=== PATIENT | female | born 1940 ===

== ENCOUNTER 2016-11-04 03:01 | Inpatient (IN) | payer MEDICARE ==
[2016-11-04 03:01] VITALS: BMI 22.1
[2016-11-04] MEDS ORDERED: Sodium Chloride 0.9% 250 ML IV STA (03:19)
[2016-11-04] MEDS ORDERED: Piperacillin/Tazobact 3.375 GM in Sodium Chloride 0.9% 100 ML IVPB STA (03:27)
[2016-11-04] MEDS ORDERED: Gentamicin 80mg/50ml NS 50 ML IVPB STA (03:27)
[2016-11-04] MEDS ORDERED: Piperacillin/Tazobact 3.375 gm Inj IVPB ONE (03:31)
[2016-11-04 03:36] LABS: VENOUS BLOOD GAS BASE EXCESS 5.9 mmol/L (0.0-2.0); VENOUS BLOOD GAS PCO2 39 mmHg (40-60); VENOUS BLOOD PH 7.49 (7.32-7.43)
[2016-11-04 04:06] LABS: CHLORIDE 99 mmol/L (98-107)
[2016-11-04 04:07] LABS: POTASSIUM 4.3 MMOL/L (3.6-5.0); SODIUM 140 mmol/l (132-148)
--- NOTE | 2016-11-04 04:07 | CP.PCM.CON ---
History of Present Illness - History of Present Illness History of Present Illness: Attending: Joana Rossi MD Nephrology: Dr Benedict Chief complaint: Fever/AMS HPI: The Hx is obtained from the patient and her don.76 years old female with hx of Dementia, Diverticulitis, with Permacath at the right chest and a recent placed A-v Fistula at the left forearm for ESRD on Hemodialysis M W F is brought to the ED by her son because of elevated body temperature, vomiting, worsening of her confusion. She refers no coughing, No chest pain, palpitations , Abdominal pain , diarrhea, She does urinate but no dysuria. She attended Dialysis on the day Prior to this admission. In the ED she had a Temperature of 102.9F and a HR of 107/min. The Lactate was 2.3 PMH: HTN; Diverticulitis; ESRD on HD M ; Migraine; Alzheimer's disease; HLD; Nephrolithiasis PSH: appendectomy; Tonsillectomy, 08/28/16 right upper chest wall Permacath placement; A-V fistula 10/12/16 at left forearm placement; hysterectomy SH; Denies Smoking; No alcohol; No illegal drug use; Live with son FH: No known family hx Allergies: NKDA Review of Systems - Review of Systems Systems not reviewed;Unavailable: Dementia, Altered Mental Status Review of Systems: review f system is limited because the patient suffers from dementia. - Constitutional Constitutional: Fever. absent: Anorexia, Chills, Fatigue - EENT Eyes: Requires Corrective Lenses. absent: Blurred Vision, Diplopia, Photophobia , Sees Flashes Ears: absent: Decreased Hearing, Ear Discharge, Tinnitus Nose/Mouth/Throat: absent: Epistaxis, Nasal Congestion, Nasal Discharge, Sinus Pain, Sinus Pressure, Sore Throat - Cardiovascular Cardiovascular: absent: Chest Pain, Dyspnea, Edema - Respiratory Respiratory: absent: Cough, Dyspnea, Wheezing, Stridor, Chest Congestion - Gastrointestinal Gastrointestinal: Vomiting. absent: Abdominal Pain, Constipation, Diarrhea - Genitourinary Genitourinary: absent: Dysuria, Flank Pain, Pyuria, Urinary Frequency - Musculoskeletal Musculoskeletal: Back Pain. absent: Muscle Cramps, Muscle Weakness - Neurological Neurological: absent: Dizziness, Focal Weakness, Vertigo Additional comments: Apparent pain to the left posterior auricular region; - Psychiatric Psychiatric: absent: Anxiety, Depression, Panic Attacks - Endocrine Endocrine: absent: Palpitations, Polydipsia - Hematologic/Lymphatic Hematologic: absent: Easy Bleeding, Easy Bruising Past Patient History - Infectious Disease Hx of Infectious Diseases: None - Tetanus Immunizations Tetanus Immunization: Unknown - Past Medical History & Family History Past Medical History?: Yes - Past Social History Smoking Status: Never Smoked Chewing Tobacco Use: No Cigar Use: No Alcohol: None Drugs: Denies Home Situation {Lives}: With Family - CARDIAC Hx Cardiac Disorders: Yes Hx Hypercholesterolemia: Yes Hx Hypertension: Yes - PULMONARY Hx Respiratory Disorders: No - NEUROLOGICAL Hx Neurological Disorder: Yes Hx Alzheimer's Disease: Yes Hx Migraine: Yes - HEENT Hx HEENT Problems: Yes Other/Comment: wears eye glasses. - RENAL Hx Chronic Kidney Disease: Yes Hx Kidney Stones: Yes - ENDOCRINE/METABOLIC Hx Endocrine Disorders: No - HEMATOLOGICAL/ONCOLOGICAL Hx Blood Disorders: Yes Hx AIDS: No Hx Anemia: Yes Hx Human Immunodeficiency Virus (HIV): No - INTEGUMENTARY Hx Dermatological Problems: No - MUSCULOSKELETAL/RHEUMATOLOGICAL Hx Musculoskeletal Disorders: Yes Hx Falls: Yes (2013) - GASTROINTESTINAL Hx Gastrointestinal Disorders: Yes Hx Diverticulitis: Yes - GENITOURINARY/GYNECOLOGICAL Hx Genitourinary Disorders: No - PSYCHIATRIC Hx Psychophysiologic Disorder: No Hx Emotional Abuse: No Hx Physical Abuse: No Hx Substance Use: No - SURGICAL HISTORY Hx Surgeries: Yes Hx Abdominal Aortic Aneurysm Repair: No Hx Appendectomy: Yes Hx Hysterectomy: Yes Hx Tonsillectomy: Yes Hx Vascular Access Device: Yes (PERMA CATH ) - ANESTHESIA Hx Anesthesia: Yes Hx Anesthesia Reactions: No Hx Malignant Hyperthermia: No Meds Allergies/Adverse Reactions: Allergies Allergy/AdvReac Type Severity Reaction Status Date / Time No Known Allergies Allergy Verified 11/04/16 03:07 - Medications Medications: Current Medications Vancomycin HCl 1 gm/ Sodium (Chloride) 250 mls @ 166.667 mls/hr IVPB STAT STA Stop: 11/04/16 04:56 Piperacillin Sod/Tazobactam (Sod 3.375 gm/ Sodium Chloride) 100 mls @ 100 mls/ hr IVPB STAT STA Stop: 11/04/16 04:26 Last Admin: 11/04/16 03:42 Dose: 100 mls/hr Gentamicin Sulfate/Sodium Chloride (Gentamicin 80mg/50ml Ns) 50 mls @ 50 mls/ hr IVPB STAT STA Stop: 11/04/16 04:26 Physical Exam - Constitutional Appears: No Acute Distress - Head Exam Head Exam: ATRAUMATIC, NORMAL INSPECTION, NORMOCEPHALIC Additional comments: holds the left back of neck constantly but refers no pain on palpation. - Eye Exam Eye Exam: EOMI Additional comments: Pupils 1mm reacting sluggish to light. - ENT Exam ENT Exam: Mucous Membranes Dry, Normal Exam. absent: Normal External Ear Exam, Normal Oropharynx Additional comments: Upper dentures in place. - Neck Exam Neck exam: Positive for: Full Rom. Negative for: Lymphadenopathy, Tenderness, Thyromegaly - Respiratory Exam Respiratory Exam: Clear to Auscultation Bilateral. absent: Rales, Rhonchi, Wheezes - Cardiovascular Exam Cardiovascular Exam: REGULAR RHYTHM, RRR, +S1, +S2. absent: Gallop, JVD - GI/Abdominal Exam GI & Abdominal Exam: Normal Bowel Sounds, Soft. absent: Mass, Organomegaly, Tenderness - Rectal Exam Rectal Exam: Deferred - Extremities Exam Extremities exam: Positive for: full ROM, normal inspection. Negative for: joint swelling, pedal edema - Back Exam Back exam: NORMAL INSPECTION Additional comments: Pain at the Thoraco-Lumbar spine while lying in bed, No Localization of pain on palpation - Neurological Exam Neurological exam: Alert, CN II-XII Intact, Oriented x3, Reflexes Normal - Psychiatric Exam Psychiatric exam: Normal Affect, Normal Mood - Skin Skin Exam: Dry, Intact, Warm Results - Vital Signs Recent Vital Signs: Last Vital Signs Temp 102.9 F H 11/04/16 03:45 Pulse 107 H 11/04/16 03:07 Resp 18 11/04/16 03:07 BP 185/80 H 11/04/16 03:07 Pulse Ox 99 11/04/16 03:07 - Labs Result Diagrams: 11/04/16 03:45 11/04/16 03:45 Labs: Laboratory Results - last 24 hr 11/04/16 03:32 pO2 49 VBG pH 7.49 H VBG pCO2 39 L VBG HCO3 29.3 VBG Total CO2 30.9 H VBG O2 Sat (Calc) 91.7 H VBG Base Excess 5.9 H VBG Potassium 4.2 Sodium 135.0 Chloride 102.0 Glucose 88 Lactate 2.3 H FiO2 21.0 Venous Blood Potassium 4.2 - Imaging and Cardiology CT scan - head Status: Image reviewed by me Additional comment: No bleed nor mass seen. Assessment & Plan - Assessment and Plan (Free Text) Assessment: #. Sepsis with etiology being Dialysis access vs Urinary tract #. AMS #. HTN uncontrolled #. ESRD On HD #. Back pain Plan: 76 years old female with hx of Permacath at the right chest and a recent placed A-v Fistula at the left forearm for ESRD on Hemodialysis is brought to the ED by her son because of elevated body temperature, vomiting,worsening of her confusion. No coughing, chest pain, palpitations, Abdominal pain , diarrhea , dysuria. She attended Dialysis on the day Prior to this admission. #. Sepsis with etiology being Dialysis access vs Urinary tract. Temperature in ED was 102.9F an da HR of 107/min. The lactic Acid was 2.3 - Consult ID Dr Hamilton - Patient received Vancomycin/ Gentamycin and Zosyn in the ED. Continue with Zosyn IV Q12hrs and Vancomycin on Dialysis days - follow blood and urine cultures - procalcitonin level #. AMS Due to worsening Dementia and Toxic encephalopathy - Treat sepsis #. HTN uncontrolled - Norvasc/ trandil/ Zestril/Apresoline - follow blood pressures #. ESRD On HD - Consult Dr Benedict for HD #. Back pain. consider Renal US as pte has Hx of Nephrolithiasis #. DVT prophylaxis with SCD #. Code Status Full - Date & Time Date: 11/04/16 Time: 04:07
[2016-11-04 04:09] LABS: ALB/GLOB RATIO 1.4 (1.0-2.1); ALKALINE PHOSPHATASE 99 U/L (38-126); ALT/SGPT 21 U/L (9-52); AST/SGOT 28 U/L (14-36); BILIRUBIN,TOTAL 0.6 mg/dl (0.2-1.3); BLOOD UREA NITROGEN 27 mg/dl (7-17); CARBON DIOXIDE 28 mmol/L (22-30); GFR AFRICAN-AMERICAN 21; GLUCOSE,RANDOM 88 mg/dL (65-105); TOTAL PROTEIN 7.3 G/DL (6.3-8.2)
[2016-11-04 04:10] LABS: CALCIUM 9.7 mg/dL (8.4-10.2); LIPASE 204 U/L (23-300)
[2016-11-04 04:11] LABS: BASO # 0.1 K/uL (0.0-0.2); BASO % 0.5 % (0.0-2.0); EOS # 0.1 K/uL (0.0-0.7); EOS % 0.9 % (0.0-4.0); HEMATOCRIT 38.9 % (34.0-47.0); LYMPH # 0.4 K/uL (1.0-4.3); LYMPH % 3.7 % (20.0-40.0); MEAN CELL VOLUME 87.7 fl (81.0-99.0); MEAN CORPUSCULAR HEMOGLOBIN 28.9 pg (27.0-31.0); MEAN PLATELET VOLUME 10.5 fl (7.2-11.7); MONO # 0.6 K/uL (0.0-0.8); MONO % 5.9 % (0.0-10.0); NEUT # 9.2 K/uL (1.8-7.0); RED CELL DISTRIBUTION WIDTH 14.3 % (11.5-14.5); WHITE BLOOD COUNT 10.3 K/uL (4.8-10.8)
[2016-11-04 04:12] LABS: PLATELET COUNT 81 K/uL (130-400)
[2016-11-04 04:15] LABS: PARTIAL THROMBOPLASTIN TIME 26.6 SECONDS (23.3-32.5)
--- NOTE | 2016-11-04 04:18 | ED PDOC ---
HPI: General Adult Time Seen by Provider: 11/04/16 03:03 Chief Complaint (Nursing): Altered Mental Status Chief Complaint (Provider): Fever History Per: Patient, Family (son) History/Exam Limitations: no limitations Onset/Duration Of Symptoms: Hrs (x1 hour) Have you had recent travel within the past 21 days to any of the following countries: [place], [place], [place] or [place]?: No Current Symptoms Are (Timing): Still Present Severity: Moderate Additional Complaint(s): Saba Cohen is a 76 year female, accompanied by her son, with a past medical history of hypertension, end stage renal disease, diverticulosis, and Alzheimer's disease, who presents to the emergency department via EMS for the evaluation of a fever, that the patient has been experiencing for one hour. Patient has had multiple dialysis graft surgeries in the past and currently has a dialysis catheter inserted to the right side of her anterior chest wall, which she reports pruritic symptoms to. Associated chills, nausea, and (x1) non- bloody/bilious vomiting is currently present. Of note, patient had her normal dialysis treatment yesterday and is scheduled for followups every Sunday, Sunday, and . PMD: Dr. Guzman Moss Past Medical History Reviewed: Historical Data, Nursing Documentation, Vital Signs Vital Signs: Last Vital Signs Temp 102.9 F H 11/04/16 03:45 Pulse 107 H 11/04/16 03:07 Resp 18 11/04/16 03:07 BP 185/80 H 11/04/16 03:07 Pulse Ox 99 11/04/16 04:24 - Medical History PMH: Alzheimer's Disease, Anemia, Diverticulitis, HTN, Hypercholesterolemia, Kidney Stones, Migraine, End Stage Renal Disease, Chronic Kidney Disease Denies: HIV - Surgical History Surgical History: Appendectomy, Tonsillectomy Other surgeries: Multiple Dialysis Graft Surgeries - Family History Family History: States: Hypertension - Social History Current smoker - smoking cessation education provided: No Ex-Smoker (has not smoked in the last 12 months): No Alcohol: None Drugs: Denies - Immunization History Hx Tetanus Toxoid Vaccination: No Hx Influenza Vaccination: No Hx Pneumococcal Vaccination: No - Home Medications Home Medications: Ambulatory Orders Medication Instructions Recorded Aspirin [Ecotrin] 81 mg PO DAILY 08/16/16 Atorvastatin [Lipitor] 20 mg PO DAILY 08/16/16 Calcitriol [Rocaltrol] 0.25 mcg PO DAILY 08/16/16 Calcium Acetate [Phoslo] 667 mg PO BID 08/16/16 Donepezil [Aricept] 10 mg PO DAILY 08/16/16 Labetalol [Trandate] 100 mg PO BID 08/16/16 Lisinopril [Zestril] 5 mg PO DAILY 08/16/16 Memantine [Namenda] 5 mg PO DAILY 08/16/16 Vitamin B Complex/Vit C/Folic 1 tab PO DAILY 08/16/16 [Nephro-Valentino] amLODIPine [Norvasc] 10 mg PO DAILY 08/16/16 hydrALAZINE [Apresoline] 50 mg PO TID 08/16/16 Prednisone [Deltasone] 20 mg PO TID #18 tablet 08/29/16 hydrOXYzine HCl [Atarax] 25 mg PO TID #60 tab 08/29/16 - Allergies Allergies/Adverse Reactions: Allergies Allergy/AdvReac Type Severity Reaction Status Date / Time No Known Allergies Allergy Verified 11/04/16 03:07 Review of Systems ROS Statement: Except As Marked, All Systems Reviewed And Found Negative Constitutional: Positive for: Fever, Chills Gastrointestinal: Positive for: Nausea, Vomiting. Negative for: Hematochezia, Hematemesis Physical Exam - Reviewed Nursing Documentation Reviewed: Yes Vital Signs Reviewed: Yes - Physical Exam Appears: Positive for: Non-toxic, No Acute Distress Head Exam: Positive for: ATRAUMATIC, NORMOCEPHALIC Skin: Positive for: Normal Color, Warm, Dry Eye Exam: Positive for: Normal appearance, EOMI, PERRL Neck: Positive for: Normal, Painless ROM Cardiovascular/Chest: Positive for: Chest Non Tender (dialysis catheter inserted to anterior chest wall, erythematous and pruritic symptoms to site of catheterization), Tachycardia, Other (hypertensive). Negative for: Regular Rate , Rhythm Respiratory: Positive for: Normal Breath Sounds. Negative for: Respiratory Distress Gastrointestinal/Abdominal: Positive for: Normal Exam, Soft. Negative for: Tenderness Back: Positive for: Normal Inspection. Negative for: L CVA Tenderness, R CVA Tenderness Extremity: Positive for: Normal ROM. Negative for: Tenderness, Swelling Neurologic/Psych: Positive for: Alert, Oriented - Laboratory Results Result Diagrams: 11/04/16 03:45 04/22/17 03:45 - ECG O2 Sat by Pulse Oximetry: 99 (RA) Pulse Ox Interpretation: Normal - Critical Care Total Time (In Min): 60 Medical Decision Making Medical Decision Makin:03 Initial Impression: 76 year old female with a setting of known dialysis, cellulitic appearance at site of catheterization. Initial Plan: * CT Head w/o Contrast * CXR * EKG * Venous Blood Gas Shock Panel * CBC * CMP * PT/PTT * Troponin I * Accucheck * Lactic Acid, Plasma * Lipase * Blood Culture * Urine Dip * Urinalysis * Urine Culture * Influenza A/B * Gentamicin 80mg/50ml NS 50 ml IVPB * Sodium Chloride 0.9% 250 ml IV, 250 mls/hr * Acetaminophen 650 mg PO * Vancomycin 1 gm * Zosyn 3.375 gm * Ondansetron 3 mg IV * Infectious Disease Consult Routine * Call ID Consult [id number] Lactate level is at 2.3, activated code sepsis. 03:52 Dr. Hamilton concurs with the antibiotics choice and will consult on patient. 03:[address] Okeefe about ICU placement. Case discussed with J Carlos Huertas Nurse Practitioner. 04:45 Labs reviewed, significant elevated BUN and creatinine; however, this is baseline for the patient due to her end stage renal disease. 04:50 Upon provider reevaluation patient is stable for admission and requires further treatment in the emergency department at this time. Patient will be admitted under J Carlos Huertas, Nurse Practitioner. Counseling was provided and all questions were answered regarding diagnosis. Patient is in agreement with provider's admission plan. Clinical Impression: Sepsis, End Stage Renal Disease, Anterior Chest Wall Cellulitis, condition is guarded. Scribe Attestation: Documented by El Mccarthy, acting as a scribe for Scotty Floyd MD. Provider Scribe Attestation: All medical record entries made by the Scribe were at my direction and personally dictated by me. I have reviewed the chart and agree that the record accurately reflects my personal performance of the history, physical exam, medical decision making, and the department course for this patient. I have also personally directed, reviewed, and agree with the discharge instructions and disposition. Disposition - Clinical Impression Clinical Impression: Sepsis, End stage renal disease, Cellulitis of chest wall - Patient ED Disposition Is Patient to be Admitted: Yes - Disposition Disposition Time: 04:50 Condition: FAIR
[2016-11-04] MEDS ORDERED: Gentamicin 80 mg/2mL Inj. ONE (04:57)
[2016-11-04 05:01] LABS: NEUTROPHIL 94 % (42-75); TOTAL CELLS COUNTED 100
--- NOTE | 2016-11-04 06:22 | CT ---
EXAM: CT Head Without Intravenous Contrast CLINICAL HISTORY: 76 years old, female; Pain; Headache; Tension TECHNIQUE: Axial computed tomography images of the head/brain without intravenous contrast. This CT exam was performed using one or more of the following dose reduction techniques: automated exposure control, adjustment of the mA and/or kV according to patient size, and/or use of iterative reconstruction technique. Coronal and sagittal reformatted images were created and reviewed. EXAM DATE/TIME: 11/04/2016 4:01 AM COMPARISON: No relevant prior studies available. FINDINGS: LIMITATIONS: Exam is limited by significant streak/motion artifact. BRAIN: Focal area of low density is seen in the right basal ganglia, which has an appearance most compatible with an old/chronic lacunar infarct. Physiologic basal ganglia calcification. Areas of hypodensity in the white matter bilaterally, nonspecific in appearance, but most likely representing moderate chronic small vessel ischemic changes. Diffuse, age-related cortical atrophy and ventriculomegaly. No definite acute abnormality identified. No definite acute hemorrhage seen within the brain. No definite acute extra-axial fluid collections visualized. No evidence of significant mass effect within the brain. VENTRICLES: See above. BONES/JOINTS: No acute fractures or other acute bony abnormality noted. SOFT TISSUES: No acute abnormality of the visualized soft tissues is seen. SINUSES: Visualized paranasal sinuses appear clear. MASTOID AIR CELLS: Mastoid air cells appear clear. IMPRESSION: - No definite acute findings seen within the brain. Exam is limited by motion artifact, however. - See above for remaining findings.
[2016-11-04 06:31] LABS: MEAN CELL VOLUME 88.6 fl (81.0-99.0); MEAN CORPUSCULAR HEMOGLOBIN 28.7 pg (27.0-31.0); MEAN CORPUSCULAR HGB CONC 32.4 g/dL (33.0-37.0); RED CELL DISTRIBUTION WIDTH 14.2 % (11.5-14.5); WHITE BLOOD COUNT 13.9 K/uL (4.8-10.8)
--- NOTE | 2016-11-04 08:44 | CP.CCUPN ---
CCU Subjective - Physician Review Events Since Last Encounter (Free Text): 11/04/16 08:42 Patient awake, no distress, no hypotension, move all extremities, follow simple commands, events reviewed CCU Objective - Vital Signs / Intake & Output Vital Signs (Last 4 hours): Vital Signs Temp Pulse Pulse Resp BP Pulse Ox 11/04/16 05:47 99.3 F 96 H 96 H 20 128/65 94 L 11/04/16 05:24 100.2 F H 100 H 20 130/57 L 11/04/16 05:00 99 11/04/16 05:00 100.2 F H 100 H 20 130/57 L 95 11/04/16 04:45 100.2 F H Intake and Output (Last 8hrs): Intake & Output 11/03/16 11/04/16 11/04/16 22:59 06:59 14:59 Intake Total 350 Balance 350 Intake: Intake, Piggyback 250 Oral 100 - Physical Exam Head: Positive for: Atraumatic, Normocephalic Pupils: Positive for: PERRL Extroacular Muscles: Positive for: EOMI Conjunctiva: Positive for: Normal Ears: Positive for: Normal Mouth: Positive for: Moist Mucous Membranes Pharnyx: Positive for: Normal Nose (External): Positive for: Atraumatic Neck: Positive for: Normal Range of Motion Respiratory/Chest: Positive for: Clear to Auscultation Cardiovascular: Positive for: Regular Rate and Rhythm Abdomen: Positive for: Normal Bowel Sounds Upper Extremity: Positive for: Normal Inspection Lower Extremity: Positive for: Normal Inspection Neurological: Positive for: Other (awake, alert, move all extremities) - Medications Active Medications: Active Medications Generic Name Dose Route Start Last Admin Trade Name Freq PRN Reason Stop Dose Admin Acetaminophen 650 mg 11/04/16 06:20 11/04/16 07:42 Tylenol 325mg Tab PO 650 mg Q6 PRN Administration Pain, moderate (4-7) Alprazolam 0.5 mg 11/04/16 06:08 Xanax PO TID PRN Anxiety Amlodipine Besylate 5 mg 11/04/16 09:00 Norvasc PO DAILY [facility] Aspirin 81 mg 11/04/16 09:00 Ecotrin PO DAILY [facility] Atorvastatin Calcium 20 mg 11/04/16 09:00 Lipitor PO DAILY [facility] Calcitriol 0.25 mcg 11/06/16 09:00 Rocaltrol PO MWF [facility] Calcium Acetate 1,334 mg 11/04/16 09:00 Phoslo PO TID [facility] Donepezil HCl 10 mg 11/04/16 09:00 Aricept PO DAILY [facility] Hydralazine HCl 25 mg 11/04/16 09:00 Apresoline PO BID [facility] Vancomycin HCl 1 gm/ Sodium 250 mls @ 125 mls/hr 11/06/16 09:00 Chloride IVPB MWF [facility] Piperacillin Sod/Tazobactam 100 mls @ 100 mls/hr 11/04/16 21:00 Sod 2.25 gm/ Sodium Chloride IVPB Q12 [facility] Labetalol HCl 100 mg 11/04/16 09:00 Trandate PO BID [facility] Lisinopril 5 mg 11/04/16 09:00 Zestril PO DAILY [facility] Mirtazapine 7.5 mg 11/04/16 22:00 Remeron PO HS [facility] Ondansetron HCl 4 mg 11/04/16 06:20 Zofran Inj IVP Q6 PRN Nausea/Vomiting Vitamin B Complex/Vit C/Folic Acid 1 tab 11/04/16 09:00 Nephro-Valentino PO DAILY [facility] - Patient Studies Lab Studies: Lab Studies 11/04/16 11/04/16 11/04/16 Range/Units 06:25 03:45 03:40 WBC 13.9 H 10.3 (4.8-10.8) K/uL RBC 4.18 4.43 (3.80-5.20) Mil/uL Hgb 12.0 12.8 D (12.0-16.0) g/dL Hct 37.0 38.9 (34.0-47.0) % MCV 88.6 87.7 (81.0-99.0) fl MCH 28.7 28.9 (27.0-31.0) pg MCHC 32.4 L 33.0 (33.0-37.0) g/dL RDW 14.2 14.3 (11.5-14.5) % Plt Count 86 L 81 L D (130-400) K/uL MPV 10.5 (7.2-11.7) fl Neut % (Auto) 89.0 H (50.0-75.0) % Lymph % (Auto) 3.7 L (20.0-40.0) % [place] % (Auto) 5.9 (0.0-10.0) % Eos % (Auto) 0.9 (0.0-4.0) % Baso % (Auto) 0.5 (0.0-2.0) % Neut # 9.2 H (1.8-7.0) K/uL Lymph # 0.4 L (1.0-4.3) K/uL [place] # 0.6 (0.0-0.8) K/uL Eos # 0.1 (0.0-0.7) K/uL Baso # 0.1 (0.0-0.2) K/uL Neutrophils % (Manual) 94 H (42-75) % Lymphocytes % (Manual) 3 L (20-50) % Monocytes % (Manual) 3 (0-10) % Platelet Estimate Decreased L (NORMAL) PT 10.2 (9.6-11.2) SECONDS INR 0.98 (0.92-1.08) APTT 26.6 (23.3-32.5) SECONDS pO2 (30-55) mm/Hg VBG pH (7.32-7.43) VBG pCO2 (40-60) mmHg VBG HCO3 mmol/L VBG Total CO2 (22-28) mmol/L VBG O2 Sat (Calc) (40-65) % VBG Base Excess (0.0-2.0) mmol/L VBG Potassium (3.6-5.2) mmol/L Glucose (65-105) mg/dL Lactate (0.7-2.1) mmol/L FiO2 % Sodium 140 (132-148) mmol/l Potassium 4.3 (3.6-5.0) MMOL/L Chloride 99 (98-107) mmol/L Carbon Dioxide 28 (22-30) mmol/L Anion Gap 17 (10-20) BUN 27 H (7-17) mg/dl Creatinine 2.7 H (0.7-1.2) mg/dL Est GFR ( Amer) 21 Est GFR (Non-Af Amer) 17 Random Glucose 88 (65-105) mg/dL Lactic Acid 1.0 (0.7-2.1) MMOL/L Calcium 9.7 (8.4-10.2) mg/dL Total Bilirubin 0.6 (0.2-1.3) mg/dl AST 28 (14-36) U/L ALT 21 (9-52) U/L Alkaline Phosphatase 99 (38-126) U/L Troponin I < 0.0120 (0.00-0.120) ng/mL Total Protein 7.3 (6.3-8.2) G/DL Albumin 4.2 (3.5-5.0) g/dL Globulin 3.1 (2.2-3.9) gm/dL Albumin/Globulin Ratio 1.4 (1.0-2.1) Lipase 204 (23-300) U/L Venous Blood Potassium (3.6-5.2) mmol/L Influenza Typ A,B (EIA) Negative for flu a/b (NEGATIVE) 11/04/16 Range/Units 03:32 WBC (4.8-10.8) K/uL RBC (3.80-5.20) Mil/uL Hgb (12.0-16.0) g/dL Hct (34.0-47.0) % MCV (81.0-99.0) fl MCH (27.0-31.0) pg MCHC (33.0-37.0) g/dL RDW (11.5-14.5) % Plt Count (130-400) K/uL MPV (7.2-11.7) fl Neut % (Auto) (50.0-75.0) % Lymph % (Auto) (20.0-40.0) % [place] % (Auto) (0.0-10.0) % Eos % (Auto) (0.0-4.0) % Baso % (Auto) (0.0-2.0) % Neut # (1.8-7.0) K/uL Lymph # (1.0-4.3) K/uL [place] # (0.0-0.8) K/uL Eos # (0.0-0.7) K/uL Baso # (0.0-0.2) K/uL Neutrophils % (Manual) (42-75) % Lymphocytes % (Manual) (20-50) % Monocytes % (Manual) (0-10) % Platelet Estimate (NORMAL) PT (9.6-11.2) SECONDS INR (0.92-1.08) APTT (23.3-32.5) SECONDS pO2 49 (30-55) mm/Hg VBG pH 7.49 H (7.32-7.43) VBG pCO2 39 L (40-60) mmHg VBG HCO3 29.3 mmol/L VBG Total CO2 30.9 H (22-28) mmol/L VBG O2 Sat (Calc) 91.7 H (40-65) % VBG Base Excess 5.9 H (0.0-2.0) mmol/L VBG Potassium 4.2 (3.6-5.2) mmol/L Glucose 88 (65-105) mg/dL Lactate 2.3 H (0.7-2.1) mmol/L FiO2 21.0 % Sodium 135.0 (132-148) mmol/l Potassium (3.6-5.0) MMOL/L Chloride 102.0 (98-107) mmol/L Carbon Dioxide (22-30) mmol/L Anion Gap (10-20) BUN (7-17) mg/dl Creatinine (0.7-1.2) mg/dL Est GFR ( Amer) Est GFR (Non-Af Amer) Random Glucose (65-105) mg/dL Lactic Acid (0.7-2.1) MMOL/L Calcium (8.4-10.2) mg/dL Total Bilirubin (0.2-1.3) mg/dl AST (14-36) U/L ALT (9-52) U/L Alkaline Phosphatase (38-126) U/L Troponin I (0.00-0.120) ng/mL Total Protein (6.3-8.2) G/DL Albumin (3.5-5.0) g/dL Globulin (2.2-3.9) gm/dL Albumin/Globulin Ratio (1.0-2.1) Lipase (23-300) U/L Venous Blood Potassium 4.2 (3.6-5.2) mmol/L Influenza Typ A,B (EIA) (NEGATIVE) Laboratory Results - last 24 hr 11/04/16 11/04/16 11/04/16 03:32 03:40 03:45 WBC 10.3 RBC 4.43 Hgb 12.8 D Hct 38.9 MCV 87.7 MCH 28.9 MCHC 33.0 RDW 14.3 Plt Count 81 L D MPV 10.5 Neut % (Auto) 89.0 H Lymph % (Auto) 3.7 L [place] % (Auto) 5.9 Eos % (Auto) 0.9 Baso % (Auto) 0.5 Neut # 9.2 H Lymph # 0.4 L [place] # 0.6 Eos # 0.1 Baso # 0.1 Neutrophils % (Manual) 94 H Lymphocytes % (Manual) 3 L Monocytes % (Manual) 3 Platelet Estimate Decreased L PT 10.2 INR 0.98 APTT 26.6 pO2 49 VBG pH 7.49 H VBG pCO2 39 L VBG HCO3 29.3 VBG Total CO2 30.9 H VBG O2 Sat (Calc) 91.7 H VBG Base Excess 5.9 H VBG Potassium 4.2 Sodium 135.0 140 Chloride 102.0 99 Glucose 88 Lactate 2.3 H FiO2 21.0 Potassium 4.3 Carbon Dioxide 28 Anion Gap 17 BUN 27 H Creatinine 2.7 H Est GFR ( Amer) 21 Est GFR (Non-Af Amer) 17 Random Glucose 88 Lactic Acid Calcium 9.7 Total Bilirubin 0.6 AST 28 ALT 21 Alkaline Phosphatase 99 Troponin I < 0.0120 Total Protein 7.3 Albumin 4.2 Globulin 3.1 Albumin/Globulin Ratio 1.4 Lipase 204 Venous Blood Potassium 4.2 Influenza Typ A,B (EIA) Negative for flu a/b 11/04/16 06:25 WBC 13.9 H RBC 4.18 Hgb 12.0 Hct 37.0 MCV 88.6 MCH 28.7 MCHC 32.4 L RDW 14.2 Plt Count 86 L MPV Neut % (Auto) Lymph % (Auto) [place] % (Auto) Eos % (Auto) Baso % (Auto) Neut # Lymph # [place] # Eos # Baso # Neutrophils % (Manual) Lymphocytes % (Manual) Monocytes % (Manual) Platelet Estimate PT INR APTT pO2 VBG pH VBG pCO2 VBG HCO3 VBG Total CO2 VBG O2 Sat (Calc) VBG Base Excess VBG Potassium Sodium Chloride Glucose Lactate FiO2 Potassium Carbon Dioxide Anion Gap BUN Creatinine Est GFR ( Amer) Est GFR (Non-Af Amer) Random Glucose Lactic Acid 1.0 Calcium Total Bilirubin AST ALT Alkaline Phosphatase Troponin I Total Protein Albumin Globulin Albumin/Globulin Ratio Lipase Venous Blood Potassium Influenza Typ A,B (EIA) Fingerstick Blood Sugar Results: 87 Critical Care Progress Note - Nutrition Nutrition: Nutrition Category Date Time Status Renal Diet [DIET] Diets 11/04/16 Breakfast Active Assessment/Plan - Assessment and Plan (Free Text) Assessment: A/P ?sepsis unclear etiology, ESRD on dialysis, HTN, AMS, dementia - Continue antibiotics - ID consult follow up - Follow up cultures - Dialysis as per renal
--- NOTE | 2016-11-04 08:52 | CP.PCM.HP ---
History of Present Illness - History of Present Illness History of Present Illness: pt presents for chest wall cellulitis, ?? dialysis access cellulitis and sepsis. c/o itchiness to site. no f/c, n/v/d. has 1x episode of n/v yesterday. bw anoted. + lactate level. vss. nephro-duong, ID-estelle. daughter aat bedside. Present on Admission - Present on Admission Any Indicators Present on Admission: No Review of Systems - Gastrointestinal Gastrointestinal: As Per HPI, Nausea, Vomiting - Integumentary Integumentary: As Per HPI, Erythema Past Patient History - Infectious Disease Hx of Infectious Diseases: None - Tetanus Immunizations Tetanus Immunization: Unknown - Past Medical History & Family History Past Medical History?: Yes - Past Social History Smoking Status: Never Smoked Chewing Tobacco Use: No Cigar Use: No Alcohol: None Drugs: Denies Home Situation {Lives}: With Family - CARDIAC Hx Cardiac Disorders: Yes Hx Hypercholesterolemia: Yes Hx Hypertension: Yes - PULMONARY Hx Respiratory Disorders: No - NEUROLOGICAL Hx Neurological Disorder: Yes Hx Alzheimer's Disease: Yes Hx Migraine: Yes - HEENT Hx HEENT Problems: Yes Other/Comment: wears eye glasses. - RENAL Hx Chronic Kidney Disease: Yes Hx Kidney Stones: Yes - ENDOCRINE/METABOLIC Hx Endocrine Disorders: No - HEMATOLOGICAL/ONCOLOGICAL Hx Blood Disorders: Yes Hx AIDS: No Hx Anemia: Yes Hx Human Immunodeficiency Virus (HIV): No - INTEGUMENTARY Hx Dermatological Problems: No - MUSCULOSKELETAL/RHEUMATOLOGICAL Hx Musculoskeletal Disorders: Yes Hx Falls: Yes (2013) - GASTROINTESTINAL Hx Gastrointestinal Disorders: Yes Hx Diverticulitis: Yes - GENITOURINARY/GYNECOLOGICAL Hx Genitourinary Disorders: No - PSYCHIATRIC Hx Psychophysiologic Disorder: No Hx Emotional Abuse: No Hx Physical Abuse: No Hx Substance Use: No - SURGICAL HISTORY Hx Surgeries: Yes Hx Abdominal Aortic Aneurysm Repair: No Hx Appendectomy: Yes Hx Hysterectomy: Yes Hx Tonsillectomy: Yes Hx Vascular Access Device: Yes (PERMA CATH ) - ANESTHESIA Hx Anesthesia: Yes Hx Anesthesia Reactions: No Hx Malignant Hyperthermia: No Meds Allergies/Adverse Reactions: Allergies Allergy/AdvReac Type Severity Reaction Status Date / Time No Known Allergies Allergy Verified 11/04/16 03:07 Physical Exam - Constitutional Appears: Well, Non-toxic, No Acute Distress - Head Exam Head Exam: ATRAUMATIC, NORMAL INSPECTION, NORMOCEPHALIC - Eye Exam Eye Exam: EOMI, Normal appearance, PERRL Pupil Exam: NORMAL ACCOMODATION, PERRL - ENT Exam ENT Exam: Mucous Membranes Moist, Normal Exam - Neck Exam Neck exam: Positive for: Normal Inspection - Respiratory Exam Respiratory Exam: Clear to Auscultation Bilateral, NORMAL BREATHING PATTERN - Cardiovascular Exam Cardiovascular Exam: REGULAR RHYTHM, RRR, +S1, +S2 - GI/Abdominal Exam GI & Abdominal Exam: Normal Bowel Sounds, Soft. absent: Tenderness - Extremities Exam Extremities exam: Positive for: full ROM, normal capillary refill, normal inspection, pedal pulses present - Back Exam Back exam: FULL ROM, NORMAL INSPECTION - Neurological Exam Neurological exam: Alert, CN II-XII Intact, Normal Gait, Oriented x3, Reflexes Normal - Psychiatric Exam Psychiatric exam: Normal Affect, Normal Mood - Skin Skin Exam: Dry, Intact, Normal Color, Warm Results - Vital Signs Recent Vital Signs: Last Vital Signs Temp 99.3 F 11/04/16 05:47 Pulse 96 H 11/04/16 05:47 Resp 20 11/04/16 05:47 BP 128/65 11/04/16 05:47 Pulse Ox 94 L 11/04/16 05:47 - Labs Result Diagrams: 11/04/16 06:25 11/04/16 03:45 Labs: Laboratory Results - last 24 hr 11/04/16 11/04/16 11/04/16 03:32 03:40 03:45 WBC 10.3 RBC 4.43 Hgb 12.8 D Hct 38.9 MCV 87.7 MCH 28.9 MCHC 33.0 RDW 14.3 Plt Count 81 L D MPV 10.5 Neut % (Auto) 89.0 H Lymph % (Auto) 3.7 L [place] % (Auto) 5.9 Eos % (Auto) 0.9 Baso % (Auto) 0.5 Neut # 9.2 H Lymph # 0.4 L [place] # 0.6 Eos # 0.1 Baso # 0.1 Neutrophils % (Manual) 94 H Lymphocytes % (Manual) 3 L Monocytes % (Manual) 3 Platelet Estimate Decreased L PT 10.2 INR 0.98 APTT 26.6 pO2 49 VBG pH 7.49 H VBG pCO2 39 L VBG HCO3 29.3 VBG Total CO2 30.9 H VBG O2 Sat (Calc) 91.7 H VBG Base Excess 5.9 H VBG Potassium 4.2 Sodium 135.0 140 Chloride 102.0 99 Glucose 88 Lactate 2.3 H FiO2 21.0 Potassium 4.3 Carbon Dioxide 28 Anion Gap 17 BUN 27 H Creatinine 2.7 H Est GFR ( Amer) 21 Est GFR (Non-Af Amer) 17 Random Glucose 88 Lactic Acid Calcium 9.7 Total Bilirubin 0.6 AST 28 ALT 21 Alkaline Phosphatase 99 Troponin I < 0.0120 Total Protein 7.3 Albumin 4.2 Globulin 3.1 Albumin/Globulin Ratio 1.4 Lipase 204 Venous Blood Potassium 4.2 Influenza Typ A,B (EIA) Negative for flu a/b 11/04/16 06:25 WBC 13.9 H RBC 4.18 Hgb 12.0 Hct 37.0 MCV 88.6 MCH 28.7 MCHC 32.4 L RDW 14.2 Plt Count 86 L MPV Neut % (Auto) Lymph % (Auto) [place] % (Auto) Eos % (Auto) Baso % (Auto) Neut # Lymph # [place] # Eos # Baso # Neutrophils % (Manual) Lymphocytes % (Manual) Monocytes % (Manual) Platelet Estimate PT INR APTT pO2 VBG pH VBG pCO2 VBG HCO3 VBG Total CO2 VBG O2 Sat (Calc) VBG Base Excess VBG Potassium Sodium Chloride Glucose Lactate FiO2 Potassium Carbon Dioxide Anion Gap BUN Creatinine Est GFR ( Amer) Est GFR (Non-Af Amer) Random Glucose Lactic Acid 1.0 Calcium Total Bilirubin AST ALT Alkaline Phosphatase Troponin I Total Protein Albumin Globulin Albumin/Globulin Ratio Lipase Venous Blood Potassium Influenza Typ A,B (EIA) Assessment & Plan (1) Cellulitis of chest wall Assessment and Plan: autumn dempsey ID f/u c/s stable for tele d/c w/ icu attending topical steroid Status: Acute (2) End stage renal disease Assessment and Plan: neprho, cont dialysis schedule ?? need to change dialysis access Status: Acute (3) Sepsis Assessment and Plan: f/u c/s ID Status: Acute (4) DVT prophylaxis Assessment and Plan: scd and ae hose hold anticoag for now-will confirm if pt gets heparin w/ dialysis Status: Acute Decision To Admit - Pt Status Changed To: Hospital Disposition Of: Inpatient - Admit Certification Admit to Inpatient:: After my assessment, the patient will require hospitalization for at least two midnights. This is because of the severity of symptoms shown, intensity of services needed, and/or the medical risk in this patient being treated as an outpatient. - . Bed Request Type: Intensive Care Admitting Physician: Enid Bernard
[2016-11-04] MEDS ORDERED: [UNRECOGNIZED DRUG - REMARK] PO SCH (09:00)
[2016-11-04] MEDS: Multivitamin Vitamin B Complex (Nephro-Vite) Tab PO SCH (09:28)
--- NOTE | 2016-11-04 10:15 | RAD ---
HISTORY: Fever COMPARISON: 08/24/2016. FINDINGS: The right-sided dual lumen catheter terminates at the cavoatrial junction. LUNGS: The lungs are well inflated and clear. PLEURA: No significant pleural effusion identified, no pneumothorax apparent. CARDIOVASCULAR: There is mild cardiomegaly. Atherosclerotic aortic arch calcifications are present. OSSEOUS STRUCTURES: No significant abnormalities. VISUALIZED UPPER ABDOMEN: Normal. OTHER FINDINGS: None. IMPRESSION: No acute findings.
--- NOTE | 2016-11-04 13:07 | CP.PCM.CON ---
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 Answers simple questions appropriatly Past Patient History - Infectious Disease Hx of Infectious Diseases: None - Tetanus Immunizations Tetanus Immunization: Unknown - Past Medical History & Family History Past Medical History?: Yes - Past Social History Smoking Status: Never Smoked Chewing Tobacco Use: No Cigar Use: No Alcohol: None Drugs: Denies Home Situation {Lives}: With Family - CARDIAC Hx Cardiac Disorders: Yes Hx Hypercholesterolemia: Yes Hx Hypertension: Yes - PULMONARY Hx Respiratory Disorders: No - NEUROLOGICAL Hx Neurological Disorder: Yes Hx Alzheimer's Disease: Yes Hx Migraine: Yes - HEENT Hx HEENT Problems: Yes Other/Comment: wears eye glasses. - RENAL Hx Chronic Kidney Disease: Yes Hx Dialysis: Yes (MWF) Type of Dialysis Access: Rt IJ perm cath Hx Kidney Stones: Yes - ENDOCRINE/METABOLIC Hx Endocrine Disorders: No - HEMATOLOGICAL/ONCOLOGICAL Hx Blood Disorders: Yes Hx AIDS: No Hx Anemia: Yes Hx Human Immunodeficiency Virus (HIV): No - INTEGUMENTARY Hx Dermatological Problems: No - MUSCULOSKELETAL/RHEUMATOLOGICAL Hx Musculoskeletal Disorders: Yes Hx Falls: Yes (2013) - GASTROINTESTINAL Hx Gastrointestinal Disorders: Yes Hx Diverticulitis: Yes - GENITOURINARY/GYNECOLOGICAL Hx Genitourinary Disorders: No - PSYCHIATRIC Hx Psychophysiologic Disorder: No Hx Emotional Abuse: No Hx Physical Abuse: No Hx Substance Use: No - SURGICAL HISTORY Hx Surgeries: Yes Hx Abdominal Aortic Aneurysm Repair: No Hx Appendectomy: Yes Hx Hysterectomy: Yes Hx Tonsillectomy: Yes Hx Vascular Access Device: Yes (PERMA CATH ) - ANESTHESIA Hx Anesthesia: Yes Hx Anesthesia Reactions: No Hx Malignant Hyperthermia: No Meds Allergies/Adverse Reactions: Allergies Allergy/AdvReac Type Severity Reaction Status Date / Time No Known Allergies Allergy Verified 11/04/16 03:07 - Medications Medications: Current Medications Acetaminophen (Tylenol 325mg Tab) 650 mg PO Q6 PRN PRN Reason: Pain, moderate (4-7) Last Admin: 11/04/16 07:42 Dose: 650 mg Alprazolam (Xanax) 0.5 mg PO TID PRN PRN Reason: Anxiety Amlodipine Besylate (Norvasc) 5 mg PO DAILY [facility] Last Admin: 11/04/16 09:28 Dose: 5 mg Aspirin (Ecotrin) 81 mg PO DAILY [facility] Last Admin: 11/04/16 09:28 Dose: 81 mg Atorvastatin Calcium (Lipitor) 20 mg PO DAILY [facility] Last Admin: 11/04/16 09:28 Dose: 20 mg Calcitriol (Rocaltrol) 0.25 mcg PO MWF [facility] Calcium Acetate (Phoslo) 1,334 mg PO TID [facility] Last Admin: 11/04/16 09:29 Dose: 1,334 mg Donepezil HCl (Aricept) 10 mg PO DAILY [facility] Last Admin: 11/04/16 09:28 Dose: 10 mg Hydralazine HCl (Apresoline) 25 mg PO BID [facility] Last Admin: 11/04/16 09:27 Dose: 25 mg Hydrocortisone (Hydrocortisone 2.5%) 1 applic TOP BID [facility] Vancomycin HCl 1 gm/ Sodium (Chloride) 250 mls @ 125 mls/hr IVPB MWF [facility] Piperacillin Sod/Tazobactam (Sod 2.25 gm/ Sodium Chloride) 100 mls @ 100 mls/ hr IVPB Q12 [facility] Ibuprofen (Motrin Tab) 400 mg PO Q8 PRN PRN Reason: PAIN LEVEL ABOVE 7 Last Admin: 11/04/16 12:00 Dose: 400 mg Labetalol HCl (Trandate) 100 mg PO BID [facility] Last Admin: 11/04/16 10:30 Dose: 100 mg Lisinopril (Zestril) 5 mg PO DAILY [facility] Last Admin: 11/04/16 10:30 Dose: 5 mg Mirtazapine (Remeron) 7.5 mg PO HS [facility] Ondansetron HCl (Zofran Inj) 4 mg IVP Q6 PRN PRN Reason: Nausea/Vomiting Triamcinolone Acetonide (Kenalog 0.1% Oint) 1 appl TOP BID [facility] Vitamin B Complex/Vit C/Folic Acid (Nephro-Valentino) 1 tab PO DAILY [facility] Last Admin: 11/04/16 09:28 Dose: 1 tab Physical Exam - Constitutional Appears: Non-toxic, Toxic - Head Exam Head Exam: ATRAUMATIC, NORMOCEPHALIC - Eye Exam Additional comments: No icterus - ENT Exam ENT Exam: Mucous Membranes Dry - Respiratory Exam Respiratory Exam: NORMAL BREATHING PATTERN Additional comments: Lungs clear - Cardiovascular Exam Cardiovascular Exam: REGULAR RHYTHM - GI/Abdominal Exam GI & Abdominal Exam: Soft Additional comments: Nontender - Extremities Exam Additional comments: o edema or cyanosis + bruit over AVF - Skin Additional comments: Rt cath site dressing clean Results - Vital Signs Recent Vital Signs: Last Vital Signs Temp 97.7 F 11/04/16 08:00 Pulse 83 11/04/16 10:30 Resp 20 11/04/16 10:00 BP 121/52 L 11/04/16 10:30 Pulse Ox 97 11/04/16 10:00 - Labs Result Diagrams: 11/04/16 06:25 11/04/16 03:45 Labs: Laboratory Results - last 24 hr 11/04/16 11/04/16 11/04/16 03:32 03:40 03:45 WBC 10.3 RBC 4.43 Hgb 12.8 D Hct 38.9 MCV 87.7 MCH 28.9 MCHC 33.0 RDW 14.3 Plt Count 81 L D MPV 10.5 Neut % (Auto) 89.0 H Lymph % (Auto) 3.7 L [place] % (Auto) 5.9 Eos % (Auto) 0.9 Baso % (Auto) 0.5 Neut # 9.2 H Lymph # 0.4 L [place] # 0.6 Eos # 0.1 Baso # 0.1 Neutrophils % (Manual) 94 H Lymphocytes % (Manual) 3 L Monocytes % (Manual) 3 Platelet Estimate Decreased L PT 10.2 INR 0.98 APTT 26.6 pO2 49 VBG pH 7.49 H VBG pCO2 39 L VBG HCO3 29.3 VBG Total CO2 30.9 H VBG O2 Sat (Calc) 91.7 H VBG Base Excess 5.9 H VBG Potassium 4.2 Sodium 135.0 140 Chloride 102.0 99 Glucose 88 Lactate 2.3 H FiO2 21.0 Potassium 4.3 Carbon Dioxide 28 Anion Gap 17 BUN 27 H Creatinine 2.7 H Est GFR ( Amer) 21 Est GFR (Non-Af Amer) 17 Random Glucose 88 Lactic Acid Calcium 9.7 Total Bilirubin 0.6 AST 28 ALT 21 Alkaline Phosphatase 99 Troponin I < 0.0120 Total Protein 7.3 Albumin 4.2 Globulin 3.1 Albumin/Globulin Ratio 1.4 Lipase 204 Venous Blood Potassium 4.2 Influenza Typ A,B (EIA) Negative for flu a/b 11/04/16 06:25 WBC 13.9 H RBC 4.18 Hgb 12.0 Hct 37.0 MCV 88.6 MCH 28.7 MCHC 32.4 L RDW 14.2 Plt Count 86 L MPV Neut % (Auto) Lymph % (Auto) [place] % (Auto) Eos % (Auto) Baso % (Auto) Neut # Lymph # [place] # Eos # Baso # Neutrophils % (Manual) Lymphocytes % (Manual) Monocytes % (Manual) Platelet Estimate PT INR APTT pO2 VBG pH VBG pCO2 VBG HCO3 VBG Total CO2 VBG O2 Sat (Calc) VBG Base Excess VBG Potassium Sodium Chloride Glucose Lactate FiO2 Potassium Carbon Dioxide Anion Gap BUN Creatinine Est GFR ( Amer) Est GFR (Non-Af Amer) Random Glucose Lactic Acid 1.0 Calcium Total Bilirubin AST ALT Alkaline Phosphatase Troponin I Total Protein Albumin Globulin Albumin/Globulin Ratio Lipase Venous Blood Potassium Influenza Typ A,B (EIA) Assessment & Plan - Assessment and Plan (Free Text) Assessment: Sepsis r/o line infection ESRD on HD Thrombocytopenia. monitor HTN dementia Plan: Blood curtures were done & Pt received, Vanco, Genta & Zosyn Continue Vanco & Genta with dialysis days ID consult is requested HD per schedule
--- NOTE | 2016-11-04 17:08 | CP.PCM.CON ---
History of Present Illness - History of Present Illness History of Present Illness: Pt with ESKD, with fever, chills, nausea and vomiting. Had multiple infection with catheter site in the past Past Patient History - Infectious Disease Hx of Infectious Diseases: None - Tetanus Immunizations Tetanus Immunization: Unknown - Past Medical History & Family History Past Medical History?: Yes - Past Social History Smoking Status: Never Smoked Chewing Tobacco Use: No Cigar Use: No Alcohol: None Drugs: Denies Home Situation {Lives}: With Family - CARDIAC Hx Cardiac Disorders: Yes Hx Hypercholesterolemia: Yes Hx Hypertension: Yes - PULMONARY Hx Respiratory Disorders: No - NEUROLOGICAL Hx Neurological Disorder: Yes Hx Alzheimer's Disease: Yes Hx Migraine: Yes - HEENT Hx HEENT Problems: Yes Other/Comment: wears eye glasses. - RENAL Hx Chronic Kidney Disease: Yes Hx Dialysis: Yes ([facility]) Type of Dialysis Access: Rt IJ perm cath Hx Kidney Stones: Yes - ENDOCRINE/METABOLIC Hx Endocrine Disorders: No - HEMATOLOGICAL/ONCOLOGICAL Hx Blood Disorders: Yes Hx AIDS: No Hx Anemia: Yes Hx Human Immunodeficiency Virus (HIV): No - INTEGUMENTARY Hx Dermatological Problems: No - MUSCULOSKELETAL/RHEUMATOLOGICAL Hx Musculoskeletal Disorders: Yes Hx Falls: Yes (2013) - GASTROINTESTINAL Hx Gastrointestinal Disorders: Yes Hx Diverticulitis: Yes - GENITOURINARY/GYNECOLOGICAL Hx Genitourinary Disorders: No - PSYCHIATRIC Hx Psychophysiologic Disorder: No Hx Emotional Abuse: No Hx Physical Abuse: No Hx Substance Use: No - SURGICAL HISTORY Hx Surgeries: Yes Hx Abdominal Aortic Aneurysm Repair: No Hx Appendectomy: Yes Hx Hysterectomy: Yes Hx Tonsillectomy: Yes Hx Vascular Access Device: Yes (PERMA CATH ) - ANESTHESIA Hx Anesthesia: Yes Hx Anesthesia Reactions: No Hx Malignant Hyperthermia: No Meds Allergies/Adverse Reactions: Allergies Allergy/AdvReac Type Severity Reaction Status Date / Time No Known Allergies Allergy Verified 11/04/16 03:07 - Medications Medications: Current Medications Acetaminophen (Tylenol 325mg Tab) 650 mg PO Q6 PRN PRN Reason: Pain, moderate (4-7) Last Admin: 11/04/16 07:42 Dose: 650 mg Alprazolam (Xanax) 0.5 mg PO TID PRN PRN Reason: Anxiety Amlodipine Besylate (Norvasc) 5 mg PO DAILY [facility] Last Admin: 11/04/16 09:28 Dose: 5 mg Aspirin (Ecotrin) 81 mg PO DAILY [facility] Last Admin: 11/04/16 09:28 Dose: 81 mg Atorvastatin Calcium (Lipitor) 20 mg PO DAILY [facility] Last Admin: 11/04/16 09:28 Dose: 20 mg Calcitriol (Rocaltrol) 0.25 mcg PO MWF [facility] Calcium Acetate (Phoslo) 1,334 mg PO TID [facility] Last Admin: 11/04/16 13:36 Dose: 1,334 mg Donepezil HCl (Aricept) 10 mg PO DAILY [facility] Last Admin: 11/04/16 09:28 Dose: 10 mg Hydralazine HCl (Apresoline) 25 mg PO BID [facility] Last Admin: 11/04/16 09:27 Dose: 25 mg Hydrocortisone (Hydrocortisone 2.5%) 1 applic TOP BID [facility] Last Admin: 11/04/16 13:36 Dose: 1 applic Vancomycin HCl 1 gm/ Sodium (Chloride) 250 mls @ 125 mls/hr IVPB MWF [facility] Piperacillin Sod/Tazobactam (Sod 2.25 gm/ Sodium Chloride) 100 mls @ 100 mls/ hr IVPB Q12 [facility] Ibuprofen (Motrin Tab) 400 mg PO Q8 PRN PRN Reason: PAIN LEVEL ABOVE 7 Last Admin: 11/04/16 12:00 Dose: 400 mg Labetalol HCl (Trandate) 100 mg PO BID [facility] Last Admin: 11/04/16 10:30 Dose: 100 mg Lisinopril (Zestril) 5 mg PO DAILY [facility] Last Admin: 11/04/16 10:30 Dose: 5 mg Mirtazapine (Remeron) 7.5 mg PO HS [facility] Ondansetron HCl (Zofran Inj) 4 mg IVP Q6 PRN PRN Reason: Nausea/Vomiting Triamcinolone Acetonide (Kenalog 0.1% Oint) 1 appl TOP BID [facility] Vitamin B Complex/Vit C/Folic Acid (Nephro-Valentino) 1 tab PO DAILY [facility] Last Admin: 11/04/16 09:28 Dose: 1 tab Physical Exam - Respiratory Exam Additional comments: Rt chest with cellulitis and insertion site with drainage of pus without expression. Results - Vital Signs Recent Vital Signs: Last Vital Signs Temp 98.9 F 11/04/16 16:23 Pulse 83 11/04/16 16:23 Resp 20 11/04/16 16:23 BP 118/48 L 11/04/16 16:23 Pulse Ox 95 11/04/16 16:23 - Labs Result Diagrams: 11/04/16 06:25 11/04/16 03:45 Labs: Laboratory Results - last 24 hr 11/04/16 11/04/16 11/04/16 03:32 03:40 03:45 WBC 10.3 RBC 4.43 Hgb 12.8 D Hct 38.9 MCV 87.7 MCH 28.9 MCHC 33.0 RDW 14.3 Plt Count 81 L D MPV 10.5 Neut % (Auto) 89.0 H Lymph % (Auto) 3.7 L Ralls % (Auto) 5.9 Eos % (Auto) 0.9 Baso % (Auto) 0.5 Neut # 9.2 H Lymph # 0.4 L Ralls # 0.6 Eos # 0.1 Baso # 0.1 Neutrophils % (Manual) 94 H Lymphocytes % (Manual) 3 L Monocytes % (Manual) 3 Platelet Estimate Decreased L PT 10.2 INR 0.98 APTT 26.6 pO2 49 VBG pH 7.49 H VBG pCO2 39 L VBG HCO3 29.3 VBG Total CO2 30.9 H VBG O2 Sat (Calc) 91.7 H VBG Base Excess 5.9 H VBG Potassium 4.2 Sodium 135.0 140 Chloride 102.0 99 Glucose 88 Lactate 2.3 H FiO2 21.0 Potassium 4.3 Carbon Dioxide 28 Anion Gap 17 BUN 27 H Creatinine 2.7 H Est GFR ( Amer) 21 Est GFR (Non-Af Amer) 17 Random Glucose 88 Lactic Acid Calcium 9.7 Total Bilirubin 0.6 AST 28 ALT 21 Alkaline Phosphatase 99 Troponin I < 0.0120 Total Protein 7.3 Albumin 4.2 Globulin 3.1 Albumin/Globulin Ratio 1.4 Lipase 204 Procalcitonin Venous Blood Potassium 4.2 Influenza Typ A,B (EIA) Negative for flu a/b 11/04/16 06:25 WBC 13.9 H RBC 4.18 Hgb 12.0 Hct 37.0 MCV 88.6 MCH 28.7 MCHC 32.4 L RDW 14.2 Plt Count 86 L MPV Neut % (Auto) Lymph % (Auto) Ralls % (Auto) Eos % (Auto) Baso % (Auto) Neut # Lymph # Ralls # Eos # Baso # Neutrophils % (Manual) Lymphocytes % (Manual) Monocytes % (Manual) Platelet Estimate PT INR APTT pO2 VBG pH VBG pCO2 VBG HCO3 VBG Total CO2 VBG O2 Sat (Calc) VBG Base Excess VBG Potassium Sodium Chloride Glucose Lactate FiO2 Potassium Carbon Dioxide Anion Gap BUN Creatinine Est GFR ( Amer) Est GFR (Non-Af Amer) Random Glucose Lactic Acid 1.0 Calcium Total Bilirubin AST ALT Alkaline Phosphatase Troponin I Total Protein Albumin Globulin Albumin/Globulin Ratio Lipase Procalcitonin 5.81 H Venous Blood Potassium Influenza Typ A,B (EIA) Assessment & Plan - Assessment and Plan (Free Text) Assessment: Infected portacath. Needs to be removed. d/w J Carlos. Continue Vancomycin 1 g iv MWF.and Zosyn 2.25 g iv q 12h in the meantime. F/u blood cultures
[2016-11-04] MEDS ORDERED: MIRTAZAPINE 7.5 MG PO SCH (22:00)
[2016-11-05 07:31] LABS: ALB/GLOB RATIO 1.2 (1.0-2.1); BILIRUBIN,TOTAL 0.9 mg/dl (0.2-1.3); CALCIUM 9.3 mg/dL (8.4-10.2); POTASSIUM 4.5 MMOL/L (3.6-5.0); TOTAL PROTEIN 6.2 G/DL (6.3-8.2)
[2016-11-05 07:33] LABS: BASO # 0.1 K/uL (0.0-0.2); BASO % 0.6 % (0.0-2.0); EOS # 0.2 K/uL (0.0-0.7); EOS % 1.7 % (0.0-4.0); HEMATOCRIT 36.8 % (34.0-47.0); LYMPH # 0.9 K/uL (1.0-4.3); LYMPH % 8.3 % (20.0-40.0); MEAN CELL VOLUME 88.2 fl (81.0-99.0); MEAN CORPUSCULAR HEMOGLOBIN 28.9 pg (27.0-31.0); MEAN CORPUSCULAR HGB CONC 32.8 g/dL (33.0-37.0); MEAN PLATELET VOLUME 11.1 fl (7.2-11.7); MONO # 1.1 K/uL (0.0-0.8); MONO % 10.1 % (0.0-10.0); NEUT # 8.6 K/uL (1.8-7.0); NEUT % 79.3 % (50.0-75.0); NRBC % 0.3 % (0.0-0.0); RED CELL DISTRIBUTION WIDTH 14.2 % (11.5-14.5); WHITE BLOOD COUNT 10.8 K/uL (4.8-10.8)
[2016-11-05] MEDS: Multivitamin Vitamin B Complex (Nephro-Vite) Tab PO SCH ×2 (08:54→09:26)
--- NOTE | 2016-11-05 09:24 | CP.PCM.PN ---
Subjective - Date & Time of Evaluation Date of Evaluation: 11/05/16 Time of Evaluation: 09:24 - Subjective Subjective: no complaints at [facility]. had paint o left posterior ear area yesterday relieved w/ tylenol/motrin. no pain at present. per son has had x "weeks" no f/c, n/v/d prelim b/c positive. pending sensitivity for r chest wall port removal-likely soure of infection/sepsis Objective - Vital Signs/Intake and Output Vital Signs (last 24 hours): Temp Pulse Resp BP Pulse Ox 97.4 F L 78 18 158/61 H 96 11/05/16 08:05 11/05/16 08:56 11/05/16 08:05 11/05/16 08:56 11/05/16 08:05 - Medications Medications: Current Medications Acetaminophen (Tylenol 325mg Tab) 650 mg PO Q6 PRN PRN Reason: Pain, moderate (4-7) Last Admin: 11/05/16 05:14 Dose: 650 mg Alprazolam (Xanax) 0.5 mg PO TID PRN PRN Reason: Anxiety Amlodipine Besylate (Norvasc) 5 mg PO DAILY [facility] Last Admin: 11/05/16 08:55 Dose: 5 mg Aspirin (Ecotrin) 81 mg PO DAILY [facility] Last Admin: 11/04/16 09:28 Dose: 81 mg Atorvastatin Calcium (Lipitor) 20 mg PO DAILY [facility] Last Admin: 11/04/16 09:28 Dose: 20 mg Calcitriol (Rocaltrol) 0.25 mcg PO [facility] [place]cium Acetate (Phoslo) 1,334 mg PO TID [facility] Last Admin: 11/05/16 08:56 Dose: Not Given Docusate Sodium (Colace) 100 mg PO BID [facility] Last Admin: 11/05/16 08:57 Dose: Not Given Donepezil HCl (Aricept) 10 mg PO DAILY [facility] Last Admin: 11/05/16 09:22 Dose: 10 mg Hydralazine HCl (Apresoline) 25 mg PO BID [facility] Last Admin: 11/05/16 08:53 Dose: 25 mg Hydrocortisone (Hydrocortisone 2.5%) 1 applic TOP BID [facility] Last Admin: 11/05/16 08:54 Dose: 1 applic Vancomycin HCl 1 gm/ Sodium (Chloride) 250 mls @ 125 mls/hr [place]PB [facility] [place]peracillin Sod/Tazobactam (Sod 2.25 gm/ Sodium Chloride) 100 mls @ 100 mls/ hr IVPB Q12 [facility] Last Admin: 11/05/16 08:50 Dose: 100 mls/hr Ibuprofen (Motrin Tab) 400 mg PO Q6H PRN PRN Reason: PAIN LEVEL ABOVE 7 Last Admin: 11/04/16 18:11 Dose: 400 mg Labetalol HCl (Trandate) 100 mg PO BID [facility] Last Admin: 11/05/16 08:54 Dose: 100 mg Lisinopril (Zestril) 5 mg PO DAILY [facility] Last Admin: 11/05/16 08:56 Dose: 5 mg Mirtazapine (Remeron) 7.5 mg PO HS [facility] Last Admin: 11/04/16 21:46 Dose: 7.5 mg Ondansetron HCl (Zofran Inj) 4 mg IVP Q6 PRN PRN Reason: Nausea/Vomiting Triamcinolone Acetonide (Kenalog 0.1% Oint) 1 appl TOP BID [facility] Last Admin: 11/05/16 08:53 Dose: 1 applic Vitamin B Complex/Vit C/Folic Acid (Nephro-Valentino) 1 tab PO DAILY [facility] Last Admin: 11/05/16 08:54 Dose: Not Given - Labs Labs: 11/05/16 05:15 11/05/16 05:15 PT 10.2 SECONDS (9.6-11.2) 11/04/16 03:45 INR 0.98 (0.92-1.08) 11/04/16 03:45 APTT 26.6 SECONDS (23.3-32.5) 11/04/16 03:45 - Constitutional Appears: Well, Non-toxic, No Acute Distress - Head Exam Head Exam: ATRAUMATIC, NORMAL INSPECTION, NORMOCEPHALIC - Eye Exam Eye Exam: EOMI, Normal appearance, PERRL Pupil Exam: NORMAL ACCOMODATION, PERRL - ENT Exam ENT Exam: Mucous Membranes Moist, Normal Exam - Neck Exam Neck Exam: Full ROM, Normal Inspection. absent: Lymphadenopathy - Respiratory Exam Respiratory Exam: Clear to Ausculation Bilateral, NORMAL BREATHING PATTERN - Cardiovascular Exam Cardiovascular Exam: REGULAR RHYTHM, RRR, +S1, +S2. absent: Murmur - GI/Abdominal Exam GI & Abdominal Exam: Soft, Normal Bowel Sounds. absent: Tenderness - Extremities Exam Extremities Exam: Full ROM, Normal Capillary Refill, Normal Inspection. absent : Joint Swelling, Pedal Edema - Back Exam Back Exam: NORMAL INSPECTION - Neurological Exam Neurological Exam: Alert, Awake, CN II-XII Intact, Normal Gait, Oriented x3 - Psychiatric Exam Psychiatric exam: Normal Affect, Normal Mood - Skin Skin Exam: Dry, Intact, Normal Color, Warm Assessment and Plan (1) Cellulitis of chest wall Status: Acute (2) End stage renal disease Status: Acute (3) Sepsis Status: Acute (4) DVT prophylaxis Status: Acute - Assessment and Plan (Free Text) Assessment: (1) Cellulitis of chest wall Assessment and Plan: autumn dempsey ID f/u c/s stable for tele d/c w/ icu attending topical steroid Status: Acute (2) End stage renal disease Assessment and Plan: neprho, cont dialysis schedule ?? need to change dialysis access Status: Acute (3) Sepsis Assessment and Plan: f/u c/s ID Status: Acute (4) DVT prophylaxis Assessment and Plan: scd and ae hose hold anticoag for now-will confirm if pt gets heparin w/ dialysis Status: Acute left posterior ear pain-tylenol/motrin prn. ?? need for mastoid area ct. ct head normal.
--- NOTE | 2016-11-05 13:03 | CP.PCM.PN ---
Subjective - Date & Time of Evaluation Date of Evaluation: 11/05/16 Time of Evaluation: 12:30 - Subjective Subjective: Feels better today. [email or web address] Objective - Vital Signs/Intake and Output Vital Signs (last 24 hours): Temp Pulse Resp BP Pulse Ox 98.6 F 70 18 146/56 L 97 11/05/16 12:37 11/05/16 12:37 11/05/16 12:37 11/05/16 12:37 11/05/16 12:37 - Medications Medications: Current Medications Acetaminophen (Tylenol 325mg Tab) 650 mg PO Q6 PRN PRN Reason: Pain, moderate (4-7) Last Admin: 11/05/16 05:14 Dose: 650 mg Alprazolam (Xanax) 0.5 mg PO TID PRN PRN Reason: Anxiety Amlodipine Besylate (Norvasc) 5 mg PO DAILY [facility] Last Admin: 11/05/16 08:55 Dose: 5 mg Aspirin (Ecotrin) 81 mg PO DAILY [facility] Last Admin: 11/05/16 09:28 Dose: 81 mg Atorvastatin Calcium (Lipitor) 20 mg PO DAILY [facility] Last Admin: 11/05/16 09:24 Dose: 20 mg Calcitriol (Rocaltrol) 0.25 mcg PO MWF [facility] Calcium Acetate (Phoslo) 1,334 mg PO TID [facility] Last Admin: 11/05/16 12:00 Dose: 1,334 mg Docusate Sodium (Colace) 100 mg PO BID [facility] Last Admin: 11/05/16 09:29 Dose: 100 mg Donepezil HCl (Aricept) 10 mg PO DAILY [facility] Last Admin: 11/05/16 09:22 Dose: 10 mg Hydralazine HCl (Apresoline) 25 mg PO BID [facility] Last Admin: 11/05/16 08:53 Dose: 25 mg Hydrocortisone (Hydrocortisone 2.5%) 1 applic TOP BID [facility] Last Admin: 11/05/16 08:54 Dose: 1 applic Vancomycin HCl 1 gm/ Sodium (Chloride) 250 mls @ 125 mls/hr IVPB MWF [facility] Piperacillin Sod/Tazobactam (Sod 2.25 gm/ Sodium Chloride) 50 mls @ 50 mls/hr IVPB Q12 [facility] Ibuprofen (Motrin Tab) 400 mg PO Q6H PRN PRN Reason: PAIN LEVEL ABOVE 7 Last Admin: 11/05/16 11:57 Dose: 400 mg Labetalol HCl (Trandate) 100 mg PO BID [facility] Last Admin: 11/05/16 08:54 Dose: 100 mg Lisinopril (Zestril) 5 mg PO DAILY [facility] Last Admin: 11/05/16 08:56 Dose: 5 mg Mirtazapine (Remeron) 7.5 mg PO HS [facility] Last Admin: 11/04/16 21:46 Dose: 7.5 mg Ondansetron HCl (Zofran Inj) 4 mg IVP Q6 PRN PRN Reason: Nausea/Vomiting Triamcinolone Acetonide (Kenalog 0.1% Oint) 1 appl TOP BID [facility] Last Admin: 11/05/16 08:53 Dose: 1 applic Vitamin B Complex/Vit C/Folic Acid (Nephro-Valentino) 1 tab PO DAILY [facility] Last Admin: 11/05/16 09:26 Dose: 1 tab - Labs Labs: 11/05/16 05:15 11/05/16 05:15 PT 10.2 SECONDS (9.6-11.2) 11/04/16 03:45 INR 0.98 (0.92-1.08) 11/04/16 03:45 APTT 26.6 SECONDS (23.3-32.5) 11/04/16 03:45 - Respiratory Exam Additional comments: Lungs clear - Cardiovascular Exam Cardiovascular Exam: REGULAR RHYTHM, Murmur - Extremities Exam Additional comments: No edema . + bruit over lt arm AVF Assessment and Plan - Assessment and Plan (Free Text) Assessment: ESRD on maintenance HD Sepsis . G+ cocci ( Staph) in blood. Dm HTN Plan: Scheduled for catheter change tomorrow remains afeb & Leukocytosis has resolved. Continue Vanco & Genta HD tomorrow after CT scan with contrast for ear pain Labs are sable
--- NOTE | 2016-11-05 13:21 | CP.PCM.CON ---
History of Present Illness - History of Present Illness History of Present Illness: General Surgery Dr. Galarza HPI: 76 y/o F w/ PMHx of HTN, ESRD, and Alzheimer's presented to the ED on 11/04/16 via ambulance for evaluation of fever x1hr. Pt has a dialysis catheter in the RIJ placed by IR on 10/12. Pt also had L AVF placed by Dr. Funk on 10/12. Pt received dialysis w/o complications on 11/03/16. At presentation, pt c/o F/C, N/V x1, and pruritus at catheter site. Today, pt S&E @ bedside. NAEO. c/o pruritus at catheter site and non-productive cough. Pt denies pain at catheter site, F/C, syncope, vertigo, SOB, CP, N/V, D/C, dysuria , myalgia, weakness. PMHx: HTN, ESRD, Diverticulosis, Alzheimer's disease Meds: reviewed NKDA PSHx: L AVF Appy, Hysterectomy, T&A, Permacath SHx: denies tobacco, EtOH, drugs FHx: noncontributory Review of Systems - Review of Systems All systems: reviewed and no additional remarkable complaints except (that which is stated in HPI) Past Patient History - Infectious Disease Hx of Infectious Diseases: None - Tetanus Immunizations Tetanus Immunization: Unknown - Past Medical History & Family History Past Medical History?: Yes - Past Social History Smoking Status: Never Smoked Chewing Tobacco Use: No Cigar Use: No Alcohol: None Drugs: Denies Home Situation {Lives}: With Family - CARDIAC Hx Cardiac Disorders: Yes Hx Hypercholesterolemia: Yes Hx Hypertension: Yes - PULMONARY Hx Respiratory Disorders: No - NEUROLOGICAL Hx Neurological Disorder: Yes Hx Alzheimer's Disease: Yes Hx Migraine: Yes - HEENT Hx HEENT Problems: Yes Other/Comment: wears eye glasses. - RENAL Hx Chronic Kidney Disease: Yes Hx Dialysis: Yes (MWF) Type of Dialysis Access: Rt IJ perm cath Hx Kidney Stones: Yes - ENDOCRINE/METABOLIC Hx Endocrine Disorders: No - HEMATOLOGICAL/ONCOLOGICAL Hx Blood Disorders: Yes Hx AIDS: No Hx Anemia: Yes Hx Human Immunodeficiency Virus (HIV): No - INTEGUMENTARY Hx Dermatological Problems: No - MUSCULOSKELETAL/RHEUMATOLOGICAL Hx Musculoskeletal Disorders: Yes Hx Falls: Yes (2013) - GASTROINTESTINAL Hx Gastrointestinal Disorders: Yes Hx Diverticulitis: Yes - GENITOURINARY/GYNECOLOGICAL Hx Genitourinary Disorders: No - PSYCHIATRIC Hx Psychophysiologic Disorder: No Hx Emotional Abuse: No Hx Physical Abuse: No Hx Substance Use: No - SURGICAL HISTORY Hx Surgeries: Yes Hx Abdominal Aortic Aneurysm Repair: No Hx Appendectomy: Yes Hx Hysterectomy: Yes Hx Tonsillectomy: Yes Hx Vascular Access Device: Yes (PERMA CATH ) - ANESTHESIA Hx Anesthesia: Yes Hx Anesthesia Reactions: No Hx Malignant Hyperthermia: No Meds Allergies/Adverse Reactions: Allergies Allergy/AdvReac Type Severity Reaction Status Date / Time No Known Allergies Allergy Verified 11/04/16 03:07 - Medications Medications: Current Medications Acetaminophen (Tylenol 325mg Tab) 650 mg PO Q6 PRN PRN Reason: Pain, moderate (4-7) Last Admin: 11/05/16 05:14 Dose: 650 mg Alprazolam (Xanax) 0.5 mg PO TID PRN PRN Reason: Anxiety Amlodipine Besylate (Norvasc) 5 mg PO DAILY [facility] Last Admin: 11/05/16 08:55 Dose: 5 mg Aspirin (Ecotrin) 81 mg PO DAILY [facility] Last Admin: 11/05/16 09:28 Dose: 81 mg Atorvastatin Calcium (Lipitor) 20 mg PO DAILY [facility] Last Admin: 11/05/16 09:24 Dose: 20 mg Calcitriol (Rocaltrol) 0.25 mcg PO MWF [facility] Calcium Acetate (Phoslo) 1,334 mg PO TID [facility] Last Admin: 11/05/16 12:00 Dose: 1,334 mg Docusate Sodium (Colace) 100 mg PO BID [facility] Last Admin: 11/05/16 09:29 Dose: 100 mg Donepezil HCl (Aricept) 10 mg PO DAILY [facility] Last Admin: 11/05/16 09:22 Dose: 10 mg Hydralazine HCl (Apresoline) 25 mg PO BID [facility] Last Admin: 11/05/16 08:53 Dose: 25 mg Hydrocortisone (Hydrocortisone 2.5%) 1 applic TOP BID [facility] Last Admin: 11/05/16 08:54 Dose: 1 applic Vancomycin HCl 1 gm/ Sodium (Chloride) 250 mls @ 125 mls/hr IVPB MWF [facility] Piperacillin Sod/Tazobactam (Sod 2.25 gm/ Sodium Chloride) 50 mls @ 50 mls/hr IVPB Q12 [facility] Ibuprofen (Motrin Tab) 400 mg PO Q6H PRN PRN Reason: PAIN LEVEL ABOVE 7 Last Admin: 11/05/16 11:57 Dose: 400 mg Labetalol HCl (Trandate) 100 mg PO BID [facility] Last Admin: 11/05/16 08:54 Dose: 100 mg Lisinopril (Zestril) 5 mg PO DAILY [facility] Last Admin: 11/05/16 08:56 Dose: 5 mg Mirtazapine (Remeron) 7.5 mg PO HS [facility] Last Admin: 11/04/16 21:46 Dose: 7.5 mg Ondansetron HCl (Zofran Inj) 4 mg IVP Q6 PRN PRN Reason: Nausea/Vomiting Triamcinolone Acetonide (Kenalog 0.1% Oint) 1 appl TOP BID [facility] Last Admin: 11/05/16 08:53 Dose: 1 applic Vitamin B Complex/Vit C/Folic Acid (Nephro-Valentino) 1 tab PO DAILY [facility] Last Admin: 11/05/16 09:26 Dose: 1 tab Physical Exam - Constitutional Appears: Non-toxic, No Acute Distress - Head Exam Head Exam: NORMAL INSPECTION - Eye Exam Eye Exam: Normal appearance - ENT Exam ENT Exam: Mucous Membranes Moist - Neck Exam Additional comments: RIJ permacath skin excoriated, dry, erythematous. purulent material present at insertion site. - Respiratory Exam Respiratory Exam: NORMAL BREATHING PATTERN. absent: Accessory Muscle Use, Respiratory Distress - Cardiovascular Exam Cardiovascular Exam: REGULAR RHYTHM. absent: Bradycardia, Tachycardia - GI/Abdominal Exam GI & Abdominal Exam: Soft. absent: Distended, Tenderness - Extremities Exam Extremities exam: Positive for: normal inspection. Negative for: pedal edema, tenderness - Neurological Exam Neurological exam: Alert, Altered (oriented x2) - Psychiatric Exam Psychiatric exam: Normal Affect, Normal Mood - Skin Skin Exam: Dry, Intact, Warm Additional comments: see neck exam Results - Vital Signs Recent Vital Signs: Last Vital Signs Temp 98.6 F 11/05/16 12:37 Pulse 70 11/05/16 12:37 Resp 18 11/05/16 12:37 BP 146/56 L 11/05/16 12:37 Pulse Ox 97 11/05/16 12:37 - Labs Result Diagrams: 11/05/16 05:15 11/05/16 05:15 Labs: Laboratory Results - last 24 hr 11/04/16 11/05/16 11/05/16 06:25 05:15 07:10 WBC 10.8 RBC 4.18 Hgb 12.1 Hct 36.8 MCV 88.2 MCH 28.9 MCHC 32.8 L RDW 14.2 Plt Count 69 L MPV 11.1 Neut % (Auto) 79.3 H Lymph % (Auto) 8.3 L [place] % (Auto) 10.1 H Eos % (Auto) 1.7 Baso % (Auto) 0.6 Neut # 8.6 H Lymph # 0.9 L [place] # 1.1 H Eos # 0.2 Baso # 0.1 Sodium 138 Potassium 4.5 Chloride 99 Carbon Dioxide 26 Anion Gap 18 BUN 43 H Creatinine 4.4 H Est GFR ( Amer) 12 Est GFR (Non-Af Amer) 10 Random Glucose 91 Lactic Acid 0.6 L Calcium 9.3 Total Bilirubin 0.9 AST 30 ALT 29 Alkaline Phosphatase 69 Total Protein 6.2 L Albumin 3.3 L D Globulin 2.8 Albumin/Globulin Ratio 1.2 Procalcitonin 5.81 H - Imaging and Cardiology Chest x-ray Status: Image reviewed by me Assessment & Plan - Assessment and Plan (Free Text) Assessment: 76 y/o F w/ bacteremia likely 2/2 infected permacath - NPO @[place] - cont IV Abx - Prelim Blood Cx Gram(+) cocci --> F/u sensitivities - OR likely tomorrow for permacath removal - dressing changes PRN Pt discussed w/ Dr. Geovanni Cobian DO PGY1
[2016-11-05] MEDS: Piperacillin/Tazobact 2.25 GM in Sodium Chloride 0.9% 50 ML IVPB SCH (21:02)
--- NOTE | 2016-11-06 07:20 | CP.PCM.PN ---
Subjective - Date & Time of Evaluation Date of Evaluation: 11/06/16 Time of Evaluation: 07:20 - Subjective Subjective: pt comfortable in bed. only comlaints is people keep waking her up. no f/c, n/v/ d. no headache/ear pain. pt is for perma cath remoal after dialysis today. all consults appriciated. all b wand c/s reviewed. Objective - Vital Signs/Intake and Output Vital Signs (last 24 hours): Temp Pulse Resp BP Pulse Ox 98.5 F 72 20 159/78 H 96 11/06/16 04:53 11/06/16 05:10 11/06/16 04:53 11/06/16 05:10 11/06/16 04:53 - Medications Medications: Current Medications Acetaminophen (Tylenol 325mg Tab) 650 mg PO Q6 PRN PRN Reason: Pain, moderate (4-7) Last Admin: 11/05/16 05:14 Dose: 650 mg Alprazolam (Xanax) 0.5 mg PO TID PRN PRN Reason: Anxiety Amlodipine Besylate (Norvasc) 5 mg PO DAILY [facility] Last Admin: 11/05/16 08:55 Dose: 5 mg Aspirin (Ecotrin) 81 mg PO DAILY [facility] Last Admin: 11/05/16 09:28 Dose: 81 mg Atorvastatin Calcium (Lipitor) 20 mg PO DAILY [facility] Last Admin: 11/05/16 09:24 Dose: 20 mg Calcitriol (Rocaltrol) 0.25 mcg PO MWF [facility] Calcium Acetate (Phoslo) 1,334 mg PO TID [facility] Last Admin: 11/05/16 16:27 Dose: 1,334 mg Docusate Sodium (Colace) 100 mg PO BID [facility] Last Admin: 11/05/16 16:31 Dose: 100 mg Donepezil HCl (Aricept) 10 mg PO DAILY [facility] Last Admin: 11/05/16 09:22 Dose: 10 mg Hydralazine HCl (Apresoline) 25 mg PO BID [facility] Last Admin: 11/05/16 16:28 Dose: 25 mg Hydrocortisone (Hydrocortisone 2.5%) 1 applic TOP BID [facility] Last Admin: 11/05/16 16:29 Dose: 1 applic Vancomycin HCl 1 gm/ Sodium (Chloride) 250 mls @ 125 mls/hr IVPB MWF [facility] Piperacillin Sod/Tazobactam (Sod 2.25 gm/ Sodium Chloride) 50 mls @ 50 mls/hr IVPB Q12 [facility] Last Admin: 11/05/16 21:02 Dose: 50 mls/hr Ibuprofen (Motrin Tab) 400 mg PO Q6H PRN PRN Reason: PAIN LEVEL ABOVE 7 Last Admin: 11/05/16 11:57 Dose: 400 mg Labetalol HCl (Trandate) 100 mg PO BID [facility] Last Admin: 11/05/16 16:28 Dose: 100 mg Lisinopril (Zestril) 5 mg PO DAILY [facility] Last Admin: 11/05/16 08:56 Dose: 5 mg Mirtazapine (Remeron) 7.5 mg PO HS [facility] Last Admin: 11/05/16 21:03 Dose: 7.5 mg Ondansetron HCl (Zofran Inj) 4 mg IVP Q6 PRN PRN Reason: Nausea/Vomiting Triamcinolone Acetonide (Kenalog 0.1% Oint) 1 appl TOP BID [facility] Last Admin: 11/05/16 16:29 Dose: 1 applic Vitamin B Complex/Vit C/Folic Acid (Nephro-Valentino) 1 tab PO DAILY [facility] Last Admin: 11/05/16 09:26 Dose: 1 tab - Labs Labs: 11/05/16 05:15 11/05/16 05:15 PT 10.2 SECONDS (9.6-11.2) 11/04/16 03:45 INR 0.98 (0.92-1.08) 11/04/16 03:45 APTT 26.6 SECONDS (23.3-32.5) 11/04/16 03:45 - Constitutional Appears: Well, Non-toxic, No Acute Distress - Head Exam Head Exam: ATRAUMATIC, NORMAL INSPECTION, NORMOCEPHALIC - Eye Exam Eye Exam: EOMI, Normal appearance, PERRL Pupil Exam: NORMAL ACCOMODATION, PERRL - ENT Exam ENT Exam: Mucous Membranes Moist, Normal Exam - Neck Exam Neck Exam: Full ROM, Normal Inspection. absent: Lymphadenopathy - Respiratory Exam Respiratory Exam: Clear to Ausculation Bilateral, NORMAL BREATHING PATTERN - Cardiovascular Exam Cardiovascular Exam: REGULAR RHYTHM, RRR, +S1, +S2. absent: Murmur - GI/Abdominal Exam GI & Abdominal Exam: Soft, Normal Bowel Sounds. absent: Tenderness - Exam Bimanual exam: NORMAL BIMANUAL EXAM - Extremities Exam Extremities Exam: Full ROM, Normal Capillary Refill, Normal Inspection. absent : Joint Swelling, Pedal Edema - Back Exam Back Exam: NORMAL INSPECTION - Neurological Exam Neurological Exam: Alert, Awake, CN II-XII Intact, Normal Gait, Oriented x3 - Psychiatric Exam Psychiatric exam: Normal Affect, Normal Mood - Skin Skin Exam: Dry, Intact, Normal Color, Warm Assessment and Plan (1) Cellulitis of chest wall Status: Acute (2) End stage renal disease Status: Acute (3) Sepsis Status: Acute (4) DVT prophylaxis Status: Acute - Assessment and Plan (Free Text) Assessment: (1) Cellulitis of chest wall Assessment and Plan: autumn dempsey ID f/u c/s-mssa for permacath removal after dialysis Status: Acute (2) End stage renal disease Assessment and Plan: neprho, cont dialysis schedule ?? need to change dialysis access-after dialysis today Status: Acute (3) Sepsis Assessment and Plan: f/u c/s ID Status: Acute (4) DVT prophylaxis Assessment and Plan: scd and ae hose hold anticoag for now-will confirm if pt gets heparin w/ dialysis Status: Acute left posterior ear pain-tylenol/motrin prn. ?? need for mastoid area ct. ct head normal. no pain at present, hold further imaging at present case d/c w/ surgical team
[2016-11-06] MEDS ORDERED: Lidocaine 2% Inj (20ml) INFIL ONE ×2 (07:49→23:00)
--- NOTE | 2016-11-06 07:57 | CP.PCM.PN ---
<Radha Maria - Last Filed: 11/06/16 08:24> Subjective - Date & Time of Evaluation Date of Evaluation: 11/06/16 Time of Evaluation: 07:52 - Subjective Subjective: General Surgery - Dr. Magallanes Pt S&E. COLIN. Pt denies any complaints, states she wishes to sleep. RIJ Permacath in place, for removal today after dialysis. Objective - Vital Signs/Intake and Output Vital Signs (last 24 hours): Temp Pulse Resp BP Pulse Ox 98.5 F 72 20 159/78 H 96 11/06/16 04:53 11/06/16 05:10 11/06/16 04:53 11/06/16 05:10 11/06/16 04:53 - Medications Medications: Current Medications Acetaminophen (Tylenol 325mg Tab) 650 mg PO Q6 PRN PRN Reason: Pain, moderate (4-7) Last Admin: 11/05/16 05:14 Dose: 650 mg Alprazolam (Xanax) 0.5 mg PO TID PRN PRN Reason: Anxiety Amlodipine Besylate (Norvasc) 5 mg PO DAILY [facility] Last Admin: 11/05/16 08:55 Dose: 5 mg Aspirin (Ecotrin) 81 mg PO DAILY [facility] Last Admin: 11/05/16 09:28 Dose: 81 mg Atorvastatin Calcium (Lipitor) 20 mg PO DAILY [facility] Last Admin: 11/05/16 09:24 Dose: 20 mg Calcitriol (Rocaltrol) 0.25 mcg PO F [facility] Calcium Acetate (Phoslo) 1,334 mg PO TID [facility] Last Admin: 11/05/16 16:27 Dose: 1,334 mg Docusate Sodium (Colace) 100 mg PO BID [facility] Last Admin: 11/05/16 16:31 Dose: 100 mg Donepezil HCl (Aricept) 10 mg PO DAILY [facility] Last Admin: 11/05/16 09:22 Dose: 10 mg Hydralazine HCl (Apresoline) 25 mg PO BID [facility] Last Admin: 11/05/16 16:28 Dose: 25 mg Hydrocortisone (Hydrocortisone 2.5%) 1 applic TOP BID [facility] Last Admin: 11/05/16 16:29 Dose: 1 applic Vancomycin HCl 1 gm/ Sodium (Chloride) 250 mls @ 125 mls/hr IVPB MWF [facility] Piperacillin Sod/Tazobactam (Sod 2.25 gm/ Sodium Chloride) 50 mls @ 50 mls/hr IVPB Q12 [facility] Last Admin: 11/05/16 21:02 Dose: 50 mls/hr Ibuprofen (Motrin Tab) 400 mg PO Q6H PRN PRN Reason: PAIN LEVEL ABOVE 7 Last Admin: 11/05/16 11:57 Dose: 400 mg Labetalol HCl (Trandate) 100 mg PO BID [facility] Last Admin: 11/05/16 16:28 Dose: 100 mg Lidocaine HCl (Lidocaine 2% 20ml Vial) 20 ml INFIL ONCE ONE Stop: 11/06/16 07:50 Lisinopril (Zestril) 5 mg PO DAILY [facility] Last Admin: 11/05/16 08:56 Dose: 5 mg Mirtazapine (Remeron) 7.5 mg PO HS [facility] Last Admin: 11/05/16 21:03 Dose: 7.5 mg Ondansetron HCl (Zofran Inj) 4 mg IVP Q6 PRN PRN Reason: Nausea/Vomiting Triamcinolone Acetonide (Kenalog 0.1% Oint) 1 appl TOP BID [facility] Last Admin: 11/05/16 16:29 Dose: 1 applic Vitamin B Complex/Vit C/Folic Acid (Nephro-Valentino) 1 tab PO DAILY [facility] Last Admin: 11/05/16 09:26 Dose: 1 tab - Labs Labs: 11/05/16 05:15 11/05/16 05:15 PT 10.2 SECONDS (9.6-11.2) 11/04/16 03:45 INR 0.98 (0.92-1.08) 11/04/16 03:45 APTT 26.6 SECONDS (23.3-32.5) 11/04/16 03:45 - Constitutional Appears: No Acute Distress - Head Exam Head Exam: ATRAUMATIC, NORMAL INSPECTION, NORMOCEPHALIC - Neck Exam Additional comments: R IJ permacath in place w/ purulent drainage, erythema - Respiratory Exam Respiratory Exam: NORMAL BREATHING PATTERN. absent: Respiratory Distress - Neurological Exam Neurological Exam: Alert, Oriented x3 - Psychiatric Exam Psychiatric exam: Normal Affect, Normal Mood - Skin Skin Exam: Dry, Intact Assessment and Plan - Assessment and Plan (Free Text) Assessment: 76F w/ bacteremia likely d/t infected permacath - Dialysis this morning via permacath - Will remove permacath bedside after dialysis - IR to place new permacath Sunday - Fistula not ready to be used yet as per discussion w/ vascular surgeon Dr. Funk - Cont IV Abx - F/U Culture sensitivities Dw Dr Elpidio Maria PGY2 <Luigi Magallanes - Last Filed: 11/06/16 10:19> Subjective - Date & Time of Evaluation Date of Evaluation: 11/06/16 Time of Evaluation: 09:30 - Subjective Subjective: Patient was seen and examined at the bedside. Agree with resident's note above. Objective - Vital Signs/Intake and Output Vital Signs (last 24 hours): Temp Pulse Resp BP Pulse Ox 98.6 F 78 18 165/64 H 98 11/06/16 08:00 11/06/16 09:14 11/06/16 08:00 11/06/16 09:14 11/06/16 08:00 - Medications Medications: Current Medications Acetaminophen (Tylenol 325mg Tab) 650 mg PO Q6 PRN PRN Reason: Pain, moderate (4-7) Last Admin: 11/05/16 05:14 Dose: 650 mg Alprazolam (Xanax) 0.5 mg PO TID PRN PRN Reason: Anxiety Amlodipine Besylate (Norvasc) 5 mg PO DAILY [facility] Last Admin: 11/06/16 09:17 Dose: 5 mg Aspirin (Ecotrin) 81 mg PO DAILY [facility] Last Admin: 11/06/16 09:15 Dose: 81 mg Atorvastatin Calcium (Lipitor) 20 mg PO DAILY [facility] Last Admin: 11/06/16 09:16 Dose: 20 mg Calcitriol (Rocaltrol) 0.25 mcg PO MWF [facility] Last Admin: 11/06/16 09:17 Dose: 0.25 mcg Calcium Acetate (Phoslo) 1,334 mg PO TID [facility] Last Admin: 11/06/16 09:17 Dose: 1,334 mg Docusate Sodium (Colace) 100 mg PO BID [facility] Last Admin: 11/06/16 09:14 Dose: 100 mg Donepezil HCl (Aricept) 10 mg PO DAILY [facility] Last Admin: 11/06/16 09:14 Dose: 10 mg Hydralazine HCl (Apresoline) 25 mg PO BID [facility] Last Admin: 04/24/17 09:14 Dose: 25 mg Hydrocortisone (Hydrocortisone 2.5%) 1 applic TOP BID [facility] Last Admin: 11/06/16 09:15 Dose: 1 applic Vancomycin HCl 1 gm/ Sodium (Chloride) 250 mls @ 125 mls/hr IVPB MWF [facility] Piperacillin Sod/Tazobactam (Sod 2.25 gm/ Sodium Chloride) 50 mls @ 50 mls/hr IVPB Q12 [facility] Last Admin: 11/06/16 09:18 Dose: 50 mls/hr Ibuprofen (Motrin Tab) 400 mg PO Q6H PRN PRN Reason: PAIN LEVEL ABOVE 7 Last Admin: 11/05/16 11:57 Dose: 400 mg Labetalol HCl (Trandate) 100 mg PO BID [facility] Last Admin: 11/06/16 09:18 Dose: 100 mg Lisinopril (Zestril) 5 mg PO DAILY [facility] Last Admin: 11/06/16 09:18 Dose: 5 mg Mirtazapine (Remeron) 7.5 mg PO HS [facility] Last Admin: 11/05/16 21:03 Dose: 7.5 mg Ondansetron HCl (Zofran Inj) 4 mg IVP Q6 PRN PRN Reason: Nausea/Vomiting Triamcinolone Acetonide (Kenalog 0.1% Oint) 1 appl TOP BID [facility] Last Admin: 11/06/16 09:16 Dose: 1 applic Vitamin B Complex/Vit C/Folic Acid (Nephro-Valentino) 1 tab PO DAILY [facility] Last Admin: 11/06/16 09:16 Dose: 1 tab - Labs Labs: 11/05/16 05:15 11/05/16 05:15 PT 10.2 SECONDS (9.6-11.2) 11/04/16 03:45 INR 0.98 (0.92-1.08) 11/04/16 03:45 APTT 26.6 SECONDS (23.3-32.5) 11/04/16 03:45
[2016-11-06] MEDS: Multivitamin Vitamin B Complex (Nephro-Vite) Tab PO SCH (09:16)
[2016-11-06] MEDS: Piperacillin/Tazobact 2.25 GM in Sodium Chloride 0.9% 50 ML IVPB SCH (09:18)
--- NOTE | 2016-11-06 11:00 | CP.PCM.PN ---
Subjective - Date & Time of Evaluation Date of Evaluation: 11/06/16 Time of Evaluation: 10:52 - Subjective Subjective: Patient in bed awake the family around, the son and the daughter Temperature came back to normal now Patient is still in denial about the need of dialysis. Complaining of less itching No nausea no vomiting Patient has memory loss Physical examination Chest clear Heart no rubs Abdomen soft Extremity no edema The lab noted and reviewed Impression and plan Staphylococcus sepsis To remove the dialysis catheter as soon as possible hemodialysis about to start now Ultrafiltration about 2000 mL Continue vancomycin I spoke to the family Patient has already left upper arm AV fistula which has not been working very good because is very deep patient scheduled to have Doppler of the left upper shunt. Objective - Vital Signs/Intake and Output Vital Signs (last 24 hours): Temp Pulse Resp BP Pulse Ox 98.6 F 78 18 165/64 H 98 11/06/16 08:00 11/06/16 09:14 11/06/16 08:00 11/06/16 09:14 11/06/16 08:00 - Medications Medications: Current Medications Acetaminophen (Tylenol 325mg Tab) 650 mg PO Q6 PRN PRN Reason: Pain, moderate (4-7) Last Admin: 11/05/16 05:14 Dose: 650 mg Alprazolam (Xanax) 0.5 mg PO TID PRN PRN Reason: Anxiety Amlodipine Besylate (Norvasc) 5 mg PO DAILY [facility] Last Admin: 11/06/16 09:17 Dose: 5 mg Aspirin (Ecotrin) 81 mg PO DAILY [facility] Last Admin: 11/06/16 09:15 Dose: 81 mg Atorvastatin Calcium (Lipitor) 20 mg PO DAILY [facility] Last Admin: 11/06/16 09:16 Dose: 20 mg Calcitriol (Rocaltrol) 0.25 mcg PO MWF [facility] Last Admin: 11/06/16 09:17 Dose: 0.25 mcg Calcium Acetate (Phoslo) 1,334 mg PO TID [facility] Last Admin: 11/06/16 09:17 Dose: 1,334 mg Docusate Sodium (Colace) 100 mg PO BID [facility] Last Admin: 11/06/16 09:14 Dose: 100 mg Donepezil HCl (Aricept) 10 mg PO DAILY [facility] Last Admin: 11/06/16 09:14 Dose: 10 mg Hydralazine HCl (Apresoline) 25 mg PO BID [facility] Last Admin: 11/06/16 09:14 Dose: 25 mg Hydrocortisone (Hydrocortisone 2.5%) 1 applic TOP BID [facility] Last Admin: 11/06/16 09:15 Dose: 1 applic Vancomycin HCl 1 gm/ Sodium (Chloride) 250 mls @ 125 mls/hr IVPB MWF [facility] Piperacillin Sod/Tazobactam (Sod 2.25 gm/ Sodium Chloride) 50 mls @ 50 mls/hr IVPB Q12 [facility] Last Admin: 11/06/16 09:18 Dose: 50 mls/hr Ibuprofen (Motrin Tab) 400 mg PO Q6H PRN PRN Reason: PAIN LEVEL ABOVE 7 Last Admin: 11/06/16 10:21 Dose: 400 mg Labetalol HCl (Trandate) 100 mg PO BID [facility] Last Admin: 11/06/16 09:18 Dose: 100 mg Lisinopril (Zestril) 5 mg PO DAILY [facility] Last Admin: 11/06/16 09:18 Dose: 5 mg Mirtazapine (Remeron) 7.5 mg PO HS [facility] Last Admin: 11/05/16 21:03 Dose: 7.5 mg Ondansetron HCl (Zofran Inj) 4 mg IVP Q6 PRN PRN Reason: Nausea/Vomiting Triamcinolone Acetonide (Kenalog 0.1% Oint) 1 appl TOP BID [facility] Last Admin: 11/06/16 09:16 Dose: 1 applic Vitamin B Complex/Vit C/Folic Acid (Nephro-Valentino) 1 tab PO DAILY [facility] Last Admin: 11/06/16 09:16 Dose: 1 tab - Labs Labs: 11/05/16 05:15 11/05/16 05:15 PT 10.2 SECONDS (9.6-11.2) 11/04/16 03:45 INR 0.98 (0.92-1.08) 11/04/16 03:45 APTT 26.6 SECONDS (23.3-32.5) 11/04/16 03:45
[2016-11-06 11:45] LABS: BASO # 0.1 K/uL (0.0-0.2); BASO % 1.1 % (0.0-2.0); EOS # 0.4 K/uL (0.0-0.7); EOS % 6.8 % (0.0-4.0); HEMATOCRIT 35.1 % (34.0-47.0); LYMPH # 0.8 K/uL (1.0-4.3); LYMPH % 13.6 % (20.0-40.0); MEAN CORPUSCULAR HEMOGLOBIN 29.3 pg (27.0-31.0); MEAN CORPUSCULAR HGB CONC 33.6 g/dL (33.0-37.0); MEAN PLATELET VOLUME 11.2 fl (7.2-11.7); MONO # 0.7 K/uL (0.0-0.8); MONO % 12.1 % (0.0-10.0); NEUT % 66.4 % (50.0-75.0); RED CELL DISTRIBUTION WIDTH 14.3 % (11.5-14.5)
[2016-11-06 11:49] LABS: PARTIAL THROMBOPLASTIN TIME 29.4 SECONDS (23.3-32.5)
[2016-11-06 11:59] LABS: ALB/GLOB RATIO 1.2 (1.0-2.1); BILIRUBIN,TOTAL 0.6 mg/dl (0.2-1.3); POTASSIUM 4.4 MMOL/L (3.6-5.0); TOTAL PROTEIN 6.2 G/DL (6.3-8.2)
--- NOTE | 2016-11-06 13:22 | CP.PCM.CON ---
History of Present Illness - History of Present Illness History of Present Illness: denies complaints Past Patient History - Infectious Disease Hx of Infectious Diseases: None - Tetanus Immunizations Tetanus Immunization: Unknown - Past Medical History & Family History Past Medical History?: Yes - Past Social History Smoking Status: Never Smoked Chewing Tobacco Use: No Cigar Use: No Alcohol: None Drugs: Denies Home Situation {Lives}: With Family - CARDIAC Hx Cardiac Disorders: Yes Hx Hypercholesterolemia: Yes Hx Hypertension: Yes - PULMONARY Hx Respiratory Disorders: No - NEUROLOGICAL Hx Neurological Disorder: Yes Hx Alzheimer's Disease: Yes Hx Migraine: Yes - HEENT Hx HEENT Problems: Yes Other/Comment: wears eye glasses. - RENAL Hx Chronic Kidney Disease: Yes Hx Dialysis: Yes ([facility]) Type of Dialysis Access: Rt IJ perm cath Hx Kidney Stones: Yes - ENDOCRINE/METABOLIC Hx Endocrine Disorders: No - HEMATOLOGICAL/ONCOLOGICAL Hx Blood Disorders: Yes Hx AIDS: No Hx Anemia: Yes Hx Human Immunodeficiency Virus (HIV): No - INTEGUMENTARY Hx Dermatological Problems: No - MUSCULOSKELETAL/RHEUMATOLOGICAL Hx Musculoskeletal Disorders: Yes Hx Falls: Yes (2013) - GASTROINTESTINAL Hx Gastrointestinal Disorders: Yes Hx Diverticulitis: Yes - GENITOURINARY/GYNECOLOGICAL Hx Genitourinary Disorders: No - PSYCHIATRIC Hx Psychophysiologic Disorder: No Hx Emotional Abuse: No Hx Physical Abuse: No Hx Substance Use: No - SURGICAL HISTORY Hx Surgeries: Yes Hx Abdominal Aortic Aneurysm Repair: No Hx Appendectomy: Yes Hx Hysterectomy: Yes Hx Tonsillectomy: Yes Hx Vascular Access Device: Yes (PERMA CATH ) - ANESTHESIA Hx Anesthesia: Yes Hx Anesthesia Reactions: No Hx Malignant Hyperthermia: No Meds Allergies/Adverse Reactions: Allergies Allergy/AdvReac Type Severity Reaction Status Date / Time No Known Allergies Allergy Verified 11/04/16 03:07 - Medications Medications: Current Medications Acetaminophen (Tylenol 325mg Tab) 650 mg PO Q6 PRN PRN Reason: Pain, moderate (4-7) Last Admin: 11/05/16 05:14 Dose: 650 mg Alprazolam (Xanax) 0.5 mg PO TID PRN PRN Reason: Anxiety Amlodipine Besylate (Norvasc) 5 mg PO DAILY [facility] Last Admin: 11/06/16 09:17 Dose: 5 mg Aspirin (Ecotrin) 81 mg PO DAILY [facility] Last Admin: 11/06/16 09:15 Dose: 81 mg Atorvastatin Calcium (Lipitor) 20 mg PO DAILY [facility] Last Admin: 11/06/16 09:16 Dose: 20 mg Calcitriol (Rocaltrol) 0.25 mcg PO MWF [facility] Last Admin: 11/06/16 09:17 Dose: 0.25 mcg Calcium Acetate (Phoslo) 1,334 mg PO TID [facility] Last Admin: 11/06/16 13:05 Dose: 1,334 mg Docusate Sodium (Colace) 100 mg PO BID [facility] Last Admin: 11/06/16 09:14 Dose: 100 mg Donepezil HCl (Aricept) 10 mg PO DAILY [facility] Last Admin: 11/06/16 09:14 Dose: 10 mg Hydralazine HCl (Apresoline) 25 mg PO BID [facility] Last Admin: 11/06/16 09:14 Dose: 25 mg Hydrocortisone (Hydrocortisone 2.5%) 1 applic TOP BID [facility] Last Admin: 11/06/16 09:15 Dose: 1 applic Vancomycin HCl 1 gm/ Sodium (Chloride) 250 mls @ 125 mls/hr IVPB MWF [facility] Piperacillin Sod/Tazobactam (Sod 2.25 gm/ Sodium Chloride) 50 mls @ 50 mls/hr IVPB Q12 [facility] Last Admin: 11/06/16 09:18 Dose: 50 mls/hr Ibuprofen (Motrin Tab) 400 mg PO Q6H PRN PRN Reason: PAIN LEVEL ABOVE 7 Last Admin: 11/06/16 10:21 Dose: 400 mg Labetalol HCl (Trandate) 100 mg PO BID [facility] Last Admin: 11/06/16 09:18 Dose: 100 mg Lisinopril (Zestril) 5 mg PO DAILY [facility] Last Admin: 11/06/16 09:18 Dose: 5 mg Mirtazapine (Remeron) 7.5 mg PO HS [facility] Last Admin: 11/05/16 21:03 Dose: 7.5 mg Ondansetron HCl (Zofran Inj) 4 mg IVP Q6 PRN PRN Reason: Nausea/Vomiting Triamcinolone Acetonide (Kenalog 0.1% Oint) 1 appl TOP BID [facility] Last Admin: 11/06/16 09:16 Dose: 1 applic Vitamin B Complex/Vit C/Folic Acid (Nephro-Valentino) 1 tab PO DAILY [facility] Last Admin: 11/06/16 09:16 Dose: 1 tab Results - Vital Signs Recent Vital Signs: Last Vital Signs Temp 98.7 F 11/06/16 12:00 Pulse 73 11/06/16 12:00 Resp 18 11/06/16 12:00 BP 154/57 H 11/06/16 12:00 Pulse Ox 97 11/06/16 12:00 - Labs Result Diagrams: 11/06/16 11:27 11/06/16 11:27 Labs: Laboratory Results - last 24 hr 11/06/16 11:27 WBC 6.0 RBC 4.03 Hgb 11.8 L Hct 35.1 MCV 87.0 MCH 29.3 MCHC 33.6 RDW 14.3 Plt Count 83 L MPV 11.2 Neut % (Auto) 66.4 Lymph % (Auto) 13.6 L Tyrrell % (Auto) 12.1 H Eos % (Auto) 6.8 H Baso % (Auto) 1.1 Neut # 4.0 Lymph # 0.8 L Tyrrell # 0.7 Eos # 0.4 Baso # 0.1 PT 10.5 INR 1.01 APTT 29.4 Sodium 137 Potassium 4.4 Chloride 100 Carbon Dioxide 23 Anion Gap 18 BUN 49 H Creatinine 5.1 H Est GFR ( Amer) 10 Est GFR (Non-Af Amer) 8 Random Glucose 139 H Calcium 9.0 Total Bilirubin 0.6 AST 25 ALT 25 Alkaline Phosphatase 63 Total Protein 6.2 L Albumin 3.3 L Globulin 2.8 Albumin/Globulin Ratio 1.2 Assessment & Plan - Assessment and Plan (Free Text) Assessment: Infected portacath, for d/c today Continue i.v Vancomyin -w- for 4 weeks. d/c zosyn f/u ECHO rule out endocarditis
--- NOTE | 2016-11-06 18:54 | CARD ---
APPROVED REPORT EKG Measurement Heart [id number] CO [id number] [id number] <Conclusion> Sinus tachycardia Possible Left atrial enlargement Left ventricular hypertrophy Abnormal QRS-T angle, consider primary T wave abnormality Abnormal ECG
--- NOTE | 2016-11-06 23:55 | CP.PCM.PN ---
Subjective - Date & Time of Evaluation Date of Evaluation: 11/06/16 Time of Evaluation: 23:20 - Subjective Subjective: A time-out was performed prior to start of removal of tunneled dialysis catheter. The patient was correctly identified as well as the procedure.The patients upper chest and neck were prepped with chlorhexidine and draped sterilely. 15cc's of 2% lidocaine w/o epi were injected along port site. The cuff securing catheter was dissected out from the subcutaneous tissues with blunt dissection . The catheter was then easily withdrawn intact. About 5 cc's of purulent drainage was expressed from catheter site, cultures were taken. Pressure was applied on the right internal jugular vein for 5 minutes, hemostasis was achieved. Pressure bandage was applied at catheter insertion site. Patient tolerated procedure well. Objective - Vital Signs/Intake and Output Vital Signs (last 24 hours): Temp Pulse Resp BP Pulse Ox 98.8 F 78 20 148/73 98 11/06/16 19:11 11/06/16 19:11 11/06/16 19:11 11/06/16 19:11 11/06/16 19:11 - Medications Medications: Current Medications Acetaminophen (Tylenol 325mg Tab) 650 mg PO Q6 PRN PRN Reason: Pain, moderate (4-7) Last Admin: 11/05/16 05:14 Dose: 650 mg Alprazolam (Xanax) 0.5 mg PO TID PRN PRN Reason: Anxiety Amlodipine Besylate (Norvasc) 5 mg PO DAILY [facility] Last Admin: 11/06/16 09:17 Dose: 5 mg Aspirin (Ecotrin) 81 mg PO DAILY [facility] Last Admin: 11/06/16 09:15 Dose: 81 mg Atorvastatin Calcium (Lipitor) 20 mg PO DAILY [facility] Last Admin: 11/06/16 09:16 Dose: 20 mg Calcitriol (Rocaltrol) 0.25 mcg PO MWF [facility] Last Admin: 11/06/16 09:17 Dose: 0.25 mcg Calcium Acetate (Phoslo) 1,334 mg PO TID [facility] Last Admin: 11/06/16 17:26 Dose: 1,334 mg Docusate Sodium (Colace) 100 mg PO BID [facility] Last Admin: 11/06/16 17:25 Dose: 100 mg Donepezil HCl (Aricept) 10 mg PO DAILY [facility] Last Admin: 11/06/16 09:14 Dose: 10 mg Hydralazine HCl (Apresoline) 25 mg PO BID [facility] Last Admin: 11/06/16 17:24 Dose: 25 mg Hydrocortisone (Hydrocortisone 2.5%) 1 applic TOP BID [facility] Last Admin: 11/06/16 17:25 Dose: 1 applic Vancomycin HCl 1 gm/ Sodium (Chloride) 250 mls @ 125 mls/hr IVPB MWF [facility] Last Admin: 11/06/16 21:03 Dose: 125 mls/hr Ibuprofen (Motrin Tab) 400 mg PO Q6H PRN PRN Reason: PAIN LEVEL ABOVE 7 Last Admin: 11/06/16 10:21 Dose: 400 mg Labetalol HCl (Trandate) 100 mg PO BID [facility] Last Admin: 11/06/16 17:26 Dose: 100 mg Lisinopril (Zestril) 5 mg PO DAILY [facility] Last Admin: 11/06/16 09:18 Dose: 5 mg Mirtazapine (Remeron) 7.5 mg PO HS [facility] Last Admin: 11/06/16 21:20 Dose: 7.5 mg Ondansetron HCl (Zofran Inj) 4 mg IVP Q6 PRN PRN Reason: Nausea/Vomiting Triamcinolone Acetonide (Kenalog 0.1% Oint) 1 appl TOP BID [facility] Last Admin: 11/06/16 17:26 Dose: 1 applic Vitamin B Complex/Vit C/Folic Acid (Nephro-Valentino) 1 tab PO DAILY [facility] Last Admin: 11/06/16 09:16 Dose: 1 tab - Labs Labs: 11/06/16 11:27 11/06/16 11:27 PT 10.5 SECONDS (9.6-11.2) 11/06/16 11:27 INR 1.01 (0.92-1.08) 11/06/16 11:27 APTT 29.4 SECONDS (23.3-32.5) 11/06/16 11:27
--- NOTE | 2016-11-07 07:39 | CP.PCM.PN ---
Subjective - Date & Time of Evaluation Date of Evaluation: 11/07/16 Time of Evaluation: 07:39 - Subjective Subjective: no complaints/distress no f/c n/v/d bw and imaging noted pt had r chest wall perma cath remove dyesterday. pt for temp access tomorrow Objective - Vital Signs/Intake and Output Vital Signs (last 24 hours): Temp Pulse Resp BP Pulse Ox 98.5 F 82 20 173/67 H 96 11/07/16 00:11 11/07/16 00:11 11/07/16 00:11 11/07/16 00:11 11/07/16 00:11 - Medications Medications: Current Medications Acetaminophen (Tylenol 325mg Tab) 650 mg PO Q6 PRN PRN Reason: Pain, moderate (4-7) Last Admin: 11/05/16 05:14 Dose: 650 mg Alprazolam (Xanax) 0.5 mg PO TID PRN PRN Reason: Anxiety Amlodipine Besylate (Norvasc) 5 mg PO DAILY [facility] Last Admin: 11/06/16 09:17 Dose: 5 mg Aspirin (Ecotrin) 81 mg PO DAILY [facility] Last Admin: 11/06/16 09:15 Dose: 81 mg Atorvastatin Calcium (Lipitor) 20 mg PO DAILY [facility] Last Admin: 11/06/16 09:16 Dose: 20 mg Calcitriol (Rocaltrol) 0.25 mcg PO F [facility] Last Admin: 11/06/16 09:17 Dose: 0.25 mcg Calcium Acetate (Phoslo) 1,334 mg PO TID [facility] Last Admin: 11/06/16 17:26 Dose: 1,334 mg Docusate Sodium (Colace) 100 mg PO BID [facility] Last Admin: 11/06/16 17:25 Dose: 100 mg Donepezil HCl (Aricept) 10 mg PO DAILY [facility] Last Admin: 11/06/16 09:14 Dose: 10 mg Hydralazine HCl (Apresoline) 25 mg PO BID [facility] Last Admin: 11/06/16 17:24 Dose: 25 mg Hydrocortisone (Hydrocortisone 2.5%) 1 applic TOP BID [facility] Last Admin: 11/06/16 17:25 Dose: 1 applic Vancomycin HCl 1 gm/ Sodium (Chloride) 250 mls @ 125 mls/[facility] Last Admin: 11/06/16 21:03 Dose: 125 mls/hr Ibuprofen (Motrin Tab) 400 mg PO Q6H PRN PRN Reason: PAIN LEVEL ABOVE 7 Last Admin: 11/06/16 10:21 Dose: 400 mg Labetalol HCl (Trandate) 100 mg PO BID [facility] Last Admin: 11/06/16 17:26 Dose: 100 mg Lisinopril (Zestril) 5 mg PO DAILY [facility] Last Admin: 11/06/16 09:18 Dose: 5 mg Mirtazapine (Remeron) 7.5 mg PO HS [facility] Last Admin: 11/06/16 21:20 Dose: 7.5 mg Ondansetron HCl (Zofran Inj) 4 mg IVP Q6 PRN PRN Reason: Nausea/Vomiting Triamcinolone Acetonide (Kenalog 0.1% Oint) 1 appl TOP BID [facility] Last Admin: 11/06/16 17:26 Dose: 1 applic Vitamin B Complex/Vit C/Folic Acid (Nephro-Valentino) 1 tab PO DAILY [facility] Last Admin: 11/06/16 09:16 Dose: 1 tab - Labs Labs: 11/06/16 11:27 11/06/16 11:27 PT 10.5 SECONDS (9.6-11.2) 11/06/16 11:27 INR 1.01 (0.92-1.08) 11/06/16 11:27 APTT 29.4 SECONDS (23.3-32.5) 11/06/16 11:27 - Constitutional Appears: Well, Non-toxic, No Acute Distress - Head Exam Head Exam: ATRAUMATIC, NORMAL INSPECTION, NORMOCEPHALIC - Eye Exam Eye Exam: EOMI, Normal appearance, PERRL Pupil Exam: NORMAL ACCOMODATION, PERRL - ENT Exam ENT Exam: Mucous Membranes Moist, Normal Exam - Neck Exam Neck Exam: Full ROM, Normal Inspection. absent: Lymphadenopathy - Respiratory Exam Respiratory Exam: Clear to Ausculation Bilateral, NORMAL BREATHING PATTERN - Cardiovascular Exam Cardiovascular Exam: REGULAR RHYTHM, RRR, +S1, +S2. absent: Murmur - GI/Abdominal Exam GI & Abdominal Exam: Soft, Normal Bowel Sounds. absent: Tenderness - Extremities Exam Extremities Exam: Full ROM, Normal Capillary Refill, Normal Inspection. absent : Joint Swelling, Pedal Edema - Back Exam Back Exam: NORMAL INSPECTION - Neurological Exam Neurological Exam: Alert, Awake, CN II-XII Intact, Normal Gait, Oriented x3 - Psychiatric Exam Psychiatric exam: Normal Affect, Normal Mood - Skin Skin Exam: Dry, Intact, Normal Color, Warm Assessment and Plan (1) DVT prophylaxis Status: Acute (2) Cellulitis of chest wall Status: Acute (3) Sepsis Status: Acute (4) End stage renal disease Status: Acute - Assessment and Plan (Free Text) Assessment: (1) Cellulitis of chest wall/dialysis acess Assessment and Plan: vanco x 4 wks, zosyn-dc ID f/u c/s-mssa for permacath removal after dialysis-yesterday. for temp access today Status: Acute (2) End stage renal disease Assessment and Plan: neprho, cont dialysis schedule r chest wall perma cath dc, temp cath to be placed tomorrow Status: Acute (3) Sepsis Assessment and Plan: f/u c/s ID Status: Acute (4) DVT prophylaxis Assessment and Plan: scd and ae hose hold anticoag for now-will confirm if pt gets heparin w/ dialysis Status: Acute left posterior ear pain-tylenol/motrin prn. ?? need for mastoid area ct. ct head normal. no pain at present, hold further imaging at present-no further complaitns. case d/c w/ surgical team
--- NOTE | 2016-11-07 07:42 | CP.PCM.PN ---
<Radha Maria - Last Filed: 11/07/16 07:39> Subjective - Date & Time of Evaluation Date of Evaluation: 11/07/16 Time of Evaluation: 07:39 - Subjective Subjective: General Surgery - Dr. Magallanes Pt S&E. RIJ Permacath was removed last night. Pt denies any complaints at this time. No F/C, SOB/CP. Objective - Vital Signs/Intake and Output Vital Signs (last 24 hours): Temp Pulse Resp BP Pulse Ox 98.5 F 82 20 173/67 H 96 11/07/16 00:11 11/07/16 00:11 11/07/16 00:11 11/07/16 00:11 11/07/16 00:11 - Medications Medications: Current Medications Acetaminophen (Tylenol 325mg Tab) 650 mg PO Q6 PRN PRN Reason: Pain, moderate (4-7) Last Admin: 11/05/16 05:14 Dose: 650 mg Alprazolam (Xanax) 0.5 mg PO TID PRN PRN Reason: Anxiety Amlodipine Besylate (Norvasc) 5 mg PO DAILY [facility] Last Admin: 11/06/16 09:17 Dose: 5 mg Aspirin (Ecotrin) 81 mg PO DAILY [facility] Last Admin: 11/06/16 09:15 Dose: 81 mg Atorvastatin Calcium (Lipitor) 20 mg PO DAILY [facility] Last Admin: 11/06/16 09:16 Dose: 20 mg Calcitriol (Rocaltrol) 0.25 mcg PO MWF [facility] Last Admin: 11/06/16 09:17 Dose: 0.25 mcg Calcium Acetate (Phoslo) 1,334 mg PO TID [facility] Last Admin: 11/06/16 17:26 Dose: 1,334 mg Docusate Sodium (Colace) 100 mg PO BID [facility] Last Admin: 11/06/16 17:25 Dose: 100 mg Donepezil HCl (Aricept) 10 mg PO DAILY [facility] Last Admin: 11/06/16 09:14 Dose: 10 mg Hydralazine HCl (Apresoline) 25 mg PO BID [facility] Last Admin: 11/06/16 17:24 Dose: 25 mg Hydrocortisone (Hydrocortisone 2.5%) 1 applic TOP BID [facility] Last Admin: 11/06/16 17:25 Dose: 1 applic Vancomycin HCl 1 gm/ Sodium (Chloride) 250 mls @ 125 mls/hr IVPB MWF [facility] Last Admin: 11/06/16 21:03 Dose: 125 mls/hr Ibuprofen (Motrin Tab) 400 mg PO Q6H PRN PRN Reason: PAIN LEVEL ABOVE 7 Last Admin: 11/06/16 10:21 Dose: 400 mg Labetalol HCl (Trandate) 100 mg PO BID [facility] Last Admin: 11/06/16 17:26 Dose: 100 mg Lisinopril (Zestril) 5 mg PO DAILY [facility] Last Admin: 11/06/16 09:18 Dose: 5 mg Mirtazapine (Remeron) 7.5 mg PO HS [facility] Last Admin: 11/06/16 21:20 Dose: 7.5 mg Ondansetron HCl (Zofran Inj) 4 mg IVP Q6 PRN PRN Reason: Nausea/Vomiting Triamcinolone Acetonide (Kenalog 0.1% Oint) 1 appl TOP BID [facility] Last Admin: 11/06/16 17:26 Dose: 1 applic Vitamin B Complex/Vit C/Folic Acid (Nephro-Valentino) 1 tab PO DAILY [facility] Last Admin: 11/06/16 09:16 Dose: 1 tab - Labs Labs: 11/06/16 11:27 11/06/16 11:27 PT 10.5 SECONDS (9.6-11.2) 11/06/16 11:27 INR 1.01 (0.92-1.08) 11/06/16 11:27 APTT 29.4 SECONDS (23.3-32.5) 11/06/16 11:27 - Constitutional Appears: No Acute Distress - Head Exam Head Exam: ATRAUMATIC, NORMAL INSPECTION, NORMOCEPHALIC - Eye Exam Eye Exam: Normal appearance - Respiratory Exam Respiratory Exam: NORMAL BREATHING PATTERN. absent: Respiratory Distress Additional comments: RIJ Permacath removed, Dressing C/DI - Neurological Exam Neurological Exam: Alert, Awake - Psychiatric Exam Psychiatric exam: Normal Affect, Normal Mood - Skin Skin Exam: Dry, Intact Assessment and Plan - Assessment and Plan (Free Text) Assessment: 76F w/ bacteremia likely d/t infected permacath - Permacath removed yesterday - Will place Temporary Dialysis Cath within next 24hrs - New Permacath to be placed in 1-2 weeks once cultures negative Dw Dr Elpidio Maria PGY2 <Luigi Magallanes - Last Filed: 11/07/16 12:30> Subjective - Subjective Subjective: Patient was seen and examined at the bedside. Agree with the resident's note above. Objective - Vital Signs/Intake and Output Vital Signs (last 24 hours): Temp Pulse Resp BP Pulse Ox 98.5 F 77 18 188/71 H 98 11/07/16 12:00 11/07/16 12:00 11/07/16 12:00 11/07/16 12:00 11/07/16 12:00 - Medications Medications: Current Medications Acetaminophen (Tylenol 325mg Tab) 650 mg PO Q6 PRN PRN Reason: Pain, moderate (4-7) Last Admin: 11/05/16 05:14 Dose: 650 mg Alprazolam (Xanax) 0.5 mg PO TID PRN PRN Reason: Anxiety Last Admin: 11/07/16 12:14 Dose: 0.5 mg Amlodipine Besylate (Norvasc) 5 mg PO DAILY [facility] Last Admin: 11/07/16 08:45 Dose: 5 mg Aspirin (Ecotrin) 81 mg PO DAILY [facility] Last Admin: 11/07/16 08:47 Dose: 81 mg Atorvastatin Calcium (Lipitor) 20 mg PO DAILY [facility] Last Admin: 11/06/16 09:16 Dose: 20 mg Calcitriol (Rocaltrol) 0.25 mcg PO F [facility] Last Admin: 11/06/16 09:17 Dose: 0.25 mcg Calcium Acetate (Phoslo) 1,334 mg PO TID [facility] Last Admin: 11/07/16 08:45 Dose: 1,334 mg Docusate Sodium (Colace) 100 mg PO BID [facility] Last Admin: 11/07/16 08:47 Dose: 100 mg Donepezil HCl (Aricept) 10 mg PO DAILY [facility] Last Admin: 11/07/16 08:47 Dose: 10 mg Hydralazine HCl (Apresoline) 25 mg PO BID [facility] Last Admin: 11/07/16 08:47 Dose: 25 mg Hydrocortisone (Hydrocortisone 2.5%) 1 applic TOP BID [facility] Last Admin: 11/06/16 17:25 Dose: 1 applic Vancomycin HCl 1 gm/ Sodium (Chloride) 250 mls @ 125 mls/hr IVPB [facility] Last Admin: 11/06/16 21:03 Dose: 125 mls/hr Ibuprofen (Motrin Tab) 400 mg PO Q6H PRN PRN Reason: PAIN LEVEL ABOVE 7 Last Admin: 11/06/16 10:21 Dose: 400 mg Labetalol HCl (Trandate) 100 mg PO BID [facility] Last Admin: 11/07/16 08:46 Dose: 100 mg Lisinopril (Zestril) 5 mg PO DAILY [facility] Last Admin: 11/07/16 08:46 Dose: 5 mg Mirtazapine (Remeron) 7.5 mg PO HS [facility] Last Admin: 11/06/16 21:20 Dose: 7.5 mg Ondansetron HCl (Zofran Inj) 4 mg IVP Q6 PRN PRN Reason: Nausea/Vomiting Triamcinolone Acetonide (Kenalog 0.1% Oint) 1 appl TOP BID [facility] Last Admin: 11/07/16 08:46 Dose: 1 applic Vitamin B Complex/Vit C/Folic Acid (Nephro-Valentino) 1 tab PO DAILY [facility] Last Admin: 11/07/16 08:45 Dose: 1 tab - Labs Labs: 11/06/16 11:27 11/06/16 11:27 PT 10.5 SECONDS (9.6-11.2) 11/06/16 11:27 INR 1.01 (0.92-1.08) 11/06/16 11:27 APTT 29.4 SECONDS (23.3-32.5) 11/06/16 11:27
[2016-11-07] MEDS: Multivitamin Vitamin B Complex (Nephro-Vite) Tab PO SCH (08:45)
--- NOTE | 2016-11-07 11:05 | CP.PCM.PN ---
Subjective - Date & Time of Evaluation Date of Evaluation: 11/07/16 Time of Evaluation: 11:03 - Subjective Subjective: Patient awake in bed Feeling much better no nausea no vomiting Objective - Vital Signs/Intake and Output Vital Signs (last 24 hours): Temp Pulse Resp BP Pulse Ox 98.4 F 84 18 190/70 H 98 11/07/16 08:04 11/07/16 08:04 11/07/16 08:04 11/07/16 08:04 11/07/16 08:04 - Medications Medications: Current Medications Acetaminophen (Tylenol 325mg Tab) 650 mg PO Q6 PRN PRN Reason: Pain, moderate (4-7) Last Admin: 11/05/16 05:14 Dose: 650 mg Alprazolam (Xanax) 0.5 mg PO TID PRN PRN Reason: Anxiety Amlodipine Besylate (Norvasc) 5 mg PO DAILY [facility] Last Admin: 11/07/16 08:45 Dose: 5 mg Aspirin (Ecotrin) 81 mg PO DAILY [facility] Last Admin: 11/07/16 08:47 Dose: 81 mg Atorvastatin Calcium (Lipitor) 20 mg PO DAILY [facility] Last Admin: 11/06/16 09:16 Dose: 20 mg Calcitriol (Rocaltrol) 0.25 mcg PO MWF [facility] Last Admin: 11/06/16 09:17 Dose: 0.25 mcg Calcium Acetate (Phoslo) 1,334 mg PO TID [facility] Last Admin: 11/07/16 08:45 Dose: 1,334 mg Docusate Sodium (Colace) 100 mg PO BID [facility] Last Admin: 11/07/16 08:47 Dose: 100 mg Donepezil HCl (Aricept) 10 mg PO DAILY [facility] Last Admin: 11/07/16 08:47 Dose: 10 mg Hydralazine HCl (Apresoline) 25 mg PO BID [facility] Last Admin: 11/07/16 08:47 Dose: 25 mg Hydrocortisone (Hydrocortisone 2.5%) 1 applic TOP BID [facility] Last Admin: 11/06/16 17:25 Dose: 1 applic Vancomycin HCl 1 gm/ Sodium (Chloride) 250 mls @ 125 mls/hr IVPB MWF [facility] Last Admin: 11/06/16 21:03 Dose: 125 mls/hr Ibuprofen (Motrin Tab) 400 mg PO Q6H PRN PRN Reason: PAIN LEVEL ABOVE 7 Last Admin: 11/06/16 10:21 Dose: 400 mg Labetalol HCl (Trandate) 100 mg PO BID [facility] Last Admin: 11/07/16 08:46 Dose: 100 mg Lisinopril (Zestril) 5 mg PO DAILY [facility] Last Admin: 11/07/16 08:46 Dose: 5 mg Mirtazapine (Remeron) 7.5 mg PO HS [facility] Last Admin: 11/06/16 21:20 Dose: 7.5 mg Ondansetron HCl (Zofran Inj) 4 mg IVP Q6 PRN PRN Reason: Nausea/Vomiting Triamcinolone Acetonide (Kenalog 0.1% Oint) 1 appl TOP BID [facility] Last Admin: 11/07/16 08:46 Dose: 1 applic Vitamin B Complex/Vit C/Folic Acid (Nephro-Valentino) 1 tab PO DAILY [facility] Last Admin: 11/07/16 08:45 Dose: 1 tab - Labs Labs: 11/06/16 11:27 11/06/16 11:27 PT 10.5 SECONDS (9.6-11.2) 11/06/16 11:27 INR 1.01 (0.92-1.08) 11/06/16 11:27 APTT 29.4 SECONDS (23.3-32.5) 11/06/16 11:27 - Constitutional Appears: No Acute Distress - Respiratory Exam Respiratory Exam: NORMAL BREATHING PATTERN. absent: Chest Wall Tenderness, Rales - Cardiovascular Exam Cardiovascular Exam: REGULAR RHYTHM. absent: Rubs - GI/Abdominal Exam GI & Abdominal Exam: Normal Bowel Sounds. absent: Guarding - Extremities Exam Extremities Exam: absent: Calf Tenderness - Back Exam Back Exam: absent: CVA tenderness (L), CVA tenderness (R) - Neurological Exam Neurological Exam: Alert Assessment and Plan (1) End stage renal disease Assessment & Plan: Patient tolerated hemodialysis yesterday very well Dialysis catheter has been removed last night Blood cultures showed Staphylococcus consistent with the sepsis related to catheter was staph infection. Patient receiving vancomycin to continue as recommended as well with the ID. Patient to have temporary femoral catheter to be dialyzed tomorrow then she will need permacath again. Patient also forget for probably she has Alzheimer as well as she doesn't remember what's going on Status: Chronic (2) Sepsis Status: Acute
--- NOTE | 2016-11-07 14:46 | PCM.PROC ---
Procedures Attestation:: I certify that I have explained the specified Operation(s) or Procedure(s), risks, benefits and reasonable alternatives to the Patient and/or other person responsible. The opportunity was given to ask questions and all questions answered - Central Line Placement Right Femoral Hemodialysis Access Aseptic technique was employed throughout the procedure: Hand Hygiene done prior to procedure, Full sterile barriers (mask, hair cover, sterile gown, sterile gloves), Full body sterile drape, Chloraprep Antiseptic: 2 minute prep for Femoral CVP Time Out Performed: Yes Central Line Prep: Chlorhexidine-Alcohol Combination Local Anesthesia Used: Lidocaine 1% Amount of Anesthesia Used (mls): 7 Ultrasound Used for Placement: Yes Central Line Lumen Inserted: double Post Procedure: Sutured in Place, Good Blood Return, All Ports Aspirated, Flushed, Capped, Sterile Dressing Applied Secured by: Suture Post procedure dressing: Clear vapor permeable, Chlorhexidine disc (Biopatch) Patient Tolerated Procedure: Well, No Complications Additional Comments: Dr. Magallanes was present for the entire procedure.
--- NOTE | 2016-11-08 07:13 | CP.PCM.PN ---
Subjective - Date & Time of Evaluation Date of Evaluation: 11/08/16 Time of Evaluation: 07:13 - Subjective Subjective: no complaints/distress no f/c, n/v/d pneidng new dialysis access. possible dc tomorrow Objective - Vital Signs/Intake and Output Vital Signs (last 24 hours): Temp Pulse Resp BP Pulse Ox 98.4 F 79 19 172/63 H 98 11/08/16 05:00 11/08/16 05:00 11/08/16 05:00 11/08/16 05:00 11/08/16 05:00 Intake and Output: 11/08/16 11/08/16 06:59 18:59 Intake Total 100 Balance 100 - Medications Medications: Current Medications Acetaminophen (Tylenol 325mg Tab) 650 mg PO Q6 PRN PRN Reason: Pain, moderate (4-7) Last Admin: 11/05/16 05:14 Dose: 650 mg Alprazolam (Xanax) 0.5 mg PO TID PRN PRN Reason: Anxiety Last Admin: 11/07/16 21:25 Dose: 0.5 mg Amlodipine Besylate (Norvasc) 5 mg PO DAILY [facility] Last Admin: 11/07/16 08:45 Dose: 5 mg Amlodipine Besylate (Norvasc) 10 mg PO DAILY [facility] Atorvastatin Calcium (Lipitor) 20 mg PO DAILY [facility] Last Admin: 11/07/16 12:57 Dose: 20 mg Calcitriol (Rocaltrol) 0.25 mcg PO MWF [facility] Last Admin: 11/06/16 09:17 Dose: 0.25 mcg Calcium Acetate (Phoslo) 1,334 mg PO TID [facility] Last Admin: 11/07/16 16:45 Dose: 1,334 mg Docusate Sodium (Colace) 100 mg PO BID [facility] Last Admin: 11/07/16 16:44 Dose: 100 mg Donepezil HCl (Aricept) 10 mg PO DAILY [facility] Last Admin: 11/07/16 08:47 Dose: 10 mg Hydralazine HCl (Apresoline) 25 mg PO BID [facility] Last Admin: 11/07/16 16:44 Dose: 25 mg Hydrocortisone (Hydrocortisone 2.5%) 1 applic TOP BID [facility] Last Admin: 11/07/16 16:45 Dose: 1 applic Vancomycin HCl 1 gm/ Sodium (Chloride) 250 mls @ 125 mls/hr IVPB MWF [facility] Last Admin: 11/06/16 21:03 Dose: 125 mls/hr Ibuprofen (Motrin Tab) 400 mg PO Q6H PRN PRN Reason: PAIN LEVEL ABOVE 7 Last Admin: 11/07/16 12:59 Dose: 400 mg Labetalol HCl (Trandate) 100 mg PO BID [facility] Last Admin: 11/07/16 16:45 Dose: 100 mg Lisinopril (Zestril) 5 mg PO DAILY [facility] Last Admin: 11/07/16 08:46 Dose: 5 mg Mirtazapine (Remeron) 7.5 mg PO HS [facility] Last Admin: 11/07/16 22:00 Dose: Not Given Ondansetron HCl (Zofran Inj) 4 mg IVP Q6 PRN PRN Reason: Nausea/Vomiting Triamcinolone Acetonide (Kenalog 0.1% Oint) 1 appl TOP BID [facility] Last Admin: 11/07/16 16:45 Dose: 1 applic Vitamin B Complex/Vit C/Folic Acid (Nephro-Valentino) 1 tab PO DAILY [facility] Last Admin: 11/07/16 08:45 Dose: 1 tab - Labs Labs: 11/06/16 11:27 11/06/16 11:27 PT 10.5 SECONDS (9.6-11.2) 11/06/16 11:27 INR 1.01 (0.92-1.08) 11/06/16 11:27 APTT 29.4 SECONDS (23.3-32.5) 11/06/16 11:27 - Constitutional Appears: Well, Non-toxic, No Acute Distress - Head Exam Head Exam: ATRAUMATIC, NORMAL INSPECTION, NORMOCEPHALIC - Eye Exam Eye Exam: EOMI, Normal appearance, PERRL Pupil Exam: NORMAL ACCOMODATION, PERRL - ENT Exam ENT Exam: Mucous Membranes Moist, Normal Exam - Neck Exam Neck Exam: Full ROM, Normal Inspection. absent: Lymphadenopathy - Respiratory Exam Respiratory Exam: Clear to Ausculation Bilateral, NORMAL BREATHING PATTERN - Cardiovascular Exam Cardiovascular Exam: REGULAR RHYTHM, +S1, +S2. absent: Murmur - GI/Abdominal Exam GI & Abdominal Exam: Soft, Normal Bowel Sounds. absent: Tenderness - Extremities Exam Extremities Exam: Full ROM, Normal Capillary Refill, Normal Inspection. absent : Joint Swelling, Pedal Edema - Back Exam Back Exam: NORMAL INSPECTION - Neurological Exam Neurological Exam: Alert, Awake, CN II-XII Intact, Normal Gait, Oriented x3 - Psychiatric Exam Psychiatric exam: Normal Affect, Normal Mood - Skin Skin Exam: Dry, Intact, Normal Color, Warm Assessment and Plan (1) DVT prophylaxis Status: Acute (2) Cellulitis of chest wall Status: Acute (3) Sepsis Status: Acute (4) End stage renal disease Status: Chronic - Assessment and Plan (Free Text) Assessment: (1) Cellulitis of chest wall/dialysis acess Assessment and Plan: vanco x 4 wks, zosyn-dc ID f/u c/s-mssa for permacath removal after dialysis-yesterday. for temp access yesterday, permacath tomorrow Status: Acute (2) End stage renal disease Assessment and Plan: neprho, cont dialysis schedule r chest wall perma cath dc, temp cath to be placed yesterday Status: Acute (3) Sepsis Assessment and Plan: f/u c/s ID Status: Acute (4) DVT prophylaxis Assessment and Plan: scd and ae hose Status: Acute left posterior ear pain-tylenol/motrin prn. ?? need for mastoid area ct. ct head normal. no pain at present, hold further imaging at present-no further complaitns. case d/c w/ surgical team
--- NOTE | 2016-11-08 07:50 | CP.PCM.PN ---
<Radha Maria - Last Filed: 11/08/16 07:48> Subjective - Date & Time of Evaluation Date of Evaluation: 11/08/16 Time of Evaluation: 07:48 - Subjective Subjective: General Surgery - Dr. Magallanes Pt S&[facility]. Pt had temporary dialysis cath placed yesterday. She denies any complaints today. No F/C, SOB/Cp. Objective - Vital Signs/Intake and Output Vital Signs (last 24 hours): Temp Pulse Resp BP Pulse Ox 98.4 F 79 19 172/63 H 98 11/08/16 05:00 11/08/16 05:00 11/08/16 05:00 11/08/16 05:00 11/08/16 05:00 Intake and Output: 11/08/16 11/08/16 06:59 18:59 Intake Total 100 Balance 100 - Medications Medications: Current Medications Acetaminophen (Tylenol 325mg Tab) 650 mg PO Q6 PRN PRN Reason: Pain, moderate (4-7) Last Admin: 11/05/16 05:14 Dose: 650 mg Alprazolam (Xanax) 0.5 mg PO TID PRN PRN Reason: Anxiety Last Admin: 11/07/16 21:25 Dose: 0.5 mg Amlodipine Besylate (Norvasc) 5 mg PO DAILY [facility] Last Admin: 11/07/16 08:45 Dose: 5 mg Amlodipine Besylate (Norvasc) 10 mg PO DAILY [facility] Atorvastatin Calcium (Lipitor) 20 mg PO DAILY [facility] Last Admin: 11/07/16 12:57 Dose: 20 mg Calcitriol (Rocaltrol) 0.25 mcg PO MWF [facility] Last Admin: 11/06/16 09:17 Dose: 0.25 mcg Calcium Acetate (Phoslo) 1,334 mg PO TID [facility] Last Admin: 11/07/16 16:45 Dose: 1,334 mg Docusate Sodium (Colace) 100 mg PO BID [facility] Last Admin: 11/07/16 16:44 Dose: 100 mg Donepezil HCl (Aricept) 10 mg PO DAILY [facility] Last Admin: 11/07/16 08:47 Dose: 10 mg Hydralazine HCl (Apresoline) 25 mg PO BID [facility] Last Admin: 11/07/16 16:44 Dose: 25 mg Hydrocortisone (Hydrocortisone 2.5%) 1 applic TOP BID [facility] Last Admin: 11/07/16 16:45 Dose: 1 applic Vancomycin HCl 1 gm/ Sodium (Chloride) 250 mls @ 125 mls/hr IVPB MWF [facility] Last Admin: 11/06/16 21:03 Dose: 125 mls/hr Ibuprofen (Motrin Tab) 400 mg PO Q6H PRN PRN Reason: PAIN LEVEL ABOVE 7 Last Admin: 11/07/16 12:59 Dose: 400 mg Labetalol HCl (Trandate) 100 mg PO BID [facility] Last Admin: 11/07/16 16:45 Dose: 100 mg Lisinopril (Zestril) 5 mg PO DAILY [facility] Last Admin: 11/07/16 08:46 Dose: 5 mg Mirtazapine (Remeron) 7.5 mg PO HS [facility] Last Admin: 11/07/16 22:00 Dose: Not Given Ondansetron HCl (Zofran Inj) 4 mg IVP Q6 PRN PRN Reason: Nausea/Vomiting Triamcinolone Acetonide (Kenalog 0.1% Oint) 1 appl TOP BID [facility] Last Admin: 11/07/16 16:45 Dose: 1 applic Vitamin B Complex/Vit C/Folic Acid (Nephro-Valentino) 1 tab PO DAILY [facility] Last Admin: 11/07/16 08:45 Dose: 1 tab - Labs Labs: 11/06/16 11:27 11/06/16 11:27 PT 10.5 SECONDS (9.6-11.2) 11/06/16 11:27 INR 1.01 (0.92-1.08) 11/06/16 11:27 APTT 29.4 SECONDS (23.3-32.5) 11/06/16 11:27 - Constitutional Appears: No Acute Distress - Head Exam Head Exam: ATRAUMATIC, NORMAL INSPECTION, NORMOCEPHALIC - Respiratory Exam Respiratory Exam: NORMAL BREATHING PATTERN. absent: Respiratory Distress Additional comments: S/P Permacath removal, wound C/D/I - Extremities Exam Additional comments: Right Femoral HD catheter in place, dressing C/D/I - Neurological Exam Neurological Exam: Alert, Awake - Psychiatric Exam Psychiatric exam: Normal Affect, Normal Mood - Skin Skin Exam: Dry, Intact Assessment and Plan - Assessment and Plan (Free Text) Assessment: 76F w/ bacteremia likely d/t infected permacath - Permacath removed 11/06 - Temporary HD cath placed yesterday in R Femoral - Continue Abx - New Permacath to be placed by IR in 1-2 weeks once cultures negative Dw Dr Elpidio Maria PGY2 <Luigi Magallanes - Last Filed: 11/08/16 10:19> Objective - Vital Signs/Intake and Output Vital Signs (last 24 hours): Temp Pulse Resp BP Pulse Ox 98.5 F 80 18 166/74 H 98 11/08/16 08:17 11/08/16 09:24 11/08/16 08:17 11/08/16 09:24 11/08/16 08:17 Intake and Output: 11/08/16 11/08/16 06:59 18:59 Intake Total 100 Balance 100 - Medications Medications: Current Medications Acetaminophen (Tylenol 325mg Tab) 650 mg PO Q6 PRN PRN Reason: Pain, moderate (4-7) Last Admin: 11/05/16 05:14 Dose: 650 mg Alprazolam (Xanax) 0.5 mg PO TID PRN PRN Reason: Anxiety Last Admin: 11/07/16 21:25 Dose: 0.5 mg Amlodipine Besylate (Norvasc) 10 mg PO DAILY [facility] Last Admin: 11/08/16 09:22 Dose: 10 mg Atorvastatin Calcium (Lipitor) 20 mg PO DAILY [facility] Last Admin: 11/08/16 09:22 Dose: 20 mg Calcitriol (Rocaltrol) 0.25 mcg PO MWF [facility] Last Admin: 11/08/16 09:22 Dose: 0.25 mcg Calcium Acetate (Phoslo) 1,334 mg PO TID [facility] Last Admin: 11/08/16 09:21 Dose: 1,334 mg Docusate Sodium (Colace) 100 mg PO BID [facility] Last Admin: 11/08/16 09:24 Dose: 100 mg Donepezil HCl (Aricept) 10 mg PO DAILY [facility] Last Admin: 11/08/16 09:23 Dose: 10 mg Hydralazine HCl (Apresoline) 25 mg PO BID [facility] Last Admin: 11/08/16 09:23 Dose: 25 mg Hydrocortisone (Hydrocortisone 2.5%) 1 applic TOP BID [facility] Last Admin: 11/08/16 09:21 Dose: 1 applic Vancomycin HCl 1 gm/ Sodium (Chloride) 250 mls @ 125 mls/hr IVPB MWF [facility] Last Admin: 11/08/16 09:25 Dose: 125 mls/hr Ibuprofen (Motrin Tab) 400 mg PO Q6H PRN PRN Reason: PAIN LEVEL ABOVE 7 Last Admin: 11/07/16 12:59 Dose: 400 mg Labetalol HCl (Trandate) 100 mg PO BID [facility] Last Admin: 11/08/16 09:24 Dose: 100 mg Lisinopril (Zestril) 5 mg PO DAILY [facility] Last Admin: 11/08/16 09:24 Dose: 5 mg Mirtazapine (Remeron) 7.5 mg PO HS [facility] Last Admin: 11/07/16 22:00 Dose: Not Given Ondansetron HCl (Zofran Inj) 4 mg IVP Q6 PRN PRN Reason: Nausea/Vomiting Triamcinolone Acetonide (Kenalog 0.1% Oint) 1 appl TOP BID [facility] Last Admin: 11/08/16 09:21 Dose: 1 applic Vitamin B Complex/Vit C/Folic Acid (Nephro-Valentino) 1 tab PO DAILY [facility] Last Admin: 11/08/16 09:21 Dose: 1 tab - Labs Labs: 11/06/16 11:27 11/06/16 11:27 PT 10.5 SECONDS (9.6-11.2) 11/06/16 11:27 INR 1.01 (0.92-1.08) 11/06/16 11:27 APTT 29.4 SECONDS (23.3-32.5) 11/06/16 11:27 Assessment and Plan - Assessment and Plan (Free Text) Plan: - Permacath placement by IR once bacteremia clears - General surgery will sign off - Please re-consult as needed
[2016-11-08] MEDS: Multivitamin Vitamin B Complex (Nephro-Vite) Tab PO SCH (09:21)
--- NOTE | 2016-11-08 11:51 | CP.PCM.PN ---
Subjective - Date & Time of Evaluation Date of Evaluation: 11/08/16 Time of Evaluation: 11:49 - Subjective Subjective: Patient feeling much better she is awake although she is forgetful Vital signs stable Hemodialysis about to start now Ultrafiltration approximately 1500 mL as tolerated Calcium bath 2 mEq Objective - Vital Signs/Intake and Output Vital Signs (last 24 hours): Temp Pulse Resp BP Pulse Ox 98.5 F 80 18 166/74 H 98 11/08/16 08:17 11/08/16 09:24 11/08/16 08:17 11/08/16 09:24 11/08/16 08:17 Intake and Output: 11/08/16 11/08/16 06:59 18:59 Intake Total 100 Balance 100 - Medications Medications: Current Medications Acetaminophen (Tylenol 325mg Tab) 650 mg PO Q6 PRN PRN Reason: Pain, moderate (4-7) Last Admin: 11/05/16 05:14 Dose: 650 mg Alprazolam (Xanax) 0.5 mg PO TID PRN PRN Reason: Anxiety Last Admin: 11/07/16 21:25 Dose: 0.5 mg Amlodipine Besylate (Norvasc) 10 mg PO DAILY [facility] Last Admin: 11/08/16 09:22 Dose: 10 mg Atorvastatin Calcium (Lipitor) 20 mg PO DAILY [facility] Last Admin: 11/08/16 09:22 Dose: 20 mg Calcitriol (Rocaltrol) 0.25 mcg PO MWF [facility] Last Admin: 11/08/16 09:22 Dose: 0.25 mcg Calcium Acetate (Phoslo) 1,334 mg PO TID [facility] Last Admin: 11/08/16 09:21 Dose: 1,334 mg Docusate Sodium (Colace) 100 mg PO BID [facility] Last Admin: 11/08/16 09:24 Dose: 100 mg Donepezil HCl (Aricept) 10 mg PO DAILY [facility] Last Admin: 11/08/16 09:23 Dose: 10 mg Hydralazine HCl (Apresoline) 25 mg PO BID [facility] Last Admin: 11/08/16 09:23 Dose: 25 mg Hydrocortisone (Hydrocortisone 2.5%) 1 applic TOP BID [facility] Last Admin: 11/08/16 09:21 Dose: 1 applic Ibuprofen (Motrin Tab) 400 mg PO Q6H PRN PRN Reason: PAIN LEVEL ABOVE 7 Last Admin: 11/07/16 12:59 Dose: 400 mg Labetalol HCl (Trandate) 100 mg PO BID [facility] Last Admin: 11/08/16 09:24 Dose: 100 mg Lisinopril (Zestril) 5 mg PO DAILY [facility] Last Admin: 11/08/16 09:24 Dose: 5 mg Mirtazapine (Remeron) 7.5 mg PO HS [facility] Last Admin: 11/07/16 22:00 Dose: Not Given Ondansetron HCl (Zofran Inj) 4 mg IVP Q6 PRN PRN Reason: Nausea/Vomiting Triamcinolone Acetonide (Kenalog 0.1% Oint) 1 appl TOP BID [facility] Last Admin: 11/08/16 09:21 Dose: 1 applic Vancomycin HCl (Vancomycin Inj) 750 [facility] Vitamin B Complex/Vit C/Folic Acid (Nephro-Valentino) 1 tab PO DAILY [facility] Last Admin: 11/08/16 09:21 Dose: 1 tab - Labs Labs: 11/06/16 11:27 11/06/16 11:27 PT 10.5 SECONDS (9.6-11.2) 11/06/16 11:27 INR 1.01 (0.92-1.08) 11/06/16 11:27 APTT 29.4 SECONDS (23.3-32.5) 11/06/16 11:27 - Constitutional Appears: No Acute Distress - ENT Exam ENT Exam: Mucous Membranes Moist - Respiratory Exam Respiratory Exam: absent: Chest Wall Tenderness - Cardiovascular Exam Cardiovascular Exam: REGULAR RHYTHM. absent: Rubs - GI/Abdominal Exam GI & Abdominal Exam: Normal Bowel Sounds. absent: Guarding - Extremities Exam Extremities Exam: absent: Calf Tenderness - Back Exam Back Exam: absent: CVA tenderness (L), CVA tenderness (R) - Neurological Exam Neurological Exam: Alert Assessment and Plan (1) End stage renal disease Assessment & Plan: Patient with end stage renal disease on hemodialysis Sunday scheduled to have dialysis now from femoral catheter temporary. Patient to have permacath hopefully by tomorrow at the most and then she can go home Sepsis with Staphylococcus sepsis which has been resolved patient responded very well to vancomycin I decreased the dose to 750 mg pending serum vancomycin level. Status: Chronic (2) Sepsis Status: Acute
--- NOTE | 2016-11-09 06:52 | CP.PCM.PN ---
Subjective - Date & Time of Evaluation Date of Evaluation: 11/09/16 Time of Evaluation: 06:52 - Subjective Subjective: no complaintsdistress no f/c, n/v/d labs noted for permacath today w/IR ?? dc after Objective - Vital Signs/Intake and Output Vital Signs (last 24 hours): Temp Pulse Resp BP Pulse Ox 97.6 F 69 18 150/62 98 11/09/16 05:00 11/09/16 05:00 11/09/16 05:00 11/09/16 05:00 11/09/16 05:00 Intake and Output: 11/08/16 11/09/16 18:59 06:59 Intake Total 250 Balance 250 - Medications Medications: Current Medications Acetaminophen (Tylenol 325mg Tab) 650 mg PO Q6 PRN PRN Reason: Pain, moderate (4-7) Last Admin: 11/05/16 05:14 Dose: 650 mg Alprazolam (Xanax) 0.5 mg PO TID PRN PRN Reason: Anxiety Last Admin: 11/08/16 22:21 Dose: 0.5 mg Amlodipine Besylate (Norvasc) 10 mg PO DAILY [facility] Last Admin: 11/08/16 09:22 Dose: 10 mg Atorvastatin Calcium (Lipitor) 20 mg PO DAILY [facility] Last Admin: 11/08/16 09:22 Dose: 20 mg Calcitriol (Rocaltrol) 0.25 mcg PO MWF [facility] Last Admin: 11/08/16 09:22 Dose: 0.25 mcg Calcium Acetate (Phoslo) 1,334 mg PO TID [facility] Last Admin: 11/08/16 16:32 Dose: 1,334 mg Docusate Sodium (Colace) 100 mg PO BID [facility] Last Admin: 11/08/16 16:34 Dose: 100 mg Donepezil HCl (Aricept) 10 mg PO DAILY [facility] Last Admin: 11/08/16 09:23 Dose: 10 mg Hydralazine HCl (Apresoline) 25 mg PO BID [facility] Last Admin: 11/08/16 16:33 Dose: 25 mg Hydrocortisone (Hydrocortisone 2.5%) 1 applic TOP BID [facility] Last Admin: 11/08/16 16:32 Dose: 1 applic Vancomycin HCl 750 mg/ Sodium (Chloride) 250 mls @ 250 mls/hr IVPB MWF [facility] Ibuprofen (Motrin Tab) 400 mg PO Q6H PRN PRN Reason: PAIN LEVEL ABOVE 7 Last Admin: 11/08/16 22:21 Dose: 400 mg Labetalol HCl (Trandate) 100 mg PO BID [facility] Last Admin: 11/08/16 16:32 Dose: 100 mg Lisinopril (Zestril) 5 mg PO DAILY [facility] Last Admin: 11/08/16 09:24 Dose: 5 mg Mirtazapine (Remeron) 7.5 mg PO HS [facility] Last Admin: 11/08/16 22:00 Dose: Not Given Ondansetron HCl (Zofran Inj) 4 mg IVP Q6 PRN PRN Reason: Nausea/Vomiting Triamcinolone Acetonide (Kenalog 0.1% Oint) 1 appl TOP BID [facility] Last Admin: 11/08/16 16:34 Dose: 1 applic Vitamin B Complex/Vit C/Folic Acid (Nephro-Valentino) 1 tab PO DAILY [facility] Last Admin: 11/08/16 09:21 Dose: 1 tab - Labs Labs: 11/06/16 11:27 11/06/16 11:27 PT 10.5 SECONDS (9.6-11.2) 11/06/16 11:27 INR 1.01 (0.92-1.08) 11/06/16 11:27 APTT 29.4 SECONDS (23.3-32.5) 11/06/16 11:27 - Constitutional Appears: Well, Non-toxic, No Acute Distress - Head Exam Head Exam: ATRAUMATIC, NORMAL INSPECTION, NORMOCEPHALIC - Eye Exam Eye Exam: EOMI, Normal appearance, PERRL Pupil Exam: NORMAL ACCOMODATION, PERRL - ENT Exam ENT Exam: Mucous Membranes Moist, Normal Exam - Neck Exam Neck Exam: Full ROM, Normal Inspection. absent: Lymphadenopathy - Respiratory Exam Respiratory Exam: Clear to Ausculation Bilateral, NORMAL BREATHING PATTERN - Cardiovascular Exam Cardiovascular Exam: REGULAR RHYTHM, RRR, +S1, +S2. absent: Murmur - GI/Abdominal Exam GI & Abdominal Exam: Soft, Normal Bowel Sounds. absent: Tenderness - Extremities Exam Extremities Exam: Full ROM, Normal Capillary Refill, Normal Inspection. absent : Joint Swelling, Pedal Edema - Back Exam Back Exam: NORMAL INSPECTION - Neurological Exam Neurological Exam: Alert, Awake, CN II-XII Intact, Normal Gait, Oriented x3 - Psychiatric Exam Psychiatric exam: Normal Affect, Normal Mood - Skin Skin Exam: Dry, Intact, Normal Color, Warm Assessment and Plan (1) DVT prophylaxis Status: Acute (2) Cellulitis of chest wall Status: Acute (3) Sepsis Status: Acute (4) End stage renal disease Status: Chronic - Assessment and Plan (Free Text) Assessment: (1) Cellulitis of chest wall/dialysis acess Assessment and Plan: vanco x 4 wks, zosyn-dc ID f/u c/s-mssa for permacath removal after dialysis-yesterday. for temp access yesterday, permacath today Status: Acute (2) End stage renal disease Assessment and Plan: neprho, cont dialysis schedule r chest wall perma cath dc, temp cath in place Status: Acute (3) Sepsis Assessment and Plan: f/u c/s ID outpt vanco x 4 wks Status: Acute (4) DVT prophylaxis Assessment and Plan: scd and ae vita
[2016-11-09 07:14] LABS: BASO # 0.1 K/uL (0.0-0.2); BASO % 1.6 % (0.0-2.0); EOS # 0.8 K/uL (0.0-0.7); EOS % 13.2 % (0.0-4.0); LYMPH # 1.9 K/uL (1.0-4.3); LYMPH % 33.5 % (20.0-40.0); MEAN CELL VOLUME 87.5 fl (81.0-99.0); MEAN CORPUSCULAR HGB CONC 33.2 g/dL (33.0-37.0); MONO # 1.2 K/uL (0.0-0.8); MONO % 20.4 % (0.0-10.0); NEUT # 1.8 K/uL (1.8-7.0); NEUT % 31.3 % (50.0-75.0); NRBC % 0.1 % (0.0-0.0); PLATELET COUNT 92 K/uL (130-400); RED CELL DISTRIBUTION WIDTH 14.1 % (11.5-14.5); WHITE BLOOD COUNT 5.8 K/uL (4.8-10.8)
[2016-11-09 07:29] LABS: ALB/GLOB RATIO 1.2 (1.0-2.1); BILIRUBIN,TOTAL 0.4 mg/dl (0.2-1.3); POTASSIUM 4.4 MMOL/L (3.6-5.0); TOTAL PROTEIN 6.5 G/DL (6.3-8.2)
[2016-11-09 08:57] LABS: BASOPHIL 2 % (0-2); EOSINOPHIL 10 % (0-7); NEUTROPHIL 38 % (42-75); TOTAL CELLS COUNTED 200
--- NOTE | 2016-11-09 09:05 | CARD ---
APPROVED REPORT EXAM: Two-dimensional and M-mode echocardiogram with Doppler and color Doppler. Other Information Quality : GoodRhythm : NSR INDICATION Infection:Subacute bacterial endocarditis 2D DIMENSIONS IVSd1.26 (0.7-1.1cm)LVDd4.15 (3.9-5.9cm) LVOT Diameter2.09 (1.8-2.4cm)PWd1.13 (0.7-1.1cm) IVSs1.42 (0.8-1.2cm)LVDs3.28 (2.5-4.0cm) FS (%) 20.9 %PWs1.92 (0.8-1.2cm) M-Mode DIMENSIONS Left Atrium (MM)4.47 (2.5-4.0cm)IVSd0.99 (0.7-1.1cm) Aortic Root2.58 (2.2-3.7cm)LVDd6.52 (4.0-5.6cm) Aortic Cusp Exc.1.39 (1.5-2.0cm)PWd1.16 (0.7-1.1cm) IVSs1.16 cmFS (%) 34 % LVDs4.33 (2.0-3.8cm)PWs1.56 cm Mitral Valve MV E Jcomakby88.1cm/sMV DECEL [id number] A Rivavkop930.1cm/s MV [id number]/A ratio0.6MVA (PHT)1.51cm2 TDI E/Lateral E'0.0E/Medial E'0.0 Tricuspid Valve TR Peak [id number] [id number] Peak Gr.29mmHg [id number] LEFT VENTRICLE The left ventricle is normal size. There is borderline concentric left ventricular hypertrophy. Left ventricle systolic function is normal. The Ejection Fraction is 60-65%. There is normal LV segmental wall motion. Transmitral Doppler flow pattern is Grade I-abnormal relaxation pattern. RIGHT VENTRICLE The right ventricle is normal size. There is normal right ventricular wall thickness. The right ventricular systolic function is normal. ATRIA The left atrium is mildly dilated. The right atrium size is normal. AORTIC VALVE The aortic valve is mildly sclerotic. No aortic regurgitation is present. A mild peak AO valve gradient of -25 mm Hg was recorded at the AO valve. MITRAL VALVE Mitral annular calcification is moderate to severe. There is no evidence of mitral valve prolapse. There is no mitral valve stenosis. Mitral regurgitation is mild. TRICUSPID VALVE The tricuspid valve is normal in structure. There is mild tricuspid regurgitation. Right ventricular systolic pressure is estimated at 41 mmHg. There is mild-moderate pulmonary hypertension. PULMONIC VALVE The pulmonary valve is normal in structure and function. There is no pulmonic valvular regurgitation. GREAT VESSELS The aortic root is normal in size. Due to poor image quality, the IVC could not be assessed. PERICARDIAL EFFUSION The pericardium appears normal. <Conclusion> The left ventricle is normal size. There is borderline concentric left ventricular hypertrophy. There is normal LV segmental wall motion. Left ventricle systolic function is normal. The Ejection Fraction is 60-65%. Transmitral Doppler flow pattern is Grade I-abnormal relaxation pattern. A mild peak AO valve gradient of -25 mm Hg was recorded at the AO valve. Mitral annular calcification is moderate to severe. Mitral regurgitation is mild. There is mild tricuspid regurgitation. There is mild-moderate pulmonary hypertension. No vegetations detected on this TTE.
[2016-11-09] MEDS: Multivitamin Vitamin B Complex (Nephro-Vite) Tab PO SCH (09:44)
--- NOTE | 2016-11-09 11:31 | CP.PCM.PN ---
Subjective - Date & Time of Evaluation Date of Evaluation: 11/09/16 Time of Evaluation: 11:30 - Subjective Subjective: Comfortable in bed Objective - Vital Signs/Intake and Output Vital Signs (last 24 hours): Temp Pulse Resp BP Pulse Ox 97.9 F 67 18 136/66 97 11/09/16 08:19 11/09/16 09:47 11/09/16 08:19 11/09/16 09:47 11/09/16 08:19 Intake and Output: 11/09/16 11/09/16 06:59 18:59 Intake Total 250 Balance 250 - Medications Medications: Current Medications Acetaminophen (Tylenol 325mg Tab) 650 mg PO Q6 PRN PRN Reason: Pain, moderate (4-7) Last Admin: 11/05/16 05:14 Dose: 650 mg Alprazolam (Xanax) 0.5 mg PO TID PRN PRN Reason: Anxiety Last Admin: 11/08/16 22:21 Dose: 0.5 mg Amlodipine Besylate (Norvasc) 10 mg PO DAILY [facility] Last Admin: 11/09/16 09:45 Dose: 10 mg Atorvastatin Calcium (Lipitor) 20 mg PO DAILY [facility] Last Admin: 11/09/16 09:44 Dose: 20 mg Calcitriol (Rocaltrol) 0.25 mcg PO MWF [facility] Last Admin: 11/08/16 09:22 Dose: 0.25 mcg Calcium Acetate (Phoslo) 1,334 mg PO TID [facility] Last Admin: 11/09/16 09:43 Dose: 1,334 mg Docusate Sodium (Colace) 100 mg PO BID [facility] Last Admin: 11/09/16 09:44 Dose: 100 mg Donepezil HCl (Aricept) 10 mg PO DAILY [facility] Last Admin: 11/09/16 09:44 Dose: 10 mg Hydralazine HCl (Apresoline) 25 mg PO BID [facility] Last Admin: 11/09/16 09:42 Dose: 25 mg Hydrocortisone (Hydrocortisone 2.5%) 1 applic TOP BID [facility] Last Admin: 11/09/16 09:46 Dose: 1 applic Vancomycin HCl 750 mg/ Sodium (Chloride) 250 mls @ 250 mls/hr IVPB MWF [facility] Ibuprofen (Motrin Tab) 400 mg PO Q6H PRN PRN Reason: PAIN LEVEL ABOVE 7 Last Admin: 11/08/16 22:21 Dose: 400 mg Labetalol HCl (Trandate) 100 mg PO BID [facility] Last Admin: 11/09/16 09:43 Dose: 100 mg Lisinopril (Zestril) 5 mg PO DAILY [facility] Last Admin: 11/09/16 09:47 Dose: 5 mg Mirtazapine (Remeron) 7.5 mg PO HS [facility] Last Admin: 11/08/16 22:00 Dose: Not Given Ondansetron HCl (Zofran Inj) 4 mg IVP Q6 PRN PRN Reason: Nausea/Vomiting Triamcinolone Acetonide (Kenalog 0.1% Oint) 1 appl TOP BID [facility] Last Admin: 11/09/16 09:46 Dose: 1 applic Vitamin B Complex/Vit C/Folic Acid (Nephro-Valentino) 1 tab PO DAILY [facility] Last Admin: 11/09/16 09:44 Dose: 1 tab - Labs Labs: 11/09/16 06:00 11/09/16 06:00 PT 10.5 SECONDS (9.6-11.2) 11/06/16 11:27 INR 1.01 (0.92-1.08) 11/06/16 11:27 APTT 29.4 SECONDS (23.3-32.5) 11/06/16 11:27 - Respiratory Exam Additional comments: Lungs clear - Cardiovascular Exam Cardiovascular Exam: REGULAR RHYTHM - Extremities Exam Additional comments: No edema + bruit over Lt AVF Assessment and Plan - Assessment and Plan (Free Text) Assessment: ESRD HD MWF HTN Sepsis Staph. aureus in blood. On Vanco DM Plan: Scheduled for perm. catheter placement. Currently dialyzed via femoral catheter Continue Vanco
--- NOTE | 2016-11-09 16:22 | US ---
AV shunt study History: Left upper arm AV shunt. Technique: Ultrasound evaluation of the left upper arm AV shunt Findings: Inflow artery is patent. The arterial venous anastomosis is patent with mild inflow stenosis. The anastomosis depth is approximately 4-5 millimeters. The outflow vein is patent. The proximal outflow vein demonstrates hyperplasia with resultant hemodynamically significant narrowing. Peak systolic velocity at this focal segment is 260.0 centimeters/second. The proximal outflow vein is at 1.02 centimeter depth the main outflow vein is at 0.86 centimeter depth and the distal outflow vein is at 1.44 centimeter depth. Impression: Patent left upper arm AV fistula with focal hemodynamically significant stenosis at the proximal outflow vein. Depth measurements are as above.
--- NOTE | 2016-11-10 07:49 | CP.PCM.PN ---
Subjective - Date & Time of Evaluation Date of Evaluation: 11/10/16 Time of Evaluation: 07:49 - Subjective Subjective: no complaints/distress no f/.c n/v/d for permacath and dialysis todya, possible dc after vanco w/ diaysis x 4 wks repeat bc in 1 wk Objective - Vital Signs/Intake and Output Vital Signs (last 24 hours): Temp Pulse Resp BP Pulse Ox 98.6 F 81 17 152/65 H 98 11/09/16 22:00 11/09/16 22:00 11/09/16 22:00 11/09/16 22:00 11/09/16 22:00 - Medications Medications: Current Medications Acetaminophen (Tylenol 325mg Tab) 650 mg PO Q6 PRN PRN Reason: Pain, moderate (4-7) Last Admin: 11/05/16 05:14 Dose: 650 mg Alprazolam (Xanax) 0.5 mg PO TID PRN PRN Reason: Anxiety Last Admin: 11/08/16 22:21 Dose: 0.5 mg Amlodipine Besylate (Norvasc) 10 mg PO DAILY [facility] Last Admin: 11/09/16 09:45 Dose: 10 mg Atorvastatin Calcium (Lipitor) 20 mg PO DAILY [facility] Last Admin: 11/09/16 09:44 Dose: 20 mg Calcitriol (Rocaltrol) 0.25 mcg PO MWF [facility] Last Admin: 11/08/16 09:22 Dose: 0.25 mcg Calcium Acetate (Phoslo) 1,334 mg PO TID [facility] Last Admin: 11/09/16 16:20 Dose: 1,334 mg Docusate Sodium (Colace) 100 mg PO BID [facility] Last Admin: 11/09/16 16:21 Dose: 100 mg Donepezil HCl (Aricept) 10 mg PO DAILY [facility] Last Admin: 11/09/16 09:44 Dose: 10 mg Hydralazine HCl (Apresoline) 25 mg PO BID [facility] Last Admin: 11/09/16 16:20 Dose: 25 mg Hydrocortisone (Hydrocortisone 2.5%) 1 applic TOP BID [facility] Last Admin: 11/09/16 16:22 Dose: 1 applic Vancomycin HCl 750 mg/ Sodium (Chloride) 250 mls @ 250 mls/hr IVPB MWF [facility] Ibuprofen (Motrin Tab) 400 mg PO Q6H PRN PRN Reason: PAIN LEVEL ABOVE 7 Last Admin: 11/08/16 22:21 Dose: 400 mg Labetalol HCl (Trandate) 100 mg PO BID [facility] Last Admin: 11/09/16 16:21 Dose: 100 mg Lisinopril (Zestril) 5 mg PO DAILY [facility] Last Admin: 11/09/16 09:47 Dose: 5 mg Mirtazapine (Remeron) 7.5 mg PO HS [facility] Last Admin: 11/09/16 22:41 Dose: 7.5 mg Ondansetron HCl (Zofran Inj) 4 mg IVP Q6 PRN PRN Reason: Nausea/Vomiting Triamcinolone Acetonide (Kenalog 0.1% Oint) 1 appl TOP BID [facility] Last Admin: 11/09/16 16:22 Dose: 1 applic Vitamin B Complex/Vit C/Folic Acid (Nephro-Valentino) 1 tab PO DAILY [facility] Last Admin: 11/09/16 09:44 Dose: 1 tab - Labs Labs: 11/09/16 06:00 11/09/16 06:00 PT 10.5 SECONDS (9.6-11.2) 11/06/16 11:27 INR 1.01 (0.92-1.08) 11/06/16 11:27 APTT 29.4 SECONDS (23.3-32.5) 11/06/16 11:27 - Constitutional Appears: Well, Non-toxic, No Acute Distress - Head Exam Head Exam: ATRAUMATIC, NORMAL INSPECTION, NORMOCEPHALIC - Eye Exam Eye Exam: EOMI, Normal appearance, PERRL Pupil Exam: NORMAL ACCOMODATION, PERRL - ENT Exam ENT Exam: Mucous Membranes Moist, Normal Exam - Neck Exam Neck Exam: Full ROM, Normal Inspection. absent: Lymphadenopathy - Respiratory Exam Respiratory Exam: Clear to Ausculation Bilateral, NORMAL BREATHING PATTERN - Cardiovascular Exam Cardiovascular Exam: REGULAR RHYTHM, +S1, +S2. absent: Murmur - GI/Abdominal Exam GI & Abdominal Exam: Soft, Normal Bowel Sounds. absent: Tenderness - Extremities Exam Extremities Exam: Full ROM, Normal Capillary Refill, Normal Inspection. absent : Joint Swelling, Pedal Edema - Back Exam Back Exam: NORMAL INSPECTION - Neurological Exam Neurological Exam: Alert, Awake, CN II-XII Intact, Normal Gait, Oriented x3 - Psychiatric Exam Psychiatric exam: Normal Affect, Normal Mood - Skin Skin Exam: Dry, Intact, Normal Color, Warm Assessment and Plan (1) DVT prophylaxis Assessment & Plan: scd and ae hose hold anticoag for permacath Status: Acute (2) Cellulitis of chest wall Assessment & Plan: resolved secondary to permacath infection, cont anbx Status: Acute (3) Sepsis Assessment & Plan: r/t permacath infectio and bacteremia. cont anco,c ont consults, site wher epermacath was is scabbed over c/d/i. Status: Acute (4) End stage renal disease Assessment & Plan: for new peramcath today and cont dialysis Status: Chronic
[2016-11-10 08:13] LABS: BASO # 0.1 K/uL (0.0-0.2); BASO % 1.6 % (0.0-2.0); EOS # 0.9 K/uL (0.0-0.7); EOS % 12.6 % (0.0-4.0); HEMATOCRIT 40.3 % (34.0-47.0); LYMPH # 2.3 K/uL (1.0-4.3); LYMPH % 31.6 % (20.0-40.0); MEAN CELL VOLUME 88.2 fl (81.0-99.0); MEAN CORPUSCULAR HEMOGLOBIN 28.9 pg (27.0-31.0); MEAN CORPUSCULAR HGB CONC 32.8 g/dL (33.0-37.0); MEAN PLATELET VOLUME 10.6 fl (7.2-11.7); NEUT % 40.2 % (50.0-75.0); RED CELL DISTRIBUTION WIDTH 14.1 % (11.5-14.5); WHITE BLOOD COUNT 7.3 K/uL (4.8-10.8)
[2016-11-10 08:35] LABS: ALB/GLOB RATIO 1.2 (1.0-2.1); BILIRUBIN,TOTAL 0.4 mg/dl (0.2-1.3); CALCIUM 9.3 mg/dL (8.4-10.2); POTASSIUM 4.5 MMOL/L (3.6-5.0)
[2016-11-10] MEDS: Multivitamin Vitamin B Complex (Nephro-Vite) Tab PO SCH (08:59)
[2016-11-10] MEDS ORDERED: Vancomycin 500 mg Inj IVPB SCH (09:00)
[2016-11-10] MEDS ORDERED: Midazolam 2 MG/2 ML VIAL ONE (11:40)
[2016-11-10] MEDS ORDERED: Lidocaine 1% Inj (20ml) ONE (11:52)
--- NOTE | 2016-11-10 12:35 | PCM.SURG1 ---
Surgeon's Initial Post Op Note - Surgeon's Notes Surgeon: [employer] Interviewer: None Type of Anesthesia: IV Sedation, Local Pre-Operative Diagnosis: RF Operative Findings: Patent left IJV Post-Operative Diagnosis: RF Operation Performed: Left chest tunneled HD catheter placed via left IJV Specimen/Specimens Removed: right going non tunneled HD catheter. Estimated Blood Loss: EBL {In ML}: 2 Date of Surgery/Procedure: 11/10/16 Time of Surgery/Procedure: 12:05
[2016-11-10] MEDS ORDERED: Sodium Chloride 0.9% 1,000 ML IV SCH (13:00)
--- NOTE | 2016-11-10 14:27 | CP.PCM.PN ---
Subjective - Date & Time of Evaluation Date of Evaluation: 11/10/16 Time of Evaluation: 14:23 - Subjective Subjective: Patient consciousness alert feels good no fever appetite is good Repeat blood culture negative Patient went for pneumonia right subclavian tunneled catheter for hemodialysis which is starting now Ultrafiltration 2000 mL Potassium bath 2 mEq Physical exam Chest clear Heart no rubs Abdomen soft Extremity no edema Impression and plan Staphylococcus sepsis recovered and removing the old catheter removing the femoral catheter and placing new tunneled catheter possible dish. post HD vancomycin as outpatient Objective - Vital Signs/Intake and Output Vital Signs (last 24 hours): Temp Pulse Resp BP Pulse Ox 98.3 F 66 20 165/65 H 98 11/10/16 14:05 11/10/16 14:05 11/10/16 14:05 11/10/16 14:05 11/10/16 14:05 - Medications Medications: Current Medications Acetaminophen (Tylenol 325mg Tab) 650 mg PO Q6 PRN PRN Reason: Pain, moderate (4-7) Last Admin: 11/05/16 05:14 Dose: 650 mg Alprazolam (Xanax) 0.5 mg PO TID PRN PRN Reason: Anxiety Last Admin: 11/08/16 22:21 Dose: 0.5 mg Amlodipine Besylate (Norvasc) 10 mg PO DAILY [facility] Last Admin: 11/10/16 08:59 Dose: Not Given Atorvastatin Calcium (Lipitor) 20 mg PO DAILY [facility] Last Admin: 11/10/16 08:59 Dose: Not Given Calcitriol (Rocaltrol) 0.25 mcg PO MWF [facility] Last Admin: 11/10/16 09:00 Dose: Not Given Calcium Acetate (Phoslo) 1,334 mg PO TID [facility] Last Admin: 11/10/16 14:04 Dose: 1,334 mg Docusate Sodium (Colace) 100 mg PO BID [facility] Last Admin: 11/10/16 08:58 Dose: Not Given Donepezil HCl (Aricept) 10 mg PO DAILY [facility] Last Admin: 11/10/16 08:58 Dose: Not Given Hydralazine HCl (Apresoline) 25 mg PO BID [facility] Last Admin: 11/10/16 08:58 Dose: 25 mg Hydrocortisone (Hydrocortisone 2.5%) 1 applic TOP BID [facility] Last Admin: 11/10/16 08:59 Dose: 1 applic Vancomycin HCl 750 mg/ Sodium (Chloride) 250 mls @ 250 mls/hr IVPB MWF [facility] Last Admin: 11/10/16 09:05 Dose: 250 mls/hr Sodium Chloride (Sodium Chloride 0.9%) 1,000 mls @ 0 mls/hr IV .Q0M ANKUR PRN Reason: As Directed Ibuprofen (Motrin Tab) 400 mg PO Q6H PRN PRN Reason: PAIN LEVEL ABOVE 7 Last Admin: 11/10/16 14:04 Dose: 400 mg Labetalol HCl (Trandate) 100 mg PO BID [facility] Last Admin: 11/10/16 08:57 Dose: 100 mg Lisinopril (Zestril) 5 mg PO DAILY [facility] Last Admin: 11/10/16 09:00 Dose: Not Given Mirtazapine (Remeron) 7.5 mg PO HS [facility] Last Admin: 11/09/16 22:41 Dose: 7.5 mg Ondansetron HCl (Zofran Inj) 4 mg IVP Q6 PRN PRN Reason: Nausea/Vomiting Triamcinolone Acetonide (Kenalog 0.1% Oint) 1 appl TOP BID [facility] Last Admin: 11/10/16 08:59 Dose: 1 applic Vitamin B Complex/Vit C/Folic Acid (Nephro-Valentino) 1 tab PO DAILY [facility] Last Admin: 11/10/16 08:59 Dose: Not Given - Labs Labs: 11/10/16 07:45 11/10/16 07:45 PT 10.6 SECONDS (9.6-11.2) 11/10/16 07:45 INR 1.02 (0.92-1.08) 11/10/16 07:45 APTT 29.4 SECONDS (23.3-32.5) 11/06/16 11:27 Assessment and Plan (1) End stage renal disease Status: Chronic (2) Sepsis Status: Acute
[2016-11-10 16:50] VITALS: RESP 18
[2016-11-10 23:47] VITALS: BP 162/63; PULSE 70; TEMP 98.7; O2SAT 98
--- NOTE | 2016-11-11 07:04 | CP.PCM.PN ---
Subjective - Date & Time of Evaluation Date of Evaluation: 11/11/16 Time of Evaluation: 07:04 - Subjective Subjective: no complaints/distress no f/c, mn/v/d. for dc today. s/p permacath placement. s/p dialysis. bw noted Objective - Vital Signs/Intake and Output Vital Signs (last 24 hours): Temp Pulse Resp BP Pulse Ox 98.7 F 70 18 162/63 H 98 11/10/16 20:47 11/10/16 20:47 11/10/16 20:47 11/10/16 20:47 11/10/16 20:47 - Medications Medications: Current Medications Acetaminophen (Tylenol 325mg Tab) 650 mg PO Q6 PRN PRN Reason: Pain, moderate (4-7) Last Admin: 11/05/16 05:14 Dose: 650 mg Alprazolam (Xanax) 0.5 mg PO TID PRN PRN Reason: Anxiety Last Admin: 11/08/16 22:21 Dose: 0.5 mg Amlodipine Besylate (Norvasc) 10 mg PO DAILY [facility] Last Admin: 11/10/16 08:59 Dose: Not Given Atorvastatin Calcium (Lipitor) 20 mg PO DAILY [facility] Last Admin: 11/10/16 08:59 Dose: Not Given Calcitriol (Rocaltrol) 0.25 mcg PO MWF [facility] Last Admin: 11/10/16 09:00 Dose: Not Given Calcium Acetate (Phoslo) 1,334 mg PO TID [facility] Last Admin: 11/10/16 18:12 Dose: 1,334 mg Docusate Sodium (Colace) 100 mg PO BID [facility] Last Admin: 11/10/16 18:07 Dose: 100 mg Donepezil HCl (Aricept) 10 mg PO DAILY [facility] Last Admin: 11/10/16 08:58 Dose: Not Given Hydralazine HCl (Apresoline) 25 mg PO BID [facility] Last Admin: 11/10/16 18:04 Dose: Not Given Hydrocortisone (Hydrocortisone 2.5%) 1 applic TOP BID [facility] Last Admin: 11/10/16 18:12 Dose: 1 applic Vancomycin HCl 750 mg/ Sodium (Chloride) 250 mls @ 250 mls/hr IVPB MWF [facility] Last Admin: 11/10/16 09:05 Dose: 250 mls/hr Sodium Chloride (Sodium Chloride 0.9%) 1,000 mls @ 0 mls/hr IV .Q0M [facility] PRN Reason: As Directed Ibuprofen (Motrin Tab) 400 mg PO Q6H PRN PRN Reason: PAIN LEVEL ABOVE 7 Last Admin: 11/10/16 14:04 Dose: 400 mg Labetalol HCl (Trandate) 100 mg PO BID [facility] Last Admin: 11/10/16 18:05 Dose: Not Given Lisinopril (Zestril) 5 mg PO DAILY [facility] Last Admin: 11/10/16 09:00 Dose: Not Given Mirtazapine (Remeron) 7.5 mg PO HS [facility] Last Admin: 11/11/16 01:41 Dose: 7.5 mg Ondansetron HCl (Zofran Inj) 4 mg IVP Q6 PRN PRN Reason: Nausea/Vomiting Triamcinolone Acetonide (Kenalog 0.1% Oint) 1 appl TOP BID [facility] Last Admin: 11/10/16 18:12 Dose: 1 applic Vitamin B Complex/Vit C/Folic Acid (Nephro-Valentino) 1 tab PO DAILY [facility] Last Admin: 11/10/16 08:59 Dose: Not Given - Labs Labs: 11/10/16 07:45 11/10/16 07:45 PT 10.6 SECONDS (9.6-11.2) 11/10/16 07:45 INR 1.02 (0.92-1.08) 11/10/16 07:45 APTT 29.4 SECONDS (23.3-32.5) 11/06/16 11:27 - Constitutional Appears: Well, Non-toxic, No Acute Distress - Head Exam Head Exam: ATRAUMATIC, NORMAL INSPECTION, NORMOCEPHALIC - Eye Exam Eye Exam: EOMI, Normal appearance, PERRL Pupil Exam: NORMAL ACCOMODATION, PERRL - ENT Exam ENT Exam: Mucous Membranes Moist, Normal Exam - Neck Exam Neck Exam: Full ROM, Normal Inspection. absent: Lymphadenopathy - Respiratory Exam Respiratory Exam: Clear to Ausculation Bilateral, NORMAL BREATHING PATTERN - Cardiovascular Exam Cardiovascular Exam: REGULAR RHYTHM, +S1, +S2. absent: Murmur - GI/Abdominal Exam GI & Abdominal Exam: Soft, Normal Bowel Sounds. absent: Tenderness - Extremities Exam Extremities Exam: Full ROM, Normal Capillary Refill, Normal Inspection. absent : Joint Swelling, Pedal Edema - Back Exam Back Exam: NORMAL INSPECTION - Neurological Exam Neurological Exam: Alert, Awake, CN II-XII Intact, Normal Gait, Oriented x3 - Psychiatric Exam Psychiatric exam: Normal Affect, Normal Mood - Skin Skin Exam: Dry, Intact, Normal Color, Warm Assessment and Plan (1) DVT prophylaxis Status: Acute (2) Cellulitis of chest wall Status: Acute (3) Sepsis Status: Acute (4) End stage renal disease Status: Chronic - Assessment and Plan (Free Text) Assessment: (1) DVT prophylaxis Assessment & Plan: scd and ae hose hold anticoag for permacath Status: Acute (2) Cellulitis of chest wall Assessment & Plan: resolved secondary to permacath infection, cont anbx Status: Acute (3) Sepsis Assessment & Plan: r/t permacath infectio and bacteremia. cont anco,c ont consults, site wher epermacath was is scabbed over c/d/i. Status: Acute (4) End stage renal disease Assessment & Plan: for new peramcath today and cont dialysis Status: Chronic had permacath placed yesterday and dialysis wnl. for dc today. outpt dialysis restarted and pt to get vanco x 4 wks via dialysis
[2016-11-11 07:52] LABS: BASO # 0.1 K/uL (0.0-0.2); BASO % 2.2 % (0.0-2.0); EOS # 0.7 K/uL (0.0-0.7); EOS % 11.6 % (0.0-4.0); HEMATOCRIT 36.6 % (34.0-47.0); LYMPH # 1.6 K/uL (1.0-4.3); LYMPH % 26.6 % (20.0-40.0); MEAN CORPUSCULAR HEMOGLOBIN 29.5 pg (27.0-31.0); MEAN CORPUSCULAR HGB CONC 34.4 g/dL (33.0-37.0); MEAN PLATELET VOLUME 10.7 fl (7.2-11.7); MONO # 0.9 K/uL (0.0-0.8); MONO % 15.4 % (0.0-10.0); NEUT # 2.6 K/uL (1.8-7.0); NEUT % 44.2 % (50.0-75.0); NRBC % 0.1 % (0.0-0.0); RED CELL DISTRIBUTION WIDTH 13.8 % (11.5-14.5); WHITE BLOOD COUNT 5.9 K/uL (4.8-10.8)
[2016-11-11 08:01] LABS: MEAN CELL VOLUME 85.7 fl (81.0-99.0)
[2016-11-11 08:10] LABS: ALB/GLOB RATIO 1.2 (1.0-2.1); BILIRUBIN,TOTAL 0.4 mg/dl (0.2-1.3); CALCIUM 9.1 mg/dL (8.4-10.2); POTASSIUM 4.3 MMOL/L (3.6-5.0); TOTAL PROTEIN 6.7 G/DL (6.3-8.2)
[2016-11-11] MEDS: Multivitamin Vitamin B Complex (Nephro-Vite) Tab PO SCH (09:43)
--- NOTE | 2016-11-11 12:39 | CP.PCM.DIS ---
Provider - Provider Date of Admission: 11/04/16 03:28 Attending physician: Enid Bernard MD Time Spent in preparation of Discharge (in minutes): 15 Diagnosis - Discharge Diagnosis (1) DVT prophylaxis Status: Acute (2) Cellulitis of chest wall Status: Acute (3) Sepsis Status: Acute (4) End stage renal disease Status: Chronic Hospital Course - Lab Results Lab Results: Micro Results 11/08/16 18:00 Blood-During Dialysis Blood Culture - Preliminary NO GROWTH AFTER 48 HOURS 11/08/16 17:15 Blood Blood Culture - Preliminary NO GROWTH AFTER 48 HOURS 11/08/16 03:00 Blood Blood Culture - Preliminary NO GROWTH AFTER 48 HOURS 11/06/16 03:00 Clavicle - Right Gram Stain - Final 11/06/16 03:00 Clavicle - Right Wound Culture - Final No growth. 11/04/16 21:30 Blood Blood Culture - Final Staphylococcus Aureus 11/04/16 21:30 Blood Gram Stain - Final 11/04/16 23:30 Urine Urine Culture - Final No Growth (<1,000 CFU/ML) 11/04/16 21:30 Blood S.aureus & Coag-Neg Staph PNA FISH - Final 11/04/16 21:30 Blood Blood Culture - Final Staphylococcus Aureus 11/04/16 21:30 Blood Gram Stain - Final 11/04/16 06:27 Naris MRSA Culture (Admit) - Final MRSA NOT DETECTED Most Recent Lab Values WBC 5.9 K/uL (4.8-10.8) 11/11/16 05:30 RBC 4.26 Mil/uL (3.80-5.20) 11/11/16 05:30 Hgb 12.6 g/dL (12.0-16.0) 11/11/16 05:30 Hct 36.6 % (34.0-47.0) 11/11/16 05:30 MCV 85.7 fl (81.0-99.0) D 11/11/16 05:30 MCH 29.5 pg (27.0-31.0) 11/11/16 05:30 MCHC 34.4 g/dL (33.0-37.0) 11/11/16 05:30 RDW 13.8 % (11.5-14.5) 11/11/16 05:30 Plt Count 105 K/uL (130-400) L 11/11/16 05:30 MPV 10.7 fl (7.2-11.7) 11/11/16 05:30 Neut % (Auto) 44.2 % (50.0-75.0) L 11/11/16 05:30 Lymph % (Auto) 26.6 % (20.0-40.0) 11/11/16 05:30 [place]ckett % (Auto) 15.4 % (0.0-10.0) H 11/11/16 05:30 Eos % (Auto) 11.6 % (0.0-4.0) H 11/11/16 05:30 Baso % (Auto) 2.2 % (0.0-2.0) H 11/11/16 05:30 Neut # 2.6 K/uL (1.8-7.0) 11/11/16 05:30 Lymph # 1.6 K/uL (1.0-4.3) 11/11/16 05:30 [place]ckett # 0.9 K/uL (0.0-0.8) H 11/11/16 05:30 Eos # 0.7 K/uL (0.0-0.7) 11/11/16 05:30 Baso # 0.1 K/uL (0.0-0.2) 11/11/16 05:30 Neutrophils % (Manual) 38 % (42-75) L 11/09/16 06:00 Lymphocytes % (Manual) 39 % (20-50) 11/09/16 06:00 Monocytes % (Manual) 12 % (0-10) H 11/09/16 06:00 Eosinophils % (Manual) 10 % (0-7) H 11/09/16 06:00 Basophils % (Manual) 2 % (0-2) 11/09/16 06:00 Platelet Estimate Decreased (NORMAL) L 11/09/16 06:00 Anisocytosis (manual) Slight 11/09/16 06:00 PT 10.6 SECONDS (9.6-11.2) 11/10/16 07:45 INR 1.02 (0.92-1.08) 11/10/16 07:45 APTT 29.4 SECONDS (23.3-32.5) 11/06/16 11:27 pO2 49 mm/Hg (30-55) 11/04/16 03:32 VBG pH 7.49 (7.32-7.43) H 11/04/16 03:32 VBG pCO2 39 mmHg (40-60) L 11/04/16 03:32 VBG HCO3 29.3 mmol/L 11/04/16 03:32 VBG Total CO2 30.9 mmol/L (22-28) H 11/04/16 03:32 VBG O2 Sat (Calc) 91.7 % (40-65) H 11/04/16 03:32 VBG Base Excess 5.9 mmol/L (0.0-2.0) H 11/04/16 03:32 VBG Potassium 4.2 mmol/L (3.6-5.2) 11/04/16 03:32 Sodium 135.0 mmol/L (132-148) 11/04/16 03:32 Chloride 102.0 mmol/L (98-107) 11/04/16 03:32 Glucose 88 mg/dL (65-105) 11/04/16 03:32 Lactate 2.3 mmol/L (0.7-2.1) H 11/04/16 03:32 FiO2 21.0 % 11/04/16 03:32 Sodium 139 mmol/l (132-148) 11/11/16 05:30 Potassium 4.3 MMOL/L (3.6-5.0) 11/11/16 05:30 Chloride 103 mmol/L (98-107) 11/11/16 05:30 Carbon Dioxide 28 mmol/L (22-30) 11/11/16 05:30 Anion Gap 13 (10-20) 11/11/16 05:30 BUN 21 mg/dl (7-17) H 11/11/16 05:30 Creatinine 2.9 mg/dL (0.7-1.2) H 11/11/16 05:30 Est GFR ( Amer) 19 11/11/16 05:30 Est GFR (Non-Af Amer) 16 11/11/16 05:30 POC Glucose (mg/dL) 87 mg/dL (65-110) 11/04/16 03:23 Random Glucose 89 mg/dL (65-105) 11/11/16 05:30 Lactic Acid 0.6 MMOL/L (0.7-2.1) L 11/05/16 07:10 Calcium 9.1 mg/dL (8.4-10.2) 11/11/16 05:30 Total Bilirubin 0.4 mg/dl (0.2-1.3) 11/11/16 05:30 AST 32 U/L (14-36) 11/11/16 05:30 ALT 26 U/L (9-52) 11/11/16 05:30 Alkaline Phosphatase 70 U/L (38-126) 11/11/16 05:30 Troponin I < 0.0120 ng/mL (0.00-0.120) 11/04/16 03:45 Total Protein 6.7 G/DL (6.3-8.2) 11/11/16 05:30 Albumin 3.7 g/dL (3.5-5.0) 11/11/16 05:30 Globulin 3.0 gm/dL (2.2-3.9) 11/11/16 05:30 Albumin/Globulin Ratio 1.2 (1.0-2.1) 11/11/16 05:30 Lipase 204 U/L (23-300) 11/04/16 03:45 Procalcitonin 5.81 NG/ML (0.19-0.49) H 11/04/16 06:25 Venous Blood Potassium 4.2 mmol/L (3.6-5.2) 11/04/16 03:32 Influenza Typ A,B (EIA) Negative for flu a/b (NEGATIVE) 11/04/16 03:40 Discharge Exam - Head Exam Head Exam: ATRAUMATIC, NORMAL INSPECTION, NORMOCEPHALIC Discharge Plan - Discharge Medications Prescriptions: Vancomycin 1gm in NS 250ml [Vancomycin 1gm] 1 gm IVPB MWF #12 bag - Follow Up Plan Condition: FAIR Disposition: HOME/ ROUTINE Instructions: End Stage Kidney Disease (DC), Bacteremia (DC) Additional Instructions: Follow up with PMD on Sunday11/13/2016. Continue schedule for Hemodialysis. Follow up for blood culture in one week. Vancomycin antibiotic to be given post dialysis. Return to ED if symptoms of Bacteremia do not subside. Follow up with [facility]. final dx-bactermia of dialysis cath, cleared by specialists, outpt anbx w/ dialysis x 4 wks. f/u pmd, rted prn, meds per med rec Referrals: Enid Bernard MD [Staff Provider] -
--- NOTE | 2016-11-13 17:30 | VASCULAR ---
Left chest tunneled dialysis catheter placement Removal of the right groin non tunneled dialysis catheter History: Renal failure. Comparison: None. Anesthesia: IV sedation provided by attending anesthesiologist. Procedure: After obtaining informed consent, having explained the relative risks and benefits of the procedure, the patient was positioned supine on the angiography table. Continuous physiologic monitoring was carried out throughout the procedure. The left upper chest and neck were prepped and draped in the usual sterile technique. Local anesthesia was applied. Under ultrasound guidance, the left internal jugular vein was accessed and a permanent image was stored. Exchange was made for a 4 [place] micro introducer sheath. A stiff wire was successfully advanced into the inferior vena cava. A permanent image was stored. Serial dilators were used to dilate the venotomy tract. After administration of local anesthesia, a 1 centimeter incision was made approximately 6-9 centimeters from the venotomy site. A 27 centimeter 14.5 [place] dual lumen dialysis catheter was then tunneled from the incision to the venotomy site and inserted into the internal jugular vein using a peel-away sheath. The final fluoroscopic image demonstrated adequate positioning of the left-sided tunneled dialysis catheter. The catheter tip was placed at the SVC/right atrial junction. The venotomy site was closed and covered with a sterile dressing. The catheter was sutured in place and locked with heparin. The site was covered with a sterile dressing. The right-sided groin non tunneled dialysis catheter was then removed. The patient was transferred to the recovery room in stable condition. Impression: Ultrasound guided access into the left internal jugular vein. Successful ultrasound and fluoroscopically guided placement of a dual-lumen 27 centimeter 14.5 [place] tunneled hemodialysis catheter via a patent left internal jugular vein. Catheter is ready for use. Removal of right groin non tunneled dialysis catheter.
== END 2016-11-11 13:27 | disposition home or self-care (01) | DRG 314 ==
LOC: H.ER 03:01 → H.ERHOLD 03:28 → H.ICU/CCU 05:44 → H.TEL 14:02 → H.MEDSURG1 11-09 19:35
PROVIDERS: ADMIT Family Medicine; ATTEND Family Medicine
PROC: 5A1D60Z (ICD-10-PCS; 2016-11-08)
PROC: 06PY33Z Removal of Infusion Device from Lower Vein, Percutaneous Approach (ICD-10-PCS; 2016-11-10)
PROC: B549ZZA Ultrasonography of Inferior Vena Cava, Guidance (ICD-10-PCS; 2016-11-10)
PROC: 06H033Z Insertion of Infusion Device into Inferior Vena Cava, Percutaneous Approach (ICD-10-PCS; principal; 2016-11-10 09:00)
DX: T80.218A Other infection due to central venous catheter, initial encounter (principal); A41.01 Sepsis due to Methicillin susceptible Staphylococcus aureus; N18.6 End stage renal disease; I12.0 Hypertensive chronic kidney disease with stage 5 chronic kidney disease or end stage renal disease; E11.22 Type 2 diabetes mellitus with diabetic chronic kidney disease; D69.6 Thrombocytopenia, unspecified; L03.313 Cellulitis of chest wall; L29.9 Pruritus, unspecified; Y84.8 Other medical procedures as the cause of abnormal reaction of the patient, or of later complication, without mention of misadventure at the time of the procedure; E78.00 Pure hypercholesterolemia, unspecified; G30.9 Alzheimer's disease, unspecified; F02.80 Dementia in other diseases classified elsewhere, unspecified severity, without behavioral disturbance, psychotic disturbance, mood disturbance, and anxiety; Z99.2 Dependence on renal dialysis; E78.5 Hyperlipidemia, unspecified; Z79.82 Long term (current) use of aspirin

== ENCOUNTER 2016-12-01 11:28 | Inpatient (IN) | payer MEDICARE ==
[2016-12-01 11:32] VITALS: BMI 20.3
[2016-12-01 12:47] LABS: BASO % 0.8 % (0.0-2.0); EOS # 0.4 K/uL (0.0-0.7); EOS % 9.5 % (0.0-4.0); HEMATOCRIT 33.1 % (34.0-47.0); LYMPH # 1.5 K/uL (1.0-4.3); MEAN CELL VOLUME 88.4 fl (81.0-99.0); MEAN CORPUSCULAR HEMOGLOBIN 28.7 pg (27.0-31.0); MEAN CORPUSCULAR HGB CONC 32.5 g/dL (33.0-37.0); MONO # 0.6 K/uL (0.0-0.8); MONO % 13.3 % (0.0-10.0); NEUT % 43.4 % (50.0-75.0); NRBC % 0.1 % (0.0-0.0); RED CELL DISTRIBUTION WIDTH 14.8 % (11.5-14.5); WHITE BLOOD COUNT 4.7 K/uL (4.8-10.8)
[2016-12-01 13:03] LABS: ALB/GLOB RATIO 1.6 (1.0-2.1); ALKALINE PHOSPHATASE 83 U/L (38-126); ALT/SGPT 27 U/L (9-52); AST/SGOT 24 U/L (14-36); BILIRUBIN,TOTAL 0.4 mg/dl (0.2-1.3); BLOOD UREA NITROGEN 75 mg/dl (7-17); CALCIUM 9.6 mg/dL (8.4-10.2); CARBON DIOXIDE 19 mmol/L (22-30); CHLORIDE 107 mmol/L (98-107); GFR AFRICAN-AMERICAN 8; GLUCOSE,RANDOM 83 mg/dL (65-105); POTASSIUM 6.1 MMOL/L (3.6-5.0); SODIUM 139 mmol/l (132-148)
[2016-12-01] MEDS ORDERED: Insulin Regular 100 units/ml IVP ONE (13:36)
[2016-12-01] MEDS ORDERED: Dextrose 50% SYRINGE Inj (50 ml) IVP ONE (13:36)
[2016-12-01] MEDS ORDERED: Sod Polystyrene Sulf 15 gm/60 ml Oral Susp PO ONE (13:36)
--- NOTE | 2016-12-01 13:47 | ED PDOC ---
HPI: General Adult Time Seen by Provider: 12/01/16 11:57 Chief Complaint (Nursing): Abnormal Labs Chief Complaint (Provider): she hasnt had dialysis History Per: Patient, Family (son) History/Exam Limitations: no limitations Current Symptoms Are (Timing): Still Present Severity: Moderate Recently: Treated By A Physician Additional Complaint(s): 76yo female hx ESRD on HD 3x weekly, also hx dementia, has been refusing to go to HD, per son last HD more than one week ago. Today a little more confused than baseline but no SOB, orthopnea or syncope. Urinates infrequently. PMD [facility] Past Medical History Reviewed: Historical Data, Nursing Documentation, Vital Signs Vital Signs: Last Vital Signs Temp 98.5 F 12/05/16 12:36 Pulse 65 12/05/16 12:36 Resp 18 12/05/16 12:36 BP 169/55 H 12/05/16 12:36 Pulse Ox 97 12/05/16 12:36 - Medical History PMH: Alzheimer's Disease, Anemia, Diverticulitis, HTN, Hypercholesterolemia, Kidney Stones, Migraine, End Stage Renal Disease, Chronic Kidney Disease Denies: HIV - Surgical History Surgical History: Appendectomy, Tonsillectomy - Family History Family History: States: Hypertension - Living Arrangements Living Arrangements: With Family - Social History Current smoker - smoking cessation education provided: No - Immunization History Hx Tetanus Toxoid Vaccination: No Hx Influenza Vaccination: No Hx Pneumococcal Vaccination: No - Home Medications Home Medications: Ambulatory Orders Medication Instructions Recorded Atorvastatin [Lipitor] 20 mg PO DAILY 08/16/16 Calcitriol [Rocaltrol] 0.25 mcg PO Q48H 08/16/16 Calcium Acetate [Phoslo] 2 cap PO TID 08/16/16 Donepezil [Aricept] 10 mg PO DAILY 08/16/16 Labetalol [Trandate] 100 mg PO BID 08/16/16 Lisinopril [Zestril] 5 mg PO DAILY 08/16/16 amLODIPine [Norvasc] 5 mg PO DAILY 08/16/16 hydrALAZINE [Apresoline] 25 mg PO BID 08/16/16 Alprazolam [Xanax] 0.5 mg PO HS 11/04/16 B Complex W-C No.20/Folic Acid 1 cap PO DAILY 11/04/16 [Renal Caps Softgel] Mirtazapine 7.5 mg PO HS 11/04/16 hydrOXYzine HCl [Atarax] 25 mg PO TID 11/04/16 Haloperidol [Haldol] 0.5 mg PO TID 12/13/16 - Allergies Allergies/Adverse Reactions: Allergies Allergy/AdvReac Type Severity Reaction Status Date / Time No Known Allergies Allergy Verified 11/04/16 03:07 Review of Systems Review Of Systems: ROS cannot be obtained secondary to pt's inabilty to answer questions. (dementia) Physical Exam - Reviewed Nursing Documentation Reviewed: Yes Vital Signs Reviewed: Yes - Physical Exam Appears: Positive for: Well, Non-toxic, No Acute Distress Head Exam: Positive for: ATRAUMATIC, NORMAL INSPECTION, NORMOCEPHALIC Skin: Positive for: Normal Color, Warm, DRY Eye Exam: Positive for: EOMI, Normal appearance, PERRL ENT: Positive for: Normal ENT Inspection Neck: Positive for: Normal, Painless ROM Cardiovascular/Chest: Positive for: Regular Rate, Rhythm. 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 Negative for: Motor/Sensory Deficits - Laboratory Results Result Diagrams: 12/04/16 05:20 12/04/16 05:20 - ECG O2 Sat by Pulse Oximetry: 98 Medical Decision Making Medical Decision Making: shiley site dressed w chlorhexidine, sterile dressing. Labs to be drawn. May need urgent HD, r/o hyperkalemia EKG reviewed by automobile service writer ALFONSO at 90bpm no acute ST changes QRS92 --------- labs reviewed, K+ elev 6.1, initiate kayexalate and insulin/gluc. No EKG changes. D/w Dr Esparza, HD today (covering Benedict) D/w Leidy Bernard, admit obs tele for HD stat. Disposition - Clinical Impression Clinical Impression: CKD (chronic kidney disease) stage V requiring chronic dialysis, Hyperkalemia - Patient ED Disposition Is Patient to be Admitted: Yes Counseled Patient/Family Regarding: Studies Performed, Diagnosis - Disposition Disposition Time: 13:32 Condition: GOOD - Pt Status Changed To: Hospital Disposition Of: Observation - POA Present On Arrival: None
--- NOTE | 2016-12-01 16:12 | RAD ---
HISTORY: SOB COMPARISON: 11/04/2016 FINDINGS: LUNGS: Interval removal right IJ dialysis catheter and placement left IJ dialysis catheter with tip in the distal brachiocephalic/ SVC junction. . There may be some minor linear atelectasis and or scarring left lung base. PLEURA: No evidence of pneumothorax or effusion. CARDIOVASCULAR: Normal. OSSEOUS STRUCTURES: Mild multilevel degenerative spondylosis of the thoracic spine VISUALIZED UPPER ABDOMEN: Normal. OTHER FINDINGS: None. IMPRESSION: There may be some minor linear atelectasis or scarring left lung base. Interval removal right IJ central venous line with placement left IJ central venous line tip of which lies in the brachiocephalic/SVC junction. No evidence of pneumothorax.
--- NOTE | 2016-12-01 17:16 | CP.PCM.CON ---
History of Present Illness - History of Present Illness History of Present Illness: Initial Nephrology Consultation: Assessment: End stage renal disease on hemodialysis (MWF) via AVF with missed HD x 1 week: Anemia, Hyperphosphatemia, Secondary hyperparathyroidism, HTN, dementia Plan: Will plan for HD today as ordered. Will plan for dialysis tomorrow then MWF. Continue with Nephrovite 1 tab/day. PRBC as needed for anemia. On STEWART as epogen 4000 unit with HD, last Hb 10.8 Continue with phos binders, check phos level Continue with calcitriol with dialysis. BP control with meds as ordered. Patient on RAAS floresita as Lisinopril Glycemic control, Dialysis consistent diet Further work up/management as per primary team Dose meds/antibiotics (if needed) for ESRD status. Avoid fleets enema/magnesium based laxatives. d/w son bedside. consider psychiatry consult for ? depression evaluation. Thanks for allowing me to participate in care of your patient. Will follow patient with you. Please call if any Qs Dr Sridhar Day Office: [phone] Chief Complaint; feels tired HPI: Pt is a y/o with hx of ESRD on hemodialysis (MWF) via AVF, last dialysis last week, chronic anemia, hyperphosphatemia, secondary hyperparathyroidism, hypertension, dementia was brought by family as she didn't go for HD x 1 week. pt has dementia. She denied chest pain, palpitation, shortness of breath, leg swelling ROS: unable much reliably due to her dementia Physical Examination: General Appearance: Comfortable, in no acute respiratory distress, co-operative . Vitals reviewed and noted as below Head; Atraumatic, normocephalic ENT: no ulcers no thrush. Tongue is midline. Oropharynx: no rash or ulcers. EYES: Pupils are equal, round and reactive to light accommodation. Eye muscles and extraocular movement intact. Sclera is anicteric. Neck; supple no lymphadenopathy, no thyromegaly or bruit Lungs: Normal respiratory rate/effort. Breath sounds bilateral equal and with few basal crackles Heart: Normal rate. s1s2 normal. No rub or gallop. Extremities: no edema. No varicose veins Neurological: Patient is alert, awake and demented. No focal deficit. Strength bilateral appropriate and equal Skin: Warm and dry. Normal turgor. No rash. Palpitation: Normal elasticity for age Abdomen: Abdomen is soft. Bowel sounds +. There is no abdominal tenderness, no guarding/rigidity or organomegaly Psych: lack insight and ? depressed MSK: no joint tenderness or swelling. Digits and nails normal, no deformity : kidney or bladder not palpable Access: AVF Labs/imaging reviewed. Past medical history, past surgical history, family history, social history, allergy reviewed and noted as below Past Patient History - Infectious Disease Hx of Infectious Diseases: None - Tetanus Immunizations Tetanus Immunization: Unknown - Past Medical History & Family History Past Medical History?: Yes - Past Social History Smoking Status: Never Smoked - CARDIAC Hx Cardiac Disorders: Yes Hx Hypercholesterolemia: Yes Hx Hypertension: Yes - PULMONARY Hx Respiratory Disorders: No - NEUROLOGICAL Hx Neurological Disorder: Yes Hx Alzheimer's Disease: Yes Hx Migraine: Yes - HEENT Hx HEENT Problems: Yes Other/Comment: wears eye glasses. - RENAL Hx Chronic Kidney Disease: Yes Hx Dialysis: Yes Type of Dialysis Access: permacath Date of Last Dialysis Treatment: 11/25/16 Hx Kidney Stones: Yes - ENDOCRINE/METABOLIC Hx Endocrine Disorders: No - HEMATOLOGICAL/ONCOLOGICAL Hx Blood Disorders: Yes Hx AIDS: No Hx Anemia: Yes - INTEGUMENTARY Hx Dermatological Problems: No - MUSCULOSKELETAL/RHEUMATOLOGICAL Hx Falls: Yes - GASTROINTESTINAL Hx Gastrointestinal Disorders: Yes Hx Diverticulitis: Yes - GENITOURINARY/GYNECOLOGICAL Hx Genitourinary Disorders: No - PSYCHIATRIC Hx Substance Use: No - SURGICAL HISTORY Hx Surgeries: Yes Hx Appendectomy: Yes Hx Tonsillectomy: Yes Hx Vascular Access Device: Yes (permacath) - ANESTHESIA Hx Anesthesia: Yes Hx Anesthesia Reactions: No Hx Malignant Hyperthermia: No Meds Allergies/Adverse Reactions: Allergies Allergy/AdvReac Type Severity Reaction Status Date / Time No Known Allergies Allergy Verified 11/04/16 03:07 - Medications Medications: Current Medications Alprazolam (Xanax) 0.5 mg PO HS [facility] Amlodipine Besylate (Norvasc) 5 mg PO DAILY [facility] Atorvastatin Calcium (Lipitor) 20 mg PO DAILY [facility] Calcitriol (Rocaltrol) 0.25 mcg PO Q48H [facility] Last Admin: 12/01/16 16:57 Dose: 0.25 mcg Calcium Acetate (Phoslo) 1,334 mg PO TID [facility] Last Admin: 12/01/16 16:59 Dose: 1,334 mg Donepezil HCl (Aricept) 10 mg PO DAILY [facility] Hydralazine HCl (Apresoline) 25 mg PO BID [facility] Last Admin: 12/01/16 16:58 Dose: 25 mg Hydroxyzine HCl (Atarax) 25 mg PO TID [facility] Last Admin: 12/01/16 16:57 Dose: 25 mg Vancomycin HCl 1 gm/ Sodium (Chloride) 250 mls @ 125 mls/hr IVPB MWF [facility] Labetalol HCl (Trandate) 100 mg PO BID [facility] Last Admin: 12/01/16 17:03 Dose: 100 mg Lisinopril (Zestril) 5 mg PO DAILY [facility] Mirtazapine (Remeron) 7.5 mg PO HS [facility] Vitamin B Complex/Vit C/Folic Acid (Nephro-Valentino) 1 tab PO DAILY [facility] Results - Vital Signs Recent Vital Signs: Last Vital Signs Temp 98.6 F 12/01/16 15:04 Pulse 75 12/01/16 17:03 Resp 20 12/01/16 15:04 BP 161/67 H 12/01/16 17:03 Pulse Ox 98 12/01/16 15:04 - Labs Result Diagrams: 12/01/16 12:35 12/01/16 12:35
[2016-12-01] MEDS ORDERED: Epoetin Alfa 4000 UNIT/ML Inj IV ONE (18:00)
--- NOTE | 2016-12-01 21:59 | CARD ---
APPROVED REPORT EKG Measurement Heart [id number] <Conclusion> Normal sinus rhythm Normal ECG
[2016-12-01] MEDS ORDERED: MIRTAZAPINE 7.5 MG PO SCH (22:00)
[2016-12-01] MEDS: Epoetin Alfa 4000 UNIT/ML Inj IV SCH (23:30)
[2016-12-02 02:00] LABS: BASO # 0.1 K/uL (0.0-0.2); BASO % 2.6 % (0.0-2.0); EOS # 0.3 K/uL (0.0-0.7); EOS % 6.2 % (0.0-4.0); HEMATOCRIT 31.1 % (34.0-47.0); LYMPH # 1.3 K/uL (1.0-4.3); LYMPH % 27.7 % (20.0-40.0); MEAN CELL VOLUME 86.5 fl (81.0-99.0); MEAN CORPUSCULAR HEMOGLOBIN 28.3 pg (27.0-31.0); MEAN CORPUSCULAR HGB CONC 32.8 g/dL (33.0-37.0); MEAN PLATELET VOLUME 9.8 fl (7.2-11.7); MONO # 0.4 K/uL (0.0-0.8); MONO % 8.4 % (0.0-10.0); NEUT # 2.6 K/uL (1.8-7.0); NEUT % 55.1 % (50.0-75.0); RED CELL DISTRIBUTION WIDTH 14.9 % (11.5-14.5); WHITE BLOOD COUNT 4.7 K/uL (4.8-10.8)
[2016-12-02 02:13] LABS: ALB/GLOB RATIO 1.5 (1.0-2.1); BILIRUBIN,TOTAL 0.5 mg/dl (0.2-1.3); TOTAL PROTEIN 6.5 G/DL (6.3-8.2)
[2016-12-02] MEDS: Multivitamin Vitamin B Complex (Nephro-Vite) Tab PO SCH (08:32)
--- NOTE | 2016-12-02 13:40 | CP.PCM.PN ---
Subjective - Date & Time of Evaluation Date of Evaluation: 12/02/16 Time of Evaluation: 12:00 - Subjective Subjective: No acute distress noted Objective - Vital Signs/Intake and Output Vital Signs (last 24 hours): Temp Pulse Resp BP Pulse Ox 98.8 F 77 18 176/65 H 98 12/02/16 12:48 12/02/16 12:48 12/02/16 12:48 12/02/16 12:48 12/02/16 12:48 - Medications Medications: Current Medications Alprazolam (Xanax) 0.5 mg PO HS [facility] Last Admin: 12/01/16 23:30 Dose: 0.5 mg Amlodipine Besylate (Norvasc) 5 mg PO DAILY [facility] Last Admin: 12/02/16 08:32 Dose: 5 mg Atorvastatin Calcium (Lipitor) 20 mg PO DAILY [facility] Last Admin: 12/02/16 08:31 Dose: 20 mg Calcitriol (Rocaltrol) 0.25 mcg PO Q48H [facility] Last Admin: 12/01/16 16:57 Dose: 0.25 mcg Calcium Acetate (Phoslo) 1,334 mg PO TID [facility] Last Admin: 12/02/16 12:32 Dose: 1,334 mg Donepezil HCl (Aricept) 10 mg PO DAILY [facility] Last Admin: 12/02/16 08:31 Dose: 10 mg Epoetin Seth (Procrit) 4,000 unit IV [facility] Stop: 12/07/16 18:00 Last Admin: 12/01/16 23:30 Dose: 4,000 unit Hydralazine HCl (Apresoline) 25 mg PO BID [facility] Last Admin: 12/02/16 08:31 Dose: 25 mg Hydroxyzine HCl (Atarax) 25 mg PO TID [facility] Last Admin: 12/02/16 12:32 Dose: 25 mg Vancomycin HCl 1 gm/ Sodium (Chloride) 250 mls @ 125 mls[facility] Last Admin: 12/02/16 08:38 Dose: 125 mls/hr Labetalol HCl (Trandate) 100 mg PO BID [facility] Last Admin: 12/02/16 08:32 Dose: 100 mg Lisinopril (Zestril) 5 mg PO DAILY [facility] Last Admin: 12/02/16 08:32 Dose: 5 mg Mirtazapine (Remeron) 7.5 mg PO HS [facility] Last Admin: 12/01/16 22:25 Dose: 7.5 mg Vitamin B Complex/Vit C/Folic Acid (Nephro-Valentino) 1 tab PO DAILY [facility] Last Admin: 12/02/16 08:32 Dose: 1 tab - Respiratory Exam Additional comments: Lungs clear - Cardiovascular Exam Cardiovascular Exam: REGULAR RHYTHM - Extremities Exam Additional comments: No edema Assessment and Plan - Assessment and Plan (Free Text) Assessment: ESRD on HD HTN Dementia Plan: Pt discontinued dialysis after 40 min last night. Became agitated Spoke with Patient today & she agrees to do dialysis today Labs stable
--- NOTE | 2016-12-02 18:05 | CP.PCM.HP ---
History of Present Illness - History of Present Illness History of Present Illness: 76 y/o female with h/o ESRD on HD admitted for hyperkalemia. pt started HD yesterday but refused only after 30-40 mins. Pt is comfortable, NAD, no complaints, toelrating PO. She denies any cp/sob/palp. Present on Admission - Present on Admission Any Indicators Present on Admission: No History of DVT/PE: No Review of Systems - Review of Systems All systems: reviewed and no additional remarkable complaints except - Constitutional Constitutional: As Per HPI - EENT Eyes: As Per HPI Ears: As Per HPI Nose/Mouth/Throat: As Per HPI - Breasts Breasts: As Per HPI - Cardiovascular Cardiovascular: As Per HPI - Respiratory Respiratory: As Per HPI - Gastrointestinal Gastrointestinal: As Per HPI - Genitourinary Genitourinary: As Per HPI - Reproductive: Female Reproductive:Female: As Per HPI - Menstruation Menstruation: As Per HPI - Musculoskeletal Musculoskeletal: As Per HPI - Integumentary Integumentary: As Per HPI - Neurological Neurological: As Per HPI - Psychiatric Psychiatric: As Per HPI - Endocrine Endocrine: As Per HPI - Hematologic/Lymphatic Hematologic: As Per HPI Past Patient History - Infectious Disease Hx of Infectious Diseases: None - Tetanus Immunizations Tetanus Immunization: Unknown - Past Medical History & Family History Past Medical History?: Yes Past Family History: Reviewed and not pertinent - Past Social History Smoking Status: Never Smoked Alcohol: None - CARDIAC Hx Cardiac Disorders: Yes Hx Hypercholesterolemia: Yes Hx Hypertension: Yes - PULMONARY Hx Respiratory Disorders: No - NEUROLOGICAL Hx Neurological Disorder: Yes Hx Alzheimer's Disease: Yes Hx Migraine: Yes - HEENT Hx HEENT Problems: No Other/Comment: wears eye glasses. - RENAL Hx Chronic Kidney Disease: Yes Hx Dialysis: Yes Type of Dialysis Access: permacath Date of Last Dialysis Treatment: 11/25/16 Hx Kidney Stones: Yes - ENDOCRINE/METABOLIC Hx Endocrine Disorders: No - HEMATOLOGICAL/ONCOLOGICAL Hx Blood Disorders: Yes Hx AIDS: No Hx Anemia: Yes - INTEGUMENTARY Hx Dermatological Problems: No - MUSCULOSKELETAL/RHEUMATOLOGICAL Hx Falls: Yes - GASTROINTESTINAL Hx Gastrointestinal Disorders: Yes Hx Diverticulitis: Yes - GENITOURINARY/GYNECOLOGICAL Hx Genitourinary Disorders: No - PSYCHIATRIC Hx Substance Use: No - SURGICAL HISTORY Hx Surgeries: Yes Hx Appendectomy: Yes Hx Tonsillectomy: Yes Hx Vascular Access Device: Yes (permacath) - ANESTHESIA Hx Anesthesia: Yes Hx Anesthesia Reactions: No Hx Malignant Hyperthermia: No Meds Allergies/Adverse Reactions: Allergies Allergy/AdvReac Type Severity Reaction Status Date / Time No Known Allergies Allergy Verified 11/04/16 03:07 Physical Exam - Head Exam Head Exam: ATRAUMATIC, NORMAL INSPECTION - Eye Exam Eye Exam: EOMI, Normal appearance - ENT Exam ENT Exam: Mucous Membranes Moist - Neck Exam Neck exam: Positive for: Normal Inspection - Respiratory Exam Respiratory Exam: Clear to Auscultation Bilateral, NORMAL BREATHING PATTERN - Cardiovascular Exam Cardiovascular Exam: REGULAR RHYTHM - Rectal Exam Rectal Exam: NORMAL INSPECTION - Extremities Exam Extremities exam: Positive for: normal inspection - Back Exam Back exam: NORMAL INSPECTION - Neurological Exam Neurological exam: Oriented x3 - Psychiatric Exam Psychiatric exam: Normal Affect Results - Vital Signs Recent Vital Signs: Last Vital Signs Temp 98.5 F 12/02/16 15:45 Pulse 70 12/02/16 16:25 Resp 20 12/02/16 15:45 BP 154/67 H 12/02/16 16:25 Pulse Ox 98 12/02/16 15:45 - Labs Result Diagrams: 12/02/16 01:56 12/02/16 01:56 Assessment & Plan - Assessment and Plan (Free Text) Assessment: ESRD on HD HTN HL DEMENTIA Plan: 1. ESRD on HD Nephro consulted HD again today cont to monitor Cr 4.0 2. HTN elev today cont home meds patient stable. 3. Dementia Cont home meds. 4. DVT px scd d/c planning for tomrorow. Decision To Admit - Pt Status Changed To: Hospital Disposition Of: Inpatient - Admit Certification Admit to Inpatient:: After my assessment, the patient will require hospitalization for at least two midnights. This is because of the severity of symptoms shown, intensity of services needed, and/or the medical risk in this patient being treated as an outpatient. - . Bed Request Type: Telemetry Admitting Physician: Jaiden Adams
[2016-12-03] MEDS: Multivitamin Vitamin B Complex (Nephro-Vite) Tab PO SCH (09:24)
--- NOTE | 2016-12-03 12:55 | CP.PCM.PN ---
Subjective - Date & Time of Evaluation Date of Evaluation: 12/03/16 Time of Evaluation: 12:40 - Subjective Subjective: Appears comfortable in bed Pt again refused dialysis this morning Objective - Vital Signs/Intake and Output Vital Signs (last 24 hours): Temp Pulse Resp BP Pulse Ox 98.3 F 73 18 166/69 H 98 12/03/16 12:00 12/03/16 12:00 12/03/16 12:00 12/03/16 12:00 12/03/16 12:00 - Medications Medications: Current Medications Alprazolam (Xanax) 0.5 mg PO [facility] Last Admin: 12/02/16 21:24 Dose: 0.5 mg Amlodipine Besylate (Norvasc) 5 mg PO DAILY [facility] Last Admin: 12/03/16 09:24 Dose: 5 mg Atorvastatin Calcium (Lipitor) 20 mg PO DAILY [facility] Last Admin: 12/03/16 09:24 Dose: 20 mg Calcitriol (Rocaltrol) 0.25 mcg PO Q48H [facility] Last Admin: 12/01/16 16:57 Dose: 0.25 mcg Calcium Acetate (Phoslo) 1,334 mg PO TID [facility] Last Admin: 12/03/16 09:25 Dose: 1,334 mg Donepezil HCl (Aricept) 10 mg PO DAILY [facility] Last Admin: 12/03/16 09:24 Dose: 10 mg Epoetin Seth (Procrit) 4,000 unit IV [facility] Stop: 12/07/16 18:00 Last Admin: 12/01/16 23:30 Dose: 4,000 unit Hydralazine HCl (Apresoline) 25 mg PO BID [facility] Last Admin: 12/03/16 09:23 Dose: 25 mg Hydroxyzine HCl (Atarax) 25 mg PO TID [facility] Last Admin: 12/03/16 09:24 Dose: 25 mg Vancomycin HCl 1 gm/ Sodium (Chloride) 250 mls @ 125 mls/hr IVPB [facility] Last Admin: 12/02/16 08:38 Dose: 125 mls/hr Labetalol HCl (Trandate) 100 mg PO BID [facility] Last Admin: 12/02/16 16:25 Dose: 100 mg Lisinopril (Zestril) 5 mg PO DAILY [facility] Last Admin: 12/03/16 09:26 Dose: 5 mg Mirtazapine (Remeron) 7.5 mg PO HS [facility] Last Admin: 12/02/16 21:24 Dose: 7.5 mg Vitamin B Complex/Vit C/Folic Acid (Nephro-Valentino) 1 tab PO DAILY [facility] Last Admin: 12/03/16 09:24 Dose: 1 tab - Respiratory Exam Additional comments: Lungs clear - Cardiovascular Exam Cardiovascular Exam: REGULAR RHYTHM - Extremities Exam Additional comments: No edema Assessment and Plan - Assessment and Plan (Free Text) Assessment: ESRD HTN Dementia Plan: Pt continues to refuse dialysis.Today she states that she does not want to do dialysis anymore Consequences of stopping dialysis eg hyperkalemia, uremia,fluid overload were explained in laymans terms to Pt in the presence of her family. Pt is determined to stop dialysis. Psych evaluation is requested.
--- NOTE | 2016-12-03 17:38 | CP.PCM.PN ---
Subjective - Date & Time of Evaluation Date of Evaluation: 12/03/16 Time of Evaluation: 17:00 - Subjective Subjective: pt seen and examined at bedside. She is cont to refuse dialysis, removed IV access. She is sitting comfortably today, tolerating po. 1 to 1 to prevent falls or out of room. no new complaints Objective - Vital Signs/Intake and Output Vital Signs (last 24 hours): Temp Pulse Resp BP Pulse Ox 97.4 F L 67 18 164/63 H 98 12/03/16 15:45 12/03/16 15:45 12/03/16 15:45 12/03/16 15:45 12/03/16 15:45 Intake and Output: 12/03/16 12/03/16 06:59 18:59 Intake Total 760 Balance 760 - Medications Medications: Current Medications Alprazolam (Xanax) 0.5 mg PO HS [facility] Last Admin: 12/02/16 21:24 Dose: 0.5 mg Amlodipine Besylate (Norvasc) 5 mg PO DAILY [facility] Last Admin: 12/03/16 09:24 Dose: 5 mg Atorvastatin Calcium (Lipitor) 20 mg PO DAILY [facility] Last Admin: 12/03/16 09:24 Dose: 20 mg Calcitriol (Rocaltrol) 0.25 mcg PO Q48H [facility] Last Admin: 12/03/16 16:52 Dose: 0.25 mcg Calcium Acetate (Phoslo) 1,334 mg PO TID [facility] Last Admin: 12/03/16 16:53 Dose: 1,334 mg Donepezil HCl (Aricept) 10 mg PO DAILY [facility] Last Admin: 12/03/16 09:24 Dose: 10 mg Epoetin Seth (Procrit) 4,000 unit IV [facility] Stop: 12/07/16 18:00 Last Admin: 12/01/16 23:30 Dose: 4,000 unit Hydralazine HCl (Apresoline) 25 mg PO BID [facility] Last Admin: 12/03/16 16:53 Dose: 25 mg Hydroxyzine HCl (Atarax) 25 mg PO TID [facility] Last Admin: 12/03/16 16:54 Dose: 25 mg Vancomycin HCl 1 gm/ Sodium (Chloride) 250 mls [facility] Admin: 12/02/16 08:38 Dose: 125 mls/hr Labetalol HCl (Trandate) 100 mg PO BID [facility] Last Admin: 12/03/16 16:52 Dose: 100 mg Lisinopril (Zestril) 5 mg PO DAILY [facility] Last Admin: 12/03/16 09:26 Dose: 5 mg Mirtazapine (Remeron) 7.5 mg PO HS [facility] Last Admin: 12/02/16 21:24 Dose: 7.5 mg Vitamin B Complex/Vit C/Folic Acid (Nephro-Valentino) 1 tab PO DAILY [facility] Last Admin: 12/03/16 09:24 Dose: 1 tab - Head Exam Head Exam: ATRAUMATIC - Eye Exam Eye Exam: EOMI, Normal appearance Pupil Exam: NORMAL ACCOMODATION, PERRL - ENT Exam ENT Exam: Mucous Membranes Moist - Neck Exam Neck Exam: Full ROM, Normal Inspection - Respiratory Exam Respiratory Exam: Clear to Ausculation Bilateral, NORMAL BREATHING PATTERN - Cardiovascular Exam Cardiovascular Exam: REGULAR RHYTHM - GI/Abdominal Exam GI & Abdominal Exam: Normal Bowel Sounds Assessment and Plan - Assessment and Plan (Free Text) Assessment: 76 y/o female with ESRD, HTN, dementia, presented with hyperkalemia Plan: 1. Hyperkalemia resolved recheck in am 2. ESRD cont HD pt is refusing psych consulted Cr. 4.0 f/u labs 3. HTN elev yesterday, currently under control pt taking home meds cont to monitor consider cardio 4. DVT scd
[2016-12-04 06:34] LABS: BASO # 0.1 K/uL (0.0-0.2); EOS # 0.6 K/uL (0.0-0.7); EOS % 11.3 % (0.0-4.0); HEMATOCRIT 32.4 % (34.0-47.0); LYMPH # 1.6 K/uL (1.0-4.3); LYMPH % 31.6 % (20.0-40.0); MEAN CELL VOLUME 86.4 fl (81.0-99.0); MEAN CORPUSCULAR HEMOGLOBIN 28.6 pg (27.0-31.0); MEAN CORPUSCULAR HGB CONC 33.1 g/dL (33.0-37.0); MEAN PLATELET VOLUME 10.5 fl (7.2-11.7); MONO # 0.7 K/uL (0.0-0.8); MONO % 14.9 % (0.0-10.0); NEUT % 40.2 % (50.0-75.0); NRBC % 0.1 % (0.0-0.0); RED CELL DISTRIBUTION WIDTH 14.4 % (11.5-14.5); WHITE BLOOD COUNT 4.9 K/uL (4.8-10.8)
[2016-12-04 06:47] LABS: ALB/GLOB RATIO 1.5 (1.0-2.1); BILIRUBIN,TOTAL 0.3 mg/dl (0.2-1.3); POTASSIUM 4.4 MMOL/L (3.6-5.0); TOTAL PROTEIN 6.3 G/DL (6.3-8.2)
--- NOTE | 2016-12-04 07:13 | CP.PCM.PN ---
Subjective - Date & Time of Evaluation Date of Evaluation: 12/04/16 Time of Evaluation: 07:12 - Subjective Subjective: pt comfortable in bed. no distress. no f/c, n/v/d. bw noted. cardio note appriciated. pendign psych for competency. talked w/ gabrielle care. 1 :1 at [facility] for pt safety. pt has been refusing idalysis orstopping it after 30 min. pt able to state president, name, year and location. Objective - Vital Signs/Intake and Output Vital Signs (last 24 hours): Temp Pulse Resp BP Pulse Ox 98.5 F 78 20 170/82 H 99 12/04/16 05:29 12/04/16 05:29 12/04/16 05:29 12/04/16 05:29 12/04/16 05:29 - Medications Medications: Current Medications Alprazolam (Xanax) 0.5 mg PO HS [facility] Last Admin: 12/03/16 21:59 Dose: 0.5 mg Amlodipine Besylate (Norvasc) 5 mg PO DAILY [facility] Last Admin: 12/03/16 09:24 Dose: 5 mg Atorvastatin Calcium (Lipitor) 20 mg PO DAILY [facility] Last Admin: 12/03/16 09:24 Dose: 20 mg Calcitriol (Rocaltrol) 0.25 mcg PO Q48H [facility] Last Admin: 12/03/16 16:52 Dose: 0.25 mcg Calcium Acetate (Phoslo) 1,334 mg PO TID [facility] Last Admin: 12/03/16 16:53 Dose: 1,334 mg Donepezil HCl (Aricept) 10 mg PO DAILY [facility] Last Admin: 12/03/16 09:24 Dose: 10 mg Epoetin Seth (Procrit) 4,000 unit IV MWF [facility] Stop: 12/07/16 18:00 Last Admin: 12/01/16 23:30 Dose: 4,000 unit Hydralazine HCl (Apresoline) 25 mg PO BID [facility] Last Admin: 12/03/16 16:53 Dose: 25 mg Hydroxyzine HCl (Atarax) 25 mg PO TID [facility] Last Admin: 12/03/16 16:54 Dose: 25 mg Vancomycin HCl 1 gm/ Sodium (Chloride) 250 mls @ 125 mls/hr IVPB [facility] [place] Last Admin: 12/02/16 08:38 Dose: 125 mls/hr Labetalol HCl (Trandate) 100 mg PO BID [facility] Last Admin: 12/03/16 16:52 Dose: 100 mg Lisinopril (Zestril) 5 mg PO DAILY [facility] Last Admin: 12/03/16 09:26 Dose: 5 mg Mirtazapine (Remeron) 7.5 mg PO HS [facility] Last Admin: 12/03/16 22:00 Dose: 7.5 mg Vitamin B Complex/Vit C/Folic Acid (Nephro-Valentino) 1 tab PO DAILY [facility] Last Admin: 12/03/16 09:24 Dose: 1 tab - Labs Labs: 12/04/16 05:20 12/04/16 05:20 - Constitutional Appears: Well, Non-toxic, No Acute Distress - Head Exam Head Exam: ATRAUMATIC, NORMAL INSPECTION, NORMOCEPHALIC - Eye Exam Eye Exam: EOMI, Normal appearance, PERRL Pupil Exam: NORMAL ACCOMODATION, PERRL - ENT Exam ENT Exam: Mucous Membranes Moist, Normal Exam - Neck Exam Neck Exam: Full ROM, Normal Inspection. absent: Lymphadenopathy - Respiratory Exam Respiratory Exam: Clear to Ausculation Bilateral, NORMAL BREATHING PATTERN - Cardiovascular Exam Cardiovascular Exam: REGULAR RHYTHM, RRR, +S1, +S2. absent: Murmur - GI/Abdominal Exam GI & Abdominal Exam: Soft, Normal Bowel Sounds. absent: Tenderness - Extremities Exam Extremities Exam: Full ROM, Normal Capillary Refill, Normal Inspection. absent : Joint Swelling, Pedal Edema - Back Exam Back Exam: NORMAL INSPECTION - Neurological Exam Neurological Exam: Alert, Awake, CN II-XII Intact, Normal Gait, Oriented x3 - Psychiatric Exam Psychiatric exam: Normal Affect, Normal Mood - Skin Skin Exam: Dry, Intact, Normal Color, Warm Assessment and Plan (1) CKD (chronic kidney disease) stage V requiring chronic dialysis Assessment & Plan: nephro cont dialysis as pt tolerates Status: Acute (2) DVT prophylaxis Assessment & Plan: scd nad aehose anticoag w/ dilaysis Status: Acute (3) HTN (hypertension) Assessment & Plan: cont meds cardio dialysis as pt consents Status: Acute (4) Dementia Assessment & Plan: sych for competency eval d/c care w/ son Status: Chronic
--- NOTE | 2016-12-04 07:54 | CP.PCM.CON ---
History of Present Illness - History of Present Illness History of Present Illness: patient seen/examined. full consult to follow. Hypertensive currently refusing dialysis. refusing telemetry. will adjust anti hypertensive therapy. will avoid nephrotoxic agents. Past Patient History - Infectious Disease Hx of Infectious Diseases: None - Tetanus Immunizations Tetanus Immunization: Unknown - Past Medical History & Family History Past Medical History?: Yes Past Family History: Reviewed and not pertinent - Past Social History Smoking Status: Never Smoked Alcohol: None - CARDIAC Hx Cardiac Disorders: Yes Hx Hypercholesterolemia: Yes Hx Hypertension: Yes - PULMONARY Hx Respiratory Disorders: No - NEUROLOGICAL Hx Neurological Disorder: Yes Hx Alzheimer's Disease: Yes Hx Migraine: Yes - HEENT Hx HEENT Problems: No Other/Comment: wears eye glasses. - RENAL Hx Chronic Kidney Disease: Yes Hx Dialysis: Yes Type of Dialysis Access: permacath Date of Last Dialysis Treatment: 11/25/16 Hx Kidney Stones: Yes - ENDOCRINE/METABOLIC Hx Endocrine Disorders: No - HEMATOLOGICAL/ONCOLOGICAL Hx AIDS: No Hx Human Immunodeficiency Virus (HIV): No - INTEGUMENTARY Hx Dermatological Problems: No - MUSCULOSKELETAL/RHEUMATOLOGICAL Hx Falls: Yes - GASTROINTESTINAL Hx Gastrointestinal Disorders: Yes Hx Diverticulitis: Yes - GENITOURINARY/GYNECOLOGICAL Hx Genitourinary Disorders: No - PSYCHIATRIC Hx Substance Use: No - SURGICAL HISTORY Hx Surgeries: Yes Hx Appendectomy: Yes Hx Tonsillectomy: Yes Hx Vascular Access Device: Yes (permacath) - ANESTHESIA Hx Anesthesia: Yes Hx Anesthesia Reactions: No Hx Malignant Hyperthermia: No Meds Allergies/Adverse Reactions: Allergies Allergy/AdvReac Type Severity Reaction Status Date / Time No Known Allergies Allergy Verified 11/04/16 03:07 - Medications Medications: Current Medications Alprazolam (Xanax) 0.5 mg PO HS [facility] Last Admin: 12/03/16 21:59 Dose: 0.5 mg Amlodipine Besylate (Norvasc) 5 mg PO DAILY [facility] Last Admin: 12/03/16 09:24 Dose: 5 mg Atorvastatin Calcium (Lipitor) 20 mg PO DAILY [facility] Last Admin: 12/03/16 09:24 Dose: 20 mg Calcitriol (Rocaltrol) 0.25 mcg PO Q48H [facility] Last Admin: 12/03/16 16:52 Dose: 0.25 mcg Calcium Acetate (Phoslo) 1,334 mg PO TID [facility] Last Admin: 12/03/16 16:53 Dose: 1,334 mg Donepezil HCl (Aricept) 10 mg PO DAILY [facility] Last Admin: 12/03/16 09:24 Dose: 10 mg Epoetin Seth (Procrit) 4,000 unit IV [facility] Stop: 12/07/16 18:00 Last Admin: 12/01/16 23:30 Dose: 4,000 unit Hydralazine HCl (Apresoline) 25 mg PO BID [facility] Last Admin: 12/03/16 16:53 Dose: 25 mg Hydroxyzine HCl (Atarax) 25 mg PO TID [facility] Last Admin: 12/03/16 16:54 Dose: 25 mg Vancomycin HCl 1 gm/ Sodium (Chloride) 250 mls @ 125 mls/hr [place]PB [facility] Last Admin: 12/02/16 08:38 Dose: 125 mls/hr Labetalol HCl (Trandate) 100 mg PO BID [facility] Last Admin: 12/03/16 16:52 Dose: 100 mg Lisinopril (Zestril) 5 mg PO DAILY [facility] Last Admin: 12/03/16 09:26 Dose: 5 mg Mirtazapine (Remeron) 7.5 mg PO HS [facility] Last Admin: 12/03/16 22:00 Dose: 7.5 mg Vitamin B Complex/Vit C/Folic Acid (Nephro-Valentino) 1 tab PO DAILY [facility] Last Admin: 12/03/16 09:24 Dose: 1 tab Results - Vital Signs Recent Vital Signs: Last Vital Signs Temp 98.5 F 12/04/16 05:29 Pulse 78 12/04/16 05:29 Resp 20 12/04/16 05:29 BP 170/82 H 12/04/16 05:29 Pulse Ox 99 12/04/16 05:29 - Labs Result Diagrams: 12/04/16 05:20 12/04/16 05:20 Labs: Laboratory Results - last 24 hr 12/04/16 12/04/16 05:20 05:20 WBC 4.9 RBC 3.75 L Hgb 10.7 L Hct 32.4 L MCV 86.4 MCH 28.6 MCHC 33.1 RDW 14.4 Plt Count 115 L MPV 10.5 Neut % (Auto) 40.2 L Lymph % (Auto) 31.6 [place] % (Auto) 14.9 H Eos % (Auto) 11.3 H Baso % (Auto) 2.0 Neut # 2.0 Lymph # 1.6 [place] # 0.7 Eos # 0.6 Baso # 0.1 Sodium 137 Potassium 4.4 Chloride 101 Carbon Dioxide 24 Anion Gap 16 BUN 55 H Creatinine 5.1 H Est GFR ( Amer) 10 Est GFR (Non-Af Amer) 8 Random Glucose 86 Calcium 9.0 Total Bilirubin 0.3 AST 20 ALT 26 Alkaline Phosphatase 51 Total Protein 6.3 Albumin 3.8 Globulin 2.5 Albumin/Globulin Ratio 1.5
--- NOTE | 2016-12-04 07:54 | CP.PCM.CON ---
History of Present Illness - History of Present Illness History of Present Illness: I was asked to see patient by J Carlos Huertas APN and Dr. Bernard. Patient is a 76 year old male female with a history of HTN, ESRD on HD, hypercholeterolemia who presents with hyperkalemia. The patient was on HD, but refused after 20 minutes. The patient does not wish to undergo further dialysis. The patient denies chest pain or dyspnea. Blood pressure has been elevated. Review of Systems - Constitutional Constitutional: absent: As Per HPI, Anorexia, Chills, Daytime Sleepiness, Excessive Sweating, Fatigue, Fever, Frequent Falls, Headache, Increased Appetite , Lethargy, Malaise, Night Sweats, Snoring, Sleep Apnea, Weight Gain, Weight Loss, Weakness, Other - EENT Eyes: absent: As Per HPI, Blind Spots, Blurred Vision, Change in Vision, Decreased Night Vision, Diplopia, Discharge, Dry Eye, Exophthalmos, Floaters, Irritation, Itchy Eyes, Loss of Peripheral Vision, Pain, Photophobia, Requires Corrective Lenses, Sees Flashes, Spots in Vision, Tunnel Vision, Other Visual Disturbances, Loss of Vision, Other Ears: absent: As Per HPI, Decreased Hearing, Ear Discharge, Ear Pain, Tinnitus, Abnormal Hearing, Disequilibrium, Dizziness, Other Nose/Mouth/Throat: absent: As Per HPI, Epistaxis, Nasal Congestion, Nasal Discharge, Nasal Obstruction, Nasal Trauma, Nose Pain, Post Nasal Drip, Sinus Pain, Sinus Pressure, Bleeding Gums, Change in Voice, Dental Pain, Dry Mouth, Dysphagia, Halitosis, Hoarsness, Lip Swelling, Mouth Lesions, Mouth Pain, Odynophagia, Sore Throat, Throat Swelling, Tongue Swelling, Facial Pain, Neck Pain, Neck Mass, Other - Breasts Breasts: absent: As Per HPI, Change in Shape, Mass, Pain, Nipple Discharge, Nipple Inversion, Skin Changes, Swelling, Other - Cardiovascular Cardiovascular: absent: As Per HPI, Acrocyanosis, Chest Pain, Chest Pain at Rest , Chest Pain with Activity, Claudication, Diaphoresis, Dyspnea, Dyspnea on Exertion, Edema, Irregular Heart Rhythm, Pain Radiating to Arm/Neck/Jaw, Leg Edema, Leg Ulcers, Lightheadedness, Orthopnea, Palpitations, Paroxysmal Nocturnal Dyspnea, Pedal Edema, Radiating Pain, Rapid Heart Rate, Slow Heart Rate, Syncope, Other - Respiratory Respiratory: absent: As Per HPI, Cough, Dyspnea, Hemoptysis, Dyspnea on Exertion , Wheezing, Snoring, Stridor, Pain on Inspiration, Chest Congestion, Excessive Mucous Production, Change in Mucous Color, Pain with Coughing, Other - Gastrointestinal Gastrointestinal: absent: As Per HPI, Abdominal Pain, Belching, Bloating, Change in Bowel Habits, Change in Stool Character, Coffee Ground Emesis, Constipation, Cramping, Diarrhea, Dyspepsia, Dysphagia, Early Satiety, Excessive Flatus, Fecal Incontinence, Heartburn, Hematemesis, Hematochezia, Loose Stools, Melena, Nausea, Odynophagia, Temesmus, Vomiting, Other - Genitourinary Genitourinary: absent: As Per HPI, Change in Urinary Stream, Difficulty Urinating, Dysuria, Flank Pain, Hematuria, Pyuria, Nocturia, Urinary Incontinence, Urinary Frequency, Urinary Hesitance, Urinary Urgency, Voiding Freq/Small Amts, Freq UTI, Hx Renal/Bladder Calculi, Hx /Renal Surgery, Bladder Distension, Other - Musculoskeletal Musculoskeletal: absent: As Per HPI, Abnormal Gait, Arthralgias, Atrophy, Back Pain, Deformity, Joint Swelling, Limited Range of Motion, Loss of Height, Muscle Cramps, Muscle Weakness, Myalgias, Neck Pain, Numbness, Radiating Pain into Limb, Stiffness, Tingling, Other - Integumentary Integumentary: absent: As Per HPI, Acne, Alopecia, Bleeding Lesions, Change in Hair, Change in Nails, Change in Pigmentation, Changing Lesions, Dry Skin, Erythema, Furuncle, Hirsutism, Lesions, New Lesions, Non-Healing Lesions, Photosensitivity, Pruritus, Rash, Skin Pain, Skin Ulcer, Sores, Striae, Swelling , Unusual Bruising, Wounds, Jaundice, Other - Neurological Neurological: absent: As Per HPI, Abnormal Gait, Abnormal Hearing, Abnormal Movements, Abnormal Speech, Behavioral Changes, Burning Sensations, Confusion, Convulsions, Disequilibrium, Dizziness, Numbness, Focal Weakness, Frequent Falls , Headaches, Lack of Coordination, Loss of Vision, Memory Loss, Paresthesias, Radicular Pain, Restless Legs, Sensory Deficit, Syncope, Tingling, Tremor, Vertigo, Weakness, Other Visual Disturbances, Other - Psychiatric Psychiatric: absent: As Per HPI, Abnormal Sleep Pattern, Anhedonia, Anxiety, Auditory Hallucinations, Behavioral Changes, Change in Appetite, Change in Libido, Confusion, Depression, Difficulty Concentrating, Hallucinations, Homicidal Ideation, Hopelessness, Irritability, Memory Loss, Mood Swings, Panic Attacks, Paranoia, Suicidal Ideation, Visual Hallucinations, Tactile Hallucinations, Other - Endocrine Endocrine: absent: As Per HPI, Change in Body Appearance, Change in Libido, Cold Intolorance, Deepening of Voice, Excessive Sweating, Fatigue, Flushing, Heat Intolorance, Increase in Ring/Shoe/Hat Size, Palpitations, Polydipsia, Polyphagia, Polyuria, Other - Hematologic/Lymphatic Hematologic: absent: As Per HPI, Easy Bleeding, Easy Bruising, Lymphadenopathy, Other Past Patient History - Infectious Disease Hx of Infectious Diseases: None - Tetanus Immunizations Tetanus Immunization: Unknown - Past Medical History & Family History Past Medical History?: Yes Past Family History: Reviewed and not pertinent - Past Social History Smoking Status: Never Smoked Alcohol: None - CARDIAC Hx Cardiac Disorders: Yes Hx Hypercholesterolemia: Yes Hx Hypertension: Yes - PULMONARY Hx Respiratory Disorders: No - NEUROLOGICAL Hx Neurological Disorder: Yes Hx Alzheimer's Disease: Yes Hx Migraine: Yes - HEENT Hx HEENT Problems: No Other/Comment: wears eye glasses. - RENAL Hx Chronic Kidney Disease: Yes Hx Dialysis: Yes Type of Dialysis Access: permacath Date of Last Dialysis Treatment: 11/25/16 Hx Kidney Stones: Yes - ENDOCRINE/METABOLIC Hx Endocrine Disorders: No - HEMATOLOGICAL/ONCOLOGICAL Hx AIDS: No Hx Human Immunodeficiency Virus (HIV): No - INTEGUMENTARY Hx Dermatological Problems: No - MUSCULOSKELETAL/RHEUMATOLOGICAL Hx Falls: Yes - GASTROINTESTINAL Hx Gastrointestinal Disorders: Yes Hx Diverticulitis: Yes - GENITOURINARY/GYNECOLOGICAL Hx Genitourinary Disorders: No - PSYCHIATRIC Hx Substance Use: No - SURGICAL HISTORY Hx Surgeries: Yes Hx Appendectomy: Yes Hx Tonsillectomy: Yes Hx Vascular Access Device: Yes (permacath) - ANESTHESIA Hx Anesthesia: Yes Hx Anesthesia Reactions: No Hx Malignant Hyperthermia: No Meds Allergies/Adverse Reactions: Allergies Allergy/AdvReac Type Severity Reaction Status Date / Time No Known Allergies Allergy Verified 11/04/16 03:07 - Medications Medications: Current Medications Alprazolam (Xanax) 0.5 mg PO HS [facility] Last Admin: 12/03/16 21:59 Dose: 0.5 mg Amlodipine Besylate (Norvasc) 5 mg PO DAILY [facility] Last Admin: 12/03/16 09:24 Dose: 5 mg Atorvastatin Calcium (Lipitor) 20 mg PO DAILY [facility] Last Admin: 12/03/16 09:24 Dose: 20 mg Calcitriol (Rocaltrol) 0.25 mcg PO Q48H [facility] Last Admin: 12/03/16 16:52 Dose: 0.25 mcg Calcium Acetate (Phoslo) 1,334 mg PO TID [facility] Last Admin: 12/03/16 16:53 Dose: 1,334 mg Donepezil HCl (Aricept) 10 mg PO DAILY [facility] Last Admin: 12/03/16 09:24 Dose: 10 mg Epoetin Seth (Procrit) 4,000 unit IV [facility] Stop: 12/07/16 18:00 Last Admin: 12/01/16 23:30 Dose: 4,000 unit Hydralazine HCl (Apresoline) 25 mg PO BID [facility] Last Admin: 12/03/16 16:53 Dose: 25 mg Hydroxyzine HCl (Atarax) 25 mg PO TID [facility] Last Admin: 12/03/16 16:54 Dose: 25 mg Vancomycin HCl 1 gm/ Sodium (Chloride) 250 mls @ 125 mls/hr [facility] Last Admin: 12/02/16 08:38 Dose: 125 mls/hr Labetalol HCl (Trandate) 100 mg PO BID [facility] Last Admin: 12/03/16 16:52 Dose: 100 mg Lisinopril (Zestril) 5 mg PO DAILY [facility] Last Admin: 12/03/16 09:26 Dose: 5 mg Mirtazapine (Remeron) 7.5 mg PO HS [facility] Last Admin: 12/03/16 22:00 Dose: 7.5 mg Vitamin B Complex/Vit C/Folic Acid (Nephro-Valentino) 1 tab PO DAILY [facility] Last Admin: 12/03/16 09:24 Dose: 1 tab Physical Exam - Constitutional Appears: Non-toxic - Head Exam Head Exam: NORMAL INSPECTION - Eye Exam Eye Exam: Normal appearance - ENT Exam ENT Exam: Mucous Membranes Moist - Neck Exam Neck exam: Positive for: Full Rom - Respiratory Exam Respiratory Exam: NORMAL BREATHING PATTERN - Cardiovascular Exam Cardiovascular Exam: REGULAR RHYTHM, Systolic Murmur - GI/Abdominal Exam GI & Abdominal Exam: Normal Bowel Sounds - Rectal Exam Rectal Exam: Deferred - Extremities Exam Extremities exam: Positive for: pedal edema - Back Exam Back exam: NORMAL INSPECTION - Neurological Exam Neurological exam: Alert, Oriented x3 - Psychiatric Exam Psychiatric exam: Normal Affect - Skin Skin Exam: Normal Color Results - Vital Signs Recent Vital Signs: Last Vital Signs Temp 98.5 F 12/04/16 05:29 Pulse 78 12/04/16 05:29 Resp 20 12/04/16 05:29 BP 170/82 H 12/04/16 05:29 Pulse Ox 99 12/04/16 05:29 - Labs Result Diagrams: 12/04/16 05:20 12/04/16 05:20 Labs: Laboratory Results - last 24 hr 12/04/16 12/04/16 05:20 05:20 WBC 4.9 RBC 3.75 L Hgb 10.7 L Hct 32.4 L MCV 86.4 MCH 28.6 MCHC 33.1 RDW 14.4 Plt Count 115 L MPV 10.5 Neut % (Auto) 40.2 L Lymph % (Auto) 31.6 [place] % (Auto) 14.9 H Eos % (Auto) 11.3 H Baso % (Auto) 2.0 Neut # 2.0 Lymph # 1.6 [place] # 0.7 Eos # 0.6 Baso # 0.1 Sodium 137 Potassium 4.4 Chloride 101 Carbon Dioxide 24 Anion Gap 16 BUN 55 H Creatinine 5.1 H Est GFR ( Amer) 10 Est GFR (Non-Af Amer) 8 Random Glucose 86 Calcium 9.0 Total Bilirubin 0.3 AST 20 ALT 26 Alkaline Phosphatase 51 Total Protein 6.3 Albumin 3.8 Globulin 2.5 Albumin/Globulin Ratio 1.5 - EKG Data EKG Interpreted by: Myself EKG shows normal: Sinus rhythm Assessment & Plan (1) Systolic murmur Assessment and Plan: would benefit from echocardiogram to assess valvular function Status: Acute (2) HTN (hypertension) Assessment and Plan: will adjust antihypertensive therapy Status: Acute (3) End stage renal disease Assessment and Plan: patient is refusing dialysis. primary team is working with patient and family. Status: Chronic
[2016-12-04] MEDS ORDERED: Patient's Own Med (Vancomycin 1gm In Ns 250ml [Vancomycin 1gm] 1 GM) IVPB SCH (09:00)
[2016-12-04] MEDS: Multivitamin Vitamin B Complex (Nephro-Vite) Tab PO SCH (09:23)
--- NOTE | 2016-12-04 12:29 | CP.PCM.PN ---
Subjective - Date & Time of Evaluation Date of Evaluation: 12/04/16 Time of Evaluation: 12:15 - Subjective Subjective: Appears comfortable supine Objective - Vital Signs/Intake and Output Vital Signs (last 24 hours): Temp Pulse Resp BP Pulse Ox 98.7 F 66 18 142/64 97 12/04/16 08:38 12/04/16 08:38 12/04/16 08:38 12/04/16 08:38 12/04/16 08:38 - Medications Medications: Current Medications Alprazolam (Xanax) 0.5 mg PO [facility] Last Admin: 12/03/16 21:59 Dose: 0.5 mg Amlodipine Besylate (Norvasc) 5 mg PO DAILY [facility] Last Admin: 12/04/16 09:23 Dose: 5 mg Atorvastatin Calcium (Lipitor) 20 mg PO DAILY [facility] Last Admin: 12/04/16 09:23 Dose: 20 mg Calcitriol (Rocaltrol) 0.25 mcg PO Q48H [facility] Last Admin: 12/03/16 16:52 Dose: 0.25 mcg Calcium Acetate (Phoslo) 1,334 mg PO TID [facility] Last Admin: 12/04/16 09:24 Dose: 1,334 mg Donepezil HCl (Aricept) 10 mg PO DAILY [facility] Last Admin: 12/04/16 09:22 Dose: 10 mg Epoetin Seth (Procrit) 4,000 unit IV [facility] Stop: 12/07/16 18:00 Last Admin: 12/01/16 23:30 Dose: 4,000 unit Hydralazine HCl (Apresoline) 25 mg PO BID [facility] Last Admin: 12/04/16 09:22 Dose: 25 mg Hydroxyzine HCl (Atarax) 25 mg PO TID [facility] Last Admin: 12/03/16 16:54 Dose: 25 mg Vancomycin HCl 1 gm/ Sodium (Chloride) 250 mls @ 125 mls[facility] Last Admin: 12/02/16 08:38 Dose: 125 mls/hr Labetalol HCl (Trandate) 100 mg PO BID [facility] Last Admin: 12/04/16 09:24 Dose: 100 mg Lisinopril (Zestril) 5 mg PO DAILY [facility] Last Admin: 12/04/16 09:24 Dose: 5 mg Mirtazapine (Remeron) 7.5 mg PO HS [facility] Last Admin: 12/03/16 22:00 Dose: 7.5 mg Vitamin B Complex/Vit C/Folic Acid (Nephro-Valentino) 1 tab PO DAILY [facility] Last Admin: 12/04/16 09:23 Dose: 1 tab - Labs Labs: 12/04/16 05:20 12/04/16 05:20 - Respiratory Exam Additional comments: Lungs clear - Cardiovascular Exam Cardiovascular Exam: REGULAR RHYTHM - Extremities Exam Additional comments: No edema Assessment and Plan - Assessment and Plan (Free Text) Assessment: ESRD HTN Plan: Pt is determined about stopping dialysis Was seen by Psych & considered competent Consequences of stopping dialysis again D/W Pt & family Adv to continue fluid restriction & dialysis diet
--- NOTE | 2016-12-04 12:56 | CP.PCM.CON ---
History of Present Illness - History of Present Illness History of Present Illness: psychiatry consult ordered by: dr. parmar reason: capacity cc: i am not crazy!! hpi: 76 yo female with esrd who has been on dialysis for last 3 months. pt seen with daughter and 1:1 present. pt states she is not depressed, angry or anxious. she states she does not want dialysis. she states "they tell me there is something wrong with my kidneys" she indicates she is aware that team feels she will get very ill and may if she does not get dialysis and she states " i don't care if i , well all have to ..i've lived a good life and it's in God's hands what happens to me." pt does not deny having illness, does not exhibit any delusions about her condition. she is discussing with her family and has been resistant to getting dialysis from the beginning. she denies having any active suicidal thoughts. there are reports from chart/daughter that pt is confused in the evenings. past psych: denies social: from [place]. lives by herself. has refused homemaker services, family looks in on her. she has 5 sons and 1 daughter. denies history of substance abuse past medical: per dr. parmar mse: alert, oriented to self, place, circumstances, to year and month, not day. mood is anxious/irritated. affect mood congruent. thoughts are organized. speech is with loud volume, angry tone. normal production. pt is denying any suicidal or homicidal thoughts. denies any a/v hallucinations. no delusional thoughts endorsed or elicited. memory is grossly intact. fair insight. fair judgment. assessment: at this time pt appears to have the capacity to make her medical decisions as she is aware of her need for treatment and the consequences of refusing the treatment. she does not have any delusional thoughts about what may happen if she refuses treatment. pt may have a mild delirium as she appears to be sundowning recommendation: start haldol 0.5mg po for agitation prn. no need for acute psychiatric treatment discussed with daughter and rn- pediatric social worker can help point family to services/information about power of insurance defense attorney, health care proxy, etc. Past Patient History - Infectious Disease Hx of Infectious Diseases: None - Tetanus Immunizations Tetanus Immunization: Unknown - Past Medical History & Family History Past Medical History?: Yes Past Family History: Reviewed and not pertinent - Past Social History Smoking Status: Never Smoked Alcohol: None - CARDIAC Hx Cardiac Disorders: Yes Hx Hypercholesterolemia: Yes Hx Hypertension: Yes - PULMONARY Hx Respiratory Disorders: No - NEUROLOGICAL Hx Neurological Disorder: Yes Hx Alzheimer's Disease: Yes Hx Migraine: Yes - HEENT Hx HEENT Problems: No Other/Comment: wears eye glasses. - RENAL Hx Chronic Kidney Disease: Yes Hx Dialysis: Yes Type of Dialysis Access: permacath Date of Last Dialysis Treatment: 11/25/16 Hx Kidney Stones: Yes - ENDOCRINE/METABOLIC Hx Endocrine Disorders: No - HEMATOLOGICAL/ONCOLOGICAL Hx AIDS: No Hx Human Immunodeficiency Virus (HIV): No - INTEGUMENTARY Hx Dermatological Problems: No - MUSCULOSKELETAL/RHEUMATOLOGICAL Hx Falls: Yes - GASTROINTESTINAL Hx Gastrointestinal Disorders: Yes Hx Diverticulitis: Yes - GENITOURINARY/GYNECOLOGICAL Hx Genitourinary Disorders: No - PSYCHIATRIC Hx Substance Use: No - SURGICAL HISTORY Hx Surgeries: Yes Hx Appendectomy: Yes Hx Tonsillectomy: Yes Hx Vascular Access Device: Yes (permacath) - ANESTHESIA Hx Anesthesia: Yes Hx Anesthesia Reactions: No Hx Malignant Hyperthermia: No Meds Allergies/Adverse Reactions: Allergies Allergy/AdvReac Type Severity Reaction Status Date / Time No Known Allergies Allergy Verified 11/04/16 03:07 - Medications Medications: Current Medications Alprazolam (Xanax) 0.5 mg PO HS [facility] Last Admin: 12/03/16 21:59 Dose: 0.5 mg Amlodipine Besylate (Norvasc) 5 mg PO DAILY [facility] Last Admin: 12/04/16 09:23 Dose: 5 mg Atorvastatin Calcium (Lipitor) 20 mg PO DAILY [facility] Last Admin: 12/04/16 09:23 Dose: 20 mg Calcitriol (Rocaltrol) 0.25 mcg PO Q48H [facility] Last Admin: 12/03/16 16:52 Dose: 0.25 mcg Calcium Acetate (Phoslo) 1,334 mg PO TID [facility] Last Admin: 12/04/16 09:24 Dose: 1,334 mg Donepezil HCl (Aricept) 10 mg PO DAILY [facility] Last Admin: 12/04/16 09:22 Dose: 10 mg Epoetin Seth (Procrit) 4,000 unit IV MWF [facility] Stop: 12/07/16 18:00 Last Admin: 12/01/16 23:30 Dose: 4,000 unit Haloperidol (Haldol) 0.5 mg PO Q4 PRN PRN Reason: Agitation Hydralazine HCl (Apresoline) 25 mg PO BID [facility] Last Admin: 12/04/16 09:22 Dose: 25 mg Hydroxyzine HCl (Atarax) 25 mg PO TID [facility] Last Admin: 12/03/16 16:54 Dose: 25 mg Vancomycin HCl 1 gm/ Sodium (Chloride) 250 mls @ 125 mls/hr IVPB MWF [facility] Last Admin: 12/02/16 08:38 Dose: 125 mls/hr Labetalol HCl (Trandate) 100 mg PO BID [facility] Last Admin: 12/04/16 09:24 Dose: 100 mg Lisinopril (Zestril) 5 mg PO DAILY [facility] Last Admin: 12/04/16 09:24 Dose: 5 mg Mirtazapine (Remeron) 7.5 mg PO HS [facility] Last Admin: 12/03/16 22:00 Dose: 7.5 mg Vitamin B Complex/Vit C/Folic Acid (Nephro-Valentino) 1 tab PO DAILY [facility] Last Admin: 12/04/16 09:23 Dose: 1 tab Results - Vital Signs Recent Vital Signs: Last Vital Signs Temp 98.2 F 12/04/16 12:25 Pulse 66 12/04/16 08:38 Resp 69 H 12/04/16 12:25 BP 165/58 H 12/04/16 12:25 Pulse Ox 18 L 12/04/16 12:25 - Labs Result Diagrams: 12/04/16 05:20 12/04/16 05:20 Labs: Laboratory Results - last 24 hr 12/04/16 12/04/16 05:20 05:20 WBC 4.9 RBC 3.75 L Hgb 10.7 L Hct 32.4 L MCV 86.4 MCH 28.6 MCHC 33.1 RDW 14.4 Plt Count 115 L MPV 10.5 Neut % (Auto) 40.2 L Lymph % (Auto) 31.6 [place] % (Auto) 14.9 H Eos % (Auto) 11.3 H Baso % (Auto) 2.0 Neut # 2.0 Lymph # 1.6 [place] # 0.7 Eos # 0.6 Baso # 0.1 Sodium 137 Potassium 4.4 Chloride 101 Carbon Dioxide 24 Anion Gap 16 BUN 55 H Creatinine 5.1 H Est GFR ( Amer) 10 Est GFR (Non-Af Amer) 8 Random Glucose 86 Calcium 9.0 Total Bilirubin 0.3 AST 20 ALT 26 Alkaline Phosphatase 51 Total Protein 6.3 Albumin 3.8 Globulin 2.5 Albumin/Globulin Ratio 1.5
[2016-12-04] MEDS: Epoetin Alfa 4000 UNIT/ML Inj IV SCH (18:05)
[2016-12-05 08:03] VITALS: RESP 18
[2016-12-05] MEDS ORDERED: Alum-Mag Hydrox-Simethicone Susp (30 mL) PO PRN (08:09)
--- NOTE | 2016-12-05 08:10 | CP.PCM.PN ---
Subjective - Date & Time of Evaluation Date of Evaluation: 12/05/16 Time of Evaluation: 08:09 - Subjective Subjective: pt comfortable and w/o distress. c/o waking up w/ luq pain. no f/c, n/v/d. pt states is hungry still asking to be dc home today Objective - Vital Signs/Intake and Output Vital Signs (last 24 hours): Temp Pulse Resp BP Pulse Ox 98.6 F 82 18 176/65 H 98 12/05/16 08:03 12/05/16 08:03 12/05/16 08:03 12/05/16 08:03 12/05/16 08:03 - Medications Medications: Current Medications Alprazolam (Xanax) 0.5 mg PO HS [facility] Last Admin: 12/04/16 22:34 Dose: 0.5 mg Amlodipine Besylate (Norvasc) 5 mg PO DAILY [facility] Last Admin: 12/04/16 09:23 Dose: 5 mg Atorvastatin Calcium (Lipitor) 20 mg PO DAILY [facility] Last Admin: 12/04/16 09:23 Dose: 20 mg Calcitriol (Rocaltrol) 0.25 mcg PO Q48H [facility] Last Admin: 12/03/16 16:52 Dose: 0.25 mcg Calcium Acetate (Phoslo) 1,334 mg PO TID [facility] Last Admin: 12/04/16 16:21 Dose: 1,334 mg Donepezil HCl (Aricept) 10 mg PO DAILY [facility] Last Admin: 12/04/16 09:22 Dose: 10 mg Epoetin Seth (Procrit) 4,000 unit IV [facility] Stop: 12/07/16 18:00 Last Admin: 12/04/16 18:05 Dose: Not Given Haloperidol (Haldol) 0.5 mg PO Q4 PRN PRN Reason: Agitation Hydralazine HCl (Apresoline) 25 mg PO BID [facility] Last Admin: 12/04/16 16:18 Dose: 25 mg Hydroxyzine HCl (Atarax) 25 mg PO TID [facility] Last Admin: 12/04/16 16:20 Dose: Not Given Vancomycin HCl 1 gm/ Sodium (Chloride) 250 mls @ 125 mls/hr IVPB [facility] Last Admin: 12/04/16 18:06 Dose: Not Given Labetalol HCl (Trandate) 100 mg PO BID [facility] Last Admin: 05/22/17 16:21 Dose: 100 mg Lisinopril (Zestril) 5 mg PO DAILY [facility] Last Admin: 12/04/16 09:24 Dose: 5 mg Mirtazapine (Remeron) 7.5 mg PO HS [facility] Last Admin: 12/04/16 22:34 Dose: 7.5 mg Vitamin B Complex/Vit C/Folic Acid (Nephro-Valentino) 1 tab PO DAILY [facility] Last Admin: 12/04/16 09:23 Dose: 1 tab - Labs Labs: 12/04/16 05:20 12/04/16 05:20 - Constitutional Appears: Well, Non-toxic, No Acute Distress - Head Exam Head Exam: ATRAUMATIC, NORMAL INSPECTION, NORMOCEPHALIC - Eye Exam Eye Exam: EOMI, Normal appearance, PERRL Pupil Exam: NORMAL ACCOMODATION, PERRL - ENT Exam ENT Exam: Mucous Membranes Moist, Normal Exam - Neck Exam Neck Exam: Full ROM, Normal Inspection. absent: Lymphadenopathy - Respiratory Exam Respiratory Exam: Clear to Ausculation Bilateral, NORMAL BREATHING PATTERN - Cardiovascular Exam Cardiovascular Exam: REGULAR RHYTHM, RRR, +S1, +S2. absent: Murmur - GI/Abdominal Exam GI & Abdominal Exam: Soft, Normal Bowel Sounds. absent: Tenderness - Extremities Exam Extremities Exam: Full ROM, Normal Capillary Refill, Normal Inspection. absent : Joint Swelling, Pedal Edema - Back Exam Back Exam: NORMAL INSPECTION - Neurological Exam Neurological Exam: Alert, Awake, CN II-XII Intact, Normal Gait, Oriented x3 - Psychiatric Exam Psychiatric exam: Normal Affect, Normal Mood - Skin Skin Exam: Dry, Intact, Normal Color, Warm Assessment and Plan (1) CKD (chronic kidney disease) stage V requiring chronic dialysis Status: Acute (2) DVT prophylaxis Status: Acute (3) HTN (hypertension) Status: Acute (4) Dementia Status: Chronic - Assessment and Plan (Free Text) Assessment: (1) CKD (chronic kidney disease) stage V requiring chronic dialysis Assessment & Plan: nephro cont dialysis as pt tolerates Status: Acute (2) DVT prophylaxis Assessment & Plan: scd nad aehose anticoag w/ dilaysis Status: Acute (3) HTN (hypertension) Assessment & Plan: cont meds cardio dialysis as pt consents Status: Acute (4) Dementia Assessment & Plan: sych for competency eval d/c care w/ son Status: Chronic 5-luq pain-?? dyspepsia-maalox, will reeval later
[2016-12-05] MEDS: Multivitamin Vitamin B Complex (Nephro-Vite) Tab PO SCH (09:28)
--- NOTE | 2016-12-05 10:49 | CP.PCM.PN ---
Subjective - Date & Time of Evaluation Date of Evaluation: 12/05/16 Time of Evaluation: 10:48 - Subjective Subjective: Patient and bed awake and conscious Patient feeling okay as she stated No nausea no vomiting Vital sign noted to be stable Chest clear Heart no rubs Abdomen soft Extremity no edema Impression and plan Patient refused dialysis yesterday and we will talk again tomorrow. Objective - Vital Signs/Intake and Output Vital Signs (last 24 hours): Temp Pulse Resp BP Pulse Ox 98.6 F 82 18 176/65 H 98 12/05/16 08:03 12/05/16 09:28 12/05/16 08:03 12/05/16 09:28 12/05/16 08:03 - Medications Medications: Current Medications Al Hydrox/Mg Hydrox/Simethicone (Maalox Plus 30 Ml) 30 ml PO Q6 PRN PRN Reason: Indigestion / Heartburn Alprazolam (Xanax) 0.5 mg PO HS [facility] Last Admin: 12/04/16 22:34 Dose: 0.5 mg Amlodipine Besylate (Norvasc) 5 mg PO DAILY [facility] Last Admin: 12/05/16 09:28 Dose: 5 mg Atorvastatin Calcium (Lipitor) 20 mg PO DAILY [facility] Last Admin: 12/05/16 09:29 Dose: 20 mg Calcitriol (Rocaltrol) 0.25 mcg PO Q48H [facility] Last Admin: 12/03/16 16:52 Dose: 0.25 mcg Calcium Acetate (Phoslo) 1,334 mg PO TID [facility] Last Admin: 12/05/16 09:27 Dose: 1,334 mg Donepezil HCl (Aricept) 10 mg PO DAILY [facility] Last Admin: 12/05/16 09:28 Dose: 10 mg Epoetin Seth (Procrit) 4,000 unit IV MWF [facility] Stop: 12/07/16 18:00 Last Admin: 12/04/16 18:05 Dose: Not Given Haloperidol (Haldol) 0.5 mg PO Q4 PRN PRN Reason: Agitation Hydralazine HCl (Apresoline) 25 mg PO BID [facility] Last Admin: 12/05/16 09:26 Dose: 25 mg Hydroxyzine HCl (Atarax) 25 mg PO TID [facility] Last Admin: 12/05/16 09:27 Dose: 25 mg Vancomycin HCl 1 gm/ Sodium (Chloride) 250 mls @ 125 mls/hr IVPB MWF [facility] Last Admin: 12/04/16 18:06 Dose: Not Given Labetalol HCl (Trandate) 100 mg PO BID [facility] Last Admin: 12/05/16 09:28 Dose: 100 mg Lisinopril (Zestril) 5 mg PO DAILY [facility] Last Admin: 12/05/16 09:27 Dose: 5 mg Mirtazapine (Remeron) 7.5 mg PO [facility] Last Admin: 12/04/16 22:34 Dose: 7.5 mg Vitamin B Complex/Vit C/Folic Acid (Nephro-Valentino) 1 tab PO DAILY [facility] Last Admin: 12/05/16 09:28 Dose: 1 tab - Labs Labs: 12/04/16 05:20 12/04/16 05:20
[2016-12-05 12:36] VITALS: BP 169/55; PULSE 65; TEMP 98.5
--- NOTE | 2016-12-05 14:43 | CP.PCM.DIS ---
Provider - Provider Date of Admission: 12/02/16 09:50 Attending physician: Enid Bernard MD Primary care physician: Provider TBD Time Spent in preparation of Discharge (in minutes): 15 Diagnosis - Discharge Diagnosis (1) CKD (chronic kidney disease) stage V requiring chronic dialysis Status: Acute (2) DVT prophylaxis Status: Acute (3) HTN (hypertension) Status: Acute (4) Dementia Status: Chronic Hospital Course - Lab Results Lab Results: Most Recent Lab Values WBC 4.9 K/uL (4.8-10.8) 12/04/16 05:20 RBC 3.75 Mil/uL (3.80-5.20) L 12/04/16 05:20 Hgb 10.7 g/dL (12.0-16.0) L 12/04/16 05:20 Hct 32.4 % (34.0-47.0) L 12/04/16 05:20 MCV 86.4 fl (81.0-99.0) 12/04/16 05:20 MCH 28.6 pg (27.0-31.0) 12/04/16 05:20 MCHC 33.1 g/dL (33.0-37.0) 12/04/16 05:20 RDW 14.4 % (11.5-14.5) 12/04/16 05:20 Plt Count 115 K/uL (130-400) L 12/04/16 05:20 MPV 10.5 fl (7.2-11.7) 12/04/16 05:20 Neut % (Auto) 40.2 % (50.0-75.0) L 12/04/16 05:20 Lymph % (Auto) 31.6 % (20.0-40.0) 12/04/16 05:20 [place] % (Auto) 14.9 % (0.0-10.0) H 12/04/16 05:20 Eos % (Auto) 11.3 % (0.0-4.0) H 12/04/16 05:20 Baso % (Auto) 2.0 % (0.0-2.0) 12/04/16 05:20 Neut # 2.0 K/uL (1.8-7.0) 12/04/16 05:20 Lymph # 1.6 K/uL (1.0-4.3) 12/04/16 05:20 Door # 0.7 K/uL (0.0-0.8) 12/04/16 05:20 Eos # 0.6 K/uL (0.0-0.7) 12/04/16 05:20 Baso # 0.1 K/uL (0.0-0.2) 12/04/16 05:20 Sodium 137 mmol/l (132-148) 12/04/16 05:20 Potassium 4.4 MMOL/L (3.6-5.0) 12/04/16 05:20 Chloride 101 mmol/L (98-107) 12/04/16 05:20 Carbon Dioxide 24 mmol/L (22-30) 12/04/16 05:20 Anion Gap 16 (10-20) 12/04/16 05:20 BUN 55 mg/dl (7-17) H 12/04/16 05:20 Creatinine 5.1 mg/dL (0.7-1.2) H 12/04/16 05:20 Est GFR ( Amer) 10 12/04/16 05:20 Est GFR (Non-Af Amer) 8 12/04/16 05:20 Random Glucose 86 mg/dL (65-105) 12/04/16 05:20 Calcium 9.0 mg/dL (8.4-10.2) 12/04/16 05:20 Total Bilirubin 0.3 mg/dl (0.2-1.3) 12/04/16 05:20 AST 20 U/L (14-36) 12/04/16 05:20 ALT 26 U/L (9-52) 12/04/16 05:20 Alkaline Phosphatase 51 U/L (38-126) 12/04/16 05:20 Troponin I < 0.0120 ng/mL (0.00-0.120) 12/01/16 12:35 Total Protein 6.3 G/DL (6.3-8.2) 12/04/16 05:20 Albumin 3.8 g/dL (3.5-5.0) 12/04/16 05:20 Globulin 2.5 gm/dL (2.2-3.9) 12/04/16 05:20 Albumin/Globulin Ratio 1.5 (1.0-2.1) 12/04/16 05:20 Hepatitis A IgM Ab Negative (NEGATIVE) 12/02/16 01:57 Hep Bs Antigen Negative (NEGATIVE) 12/02/16 01:57 Hep B Core IgM Ab Negative (NEGATIVE) 12/02/16 01:57 Hepatitis C Antibody Negative (NEGATIVE) 12/02/16 01:57 Discharge Exam - Head Exam Head Exam: ATRAUMATIC, NORMAL INSPECTION, NORMOCEPHALIC Discharge Plan - Follow Up Plan Condition: GOOD Disposition: HOME/ ROUTINE Additional Instructions: f/u pmd 1-2 days, rted prn, meds per med rec final dx- esrd, hd, hyperkalemia dc continuation of dialysis w/ family and primary care Referrals: Provider TBD, [Primary Care Provider] -
[2016-12-14 17:04] VITALS: O2SAT 98
== END 2016-12-05 13:56 | disposition home or self-care (01) | DRG 640 ==
LOC: H.ER 11:28 → SUPCPDRO 11:28 → H.ERHOLD 13:33 → H.TEL 14:49 → OBSVTOIN 12-02 09:50
PROVIDERS: ADMIT Family Medicine; ATTEND Family Medicine
PROC: 5A1D00Z (ICD-10-PCS; principal; 2016-12-02)
DX: E87.5 Hyperkalemia (principal); N18.6 End stage renal disease; I12.0 Hypertensive chronic kidney disease with stage 5 chronic kidney disease or end stage renal disease; G30.9 Alzheimer's disease, unspecified; F02.80 Dementia in other diseases classified elsewhere, unspecified severity, without behavioral disturbance, psychotic disturbance, mood disturbance, and anxiety; E83.39 Other disorders of phosphorus metabolism; Z99.2 Dependence on renal dialysis; E78.00 Pure hypercholesterolemia, unspecified; D64.9 Anemia, unspecified; Z87.442 Personal history of urinary calculi

== ENCOUNTER 2016-12-13 11:52 | Observation (INO) | payer MEDICARE ==
[2016-12-13 12:01] VITALS: BMI 21.6
--- NOTE | 2016-12-13 13:29 | ED PDOC ---
HPI: General Adult Time Seen by Provider: 12/13/16 12:37 Chief Complaint (Nursing): Abnormal Labs Chief Complaint (Provider): Abnormal Labs History Per: Patient, Family History/Exam Limitations: no limitations Onset/Duration Of Symptoms: Days Current Symptoms Are (Timing): Still Present Severity: None Additional Complaint(s): Patient is a 76 year old female with a history of Alzheimer, presents to ED with son for dialysis. As per son, patient was admitted to the hospital 2 weeks ago, a port was placed and dialysis started but since discharge has not followed through with dialysis appointments. States he contacted the dialysis today but was instructed to come to ED due to the time lapse in last dialysis. Patient denies any complaints at this time. No chest pain, dizziness, weakness , headaches, cough. No numbness, tingles. Past Medical History Reviewed: Historical Data, Nursing Documentation, Vital Signs Vital Signs: Last Vital Signs Temp 97 F L 12/13/16 12:00 Pulse 70 12/13/16 12:00 Resp BP 140/66 12/13/16 12:00 Pulse Ox 99 12/13/16 13:31 - Medical History PMH: Alzheimer's Disease, Anemia, Diverticulitis, HTN, Hypercholesterolemia, Kidney Stones, Migraine, End Stage Renal Disease, Chronic Kidney Disease Denies: HIV - Surgical History Surgical History: Appendectomy, Tonsillectomy - Family History Family History: States: Unknown Family Hx - Living Arrangements Living Arrangements: With Family - Social History Alcohol: None Drugs: Denies - Immunization History Hx Tetanus Toxoid Vaccination: No Hx Influenza Vaccination: No Hx Pneumococcal Vaccination: No - Home Medications Home Medications: Ambulatory Orders Medication Instructions Recorded Atorvastatin [Lipitor] 20 mg PO DAILY 08/16/16 Calcitriol [Rocaltrol] 0.25 mcg PO Q48H 08/16/16 Calcium Acetate [Phoslo] 2 cap PO TID 08/16/16 Donepezil [Aricept] 10 mg PO DAILY 08/16/16 Labetalol [Trandate] 100 mg PO BID 08/16/16 Lisinopril [Zestril] 5 mg PO DAILY 08/16/16 amLODIPine [Norvasc] 5 mg PO DAILY 08/16/16 hydrALAZINE [Apresoline] 25 mg PO BID 08/16/16 Alprazolam [Xanax] 0.5 mg PO HS 11/04/16 B Complex W-C No.20/Folic Acid 1 cap PO DAILY 11/04/16 [Renal Caps Softgel] Mirtazapine 7.5 mg PO HS 11/04/16 hydrOXYzine HCl [Atarax] 25 mg PO TID 11/04/16 Haloperidol [Haldol] 0.5 mg PO TID 12/13/16 - Allergies Allergies/Adverse Reactions: Allergies Allergy/AdvReac Type Severity Reaction Status Date / Time No Known Allergies Allergy Verified 11/04/16 03:07 Review of Systems ROS Statement: Except As Marked, All Systems Reviewed And Found Negative Cardiovascular: Negative for: Chest Pain, Palpitations Respiratory: Negative for: Shortness of Breath Gastrointestinal: Negative for: Nausea, Vomiting, Abdominal Pain Musculoskeletal: Negative for: Neck Pain, Back Pain Neurological: Negative for: Weakness, Numbness, Headache Physical Exam - Reviewed Nursing Documentation Reviewed: Yes Vital Signs Reviewed: Yes - Physical Exam Appears: Positive for: Non-toxic, No Acute Distress Skin: Positive for: Normal Color, Warm. Negative for: Pallor, Jaundice Eye Exam: Positive for: Normal appearance Neck: Positive for: Normal, Painless ROM Cardiovascular/Chest: Positive for: Regular Rate, Rhythm, Other (Port left upper chest, no sign of infection ). Negative for: Murmur Respiratory: Positive for: Normal Breath Sounds. Negative for: Respiratory Distress Gastrointestinal/Abdominal: Positive for: Normal Exam. Negative for: Tenderness , Distended Back: Positive for: Normal Inspection. Negative for: L CVA Tenderness, R CVA Tenderness Extremity: Positive for: Normal ROM. Negative for: Pedal Edema, Calf Tenderness Neurologic/Psych: Positive for: Alert (baseline as per son ) - Laboratory Results Result Diagrams: 12/13/16 13:40 12/13/16 13:40 Interpretation Of Abn Labs: 5.7 K - ECG ECG: Positive for: Interpreted By Me, Viewed By Me ECG Rhythm: Positive for: Normal QRS, Normal ST Segment, Sinus Rhythm O2 Sat by Pulse Oximetry: 99 (RA) Pulse Ox Interpretation: Normal - Progress ED Course And Treament: 1515: Spoke with J Carlos for Dr. Bernard. Will admit tele obs. Pt. K elevated and tx given. J Carlos to put in further orders when pt. reaches floor. Dr. Benedict paged. Medical Decision Making Medical Decision Making: Time: 1305 Initial impression: Dialysis Initial plan: -- EKG -- CMP -- Troponin -- CBC -- PT/PTT Scribe Attestation: Documented by Teresa Motta acting as a scribe for Sam Guerrero MD MD Scribe Attestation: All medical record entries made by the Scribe were at my direction and personally dictated by me. I have reviewed the chart and agree that the record accurately reflects my personal performance of the history, physical exam, medical decision making, and the department course for this patient. I have also personally directed, reviewed, and agree with the discharge instructions and disposition. Disposition - Clinical Impression Clinical Impression: Hyperkalemia, Renal failure - Patient ED Disposition Is Patient to be Admitted: Yes Counseled Patient/Family Regarding: Studies Performed, Diagnosis - Disposition Disposition Time: 14:00 Condition: FAIR
[2016-12-13 14:13] LABS: BASO # 0.1 K/uL (0.0-0.2); BASO % 1.6 % (0.0-2.0); EOS # 0.4 K/uL (0.0-0.7); EOS % 8.3 % (0.0-4.0); HEMATOCRIT 35.7 % (34.0-47.0); LYMPH # 1.3 K/uL (1.0-4.3); MEAN CELL VOLUME 86.7 fl (81.0-99.0); MEAN CORPUSCULAR HEMOGLOBIN 27.8 pg (27.0-31.0); MEAN CORPUSCULAR HGB CONC 32.1 g/dL (33.0-37.0); MEAN PLATELET VOLUME 10.5 fl (7.2-11.7); MONO # 0.6 K/uL (0.0-0.8); MONO % 12.2 % (0.0-10.0); NEUT # 2.5 K/uL (1.8-7.0); NEUT % 50.9 % (50.0-75.0); NRBC % 0.1 % (0.0-0.0)
[2016-12-13 14:17] LABS: ALB/GLOB RATIO 1.6 (1.0-2.1); BILIRUBIN,TOTAL 0.4 mg/dl (0.2-1.3); CALCIUM 9.6 mg/dL (8.4-10.2); TOTAL PROTEIN 7.3 G/DL (6.3-8.2)
[2016-12-13 14:18] LABS: POTASSIUM 5.7 MMOL/L (3.6-5.0)
[2016-12-13 14:30] LABS: TROPONIN I 0.022 ng/mL (0.00-0.120)
[2016-12-13 14:31] LABS: PARTIAL THROMBOPLASTIN TIME 26.5 SECONDS (23.3-32.5)
[2016-12-13] MEDS ORDERED: Dextrose 50% SYRINGE Inj (50 ml) IVP ONE (15:13)
[2016-12-13] MEDS ORDERED: Insulin Regular 100 units/ml IV STA (15:13)
[2016-12-13] MEDS ORDERED: Albuterol-Ipratrop 3 mg / 0.5 (3 ml) UD IH STA (15:14)
[2016-12-13] MEDS ORDERED: Sod Polystyrene Sulf 15 gm/60 ml Oral Susp PO ONE (15:14)
[2016-12-13] MEDS ORDERED: Albuterol-Ipratrop 3 mg / 0.5 (3 ml) UD ONE (16:32)
[2016-12-13] MEDS ORDERED: Sod Polystyrene Sulf 15 gm/60 ml Oral Susp ONE (16:32)
--- NOTE | 2016-12-13 16:40 | CP.PCM.CON ---
History of Present Illness - History of Present Illness History of Present Illness: This patient who is 76 years old known to me with chronic kidney disease patient started on dialysis in the past few months however in the past couple weeks she decided not to go for dialysis and she refused and her son is aware. Patient was evaluated by psychiatry at the time and declared to be competent to decide not to go for dialysis. Until she decided to come yesterday to the emergency room was I potassium complaining of nausea and not feeling good and she is agreeable for dialysis now. Past medical history as we mentioned hypertension and chronic kidney disease started on dialysis in the recent past. Patient has advanced dermatitis with skin rash in the past few months she was treated with intravenous Solu-Medrol at the time and then switched to by mouth steroids and she continued to have some itching and continue to receive Benadryl or similar. Social history not contributory also and Demerol the past history she has Alzheimer history which is not severe. Patient also has fistula in the left upper arm which is not working well and she supposed to have follow-up with the vascular for further revision Review of Systems - Constitutional Constitutional: Anorexia - Cardiovascular Cardiovascular: absent: Chest Pain, Dyspnea, Edema - Respiratory Respiratory: Dyspnea on Exertion. absent: Cough - Gastrointestinal Gastrointestinal: Nausea. absent: Abdominal Pain - Genitourinary Genitourinary: Nocturia - Menstruation Menstruation: As Per HPI - Musculoskeletal Musculoskeletal: As Per HPI, Muscle Weakness - Psychiatric Psychiatric: As Per HPI, Depression - Endocrine Endocrine: As Per HPI - Hematologic/Lymphatic Hematologic: absent: Easy Bruising Past Patient History - Infectious Disease Hx of Infectious Diseases: None - Tetanus Immunizations Tetanus Immunization: Unknown - Past Medical History & Family History Past Medical History?: Yes - Past Social History Alcohol: None Drugs: Denies - CARDIAC Hx Hypercholesterolemia: Yes Hx Hypertension: Yes - PULMONARY Hx Respiratory Disorders: No - NEUROLOGICAL Hx Alzheimer's Disease: Yes Hx Migraine: Yes - HEENT Hx HEENT Problems: No Other/Comment: wears eye glasses. - RENAL Hx Chronic Kidney Disease: Yes Hx Kidney Stones: Yes - ENDOCRINE/METABOLIC Hx Endocrine Disorders: No - HEMATOLOGICAL/ONCOLOGICAL Hx Anemia: Yes Hx Human Immunodeficiency Virus (HIV): No - INTEGUMENTARY Hx Dermatological Problems: No - MUSCULOSKELETAL/RHEUMATOLOGICAL Hx Falls: Yes - GASTROINTESTINAL Hx Diverticulitis: Yes - GENITOURINARY/GYNECOLOGICAL Hx Genitourinary Disorders: No - PSYCHIATRIC Hx Psychophysiologic Disorder: No Hx Substance Use: No - SURGICAL HISTORY Hx Appendectomy: Yes Hx Tonsillectomy: Yes - ANESTHESIA Hx Anesthesia: Yes Hx Anesthesia Reactions: No Hx Malignant Hyperthermia: No Meds Allergies/Adverse Reactions: Allergies Allergy/AdvReac Type Severity Reaction Status Date / Time No Known Allergies Allergy Verified 11/04/16 03:07 - Medications Medications: Current Medications Alprazolam (Xanax) 0.5 mg PO HS [facility] Amlodipine Besylate (Norvasc) 5 mg PO DAILY [facility] Atorvastatin Calcium (Lipitor) 20 mg PO DAILY [facility] Calcitriol (Rocaltrol) 0.25 mcg PO Q48H [facility] Calcium Acetate (Phoslo) 1,334 mg PO TID [facility] Donepezil HCl (Aricept) 10 mg PO DAILY [facility] Haloperidol (Haldol) 0.5 mg PO TID [facility] Home Med (B Complex W-C No.20/Folic Acid [Renal Caps Softgel]) 1 cap PO DAILY [facility] Hydralazine HCl (Apresoline) 25 mg PO BID [facility] Hydroxyzine HCl (Atarax) 25 mg PO TID [facility] Labetalol HCl (Trandate) 100 mg PO BID [facility] Lisinopril (Zestril) 5 mg PO DAILY [facility] Mirtazapine (Remeron) 7.5 mg PO HS [facility] Physical Exam - Constitutional Appears: No Acute Distress - ENT Exam ENT Exam: Mucous Membranes Moist - Respiratory Exam Respiratory Exam: NORMAL BREATHING PATTERN. absent: Chest Wall Tenderness - Cardiovascular Exam Cardiovascular Exam: REGULAR RHYTHM. absent: Rubs - Extremities Exam Extremities exam: Negative for: calf tenderness - Back Exam Back exam: absent: CVA tenderness (L), CVA tenderness (R) - Neurological Exam Neurological exam: Alert Results - Vital Signs Recent Vital Signs: Last Vital Signs Temp 97 F L 12/13/16 12:00 Pulse 70 12/13/16 12:00 Resp BP 140/66 12/13/16 12:00 Pulse Ox 99 12/13/16 15:17 - Labs Result Diagrams: 12/14/16 05:45 12/14/16 05:45 Assessment & Plan (1) CKD (chronic kidney disease) stage V requiring chronic dialysis Assessment and Plan: End stage renal disease patient has been refusing dialysis intermittently. She is agreeable now hemodialysis ordered to be done stat for hyperkalemia as well. We will reschedule the patient for outpatient hemodialysis twice a week. Continue controlling her blood pressure and the rest of the medication and phosphorus binder. see dialysis order. pt. is tilerating well. Status: Chronic
[2016-12-13] MEDS ORDERED: MIRTAZAPINE 7.5 MG PO SCH (22:00)
[2016-12-14 04:23] VITALS: O2SAT 97
[2016-12-14 06:39] LABS: BASO # 0.1 K/uL (0.0-0.2); BASO % 1.9 % (0.0-2.0); EOS # 0.4 K/uL (0.0-0.7); EOS % 9.1 % (0.0-4.0); HEMATOCRIT 32.5 % (34.0-47.0); LYMPH # 1.3 K/uL (1.0-4.3); LYMPH % 28.7 % (20.0-40.0); MEAN CELL VOLUME 85.1 fl (81.0-99.0); MEAN CORPUSCULAR HEMOGLOBIN 28.9 pg (27.0-31.0); MEAN PLATELET VOLUME 9.9 fl (7.2-11.7); MONO # 0.7 K/uL (0.0-0.8); MONO % 14.4 % (0.0-10.0); NEUT # 2.1 K/uL (1.8-7.0); NEUT % 45.9 % (50.0-75.0); RED CELL DISTRIBUTION WIDTH 14.9 % (11.5-14.5); WHITE BLOOD COUNT 4.6 K/uL (4.8-10.8)
[2016-12-14 07:46] LABS: ALB/GLOB RATIO 1.6 (1.0-2.1); BILIRUBIN,TOTAL 0.6 mg/dl (0.2-1.3); CALCIUM 8.8 mg/dL (8.4-10.2); POTASSIUM 3.9 MMOL/L (3.6-5.0); TOTAL PROTEIN 6.7 G/DL (6.3-8.2)
--- NOTE | 2016-12-14 08:15 | CP.PCM.HP ---
History of Present Illness - History of Present Illness History of Present Illness: pt admitted to restart dialysis. pt did not go to dialysis x 2 wks. this has been a chornic situation for this pt as she ahs been constantly refusing dialysis. at present. is offering no comlaitns. did 2.5 h tx last night. case d/ c w/ dr duong who will consider add'l tx today. bw noted. no comalints/ distress. no cp/dyspnea. Present on Admission - Present on Admission Any Indicators Present on Admission: No Past Patient History - Infectious Disease Hx of Infectious Diseases: None - Tetanus Immunizations Tetanus Immunization: Unknown - Past Medical History & Family History Past Medical History?: Yes - Past Social History Smoking Status: Never Smoked - CARDIAC Hx Hypercholesterolemia: Yes Hx Hypertension: Yes - PULMONARY Hx Respiratory Disorders: No - NEUROLOGICAL Hx Alzheimer's Disease: Yes Hx Migraine: Yes - HEENT Hx HEENT Problems: No Other/Comment: wears eye glasses. - RENAL Hx Chronic Kidney Disease: Yes Hx Kidney Stones: Yes - ENDOCRINE/METABOLIC Hx Endocrine Disorders: No - HEMATOLOGICAL/ONCOLOGICAL Hx Anemia: Yes Hx Human Immunodeficiency Virus (HIV): No - INTEGUMENTARY Hx Dermatological Problems: No - MUSCULOSKELETAL/RHEUMATOLOGICAL Hx Falls: Yes - GASTROINTESTINAL Hx Diverticulitis: Yes - GENITOURINARY/GYNECOLOGICAL Hx Genitourinary Disorders: No - PSYCHIATRIC Hx Psychophysiologic Disorder: No Hx Substance Use: No - SURGICAL HISTORY Hx Appendectomy: Yes Hx Tonsillectomy: Yes - ANESTHESIA Hx Anesthesia: Yes Hx Anesthesia Reactions: No Hx Malignant Hyperthermia: No Meds Allergies/Adverse Reactions: Allergies Allergy/AdvReac Type Severity Reaction Status Date / Time No Known Allergies Allergy Verified 11/04/16 03:07 Physical Exam - Constitutional Appears: Well, Non-toxic, No Acute Distress - Head Exam Head Exam: ATRAUMATIC, NORMAL INSPECTION, NORMOCEPHALIC - Eye Exam Eye Exam: EOMI, Normal appearance, PERRL Pupil Exam: NORMAL ACCOMODATION, PERRL - ENT Exam ENT Exam: Mucous Membranes Moist, Normal Exam - Neck Exam Neck exam: Positive for: Normal Inspection - Respiratory Exam Respiratory Exam: Clear to Auscultation Bilateral, NORMAL BREATHING PATTERN - Cardiovascular Exam Cardiovascular Exam: REGULAR RHYTHM, RRR, +S1, +S2 - GI/Abdominal Exam GI & Abdominal Exam: Normal Bowel Sounds, Soft. absent: Tenderness - Extremities Exam Extremities exam: Positive for: full ROM, normal capillary refill, normal inspection, pedal pulses present - Back Exam Back exam: NORMAL INSPECTION - Neurological Exam Neurological exam: Alert, CN II-XII Intact, Normal Gait, Oriented x3, Reflexes Normal - Psychiatric Exam Psychiatric exam: Normal Affect, Normal Mood - Skin Skin Exam: Dry, Intact, Normal Color, Warm Results - Vital Signs Recent Vital Signs: Last Vital Signs Temp 98.4 F 12/14/16 04:22 Pulse 73 12/14/16 04:22 Resp 19 12/14/16 04:22 BP 134/61 12/14/16 04:22 Pulse Ox 97 12/14/16 04:22 - Labs Result Diagrams: 12/14/16 05:45 12/14/16 05:45 Labs: Laboratory Results - last 24 hr 12/13/16 12/14/16 12/14/16 16:47 05:45 05:45 WBC 4.6 L RBC 3.82 Hgb 11.0 L Hct 32.5 L MCV 85.1 MCH 28.9 MCHC 34.0 RDW 14.9 H Plt Count 100 L MPV 9.9 Neut % (Auto) 45.9 L Lymph % (Auto) 28.7 [place] % (Auto) 14.4 H Eos % (Auto) 9.1 H Baso % (Auto) 1.9 Neut # 2.1 Lymph # 1.3 [place]gg # 0.7 Eos # 0.4 Baso # 0.1 Sodium 137 Potassium 3.9 Chloride 100 Carbon Dioxide 24 Anion Gap 16 BUN 34 H Creatinine 2.5 H Est GFR ( Amer) 23 Est GFR (Non-Af Amer) 19 POC Glucose (mg/dL) 171 H Random Glucose 88 Calcium 8.8 Total Bilirubin 0.6 AST 44 H D ALT 23 Alkaline Phosphatase 61 Total Protein 6.7 Albumin 4.1 Globulin 2.6 Albumin/Globulin Ratio 1.6 12/14/16 05:57 WBC RBC Hgb Hct MCV MCH MCHC RDW Plt Count MPV Neut % (Auto) Lymph % (Auto) [place] % (Auto) Eos % (Auto) Baso % (Auto) Neut # Lymph # Gregg # Eos # Baso # Sodium Potassium Chloride Carbon Dioxide Anion Gap BUN Creatinine Est GFR ( Amer) Est GFR (Non-Af Amer) POC Glucose (mg/dL) 90 Random Glucose Calcium Total Bilirubin AST ALT Alkaline Phosphatase Total Protein Albumin Globulin Albumin/Globulin Ratio Assessment & Plan (1) CKD (chronic kidney disease) stage V requiring chronic dialysis Assessment and Plan: esrd last night, ?? ad'l tx, nephro Status: Acute (2) DVT prophylaxis Assessment and Plan: scd and ae hose, ambulation Status: Acute - Assessment and Plan (Free Text) Assessment: pt requesting dnr/dni status, d/c w/ pt and so ordered Decision To Admit - Pt Status Changed To: Hospital Disposition Of: Observation - . Bed Request Type: Telemetry Admitting Physician: Enid Bernard
[2016-12-14 08:21] VITALS: BP 156/80; PULSE 74; RESP 20; TEMP 98.6
[2016-12-14] MEDS ORDERED: Multivitamin Vitamin B Complex (Nephro-Vite) Tab PO SCH (09:00)
[2016-12-14] MEDS ORDERED: [UNRECOGNIZED DRUG - REMARK] PO SCH (09:00)
--- NOTE | 2016-12-14 09:01 | CP.PCM.PN ---
Subjective - Date & Time of Evaluation Date of Evaluation: 12/14/16 Time of Evaluation: 08:58 - Subjective Subjective: Patient and bed awake consciousness He completed hemodialysis yesterday without any complication Repeat blood work reviewed and acceptable Patient complaining of chronic itching Patient agreeable to continue for hemodialysis as outpatient at [facility] emergency worker to call and arrange for reinstatement and placement. Physical exam Vital sign noted stable Chest clear Heart no rubs Abdomen soft Extremity no edema Impression and plan Continue hemodialysis twice a week Continue on antihypertensive medication and phosphorus binder We will check PTH and phosphorus as outpatient because she is going home today. Patient need referral to see the vascular for the left upper arm AV fistula. Objective - Vital Signs/Intake and Output Vital Signs (last 24 hours): Temp Pulse Resp BP Pulse Ox 98.6 F 74 20 156/80 H 97 12/14/16 08:20 12/14/16 08:20 12/14/16 08:20 12/14/16 08:20 12/14/16 08:20 - Medications Medications: Current Medications Alprazolam (Xanax) 0.5 mg PO HS [facility] Last Admin: 12/13/16 22:15 Dose: 0.5 mg Amlodipine Besylate (Norvasc) 5 mg PO DAILY [facility] Atorvastatin Calcium (Lipitor) 20 mg PO DAILY [facility] Calcitriol (Rocaltrol) 0.25 mcg PO Q48H [facility] Calcium Acetate (Phoslo) 1,334 mg PO TID [facility] Last Admin: 12/13/16 19:28 Dose: Not Given Donepezil HCl (Aricept) 10 mg PO DAILY [facility] Haloperidol (Haldol) 0.5 mg PO TID [facility] Last Admin: 12/13/16 19:27 Dose: Not Given Home Med (B Complex W-C No.20/Folic Acid [Renal Caps Softgel]) 1 cap PO DAILY [facility] Hydralazine HCl (Apresoline) 25 mg PO BID [facility] Last Admin: 12/13/16 19:26 Dose: Not Given Hydroxyzine HCl (Atarax) 25 mg PO TID [facility] Last Admin: 12/13/16 19:27 Dose: Not Given Labetalol HCl (Trandate) 100 mg PO BID [facility] Last Admin: 12/13/16 19:28 Dose: Not Given Lisinopril (Zestril) 5 mg PO DAILY [facility] Mirtazapine (Remeron) 7.5 mg PO HS [facility] Last Admin: 12/13/16 22:15 Dose: 7.5 mg Vitamin B Complex/Vit C/Folic Acid (Nephro-Valentino) 1 tab PO DAILY [facility] - Labs Labs: 12/14/16 05:45 12/14/16 05:45 PT 10.5 SECONDS (9.6-11.2) 12/13/16 13:40 INR 1.01 (0.92-1.08) 12/13/16 13:40 APTT 26.5 SECONDS (23.3-32.5) 12/13/16 13:40 Assessment and Plan (1) CKD (chronic kidney disease) stage V requiring chronic dialysis Status: Chronic
--- NOTE | 2016-12-14 10:18 | CARD ---
APPROVED REPORT EKG Measurement Heart [id number] <Conclusion> Normal sinus rhythm Nonspecific T wave abnormality Abnormal ECG
--- NOTE | 2016-12-14 11:12 | CP.PCM.DIS ---
Provider - Provider Date of Admission: 12/13/16 14:13 Attending physician: Enid Bernard MD Time Spent in preparation of Discharge (in minutes): 15 Diagnosis - Discharge Diagnosis (1) CKD (chronic kidney disease) stage V requiring chronic dialysis Status: Chronic (2) DVT prophylaxis Status: Acute Hospital Course - Lab Results Lab Results: Most Recent Lab Values WBC 4.6 K/uL (4.8-10.8) L 12/14/16 05:45 RBC 3.82 Mil/uL (3.80-5.20) 12/14/16 05:45 Hgb 11.0 g/dL (12.0-16.0) L 12/14/16 05:45 Hct 32.5 % (34.0-47.0) L 12/14/16 05:45 MCV 85.1 fl (81.0-99.0) 12/14/16 05:45 MCH 28.9 pg (27.0-31.0) 12/14/16 05:45 MCHC 34.0 g/dL (33.0-37.0) 12/14/16 05:45 RDW 14.9 % (11.5-14.5) H 12/14/16 05:45 Plt Count 100 K/uL (130-400) L 12/14/16 05:45 MPV 9.9 fl (7.2-11.7) 12/14/16 05:45 Neut % (Auto) 45.9 % (50.0-75.0) L 12/14/16 05:45 Lymph % (Auto) 28.7 % (20.0-40.0) 12/14/16 05:45 [place] % (Auto) 14.4 % (0.0-10.0) H 12/14/16 05:45 Eos % (Auto) 9.1 % (0.0-4.0) H 12/14/16 05:45 Baso % (Auto) 1.9 % (0.0-2.0) 12/14/16 05:45 Neut # 2.1 K/uL (1.8-7.0) 12/14/16 05:45 Lymph # 1.3 K/uL (1.0-4.3) 12/14/16 05:45 [place] # 0.7 K/uL (0.0-0.8) 12/14/16 05:45 Eos # 0.4 K/uL (0.0-0.7) 12/14/16 05:45 Baso # 0.1 K/uL (0.0-0.2) 12/14/16 05:45 PT 10.5 SECONDS (9.6-11.2) 12/13/16 13:40 INR 1.01 (0.92-1.08) 12/13/16 13:40 APTT 26.5 SECONDS (23.3-32.5) 12/13/16 13:40 Sodium 137 mmol/l (132-148) 12/14/16 05:45 Potassium 3.9 MMOL/L (3.6-5.0) 12/14/16 05:45 Chloride 100 mmol/L (98-107) 12/14/16 05:45 Carbon Dioxide 24 mmol/L (22-30) 12/14/16 05:45 Anion Gap 16 (10-20) 12/14/16 05:45 BUN 34 mg/dl (7-17) H 12/14/16 05:45 Creatinine 2.5 mg/dL (0.7-1.2) H 12/14/16 05:45 Est GFR ( Amer) 23 12/14/16 05:45 Est GFR (Non-Af Amer) 19 12/14/16 05:45 POC Glucose (mg/dL) 90 mg/dL (65-110) 12/14/16 05:57 Random Glucose 88 mg/dL (65-105) 12/14/16 05:45 Calcium 8.8 mg/dL (8.4-10.2) 12/14/16 05:45 Total Bilirubin 0.6 mg/dl (0.2-1.3) 12/14/16 05:45 AST 44 U/L (14-36) H D 12/14/16 05:45 ALT 23 U/L (9-52) 12/14/16 05:45 Alkaline Phosphatase 61 U/L (38-126) 12/14/16 05:45 Troponin I 0.0220 ng/mL (0.00-0.120) 12/13/16 13:40 Total Protein 6.7 G/DL (6.3-8.2) 12/14/16 05:45 Albumin 4.1 g/dL (3.5-5.0) 12/14/16 05:45 Globulin 2.6 gm/dL (2.2-3.9) 12/14/16 05:45 Albumin/Globulin Ratio 1.6 (1.0-2.1) 12/14/16 05:45 Discharge Exam - Head Exam Head Exam: ATRAUMATIC, NORMAL INSPECTION, NORMOCEPHALIC Discharge Plan - Follow Up Plan Condition: FAIR Disposition: HOME/ ROUTINE Instructions: Hyperkalemia (DC), Hemodialysis for Acute Renal Failure (DC) Additional Instructions: patient cleared for discharge to home today by HD reinstated by SW , next HD in am pt. to f/u with final dx-esrd-hd f/u rmg, rted prn, meds per med rec Referrals: Enid Bernard MD [Staff Provider] - Fredis Benedict MD [Staff Provider] -
== END 2016-12-14 11:51 | disposition home or self-care (01) ==
LOC: H.ER 11:52 → H.ERHOLD 14:13 → H.TEL 17:29
PROVIDERS: ADMIT Family Medicine; ATTEND Family Medicine
DX: I12.0 Hypertensive chronic kidney disease with stage 5 chronic kidney disease or end stage renal disease (principal); N18.6 End stage renal disease; Z66 Do not resuscitate; G30.9 Alzheimer's disease, unspecified; E78.00 Pure hypercholesterolemia, unspecified; Z99.2 Dependence on renal dialysis; Z91.15 Patient's noncompliance with renal dialysis; E87.5 Hyperkalemia
CPT/HCPCS: 36415; 80053; 82948; 84484; 85025; 85610; 85730; 93005; 99285; G0378

== ENCOUNTER 2016-12-20 12:33 | Inpatient (IN) | payer MEDICARE ==
[2016-12-20 12:34] VITALS: BMI 21.6
[2016-12-20 13:15] LABS: BASO % 0.2 % (0.0-2.0); EOS % 0.2 % (0.0-4.0); HEMATOCRIT 34.6 % (34.0-47.0); LYMPH # 0.7 K/uL (1.0-4.3); MEAN CORPUSCULAR HEMOGLOBIN 28.8 pg (27.0-31.0); MEAN CORPUSCULAR HGB CONC 33.9 g/dL (33.0-37.0); MEAN PLATELET VOLUME 10.3 fl (7.2-11.7); MONO # 0.8 K/uL (0.0-0.8); NEUT # 9.5 K/uL (1.8-7.0); NEUT % 86.6 % (50.0-75.0); PLATELET COUNT 97 K/uL (130-400); RED CELL DISTRIBUTION WIDTH 15.3 % (11.5-14.5)
[2016-12-20 13:20] LABS: ALB/GLOB RATIO 1.7 (1.0-2.1); BILIRUBIN,TOTAL 0.8 mg/dl (0.2-1.3); TOTAL PROTEIN 7.3 G/DL (6.3-8.2)
[2016-12-20 13:22] LABS: POTASSIUM 5.2 MMOL/L (3.6-5.0)
[2016-12-20 13:31] LABS: TROPONIN I 0.058 ng/mL (0.00-0.120)
[2016-12-20] MEDS ORDERED: Vancomycin 1 g Inj ONE (13:39)
--- NOTE | 2016-12-20 13:39 | ED PDOC ---
HPI: General Adult Time Seen by Provider: 12/20/16 12:46 Chief Complaint (Nursing): High Blood Pressure Chief Complaint (Provider): Tremors History Per: Family History/Exam Limitations: no limitations Onset/Duration Of Symptoms: Days Have you had recent travel within the past 21 days to any of the following countries: [place], [place], [place] or [place]?: No Current Symptoms Are (Timing): Still Present Severity: Moderate Additional Complaint(s): The pt is a 76yo female, PMHx of HTN, end stage renal disease, chronic kidney disease, brought to the ED by her son, for evaluation s/p the pt was shaking uncontrollably earlier today. Son reports the pt has not been going to her dialysis appointments and her last dialysis was on 12/14. Pt's son reports noticing a fever, Tmax 100.3 and said he noticed some pus from the pt's portacath placed on pt's left chest. Patient denies any pain. Offers no additional medical complaints. Ad Terminal Makeup Operator: Dr. Benedict Past Medical History Reviewed: Historical Data, Nursing Documentation, Vital Signs Vital Signs: Last Vital Signs Temp 101.1 F H 12/20/16 15:09 Pulse 84 12/20/16 15:09 Resp 16 12/20/16 12:35 BP 148/55 L 12/20/16 15:09 Pulse Ox 96 12/20/16 15:09 - Medical History PMH: Alzheimer's Disease, Anemia, Diverticulitis, HTN, Hypercholesterolemia, Kidney Stones, Migraine, End Stage Renal Disease, Chronic Kidney Disease Denies: HIV - Surgical History Surgical History: Appendectomy, Tonsillectomy - Family History Family History: States: Unknown Family Hx, Hypertension - Immunization History Hx Tetanus Toxoid Vaccination: No Hx Influenza Vaccination: No Hx Pneumococcal Vaccination: No - Home Medications Home Medications: Ambulatory Orders Medication Instructions Recorded Atorvastatin [Lipitor] 20 mg PO DAILY 08/16/16 Calcitriol [Rocaltrol] 0.25 mcg PO Q48H 08/16/16 Calcium Acetate [Phoslo] 2 cap PO TID 08/16/16 Donepezil [Aricept] 10 mg PO DAILY 08/16/16 Labetalol [Trandate] 100 mg PO BID 08/16/16 Lisinopril [Zestril] 5 mg PO DAILY 08/16/16 amLODIPine [Norvasc] 5 mg PO DAILY 08/16/16 hydrALAZINE [Apresoline] 25 mg PO BID 08/16/16 Alprazolam [Xanax] 0.5 mg PO HS 11/04/16 B Complex W-C No.20/Folic Acid 1 cap PO DAILY 11/04/16 [Renal Caps Softgel] Mirtazapine 7.5 mg PO HS 11/04/16 hydrOXYzine HCl [Atarax] 25 mg PO TID 11/04/16 Haloperidol [Haldol] 0.5 mg PO TID 12/13/16 - Allergies Allergies/Adverse Reactions: Allergies Allergy/AdvReac Type Severity Reaction Status Date / Time No Known Allergies Allergy Verified 12/20/16 12:34 Review of Systems ROS Statement: Except As Marked, All Systems Reviewed And Found Negative Constitutional: Positive for: Fever Skin: Positive for: Other (pus noticed by pt's son from portacath insertion site ) Physical Exam - Reviewed Nursing Documentation Reviewed: Yes Vital Signs Reviewed: Yes - Physical Exam Appears: Positive for: Uncomfortable Head Exam: Positive for: ATRAUMATIC, NORMAL INSPECTION, NORMOCEPHALIC Skin: Positive for: Normal Color, Warm, DRY Neck: Positive for: Normal, Supple Cardiovascular/Chest: Positive for: Regular Rate, Rhythm, Other (surrounding erythema with warmth noted at portacath insertion site) Respiratory: Positive for: Normal Breath Sounds. Negative for: Respiratory Distress Gastrointestinal/Abdominal: Positive for: Soft. Negative for: Tenderness Extremity: Negative for: Pedal Edema, Swelling Neurologic/Psych: Positive for: Alert, Oriented - Laboratory Results Result Diagrams: 12/20/16 13:06 12/20/16 13:06 - ECG Interpretation Of ECG: Sinus rhythm Normal axis no acute changes Rate of 87 O2 Sat by Pulse Oximetry: 99 (RA) Pulse Ox Interpretation: Normal Medical Decision Making Medical Decision Making: Time: 1302 Impression: Tremors, weakness Plan: * Bloodwork * CXR * Vancomyocin * Blood culture * Wound culture * Reassess Scribe Attestation: Documented by Olga East acting as a scribe for Dione Burks MD. Provider Attestation: All medical record entries made by the Scribe were at my direction and personally dictated by me. I have reviewed the chart and agree that the record accurately reflects my personal performance of the history, physical exam, medical decision making, and the department course for this patient. I have also personally directed, reviewed, and agree with the discharge instructions and disposition. Disposition - Clinical Impression Clinical Impression: Infection of central venous catheter exit site - Patient ED Disposition Is Patient to be Admitted: Yes Doctor Will See Patient In The: Hospital - Disposition Disposition: Transfer of Care Disposition Time: 15:00 Condition: GUARDED - Pt Status Changed To: Hospital Disposition Of: Inpatient - Admit Certification Admit to Inpatient:: After my assessment, the patient will require hospitalization for at least two midnights. This is because of the severity of symptoms shown, intensity of services needed, and/or the medical risk in this patient being treated as an outpatient. - POA Present On Arrival: [facility]
[2016-12-20 13:47] LABS: PARTIAL THROMBOPLASTIN TIME 27.1 Seconds (25.6-37.1)
[2016-12-20 14:35] LABS: NEUTROPHIL 84 % (42-75); REACTIVE LYMPHOCYTES 1 % (0-0); TOTAL CELLS COUNTED 100
[2016-12-20 15:12] LABS: ABG ALLEN TEST YES; ARTERIAL BLOOD GAS HCO3 23.6 mmol/L (21-28); ARTERIAL BLOOD GAS PH 7.44 (7.35-7.45); ARTERIAL BLOOD GAS PO2 66 mm/Hg (80-100)
--- NOTE | 2016-12-20 15:48 | RAD ---
HISTORY: fever COMPARISON: Chest x-ray performed 12/01/16 TECHNIQUE: Chest, one view. FINDINGS: Left IJ approach dialysis catheter with distal tip directed in an unusual fashion superiorly; this represents a change since prior study and may be exaggerated by patient obliquity. More proximal tip likely terminates within the brachiocephalic vein. The patient's chin obscures evaluation of the left lung apex. LUNGS: No focal consolidation. Please note that chest x-ray has limited sensitivity for the detection of pulmonary masses. PLEURA: No significant pleural effusion identified. No definite pneumothorax . CARDIOVASCULAR: Cardiomegaly. Atherosclerotic calcifications of the aorta. OSSEOUS STRUCTURES: Degenerative changes. VISUALIZED UPPER ABDOMEN: Unremarkable. OTHER FINDINGS: None. IMPRESSION: Left IJ approach dialysis catheter with distal tip directed in an unusual fashion superiorly; this represents a change since prior study and may be exaggerated by patient obliquity. More proximal tip likely terminates within the brachiocephalic vein. If clinically indicated, suggest repeat study with the patient in improved alignment. Findings discussed with Dr. Burks on 12/20/16 at 3:42 p.m.
--- NOTE | 2016-12-20 20:54 | CP.PCM.CON ---
History of Present Illness - History of Present Illness History of Present Illness: dictated Past Patient History - Infectious Disease Hx of Infectious Diseases: None - Tetanus Immunizations Tetanus Immunization: Unknown - Past Medical History & Family History Past Medical History?: Yes - Past Social History Smoking Status: Never Smoked - CARDIAC Hx Cardiac Disorders: Yes (HTN,HLD) - PULMONARY Hx Respiratory Disorders: No - NEUROLOGICAL Hx Neurological Disorder: Yes (MIGRAINE,ALZHEIMER) - HEENT Hx HEENT Problems: No - RENAL Hx Chronic Kidney Disease: Yes (DIALYSIS MWF) - ENDOCRINE/METABOLIC Hx Endocrine Disorders: No - HEMATOLOGICAL/ONCOLOGICAL Hx Blood Disorders: Yes (ANEMIA) - INTEGUMENTARY Hx Dermatological Problems: No - MUSCULOSKELETAL/RHEUMATOLOGICAL Hx Musculoskeletal Disorders: No - GASTROINTESTINAL Hx Diverticulitis: Yes - GENITOURINARY/GYNECOLOGICAL Hx Genitourinary Disorders: No - PSYCHIATRIC Hx Psychophysiologic Disorder: No - SURGICAL HISTORY Hx Appendectomy: Yes Hx Tonsillectomy: Yes - ANESTHESIA Hx Anesthesia: Yes Hx Anesthesia Reactions: No Hx Malignant Hyperthermia: No Meds Allergies/Adverse Reactions: Allergies Allergy/AdvReac Type Severity Reaction Status Date / Time No Known Allergies Allergy Verified 12/20/16 12:34 - Medications Medications: Current Medications Acetaminophen (Tylenol 325mg Tab) 650 mg PO Q4 PRN PRN Reason: for temp 100 and above Alprazolam (Xanax) 0.5 mg PO HS [facility] Amlodipine Besylate (Norvasc) 5 mg PO DAILY [facility] Atorvastatin Calcium (Lipitor) 20 mg PO DAILY [facility] Calcitriol (Rocaltrol) 0.25 mcg PO Q48H [facility] Calcium Acetate (Phoslo) 2 mg PO TID [facility] Haloperidol (Haldol) 0.5 mg PO TID [facility] Home Med (B Complex W-C No.20/Folic Acid [Renal Caps Softgel]) 1 cap PO DAILY [facility] Home Med (Mirtazapine [Mirtazapine]) 7.5 mg PO HS [facility] Hydroxyzine HCl (Atarax) 25 mg PO TID [facility] Vancomycin HCl 1 gm/ Sodium (Chloride) 250 mls @ 166.667 mls/hr IVPB ONCE ONE Stop: 12/21/16 15:09 Last Admin: 12/20/16 13:54 Dose: 166.667 mls/hr Labetalol HCl (Trandate) 100 mg PO BID [facility] Lisinopril (Zestril) 5 mg PO DAILY [facility] Results - Vital Signs Recent Vital Signs: Last Vital Signs Temp 99 F 12/20/16 18:39 Pulse 73 12/20/16 18:39 Resp 20 12/20/16 18:39 BP 151/48 H 12/20/16 18:39 Pulse Ox 97 12/20/16 18:39 - Labs Result Diagrams: 12/20/16 13:06 12/20/16 13:06
[2016-12-21] MEDS: Multivitamin Vitamin B Complex (Nephro-Vite) Tab PO SCH (08:26)
--- NOTE | 2016-12-21 08:26 | CON ---
DATE: 12/20/2016 REQUESTING PHYSICIAN: Dr. Bernard. HISTORY OF PRESENT ILLNESS: This patient who is 76 years of age, known to me with chronic kidney dis ease on dialysis, last hemodialysis was when she was in the hospital on 12/14/2016, and since she left, she never showed up in the dialysis center and she came today complaining of fevers, chills, and pat ient has been refusing to go for dialysis, and she has a subclavian catheter for dialysis. She also had surgery for AV fistula which has not been working well, which has been but because the rachel ent refused dialysis, that matter was put on hold until she is agreeable to see the vascular. PAST MEDICAL HISTORY: Multiple admissions related to chronic kidney disease, hyperkalemia, hypertens ion and she has severe skin reaction, dermatitis-like. SOCIAL HISTORY: The patient's son is always trying to get her for dialysis, but she keeps refusing. MEDICATIONS: Have been reviewed. PHYSICAL EXAMINATION: VITAL SIGNS: Blood pressure 151/48, temperature came 101.1, then came down to 99 after given Advil. NECK: Supple. She has a catheter, subclavian. CHEST: Clear. Again, the lungs have no rales or wheezing. HEART: No rubs. ABDOMEN: Soft. EXTREMITIES: No edema. LABORATORY DATA: Showed WBC 11.0, hemoglobin 11.7. Creatinine 4.9, BUN 84, potassium 5.2, CO2 21. IMPRESSION: The patient was admitted with fever, rule out catheter related sepsis, end-stage renal d isease. The patient has been refusing dialysis, uncooperative. PLAN: To remove the dialysis catheter, to give vancomycin, blood culture is pending and to dialyze h er tomorrow morning or as soon as possible before removing the catheter because it is very hard to ge t catheter on this patient, if she is agreeable. Fredis Benedict MD cc: 19 TT: 12/20/2016 21:27:17 Confirmation # [id number] Dictation # [id number] kevin
--- NOTE | 2016-12-21 11:09 | CP.PCM.HP ---
History of Present Illness - History of Present Illness History of Present Illness: The pt is a 76yo female, PMHx of HTN, end stage renal disease, chronic kidney disease, brought to the ED by her son, for evaluation s/p the pt was shaking uncontrollably earlier today. Son reports the pt has not been going to her dialysis appointments and her last dialysis was on 12/14. Pt's son reports noticing a fever, Tmax 100.3 and said he noticed some pus from the pt's portacath placed on pt's left chest. Patient denies any pain. Offers no additional medical complaints. pt is lying comfortably in bed. no new complaints. Present on Admission - Present on Admission Any Indicators Present on Admission: Yes Past Patient History - Infectious Disease Hx of Infectious Diseases: None - Tetanus Immunizations Tetanus Immunization: Unknown - Past Medical History & Family History Past Medical History?: Yes - Past Social History Smoking Status: Never Smoked - CARDIAC Hx Cardiac Disorders: Yes (HTN,HLD) - PULMONARY Hx Respiratory Disorders: No - NEUROLOGICAL Hx Neurological Disorder: Yes (MIGRAINE,ALZHEIMER) - HEENT Hx HEENT Problems: No - RENAL Hx Chronic Kidney Disease: Yes (DIALYSIS MWF) - ENDOCRINE/METABOLIC Hx Endocrine Disorders: No - HEMATOLOGICAL/ONCOLOGICAL Hx Blood Disorders: Yes (ANEMIA) - INTEGUMENTARY Hx Dermatological Problems: No - MUSCULOSKELETAL/RHEUMATOLOGICAL Hx Musculoskeletal Disorders: No - GASTROINTESTINAL Hx Diverticulitis: Yes - GENITOURINARY/GYNECOLOGICAL Hx Genitourinary Disorders: No - PSYCHIATRIC Hx Psychophysiologic Disorder: No - SURGICAL HISTORY Hx Appendectomy: Yes Hx Tonsillectomy: Yes - ANESTHESIA Hx Anesthesia: Yes Hx Anesthesia Reactions: No Hx Malignant Hyperthermia: No Meds Allergies/Adverse Reactions: Allergies Allergy/AdvReac Type Severity Reaction Status Date / Time No Known Allergies Allergy Verified 12/20/16 12:34 Physical Exam - Constitutional Appears: Well - Head Exam Head Exam: NORMAL INSPECTION - Eye Exam Eye Exam: EOMI, Normal appearance Pupil Exam: NORMAL ACCOMODATION - ENT Exam ENT Exam: Mucous Membranes Moist - Respiratory Exam Respiratory Exam: Clear to Auscultation Bilateral, NORMAL BREATHING PATTERN - Cardiovascular Exam Cardiovascular Exam: REGULAR RHYTHM - GI/Abdominal Exam GI & Abdominal Exam: Normal Bowel Sounds - Extremities Exam Extremities exam: Positive for: full ROM, normal inspection Results - Vital Signs Recent Vital Signs: Last Vital Signs Temp 99.8 F H 12/21/16 08:23 Pulse 79 12/21/16 08:23 Resp 20 12/21/16 08:23 BP 190/70 H 12/21/16 08:27 Pulse Ox 97 12/21/16 08:23 - Labs Result Diagrams: 12/20/16 13:06 12/20/16 13:06 Labs: Laboratory Results - last 24 hr 12/21/16 05:37 POC Glucose (mg/dL) 97 Assessment & Plan - Assessment and Plan (Free Text) Assessment: 1. ESRD pt missed mult appointments HD today\ Nephro on consult. will cont to monitr.l 2. Leucocytosis portacath appears infected start vancomycin ID consulted. 3HTN stable cont home meds 4. DVT SCD
--- NOTE | 2016-12-21 11:13 | CP.PCM.PN ---
Subjective - Date & Time of Evaluation Date of Evaluation: 12/21/16 Time of Evaluation: 11:13 - Subjective Subjective: Patient is awake and conscious And cooperated Complaining of weakness itching Objective - Vital Signs/Intake and Output Vital Signs (last 24 hours): Temp Pulse Resp BP Pulse Ox 99.8 F H 79 20 190/70 H 97 12/21/16 08:23 12/21/16 08:23 12/21/16 08:23 12/21/16 08:27 12/21/16 08:23 - Medications Medications: Current Medications Acetaminophen (Tylenol 325mg Tab) 650 mg PO Q4 PRN PRN Reason: for temp 100 and above Acetaminophen (Tylenol 325mg Tab) 650 mg PO Q4 PRN PRN Reason: Pain, Mild (1-3) Alprazolam (Xanax) 0.5 mg PO HS [facility] Last Admin: 12/20/16 22:02 Dose: 0.5 mg Amlodipine Besylate (Norvasc) 10 mg PO DAILY [facility] Atorvastatin Calcium (Lipitor) 20 mg PO DAILY [facility] Last Admin: 12/21/16 08:25 Dose: 20 mg Calcitriol (Rocaltrol) 0.25 mcg PO Q48H [facility] Last Admin: 12/20/16 21:56 Dose: 0.25 mcg Calcium Acetate (Phoslo) 1,334 mg PO TID [facility] Last Admin: 12/21/16 08:25 Dose: 1,334 mg Haloperidol (Haldol) 0.5 mg PO TID [facility] Last Admin: 12/21/16 08:25 Dose: 0.5 mg Hydroxyzine HCl (Atarax) 25 mg PO TID [facility] Last Admin: 12/21/16 08:26 Dose: 25 mg Vancomycin HCl 1 gm/ Sodium (Chloride) 250 mls @ 166.667 mls/hr IVPB ONCE ONE Stop: 12/21/16 15:09 Last Admin: 12/20/16 13:54 Dose: 166.667 mls/hr Vancomycin HCl 1 gm/ Sodium (Chloride) 250 mls @ 166.667 mls/hr IVPB Q12 [facility] Last Admin: 12/21/16 08:27 Dose: 166.667 mls/hr Labetalol HCl (Trandate) 100 mg PO BID [facility] Last Admin: 12/21/16 08:27 Dose: 100 mg Lisinopril (Zestril) 5 mg PO DAILY [facility] Last Admin: 12/21/16 08:25 Dose: 5 mg Mirtazapine (Remeron) 7.5 mg PO [facility] Last Admin: 12/20/16 21:57 Dose: 7.5 mg Vitamin B Complex/Vit C/Folic Acid (Nephro-Valentino) 1 tab PO DAILY [facility] Last Admin: 12/21/16 08:26 Dose: 1 tab - Labs Labs: PT 10.9 Seconds (9.8-13.1) 12/20/16 13:06 INR 1.0 (0.9-1.2) 12/20/16 13:06 APTT 27.1 Seconds (25.6-37.1) 12/20/16 13:06 - Constitutional Appears: No Acute Distress - ENT Exam ENT Exam: Mucous Membranes Moist - Respiratory Exam Respiratory Exam: NORMAL BREATHING PATTERN. absent: Chest Wall Tenderness - Cardiovascular Exam Cardiovascular Exam: REGULAR RHYTHM. absent: Rubs - GI/Abdominal Exam GI & Abdominal Exam: Normal Bowel Sounds - Extremities Exam Extremities Exam: absent: Calf Tenderness - Back Exam Back Exam: absent: CVA tenderness (L), CVA tenderness (R) - Neurological Exam Neurological Exam: Alert Assessment and Plan (1) Infection of central venous catheter exit site Status: Acute (2) Anemia in stage 5 chronic kidney disease Status: Chronic (3) Chronic kidney disease, stage V requiring chronic dialysis Assessment & Plan: Patient not showing up for dialysis she is not cooperating her son is aware Patient admitted because of fever and blood culture to grow Staphylococcus consistent with sepsis Patient receiving dialysis now from the catheter and to be removed in mediately today. Continue vancomycin as per renal dose Patient keep refusing dialysis right seems like agreeable today. Keep monitoring Status: Chronic
--- NOTE | 2016-12-21 18:29 | CP.PCM.CON ---
History of Present Illness - History of Present Illness History of Present Illness: 76yo female, PMHx of HTN, end stage renal disease, chronic kidney disease, brought to the ED by her son, for evaluation s/p the pt was shaking uncontrollably at home [employer]ODIAL [employer]IDE . Son reports the pt has not been going to her dialysis appointments and her last dialysis was on 12/14. Pt's son reports noticing a fever, Tmax 100.3 and said he noticed some pus from the pt's portacath placed on pt's left chest. Patient denies any pain. Offers no additional medical complaints. Review of Systems - Constitutional Constitutional: As Per HPI, Fatigue, Fever, Lethargy, Malaise - EENT Eyes: absent: As Per HPI, Blind Spots, Blurred Vision, Change in Vision, Decreased Night Vision, Diplopia, Discharge, Dry Eye, Exophthalmos, Floaters, Irritation, Itchy Eyes, Loss of Peripheral Vision, Pain, Photophobia, Requires Corrective Lenses, Sees Flashes, Spots in Vision, Tunnel Vision, Other Visual Disturbances, Loss of Vision, Other Ears: absent: As Per HPI, Decreased Hearing, Ear Discharge, Ear Pain, Tinnitus, Abnormal Hearing, Disequilibrium, Dizziness, Other Nose/Mouth/Throat: absent: As Per HPI, Epistaxis, Nasal Congestion, Nasal Discharge, Nasal Obstruction, Nasal Trauma, Nose Pain, Post Nasal Drip, Sinus Pain, Sinus Pressure, Bleeding Gums, Change in Voice, Dental Pain, Dry Mouth, Dysphagia, Halitosis, Hoarsness, Lip Swelling, Mouth Lesions, Mouth Pain, Odynophagia, Sore Throat, Throat Swelling, Tongue Swelling, Facial Pain, Neck Pain, Neck Mass, Other - Breasts Breasts: absent: As Per HPI, Change in Shape, Mass, Pain, Nipple Discharge, Nipple Inversion, Skin Changes, Swelling, Other - Cardiovascular Cardiovascular: absent: As Per HPI, Acrocyanosis, Chest Pain, Chest Pain at Rest , Chest Pain with Activity, Claudication, Diaphoresis, Dyspnea, Dyspnea on Exertion, Edema, Irregular Heart Rhythm, Pain Radiating to Arm/Neck/Jaw, Leg Edema, Leg Ulcers, Lightheadedness, Orthopnea, Palpitations, Paroxysmal Nocturnal Dyspnea, Pedal Edema, Radiating Pain, Rapid Heart Rate, Slow Heart Rate, Syncope, Other - Respiratory Respiratory: absent: As Per HPI, Cough, Dyspnea, Hemoptysis, Dyspnea on Exertion , Wheezing, Snoring, Stridor, Pain on Inspiration, Chest Congestion, Excessive Mucous Production, Change in Mucous Color, Pain with Coughing, Other - Gastrointestinal Gastrointestinal: absent: As Per HPI, Abdominal Pain, Belching, Bloating, Change in Bowel Habits, Change in Stool Character, Coffee Ground Emesis, Constipation, Cramping, Diarrhea, Dyspepsia, Dysphagia, Early Satiety, Excessive Flatus, Fecal Incontinence, Heartburn, Hematemesis, Hematochezia, Loose Stools, Melena, Nausea, Odynophagia, Temesmus, Vomiting, Other - Genitourinary Genitourinary: absent: As Per HPI, Change in Urinary Stream, Difficulty Urinating, Dysuria, Flank Pain, Hematuria, Pyuria, Nocturia, Urinary Incontinence, Urinary Frequency, Urinary Hesitance, Urinary Urgency, Voiding Freq/Small Amts, Freq UTI, Hx Renal/Bladder Calculi, Hx /Renal Surgery, Bladder Distension, Other - Reproductive: Female Reproductive:Female: absent: As Per HPI, Amenorrhea, Amenorrhea/ Control, Currently Menstual, Cycle <21 Days, Cycle >35 Days, Cycle Variable, Menses 1-7 Days, Menses >/= 8 Days, Menses Variable, Cycle > 4 Weeks Between, No Menses for 6 Months, Heavy Menses, Light Menses, Normal Menses, Spotting Between Cycles , S/P Hysterectomy, Menopausal, Post Menopausal, Premenarche, Abnormal Vaginal Bleeding, Dysmenorrhea, Dyspareunia, Genital Lesions, Genital Pruritis, Pelvic Pain, Prolapse Symptoms, Sexual Dysfunction, Vaginal Discharge, Vaginal Dryness , Vaginal Odor, Vaginal Pruritis, Other - Menstruation Menstruation: absent: As Per HPI, Amenorrhea, Amenorrhea/ Control, Currently Menstual, Cycle <21 Days, Cycle >35 Days, Cycle Variable, Menses 1-7 Days, Menses >/= 8 Days, Menses Variable, Cycle > 4 Weeks Between, No Menses for 6 Months, Heavy Menses, Light Menses, Normal Menses, Spotting Between Cycles , S/P Hysterectomy, Menopausal, Post Menopausal, Premenarche, Abnormal Vaginal Bleeding, Dysmenorrhea, Other - Musculoskeletal Musculoskeletal: As Per HPI - Integumentary Integumentary: As Per HPI - Neurological Neurological: absent: As Per HPI, Abnormal Gait, Abnormal Hearing, Abnormal Movements, Abnormal Speech, Behavioral Changes, Burning Sensations, Confusion, Convulsions, Disequilibrium, Dizziness, Numbness, Focal Weakness, Frequent Falls , Headaches, Lack of Coordination, Loss of Vision, Memory Loss, Paresthesias, Radicular Pain, Restless Legs, Sensory Deficit, Syncope, Tingling, Tremor, Vertigo, Weakness, Other Visual Disturbances, Other - Psychiatric Psychiatric: absent: As Per HPI, Abnormal Sleep Pattern, Anhedonia, Anxiety, Auditory Hallucinations, Behavioral Changes, Change in Appetite, Change in Libido, Confusion, Depression, Difficulty Concentrating, Hallucinations, Homicidal Ideation, Hopelessness, Irritability, Memory Loss, Mood Swings, Panic Attacks, Paranoia, Suicidal Ideation, Visual Hallucinations, Tactile Hallucinations, Other - Endocrine Endocrine: absent: As Per HPI, Change in Body Appearance, Change in Libido, Cold Intolorance, Deepening of Voice, Excessive Sweating, Fatigue, Flushing, Heat Intolorance, Increase in Ring/Shoe/Hat Size, Palpitations, Polydipsia, Polyphagia, Polyuria, Other - Hematologic/Lymphatic Hematologic: absent: As Per HPI, Easy Bleeding, Easy Bruising, Lymphadenopathy, Other Past Patient History - Infectious Disease Hx of Infectious Diseases: None - Tetanus Immunizations Tetanus Immunization: Unknown - Past Medical History & Family History Past Medical History?: Yes - Past Social History Smoking Status: Never Smoked - CARDIAC Hx Cardiac Disorders: Yes (HTN,HLD) - PULMONARY Hx Respiratory Disorders: No - NEUROLOGICAL Hx Neurological Disorder: Yes (MIGRAINE,ALZHEIMER) - HEENT Hx HEENT Problems: No - RENAL Hx Chronic Kidney Disease: Yes (DIALYSIS MWF) - ENDOCRINE/METABOLIC Hx Endocrine Disorders: No - HEMATOLOGICAL/ONCOLOGICAL Hx Blood Disorders: Yes (ANEMIA) - INTEGUMENTARY Hx Dermatological Problems: No - MUSCULOSKELETAL/RHEUMATOLOGICAL Hx Musculoskeletal Disorders: No - GASTROINTESTINAL Hx Diverticulitis: Yes - GENITOURINARY/GYNECOLOGICAL Hx Genitourinary Disorders: No - PSYCHIATRIC Hx Psychophysiologic Disorder: No - SURGICAL HISTORY Hx Appendectomy: Yes Hx Tonsillectomy: Yes - ANESTHESIA Hx Anesthesia: Yes Hx Anesthesia Reactions: No Hx Malignant Hyperthermia: No Meds Allergies/Adverse Reactions: Allergies Allergy/AdvReac Type Severity Reaction Status Date / Time No Known Allergies Allergy Verified 12/20/16 12:34 - Medications Medications: Current Medications Acetaminophen (Tylenol 325mg Tab) 650 mg PO Q4 PRN PRN Reason: for temp 100 and above Acetaminophen (Tylenol 325mg Tab) 650 mg PO Q4 PRN PRN Reason: Pain, Mild (1-3) Last Admin: 12/21/16 14:56 Dose: 650 mg Alprazolam (Xanax) 0.5 mg PO HS [facility] Last Admin: 12/20/16 22:02 Dose: 0.5 mg Amlodipine Besylate (Norvasc) 10 mg PO DAILY [facility] Atorvastatin Calcium (Lipitor) 20 mg PO DAILY [facility] Last Admin: 12/21/16 08:25 Dose: 20 mg Calcitriol (Rocaltrol) 0.25 mcg PO Q48H [facility] Last Admin: 12/20/16 21:56 Dose: 0.25 mcg Calcium Acetate (Phoslo) 1,334 mg PO TID [facility] Last Admin: 12/21/16 17:24 Dose: 1,334 mg Haloperidol (Haldol) 0.5 mg PO TID [facility] Last Admin: 12/21/16 17:24 Dose: 0.5 mg Heparin Sodium (Porcine) (Heparin) 5,000 units SC Q12 [facility] PRN Reason: Protocol Last Admin: 12/21/16 12:53 Dose: 5,000 units Hydroxyzine HCl (Atarax) 25 mg PO TID [facility] Last Admin: 12/21/16 17:24 Dose: 25 mg Vancomycin HCl 1 gm/ Sodium (Chloride) 250 mls @ 166.667 mls/hr IVPB Q12 [facility] Last Admin: 12/21/16 08:27 Dose: 166.667 mls/hr Labetalol HCl (Trandate) 100 mg PO BID [facility] Last Admin: 12/21/16 17:26 Dose: 100 mg Lisinopril (Zestril) 5 mg PO DAILY [facility] Last Admin: 12/21/16 08:25 Dose: 5 mg Mirtazapine (Remeron) 7.5 mg PO HS [facility] Last Admin: 12/20/16 21:57 Dose: 7.5 mg Tramadol HCl (Ultram) 50 mg PO Q6 PRN PRN Reason: Pain, moderate (4-7) Last Admin: 12/21/16 11:34 Dose: 50 mg Vitamin B Complex/Vit C/Folic Acid (Nephro-Valentino) 1 tab PO DAILY [facility] Last Admin: 12/21/16 08:26 Dose: 1 tab Physical Exam - Constitutional Appears: Toxic, Cachectic, Chronically Ill - Head Exam Head Exam: ATRAUMATIC, NORMAL INSPECTION, NORMOCEPHALIC - Eye Exam Eye Exam: EOMI, PERRL. absent: Scleral icterus - ENT Exam ENT Exam: Mucous Membranes Dry, Normal External Ear Exam, Normal Oropharynx - Neck Exam Neck exam: Negative for: Lymphadenopathy, Thyromegaly - Respiratory Exam Respiratory Exam: Decreased Breath Sounds, Rhonchi - Cardiovascular Exam Cardiovascular Exam: REGULAR RHYTHM, +S1, +S2 - GI/Abdominal Exam GI & Abdominal Exam: Diminished Bowel Sounds, Soft. absent: Tenderness - Rectal Exam Rectal Exam: Deferred - Exam Exam: NORMAL INSPECTION - Extremities Exam Extremities exam: Negative for: pedal edema - Back Exam Back exam: absent: CVA tenderness (L), CVA tenderness (R) - Neurological Exam Neurological exam: Alert, CN II-XII Intact, Oriented x3, Reflexes Normal - Psychiatric Exam Psychiatric exam: Depressed, Flat Affect - Skin Skin Exam: Dry Results - Vital Signs Recent Vital Signs: Last Vital Signs Temp 97.8 F 12/21/16 16:23 Pulse 66 12/21/16 16:23 Resp 20 12/21/16 16:23 BP 133/70 12/21/16 17:26 Pulse Ox 98 12/21/16 16:23 - Labs Result Diagrams: 12/20/16 13:06 12/20/16 13:06 Labs: Laboratory Results - last 24 hr 12/21/16 12/21/16 12/21/16 05:37 10:52 13:30 POC Glucose (mg/dL) 97 110 Phosphorus 4.5 Assessment & Plan (1) Infection of central venous catheter exit site Status: Acute (2) Chronic kidney disease, stage V requiring chronic dialysis Status: Chronic (3) Acute renal failure (ARF) Status: Acute - Assessment and Plan (Free Text) Assessment: exit site infection with bacteremia has poor access may be amenable to rx with iv rx? cont rx for now
[2016-12-22 06:47] LABS: HEMATOCRIT 32.2 % (34.0-47.0); MEAN CELL VOLUME 85.1 fl (81.0-99.0); MEAN CORPUSCULAR HEMOGLOBIN 28.4 pg (27.0-31.0); MEAN CORPUSCULAR HGB CONC 33.4 g/dL (33.0-37.0); RED CELL DISTRIBUTION WIDTH 14.9 % (11.5-14.5); WHITE BLOOD COUNT 5.8 K/uL (4.8-10.8)
[2016-12-22 07:03] LABS: CALCIUM 8.7 mg/dL (8.4-10.2); POTASSIUM 4.2 MMOL/L (3.6-5.0)
--- NOTE | 2016-12-22 07:17 | CARD ---
APPROVED REPORT EKG Measurement Heart [id number] CO [id number] <Conclusion> Normal sinus rhythm Right atrial enlargement Borderline ECG
[2016-12-22] MEDS: Multivitamin Vitamin B Complex (Nephro-Vite) Tab PO SCH (08:37)
--- NOTE | 2016-12-22 08:52 | CP.PCM.PN ---
Subjective - Date & Time of Evaluation Date of Evaluation: 12/22/16 Time of Evaluation: 08:51 - Subjective Subjective: pt comfrotable in bed, no distress. no complaitns. no f/c, n/v/d. bw noted. id consult and c/s noted. pt wishes to be dnr/dni. blood and catheter c/s noted. on . catheter to be removed today. next dialysis sched for sunday. pt had hospice eval today but not willing to sign on today. Objective - Vital Signs/Intake and Output Vital Signs (last 24 hours): Temp Pulse Resp BP Pulse Ox 98.4 F 70 18 180/66 H 96 12/22/16 08:14 12/22/16 08:14 12/22/16 08:14 12/22/16 08:40 12/22/16 08:14 - Medications Medications: Current Medications Acetaminophen (Tylenol 325mg Tab) 650 mg PO Q4 PRN PRN Reason: for temp 100 and above Acetaminophen (Tylenol 325mg Tab) 650 mg PO Q4 PRN PRN Reason: Pain, Mild (1-3) Last Admin: 12/21/16 14:56 Dose: 650 mg Alprazolam (Xanax) 0.5 mg PO HS [facility] Last Admin: 12/21/16 21:11 Dose: 0.5 mg Amlodipine Besylate (Norvasc) 10 mg PO DAILY [facility] Last Admin: 12/22/16 08:39 Dose: 10 mg Atorvastatin Calcium (Lipitor) 20 mg PO DAILY [facility] Last Admin: 12/22/16 08:38 Dose: 20 mg Calcitriol (Rocaltrol) 0.25 mcg PO Q48H [facility] Last Admin: 12/20/16 21:56 Dose: 0.25 mcg Calcium Acetate (Phoslo) 1,334 mg PO TID [facility] Last Admin: 12/22/16 08:37 Dose: 1,334 mg Haloperidol (Haldol) 0.5 mg PO TID [facility] Last Admin: 12/22/16 08:37 Dose: 0.5 mg Heparin Sodium (Porcine) (Heparin) 5,000 units SC Q12@0100,1300 [facility] PRN Reason: Protocol Last Admin: 12/22/16 00:04 Dose: 5,000 units Hydroxyzine HCl (Atarax) 25 mg PO TID [facility] Last Admin: 12/22/16 08:37 Dose: 25 mg Vancomycin HCl 1 gm/ Sodium (Chloride) 250 mls @ 166.667 mls/hr IVPB Q12 [facility] Last Admin: 12/22/16 08:43 Dose: 166.667 mls/hr Labetalol HCl (Trandate) 100 mg PO BID [facility] Last Admin: 12/22/16 08:39 Dose: 100 mg Lisinopril (Zestril) 5 mg PO DAILY [facility] Last Admin: 12/22/16 08:40 Dose: 5 mg Mirtazapine (Remeron) 7.5 mg PO HS [facility] Last Admin: 12/21/16 21:11 Dose: 7.5 mg Tramadol HCl (Ultram) 50 mg PO Q6 PRN PRN Reason: Pain, moderate (4-7) Last Admin: 12/21/16 11:34 Dose: 50 mg Vitamin B Complex/Vit C/Folic Acid (Nephro-Valentino) 1 tab PO DAILY [facility] Last Admin: 12/22/16 08:37 Dose: 1 tab - Labs Labs: 12/22/16 05:20 12/22/16 05:20 PT 10.9 Seconds (9.8-13.1) 12/20/16 13:06 INR 1.0 (0.9-1.2) 12/20/16 13:06 APTT 27.1 Seconds (25.6-37.1) 12/20/16 13:06 - Constitutional Appears: Well, Non-toxic, No Acute Distress - Head Exam Head Exam: ATRAUMATIC, NORMAL INSPECTION, NORMOCEPHALIC - Eye Exam Eye Exam: EOMI, Normal appearance, PERRL Pupil Exam: NORMAL ACCOMODATION, PERRL - ENT Exam ENT Exam: Mucous Membranes Moist, Normal Exam - Neck Exam Neck Exam: Full ROM, Normal Inspection. absent: Lymphadenopathy - Respiratory Exam Respiratory Exam: Clear to Ausculation Bilateral, NORMAL BREATHING PATTERN - Cardiovascular Exam Cardiovascular Exam: REGULAR RHYTHM, RRR, +S1, +S2. absent: Murmur - GI/Abdominal Exam GI & Abdominal Exam: Soft, Normal Bowel Sounds. absent: Tenderness - Extremities Exam Extremities Exam: Full ROM, Normal Capillary Refill, Normal Inspection. absent : Joint Swelling, Pedal Edema - Back Exam Back Exam: NORMAL INSPECTION - Neurological Exam Neurological Exam: Alert, Awake, CN II-XII Intact, Normal Gait, Oriented x3 - Psychiatric Exam Psychiatric exam: Normal Affect, Normal Mood - Skin Skin Exam: Dry, Intact, Normal Color, Warm Assessment and Plan (1) Infection of central venous catheter exit site Assessment & Plan: vanco ID f/u c/s catheter removed today Status: Acute (2) Chronic kidney disease, stage V requiring chronic dialysis Assessment & Plan: nephro sw for new outpt center Status: Chronic (3) DVT prophylaxis Assessment & Plan: scd and aehose hold anticoag for new catheter insertion Status: Acute
--- NOTE | 2016-12-22 14:04 | CP.PCM.PN ---
Subjective - Date & Time of Evaluation Date of Evaluation: 12/22/16 Time of Evaluation: 09:00 - Subjective Subjective: blood c/s noted MSSA in blood from exit site infection can sometimes be treated medically pt scheduled for OR by dr Benedict would consider echo if not done and repeat blood c/s ok to switch to nafcillin Objective - Vital Signs/Intake and Output Vital Signs (last 24 hours): Temp Pulse Resp BP Pulse Ox 98.4 F 70 18 180/66 H 96 12/22/16 08:14 12/22/16 08:14 12/22/16 08:14 12/22/16 08:40 12/22/16 08:14 - Medications Medications: Current Medications Acetaminophen (Tylenol 325mg Tab) 650 mg PO Q4 PRN PRN Reason: for temp 100 and above Acetaminophen (Tylenol 325mg Tab) 650 mg PO Q4 PRN PRN Reason: Pain, Mild (1-3) Last Admin: 12/21/16 14:56 Dose: 650 mg Alprazolam (Xanax) 0.5 mg PO HS [facility] Last Admin: 12/21/16 21:11 Dose: 0.5 mg Amlodipine Besylate (Norvasc) 10 mg PO DAILY [facility] Last Admin: 12/22/16 08:39 Dose: 10 mg Atorvastatin Calcium (Lipitor) 20 mg PO DAILY [facility] Last Admin: 12/22/16 08:38 Dose: 20 mg Calcitriol (Rocaltrol) 0.25 mcg PO Q48H [facility] Last Admin: 12/20/16 21:56 Dose: 0.25 mcg Calcium Acetate (Phoslo) 1,334 mg PO TID [facility] Last Admin: 12/22/16 13:22 Dose: Not Given Haloperidol (Haldol) 0.5 mg PO TID [facility] Last Admin: 12/22/16 13:22 Dose: Not Given Heparin Sodium (Porcine) (Heparin) 5,000 units SC Q12@0100,1300 [facility] PRN Reason: Protocol Last Admin: 12/22/16 00:04 Dose: 5,000 units Hydroxyzine HCl (Atarax) 25 mg PO TID [facility] Last Admin: 12/22/16 13:21 Dose: Not Given Vancomycin HCl 1 gm/ Sodium (Chloride) 250 mls @ 166.667 mls/hr IVPB Q12 [facility] Last Admin: 12/22/16 08:43 Dose: 166.667 mls/hr Labetalol HCl (Trandate) 100 mg PO BID [facility] Last Admin: 12/22/16 08:39 Dose: 100 mg Lisinopril (Zestril) 5 mg PO DAILY [facility] Last Admin: 12/22/16 08:40 Dose: 5 mg Mirtazapine (Remeron) 7.5 mg PO HS [facility] Last Admin: 12/21/16 21:11 Dose: 7.5 mg Tramadol HCl (Ultram) 50 mg PO Q6 PRN PRN Reason: Pain, moderate (4-7) Last Admin: 12/21/16 11:34 Dose: 50 mg Vitamin B Complex/Vit C/Folic Acid (Nephro-Valentino) 1 tab PO DAILY [facility] Last Admin: 12/22/16 08:37 Dose: 1 tab - Labs Labs: 12/22/16 05:20 12/22/16 05:20 PT 10.9 Seconds (9.8-13.1) 12/20/16 13:06 INR 1.0 (0.9-1.2) 12/20/16 13:06 APTT 27.1 Seconds (25.6-37.1) 12/20/16 13:06 - Constitutional Appears: Non-toxic, Chronically Ill - Head Exam Head Exam: NORMOCEPHALIC - Eye Exam Eye Exam: PERRL. absent: Scleral icterus - ENT Exam ENT Exam: Mucous Membranes Dry - Neck Exam Neck Exam: absent: Lymphadenopathy - Respiratory Exam Respiratory Exam: Decreased Breath Sounds, Rhonchi - Cardiovascular Exam Cardiovascular Exam: REGULAR RHYTHM, +S1, +S2 - GI/Abdominal Exam GI & Abdominal Exam: Distended, Soft - Rectal Exam Rectal Exam: Deferred Assessment and Plan (1) Infection of central venous catheter exit site Status: Acute (2) Chronic kidney disease, stage V requiring chronic dialysis Status: Chronic (3) Acute renal failure (ARF) Status: Acute - Assessment and Plan (Free Text) Assessment: blood c/s noted MSSA in blood from exit site infection can sometimes be treated medically pt scheduled for OR by dr Benedict would consider echo if not done and repeat blood c/s ok to switch to nafcillin
[2016-12-22] MEDS ORDERED: Lidocaine 1% Inj (20ml) ONE (14:58)
--- NOTE | 2016-12-22 15:13 | PCM.SURG1 ---
Surgeon's Initial Post Op Note - Surgeon's Notes Surgeon: Saqib Luo Baggage Clerk: None Type of Anesthesia: Local Pre-Operative Diagnosis: Catheter infection, ESRD Operative Findings: Left IJV HD catheter. Post-Operative Diagnosis: Catheter infection, ESRD Operation Performed: HD catheter removal. Catheter tip sent for culture. Specimen/Specimens Removed: HD catheter. Estimated Blood Loss: EBL {In ML}: 1 Blood Products Given: N/A Drains Used: No Drains Post-Op Condition: Fair Date of Surgery/Procedure: 12/22/16 Time of Surgery/Procedure: 15:10
[2016-12-22] MEDS ORDERED: Vancomycin 500 mg (Oral/Rectal USE) PO SCH (16:00)
[2016-12-23 08:09] LABS: BASO # 0.1 K/uL (0.0-0.2); BASO % 1.3 % (0.0-2.0); EOS # 0.5 K/uL (0.0-0.7); EOS % 10.2 % (0.0-4.0); HEMATOCRIT 31.9 % (34.0-47.0); LYMPH # 1.4 K/uL (1.0-4.3); MEAN CORPUSCULAR HEMOGLOBIN 28.5 pg (27.0-31.0); MEAN CORPUSCULAR HGB CONC 33.5 g/dL (33.0-37.0); MEAN PLATELET VOLUME 10.6 fl (7.2-11.7); MONO # 0.9 K/uL (0.0-0.8); MONO % 18.6 % (0.0-10.0); NEUT # 1.9 K/uL (1.8-7.0); NEUT % 39.9 % (50.0-75.0); WHITE BLOOD COUNT 4.8 K/uL (4.8-10.8)
[2016-12-23 08:26] LABS: BILIRUBIN,TOTAL 0.4 mg/dl (0.2-1.3); CALCIUM 8.8 mg/dL (8.4-10.2); POTASSIUM 4.1 MMOL/L (3.6-5.0); TOTAL PROTEIN 6.1 G/DL (6.3-8.2)
[2016-12-23] MEDS: Multivitamin Vitamin B Complex (Nephro-Vite) Tab PO SCH (08:29)
[2016-12-23 08:30] LABS: ALB/GLOB RATIO 1.3 (1.0-2.1)
--- NOTE | 2016-12-23 09:41 | CP.PCM.PN ---
Subjective - Date & Time of Evaluation Date of Evaluation: 12/23/16 Time of Evaluation: 09:40 - Subjective Subjective: pt in nod istress/offers no complaints. nof/c, n/v/d. asked pt about status going forward, she is not sure if she wants ot cont dialysis or not. Objective - Vital Signs/Intake and Output Vital Signs (last 24 hours): Temp Pulse Resp BP Pulse Ox 98.5 F 65 20 162/61 H 97 12/23/16 08:16 12/23/16 08:31 12/23/16 08:16 12/23/16 08:31 12/23/16 08:16 - Medications Medications: Current Medications Acetaminophen (Tylenol 325mg Tab) 650 mg PO Q4 PRN PRN Reason: for temp 100 and above Acetaminophen (Tylenol 325mg Tab) 650 mg PO Q4 PRN PRN Reason: Pain, Mild (1-3) Last Admin: 12/23/16 08:40 Dose: 650 mg Alprazolam (Xanax) 0.5 mg PO HS [facility] Last Admin: 12/22/16 22:01 Dose: 0.5 mg Amlodipine Besylate (Norvasc) 10 mg PO DAILY [facility] Last Admin: 12/23/16 08:31 Dose: 10 mg Atorvastatin Calcium (Lipitor) 20 mg PO DAILY [facility] Last Admin: 12/23/16 08:29 Dose: 20 mg Calcitriol (Rocaltrol) 0.25 mcg PO Q48H [facility] Last Admin: 12/22/16 20:04 Dose: 0.25 mcg Calcium Acetate (Phoslo) 1,334 mg PO TID [facility] Last Admin: 12/23/16 08:29 Dose: 1,334 mg Haloperidol (Haldol) 0.5 mg PO TID [facility] Last Admin: 12/23/16 08:29 Dose: 0.5 mg Heparin Sodium (Porcine) (Heparin) 5,000 units SC Q12@0600,1800 [facility] PRN Reason: Protocol Last Admin: 12/23/16 06:49 Dose: 5,000 units Hydroxyzine HCl (Atarax) 25 mg PO TID [facility] Last Admin: 12/23/16 08:29 Dose: 25 mg Vancomycin HCl 750 mg/ Sodium (Chloride) 250 mls @ 166.667 mls/hr IVPB MWF [facility] Stop: 01/19/17 10:29 Labetalol HCl (Trandate) 100 mg PO BID [facility] Last Admin: 12/23/16 08:30 Dose: 100 mg Lisinopril (Zestril) 5 mg PO DAILY [facility] Last Admin: 12/23/16 08:30 Dose: 5 mg Mirtazapine (Remeron) 7.5 mg PO HS [facility] Last Admin: 12/22/16 22:01 Dose: 7.5 mg Tramadol HCl (Ultram) 50 mg PO Q6 PRN PRN Reason: Pain, moderate (4-7) Last Admin: 12/21/16 11:34 Dose: 50 mg Vitamin B Complex/Vit C/Folic Acid (Nephro-Valentino) 1 tab PO DAILY [facility] Last Admin: 12/23/16 08:29 Dose: 1 tab - Labs Labs: 12/23/16 06:00 12/23/16 06:00 PT 10.9 Seconds (9.8-13.1) 12/20/16 13:06 INR 1.0 (0.9-1.2) 12/20/16 13:06 APTT 27.1 Seconds (25.6-37.1) 12/20/16 13:06 - Constitutional Appears: Well, Non-toxic, No Acute Distress - Head Exam Head Exam: ATRAUMATIC, NORMAL INSPECTION, NORMOCEPHALIC - Eye Exam Eye Exam: EOMI, Normal appearance, PERRL Pupil Exam: NORMAL ACCOMODATION, PERRL - ENT Exam ENT Exam: Mucous Membranes Moist, Normal Exam - Neck Exam Neck Exam: Full ROM, Normal Inspection. absent: Lymphadenopathy - Respiratory Exam Respiratory Exam: Clear to Ausculation Bilateral, NORMAL BREATHING PATTERN - Cardiovascular Exam Cardiovascular Exam: REGULAR RHYTHM, RRR, +S1, +S2. absent: Murmur - GI/Abdominal Exam GI & Abdominal Exam: Soft, Normal Bowel Sounds. absent: Tenderness - Extremities Exam Extremities Exam: Full ROM, Normal Capillary Refill, Normal Inspection. absent : Joint Swelling, Pedal Edema - Back Exam Back Exam: NORMAL INSPECTION - Neurological Exam Neurological Exam: Alert, Awake, CN II-XII Intact, Normal Gait, Oriented x3 - Psychiatric Exam Psychiatric exam: Normal Affect, Normal Mood - Skin Skin Exam: Dry, Intact, Normal Color, Warm Assessment and Plan (1) Infection of central venous catheter exit site Status: Acute (2) Chronic kidney disease, stage V requiring chronic dialysis Status: Chronic (3) DVT prophylaxis Status: Acute - Assessment and Plan (Free Text) Assessment: (1) Infection of central venous catheter exit site Assessment & Plan: vanco ID f/u c/s catheter removed and sent for c/s-pending Status: Acute (2) Chronic kidney disease, stage V requiring chronic dialysis Assessment & Plan: nephro sw for new outpt center Status: Chronic (3) DVT prophylaxis Assessment & Plan: scd and aehose hold anticoag for new catheter insertion Status: Acute
--- NOTE | 2016-12-23 15:39 | CP.PCM.PN ---
Subjective - Date & Time of Evaluation Date of Evaluation: 12/23/16 Time of Evaluation: 03:00 - Subjective Subjective: Feels better. No distress noted Objective - Vital Signs/Intake and Output Vital Signs (last 24 hours): Temp Pulse Resp BP Pulse Ox 98.5 F 65 20 162/61 H 97 12/23/16 08:16 12/23/16 08:31 12/23/16 08:16 12/23/16 08:31 12/23/16 08:16 - Medications Medications: Current Medications Acetaminophen (Tylenol 325mg Tab) 650 mg PO Q4 PRN PRN Reason: for temp 100 and above Acetaminophen (Tylenol 325mg Tab) 650 mg PO Q4 PRN PRN Reason: Pain, Mild (1-3) Last Admin: 12/23/16 08:40 Dose: 650 mg Alprazolam (Xanax) 0.5 mg PO HS [facility] Last Admin: 12/22/16 22:01 Dose: 0.5 mg Amlodipine Besylate (Norvasc) 10 mg PO DAILY [facility] Last Admin: 12/23/16 08:31 Dose: 10 mg Atorvastatin Calcium (Lipitor) 20 mg PO DAILY [facility] Last Admin: 12/23/16 08:29 Dose: 20 mg Calcitriol (Rocaltrol) 0.25 mcg PO Q48H [facility] Last Admin: 12/22/16 20:04 Dose: 0.25 mcg Calcium Acetate (Phoslo) 1,334 mg PO TID [facility] Last Admin: 12/23/16 12:40 Dose: 1,334 mg Haloperidol (Haldol) 0.5 mg PO TID [facility] Last Admin: 12/23/16 12:39 Dose: 0.5 mg Heparin Sodium (Porcine) (Heparin) 5,000 units SC Q12@0600,1800 [facility] PRN Reason: Protocol Last Admin: 12/23/16 06:49 Dose: 5,000 units Hydroxyzine HCl (Atarax) 25 mg PO TID [facility] Last Admin: 12/23/16 12:39 Dose: 25 mg Vancomycin HCl 750 mg/ Sodium (Chloride) 250 mls @ 166.667 mls/hr IVPB MWF [facility] Stop: 01/19/17 10:29 Labetalol HCl (Trandate) 100 mg PO BID [facility] Lisinopril (Zestril) 5 mg PO DAILY [facility] Last Admin: 12/23/16 08:30 Dose: 5 mg Mirtazapine (Remeron) 7.5 mg PO HS [facility] Last Admin: 12/22/16 22:01 Dose: 7.5 mg Tramadol HCl (Ultram) 50 mg PO Q6 PRN PRN Reason: Pain, moderate (4-7) Last Admin: 12/21/16 11:34 Dose: 50 mg Vitamin B Complex/Vit C/Folic Acid (Nephro-Valentino) 1 tab PO DAILY [facility] Last Admin: 12/23/16 08:29 Dose: 1 tab - Labs Labs: 12/23/16 06:00 12/23/16 06:00 PT 10.9 Seconds (9.8-13.1) 12/20/16 13:06 INR 1.0 (0.9-1.2) 12/20/16 13:06 APTT 27.1 Seconds (25.6-37.1) 12/20/16 13:06 - Respiratory Exam Additional comments: Lungs clear - Cardiovascular Exam Cardiovascular Exam: REGULAR RHYTHM - Extremities Exam Additional comments: No edema Assessment and Plan - Assessment and Plan (Free Text) Assessment: ESRD was on HD but now refusing dialysis Staph. aureus bacteremia. sec to infected dialysis catheter. Catheter was removed. On vanco HTN Plan: Labs stable so far BP is satisfactory. Continue to observe
[2016-12-24] MEDS: Multivitamin Vitamin B Complex (Nephro-Vite) Tab PO SCH (08:04)
--- NOTE | 2016-12-24 13:22 | CP.PCM.PN ---
Subjective - Date & Time of Evaluation Date of Evaluation: 12/24/16 Time of Evaluation: 09:00 - Subjective Subjective: REPEAT CULTURES ORDERED Objective - Vital Signs/Intake and Output Vital Signs (last 24 hours): Temp Pulse Resp BP Pulse Ox 98.8 F 65 20 180/67 H 97 12/24/16 07:22 12/24/16 07:22 12/24/16 07:22 12/24/16 07:22 12/24/16 07:22 - Medications Medications: Current Medications Acetaminophen (Tylenol 325mg Tab) 650 mg PO Q4 PRN PRN Reason: for temp 100 and above Acetaminophen (Tylenol 325mg Tab) 650 mg PO Q4 PRN PRN Reason: Pain, Mild (1-3) Last Admin: 12/24/16 08:10 Dose: 650 mg Alprazolam (Xanax) 0.5 mg PO HS [facility] Last Admin: 12/23/16 21:57 Dose: 0.5 mg Amlodipine Besylate (Norvasc) 10 mg PO DAILY [facility] Last Admin: 12/24/16 08:05 Dose: 10 mg Atorvastatin Calcium (Lipitor) 20 mg PO DAILY [facility] Last Admin: 12/24/16 08:04 Dose: 20 mg Calcitriol (Rocaltrol) 0.25 mcg PO Q48H [facility] Last Admin: 12/22/16 20:04 Dose: 0.25 mcg Calcium Acetate (Phoslo) 1,334 mg PO TID [facility] Last Admin: 12/24/16 12:03 Dose: 1,334 mg Haloperidol (Haldol) 0.5 mg PO TID [facility] Last Admin: 12/24/16 12:03 Dose: 0.5 mg Heparin Sodium (Porcine) (Heparin) 5,000 units SC Q12@0600,1800 [facility] PRN Reason: Protocol Last Admin: 12/24/16 05:17 Dose: 5,000 units Hydroxyzine HCl (Atarax) 25 mg PO TID [facility] Last Admin: 12/24/16 12:03 Dose: 25 mg Vancomycin HCl 750 mg/ Sodium (Chloride) 250 mls @ 166.667 mls/hr IVPB MWF [facility] Stop: 01/19/17 10:29 Labetalol HCl (Trandate) 100 mg PO BID [facility] Last Admin: 12/24/16 08:04 Dose: 100 mg Lisinopril (Zestril) 5 mg PO DAILY [facility] Last Admin: 12/24/16 08:05 Dose: 5 mg Mirtazapine (Remeron) 7.5 mg PO HS [facility] Last Admin: 12/23/16 21:57 Dose: 7.5 mg Tramadol HCl (Ultram) 50 mg PO Q6 PRN PRN Reason: Pain, moderate (4-7) Last Admin: 12/21/16 11:34 Dose: 50 mg Vitamin B Complex/Vit C/Folic Acid (Nephro-Valentino) 1 tab PO DAILY [facility] Last Admin: 12/24/16 08:04 Dose: 1 tab - Labs Labs: 12/23/16 06:00 12/23/16 06:00 PT 10.9 Seconds (9.8-13.1) 12/20/16 13:06 INR 1.0 (0.9-1.2) 12/20/16 13:06 APTT 27.1 Seconds (25.6-37.1) 12/20/16 13:06 - Constitutional Appears: Chronically Ill - Eye Exam Eye Exam: absent: Scleral icterus - ENT Exam ENT Exam: Mucous Membranes Dry - Respiratory Exam Respiratory Exam: Decreased Breath Sounds, Clear to Ausculation Bilateral - Cardiovascular Exam Cardiovascular Exam: REGULAR RHYTHM, +S1, +S2 Assessment and Plan (1) Infection of central venous catheter exit site Status: Acute (2) Chronic kidney disease, stage V requiring chronic dialysis Status: Chronic (3) Acute renal failure (ARF) Status: Acute - Assessment and Plan (Free Text) Assessment: FOR PERMACATH PLACEMENT IN AM
--- NOTE | 2016-12-24 13:47 | CP.PCM.PN ---
Subjective - Date & Time of Evaluation Date of Evaluation: 12/24/16 Time of Evaluation: 13:47 - Subjective Subjective: pedro wellm, no complaints. case d/ c w/ son vandana at bedside. for dailysis cath insertion tomorrow pt is semi willing for dialysis advised family meeting to decide future care of this pt. Objective - Vital Signs/Intake and Output Vital Signs (last 24 hours): Temp Pulse Resp BP Pulse Ox 98.8 F 65 20 180/67 H 97 12/24/16 07:22 12/24/16 07:22 12/24/16 07:22 12/24/16 07:22 12/24/16 07:22 - Medications Medications: Current Medications Acetaminophen (Tylenol 325mg Tab) 650 mg PO Q4 PRN PRN Reason: for temp 100 and above Acetaminophen (Tylenol 325mg Tab) 650 mg PO Q4 PRN PRN Reason: Pain, Mild (1-3) Last Admin: 12/24/16 08:10 Dose: 650 mg Alprazolam (Xanax) 0.5 mg PO HS [facility] Last Admin: 12/23/16 21:57 Dose: 0.5 mg Amlodipine Besylate (Norvasc) 10 mg PO DAILY [facility] Last Admin: 12/24/16 08:05 Dose: 10 mg Atorvastatin Calcium (Lipitor) 20 mg PO DAILY [facility] Last Admin: 12/24/16 08:04 Dose: 20 mg Calcitriol (Rocaltrol) 0.25 mcg PO Q48H [facility] Last Admin: 12/22/16 20:04 Dose: 0.25 mcg Calcium Acetate (Phoslo) 1,334 mg PO TID [facility] Last Admin: 12/24/16 12:03 Dose: 1,334 mg Haloperidol (Haldol) 0.5 mg PO TID [facility] Last Admin: 12/24/16 12:03 Dose: 0.5 mg Heparin Sodium (Porcine) (Heparin) 5,000 units SC Q12@0600,1800 [facility] PRN Reason: Protocol Last Admin: 12/24/16 05:17 Dose: 5,000 units Hydroxyzine HCl (Atarax) 25 mg PO TID [facility] Last Admin: 12/24/16 12:03 Dose: 25 mg Vancomycin HCl 750 mg/ Sodium (Chloride) 250 mls @ 166.667 mls/hr IVPB MWF [facility] Stop: 01/19/17 10:29 Labetalol HCl (Trandate) 100 mg PO BID [facility] Last Admin: 12/24/16 08:04 Dose: 100 mg Lisinopril (Zestril) 5 mg PO DAILY [facility] Last Admin: 12/24/16 08:05 Dose: 5 mg Mirtazapine (Remeron) 7.5 mg PO HS [facility] Last Admin: 12/23/16 21:57 Dose: 7.5 mg Tramadol HCl (Ultram) 50 mg PO Q6 PRN PRN Reason: Pain, moderate (4-7) Last Admin: 12/21/16 11:34 Dose: 50 mg Vitamin B Complex/Vit C/Folic Acid (Nephro-Valentino) 1 tab PO DAILY [facility] Last Admin: 12/24/16 08:04 Dose: 1 tab - Labs Labs: 12/23/16 06:00 12/23/16 06:00 PT 10.9 Seconds (9.8-13.1) 12/20/16 13:06 INR 1.0 (0.9-1.2) 12/20/16 13:06 APTT 27.1 Seconds (25.6-37.1) 12/20/16 13:06 - Constitutional Appears: Well, Non-toxic, No Acute Distress - Head Exam Head Exam: ATRAUMATIC, NORMAL INSPECTION, NORMOCEPHALIC - Eye Exam Eye Exam: EOMI, Normal appearance, PERRL Pupil Exam: NORMAL ACCOMODATION, PERRL - ENT Exam ENT Exam: Mucous Membranes Moist, Normal Exam - Neck Exam Neck Exam: Full ROM, Normal Inspection. absent: Lymphadenopathy - Respiratory Exam Respiratory Exam: Clear to Ausculation Bilateral, NORMAL BREATHING PATTERN - Cardiovascular Exam Cardiovascular Exam: REGULAR RHYTHM, RRR, +S1, +S2. absent: Murmur - GI/Abdominal Exam GI & Abdominal Exam: Soft, Normal Bowel Sounds. absent: Tenderness - Extremities Exam Extremities Exam: Full ROM, Normal Capillary Refill, Normal Inspection. absent : Joint Swelling, Pedal Edema - Back Exam Back Exam: NORMAL INSPECTION - Neurological Exam Neurological Exam: Alert, Awake, CN II-XII Intact, Normal Gait, Oriented x3 - Psychiatric Exam Psychiatric exam: Normal Affect, Normal Mood - Skin Skin Exam: Dry, Intact, Normal Color, Warm Additional comments: slight erythema to left port site Assessment and Plan (1) Infection of central venous catheter exit site Status: Acute (2) Chronic kidney disease, stage V requiring chronic dialysis Status: Chronic (3) DVT prophylaxis Status: Acute - Assessment and Plan (Free Text) Assessment: (1) Infection of central venous catheter exit site Assessment & Plan: vanco ID f/u c/s catheter removed and sent for c/s-pending Status: Acute (2) Chronic kidney disease, stage V requiring chronic dialysis Assessment & Plan: nephro sw for new outpt center Status: Chronic (3) DVT prophylaxis Assessment & Plan: scd and aehose hold anticoag for new catheter insertion Status: Acute for new cath tomorrow, med cleared for procedure, then up to sw for dialysis placement
--- NOTE | 2016-12-24 15:00 | CP.PCM.PN ---
Subjective - Date & Time of Evaluation Date of Evaluation: 12/24/16 Time of Evaluation: 02:30 - Subjective Subjective: Appears comfortable in bed Objective - Vital Signs/Intake and Output Vital Signs (last 24 hours): Temp Pulse Resp BP Pulse Ox 98.8 F 65 20 180/67 H 97 12/24/16 07:22 12/24/16 07:22 12/24/16 07:22 12/24/16 07:22 12/24/16 07:22 - Medications Medications: Current Medications Acetaminophen (Tylenol 325mg Tab) 650 mg PO Q4 PRN PRN Reason: for temp 100 and above Acetaminophen (Tylenol 325mg Tab) 650 mg PO Q4 PRN PRN Reason: Pain, Mild (1-3) Last Admin: 12/24/16 08:10 Dose: 650 mg Alprazolam (Xanax) 0.5 mg PO HS [facility] Last Admin: 12/23/16 21:57 Dose: 0.5 mg Amlodipine Besylate (Norvasc) 10 mg PO DAILY [facility] Last Admin: 12/24/16 08:05 Dose: 10 mg Atorvastatin Calcium (Lipitor) 20 mg PO DAILY [facility] Last Admin: 12/24/16 08:04 Dose: 20 mg Calcitriol (Rocaltrol) 0.25 mcg PO Q48H [facility] Last Admin: 12/22/16 20:04 Dose: 0.25 mcg Calcium Acetate (Phoslo) 1,334 mg PO TID [facility] Last Admin: 12/24/16 12:03 Dose: 1,334 mg Haloperidol (Haldol) 0.5 mg PO TID [facility] Last Admin: 12/24/16 12:03 Dose: 0.5 mg Heparin Sodium (Porcine) (Heparin) 5,000 units SC Q12@0600,1800 [facility] PRN Reason: Protocol Last Admin: 12/24/16 05:17 Dose: 5,000 units Hydroxyzine HCl (Atarax) 25 mg PO TID [facility] Last Admin: 12/24/16 12:03 Dose: 25 mg Vancomycin HCl 750 mg/ Sodium (Chloride) 250 mls @ 166.667 mls/hr IVPB MWF [facility] Stop: 01/19/17 10:29 Labetalol HCl (Trandate) 100 mg PO BID [facility] Last Admin: 12/24/16 08:04 Dose: 100 mg Lisinopril (Zestril) 5 mg PO DAILY [facility] Last Admin: 12/24/16 08:05 Dose: 5 mg Mirtazapine (Remeron) 7.5 mg PO HS [facility] Last Admin: 12/23/16 21:57 Dose: 7.5 mg Tramadol HCl (Ultram) 50 mg PO Q6 PRN PRN Reason: Pain, moderate (4-7) Last Admin: 12/21/16 11:34 Dose: 50 mg Vitamin B Complex/Vit C/Folic Acid (Nephro-Valentino) 1 tab PO DAILY [facility] Last Admin: 12/24/16 08:04 Dose: 1 tab - Labs Labs: 12/23/16 06:00 12/23/16 06:00 PT 10.9 Seconds (9.8-13.1) 12/20/16 13:06 INR 1.0 (0.9-1.2) 12/20/16 13:06 APTT 27.1 Seconds (25.6-37.1) 12/20/16 13:06 - Respiratory Exam Additional comments: Lungs clear - Cardiovascular Exam Cardiovascular Exam: REGULAR RHYTHM - Extremities Exam Additional comments: No edema Assessment and Plan - Assessment and Plan (Free Text) Assessment: ESRD Sta3ph bacteremia sec to infected dialysis catheter HTN Plan: Labs are stable so far Eating better Continue to monitor
[2016-12-25 07:25] LABS: BASO # 0.1 K/uL (0.0-0.2); BASO % 1.8 % (0.0-2.0); EOS # 0.5 K/uL (0.0-0.7); EOS % 10.3 % (0.0-4.0); LYMPH # 1.5 K/uL (1.0-4.3); LYMPH % 34.4 % (20.0-40.0); MEAN CELL VOLUME 84.3 fl (81.0-99.0); MEAN CORPUSCULAR HEMOGLOBIN 28.6 pg (27.0-31.0); MEAN PLATELET VOLUME 10.6 fl (7.2-11.7); MONO # 0.7 K/uL (0.0-0.8); MONO % 16.7 % (0.0-10.0); NEUT # 1.6 K/uL (1.8-7.0); NEUT % 36.8 % (50.0-75.0); NRBC % 0.1 % (0.0-0.0); WHITE BLOOD COUNT 4.4 K/uL (4.8-10.8)
--- NOTE | 2016-12-25 07:37 | CP.PCM.PN ---
Subjective - Date & Time of Evaluation Date of Evaluation: 12/25/16 Time of Evaluation: 07:36 - Subjective Subjective: doing wellm c/o mild headache, no FAST s/s. for dialysis access tody and then dialysis. can be dc from this providers stand point afte rthat. ring to work on outpt dialysis center Objective - Vital Signs/Intake and Output Vital Signs (last 24 hours): Temp Pulse Resp BP Pulse Ox 98.2 F 65 18 152/58 H 97 12/25/16 07:27 12/25/16 07:27 12/25/16 07:27 12/25/16 07:27 12/25/16 07:27 - Medications Medications: Current Medications Acetaminophen (Tylenol 325mg Tab) 650 mg PO Q4 PRN PRN Reason: for temp 100 and above Acetaminophen (Tylenol 325mg Tab) 650 mg PO Q4 PRN PRN Reason: Pain, Mild (1-3) Last Admin: 12/24/16 23:53 Dose: 650 mg Alprazolam (Xanax) 0.5 mg PO HS [facility] Last Admin: 12/24/16 21:14 Dose: 0.5 mg Amlodipine Besylate (Norvasc) 10 mg PO DAILY [facility] Last Admin: 12/24/16 08:05 Dose: 10 mg Atorvastatin Calcium (Lipitor) 20 mg PO DAILY [facility] Last Admin: 12/24/16 08:04 Dose: 20 mg Calcitriol (Rocaltrol) 0.25 mcg PO Q48H [facility] Last Admin: 12/24/16 21:13 Dose: 0.25 mcg Calcium Acetate (Phoslo) 1,334 mg PO TID [facility] Last Admin: 12/24/16 16:53 Dose: 1,334 mg Haloperidol (Haldol) 0.5 mg PO TID [facility] Last Admin: 12/24/16 16:53 Dose: 0.5 mg Heparin Sodium (Porcine) (Heparin) 5,000 units SC Q12@0600,1800 [facility] PRN Reason: Protocol Last Admin: 12/25/16 05:44 Dose: Not Given Hydroxyzine HCl (Atarax) 25 mg PO TID [facility] Last Admin: 12/24/16 16:53 Dose: 25 mg Vancomycin HCl 750 mg/ Sodium (Chloride) 250 mls @ 166.667 mls/hr IVPB MWF [facility] Stop: 01/19/17 10:29 Labetalol HCl (Trandate) 100 mg PO BID [facility] Last Admin: 12/24/16 16:54 Dose: 100 mg Lisinopril (Zestril) 5 mg PO DAILY [facility] Last Admin: 12/24/16 08:05 Dose: 5 mg Mirtazapine (Remeron) 7.5 mg PO HS [facility] Last Admin: 12/24/16 21:14 Dose: 7.5 mg Tramadol HCl (Ultram) 50 mg PO Q6 PRN PRN Reason: Pain, moderate (4-7) Last Admin: 12/24/16 21:17 Dose: 50 mg Vitamin B Complex/Vit C/Folic Acid (Nephro-Valentino) 1 tab PO DAILY [facility] Last Admin: 12/24/16 08:04 Dose: 1 tab - Labs Labs: 12/25/16 06:30 12/23/16 06:00 PT 10.9 Seconds (9.8-13.1) 12/20/16 13:06 INR 1.0 (0.9-1.2) 12/20/16 13:06 APTT 27.1 Seconds (25.6-37.1) 12/20/16 13:06 - Constitutional Appears: Well, Non-toxic, No Acute Distress - Head Exam Head Exam: ATRAUMATIC, NORMAL INSPECTION, NORMOCEPHALIC - Eye Exam Eye Exam: EOMI, Normal appearance, PERRL Pupil Exam: NORMAL ACCOMODATION, PERRL - ENT Exam ENT Exam: Mucous Membranes Moist, Normal Exam - Neck Exam Neck Exam: Full ROM, Normal Inspection. absent: Lymphadenopathy - Respiratory Exam Respiratory Exam: Clear to Ausculation Bilateral, NORMAL BREATHING PATTERN - Cardiovascular Exam Cardiovascular Exam: REGULAR RHYTHM, RRR, +S1, +S2. absent: Murmur - GI/Abdominal Exam GI & Abdominal Exam: Soft, Normal Bowel Sounds. absent: Tenderness - Extremities Exam Extremities Exam: Full ROM, Normal Capillary Refill, Normal Inspection. absent : Joint Swelling, Pedal Edema - Back Exam Back Exam: NORMAL INSPECTION - Neurological Exam Neurological Exam: Alert, Awake, CN II-XII Intact, Normal Gait, Oriented x3 - Psychiatric Exam Psychiatric exam: Normal Affect, Normal Mood - Skin Skin Exam: Dry, Intact, Normal Color, Warm Assessment and Plan (1) Infection of central venous catheter exit site Assessment & Plan: for new access cont vanc, cont ID Status: Acute (2) Chronic kidney disease, stage V requiring chronic dialysis Assessment & Plan: cont esrd, new access today, nephro Status: Chronic (3) DVT prophylaxis Assessment & Plan: scd and aehose hold anticoag Status: Acute
[2016-12-25 08:15] LABS: ALB/GLOB RATIO 1.4 (1.0-2.1); BILIRUBIN,TOTAL 0.3 mg/dl (0.2-1.3); CALCIUM 8.8 mg/dL (8.4-10.2); TOTAL PROTEIN 6.2 G/DL (6.3-8.2)
[2016-12-25] MEDS: Multivitamin Vitamin B Complex (Nephro-Vite) Tab PO SCH (08:52)
[2016-12-25] MEDS ORDERED: Vancomycin 1 g Inj IVPB SCH (09:00)
--- NOTE | 2016-12-25 09:25 | VASCULAR ---
PROCEDURE: Date of procedure: 12/22/2016 Procedure: 1 Removal of left IJ tunneled hemodialysis catheter Medications: 6 cc 2 percent lidocaine HISTORY: Postive blood cultures, ESRD TECHNIQUE: Following informed consent and procedure time-out, the patient was placed supine on the interventional table. The existing left IJ tunneled hemodialysis catheter surrounding skin were prepped and draped in the usual sterile fashion. Spot fluoroscopic image showed a left IJV HD catheter in place. After the tunnel tract was anesthetized with 2 percent lidocaine, traction was applied to the existing catheter. The catheter was removed. Light pressure was applied to the venotomy site and tunnel tract until hemostasis was achieved. A dressing was applied. IMPRESSION: Removal of left IJ tunneled hemodialysis catheter.
--- NOTE | 2016-12-25 11:46 | CP.PCM.PN ---
Subjective - Date & Time of Evaluation Date of Evaluation: 12/25/16 Time of Evaluation: 11:43 - Subjective Subjective: Afebrile Vital signs stable Patient to go for permacath now and hemodialysis to follow Objective - Vital Signs/Intake and Output Vital Signs (last 24 hours): Temp Pulse Resp BP Pulse Ox 98.2 F 65 18 152/58 H 97 12/25/16 07:27 12/25/16 07:27 12/25/16 07:27 12/25/16 07:27 12/25/16 07:27 - Medications Medications: Current Medications Acetaminophen (Tylenol 325mg Tab) 650 mg PO Q4 PRN PRN Reason: for temp 100 and above Acetaminophen (Tylenol 325mg Tab) 650 mg PO Q4 PRN PRN Reason: Pain, Mild (1-3) Last Admin: 12/24/16 23:53 Dose: 650 mg Alprazolam (Xanax) 0.5 mg PO HS [facility] Last Admin: 12/24/16 21:14 Dose: 0.5 mg Amlodipine Besylate (Norvasc) 10 mg PO DAILY [facility] Last Admin: 12/25/16 08:52 Dose: Not Given Atorvastatin Calcium (Lipitor) 20 mg PO DAILY [facility] Last Admin: 12/25/16 08:52 Dose: Not Given Calcitriol (Rocaltrol) 0.25 mcg PO Q48H [facility] Last Admin: 12/24/16 21:13 Dose: 0.25 mcg Calcium Acetate (Phoslo) 1,334 mg PO TID [facility] Last Admin: 12/25/16 08:52 Dose: Not Given Haloperidol (Haldol) 0.5 mg PO TID [facility] Last Admin: 12/25/16 08:52 Dose: Not Given Heparin Sodium (Porcine) (Heparin) 5,000 units SC Q12@0600,1800 [facility] PRN Reason: Protocol Last Admin: 12/25/16 05:44 Dose: Not Given Hydroxyzine HCl (Atarax) 25 mg PO TID [facility] Last Admin: 12/25/16 08:52 Dose: Not Given Vancomycin HCl 750 mg/ Sodium (Chloride) 250 mls @ 166.667 mls/hr IVPB MWF [facility] Stop: 01/19/17 10:29 Last Admin: 12/25/16 08:09 Dose: 166.667 mls/hr Labetalol HCl (Trandate) 100 mg PO BID [facility] Last Admin: 12/25/16 10:40 Dose: 100 mg Lisinopril (Zestril) 5 mg PO DAILY [facility] Last Admin: 12/25/16 08:52 Dose: Not Given Mirtazapine (Remeron) 7.5 mg PO HS [facility] Last Admin: 12/24/16 21:14 Dose: 7.5 mg Tramadol HCl (Ultram) 50 mg PO Q6 PRN PRN Reason: Pain, moderate (4-7) Last Admin: 12/24/16 21:17 Dose: 50 mg Vitamin B Complex/Vit C/Folic Acid (Nephro-Valentino) 1 tab PO DAILY [facility] Last Admin: 12/25/16 08:52 Dose: Not Given - Labs Labs: 12/25/16 06:30 12/25/16 06:30 PT 10.9 Seconds (9.8-13.1) 12/20/16 13:06 INR 1.0 (0.9-1.2) 12/20/16 13:06 APTT 27.1 Seconds (25.6-37.1) 12/20/16 13:06 - Constitutional Appears: No Acute Distress - ENT Exam ENT Exam: Mucous Membranes Moist - Respiratory Exam Respiratory Exam: NORMAL BREATHING PATTERN. absent: Chest Wall Tenderness - Cardiovascular Exam Cardiovascular Exam: REGULAR RHYTHM. absent: JVD, Rubs - GI/Abdominal Exam GI & Abdominal Exam: Normal Bowel Sounds. absent: Guarding - Extremities Exam Extremities Exam: absent: Calf Tenderness - Back Exam Back Exam: absent: CVA tenderness (L), CVA tenderness (R) - Neurological Exam Neurological Exam: Alert Assessment and Plan (1) Infection of central venous catheter exit site Status: Acute (2) Anemia in stage 5 chronic kidney disease Status: Chronic (3) Chronic kidney disease, stage V requiring chronic dialysis Assessment & Plan: Patient was admitted with sepsis related to catheter. The catheter has been removed on Sunday and permacath to be inserted today patient to have dialysis to follow order was given Infiltration about 1500 mL Potassium bath 2 mEq Patient need to twice a week dialysis no need for 3 times a week at the present Continue intravenous vancomycin on dialysis Status: Chronic
[2016-12-25] MEDS ORDERED: Midazolam 2 MG/2 ML VIAL ONE (12:20)
[2016-12-25] MEDS ORDERED: Lidocaine 1% Inj (20ml) ONE (12:35)
--- NOTE | 2016-12-25 13:17 | PCM.SURG1 ---
Surgeon's Initial Post Op Note - Surgeon's Notes Surgeon: Emery Reyna MD Fence Installer Foreman: NONE Type of Anesthesia: IV Sedation Pre-Operative Diagnosis: Renal failure Operative Findings: Patent right IJV Post-Operative Diagnosis: Renal failure Operation Performed: HD catheter placement right IJV. Specimen/Specimens Removed: NONE Estimated Blood Loss: EBL {In ML}: 5 Blood Products Given: N/A Drains Used: No Drains Post-Op Condition: Fair Date of Surgery/Procedure: 12/25/16 Time of Surgery/Procedure: 13:15
[2016-12-26 00:35] VITALS: RESP 20
[2016-12-26 07:54] VITALS: BP 170/68; TEMP 98.7; O2SAT 98
[2016-12-26] MEDS: Multivitamin Vitamin B Complex (Nephro-Vite) Tab PO SCH (08:18)
[2016-12-26 08:21] VITALS: PULSE 62
--- NOTE | 2016-12-26 11:42 | CP.PCM.DIS ---
Provider - Provider Date of Admission: 12/20/16 15:19 Attending physician: Enid Bernard MD Time Spent in preparation of Discharge (in minutes): 15 Diagnosis - Discharge Diagnosis (1) Infection of central venous catheter exit site Status: Acute (2) Chronic kidney disease, stage V requiring chronic dialysis Status: Chronic (3) DVT prophylaxis Status: Acute Hospital Course - Lab Results Lab Results: Micro Results 12/25/16 06:30 Blood-Venous Blood Culture - Preliminary NO GROWTH AFTER 24 HOURS 12/22/16 Unknown Catheter Tip Catheter Tip Culture - Final Staphylococcus Aureus Most Recent Lab Values WBC 4.4 K/uL (4.8-10.8) L 12/25/16 06:30 RBC 3.68 Mil/uL (3.80-5.20) L 12/25/16 06:30 Hgb 10.5 g/dL (12.0-16.0) L 12/25/16 06:30 Hct 31.0 % (34.0-47.0) L 12/25/16 06:30 MCV 84.3 fl (81.0-99.0) 12/25/16 06:30 MCH 28.6 pg (27.0-31.0) 12/25/16 06:30 MCHC 34.0 g/dL (33.0-37.0) 12/25/16 06:30 RDW 15.0 % (11.5-14.5) H 12/25/16 06:30 Plt Count 115 K/uL (130-400) L D 12/25/16 06:30 MPV 10.6 fl (7.2-11.7) 12/25/16 06:30 Neut % (Auto) 36.8 % (50.0-75.0) L 12/25/16 06:30 Lymph % (Auto) 34.4 % (20.0-40.0) 12/25/16 06:30 [place] % (Auto) 16.7 % (0.0-10.0) H 12/25/16 06:30 Eos % (Auto) 10.3 % (0.0-4.0) H 12/25/16 06:30 Baso % (Auto) 1.8 % (0.0-2.0) 12/25/16 06:30 Neut # 1.6 K/uL (1.8-7.0) L 12/25/16 06:30 Lymph # 1.5 K/uL (1.0-4.3) 12/25/16 06:30 [place] # 0.7 K/uL (0.0-0.8) 12/25/16 06:30 Eos # 0.5 K/uL (0.0-0.7) 12/25/16 06:30 Baso # 0.1 K/uL (0.0-0.2) 12/25/16 06:30 Neutrophils % (Manual) 84 % (42-75) H 12/20/16 13:06 Lymphocytes % (Manual) 8 % (20-50) L 12/20/16 13:06 Reactive Lymphs % 1 % (0-0) H 12/20/16 13:06 Monocytes % (Manual) 7 % (0-10) 12/20/16 13:06 Platelet Estimate Decreased (NORMAL) L 12/20/16 13:06 Hypochromasia (manual) Slight 12/20/16 13:06 Anisocytosis (manual) Slight 12/20/16 13:06 Tear Drop Cells Slight 12/20/16 13:06 Ovalocytes Slight 12/20/16 13:06 PT 10.9 Seconds (9.8-13.1) 12/20/16 13:06 INR 1.0 (0.9-1.2) 12/20/16 13:06 APTT 27.1 Seconds (25.6-37.1) 12/20/16 13:06 pCO2 32 mm/Hg (35-45) L 12/20/16 15:06 pO2 66 mm/Hg (80-100) L 12/20/16 15:06 HCO3 23.6 mmol/L (21-28) 12/20/16 15:06 ABG pH 7.44 (7.35-7.45) 12/20/16 15:06 ABG Total CO2 22.7 mmol/L (22-28) 12/20/16 15:06 ABG O2 Saturation 98.6 % (95-98) H 12/20/16 15:06 ABG Base Excess -1.6 mmol/L (-2.0-3.0) 12/20/16 15:06 Nacho Test Yes 12/20/16 15:06 ABG Potassium 4.8 mmol/L (3.6-5.2) 12/20/16 15:06 A-a O2 Difference 44.0 mm/Hg 12/20/16 15:06 Sodium 133.0 mmol/L (132-148) 12/20/16 15:06 Chloride 104.0 mmol/L (98-107) 12/20/16 15:06 Glucose 115 mg/dL (65-105) H 12/20/16 15:06 Lactate 0.8 mmol/L (0.7-2.1) 12/20/16 15:06 FiO2 21.0 % 12/20/16 15:06 Sodium 138 mmol/l (132-148) 12/25/16 06:30 Potassium 5.0 MMOL/L (3.6-5.0) 12/25/16 06:30 Chloride 102 mmol/L (98-107) 12/25/16 06:30 Carbon Dioxide 26 mmol/L (22-30) 12/25/16 06:30 Anion Gap 15 (10-20) 12/25/16 06:30 BUN 49 mg/dl (7-17) H 12/25/16 06:30 Creatinine 4.2 mg/dL (0.7-1.2) H 12/25/16 06:30 Est GFR ( Amer) 12 12/25/16 06:30 Est GFR (Non-Af Amer) 10 12/25/16 06:30 POC Glucose (mg/dL) 110 mg/dL (65-110) 12/21/16 10:52 Random Glucose 76 mg/dL (65-105) 12/25/16 06:30 Calcium 8.8 mg/dL (8.4-10.2) 12/25/16 06:30 Phosphorus 4.5 mg/dl (2.5-4.5) 12/21/16 13:30 Total Bilirubin 0.3 mg/dl (0.2-1.3) 12/25/16 06:30 AST 31 U/L (14-36) 12/25/16 06:30 ALT 31 U/L (9-52) 12/25/16 06:30 Alkaline Phosphatase 66 U/L (38-126) 12/25/16 06:30 Troponin I 0.0580 ng/mL (0.00-0.120) 12/20/16 13:06 Total Protein 6.2 G/DL (6.3-8.2) L 12/25/16 06:30 Albumin 3.6 g/dL (3.5-5.0) 12/25/16 06:30 Globulin 2.6 gm/dL (2.2-3.9) 12/25/16 06:30 Albumin/Globulin Ratio 1.4 (1.0-2.1) 12/25/16 06:30 PTH Intact Whole Molec 58 pg/mL (14-64) 12/21/16 13:30 Arterial Blood Potassium 4.8 mmol/L (3.6-5.2) 12/20/16 15:06 Discharge Exam - Head Exam Head Exam: ATRAUMATIC, NORMAL INSPECTION, NORMOCEPHALIC - Eye Exam Eye Exam: EOMI, Normal appearance, PERRL Pupil Exam: NORMAL ACCOMODATION, PERRL - Respiratory Exam Respiratory Exam: Clear to PA & Lateral, NORMAL BREATHING PATTERN, UNREMARKABLE - Cardiovascular Exam Cardiovascular Exam: REGULAR RHYTHM, RRR, +S1, +S2 - GI/Abdominal Exam GI & Abdominal Exam: Normal Bowel Sounds, Soft, Unremarkable - Extremities Exam Extremities exam: full ROM, normal capillary refill, normal inspection, pedal pulses present - Back Exam Back exam: NORMAL INSPECTION - Neurological Exam Neurological exam: Alert, CN II-XII Intact, Normal Gait, Oriented x3, Reflexes Normal - Psychiatric Exam Psychiatric exam: Normal Affect, Normal Mood - Skin Skin Exam: Dry, Intact, Normal Color, Warm Discharge Plan - Discharge Medications Prescriptions: Vancomycin/0.9 % Sod Chloride [Vanco 500 mg/100 ml-0.9% NaCl] 500 mg IV QOTHERDAY #12 froz.piggy - Follow Up Plan Condition: GUARDED Disposition: HOME/ ROUTINE Instructions: Chronic Kidney Disease (DC), Hemodialysis (DC), Dialysis Diet (DC ) Additional Instructions: final dx-sepsis r/t dialysis cath, esrdhd, noncomplaince Dialysis on Sunday and Sunday. Vancomycin during dialysis. Follow up with as an outpatient. doing well, no compalints/distres sno f/c, n/v/d. bw nmtoed nephro noted. for outpdialysis, m/f
--- NOTE | 2016-12-26 12:09 | VASCULAR ---
PROCEDURE: Date of procedure: 12/25/2016 Procedure: 1. Placement of right IJ tunneled hemodialysis catheter, CPT 83667 Medications: 1 percent lidocaine, IV sedation and physiologic monitoring performed by the anesthesiologist. Fluorotime: 19.3 seconds Radiation: 1.73 mGy EBL: 5 ml HISTORY: Renal failure requiring hemodialysis TECHNIQUE: Following informed consent and procedure time-out, the patient was placed supine on the interventional table and the skin was marked . A limited ultrasound patient's right neck showed a patent compressible right internal jugular vein. Under direct ultrasound guidance, the right internal jugular vein was accessed with micropuncture technique and a guidewire was advanced under fluoroscopic guidance into the superior vena cava. An image documenting ultrasound guidance for vascular access was permanently saved. A 19 centimeter cuff to tip hemodialysis catheter was then tunneled under the skin and hold the venotomy site. The venotomy was then serially dilated to accommodate the peel-away sheath. The hemodialysis catheter was then advanced through a peel-away sheath. The catheter is positioned with tip in the superior vena cava confirm with fluoroscopic image. The catheter was tested and has adequate blood flow for hemodialysis. The catheter was flushed and locked with heparin per specified amount. The catheter secured to the skin with a 0 silk suture. IMPRESSION: Placement of right tunneled [id number] cm cuff-to-tip catheter The catheter tip is confirmed with spot radiograph and is in the superior vena cava. The catheter is functional and ready for use.
[2016-12-26] MEDS ORDERED: ceFAZolin 2 GM in Sodium Chloride 0.9% 100 ML IVPB ONE (12:16)
--- NOTE | 2016-12-26 13:24 | CP.PCM.PN ---
Subjective - Date & Time of Evaluation Date of Evaluation: 12/26/16 Time of Evaluation: 13:22 - Subjective Subjective: Patient eating her lunch sitting up in bed Appetite is good Tolerated hemodialysis well yesterday Physical exam chest no rales Heart no rubs Abdomen soft Extremity no edema Impression and plan Sepsis related to catheter. The catheter has been changed with the new catheter yesterday repeat blood culture is negative Patient is going home with outpatient dialysis twice a week with vancomycin intravenously as outpatient Objective - Vital Signs/Intake and Output Vital Signs (last 24 hours): Temp Pulse Resp BP Pulse Ox 98.7 F 62 20 170/68 H 98 12/26/16 07:53 12/26/16 08:20 12/26/16 07:53 12/26/16 08:20 12/26/16 07:53 - Medications Medications: Current Medications Acetaminophen (Tylenol 325mg Tab) 650 mg PO Q4 PRN PRN Reason: for temp 100 and above Last Admin: 12/26/16 05:59 Dose: 650 mg Acetaminophen (Tylenol 325mg Tab) 650 mg PO Q4 PRN PRN Reason: Pain, Mild (1-3) Last Admin: 12/25/16 21:16 Dose: 650 mg Alprazolam (Xanax) 0.5 mg PO HS [facility] Last Admin: 12/25/16 21:17 Dose: 0.5 mg Amlodipine Besylate (Norvasc) 10 mg PO DAILY [facility] Last Admin: 12/26/16 08:19 Dose: 10 mg Atorvastatin Calcium (Lipitor) 20 mg PO DAILY [facility] Last Admin: 12/26/16 08:21 Dose: 20 mg Calcitriol (Rocaltrol) 0.25 mcg PO Q48H [facility] Last Admin: 12/24/16 21:13 Dose: 0.25 mcg Calcium Acetate (Phoslo) 1,334 mg PO TID [facility] Last Admin: 12/26/16 12:57 Dose: 1,334 mg Haloperidol (Haldol) 0.5 mg PO TID [facility] Last Admin: 12/26/16 12:57 Dose: 0.5 mg Heparin Sodium (Porcine) (Heparin) 5,000 units SC Q12@0600,1800 [facility] PRN Reason: Protocol Last Admin: 12/26/16 05:50 Dose: 5,000 units Hydroxyzine HCl (Atarax) 25 mg PO TID [facility] Last Admin: 12/26/16 12:58 Dose: 25 mg Vancomycin HCl 750 mg/ Sodium (Chloride) 250 mls @ 166.667 mls/hr IVPB MWF [facility] Stop: 01/19/17 10:29 Last Admin: 12/25/16 08:09 Dose: 166.667 mls/hr Labetalol HCl (Trandate) 100 mg PO BID [facility] Last Admin: 12/26/16 08:20 Dose: 100 mg Lisinopril (Zestril) 5 mg PO DAILY [facility] Last Admin: 12/26/16 08:18 Dose: 5 mg Mirtazapine (Remeron) 7.5 mg PO HS [facility] Last Admin: 12/25/16 21:17 Dose: 7.5 mg Tramadol HCl (Ultram) 50 mg PO Q6 PRN PRN Reason: Pain, moderate (4-7) Last Admin: 12/24/16 21:17 Dose: 50 mg Vitamin B Complex/Vit C/Folic Acid (Nephro-Valentino) 1 tab PO DAILY [facility] Last Admin: 12/26/16 08:18 Dose: 1 tab - Labs Labs: 12/25/16 06:30 12/25/16 06:30 PT 10.9 Seconds (9.8-13.1) 12/20/16 13:06 INR 1.0 (0.9-1.2) 12/20/16 13:06 APTT 27.1 Seconds (25.6-37.1) 12/20/16 13:06 Assessment and Plan (1) Infection of central venous catheter exit site Status: Acute (2) Anemia in stage 5 chronic kidney disease Status: Chronic (3) Chronic kidney disease, stage V requiring chronic dialysis Status: Chronic
== END 2016-12-26 15:30 | disposition home or self-care (01) | DRG 314 ==
LOC: H.ER 12:33 → H.ERHOLD 15:19 → H.MEDSURG1 18:27
PROVIDERS: ADMIT Family Medicine; ATTEND Family Medicine
PROC: 05PYX3Z Removal of Infusion Device from Upper Vein, External Approach (ICD-10-PCS; 2016-12-22)
PROC: 5A1D00Z (ICD-10-PCS; 2016-12-25)
PROC: 05HM33Z Insertion of Infusion Device into Right Internal Jugular Vein, Percutaneous Approach (ICD-10-PCS; principal; 2016-12-25 12:30)
DX: T82.7XXA Infection and inflammatory reaction due to other cardiac and vascular devices, implants and grafts, initial encounter (principal); A41.01 Sepsis due to Methicillin susceptible Staphylococcus aureus; N18.6 End stage renal disease; N17.9 Acute kidney failure, unspecified; I12.0 Hypertensive chronic kidney disease with stage 5 chronic kidney disease or end stage renal disease; G30.9 Alzheimer's disease, unspecified; E78.00 Pure hypercholesterolemia, unspecified; E78.5 Hyperlipidemia, unspecified; Z66 Do not resuscitate; Z99.2 Dependence on renal dialysis; Z91.15 Patient's noncompliance with renal dialysis; D63.1 Anemia in chronic kidney disease

== ENCOUNTER 2017-01-02 08:16 | Observation (INO) | payer MEDICARE ==
[2017-01-02 08:16] VITALS: BMI 21.6
[2017-01-02 09:47] LABS: BASO # 0.2 K/uL (0.0-0.2); BASO % 2.3 % (0.0-2.0); EOS # 0.4 K/uL (0.0-0.7); EOS % 6.4 % (0.0-4.0); HEMATOCRIT 30.3 % (34.0-47.0); LYMPH # 1.5 K/uL (1.0-4.3); LYMPH % 21.9 % (20.0-40.0); MEAN CELL VOLUME 86.7 fl (81.0-99.0); MEAN CORPUSCULAR HEMOGLOBIN 28.2 pg (27.0-31.0); MEAN CORPUSCULAR HGB CONC 32.6 g/dL (33.0-37.0); MEAN PLATELET VOLUME 9.8 fl (7.2-11.7); MONO # 0.7 K/uL (0.0-0.8); MONO % 10.7 % (0.0-10.0); NEUT % 58.7 % (50.0-75.0); WHITE BLOOD COUNT 6.8 K/uL (4.8-10.8)
[2017-01-02 09:58] LABS: CALCIUM 9.1 mg/dL (8.4-10.2)
--- NOTE | 2017-01-02 10:09 | RAD ---
PROCEDURE: CHEST RADIOGRAPH, 1 VIEW HISTORY: swelling COMPARISON: 12/20/2016. FINDINGS: The right-sided central venous catheter terminates in the SVC. LUNGS: The lungs are clear. PLEURA: No pneumothorax or pleural fluid seen. CARDIOVASCULAR: The heart is enlarged. Atherosclerotic aortic arch calcifications are present. . OSSEOUS STRUCTURES: No significant abnormalities. VISUALIZED UPPER ABDOMEN: Normal. OTHER FINDINGS: Retrocardiac opacity likely represents hiatal hernia. IMPRESSION: No acute findings.
--- NOTE | 2017-01-02 10:11 | ED PDOC ---
HPI: General Adult Time Seen by Provider: 01/02/17 08:52 Chief Complaint (Nursing): Weakness/Neurological Deficit History Per: Patient History/Exam Limitations: no limitations Onset/Duration Of Symptoms: Days (2) Have you had recent travel within the past 21 days to any of the following countries: [place], [place], [place] or [place]?: No Current Symptoms Are (Timing): Still Present Severity: Mild Pain Scale Rating Of: 0 Additional History Per: Patient Additional Complaint(s): Pt co facial swelling for 2 days. Pt denies redness or pain. NO body swelling. NO dyspnea. Pt is on dialysis. She has last one on Sunday but missed one on Sunday. ESRD on HD [facility] Past Medical History Vital Signs: Last Vital Signs Temp 97 F L 01/02/17 08:34 Pulse 74 01/02/17 08:34 Resp 18 01/02/17 08:34 BP 139/90 01/02/17 08:34 Pulse Ox 96 01/02/17 10:33 - Medical History PMH: Alzheimer's Disease, Anemia, Diverticulitis, HTN, Hypercholesterolemia, Kidney Stones, Migraine, End Stage Renal Disease, Chronic Kidney Disease ( DIALYSIS MWF) Denies: HIV - Surgical History Surgical History: Appendectomy, Tonsillectomy - Family History Family History: States: Unknown Family Hx, Hypertension - Immunization History Hx Tetanus Toxoid Vaccination: No Hx Influenza Vaccination: No Hx Pneumococcal Vaccination: No - Home Medications Home Medications: Ambulatory Orders Medication Instructions Recorded Atorvastatin [Lipitor] 20 mg PO DAILY 08/16/16 Calcitriol [Rocaltrol] 0.25 mcg PO Q48H 08/16/16 Calcium Acetate [Phoslo] 2 cap PO TID 08/16/16 Donepezil [Aricept] 10 mg PO DAILY 08/16/16 Labetalol [Trandate] 100 mg PO BID 08/16/16 Lisinopril [Zestril] 5 mg PO DAILY 08/16/16 amLODIPine [Norvasc] 5 mg PO DAILY 08/16/16 hydrALAZINE [Apresoline] 25 mg PO BID 08/16/16 Alprazolam [Xanax] 0.5 mg PO HS 11/04/16 B Complex W-C No.20/Folic Acid 1 cap PO DAILY 11/04/16 [Renal Caps Softgel] Mirtazapine 7.5 mg PO HS 11/04/16 hydrOXYzine HCl [Atarax] 25 mg PO TID 11/04/16 Haloperidol [Haldol] 0.5 mg PO TID 12/13/16 Acetaminophen [Tylenol 325mg tab] 650 mg PO Q4 PRN tab 12/26/16 Vancomycin/0.9 % Sod Chloride 500 mg IV QOTHERDAY #12 froz.piggy 12/26/16 [Vanco 500 mg/100 ml-0.9% NaCl] - Allergies Allergies/Adverse Reactions: Allergies Allergy/AdvReac Type Severity Reaction Status Date / Time No Known Allergies Allergy Verified 01/02/17 08:34 - Laboratory Results Result Diagrams: 01/02/17 09:38 01/02/17 09:38 - ECG O2 Sat by Pulse Oximetry: 96
[2017-01-02] MEDS ORDERED: Insulin Regular 100 units/ml IV STA (11:02)
[2017-01-02] MEDS ORDERED: Dextrose 50% SYRINGE Inj (50 ml) IVP ONE (11:03)
[2017-01-02] MEDS ORDERED: Albuterol 0.083% Inhal Sol (2.5 mg/3 mL) UD INH ONE (11:03)
[2017-01-02] MEDS ORDERED: Sod Polystyrene Sulf 15 gm/60 ml Oral Susp PO ONE (11:04)
--- NOTE | 2017-01-02 17:28 | CARD ---
APPROVED REPORT EKG Measurement Heart [id number] <Conclusion> Normal sinus rhythm Normal ECG
--- NOTE | 2017-01-02 22:46 | CP.PCM.CON ---
History of Present Illness - History of Present Illness History of Present Illness: pt. came to ER because she missed and did not go for HD sunday came with high K she not compliance ,keep missing HD and uncoopertive PMH esrd ,HTN multiple admission Review of Systems - Constitutional Constitutional: As Per HPI, Anorexia - Cardiovascular Cardiovascular: Dyspnea on Exertion. absent: Chest Pain, Edema - Respiratory Respiratory: absent: Cough, Dyspnea - Gastrointestinal Gastrointestinal: absent: Abdominal Pain - Genitourinary Genitourinary: Nocturia - Musculoskeletal Musculoskeletal: Muscle Weakness - Neurological Neurological: As Per HPI - Psychiatric Psychiatric: As Per HPI Past Patient History - Infectious Disease Hx of Infectious Diseases: None - Tetanus Immunizations Tetanus Immunization: Unknown - Past Medical History & Family History Past Medical History?: Yes - Past Social History Smoking Status: Never Smoked - CARDIAC Hx Hypercholesterolemia: Yes Hx Hypertension: Yes - PULMONARY Hx Respiratory Disorders: No - NEUROLOGICAL Hx Alzheimer's Disease: Yes Hx Migraine: Yes - HEENT Hx HEENT Problems: No - RENAL Hx Chronic Kidney Disease: Yes (DIALYSIS MWF) - ENDOCRINE/METABOLIC Hx Endocrine Disorders: No - HEMATOLOGICAL/ONCOLOGICAL Hx Anemia: Yes Hx Human Immunodeficiency Virus (HIV): No - INTEGUMENTARY Hx Dermatological Problems: No - MUSCULOSKELETAL/RHEUMATOLOGICAL Hx Musculoskeletal Disorders: No - GASTROINTESTINAL Hx Diverticulitis: Yes - GENITOURINARY/GYNECOLOGICAL Hx Genitourinary Disorders: No - PSYCHIATRIC Hx Psychophysiologic Disorder: No Hx Substance Use: No - SURGICAL HISTORY Hx Appendectomy: Yes Hx Tonsillectomy: Yes - ANESTHESIA Hx Anesthesia: Yes Hx Anesthesia Reactions: No Hx Malignant Hyperthermia: No Meds Allergies/Adverse Reactions: Allergies Allergy/AdvReac Type Severity Reaction Status Date / Time No Known Allergies Allergy Verified 01/02/17 08:34 - Medications Medications: Current Medications Acetaminophen (Tylenol 325mg Tab) 650 mg PO Q4 PRN PRN Reason: for temp 100 and above Alprazolam (Xanax) 0.5 mg PO HS [facility] Last Admin: 01/02/17 21:30 Dose: 0.5 mg Amlodipine Besylate (Norvasc) 5 mg PO DAILY [facility] Atorvastatin Calcium (Lipitor) 20 mg PO HS [facility] Calcitriol (Rocaltrol) 0.25 mcg PO Q48H [facility] Last Admin: 01/02/17 17:29 Dose: 0.25 mcg Calcium Acetate (Phoslo) 1,334 mg PO TID [facility] Last Admin: 01/02/17 17:33 Dose: 1,334 mg Donepezil HCl (Aricept) 10 mg PO DAILY [facility] Haloperidol (Haldol) 0.5 mg PO TID [facility] Last Admin: 01/02/17 17:31 Dose: 0.5 mg Hydralazine HCl (Apresoline) 25 mg PO BID [facility] Last Admin: 01/02/17 17:32 Dose: 25 mg Hydroxyzine HCl (Atarax) 25 mg PO TID [facility] Last Admin: 01/02/17 17:31 Dose: 25 mg Vancomycin HCl 500 mg/ Sodium (Chloride) 100 mls @ 100 mls/hr IVPB QOTHERDAY [facility] Labetalol HCl (Trandate) 100 mg PO BID [facility] Last Admin: 01/02/17 17:30 Dose: 100 mg Lisinopril (Zestril) 5 mg PO DAILY [facility] Mirtazapine (Remeron) 7.5 mg PO HS [facility] Last Admin: 01/02/17 21:30 Dose: 7.5 mg Vitamin B Complex/Vit C/Folic Acid (Nephro-Valentino) 1 tab PO DAILY [facility] Physical Exam - Constitutional Appears: No Acute Distress - ENT Exam ENT Exam: Mucous Membranes Moist - Neck Exam Neck exam: Negative for: Lymphadenopathy - Respiratory Exam Respiratory Exam: absent: Chest Wall Tenderness - Cardiovascular Exam Cardiovascular Exam: REGULAR RHYTHM. absent: Rubs - Extremities Exam Extremities exam: Negative for: calf tenderness - Back Exam Back exam: absent: CVA tenderness (L), CVA tenderness (R) - Neurological Exam Neurological exam: Alert Results - Vital Signs Recent Vital Signs: Last Vital Signs Temp 98.9 F 01/02/17 20:00 Pulse 74 01/02/17 20:00 Resp 18 01/02/17 20:00 BP 164/57 H 01/02/17 20:00 Pulse Ox 97 01/02/17 20:00 - Labs Result Diagrams: 01/02/17 09:38 01/02/17 09:38 Assessment & Plan (1) Hyperkalemia Status: Acute (2) Chronic kidney disease, stage V requiring chronic dialysis Assessment and Plan: ESRD missing HD and hyperkalemia HD now as ordered k bath 2meq Na 138 bicarb. 34 UF about 1000cc Status: Chronic
[2017-01-03 03:49] VITALS: RESP 18
--- NOTE | 2017-01-03 07:16 | CP.PCM.HP ---
History of Present Illness - History of Present Illness History of Present Illness: pt admitted for hyperkalemia nad fluid overload after missing dialysis bc she "forgot". denies f/c, n/v/d. k 6 in er after akyexalate and dialysis now 4.5 pt is w/o complaints. Present on Admission - Present on Admission Any Indicators Present on Admission: No Past Patient History - Infectious Disease Hx of Infectious Diseases: None - Tetanus Immunizations Tetanus Immunization: Unknown - Past Medical History & Family History Past Medical History?: Yes - Past Social History Smoking Status: Never Smoked - CARDIAC Hx Hypercholesterolemia: Yes Hx Hypertension: Yes - PULMONARY Hx Respiratory Disorders: No - NEUROLOGICAL Hx Alzheimer's Disease: Yes Hx Migraine: Yes - HEENT Hx HEENT Problems: No - RENAL Hx Chronic Kidney Disease: Yes (DIALYSIS MWF) - ENDOCRINE/METABOLIC Hx Endocrine Disorders: No - HEMATOLOGICAL/ONCOLOGICAL Hx Anemia: Yes Hx Human Immunodeficiency Virus (HIV): No - INTEGUMENTARY Hx Dermatological Problems: No - MUSCULOSKELETAL/RHEUMATOLOGICAL Hx Musculoskeletal Disorders: No - GASTROINTESTINAL Hx Diverticulitis: Yes - GENITOURINARY/GYNECOLOGICAL Hx Genitourinary Disorders: No - PSYCHIATRIC Hx Psychophysiologic Disorder: No Hx Substance Use: No - SURGICAL HISTORY Hx Appendectomy: Yes Hx Tonsillectomy: Yes - ANESTHESIA Hx Anesthesia: Yes Hx Anesthesia Reactions: No Hx Malignant Hyperthermia: No Meds Allergies/Adverse Reactions: Allergies Allergy/AdvReac Type Severity Reaction Status Date / Time No Known Allergies Allergy Verified 01/02/17 08:34 Physical Exam - Constitutional Appears: Well, Non-toxic, No Acute Distress - Head Exam Head Exam: ATRAUMATIC, NORMAL INSPECTION, NORMOCEPHALIC - Eye Exam Eye Exam: EOMI, Normal appearance, PERRL Pupil Exam: NORMAL ACCOMODATION, PERRL - ENT Exam ENT Exam: Mucous Membranes Moist, Normal Exam - Neck Exam Neck exam: Positive for: Normal Inspection - Respiratory Exam Respiratory Exam: Clear to Auscultation Bilateral, NORMAL BREATHING PATTERN - Cardiovascular Exam Cardiovascular Exam: REGULAR RHYTHM, RRR, +S1, +S2 - GI/Abdominal Exam GI & Abdominal Exam: Normal Bowel Sounds, Soft. absent: Tenderness - Extremities Exam Extremities exam: Positive for: full ROM, normal capillary refill, normal inspection, pedal pulses present - Back Exam Back exam: FULL ROM, NORMAL INSPECTION - Neurological Exam Neurological exam: Alert, CN II-XII Intact, Normal Gait, Oriented x3, Reflexes Normal - Psychiatric Exam Psychiatric exam: Normal Affect, Normal Mood - Skin Skin Exam: Dry, Intact, Normal Color, Warm Results - Vital Signs Recent Vital Signs: Last Vital Signs Temp 97.8 F 01/03/17 02:30 Pulse 72 01/03/17 02:30 Resp 18 01/03/17 02:30 BP 138/76 01/03/17 02:30 Pulse Ox 97 01/03/17 00:07 - Labs Result Diagrams: 01/03/17 06:00 01/03/17 06:00 Assessment & Plan (1) Hyperkalemia Assessment and Plan: resolved w/ meds and dialysis, will monitor Status: Acute (2) DVT prophylaxis Assessment and Plan: scd and aehose, ambulation Status: Acute (3) CKD (chronic kidney disease) stage V requiring chronic dialysis Assessment and Plan: dialysis, sw, nephro Status: Chronic Decision To Admit - Pt Status Changed To: Hospital Disposition Of: Observation - . Bed Request Type: Med/Surg Admitting Physician: Enid Bernard
[2017-01-03 07:21] LABS: BASO # 0.1 K/uL (0.0-0.2); BASO % 2.2 % (0.0-2.0); EOS # 0.4 K/uL (0.0-0.7); EOS % 7.4 % (0.0-4.0); HEMATOCRIT 29.9 % (34.0-47.0); LYMPH # 1.2 K/uL (1.0-4.3); LYMPH % 23.6 % (20.0-40.0); MEAN CELL VOLUME 84.7 fl (81.0-99.0); MEAN CORPUSCULAR HEMOGLOBIN 28.8 pg (27.0-31.0); MEAN PLATELET VOLUME 9.9 fl (7.2-11.7); MONO # 0.7 K/uL (0.0-0.8); MONO % 13.3 % (0.0-10.0); NEUT # 2.7 K/uL (1.8-7.0); NEUT % 53.5 % (50.0-75.0); NRBC % 0.2 % (0.0-0.0); RED CELL DISTRIBUTION WIDTH 15.5 % (11.5-14.5)
[2017-01-03 07:28] LABS: ALB/GLOB RATIO 1.5 (1.0-2.1); BILIRUBIN,TOTAL 0.4 mg/dl (0.2-1.3); CALCIUM 8.9 mg/dL (8.4-10.2); POTASSIUM 4.5 MMOL/L (3.6-5.0); TOTAL PROTEIN 6.6 G/DL (6.3-8.2)
[2017-01-03] MEDS ORDERED: Multivitamin Vitamin B Complex (Nephro-Vite) Tab PO SCH (09:00)
--- NOTE | 2017-01-03 09:51 | CP.PCM.PN ---
Subjective - Date & Time of Evaluation Date of Evaluation: 01/03/17 Time of Evaluation: 09:49 - Subjective Subjective: Patient in bed and appears to be comfortable awake and conscious Blood pressure elevated patient was on clonidine we will restart clonidine now Patient completed hemodialysis last night Patient has so many counseling in the dialysis unit and here in the hospital to comply with the dialysis and she keep intermittently refusing. Patient not cooperating with the dialysis and medications The son is aware Chest is clear Heart no rubs Abdomen soft Extremity no edema Impression and plan Adding clonidine for the management of hypertension Patient can be discharged and follow-up as outpatient hopefully she will come to have dialysis as outpatient as she said yes she was come. Objective - Vital Signs/Intake and Output Vital Signs (last 24 hours): Temp Pulse Resp BP Pulse Ox 97.2 F L 76 18 186/79 H 100 01/03/17 08:00 01/03/17 09:00 01/03/17 08:00 01/03/17 08:09 01/03/17 08:00 - Medications Medications: Current Medications Acetaminophen (Tylenol 325mg Tab) 650 mg PO Q4 PRN PRN Reason: for temp 100 and above Acetaminophen (Tylenol 325mg Tab) 650 mg PO Q6 PRN PRN Reason: Pain, severe (8-10) Last Admin: 01/02/17 23:29 Dose: 650 mg Alprazolam (Xanax) 0.5 mg PO [facility] Last Admin: 01/02/17 21:30 Dose: 0.5 mg Amlodipine Besylate (Norvasc) 5 mg PO DAILY [facility] Last Admin: 01/03/17 08:09 Dose: 5 mg Atorvastatin Calcium (Lipitor) 20 mg PO [facility] Calcitriol (Rocaltrol) 0.25 mcg PO Q48H [facility] Last Admin: 01/02/17 17:29 Dose: 0.25 mcg Calcium Acetate (Phoslo) 1,334 mg PO TID [facility] Last Admin: 01/03/17 08:05 Dose: 1,334 mg Donepezil HCl (Aricept) 10 mg PO DAILY [facility] Last Admin: 01/03/17 08:04 Dose: 10 mg Haloperidol (Haldol) 0.5 mg PO TID [facility] Last Admin: 01/03/17 08:04 Dose: 0.5 mg Hydralazine HCl (Apresoline) 25 mg PO BID [facility] Last Admin: 01/03/17 08:03 Dose: 25 mg Hydroxyzine HCl (Atarax) 25 mg PO TID [facility] Last Admin: 01/03/17 08:04 Dose: 25 mg Vancomycin HCl 500 mg/ Sodium (Chloride) 100 mls @ 100 mls/hr IVPB QOTHERDAY [facility] Labetalol HCl (Trandate) 100 mg PO BID [facility] Last Admin: 01/03/17 08:05 Dose: 100 mg Lisinopril (Zestril) 5 mg PO DAILY [facility] Last Admin: 01/03/17 08:06 Dose: 5 mg Mirtazapine (Remeron) 7.5 mg PO HS [facility] Last Admin: 01/02/17 21:30 Dose: 7.5 mg Vitamin B Complex/Vit C/Folic Acid (Nephro-Valentino) 1 tab PO DAILY [facility] - Labs Labs: 01/03/17 06:00 01/03/17 06:00 Assessment and Plan (1) Hyperkalemia Status: Acute (2) Chronic kidney disease, stage V requiring chronic dialysis Status: Chronic
[2017-01-03 12:36] VITALS: BP 138/63; PULSE 70; TEMP 97.6; O2SAT 98
[2017-01-04] MEDS ORDERED: [UNRECOGNIZED DRUG - OTHER] IV SCH (09:00)
[2017-01-04] MEDS ORDERED: VANCOMYCIN IV SCH (09:00)
[2017-01-04] MEDS ORDERED: SOD CHLORIDE IV SCH (09:00)
== END 2017-01-03 14:19 | disposition home or self-care (01) ==
LOC: H.ER 08:16 → H.ERHOLD 14:35 → H.TEL 18:11
PROVIDERS: ADMIT Family Medicine; ATTEND Family Medicine
DX: E87.5 Hyperkalemia (principal); E78.00 Pure hypercholesterolemia, unspecified; G30.9 Alzheimer's disease, unspecified; I12.0 Hypertensive chronic kidney disease with stage 5 chronic kidney disease or end stage renal disease; N18.6 End stage renal disease; Z99.2 Dependence on renal dialysis; Z91.15 Patient's noncompliance with renal dialysis; G43.909 Migraine, unspecified, not intractable, without status migrainosus
CPT/HCPCS: 36415; 71010; 80048; 80053; 85025; 86705; 86706; 86803; 87340; 93005; 96374; 99285; G0378

== ENCOUNTER 2017-01-14 18:45 | Inpatient (IN) | payer MEDICARE ==
[2017-01-14 18:45] VITALS: BMI 21.6
[2017-01-14 19:14] LABS: VENOUS BLOOD GAS BASE EXCESS -1.6 mmol/L (0.0-2.0); VENOUS BLOOD GAS PCO2 32 mmHg (40-60); VENOUS BLOOD GAS PO2 52 mm/Hg (30-55); VENOUS BLOOD PH 7.44 (7.32-7.43)
[2017-01-14] MEDS ORDERED: Sodium Chloride 0.9% 250 ML IV STA (19:16)
[2017-01-14] MEDS ORDERED: Vancomycin 0.5 GM in Sodium Chloride 0.9% 100 ML IV STA (19:18)
[2017-01-14 19:19] LABS: BASO # 0.1 K/uL (0.0-0.2); BASO % 0.9 % (0.0-2.0); EOS # 0.1 K/uL (0.0-0.7); EOS % 1.5 % (0.0-4.0); HEMOGLOBIN 10.4 g/dL (12.0-16.0); LYMPH # 0.7 K/uL (1.0-4.3); LYMPH % 8.7 % (20.0-40.0); MEAN CELL VOLUME 86.3 fl (81.0-99.0); MEAN CORPUSCULAR HEMOGLOBIN 28.4 pg (27.0-31.0); MEAN CORPUSCULAR HGB CONC 32.9 g/dL (33.0-37.0); MEAN PLATELET VOLUME 10.4 fl (7.2-11.7); MONO # 0.7 K/uL (0.0-0.8); MONO % 8.4 % (0.0-10.0); NEUT # 6.4 K/uL (1.8-7.0); NEUT % 80.5 % (50.0-75.0); PLATELET COUNT 125 K/uL (130-400); RBC 3.67 Mil/uL (3.80-5.20); RED CELL DISTRIBUTION WIDTH 15.5 % (11.5-14.5)
[2017-01-14 19:28] LABS: ALB/GLOB RATIO 1.7 (1.0-2.1); ALBUMIN 4.7 g/dL (3.5-5.0); CALCIUM 10.1 mg/dL (8.4-10.2); MAGNESIUM 1.9 MG/DL (1.6-2.3)
--- NOTE | 2017-01-14 19:37 | ED PDOC ---
HPI: General Adult Time Seen by Provider: 01/14/17 18:49 Chief Complaint (Nursing): Respiratory Distress Chief Complaint (Provider): Fever History Per: Patient History/Exam Limitations: no limitations Onset/Duration Of Symptoms: Hrs (3-4) Have you had recent travel within the past 21 days to any of the following countries: [place], [place], [place] or [place]?: No Current Symptoms Are (Timing): Still Present Severity: Moderate Additional History Per: Patient Additional Complaint(s): The pt is a 76yo female, PMHx of HTN, end stage renal disease (per prior charts) , presents to ED for evaluation of fever, which started 3-4 hours prior to arrival. Pt reports associated malaise, fatigue, bodyaches, mild rhinorrhea. She denies any cough, rash, vomiting or diarrhea. Pt reports some decreased appetite today, denies any swelling. Of note, pt had a recent hospital visit with discharge on 12/2116. Pt has end stage renal disease, is on dialysis with last dialysis occurring on 01/12/17. Pt also has an indwelling right upper chest perma-cath for dialysis. Pt without any other medical complaints. PCP: Cristi Past Medical History Reviewed: Historical Data, Nursing Documentation, Vital Signs Vital Signs: Last Vital Signs Temp 98.6 F 01/15/17 13:00 Pulse 83 01/15/17 13:00 Resp 18 01/15/17 13:00 BP 168/61 H 01/15/17 13:00 Pulse Ox 95 01/15/17 13:00 - Medical History PMH: Alzheimer's Disease, Anemia, Diverticulitis, HTN, Hypercholesterolemia, Kidney Stones, Migraine, End Stage Renal Disease, Chronic Kidney Disease ( DIALYSIS MWF) Denies: HIV - Surgical History Surgical History: Appendectomy, Tonsillectomy - Family History Family History: States: Unknown Family Hx, Hypertension - Immunization History Hx Tetanus Toxoid Vaccination: No Hx Influenza Vaccination: No Hx Pneumococcal Vaccination: No - Home Medications Home Medications: Ambulatory Orders Medication Instructions Recorded Atorvastatin [Lipitor] 20 mg PO DAILY 08/16/16 Calcitriol [Rocaltrol] 0.25 mcg PO Q48H 08/16/16 Calcium Acetate [Phoslo] 2 cap PO TID 08/16/16 Donepezil [Aricept] 10 mg PO DAILY 08/16/16 Labetalol [Trandate] 100 mg PO BID 08/16/16 Lisinopril [Zestril] 5 mg PO DAILY 08/16/16 amLODIPine [Norvasc] 5 mg PO DAILY 08/16/16 hydrALAZINE [Apresoline] 25 mg PO BID 08/16/16 Alprazolam [Xanax] 0.5 mg PO HS 11/04/16 B Complex W-C No.20/Folic Acid 1 cap PO DAILY 11/04/16 [Renal Caps Softgel] Mirtazapine 7.5 mg PO HS 11/04/16 hydrOXYzine HCl [Atarax] 25 mg PO TID 11/04/16 Haloperidol [Haldol] 0.5 mg PO TID 12/13/16 Acetaminophen [Tylenol 325mg tab] 650 mg PO Q4 PRN tab 12/26/16 - Allergies Allergies/Adverse Reactions: Allergies Allergy/AdvReac Type Severity Reaction Status Date / Time No Known Allergies Allergy Verified 01/02/17 08:34 Review of Systems ROS Statement: Except As Marked, All Systems Reviewed And Found Negative Constitutional: Positive for: Fever, Weakness, Malaise, Other (decreased appetite) ENT: Positive for: Nose Discharge (mild) Respiratory: Negative for: Cough Gastrointestinal: Negative for: Vomiting, Diarrhea Physical Exam - Reviewed Nursing Documentation Reviewed: Yes Vital Signs Reviewed: Yes - Physical Exam Appears: Positive for: Non-toxic, Uncomfortable (appears chronically ill) Head Exam: Positive for: ATRAUMATIC, NORMAL INSPECTION, NORMOCEPHALIC Skin: Positive for: Normal Color, Warm, Dry Eye Exam: Positive for: Normal appearance ENT: Positive for: Normal ENT Inspection. Negative for: Tonsillar Exudate, Tonsillar Swelling Neck: Positive for: Normal, Supple Cardiovascular/Chest: Positive for: Tachycardia (reg rhythm), Other (Right chest wall, catheter in place with dried blood at skin site and some mild skin exchoriation. Nontender area surrounding the insertion site, no warmth but minimal erythema noted. ) Respiratory: Positive for: Normal Breath Sounds. Negative for: Respiratory Distress Gastrointestinal/Abdominal: Positive for: Normal Exam, Soft. Negative for: Tenderness Back: Positive for: Normal Inspection Extremity: Positive for: Normal ROM. Negative for: Pedal Edema, Deformity, Swelling Neurologic/Psych: Positive for: Alert, Oriented - Laboratory Results Result Diagrams: 01/15/17 05:00 01/15/17 05:00 - ECG O2 Sat by Pulse Oximetry: 97 (RA) Pulse Ox Interpretation: Normal - Radiology X-Ray: Interpreted by Me X-Ray Interpretation: No Acute Disease, Cardiomegaly - Progress Re-evaluation Time: 20:00 Condition: Improving,but remains with symptoms - Physician Consult Information Physician Contacted: Sridhar Day Outcome Of Conversation: Reviewed findings and plan of care with Dr Day. Recommends dose of kayexylate for hyperkalemia, and then Dr Benedict will see pt tomorrow for dialysis/consult. - Critical Care Total Time (In Min): 30 Documented Critical Care: Time excludes all time spent performint seperately billable procedures Medical Decision Making Medical Decision Making: Time: 1899 Impression: Fever Differential: Sepsis, dehydration, bacteremia, PNA, viral illness, line sepsis, electrolyte abnormalities. Plan: -- Reviewed previous microbiology results, pt has Hx of staphylococcus so ordered IV Zosyn and Vanco -- CXR -- Tylenol 950 mg PO -- Rapid flu -- Rapid strep -- Bloodwork Reassess Elevated temp and tachycardia and infection c/w sepsis. Orders placed to evaluate for septic shock. IV antibiotics started, broad spectrum with consideration of previous cultures. 2000 Labs c/w ESRD, lactic acid 0.8 BP elevated and stable. Pt not in septic shock. Temp improved. Pt more comfortable. CXR no discrete infiltrate or eff. +CM DW Aleksandar [employer] [facility] Orders placed as per discussion. Scribe Attestation: Documented by Olga East acting as a scribe for Lena Danielle MD. Provider Attestation: All medical record entries made by the Scribe were at my direction and personally dictated by me. I have reviewed the chart and agree that the record accurately reflects my personal performance of the history, physical exam, medical decision making, and the department course for this patient. I have also personally directed, reviewed, and agree with the discharge instructions and disposition. Disposition - Clinical Impression Clinical Impression: Sepsis, End stage renal disease - Disposition Disposition Time: 21:30 Condition: GUARDED - Pt Status Changed To: Hospital Disposition Of: Inpatient - Admit Certification Admit to Inpatient:: After my assessment, the patient will require hospitalization for at least two midnights. This is because of the severity of symptoms shown, intensity of services needed, and/or the medical risk in this patient being treated as an outpatient. - POA Present On Arrival: [facility] (possible)
[2017-01-14 20:27] LABS: PARTIAL THROMBOPLASTIN TIME 28.2 Seconds (25.6-37.1); PROTHROMBIN TIME 11.2 Seconds (9.8-13.1)
[2017-01-14] MEDS ORDERED: Sod Polystyrene Sulf 15 gm/60 ml Oral Susp PO ONE (20:48)
[2017-01-14] MEDS ORDERED: Sod Polystyrene Sulf 15 gm/60 ml Oral Susp ONE (21:00)
[2017-01-14 21:24] LABS: LYMPHOCYTE 8 % (20-50); MONOCYTE 3 % (0-10); NEUTROPHIL 89 % (42-75); PLATELET ESTIMATE DECREASED (NORMAL); TOTAL CELLS COUNTED 100
[2017-01-14 21:25] LABS: HYPOCHROMIC SLIGHT
[2017-01-14 21:26] LABS: ANISOCYTOSIS SLIGHT; OVALOCYTES SLIGHT
[2017-01-14] MEDS ORDERED: Acetaminophen 650mg/20.3ml solution UD PO ONE (21:38)
[2017-01-14] MEDS ORDERED: MIRTAZAPINE 7.5 MG PO SCH (22:00)
[2017-01-14 22:56] LABS: VENOUS BLOOD GAS BASE EXCESS -0.3 mmol/L (0.0-2.0); VENOUS BLOOD GAS PCO2 25 mmHg (40-60); VENOUS BLOOD GAS PO2 130 mm/Hg (30-55); VENOUS BLOOD PH 7.54 (7.32-7.43)
[2017-01-15 06:46] LABS: ALB/GLOB RATIO 1.5 (1.0-2.1); ALBUMIN 3.7 g/dL (3.5-5.0); BASO # 0.1 K/uL (0.0-0.2); BASO % 0.7 % (0.0-2.0); CALCIUM 9.1 mg/dL (8.4-10.2); EOS % 0.2 % (0.0-4.0); HEMOGLOBIN 8.9 g/dL (12.0-16.0); LYMPH # 0.7 K/uL (1.0-4.3); LYMPH % 9.4 % (20.0-40.0); MEAN CELL VOLUME 85.8 fl (81.0-99.0); MEAN CORPUSCULAR HEMOGLOBIN 28.9 pg (27.0-31.0); MEAN CORPUSCULAR HGB CONC 33.7 g/dL (33.0-37.0); MEAN PLATELET VOLUME 10.4 fl (7.2-11.7); NEUT # 5.9 K/uL (1.8-7.0); NEUT % 76.7 % (50.0-75.0); RBC 3.08 Mil/uL (3.80-5.20); RED CELL DISTRIBUTION WIDTH 15.1 % (11.5-14.5); WHITE BLOOD COUNT 7.7 K/uL (4.8-10.8)
--- NOTE | 2017-01-15 07:32 | CP.PCM.HP ---
History of Present Illness - History of Present Illness History of Present Illness: pt admitted for sepsis unkn etiology. came in for fvever x a few hrs yesterday. has h/o port infection/bacteremia. ahs been going to dialysis. bw noted. afebrile at present. only compaint is chornic r shoudler pain. no f/c, n/v/d at present. flu and strep negative. penidng c/s. id and nephro on consult Present on Admission - Present on Admission Any Indicators Present on Admission: No Review of Systems - Constitutional Constitutional: As Per HPI, Fever - Musculoskeletal Musculoskeletal: As Per HPI, Arthralgias Past Patient History - Infectious Disease Hx of Infectious Diseases: None - Tetanus Immunizations Tetanus Immunization: Unknown - Past Medical History & Family History Past Medical History?: Yes - Past Social History Smoking Status: Never Smoked - CARDIAC Hx Hypercholesterolemia: Yes Hx Hypertension: Yes - PULMONARY Hx Respiratory Disorders: No - NEUROLOGICAL Hx Alzheimer's Disease: Yes Hx Migraine: Yes - HEENT Hx HEENT Problems: No - RENAL Hx Chronic Kidney Disease: Yes (DIALYSIS MWF) Hx Kidney Stones: Yes - ENDOCRINE/METABOLIC Hx Endocrine Disorders: No - HEMATOLOGICAL/ONCOLOGICAL Hx Anemia: Yes Hx Human Immunodeficiency Virus (HIV): No - INTEGUMENTARY Hx Dermatological Problems: No - MUSCULOSKELETAL/RHEUMATOLOGICAL Hx Falls: No - GASTROINTESTINAL Hx Diverticulitis: Yes - GENITOURINARY/GYNECOLOGICAL Hx Genitourinary Disorders: No - PSYCHIATRIC Hx Substance Use: No - SURGICAL HISTORY Hx Appendectomy: Yes Hx Tonsillectomy: Yes - ANESTHESIA Hx Anesthesia: Yes Hx Anesthesia Reactions: No Hx Malignant Hyperthermia: No Meds Allergies/Adverse Reactions: Allergies Allergy/AdvReac Type Severity Reaction Status Date / Time No Known Allergies Allergy Verified 01/02/17 08:34 Physical Exam - Constitutional Appears: Well, Non-toxic, No Acute Distress - Head Exam Head Exam: ATRAUMATIC, NORMAL INSPECTION, NORMOCEPHALIC - Eye Exam Eye Exam: EOMI, Normal appearance, PERRL Pupil Exam: NORMAL ACCOMODATION, PERRL - ENT Exam ENT Exam: Mucous Membranes Moist, Normal Exam - Neck Exam Neck exam: Positive for: Normal Inspection - Respiratory Exam Respiratory Exam: Clear to Auscultation Bilateral, NORMAL BREATHING PATTERN - Cardiovascular Exam Cardiovascular Exam: REGULAR RHYTHM, RRR - GI/Abdominal Exam GI & Abdominal Exam: Normal Bowel Sounds, Soft. absent: Tenderness - Extremities Exam Extremities exam: Positive for: full ROM, normal capillary refill, normal inspection, pedal pulses present - Back Exam Back exam: NORMAL INSPECTION - Neurological Exam Neurological exam: Alert, CN II-XII Intact, Normal Gait, Oriented x3, Reflexes Normal - Psychiatric Exam Psychiatric exam: Normal Affect, Normal Mood - Skin Skin Exam: Dry, Intact, Normal Color, Warm Results - Vital Signs Recent Vital Signs: Last Vital Signs Temp 98.8 F 01/15/17 05:08 Pulse 81 01/15/17 05:08 Resp 18 01/15/17 05:08 BP 164/54 H 01/15/17 05:08 Pulse Ox 96 01/15/17 05:08 - Labs Result Diagrams: 01/15/17 05:00 01/15/17 05:00 Labs: Laboratory Results - last 24 hr 01/14/17 01/15/17 01/15/17 22:00 05:00 05:00 WBC 7.7 RBC 3.08 L Hgb 8.9 L Hct 26.4 L MCV 85.8 MCH 28.9 MCHC 33.7 RDW 15.1 H Plt Count 91 L D MPV 10.4 Neut % (Auto) 76.7 H Lymph % (Auto) 9.4 L [place] % (Auto) 13.0 H Eos % (Auto) 0.2 Baso % (Auto) 0.7 Neut # 5.9 Lymph # 0.7 L [place] # 1.0 H Eos # 0.0 Baso # 0.1 pO2 130 H VBG pH 7.54 H VBG pCO2 25 L VBG HCO3 24.7 VBG Total CO2 22.2 VBG O2 Sat (Calc) 99.6 H VBG Base Excess -0.3 L VBG Potassium 5.0 Sodium 134.0 137 Chloride 106.0 104 Glucose 125 H Lactate 1.6 FiO2 21.0 Potassium 4.5 Carbon Dioxide 22 Anion Gap 16 BUN 71 H Creatinine 4.8 H Est GFR ( Amer) 11 Est GFR (Non-Af Amer) 9 Random Glucose 103 Calcium 9.1 Total Bilirubin 0.9 AST 24 ALT 33 Alkaline Phosphatase 61 Total Protein 6.1 L Albumin 3.7 Globulin 2.4 Albumin/Globulin Ratio 1.5 Venous Blood Potassium 5.0 Assessment & Plan (1) Right shoulder pain Assessment and Plan: tylenol imaging if worsens Status: Acute (2) Sepsis Assessment and Plan: unkn etiology ?? r/t port or bacteremia f/u c/s id consult vanc and zosyn-renally dosed fever contrl Status: Acute (3) End stage renal disease Assessment and Plan: cont m/f schedule bp control given 0.1mg clonidine x 2 last night. nephro consult Status: Chronic (4) DVT prophylaxis Status: Acute Decision To Admit - Pt Status Changed To: Hospital Disposition Of: Inpatient - Admit Certification Admit to Inpatient:: After my assessment, the patient will require hospitalization for at least two midnights. This is because of the severity of symptoms shown, intensity of services needed, and/or the medical risk in this patient being treated as an outpatient. - . Bed Request Type: Telemetry Admitting Physician: Enid Bernard
[2017-01-15] MEDS ORDERED: [UNRECOGNIZED DRUG - REMARK] PO SCH (09:00)
[2017-01-15] MEDS: Multivitamin Vitamin B Complex (Nephro-Vite) Tab PO SCH (09:01)
--- NOTE | 2017-01-15 09:47 | CARD ---
APPROVED REPORT EKG Measurement Heart [id number] <Conclusion> Sinus tachycardia Right atrial enlargement Possible Anterior infarct, age undetermined Abnormal ECG
--- NOTE | 2017-01-15 10:04 | CP.PCM.CON ---
History of Present Illness - History of Present Illness History of Present Illness: This patient who is 76 years old was admitted because of fever and chills and she came to the emergency room. Patient just had recently less then 2 weeks ago remove subclavian catheter for dialysis. Patient has not been cooperating with dialysis , missing dialysis days some time Patient has multiple medical problem related to hypertension with chronic end stage renal disease hyperlipidemia chronic itching and patient not showing up for dialysis intermittently and also she had history of Staphylococcus in the past. Patient has left AV fistula which has not been walking with she was sent to see the vascular for further evaluation and she is not cooperating for that as well. No chest pain no shortness of breath patient admitted with hyperkalemia and she was given Kayexalate. Review of Systems - Constitutional Constitutional: Chills, Fever - Cardiovascular Cardiovascular: absent: Chest Pain, Dyspnea, Edema - Respiratory Respiratory: absent: Cough, Dyspnea - Gastrointestinal Gastrointestinal: absent: Abdominal Pain - Genitourinary Genitourinary: Nocturia - Musculoskeletal Musculoskeletal: Muscle Weakness - Neurological Neurological: As Per HPI - Psychiatric Psychiatric: As Per HPI Past Patient History - Infectious Disease Hx of Infectious Diseases: None - Tetanus Immunizations Tetanus Immunization: Unknown - Past Medical History & Family History Past Medical History?: Yes - Past Social History Smoking Status: Never Smoked - CARDIAC Hx Hypercholesterolemia: Yes Hx Hypertension: Yes - PULMONARY Hx Respiratory Disorders: No - NEUROLOGICAL Hx Alzheimer's Disease: Yes Hx Migraine: Yes - HEENT Hx HEENT Problems: No - RENAL Hx Chronic Kidney Disease: Yes (DIALYSIS MWF) Hx Kidney Stones: Yes - ENDOCRINE/METABOLIC Hx Endocrine Disorders: No - HEMATOLOGICAL/ONCOLOGICAL Hx Anemia: Yes Hx Human Immunodeficiency Virus (HIV): No - INTEGUMENTARY Hx Dermatological Problems: No - MUSCULOSKELETAL/RHEUMATOLOGICAL Hx Falls: No - GASTROINTESTINAL Hx Diverticulitis: Yes - GENITOURINARY/GYNECOLOGICAL Hx Genitourinary Disorders: No - PSYCHIATRIC Hx Substance Use: No - SURGICAL HISTORY Hx Appendectomy: Yes Hx Tonsillectomy: Yes - ANESTHESIA Hx Anesthesia: Yes Hx Anesthesia Reactions: No Hx Malignant Hyperthermia: No Meds Allergies/Adverse Reactions: Allergies Allergy/AdvReac Type Severity Reaction Status Date / Time No Known Allergies Allergy Verified 01/02/17 08:34 - Medications Medications: Current Medications Acetaminophen (Tylenol 325mg Tab) 650 mg PO Q4 PRN PRN Reason: for temp 100 and above Last Admin: 01/14/17 22:43 Dose: 650 mg Alprazolam (Xanax) 0.5 mg PO [facility] Last Admin: 01/14/17 22:45 Dose: 0.5 mg Amlodipine Besylate (Norvasc) 5 mg PO DAILY [facility] Last Admin: 01/15/17 09:01 Dose: 5 mg Atorvastatin Calcium (Lipitor) 20 mg PO DAILY [facility] Last Admin: 01/15/17 09:01 Dose: 20 mg Calcitriol (Rocaltrol) 0.25 mcg PO Q48H [facility] Last Admin: 01/14/17 22:28 Dose: 0.25 mcg Calcium Acetate (Phoslo) 2 mg PO TID [facility] Hydralazine HCl (Apresoline) 25 mg PO BID [facility] Last Admin: 01/15/17 08:59 Dose: 25 mg Hydroxyzine HCl (Atarax) 25 mg PO TID [facility] Last Admin: 01/15/17 09:01 Dose: Not Given Vancomycin HCl 500 mg/ Sodium (Chloride) 100 mls @ 100 mls/hr IVPB DAILY [facility] Last Admin: 01/15/17 08:15 Dose: 100 mls/hr Piperacillin Sod/Tazobactam (Sod 2.25 gm/ Sodium Chloride) 100 mls @ 100 mls/ hr IVPB Q6 [facility] Last Admin: 01/15/17 09:11 Dose: 100 mls/hr Labetalol HCl (Trandate) 100 mg PO BID [facility] Last Admin: 01/15/17 09:02 Dose: 100 mg Lisinopril (Zestril) 5 mg PO DAILY [facility] Last Admin: 01/15/17 09:03 Dose: 5 mg Mirtazapine (Remeron) 7.5 mg PO [facility] Last Admin: 01/14/17 22:28 Dose: 7.5 mg Vitamin B Complex/Vit C/Folic Acid (Nephro-Valentino) 1 tab PO DAILY [facility] Last Admin: 01/15/17 09:01 Dose: 1 tab Physical Exam - Constitutional Appears: No Acute Distress - ENT Exam ENT Exam: Mucous Membranes Moist - Neck Exam Neck exam: Negative for: Lymphadenopathy - Respiratory Exam Respiratory Exam: absent: Chest Wall Tenderness, Rales - Cardiovascular Exam Cardiovascular Exam: REGULAR RHYTHM. absent: Rubs - GI/Abdominal Exam GI & Abdominal Exam: Normal Bowel Sounds - Extremities Exam Extremities exam: Negative for: calf tenderness - Back Exam Back exam: absent: CVA tenderness (L), CVA tenderness (R) - Neurological Exam Neurological exam: Alert Results - Vital Signs Recent Vital Signs: Last Vital Signs Temp 98.1 F 01/15/17 08:15 Pulse 74 01/15/17 09:03 Resp 20 01/15/17 08:15 BP 177/65 H 01/15/17 09:03 Pulse Ox 97 01/15/17 08:15 - Labs Result Diagrams: 01/15/17 05:00 01/15/17 05:00 Labs: Laboratory Results - last 24 hr 01/14/17 01/15/17 01/15/17 22:00 05:00 05:00 WBC 7.7 RBC 3.08 L Hgb 8.9 L Hct 26.4 L MCV 85.8 MCH 28.9 MCHC 33.7 RDW 15.1 H Plt Count 91 L D MPV 10.4 Neut % (Auto) 76.7 H Lymph % (Auto) 9.4 L [place] % (Auto) 13.0 H Eos % (Auto) 0.2 Baso % (Auto) 0.7 Neut # 5.9 Lymph # 0.7 L [place] # 1.0 H Eos # 0.0 Baso # 0.1 pO2 130 H VBG pH 7.54 H VBG pCO2 25 L VBG HCO3 24.7 VBG Total CO2 22.2 VBG O2 Sat (Calc) 99.6 H VBG Base Excess -0.3 L VBG Potassium 5.0 Sodium 134.0 137 Chloride 106.0 104 Glucose 125 H Lactate 1.6 FiO2 21.0 Potassium 4.5 Carbon Dioxide 22 Anion Gap 16 BUN 71 H Creatinine 4.8 H Est GFR ( Amer) 11 Est GFR (Non-Af Amer) 9 Random Glucose 103 Calcium 9.1 Total Bilirubin 0.9 AST 24 ALT 33 Alkaline Phosphatase 61 Total Protein 6.1 L Albumin 3.7 Globulin 2.4 Albumin/Globulin Ratio 1.5 Venous Blood Potassium 5.0 Assessment & Plan (1) Sepsis Status: Acute (2) Chronic kidney disease, stage V requiring chronic dialysis Assessment and Plan: Patient with end stage renal disease admitted with fever and chills rule out sepsis Patient was started on intravenous antibiotics. Patient scheduled for hemodialysis for today arrangement has been made order was given Ultrafiltration about 500 to 1000 Potassium bath [place] and Bicarbonate bath 34 If blood culture positive for Staphylococcus patient need replacement of the dialysis catheter. Status: Chronic
--- NOTE | 2017-01-15 11:01 | RAD ---
HISTORY: Tachycardia. Portable study 19:38 COMPARISON: 01/02/2017 FINDINGS: LUNGS: No active pulmonary disease. PLEURA: No significant pleural effusion identified, no pneumothorax apparent. CARDIOVASCULAR: No radiographic findings to suggest acute or significant cardiovascular disease. Venous access catheter in stable, satisfactory position. OSSEOUS STRUCTURES: No significant abnormalities. VISUALIZED UPPER ABDOMEN: Normal. OTHER FINDINGS: None. IMPRESSION: No active disease. No significant interval change compared to the prior examination(s).
--- NOTE | 2017-01-15 13:18 | CP.PCM.CON ---
History of Present Illness - History of Present Illness History of Present Illness: 76yo female, PMHx of HTN, end stage renal disease (per prior charts), presents to ED for evaluation of fever, which started 3-4 hours prior to arrival. Pt reports associated malaise, fatigue, bodyaches, mild rhinorrhea. She denies any cough, rash, vomiting or diarrhea. Pt reports some decreased appetite today, denies any swelling. Of note, pt had a recent hospital visit with discharge on 12/2116. Pt has end stage renal disease, is on dialysis with last dialysis occurring on 01/12/17. Pt also has an indwelling right upper chest perma-cath for dialysis. pT WAS HERE IN december WITH SEPSIS AND BACTEREMIA- GREW MSSA AND HAD CATHETER REPLACED FOLLOWED BY IV ANTIBIOTICS ON EXAM HAS LOUD MURMUR RECC: CARDIO EVAL / CONSIDER ERIC CONT IV RX FOR 2-6 WEEKS AWAIT CULTURES MAY NEED TO CHANGE CATHETER AGAIN IN A 2 STEP FASHION WITH NEGATIVE BLOOD CULTURES PRIOR TO INSERTION OF PERMACATH - Medical History PMH: Alzheimer's Disease, Anemia, Diverticulitis, HTN, Hypercholesterolemia, Kidney Stones, Migraine, End Stage Renal Disease, Chronic Kidney Disease ( DIALYSIS MWF) Denies: HIV - Surgical History Surgical History: Appendectomy, Tonsillectomy - Family History Family History: States: Unknown Family Hx, Hypertension Review of Systems - Constitutional Constitutional: As Per HPI - EENT Eyes: absent: As Per HPI, Blind Spots, Blurred Vision, Change in Vision, Decreased Night Vision, Diplopia, Discharge, Dry Eye, Exophthalmos, Floaters, Irritation, Itchy Eyes, Loss of Peripheral Vision, Pain, Photophobia, Requires Corrective Lenses, Sees Flashes, Spots in Vision, Tunnel Vision, Other Visual Disturbances, Loss of Vision, Other Ears: absent: As Per HPI, Decreased Hearing, Ear Discharge, Ear Pain, Tinnitus, Abnormal Hearing, Disequilibrium, Dizziness, Other Nose/Mouth/Throat: absent: As Per HPI, Epistaxis, Nasal Congestion, Nasal Discharge, Nasal Obstruction, Nasal Trauma, Nose Pain, Post Nasal Drip, Sinus Pain, Sinus Pressure, Bleeding Gums, Change in Voice, Dental Pain, Dry Mouth, Dysphagia, Halitosis, Hoarsness, Lip Swelling, Mouth Lesions, Mouth Pain, Odynophagia, Sore Throat, Throat Swelling, Tongue Swelling, Facial Pain, Neck Pain, Neck Mass, Other - Breasts Breasts: absent: As Per HPI, Change in Shape, Mass, Pain, Nipple Discharge, Nipple Inversion, Skin Changes, Swelling, Other - Cardiovascular Cardiovascular: As Per HPI - Respiratory Respiratory: absent: As Per HPI, Cough, Dyspnea, Hemoptysis, Dyspnea on Exertion , Wheezing, Snoring, Stridor, Pain on Inspiration, Chest Congestion, Excessive Mucous Production, Change in Mucous Color, Pain with Coughing, Other - Gastrointestinal Gastrointestinal: absent: As Per HPI, Abdominal Pain, Belching, Bloating, Change in Bowel Habits, Change in Stool Character, Coffee Ground Emesis, Constipation, Cramping, Diarrhea, Dyspepsia, Dysphagia, Early Satiety, Excessive Flatus, Fecal Incontinence, Heartburn, Hematemesis, Hematochezia, Loose Stools, Melena, Nausea, Odynophagia, Temesmus, Vomiting, Other - Genitourinary Genitourinary: absent: As Per HPI, Change in Urinary Stream, Difficulty Urinating, Dysuria, Flank Pain, Hematuria, Pyuria, Nocturia, Urinary Incontinence, Urinary Frequency, Urinary Hesitance, Urinary Urgency, Voiding Freq/Small Amts, Freq UTI, Hx Renal/Bladder Calculi, Hx /Renal Surgery, Bladder Distension, Other - Reproductive: Female Reproductive:Female: absent: As Per HPI, Amenorrhea, Amenorrhea/ Control, Currently Menstual, Cycle <21 Days, Cycle >35 Days, Cycle Variable, Menses 1-7 Days, Menses >/= 8 Days, Menses Variable, Cycle > 4 Weeks Between, No Menses for 6 Months, Heavy Menses, Light Menses, Normal Menses, Spotting Between Cycles , S/P Hysterectomy, Menopausal, Post Menopausal, Premenarche, Abnormal Vaginal Bleeding, Dysmenorrhea, Dyspareunia, Genital Lesions, Genital Pruritis, Pelvic Pain, Prolapse Symptoms, Sexual Dysfunction, Vaginal Discharge, Vaginal Dryness , Vaginal Odor, Vaginal Pruritis, Other - Menstruation Menstruation: absent: As Per HPI, Amenorrhea, Amenorrhea/ Control, Currently Menstual, Cycle <21 Days, Cycle >35 Days, Cycle Variable, Menses 1-7 Days, Menses >/= 8 Days, Menses Variable, Cycle > 4 Weeks Between, No Menses for 6 Months, Heavy Menses, Light Menses, Normal Menses, Spotting Between Cycles , S/P Hysterectomy, Menopausal, Post Menopausal, Premenarche, Abnormal Vaginal Bleeding, Dysmenorrhea, Other - Musculoskeletal Musculoskeletal: As Per HPI - Integumentary Integumentary: absent: As Per HPI, Acne, Alopecia, Bleeding Lesions, Change in Hair, Change in Nails, Change in Pigmentation, Changing Lesions, Dry Skin, Erythema, Furuncle, Hirsutism, Lesions, New Lesions, Non-Healing Lesions, Photosensitivity, Pruritus, Rash, Skin Pain, Skin Ulcer, Sores, Striae, Swelling , Unusual Bruising, Wounds, Jaundice, Other - Neurological Neurological: As Per HPI - Psychiatric Psychiatric: absent: As Per HPI, Abnormal Sleep Pattern, Anhedonia, Anxiety, Auditory Hallucinations, Behavioral Changes, Change in Appetite, Change in Libido, Confusion, Depression, Difficulty Concentrating, Hallucinations, Homicidal Ideation, Hopelessness, Irritability, Memory Loss, Mood Swings, Panic Attacks, Paranoia, Suicidal Ideation, Visual Hallucinations, Tactile Hallucinations, Other - Endocrine Endocrine: absent: As Per HPI, Change in Body Appearance, Change in Libido, Cold Intolorance, Deepening of Voice, Excessive Sweating, Fatigue, Flushing, Heat Intolorance, Increase in Ring/Shoe/Hat Size, Palpitations, Polydipsia, Polyphagia, Polyuria, Other - Hematologic/Lymphatic Hematologic: absent: As Per HPI, Easy Bleeding, Easy Bruising, Lymphadenopathy, Other Past Patient History - Infectious Disease Hx of Infectious Diseases: None - Tetanus Immunizations Tetanus Immunization: Unknown - Past Medical History & Family History Past Medical History?: Yes - Past Social History Smoking Status: Never Smoked - CARDIAC Hx Hypercholesterolemia: Yes Hx Hypertension: Yes - PULMONARY Hx Respiratory Disorders: No - NEUROLOGICAL Hx Alzheimer's Disease: Yes Hx Migraine: Yes - HEENT Hx HEENT Problems: No - RENAL Hx Chronic Kidney Disease: Yes (DIALYSIS MWF) Hx Kidney Stones: Yes - ENDOCRINE/METABOLIC Hx Endocrine Disorders: No - HEMATOLOGICAL/ONCOLOGICAL Hx Anemia: Yes Hx Human Immunodeficiency Virus (HIV): No - INTEGUMENTARY Hx Dermatological Problems: No - MUSCULOSKELETAL/RHEUMATOLOGICAL Hx Falls: No - GASTROINTESTINAL Hx Diverticulitis: Yes - GENITOURINARY/GYNECOLOGICAL Hx Genitourinary Disorders: No - PSYCHIATRIC Hx Substance Use: No - SURGICAL HISTORY Hx Appendectomy: Yes Hx Tonsillectomy: Yes - ANESTHESIA Hx Anesthesia: Yes Hx Anesthesia Reactions: No Hx Malignant Hyperthermia: No Meds Allergies/Adverse Reactions: Allergies Allergy/AdvReac Type Severity Reaction Status Date / Time No Known Allergies Allergy Verified 01/02/17 08:34 - Medications Medications: Current Medications Acetaminophen (Tylenol 325mg Tab) 650 mg PO Q4 PRN PRN Reason: for temp 100 and above Last Admin: 01/14/17 22:43 Dose: 650 mg Acetaminophen (Tylenol 325mg Tab) 650 mg PO Q6 PRN PRN Reason: Headache Last Admin: 01/15/17 12:18 Dose: 650 mg Alprazolam (Xanax) 0.5 mg PO [facility] Last Admin: 01/14/17 22:45 Dose: 0.5 mg Amlodipine Besylate (Norvasc) 5 mg PO DAILY [facility] Last Admin: 01/15/17 09:01 Dose: 5 mg Atorvastatin Calcium (Lipitor) 20 mg PO DAILY [facility] Last Admin: 01/15/17 09:01 Dose: 20 mg Calcitriol (Rocaltrol) 0.25 mcg PO Q48H [facility] Last Admin: 01/14/17 22:28 Dose: 0.25 mcg Calcium Acetate (Phoslo) 1,334 mg PO TID [facility] Last Admin: 01/15/17 10:43 Dose: 1,334 mg Hydralazine HCl (Apresoline) 25 mg PO BID [facility] Last Admin: 01/15/17 08:59 Dose: 25 mg Hydroxyzine HCl (Atarax) 25 mg PO TID [facility] Last Admin: 01/15/17 09:01 Dose: Not Given Vancomycin HCl 500 mg/ Sodium (Chloride) 100 mls @ 100 mls/hr IVPB DAILY [facility] Last Admin: 01/15/17 08:15 Dose: 100 mls/hr Piperacillin Sod/Tazobactam (Sod 2.25 gm/ Sodium Chloride) 100 mls @ 100 mls/ hr IVPB Q6 [facility] Last Admin: 01/15/17 09:11 Dose: 100 mls/hr Labetalol HCl (Trandate) 100 mg PO BID [facility] Last Admin: 01/15/17 09:02 Dose: 100 mg Lisinopril (Zestril) 5 mg PO DAILY [facility] Last Admin: 01/15/17 09:03 Dose: 5 mg Mirtazapine (Remeron) 7.5 mg PO HS [facility] Last Admin: 01/14/17 22:28 Dose: 7.5 mg Vitamin B Complex/Vit C/Folic Acid (Nephro-Valentino) 1 tab PO DAILY [facility] Last Admin: 01/15/17 09:01 Dose: 1 tab Physical Exam - Constitutional Appears: Toxic, Cachectic, Chronically Ill - Head Exam Head Exam: NORMOCEPHALIC - Eye Exam Eye Exam: PERRL. absent: Scleral icterus - ENT Exam ENT Exam: Mucous Membranes Dry, Normal External Ear Exam - Neck Exam Neck exam: Negative for: Lymphadenopathy - Respiratory Exam Respiratory Exam: Decreased Breath Sounds, Rhonchi - Cardiovascular Exam Cardiovascular Exam: Tachycardia, REGULAR RHYTHM, +S1, +S2, Systolic Murmur - GI/Abdominal Exam GI & Abdominal Exam: Diminished Bowel Sounds, Soft. absent: Tenderness - Rectal Exam Rectal Exam: Deferred - Exam Exam: NORMAL INSPECTION - Extremities Exam Extremities exam: Positive for: pedal pulses present. Negative for: calf tenderness, pedal edema, tenderness - Back Exam Back exam: absent: CVA tenderness (L), CVA tenderness (R), paraspinal tenderness - Neurological Exam Neurological exam: Alert, CN II-XII Intact, Oriented x3, Reflexes Normal - Psychiatric Exam Psychiatric exam: Normal Mood - Skin Skin Exam: Dry, Intact Results - Vital Signs Recent Vital Signs: Last Vital Signs Temp 98.6 F 01/15/17 13:00 Pulse 83 01/15/17 13:00 Resp 18 01/15/17 13:00 BP 168/61 H 01/15/17 13:00 Pulse Ox 95 01/15/17 13:00 - Labs Result Diagrams: 01/15/17 05:00 01/15/17 05:00 Labs: Laboratory Results - last 24 hr 01/14/17 01/15/17 01/15/17 22:00 05:00 05:00 WBC 7.7 RBC 3.08 L Hgb 8.9 L Hct 26.4 L MCV 85.8 MCH 28.9 MCHC 33.7 RDW 15.1 H Plt Count 91 L D MPV 10.4 Neut % (Auto) 76.7 H Lymph % (Auto) 9.4 L [place] % (Auto) 13.0 H Eos % (Auto) 0.2 Baso % (Auto) 0.7 Neut # 5.9 Lymph # 0.7 L [place] # 1.0 H Eos # 0.0 Baso # 0.1 pO2 130 H VBG pH 7.54 H VBG pCO2 25 L VBG HCO3 24.7 VBG Total CO2 22.2 VBG O2 Sat (Calc) 99.6 H VBG Base Excess -0.3 L VBG Potassium 5.0 Sodium 134.0 137 Chloride 106.0 104 Glucose 125 H Lactate 1.6 FiO2 21.0 Potassium 4.5 Carbon Dioxide 22 Anion Gap 16 BUN 71 H Creatinine 4.8 H Est GFR ( Amer) 11 Est GFR (Non-Af Amer) 9 Random Glucose 103 Calcium 9.1 Total Bilirubin 0.9 AST 24 ALT 33 Alkaline Phosphatase 61 Total Protein 6.1 L Albumin 3.7 Globulin 2.4 Albumin/Globulin Ratio 1.5 Venous Blood Potassium 5.0 Assessment & Plan (1) Sepsis Status: Acute (2) End stage renal disease Status: Chronic - Assessment and Plan (Free Text) Assessment: ON EXAM HAS LOUD MURMUR RECC: CARDIO EVAL / CONSIDER ERIC CONT IV RX FOR 2-6 WEEKS AWAIT CULTURES MAY NEED TO CHANGE CATHETER AGAIN IN A 2 STEP FASHION WITH NEGATIVE BLOOD CULTURES PRIOR TO INSERTION OF PERMACATH
[2017-01-16 06:11] LABS: BASO # 0.1 K/uL (0.0-0.2); BASO % 0.9 % (0.0-2.0); EOS # 0.2 K/uL (0.0-0.7); LYMPH # 0.9 K/uL (1.0-4.3); LYMPH % 14.2 % (20.0-40.0); MEAN CELL VOLUME 86.1 fl (81.0-99.0); MEAN CORPUSCULAR HEMOGLOBIN 28.8 pg (27.0-31.0); MEAN CORPUSCULAR HGB CONC 33.4 g/dL (33.0-37.0); MEAN PLATELET VOLUME 10.7 fl (7.2-11.7); MONO # 0.8 K/uL (0.0-0.8); NEUT % 66.9 % (50.0-75.0); RBC 3.13 Mil/uL (3.80-5.20); RED CELL DISTRIBUTION WIDTH 15.6 % (11.5-14.5)
[2017-01-16 06:29] LABS: ALB/GLOB RATIO 1.3 (1.0-2.1); ALBUMIN 3.3 g/dL (3.5-5.0); CALCIUM 8.9 mg/dL (8.4-10.2)
[2017-01-16] MEDS: Multivitamin Vitamin B Complex (Nephro-Vite) Tab PO SCH (08:48)
--- NOTE | 2017-01-16 09:47 | CP.PCM.PN ---
Subjective - Date & Time of Evaluation Date of Evaluation: 01/16/17 Time of Evaluation: 09:44 - Subjective Subjective: pt sitting up in bed, asking to be dc home. no compalints/distress. no f/c, n/v/ d. bw noted. blood c/s noted all consults apriciated. Objective - Vital Signs/Intake and Output Vital Signs (last 24 hours): Temp Pulse Resp BP Pulse Ox 98.1 F 66 18 144/53 L 97 01/16/17 08:13 01/16/17 08:46 01/16/17 08:13 01/16/17 08:46 01/16/17 08:13 Intake and Output: 01/16/17 01/16/17 06:59 18:59 Intake Total 500 Balance 500 - Medications Medications: Current Medications Acetaminophen (Tylenol 325mg Tab) 650 mg PO Q4 PRN PRN Reason: for temp 100 and above Last Admin: 01/14/17 22:43 Dose: 650 mg Acetaminophen (Tylenol 325mg Tab) 650 mg PO Q6 PRN PRN Reason: Headache Last Admin: 01/16/17 05:20 Dose: 650 mg Alprazolam (Xanax) 0.5 mg PO HS [facility] Last Admin: 01/15/17 22:13 Dose: 0.5 mg Amlodipine Besylate (Norvasc) 5 mg PO DAILY [facility] Last Admin: 01/15/17 09:01 Dose: 5 mg Atorvastatin Calcium (Lipitor) 20 mg PO DAILY [facility] Last Admin: 01/16/17 08:48 Dose: 20 mg Calcitriol (Rocaltrol) 0.25 mcg PO Q48H [facility] Last Admin: 01/14/17 22:28 Dose: 0.25 mcg Calcium Acetate (Phoslo) 1,334 mg PO TID [facility] Last Admin: 01/16/17 08:47 Dose: 1,334 mg Hydralazine HCl (Apresoline) 25 mg PO BID [facility] Last Admin: 01/16/17 08:46 Dose: 25 mg Hydroxyzine HCl (Atarax) 25 mg PO TID [facility] Last Admin: 01/16/17 08:47 Dose: 25 mg Vancomycin HCl 500 mg/ Sodium (Chloride) 100 mls @ 100 mls/hr IVPB DAILY [facility] Last Admin: 01/16/17 09:04 Dose: 100 mls/hr Piperacillin Sod/Tazobactam (Sod 2.25 gm/ Sodium Chloride) 100 mls @ 100 mls/ hr IVPB Q6 [facility] Last Admin: 01/16/17 09:03 Dose: 100 mls/hr Ketorolac Tromethamine (Toradol) 15 mg IVP Q6 PRN PRN Reason: pain 6-10 Last Admin: 01/15/17 15:35 Dose: 15 mg Labetalol HCl (Trandate) 100 mg PO BID [facility] Last Admin: 01/15/17 17:27 Dose: 100 mg Lisinopril (Zestril) 5 mg PO DAILY [facility] Last Admin: 01/15/17 09:03 Dose: 5 mg Mirtazapine (Remeron) 7.5 mg PO HS [facility] Last Admin: 01/15/17 22:12 Dose: 7.5 mg Vitamin B Complex/Vit C/Folic Acid (Nephro-Valentino) 1 tab PO DAILY [facility] Last Admin: 01/16/17 08:48 Dose: 1 tab - Labs Labs: 01/16/17 05:00 01/16/17 05:00 PT 11.2 Seconds (9.8-13.1) 01/14/17 19:06 INR 1.0 (0.9-1.2) 01/14/17 19:06 APTT 28.2 Seconds (25.6-37.1) 01/14/17 19:06 - Constitutional Appears: Well, Non-toxic, No Acute Distress - Head Exam Head Exam: ATRAUMATIC, NORMAL INSPECTION, NORMOCEPHALIC - Eye Exam Eye Exam: EOMI, Normal appearance, PERRL Pupil Exam: NORMAL ACCOMODATION, PERRL - ENT Exam ENT Exam: Mucous Membranes Moist, Normal Exam - Neck Exam Neck Exam: Full ROM, Normal Inspection. absent: Lymphadenopathy - Respiratory Exam Respiratory Exam: Clear to Ausculation Bilateral, NORMAL BREATHING PATTERN - Cardiovascular Exam Cardiovascular Exam: REGULAR RHYTHM, RRR, +S1, +S2. absent: Murmur - GI/Abdominal Exam GI & Abdominal Exam: Soft, Normal Bowel Sounds. absent: Tenderness - Extremities Exam Extremities Exam: Full ROM, Normal Capillary Refill, Normal Inspection. absent : Joint Swelling, Pedal Edema - Back Exam Back Exam: NORMAL INSPECTION - Neurological Exam Neurological Exam: Alert, Awake, CN II-XII Intact, Normal Gait, Oriented x3 - Psychiatric Exam Psychiatric exam: Normal Affect, Normal Mood - Skin Skin Exam: Dry, Intact, Normal Color, Warm Assessment and Plan (1) Right shoulder pain Status: Acute (2) Sepsis Status: Acute (3) End stage renal disease Status: Chronic (4) DVT prophylaxis Status: Acute - Assessment and Plan (Free Text) Assessment: (1) Right shoulder pain Assessment and Plan: tylenol imaging if worsens Status: Acute (2) Sepsis Assessment and Plan: bacteremia appears to be source likely port source f/u c/s id consult vanc and zosyn-renally dosed fever contrl Status: Acute (3) End stage renal disease Assessment and Plan: cont m/f schedule bp control given 0.1mg clonidine x 2 last night. nephro consult Status: Chronic (4) DVT prophylaxis Status: Acute
--- NOTE | 2017-01-16 12:09 | CP.PCM.CON ---
History of Present Illness - History of Present Illness History of Present Illness: psychiatry consult reason: "competency" ordered by dr. parmar cc: i don't want to talk to you hpi: 76 yo female m/f dialysis pt. pt admitted with sepsis. pt apparently is refusing to go to a subacute rehab. pt tells me she understands she needs dialysis and she will get it, but she does not want to go to a rehab. she also states she wants treatment with iv antibiotics. she understands she could from not treating her medical conditions if they are not treated. she states she is not rejecting treatment. mse: pt is alert, oriented x 3. mood is irritable, affect brightens as she interacts. speech is fluent and logical. thoughts are organized. she denies active thoughts to kill herself and does not want to harm herself by refusing treatment. she denies a/v hallucinations. no delusional thinking endorsed or illicited. memory is intact. fair i/j. 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 Past Patient History - Infectious Disease Hx of Infectious Diseases: None - Tetanus Immunizations Tetanus Immunization: Unknown - Past Medical History & Family History Past Medical History?: Yes - Past Social History Smoking Status: Never Smoked - CARDIAC Hx Hypercholesterolemia: Yes Hx Hypertension: Yes - PULMONARY Hx Respiratory Disorders: No - NEUROLOGICAL Hx Alzheimer's Disease: Yes Hx Migraine: Yes - HEENT Hx HEENT Problems: No - RENAL Hx Chronic Kidney Disease: Yes (DIALYSIS MWF) Hx Kidney Stones: Yes - ENDOCRINE/METABOLIC Hx Endocrine Disorders: No - HEMATOLOGICAL/ONCOLOGICAL Hx Anemia: Yes Hx Human Immunodeficiency Virus (HIV): No - INTEGUMENTARY Hx Dermatological Problems: No - MUSCULOSKELETAL/RHEUMATOLOGICAL Hx Falls: No - GASTROINTESTINAL Hx Diverticulitis: Yes - GENITOURINARY/GYNECOLOGICAL Hx Genitourinary Disorders: No - PSYCHIATRIC Hx Substance Use: No - SURGICAL HISTORY Hx Appendectomy: Yes Hx Tonsillectomy: Yes - ANESTHESIA Hx Anesthesia: Yes Hx Anesthesia Reactions: No Hx Malignant Hyperthermia: No Meds Allergies/Adverse Reactions: Allergies Allergy/AdvReac Type Severity Reaction Status Date / Time No Known Allergies Allergy Verified 01/02/17 08:34 - Medications Medications: Current Medications Acetaminophen (Tylenol 325mg Tab) 650 mg PO Q4 PRN PRN Reason: for temp 100 and above Last Admin: 01/14/17 22:43 Dose: 650 mg Acetaminophen (Tylenol 325mg Tab) 650 mg PO Q6 PRN PRN Reason: Headache Last Admin: 01/16/17 05:20 Dose: 650 mg Alprazolam (Xanax) 0.5 mg PO HS [facility] Last Admin: 01/15/17 22:13 Dose: 0.5 mg Amlodipine Besylate (Norvasc) 5 mg PO DAILY [facility] Last Admin: 01/15/17 09:01 Dose: 5 mg Atorvastatin Calcium (Lipitor) 20 mg PO DAILY [facility] Last Admin: 01/16/17 08:48 Dose: 20 mg Calcitriol (Rocaltrol) 0.25 mcg PO Q48H [facility] Last Admin: 01/14/17 22:28 Dose: 0.25 mcg Calcium Acetate (Phoslo) 1,334 mg PO TID [facility] Last Admin: 01/16/17 08:47 Dose: 1,334 mg Hydralazine HCl (Apresoline) 25 mg PO BID [facility] Last Admin: 01/16/17 08:46 Dose: 25 mg Hydroxyzine HCl (Atarax) 25 mg PO TID [facility] Last Admin: 01/16/17 08:47 Dose: 25 mg Vancomycin HCl 500 mg/ Sodium (Chloride) 100 mls @ 100 mls/hr IVPB DAILY [facility] Last Admin: 01/16/17 09:04 Dose: 100 mls/hr Piperacillin Sod/Tazobactam (Sod 2.25 gm/ Sodium Chloride) 100 mls @ 100 mls/ hr IVPB Q6 [facility] Last Admin: 01/16/17 09:03 Dose: 100 mls/hr Ketorolac Tromethamine (Toradol) 15 mg IVP Q6 PRN PRN Reason: pain 6-10 Last Admin: 01/15/17 15:35 Dose: 15 mg Labetalol HCl (Trandate) 100 mg PO BID [facility] Last Admin: 01/15/17 17:27 Dose: 100 mg Lisinopril (Zestril) 5 mg PO DAILY [facility] Last Admin: 01/15/17 09:03 Dose: 5 mg Mirtazapine (Remeron) 7.5 mg PO HS [facility] Last Admin: 01/15/17 22:12 Dose: 7.5 mg Vitamin B Complex/Vit C/Folic Acid (Nephro-Valentino) 1 tab PO DAILY [facility] Last Admin: 01/16/17 08:48 Dose: 1 tab Results - Vital Signs Recent Vital Signs: Last Vital Signs Temp 98.1 F 01/16/17 08:13 Pulse 66 01/16/17 09:00 Resp 18 01/16/17 08:13 BP 144/53 L 01/16/17 08:46 Pulse Ox 97 01/16/17 08:13 - Labs Result Diagrams: 01/16/17 05:00 01/16/17 05:00 Labs: Laboratory Results - last 24 hr 01/15/17 01/16/17 01/16/17 16:28 05:00 05:00 WBC 6.0 RBC 3.13 L Hgb 9.0 L Hct 27.0 L MCV 86.1 MCH 28.8 MCHC 33.4 RDW 15.6 H Plt Count 81 L MPV 10.7 Neut % (Auto) 66.9 Lymph % (Auto) 14.2 L Mcduffie % (Auto) 14.0 H Eos % (Auto) 4.0 Baso % (Auto) 0.9 Neut # 4.0 Lymph # 0.9 L Mcduffie # 0.8 Eos # 0.2 Baso # 0.1 Sodium 134 Potassium 4.3 Chloride 102 Carbon Dioxide 21 L Anion Gap 15 BUN 71 H Creatinine 5.3 H Est GFR ( Amer) 9 Est GFR (Non-Af Amer) 8 Random Glucose 88 Calcium 8.9 Phosphorus 4.0 Total Bilirubin 0.8 AST 19 ALT 32 Alkaline Phosphatase 57 Total Protein 5.9 L Albumin 3.3 L Globulin 2.6 Albumin/Globulin Ratio 1.3
--- NOTE | 2017-01-16 14:32 | CP.PCM.PN ---
Subjective - Date & Time of Evaluation Date of Evaluation: 01/16/17 Time of Evaluation: 02:00 - Subjective Subjective: Currently on dialysis Comfortable Objective - Vital Signs/Intake and Output Vital Signs (last 24 hours): Temp Pulse Resp BP Pulse Ox 98.0 F 74 18 148/64 98 01/16/17 12:12 01/16/17 12:12 01/16/17 12:12 01/16/17 12:12 01/16/17 12:12 Intake and Output: 01/16/17 01/16/17 06:59 18:59 Intake Total 500 Balance 500 - Medications Medications: Current Medications Acetaminophen (Tylenol 325mg Tab) 650 mg PO Q4 PRN PRN Reason: for temp 100 and above Last Admin: 01/14/17 22:43 Dose: 650 mg Acetaminophen (Tylenol 325mg Tab) 650 mg PO Q6 PRN PRN Reason: Headache Last Admin: 01/16/17 05:20 Dose: 650 mg Alprazolam (Xanax) 0.5 mg PO HS [facility] Last Admin: 01/15/17 22:13 Dose: 0.5 mg Amlodipine Besylate (Norvasc) 5 mg PO DAILY [facility] Last Admin: 01/15/17 09:01 Dose: 5 mg Atorvastatin Calcium (Lipitor) 20 mg PO DAILY [facility] Last Admin: 01/16/17 08:48 Dose: 20 mg Calcitriol (Rocaltrol) 0.25 mcg PO Q48H [facility] Last Admin: 01/14/17 22:28 Dose: 0.25 mcg Calcium Acetate (Phoslo) 1,334 mg PO TID [facility] Last Admin: 01/16/17 12:55 Dose: 1,334 mg Hydralazine HCl (Apresoline) 25 mg PO BID [facility] Last Admin: 01/16/17 08:46 Dose: 25 mg Hydroxyzine HCl (Atarax) 25 mg PO TID [facility] Last Admin: 01/16/17 12:56 Dose: 25 mg Vancomycin HCl 500 mg/ Sodium (Chloride) 100 mls @ 100 mls/hr IVPB DAILY [facility] Last Admin: 01/16/17 09:04 Dose: 100 mls/hr Piperacillin Sod/Tazobactam (Sod 2.25 gm/ Sodium Chloride) 100 mls @ 100 mls/ hr IVPB Q6 [facility] Last Admin: 01/16/17 09:03 Dose: 100 mls/hr Ketorolac Tromethamine (Toradol) 15 mg IVP Q6 PRN PRN Reason: pain 6-10 Last Admin: 01/15/17 15:35 Dose: 15 mg Labetalol HCl (Trandate) 100 mg PO BID [facility] Last Admin: 01/15/17 17:27 Dose: 100 mg Lisinopril (Zestril) 5 mg PO DAILY [facility] Last Admin: 01/15/17 09:03 Dose: 5 mg Mirtazapine (Remeron) 7.5 mg PO HS [facility] Last Admin: 01/15/17 22:12 Dose: 7.5 mg Vitamin B Complex/Vit C/Folic Acid (Nephro-Valentino) 1 tab PO DAILY [facility] Last Admin: 01/16/17 08:48 Dose: 1 tab - Labs Labs: 01/16/17 05:00 01/16/17 05:00 PT 11.2 Seconds (9.8-13.1) 01/14/17 19:06 INR 1.0 (0.9-1.2) 01/14/17 19:06 APTT 28.2 Seconds (25.6-37.1) 01/14/17 19:06 - Respiratory Exam Additional comments: Lungs clear - Cardiovascular Exam Cardiovascular Exam: REGULAR RHYTHM - Extremities Exam Additional comments: No edema Assessment and Plan - Assessment and Plan (Free Text) Assessment: ESRD Gram neg bacteremia ,line infection HTN Plan: Continue HD per schedule Abx per ID Blood cultures are repeated from dialysis catheter
--- NOTE | 2017-01-17 08:02 | CP.PCM.PN ---
Subjective - Date & Time of Evaluation Date of Evaluation: 01/17/17 Time of Evaluation: 08:02 - Subjective Subjective: pt doing well, noc omplaints. no f/c, n/v/d. pending dc planning declared of capacity to make decisions. wants dialysis, anbx but no fabiana Objective - Vital Signs/Intake and Output Vital Signs (last 24 hours): Temp Pulse Resp BP Pulse Ox 97.6 F 73 18 188/75 H 97 01/17/17 05:12 01/17/17 05:12 01/17/17 05:12 01/17/17 05:12 01/17/17 05:12 Intake and Output: 01/17/17 01/17/17 06:59 18:59 Intake Total 620 Balance 620 - Medications Medications: Current Medications Acetaminophen (Tylenol 325mg Tab) 650 mg PO Q4 PRN PRN Reason: for temp 100 and above Last Admin: 01/14/17 22:43 Dose: 650 mg Acetaminophen (Tylenol 325mg Tab) 650 mg PO Q6 PRN PRN Reason: Headache Last Admin: 01/16/17 23:24 Dose: 650 mg Alprazolam (Xanax) 0.5 mg PO HS [facility] Last Admin: 01/16/17 21:10 Dose: 0.5 mg Amlodipine Besylate (Norvasc) 5 mg PO DAILY [facility] Last Admin: 01/16/17 16:25 Dose: 5 mg Atorvastatin Calcium (Lipitor) 20 mg PO DAILY [facility] Last Admin: 01/16/17 08:48 Dose: 20 mg Calcitriol (Rocaltrol) 0.25 mcg PO Q48H [facility] Last Admin: 01/16/17 21:08 Dose: 0.25 mcg Calcium Acetate (Phoslo) 1,334 mg PO TID [facility] Last Admin: 01/16/17 16:26 Dose: 1,334 mg Hydralazine HCl (Apresoline) 25 mg PO BID [facility] Last Admin: 01/16/17 16:25 Dose: 25 mg Hydroxyzine HCl (Atarax) 25 mg PO TID [facility] Last Admin: 01/16/17 16:29 Dose: 25 mg Vancomycin HCl 500 mg/ Sodium (Chloride) 100 mls @ 100 mls/hr IVPB DAILY [facility] Last Admin: 01/16/17 09:04 Dose: 100 mls/hr Piperacillin Sod/Tazobactam (Sod 2.25 gm/ Sodium Chloride) 100 mls @ 100 mls/ hr IVPB Q6 [facility] Last Admin: 01/17/17 04:00 Dose: 100 mls/hr Ketorolac Tromethamine (Toradol) 15 mg IVP Q6 PRN PRN Reason: pain 6-10 Last Admin: 01/16/17 16:18 Dose: 15 mg Labetalol HCl (Trandate) 100 mg PO BID [facility] Last Admin: 01/16/17 16:26 Dose: 100 mg Lisinopril (Zestril) 5 mg PO DAILY [facility] Last Admin: 01/16/17 16:27 Dose: 5 mg Mirtazapine (Remeron) 7.5 mg PO HS [facility] Last Admin: 01/16/17 21:08 Dose: 7.5 mg Vitamin B Complex/Vit C/Folic Acid (Nephro-Valentino) 1 tab PO DAILY [facility] Last Admin: 01/16/17 08:48 Dose: 1 tab - Labs Labs: 01/16/17 05:00 01/16/17 05:00 PT 11.2 Seconds (9.8-13.1) 01/14/17 19:06 INR 1.0 (0.9-1.2) 01/14/17 19:06 APTT 28.2 Seconds (25.6-37.1) 01/14/17 19:06 - Constitutional Appears: Well, Non-toxic, No Acute Distress - Head Exam Head Exam: ATRAUMATIC, NORMAL INSPECTION, NORMOCEPHALIC - Eye Exam Eye Exam: EOMI, Normal appearance, PERRL Pupil Exam: NORMAL ACCOMODATION, PERRL - ENT Exam ENT Exam: Mucous Membranes Moist, Normal Exam - Neck Exam Neck Exam: Full ROM, Normal Inspection. absent: Lymphadenopathy - Respiratory Exam Respiratory Exam: Clear to Ausculation Bilateral, NORMAL BREATHING PATTERN - Cardiovascular Exam Cardiovascular Exam: REGULAR RHYTHM, +S1, +S2. absent: Murmur - GI/Abdominal Exam GI & Abdominal Exam: Soft, Normal Bowel Sounds. absent: Tenderness - Extremities Exam Extremities Exam: Full ROM, Normal Capillary Refill, Normal Inspection. absent : Joint Swelling, Pedal Edema - Back Exam Back Exam: NORMAL INSPECTION - Neurological Exam Neurological Exam: Alert, Awake, CN II-XII Intact, Normal Gait, Oriented x3 - Psychiatric Exam Psychiatric exam: Normal Affect, Normal Mood - Skin Skin Exam: Dry, Intact, Normal Color, Warm Assessment and Plan (1) Right shoulder pain Status: Acute (2) Sepsis Status: Acute (3) End stage renal disease Status: Chronic (4) DVT prophylaxis Status: Acute - Assessment and Plan (Free Text) Assessment: (1) Right shoulder pain Assessment and Plan: tylenol imaging if worsens no further complaints Status: Acute (2) Sepsis Assessment and Plan: bacteremia appears to be source likely port source f/u c/s id consult will f/u c/s and decide proper anbx coverage vanc and zosyn-renally dosed fever contrl Status: Acute (3) End stage renal disease Assessment and Plan: cont m/f schedule bp control nephro consult Status: Chronic (4) DVT prophylaxis scd and aehose Status: Acute
[2017-01-17] MEDS: Multivitamin Vitamin B Complex (Nephro-Vite) Tab PO SCH (09:23)
[2017-01-17] MEDS ORDERED: Epoetin Alfa 4000 UNIT/ML Inj SC ONE (09:55)
--- NOTE | 2017-01-17 09:59 | CP.PCM.PN ---
Subjective - Date & Time of Evaluation Date of Evaluation: 01/17/17 Time of Evaluation: 09:57 - Subjective Subjective: Patient is awake and conscious She completed hemodialysis yesterday Temperature and vital signs stable Hemoglobin noted to be coming down I will add EPO one dose now then on dialysis after that Physical exam Chest no rales Heart no rubs Abdomen soft Extremity no edema Patient and plan Marty admitted with fever and blood culture still pending although the smear said the gram-negative kyler has not been finalized yet. Patient receiving vancomycin and Zosyn She appeared to be responding I added EPO for the anemia Continue hemodialysis for tomorrow Objective - Vital Signs/Intake and Output Vital Signs (last 24 hours): Temp Pulse Resp BP Pulse Ox 97.7 F 74 20 187/68 H 99 01/17/17 08:35 01/17/17 08:35 01/17/17 08:35 01/17/17 08:35 01/17/17 08:35 Intake and Output: 01/17/17 01/17/17 06:59 18:59 Intake Total 620 Balance 620 - Medications Medications: Current Medications Acetaminophen (Tylenol 325mg Tab) 650 mg PO Q4 PRN PRN Reason: for temp 100 and above Last Admin: 01/14/17 22:43 Dose: 650 mg Acetaminophen (Tylenol 325mg Tab) 650 mg PO Q6 PRN PRN Reason: Headache Last Admin: 01/16/17 23:24 Dose: 650 mg Alprazolam (Xanax) 0.5 mg PO HS [facility] Last Admin: 01/16/17 21:10 Dose: 0.5 mg Amlodipine Besylate (Norvasc) 5 mg PO DAILY [facility] Last Admin: 01/16/17 16:25 Dose: 5 mg Atorvastatin Calcium (Lipitor) 20 mg PO DAILY [facility] Last Admin: 01/16/17 08:48 Dose: 20 mg Calcitriol (Rocaltrol) 0.25 mcg PO Q48H [facility] Last Admin: 01/16/17 21:08 Dose: 0.25 mcg Calcium Acetate (Phoslo) 1,334 mg PO TID [facility] Last Admin: 01/16/17 16:26 Dose: 1,334 mg Epoetin Seth (Procrit) 8,000 unit SC ONCE ONE Stop: 01/17/17 09:56 Hydralazine HCl (Apresoline) 25 mg PO BID [facility] Last Admin: 01/16/17 16:25 Dose: 25 mg Hydroxyzine HCl (Atarax) 25 mg PO TID [facility] Last Admin: 01/16/17 16:29 Dose: 25 mg Vancomycin HCl 500 mg/ Sodium (Chloride) 100 mls @ 100 mls/hr IVPB DAILY [facility] Last Admin: 01/16/17 09:04 Dose: 100 mls/hr Piperacillin Sod/Tazobactam (Sod 2.25 gm/ Sodium Chloride) 100 mls @ 100 mls/ hr IVPB Q6 [facility] Last Admin: 01/17/17 04:00 Dose: 100 mls/hr Ketorolac Tromethamine (Toradol) 15 mg IVP Q6 PRN PRN Reason: pain 6-10 Last Admin: 01/16/17 16:18 Dose: 15 mg Labetalol HCl (Trandate) 100 mg PO BID [facility] Last Admin: 01/16/17 16:26 Dose: 100 mg Lisinopril (Zestril) 5 mg PO DAILY [facility] Last Admin: 01/16/17 16:27 Dose: 5 mg Mirtazapine (Remeron) 7.5 mg PO HS [facility] Last Admin: 01/16/17 21:08 Dose: 7.5 mg Vitamin B Complex/Vit C/Folic Acid (Nephro-Valentino) 1 tab PO DAILY [facility] Last Admin: 01/16/17 08:48 Dose: 1 tab - Labs Labs: 01/16/17 05:00 01/16/17 05:00 PT 11.2 Seconds (9.8-13.1) 01/14/17 19:06 INR 1.0 (0.9-1.2) 01/14/17 19:06 APTT 28.2 Seconds (25.6-37.1) 01/14/17 19:06 Assessment and Plan (1) Sepsis Status: Acute (2) Chronic kidney disease, stage V requiring chronic dialysis Status: Chronic
--- NOTE | 2017-01-17 14:15 | CP.PCM.PN ---
Subjective - Date & Time of Evaluation Date of Evaluation: 01/17/17 Time of Evaluation: 08:00 - Subjective Subjective: confused at times awake alert son at the bedside blood growing Gram neg rods may need catheter removal again consider echo if not done yet prognosis guarded Objective - Vital Signs/Intake and Output Vital Signs (last 24 hours): Temp Pulse Resp BP Pulse Ox 97.3 F L 78 20 166/56 H 99 01/17/17 12:38 01/17/17 12:38 01/17/17 12:38 01/17/17 12:38 01/17/17 12:38 Intake and Output: 01/17/17 01/17/17 06:59 18:59 Intake Total 620 Balance 620 - Medications Medications: Current Medications Acetaminophen (Tylenol 325mg Tab) 650 mg PO Q4 PRN PRN Reason: for temp 100 and above Last Admin: 01/14/17 22:43 Dose: 650 mg Acetaminophen (Tylenol 325mg Tab) 650 mg PO Q6 PRN PRN Reason: Headache Last Admin: 01/16/17 23:24 Dose: 650 mg Alprazolam (Xanax) 0.5 mg PO HS [facility] Last Admin: 01/16/17 21:10 Dose: 0.5 mg Amlodipine Besylate (Norvasc) 5 mg PO DAILY [facility] Last Admin: 01/16/17 16:25 Dose: 5 mg Atorvastatin Calcium (Lipitor) 20 mg PO DAILY [facility] Last Admin: 01/17/17 09:25 Dose: 20 mg Calcitriol (Rocaltrol) 0.25 mcg PO Q48H [facility] Last Admin: 01/16/17 21:08 Dose: 0.25 mcg Calcium Acetate (Phoslo) 1,334 mg PO TID [facility] Last Admin: 01/17/17 09:22 Dose: 1,334 mg Hydralazine HCl (Apresoline) 25 mg PO BID [facility] Last Admin: 01/17/17 09:25 Dose: 25 mg Hydroxyzine HCl (Atarax) 25 mg PO TID [facility] Last Admin: 01/17/17 09:23 Dose: 25 mg Vancomycin HCl 500 mg/ Sodium (Chloride) 100 mls @ 100 mls/hr IVPB DAILY [facility] Last Admin: 01/17/17 09:01 Dose: 100 mls/hr Piperacillin Sod/Tazobactam (Sod 2.25 gm/ Sodium Chloride) 100 mls @ 100 mls/ hr IVPB Q6 [facility] Last Admin: 01/17/17 10:00 Dose: 100 mls/hr Ketorolac Tromethamine (Toradol) 15 mg IVP Q6 PRN PRN Reason: pain 6-10 Last Admin: 01/16/17 16:18 Dose: 15 mg Labetalol HCl (Trandate) 100 mg PO BID [facility] Last Admin: 01/17/17 09:27 Dose: 100 mg Lisinopril (Zestril) 5 mg PO DAILY [facility] Last Admin: 01/17/17 09:24 Dose: 5 mg Mirtazapine (Remeron) 7.5 mg PO HS [facility] Last Admin: 01/16/17 21:08 Dose: 7.5 mg Vitamin B Complex/Vit C/Folic Acid (Nephro-Valentino) 1 tab PO DAILY [facility] Last Admin: 01/17/17 09:23 Dose: 1 tab - Labs Labs: 01/16/17 05:00 01/16/17 05:00 PT 11.2 Seconds (9.8-13.1) 01/14/17 19:06 INR 1.0 (0.9-1.2) 01/14/17 19:06 APTT 28.2 Seconds (25.6-37.1) 01/14/17 19:06 - Constitutional Appears: Non-toxic, Confused, Chronically Ill - Head Exam Head Exam: NORMOCEPHALIC - Eye Exam Eye Exam: PERRL. absent: Scleral icterus - ENT Exam ENT Exam: Mucous Membranes Dry - Neck Exam Neck Exam: absent: Lymphadenopathy - Respiratory Exam Respiratory Exam: Decreased Breath Sounds, Clear to Ausculation Bilateral - Cardiovascular Exam Cardiovascular Exam: REGULAR RHYTHM, +S1, +S2 - GI/Abdominal Exam GI & Abdominal Exam: Distended, Soft. absent: Tenderness - Exam Exam: NORMAL INSPECTION - Extremities Exam Extremities Exam: absent: Calf Tenderness, Pedal Edema - Back Exam Back Exam: absent: CVA tenderness (L), CVA tenderness (R) - Neurological Exam Neurological Exam: Alert, Awake. absent: Oriented x3 - Psychiatric Exam Psychiatric exam: Normal Mood Assessment and Plan (1) Sepsis Status: Acute (2) End stage renal disease Status: Chronic - Assessment and Plan (Free Text) Assessment: gram neg sepsis- source unclear may need HD cath removal / replacement ??? cont zosyn/ genta
--- NOTE | 2017-01-18 07:50 | CP.PCM.PN ---
Subjective - Date & Time of Evaluation Date of Evaluation: 01/18/17 Time of Evaluation: 07:49 - Subjective Subjective: pt waqs very confused yesterday eveneing. redirected by son. at present calm and cooeprative. able to verbalize reasons for staying in hospital. penign final c/s and echo. no chest, head pain. c/o diffuse body aches Objective - Vital Signs/Intake and Output Vital Signs (last 24 hours): Temp Pulse Resp BP Pulse Ox 98.0 F 82 20 180/69 H 96 01/18/17 07:48 01/18/17 07:48 01/18/17 07:48 01/18/17 07:48 01/18/17 07:48 Intake and Output: 01/18/17 01/18/17 06:59 18:59 Intake Total 600 Balance 600 - Medications Medications: Current Medications Acetaminophen (Tylenol 325mg Tab) 650 mg PO Q4 PRN PRN Reason: for temp 100 and above Last Admin: 01/14/17 22:43 Dose: 650 mg Acetaminophen (Tylenol 325mg Tab) 650 mg PO Q6 PRN PRN Reason: Headache Last Admin: 01/17/17 21:20 Dose: 650 mg Alprazolam (Xanax) 0.5 mg PO HS [facility] Last Admin: 01/17/17 21:21 Dose: 0.5 mg Amlodipine Besylate (Norvasc) 5 mg PO DAILY [facility] Last Admin: 01/17/17 09:23 Dose: 5 mg Atorvastatin Calcium (Lipitor) 20 mg PO DAILY [facility] Last Admin: 01/17/17 09:25 Dose: 20 mg Calcitriol (Rocaltrol) 0.25 mcg PO Q48H [facility] Last Admin: 01/16/17 21:08 Dose: 0.25 mcg Calcium Acetate (Phoslo) 1,334 mg PO TID [facility] Last Admin: 01/17/17 16:28 Dose: 1,334 mg Hydralazine HCl (Apresoline) 25 mg PO BID [facility] Last Admin: 01/17/17 16:28 Dose: 25 mg Hydroxyzine HCl (Atarax) 25 mg PO TID [facility] Last Admin: 01/17/17 16:28 Dose: 25 mg Piperacillin Sod/Tazobactam (Sod 2.25 gm/ Sodium Chloride) 100 mls @ 100 mls/ hr IVPB Q6 [facility] Last Admin: 01/18/17 05:00 Dose: 100 mls/hr Gentamicin Sulfate/Sodium Chloride (Gentamicin 80mg/50ml Ns) 80 mg in 50 mls @ 50 mls/hr IVPB MWF [facility] Ketorolac Tromethamine (Toradol) 15 mg IVP Q6 PRN PRN Reason: pain 6-10 Last Admin: 01/16/17 16:18 Dose: 15 mg Labetalol HCl (Trandate) 100 mg PO BID [facility] Last Admin: 01/17/17 17:12 Dose: 100 mg Lisinopril (Zestril) 5 mg PO DAILY [facility] Last Admin: 01/17/17 09:24 Dose: 5 mg Mirtazapine (Remeron) 7.5 mg PO HS [facility] Last Admin: 01/17/17 21:21 Dose: 7.5 mg Vitamin B Complex/Vit C/Folic Acid (Nephro-Valentino) 1 tab PO DAILY [facility] Last Admin: 01/17/17 09:23 Dose: 1 tab - Labs Labs: 01/16/17 05:00 01/16/17 05:00 PT 11.2 Seconds (9.8-13.1) 01/14/17 19:06 INR 1.0 (0.9-1.2) 01/14/17 19:06 APTT 28.2 Seconds (25.6-37.1) 01/14/17 19:06 - Constitutional Appears: Well, Non-toxic, No Acute Distress - Head Exam Head Exam: ATRAUMATIC, NORMAL INSPECTION, NORMOCEPHALIC - Eye Exam Eye Exam: EOMI, Normal appearance, PERRL Pupil Exam: NORMAL ACCOMODATION, PERRL - ENT Exam ENT Exam: Mucous Membranes Moist, Normal Exam - Neck Exam Neck Exam: Full ROM, Normal Inspection. absent: Lymphadenopathy - Respiratory Exam Respiratory Exam: Clear to Ausculation Bilateral, NORMAL BREATHING PATTERN - Cardiovascular Exam Cardiovascular Exam: REGULAR RHYTHM, RRR, +S1, +S2. absent: Murmur - GI/Abdominal Exam GI & Abdominal Exam: Soft, Normal Bowel Sounds. absent: Tenderness - Extremities Exam Extremities Exam: Full ROM, Normal Capillary Refill, Normal Inspection. absent : Joint Swelling, Pedal Edema - Back Exam Back Exam: NORMAL INSPECTION - Neurological Exam Neurological Exam: Alert, Awake, CN II-XII Intact, Normal Gait, Oriented x3 - Psychiatric Exam Psychiatric exam: Normal Affect, Normal Mood - Skin Skin Exam: Dry, Intact, Normal Color, Warm Assessment and Plan (1) Right shoulder pain Assessment & Plan: chronic, tylenol/toradol prn Status: Acute (2) Sepsis Assessment & Plan: cont vanco/gent echo id consult pending final c/s and id of species Status: Acute (3) End stage renal disease Assessment & Plan: nephro, dialysis monitor closely Status: Chronic (4) DVT prophylaxis Assessment & Plan: scd and ae hose lovenox Status: Acute
[2017-01-18] MEDS: Multivitamin Vitamin B Complex (Nephro-Vite) Tab PO SCH (08:51)
--- NOTE | 2017-01-18 10:36 | CP.PCM.PN ---
Subjective - Date & Time of Evaluation Date of Evaluation: 01/18/17 Time of Evaluation: 10:34 - Subjective Subjective: Patient is out of bed feels good no chest pain no shortness of breath Patient was refusing to have dialysis today however I talked to her a lot and she appeared to agree now Objective - Vital Signs/Intake and Output Vital Signs (last 24 hours): Temp Pulse Resp BP Pulse Ox 98.0 F 82 20 180/69 H 96 01/18/17 07:48 01/18/17 08:53 01/18/17 07:48 01/18/17 08:53 01/18/17 07:48 Intake and Output: 01/18/17 01/18/17 06:59 18:59 Intake Total 600 Balance 600 - Medications Medications: Current Medications Acetaminophen (Tylenol 325mg Tab) 650 mg PO Q4 PRN PRN Reason: for temp 100 and above Last Admin: 01/14/17 22:43 Dose: 650 mg Acetaminophen (Tylenol 325mg Tab) 650 mg PO Q6 PRN PRN Reason: Headache Last Admin: 01/17/17 21:20 Dose: 650 mg Alprazolam (Xanax) 0.5 mg PO HS [facility] Last Admin: 01/17/17 21:21 Dose: 0.5 mg Amlodipine Besylate (Norvasc) 5 mg PO DAILY [facility] Last Admin: 01/18/17 08:53 Dose: 5 mg Atorvastatin Calcium (Lipitor) 20 mg PO DAILY [facility] Last Admin: 01/18/17 08:52 Dose: 20 mg Calcitriol (Rocaltrol) 0.25 mcg PO Q48H [facility] Last Admin: 01/16/17 21:08 Dose: 0.25 mcg Calcium Acetate (Phoslo) 1,334 mg PO TID [facility] Last Admin: 01/18/17 08:51 Dose: 1,334 mg Enoxaparin Sodium (Lovenox) 40 mg SC DAILY [facility] PRN Reason: Protocol Hydralazine HCl (Apresoline) 25 mg PO BID [facility] Last Admin: 01/18/17 08:52 Dose: 25 mg Hydroxyzine HCl (Atarax) 25 mg PO TID [facility] Last Admin: 01/18/17 08:51 Dose: 25 mg Piperacillin Sod/Tazobactam (Sod 2.25 gm/ Sodium Chloride) 100 mls @ 100 mls/ hr IVPB Q6 [facility] Last Admin: 01/18/17 10:25 Dose: 100 mls/hr Gentamicin Sulfate/Sodium Chloride (Gentamicin 80mg/50ml Ns) 80 mg in 50 mls @ 50 mls/hr IVPB MWF [facility] Ketorolac Tromethamine (Toradol) 15 mg IVP Q6 PRN PRN Reason: pain 6-10 Last Admin: 01/16/17 16:18 Dose: 15 mg Labetalol HCl (Trandate) 100 mg PO BID [facility] Last Admin: 01/18/17 08:52 Dose: 100 mg Lisinopril (Zestril) 5 mg PO DAILY [facility] Last Admin: 01/18/17 08:51 Dose: 5 mg Mirtazapine (Remeron) 7.5 mg PO HS [facility] Last Admin: 01/17/17 21:21 Dose: 7.5 mg Vitamin B Complex/Vit C/Folic Acid (Nephro-Valentino) 1 tab PO DAILY [facility] Last Admin: 01/18/17 08:51 Dose: 1 tab - Labs Labs: 01/16/17 05:00 01/16/17 05:00 PT 11.2 Seconds (9.8-13.1) 01/14/17 19:06 INR 1.0 (0.9-1.2) 01/14/17 19:06 APTT 28.2 Seconds (25.6-37.1) 01/14/17 19:06 - Constitutional Appears: No Acute Distress - ENT Exam ENT Exam: Mucous Membranes Moist - Respiratory Exam Respiratory Exam: absent: Chest Wall Tenderness - Cardiovascular Exam Cardiovascular Exam: REGULAR RHYTHM. absent: Rubs - GI/Abdominal Exam GI & Abdominal Exam: Bruit, Firm, Guarding, Soft, Tenderness, Diminished Bowel Sounds, Hernia, Hyperactive Bowel Sounds, Hypoactive Bowel Sounds, Normal Bowel Sounds, Organomegaly, Pulsatile Mass, Rebound, Mass - Extremities Exam Extremities Exam: absent: Calf Tenderness - Back Exam Back Exam: absent: CVA tenderness (L), CVA tenderness (R) - Neurological Exam Neurological Exam: Alert Assessment and Plan (1) Sepsis Status: Acute (2) Chronic kidney disease, stage V requiring chronic dialysis Assessment & Plan: Patient with end stage renal disease admitted with fever and sepsis. Blood culture grew gram-negative kyler however no sensitivity yet. Patient receiving gentamicin and Zosyn We will continue gentamicin as outpatient at the dialysis center for period of 2 weeks Waiting for sensitivity and identification of the gram-negative kyler Hemodialysis for 3 hours Potassium bath 2 mEq Sodium bath 138 Bicarbonate bath 34 Ultrafiltration about 800 mL as tolerated Continue monitoring Status: Chronic
[2017-01-18] MEDS: Enoxaparin 40 mg Syringe SC SCH (11:25)
--- NOTE | 2017-01-18 11:32 | CARD ---
APPROVED REPORT EXAM: Two-dimensional and M-mode echocardiogram with Doppler and color Doppler. Other Information Quality : GoodRhythm : NSR INDICATION Infection:Subacute bacterial endocarditis 2D DIMENSIONS IVSd1.07 (0.7-1.1cm)LVDd5.20 (3.9-5.9cm) LVOT Diameter1.75 (1.8-2.4cm)PWd1.21 (0.7-1.1cm) IVSs1.28 (0.8-1.2cm)LVDs3.89 (2.5-4.0cm) FS (%) 25.3 %PWs1.82 (0.8-1.2cm) M-Mode DIMENSIONS Left Atrium (MM)4.93 (2.5-4.0cm)IVSd0.73 (0.7-1.1cm) Aortic Root2.85 (2.2-3.7cm)LVDd6.78 (4.0-5.6cm) Aortic Cusp Exc.1.19 (1.5-2.0cm)PWd0.86 (0.7-1.1cm) IVSs1.39 cmFS (%) 37 % LVDs4.30 (2.0-3.8cm)PWs1.32 cm Aortic Valve AoV Peak Bymxodlp768.5cm/sAoV VTI55.5cmAO Peak GR.23mmHg LVOT Peak Jzicgmdk752.3cm/sLVOT VTI31.85cmAO Mean GR.14mmHg EVAN (VMAX)0.87yi8CFP (VTI)0.85cm2 Mitral Valve MV E Udhwjowe847.8cm/sMV DECEL [id number] A Wcfjbkzn314.5cm/s MV QPI23ioC/A ratio1.1MVA (PHT)5.02cm2 TDI Lateral E' Peak V10.46cm/sMedial E' Peak V10.76cm/sE/Lateral E'15.4 E/Medial E'14.9 LEFT VENTRICLE The left ventricle is normal size. There is mild concentric left ventricular hypertrophy. The left ventricular function is normal. The left ventricular ejection fraction is within the normal range. The Ejection Fraction is 65-70%. There is normal LV segmental wall motion. The left ventricular diastolic function is normal. No left ventricle thrombus noted on this study. There is no mass noted in the left ventricle. RIGHT VENTRICLE The right ventricle is normal size. There is normal right ventricular wall thickness. The right ventricular systolic function is normal. ATRIA The left atrium is mildly dilated. The right atrium size is normal. The interatrial septum is intact with no evidence for an atrial septal defect. AORTIC VALVE The aortic valve is mildly sclerotic. No aortic regurgitation is present. There is moderate valvular aortic stenosis. Calculated aortic valve area is cm2 with maximum pressure gradient of 23 mmHg and mean pressure gradient of 14 mmHg. There is no aortic valvular vegetation. MITRAL VALVE The mitral valve is normal in structure and function. There is no evidence of mitral valve prolapse. There is no mitral valve stenosis. Mitral regurgitation is mild. TRICUSPID VALVE The tricuspid valve is normal in structure and function. There is mild tricuspid regurgitation. There is no tricuspid valve prolapse or vegetation. There is no tricuspid valve stenosis. PULMONIC VALVE The pulmonary valve is normal in structure and function. There is no pulmonic valvular regurgitation. There is no pulmonic valvular stenosis. GREAT VESSELS The aortic root is normal in size. The IVC is normal in size and collapses >50% with inspiration. PERICARDIAL EFFUSION The pericardium appears normal. There is no pleural effusion. <Conclusion> The left atrium is mildly dilated. The left ventricle is normal size. There is mild concentric left ventricular hypertrophy. The left ventricular function is normal. The left ventricular ejection fraction is within the normal range. The Ejection Fraction is 65-70%. There is moderate valvular aortic stenosis. Calculated aortic valve area is cm2 with maximum pressure gradient of 23 mmHg and mean pressure gradient of 14 mmHg. Mitral regurgitation is mild. There is mild tricuspid regurgitation.
--- NOTE | 2017-01-18 20:38 | CT ---
EXAM: CT Chest Without Intravenous Contrast CLINICAL HISTORY: 76 years old, female; Signs and symptoms; Fever and shortness of breath; Additional info: R/O infiltrate, sepsis, bacteremia. Sent lab report from 01-16-2017 TECHNIQUE: Axial computed tomography images of the chest without intravenous contrast. This CT exam was performed using one or more of the following dose reduction techniques: automated exposure control, adjustment of the mA and/or kV according to patient size, and/or use of iterative reconstruction technique. Coronal and sagittal reformatted images were created and reviewed. EXAM DATE/TIME: 01/18/2017 6:30 PM COMPARISON: Prior chest radiographs of 01/14/2017 FINDINGS: LUNGS: Findings suspicious for mild/early pulmonary vascular congestion. There is mild, bilateral smooth interlobular septal thickening, greatest in the lung apices and lung bases. Small area of dense consolidation with rounded lateral margins is seen in the left lower lobe medially, associated with air bronchograms, abutting the descending thoracic aorta on the left. This appears associated with mild volume loss/fissural retraction, and it could represent round atelectasis/scarring versus a small pneumonia. Patent large airways. PLEURAL SPACE: Very small bilateral pleural effusions. No pneumothorax is seen. HEART: Heart appears moderately enlarged. Coronary artery calcification. No evidence of significant pericardial effusion. MEDIASTINUM: Small hiatal hernia. BONES/JOINTS: No acute fractures or other acute bony abnormality noted. SOFT TISSUES: Mild soft tissue edema is seen in the right supraclavicular soft tissues, near the subcutaneous portion of the hemodialysis catheter. This is most likely related to catheter placement. There is no soft tissue abscess or gas identified. VASCULATURE: Exam is nondiagnostic for aortic dissection and pulmonary emboli, secondary to unenhanced technique. Extensive atherosclerotic calcification. LYMPH NODES: No evidence of diffuse lymphadenopathy. KIDNEYS AND URETERS: Low-density lesion in the left kidney, incompletely seen on this exam, not definitely a simple cyst given its density.Recommend follow-up renal ultrasound or renal protocol CT for further evaluation, on a nonemergent basis, unless otherwise clinically indicated. TUBES, LINES AND DEVICES: Hemodialysis catheter in place, which terminates in the right atrium. IMPRESSION: - Findings suspicious for mild/early pulmonary vascular congestion. - Very small bilateral pleural effusions. - Round atelectasis/scarring versus a small pneumonia in the left lower lobe medially. - Otherwise, no evidence of significant acute process on this unenhanced exam. - Cardiomegaly. - Incidental indeterminate left renal lesion. See above. - See above for remaining findings.
[2017-01-19 06:25] LABS: BASO # 0.1 K/uL (0.0-0.2); BASO % 1.9 % (0.0-2.0); EOS # 0.6 K/uL (0.0-0.7); EOS % 13.7 % (0.0-4.0); HEMOGLOBIN 9.1 g/dL (12.0-16.0); LYMPH # 1.4 K/uL (1.0-4.3); LYMPH % 30.5 % (20.0-40.0); MEAN CELL VOLUME 85.4 fl (81.0-99.0); MEAN CORPUSCULAR HEMOGLOBIN 28.7 pg (27.0-31.0); MEAN CORPUSCULAR HGB CONC 33.6 g/dL (33.0-37.0); MEAN PLATELET VOLUME 10.4 fl (7.2-11.7); MONO # 0.8 K/uL (0.0-0.8); MONO % 17.6 % (0.0-10.0); NEUT # 1.7 K/uL (1.8-7.0); NEUT % 36.3 % (50.0-75.0); NRBC % 0.1 % (0.0-0.0); RBC 3.17 Mil/uL (3.80-5.20); RED CELL DISTRIBUTION WIDTH 15.5 % (11.5-14.5); WHITE BLOOD COUNT 4.7 K/uL (4.8-10.8)
[2017-01-19 06:51] LABS: CALCIUM 8.4 mg/dL (8.4-10.2)
[2017-01-19] MEDS ORDERED: Gentamicin 80mg/50ml NS 80 MG/50 ML BAG IVPB SCH (09:00)
--- NOTE | 2017-01-19 09:56 | CP.PCM.PN ---
Subjective - Date & Time of Evaluation Date of Evaluation: 01/19/17 Time of Evaluation: 09:56 - Subjective Subjective: ding well no complaints. no f/c, n/v/d. no cough. ct and echo reports noted. pending id and nephro for dc. ?? need to change dialysis access per id prior to dc Objective - Vital Signs/Intake and Output Vital Signs (last 24 hours): Temp Pulse Resp BP Pulse Ox 98.6 F 80 18 176/66 H 97 01/19/17 08:00 01/19/17 08:00 01/19/17 08:00 01/19/17 08:00 01/19/17 08:00 - Medications Medications: Current Medications Acetaminophen (Tylenol 325mg Tab) 650 mg PO Q4 PRN PRN Reason: for temp 100 and above Last Admin: 01/14/17 22:43 Dose: 650 mg Acetaminophen (Tylenol 325mg Tab) 650 mg PO Q6 PRN PRN Reason: Headache Last Admin: 01/17/17 21:20 Dose: 650 mg Alprazolam (Xanax) 0.5 mg PO Q12 PRN PRN Reason: Agitation Last Admin: 01/18/17 16:19 Dose: 0.5 mg Amlodipine Besylate (Norvasc) 5 mg PO DAILY [facility] Last Admin: 01/18/17 08:53 Dose: 5 mg Atorvastatin Calcium (Lipitor) 20 mg PO DAILY [facility] Last Admin: 01/18/17 08:52 Dose: 20 mg Calcitriol (Rocaltrol) 0.25 mcg PO Q48H [facility] Last Admin: 01/18/17 22:02 Dose: 0.25 mcg Calcium Acetate (Phoslo) 1,334 mg PO TID [facility] Last Admin: 01/18/17 16:21 Dose: 1,334 mg Enoxaparin Sodium (Lovenox) 40 mg SC DAILY [facility] PRN Reason: Protocol Last Admin: 01/18/17 11:25 Dose: Not Given Hydralazine HCl (Apresoline) 25 mg PO TID [facility] Last Admin: 01/18/17 16:20 Dose: 25 mg Hydroxyzine HCl (Atarax) 25 mg PO TID [facility] Last Admin: 01/18/17 16:21 Dose: 25 mg Piperacillin Sod/Tazobactam (Sod 2.25 gm/ Sodium Chloride) 100 mls @ 100 mls/ hr IVPB Q6 [facility] Last Admin: 01/19/17 04:35 Dose: 100 mls/hr Gentamicin Sulfate/Sodium Chloride (Gentamicin 80mg/50ml Ns) 80 mg in 50 mls @ 50 mls/hr IVPB MWF [facility] Ketorolac Tromethamine (Toradol) 15 mg IVP Q6 PRN PRN Reason: pain 6-10 Last Admin: 01/18/17 21:01 Dose: 15 mg Labetalol HCl (Trandate) 100 mg PO BID [facility] Last Admin: 01/18/17 16:22 Dose: 100 mg Lisinopril (Zestril) 5 mg PO DAILY [facility] Last Admin: 01/18/17 08:51 Dose: 5 mg Mirtazapine (Remeron) 7.5 mg PO HS [facility] Last Admin: 01/18/17 22:55 Dose: 7.5 mg Vitamin B Complex/Vit C/Folic Acid (Nephro-Valentino) 1 tab PO DAILY [facility] Last Admin: 01/18/17 08:51 Dose: 1 tab - Labs Labs: 01/19/17 05:00 01/19/17 05:00 PT 11.2 Seconds (9.8-13.1) 01/14/17 19:06 INR 1.0 (0.9-1.2) 01/14/17 19:06 APTT 28.2 Seconds (25.6-37.1) 01/14/17 19:06 - Constitutional Appears: Well, Non-toxic, No Acute Distress - Head Exam Head Exam: ATRAUMATIC, NORMAL INSPECTION, NORMOCEPHALIC - Eye Exam Eye Exam: EOMI, Normal appearance, PERRL Pupil Exam: NORMAL ACCOMODATION, PERRL - ENT Exam ENT Exam: Mucous Membranes Moist, Normal Exam - Neck Exam Neck Exam: Full ROM, Normal Inspection. absent: Lymphadenopathy - Respiratory Exam Respiratory Exam: Clear to Ausculation Bilateral, NORMAL BREATHING PATTERN - Cardiovascular Exam Cardiovascular Exam: REGULAR RHYTHM, RRR, +S1, +S2. absent: Murmur - GI/Abdominal Exam GI & Abdominal Exam: Soft, Normal Bowel Sounds. absent: Tenderness - Extremities Exam Extremities Exam: Full ROM, Normal Capillary Refill, Normal Inspection. absent : Joint Swelling, Pedal Edema - Back Exam Back Exam: NORMAL INSPECTION - Neurological Exam Neurological Exam: Alert, Awake, CN II-XII Intact, Normal Gait, Oriented x3 - Psychiatric Exam Psychiatric exam: Normal Affect, Normal Mood - Skin Skin Exam: Dry, Intact, Normal Color, Warm Assessment and Plan (1) Right shoulder pain Status: Acute (2) Sepsis Assessment & Plan: per id can dc home on po cipro f/u outpt Status: Acute (3) End stage renal disease Assessment & Plan: cont dialysis schedule Status: Chronic (4) DVT prophylaxis Assessment & Plan: scd and ae hose ambulation Status: Acute
[2017-01-19] MEDS: Enoxaparin 40 mg Syringe SC SCH (10:12)
[2017-01-19] MEDS: Multivitamin Vitamin B Complex (Nephro-Vite) Tab PO SCH (10:14)
--- NOTE | 2017-01-19 13:00 | CP.PCM.PN ---
Subjective - Date & Time of Evaluation Date of Evaluation: 01/19/17 Time of Evaluation: 12:57 - Subjective Subjective: Patient is out of bed Feels good she is eating her lunch No nausea no vomiting Appetite is good Completed hemodialysis yesterday Objective - Vital Signs/Intake and Output Vital Signs (last 24 hours): Temp Pulse Resp BP Pulse Ox 98.9 F 79 20 158/54 H 97 01/19/17 12:00 01/19/17 12:00 01/19/17 12:00 01/19/17 12:00 01/19/17 12:00 - Medications Medications: Current Medications Acetaminophen (Tylenol 325mg Tab) 650 mg PO Q4 PRN PRN Reason: for temp 100 and above Last Admin: 01/14/17 22:43 Dose: 650 mg Acetaminophen (Tylenol 325mg Tab) 650 mg PO Q6 PRN PRN Reason: Headache Last Admin: 01/17/17 21:20 Dose: 650 mg Alprazolam (Xanax) 0.5 mg PO Q12 PRN PRN Reason: Agitation Last Admin: 01/18/17 16:19 Dose: 0.5 mg Amlodipine Besylate (Norvasc) 5 mg PO DAILY [facility] Last Admin: 01/19/17 10:15 Dose: 5 mg Atorvastatin Calcium (Lipitor) 20 mg PO DAILY [facility] Last Admin: 01/19/17 10:12 Dose: 20 mg Calcitriol (Rocaltrol) 0.25 mcg PO Q48H [facility] Last Admin: 01/18/17 22:02 Dose: 0.25 mcg Calcium Acetate (Phoslo) 1,334 mg PO TID [facility] Last Admin: 01/19/17 10:12 Dose: 1,334 mg Enoxaparin Sodium (Lovenox) 40 mg SC DAILY [facility] PRN Reason: Protocol Last Admin: 01/19/17 10:12 Dose: 40 mg Hydralazine HCl (Apresoline) 25 mg PO TID [facility] Last Admin: 01/19/17 10:15 Dose: 25 mg Hydroxyzine HCl (Atarax) 25 mg PO TID [facility] Last Admin: 01/19/17 10:16 Dose: 25 mg Piperacillin Sod/Tazobactam (Sod 2.25 gm/ Sodium Chloride) 100 mls @ 100 mls/ hr IVPB Q6 [facility] Last Admin: 01/19/17 10:27 Dose: 100 mls/hr Gentamicin Sulfate/Sodium Chloride (Gentamicin 80mg/50ml Ns) 80 mg in 50 mls @ 50 mls/hr IVPB MWF [facility] Last Admin: 01/19/17 10:29 Dose: 50 mls/hr Ketorolac Tromethamine (Toradol) 15 mg IVP Q6 PRN PRN Reason: pain 6-10 Last Admin: 01/18/17 21:01 Dose: 15 mg Labetalol HCl (Trandate) 100 mg PO BID [facility] Last Admin: 01/19/17 10:14 Dose: 100 mg Lisinopril (Zestril) 5 mg PO DAILY [facility] Last Admin: 01/19/17 10:16 Dose: 5 mg Mirtazapine (Remeron) 7.5 mg PO HS [facility] Last Admin: 01/18/17 22:55 Dose: 7.5 mg Vitamin B Complex/Vit C/Folic Acid (Nephro-Valentino) 1 tab PO DAILY [facility] Last Admin: 01/19/17 10:14 Dose: 1 tab - Labs Labs: 01/19/17 05:00 01/19/17 05:00 PT 11.2 Seconds (9.8-13.1) 01/14/17 19:06 INR 1.0 (0.9-1.2) 01/14/17 19:06 APTT 28.2 Seconds (25.6-37.1) 01/14/17 19:06 - Constitutional Appears: No Acute Distress - ENT Exam ENT Exam: Mucous Membranes Moist - Respiratory Exam Respiratory Exam: NORMAL BREATHING PATTERN. absent: Chest Wall Tenderness - Cardiovascular Exam Cardiovascular Exam: absent: Rubs - GI/Abdominal Exam GI & Abdominal Exam: Normal Bowel Sounds - Extremities Exam Extremities Exam: absent: Calf Tenderness - Back Exam Back Exam: absent: CVA tenderness (L), CVA tenderness (R) - Neurological Exam Neurological Exam: Alert Assessment and Plan (1) Sepsis Status: Acute (2) Chronic kidney disease, stage V requiring chronic dialysis Assessment & Plan: Patient appeared to be recovering from sepsis repeat blood culture negative Blood culture was Haemophilus see the detailed Discuss with infectious disease and decided to continue with the oral antibiotics I believe as recommended and monitor the patient for now since she responded very well to the treatment Patient to have outpatient dialysis Status: Chronic
--- NOTE | 2017-01-19 13:23 | CP.PCM.PN ---
Subjective - Date & Time of Evaluation Date of Evaluation: 01/19/17 Time of Evaluation: 05:00 - Subjective Subjective: doing well afebrile nad Objective - Vital Signs/Intake and Output Vital Signs (last 24 hours): Temp Pulse Resp BP Pulse Ox 98.9 F 79 20 158/84 H 97 01/19/17 12:00 01/19/17 13:02 01/19/17 12:00 01/19/17 13:02 01/19/17 12:00 - Medications Medications: Current Medications Acetaminophen (Tylenol 325mg Tab) 650 mg PO Q4 PRN PRN Reason: for temp 100 and above Last Admin: 01/14/17 22:43 Dose: 650 mg Acetaminophen (Tylenol 325mg Tab) 650 mg PO Q6 PRN PRN Reason: Headache Last Admin: 01/17/17 21:20 Dose: 650 mg Alprazolam (Xanax) 0.5 mg PO Q12 PRN PRN Reason: Agitation Last Admin: 01/18/17 16:19 Dose: 0.5 mg Amlodipine Besylate (Norvasc) 5 mg PO DAILY [facility] Last Admin: 01/19/17 10:15 Dose: 5 mg Atorvastatin Calcium (Lipitor) 20 mg PO DAILY [facility] Last Admin: 01/19/17 10:12 Dose: 20 mg Calcitriol (Rocaltrol) 0.25 mcg PO Q48H [facility] Last Admin: 01/18/17 22:02 Dose: 0.25 mcg Calcium Acetate (Phoslo) 1,334 mg PO TID [facility] Last Admin: 01/19/17 13:02 Dose: 1,334 mg Enoxaparin Sodium (Lovenox) 40 mg SC DAILY [facility] PRN Reason: Protocol Last Admin: 01/19/17 10:12 Dose: 40 mg Hydralazine HCl (Apresoline) 25 mg PO TID [facility] Last Admin: 01/19/17 13:02 Dose: 25 mg Hydroxyzine HCl (Atarax) 25 mg PO TID [facility] Last Admin: 01/19/17 13:01 Dose: 25 mg Piperacillin Sod/Tazobactam (Sod 2.25 gm/ Sodium Chloride) 100 mls @ 100 mls/ hr IVPB Q6 [facility] Last Admin: 01/19/17 10:27 Dose: 100 mls/hr Gentamicin Sulfate/Sodium Chloride (Gentamicin 80mg/50ml Ns) 80 mg in 50 mls @ 50 mls/hr IVPB MWF [facility] Last Admin: 01/19/17 10:29 Dose: 50 mls/hr Ketorolac Tromethamine (Toradol) 15 mg IVP Q6 PRN PRN Reason: pain 6-10 Last Admin: 01/18/17 21:01 Dose: 15 mg Labetalol HCl (Trandate) 100 mg PO BID [facility] Last Admin: 01/19/17 10:14 Dose: 100 mg Lisinopril (Zestril) 5 mg PO DAILY [facility] Last Admin: 01/19/17 10:16 Dose: 5 mg Mirtazapine (Remeron) 7.5 mg PO HS [facility] Last Admin: 01/18/17 22:55 Dose: 7.5 mg Vitamin B Complex/Vit C/Folic Acid (Nephro-Valentino) 1 tab PO DAILY [facility] Last Admin: 01/19/17 10:14 Dose: 1 tab - Labs Labs: 01/19/17 05:00 01/19/17 05:00 PT 11.2 Seconds (9.8-13.1) 01/14/17 19:06 INR 1.0 (0.9-1.2) 01/14/17 19:06 APTT 28.2 Seconds (25.6-37.1) 01/14/17 19:06 - Constitutional Appears: Non-toxic, Cachectic - Head Exam Head Exam: NORMOCEPHALIC - Eye Exam Eye Exam: PERRL. absent: Scleral icterus - ENT Exam ENT Exam: Mucous Membranes Dry - Neck Exam Neck Exam: absent: Lymphadenopathy - Respiratory Exam Respiratory Exam: Decreased Breath Sounds, Rhonchi - Cardiovascular Exam Cardiovascular Exam: REGULAR RHYTHM - GI/Abdominal Exam GI & Abdominal Exam: Distended, Soft - Rectal Exam Rectal Exam: Deferred - Exam Exam: NORMAL INSPECTION External exam: NORMAL EXTERNAL EXAM - Extremities Exam Extremities Exam: Full ROM - Back Exam Back Exam: absent: CVA tenderness (L), CVA tenderness (R) - Neurological Exam Neurological Exam: Alert, Awake, Oriented x3 - Psychiatric Exam Psychiatric exam: Normal Mood - Skin Skin Exam: Dry Assessment and Plan (1) Sepsis Status: Acute (2) End stage renal disease Status: Chronic
[2017-01-19 16:15] VITALS: BP 145/64; PULSE 75; RESP 16; TEMP 98.3; O2SAT 98
--- NOTE | 2017-01-20 08:00 | CP.PCM.DIS ---
Provider - Provider Date of Admission: 01/14/17 19:57 Attending physician: Enid Bernard MD Time Spent in preparation of Discharge (in minutes): 15 Diagnosis - Discharge Diagnosis (1) Right shoulder pain Status: Acute (2) Sepsis Status: Acute (3) End stage renal disease Status: Chronic (4) DVT prophylaxis Status: Acute Hospital Course - Lab Results Lab Results: Micro Results 01/17/17 06:13 Blood-Venous Blood Culture - Preliminary NO GROWTH AFTER 48 HOURS 01/16/17 15:00 Blood-During Dialysis Blood Culture - Preliminary NO GROWTH AFTER 3 DAYS Most Recent Lab Values WBC 4.7 K/uL (4.8-10.8) L 01/19/17 05:00 RBC 3.17 Mil/uL (3.80-5.20) L 01/19/17 05:00 Hgb 9.1 g/dL (12.0-16.0) L 01/19/17 05:00 Hct 27.0 % (34.0-47.0) L 01/19/17 05:00 MCV 85.4 fl (81.0-99.0) 01/19/17 05:00 MCH 28.7 pg (27.0-31.0) 01/19/17 05:00 MCHC 33.6 g/dL (33.0-37.0) 01/19/17 05:00 RDW 15.5 % (11.5-14.5) H 01/19/17 05:00 Plt Count 118 K/uL (130-400) L D 01/19/17 05:00 MPV 10.4 fl (7.2-11.7) 01/19/17 05:00 Neut % (Auto) 36.3 % (50.0-75.0) L 01/19/17 05:00 Lymph % (Auto) 30.5 % (20.0-40.0) 01/19/17 05:00 Wheeler % (Auto) 17.6 % (0.0-10.0) H 01/19/17 05:00 Eos % (Auto) 13.7 % (0.0-4.0) H 01/19/17 05:00 Baso % (Auto) 1.9 % (0.0-2.0) 01/19/17 05:00 Neut # 1.7 K/uL (1.8-7.0) L 01/19/17 05:00 Lymph # 1.4 K/uL (1.0-4.3) 01/19/17 05:00 Wheeler # 0.8 K/uL (0.0-0.8) 01/19/17 05:00 Eos # 0.6 K/uL (0.0-0.7) 01/19/17 05:00 Baso # 0.1 K/uL (0.0-0.2) 01/19/17 05:00 Neutrophils % (Manual) 89 % (42-75) H 01/14/17 19:06 Lymphocytes % (Manual) 8 % (20-50) L 01/14/17 19:06 Monocytes % (Manual) 3 % (0-10) 01/14/17 19:06 Platelet Estimate Decreased (NORMAL) L 01/14/17 19:06 Hypochromasia (manual) Slight 01/14/17 19:06 Anisocytosis (manual) Slight 01/14/17 19:06 Ovalocytes Slight 01/14/17 19:06 PT 11.2 Seconds (9.8-13.1) 01/14/17 19:06 INR 1.0 (0.9-1.2) 01/14/17 19:06 APTT 28.2 Seconds (25.6-37.1) 01/14/17 19:06 pO2 130 mm/Hg (30-55) H 01/14/17 22:00 VBG pH 7.54 (7.32-7.43) H 01/14/17 22:00 VBG pCO2 25 mmHg (40-60) L 01/14/17 22:00 VBG HCO3 24.7 mmol/L 01/14/17 22:00 VBG Total CO2 22.2 mmol/L (22-28) 01/14/17 22:00 VBG O2 Sat (Calc) 99.6 % (40-65) H 01/14/17 22:00 VBG Base Excess -0.3 mmol/L (0.0-2.0) L 01/14/17 22:00 VBG Potassium 5.0 mmol/L (3.6-5.2) 01/14/17 22:00 Sodium 134.0 mmol/L (132-148) 01/14/17 22:00 Chloride 106.0 mmol/L (98-107) 01/14/17 22:00 Glucose 125 mg/dL (65-105) H 01/14/17 22:00 Lactate 1.6 mmol/L (0.7-2.1) 01/14/17 22:00 FiO2 21.0 % 01/14/17 22:00 Sodium 139 mmol/l (132-148) 01/19/17 05:00 Potassium 3.7 MMOL/L (3.6-5.0) 01/19/17 05:00 Chloride 103 mmol/L (98-107) 01/19/17 05:00 Carbon Dioxide 26 mmol/L (22-30) 01/19/17 05:00 Anion Gap 14 (10-20) 01/19/17 05:00 BUN 22 mg/dl (7-17) H 01/19/17 05:00 Creatinine 2.6 mg/dL (0.7-1.2) H 01/19/17 05:00 Est GFR ( Amer) 22 01/19/17 05:00 Est GFR (Non-Af Amer) 18 01/19/17 05:00 POC Glucose (mg/dL) 125 mg/dL (65-110) H 01/14/17 19:00 Random Glucose 86 mg/dL (65-105) 01/19/17 05:00 Calcium 8.4 mg/dL (8.4-10.2) 01/19/17 05:00 Phosphorus 4.0 mg/dl (2.5-4.5) 01/15/17 16:28 Magnesium 1.9 MG/DL (1.6-2.3) 01/14/17 19:06 Total Bilirubin 0.8 mg/dl (0.2-1.3) 01/16/17 05:00 AST 19 U/L (14-36) 01/16/17 05:00 ALT 32 U/L (9-52) 01/16/17 05:00 Alkaline Phosphatase 57 U/L (38-126) 01/16/17 05:00 Total Protein 5.9 G/DL (6.3-8.2) L 01/16/17 05:00 Albumin 3.3 g/dL (3.5-5.0) L 01/16/17 05:00 Globulin 2.6 gm/dL (2.2-3.9) 01/16/17 05:00 Albumin/Globulin Ratio 1.3 (1.0-2.1) 01/16/17 05:00 PTH Intact Whole Molec 45 pg/mL (14-64) 01/15/17 16:31 Venous Blood Potassium 5.0 mmol/L (3.6-5.2) 01/14/17 22:00 Influenza Typ A,B (EIA) Negative for flu a/b (NEGATIVE) 01/14/17 19:06 Grp A Beta Strep Ag Negative (NEGATIVE) 01/14/17 19:06 Discharge Exam - Head Exam Head Exam: ATRAUMATIC, NORMAL INSPECTION, NORMOCEPHALIC Discharge Plan - Discharge Medications Prescriptions: Ciprofloxacin [Cipro] 500 mg PO DAILY #14 tab - Follow Up Plan Condition: GUARDED Disposition: HOME/ ROUTINE Instructions: Sepsis (GEN) Additional Instructions: final dx-sepsis, bacteremia, esrd pt cleared by nephro and id. no need to change access at this time per id. will follow in office sunday
== END 2017-01-19 16:20 | disposition home or self-care (01) | DRG 871 ==
LOC: H.ER 18:45 → H.ERHOLD 19:57 → H.TEL 22:02
PROVIDERS: ADMIT Family Medicine; ATTEND Family Medicine
PROC: 5A1D60Z (ICD-10-PCS; principal; 2017-01-16)
DX: A41.50 Gram-negative sepsis, unspecified (principal); N18.6 End stage renal disease; I12.0 Hypertensive chronic kidney disease with stage 5 chronic kidney disease or end stage renal disease; G30.9 Alzheimer's disease, unspecified; F02.80 Dementia in other diseases classified elsewhere, unspecified severity, without behavioral disturbance, psychotic disturbance, mood disturbance, and anxiety; F43.22 Adjustment disorder with anxiety; D64.9 Anemia, unspecified; E78.00 Pure hypercholesterolemia, unspecified; M25.511 Pain in right shoulder; Z99.2 Dependence on renal dialysis; Z87.442 Personal history of urinary calculi

== ENCOUNTER 2017-03-01 10:10 | Observation (INO) | payer MEDICARE ==
--- NOTE | 2017-03-01 10:58 | ED PDOC ---
HPI: General Adult Time Seen by Provider: 03/01/17 10:43 Chief Complaint (Nursing): Abdominal Pain Chief Complaint (Provider): weakness, nausea, missed HD History Per: Patient, Family History/Exam Limitations: clinical condition Onset/Duration Of Symptoms: Gradual Current Symptoms Are (Timing): Intermittent Episodes Severity: Moderate Recently: Treated By A Physician Additional Complaint(s): 76yo female with ESRD on HD, dementia, has refused HD for last week, per son last HD about 8days ago, now c/o weakness, nausea, mild epigastric pain. Pt does urinate, denies fever, SOB, chest pain or falls. Past Medical History Reviewed: Historical Data, Nursing Documentation, Vital Signs Vital Signs: Last Vital Signs Temp 98.0 F 03/01/17 14:53 Pulse 73 03/01/17 14:53 Resp 18 03/01/17 14:53 BP 146/69 03/01/17 14:53 Pulse Ox 98 03/01/17 13:55 - Medical History PMH: Alzheimer's Disease, Anemia, Diverticulitis, HTN, Hypercholesterolemia, Kidney Stones, Migraine, End Stage Renal Disease, Chronic Kidney Disease - Surgical History Surgical History: Appendectomy, Tonsillectomy - Family History Family History: States: Unknown Family Hx, Hypertension - Immunization History Hx Tetanus Toxoid Vaccination: No Hx Influenza Vaccination: No Hx Pneumococcal Vaccination: No - Home Medications Home Medications: Ambulatory Orders Medication Instructions Recorded Atorvastatin [Lipitor] 20 mg PO DAILY 08/16/16 Calcitriol [Rocaltrol] 0.25 mcg PO Q48H 08/16/16 Calcium Acetate [Phoslo] 2 cap PO TID 08/16/16 Labetalol [Trandate] 100 mg PO BID 08/16/16 Lisinopril [Zestril] 5 mg PO DAILY 08/16/16 amLODIPine [Norvasc] 5 mg PO DAILY 08/16/16 hydrALAZINE [Apresoline] 25 mg PO BID 08/16/16 Alprazolam [Xanax] 0.5 mg PO HS 11/04/16 B Complex W-C No.20/Folic Acid 1 cap PO DAILY 11/04/16 [Renal Caps Softgel] Mirtazapine 7.5 mg PO HS 11/04/16 oxyCODONE/Acetaminophen [Percocet 1 tab PO Q4H PRN 03/01/17 5/325 mg Tab] - Allergies Allergies/Adverse Reactions: Allergies Allergy/AdvReac Type Severity Reaction Status Date / Time No Known Allergies Allergy Verified 01/02/17 08:34 Review of Systems Constitutional: Positive for: Weakness, Malaise. Negative for: Fever, Chills ENT: Negative for: Ear Discharge, Nose Discharge Cardiovascular: Negative for: Chest Pain, Palpitations Respiratory: Negative for: Cough, Shortness of Breath Gastrointestinal: Positive for: Nausea, Abdominal Pain Genitourinary Female: Negative for: Dysuria, Frequency Musculoskeletal: Negative for: Neck Pain, Shoulder Pain Skin: Negative for: Rash, Lesions, Jaundice Neurological: Positive for: Weakness, Altered Mental Status (dementia baseline\) , Dizziness. Negative for: Headache Physical Exam - Reviewed Nursing Documentation Reviewed: Yes Vital Signs Reviewed: Yes - Physical Exam Appears: Positive for: Non-toxic (confused baseline but communicative), No Acute Distress Head Exam: Positive for: ATRAUMATIC, NORMAL INSPECTION, NORMOCEPHALIC Skin: Positive for: Normal Color, Warm, DRY Eye Exam: Positive for: EOMI, Normal appearance, PERRL ENT: Positive for: Normal ENT Inspection Neck: Positive for: Normal, Painless ROM Cardiovascular/Chest: Positive for: Regular Rate, Rhythm Respiratory: Positive for: CNT, Normal Breath Sounds Gastrointestinal/Abdominal: Positive for: Bowel Sounds, Soft. 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 Negative for: Oriented, Motor/Sensory Deficits - Laboratory Results Result Diagrams: 03/01/17 11:08 03/01/17 11:08 - ECG ECG: Positive for: Interpreted By Me ECG Rhythm: Positive for: Sinus Rhythm, Nonspecific Changes Rate: 72 O2 Sat by Pulse Oximetry: 97 Pulse Ox Interpretation: Normal Medical Decision Making Medical Decision Making: labs reviewed, K+ mildly elevated, BUN elevated from baseline. D/w nephology Dr Benedict, recommends urgent HD today. Admit tele Obs Dr Bernard/ Martin. Discussed results w son and patient. correction- [facility] now patient is private of Dr Deysi Martínez, [facility]. Admitted to hospitalist Dr Arcos. Nephrology in ED for HD orders ~230pm Disposition - Clinical Impression Clinical Impression: Hyperkalemia, ESRD (end stage renal disease) - Patient ED Disposition Is Patient to be Admitted: Yes - Disposition Disposition Time: 12:05 Condition: FAIR - Pt Status Changed To: Hospital Disposition Of: Observation - POA Present On Arrival: None
[2017-03-01 11:12] LABS: BASO # 0.1 K/uL (0.0-0.2); BASO % 1.1 % (0.0-2.0); EOS # 0.2 K/uL (0.0-0.7); EOS % 3.4 % (0.0-4.0); LYMPH # 0.9 K/uL (1.0-4.3); LYMPH % 13.8 % (20.0-40.0); MEAN CORPUSCULAR HEMOGLOBIN 29.2 pg (27.0-31.0); MEAN CORPUSCULAR HGB CONC 33.1 g/dL (33.0-37.0); MEAN PLATELET VOLUME 9.6 fl (7.2-11.7); MONO # 0.8 K/uL (0.0-0.8); MONO % 11.2 % (0.0-10.0); NEUT # 4.8 K/uL (1.8-7.0); NEUT % 70.5 % (50.0-75.0); RED CELL DISTRIBUTION WIDTH 14.8 % (11.5-14.5); WHITE BLOOD COUNT 6.8 K/uL (4.8-10.8)
[2017-03-01 11:41] LABS: ALB/GLOB RATIO 1.4 (1.0-2.1); ALKALINE PHOSPHATASE 63 U/L (38-126); ALT/SGPT 22 U/L (9-52); AST/SGOT 30 U/L (14-36); BILIRUBIN,TOTAL 0.6 mg/dl (0.2-1.3); BLOOD UREA NITROGEN 71 mg/dl (7-17); CALCIUM 10.2 mg/dL (8.4-10.2); CARBON DIOXIDE 25 mmol/L (22-30); CHLORIDE 100 mmol/L (98-107); GFR AFRICAN-AMERICAN 10; GLUCOSE,RANDOM 116 mg/dL (65-105); SODIUM 136 mmol/l (132-148)
[2017-03-01 11:46] LABS: RBC URINE 4 /hpf (0-3); URINE BACTERIA RARE (<OCC); URINE BILIRUBIN NEGATIVE (NEGATIVE); URINE BLOOD NEGATIVE (NEGATIVE); URINE COLOR YELLOW (YELLOW); URINE GLUCOSE (UA) NEG (Normal); URINE KETONE NEGATIVE (NEGATIVE); URINE LEUKOCYTE ESTERASE TRACE Leu/uL (Negative); URINE PROTEIN 100 mg/dL (NEGATIVE); URINE UROBILINOGEN 0.2-1.0 mg/dL (0.2-1.0); WBC URINE 1 /hpf (0-5)
[2017-03-01 12:04] LABS: POTASSIUM 5.6 MMOL/L (3.6-5.0)
--- NOTE | 2017-03-01 14:42 | CP.PCM.HP ---
History of Present Illness - History of Present Illness History of Present Illness: CC: MISSED DIALYSIS HPI: This is a 76-year-old female with past medical history significant for Alzheimer's dementia, end-stage renal disease with hemodialysis Sunday, hypertension brought to the emergency room by ambulance and accompanied by her son after missing her dialysis session this morning. Patient has been refusing dialysis for the past week due to her Alzheimer's dementia, and becomes agitated when asked why she does not wish to go. Patient recently had an AVF procedure in her left upper extremity by Dr. Funk, who she is to follow-up with this week. 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 Benedict, and will be getting dialysis today. In ER patient hyperkalemic at 5.6. She is hemodynamically stable, and has no other complaints at this time. ROS: per HPI, 12 systems reviewed and negative PMD: Genaro Conde MD home visit, [facility] PMH: Alzheimer's dementia, ESRD with HD MWF, hypertension PSH: Appendectomy, tonsillectomy FH: Denies SH: denies tobacco, ETOH, IVDU Meds: as below Allergies: NKDA CODE STATUS DNR Vitals: reviewed and currently stable Temp Pulse Resp BP Pulse Ox 98.0 F 73 18 146/69 98 03/01/17 14:53 03/01/17 14:53 03/01/17 14:53 03/01/17 14:53 03/01/17 13:55 Exam: GEN: WDWN, alert, cooperative HEENT: NCAT, PERRL, EOMI NECK: supple, no JVD, no lymphadenopathy CARDIAC: +S1S2 RRR LUNG: CTAB No WRR ABD: SOFT NT ND BSX4 NO MASSES NO HSM EXT: Left upper extremity AVF site with doug and sutures NEURO: Confused, history of dementia at baseline SKIN warm, dry PSYCH normal mood, normal affect Labs: 03/01/17 03/01/17 03/01/17 11:08 11:08 11:00 WBC 6.8 RBC 4.43 Hgb 12.9 D Hct 39.0 MCV 88.0 D MCH 29.2 MCHC 33.1 RDW 14.8 H Plt Count 153 MPV 9.6 Neut % (Auto) 70.5 Lymph % (Auto) 13.[address] % (Auto) 11.2 H Eos % (Auto) 3.4 Baso % (Auto) 1.1 Neut # 4.8 Lymph # 0.[address] # 0.8 Eos # 0.2 Baso # 0.1 Sodium 136 Potassium 5.6 H Chloride 100 Carbon Dioxide 25 Anion Gap 17 BUN 71 H Creatinine 5.2 H Est GFR ( Amer) 10 Est GFR (Non-Af Amer) 8 Random Glucose 116 H Calcium 10.2 Total Bilirubin 0.6 AST 30 ALT 22 Alkaline Phosphatase 63 Troponin I < 0.0120 Total Protein 7.0 Albumin 4.1 Globulin 2.9 Albumin/Globulin Ratio 1.4 Urine Color Yellow Urine Clarity Clear Urine pH 7.0 Ur Specific [place] 1.011 Urine Protein 100 Urine Glucose (UA) Neg Urine Ketones Negative Urine Blood Negative Urine Nitrate Negative Urine Bilirubin Negative Urine Urobilinogen 0.2-1.0 Ur Leukocyte Esterase Trace Urine RBC (Auto) 4 H Urine Microscopic WBC 1 Ur Squamous Epith Cells 4 Urine Bacteria Rare Active Medications: Allergies No Known Allergies Allergy (Verified 01/02/17 08:34) Height & Weight Height 5 ft 6 in Weight 130 lb Start Date/Time Active Medications 03/01/17 14:45 Calcitriol [Rocaltrol] 0.25 mcg PO Q48H 03/01/17 17:00 Calcium Acetate [Phoslo] 1,334 mg PO TID Heparin 5,000 units SC Q8 Labetalol [Trandate] 100 mg PO BID hydrALAZINE [Apresoline] 25 mg PO BID 03/01/17 22:00 Mirtazapine [Remeron] 7.5 mg PO HS 03/02/17 09:00 Atorvastatin [Lipitor] 20 mg PO DAILY Lisinopril [Zestril] 5 mg PO DAILY Vitamin B Complex/Vit C/Folic [Nephro-Valentino] 1 tab PO DAILY amLODIPine [Norvasc] 5 mg PO DAILY Assessment and Plan: This is a 76-year-old female with past medical history significant for Alzheimer 's dementia, end-stage renal disease with hemodialysis Sunday, hypertension brought to the emergency room by ambulance and accompanied by her son after missing her dialysis session this morning. Patient has been refusing dialysis for the past week due to her Alzheimer's dementia, and becomes agitated when asked why she does not wish to go. Patient recently had an AVF procedure in her left upper extremity by Dr. Funk, who she is to follow-up with this week. 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 Benedict, and will be getting dialysis today. In ER patient hyperkalemic at 5.6. She is hemodynamically stable , and has no other complaints at this time. ESRD ON HD MWF HYPERKALEMIA K 5.[address] 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 For Dialysis today Continue all meds as below Calcitriol [Rocaltrol] 0.25 mcg PO Q48H Calcium Acetate [Phoslo] 1,334 mg PO TID Vitamin B Complex/Vit C/Folic [Nephro-Valentino] 1 tab PO DAILY HYPERTENSION Lisinopril [Zestril] 5 mg PO DAILY Labetalol [Trandate] 100 mg PO BID hydrALAZINE [Apresoline] 25 mg PO BID amLODIPine [Norvasc] 5 mg PO DAILY ALZHEIMER'S DEMENTIA Mirtazapine [Remeron] 7.5 mg PO HS HYPERLIPIDEMIA Atorvastatin [Lipitor] 20 mg PO DAILY VTE ppx Heparin 5,000 units SC Q8 Present on Admission - Present on Admission Any Indicators Present on Admission: No Past Patient History - Infectious Disease Hx of Infectious Diseases: None - Tetanus Immunizations Tetanus Immunization: Unknown - Past Medical History & Family History Past Medical History?: Yes - Past Social History Smoking Status: Never Smoked - CARDIAC Hx Hypercholesterolemia: Yes Hx Hypertension: Yes - PULMONARY Hx Respiratory Disorders: No - NEUROLOGICAL Hx Alzheimer's Disease: Yes Hx Migraine: Yes - HEENT Hx HEENT Problems: No Other/Comment: Wears eye glasses. - RENAL Hx Chronic Kidney Disease: Yes Hx Kidney Stones: Yes - ENDOCRINE/METABOLIC Hx Endocrine Disorders: No - HEMATOLOGICAL/ONCOLOGICAL Hx Anemia: Yes - INTEGUMENTARY Hx Dermatological Problems: Yes Other/Comment: HX: RASHES OVER BODY-"DUE TO KIDNEYS NOT FUNCTIONG WELL."-PER SON PER MD. - MUSCULOSKELETAL/RHEUMATOLOGICAL Hx Musculoskeletal Disorders: No Hx Falls: No - GASTROINTESTINAL Hx Diverticulitis: Yes - GENITOURINARY/GYNECOLOGICAL Hx Genitourinary Disorders: No - PSYCHIATRIC Hx Psychophysiologic Disorder: No Hx Substance Use: No - SURGICAL HISTORY Hx Appendectomy: Yes Hx Tonsillectomy: Yes - ANESTHESIA Hx Anesthesia: Yes Hx Anesthesia Reactions: No Hx Malignant Hyperthermia: No Meds Allergies/Adverse Reactions: Allergies Allergy/AdvReac Type Severity Reaction Status Date / Time No Known Allergies Allergy Verified 01/02/17 08:34 Results - Vital Signs Recent Vital Signs: Last Vital Signs Temp 98.0 F 03/01/17 13:55 Pulse 73 03/01/17 13:55 Resp 18 03/01/17 13:55 BP 146/69 03/01/17 13:55 Pulse Ox 98 03/01/17 13:55 - Labs Result Diagrams: 03/01/17 11:08 03/01/17 11:08
--- NOTE | 2017-03-01 14:55 | CP.PCM.CON ---
History of Present Illness - History of Present Illness History of Present Illness: 76 y/o female with ESRD on maintenance HD Dementia,DM is admitted for c/o generalized weakness, nausea,loss of appetite. Pt did not have dialysis for 8 days. Few months ago Pt had stopped dialysis. but later agreed & sisnce then was doing dialysis regularly. Recently had creation of Lt arm AVF Past Patient History - Infectious Disease Hx of Infectious Diseases: None - Tetanus Immunizations Tetanus Immunization: Unknown - Past Medical History & Family History Past Medical History?: Yes - Past Social History Smoking Status: Never Smoked - CARDIAC Hx Hypercholesterolemia: Yes Hx Hypertension: Yes - PULMONARY Hx Respiratory Disorders: No - NEUROLOGICAL Hx Alzheimer's Disease: Yes Hx Migraine: Yes - HEENT Hx HEENT Problems: No Other/Comment: Wears eye glasses. - RENAL Hx Chronic Kidney Disease: Yes Hx Kidney Stones: Yes - ENDOCRINE/METABOLIC Hx Endocrine Disorders: No - HEMATOLOGICAL/ONCOLOGICAL Hx Anemia: Yes - INTEGUMENTARY Hx Dermatological Problems: Yes Other/Comment: HX: RASHES OVER BODY-"DUE TO KIDNEYS NOT FUNCTIONG WELL."-PER SON PER MD. - MUSCULOSKELETAL/RHEUMATOLOGICAL Hx Musculoskeletal Disorders: No Hx Falls: No - GASTROINTESTINAL Hx Diverticulitis: Yes - GENITOURINARY/GYNECOLOGICAL Hx Genitourinary Disorders: No - PSYCHIATRIC Hx Psychophysiologic Disorder: No Hx Substance Use: No - SURGICAL HISTORY Hx Appendectomy: Yes Hx Tonsillectomy: Yes - ANESTHESIA Hx Anesthesia: Yes Hx Anesthesia Reactions: No Hx Malignant Hyperthermia: No Meds Allergies/Adverse Reactions: Allergies Allergy/AdvReac Type Severity Reaction Status Date / Time No Known Allergies Allergy Verified 01/02/17 08:34 - Medications Medications: Current Medications Amlodipine Besylate (Norvasc) 5 mg PO DAILY [facility] Atorvastatin Calcium (Lipitor) 20 mg PO DAILY [facility] Calcitriol (Rocaltrol) 0.25 mcg PO Q48H [facility] Calcium Acetate (Phoslo) 1,334 mg PO TID [facility] Heparin Sodium (Porcine) (Heparin) 5,000 units SC Q8 [facility] PRN Reason: Protocol Hydralazine HCl (Apresoline) 25 mg PO BID [facility] Labetalol HCl (Trandate) 100 mg PO BID [facility] Lisinopril (Zestril) 5 mg PO DAILY [facility] Mirtazapine (Remeron) 7.5 mg PO HS [facility] Vitamin B Complex/Vit C/Folic Acid (Nephro-Valentino) 1 tab PO DAILY [facility] Physical Exam - Constitutional Additional comments: Appears uncomfortable because of nausea & malaise - Head Exam Head Exam: ATRAUMATIC, NORMOCEPHALIC - Eye Exam Additional comments: No icterus - ENT Exam ENT Exam: Mucous Membranes Dry - Respiratory Exam Additional comments: Lungs clear - Cardiovascular Exam Cardiovascular Exam: REGULAR RHYTHM - GI/Abdominal Exam GI & Abdominal Exam: Soft Additional comments: Mild diffuse tenderness - Extremities Exam Additional comments: No edema or cyanosis Results - Vital Signs Recent Vital Signs: Last Vital Signs Temp 98.0 F 03/01/17 13:55 Pulse 73 03/01/17 13:55 Resp 18 03/01/17 13:55 BP 146/69 03/01/17 13:55 Pulse Ox 98 03/01/17 13:55 - Labs Result Diagrams: 03/01/17 11:08 03/01/17 11:08 Assessment & Plan - Assessment and Plan (Free Text) Assessment: ESRD on HD Uremia secondary to missed dialysis treatments Hx/o HTN Dementia Plan: Discussed need for dialysis with Pt. She agrres to resumd dialysis & signed dialysis consent
--- NOTE | 2017-03-01 16:00 | RAD ---
HISTORY: SOB COMPARISON: Chest x-ray performed 01/14/17 TECHNIQUE: Chest, one view. FINDINGS: Right-sided dialysis catheter extends to the expected location of the cavoatrial junction. LUNGS: No focal consolidation. Please note that chest x-ray has limited sensitivity for the detection of pulmonary masses. PLEURA: No significant pleural effusion identified. No definite pneumothorax . CARDIOVASCULAR: Mild cardiomegaly. Dense atherosclerotic calcification of the aortic knob. OSSEOUS STRUCTURES: Degenerative changes. Osseous demineralization. VISUALIZED UPPER ABDOMEN: Unremarkable. OTHER FINDINGS: None. IMPRESSION: Right-sided dialysis catheter extends expected location of the cavoatrial junction. Mild cardiomegaly. Dense atherosclerotic calcification of the aortic knob.
--- NOTE | 2017-03-01 16:51 | CARD ---
APPROVED REPORT EKG Measurement Heart [id number] <Conclusion> Normal sinus rhythm Right atrial enlargement Borderline ECG
--- NOTE | 2017-03-02 07:20 | CP.PCM.DIS ---
Provider - Provider Date of Admission: 03/01/17 12:17 Attending physician: Cassie Arcos DO Primary care physician: Dr. Mauricio Lam Consults: nephro consult Time Spent in preparation of Discharge (in minutes): 20 Hospital Course - Lab Results Lab Results: Most Recent Lab Values WBC 6.8 K/uL (4.8-10.8) 03/01/17 11:08 RBC 4.43 Mil/uL (3.80-5.20) 03/01/17 11:08 Hgb 12.9 g/dL (12.0-16.0) D 03/01/17 11:08 Hct 39.0 % (34.0-47.0) 03/01/17 11:08 MCV 88.0 fl (81.0-99.0) D 03/01/17 11:08 MCH 29.2 pg (27.0-31.0) 03/01/17 11:08 MCHC 33.1 g/dL (33.0-37.0) 03/01/17 11:08 RDW 14.8 % (11.5-14.5) H 03/01/17 11:08 Plt Count 153 K/uL (130-400) 03/01/17 11:08 MPV 9.6 fl (7.2-11.7) 03/01/17 11:08 Neut % (Auto) 70.5 % (50.0-75.0) 03/01/17 11:08 Lymph % (Auto) 13.8 % (20.0-40.0) L 03/01/17 11:08 [place] % (Auto) 11.2 % (0.0-10.0) H 03/01/17 11:08 Eos % (Auto) 3.4 % (0.0-4.0) 03/01/17 11:08 Baso % (Auto) 1.1 % (0.0-2.0) 03/01/17 11:08 Neut # 4.8 K/uL (1.8-7.0) 03/01/17 11:08 Lymph # 0.9 K/uL (1.0-4.3) L 03/01/17 11:08 [place] # 0.8 K/uL (0.0-0.8) 03/01/17 11:08 Eos # 0.2 K/uL (0.0-0.7) 03/01/17 11:08 Baso # 0.1 K/uL (0.0-0.2) 03/01/17 11:08 Sodium 136 mmol/l (132-148) 03/01/17 11:08 Potassium 5.6 MMOL/L (3.6-5.0) H 03/01/17 11:08 Chloride 100 mmol/L (98-107) 03/01/17 11:08 Carbon Dioxide 25 mmol/L (22-30) 03/01/17 11:08 Anion Gap 17 (10-20) 03/01/17 11:08 BUN 71 mg/dl (7-17) H 03/01/17 11:08 Creatinine 5.2 mg/dL (0.7-1.2) H 03/01/17 11:08 Est GFR ( Amer) 10 03/01/17 11:08 Est GFR (Non-Af Amer) 8 03/01/17 11:08 Random Glucose 116 mg/dL (65-105) H 03/01/17 11:08 Calcium 10.2 mg/dL (8.4-10.2) 03/01/17 11:08 Phosphorus 4.6 mg/dl (2.5-4.5) H 03/01/17 20:08 Total Bilirubin 0.6 mg/dl (0.2-1.3) 03/01/17 11:08 AST 30 U/L (14-36) 03/01/17 11:08 ALT 22 U/L (9-52) 03/01/17 11:08 Alkaline Phosphatase 63 U/L (38-126) 03/01/17 11:08 Troponin I < 0.0120 ng/mL (0.00-0.120) 03/01/17 11:08 Total Protein 7.0 G/DL (6.3-8.2) 03/01/17 11:08 Albumin 4.1 g/dL (3.5-5.0) 03/01/17 11:08 Globulin 2.9 gm/dL (2.2-3.9) 03/01/17 11:08 Albumin/Globulin Ratio 1.4 (1.0-2.1) 03/01/17 11:08 Urine Color Yellow (YELLOW) 03/01/17 11:00 Urine Clarity Clear (Clear) 03/01/17 11:00 Urine pH 7.0 (5.0-8.0) 03/01/17 11:00 Ur Specific [place] 1.011 (1.003-1.030) 03/01/17 11:00 Urine Protein 100 mg/dL (NEGATIVE) 03/01/17 11:00 Urine Glucose (UA) Neg mg/dL (Normal) 03/01/17 11:00 Urine Ketones Negative mg/dL (NEGATIVE) 03/01/17 11:00 Urine Blood Negative (NEGATIVE) 03/01/17 11:00 Urine Nitrate Negative (NEGATIVE) 03/01/17 11:00 Urine Bilirubin Negative (NEGATIVE) 03/01/17 11:00 Urine Urobilinogen 0.2-1.0 mg/dL (0.2-1.0) 03/01/17 11:00 Ur Leukocyte Esterase Trace [place]/uL (Negative) 03/01/17 11:00 Urine RBC (Auto) 4 /hpf (0-3) H 03/01/17 11:00 Urine Microscopic WBC 1 /hpf (0-5) 03/01/17 11:00 Ur Squamous Epith Cells 4 /hpf (0-5) 03/01/17 11:00 Urine Bacteria Rare (<OCC) 03/01/17 11:00 - Hospital Course Hospital Course: This is a 76-year-old female with past medical history significant for Alzheimer 's dementia, end-stage renal disease with hemodialysis Sunday, hypertension brought to the emergency room by ambulance and accompanied by her son after missing her dialysis session this morning. Patient has been refusing dialysis for the past week due to her Alzheimer's dementia, and becomes agitated when asked why she does not wish to go. Patient recently had an AVF procedure in her left upper extremity by Dr. Funk, who she is to follow-up with this week. 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 atient received Hd yesterday and is to receive sort session today . Will discharge home afterwards She is hemodynamically stable, afebrile. WBC normal. Some redness noted around left upper extremity surgical incision Will discharge patient home on Po Keflex and follow up with Dr. Mcdonough on Sunday Follow up with HD as scheduled 1.ESRD ON HD MWF with HYPERKALEMIA Has been refusing HD for 1 week Received HD yesterday and will give 1 session today and d/c home Follow up with HD as scheduled 2.HYPERTENSION- stable Lisinopril [Zestril] 5 mg PO DAILY Labetalol [Trandate] 100 mg PO BID hydrALAZINE [Apresoline] 25 mg PO BID amLODIPine [Norvasc] 5 mg PO DAILY 3.ALZHEIMER'S DEMENTIA Mirtazapine [Remeron] 7.5 mg PO HS 4.HYPERLIPIDEMIA Atorvastatin [Lipitor] 20 mg PO DAILY 5. Left inner arm AVF, surgical incision with doug in place and surrounding erythema suspicious for local cellulitis Start Keflex Po once a day Discharge Exam - Head Exam Head Exam: ATRAUMATIC, NORMAL INSPECTION, NORMOCEPHALIC - Eye Exam Eye Exam: EOMI, PERRL Pupil Exam: NORMAL ACCOMODATION - ENT Exam ENT Exam: Mucous Membranes Moist, Normal Exam - Neck Exam Neck exam: Full Rom, Normal Inspection - Respiratory Exam Respiratory Exam: Clear to PA & Lateral, NORMAL BREATHING PATTERN. absent: Rhonchi, Wheezes - Cardiovascular Exam Cardiovascular Exam: Systolic Murmur. absent: JVD - GI/Abdominal Exam GI & Abdominal Exam: Normal Bowel Sounds, Soft. absent: Distended, Guarding, Rebound, Tenderness - Rectal Exam Rectal Exam: Deferred - Extremities Exam Extremities exam: normal capillary refill, normal inspection, pedal pulses present Additional comments: LUE inner aspect surgical incision from axilla to elbow with doug in place , surrounding erythema with no discharge or fluctuation - Back Exam Back exam: NORMAL INSPECTION - Neurological Exam Neurological exam: Alert, CN II-XII Intact, Oriented x3, Reflexes Normal - Psychiatric Exam Psychiatric exam: Normal Affect - Skin Skin Exam: Dry, Normal Color, Warm Discharge Plan - Discharge Medications Prescriptions: Cephalexin [cephalexin] 500 mg PO DAILY #7 cap - Follow Up Plan Condition: STABLE Disposition: HOME/ ROUTINE Patient education suggested?: Yes Instructions: Hemodialysis (DC), Cellulitis (DC) Referrals: Fredis Benedict MD [Staff Provider] -
[2017-03-02 08:49] LABS: HEMATOCRIT 40.3 % (34.0-47.0); MEAN CORPUSCULAR HEMOGLOBIN 28.5 pg (27.0-31.0); MEAN CORPUSCULAR HGB CONC 32.4 g/dL (33.0-37.0); RED CELL DISTRIBUTION WIDTH 14.6 % (11.5-14.5); WHITE BLOOD COUNT 5.4 K/uL (4.8-10.8)
[2017-03-02 09:03] LABS: CALCIUM 9.5 mg/dL (8.4-10.2); POTASSIUM 4.6 MMOL/L (3.6-5.0)
[2017-03-02] MEDS: Multivitamin Vitamin B Complex (Nephro-Vite) Tab PO SCH (09:47)
[2017-03-02 11:15] VITALS: BMI 20.9
--- NOTE | 2017-03-02 15:48 | CP.PCM.PN ---
Subjective - Date & Time of Evaluation Date of Evaluation: 03/02/17 Time of Evaluation: 15:45 - Subjective Subjective: Patient and bed appears to be comfortable Patient had partial hemodialysis treatment yesterday Patient to have very short treatment today so we can catch up with have dialysis time and schedule . Physical exam Chest no rales Heart no rubs Abdomen soft Extremity no edema Impression and plan End stage renal disease patient noncompliance kidney missing dialysis and we are giving a short treatment today to catch up with her time off dialysis Patient is being discharged if she is stable after dialysis Objective - Vital Signs/Intake and Output Vital Signs (last 24 hours): Temp Pulse Resp BP Pulse Ox 98.5 F 77 20 122/72 97 03/02/17 12:00 03/02/17 12:00 03/02/17 12:00 03/02/17 12:00 03/02/17 12:00 - Medications Medications: Current Medications Acetaminophen (Tylenol 325mg Tab) 650 mg PO Q4 PRN PRN Reason: Other Last Admin: 03/02/17 12:33 Dose: 650 mg Amlodipine Besylate (Norvasc) 5 mg PO DAILY [facility] Last Admin: 03/02/17 09:45 Dose: 5 mg Atorvastatin Calcium (Lipitor) 20 mg PO DAILY [facility] Last Admin: 03/02/17 09:45 Dose: 20 mg Calcitriol (Rocaltrol) 0.25 mcg PO Q48H [facility] Last Admin: 03/01/17 16:48 Dose: 0.25 mcg Calcium Acetate (Phoslo) 1,334 mg PO TID [facility] Last Admin: 03/02/17 12:35 Dose: 1,334 mg Heparin Sodium (Porcine) (Heparin) 5,000 units SC Q8 [facility] PRN Reason: Protocol Last Admin: 03/02/17 09:45 Dose: 5,000 units Hydralazine HCl (Apresoline) 25 mg PO BID [facility] Last Admin: 03/02/17 09:45 Dose: 25 mg Labetalol HCl (Trandate) 100 mg PO BID [facility] Last Admin: 03/02/17 09:46 Dose: 100 mg Lisinopril (Zestril) 5 mg PO DAILY [facility] Last Admin: 03/02/17 09:46 Dose: 5 mg Mirtazapine (Remeron) 7.5 mg PO HS [facility] Last Admin: 03/02/17 00:17 Dose: 7.5 mg Vitamin B Complex/Vit C/Folic Acid (Nephro-Valentino) 1 tab PO DAILY [facility] Last Admin: 03/02/17 09:47 Dose: 1 tab - Labs Labs: 03/02/17 08:39 03/02/17 08:39
[2017-03-02] MEDS ORDERED: DiphenhydrAMINE 50 mg/ml Inj IVP STA (21:11)
[2017-03-02 23:55] VITALS: RESP 18
[2017-03-03 04:58] VITALS: O2SAT 97
[2017-03-03] MEDS: Multivitamin Vitamin B Complex (Nephro-Vite) Tab PO SCH (08:37)
[2017-03-03 08:38] VITALS: BP 145/68; PULSE 88
[2017-03-03 08:40] VITALS: TEMP 98.4
== END 2017-03-03 11:44 | disposition home or self-care (01) ==
LOC: H.ER 10:10 → H.ERHOLD 12:17 → H.TEL 16:01
PROVIDERS: ADMIT Student in an Organized Health Care Education/Training Program; ATTEND Student in an Organized Health Care Education/Training Program
DX: E87.5 Hyperkalemia (principal); N18.6 End stage renal disease; I12.0 Hypertensive chronic kidney disease with stage 5 chronic kidney disease or end stage renal disease; Z91.15 Patient's noncompliance with renal dialysis; D63.1 Anemia in chronic kidney disease; Z99.2 Dependence on renal dialysis; G30.9 Alzheimer's disease, unspecified; F02.80 Dementia in other diseases classified elsewhere, unspecified severity, without behavioral disturbance, psychotic disturbance, mood disturbance, and anxiety; E78.5 Hyperlipidemia, unspecified; Z87.442 Personal history of urinary calculi
CPT/HCPCS: 36415; 71010; 80048; 80053; 80074; 81003; 84100; 84484; 85025; 85027; 93005; 99285; G0257; G0378; J1200; J1644

== ENCOUNTER 2017-03-23 12:30 | Inpatient (IN) | payer MEDICARE ==
[2017-03-23 12:30] VITALS: BMI 20.9
--- NOTE | 2017-03-23 12:57 | ED PDOC ---
HPI: General Adult Time Seen by Provider: 03/23/17 12:33 Chief Complaint (Nursing): Medical Clearance Chief Complaint (Provider): Medical Clearance Additional Complaint(s): Saba Cohen is a 76 year old female with a past medical history of end stage renal disease, dialysis dependent, brought to the ED by her son for an evaluation of a fever beginning today prior to arrival. The patient's son reports the visiting nurse took the patient's temperature measuring 100.4 today. The son gave the patient Tylenol 650 mg at 11:00 before her temperature was taken. The patient's last dialysis treatment was 1 week ago, since the patient refuses to go. The patient's son also notes yellow discharge coming from the right chest catheter site on the patient for the past week. The patient also had a new fistula placed in her left upper extremity. The patient still urinates a little bit. She denies coughing, vomiting, and diarrhea. PMD: Genaro Martínez MD On license of [facility] Provider: Dr. Benedict Past Medical History Reviewed: Historical Data, Nursing Documentation, Vital Signs Vital Signs: Last Vital Signs Temp 101.3 F H 03/23/17 15:30 Pulse 89 03/23/17 16:00 Resp 22 03/23/17 16:00 BP 153/88 H 03/23/17 16:00 Pulse Ox 97 03/23/17 15:31 - Medical History PMH: Alzheimer's Disease, Anemia, Diverticulitis, HTN, Hypercholesterolemia, Kidney Stones, Migraine, End Stage Renal Disease, Chronic Kidney Disease - Surgical History Surgical History: Appendectomy, Tonsillectomy - Family History Family History: States: Unknown Family Hx, Hypertension - Immunization History Hx Tetanus Toxoid Vaccination: No Hx Influenza Vaccination: No Hx Pneumococcal Vaccination: No - Home Medications Home Medications: Ambulatory Orders Medication Instructions Recorded Atorvastatin [Lipitor] 20 mg PO DAILY 08/16/16 Calcitriol [Rocaltrol] 0.25 mcg PO Q48H 08/16/16 Calcium Acetate [Phoslo] 2 cap PO TID 08/16/16 Labetalol [Trandate] 100 mg PO BID 08/16/16 Lisinopril [Zestril] 5 mg PO DAILY 08/16/16 amLODIPine [Norvasc] 5 mg PO DAILY 08/16/16 hydrALAZINE [Apresoline] 25 mg PO BID 08/16/16 Alprazolam [Xanax] 0.5 mg PO HS 11/04/16 B Complex W-C No.20/Folic Acid 1 cap PO DAILY 11/04/16 [Renal Caps Softgel] Mirtazapine 7.5 mg PO HS 11/04/16 oxyCODONE/Acetaminophen [Percocet 1 tab PO Q4H PRN 03/01/17 5/325 mg Tab] - Allergies Allergies/Adverse Reactions: Allergies Allergy/AdvReac Type Severity Reaction Status Date / Time No Known Allergies Allergy Verified 03/23/17 13:05 Review of Systems ROS Statement: Except As Marked, All Systems Reviewed And Found Negative Constitutional: Positive for: Fever, Other (yellow discharge coming from right chest catheter) Respiratory: Negative for: Cough Gastrointestinal: Negative for: Vomiting, Diarrhea Physical Exam - Reviewed Nursing Documentation Reviewed: Yes Vital Signs Reviewed: Yes - Physical Exam Appears: Positive for: Non-toxic, No Acute Distress Head Exam: Positive for: ATRAUMATIC, NORMOCEPHALIC Skin: Positive for: Normal Color, Warm, Dry Eye Exam: Positive for: Normal appearance, EOMI ENT: Positive for: Normal ENT Inspection Neck: Positive for: Normal, Painless ROM Cardiovascular/Chest: Positive for: Regular Rate, Rhythm, Chest Non Tender, Other (catheter right chest wall: serous drainage, no fluctuance) Respiratory: Positive for: Normal Breath Sounds. Negative for: Respiratory Distress Gastrointestinal/Abdominal: Positive for: Soft, Other (belly benign ). Negative for: Tenderness Extremity: Positive for: Normal ROM Neurologic/Psych: Positive for: Alert, Oriented (x3) - Laboratory Results Result Diagrams: 03/23/17 12:50 03/23/17 12:50 - ECG Interpretation Of ECG: NSR @ 88, no ST-T changes. O2 Sat by Pulse Oximetry: 95 (RA) Pulse Ox Interpretation: Normal - Radiology X-Ray: Read By Radiologist X-Ray Interpretation: No Acute Disease - Physician Consult Information Time Consulting Physican Contacted: 14:32 Physician Contacted: Fredis Benedict Medical Decision Making Medical Decision Making: Time: 12:33 Impression: Medical Problem - general Differential diagnosis includes but is not limited to fever, end stage renal disease, missed dialysis treatment. Plan: * VBG * ED EKG * CMP * CBC (with differential) * PTT * Prothrombin Time * Blood Culture * Urine Culture * Wound Culture and Gram Stain * Urinalysis * Chest Portable [RAD] * Reevaluation Scribe Attestation: Documented by Emily Muñoz, acting as a scribe for Laura Arnold MD. Provider Scribe Attestation: All medical record entries made by the Scribe were at my direction and personally dictated by me. I have reviewed the chart and agree that the record accurately reflects my personal performance of the history, physical exam, medical decision making, and the department course for this patient. I have also personally directed, reviewed, and agree with the discharge instructions and disposition. Disposition - Clinical Impression Clinical Impression: Fever, ESRD (end stage renal disease) on dialysis - Patient ED Disposition Is Patient to be Admitted: Yes - Disposition Disposition Time: 14:29 Condition: GUARDED - Pt Status Changed To: Hospital Disposition Of: Inpatient - Admit Certification Admit to Inpatient:: After my assessment, the patient will require hospitalization for at least two midnights. This is because of the severity of symptoms shown, intensity of services needed, and/or the medical risk in this patient being treated as an outpatient. - POA Present On Arrival: Surgical Site Infection
[2017-03-23 13:03] LABS: VENOUS BLOOD GAS BASE EXCESS -2.9 mmol/L (0.0-2.0); VENOUS BLOOD GAS PCO2 38 mmHg (40-60); VENOUS BLOOD PH 7.37 (7.32-7.43)
--- NOTE | 2017-03-23 13:21 | RAD ---
HISTORY: Fever COMPARISON: 03/01/2017 FINDINGS: The right-sided dialysis catheter terminates at the cavoatrial junction. LUNGS: The lungs are well inflated and clear. PLEURA: No significant pleural effusion identified, no pneumothorax apparent. CARDIOVASCULAR: There is persistent mild cardiomegaly. Atherosclerotic aortic arch calcifications are present. OSSEOUS STRUCTURES: Within normal limits for the patient's age. VISUALIZED UPPER ABDOMEN: Normal. OTHER FINDINGS: None. IMPRESSION: No acute findings. No significant interval change.
[2017-03-23 13:27] LABS: BASO % 0.4 % (0.0-2.0); EOS # 0.1 K/uL (0.0-0.7); EOS % 1.3 % (0.0-4.0); HEMATOCRIT 39.3 % (34.0-47.0); LYMPH # 0.5 K/uL (1.0-4.3); LYMPH % 5.5 % (20.0-40.0); MEAN CELL VOLUME 86.1 fl (81.0-99.0); MEAN CORPUSCULAR HEMOGLOBIN 28.1 pg (27.0-31.0); MEAN CORPUSCULAR HGB CONC 32.6 g/dL (33.0-37.0); MEAN PLATELET VOLUME 10.7 fl (7.2-11.7); MONO # 0.5 K/uL (0.0-0.8); MONO % 5.2 % (0.0-10.0); NEUT % 87.6 % (50.0-75.0); PLATELET COUNT 128 K/uL (130-400); WHITE BLOOD COUNT 9.2 K/uL (4.8-10.8)
[2017-03-23 13:42] LABS: ALB/GLOB RATIO 1.5 (1.0-2.1); BILIRUBIN,TOTAL 0.6 mg/dl (0.2-1.3); CALCIUM 10.1 mg/dL (8.4-10.2); TOTAL PROTEIN 7.3 G/DL (6.3-8.2)
[2017-03-23 13:43] LABS: PARTIAL THROMBOPLASTIN TIME 29.1 Seconds (25.6-37.1); POTASSIUM 5.1 MMOL/L (3.6-5.0)
[2017-03-23] MEDS ORDERED: Sod Polystyrene Sulf 15 gm/60 ml Oral Susp PO STA (13:50)
[2017-03-23 14:22] LABS: RBC URINE 1 /hpf (0-3); URINE BILIRUBIN NEGATIVE (NEGATIVE); URINE BLOOD NEGATIVE (NEGATIVE); URINE COLOR YELLOW (YELLOW); URINE GLUCOSE (UA) NEG (Normal); URINE KETONE NEGATIVE (NEGATIVE); URINE LEUKOCYTE ESTERASE NEG Leu/uL (Negative); URINE PROTEIN 100 mg/dL (NEGATIVE); URINE UROBILINOGEN 0.2-1.0 mg/dL (0.2-1.0); WBC URINE 2 /hpf (0-5)
[2017-03-23] MEDS ORDERED: Sod Polystyrene Sulf 15 gm/60 ml Oral Susp ONE (14:23)
[2017-03-23] MEDS ORDERED: Vancomycin 1 g Inj ONE (14:23)
[2017-03-23 15:57] LABS: NEUTROPHIL 86 % (42-75); TOTAL CELLS COUNTED 100
[2017-03-23 15:58] LABS: BASOPHIL 1 % (0-2); EOSINOPHIL 2 % (0-7)
--- NOTE | 2017-03-23 18:20 | CARD ---
APPROVED REPORT EKG Measurement Heart [id number] <Conclusion> Normal sinus rhythm Possible Left atrial enlargement Borderline ECG
[2017-03-24] MEDS: Enoxaparin 30 mg Syringe SC SCH (09:08)
[2017-03-24] MEDS: Multivitamin Vitamin B Complex (Nephro-Vite) Tab PO SCH (09:10)
--- NOTE | 2017-03-24 10:10 | CP.PCM.HP ---
History of Present Illness - History of Present Illness History of Present Illness: This is a 76 y/o female with hx of alzheimer's and CKD on HD admitted for fever for 1 day noted by the visiting nurse. She apparently missed her HD for a week as she refuse to be transported to HD center. Past Patient History - Infectious Disease Hx of Infectious Diseases: None - Tetanus Immunizations Tetanus Immunization: Unknown - Past Medical History & Family History Past Medical History?: Yes - Past Social History Smoking Status: Never Smoked - CARDIAC Hx Hypercholesterolemia: Yes Hx Hypertension: Yes - PULMONARY Hx Respiratory Disorders: No - NEUROLOGICAL Hx Alzheimer's Disease: Yes Hx Migraine: Yes - HEENT Hx HEENT Problems: No - RENAL Hx Chronic Kidney Disease: Yes Hx Kidney Stones: Yes - ENDOCRINE/METABOLIC Hx Endocrine Disorders: No - HEMATOLOGICAL/ONCOLOGICAL Hx Anemia: Yes - INTEGUMENTARY Hx Dermatological Problems: Yes - MUSCULOSKELETAL/RHEUMATOLOGICAL Hx Musculoskeletal Disorders: No Hx Falls: No - GASTROINTESTINAL Hx Diverticulitis: Yes - GENITOURINARY/GYNECOLOGICAL Hx Genitourinary Disorders: Yes - PSYCHIATRIC Hx Psychophysiologic Disorder: No Hx Substance Use: No - SURGICAL HISTORY Hx Appendectomy: Yes Hx Tonsillectomy: Yes - ANESTHESIA Hx Anesthesia: Yes Hx Anesthesia Reactions: No Hx Malignant Hyperthermia: No Has any member of the family had a problem w/ anesthesia?: No Meds Allergies/Adverse Reactions: Allergies Allergy/AdvReac Type Severity Reaction Status Date / Time No Known Allergies Allergy Verified 03/23/17 13:05 Results - Vital Signs Recent Vital Signs: Last Vital Signs Temp 99.2 F 03/24/17 08:06 Pulse 77 03/24/17 08:06 Resp 16 03/24/17 08:06 BP 133/56 L 03/24/17 08:06 Pulse Ox 98 03/24/17 08:06 - Labs Result Diagrams: 03/23/17 12:50 03/23/17 12:50
--- NOTE | 2017-03-24 12:43 | CP.PCM.CON ---
History of Present Illness - History of Present Illness History of Present Illness: 76 y/o female with ESRD on maintenance HD 2xwk, HTN, Dementia was admitted yesterday because Pt did not have dialysis for a wk. Per daughter Pt had missed 3 dialysis treatments Had dialysis last night. no c/o fever chills. On admission temp was 99.2 Past Patient History - Infectious Disease Hx of Infectious Diseases: None - Tetanus Immunizations Tetanus Immunization: Unknown - Past Medical History & Family History Past Medical History?: Yes - Past Social History Smoking Status: Never Smoked - CARDIAC Hx Hypercholesterolemia: Yes Hx Hypertension: Yes - PULMONARY Hx Respiratory Disorders: No - NEUROLOGICAL Hx Alzheimer's Disease: Yes Hx Migraine: Yes - HEENT Hx HEENT Problems: No - RENAL Hx Chronic Kidney Disease: Yes Hx Kidney Stones: Yes - ENDOCRINE/METABOLIC Hx Endocrine Disorders: No - HEMATOLOGICAL/ONCOLOGICAL Hx Anemia: Yes - INTEGUMENTARY Hx Dermatological Problems: Yes - MUSCULOSKELETAL/RHEUMATOLOGICAL Hx Musculoskeletal Disorders: No Hx Falls: No - GASTROINTESTINAL Hx Diverticulitis: Yes - GENITOURINARY/GYNECOLOGICAL Hx Genitourinary Disorders: Yes - PSYCHIATRIC Hx Psychophysiologic Disorder: No Hx Substance Use: No - SURGICAL HISTORY Hx Appendectomy: Yes Hx Tonsillectomy: Yes - ANESTHESIA Hx Anesthesia: Yes Hx Anesthesia Reactions: No Hx Malignant Hyperthermia: No Has any member of the family had a problem w/ anesthesia?: No Meds Allergies/Adverse Reactions: Allergies Allergy/AdvReac Type Severity Reaction Status Date / Time No Known Allergies Allergy Verified 03/23/17 13:05 - Medications Medications: Current Medications Acetaminophen (Tylenol 325mg Tab) 650 mg PO Q6 PRN PRN Reason: Fever >100.4 F Last Admin: 03/23/17 23:48 Dose: 650 mg Alprazolam (Xanax) 0.5 mg PO HS [facility] Last Admin: 03/23/17 21:49 Dose: 0.5 mg Amlodipine Besylate (Norvasc) 5 mg PO DAILY [facility] Last Admin: 03/24/17 09:11 Dose: 5 mg Atorvastatin Calcium (Lipitor) 20 mg PO DAILY [facility] Last Admin: 03/24/17 09:12 Dose: 20 mg Calcitriol (Rocaltrol) 0.25 mcg PO Q48H [facility] Last Admin: 03/23/17 20:24 Dose: 0.25 mcg Calcium Acetate (Phoslo) 1,334 mg PO TID [facility] Last Admin: 03/24/17 09:08 Dose: 1,334 mg Enoxaparin Sodium (Lovenox) 30 mg SC DAILY [facility] PRN Reason: Protocol Last Admin: 03/24/17 09:08 Dose: 30 mg Hydralazine HCl (Apresoline) 25 mg PO BID [facility] Last Admin: 03/24/17 09:12 Dose: 25 mg Piperacillin Sod/Tazobactam (Sod 2.25 gm/ Sodium Chloride) 100 mls @ 100 mls/ hr IVPB Q8 [facility] Last Admin: 03/24/17 09:07 Dose: 100 mls/hr Labetalol HCl (Trandate) 100 mg PO BID [facility] Last Admin: 03/24/17 09:09 Dose: 100 mg Lisinopril (Zestril) 5 mg PO DAILY [facility] Last Admin: 03/24/17 09:10 Dose: 5 mg Mirtazapine (Remeron) 7.5 mg PO HS [facility] Last Admin: 03/23/17 22:00 Dose: Not Given Oxycodone/Acetaminophen (Percocet 5/325 Mg Tab) 1 tab PO Q4H PRN PRN Reason: Pain, severe (8-10) Stop: 03/26/17 18:47 Vitamin B Complex/Vit C/Folic Acid (Nephro-Valentino) 1 tab PO DAILY [facility] Last Admin: 03/24/17 09:10 Dose: 1 tab Physical Exam - Constitutional Appears: No Acute Distress Additional comments: Appears comfortable supine - Head Exam Head Exam: ATRAUMATIC, NORMOCEPHALIC - Eye Exam Eye Exam: Normal appearance - ENT Exam ENT Exam: Mucous Membranes Moist - Neck Exam Additional comments: neck supple - Respiratory Exam Additional comments: Lungs clear - Cardiovascular Exam Cardiovascular Exam: REGULAR RHYTHM - GI/Abdominal Exam GI & Abdominal Exam: Soft - Extremities Exam Additional comments: No ECC Results - Vital Signs Recent Vital Signs: Last Vital Signs Temp 98 F 03/24/17 12:07 Pulse 81 03/24/17 12:07 Resp 16 03/24/17 12:07 BP 125/56 L 03/24/17 12:07 Pulse Ox 97 03/24/17 12:07 - Labs Result Diagrams: 03/23/17 12:50 03/23/17 12:50 Assessment & Plan - Assessment and Plan (Free Text) Assessment: ESRD HTN Dementia Plan: Extra dialysis is scheduled for toay then @xwk schedule BP is controlled Labs with dialysis
[2017-03-24] MEDS: Oxycodone/Acetaminophen 5/325 mg Tab PO PRN (14:32)
[2017-03-24 16:01] LABS: CALCIUM 8.8 mg/dL (8.4-10.2); PHOSPHOROUS 3.2 mg/dl (2.5-4.5)
[2017-03-24 16:02] LABS: HEMATOCRIT 35.5 % (34.0-47.0); MEAN CELL VOLUME 84.8 fl (81.0-99.0); MEAN CORPUSCULAR HEMOGLOBIN 27.9 pg (27.0-31.0); MEAN CORPUSCULAR HGB CONC 32.9 g/dL (33.0-37.0); RED CELL DISTRIBUTION WIDTH 15.2 % (11.5-14.5); WHITE BLOOD COUNT 8.9 K/uL (4.8-10.8)
[2017-03-24 16:19] LABS: POTASSIUM 3.4 MMOL/L (3.6-5.0)
[2017-03-25 07:49] LABS: HEMATOCRIT 37.1 % (34.0-47.0); MEAN CELL VOLUME 85.1 fl (81.0-99.0); MEAN CORPUSCULAR HEMOGLOBIN 28.4 pg (27.0-31.0); MEAN CORPUSCULAR HGB CONC 33.4 g/dL (33.0-37.0); RED CELL DISTRIBUTION WIDTH 14.6 % (11.5-14.5); WHITE BLOOD COUNT 6.9 K/uL (4.8-10.8)
[2017-03-25 08:09] LABS: ALB/GLOB RATIO 1.3 (1.0-2.1); BILIRUBIN,TOTAL 0.5 mg/dl (0.2-1.3); POTASSIUM 3.4 MMOL/L (3.6-5.0); TOTAL PROTEIN 6.5 G/DL (6.3-8.2)
[2017-03-25] MEDS: Enoxaparin 30 mg Syringe SC SCH (08:29)
[2017-03-25] MEDS: Multivitamin Vitamin B Complex (Nephro-Vite) Tab PO SCH (08:31)
--- NOTE | 2017-03-25 10:14 | CP.PCM.PN ---
Subjective - Date & Time of Evaluation Date of Evaluation: 03/25/17 Time of Evaluation: 10:12 - Subjective Subjective: Afebrile Has no chest pain or SOB Noted staph aureus on blood C and S. Objective - Vital Signs/Intake and Output Vital Signs (last 24 hours): Temp Pulse Resp BP Pulse Ox 97.8 F 77 20 158/73 H 99 03/25/17 08:00 03/25/17 08:32 03/25/17 08:00 03/25/17 08:32 03/25/17 08:00 - Medications Medications: Current Medications Acetaminophen (Tylenol 325mg Tab) 650 mg PO Q6 PRN PRN Reason: Fever >100.4 F Last Admin: 03/23/17 23:48 Dose: 650 mg Alprazolam (Xanax) 0.5 mg PO HS [facility] Last Admin: 03/24/17 21:46 Dose: 0.5 mg Amlodipine Besylate (Norvasc) 5 mg PO DAILY [facility] Last Admin: 03/25/17 08:31 Dose: 5 mg Atorvastatin Calcium (Lipitor) 20 mg PO DAILY [facility] Last Admin: 03/25/17 08:30 Dose: 20 mg Calcitriol (Rocaltrol) 0.25 mcg PO Q48H [facility] Last Admin: 03/23/17 20:24 Dose: 0.25 mcg Calcium Acetate (Phoslo) 1,334 mg PO TID [facility] Last Admin: 03/25/17 08:24 Dose: 1,334 mg Enoxaparin Sodium (Lovenox) 30 mg SC DAILY [facility] PRN Reason: Protocol Last Admin: 03/25/17 08:29 Dose: 30 mg Hydralazine HCl (Apresoline) 25 mg PO BID [facility] Last Admin: 03/25/17 08:32 Dose: 25 mg Piperacillin Sod/Tazobactam (Sod 2.25 gm/ Sodium Chloride) 100 mls @ 100 mls/ hr IVPB Q8@0500,1300,2100 [facility] Last Admin: 03/25/17 04:39 Dose: 100 mls/hr Labetalol HCl (Trandate) 100 mg PO BID [facility] Last Admin: 03/25/17 08:29 Dose: 100 mg Lisinopril (Zestril) 5 mg PO DAILY [facility] Last Admin: 03/25/17 08:30 Dose: 5 mg Mirtazapine (Remeron) 7.5 mg PO HS [facility] Last Admin: 03/24/17 21:41 Dose: 7.5 mg Oxycodone/Acetaminophen (Percocet 5/325 Mg Tab) 1 tab PO Q4H PRN PRN Reason: Pain, severe (8-10) Stop: 03/26/17 18:47 Last Admin: 03/24/17 14:32 Dose: 1 tab Vitamin B Complex/Vit C/Folic Acid (Nephro-Valentino) 1 tab PO DAILY [facility] Last Admin: 03/25/17 08:31 Dose: 1 tab - Labs Labs: 03/25/17 07:15 03/25/17 06:00 PT 10.3 Seconds (9.8-13.1) 03/23/17 12:50 INR 1.0 (0.9-1.2) 03/23/17 12:50 APTT 29.1 Seconds (25.6-37.1) 03/23/17 12:50
--- NOTE | 2017-03-25 12:00 | CP.PCM.PN ---
Subjective - Date & Time of Evaluation Date of Evaluation: 03/25/17 Time of Evaluation: 11:45 - Subjective Subjective: Feels better today Objective - Vital Signs/Intake and Output Vital Signs (last 24 hours): Temp Pulse Resp BP Pulse Ox 97.8 F 68 20 158/73 H 99 03/25/17 08:00 03/25/17 09:00 03/25/17 08:00 03/25/17 08:32 03/25/17 08:00 - Medications Medications: Current Medications Acetaminophen (Tylenol 325mg Tab) 650 mg PO Q6 PRN PRN Reason: Fever >100.4 F Last Admin: 03/23/17 23:48 Dose: 650 mg Alprazolam (Xanax) 0.5 mg PO HS [facility] Last Admin: 03/24/17 21:46 Dose: 0.5 mg Amlodipine Besylate (Norvasc) 5 mg PO DAILY [facility] Last Admin: 03/25/17 08:31 Dose: 5 mg Atorvastatin Calcium (Lipitor) 20 mg PO DAILY [facility] Last Admin: 03/25/17 08:30 Dose: 20 mg Calcitriol (Rocaltrol) 0.25 mcg PO Q48H [facility] Last Admin: 03/23/17 20:24 Dose: 0.25 mcg Calcium Acetate (Phoslo) 1,334 mg PO TID [facility] Last Admin: 03/25/17 08:24 Dose: 1,334 mg Enoxaparin Sodium (Lovenox) 30 mg SC DAILY [facility] PRN Reason: Protocol Last Admin: 03/25/17 08:29 Dose: 30 mg Hydralazine HCl (Apresoline) 25 mg PO BID [facility] Last Admin: 03/25/17 08:32 Dose: 25 mg Piperacillin Sod/Tazobactam (Sod 2.25 gm/ Sodium Chloride) 100 mls @ 100 mls/ hr IVPB Q8@0500,1300,2100 [facility] Last Admin: 03/25/17 04:39 Dose: 100 mls/hr Labetalol HCl (Trandate) 100 mg PO BID [facility] Last Admin: 03/25/17 08:29 Dose: 100 mg Lisinopril (Zestril) 5 mg PO DAILY [facility] Last Admin: 03/25/17 08:30 Dose: 5 mg Mirtazapine (Remeron) 7.5 mg PO HS [facility] Last Admin: 03/24/17 21:41 Dose: 7.5 mg Oxycodone/Acetaminophen (Percocet 5/325 Mg Tab) 1 tab PO Q4H PRN PRN Reason: Pain, severe (8-10) Stop: 03/26/17 18:47 Last Admin: 03/24/17 14:32 Dose: 1 tab Vitamin B Complex/Vit C/Folic Acid (Nephro-Valentino) 1 tab PO DAILY [facility] Last Admin: 03/25/17 08:31 Dose: 1 tab - Labs Labs: 03/25/17 07:15 03/25/17 06:00 PT 10.3 Seconds (9.8-13.1) 03/23/17 12:50 INR 1.0 (0.9-1.2) 03/23/17 12:50 APTT 29.1 Seconds (25.6-37.1) 03/23/17 12:50 - Respiratory Exam Additional comments: Lungs clear - Cardiovascular Exam Cardiovascular Exam: REGULAR RHYTHM - Extremities Exam Additional comments: No edema Assessment and Plan - Assessment and Plan (Free Text) Assessment: ESRD HTN Plan: Continue HD per schedule ie Mon & Fri
[2017-03-25] MEDS: Oxycodone/Acetaminophen 5/325 mg Tab PO PRN ×2 (13:25→21:12)
[2017-03-26] MEDS: Enoxaparin 30 mg Syringe SC SCH (08:26)
[2017-03-26] MEDS: Multivitamin Vitamin B Complex (Nephro-Vite) Tab PO SCH (08:27)
--- NOTE | 2017-03-26 10:55 | CP.PCM.PN ---
Subjective - Date & Time of Evaluation Date of Evaluation: 03/26/17 Time of Evaluation: 10:52 - Subjective Subjective: Patient in bed awake and conscious Daughter at the bedside Daughter stated that she is intermittently forget what she is saying and she doesn't remember things consistent with Alzheimer or chronic organic brain syndrome intermittently Objective - Vital Signs/Intake and Output Vital Signs (last 24 hours): Temp Pulse Resp BP Pulse Ox 97.6 F 73 18 177/61 H 99 03/26/17 08:00 03/26/17 08:31 03/26/17 08:00 03/26/17 08:31 03/26/17 08:00 - Medications Medications: Current Medications Acetaminophen (Tylenol 325mg Tab) 650 mg PO Q6 PRN PRN Reason: Fever >100.4 F Last Admin: 03/25/17 16:46 Dose: 650 mg Alprazolam (Xanax) 0.5 mg PO HS [facility] Last Admin: 03/25/17 21:09 Dose: 0.5 mg Amlodipine Besylate (Norvasc) 5 mg PO DAILY [facility] Last Admin: 03/26/17 08:31 Dose: 5 mg Atorvastatin Calcium (Lipitor) 20 mg PO DAILY [facility] Last Admin: 03/26/17 08:27 Dose: 20 mg Calcitriol (Rocaltrol) 0.25 mcg PO Q48H [facility] Last Admin: 03/25/17 21:10 Dose: 0.25 mcg Calcium Acetate (Phoslo) 1,334 mg PO TID [facility] Last Admin: 03/26/17 08:27 Dose: 1,334 mg Enoxaparin Sodium (Lovenox) 30 mg SC DAILY [facility] PRN Reason: Protocol Last Admin: 03/26/17 08:26 Dose: 30 mg Hydralazine HCl (Apresoline) 25 mg PO BID [facility] Last Admin: 03/26/17 08:30 Dose: 25 mg Piperacillin Sod/Tazobactam (Sod 2.25 gm/ Sodium Chloride) 100 mls @ 100 mls/ hr IVPB Q8@0500,1300,2100 [facility] Last Admin: 03/26/17 06:37 Dose: 100 mls/hr Labetalol HCl (Trandate) 100 mg PO BID [facility] Last Admin: 03/26/17 08:30 Dose: 100 mg Lisinopril (Zestril) 5 mg PO DAILY [facility] Last Admin: 03/26/17 08:27 Dose: 5 mg Mirtazapine (Remeron) 7.5 mg PO HS [facility] Last Admin: 03/25/17 21:10 Dose: 7.5 mg Oxycodone/Acetaminophen (Percocet 5/325 Mg Tab) 1 tab PO Q4H PRN PRN Reason: Pain, severe (8-10) Stop: 03/26/17 18:47 Last Admin: 03/25/17 21:12 Dose: 1 tab Vitamin B Complex/Vit C/Folic Acid (Nephro-Valentino) 1 tab PO DAILY [facility] Last Admin: 03/26/17 08:27 Dose: 1 tab - Labs Labs: 03/25/17 07:15 03/25/17 06:00 PT 10.3 Seconds (9.8-13.1) 03/23/17 12:50 INR 1.0 (0.9-1.2) 03/23/17 12:50 APTT 29.1 Seconds (25.6-37.1) 03/23/17 12:50 - Constitutional Appears: No Acute Distress - Respiratory Exam Respiratory Exam: absent: Chest Wall Tenderness - Cardiovascular Exam Cardiovascular Exam: REGULAR RHYTHM. absent: Rubs - Extremities Exam Extremities Exam: absent: Calf Tenderness - Back Exam Back Exam: absent: CVA tenderness (L), CVA tenderness (R) - Neurological Exam Neurological Exam: Altered Assessment and Plan (1) ESRD (end stage renal disease) on dialysis Assessment & Plan: End stage renal disease on maintenance hemodialysis twice a week Sunday and Sunday She was scheduled to have dialysis shortly Patient admitted with fever blood culture to grow Staphylococcus vancomycin was added Follow-up plan need to remove the dialysis catheter in the subclavian area today post hemodialysis Keep the patient free from the dialysis catheter for couple of days until blood culture is negative And to be reinserted again And meantime patient have in the left arm transposition of AV fistula and has very poor bruit Status: Acute
[2017-03-26] MEDS: Oxycodone/Acetaminophen 5/325 mg Tab PO PRN (14:24)
[2017-03-26] MEDS: Mupirocin 2% Cream TOP SCH (17:12)
[2017-03-27] MEDS: Mupirocin 2% Cream TOP SCH ×2 (09:28→17:41)
[2017-03-27] MEDS: Multivitamin Vitamin B Complex (Nephro-Vite) Tab PO SCH (09:57)
--- NOTE | 2017-03-27 10:45 | CP.PCM.PN ---
Subjective - Date & Time of Evaluation Date of Evaluation: 03/27/17 Time of Evaluation: 10:43 - Subjective Subjective: Patient feels 'ok'. No complaints at time of this visit. Seen lying in bed, resting comfortably in no distress. Initial wound and blood cultures + staph, pt is on vanco/zosyn. Repeat cultures have been negative. I was informed the catheter to be removed. To be replaced later this week. Objective - Vital Signs/Intake and Output Vital Signs (last 24 hours): Temp Pulse Resp BP Pulse Ox 98.0 F 90 18 180/70 H 98 03/27/17 08:00 03/27/17 09:59 03/27/17 08:00 03/27/17 09:59 03/27/17 08:00 - Medications Medications: Current Medications Acetaminophen (Tylenol 325mg Tab) 650 mg PO Q6 PRN PRN Reason: Fever >100.4 F Last Admin: 03/25/17 16:46 Dose: 650 mg Alprazolam (Xanax) 0.5 mg PO HS [facility] Last Admin: 03/26/17 21:33 Dose: 0.5 mg Amlodipine Besylate (Norvasc) 5 mg PO DAILY [facility] Last Admin: 03/27/17 09:59 Dose: 5 mg Atorvastatin Calcium (Lipitor) 20 mg PO DAILY [facility] Last Admin: 03/27/17 09:58 Dose: 20 mg Calcitriol (Rocaltrol) 0.25 mcg PO Q48H [facility] Last Admin: 03/25/17 21:10 Dose: 0.25 mcg Calcium Acetate (Phoslo) 1,334 mg PO TID [facility] Last Admin: 03/27/17 09:56 Dose: 1,334 mg Enoxaparin Sodium (Lovenox) 30 mg SC DAILY [facility] PRN Reason: Protocol Last Admin: 03/26/17 08:26 Dose: 30 mg Hydralazine HCl (Apresoline) 25 mg PO BID [facility] Last Admin: 03/27/17 09:57 Dose: 25 mg Piperacillin Sod/Tazobactam (Sod 2.25 gm/ Sodium Chloride) 100 mls @ 100 mls/ hr IVPB Q8@0500,1300,2100 [facility] Last Admin: 03/27/17 04:04 Dose: 100 mls/hr Labetalol HCl (Trandate) 100 mg PO BID [facility] Last Admin: 03/27/17 09:58 Dose: 100 mg Lisinopril (Zestril) 5 mg PO DAILY [facility] Last Admin: 03/27/17 09:58 Dose: 5 mg Mirtazapine (Remeron) 7.5 mg PO HS [facility] Last Admin: 03/26/17 21:33 Dose: 7.5 mg Mupirocin (Bactroban Cream) 1 applic TOP BID [facility] Last Admin: 03/26/17 17:12 Dose: 1 applic Vitamin B Complex/Vit C/Folic Acid (Nephro-Valentino) 1 tab PO DAILY [facility] Last Admin: 03/27/17 09:57 Dose: 1 tab - Labs Labs: 03/25/17 07:15 03/25/17 06:00 PT 10.3 Seconds (9.8-13.1) 03/23/17 12:50 INR 1.0 (0.9-1.2) 03/23/17 12:50 APTT 29.1 Seconds (25.6-37.1) 03/23/17 12:50 - Constitutional Appears: No Acute Distress - Head Exam Head Exam: ATRAUMATIC, NORMAL INSPECTION, NORMOCEPHALIC - Eye Exam Eye Exam: EOMI, Normal appearance, PERRL - Respiratory Exam Respiratory Exam: Decreased Breath Sounds, Wheezes (mild scattere), NORMAL BREATHING PATTERN. absent: Rales, Respiratory Distress, Stridor - Cardiovascular Exam Cardiovascular Exam: REGULAR RHYTHM, +S1, +S2 Additional comments: distant heart sounds - GI/Abdominal Exam GI & Abdominal Exam: Soft, Normal Bowel Sounds. absent: Distended, Guarding, Tenderness - Rectal Exam Rectal Exam: Deferred - Neurological Exam Neurological Exam: Alert, Awake, CN II-XII Intact - Psychiatric Exam Psychiatric exam: Normal Affect, Normal Mood - Skin Skin Exam: Dry, Intact, Normal Color, Warm Additional comments: right chest: catheter in place: surrounding skin has mild erythema, appears to be reaction to adhesive no pus or drainage, nontender Assessment and Plan - Assessment and Plan (Free Text) Assessment: 76 year old female with hx of ESRD on HD admitted after missing multiple rounds of HD. Her initial wound and blood cultures were positive for staph. She is currently on vancomycin and zosyn. Repeat cultures have been negative to date. She is afebrile, no leukocytosis. She will have catheter removed. Will be replaced in a few days. A: #Bacteremia #ESRD on HD #HTN #Thrombocytopenia #DVT prophylaxis P: Continue IV vanco/zosyn BP elevated this AM prior to medication administration, repeat and monitor. She is getting HD as per Nephro thrombocytopenia is chronic, monitor plts Lovenox renally dosed Case d/w attending.
--- NOTE | 2017-03-27 10:47 | CP.PCM.PN ---
Subjective - Date & Time of Evaluation Date of Evaluation: 03/27/17 Time of Evaluation: 10:45 - Subjective Subjective: Patient is awake consciousness Patient eating better Her mind is much better Objective - Vital Signs/Intake and Output Vital Signs (last 24 hours): Temp Pulse Resp BP Pulse Ox 98.0 F 90 18 180/70 H 98 03/27/17 08:00 03/27/17 09:59 03/27/17 08:00 03/27/17 09:59 03/27/17 08:00 - Medications Medications: Current Medications Acetaminophen (Tylenol 325mg Tab) 650 mg PO Q6 PRN PRN Reason: Fever >100.4 F Last Admin: 03/25/17 16:46 Dose: 650 mg Alprazolam (Xanax) 0.5 mg PO HS [facility] Last Admin: 03/26/17 21:33 Dose: 0.5 mg Amlodipine Besylate (Norvasc) 5 mg PO DAILY [facility] Last Admin: 03/27/17 09:59 Dose: 5 mg Atorvastatin Calcium (Lipitor) 20 mg PO DAILY [facility] Last Admin: 03/27/17 09:58 Dose: 20 mg Calcitriol (Rocaltrol) 0.25 mcg PO Q48H [facility] Last Admin: 03/25/17 21:10 Dose: 0.25 mcg Calcium Acetate (Phoslo) 1,334 mg PO TID [facility] Last Admin: 03/27/17 09:56 Dose: 1,334 mg Clonidine HCl (Catapres) 0.1 mg PO TID [facility] Enoxaparin Sodium (Lovenox) 30 mg SC DAILY [facility] PRN Reason: Protocol Last Admin: 03/26/17 08:26 Dose: 30 mg Hydralazine HCl (Apresoline) 25 mg PO BID [facility] Last Admin: 03/27/17 09:57 Dose: 25 mg Piperacillin Sod/Tazobactam (Sod 2.25 gm/ Sodium Chloride) 100 mls @ 100 mls/ hr IVPB Q8@0500,1300,2100 [facility] Last Admin: 03/27/17 04:04 Dose: 100 mls/hr Labetalol HCl (Trandate) 100 mg PO BID [facility] Last Admin: 03/27/17 09:58 Dose: 100 mg Lisinopril (Zestril) 5 mg PO DAILY [facility] Last Admin: 03/27/17 09:58 Dose: 5 mg Mirtazapine (Remeron) 7.5 mg PO HS [facility] Last Admin: 03/26/17 21:33 Dose: 7.5 mg Mupirocin (Bactroban Cream) 1 applic TOP BID [facility] Last Admin: 03/26/17 17:12 Dose: 1 applic Vitamin B Complex/Vit C/Folic Acid (Nephro-Valentino) 1 tab PO DAILY [facility] Last Admin: 03/27/17 09:57 Dose: 1 tab - Labs Labs: 03/25/17 07:15 03/25/17 06:00 PT 10.3 Seconds (9.8-13.1) 03/23/17 12:50 INR 1.0 (0.9-1.2) 03/23/17 12:50 APTT 29.1 Seconds (25.6-37.1) 03/23/17 12:50 - Constitutional Appears: No Acute Distress - ENT Exam ENT Exam: Mucous Membranes Moist - Respiratory Exam Respiratory Exam: absent: Chest Wall Tenderness - Cardiovascular Exam Cardiovascular Exam: REGULAR RHYTHM. absent: Rubs - GI/Abdominal Exam GI & Abdominal Exam: Normal Bowel Sounds - Extremities Exam Extremities Exam: absent: Calf Tenderness - Back Exam Back Exam: absent: CVA tenderness (L), CVA tenderness (R) - Neurological Exam Neurological Exam: Altered Assessment and Plan (1) ESRD (end stage renal disease) on dialysis Assessment & Plan: Patient admitted with fever and staphylococcus sepsis responded to current antibiotics Patient to have removal of the dialysis catheter and reinserted of the blood culture by Hemodialysis Sunday and Sunday Status: Acute
--- NOTE | 2017-03-27 11:39 | CP.PCM.CON ---
History of Present Illness - History of Present Illness History of Present Illness: Vascular Surgery- Dr. Whitlock 76F w/ ESRD HD 2xwk, HTN, Dementia admitted did not have dialysis for one week. Per daughter Pt had missed 3 dialysis treatments. Pt has right permacath IJ permacath and left AV fistula w/ palpable thrill. Currently denies: F/C CP/SOB N/V/D numbness or tingling in extremities. PMH: ESRD, HTN, HLD PSH: Appendectomy, , tonsillectomy, Permacath placement, L AV fistula, AV fistula revision ALL: NKDA SocialHx: denies ETOH, tobacco, illicit drug use Review of Systems - Review of Systems All systems: reviewed and no additional remarkable complaints except - Constitutional Constitutional: As Per HPI Past Patient History - Infectious Disease Hx of Infectious Diseases: None - Tetanus Immunizations Tetanus Immunization: Unknown - Past Medical History & Family History Past Medical History?: Yes - Past Social History Smoking Status: Never Smoked - CARDIAC Hx Hypercholesterolemia: Yes Hx Hypertension: Yes - PULMONARY Hx Respiratory Disorders: No - NEUROLOGICAL Hx Alzheimer's Disease: Yes Hx Migraine: Yes - HEENT Hx HEENT Problems: No - RENAL Hx Chronic Kidney Disease: Yes Hx Kidney Stones: Yes - ENDOCRINE/METABOLIC Hx Endocrine Disorders: No - HEMATOLOGICAL/ONCOLOGICAL Hx Anemia: Yes - INTEGUMENTARY Hx Dermatological Problems: Yes - MUSCULOSKELETAL/RHEUMATOLOGICAL Hx Musculoskeletal Disorders: No Hx Falls: No - GASTROINTESTINAL Hx Diverticulitis: Yes - GENITOURINARY/GYNECOLOGICAL Hx Genitourinary Disorders: Yes - PSYCHIATRIC Hx Psychophysiologic Disorder: No Hx Substance Use: No - SURGICAL HISTORY Hx Appendectomy: Yes Hx Tonsillectomy: Yes - ANESTHESIA Hx Anesthesia: Yes Hx Anesthesia Reactions: No Hx Malignant Hyperthermia: No Has any member of the family had a problem w/ anesthesia?: No Meds Allergies/Adverse Reactions: Allergies Allergy/AdvReac Type Severity Reaction Status Date / Time No Known Allergies Allergy Verified 03/23/17 13:05 - Medications Medications: Current Medications Acetaminophen (Tylenol 325mg Tab) 650 mg PO Q6 PRN PRN Reason: Fever >100.4 F Last Admin: 03/25/17 16:46 Dose: 650 mg Alprazolam (Xanax) 0.5 mg PO HS [facility] Last Admin: 03/26/17 21:33 Dose: 0.5 mg Amlodipine Besylate (Norvasc) 5 mg PO DAILY [facility] Last Admin: 03/27/17 09:59 Dose: 5 mg Atorvastatin Calcium (Lipitor) 20 mg PO DAILY [facility] Last Admin: 03/27/17 09:58 Dose: 20 mg Calcitriol (Rocaltrol) 0.25 mcg PO Q48H [facility] Last Admin: 03/25/17 21:10 Dose: 0.25 mcg Calcium Acetate (Phoslo) 1,334 mg PO TID [facility] Last Admin: 03/27/17 09:56 Dose: 1,334 mg Clonidine HCl (Catapres) 0.1 mg PO TID [facility] Enoxaparin Sodium (Lovenox) 30 mg SC DAILY [facility] PRN Reason: Protocol Last Admin: 03/26/17 08:26 Dose: 30 mg Hydralazine HCl (Apresoline) 25 mg PO BID [facility] Last Admin: 03/27/17 09:57 Dose: 25 mg Piperacillin Sod/Tazobactam (Sod 2.25 gm/ Sodium Chloride) 100 mls @ 100 mls/ hr IVPB Q8@0500,1300,2100 [facility] Last Admin: 03/27/17 04:04 Dose: 100 mls/hr Labetalol HCl (Trandate) 100 mg PO BID [facility] Last Admin: 03/27/17 09:58 Dose: 100 mg Lisinopril (Zestril) 5 mg PO DAILY [facility] Last Admin: 03/27/17 09:58 Dose: 5 mg Mirtazapine (Remeron) 7.5 mg PO HS [facility] Last Admin: 03/26/17 21:33 Dose: 7.5 mg Mupirocin (Bactroban Cream) 1 applic TOP BID [facility] Last Admin: 03/26/17 17:12 Dose: 1 applic Vitamin B Complex/Vit C/Folic Acid (Nephro-Valentino) 1 tab PO DAILY [facility] Last Admin: 03/27/17 09:57 Dose: 1 tab Physical Exam - Constitutional Appears: No Acute Distress - Eye Exam Eye Exam: EOMI - ENT Exam ENT Exam: Mucous Membranes Moist - Respiratory Exam Respiratory Exam: Rales, Rhonchi, Wheezes, NORMAL BREATHING PATTERN. absent: Accessory Muscle Use - Cardiovascular Exam Cardiovascular Exam: +S1, +S2 - GI/Abdominal Exam GI & Abdominal Exam: Soft. absent: Distended, Firm, Guarding, Tenderness - Extremities Exam Additional comments: +2 pulses U and LE b/l - Neurological Exam Neurological exam: Alert - Skin Additional comments: yellow granules around permacath port site. Results - Vital Signs Recent Vital Signs: Last Vital Signs Temp 98.0 F 03/27/17 08:00 Pulse 90 03/27/17 09:59 Resp 18 03/27/17 08:00 BP 180/70 H 03/27/17 09:59 Pulse Ox 98 03/27/17 08:00 - Labs Result Diagrams: 03/25/17 07:15 03/25/17 06:00 Assessment & Plan - Assessment and Plan (Free Text) Assessment: 76F ESRD RUE permacath, LUE AV fistula Plan: - Permcath to be pulled by IR today * f/u cultures - plan for new permacath placement for . - medical management - further recs per Dr. Chinyere Olguin PGY1
[2017-03-27] MEDS: Oxycodone/Acetaminophen 5/325 mg Tab PO PRN (13:10)
[2017-03-27] MEDS ORDERED: Lidocaine 1% Inj (20ml) ONE (13:44)
--- NOTE | 2017-03-27 14:23 | PCM.SURG1 ---
Surgeon's Initial Post Op Note - Surgeon's Notes Surgeon: Emery Reyna MD [employer] Inspector: NONE Type of Anesthesia: Local Pre-Operative Diagnosis: HD catheter infection Operative Findings: Right IJV HD catheter. Post-Operative Diagnosis: HD catheter infection Operation Performed: Right tunneled HD catheter removal. TIp sent for culture. Specimen/Specimens Removed: HD catheter Estimated Blood Loss: EBL {In ML}: 0 Blood Products Given: N/A Drains Used: No Drains Post-Op Condition: Fair Date of Surgery/Procedure: 03/27/17 Time of Surgery/Procedure: 14:20
[2017-03-27] MEDS: Enoxaparin 30 mg Syringe SC SCH (16:44)
--- NOTE | 2017-03-28 09:05 | CP.PCM.PN ---
Subjective - Date & Time of Evaluation Date of Evaluation: 03/28/17 Time of Evaluation: 07:20 - Subjective Subjective: Vascular Surgery- Dr. Whitlock Pt S&E at bedside this AM. No acute events overnight. Permcath was pulled yesterday. No swelling or erythema at the site. Denies pain. tolerating current diet. Denies F/C CP/SOB N/V/D. Objective - Vital Signs/Intake and Output Vital Signs (last 24 hours): Temp Pulse Resp BP Pulse Ox 98.0 F 74 18 130/68 98 03/28/17 07:54 03/28/17 07:54 03/28/17 07:54 03/28/17 07:54 03/28/17 07:54 - Medications Medications: Current Medications Acetaminophen (Tylenol 325mg Tab) 650 mg PO Q6 PRN PRN Reason: Fever >100.4 F Last Admin: 03/25/17 16:46 Dose: 650 mg Alprazolam (Xanax) 0.5 mg PO HS [facility] Last Admin: 03/27/17 21:29 Dose: 0.5 mg Amlodipine Besylate (Norvasc) 5 mg PO DAILY [facility] Last Admin: 03/27/17 09:59 Dose: 5 mg Atorvastatin Calcium (Lipitor) 20 mg PO DAILY [facility] Last Admin: 03/27/17 09:58 Dose: 20 mg Calcitriol (Rocaltrol) 0.25 mcg PO Q48H [facility] Last Admin: 03/27/17 18:59 Dose: 0.25 mcg Calcium Acetate (Phoslo) 1,334 mg PO TID [facility] Last Admin: 03/27/17 17:40 Dose: 1,334 mg Clonidine HCl (Catapres) 0.1 mg PO TID [facility] Last Admin: 03/27/17 17:42 Dose: 0.1 mg Enoxaparin Sodium (Lovenox) 30 mg SC DAILY [facility] PRN Reason: Protocol Last Admin: 03/27/17 16:44 Dose: Not Given Hydralazine HCl (Apresoline) 25 mg PO BID [facility] Last Admin: 03/27/17 17:41 Dose: 25 mg Piperacillin Sod/Tazobactam (Sod 2.25 gm/ Sodium Chloride) 100 mls @ 100 mls/ hr IVPB Q8@0500,1300,2100 [facility] Last Admin: 03/28/17 06:37 Dose: Not Given Labetalol HCl (Trandate) 100 mg PO BID [facility] Last Admin: 03/27/17 17:43 Dose: 100 mg Lisinopril (Zestril) 5 mg PO DAILY [facility] Last Admin: 03/27/17 09:58 Dose: 5 mg Mirtazapine (Remeron) 7.5 mg PO HS [facility] Last Admin: 03/27/17 21:29 Dose: 7.5 mg Mupirocin (Bactroban Cream) 1 applic TOP BID [facility] Last Admin: 03/27/17 17:41 Dose: Not Given Oxycodone/Acetaminophen (Percocet 5/325 Mg Tab) 1 tab PO Q4 PRN PRN Reason: Pain, severe (8-10) Stop: 03/30/17 13:05 Last Admin: 03/27/17 13:10 Dose: 1 tab Vitamin B Complex/Vit C/Folic Acid (Nephro-Valentino) 1 tab PO DAILY [facility] Last Admin: 03/27/17 09:57 Dose: 1 tab - Labs Labs: 03/25/17 07:15 03/25/17 06:00 PT 10.3 Seconds (9.8-13.1) 03/23/17 12:50 INR 1.0 (0.9-1.2) 03/23/17 12:50 APTT 29.1 Seconds (25.6-37.1) 03/23/17 12:50 - Constitutional Appears: No Acute Distress - ENT Exam ENT Exam: Mucous Membranes Moist - Respiratory Exam Respiratory Exam: absent: Accessory Muscle Use, Rales, Rhonchi - Cardiovascular Exam Cardiovascular Exam: +S1, +S2 - GI/Abdominal Exam GI & Abdominal Exam: Soft. absent: Distended, Tenderness - Extremities Exam Additional comments: LUE palpable thrill RUE- no erythema or swelling. - Neurological Exam Neurological Exam: Alert, Awake, Oriented x3 - Skin Skin Exam: Dry, Warm Assessment and Plan - Assessment and Plan (Free Text) Assessment: 76F CKD and ESRD Plan: - f/u cultures - plan to use RUE fistula - if unable to use and cultures negative will plan for permacath placement on - further rec per Dr. Chinyere Olguin PGY1
--- NOTE | 2017-03-28 10:19 | CP.PCM.PN ---
Subjective - Date & Time of Evaluation Date of Evaluation: 03/28/17 Time of Evaluation: 10:18 - Subjective Subjective: Patient remains stable Has no fever. Objective - Vital Signs/Intake and Output Vital Signs (last 24 hours): Temp Pulse Resp BP Pulse Ox 98.0 F 74 18 130/68 98 03/28/17 07:54 03/28/17 07:54 03/28/17 07:54 03/28/17 07:54 03/28/17 07:54 - Medications Medications: Current Medications Acetaminophen (Tylenol 325mg Tab) 650 mg PO Q6 PRN PRN Reason: Fever >100.4 F Last Admin: 03/25/17 16:46 Dose: 650 mg Alprazolam (Xanax) 0.5 mg PO HS [facility] Last Admin: 03/27/17 21:29 Dose: 0.5 mg Amlodipine Besylate (Norvasc) 5 mg PO DAILY [facility] Last Admin: 03/27/17 09:59 Dose: 5 mg Atorvastatin Calcium (Lipitor) 20 mg PO DAILY [facility] Last Admin: 03/27/17 09:58 Dose: 20 mg Calcitriol (Rocaltrol) 0.25 mcg PO Q48H [facility] Last Admin: 03/27/17 18:59 Dose: 0.25 mcg Calcium Acetate (Phoslo) 1,334 mg PO TID [facility] Last Admin: 03/27/17 17:40 Dose: 1,334 mg Clonidine HCl (Catapres) 0.1 mg PO TID [facility] Last Admin: 03/27/17 17:42 Dose: 0.1 mg Enoxaparin Sodium (Lovenox) 30 mg SC DAILY [facility] PRN Reason: Protocol Last Admin: 03/27/17 16:44 Dose: Not Given Hydralazine HCl (Apresoline) 25 mg PO BID [facility] Last Admin: 03/27/17 17:41 Dose: 25 mg Piperacillin Sod/Tazobactam (Sod 2.25 gm/ Sodium Chloride) 100 mls @ 100 mls/ hr IVPB Q8@0500,1300,2100 [facility] Last Admin: 03/28/17 06:37 Dose: Not Given Labetalol HCl (Trandate) 100 mg PO BID [facility] Last Admin: 03/27/17 17:43 Dose: 100 mg Lisinopril (Zestril) 5 mg PO DAILY [facility] Last Admin: 03/27/17 09:58 Dose: 5 mg Mirtazapine (Remeron) 7.5 mg PO HS [facility] Last Admin: 03/27/17 21:29 Dose: 7.5 mg Mupirocin (Bactroban Cream) 1 applic TOP BID [facility] Last Admin: 03/27/17 17:41 Dose: Not Given Oxycodone/Acetaminophen (Percocet 5/325 Mg Tab) 1 tab PO Q4 PRN PRN Reason: Pain, severe (8-10) Stop: 03/30/17 13:05 Last Admin: 03/27/17 13:10 Dose: 1 tab Vitamin B Complex/Vit C/Folic Acid (Nephro-Valentino) 1 tab PO DAILY [facility] Last Admin: 03/27/17 09:57 Dose: 1 tab - Labs Labs: 03/25/17 07:15 03/25/17 06:00 PT 10.3 Seconds (9.8-13.1) 03/23/17 12:50 INR 1.0 (0.9-1.2) 03/23/17 12:50 APTT 29.1 Seconds (25.6-37.1) 03/23/17 12:50
[2017-03-28] MEDS: Enoxaparin 30 mg Syringe SC SCH (10:40)
[2017-03-28] MEDS: Multivitamin Vitamin B Complex (Nephro-Vite) Tab PO SCH (10:43)
[2017-03-28] MEDS: Oxycodone/Acetaminophen 5/325 mg Tab PO PRN ×2 (11:20→21:54)
[2017-03-28] MEDS: Mupirocin 2% Cream TOP SCH ×2 (13:09→16:53)
--- NOTE | 2017-03-28 13:24 | VASCULAR ---
PROCEDURE: Date of procedure: 03/27/2017 Procedure: 1 Removal of right IJ tunneled hemodialysis catheter Medications: 6 cc 2 percent lidocaine HISTORY: Tunneled right hemodialysis catheter, infection. TECHNIQUE: Following informed consent and procedure time-out, the patient was placed supine on the interventional table. The existing right IJ tunneled hemodialysis catheter surrounding skin were prepped and draped in the usual sterile fashion. Spot fluoroscopic image showed a right IJ catheter in place. After the tunnel tract was anesthetized with 2 percent lidocaine, traction was applied to the existing catheter. The catheter was removed. Light pressure was applied to the venotomy site and tunnel tract until hemostasis was achieved. A dressing was applied. The catheter tip was sent for culture. IMPRESSION: Removal of right IJ tunneled hemodialysis catheter.
--- NOTE | 2017-03-28 14:05 | CP.PCM.CON ---
History of Present Illness - History of Present Illness History of Present Illness: 76 year old female with a past medical history of end stage renal disease, dialysis dependent, brought to the ED by her son for an evaluation of a fever beginning today prior to arrival. The patient's son reports the visiting nurse took the patient's temperature measuring 100.4 today. The son gave the patient Tylenol 650 mg at 11:00 before her temperature was taken. The patient's last dialysis treatment was 1 week ago, since the patient refuses to go. The patient' s son also notes yellow discharge coming from the right chest catheter site on the patient for the past week. The patient also had a new fistula placed in her left upper extremity. The patient still urinates a little bit. She denies coughing, vomiting, and diarrhea. pt referred for ID eval for antibiotic management frequently misses HD and has been noted manipulating the dialysis catheter Has had 3 or 4 admissions for dialysis catheter related infections - Medical History PMH: Alzheimer's Disease, Anemia, Diverticulitis, HTN, Hypercholesterolemia, Kidney Stones, Migraine, End Stage Renal Disease, Chronic Kidney Disease - Surgical History Surgical History: Appendectomy, Tonsillectomy - Family History Review of Systems - Review of Systems Systems not reviewed;Unavailable: Altered Mental Status - Constitutional Constitutional: As Per HPI - EENT Eyes: absent: As Per HPI, Blind Spots, Blurred Vision, Change in Vision, Decreased Night Vision, Diplopia, Discharge, Dry Eye, Exophthalmos, Floaters, Irritation, Itchy Eyes, Loss of Peripheral Vision, Pain, Photophobia, Requires Corrective Lenses, Sees Flashes, Spots in Vision, Tunnel Vision, Other Visual Disturbances, Loss of Vision, Other Ears: absent: As Per HPI, Decreased Hearing, Ear Discharge, Ear Pain, Tinnitus, Abnormal Hearing, Disequilibrium, Dizziness, Other Nose/Mouth/Throat: absent: As Per HPI, Epistaxis, Nasal Congestion, Nasal Discharge, Nasal Obstruction, Nasal Trauma, Nose Pain, Post Nasal Drip, Sinus Pain, Sinus Pressure, Bleeding Gums, Change in Voice, Dental Pain, Dry Mouth, Dysphagia, Halitosis, Hoarsness, Lip Swelling, Mouth Lesions, Mouth Pain, Odynophagia, Sore Throat, Throat Swelling, Tongue Swelling, Facial Pain, Neck Pain, Neck Mass, Other - Breasts Breasts: absent: As Per HPI, Change in Shape, Mass, Pain, Nipple Discharge, Nipple Inversion, Skin Changes, Swelling, Other - Cardiovascular Cardiovascular: As Per HPI - Respiratory Respiratory: As Per HPI - Gastrointestinal Gastrointestinal: absent: As Per HPI, Abdominal Pain, Belching, Bloating, Change in Bowel Habits, Change in Stool Character, Coffee Ground Emesis, Constipation, Cramping, Diarrhea, Dyspepsia, Dysphagia, Early Satiety, Excessive Flatus, Fecal Incontinence, Heartburn, Hematemesis, Hematochezia, Loose Stools, Melena, Nausea, Odynophagia, Temesmus, Vomiting, Other - Genitourinary Genitourinary: As Per HPI - Reproductive: Female Reproductive:Female: absent: As Per HPI, Amenorrhea, Amenorrhea/ Control, Currently Menstual, Cycle <21 Days, Cycle >35 Days, Cycle Variable, Menses 1-7 Days, Menses >/= 8 Days, Menses Variable, Cycle > 4 Weeks Between, No Menses for 6 Months, Heavy Menses, Light Menses, Normal Menses, Spotting Between Cycles , S/P Hysterectomy, Menopausal, Post Menopausal, Premenarche, Abnormal Vaginal Bleeding, Dysmenorrhea, Dyspareunia, Genital Lesions, Genital Pruritis, Pelvic Pain, Prolapse Symptoms, Sexual Dysfunction, Vaginal Discharge, Vaginal Dryness , Vaginal Odor, Vaginal Pruritis, Other - Menstruation Menstruation: absent: As Per HPI, Amenorrhea, Amenorrhea/ Control, Currently Menstual, Cycle <21 Days, Cycle >35 Days, Cycle Variable, Menses 1-7 Days, Menses >/= 8 Days, Menses Variable, Cycle > 4 Weeks Between, No Menses for 6 Months, Heavy Menses, Light Menses, Normal Menses, Spotting Between Cycles , S/P Hysterectomy, Menopausal, Post Menopausal, Premenarche, Abnormal Vaginal Bleeding, Dysmenorrhea, Other - Musculoskeletal Musculoskeletal: absent: As Per HPI, Abnormal Gait, Arthralgias, Atrophy, Back Pain, Deformity, Joint Swelling, Limited Range of Motion, Loss of Height, Muscle Cramps, Muscle Weakness, Myalgias, Neck Pain, Numbness, Radiating Pain into Limb, Stiffness, Tingling, Other - Integumentary Integumentary: absent: As Per HPI, Acne, Alopecia, Bleeding Lesions, Change in Hair, Change in Nails, Change in Pigmentation, Changing Lesions, Dry Skin, Erythema, Furuncle, Hirsutism, Lesions, New Lesions, Non-Healing Lesions, Photosensitivity, Pruritus, Rash, Skin Pain, Skin Ulcer, Sores, Striae, Swelling , Unusual Bruising, Wounds, Jaundice, Other - Neurological Neurological: absent: As Per HPI, Abnormal Gait, Abnormal Hearing, Abnormal Movements, Abnormal Speech, Behavioral Changes, Burning Sensations, Confusion, Convulsions, Disequilibrium, Dizziness, Numbness, Focal Weakness, Frequent Falls , Headaches, Lack of Coordination, Loss of Vision, Memory Loss, Paresthesias, Radicular Pain, Restless Legs, Sensory Deficit, Syncope, Tingling, Tremor, Vertigo, Weakness, Other Visual Disturbances, Other - Psychiatric Psychiatric: absent: As Per HPI, Abnormal Sleep Pattern, Anhedonia, Anxiety, Auditory Hallucinations, Behavioral Changes, Change in Appetite, Change in Libido, Confusion, Depression, Difficulty Concentrating, Hallucinations, Homicidal Ideation, Hopelessness, Irritability, Memory Loss, Mood Swings, Panic Attacks, Paranoia, Suicidal Ideation, Visual Hallucinations, Tactile Hallucinations, Other - Endocrine Endocrine: absent: As Per HPI, Change in Body Appearance, Change in Libido, Cold Intolorance, Deepening of Voice, Excessive Sweating, Fatigue, Flushing, Heat Intolorance, Increase in Ring/Shoe/Hat Size, Palpitations, Polydipsia, Polyphagia, Polyuria, Other - Hematologic/Lymphatic Hematologic: absent: As Per HPI, Easy Bleeding, Easy Bruising, Lymphadenopathy, Other Past Patient History - Infectious Disease Hx of Infectious Diseases: None - Tetanus Immunizations Tetanus Immunization: Unknown - Past Medical History & Family History Past Medical History?: Yes - Past Social History Smoking Status: Never Smoked - CARDIAC Hx Hypercholesterolemia: Yes Hx Hypertension: Yes - PULMONARY Hx Respiratory Disorders: No - NEUROLOGICAL Hx Alzheimer's Disease: Yes Hx Migraine: Yes - HEENT Hx HEENT Problems: No - RENAL Hx Chronic Kidney Disease: Yes Hx Kidney Stones: Yes - ENDOCRINE/METABOLIC Hx Endocrine Disorders: No - HEMATOLOGICAL/ONCOLOGICAL Hx Anemia: Yes - INTEGUMENTARY Hx Dermatological Problems: Yes - MUSCULOSKELETAL/RHEUMATOLOGICAL Hx Musculoskeletal Disorders: No Hx Falls: No - GASTROINTESTINAL Hx Diverticulitis: Yes - GENITOURINARY/GYNECOLOGICAL Hx Genitourinary Disorders: Yes - PSYCHIATRIC Hx Psychophysiologic Disorder: No Hx Substance Use: No - SURGICAL HISTORY Hx Appendectomy: Yes Hx Tonsillectomy: Yes - ANESTHESIA Hx Anesthesia: Yes Hx Anesthesia Reactions: No Hx Malignant Hyperthermia: No Has any member of the family had a problem w/ anesthesia?: No Meds Allergies/Adverse Reactions: Allergies Allergy/AdvReac Type Severity Reaction Status Date / Time No Known Allergies Allergy Verified 03/23/17 13:05 - Medications Medications: Current Medications Acetaminophen (Tylenol 325mg Tab) 650 mg PO Q6 PRN PRN Reason: Fever >100.4 F Last Admin: 03/25/17 16:46 Dose: 650 mg Alprazolam (Xanax) 0.5 mg PO HS [facility] Last Admin: 03/27/17 21:29 Dose: 0.5 mg Amlodipine Besylate (Norvasc) 5 mg PO DAILY [facility] Last Admin: 03/28/17 10:43 Dose: 5 mg Atorvastatin Calcium (Lipitor) 20 mg PO DAILY [facility] Last Admin: 03/28/17 10:42 Dose: 20 mg Calcitriol (Rocaltrol) 0.25 mcg PO Q48H [facility] Last Admin: 03/27/17 18:59 Dose: 0.25 mcg Calcium Acetate (Phoslo) 1,334 mg PO TID [facility] Last Admin: 03/28/17 13:36 Dose: Not Given Clonidine HCl (Catapres) 0.1 mg PO TID [facility] Last Admin: 03/28/17 13:33 Dose: 0.1 mg Diphenhydramine HCl (Benadryl) 25 mg PO Q8 PRN PRN Reason: Itching / Pruritus Last Admin: 03/28/17 13:33 Dose: 25 mg Enoxaparin Sodium (Lovenox) 30 mg SC DAILY [facility] PRN Reason: Protocol Last Admin: 03/28/17 10:40 Dose: 30 mg Hydralazine HCl (Apresoline) 25 mg PO BID [facility] Last Admin: 03/28/17 10:42 Dose: 25 mg Piperacillin Sod/Tazobactam (Sod 2.25 gm/ Sodium Chloride) 100 mls @ 100 mls/ hr IVPB Q8@0500,1300,2100 [facility] Last Admin: 03/28/17 13:36 Dose: Not Given Labetalol HCl (Trandate) 100 mg PO BID [facility] Last Admin: 03/28/17 10:43 Dose: 100 mg Lisinopril (Zestril) 5 mg PO DAILY [facility] Last Admin: 03/28/17 10:39 Dose: 5 mg Mirtazapine (Remeron) 7.5 mg PO HS [facility] Last Admin: 03/27/17 21:29 Dose: 7.5 mg Mupirocin (Bactroban Cream) 1 applic TOP BID [facility] Last Admin: 03/28/17 13:09 Dose: 1 applic Oxycodone/Acetaminophen (Percocet 5/325 Mg Tab) 1 tab PO Q4 PRN PRN Reason: Pain, severe (8-10) Stop: 03/30/17 13:05 Last Admin: 03/28/17 11:20 Dose: 1 tab Vitamin B Complex/Vit C/Folic Acid (Nephro-Valentino) 1 tab PO DAILY [facility] Last Admin: 03/28/17 10:43 Dose: 1 tab Physical Exam - Constitutional Appears: Non-toxic, Cachectic, Chronically Ill - Head Exam Head Exam: ATRAUMATIC, NORMAL INSPECTION, NORMOCEPHALIC - Eye Exam Eye Exam: EOMI, PERRL. absent: Scleral icterus - ENT Exam ENT Exam: Mucous Membranes Dry, Normal External Ear Exam - Neck Exam Neck exam: Negative for: Lymphadenopathy - Respiratory Exam Respiratory Exam: Decreased Breath Sounds - Cardiovascular Exam Cardiovascular Exam: REGULAR RHYTHM - GI/Abdominal Exam GI & Abdominal Exam: Diminished Bowel Sounds, Soft. absent: Tenderness - Rectal Exam Rectal Exam: Deferred - Exam Exam: NORMAL INSPECTION - Extremities Exam Extremities exam: Positive for: pedal pulses present. Negative for: calf tenderness, full ROM, pedal edema, tenderness - Back Exam Back exam: absent: CVA tenderness (L), CVA tenderness (R), paraspinal tenderness - Neurological Exam Neurological exam: Alert, Altered, CN II-XII Intact - Psychiatric Exam Psychiatric exam: Normal Mood - Skin Skin Exam: Dry, Intact Results - Vital Signs Recent Vital Signs: Last Vital Signs Temp 98.4 F 03/28/17 12:00 Pulse 68 03/28/17 13:33 Resp 18 03/28/17 12:00 BP 111/46 L 03/28/17 13:33 Pulse Ox 100 03/28/17 12:00 - Labs Result Diagrams: 03/25/17 07:15 03/25/17 06:00 Assessment & Plan (1) Bacteremia Status: Acute (2) Bacteremia Status: Acute (3) ESRD (end stage renal disease) on dialysis Status: Acute (4) Fever Status: Acute - Assessment and Plan (Free Text) Assessment: consider empiric rx for endocarditis given recurrence of infections new av fistula does not appear to be the source if infection persists or recurs would need ERIC nuclear scan etc for now cont ancef 2 g with HD and Vanco 500mg with HD for min 14 days and possibly 6 weeks
--- NOTE | 2017-03-28 15:12 | CP.PCM.PN ---
Subjective - Date & Time of Evaluation Date of Evaluation: 03/28/17 Time of Evaluation: 15:10 - Subjective Subjective: Patient and bed Patient is comfortable No fever no chills Eating well Objective - Vital Signs/Intake and Output Vital Signs (last 24 hours): Temp Pulse Resp BP Pulse Ox 98.4 F 68 18 111/46 L 100 03/28/17 12:00 03/28/17 13:33 03/28/17 12:00 03/28/17 13:33 03/28/17 12:00 - Medications Medications: Current Medications Acetaminophen (Tylenol 325mg Tab) 650 mg PO Q6 PRN PRN Reason: Fever >100.4 F Last Admin: 03/25/17 16:46 Dose: 650 mg Alprazolam (Xanax) 0.5 mg PO HS [facility] Last Admin: 03/27/17 21:29 Dose: 0.5 mg Amlodipine Besylate (Norvasc) 5 mg PO DAILY [facility] Last Admin: 03/28/17 10:43 Dose: 5 mg Atorvastatin Calcium (Lipitor) 20 mg PO DAILY [facility] Last Admin: 03/28/17 10:42 Dose: 20 mg Calcitriol (Rocaltrol) 0.25 mcg PO Q48H [facility] Last Admin: 03/27/17 18:59 Dose: 0.25 mcg Calcium Acetate (Phoslo) 1,334 mg PO TID [facility] Last Admin: 03/28/17 13:36 Dose: Not Given Clonidine HCl (Catapres) 0.1 mg PO TID [facility] Last Admin: 03/28/17 13:33 Dose: 0.1 mg Diphenhydramine HCl (Benadryl) 25 mg PO Q8 PRN PRN Reason: Itching / Pruritus Last Admin: 03/28/17 13:33 Dose: 25 mg Enoxaparin Sodium (Lovenox) 30 mg SC DAILY [facility] PRN Reason: Protocol Last Admin: 03/28/17 10:40 Dose: 30 mg Hydralazine HCl (Apresoline) 25 mg PO BID [facility] Last Admin: 03/28/17 10:42 Dose: 25 mg Piperacillin Sod/Tazobactam (Sod 2.25 gm/ Sodium Chloride) 100 mls @ 100 mls/ hr IVPB Q8@0500,1300,2100 [facility] Last Admin: 03/28/17 13:36 Dose: Not Given Cefazolin Sodium 2 gm/ Sodium (Chloride) 100 mls @ 100 mls/hr IVPB POSTDI ONE Stop: 03/29/17 15:17 Labetalol HCl (Trandate) 100 mg PO BID [facility] Last Admin: 03/28/17 10:43 Dose: 100 mg Lisinopril (Zestril) 5 mg PO DAILY [facility] Last Admin: 03/28/17 10:39 Dose: 5 mg Mirtazapine (Remeron) 7.5 mg PO HS [facility] Last Admin: 03/27/17 21:29 Dose: 7.5 mg Mupirocin (Bactroban Cream) 1 applic TOP BID [facility] Last Admin: 03/28/17 13:09 Dose: 1 applic Oxycodone/Acetaminophen (Percocet 5/325 Mg Tab) 1 tab PO Q4 PRN PRN Reason: Pain, severe (8-10) Stop: 03/30/17 13:05 Last Admin: 03/28/17 11:20 Dose: 1 tab Vitamin B Complex/Vit C/Folic Acid (Nephro-Valentino) 1 tab PO DAILY [facility] Last Admin: 03/28/17 10:43 Dose: 1 tab - Labs Labs: 03/25/17 07:15 03/25/17 06:00 PT 10.3 Seconds (9.8-13.1) 03/23/17 12:50 INR 1.0 (0.9-1.2) 03/23/17 12:50 APTT 29.1 Seconds (25.6-37.1) 03/23/17 12:50 - Constitutional Appears: No Acute Distress - ENT Exam ENT Exam: Mucous Membranes Moist - Respiratory Exam Respiratory Exam: absent: Chest Wall Tenderness - Cardiovascular Exam Cardiovascular Exam: absent: JVD, Rubs - GI/Abdominal Exam GI & Abdominal Exam: Normal Bowel Sounds - Extremities Exam Extremities Exam: absent: Calf Tenderness - Back Exam Back Exam: absent: CVA tenderness (L), CVA tenderness (R) - Neurological Exam Neurological Exam: Alert Assessment and Plan (1) ESRD (end stage renal disease) on dialysis Assessment & Plan: Patient admitted with sepsis and missing dialysis Repeat blood culture negative Dialysis catheter is out Neuro dialysis permacath to be reinserted tomorrow Antibiotics as recommended by ID Status: Acute
[2017-03-29 07:03] LABS: HEMATOCRIT 39.2 % (34.0-47.0); MEAN CELL VOLUME 84.9 fl (81.0-99.0); MEAN CORPUSCULAR HEMOGLOBIN 27.6 pg (27.0-31.0); MEAN CORPUSCULAR HGB CONC 32.5 g/dL (33.0-37.0); WHITE BLOOD COUNT 5.2 K/uL (4.8-10.8)
[2017-03-29 07:22] LABS: ALB/GLOB RATIO 1.4 (1.0-2.1); BILIRUBIN,TOTAL 0.6 mg/dl (0.2-1.3); CALCIUM 8.9 mg/dL (8.4-10.2); POTASSIUM 4.5 MMOL/L (3.6-5.0); TOTAL PROTEIN 6.7 G/DL (6.3-8.2)
[2017-03-29] MEDS: Mupirocin 2% Cream TOP SCH (09:00)
[2017-03-29] MEDS: Enoxaparin 30 mg Syringe SC SCH (09:21)
[2017-03-29] MEDS: Multivitamin Vitamin B Complex (Nephro-Vite) Tab PO SCH (09:22)
[2017-03-29] MEDS ORDERED: ePHEDrine 50 mg/ml Inj ONE (09:55)
[2017-03-29] MEDS ORDERED: Phenylephrine 10 mg/ml Inj ONE (09:55)
[2017-03-29] MEDS ORDERED: Lidocaine 1% Inj (20ml) ONE (09:59)
--- NOTE | 2017-03-29 10:23 | CP.PCM.PN ---
Subjective - Date & Time of Evaluation Date of Evaluation: 03/29/17 Time of Evaluation: 10:21 - Subjective Subjective: Patient and bed awake consciousness No shortness of breath Eating okay temperature is normal Objective - Vital Signs/Intake and Output Vital Signs (last 24 hours): Temp Pulse Resp BP Pulse Ox 97.6 F 61 18 135/64 98 03/29/17 07:47 03/29/17 09:22 03/29/17 07:47 03/29/17 09:22 03/29/17 07:47 Intake and Output: 03/29/17 03/29/17 06:59 18:59 Intake Total 350 Balance 350 - Medications Medications: Current Medications Acetaminophen (Tylenol 325mg Tab) 650 mg PO Q6 PRN PRN Reason: Fever >100.4 F Last Admin: 03/25/17 16:46 Dose: 650 mg Alprazolam (Xanax) 0.5 mg PO HS [facility] Last Admin: 03/28/17 21:48 Dose: 0.5 mg Amlodipine Besylate (Norvasc) 5 mg PO DAILY [facility] Last Admin: 03/29/17 09:22 Dose: Not Given Atorvastatin Calcium (Lipitor) 20 mg PO DAILY [facility] Last Admin: 03/29/17 09:21 Dose: Not Given Calcitriol (Rocaltrol) 0.25 mcg PO Q48H [facility] Last Admin: 03/27/17 18:59 Dose: 0.25 mcg Calcium Acetate (Phoslo) 1,334 mg PO TID [facility] Last Admin: 03/29/17 09:22 Dose: Not Given Clonidine HCl (Catapres) 0.1 mg PO TID [facility] Last Admin: 03/29/17 09:21 Dose: Not Given Diphenhydramine HCl (Benadryl) 25 mg PO Q8 PRN PRN Reason: Itching / Pruritus Last Admin: 03/28/17 13:33 Dose: 25 mg Enoxaparin Sodium (Lovenox) 30 mg SC DAILY [facility] PRN Reason: Protocol Last Admin: 03/29/17 09:21 Dose: Not Given Hydralazine HCl (Apresoline) 25 mg PO BID [facility] Last Admin: 03/29/17 09:20 Dose: Not Given Piperacillin Sod/Tazobactam (Sod 2.25 gm/ Sodium Chloride) 100 mls @ 100 mls/ hr IVPB Q8@0500,1300,2100 [facility] Last Admin: 03/29/17 04:19 Dose: 100 mls/hr Cefazolin Sodium 2 gm/ Sodium (Chloride) 100 mls @ 100 mls/hr IVPB POSTDI ONE Stop: 03/29/17 15:17 Labetalol HCl (Trandate) 100 mg PO BID [facility] Last Admin: 03/29/17 09:22 Dose: Not Given Lisinopril (Zestril) 5 mg PO DAILY [facility] Last Admin: 03/29/17 09:22 Dose: Not Given Mirtazapine (Remeron) 7.5 mg PO HS [facility] Last Admin: 03/28/17 21:48 Dose: 7.5 mg Mupirocin (Bactroban Cream) 1 applic TOP BID [facility] Last Admin: 03/28/17 16:53 Dose: 1 applic Oxycodone/Acetaminophen (Percocet 5/325 Mg Tab) 1 tab PO Q4 PRN PRN Reason: Pain, severe (8-10) Stop: 03/30/17 13:05 Last Admin: 03/28/17 21:54 Dose: 1 tab Vitamin B Complex/Vit C/Folic Acid (Nephro-Valentino) 1 tab PO DAILY [facility] Last Admin: 03/29/17 09:22 Dose: Not Given - Labs Labs: 03/29/17 06:00 03/29/17 06:00 PT 10.3 Seconds (9.8-13.1) 03/23/17 12:50 INR 1.0 (0.9-1.2) 03/23/17 12:50 APTT 29.1 Seconds (25.6-37.1) 03/23/17 12:50 - Constitutional Appears: No Acute Distress - ENT Exam ENT Exam: Mucous Membranes Moist - Respiratory Exam Respiratory Exam: absent: Chest Wall Tenderness - Cardiovascular Exam Cardiovascular Exam: absent: JVD, Rubs - Extremities Exam Extremities Exam: absent: Calf Tenderness - Back Exam Back Exam: absent: CVA tenderness (L), CVA tenderness (R) - Neurological Exam Neurological Exam: Alert Assessment and Plan (1) ESRD (end stage renal disease) on dialysis Assessment & Plan: Staphylococcus sepsis patient was treated responded very well blood culture negative End stage renal disease on hemodialysis Sunday and Sunday Patient is going for annual permacath Status: Acute
[2017-03-29] MEDS ORDERED: Midazolam 2 MG/2 ML VIAL ONE ×3 (10:40→11:28)
--- NOTE | 2017-03-29 10:44 | PCM.SURG1 ---
Surgeon's Initial Post Op Note - Surgeon's Notes Surgeon: Emery Reyna MD Public Safety Telecommunicator: NONE Type of Anesthesia: IV Sedation Pre-Operative Diagnosis: ESRD Operative Findings: The right IJV is thrombosed, there is clot within the IJ. The left IJ is occluded. Multiple collaterals present on the left. Post-Operative Diagnosis: ESRD Operation Performed: Attempt HD catheter placement right IJV, EJV, and left IJV. Specimen/Specimens Removed: None Estimated Blood Loss: EBL {In ML}: 3 Blood Products Given: N/A Drains Used: No Drains Post-Op Condition: Fair Date of Surgery/Procedure: 03/29/17 Time of Surgery/Procedure: 11:30
[2017-03-29] MEDS ORDERED: Sodium Chloride 0.9% 500 ML IV ONE (12:30)
[2017-03-29] MEDS: Oxycodone/Acetaminophen 5/325 mg Tab PO PRN (13:30)
[2017-03-29] MEDS ORDERED: ceFAZolin 2 GM in Sodium Chloride 0.9% 100 ML IVPB ONE (14:18)
[2017-03-30 08:26] VITALS: RESP 20
[2017-03-30] MEDS: Enoxaparin 30 mg Syringe SC SCH (10:04)
--- NOTE | 2017-03-30 10:04 | CP.PCM.PN ---
Subjective - Date & Time of Evaluation Date of Evaluation: 03/29/17 Time of Evaluation: 10:00 - Subjective Subjective: Patient is doing well. Had no access but has fistula. Has no fever. Objective - Vital Signs/Intake and Output Vital Signs (last 24 hours): Temp Pulse Resp BP Pulse Ox 98.1 F 64 20 179/78 H 98 03/30/17 08:25 03/30/17 08:25 03/30/17 08:25 03/30/17 08:25 03/30/17 08:25 - Medications Medications: Current Medications Acetaminophen (Tylenol 325mg Tab) 650 mg PO Q6 PRN PRN Reason: Fever >100.4 F Last Admin: 03/25/17 16:46 Dose: 650 mg Alprazolam (Xanax) 0.5 mg PO HS [facility] Last Admin: 03/29/17 21:50 Dose: 0.5 mg Amlodipine Besylate (Norvasc) 5 mg PO DAILY [facility] Last Admin: 03/29/17 09:22 Dose: Not Given Atorvastatin Calcium (Lipitor) 20 mg PO DAILY [facility] Last Admin: 03/29/17 09:21 Dose: Not Given Calcitriol (Rocaltrol) 0.25 mcg PO Q48H [facility] Last Admin: 03/29/17 18:35 Dose: 0.25 mcg Calcium Acetate (Phoslo) 1,334 mg PO TID [facility] Last Admin: 03/29/17 18:36 Dose: 1,334 mg Clonidine HCl (Catapres) 0.1 mg PO TID [facility] Last Admin: 03/29/17 18:36 Dose: 0.1 mg Diphenhydramine HCl (Benadryl) 25 mg PO Q8 PRN PRN Reason: Itching / Pruritus Last Admin: 03/28/17 13:33 Dose: 25 mg Enoxaparin Sodium (Lovenox) 30 mg SC DAILY [facility] PRN Reason: Protocol Last Admin: 03/29/17 09:21 Dose: Not Given Hydralazine HCl (Apresoline) 25 mg PO BID [facility] Last Admin: 03/29/17 18:35 Dose: 25 mg Piperacillin Sod/Tazobactam (Sod 2.25 gm/ Sodium Chloride) 100 mls @ 100 mls/ hr IVPB Q8@0500,1300,2100 [facility] Last Admin: 03/30/17 04:17 Dose: 100 mls/hr Vancomycin HCl 500 mg/ Sodium (Chloride) 100 mls @ 100 mls/hr IVPB POSTDI ONE Stop: 03/30/17 15:19 Labetalol HCl (Trandate) 100 mg PO BID [facility] Last Admin: 03/29/17 09:22 Dose: Not Given Lisinopril (Zestril) 5 mg PO DAILY [facility] Last Admin: 03/29/17 09:22 Dose: Not Given Mirtazapine (Remeron) 7.5 mg PO HS [facility] Last Admin: 03/29/17 21:50 Dose: 7.5 mg Mupirocin (Bactroban Ointment) 1 applic TOP BID [facility] Last Admin: 03/29/17 17:36 Dose: 1 applic Oxycodone/Acetaminophen (Percocet 5/325 Mg Tab) 1 tab PO Q4 PRN PRN Reason: Pain, severe (8-10) Stop: 03/30/17 13:05 Last Admin: 03/29/17 13:30 Dose: 1 tab Vitamin B Complex/Vit C/Folic Acid (Nephro-Valentino) 1 tab PO DAILY [facility] Last Admin: 03/29/17 09:22 Dose: Not Given - Labs Labs: 03/29/17 06:00 03/29/17 06:00 PT 10.3 Seconds (9.8-13.1) 03/23/17 12:50 INR 1.0 (0.9-1.2) 03/23/17 12:50 APTT 29.1 Seconds (25.6-37.1) 03/23/17 12:50
[2017-03-30] MEDS: Multivitamin Vitamin B Complex (Nephro-Vite) Tab PO SCH (10:06)
--- NOTE | 2017-03-30 10:06 | CP.PCM.DIS ---
Provider - Provider Date of Admission: 03/23/17 14:29 Attending physician: Juan Carlos Del Rio MD Hospital Course - Lab Results Lab Results: Micro Results 03/26/17 09:30 Blood-During Dialysis Blood Culture - Preliminary NO GROWTH AFTER 4 DAYS 03/26/17 09:15 Blood Blood Culture - Preliminary NO GROWTH AFTER 4 DAYS 03/27/17 13:00 Other: Please Indicate Gram Stain - Final 03/27/17 13:00 Other: Please Indicate Wound Culture - Preliminary Most Recent Lab Values WBC 5.2 K/uL (4.8-10.8) 03/29/17 06:00 RBC 4.62 Mil/uL (3.80-5.20) 03/29/17 06:00 Hgb 12.7 g/dL (12.0-16.0) 03/29/17 06:00 Hct 39.2 % (34.0-47.0) 03/29/17 06:00 MCV 84.9 fl (81.0-99.0) 03/29/17 06:00 MCH 27.6 pg (27.0-31.0) 03/29/17 06:00 MCHC 32.5 g/dL (33.0-37.0) L 03/29/17 06:00 RDW 15.0 % (11.5-14.5) H 03/29/17 06:00 Plt Count 137 K/uL (130-400) 03/29/17 06:00 MPV 10.7 fl (7.2-11.7) 03/23/17 12:50 Neut % (Auto) 87.6 % (50.0-75.0) H 03/23/17 12:50 Lymph % (Auto) 5.5 % (20.0-40.0) L 03/23/17 12:50 [place] % (Auto) 5.2 % (0.0-10.0) 03/23/17 12:50 Eos % (Auto) 1.3 % (0.0-4.0) 03/23/17 12:50 Baso % (Auto) 0.4 % (0.0-2.0) 03/23/17 12:50 Neut # 8.0 K/uL (1.8-7.0) H 03/23/17 12:50 Lymph # 0.5 K/uL (1.0-4.3) L 03/23/17 12:50 [place] # 0.5 K/uL (0.0-0.8) 03/23/17 12:50 Eos # 0.1 K/uL (0.0-0.7) 03/23/17 12:50 Baso # 0.0 K/uL (0.0-0.2) 03/23/17 12:50 Neutrophils % (Manual) 86 % (42-75) H 03/23/17 12:50 Band Neutrophils % 2 % (0-2) 03/23/17 12:50 Lymphocytes % (Manual) 5 % (20-50) L 03/23/17 12:50 Monocytes % (Manual) 4 % (0-10) 03/23/17 12:50 Eosinophils % (Manual) 2 % (0-7) 03/23/17 12:50 Basophils % (Manual) 1 % (0-2) 03/23/17 12:50 Platelet Estimate Normal (NORMAL) 03/23/17 12:50 RBC Morphology Normal (NORMAL) 03/23/17 12:50 PT 10.3 Seconds (9.8-13.1) 03/23/17 12:50 INR 1.0 (0.9-1.2) 03/23/17 12:50 APTT 29.1 Seconds (25.6-37.1) 03/23/17 12:50 pO2 46 mm/Hg (30-55) 03/23/17 12:51 VBG pH 7.37 (7.32-7.43) 03/23/17 12:51 VBG pCO2 38 mmHg (40-60) L 03/23/17 12:51 VBG HCO3 22.3 mmol/L 03/23/17 12:51 VBG Total CO2 23.2 mmol/L (22-28) 03/23/17 12:51 VBG O2 Sat (Calc) 88.9 % (40-65) H 03/23/17 12:51 VBG Base Excess -2.9 mmol/L (0.0-2.0) L 03/23/17 12:51 VBG Potassium 4.8 mmol/L (3.6-5.2) 03/23/17 12:51 A-a O2 Difference 56.0 mm/Hg 03/23/17 12:51 Sodium 133.0 mmol/L (132-148) 03/23/17 12:51 Chloride 102.0 mmol/L (98-107) 03/23/17 12:51 Glucose 112 mg/dL (65-105) H 03/23/17 12:51 Lactate 0.8 mmol/L (0.7-2.1) 03/23/17 12:51 FiO2 21.0 % 03/23/17 12:51 Sodium 132 mmol/l (132-148) 03/29/17 06:00 Potassium 4.5 MMOL/L (3.6-5.0) 03/29/17 06:00 Chloride 93 mmol/L (98-107) L 03/29/17 06:00 Carbon Dioxide 23 mmol/L (22-30) 03/29/17 06:00 Anion Gap 21 (10-20) H 03/29/17 06:00 BUN 47 mg/dl (7-17) H 03/29/17 06:00 Creatinine 4.9 mg/dL (0.7-1.2) H 03/29/17 06:00 Est GFR ( Amer) 10 03/29/17 06:00 Est GFR (Non-Af Amer) 9 03/29/17 06:00 POC Glucose (mg/dL) 109 mg/dL (65-110) 03/23/17 12:39 Random Glucose 87 mg/dL (65-105) 03/29/17 06:00 Calcium 8.9 mg/dL (8.4-10.2) 03/29/17 06:00 Phosphorus 3.2 mg/dl (2.5-4.5) 03/24/17 15:25 Total Bilirubin 0.6 mg/dl (0.2-1.3) 03/29/17 06:00 AST 42 U/L (14-36) H D 03/29/17 06:00 ALT 42 U/L (9-52) 03/29/17 06:00 Alkaline Phosphatase 71 U/L (38-126) 03/29/17 06:00 NT-Pro-B Natriuret Pep 2270 pg/ml (0-900) H 03/29/17 06:00 Total Protein 6.7 G/DL (6.3-8.2) 03/29/17 06:00 Albumin 4.0 g/dL (3.5-5.0) 03/29/17 06:00 Globulin 2.8 gm/dL (2.2-3.9) 03/29/17 06:00 Albumin/Globulin Ratio 1.4 (1.0-2.1) 03/29/17 06:00 Venous Blood Potassium 4.8 mmol/L (3.6-5.2) 03/23/17 12:51 Urine Color Yellow (YELLOW) 03/23/17 14:03 Urine Clarity Clear (Clear) 03/23/17 14:03 Urine pH 6.0 (5.0-8.0) 03/23/17 14:03 Ur Specific [place] 1.011 (1.003-1.030) 03/23/17 14:03 Urine Protein 100 mg/dL (NEGATIVE) 03/23/17 14:03 Urine Glucose (UA) Neg mg/dL (Normal) 03/23/17 14:03 Urine Ketones Negative mg/dL (NEGATIVE) 03/23/17 14:03 Urine Blood Negative (NEGATIVE) 03/23/17 14:03 Urine Nitrate Negative (NEGATIVE) 03/23/17 14:03 Urine Bilirubin Negative (NEGATIVE) 03/23/17 14:03 Urine Urobilinogen 0.2-1.0 mg/dL (0.2-1.0) 03/23/17 14:03 Ur Leukocyte Esterase Neg Pedro Luis/uL (Negative) 03/23/17 14:03 Urine RBC (Auto) 1 /hpf (0-3) 03/23/17 14:03 Urine Microscopic WBC 2 /hpf (0-5) 03/23/17 14:03 Ur Squamous Epith Cells 1 /hpf (0-5) 03/23/17 14:03 - Hospital Course Hospital Course: This is a 76 y/o, female admitted for sepsis and infected dialysis catheter. Discharge Exam - Head Exam Head Exam: ATRAUMATIC, NORMAL INSPECTION, NORMOCEPHALIC Discharge Plan - Follow Up Plan Condition: GUARDED Disposition: HOME/ ROUTINE
[2017-03-30 12:24] VITALS: PULSE 80; TEMP 98.4; O2SAT 99
--- NOTE | 2017-03-30 13:25 | CP.PCM.PN ---
Subjective - Date & Time of Evaluation Date of Evaluation: 03/30/17 Time of Evaluation: 10:00 - Subjective Subjective: IMPROVING AFEBRILE ALERT hd IN PROGRESS Objective - Vital Signs/Intake and Output Vital Signs (last 24 hours): Temp Pulse Resp BP Pulse Ox 98.4 F 80 20 179/78 H 99 03/30/17 12:23 03/30/17 12:23 03/30/17 12:23 03/30/17 08:25 03/30/17 12:23 - Medications Medications: Current Medications Acetaminophen (Tylenol 325mg Tab) 650 mg PO Q6 PRN PRN Reason: Fever >100.4 F Last Admin: 03/25/17 16:46 Dose: 650 mg Alprazolam (Xanax) 0.5 mg PO HS [facility] Last Admin: 03/29/17 21:50 Dose: 0.5 mg Amlodipine Besylate (Norvasc) 5 mg PO DAILY [facility] Last Admin: 03/30/17 10:04 Dose: Not Given Atorvastatin Calcium (Lipitor) 20 mg PO DAILY [facility] Last Admin: 03/30/17 10:06 Dose: 20 mg Calcitriol (Rocaltrol) 0.25 mcg PO Q48H [facility] Last Admin: 03/29/17 18:35 Dose: 0.25 mcg Calcium Acetate (Phoslo) 1,334 mg PO TID [facility] Last Admin: 03/30/17 10:07 Dose: 1,334 mg Clonidine HCl (Catapres) 0.1 mg PO TID [facility] Last Admin: 03/30/17 10:04 Dose: Not Given Diphenhydramine HCl (Benadryl) 25 mg PO Q8 PRN PRN Reason: Itching / Pruritus Last Admin: 03/28/17 13:33 Dose: 25 mg Enoxaparin Sodium (Lovenox) 30 mg SC DAILY [facility] PRN Reason: Protocol Last Admin: 03/30/17 10:04 Dose: Not Given Hydralazine HCl (Apresoline) 25 mg PO BID [facility] Last Admin: 03/30/17 10:03 Dose: Not Given Piperacillin Sod/Tazobactam (Sod 2.25 gm/ Sodium Chloride) 100 mls @ 100 mls/ hr IVPB Q8@0500,1300,2100 [facility] Last Admin: 03/30/17 12:55 Dose: 100 mls/hr Vancomycin HCl 500 mg/ Sodium (Chloride) 100 mls @ 100 mls/hr IVPB POSTDI ONE Stop: 03/30/17 15:19 Labetalol HCl (Trandate) 100 mg PO BID [facility] Last Admin: 03/30/17 10:04 Dose: Not Given Lisinopril (Zestril) 5 mg PO DAILY [facility] Last Admin: 03/30/17 10:05 Dose: Not Given Mirtazapine (Remeron) 7.5 mg PO HS [facility] Last Admin: 03/29/17 21:50 Dose: 7.5 mg Mupirocin (Bactroban Ointment) 1 applic TOP BID [facility] Last Admin: 03/30/17 10:05 Dose: 1 applic Vitamin B Complex/Vit C/Folic Acid (Nephro-Valentino) 1 tab PO DAILY [facility] Last Admin: 03/30/17 10:06 Dose: 1 tab - Labs Labs: 03/29/17 06:00 03/29/17 06:00 PT 10.3 Seconds (9.8-13.1) 03/23/17 12:50 INR 1.0 (0.9-1.2) 03/23/17 12:50 APTT 29.1 Seconds (25.6-37.1) 03/23/17 12:50 - Constitutional Appears: Non-toxic, Confused, Chronically Ill - Head Exam Head Exam: NORMOCEPHALIC - Eye Exam Eye Exam: PERRL. absent: Scleral icterus - ENT Exam ENT Exam: Mucous Membranes Dry, Normal External Ear Exam - Neck Exam Neck Exam: absent: Lymphadenopathy, Thyromegaly - Respiratory Exam Respiratory Exam: Decreased Breath Sounds, Rhonchi - Cardiovascular Exam Cardiovascular Exam: REGULAR RHYTHM - GI/Abdominal Exam GI & Abdominal Exam: Distended, Soft - Rectal Exam Rectal Exam: Deferred - Exam Exam: NORMAL INSPECTION - Back Exam Back Exam: absent: CVA tenderness (L), CVA tenderness (R) - Neurological Exam Neurological Exam: Alert, Altered, Awake - Psychiatric Exam Psychiatric exam: Depressed - Skin Skin Exam: Dry Assessment and Plan (1) Bacteremia Status: Acute (2) Bacteremia Status: Acute (3) ESRD (end stage renal disease) on dialysis Status: Acute (4) Fever Status: Acute - Assessment and Plan (Free Text) Assessment: CONT IV ANTIBIOTICS OUT PT FOR TOTAL 6 WEEKS
[2017-03-30 14:50] VITALS: BP 125/65
--- NOTE | 2017-03-30 15:28 | CP.PCM.PN ---
Subjective - Date & Time of Evaluation Date of Evaluation: 03/30/17 Time of Evaluation: 15:26 - Subjective Subjective: Patient and bed Patient had partial hemodialysis today because she is not cooperating and she said she has pain Her son at the bedside telling me she is making excused to get out of dialysis AV fistula has been used today Vital signs stable Chest no rales Heart no rubs Abdomen soft Mechelle no edema Patient and plan Sepsis patient receiving IV antibiotics Patient is not cooperating with the dialysis Patient will need follow-up as outpatient for dialysis and antibiotics Objective - Vital Signs/Intake and Output Vital Signs (last 24 hours): Temp Pulse Resp BP Pulse Ox 98.4 F 80 20 125/65 99 03/30/17 12:23 03/30/17 12:23 03/30/17 12:23 03/30/17 12:00 03/30/17 12:23 - Labs Labs: 03/29/17 06:00 03/29/17 06:00 PT 10.3 Seconds (9.8-13.1) 03/23/17 12:50 INR 1.0 (0.9-1.2) 03/23/17 12:50 APTT 29.1 Seconds (25.6-37.1) 03/23/17 12:50 Assessment and Plan (1) ESRD (end stage renal disease) on dialysis Status: Acute
== END 2017-03-30 14:56 | disposition home or self-care (01) | DRG 314 ==
LOC: H.ER 12:30 → H.ERHOLD 14:29 → H.TEL 16:10
PROVIDERS: ADMIT Family Medicine; ATTEND Family Medicine
PROC: 5A1D60Z (ICD-10-PCS; 2017-03-23)
PROC: 05PYX3Z Removal of Infusion Device from Upper Vein, External Approach (ICD-10-PCS; principal; 2017-03-26)
DX: T82.7XXA Infection and inflammatory reaction due to other cardiac and vascular devices, implants and grafts, initial encounter (principal); A41.01 Sepsis due to Methicillin susceptible Staphylococcus aureus; N18.6 End stage renal disease; I12.0 Hypertensive chronic kidney disease with stage 5 chronic kidney disease or end stage renal disease; D69.6 Thrombocytopenia, unspecified; T82.868A Thrombosis due to vascular prosthetic devices, implants and grafts, initial encounter; G30.9 Alzheimer's disease, unspecified; F02.80 Dementia in other diseases classified elsewhere, unspecified severity, without behavioral disturbance, psychotic disturbance, mood disturbance, and anxiety; E78.00 Pure hypercholesterolemia, unspecified; E78.5 Hyperlipidemia, unspecified; Z99.2 Dependence on renal dialysis; G43.909 Migraine, unspecified, not intractable, without status migrainosus

== ENCOUNTER 2017-04-17 12:00 | Emergency (ER) | payer MEDICARE ==
[2017-04-17 12:00] VITALS: BMI 20.9
[2017-04-17 12:14] VITALS: O2SAT 99
[2017-04-17 12:57] LABS: BASO % 1.2 % (0.0-2.0); EOS # 0.4 K/uL (0.0-0.7); EOS % 9.2 % (0.0-4.0); HEMATOCRIT 37.9 % (34.0-47.0); LYMPH % 26.9 % (20.0-40.0); MEAN CELL VOLUME 86.7 fl (81.0-99.0); MEAN CORPUSCULAR HEMOGLOBIN 27.9 pg (27.0-31.0); MEAN CORPUSCULAR HGB CONC 32.1 g/dL (33.0-37.0); MEAN PLATELET VOLUME 10.5 fl (7.2-11.7); MONO # 0.5 K/uL (0.0-0.8); MONO % 13.5 % (0.0-10.0); NEUT # 1.9 K/uL (1.8-7.0); NEUT % 49.2 % (50.0-75.0); NRBC % 0.1 % (0.0-0.0); RED CELL DISTRIBUTION WIDTH 17.1 % (11.5-14.5); WHITE BLOOD COUNT 3.9 K/uL (4.8-10.8)
[2017-04-17 13:16] LABS: ALB/GLOB RATIO 1.6 (1.0-2.1); BILIRUBIN,TOTAL 0.6 mg/dl (0.2-1.3); CALCIUM 9.4 mg/dL (8.4-10.2); POTASSIUM 4.8 MMOL/L (3.6-5.0); TOTAL PROTEIN 6.7 G/DL (6.3-8.2)
[2017-04-17 13:27] LABS: TROPONIN I 0.014 ng/mL (0.00-0.120)
--- NOTE | 2017-04-17 14:36 | ED PDOC ---
HPI: General Adult Time Seen by Provider: 04/17/17 12:43 Chief Complaint (Nursing): Medical Clearance Chief Complaint (Provider): Medical Clearance History Per: Patient History/Exam Limitations: no limitations Onset/Duration Of Symptoms: Days (x 11) Current Symptoms Are (Timing): Still Present Additional History Per: Family Additional Complaint(s): Saba Cohen is a 76 y/o female with end stage renal disease who was brought to the ED by family for refusing dialysis for the past 11 days. They report patient has "puffiness" of her face. No fever, shortness of breath, orthopnea, or lower extremity edema. Patient does urinate intermittently, but family complains she seems generally weaker than her baseline. Also, patient had a recent infection at her port site, which was removed, and the infection has since resolved. PMD: Genaro Martínez Past Medical History Reviewed: Historical Data, Nursing Documentation, Vital Signs Vital Signs: Last Vital Signs Temp 98.3 F 04/17/17 14:45 Pulse 85 04/17/17 14:45 Resp 19 04/17/17 14:45 BP 132/74 04/17/17 14:45 Pulse Ox 99 04/17/17 14:49 - Medical History PMH: Alzheimer's Disease, Anemia, Diverticulitis, HTN, Hypercholesterolemia, Kidney Stones, Migraine, End Stage Renal Disease, Chronic Kidney Disease - Surgical History Surgical History: Appendectomy, Tonsillectomy Other surgeries: AV fistula - Family History Family History: States: Unknown Family Hx, Hypertension - Social History Current smoker - smoking cessation education provided: No Alcohol: None Drugs: Denies - Immunization History Hx Tetanus Toxoid Vaccination: No Hx Influenza Vaccination: No Hx Pneumococcal Vaccination: No - Home Medications Home Medications: Ambulatory Orders Medication Instructions Recorded Atorvastatin [Lipitor] 20 mg PO DAILY 08/16/16 Calcitriol [Rocaltrol] 0.25 mcg PO Q48H 08/16/16 Calcium Acetate [Phoslo] 2 cap PO TID 08/16/16 Labetalol [Trandate] 100 mg PO BID 08/16/16 Lisinopril [Zestril] 5 mg PO DAILY 08/16/16 amLODIPine [Norvasc] 5 mg PO DAILY 08/16/16 hydrALAZINE [Apresoline] 25 mg PO BID 08/16/16 Alprazolam [Xanax] 0.5 mg PO HS 11/04/16 B Complex W-C No.20/Folic Acid 1 cap PO DAILY 11/04/16 [Renal Caps Softgel] Mirtazapine 7.5 mg PO HS 11/04/16 oxyCODONE/Acetaminophen [Percocet 1 tab PO Q4H PRN 03/01/17 5/325 mg Tab] Mupirocin 2% Ointment [Bactroban 1 applic TOP BID #1 03/30/17 Ointment] Vancomycin 500mg in NS 500 mg IVPB POSTDI #12 bag 03/30/17 ceFAZolin 1 gm FROZEN Premix 1 gm IV POSTDI #12 ml 03/30/17 [Ancef] cloNIDine [Catapres] 0.1 mg PO TID #60 tab 03/30/17 - Allergies Allergies/Adverse Reactions: Allergies Allergy/AdvReac Type Severity Reaction Status Date / Time No Known Allergies Allergy Verified 04/17/17 12:09 Review of Systems ROS Statement: Except As Marked, All Systems Reviewed And Found Negative Constitutional: Positive for: Weakness. Negative for: Fever Cardiovascular: Negative for: Chest Pain Respiratory: Negative for: Shortness of Breath Musculoskeletal: Positive for: Other (facial edema) Neurological: Negative for: Headache Physical Exam - Reviewed Nursing Documentation Reviewed: Yes Vital Signs Reviewed: Yes - Physical Exam Appears: Positive for: Non-toxic, No Acute Distress Head Exam: Positive for: ATRAUMATIC, NORMOCEPHALIC Skin: Positive for: Normal Color, Warm, Dry Eye Exam: Positive for: EOMI, Normal appearance, PERRL ENT: Positive for: Other (Mild facial edema) Neck: Positive for: Normal, Supple Cardiovascular/Chest: Positive for: Regular Rate, Rhythm. Negative for: Murmur Respiratory: Positive for: Normal Breath Sounds. Negative for: Accessory Muscle Use, Respiratory Distress Gastrointestinal/Abdominal: Positive for: Normal Exam, Soft. Negative for: Tenderness Extremity: Positive for: Normal ROM. Negative for: Pedal Edema, Deformity Neurologic/Psych: Positive for: Alert, Oriented, Other (Mildly confused, at baseline). Negative for: Motor/Sensory Deficits - Laboratory Results Result Diagrams: 04/17/17 12:50 04/17/17 12:50 - ECG ECG: Positive for: Interpreted By Me, Viewed By Me Interpretation Of ECG: Normal sinus at 66 bpm without evidence of acute ST changes. O2 Sat by Pulse Oximetry: 99 (RA) Pulse Ox Interpretation: Normal Medical Decision Making Medical Decision Making: Time: 12:43 Initial Plan: --EKG --CMP --Troponin I --CBC --CXR portable --Pending reevaluation --Chest X-Ray shows no acute infiltrate --Labs reviewed. Potassium is normal. Renal function is consistent with ESRD Time: 13:23 --Patient was to be admitted to Observation Telemetry for ESRD & fluid overload , but is refusing admission and leaving against medical advice. While mildly confused, patient does understand the risks of refusing admission and further treatment. Family does not want to hold patient here against her will. I discussed with Dr. Benedict, who states patient can follow up outpatient with dialysis center. Patient will be released to custody of family member. Counseling was provided and all questions were answered regarding diagnosis and need for follow up at dialysis center or ER. Scribe Attestation: Documented by Lashay Patino, acting as a scribe for Hoang Sam III, DO Provider Scribe Attestation: All medical record entries made by the Scribe were at my direction and personally dictated by me. I have reviewed the chart and agree that the record accurately reflects my personal performance of the history, physical exam, medical decision making, and the department course for this patient. I have also personally directed, reviewed, and agree with the discharge instructions and disposition. Disposition - Clinical Impression Clinical Impression: End stage renal disease, Left against medical advice Counseled Patient/Family Regarding: Studies Performed, Diagnosis, Need For Followup - Disposition Referrals: Fredis Benedict MD [Staff Provider] - Disposition: Against Medical Advice Disposition Time: 13:23 Condition: FAIR Additional Instructions: You left hospital against medical advice. You require urgent dialysis for life sustaining measures. Return to ER or see dialysis center as soon as possible. Released to custody of family member. Instructions: Dialysis Diet (DC), Against Medical Advice (ED), End Stage Kidney Disease (ED) Forms: [facility] ([employer]) Print Language: DANISH
[2017-04-17 14:46] VITALS: BP 132/74; PULSE 85; RESP 19; TEMP 98.3
--- NOTE | 2017-04-17 14:48 | RAD ---
HISTORY: ESRD SOB COMPARISON: 03/23/2017 FINDINGS: LUNGS: No active pulmonary disease. PLEURA: No significant pleural effusion identified, no pneumothorax apparent. CARDIOVASCULAR: Normal. OSSEOUS STRUCTURES: No significant abnormalities. VISUALIZED UPPER ABDOMEN: Normal. OTHER FINDINGS: None. IMPRESSION: No active disease.
--- NOTE | 2017-04-19 10:30 | CARD ---
APPROVED REPORT EKG Measurement Heart [id number] <Conclusion> Normal sinus rhythm Normal ECG
== END 2017-04-17 14:47 | disposition left against medical advice (07) ==
LOC: H.ER 12:00 → UNDOADMOB 13:23 → H.ERHOLD 13:23 → H.ER 14:47
DX: N18.6 End stage renal disease (principal); Z99.2 Dependence on renal dialysis

== ENCOUNTER 2017-06-10 09:01 | Emergency (ER) | payer MEDICARE ==
[2017-06-10 09:03] VITALS: O2SAT 98; BMI 25.0
[2017-06-10 09:40] LABS: BASO % 0.5 % (0.0-2.0); EOS # 0.1 K/uL (0.0-0.7); EOS % 1.1 % (0.0-4.0); LYMPH # 0.8 K/uL (1.0-4.3); LYMPH % 11.2 % (20.0-40.0); MEAN CELL VOLUME 85.9 fl (81.0-99.0); MEAN CORPUSCULAR HGB CONC 33.8 g/dL (33.0-37.0); MEAN PLATELET VOLUME 10.7 fl (7.2-11.7); MONO # 1.1 K/uL (0.0-0.8); MONO % 14.9 % (0.0-10.0); NEUT # 5.4 K/uL (1.8-7.0); NEUT % 72.3 % (50.0-75.0); RED CELL DISTRIBUTION WIDTH 16.6 % (11.5-14.5); WHITE BLOOD COUNT 7.5 K/uL (4.8-10.8)
--- NOTE | 2017-06-10 09:44 | ED PDOC ---
HPI: Headache Time Seen by Provider: 06/10/17 09:07 Chief Complaint (Nursing): Headache Chief Complaint (Provider): Headache History Per: Patient History/Exam Limitations: no limitations Onset/Duration Of Symptoms: Hrs (sicne this morning) Additional Complaint(s): 76 y/o female presents to the ED complaining of left sided headache since morning. Patient states that this is not the worst headache of her life and denies taking any medications. She has been non-compliant with dialysis x 1 month. Denies fever, nausea, vomiting, visual changes, neck stiffness or any further medical complaints. PMD: Fredis Benedict MD Past Medical History Reviewed: Historical Data, Nursing Documentation, Vital Signs Vital Signs: Last Vital Signs Temp 98.2 F 06/10/17 09:02 Pulse 81 06/10/17 09:02 Resp 20 06/10/17 09:02 BP 141/69 06/10/17 09:02 Pulse Ox 98 06/10/17 09:02 - Medical History PMH: Alzheimer's Disease, Anemia, Diverticulitis, HTN, Hypercholesterolemia, Kidney Stones, Migraine, End Stage Renal Disease, Chronic Kidney Disease - Surgical History Surgical History: Appendectomy, Tonsillectomy - Family History Family History: States: Unknown Family Hx, Hypertension - Social History Current smoker - smoking cessation education provided: No Alcohol: None Drugs: Denies - Immunization History Hx Tetanus Toxoid Vaccination: No Hx Influenza Vaccination: No Hx Pneumococcal Vaccination: No - Home Medications Home Medications: Ambulatory Orders Medication Instructions Recorded Atorvastatin [Lipitor] 20 mg PO DAILY 08/16/16 Calcitriol [Rocaltrol] 0.25 mcg PO Q48H 08/16/16 Calcium Acetate [Phoslo] 2 cap PO TID 08/16/16 Labetalol [Trandate] 100 mg PO BID 08/16/16 Lisinopril [Zestril] 5 mg PO DAILY 08/16/16 amLODIPine [Norvasc] 5 mg PO DAILY 08/16/16 hydrALAZINE [Apresoline] 25 mg PO BID 08/16/16 Alprazolam [Xanax] 0.5 mg PO HS 11/04/16 B Complex W-C No.20/Folic Acid 1 cap PO DAILY 11/04/16 [Renal Caps Softgel] Mirtazapine 7.5 mg PO HS 11/04/16 oxyCODONE/Acetaminophen [Percocet 1 tab PO Q4H PRN 03/01/17 5/325 mg Tab] Mupirocin 2% Ointment [Bactroban 1 applic TOP BID #1 03/30/17 Ointment] Vancomycin 500mg in NS 500 mg IVPB POSTDI #12 bag 03/30/17 ceFAZolin 1 gm FROZEN Premix 1 gm IV POSTDI #12 ml 03/30/17 [Ancef] cloNIDine [Catapres] 0.1 mg PO TID #60 tab 03/30/17 - Allergies Allergies/Adverse Reactions: Allergies Allergy/AdvReac Type Severity Reaction Status Date / Time No Known Allergies Allergy Verified 05/26/17 00:37 Review of Systems ROS Statement: Except As Marked, All Systems Reviewed And Found Negative (As per HPI, otherwisse negative) Constitutional: Negative for: Fever Eyes: Negative for: Vision Change Gastrointestinal: Negative for: Nausea, Vomiting Musculoskeletal: Negative for: Other (neck stiffness) Neurological: Positive for: Headache Physical Exam - Reviewed Nursing Documentation Reviewed: Yes Vital Signs Reviewed: Yes - Physical Exam Appears: Positive for: Non-toxic, In Acute Distress Head Exam: Positive for: ATRAUMATIC, NORMOCEPHALIC Skin: Positive for: Normal Color, Warm, Dry Eye Exam: Positive for: EOMI, Normal appearance, PERRL Neck: Positive for: Normal, Painless ROM, Supple Cardiovascular/Chest: Positive for: Regular Rate, Rhythm, Murmur Respiratory: Positive for: Normal Breath Sounds. Negative for: Respiratory Distress Neurologic/Psych: Positive for: Alert, Oriented (x3) - Laboratory Results Result Diagrams: 06/10/17 09:30 06/10/17 09:30 - ECG O2 Sat by Pulse Oximetry: 98 (RA) Pulse Ox Interpretation: Normal Medical Decision Making Medical Decision Making: Time: 09:12 Initial Impression: headache and non-compliant hemodialysis Plan: Head CT w/o contrast EKG CMP CBC w/ diff PTT Prothrombin Time Chest x-ray Reevaluation Time: 09:56 Chest x-ray FINDINGS: LUNGS: No active pulmonary disease. PLEURA: No significant pleural effusion identified, no pneumothorax apparent. CARDIOVASCULAR: Cardiomegaly atherosclerotic aorta. OSSEOUS STRUCTURES: No significant abnormalities. VISUALIZED UPPER ABDOMEN: Normal. OTHER FINDINGS: None. IMPRESSION: No active disease. Time: 09:[address] FINDINGS: HEMORRHAGE: No intracranial hemorrhage. BRAIN: No mass effect or lauren; chronic microvascular ischemic changes. VENTRICLES: Unremarkable. No hydrocephalus. CALVARIUM: Unremarkable. PARANASAL SINUSES: Unremarkable as visualized. No significant inflammatory changes. MASTOID AIR CELLS: Unremarkable as visualized. No inflammatory changes. OTHER FINDINGS: None. IMPRESSION: No bleed. Call placed to Dr. Martínez, no response. Pt and daughter want to leave, states they will follow-up with Dr. Martínez. Copy of labs given to patient. Scribe Attestation: Documented by Kathya Desai acting as a scribe for Laura Arnold MD. Scribe Attestation: All medical record entries made by the Scribe were at my direction and personally dictated by me. I have reviewed the chart and agree that the record accurately reflects my personal performance of the history, physical exam, medical decision making, and the department course for this patient. I have also personally directed, reviewed, and agree with the discharge instructions and disposition. Disposition - Clinical Impression Clinical Impression: End stage renal disease, Anemia, Thrombocytopenia - Disposition Referrals: [facility] [Outside] Genaro Martínez MD [Family Provider] - Disposition Time: 13:00 Condition: STABLE Additional Instructions: FOLLOW-UP WITH PMD LOW. Instructions: Anemia (ED), Thrombocytopenia (ED), End Stage Kidney Disease (ED) Forms: [facility] ([place])
[2017-06-10 09:50] LABS: PARTIAL THROMBOPLASTIN TIME 27.2 Seconds (25.6-37.1)
[2017-06-10 09:52] LABS: ALB/GLOB RATIO 1.4 (1.0-2.1); BILIRUBIN,TOTAL 0.9 mg/dl (0.2-1.3); CALCIUM 9.2 mg/dL (8.4-10.2); POTASSIUM 5.1 MMOL/L (3.6-5.0); TOTAL PROTEIN 6.6 G/DL (6.3-8.2)
--- NOTE | 2017-06-10 09:57 | RAD ---
HISTORY: ROBERTO COMPARISON: No prior. FINDINGS: LUNGS: No active pulmonary disease. PLEURA: No significant pleural effusion identified, no pneumothorax apparent. CARDIOVASCULAR: Cardiomegaly atherosclerotic aorta. OSSEOUS STRUCTURES: No significant abnormalities. VISUALIZED UPPER ABDOMEN: Normal. OTHER FINDINGS: None. IMPRESSION: No active disease.
--- NOTE | 2017-06-10 11:42 | CT ---
PROCEDURE: CT HEAD WITHOUT CONTRAST. HISTORY: L sided ROBERTO COMPARISON: None available. TECHNIQUE: Axial computed tomography images were obtained through the head/brain without intravenous contrast. Radiation dose: Total exam DLP = mGy-cm. This CT exam was performed using one or more of the following dose reduction techniques: Automated exposure control, adjustment of the mA and/or kV according to patient size, and/or use of iterative reconstruction technique. FINDINGS: HEMORRHAGE: No intracranial hemorrhage. BRAIN: No mass effect or lauren; chronic microvascular ischemic changes. VENTRICLES: Unremarkable. No hydrocephalus. CALVARIUM: Unremarkable. PARANASAL SINUSES: Unremarkable as visualized. No significant inflammatory changes. MASTOID AIR CELLS: Unremarkable as visualized. No inflammatory changes. OTHER FINDINGS: None. IMPRESSION: No bleed.
[2017-06-10 13:40] VITALS: BP 130/78; PULSE 78; RESP 18; TEMP 97.7
--- NOTE | 2017-06-10 14:05 | CARD ---
APPROVED REPORT EKG Measurement Heart [id number] <Conclusion> Normal sinus rhythm Nonspecific T wave abnormality Abnormal ECG
== END 2017-06-10 13:40 | disposition home or self-care (01) ==
LOC: H.ER 09:01
DX: R51 Headache (principal); D69.6 Thrombocytopenia, unspecified; E78.00 Pure hypercholesterolemia, unspecified; F02.80 Dementia in other diseases classified elsewhere, unspecified severity, without behavioral disturbance, psychotic disturbance, mood disturbance, and anxiety; G30.9 Alzheimer's disease, unspecified; I12.0 Hypertensive chronic kidney disease with stage 5 chronic kidney disease or end stage renal disease; N18.6 End stage renal disease; Z91.19 Patient's noncompliance with other medical treatment and regimen; Z99.2 Dependence on renal dialysis

== ENCOUNTER 2017-09-02 08:43 | Observation (INO) | payer MEDICARE ==
[2017-09-02 08:44] VITALS: BMI 25.0
--- NOTE | 2017-09-02 09:48 | ED PDOC ---
HPI: CCC, URI, Sore Throat Time Seen by Provider: 09/02/17 09:02 Chief Complaint (Nursing): Cough, Cold, Congestion History Per: Family Onset/Duration Of Symptoms: Days (2) Current Symptoms Are (Timing): Still Present Associated Symptoms: Cough, Vomiting Severity: Moderate Additional Complaint(s): Non productive cough x 2 days, assoc with vomiting. No diarrhea or abd pain. H/ o ESRD, has not gone for dialysis x 2 months. No fever. Past Medical History Vital Signs: Last Vital Signs Temp 98.3 F 09/02/17 09:06 Pulse 86 09/02/17 09:06 Resp 19 09/02/17 09:06 BP 180/69 H 09/02/17 09:06 Pulse Ox 98 09/02/17 09:48 - Medical History PMH: Alzheimer's Disease, Anemia, Diverticulitis, HTN, Hypercholesterolemia, Kidney Stones, Migraine, End Stage Renal Disease, Chronic Kidney Disease - Surgical History Surgical History: Appendectomy, Tonsillectomy - Family History Family History: States: Unknown Family Hx, Hypertension - Immunization History Hx Tetanus Toxoid Vaccination: No Hx Influenza Vaccination: No Hx Pneumococcal Vaccination: No - Home Medications Home Medications: Ambulatory Orders Medication Instructions Recorded Atorvastatin [Lipitor] 20 mg PO DAILY 08/16/16 Calcium Acetate [Phoslo] 2 cap PO TID 08/16/16 Labetalol [Trandate] 100 mg PO BID 08/16/16 Lisinopril [Zestril] 5 mg PO DAILY 08/16/16 amLODIPine [Norvasc] 10 mg PO DAILY 08/16/16 hydrALAZINE [Apresoline] 50 mg PO BID 08/16/16 B Complex W-C No.20/Folic Acid 1 cap PO DAILY 11/04/16 [Renal Caps Softgel] B Complex W-C No.20/Folic Acid 1 sgl PO TID 09/02/17 [Renal Caps] - Allergies Allergies/Adverse Reactions: Allergies Allergy/AdvReac Type Severity Reaction Status Date / Time No Known Allergies Allergy Verified 05/26/17 00:37 Review of Systems ROS Statement: Except As Marked, All Systems Reviewed And Found Negative Respiratory: Positive for: Cough Gastrointestinal: Positive for: Vomiting Physical Exam - Reviewed Nursing Documentation Reviewed: Yes Vital Signs Reviewed: Yes - Physical Exam Appears: Positive for: Non-toxic, No Acute Distress Head Exam: Positive for: ATRAUMATIC, NORMAL INSPECTION, NORMOCEPHALIC Skin: Positive for: Normal Color, Warm, DRY Eye Exam: Positive for: EOMI, Normal appearance, PERRL ENT: Positive for: Normal ENT Inspection Neck: Positive for: Normal, Painless ROM Cardiovascular/Chest: Positive for: Regular Rate, Rhythm Respiratory: Positive for: Rhonchi. Negative for: Wheezing, Respiratory Distress Gastrointestinal/Abdominal: Positive for: Normal Exam, Bowel Sounds, Soft Back: Positive for: Normal Inspection Extremity: Positive for: Normal ROM Neurologic/Psych: Positive for: Alert, Oriented - Laboratory Results Result Diagrams: 09/02/17 10:00 09/02/17 10:00 - ECG O2 Sat by Pulse Oximetry: 98 Disposition - Clinical Impression Clinical Impression: Dementia, End stage renal disease, Renal failure - Patient ED Disposition Is Patient to be Admitted: Yes - Disposition Disposition Time: 11:36 Condition: FAIR Forms: [facility] (Niuean) - Pt Status Changed To: Hospital Disposition Of: Inpatient - Admit Certification Admit to Inpatient:: After my assessment, the patient will require hospitalization for at least two midnights. This is because of the severity of symptoms shown, intensity of services needed, and/or the medical risk in this patient being treated as an outpatient. - POA Present On Arrival: None
[2017-09-02 10:26] LABS: VENOUS BLOOD GAS BASE EXCESS -1.9 mmol/L (0.0-2.0); VENOUS BLOOD GAS PCO2 43 mmHg (40-60); VENOUS BLOOD GAS PO2 30 mm/Hg (30-55); VENOUS BLOOD PH 7.35 (7.32-7.43)
[2017-09-02 10:31] LABS: BASO # 0.1 K/uL (0.0-0.2); BASO % 1.3 % (0.0-2.0); EOS # 0.2 K/uL (0.0-0.7); EOS % 4.5 % (0.0-4.0); HEMOGLOBIN 10.4 g/dL (12.0-16.0); LYMPH # 0.8 K/uL (1.0-4.3); LYMPH % 16.7 % (20.0-40.0); MEAN CELL VOLUME 91.1 fl (81.0-99.0); MEAN CORPUSCULAR HEMOGLOBIN 30.4 pg (27.0-31.0); MEAN CORPUSCULAR HGB CONC 33.4 g/dL (33.0-37.0); MEAN PLATELET VOLUME 11.2 fl (7.2-11.7); MONO # 0.5 K/uL (0.0-0.8); MONO % 10.8 % (0.0-10.0); NEUT # 3.1 K/uL (1.8-7.0); NEUT % 66.7 % (50.0-75.0); NRBC % 0.1 % (0.0-0.0); RBC 3.41 Mil/uL (3.80-5.20); RED CELL DISTRIBUTION WIDTH 12.7 % (11.5-14.5); WHITE BLOOD COUNT 4.7 K/uL (4.8-10.8)
[2017-09-02 10:41] LABS: ALB/GLOB RATIO 1.5 (1.0-2.1); ALBUMIN 4.1 g/dL (3.5-5.0); CALCIUM 9.4 mg/dL (8.4-10.2)
[2017-09-02] MEDS ORDERED: Insulin Regular 100 units/ml IV STA (10:50)
[2017-09-02] MEDS ORDERED: Dextrose 50% SYRINGE Inj (50 ml) IVP ONE (10:51)
[2017-09-02] MEDS ORDERED: Sodium Bicarbonate 7.5% (0.9 MEQ/ML) 50ML INJ IV ONE (10:52)
[2017-09-02] MEDS ORDERED: Albuterol 0.083% Inhal Sol (2.5 mg/3 mL) UD INH ONE (10:53)
[2017-09-02] MEDS ORDERED: Sod Polystyrene Sulf 15 gm/60 ml Susp PO ONE (10:53)
[2017-09-02] MEDS ORDERED: Sod Polystyrene Sulf 15 gm/60 ml Susp ONE (11:59)
[2017-09-02] MEDS ORDERED: Dextrose 50% SYRINGE Inj (50 ml) ONE (12:00)
[2017-09-02] MEDS ORDERED: Insulin Regular 100 units/ml ONE (12:00)
[2017-09-02] MEDS ORDERED: Albuterol 0.083% Inhal Sol (2.5 mg/3 mL) UD ONE (12:02)
--- NOTE | 2017-09-02 12:03 | CP.PCM.HP ---
History of Present Illness - History of Present Illness History of Present Illness: 77 yo female with history of ESRD, HTN and Dementia brought by son because of coughing productive with white thick phlegm and vomiting since yesterday. Patient is supposed to be on dialysis but refused to have one on regular basis. Last dialysis was a month ago. Denied fever or chills. Denied chest pain or SOB. Present on Admission - Present on Admission Any Indicators Present on Admission: No History of DVT/PE: No History of Uncontrolled Diabetes: No Urinary Catheter: No Decubitus Ulcer Present: No Review of Systems - Review of Systems Systems not reviewed;Unavailable: Dementia Past Patient History - Infectious Disease Hx of Infectious Diseases: None - Tetanus Immunizations Tetanus Immunization: Unknown - Past Medical History & Family History Past Medical History?: Yes - Past Social History Smoking Status: Never Smoked Alcohol: None Drugs: Denies Home Situation {Lives}: Alone - CARDIAC Hx Hypercholesterolemia: Yes Hx Hypertension: Yes - PULMONARY Hx Respiratory Disorders: No - NEUROLOGICAL Hx Alzheimer's Disease: Yes Hx Migraine: Yes - HEENT Hx HEENT Problems: No - RENAL Hx Chronic Kidney Disease: Yes Hx Kidney Stones: Yes - ENDOCRINE/METABOLIC Hx Endocrine Disorders: No - HEMATOLOGICAL/ONCOLOGICAL Hx Anemia: Yes - INTEGUMENTARY Hx Dermatological Problems: Yes - MUSCULOSKELETAL/RHEUMATOLOGICAL Hx Musculoskeletal Disorders: No Hx Falls: No - GASTROINTESTINAL Hx Diverticulitis: Yes - GENITOURINARY/GYNECOLOGICAL Hx Genitourinary Disorders: Yes - PSYCHIATRIC Hx Psychophysiologic Disorder: No Hx Substance Use: No - SURGICAL HISTORY Hx Appendectomy: Yes Hx Arteriovenous Shunt: Yes Hx Hysterectomy: Yes Hx Tonsillectomy: Yes - ANESTHESIA Hx Anesthesia: Yes Hx Anesthesia Reactions: No Hx Malignant Hyperthermia: No Meds Allergies/Adverse Reactions: Allergies Allergy/AdvReac Type Severity Reaction Status Date / Time No Known Allergies Allergy Verified 05/26/17 00:37 Physical Exam - Constitutional Appears: No Acute Distress - Head Exam Head Exam: ATRAUMATIC - Eye Exam Eye Exam: absent: Scleral icterus - ENT Exam ENT Exam: Mucous Membranes Moist - Respiratory Exam Respiratory Exam: absent: Rhonchi, Wheezes, Respiratory Distress - Cardiovascular Exam Cardiovascular Exam: REGULAR RHYTHM, +S1, +S2 - GI/Abdominal Exam GI & Abdominal Exam: Soft. absent: Tenderness - Rectal Exam Rectal Exam: Deferred - Extremities Exam Extremities exam: Negative for: pedal edema - Back Exam Back exam: absent: tenderness - Neurological Exam Neurological exam: Alert, Oriented x3 - Psychiatric Exam Psychiatric exam: Normal Affect - Skin Skin Exam: Dry, Intact Results - Vital Signs Recent Vital Signs: Last Vital Signs Temp 98.3 F 09/02/17 09:06 Pulse 86 09/02/17 09:06 Resp 19 09/02/17 09:06 BP 180/69 H 09/02/17 09:06 Pulse Ox 98 09/02/17 11:36 - Labs Result Diagrams: 09/02/17 10:00 09/02/17 10:00 Labs: Laboratory Results - last 24 hr 09/02/17 09/02/17 09/02/17 09:43 10:00 10:00 WBC 4.7 L RBC 3.41 L Hgb 10.4 L Hct 31.0 L MCV 91.1 D MCH 30.4 MCHC 33.4 RDW 12.7 Plt Count 93 L MPV 11.2 Neut % (Auto) 66.7 Lymph % (Auto) 16.7 L [place] % (Auto) 10.8 H Eos % (Auto) 4.5 H Baso % (Auto) 1.3 Neut # (Auto) 3.1 Lymph # (Auto) 0.8 L [place] # (Auto) 0.5 Eos # (Auto) 0.2 Baso # (Auto) 0.1 pO2 30 VBG pH 7.35 VBG pCO2 43 VBG HCO3 22.8 VBG Total CO2 25.0 VBG O2 Sat (Calc) 75.4 H VBG Base Excess -1.9 L VBG Potassium 5.4 H A-a O2 Difference 66.0 Sodium 137.0 141 Chloride 109.0 H 106 Glucose 95 Lactate 0.8 FiO2 21.0 Crit Value Called To Harley baldwin rn Crit Value Called By 15 Crit Value Read Back Y Blood Gas Notified Time 1026 Potassium 5.5 H Carbon Dioxide 20 L Anion Gap 21 H BUN 76 H Creatinine 5.3 H Est GFR ( Amer) 9 Est GFR (Non-Af Amer) 8 Random Glucose 93 Calcium 9.4 Total Bilirubin 0.8 AST 24 ALT 32 Alkaline Phosphatase 64 Total Protein 6.7 Albumin 4.1 Globulin 2.7 Albumin/Globulin Ratio 1.5 Venous Blood Potassium 5.4 H Influenza Typ A,B (EIA) 09/02/17 10:00 WBC RBC Hgb Hct MCV MCH MCHC RDW Plt Count MPV Neut % (Auto) Lymph % (Auto) [place] % (Auto) Eos % (Auto) Baso % (Auto) Neut # (Auto) Lymph # (Auto) [place] # (Auto) Eos # (Auto) Baso # (Auto) pO2 VBG pH VBG pCO2 VBG HCO3 VBG Total CO2 VBG O2 Sat (Calc) VBG Base Excess VBG Potassium A-a O2 Difference Sodium Chloride Glucose Lactate FiO2 Crit Value Called To Crit Value Called By Crit Value Read Back Blood Gas Notified Time Potassium Carbon Dioxide Anion Gap BUN Creatinine Est GFR ( Amer) Est GFR (Non-Af Amer) Random Glucose Calcium Total Bilirubin AST ALT Alkaline Phosphatase Total Protein Albumin Globulin Albumin/Globulin Ratio Venous Blood Potassium Influenza Typ A,B (EIA) Negative for flu a/b Assessment & Plan - Assessment and Plan (Free Text) Assessment: 77 yo female with history of ESRD, HTN and Dementia brought by son because of coughing productive with white thick phlegm and vomiting since yesterday. Patient is supposed to be on dialysis but refused to have one on regular basis. Last dialysis was a month ago. 1. ESRD for dialysis renal consult with Dr Benedict for dialysis order 2. HTN BP stable Norvasc 10ng PO daily Labetalol 100mg PO BID Lisinopril 5mg PO daily 3. DVT prophylaxis Lovenox 30mg SC daily
[2017-09-02] MEDS ORDERED: [UNRECOGNIZED DRUG - REMARK] PO SCH (13:00)
[2017-09-02] MEDS: Multivitamin Vitamin B Complex (Nephro-Vite) Tab PO SCH (14:00)
--- NOTE | 2017-09-02 14:00 | RAD ---
HISTORY: cough COMPARISON: No prior. TECHNIQUE: Chest PA and lateral FINDINGS: LUNGS: No active pulmonary disease. PLEURA: No significant pleural effusion identified. No pneumothorax apparent. CARDIOVASCULAR: Normal. Atherosclerotic aorta. OSSEOUS STRUCTURES: No significant abnormalities. VISUALIZED UPPER ABDOMEN: Normal. OTHER FINDINGS: None. IMPRESSION: No active disease.
[2017-09-02] MEDS ORDERED: Pneumococcal 23-Valent Vaccine IM ONE (16:09)
[2017-09-02] MEDS ORDERED: Influenza Vaccine 18yr & older 0.5 ML/45 MCG SYR IM ONE (16:14)
[2017-09-03 06:13] LABS: BASO % 0.9 % (0.0-2.0); EOS # 0.2 K/uL (0.0-0.7); EOS % 3.7 % (0.0-4.0); HEMOGLOBIN 10.5 g/dL (12.0-16.0); LYMPH # 0.9 K/uL (1.0-4.3); LYMPH % 16.5 % (20.0-40.0); MEAN CELL VOLUME 91.4 fl (81.0-99.0); MEAN CORPUSCULAR HGB CONC 32.8 g/dL (33.0-37.0); MEAN PLATELET VOLUME 11.6 fl (7.2-11.7); MONO # 0.7 K/uL (0.0-0.8); MONO % 12.9 % (0.0-10.0); NEUT # 3.4 K/uL (1.8-7.0); NRBC % 0.2 % (0.0-0.0); RBC 3.5 Mil/uL (3.80-5.20); RED CELL DISTRIBUTION WIDTH 12.7 % (11.5-14.5); WHITE BLOOD COUNT 5.2 K/uL (4.8-10.8)
[2017-09-03 07:42] VITALS: RESP 18
[2017-09-03] MEDS ORDERED: Pantoprazole 40 mg EC Tab PO SCH (09:00)
[2017-09-03] MEDS ORDERED: Multivitamin Vitamin B Complex (Nephro-Vite) Tab PO SCH (09:00)
[2017-09-03] MEDS ORDERED: Enoxaparin 30 mg Syringe SC SCH (09:00)
--- NOTE | 2017-09-03 09:05 | CARD ---
APPROVED REPORT EKG Measurement Heart [id number] <Conclusion> Normal sinus rhythm Possible Left atrial enlargement Left ventricular hypertrophy Nonspecific T wave abnormality Abnormal ECG baseline artefact
[2017-09-03] MEDS: Multivitamin Vitamin B Complex (Nephro-Vite) Tab PO SCH (09:37)
--- NOTE | 2017-09-03 09:44 | CP.PCM.CON ---
History of Present Illness - History of Present Illness History of Present Illness: Consult for ESRD HPI: 76 yo F w/ pmh of dementia, ESRD, hypertension that according to ER aldens brought in for cough . SHe according to records had cough productive of white sputum, no reported fever or chills. ON questioning, she states she was brought here for R hip pain which she states is resolved. SHe is supposed to go to [facility] for HD. Its not clear when her last treatment was - reportedly one month ago. She lacks any further insight. She has no complaints. ros: a full detailed ROS is limited given the dementia PMH: Alzheimer's dementia, ESRD, hypertension PSH: Appendectomy, tonsillectomy FH: no reported ESRD SH: no reported etoh, smoke, ivdu Meds: as below Allergies: NKDA pe: vs as below gen: nad sclera: anicteric neck supple op clear cv: +S1+s2 lungs: cta abd: soft ext: no edema neuro: A+ox1 psych: nml affect skin: no rash labs and imaging reviewed IMP: ESRD/Hyperkalemia/ Anemia of Renal Disease/ Secondary hyperparathyroid/ Hypertensive kidney disease/ dementia plan: HD next will be tomorrow contacted her HD unit - she was supposed to be admitted there about 1 month ago or so and never showed up and no longer has that spot- needs to be readmitted to the [facility] in [place]- contact sw hyperkaelmia should have resolved on binders , please check phos bp improving hgb is stable hep profile pending Past Patient History - Infectious Disease Hx of Infectious Diseases: None - Tetanus Immunizations Tetanus Immunization: Unknown - Past Medical History & Family History Past Medical History?: Yes - Past Social History Smoking Status: Never Smoked - CARDIAC Hx Hypercholesterolemia: Yes Hx Hypertension: Yes - PULMONARY Hx Respiratory Disorders: No - NEUROLOGICAL Hx Alzheimer's Disease: Yes Hx Dementia: Yes Hx Migraine: Yes - HEENT Hx HEENT Problems: No - RENAL Hx Chronic Kidney Disease: Yes Hx Kidney Stones: Yes - ENDOCRINE/METABOLIC Hx Endocrine Disorders: No - HEMATOLOGICAL/ONCOLOGICAL Hx Anemia: Yes - INTEGUMENTARY Hx Dermatological Problems: Yes - MUSCULOSKELETAL/RHEUMATOLOGICAL Hx Musculoskeletal Disorders: No Hx Falls: No - GASTROINTESTINAL Hx Diverticulitis: Yes - GENITOURINARY/GYNECOLOGICAL Hx Genitourinary Disorders: Yes - PSYCHIATRIC Hx Psychophysiologic Disorder: No Hx Substance Use: No - SURGICAL HISTORY Hx Appendectomy: Yes Hx Arteriovenous Shunt: Yes Hx Hysterectomy: Yes Hx Tonsillectomy: Yes - ANESTHESIA Hx Anesthesia: Yes Hx Anesthesia Reactions: No Hx Malignant Hyperthermia: No Meds Allergies/Adverse Reactions: Allergies Allergy/AdvReac Type Severity Reaction Status Date / Time No Known Allergies Allergy Verified 05/26/17 00:37 - Medications Medications: Current Medications Amlodipine Besylate (Norvasc) 10 mg PO DAILY [facility] Last Admin: 09/02/17 13:58 Dose: 10 mg Atorvastatin Calcium (Lipitor) 20 mg PO HS [facility] Calcium Acetate (Phoslo) 1,334 mg PO TIDWM [facility] Last Admin: 09/03/17 09:32 Dose: 1,334 mg Docusate Sodium (Colace Liquid) 100 mg NG BID PRN PRN Reason: Constipation Epoetin Seth (Procrit) 4,000 unit IV TTS [facility] Labetalol HCl (Trandate) 100 mg PO Q12@0900,2100 [facility] Last Admin: 09/03/17 09:34 Dose: 100 mg Lisinopril (Zestril) 5 mg PO DAILY [facility] Last Admin: 09/03/17 09:37 Dose: 5 mg Ondansetron HCl (Zofran Inj) 4 mg IVP Q6 PRN PRN Reason: Nausea/Vomiting Pantoprazole Sodium (Protonix Ec Tab) 40 mg PO DAILY [facility] Last Admin: 09/03/17 09:33 Dose: 40 mg Vitamin B Complex/Vit C/Folic Acid (Nephro-Valentino) 1 tab PO DAILY [facility] Last Admin: 09/03/17 09:37 Dose: 1 tab Vitamin B Complex/Vit C/Folic Acid (Nephro-Valentino) 1 tab PO DAILY [facility] Last Admin: 09/03/17 09:33 Dose: 1 tab Results - Vital Signs Recent Vital Signs: Last Vital Signs Temp 98.6 F 09/03/17 07:42 Pulse 82 09/03/17 09:37 Resp 18 09/03/17 07:42 BP 148/65 09/03/17 09:37 Pulse Ox 97 09/03/17 07:42 - Labs Result Diagrams: 09/03/17 04:25 09/02/17 10:00 Labs: Laboratory Results - last 24 hr 09/02/17 09/02/17 09/02/17 09:43 10:00 10:00 WBC 4.7 L RBC 3.41 L Hgb 10.4 L Hct 31.0 L MCV 91.1 D MCH 30.4 MCHC 33.4 RDW 12.7 Plt Count 93 L MPV 11.2 Neut % (Auto) 66.7 Lymph % (Auto) 16.7 L [place] % (Auto) 10.8 H Eos % (Auto) 4.5 H Baso % (Auto) 1.3 Neut # (Auto) 3.1 Lymph # (Auto) 0.8 L [place] # (Auto) 0.5 Eos # (Auto) 0.2 Baso # (Auto) 0.1 pO2 30 VBG pH 7.35 VBG pCO2 43 VBG HCO3 22.8 VBG Total CO2 25.0 VBG O2 Sat (Calc) 75.4 H VBG Base Excess -1.9 L VBG Potassium 5.4 H A-a O2 Difference 66.0 Sodium 137.0 141 Chloride 109.0 H 106 Glucose 95 Lactate 0.8 FiO2 21.0 Crit Value Called To Harley baldwin rn Crit Value Called By 15 Crit Value Read Back Y Blood Gas Notified Time 1026 Potassium 5.5 H Carbon Dioxide 20 L Anion Gap 21 H BUN 76 H Creatinine 5.3 H Est GFR ( Amer) 9 Est GFR (Non-Af Amer) 8 POC Glucose (mg/dL) Random Glucose 93 Calcium 9.4 Total Bilirubin 0.8 AST 24 ALT 32 Alkaline Phosphatase 64 Total Protein 6.7 Albumin 4.1 Globulin 2.7 Albumin/Globulin Ratio 1.5 Venous Blood Potassium 5.4 H Influenza Typ A,B (EIA) 09/02/17 09/02/17 09/03/17 10:00 14:13 04:25 WBC 5.2 RBC 3.50 L Hgb 10.5 L Hct 32.0 L MCV 91.4 MCH 30.0 MCHC 32.8 L RDW 12.7 Plt Count 83 L MPV 11.6 Neut % (Auto) 66.0 Lymph % (Auto) 16.5 L [place] % (Auto) 12.9 H Eos % (Auto) 3.7 Baso % (Auto) 0.9 Neut # (Auto) 3.4 Lymph # (Auto) 0.9 L [place] # (Auto) 0.7 Eos # (Auto) 0.2 Baso # (Auto) 0.0 pO2 VBG pH VBG pCO2 VBG HCO3 VBG Total CO2 VBG O2 Sat (Calc) VBG Base Excess VBG Potassium A-a O2 Difference Sodium Chloride Glucose Lactate FiO2 Crit Value Called To Crit Value Called By Crit Value Read Back Blood Gas Notified Time Potassium Carbon Dioxide Anion Gap BUN Creatinine Est GFR ( Amer) Est GFR (Non-Af Amer) POC Glucose (mg/dL) 87 Random Glucose Calcium Total Bilirubin AST ALT Alkaline Phosphatase Total Protein Albumin Globulin Albumin/Globulin Ratio Venous Blood Potassium Influenza Typ A,B (EIA) Negative for flu a/b
[2017-09-03 12:06] VITALS: BP 161/62; PULSE 86; TEMP 98.4; O2SAT 98
--- NOTE | 2017-09-03 13:27 | CP.PCM.DIS ---
Provider - Provider Date of Admission: 09/02/17 11:34 Attending physician: Jadiel Hearn MD Consults: Dr. Benedict- nephrology Time Spent in preparation of Discharge (in minutes): 25 Hospital Course - Lab Results Lab Results: Micro Results 09/02/17 10:00 Blood Blood Culture - Preliminary NO GROWTH AFTER 24 HOURS Most Recent Lab Values WBC 5.2 K/uL (4.8-10.8) 09/03/17 04:25 RBC 3.50 Mil/uL (3.80-5.20) L 09/03/17 04:25 Hgb 10.5 g/dL (12.0-16.0) L 09/03/17 04:25 Hct 32.0 % (34.0-47.0) L 09/03/17 04:25 MCV 91.4 fl (81.0-99.0) 09/03/17 04:25 MCH 30.0 pg (27.0-31.0) 09/03/17 04:25 MCHC 32.8 g/dL (33.0-37.0) L 09/03/17 04:25 RDW 12.7 % (11.5-14.5) 09/03/17 04:25 Plt Count 83 K/uL (130-400) L 09/03/17 04:25 MPV 11.6 fl (7.2-11.7) 09/03/17 04:25 Neut % (Auto) 66.0 % (50.0-75.0) 09/03/17 04:25 Lymph % (Auto) 16.5 % (20.0-40.0) L 09/03/17 04:25 [place] % (Auto) 12.9 % (0.0-10.0) H 09/03/17 04:25 Eos % (Auto) 3.7 % (0.0-4.0) 09/03/17 04:25 Baso % (Auto) 0.9 % (0.0-2.0) 09/03/17 04:25 Neut # (Auto) 3.4 K/uL (1.8-7.0) 09/03/17 04:25 Lymph # (Auto) 0.9 K/uL (1.0-4.3) L 09/03/17 04:25 [place] # (Auto) 0.7 K/uL (0.0-0.8) 09/03/17 04:25 Eos # (Auto) 0.2 K/uL (0.0-0.7) 09/03/17 04:25 Baso # (Auto) 0.0 K/uL (0.0-0.2) 09/03/17 04:25 pO2 30 mm/Hg (30-55) 09/02/17 09:43 VBG pH 7.35 (7.32-7.43) 09/02/17 09:43 VBG pCO2 43 mmHg (40-60) 09/02/17 09:43 VBG HCO3 22.8 mmol/L 09/02/17 09:43 VBG Total CO2 25.0 mmol/L (22-28) 09/02/17 09:43 VBG O2 Sat (Calc) 75.4 % (40-65) H 09/02/17 09:43 VBG Base Excess -1.9 mmol/L (0.0-2.0) L 09/02/17 09:43 VBG Potassium 5.4 mmol/L (3.6-5.2) H 09/02/17 09:43 A-a O2 Difference 66.0 mm/Hg 09/02/17 09:43 Sodium 137.0 mmol/L (132-148) 09/02/17 09:43 Chloride 109.0 mmol/L (98-107) H 09/02/17 09:43 Glucose 95 mg/dL (65-105) 09/02/17 09:43 Lactate 0.8 mmol/L (0.7-2.1) 09/02/17 09:43 FiO2 21.0 % 09/02/17 09:43 Crit Value Called To Harley baldwin rn 09/02/17 09:43 Crit Value Called By 15 09/02/17 09:43 Crit Value Read Back Y 09/02/17 09:43 Blood Gas Notified Time 1026 09/02/17 09:43 Sodium 141 mmol/l (132-148) 09/02/17 10:00 Potassium 5.5 MMOL/L (3.6-5.0) H 09/02/17 10:00 Chloride 106 mmol/L (98-107) 09/02/17 10:00 Carbon Dioxide 20 mmol/L (22-30) L 09/02/17 10:00 Anion Gap 21 (10-20) H 09/02/17 10:00 BUN 76 mg/dl (7-17) H 09/02/17 10:00 Creatinine 5.3 mg/dl (0.7-1.2) H 09/02/17 10:00 Est GFR ( Amer) 9 09/02/17 10:00 Est GFR (Non-Af Amer) 8 09/02/17 10:00 POC Glucose (mg/dL) 87 mg/dL (65-110) 09/02/17 14:13 Random Glucose 93 mg/dL (65-105) 09/02/17 10:00 Calcium 9.4 mg/dL (8.4-10.2) 09/02/17 10:00 Total Bilirubin 0.8 mg/dl (0.2-1.3) 09/02/17 10:00 AST 24 U/L (14-36) 09/02/17 10:00 ALT 32 U/L (9-52) 09/02/17 10:00 Alkaline Phosphatase 64 U/L (38-126) 09/02/17 10:00 Total Protein 6.7 G/DL (6.3-8.2) 09/02/17 10:00 Albumin 4.1 g/dL (3.5-5.0) 09/02/17 10:00 Globulin 2.7 gm/dL (2.2-3.9) 09/02/17 10:00 Albumin/Globulin Ratio 1.5 (1.0-2.1) 09/02/17 10:00 Venous Blood Potassium 5.4 mmol/L (3.6-5.2) H 09/02/17 09:43 Influenza Typ A,B (EIA) Negative for flu a/b (NEGATIVE) 09/02/17 10:00 - Hospital Course Hospital Course: This is a 77 year old female with a past medical history significant for ESRD on dialysis T-, essential hypertension, and mild dementia, who presents to the ED with the complaint of productive cough, nausea, and vomiting. In the ED, the workup was negative for infection but she was found to be fluid overloaded and hypertensive and hyperkalemic. Upon further investigation, the patient has admittedly not been to her dialysis clinic ([facility]) since April for dialysis. The patient had dialysis on 09/02 here at [facility] with improvement in her symptoms. She was given Kayexelate for her hyperkalemia The patient denies any problems currently. She is being discharged today in stable condition. It was reiterated to the patient and the family that she must go to dialysis during her scheduled appointments. She knows to go to her dialysis center tomorrow. PMD: Genaro Martínez Discharge Exam - Additional Findings Additional findings: Physical exam: Constitutional- cooperative, awake, alert Head- NCAT, PERRL Eye- PERRL, EOMI ENT- normal exam, MMM. Neck- normal inspection, supple, no JVD Respiratory- CTAB, no wheezes rales rhonchi Cardiovascular- RRR, +S1, +S2 no MRG GI/Abdominal- normal bowel sounds, soft, no mass, no hsm Skin- warm, dry Extremities Exam- normal capillary refill, normal inspection Neurological Exam- alert, awake, oriented, mild dementia Psych- normal mood, normal affect Discharge Plan - Follow Up Plan Condition: FAIR Disposition: HOME/ ROUTINE Instructions: Renal Failure Diet (DC) Additional Instructions: RESUME DIALYSIS SESSIONS SCHEDULED [id number]
[2017-09-03 17:15] LABS: HEPATITIS B SURFACE AG Negative (NEGATIVE)
[2017-09-03 17:20] LABS: HEPATITIS B CORE AB NEGATIVE (NEGATIVE)
[2017-09-04] MEDS ORDERED: Epoetin Alfa 4000 UNIT/ML Inj IV SCH (09:00)
== END 2017-09-03 14:00 | disposition home or self-care (01) ==
LOC: H.ER 08:43 → H.ERHOLD 11:34 → INTOOBSV 11:34 → H.TEL 15:20
DX: E87.70 Fluid overload, unspecified (principal); I12.0 Hypertensive chronic kidney disease with stage 5 chronic kidney disease or end stage renal disease; N18.6 End stage renal disease; D63.1 Anemia in chronic kidney disease; Z99.2 Dependence on renal dialysis; Z91.15 Patient's noncompliance with renal dialysis; E87.5 Hyperkalemia; Z23 Encounter for immunization; G30.9 Alzheimer's disease, unspecified; F02.80 Dementia in other diseases classified elsewhere, unspecified severity, without behavioral disturbance, psychotic disturbance, mood disturbance, and anxiety; N25.81 Secondary hyperparathyroidism of renal origin; E78.00 Pure hypercholesterolemia, unspecified
CPT/HCPCS: 36415; 71046; 80053; 82803; 82948; 85025; 86705; 86706; 87040; 87340; 87804; 90732; 93005; 94640; 96374; 99285; G0008; G0009; G0257; G0378; Q2035

== ENCOUNTER 2017-09-13 03:47 | Inpatient (IN) | payer MEDICARE ==
[2017-09-13] MEDS ORDERED: Albuterol-Ipratrop 3 mg / 0.5 (3 ml) UD ONE (04:08)
[2017-09-13] MEDS ORDERED: Albuterol-Ipratrop 3 mg / 0.5 (3 ml) UD INH STA (04:09)
[2017-09-13] MEDS ORDERED: Nitroglycerin 50mg in D5W 50 MG/250 ML BOTTLE IV ONE ×3 (04:10→04:20)
--- NOTE | 2017-09-13 04:27 | ED PDOC ---
HPI: SOB/CHF/COPD Time Seen by Provider: 09/13/17 03:51 Chief Complaint (Nursing): Shortness Of Breath Chief Complaint (Provider): Shortness Of Breath History Per: Patient History/Exam Limitations: no limitations Onset/Duration Of Symptoms: Days (x 1) Current Symptoms Are (Timing): Still Present Additional Complaint(s): 77 year old female, who is well known to the ED and this provider, with a past medical history of HTN, CHF, and end stage renal disease, presents to the ED complaining of shortness of breath. She is known to be non-compliant with dialysis and states she does not recall when her last dialysis was. Her daughter provided additional history revealing that patient has not gone to dialysis since her discharge from ED two weeks ago. Patient reports that she had fallen but denies head injury and loss of consciousness. PMD: none provided Past Medical History Reviewed: Historical Data, Nursing Documentation, Vital Signs Vital Signs: Last Vital Signs Temp 98.3 F 09/13/17 04:03 Pulse 88 09/13/17 06:13 Resp 24 09/13/17 06:13 BP 144/70 09/13/17 06:13 Pulse Ox 98 09/13/17 06:09 - Medical History PMH: Alzheimer's Disease, Anemia, Dementia, Diverticulitis, HTN, Hypercholesterolemia, Kidney Stones, Migraine, End Stage Renal Disease, Chronic Kidney Disease - Surgical History Surgical History: Appendectomy, Tonsillectomy - Family History Family History: States: Unknown Family Hx, Hypertension - Living Arrangements Living Arrangements: Alone - Social History Current smoker - smoking cessation education provided: No Alcohol: None Drugs: Denies - Immunization History Hx Tetanus Toxoid Vaccination: No Hx Influenza Vaccination: No Hx Pneumococcal Vaccination: No - Home Medications Home Medications: Ambulatory Orders Medication Instructions Recorded Atorvastatin [Lipitor] 20 mg PO DAILY 08/16/16 Calcium Acetate [Phoslo] 2 cap PO TID 08/16/16 Labetalol [Trandate] 100 mg PO BID 08/16/16 Lisinopril [Zestril] 5 mg PO DAILY 08/16/16 amLODIPine [Norvasc] 10 mg PO DAILY 08/16/16 hydrALAZINE [Apresoline] 50 mg PO BID 08/16/16 B Complex W-C No.20/Folic Acid 1 cap PO DAILY 11/04/16 [Renal Caps Softgel] B Complex W-C No.20/Folic Acid 1 sgl PO TID 09/02/17 [Renal Caps Softgel] Docusate [Colace LIQUID] 100 mg NG BID PRN udc 09/03/17 Epoetin Seth [Procrit] 4,000 unit IV TTS ml 09/03/17 - Allergies Allergies/Adverse Reactions: Allergies Allergy/AdvReac Type Severity Reaction Status Date / Time No Known Allergies Allergy Verified 09/13/17 03:59 Review of Systems ROS Statement: Except As Marked, All Systems Reviewed And Found Negative Respiratory: Positive for: Shortness of Breath Physical Exam - Reviewed Nursing Documentation Reviewed: Yes Vital Signs Reviewed: Yes - Physical Exam Appears: Positive for: Non-toxic Head Exam: Positive for: ATRAUMATIC, NORMOCEPHALIC Skin: Positive for: Normal Color, Warm, Dry Eye Exam: Positive for: EOMI, Normal appearance, PERRL Neck: Positive for: Normal, Painless ROM, Supple (JVD 2+) Cardiovascular/Chest: Positive for: Regular Rate, Rhythm, Other (hypertensive) Respiratory: Positive for: Rales (bilateral), Respiratory Distress (moderate) Gastrointestinal/Abdominal: Positive for: Normal Exam, Soft Back: Positive for: Normal Inspection. Negative for: L CVA Tenderness, R CVA Tenderness Extremity: Positive for: Normal ROM. Negative for: Deformity Neurologic/Psych: Positive for: Alert, Oriented - Laboratory Results Result Diagrams: 09/13/17 04:24 09/13/17 04:24 - ECG O2 Sat by Pulse Oximetry: 98 (RA) Pulse Ox Interpretation: Normal Medical Decision Making Medical Decision Making: Time: 04:00 Impression: 77 year old female with acute respiratory distress in setting of known renal failure and non compliance with dialysis and CHF Initial Plan: --EKG --CMP --Troponin I --CBC --PTT --Prothrombin time --Chest x-ray --Ativan 2 mg IVP --Duoneb 9 ml INH --Nitroglycerin 50 mg in 250 ml IV --Blood cx --Heplock insertion --1:1 observation --Restraints --Bipap procedure --Peak flow pre/post --Influenza AB Chest x-ray reveals cardiomegaly and bilateral pulmonary edema Admitted for workup of CHF in setting of known renal failure. Case referred to Dr. Rosado, medical services client support consultant and Dr. Okeefe, the hospitalist. Patient was initially refusing oxygen, duonebs and all treatment that necessitated the IV Ativan and soft restraints. Time: 05:55 --spoke to Dr. Benedict who agrees patient should receive stat dialysis treatment --Contacted mobile dialysis Time: 06:05 --spoke to dialysis nurse Tatum who requested that patient has cream applied to her shunt side which has already been ordered and is currently being taken care of. Scribe Attestation: Documented by China Mejias, acting as a scribe for Scotty Floyd MD. Provider Scribe Attestation: All medical record entries made by the Scribe were at my direction and personally dictated by me. I have reviewed the chart and agree that the record accurately reflects my personal performance of the history, physical exam, medical decision making, and the department course for this patient. I have also personally directed, reviewed, and agree with the discharge instructions and disposition. Disposition - Clinical Impression Clinical Impression: Respiratory failure, Hyperkalemia, CHF (congestive heart failure), ESRD (end stage renal disease) - Patient ED Disposition Is Patient to be Admitted: Yes - Disposition Disposition Time: 04:22 Condition: STABLE Patient Signed Over To: Darnell Rosado K - Pt Status Changed To: Hospital Disposition Of: Inpatient - Admit Certification Admit to Inpatient:: After my assessment, the patient will require hospitalization for at least two midnights. This is because of the severity of symptoms shown, intensity of services needed, and/or the medical risk in this patient being treated as an outpatient. Critical Care Time - Critical Care Note Total Time (in mins): 60 Documented critical care: time excludes all time spent performing seperately billable procedures.
[2017-09-13 04:31] LABS: BASO # 0.1 K/uL (0.0-0.2); BASO % 0.9 % (0.0-2.0); EOS # 0.3 K/uL (0.0-0.7); EOS % 4.2 % (0.0-4.0); HEMOGLOBIN 12.1 g/dL (12.0-16.0); LYMPH # 2.7 K/uL (1.0-4.3); LYMPH % 34.5 % (20.0-40.0); MEAN CELL VOLUME 91.6 fl (81.0-99.0); MEAN CORPUSCULAR HEMOGLOBIN 30.6 pg (27.0-31.0); MEAN CORPUSCULAR HGB CONC 33.4 g/dL (33.0-37.0); MEAN PLATELET VOLUME 10.9 fl (7.2-11.7); MONO # 0.9 K/uL (0.0-0.8); MONO % 11.8 % (0.0-10.0); NEUT # 3.8 K/uL (1.8-7.0); NEUT % 48.6 % (50.0-75.0); NRBC % 0.1 % (0.0-0.0); RBC 3.96 Mil/uL (3.80-5.20); WHITE BLOOD COUNT 7.8 K/uL (4.8-10.8)
[2017-09-13 04:36] LABS: INR 0.9 (0.9-1.2); PARTIAL THROMBOPLASTIN TIME 28.3 Seconds (25.6-37.1); PROTHROMBIN TIME 9.8 Seconds (9.8-13.1)
[2017-09-13 04:48] LABS: TROPONIN I 0.026 ng/mL (0.00-0.120)
--- NOTE | 2017-09-13 04:57 | CP.PCM.CON ---
History of Present Illness - History of Present Illness History of Present Illness: Attending: Sandy Rosado MD PMD: Elton Lam MD Reason for consult: Critical care management The patient was seen and examined in the Ed HPI: The hx is obtained from the patient's daughter and after review of the medical records. This is a 77 years old female living alone, with hx of HTN, Dementia, ESRD, non compliant with Dialysis, last admitted on 09/03/17 for bronchitis and missing dialysis. She is brought to the ED with SOB. According to the Daughter the patient called her explaining that she fell while getting off the bed, hitting her head and complaining of right side head pain,but no LOC. No chest pain, palpitation nor fever.She had not gone for Dialysis since the last discharge 2 weeks ago. PMH: Alzheimer's Disease, Anemia; Diverticulitis, HTN; HLD; Kidney Stones, Migraine, ESRD on HD MWF; Diverticulosis PSH: Appendectomy; Tonsillectomy SH: No illegal drug use; No Cigarettes; No ETOH; Live alone FH: States: Unknown Family Hx, Hypertension Allergies: NKDA Medication: Reviewed Review of Systems - Review of Systems Systems not reviewed;Unavailable: Dementia Review of Systems: Review of systems is limited because of Patient's Dementia Past Patient History - Infectious Disease Hx of Infectious Diseases: None - Tetanus Immunizations Tetanus Immunization: Unknown - Past Medical History & Family History Past Medical History?: Yes - Past Social History Smoking Status: Never Smoked Chewing Tobacco Use: No Cigar Use: No Alcohol: None Drugs: Denies Home Situation {Lives}: Alone - CARDIAC Hx Hypercholesterolemia: Yes Hx Hypertension: Yes - PULMONARY Hx Respiratory Disorders: No - NEUROLOGICAL Hx Alzheimer's Disease: Yes Hx Dementia: Yes Hx Migraine: Yes - HEENT Hx HEENT Problems: No - RENAL Hx Chronic Kidney Disease: Yes Hx Dialysis: Yes (MWF HD) Hx Kidney Stones: Yes - ENDOCRINE/METABOLIC Hx Endocrine Disorders: No - HEMATOLOGICAL/ONCOLOGICAL Hx Anemia: Yes - INTEGUMENTARY Hx Dermatological Problems: No - MUSCULOSKELETAL/RHEUMATOLOGICAL Hx Musculoskeletal Disorders: No Hx Falls: No - GASTROINTESTINAL Hx Diverticulitis: Yes - GENITOURINARY/GYNECOLOGICAL Hx Genitourinary Disorders: Yes - PSYCHIATRIC Hx Psychophysiologic Disorder: No Hx Substance Use: No - SURGICAL HISTORY Hx Appendectomy: Yes Hx Tonsillectomy: Yes - ANESTHESIA Hx Anesthesia: Yes Hx Anesthesia Reactions: No Hx Malignant Hyperthermia: No Meds Allergies/Adverse Reactions: Allergies Allergy/AdvReac Type Severity Reaction Status Date / Time No Known Allergies Allergy Verified 09/13/17 03:59 - Medications Medications: Current Medications Nitroglycerin/Dextrose (Nitroglycerin 50 Mg/250 Ml D5w) 50 mg in 250 mls @ 1.5 mls/hr IV .Q24H ONE; 5 MCG/MIN PRN Reason: Protocol Stop: 09/14/17 04:09 Physical Exam - Constitutional Appears: In Acute Distress - Head Exam Head Exam: ATRAUMATIC, NORMAL INSPECTION, NORMOCEPHALIC - Eye Exam Eye Exam: EOMI, Normal appearance Pupil Exam: NORMAL ACCOMODATION, PERRL - ENT Exam ENT Exam: Mucous Membranes Moist, Normal Exam, Normal External Ear Exam, Normal Oropharynx - Neck Exam Neck exam: Positive for: Full Rom, Normal Inspection. Negative for: Lymphadenopathy, Tenderness - Respiratory Exam Respiratory Exam: Rales. absent: Rhonchi, Wheezes Additional comments: Inspiratory bilateral rales - Cardiovascular Exam Cardiovascular Exam: REGULAR RHYTHM, RRR, +S1, +S2 - GI/Abdominal Exam GI & Abdominal Exam: Normal Bowel Sounds, Soft. absent: Mass, Organomegaly, Tenderness - Rectal Exam Rectal Exam: Deferred - Extremities Exam Extremities exam: Negative for: calf tenderness, pedal edema, tenderness Additional comments: Hyperpigmentation at the lateral distal left leg - Back Exam Back exam: absent: CVA tenderness (L), CVA tenderness (R), NORMAL INSPECTION - Neurological Exam Neurological exam: Alert, CN II-XII Intact, Oriented x3, Reflexes Normal - Psychiatric Exam Psychiatric exam: Normal Affect, Normal Mood - Skin Skin Exam: Dry, Intact, Normal Color, Warm Results - Vital Signs Recent Vital Signs: Last Vital Signs Temp 98.3 F 09/13/17 04:03 Pulse 126 H 09/13/17 04:30 Resp 18 09/13/17 04:03 BP 211/96 H 09/13/17 04:03 Pulse Ox 98 09/13/17 04:53 - Labs Result Diagrams: 09/13/17 04:24 09/13/17 04:24 Labs: Laboratory Results - last 24 hr 09/13/17 09/13/17 09/13/17 04:24 04:24 04:24 WBC 7.8 RBC 3.96 Hgb 12.1 Hct 36.3 MCV 91.6 MCH 30.6 MCHC 33.4 RDW 13.0 Plt Count 145 MPV 10.9 Neut % (Auto) 48.6 L Lymph % (Auto) 34.5 [place] % (Auto) 11.8 H Eos % (Auto) 4.2 H Baso % (Auto) 0.9 Neut # (Auto) 3.8 Lymph # (Auto) 2.7 [place] # (Auto) 0.9 H Eos # (Auto) 0.3 Baso # (Auto) 0.1 PT 9.8 INR 0.9 APTT 28.3 Troponin I 0.0260 - Impressions Impression: NSR 95/min - Imaging and Cardiology Chest x-ray Status: Image reviewed by me Additional comment: Generalized haziness at both lung christianson Assessment & Plan - Assessment and Plan (Free Text) Assessment: #. Fall with Head trauma #. Volume overload #. ESRD on HD #. Htperkalemia #. HTN #. Dementia Plan: 77 years old female living alone, with hx of HTN, Dementia, ESRD, non compliant with Dialysis, last admitted on 09/03/17 for bronchitis and missing dialysis. She is brought to the ED with SOB and falling hitting her head while getting off the bed. #. Fall with Head trauma - Follow CT head with Contrast - Tylenol for pain #. SOB secondary to Volume overload - BIPAP - For Dialysis today #. ESRD on HD on HD MWF - Consult Dr Benedict Nephrology - HD today #. Hperkalemia - D50 1Amp given with Regular Insulin IV - Sodium Bicarbonate given in ED given - patient for Hemodialysis - Follow Electrolytes #. HTN - Tridil started in ed - Amlodipine/ Labetalol/Lisinopril/Apresoline #. DVT prophylaxis: SVF - start Lovenox if CT head negative for Bleed #. Code Status: Full - Date & Time Date: 09/13/17 Time: 04:57
[2017-09-13 04:58] LABS: ALB/GLOB RATIO 1.5 (1.0-2.1); ALBUMIN 4.8 g/dL (3.5-5.0); CALCIUM 10.1 mg/dL (8.4-10.2)
[2017-09-13] MEDS ORDERED: Sodium Bicarbonate 7.5% (0.9 MEQ/ML) 50ML INJ IV ONE (04:58)
[2017-09-13] MEDS ORDERED: Insulin Regular 100 units/ml IV ONE (04:58)
[2017-09-13] MEDS ORDERED: Dextrose 50% SYRINGE Inj (50 ml) IVP ONE (04:58)
[2017-09-13] MEDS ORDERED: Insulin Regular 100 units/ml ONE (05:26)
[2017-09-13] MEDS ORDERED: Dextrose 50% SYRINGE Inj (50 ml) ONE (05:31)
[2017-09-13] MEDS ORDERED: Lidocaine/Prilocaine CREAM 5GM TP ONE ×2 (06:03→06:40)
[2017-09-13 06:49] VITALS: BMI 22.0
[2017-09-13 06:50] LABS: ABG ALLEN TEST YES; ARTERIAL BLOOD GAS HCO3 22.8 mmol/L (21-28); ARTERIAL BLOOD GAS HEMOGLOBIN 10.4 g/dL (11.7-17.4); ARTERIAL BLOOD GAS O2 SAT 99.9 % (95-98); ARTERIAL BLOOD GAS PCO2 52 mm/Hg (35-45); ARTERIAL BLOOD GAS PH 7.28 (7.35-7.45); ARTERIAL BLOOD GAS PO2 308 mm/Hg (80-100)
--- NOTE | 2017-09-13 06:53 | CT ---
EXAM: CT Head Without Intravenous Contrast CLINICAL HISTORY: 77 years old, female; Injury or trauma; Fall; Initial encounter; Blunt trauma (contusions or hematomas); Additional info: Fall/right parietal soft tissue swelling TECHNIQUE: Axial computed tomography images of the head/brain without intravenous contrast. All CT scans at this facility use one or more dose reduction techniques, viz.: automated exposure control; ma/kV adjustment per patient size (including targeted exams where dose is matched to indication; i.e. head); or iterative reconstruction technique. Coronal and sagittal reformatted images were created and reviewed. COMPARISON: CT - HEAD W/O CONTRAST 2017-06-10 11:18 FINDINGS: Brain: Mild atrophy. No intracranial hemorrhage. No mass. Multiple scattered foci of decreased attenuation within periventricular/subcortical white matter. No edema. Ventricles: No hydrocephalus. Bones/joints: No acute fracture. Soft tissues: RIGHT parietal soft tissue swelling. Vasculature: Atherosclerotic disease of intracranial arteries. Sinuses: No acute sinusitis. Mastoid air cells: No mastoid effusion. Orbits: Unremarkable as visualized. IMPRESSION: 1. No intracranial hemorrhage. 2. Nonspecific white matter changes. 3. Incidental/non-acute findings are described above.
--- NOTE | 2017-09-13 08:43 | CP.PCM.CON ---
History of Present Illness - History of Present Illness History of Present Illness: This patient who is 77 years of phase known to me with end stage renal disease on maintenance dialysis. However this patient has not shown for hemodialysis since last admission about 2 weeks ago when she was in the hospital. And she presented to the emergency room this morning with shortness of breath difficulty breathing hyperkalemia she has to be given multiple medication for hyperkalemia and oxygen. Patient has not been compliance and she does not like dialysis she does not want to come for dialysis as outpatient and that she gets sick at home and she show up in the emergency room. Patient has multitude of previous admissions related to multitude of medical problem including but not limited to chronic kidney disease hypertension congestive heart failure without hyperkalemia among other things. PMH: Alzheimer's Disease, Anemia; Diverticulitis, HTN; HLD; Kidney Stones, Migraine, ESRD on HD MWF; Diverticulosis PSH: Appendectomy; Tonsillectomy SH: No illegal drug use; No Cigarettes; No ETOH; Live alone FH: States: Unknown Family Hx, Hypertension Allergies: NKDA Medication: Reviewed Review of Systems - Review of Systems Systems not reviewed;Unavailable: Respiratory Distress - Constitutional Constitutional: Malaise. absent: Chills, Fever - EENT Eyes: Change in Vision. absent: Exophthalmos Nose/Mouth/Throat: Nasal Congestion - Cardiovascular Cardiovascular: Dyspnea, Edema, Leg Edema, Orthopnea. absent: Chest Pain - Respiratory Respiratory: Cough, Dyspnea, Chest Congestion. absent: Hemoptysis - Gastrointestinal Gastrointestinal: Nausea. absent: Abdominal Pain, Cramping, Diarrhea, Dysphagia - Genitourinary Genitourinary: Nocturia. absent: Pyuria - Musculoskeletal Musculoskeletal: Muscle Weakness. absent: Numbness - Integumentary Integumentary: absent: Acne - Neurological Neurological: Confusion, Disequilibrium, Weakness. absent: Focal Weakness, Syncope - Psychiatric Psychiatric: As Per HPI, Anxiety, Confusion - Endocrine Endocrine: Fatigue - Hematologic/Lymphatic Hematologic: absent: Easy Bleeding Past Patient History - Infectious Disease Hx of Infectious Diseases: None - Tetanus Immunizations Tetanus Immunization: Unknown - Past Medical History & Family History Past Medical History?: Yes - Past Social History Alcohol: None Drugs: Denies - CARDIAC Hx Hypercholesterolemia: Yes Hx Hypertension: Yes - PULMONARY Hx Respiratory Disorders: No - NEUROLOGICAL Hx Alzheimer's Disease: Yes Hx Dementia: Yes Hx Migraine: Yes - HEENT Hx HEENT Problems: No - RENAL Hx Chronic Kidney Disease: Yes Hx Kidney Stones: Yes - ENDOCRINE/METABOLIC Hx Endocrine Disorders: No - HEMATOLOGICAL/ONCOLOGICAL Hx Anemia: Yes - INTEGUMENTARY Hx Dermatological Problems: No - MUSCULOSKELETAL/RHEUMATOLOGICAL Hx Musculoskeletal Disorders: No Hx Falls: No - GASTROINTESTINAL Hx Diverticulitis: Yes - GENITOURINARY/GYNECOLOGICAL Hx Genitourinary Disorders: Yes - PSYCHIATRIC Hx Psychophysiologic Disorder: No Hx Substance Use: No - SURGICAL HISTORY Hx Appendectomy: Yes Hx Tonsillectomy: Yes - ANESTHESIA Hx Anesthesia: Yes Hx Anesthesia Reactions: No Hx Malignant Hyperthermia: No Meds Allergies/Adverse Reactions: Allergies Allergy/AdvReac Type Severity Reaction Status Date / Time No Known Allergies Allergy Verified 09/13/17 03:59 - Medications Medications: Current Medications Acetaminophen (Tylenol 325mg Tab) 650 mg PO Q6 PRN PRN Reason: Headache Amlodipine Besylate (Norvasc) 10 mg PO DAILY [facility] Atorvastatin Calcium (Lipitor) 20 mg PO DAILY [facility] Calcium Acetate (Phoslo) 1,334 mg PO TID [facility] Docusate Sodium (Colace Liquid) 100 mg NG BID PRN PRN Reason: Constipation Heparin Sodium (Porcine) (Heparin) 5,000 units SC Q12 ANKUR PRN Reason: Protocol Hydralazine HCl (Apresoline) 50 mg PO BID [facility] Nitroglycerin/Dextrose (Nitroglycerin 50 Mg/250 Ml D5w) 50 mg in 250 mls @ 1.5 mls/hr IV .Q24H ONE; 5 MCG/MIN PRN Reason: Protocol Stop: 09/14/17 04:09 Labetalol HCl (Trandate) 100 mg PO BID ANKUR Lisinopril (Zestril) 5 mg PO DAILY [facility] Physical Exam - Constitutional Appears: In Acute Distress - ENT Exam ENT Exam: Mucous Membranes Moist - Neck Exam Neck exam: Negative for: Lymphadenopathy - Respiratory Exam Respiratory Exam: Rales, Rhonchi. absent: Chest Wall Tenderness - Cardiovascular Exam Cardiovascular Exam: REGULAR RHYTHM. absent: Gallop, JVD, RRR, Rubs - GI/Abdominal Exam GI & Abdominal Exam: Normal Bowel Sounds. absent: Guarding - Extremities Exam Extremities exam: Negative for: calf tenderness - Back Exam Back exam: absent: CVA tenderness (L), CVA tenderness (R) - Neurological Exam Neurological exam: Altered Results - Vital Signs Recent Vital Signs: Last Vital Signs Temp 98.4 F 09/13/17 08:00 Pulse 73 09/13/17 08:28 Resp 20 09/13/17 08:00 BP 174/77 H 09/13/17 08:00 Pulse Ox 100 09/13/17 08:00 - Labs Result Diagrams: 09/13/17 04:24 09/13/17 04:24 Labs: Laboratory Results - last 24 hr 09/13/17 09/13/17 09/13/17 04:24 04:24 04:24 WBC 7.8 RBC 3.96 Hgb 12.1 Hct 36.3 MCV 91.6 MCH 30.6 MCHC 33.4 RDW 13.0 Plt Count 145 MPV 10.9 Neut % (Auto) 48.6 L Lymph % (Auto) 34.5 Rabun % (Auto) 11.8 H Eos % (Auto) 4.2 H Baso % (Auto) 0.9 Neut # (Auto) 3.8 Lymph # (Auto) 2.7 Rabun # (Auto) 0.9 H Eos # (Auto) 0.3 Baso # (Auto) 0.1 PT 9.8 INR 0.9 APTT 28.3 pCO2 pO2 HCO3 ABG pH ABG Total CO2 ABG O2 Saturation ABG O2 Content ABG Base Excess ABG Hemoglobin ABG Carboxyhemoglobin POC ABG HHb (Measured) ABG Methemoglobin ABG O2 Capacity Nacho Test A-a O2 Difference Hgb O2 Saturation Vent Mode Mechanical Rate FiO2 Inspiratory BiPAP Expiratory BiPAP Sodium 143 Potassium 6.4 H* Chloride 103 Carbon Dioxide 22 Anion Gap 24 H BUN 83 H Creatinine 5.1 H Est GFR ( Amer) 10 Est GFR (Non-Af Amer) 8 Random Glucose 119 H Calcium 10.1 Total Bilirubin 0.7 AST 38 H D ALT 28 Alkaline Phosphatase 99 Troponin I 0.0260 Total Protein 8.1 Albumin 4.8 Globulin 3.3 Albumin/Globulin Ratio 1.5 Influenza Typ A,B (EIA) 09/13/17 09/13/17 06:24 06:45 WBC RBC Hgb Hct MCV MCH MCHC RDW Plt Count MPV Neut % (Auto) Lymph % (Auto) Rabun % (Auto) Eos % (Auto) Baso % (Auto) Neut # (Auto) Lymph # (Auto) Rabun # (Auto) Eos # (Auto) Baso # (Auto) PT INR APTT pCO2 52 H pO2 308 H HCO3 22.8 ABG pH 7.28 L ABG Total CO2 26.0 ABG O2 Saturation 99.9 H ABG O2 Content 15.0 ABG Base Excess -2.7 L ABG Hemoglobin 10.4 L ABG Carboxyhemoglobin 1.3 POC ABG HHb (Measured) 0.1 ABG Methemoglobin 1.7 ABG O2 Capacity 15.0 L Nacho Test Yes A-a O2 Difference 340.0 Hgb O2 Saturation 96.9 Vent Mode Bipap Mechanical Rate 14 FiO2 100.0 Inspiratory BiPAP 10 Expiratory BiPAP 5 Sodium Potassium Chloride Carbon Dioxide Anion Gap BUN Creatinine Est GFR ( Amer) Est GFR (Non-Af Amer) Random Glucose Calcium Total Bilirubin AST ALT Alkaline Phosphatase Troponin I Total Protein Albumin Globulin Albumin/Globulin Ratio Influenza Typ A,B (EIA) Negative for flu a/b Assessment & Plan (1) CHF (congestive heart failure) Status: Acute (2) ESRD (end stage renal disease) Assessment and Plan: #1Patient with END stage renal disease, has been missing dialysis no show up for 2 weeks came to the emergency room with volume overload congestive heart failure requiring emergency dialysis. #2 hyperkalemia patient was given flu medications in the emergency room waiting for the dialysis which is starting #3 hypertension continue on antihypertensive medication probably the blood pressure with improved post dialysis. #4History of hyperphosphatemia patient taken binders. #5 History of secondary hyperparathyroidism we'll recheck PTH. The daughter at the bedside Dionna Fortune spoke to her for her compliance and the patient keep refusing to cooperate. Status: Acute (3) Hyperkalemia Status: Acute
--- NOTE | 2017-09-13 08:56 | CP.PCM.HP ---
History of Present Illness - History of Present Illness History of Present Illness: Patient evaluated with Dr Rosado during rounds Hx taken from records since patient is lethargic and no family member at the time of exam PMD: Elton Lam MD 77 years old female with hx of HTN, Dementia, ESRD, non compliant with Dialysis , recently admitted to [facility] bronchitis and missing dialysis. She was brought to the ED with c/o SOB. There was a fall reported at home and patient called her daughter c/o headache. Patient had no other complains. She had not gone for Dialysis since the last discharge 2 weeks ago. PMH: Alzheimer's Disease, HTN; HLD; ESRD on HD MWF PSH: Appendectomy; Tonsillectomy SH: No illegal drug use; No Cigarettes; No ETOH; Live alone FH: States: Unknown Family Hx, Hypertension Present on Admission - Present on Admission Any Indicators Present on Admission: No Review of Systems - Review of Systems Review of Systems: Unable to get due to patient sedated Past Patient History - Infectious Disease Hx of Infectious Diseases: None - Tetanus Immunizations Tetanus Immunization: Unknown - Past Medical History & Family History Past Medical History?: Yes - Past Social History Alcohol: None Drugs: Denies - CARDIAC Hx Hypercholesterolemia: Yes Hx Hypertension: Yes - PULMONARY Hx Respiratory Disorders: No - NEUROLOGICAL Hx Alzheimer's Disease: Yes Hx Dementia: Yes Hx Migraine: Yes - HEENT Hx HEENT Problems: No - RENAL Hx Chronic Kidney Disease: Yes Hx Kidney Stones: Yes - ENDOCRINE/METABOLIC Hx Endocrine Disorders: No - HEMATOLOGICAL/ONCOLOGICAL Hx Anemia: Yes - INTEGUMENTARY Hx Dermatological Problems: No - MUSCULOSKELETAL/RHEUMATOLOGICAL Hx Musculoskeletal Disorders: No Hx Falls: No - GASTROINTESTINAL Hx Diverticulitis: Yes - GENITOURINARY/GYNECOLOGICAL Hx Genitourinary Disorders: Yes - PSYCHIATRIC Hx Psychophysiologic Disorder: No Hx Substance Use: No - SURGICAL HISTORY Hx Appendectomy: Yes Hx Tonsillectomy: Yes - ANESTHESIA Hx Anesthesia: Yes Hx Anesthesia Reactions: No Hx Malignant Hyperthermia: No Meds Allergies/Adverse Reactions: Allergies Allergy/AdvReac Type Severity Reaction Status Date / Time No Known Allergies Allergy Verified 09/13/17 03:59 Physical Exam - Constitutional Appears: Other Additional comments: Lethargic/sedated - ENT Exam ENT Exam: Mucous Membranes Moist - Respiratory Exam Respiratory Exam: NORMAL BREATHING PATTERN. absent: Rales, Wheezes Additional comments: On Bipap - Cardiovascular Exam Cardiovascular Exam: REGULAR RHYTHM, +S1, +S2. absent: Gallop - GI/Abdominal Exam GI & Abdominal Exam: Normal Bowel Sounds - Neurological Exam Neurological exam: Altered (Lethargic/Sedated) - Skin Skin Exam: Warm Results - Vital Signs Recent Vital Signs: Last Vital Signs Temp 98.4 F 09/13/17 08:00 Pulse 73 09/13/17 08:28 Resp 20 09/13/17 08:00 BP 174/77 H 09/13/17 08:00 Pulse Ox 100 09/13/17 08:00 - Labs Result Diagrams: 09/13/17 04:24 09/13/17 04:24 Labs: Laboratory Results - last 24 hr 09/13/17 09/13/17 09/13/17 04:24 04:24 04:24 WBC 7.8 RBC 3.96 Hgb 12.1 Hct 36.3 MCV 91.6 MCH 30.6 MCHC 33.4 RDW 13.0 Plt Count 145 MPV 10.9 Neut % (Auto) 48.6 L Lymph % (Auto) 34.5 Potter % (Auto) 11.8 H Eos % (Auto) 4.2 H Baso % (Auto) 0.9 Neut # (Auto) 3.8 Lymph # (Auto) 2.7 Potter # (Auto) 0.9 H Eos # (Auto) 0.3 Baso # (Auto) 0.1 PT 9.8 INR 0.9 APTT 28.3 pCO2 pO2 HCO3 ABG pH ABG Total CO2 ABG O2 Saturation ABG O2 Content ABG Base Excess ABG Hemoglobin ABG Carboxyhemoglobin POC ABG HHb (Measured) ABG Methemoglobin ABG O2 Capacity Nacho Test A-a O2 Difference Hgb O2 Saturation Vent Mode Mechanical Rate FiO2 Inspiratory BiPAP Expiratory BiPAP Sodium 143 Potassium 6.4 H* Chloride 103 Carbon Dioxide 22 Anion Gap 24 H BUN 83 H Creatinine 5.1 H Est GFR ( Amer) 10 Est GFR (Non-Af Amer) 8 Random Glucose 119 H Calcium 10.1 Total Bilirubin 0.7 AST 38 H D ALT 28 Alkaline Phosphatase 99 Troponin I 0.0260 Total Protein 8.1 Albumin 4.8 Globulin 3.3 Albumin/Globulin Ratio 1.5 Influenza Typ A,B (EIA) 09/13/17 09/13/17 06:24 06:45 WBC RBC Hgb Hct MCV MCH MCHC RDW Plt Count MPV Neut % (Auto) Lymph % (Auto) Potter % (Auto) Eos % (Auto) Baso % (Auto) Neut # (Auto) Lymph # (Auto) Potter # (Auto) Eos # (Auto) Baso # (Auto) PT INR APTT pCO2 52 H pO2 308 H HCO3 22.8 ABG pH 7.28 L ABG Total CO2 26.0 ABG O2 Saturation 99.9 H ABG O2 Content 15.0 ABG Base Excess -2.7 L ABG Hemoglobin 10.4 L ABG Carboxyhemoglobin 1.3 POC ABG HHb (Measured) 0.1 ABG Methemoglobin 1.7 ABG O2 Capacity 15.0 L Nacho Test Yes A-a O2 Difference 340.0 Hgb O2 Saturation 96.9 Vent Mode Bipap Mechanical Rate 14 FiO2 100.0 Inspiratory BiPAP 10 Expiratory BiPAP 5 Sodium Potassium Chloride Carbon Dioxide Anion Gap BUN Creatinine Est GFR ( Amer) Est GFR (Non-Af Amer) Random Glucose Calcium Total Bilirubin AST ALT Alkaline Phosphatase Troponin I Total Protein Albumin Globulin Albumin/Globulin Ratio Influenza Typ A,B (EIA) Negative for flu a/b Assessment & Plan - Assessment and Plan (Free Text) Assessment: SOB likely due to volume overload Bipap ICU Metabolic acidosis Likely due to decompensated ESRD Admitted to ICU S/P bicarb at ED Stable Decompensated ESRD Noncompliant with dialysis Nephro consult Poss Dialysis today Hyperkalemia Acute likely due to noncompliance with dialysis F/U Nephro recs
--- NOTE | 2017-09-13 09:21 | CP.PCM.PN ---
Subjective - Date & Time of Evaluation Date of Evaluation: 09/13/17 Time of Evaluation: 09:16 - Subjective Subjective: Dialysis note Patient presented with volume overloaded congestive heart failure with end stage renal disease patient has not been showing up for dialysis for 2 weeks. Hyperkalemia and hypertension Objective - Vital Signs/Intake and Output Vital Signs (last 24 hours): Temp Pulse Resp BP Pulse Ox 98.4 F 73 20 174/77 H 100 09/13/17 08:00 09/13/17 08:28 09/13/17 08:00 09/13/17 08:00 09/13/17 08:00 - Medications Medications: Current Medications Acetaminophen (Tylenol 325mg Tab) 650 mg PO Q6 PRN PRN Reason: Headache Amlodipine Besylate (Norvasc) 10 mg PO DAILY [facility] Atorvastatin Calcium (Lipitor) 20 mg PO DAILY [facility] Calcium Acetate (Phoslo) 1,334 mg PO TID [facility] Docusate Sodium (Colace Liquid) 100 mg NG BID PRN PRN Reason: Constipation Heparin Sodium (Porcine) (Heparin) 5,000 units SC Q12 ANKUR PRN Reason: Protocol Hydralazine HCl (Apresoline) 50 mg PO BID [facility] Nitroglycerin/Dextrose (Nitroglycerin 50 Mg/250 Ml D5w) 50 mg in 250 mls @ 1.5 mls/hr IV .Q24H ONE; 5 MCG/MIN PRN Reason: Protocol Stop: 09/14/17 04:09 Labetalol HCl (Trandate) 100 mg PO BID [facility] Lisinopril (Zestril) 5 mg PO DAILY ANKUR - Labs Labs: 09/13/17 04:24 09/13/17 04:24 PT 9.8 Seconds (9.8-13.1) 09/13/17 04:24 INR 0.9 (0.9-1.2) 09/13/17 04:24 APTT 28.3 Seconds (25.6-37.1) 09/13/17 04:24 - Constitutional Appears: In Acute Distress - Eye Exam Eye Exam: Conjunctival injection - ENT Exam ENT Exam: Mucous Membranes Moist - Respiratory Exam Respiratory Exam: Rales, Rhonchi. absent: Chest Wall Tenderness - Cardiovascular Exam Cardiovascular Exam: absent: Gallop, JVD, Rubs - GI/Abdominal Exam GI & Abdominal Exam: Soft, Normal Bowel Sounds - Extremities Exam Extremities Exam: absent: Calf Tenderness - Back Exam Back Exam: absent: CVA tenderness (L), CVA tenderness (R) - Neurological Exam Neurological Exam: Altered - Psychiatric Exam Psychiatric exam: Anxious - Skin Skin Exam: absent: Cyanosis Assessment and Plan (1) CHF (congestive heart failure) Status: Acute (2) ESRD (end stage renal disease) Assessment & Plan: Hemodialysis started for congestive heart failure and hyperkalemia. Dialysis started from the left upper arm AV fistula The daughter at the bedside Consent was taken from the patient and the daughter The dialysis as follow Sodium bath 138 Bicarbonate bath 34 Potassium bath 2 mEq Ultrafiltration 2000 mL as tolerated I discussed the dialysis with the nursing at the bedside. Patient was given Ativan because she is agitated. counseling with the daughter and the patient to come as an outpatient for dialysis again and again. Status: Acute (3) Hyperkalemia Status: Acute
--- NOTE | 2017-09-13 10:40 | CP.CCUPN ---
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 According to HD records, last HD was 6 months ago. Seen by Nephro today and deemed to require necessary HD at least twice a week. Hyperkalemic on admission and hypoxemic placed onto BiPAP support at 10/5, rate 14, 100% and now REDUCED to 50% OXYGEN. Required sedation in ER with 1:1 supervision for agitation with refusal for oxygen support and mask neb treatments. Undergoing HD now in ICU and awakened with recurrent psychomotor agitation, unresponsive to re-direction and assurance by the daughter at the bedside. Other vitals and I/O s reviewed: afebrile, no fever spikes since admission. Allergies: NKDA Meds: at home included Norvasc, Lipitor, Phoslo, Colace, Procrit, Hydralazine, Trandate, Zestril. ROS: No other pertinent negs or positives on + system review obtainable to agitation. PMSFH: All other Nursing and physician documentation reviewed to date; no new pertinent info noted relevant to current medical problems. LABS: WBC= 7.8 HGB= 12.1 PLTs= 145K Na= 143 K= 6.4 HCO3=22 CL= 103 BUN/Cr= 83/5.1 BS= 103 CXR: (my interp) RLL, L effusion and left sided interstitial changes. IMPRESSION / MAJOR PROBLEMS NOW: 1. Acute Resp Insufficiency 2 Fluid overload / Pulm Edema 2. r/o left Lung Pneumonitis 3. Hyperkalemia with ESRD due to HD non-compliance 4. Dementia / Delirium with Psycho-motor agitation 5. HTN by history PLAN: 1. Patient now refusing BiPAP support, change to nasal cannula oxygen as tolerated. 2. Haldol prn 3. HD to continue as scheduled and ordered by Nephrology. 4. Check repeat CXR post HD. 5. CT Brain negative for acute pathology. Heparin SC ordered for DVT/PTE Prophylaxis. 6. Follow Temps, wbc, check PCT level. 7. Clarify any Advance Directives. CCU Objective - Vital Signs / Intake & Output Vital Signs (Last 4 hours): Vital Signs Temp Pulse Pulse Resp BP Pulse Ox 09/13/17 10:00 75 20 143/77 99 09/13/17 09:26 90 174/77 H 09/13/17 09:00 84 12 174/77 H 100 09/13/17 08:28 73 09/13/17 08:00 98.4 F 80 20 174/77 H 100 09/13/17 06:50 97.7 F 76 15 153/82 H 100 09/13/17 06:49 79 100 H 100 09/13/17 06:42 98 Intake and Output (Last 8hrs): Intake & Output 09/12/17 09/13/17 09/13/17 22:59 06:59 14:59 Weight 145 lb - Physical Exam Physical Exam Limitations: Positive for: Uncooperative Head: Positive for: Normocephalic, Tenderness (R posterior parietal area) Pupils: Positive for: PERRL Extroacular Muscles: Positive for: EOMI Conjunctiva: Positive for: Normal. Negative for: Icteric Mouth: Positive for: Moist Mucous Membranes Neck: Negative for: JVD Respiratory/Chest: Positive for: Decreased Breath Sounds, Tachypneic. Negative for: Accessory Muscle Use, Wheezes Cardiovascular: Positive for: Regular Rate and Rhythm. Negative for: Rub Abdomen: Positive for: Normal Bowel Sounds. Negative for: Tenderness, Distention, Mass/Organomegaly Lower Extremity: Positive for: NORMAL PULSES. Negative for: CALF TENDERNESS, Cyanosis Skin: Positive for: Warm, Dry. Negative for: Rashes Psychiatric: Positive for: Anxious, Agitated - Medications Active Medications: Active Medications Generic Name Dose Route Start Last Admin Trade Name Freq PRN Reason Stop Dose Admin Acetaminophen 650 mg 09/13/17 05:31 Tylenol 325mg Tab PO Q6 PRN Headache Amlodipine Besylate 10 mg 09/13/17 09:00 Norvasc PO DAILY ANKUR Atorvastatin Calcium 20 mg 09/13/17 09:00 Lipitor PO DAILY ANKUR Calcium Acetate 1,334 mg 09/13/17 09:00 09/13/17 09:31 Phoslo PO Not Given TID ANKUR Docusate Sodium 100 mg 09/13/17 05:23 Colace Liquid NG BID PRN Constipation Haloperidol Lactate 5 mg 09/13/17 10:15 Haldol IVP Q6 PRN Agitation Heparin Sodium (Porcine) 5,000 units 09/13/17 09:00 Heparin SC Q12 [facility] Protocol Hydralazine HCl 50 mg 09/13/17 09:00 09/13/17 09:26 Apresoline PO Not Given BID [facility] Labetalol HCl 100 mg 09/13/17 09:00 09/13/17 09:31 Trandate PO Not Given BID [facility] Lisinopril 5 mg 09/13/17 09:00 Zestril PO DAILY ANKUR - Patient Studies Lab Studies: Lab Studies 09/13/17 09/13/17 09/13/17 Range/Units 06:45 06:24 04:24 WBC (4.8-10.8) K/uL RBC (3.80-5.20) Mil/uL Hgb (12.0-16.0) g/dL Hct (34.0-47.0) % MCV (81.0-99.0) fl MCH (27.0-31.0) pg MCHC (33.0-37.0) g/dL RDW (11.5-14.5) % Plt Count (130-400) K/uL MPV (7.2-11.7) fl Neut % (Auto) (50.0-75.0) % Lymph % (Auto) (20.0-40.0) % [place] % (Auto) (0.0-10.0) % Eos % (Auto) (0.0-4.0) % Baso % (Auto) (0.0-2.0) % Neut # (Auto) (1.8-7.0) K/uL Lymph # (Auto) (1.0-4.3) K/uL [place] # (Auto) (0.0-0.8) K/uL Eos # (Auto) (0.0-0.7) K/uL Baso # (Auto) (0.0-0.2) K/uL PT 9.8 (9.8-13.1) Seconds INR 0.9 (0.9-1.2) APTT 28.3 (25.6-37.1) Seconds pCO2 52 H (35-45) mm/Hg pO2 308 H (80-100) mm/Hg HCO3 22.8 (21-28) mmol/L ABG pH 7.28 L (7.35-7.45) ABG Total CO2 26.0 (22-28) mmol/L ABG O2 Saturation 99.9 H (95-98) % ABG O2 Content 15.0 (15-23) ML/dL ABG Base Excess -2.7 L (-2.0-3.0) mmol/L ABG Hemoglobin 10.4 L (11.7-17.4) g/dL ABG Carboxyhemoglobin 1.3 (0.5-1.5) % POC ABG HHb (Measured) 0.1 (0.0-5.0) % ABG Methemoglobin 1.7 (0.0-3.0) % ABG O2 Capacity 15.0 L (16-24) mL/dL Nacho Test Yes A-a O2 Difference 340.0 mm/Hg Hgb O2 Saturation 96.9 (95.0-98.0) % Vent Mode Bipap Mechanical Rate 14 FiO2 100.0 % Inspiratory BiPAP 10 Expiratory BiPAP 5 Sodium (132-148) mmol/l Potassium (3.6-5.0) MMOL/L Chloride (98-107) mmol/L Carbon Dioxide (22-30) mmol/L Anion Gap (10-20) BUN (7-17) mg/dl Creatinine (0.7-1.2) mg/dl Est GFR ( Amer) Est GFR (Non-Af Amer) Random Glucose (65-105) mg/dL Calcium (8.4-10.2) mg/dL Total Bilirubin (0.2-1.3) mg/dl AST (14-36) U/L ALT (9-52) U/L Alkaline Phosphatase (38-126) U/L Troponin I (0.00-0.120) ng/mL Total Protein (6.3-8.2) G/DL Albumin (3.5-5.0) g/dL Globulin (2.2-3.9) gm/dL Albumin/Globulin Ratio (1.0-2.1) Influenza Typ A,B (EIA) Negative for flu a/b (NEGATIVE) 09/13/17 09/13/17 Range/Units 04:24 04:24 WBC 7.8 (4.8-10.8) K/uL RBC 3.96 (3.80-5.20) Mil/uL Hgb 12.1 (12.0-16.0) g/dL Hct 36.3 (34.0-47.0) % MCV 91.6 (81.0-99.0) fl MCH 30.6 (27.0-31.0) pg MCHC 33.4 (33.0-37.0) g/dL RDW 13.0 (11.5-14.5) % Plt Count 145 (130-400) K/uL MPV 10.9 (7.2-11.7) fl Neut % (Auto) 48.6 L (50.0-75.0) % Lymph % (Auto) 34.5 (20.0-40.0) % [place] % (Auto) 11.8 H (0.0-10.0) % Eos % (Auto) 4.2 H (0.0-4.0) % Baso % (Auto) 0.9 (0.0-2.0) % Neut # (Auto) 3.8 (1.8-7.0) K/uL Lymph # (Auto) 2.7 (1.0-4.3) K/uL [place] # (Auto) 0.9 H (0.0-0.8) K/uL Eos # (Auto) 0.3 (0.0-0.7) K/uL Baso # (Auto) 0.1 (0.0-0.2) K/uL PT (9.8-13.1) Seconds INR (0.9-1.2) APTT (25.6-37.1) Seconds pCO2 (35-45) mm/Hg pO2 (80-100) mm/Hg HCO3 (21-28) mmol/L ABG pH (7.35-7.45) ABG Total CO2 (22-28) mmol/L ABG O2 Saturation (95-98) % ABG O2 Content (15-23) ML/dL ABG Base Excess (-2.0-3.0) mmol/L ABG Hemoglobin (11.7-17.4) g/dL ABG Carboxyhemoglobin (0.5-1.5) % POC ABG HHb (Measured) (0.0-5.0) % ABG Methemoglobin (0.0-3.0) % ABG O2 Capacity (16-24) mL/dL Nacho Test A-a O2 Difference mm/Hg Hgb O2 Saturation (95.0-98.0) % Vent Mode Mechanical Rate FiO2 % Inspiratory BiPAP Expiratory BiPAP Sodium 143 (132-148) mmol/l Potassium 6.4 H* (3.6-5.0) MMOL/L Chloride 103 (98-107) mmol/L Carbon Dioxide 22 (22-30) mmol/L Anion Gap 24 H (10-20) BUN 83 H (7-17) mg/dl Creatinine 5.1 H (0.7-1.2) mg/dl Est GFR ( Amer) 10 Est GFR (Non-Af Amer) 8 Random Glucose 119 H (65-105) mg/dL Calcium 10.1 (8.4-10.2) mg/dL Total Bilirubin 0.7 (0.2-1.3) mg/dl AST 38 H D (14-36) U/L ALT 28 (9-52) U/L Alkaline Phosphatase 99 (38-126) U/L Troponin I 0.0260 (0.00-0.120) ng/mL Total Protein 8.1 (6.3-8.2) G/DL Albumin 4.8 (3.5-5.0) g/dL Globulin 3.3 (2.2-3.9) gm/dL Albumin/Globulin Ratio 1.5 (1.0-2.1) Influenza Typ A,B (EIA) (NEGATIVE) Laboratory Results - last 24 hr 09/13/17 09/13/17 09/13/17 04:24 04:24 04:24 WBC 7.8 RBC 3.96 Hgb 12.1 Hct 36.3 MCV 91.6 MCH 30.6 MCHC 33.4 RDW 13.0 Plt Count 145 MPV 10.9 Neut % (Auto) 48.6 L Lymph % (Auto) 34.5 [place] % (Auto) 11.8 H Eos % (Auto) 4.2 H Baso % (Auto) 0.9 Neut # (Auto) 3.8 Lymph # (Auto) 2.7 [place] # (Auto) 0.9 H Eos # (Auto) 0.3 Baso # (Auto) 0.1 PT 9.8 INR 0.9 APTT 28.3 pCO2 pO2 HCO3 ABG pH ABG Total CO2 ABG O2 Saturation ABG O2 Content ABG Base Excess ABG Hemoglobin ABG Carboxyhemoglobin POC ABG HHb (Measured) ABG Methemoglobin ABG O2 Capacity Nacho Test A-a O2 Difference Hgb O2 Saturation Vent Mode Mechanical Rate FiO2 Inspiratory BiPAP Expiratory BiPAP Sodium 143 Potassium 6.4 H* Chloride 103 Carbon Dioxide 22 Anion Gap 24 H BUN 83 H Creatinine 5.1 H Est GFR ( Amer) 10 Est GFR (Non-Af Amer) 8 Random Glucose 119 H Calcium 10.1 Total Bilirubin 0.7 AST 38 H D ALT 28 Alkaline Phosphatase 99 Troponin I 0.0260 Total Protein 8.1 Albumin 4.8 Globulin 3.3 Albumin/Globulin Ratio 1.5 Influenza Typ A,B (EIA) 09/13/17 09/13/17 06:24 06:45 WBC RBC Hgb Hct MCV MCH MCHC RDW Plt Count MPV Neut % (Auto) Lymph % (Auto) [place] % (Auto) Eos % (Auto) Baso % (Auto) Neut # (Auto) Lymph # (Auto) [place] # (Auto) Eos # (Auto) Baso # (Auto) PT INR APTT pCO2 52 H pO2 308 H HCO3 22.8 ABG pH 7.28 L ABG Total CO2 26.0 ABG O2 Saturation 99.9 H ABG O2 Content 15.0 ABG Base Excess -2.7 L ABG Hemoglobin 10.4 L ABG Carboxyhemoglobin 1.3 POC ABG HHb (Measured) 0.1 ABG Methemoglobin 1.7 ABG O2 Capacity 15.0 L Nacho Test Yes A-a O2 Difference 340.0 Hgb O2 Saturation 96.9 Vent Mode Bipap Mechanical Rate 14 FiO2 100.0 Inspiratory BiPAP 10 Expiratory BiPAP 5 Sodium Potassium Chloride Carbon Dioxide Anion Gap BUN Creatinine Est GFR ( Amer) Est GFR (Non-Af Amer) Random Glucose Calcium Total Bilirubin AST ALT Alkaline Phosphatase Troponin I Total Protein Albumin Globulin Albumin/Globulin Ratio Influenza Typ A,B (EIA) Negative for flu a/b Radiology Interpretations (Free Text): See Above Review of Systems - Review of Systems Systems not reviewed;Unavailable: Uncooperative Critical Care Progress Note - Nutrition Nutrition: Nutrition Category Date Time Status Renal Diet [DIET] Diets 09/13/17 Breakfast Active
--- NOTE | 2017-09-13 11:40 | RAD ---
HISTORY: SOB COMPARISON: Chest radiograph 09/02/2017. FINDINGS: LUNGS: Increased reticular markings appreciate bilaterally without alveolitis. Pulmonary vascular pattern is not appear greatly increase however overall given prominent cardiac silhouette and reticular markings pattern, active CHF is suggested. PLEURA: No significant right pleural effusion identified, no pneumothorax apparent. Trace left pleural effusion noted. OSSEOUS STRUCTURES: No significant abnormalities. VISUALIZED UPPER ABDOMEN: Normal. OTHER FINDINGS: None. IMPRESSION: Active CHF highly suspected. No definite infiltrate. Trace of pleural effusion noted.
[2017-09-13 17:44] LABS: CALCIUM 9.7 mg/dL (8.4-10.2)
[2017-09-14 05:04] LABS: BASO # 0.1 K/uL (0.0-0.2); BASO % 0.7 % (0.0-2.0); EOS # 0.1 K/uL (0.0-0.7); EOS % 2.1 % (0.0-4.0); HEMOGLOBIN 9.6 g/dL (12.0-16.0); LYMPH # 1.3 K/uL (1.0-4.3); LYMPH % 19.8 % (20.0-40.0); MEAN CELL VOLUME 90.1 fl (81.0-99.0); MEAN CORPUSCULAR HEMOGLOBIN 30.4 pg (27.0-31.0); MEAN CORPUSCULAR HGB CONC 33.7 g/dL (33.0-37.0); MEAN PLATELET VOLUME 11.3 fl (7.2-11.7); MONO # 0.9 K/uL (0.0-0.8); NEUT # 4.3 K/uL (1.8-7.0); NEUT % 64.4 % (50.0-75.0); NRBC % 0.1 % (0.0-0.0); RBC 3.15 Mil/uL (3.80-5.20); RED CELL DISTRIBUTION WIDTH 12.7 % (11.5-14.5); WHITE BLOOD COUNT 6.8 K/uL (4.8-10.8)
[2017-09-14 05:41] LABS: CALCIUM 9.7 mg/dL (8.4-10.2)
--- NOTE | 2017-09-14 08:43 | CP.PCM.PN ---
Subjective - Date & Time of Evaluation Date of Evaluation: 09/14/17 Time of Evaluation: 07:20 - Subjective Subjective: Patient evaluated at bedside with Dr Rosado during rounds. Alert, mental status markedly improved, no events overnight. Had HD Yesterday but will undergo again today because had to be stopped before the end yesterday. As per nurse patient became very restless during HD. No new complains. Objective - Vital Signs/Intake and Output Vital Signs (last 24 hours): Temp Pulse Resp BP Pulse Ox 98.2 F 83 21 160/92 H 97 09/14/17 08:00 09/14/17 08:00 09/14/17 08:00 09/14/17 08:00 09/14/17 08:00 Intake and Output: 09/14/17 09/14/17 06:59 18:59 Intake Total 50 Output Total 350 Balance -300 - Medications Medications: Current Medications Acetaminophen (Tylenol 325mg Tab) 650 mg PO Q6 PRN PRN Reason: Headache Last Admin: 09/14/17 06:32 Dose: 650 mg Amlodipine Besylate (Norvasc) 10 mg PO DAILY [facility] Last Admin: 09/13/17 12:13 Dose: 10 mg Atorvastatin Calcium (Lipitor) 20 mg PO DAILY [facility] Last Admin: 09/14/17 08:27 Dose: 20 mg Calcium Acetate (Phoslo) 1,334 mg PO TID [facility] Last Admin: 09/14/17 08:28 Dose: 1,334 mg Docusate Sodium (Colace Liquid) 100 mg NG BID PRN PRN Reason: Constipation Haloperidol Lactate (Haldol) 5 mg IVP Q6 PRN PRN Reason: Agitation Last Admin: 09/13/17 10:39 Dose: 5 mg Heparin Sodium (Porcine) (Heparin) 5,000 units SC Q12 [facility] PRN Reason: Protocol Last Admin: 09/14/17 08:26 Dose: 5,000 units Hydralazine HCl (Apresoline) 50 mg PO BID [facility] Last Admin: 09/13/17 16:37 Dose: 50 mg Labetalol HCl (Trandate) 100 mg PO BID [facility] Last Admin: 09/13/17 16:40 Dose: 100 mg Lisinopril (Zestril) 5 mg PO DAILY [facility] Last Admin: 09/13/17 12:17 Dose: 5 mg - Labs Labs: 09/14/17 04:25 09/14/17 04:25 PT 9.8 Seconds (9.8-13.1) 09/13/17 04:24 INR 0.9 (0.9-1.2) 09/13/17 04:24 APTT 28.3 Seconds (25.6-37.1) 09/13/17 04:24 - Constitutional Appears: Non-toxic, Chronically Ill - Eye Exam Eye Exam: EOMI, PERRL - ENT Exam ENT Exam: Mucous Membranes Moist - Respiratory Exam Respiratory Exam: Clear to Ausculation Bilateral, NORMAL BREATHING PATTERN. absent: Decreased Breath Sounds - Cardiovascular Exam Cardiovascular Exam: REGULAR RHYTHM, +S1, +S2. absent: Gallop - GI/Abdominal Exam GI & Abdominal Exam: Soft, Normal Bowel Sounds. absent: Tenderness, Rebound - Extremities Exam Extremities Exam: absent: Calf Tenderness, Pedal Edema - Neurological Exam Neurological Exam: Alert, Awake, Oriented x3 - Psychiatric Exam Psychiatric exam: Normal Affect, Normal Mood - Skin Skin Exam: Warm Assessment and Plan - Assessment and Plan (Free Text) Assessment: Acute on CKD Improved For repeat HD today Mental status markedly improved Nephro consult appreciated C/W Current treatment plan Can give Xanax before HD pRN for agitations Hyperkalemia resolved Resp insuficiency Resolved
[2017-09-14] MEDS ORDERED: Epoetin Alfa 4000 UNIT/ML Inj IV ONE (10:51)
--- NOTE | 2017-09-14 10:59 | CP.PCM.PN ---
Subjective - Date & Time of Evaluation Date of Evaluation: 09/14/17 Time of Evaluation: 10:54 - Subjective Subjective: Patient sitting up in bed Agitated and nervous because hemodialysis on the way. Xanax ordered before hemodialysis No chest pain feeling much better and was less shortness of breath Objective - Vital Signs/Intake and Output Vital Signs (last 24 hours): Temp Pulse Resp BP Pulse Ox 98.2 F 83 21 160/92 H 97 09/14/17 08:00 09/14/17 09:07 09/14/17 08:00 09/14/17 09:07 09/14/17 08:00 Intake and Output: 09/14/17 09/14/17 06:59 18:59 Intake Total 50 Output Total 350 Balance -300 - Medications Medications: Current Medications Acetaminophen (Tylenol 325mg Tab) 650 mg PO Q6 PRN PRN Reason: Headache Last Admin: 09/14/17 06:32 Dose: 650 mg Alprazolam (Xanax) 0.25 mg PO PRN PRN PRN Reason: Anxiety Stop: 09/21/17 09:10 Alprazolam (Xanax) 1 mg PO [facility] Amlodipine Besylate (Norvasc) 10 mg PO DAILY [facility] Last Admin: 09/13/17 12:13 Dose: 10 mg Atorvastatin Calcium (Lipitor) 20 mg PO DAILY [facility] Last Admin: 09/14/17 08:27 Dose: 20 mg Calcium Acetate (Phoslo) 1,334 mg PO TID [facility] Last Admin: 09/14/17 08:28 Dose: 1,334 mg Docusate Sodium (Colace Liquid) 100 mg NG BID PRN PRN Reason: Constipation Epoetin Seth (Procrit) 4,000 unit IV MWF [facility] Stop: 09/14/17 10:52 Haloperidol Lactate (Haldol) 5 mg IVP Q6 PRN PRN Reason: Agitation Last Admin: 09/13/17 10:39 Dose: 5 mg Heparin Sodium (Porcine) (Heparin) 5,000 units SC Q12 [facility] PRN Reason: Protocol Last Admin: 09/14/17 08:26 Dose: 5,000 units Hydralazine HCl (Apresoline) 50 mg PO BID [facility] Last Admin: 09/14/17 09:07 Dose: Not Given Labetalol HCl (Trandate) 100 mg PO BID [facility] Last Admin: 09/14/17 09:10 Dose: Not Given Lisinopril (Zestril) 5 mg PO DAILY [facility] Last Admin: 09/13/17 12:17 Dose: 5 mg - Labs Labs: 09/14/17 04:25 09/14/17 04:25 PT 9.8 Seconds (9.8-13.1) 09/13/17 04:24 INR 0.9 (0.9-1.2) 09/13/17 04:24 APTT 28.3 Seconds (25.6-37.1) 09/13/17 04:24 - Constitutional Appears: No Acute Distress - ENT Exam ENT Exam: Mucous Membranes Moist - Neck Exam Neck Exam: absent: Lymphadenopathy - Respiratory Exam Respiratory Exam: Rhonchi. absent: Chest Wall Tenderness - Cardiovascular Exam Cardiovascular Exam: REGULAR RHYTHM. absent: Gallop, JVD, Rubs - GI/Abdominal Exam GI & Abdominal Exam: Soft, Normal Bowel Sounds - Extremities Exam Extremities Exam: absent: Calf Tenderness - Back Exam Back Exam: absent: CVA tenderness (L), CVA tenderness (R) - Neurological Exam Neurological Exam: Altered - Psychiatric Exam Psychiatric exam: Anxious - Skin Skin Exam: absent: Cyanosis Assessment and Plan (1) CHF (congestive heart failure) Status: Acute (2) ESRD (end stage renal disease) Assessment & Plan: #1End stage renal disease Patient did not complete hemodialysis yesterday because she became severely agitated despite Haldol was given intravenously. We will give Xanax today half an hour before dialysis. #2 congestive heart failure with volume overload has been improved after partial dialysis yesterday. #3 hypertension continue on antihypertensive medication and to monitor will see what happens after dialysis. #4 Alzheimer disease patient not cooperating with the dialysis. #5 phosphorus and PTH pending. #6 anemia EPO on dialysis Status: Acute (3) Hyperkalemia Status: Acute
--- NOTE | 2017-09-14 18:12 | CARD ---
APPROVED REPORT EKG Measurement Heart [id number] <Conclusion> Normal sinus rhythm Possible Left atrial enlargement Left ventricular hypertrophy Nonspecific ST and T wave abnormality Abnormal ECG
--- NOTE | 2017-09-15 15:49 | CP.PCM.PN ---
Subjective - Date & Time of Evaluation Date of Evaluation: 09/15/17 Time of Evaluation: 15:48 - Subjective Subjective: S: seen and examined no acute events o: pe: vs as below gen: nad sclera: anicteric op: clear neck: supple cv: +s1+s2 lungs: cta b/l abd: soft ext: no edema neuro: a+ox3 psych: nml affect skin: no rash imp: esrd / hyperkalemia/ hypertension/ anemia plan: Remains in denial about need for HD if still here hd on sunday k improved bp stable monitor h and h Objective - Vital Signs/Intake and Output Vital Signs (last 24 hours): Temp Pulse Resp BP Pulse Ox 98.5 F 80 20 147/64 98 09/15/17 08:06 09/15/17 09:22 09/15/17 08:06 09/15/17 09:22 09/15/17 08:06 - Medications Medications: Current Medications Acetaminophen (Tylenol 325mg Tab) 650 mg PO Q6 PRN PRN Reason: Headache Last Admin: 09/14/17 12:26 Dose: 650 mg Alprazolam (Xanax) 0.25 mg PO PRN PRN PRN Reason: Anxiety Stop: 09/21/17 09:10 Alprazolam (Xanax) 1 mg PO [facility]WF [facility] Last Admin: 09/14/17 14:22 Dose: 1 mg Amlodipine Besylate (Norvasc) 10 mg PO DAILY [facility] Last Admin: 09/15/17 09:22 Dose: 10 mg Atorvastatin Calcium (Lipitor) 20 mg PO DAILY [facility] Last Admin: 09/15/17 09:22 Dose: 20 mg Calcium Acetate (Phoslo) 1,334 mg PO TID [facility] Last Admin: 09/15/17 13:44 Dose: 1,334 mg Docusate Sodium (Colace Liquid) 100 mg NG BID PRN PRN Reason: Constipation Haloperidol Lactate (Haldol) 5 mg IVP Q6 PRN PRN Reason: Agitation Last Admin: 09/13/17 10:39 Dose: 5 mg Heparin Sodium (Porcine) (Heparin) 5,000 units SC Q12 [facility] PRN Reason: Protocol Last Admin: 09/15/17 09:21 Dose: 5,000 units Hydralazine HCl (Apresoline) 50 mg PO BID [facility] Last Admin: 09/15/17 09:21 Dose: 50 mg Labetalol HCl (Trandate) 100 mg PO BID [facility] Last Admin: 09/15/17 09:22 Dose: 100 mg Lisinopril (Zestril) 5 mg PO DAILY [facility] Last Admin: 09/15/17 09:22 Dose: 5 mg - Labs Labs: 09/14/17 04:25 09/14/17 04:25 PT 9.8 Seconds (9.8-13.1) 09/13/17 04:24 INR 0.9 (0.9-1.2) 09/13/17 04:24 APTT 28.3 Seconds (25.6-37.1) 09/13/17 04:24
[2017-09-16 06:57] LABS: HEMOGLOBIN 9.8 g/dL (12.0-16.0); MEAN CELL VOLUME 89.9 fl (81.0-99.0); MEAN CORPUSCULAR HEMOGLOBIN 30.4 pg (27.0-31.0); MEAN CORPUSCULAR HGB CONC 33.9 g/dL (33.0-37.0); RBC 3.23 Mil/uL (3.80-5.20); RED CELL DISTRIBUTION WIDTH 12.7 % (11.5-14.5); WHITE BLOOD COUNT 5.3 K/uL (4.8-10.8)
[2017-09-16 07:20] LABS: ALB/GLOB RATIO 1.3 (1.0-2.1); ALBUMIN 3.6 g/dL (3.5-5.0); CALCIUM 9.1 mg/dL (8.4-10.2)
--- NOTE | 2017-09-16 08:03 | PN ---
DATE: 09/16/2017 SUBJECTIVE: The patient is seen and examined. Interim events noted. Consults noted and appreciated. The patient remains in regular medical floor. Feels better. Denies any chest pain or shortness of breath, but was not able to sleep yesterday and also right leg more sensitive. PHYSICAL EXAMINATION: GENERAL: The patient is in no acute distress. VITAL SIGNS: Stable. HEART: S1 and S2, normal and regular. LUNGS: Good bilateral air exchange. ABDOMEN: Soft and nontender. EXTREMITIES: The patient still has persistent ecchymosis, but does not seem to be any complicated, postop changes. No edema. No calf swelling. No tenderness. No acute ischemia. WATERSHED ENGINEER: Essentially unchanged. DIAGNOSTIC DATA: Available diagnostic data reviewed. PLAN: Overall, the patient's general medical condition is stable. Plan as ordered. Darnell Rosado MD
--- NOTE | 2017-09-16 08:09 | PN ---
DATE: 09/16/2017 SUBJECTIVE: The patient is seen and examined. Interim events noted. Consults noted and appreciated. Nephrology followup and interventions noted and appreciated. The patient remains in regular medical floor. Remains . No chest pain. No shortness of breath. PHYSICAL EXAMINATION: GENERAL: The patient is in no acute distress. VITAL SIGNS: Stable. HEART: S1 and S2, normal and regular. LUNGS: Good bilateral air exchange. ABDOMEN: Soft and nontender. EXTREMITIES: No edema. No calf swelling. No tenderness. No acute ischemia. PHOSPHATIC FERTILIZER SUPERVISOR: Essentially unchanged. DIAGNOSTIC DATA: Available diagnostic data reviewed. PLAN: Overall, the patient's general medical condition is clinically stable and improved. Plan as ordered. Darnell Rosado MD
[2017-09-17 07:14] LABS: HEMOGLOBIN 9.7 g/dL (12.0-16.0); MEAN CELL VOLUME 88.9 fl (81.0-99.0); MEAN CORPUSCULAR HEMOGLOBIN 30.8 pg (27.0-31.0); MEAN CORPUSCULAR HGB CONC 34.7 g/dL (33.0-37.0); RBC 3.14 Mil/uL (3.80-5.20); RED CELL DISTRIBUTION WIDTH 12.5 % (11.5-14.5); WHITE BLOOD COUNT 5.7 K/uL (4.8-10.8)
[2017-09-17 07:20] LABS: ALB/GLOB RATIO 1.5 (1.0-2.1); ALBUMIN 3.8 g/dL (3.5-5.0); CALCIUM 9.1 mg/dL (8.4-10.2)
--- NOTE | 2017-09-17 08:30 | PN ---
DATE: 09/15/2017 SUBJECTIVE: The patient is seen and examined. Interim events noted. The patient is now on regular floor. The patient is awake and responsive. Denies any specific complaints. Still has need for dialysis. No chest pain, no shortness of breath. PHYSICAL EXAMINATION: GENERAL: The patient is in no acute distress. VITAL SIGNS: Stable. HEART: S1 and S2, normal and regular. LUNGS: Good bilateral air exchange. ABDOMEN: Soft and nontender. EXTREMITIES: No edema. No calf swelling. No tenderness. No acute ischemia. BOOMBOAT OPERATOR: Essentially unchanged. DIAGNOSTIC DATA: Available diagnostic data reviewed. PLAN: Overall, the patient's general medical condition is stable. Plan as ordered. Darnell Rosado MD
--- NOTE | 2017-09-17 11:17 | CP.PCM.PN ---
Subjective - Date & Time of Evaluation Date of Evaluation: 09/17/17 Time of Evaluation: 11:15 - Subjective Subjective: Position in bed. However she is confused partially No chest pain no shortness of breath Nausea no vomiting Objective - Vital Signs/Intake and Output Vital Signs (last 24 hours): Temp Pulse Resp BP Pulse Ox 98.7 F 74 20 135/65 97 09/17/17 07:57 09/17/17 08:54 09/17/17 07:57 09/17/17 08:54 09/17/17 07:57 - Medications Medications: Current Medications Acetaminophen (Tylenol 325mg Tab) 650 mg PO Q6 PRN PRN Reason: Headache Last Admin: 09/17/17 08:55 Dose: 650 mg Alprazolam (Xanax) 1 mg PO MWF [facility] Last Admin: 09/17/17 08:56 Dose: 1 mg Amlodipine Besylate (Norvasc) 10 mg PO DAILY [facility] Last Admin: 09/17/17 08:54 Dose: Not Given Atorvastatin Calcium (Lipitor) 20 mg PO DAILY [facility] Last Admin: 09/17/17 08:54 Dose: 20 mg Calcium Acetate (Phoslo) 1,334 mg PO TID [facility] Last Admin: 09/17/17 08:55 Dose: 1,334 mg Docusate Sodium (Colace Liquid) 100 mg NG BID PRN PRN Reason: Constipation Haloperidol Lactate (Haldol) 5 mg IVP Q6 PRN PRN Reason: Agitation Last Admin: 09/13/17 10:39 Dose: 5 mg Heparin Sodium (Porcine) (Heparin) 5,000 units SC Q12 [facility] PRN Reason: Protocol Last Admin: 09/17/17 08:53 Dose: 5,000 units Hydralazine HCl (Apresoline) 50 mg PO BID [facility] Last Admin: 09/17/17 08:52 Dose: Not Given Labetalol HCl (Trandate) 100 mg PO BID [facility] Last Admin: 09/17/17 08:55 Dose: Not Given Lisinopril (Zestril) 5 mg PO DAILY [facility] Last Admin: 09/17/17 08:57 Dose: Not Given - Labs Labs: 09/17/17 06:30 09/17/17 06:30 PT 9.8 Seconds (9.8-13.1) 09/13/17 04:24 INR 0.9 (0.9-1.2) 09/13/17 04:24 APTT 28.3 Seconds (25.6-37.1) 09/13/17 04:24 - Constitutional Appears: No Acute Distress - ENT Exam ENT Exam: Mucous Membranes Moist - Respiratory Exam Respiratory Exam: NORMAL BREATHING PATTERN. absent: Chest Wall Tenderness, Rales - Cardiovascular Exam Cardiovascular Exam: REGULAR RHYTHM. absent: Gallop, JVD, Rubs - GI/Abdominal Exam GI & Abdominal Exam: Soft, Normal Bowel Sounds - Extremities Exam Extremities Exam: absent: Calf Tenderness - Back Exam Back Exam: absent: CVA tenderness (L), CVA tenderness (R) - Neurological Exam Neurological Exam: Altered - Psychiatric Exam Psychiatric exam: Normal Mood - Skin Skin Exam: absent: Cyanosis Assessment and Plan (1) CHF (congestive heart failure) Status: Acute (2) ESRD (end stage renal disease) Assessment & Plan: End stage renal disease patient about to receive dialysis shortly as scheduled #2 congestive heart failure with volume overload has been improved after partial dialysis yesterday. #3 hypertension continue on antihypertensive medication and to monitor will see what happens after dialysis. #4 Alzheimer disease patient not cooperating with the dialysis. #5 phosphorus and PTH pending. #6 anemia EPO on dialysis The daughter at the bedside and I discussed with the family for outpatient dialysis Status: Acute (3) Hyperkalemia Status: Acute
[2017-09-18 07:53] VITALS: RESP 20
--- NOTE | 2017-09-18 08:51 | CP.PCM.PN ---
Subjective - Date & Time of Evaluation Date of Evaluation: 09/18/17 Time of Evaluation: 08:48 - Subjective Subjective: Patient in bed no significant changes She had hemodialysis yesterday Vital signs stable with normal blood pressure normal temperature Objective - Vital Signs/Intake and Output Vital Signs (last 24 hours): Temp Pulse Resp BP Pulse Ox 97.8 F 79 20 119/54 L 97 09/18/17 07:52 09/18/17 07:52 09/18/17 07:52 09/18/17 07:52 09/18/17 07:52 - Medications Medications: Current Medications Acetaminophen (Tylenol 325mg Tab) 650 mg PO Q6 PRN PRN Reason: Headache Last Admin: 09/17/17 08:55 Dose: 650 mg Alprazolam (Xanax) 1 mg PO MWF [facility] Last Admin: 09/17/17 08:56 Dose: 1 mg Amlodipine Besylate (Norvasc) 10 mg PO DAILY [facility] Last Admin: 09/17/17 08:54 Dose: Not Given Atorvastatin Calcium (Lipitor) 20 mg PO DAILY [facility] Last Admin: 09/17/17 08:54 Dose: 20 mg Calcium Acetate (Phoslo) 1,334 mg PO TID [facility] Last Admin: 09/17/17 21:28 Dose: 1,334 mg Docusate Sodium (Colace Liquid) 100 mg NG BID PRN PRN Reason: Constipation Haloperidol Lactate (Haldol) 5 mg IVP Q6 PRN PRN Reason: Agitation Last Admin: 09/13/17 10:39 Dose: 5 mg Heparin Sodium (Porcine) (Heparin) 5,000 units SC Q12 [facility] PRN Reason: Protocol Last Admin: 09/17/17 21:27 Dose: 5,000 units Hydralazine HCl (Apresoline) 50 mg PO BID [facility] Last Admin: 09/17/17 21:28 Dose: 50 mg Labetalol HCl (Trandate) 100 mg PO BID [facility] Last Admin: 09/17/17 21:28 Dose: 100 mg Lisinopril (Zestril) 5 mg PO DAILY [facility] Last Admin: 09/17/17 08:57 Dose: Not Given - Labs Labs: 09/17/17 06:30 09/17/17 06:30 PT 9.8 Seconds (9.8-13.1) 03/01/18 04:24 INR 0.9 (0.9-1.2) 09/13/17 04:24 APTT 28.3 Seconds (25.6-37.1) 09/13/17 04:24 - Constitutional Appears: No Acute Distress - ENT Exam ENT Exam: Mucous Membranes Moist - Neck Exam Neck Exam: absent: Lymphadenopathy - Respiratory Exam Respiratory Exam: NORMAL BREATHING PATTERN. absent: Chest Wall Tenderness - Cardiovascular Exam Cardiovascular Exam: absent: JVD, Rubs - GI/Abdominal Exam GI & Abdominal Exam: Soft, Normal Bowel Sounds - Extremities Exam Extremities Exam: absent: Calf Tenderness - Back Exam Back Exam: absent: CVA tenderness (L), CVA tenderness (R) - Neurological Exam Neurological Exam: Alert - Psychiatric Exam Psychiatric exam: Normal Affect - Skin Skin Exam: absent: Cyanosis Assessment and Plan (1) CHF (congestive heart failure) Status: Acute (2) ESRD (end stage renal disease) Assessment & Plan: End stage renal disease patient had dialysis yesterday continue MWF. Slight hyponatremia predialysis most likely corrected post dialysis. Alzheimer disease and the patient to go for outpatient dialysis which she has not been showing up. Hypertension controlled Volume overload. Resolved after dialysis Hyperkalemia resolved after dialysis Status: Acute (3) Hyperkalemia Status: Acute
--- NOTE | 2017-09-18 10:01 | PN ---
DATE: 09/17/2017 SUBJECTIVE: The patient is seen and examined. Interim events noted. ADDENDUM PHYSICAL EXAMINATION: GENERAL: The patient is in no acute distress. VITAL SIGNS: Stable. HEART: S1 and S2, normal and regular. LUNGS: Good bilateral air exchange. ABDOMEN: Soft and nontender. EXTREMITIES: No edema. No calf swelling. No tenderness. No acute ischemia. FILM WAXER: Essentially unchanged. DIAGNOSTIC DATA: Available diagnostic data reviewed. ASSESSMENT AND PLAN: Overall, the patient is hemodynamically and clinically stable, although is refusing dialysis, seems to understand the consequences of pain. Plan as ordered. Case and plan discussed with the patient. Darnell Rosado MD
--- NOTE | 2017-09-18 14:39 | CP.PCM.DIS ---
Provider - Provider Date of Admission: 09/13/17 04:22 Attending physician: Darnell Rosado MD Consults: Nephro 09/13/17 08:03 Social Work Referral Routine Comment: HD patient Physician Instructions: Reason For Exam: HD patient Time Spent in preparation of Discharge (in minutes): 30 Diagnosis - Discharge Diagnosis (1) Respiratory failure Status: Resolved Comment: Likely due to hypoxemia/fluid overload (2) ESRD (end stage renal disease) Status: Chronic Comment: Patient noncompliant with outpatient Dialysis. (3) Hyperkalemia Status: Resolved Comment: Resolved. treated (4) CHF (congestive heart failure) Status: Chronic Comment: Stable. Hospital Course - Lab Results Lab Results: Micro Results 09/13/17 04:29 Blood Blood Culture - Final NO GROWTH AFTER 5 DAYS 09/13/17 04:29 Blood Gram Stain - Final TEST NOT PERFORMED 09/13/17 03:20 Blood Blood Culture - Final NO GROWTH AFTER 5 DAYS 09/13/17 03:20 Blood Gram Stain - Final TEST NOT PERFORMED 09/14/17 01:20 Nose MRSA Culture (Admit) - Final MRSA NOT DETECTED Most Recent Lab Values WBC 5.7 K/uL (4.8-10.8) 09/17/17 06:30 RBC 3.14 Mil/uL (3.80-5.20) L 09/17/17 06:30 Hgb 9.7 g/dL (12.0-16.0) L 09/17/17 06:30 Hct 27.9 % (34.0-47.0) L 09/17/17 06:30 MCV 88.9 fl (81.0-99.0) 09/17/17 06:30 MCH 30.8 pg (27.0-31.0) 09/17/17 06:30 MCHC 34.7 g/dL (33.0-37.0) 09/17/17 06:30 RDW 12.5 % (11.5-14.5) 09/17/17 06:30 Plt Count 115 K/uL (130-400) L 09/17/17 06:30 MPV 11.3 fl (7.2-11.7) 09/14/17 04:25 Neut % (Auto) 64.4 % (50.0-75.0) 09/14/17 04:25 Lymph % (Auto) 19.8 % (20.0-40.0) L 09/14/17 04:25 [place] % (Auto) 13.0 % (0.0-10.0) H 09/14/17 04:25 Eos % (Auto) 2.1 % (0.0-4.0) 09/14/17 04:25 Baso % (Auto) 0.7 % (0.0-2.0) 09/14/17 04:25 Neut # (Auto) 4.3 K/uL (1.8-7.0) 09/14/17 04:25 Lymph # (Auto) 1.3 K/uL (1.0-4.3) 09/14/17 04:25 [place] # (Auto) 0.9 K/uL (0.0-0.8) H 09/14/17 04:25 Eos # (Auto) 0.1 K/uL (0.0-0.7) 09/14/17 04:25 Baso # (Auto) 0.1 K/uL (0.0-0.2) 09/14/17 04:25 PT 9.8 Seconds (9.8-13.1) 09/13/17 04:24 INR 0.9 (0.9-1.2) 09/13/17 04:24 APTT 28.3 Seconds (25.6-37.1) 09/13/17 04:24 pCO2 52 mm/Hg (35-45) H 09/13/17 06:45 pO2 308 mm/Hg (80-100) H 09/13/17 06:45 HCO3 22.8 mmol/L (21-28) 09/13/17 06:45 ABG pH 7.28 (7.35-7.45) L 09/13/17 06:45 ABG Total CO2 26.0 mmol/L (22-28) 09/13/17 06:45 ABG O2 Saturation 99.9 % (95-98) H 09/13/17 06:45 ABG O2 Content 15.0 ML/dL (15-23) 09/13/17 06:45 ABG Base Excess -2.7 mmol/L (-2.0-3.0) L 09/13/17 06:45 ABG Hemoglobin 10.4 g/dL (11.7-17.4) L 09/13/17 06:45 ABG Carboxyhemoglobin 1.3 % (0.5-1.5) 09/13/17 06:45 POC ABG HHb (Measured) 0.1 % (0.0-5.0) 09/13/17 06:45 ABG Methemoglobin 1.7 % (0.0-3.0) 09/13/17 06:45 ABG O2 Capacity 15.0 mL/dL (16-24) L 09/13/17 06:45 Nacho Test Yes 09/13/17 06:45 A-a O2 Difference 340.0 mm/Hg 09/13/17 06:45 Hgb O2 Saturation 96.9 % (95.0-98.0) 09/13/17 06:45 Vent Mode Bipap 09/13/17 06:45 Mechanical Rate 14 09/13/17 06:45 FiO2 100.0 % 09/13/17 06:45 Inspiratory BiPAP 10 09/13/17 06:45 Expiratory BiPAP 5 09/13/17 06:45 Sodium 132 mmol/l (132-148) 09/17/17 06:30 Potassium 4.2 MMOL/L (3.6-5.0) 09/17/17 06:30 Chloride 93 mmol/L (98-107) L 09/17/17 06:30 Carbon Dioxide 26 mmol/L (22-30) 09/17/17 06:30 Anion Gap 17 (10-20) 09/17/17 06:30 BUN 44 mg/dl (7-17) H 09/17/17 06:30 Creatinine 5.1 mg/dl (0.7-1.2) H 09/17/17 06:30 Est GFR ( Amer) 10 09/17/17 06:30 Est GFR (Non-Af Amer) 8 09/17/17 06:30 Random Glucose 97 mg/dL (65-105) 09/17/17 06:30 Calcium 9.1 mg/dL (8.4-10.2) 09/17/17 06:30 Phosphorus 3.5 mg/dl (2.5-4.5) 09/14/17 11:46 Total Bilirubin 0.8 mg/dl (0.2-1.3) 09/17/17 06:30 AST 34 U/L (14-36) 09/17/17 06:30 ALT 30 U/L (9-52) 09/17/17 06:30 Alkaline Phosphatase 62 U/L (38-126) 09/17/17 06:30 Troponin I 0.0260 ng/mL (0.00-0.120) 09/13/17 04:24 Total Protein 6.3 G/DL (6.3-8.2) 09/17/17 06:30 Albumin 3.8 g/dL (3.5-5.0) 09/17/17 06:30 Globulin 2.5 gm/dL (2.2-3.9) 09/17/17 06:30 Albumin/Globulin Ratio 1.5 (1.0-2.1) 09/17/17 06:30 PTH Intact Whole Molec 36 pg/mL (14-64) 09/14/17 11:46 Influenza Typ A,B (EIA) Negative for flu a/b (NEGATIVE) 09/13/17 06:24 - Hospital Course Hospital Course: 77 y/o F with PMhx of ESRD on HD, CHF that presented to ED with AMS found to be noncompliant with HD for at least 2 weeks before admission but probably longer. She had to be admitted to ICU for resp distress, hyperkalemia and JUSTIN. Patient responded well to medical therapy, was evaluated by nephro and underwent HD while in the hosp, slowly improving in general status and blood chemistry(BUN/ creat back to baseline, K=WNL). She was transferred to regular floor were she has remained stable and today after cleared by security consultant and after discussing with patient in detail about the importance of HD once she is DC from hosp, patient agreed to be compliant with HD MWF and is decided to DC her home to f/u with PMD and Nephro Discharge Exam - Head Exam Head Exam: ATRAUMATIC - Eye Exam Eye Exam: EOMI, PERRL - ENT Exam ENT Exam: Mucous Membranes Moist - Respiratory Exam Respiratory Exam: Clear to PA & Lateral, NORMAL BREATHING PATTERN, UNREMARKABLE - Cardiovascular Exam Cardiovascular Exam: REGULAR RHYTHM, +S1, +S2. absent: Gallop - GI/Abdominal Exam GI & Abdominal Exam: Normal Bowel Sounds, Unremarkable - Neurological Exam Neurological exam: Alert, Oriented x3 - Psychiatric Exam Psychiatric exam: Normal Affect, Normal Mood - Skin Skin Exam: Warm Discharge Plan - Follow Up Plan Condition: STABLE Disposition: HOME/ ROUTINE Patient education suggested?: Yes Instructions: Hyperkalemia (DC), Hemodialysis (DC), Dialysis and Diet Additional Instructions: follow up with primary MD Elton Gould and expediter clerk 1 week
[2017-09-18 16:33] VITALS: BP 127/69
[2017-09-18 16:38] VITALS: PULSE 91; TEMP 98.1; O2SAT 100
== END 2017-09-18 18:10 | disposition home or self-care (01) | DRG 682 ==
LOC: H.ER 03:47 → H.ERHOLD 04:22 → H.ICU/CCU 06:30 → H.MEDSURG1 09-14 18:38
PROVIDERS: ADMIT Internal Medicine; ATTEND Internal Medicine
PROC: 5A09457 Assistance with Respiratory Ventilation, 24-96 Consecutive Hours, Continuous Positive Airway Pressure (ICD-10-PCS; principal; 2017-09-13)
PROC: 5A1D70Z Performance of Urinary Filtration, Intermittent, Less than 6 Hours Per Day (ICD-10-PCS; 2017-09-13)
DX: N17.9 Acute kidney failure, unspecified (principal); J96.91 Respiratory failure, unspecified with hypoxia; I13.2 Hypertensive heart and chronic kidney disease with heart failure and with stage 5 chronic kidney disease, or end stage renal disease; E87.2 Acidosis; N18.6 End stage renal disease; E87.5 Hyperkalemia; F02.80 Dementia in other diseases classified elsewhere, unspecified severity, without behavioral disturbance, psychotic disturbance, mood disturbance, and anxiety; G30.9 Alzheimer's disease, unspecified; E78.5 Hyperlipidemia, unspecified; Z91.15 Patient's noncompliance with renal dialysis; Z99.2 Dependence on renal dialysis; I50.9 Heart failure, unspecified; E87.70 Fluid overload, unspecified; D64.9 Anemia, unspecified; S09.90XA Unspecified injury of head, initial encounter; W19.XXXA Unspecified fall, initial encounter; G43.909 Migraine, unspecified, not intractable, without status migrainosus

== ENCOUNTER 2017-09-29 11:02 | Observation (INO) | payer MEDICARE ==
[2017-09-29 11:13] VITALS: BMI 19.5
--- NOTE | 2017-09-29 12:06 | ED PDOC ---
HPI: SOB/CHF/COPD Time Seen by Provider: 09/29/17 11:20 Chief Complaint (Nursing): Shortness Of Breath Chief Complaint (Provider): Shortness of breath History Per: Patient History/Exam Limitations: no limitations Onset/Duration Of Symptoms: Days Current Symptoms Are (Timing): Still Present Additional Complaint(s): 77yo female, with history of hypertension, Alzheimer's, end stage renal disease , presents to the ED for evaluation of shortness of breath for the past 2 days. Per patient's family, the patient has a shunt in her left arm but she refuses to go to dialysis; her last session was over 2 weeks ago. Patient was hospitalized in this facility 2 weeks ago due to elevated potassium. Currently, she denies any chest pain, fever, abdominal pain, and offers no other medical complaints. PCP: Dr. Genaro Martínez Past Medical History Reviewed: Historical Data, Nursing Documentation, Vital Signs Vital Signs: Last Vital Signs Temp 97.7 F 09/29/17 11:12 Pulse 84 09/29/17 14:00 Resp 20 09/29/17 11:18 BP 166/75 H 09/29/17 11:12 Pulse Ox 98 09/29/17 14:00 - Medical History PMH: Alzheimer's Disease, Anemia, Anxiety, CHF, Dementia, Diverticulitis, HTN, Hypercholesterolemia, Kidney Stones, Migraine, End Stage Renal Disease, Chronic Kidney Disease - Surgical History Surgical History: Appendectomy, Tonsillectomy - Family History Family History: States: Unknown Family Hx, Hypertension - Immunization History Hx Tetanus Toxoid Vaccination: No Hx Influenza Vaccination: No Hx Pneumococcal Vaccination: No - Home Medications Home Medications: Ambulatory Orders Medication Instructions Recorded Atorvastatin [Lipitor] 20 mg PO DAILY 08/16/16 Calcium Acetate [Phoslo] 2 cap PO TID 08/16/16 Labetalol [Trandate] 100 mg PO BID 08/16/16 Lisinopril [Zestril] 5 mg PO DAILY 08/16/16 amLODIPine [Norvasc] 10 mg PO DAILY 08/16/16 hydrALAZINE [Apresoline] 50 mg PO BID 08/16/16 B Complex W-C No.20/Folic Acid 1 cap PO DAILY 11/04/16 [Renal Caps Softgel] Docusate [Colace LIQUID] 100 mg NG BID PRN udc 09/03/17 Epoetin Seth [Procrit] 4,000 unit IV TTS ml 09/03/17 Acetaminophen [Tylenol 325mg tab] 650 mg PO Q6 PRN tab 09/17/17 - Allergies Allergies/Adverse Reactions: Allergies Allergy/AdvReac Type Severity Reaction Status Date / Time No Known Allergies Allergy Verified 09/13/17 03:59 Review of Systems ROS Statement: Except As Marked, All Systems Reviewed And Found Negative Constitutional: Negative for: Fever, Chills Cardiovascular: Negative for: Chest Pain Respiratory: Positive for: Shortness of Breath Gastrointestinal: Negative for: Abdominal Pain Physical Exam - Reviewed Nursing Documentation Reviewed: Yes Vital Signs Reviewed: Yes - Physical Exam Appears: Positive for: Non-toxic, No Acute Distress Head Exam: Positive for: ATRAUMATIC, NORMAL INSPECTION, NORMOCEPHALIC Skin: Positive for: Normal Color Eye Exam: Positive for: Normal appearance Neck: Positive for: Supple Cardiovascular/Chest: Positive for: Regular Rate, Rhythm Respiratory: Positive for: Normal Breath Sounds. Negative for: Wheezing Gastrointestinal/Abdominal: Positive for: Normal Exam, Soft. Negative for: Tenderness Extremity: Positive for: Normal ROM. Negative for: Pedal Edema Neurologic/Psych: Positive for: Alert, Oriented - Laboratory Results Result Diagrams: 09/29/17 12:15 09/29/17 12:15 - ECG ECG: Positive for: Interpreted By Me, Viewed By Me ECG Rhythm: Positive for: Normal QRS, Sinus Rhythm. Negative for: ST/T Changes Interpretation Of ECG: LVH Rate: 84 O2 Sat by Pulse Oximetry: 98 (RA) Pulse Ox Interpretation: Normal Medical Decision Making Medical Decision Making: Impression: Dyspnea Differential: CHF, volume overload due to acute on chronic kidney failure, ACS Plan: -- Labs --Chest x-ray -- EKG Time: [address] Arcos, hospitalist staff occupational therapist and patient to be admitted for hyperkalemia, volume overload, and end stage renal disease. Time: 1409 Dr. Blanton who is covering Dr. Benedict aware of case and she will schedule for dialysis. Scribe Attestation: Documented by Olga East acting as a scribe for Tiny Alva MD. Provider Attestation: All medical record entries made by the Scribe were at my direction and personally dictated by me. I have reviewed the chart and agree that the record accurately reflects my personal performance of the history, physical exam, medical decision making, and the department course for this patient. I have also personally directed, reviewed, and agree with the discharge instructions and disposition. Disposition - Disposition
[2017-09-29 12:31] LABS: BASO # 0.1 K/uL (0.0-0.2); BASO % 1.1 % (0.0-2.0); EOS # 0.3 K/uL (0.0-0.7); EOS % 5.1 % (0.0-4.0); HEMOGLOBIN 9.8 g/dL (12.0-16.0); LYMPH # 0.9 K/uL (1.0-4.3); LYMPH % 17.7 % (20.0-40.0); MEAN CORPUSCULAR HEMOGLOBIN 30.8 pg (27.0-31.0); MEAN CORPUSCULAR HGB CONC 33.5 g/dL (33.0-37.0); MEAN PLATELET VOLUME 10.3 fl (7.2-11.7); MONO # 0.5 K/uL (0.0-0.8); MONO % 9.9 % (0.0-10.0); NEUT # 3.5 K/uL (1.8-7.0); NEUT % 66.2 % (50.0-75.0); NRBC % 0.1 % (0.0-0.0); RBC 3.18 Mil/uL (3.80-5.20); RED CELL DISTRIBUTION WIDTH 13.2 % (11.5-14.5); WHITE BLOOD COUNT 5.3 K/uL (4.8-10.8)
--- NOTE | 2017-09-29 12:38 | RAD ---
PROCEDURE: CHEST RADIOGRAPH, 1 VIEW HISTORY: dyspnea COMPARISON: 09/13/2017 FINDINGS: LUNGS: There is mild interval improvement in aeration with noted upper lobe infiltrate seen. There is a mild amount of subtle alveolar infiltrate or atelectasis seen at the right costophrenic angle region. PLEURA: Minimal blunting at the right costophrenic angle region may suggest a minor amount of pleural fluid. No definite left effusion is seen. No pneumothorax is seen. CARDIOVASCULAR: Heart is enlarged. There is decreased vascular congestion from prior study. Aorta is stable. OSSEOUS STRUCTURES: No significant abnormalities. VISUALIZED UPPER ABDOMEN: Normal. OTHER FINDINGS: None. IMPRESSION: Mild interval improvement in aeration from prior study. There is a small area of infiltrate, atelectasis, and/or small pleural fluid seen at the right costophrenic angle.
[2017-09-29 12:58] LABS: BLOOD UREA NITROGEN 78 mg/dl (7-17); CALCIUM 9.5 mg/dL (8.4-10.2); GFR AFRICAN-AMERICAN 11; GFR NON-AFRICAN AMERICAN 9
[2017-09-29 13:04] LABS: B-TYPE NATRIURETIC PEPTIDE 23300 pg/ml (0-900)
[2017-09-29] MEDS ORDERED: Insulin Regular 100 units/ml IV STA (13:49)
[2017-09-29] MEDS ORDERED: Sod Polystyrene Sulf 15 gm/60 ml Susp PO ONE (13:50)
[2017-09-29] MEDS ORDERED: Dextrose 50% SYRINGE Inj (50 ml) IVP ONE (13:50)
[2017-09-29] MEDS ORDERED: levoFLOXacin 500 mg in D5W 500 MG/100 ML BAG IVPB STA (13:56)
[2017-09-29] MEDS ORDERED: Albuterol 0.083% Inhal Sol (2.5 mg/3 mL) UD INH STA (13:59)
[2017-09-29] MEDS ORDERED: Insulin Regular 100 units/ml ONE (14:13)
[2017-09-29] MEDS ORDERED: Dextrose 50% SYRINGE Inj (50 ml) ONE (14:14)
[2017-09-29] MEDS ORDERED: Sod Polystyrene Sulf 15 gm/60 ml Susp ONE (14:14)
[2017-09-29] MEDS ORDERED: levoFLOXacin 500 mg in D5W 500 MG/100 ML BAG IVPB ONE (14:30)
[2017-09-29] MEDS ORDERED: Albuterol 0.083% Inhal Sol (2.5 mg/3 mL) UD ONE (14:30)
--- NOTE | 2017-09-29 14:37 | CP.PCM.HP ---
History of Present Illness - History of Present Illness History of Present Illness: CC: MISSED DIALYSIS HPI: This is a 77-year-old female with past medical history significant for Alzheimer's dementia, end-stage renal disease with hemodialysis Sunday, hypertension brought to the ED after missing HD for the past two weeks. Patient often refusesdialysis due to her Alzheimer's dementia. Patient prepleater is Dr. Benedict, Dr. Blanton will be coordinating dialysis today. In ER patient hyperkalemic at 5.8. She is hemodynamically stable, and has no other complaints at this time. ROS: per HPI, 12 systems reviewed and negative PMD: Genaro Conde MD PMH: Alzheimer's dementia, ESRD with HD MWF, hypertension PSH: Appendectomy, tonsillectomy FH: Denies SH: denies tobacco, ETOH, IVDU Meds: as below Allergies: NKDA Present on Admission - Present on Admission Any Indicators Present on Admission: No Past Patient History - Infectious Disease Hx of Infectious Diseases: None - Tetanus Immunizations Tetanus Immunization: Unknown - Past Medical History & Family History Past Medical History?: Yes - Past Social History Smoking Status: Never Smoked - CARDIAC Hx Congestive Heart Failure: Yes Hx Hypercholesterolemia: Yes Hx Hypertension: Yes - PULMONARY Hx Respiratory Disorders: No - NEUROLOGICAL Hx Alzheimer's Disease: Yes Hx Dementia: Yes Hx Migraine: Yes - HEENT Hx HEENT Problems: No - RENAL Hx Chronic Kidney Disease: Yes Hx Kidney Stones: Yes - ENDOCRINE/METABOLIC Hx Endocrine Disorders: No - HEMATOLOGICAL/ONCOLOGICAL Hx Anemia: Yes - INTEGUMENTARY Hx Dermatological Problems: No - MUSCULOSKELETAL/RHEUMATOLOGICAL Hx Musculoskeletal Disorders: No Hx Falls: No - GASTROINTESTINAL Hx Diverticulitis: Yes - GENITOURINARY/GYNECOLOGICAL Hx Genitourinary Disorders: Yes - PSYCHIATRIC Hx Anxiety: Yes - SURGICAL HISTORY Hx Appendectomy: Yes Hx Tonsillectomy: Yes - ANESTHESIA Hx Anesthesia: Yes Hx Anesthesia Reactions: No Hx Malignant Hyperthermia: No Meds Allergies/Adverse Reactions: Allergies Allergy/AdvReac Type Severity Reaction Status Date / Time No Known Allergies Allergy Verified 09/13/17 03:59 Physical Exam - Constitutional Additional comments: Vitals Reviewed GEN: WDWN, ALERT, COOPERATIVE HEENT: NCAT, PERRL, EOMI HEART: RRR, +S1S2, NO MRG LUNG: CTAB, NO WRR ABD: SOFT, NT, ND, NO HSM, NO MASSES EXT: NORMAL PEDAL PULSES, GOOD CAPILLARY REFILL NEURO: AAOX3, STRENGTH EQUAL BILATERAL UPPER AND LOWER EXTREMITIES SKIN: WARM, DRY PSYCH: NORMAL MOOD, NORMAL AFFECT Results - Vital Signs Recent Vital Signs: Last Vital Signs Temp 97.7 F 09/29/17 11:12 Pulse 91 H 09/29/17 14:27 Resp 22 09/29/17 14:27 BP 155/62 H 09/29/17 14:27 Pulse Ox 100 09/29/17 14:27 - Labs Result Diagrams: 09/29/17 12:15 09/29/17 12:15 Labs: Laboratory Results - last 24 hr 09/29/17 09/29/17 12:15 12:15 WBC 5.3 RBC 3.18 L Hgb 9.8 L Hct 29.3 L MCV 92.0 D MCH 30.8 MCHC 33.5 RDW 13.2 Plt Count 134 MPV 10.3 Neut % (Auto) 66.2 Lymph % (Auto) 17.7 L [place] % (Auto) 9.9 Eos % (Auto) 5.1 H Baso % (Auto) 1.1 Neut # (Auto) 3.5 Lymph # (Auto) 0.9 L [place] # (Auto) 0.5 Eos # (Auto) 0.3 Baso # (Auto) 0.1 Sodium 140 Potassium 5.8 H Chloride 104 Carbon Dioxide 16 L Anion Gap 26 H BUN 78 H Creatinine 4.8 H Est GFR ( Amer) 11 Est GFR (Non-Af Amer) 9 Random Glucose 103 Calcium 9.5 Troponin I < 0.0120 NT-Pro-B Natriuret Pep 07520 H Assessment & Plan - Assessment and Plan (Free Text) Plan: This is a 77-year-old female with past medical history significant for Alzheimer 's dementia, end-stage renal disease with hemodialysis Sunday, hypertension brought to the ED after missing HD for the past two weeks. Patient often refuses dialysis due to her Alzheimer's dementia. Patient prepleater is Dr. Benedict, Dr. Blanton will be coordinating dialysis today. In ER patient hyperkalemic at 5.8. She is hemodynamically stable, and has no other complaints at this time. ESRD on HD Hyperkalemia HTN - Dr. Blanton Nephrology for HD, fluid overload and hyperkalemia - continue Norvasc, Lipitor, Phoslo, Hydralazine, Labetalol, Lisinopril as per home medications - monitor BP - walt d/c after HD
--- NOTE | 2017-09-29 14:49 | CARD ---
APPROVED REPORT EKG Measurement Heart [id number] <Conclusion> Normal sinus rhythm Possible Left atrial enlargement Left ventricular hypertrophy Abnormal ECG
[2017-09-30 06:15] LABS: HEMOGLOBIN 9.4 g/dL (12.0-16.0); MEAN CELL VOLUME 90.6 fl (81.0-99.0); MEAN CORPUSCULAR HEMOGLOBIN 30.7 pg (27.0-31.0); MEAN CORPUSCULAR HGB CONC 33.9 g/dL (33.0-37.0); RBC 3.05 Mil/uL (3.80-5.20); RED CELL DISTRIBUTION WIDTH 13.1 % (11.5-14.5); WHITE BLOOD COUNT 5.7 K/uL (4.8-10.8)
[2017-09-30 06:28] LABS: CALCIUM 9.4 mg/dL (8.4-10.2)
[2017-09-30] MEDS ORDERED: Lidocaine/Prilocaine CREAM 5GM TP ONE (08:26)
[2017-09-30] MEDS ORDERED: Multivitamin Vitamin B Complex (Nephro-Vite) Tab PO SCH (09:00)
--- NOTE | 2017-09-30 10:42 | CP.PCM.CON ---
History of Present Illness - History of Present Illness History of Present Illness: SURGERY CONSULT NOTE FOR DR. AKHTAR 77M present to ER after missing two weeks of dialysis. Patient brought to the Hospital for dialysis. Dialysis nurse had some difficulty accessing the fistula. She states she was not able to receive good volume, and also patient the line out. Patient not has bruising in the region. Core Winder suggest not trying to access again and placing a temporary catheter. PMH: Alzheimer's dementia, ESRD with HD MWF, hypertension PSH: Appendectomy, tonsillectomy FH: Denies SH: denies tobacco, ETOH, IVDU Allergies: NKDA Past Patient History - Infectious Disease Hx of Infectious Diseases: None - Tetanus Immunizations Tetanus Immunization: Unknown - Past Medical History & Family History Past Medical History?: Yes - Past Social History Smoking Status: Never Smoked - CARDIAC Hx Cardiac Disorders: Yes Hx Congestive Heart Failure: Yes Hx Hypercholesterolemia: Yes Hx Hypertension: Yes - PULMONARY Hx Respiratory Disorders: Yes Hx Pneumonia: Yes - NEUROLOGICAL Hx Neurological Disorder: Yes Hx Alzheimer's Disease: Yes Hx Dementia: Yes Hx Migraine: Yes - HEENT Hx HEENT Problems: No - RENAL Hx Chronic Kidney Disease: Yes Hx Dialysis: Yes Type of Dialysis Access: Hemo - ENDOCRINE/METABOLIC Hx Endocrine Disorders: No - HEMATOLOGICAL/ONCOLOGICAL Hx Blood Disorders: No Hx AIDS: No Hx Human Immunodeficiency Virus (HIV): No - INTEGUMENTARY Hx Dermatological Problems: No - MUSCULOSKELETAL/RHEUMATOLOGICAL Hx Musculoskeletal Disorders: No Hx Falls: No - GASTROINTESTINAL Hx Gastrointestinal Disorders: Yes Hx Diverticulitis: Yes Hx Vomiting: No - GENITOURINARY/GYNECOLOGICAL Hx Genitourinary Disorders: Yes - PSYCHIATRIC Hx Psychophysiologic Disorder: Yes Hx Anxiety: Yes Hx Physical Abuse: No Hx Schizophrenia: No Hx Sexual Abuse: No Hx Substance Use: No - SURGICAL HISTORY Hx Appendectomy: Yes Hx Tonsillectomy: Yes - ANESTHESIA Hx Anesthesia: Yes Hx Anesthesia Reactions: No Hx Malignant Hyperthermia: No Has any member of the family had a problem w/ anesthesia?: No Meds Allergies/Adverse Reactions: Allergies Allergy/AdvReac Type Severity Reaction Status Date / Time No Known Allergies Allergy Verified 09/13/17 03:59 - Medications Medications: Current Medications Acetaminophen (Tylenol 325mg Tab) 650 mg PO Q6 PRN PRN Reason: Headache Amlodipine Besylate (Norvasc) 10 mg PO DAILY ANKUR Atorvastatin Calcium (Lipitor) 20 mg PO DAILY ANKUR Last Admin: 09/29/17 17:23 Dose: 20 mg Calcium Acetate (Phoslo) 1,334 mg PO TID [facility] Last Admin: 09/30/17 09:14 Dose: 1,334 mg Docusate Sodium (Colace Liquid) 100 mg NG BID PRN PRN Reason: Constipation Epoetin Seth (Procrit) 4,000 unit IV TTS [facility] Heparin Sodium (Porcine) (Heparin) 5,000 units SC Q8 [facility] PRN Reason: Protocol Last Admin: 09/30/17 01:50 Dose: Not Given Hydralazine HCl (Apresoline) 50 mg PO BID [facility] Last Admin: 09/29/17 17:25 Dose: 50 mg Labetalol HCl (Trandate) 100 mg PO BID [facility] Last Admin: 09/29/17 21:22 Dose: 100 mg Lisinopril (Zestril) 5 mg PO DAILY [facility] Last Admin: 09/29/17 17:24 Dose: 5 mg Vitamin B Complex/Vit C/Folic Acid (Nephro-Valentino) 1 tab PO DAILY [facility] Physical Exam - Constitutional Appears: Well, Non-toxic, No Acute Distress - Eye Exam Eye Exam: EOMI, PERRL - ENT Exam ENT Exam: Mucous Membranes Moist - Respiratory Exam Respiratory Exam: Clear to Auscultation Bilateral, NORMAL BREATHING PATTERN - Cardiovascular Exam Cardiovascular Exam: REGULAR RHYTHM, +S1, +S2 - GI/Abdominal Exam GI & Abdominal Exam: Soft. absent: Distended, Firm, Guarding, Rebound, Rigid, Tenderness - Extremities Exam Additional comments: left arm AVF, palpable thrill - Neurological Exam Neurological exam: Alert, Oriented x3 - Psychiatric Exam Psychiatric exam: Normal Affect, Normal Mood - Skin Skin Exam: Dry, Intact, Normal Color, Warm Results - Vital Signs Recent Vital Signs: Last Vital Signs Temp 98.3 F 09/30/17 08:00 Pulse 87 09/30/17 08:00 Resp 21 09/30/17 08:00 BP 171/75 H 09/30/17 08:00 Pulse Ox 97 09/30/17 08:00 - Labs Result Diagrams: 09/30/17 04:41 09/30/17 04:41 Labs: Laboratory Results - last 24 hr 09/29/17 09/29/17 09/29/17 12:15 12:15 14:08 WBC 5.3 RBC 3.18 L Hgb 9.8 L Hct 29.3 L MCV 92.0 D MCH 30.8 MCHC 33.5 RDW 13.2 Plt Count 134 MPV 10.3 Neut % (Auto) 66.2 Lymph % (Auto) 17.7 L [place] % (Auto) 9.9 Eos % (Auto) 5.1 H Baso % (Auto) 1.1 Neut # (Auto) 3.5 Lymph # (Auto) 0.9 L [place] # (Auto) 0.5 Eos # (Auto) 0.3 Baso # (Auto) 0.1 Sodium 140 Potassium 5.8 H Chloride 104 Carbon Dioxide 16 L Anion Gap 26 H BUN 78 H Creatinine 4.8 H Est GFR ( Amer) 11 Est GFR (Non-Af Amer) 9 Random Glucose 103 Calcium 9.5 Troponin I < 0.0120 NT-Pro-B Natriuret Pep 84628 H Procalcitonin 0.10 L 09/29/17 09/30/17 09/30/17 21:49 04:41 04:41 WBC 5.7 RBC 3.05 L Hgb 9.4 L Hct 27.6 L MCV 90.6 MCH 30.7 MCHC 33.9 RDW 13.1 Plt Count 139 MPV Neut % (Auto) Lymph % (Auto) [place] % (Auto) Eos % (Auto) Baso % (Auto) Neut # (Auto) Lymph # (Auto) [place] # (Auto) Eos # (Auto) Baso # (Auto) Sodium 140 Potassium 5.1 H 4.8 Chloride 103 Carbon Dioxide 20 L Anion Gap 22 H BUN 73 H Creatinine 5.0 H Est GFR ( Amer) 10 Est GFR (Non-Af Amer) 8 Random Glucose 98 Calcium 9.4 Troponin I NT-Pro-B Natriuret Pep Procalcitonin Assessment & Plan - Assessment and Plan (Free Text) Assessment: 77F with ESRD and need for urgent hemodialysis Plan: - Needs placement of Shiley - After discussion with her family patient agreed to have shiley placed. Further recs discuss with Dr. Jayro Major, PGY2
[2017-09-30 11:22] LABS: PROTHROMBIN TIME 11.4 Seconds (9.8-13.1)
[2017-09-30 11:23] LABS: PARTIAL THROMBOPLASTIN TIME 25.9 Seconds (25.6-37.1)
[2017-09-30 12:18] VITALS: O2SAT 100
[2017-09-30] MEDS ORDERED: Lidocaine 1% Inj (20ml) IJ ONE (13:15)
--- NOTE | 2017-09-30 13:41 | CP.PCM.DIS ---
Provider - Provider Date of Admission: 09/29/17 13:54 Attending physician: Cassie Arcos DO Primary care physician: None Consults: Nephro consult surgery consult Time Spent in preparation of Discharge (in minutes): 20 Hospital Course - Lab Results Lab Results: Most Recent Lab Values WBC 5.7 K/uL (4.8-10.8) 09/30/17 04:41 RBC 3.05 Mil/uL (3.80-5.20) L 09/30/17 04:41 Hgb 9.4 g/dL (12.0-16.0) L 09/30/17 04:41 Hct 27.6 % (34.0-47.0) L 09/30/17 04:41 MCV 90.6 fl (81.0-99.0) 09/30/17 04:41 MCH 30.7 pg (27.0-31.0) 09/30/17 04:41 MCHC 33.9 g/dL (33.0-37.0) 09/30/17 04:41 RDW 13.1 % (11.5-14.5) 09/30/17 04:41 Plt Count 139 K/uL (130-400) 09/30/17 04:41 MPV 10.3 fl (7.2-11.7) 09/29/17 12:15 Neut % (Auto) 66.2 % (50.0-75.0) 09/29/17 12:15 Lymph % (Auto) 17.7 % (20.0-40.0) L 09/29/17 12:15 [place] % (Auto) 9.9 % (0.0-10.0) 09/29/17 12:15 Eos % (Auto) 5.1 % (0.0-4.0) H 09/29/17 12:15 Baso % (Auto) 1.1 % (0.0-2.0) 09/29/17 12:15 Neut # (Auto) 3.5 K/uL (1.8-7.0) 09/29/17 12:15 Lymph # (Auto) 0.9 K/uL (1.0-4.3) L 09/29/17 12:15 [place] # (Auto) 0.5 K/uL (0.0-0.8) 09/29/17 12:15 Eos # (Auto) 0.3 K/uL (0.0-0.7) 09/29/17 12:15 Baso # (Auto) 0.1 K/uL (0.0-0.2) 09/29/17 12:15 PT 11.4 Seconds (9.8-13.1) 09/30/17 10:49 INR 1.0 (0.9-1.2) 09/30/17 10:49 APTT 25.9 Seconds (25.6-37.1) 09/30/17 10:49 Sodium 140 mmol/l (132-148) 09/30/17 04:41 Potassium 4.8 MMOL/L (3.6-5.0) 09/30/17 04:41 Chloride 103 mmol/L (98-107) 09/30/17 04:41 Carbon Dioxide 20 mmol/L (22-30) L 09/30/17 04:41 Anion Gap 22 (10-20) H 09/30/17 04:41 BUN 73 mg/dl (7-17) H 09/30/17 04:41 Creatinine 5.0 mg/dl (0.7-1.2) H 09/30/17 04:41 Est GFR ( Amer) 10 09/30/17 04:41 Est GFR (Non-Af Amer) 8 09/30/17 04:41 Random Glucose 98 mg/dL (65-105) 09/30/17 04:41 Calcium 9.4 mg/dL (8.4-10.2) 09/30/17 04:41 Troponin I < 0.0120 ng/mL (0.00-0.120) 09/29/17 12:15 NT-Pro-B Natriuret Pep 68762 pg/ml (0-900) H 09/29/17 12:15 Procalcitonin 0.10 NG/ML (0.19-0.49) L 09/29/17 14:08 - Hospital Course Hospital Course: 77 y/o female patient with PMH ESRD on HD . Alzheimer dementia, HTN came to ER after missing HD for the past two weeks. Patient often refuses dialysis due to her Alzheimer's dementia. Patient heart coordinator is Dr. Benedict and Dr. Blanton is the covering heart coordinator coordinating for dialysis . patient was found to be hyperkalemic K 5.8 , but stable She was placed under observation to receive HD. Her dialysis catheter noticed to have clotted so surgery consulted and temporary JHD catheter placed for HD.Patient will be given HD and discharged home . She will need to follow up with Dr. Ortiz her vascular surgeon for her AVF Will d/c patient home with family Will need to continue with HD as cheduled Will need to be compliant with her meds DX: ESRD on HD Hyperkalemia HTN Non functioning HD catheter Anemia of chronic disease Alzheimer dementia Discharge Exam - Head Exam Head Exam: ATRAUMATIC, NORMAL INSPECTION, NORMOCEPHALIC - Eye Exam Eye Exam: EOMI, Normal appearance, PERRL Pupil Exam: NORMAL ACCOMODATION - ENT Exam ENT Exam: Mucous Membranes Moist, Normal Exam - Neck Exam Neck exam: Full Rom, Normal Inspection - Respiratory Exam Respiratory Exam: Clear to PA & Lateral, NORMAL BREATHING PATTERN. absent: Rales, Rhonchi, Wheezes - Cardiovascular Exam Cardiovascular Exam: REGULAR RHYTHM, +S1, +S2. absent: JVD - GI/Abdominal Exam GI & Abdominal Exam: Normal Bowel Sounds, Soft. absent: Distended, Guarding, Rebound, Tenderness - Rectal Exam Rectal Exam: Deferred - Extremities Exam Extremities exam: normal inspection, pedal pulses present Additional comments: Left upper extremity fistula , thrill and bruit present - Back Exam Back exam: NORMAL INSPECTION - Neurological Exam Neurological exam: Alert, CN II-XII Intact, Oriented x3 - Psychiatric Exam Psychiatric exam: Anxious, Normal Affect - Skin Skin Exam: Dry, Warm Discharge Plan - Follow Up Plan Condition: STABLE Disposition: HOME/ ROUTINE Patient education suggested?: Yes Referrals: Fredis Benedict MD [Staff Provider] - Pool Funk Jr., MD [Medical Doctor] -
--- NOTE | 2017-09-30 13:43 | PCM.PROC ---
Procedures Attestation:: I certify that I have explained the specified Operation(s) or Procedure(s), risks, benefits and reasonable alternatives to the Patient and/or other person responsible. The opportunity was given to ask questions and all questions answered - Central Line Placement Right Femoral Hemodialysis Access Aseptic technique was employed throughout the procedure: Hand Hygiene done prior to procedure, Full body sterile drape, Chloraprep Antiseptic: 2 minute prep for Femoral CVP Time Out Performed: Yes Pt. Placed on Pulse Ox Monitor: Yes Central Line Prep: Chlorhexidine-Alcohol Combination Local Anesthesia Used: Lidocaine 1% Amount of Anesthesia Used (mls): 15 Ultrasound Used for Placement: Yes Central Line Lumen Inserted: double Central Line Length: 30 cm Post Procedure: Sutured in Place, Good Blood Return, All Ports Aspirated, Flushed, Capped, Sterile Dressing Applied Secured by: Suture Post procedure dressing: Gauze, Chlorhexidine disc (Biopatch) Post Procedure X-Ray: No Patient Tolerated Procedure: Well Immediate Complications: None
[2017-09-30 16:27] VITALS: TEMP 98.3
[2017-09-30 18:08] VITALS: RESP 17
[2017-09-30 18:57] VITALS: BP 133/67; PULSE 95
--- NOTE | 2017-09-30 22:21 | CP.PCM.CON ---
Past Patient History - Infectious Disease Hx of Infectious Diseases: None - Tetanus Immunizations Tetanus Immunization: Unknown - Past Medical History & Family History Past Medical History?: Yes - Past Social History Smoking Status: Never Smoked - CARDIAC Hx Cardiac Disorders: Yes Hx Congestive Heart Failure: Yes Hx Hypercholesterolemia: Yes Hx Hypertension: Yes - PULMONARY Hx Respiratory Disorders: Yes Hx Pneumonia: Yes - NEUROLOGICAL Hx Neurological Disorder: Yes Hx Alzheimer's Disease: Yes Hx Dementia: Yes Hx Migraine: Yes - HEENT Hx HEENT Problems: No - RENAL Hx Chronic Kidney Disease: Yes Hx Dialysis: Yes Type of Dialysis Access: Hemo - ENDOCRINE/METABOLIC Hx Endocrine Disorders: No - HEMATOLOGICAL/ONCOLOGICAL Hx Blood Disorders: No Hx AIDS: No Hx Human Immunodeficiency Virus (HIV): No - INTEGUMENTARY Hx Dermatological Problems: No - MUSCULOSKELETAL/RHEUMATOLOGICAL Hx Musculoskeletal Disorders: No Hx Falls: No - GASTROINTESTINAL Hx Gastrointestinal Disorders: Yes Hx Diverticulitis: Yes Hx Vomiting: No - GENITOURINARY/GYNECOLOGICAL Hx Genitourinary Disorders: Yes - PSYCHIATRIC Hx Psychophysiologic Disorder: Yes Hx Anxiety: Yes Hx Physical Abuse: No Hx Schizophrenia: No Hx Sexual Abuse: No Hx Substance Use: No - SURGICAL HISTORY Hx Appendectomy: Yes Hx Tonsillectomy: Yes - ANESTHESIA Hx Anesthesia: Yes Hx Anesthesia Reactions: No Hx Malignant Hyperthermia: No Has any member of the family had a problem w/ anesthesia?: No Meds Allergies/Adverse Reactions: Allergies Allergy/AdvReac Type Severity Reaction Status Date / Time No Known Allergies Allergy Verified 09/13/17 03:59 Results - Vital Signs Recent Vital Signs: Last Vital Signs Temp 98.3 F 09/30/17 16:26 Pulse 95 H 09/30/17 18:56 Resp 17 09/30/17 18:07 BP 133/67 09/30/17 18:56 Pulse Ox 100 09/30/17 18:07 - Labs Result Diagrams: 09/30/17 04:41 09/30/17 04:41 Labs: Laboratory Results - last 24 hr 09/30/17 09/30/17 09/30/17 04:41 04:41 10:49 WBC 5.7 RBC 3.05 L Hgb 9.4 L Hct 27.6 L MCV 90.6 MCH 30.7 MCHC 33.9 RDW 13.1 Plt Count 139 PT 11.4 INR 1.0 APTT 25.9 Sodium 140 Potassium 4.8 Chloride 103 Carbon Dioxide 20 L Anion Gap 22 H BUN 73 H Creatinine 5.0 H Est GFR ( Amer) 10 Est GFR (Non-Af Amer) 8 Random Glucose 98 Calcium 9.4
--- NOTE | 2017-09-30 22:21 | CP.PCM.PN ---
Subjective - Date & Time of Evaluation Date of Evaluation: 09/30/17 Time of Evaluation: 14:00 - Subjective Subjective: seen on hd Objective - Vital Signs/Intake and Output Vital Signs (last 24 hours): Temp Pulse Resp BP Pulse Ox 98.3 F 95 H 17 133/67 100 09/30/17 16:26 09/30/17 18:56 09/30/17 18:07 09/30/17 18:56 09/30/17 18:07 Intake and Output: 09/30/17 10/01/17 18:59 06:59 Intake Total 240 Output Total 250 Balance -10 - Labs Labs: 09/30/17 04:41 09/30/17 04:41 PT 11.4 Seconds (9.8-13.1) 09/30/17 10:49 INR 1.0 (0.9-1.2) 09/30/17 10:49 APTT 25.9 Seconds (25.6-37.1) 09/30/17 10:49
[2017-10-02] MEDS ORDERED: Epoetin Alfa 4000 UNIT/ML Inj IV SCH (09:00)
== END 2017-09-30 20:55 | disposition home or self-care (01) ==
LOC: H.ER 11:02 → INTOOBSV 13:54 → H.ERHOLD 13:54 → H.ICU/CCU 15:36
PROVIDERS: ADMIT Student in an Organized Health Care Education/Training Program; ATTEND Student in an Organized Health Care Education/Training Program
DX: E87.5 Hyperkalemia (principal); D63.8 Anemia in other chronic diseases classified elsewhere; E78.00 Pure hypercholesterolemia, unspecified; F02.80 Dementia in other diseases classified elsewhere, unspecified severity, without behavioral disturbance, psychotic disturbance, mood disturbance, and anxiety; G30.9 Alzheimer's disease, unspecified; I13.2 Hypertensive heart and chronic kidney disease with heart failure and with stage 5 chronic kidney disease, or end stage renal disease; I50.9 Heart failure, unspecified; J44.9 Chronic obstructive pulmonary disease, unspecified; N18.6 End stage renal disease; T82.41XA Breakdown (mechanical) of vascular dialysis catheter, initial encounter; Z87.01 Personal history of pneumonia (recurrent); Z87.442 Personal history of urinary calculi; Z90.49 Acquired absence of other specified parts of digestive tract; Z99.2 Dependence on renal dialysis; F41.9 Anxiety disorder, unspecified; F45.9 Somatoform disorder, unspecified; G43.909 Migraine, unspecified, not intractable, without status migrainosus; Z79.899 Other long term (current) drug therapy
CPT/HCPCS: 36558; 71045; 80048; 83880; 84132; 84145; 84484; 85025; 85027; 85610; 85730; 87040; 87081; 90935; 93005; 96365; 96374; 99285; G0378; J0610; J1940

== ENCOUNTER 2017-10-07 23:02 | Emergency (ER) | payer MEDICARE ==
[2017-10-07 23:02] VITALS: BMI 19.5
[2017-10-07 23:08] VITALS: BP 185/73; PULSE 85; RESP 18; TEMP 98.8; O2SAT 99
--- NOTE | 2017-10-07 23:54 | ED PDOC ---
HPI: Head Injury Time Seen by Provider: 10/07/17 23:12 Chief Complaint (Nursing): Trauma Chief Complaint (Provider): Head Injury History Per: Patient History/Exam Limitations: no limitations Injury Occurred (Timing): Hours Ago: (1/2 hour [employer]) Onset/Duration Of Symptoms: Hrs (1/2 hour [employer]) Patient States: Fell Striking Head Loss Of Consciousness: No Additional Complaint(s): 77 year old female presents to ED with complaints of head injury sustained x30 minutes [employer] and has a past medical history of end stage renal disease. Patient notes she was sleeping in bed before falling out of her bed. Confirms that this has happened before and notes her bed is very high off of the ground. (-) LOC, weakness, numbness, blurry vision, or nausea. Patient notes lump to the posterior aspect of head. Of note, patient was just discharged from the hospital x1 week ago where she was admitted for fluid overload due to end-stage renal disease and hyperkalemia. Family notes patient has not had hemodialysis since discharge as the patient refuses to go. Son further notes that patient does not currently have physical access to hemodialysis as her fistula is not patent. PCP: Non CPH Past Medical History Reviewed: Historical Data, Nursing Documentation, Vital Signs Vital Signs: Last Vital Signs Temp 98.8 F 10/07/17 23:03 Pulse 85 10/07/17 23:03 Resp 18 10/07/17 23:03 BP 185/73 H 10/07/17 23:03 Pulse Ox 99 10/07/17 23:03 - Medical History PMH: Alzheimer's Disease, Anemia, Anxiety, CHF, Dementia, Diverticulitis, HTN, Hypercholesterolemia, Kidney Stones, Migraine, Pneumonia, End Stage Renal Disease, Chronic Kidney Disease Denies: Schizophrenia - Surgical History Surgical History: Appendectomy, Tonsillectomy - Family History Family History: States: Unknown Family Hx, Hypertension - Social History Drugs: Denies - Immunization History Hx Tetanus Toxoid Vaccination: No Hx Influenza Vaccination: No Hx Pneumococcal Vaccination: No - Home Medications Home Medications: Ambulatory Orders Medication Instructions Recorded Atorvastatin [Lipitor] 20 mg PO DAILY 08/16/16 Calcium Acetate [Phoslo] 2 cap PO TID 08/16/16 Labetalol [Trandate] 100 mg PO BID 08/16/16 Lisinopril [Zestril] 5 mg PO DAILY 08/16/16 amLODIPine [Norvasc] 10 mg PO DAILY 08/16/16 hydrALAZINE [Apresoline] 50 mg PO BID 08/16/16 B Complex W-C No.20/Folic Acid 1 cap PO DAILY 11/04/16 [Renal Caps Softgel] Docusate [Colace LIQUID] 100 mg NG BID PRN udc 09/03/17 Acetaminophen [Tylenol 325mg tab] 650 mg PO Q6 PRN tab 09/17/17 - Allergies Allergies/Adverse Reactions: Allergies Allergy/AdvReac Type Severity Reaction Status Date / Time No Known Allergies Allergy Verified 10/07/17 23:03 Review of Systems ROS Statement: Except As Marked, All Systems Reviewed And Found Negative Eyes: Negative for: Vision Change Gastrointestinal: Negative for: Nausea Neurological: Positive for: Headache. Negative for: Weakness, Numbness, Other ( (-) LOC) Physical Exam - Reviewed Nursing Documentation Reviewed: Yes Vital Signs Reviewed: Yes - Physical Exam Appears: Positive for: Non-toxic, No Acute Distress Head Exam: Positive for: NORMOCEPHALIC. Negative for: ATRAUMATIC (large hematoma on occiput) Skin: Positive for: Warm, Dry, Pallor Eye Exam: Positive for: EOMI, PERRL ENT: Negative for: Pharyngeal Erythema, Tonsillar Exudate Neck: Positive for: Painless ROM, Supple Cardiovascular/Chest: Positive for: Regular Rate, Rhythm Respiratory: Positive for: Normal Breath Sounds. Negative for: Respiratory Distress Gastrointestinal/Abdominal: Positive for: Soft. Negative for: Tenderness Back: Positive for: Normal Inspection. Negative for: Muscle Spasm Extremity: Positive for: Normal ROM, Swelling (trace bilateral lower leg edema) Lymphatic: Negative for: Adenopathy Neurologic/Psych: Positive for: Alert. Negative for: Motor/Sensory Deficits - Laboratory Results Result Diagrams: 10/07/17 23:50 10/07/17 23:50 - ECG O2 Sat by Pulse Oximetry: 99 (RA) Pulse Ox Interpretation: Normal Medical Decision Making Medical Decision Makin Initial impression: head injury DDx including but not limited to: traumatic brain injury, contusion, minor head injury, renal failure, hyperkalemia Initial plan: * CT HEAD * EKG * Labs * Magnesium * Phosphorus * PTT/PT Scribe Attestation: Documented by Brisa Hull acting as a scribe for Lena Danielle MD. MD Ballard Attestation: All medical record entries made by the Scribe were at my direction and personally dictated by me. I have reviewed the chart and agree that the record accurately reflects my personal performance of the history, physical exam, medical decision making, and the department course for this patient. I have also personally directed, reviewed, and agree with the discharge instructions and disposition. Disposition - Clinical Impression Clinical Impression: Head injury, Hyperkalemia, diminished renal excretion - Disposition Disposition: Transfer of Care Disposition Time: 00:00 Condition: STABLE Print Language: KHMER Patient Signed Over To: Scotty Floyd Handoff Comments: Pendings ER workup, reassessment and final ER disposition
--- NOTE | 2017-10-08 00:19 | ED PDOC ---
- Laboratory Results Result Diagrams: 10/07/17 23:50 10/07/17 23:50 - ECG O2 Sat by Pulse Oximetry: 99 (RA) Medical Decision Making Medical Decision Makin Patient signed out to this provider from Lena Danielle MD pending labs and CT. 0027 CT HEAD FINDINGS Brain: Mild atrophy. No intracranial hemorrhage. No mass. Multiple scattered foci of decreased attenuation within periventricular/subcortical white matter. No edema. Ventricles: No hydrocephalus. Bones/joints: No acute fracture. Soft tissues: RIGHT occipital parietal soft tissue swelling. Vasculature: Atherosclerotic disease of intracranial arteries. Sinuses: No acute sinusitis. Mastoid air cells: No mastoid effusion. Orbits: Unremarkable as visualized. IMPRESSION: 1. No intracranial hemorrhage. 2. Nonspecific white matter changes. 3. Incidental/non-acute findings are described above. Thank you for allowing us to participate in the care of your patient. 0139 Labs reviewed: no clinically significant abnormalities with the exception of the mild elevation of potassium at 5.5. Patient is known to have chronic renal failure and her BUN and creatinine levels are chronically elevated. Patient has no EKG changes Patient is currently being set up for dialysis but is refusing to have it done as per the son. Patient is agreeable to Kayexal[facility]. Patient is stable for discharge home with son. Dx: hyperkalemia, end-stage renal disease, and closed head injury Condition: stable Scribe Attestation: Documented by Brisa Hull acting as a scribe for Scotty Floyd MD. Scribe Attestation: All medical record entries made by the Scribe were at my direction and personally dictated by me. I have reviewed the chart and agree that the record accurately reflects my personal performance of the history, physical exam, medical decision making, and the department course for this patient. I have also personally directed, reviewed, and agree with the discharge instructions and disposition. Disposition - Clinical Impression Clinical Impression: Head injury, Hyperkalemia, diminished renal excretion - POA Present On Arrival: None - Disposition Disposition: Routine/Home Disposition Time: 01:39 Condition: STABLE Instructions: Hyperkalemia, Minor Head Injury Forms: [employer] (Amharic) Print Language: ECUADOREAN
[2017-10-08 00:26] LABS: BASO # 0.1 K/uL (0.0-0.2); BASO % 1.9 % (0.0-2.0); EOS # 0.4 K/uL (0.0-0.7); EOS % 9.4 % (0.0-4.0); HEMOGLOBIN 8.5 g/dL (12.0-16.0); LYMPH # 1.1 K/uL (1.0-4.3); LYMPH % 25.1 % (20.0-40.0); MEAN CELL VOLUME 90.7 fl (81.0-99.0); MEAN CORPUSCULAR HEMOGLOBIN 30.4 pg (27.0-31.0); MEAN CORPUSCULAR HGB CONC 33.5 g/dL (33.0-37.0); MEAN PLATELET VOLUME 10.4 fl (7.2-11.7); MONO # 0.6 K/uL (0.0-0.8); MONO % 13.8 % (0.0-10.0); NEUT # 2.2 K/uL (1.8-7.0); NEUT % 49.8 % (50.0-75.0); NRBC % 0.3 % (0.0-0.0); RBC 2.81 Mil/uL (3.80-5.20); RED CELL DISTRIBUTION WIDTH 13.4 % (11.5-14.5); WHITE BLOOD COUNT 4.4 K/uL (4.8-10.8)
--- NOTE | 2017-10-08 00:27 | CT ---
EXAM: CT Head Without Intravenous Contrast CLINICAL HISTORY: 77 years old, female; Injury or trauma; Fall; Initial encounter; Blunt trauma (contusions or hematomas); Additional info: Headache head injury TECHNIQUE: Axial computed tomography images of the head/brain without intravenous contrast. All CT scans at this facility use one or more dose reduction techniques, viz.: automated exposure control; ma/kV adjustment per patient size (including targeted exams where dose is matched to indication; i.e. head); or iterative reconstruction technique. Coronal and sagittal reformatted images were created and reviewed. COMPARISON: CT - HEAD W/O CONTRAST 2017-09-13 06:11 FINDINGS: Brain: Mild atrophy. No intracranial hemorrhage. No mass. Multiple scattered foci of decreased attenuation within periventricular/subcortical white matter. No edema. Ventricles: No hydrocephalus. Bones/joints: No acute fracture. Soft tissues: RIGHT occipital parietal soft tissue swelling. Vasculature: Atherosclerotic disease of intracranial arteries. Sinuses: No acute sinusitis. Mastoid air cells: No mastoid effusion. Orbits: Unremarkable as visualized. IMPRESSION: 1. No intracranial hemorrhage. 2. Nonspecific white matter changes. 3. Incidental/non-acute findings are described above.
[2017-10-08 00:43] LABS: ALBUMIN 3.8 g/dL (3.5-5.0); CALCIUM 9.1 mg/dL (8.4-10.2)
[2017-10-08 00:44] LABS: ALB/GLOB RATIO 1.4 (1.0-2.1); PARTIAL THROMBOPLASTIN TIME 30.5 Seconds (25.6-37.1)
[2017-10-08] MEDS ORDERED: Sod Polystyrene Sulf 15 gm/60 ml Susp PO STA (01:22)
--- NOTE | 2017-10-08 23:59 | CARD ---
APPROVED REPORT EKG Measurement Heart [id number] <Conclusion> Normal sinus rhythm Possible Left atrial enlargement Nonspecific T wave abnormality Abnormal ECG
== END 2017-10-08 01:48 | disposition home or self-care (01) ==
LOC: H.ER 23:02
DX: S09.90XA Unspecified injury of head, initial encounter (principal); E87.5 Hyperkalemia; N18.6 End stage renal disease; W06.XXXA Fall from bed, initial encounter; Y93.9 Activity, unspecified

== ENCOUNTER 2017-10-16 10:09 | Inpatient (IN) | payer MEDICARE ==
[2017-10-16 10:10] VITALS: BMI 18.0
--- NOTE | 2017-10-16 11:21 | ED PDOC ---
HPI: SOB/CHF/COPD Time Seen by Provider: 10/16/17 10:47 Chief Complaint (Nursing): Shortness Of Breath Chief Complaint (Provider): Shortness Of Breath History Per: Patient History/Exam Limitations: no limitations Onset/Duration Of Symptoms: Days (x2) Current Symptoms Are (Timing): Still Present Additional Complaint(s): 77 year old female with medical history of pneumonia, hypertension and CHF, presents to the emergency department via EMS for an evaluation of increasing shortness of breath ongoing for 2 days. She denied any fever, chills, cough, chest pain, nausea, vomiting or abdominal pain. Of note, patient goes for dialysis but has not undergone treatment in the last 3 weeks. PMD: none provided Past Medical History Reviewed: Historical Data, Nursing Documentation, Vital Signs Vital Signs: Last Vital Signs Temp 98.4 F 10/16/17 16:04 Pulse 87 10/16/17 16:04 Resp 14 10/16/17 16:04 BP 193/87 H 10/16/17 16:04 Pulse Ox 97 10/16/17 16:04 - Medical History PMH: Alzheimer's Disease, Anemia, Anxiety, CHF, Dementia, Diverticulitis, HTN, Hypercholesterolemia, Kidney Stones, Migraine, Pneumonia, End Stage Renal Disease, Chronic Kidney Disease Denies: Schizophrenia - Surgical History Surgical History: Appendectomy, Tonsillectomy - Family History Family History: States: Unknown Family Hx, Hypertension - Social History Current smoker - smoking cessation education provided: No Alcohol: None Drugs: Denies - Immunization History Hx Tetanus Toxoid Vaccination: No Hx Influenza Vaccination: No Hx Pneumococcal Vaccination: No - Home Medications Home Medications: Ambulatory Orders Medication Instructions Recorded Atorvastatin [Lipitor] 20 mg PO DAILY 08/16/16 Labetalol [Trandate] 100 mg PO BID 08/16/16 Lisinopril [Zestril] 5 mg PO DAILY 08/16/16 amLODIPine [Norvasc] 10 mg PO DAILY 08/16/16 hydrALAZINE [Apresoline] 50 mg PO BID 08/16/16 B Complex W-C No.20/Folic Acid 1 cap PO DAILY 11/04/16 [Renal Caps Softgel] Acetaminophen [Tylenol 325mg tab] 650 mg PO Q6 PRN tab 09/17/17 Calcium Carbonate [Oscal] 500 mg PO TID 04/03/18 Docusate [Colace LIQUID] 100 mg PO BID PRN 10/16/17 - Allergies Allergies/Adverse Reactions: Allergies Allergy/AdvReac Type Severity Reaction Status Date / Time No Known Allergies Allergy Verified 10/16/17 10:20 Review of Systems ROS Statement: Except As Marked, All Systems Reviewed And Found Negative Constitutional: Negative for: Fever, Chills Cardiovascular: Negative for: Chest Pain Respiratory: Positive for: Shortness of Breath. Negative for: Cough Gastrointestinal: Negative for: Nausea, Vomiting, Abdominal Pain Physical Exam - Reviewed Nursing Documentation Reviewed: Yes Vital Signs Reviewed: Yes - Physical Exam Appears: Positive for: Uncomfortable, In Acute Distress (mildly) Head Exam: Positive for: ATRAUMATIC, NORMAL INSPECTION, NORMOCEPHALIC Skin: Positive for: Normal Color Eye Exam: Positive for: Normal appearance ENT: Positive for: Normal ENT Inspection Neck: Positive for: Normal, Painless ROM, Supple Cardiovascular/Chest: Positive for: Regular Rate, Rhythm, Chest Non Tender Respiratory: Positive for: Rales (senior living up lungs bilaterally), Respiratory Distress (mild) Gastrointestinal/Abdominal: Positive for: Normal Exam, Soft. Negative for: Tenderness Extremity: Positive for: Normal ROM (upper/lower). Negative for: Pedal Edema ( bilateral), Calf Tenderness (bilateral) Neurologic/Psych: Positive for: Alert, Oriented. Negative for: Motor/Sensory Deficits - Laboratory Results Result Diagrams: 10/16/17 11:10 10/16/17 11:10 - ECG O2 Sat by Pulse Oximetry: 97 (RA) Pulse Ox Interpretation: Normal Medical Decision Making Medical Decision Making: Initial Impression: Shortness of breath Initial Plan: * EKG * BNP * CMP * Troponin I * CBC * CXR * Lasix 60mg IVP Time: 1030 --EKG: NSR at 82 BMP. Noted LVH and LAE. Time: 1138 --CXR FINDINGS: LUNGS: The lungs are well inflated. There is moderate pulmonary venous congestion and mild interstitial pulmonary edema. PLEURA: No pneumothorax. Small pleural effusions. CARDIOVASCULAR: There is persistent mild cardiomegaly. Atherosclerotic aortic arch calcifications are present. OSSEOUS STRUCTURES: No significant abnormalities. VISUALIZED UPPER ABDOMEN: Normal. OTHER FINDINGS: None. IMPRESSION: No significant interval change in findings of congestive heart failure. Time: 1245 --Discussed case with Dr. Dooley who will admit patient to telemetry unit. Requested consult from Dr. Benedict, land measurer. Scribe Attestation: Documented by Desirae Hargrove, acting as a scribe for Fausto Polanco DO. Provider Scribe Attestation: All medical record entries made by the Scribe were at my direction and personally dictated by me. I have reviewed the chart and agree that the record accurately reflects my personal performance of the history, physical exam, medical decision making, and the department course for this patient. I have also personally directed, reviewed, and agree with the discharge instructions and disposition. Disposition - Clinical Impression Clinical Impression: Chronic kidney disease, CHF exacerbation - Disposition Disposition Time: 11:00 Condition: FAIR
--- NOTE | 2017-10-16 11:40 | RAD ---
PROCEDURE: CHEST RADIOGRAPH, 1 VIEW HISTORY: SOB COMPARISON: 09/29/2017. FINDINGS: LUNGS: The lungs are well inflated. There is moderate pulmonary venous congestion and mild interstitial pulmonary edema. PLEURA: No pneumothorax. Small pleural effusions. CARDIOVASCULAR: There is persistent mild cardiomegaly. Atherosclerotic aortic arch calcifications are present. OSSEOUS STRUCTURES: No significant abnormalities. VISUALIZED UPPER ABDOMEN: Normal. OTHER FINDINGS: None. IMPRESSION: No significant interval change in findings of congestive heart failure.
--- NOTE | 2017-10-16 11:48 | CARD ---
APPROVED REPORT EKG Measurement Heart [id number] <Conclusion> Normal sinus rhythm Possible Left atrial enlargement Left ventricular hypertrophy T wave abnormality, consider lateral ischemia Abnormal ECG
[2017-10-16 11:58] LABS: BASO # 0.1 K/uL (0.0-0.2); BASO % 1.4 % (0.0-2.0); EOS # 0.2 K/uL (0.0-0.7); EOS % 2.7 % (0.0-4.0); LYMPH % 12.6 % (20.0-40.0); MEAN CELL VOLUME 89.7 fl (81.0-99.0); MEAN CORPUSCULAR HEMOGLOBIN 30.7 pg (27.0-31.0); MEAN CORPUSCULAR HGB CONC 34.2 g/dL (33.0-37.0); MEAN PLATELET VOLUME 11.8 fl (7.2-11.7); MONO # 0.7 K/uL (0.0-0.8); MONO % 8.4 % (0.0-10.0); NEUT # 6.2 K/uL (1.8-7.0); NEUT % 74.9 % (50.0-75.0); NRBC % 0.1 % (0.0-0.0); RBC 3.58 Mil/uL (3.80-5.20); RED CELL DISTRIBUTION WIDTH 13.2 % (11.5-14.5); WHITE BLOOD COUNT 8.2 K/uL (4.8-10.8)
[2017-10-16 12:14] LABS: ALB/GLOB RATIO 1.4 (1.0-2.1); ALBUMIN 4.4 g/dL (3.5-5.0); CALCIUM 10.1 mg/dL (8.4-10.2)
[2017-10-16 12:19] LABS: TROPONIN I 0.029 ng/mL (0.00-0.120)
[2017-10-16] MEDS ORDERED: Sod Polystyrene Sulf 15 gm/60 ml Susp PO STA (12:40)
[2017-10-16] MEDS ORDERED: Sod Polystyrene Sulf 15 gm/60 ml Susp ONE (15:07)
[2017-10-17] MEDS ORDERED: Lidocaine/Prilocaine CREAM 5GM TP ONE (08:50)
[2017-10-17] MEDS: Multivitamin Vitamin B Complex (Nephro-Vite) Tab PO SCH (09:25)
--- NOTE | 2017-10-17 12:20 | CP.PCM.CON ---
History of Present Illness - History of Present Illness History of Present Illness: Patient is a 77 years of age female known to me with end stage renal disease on maintenance hemodialysis however she did not show up for dialysis in the past 3 weeks. And presented to the emergency room with shortness of breath and hyperkalemia. Patient has been having the same problem she did not show up for dialysis and should come every 2 weeks or so position complaining abnormal electrolytes shortness of breath. Past medical history End stage renal disease is refusing dialysis all the time Hypertension Hyperlipidemia Secondary hyperparathyroidism Hyperphosphatemia Social history not contributory her family aware. Review of Systems - Review of Systems Systems not reviewed;Unavailable: Respiratory Distress - Constitutional Constitutional: Anorexia, Malaise. absent: Chills, Excessive Sweating - EENT Eyes: Blurred Vision Nose/Mouth/Throat: absent: Epistaxis, Nasal Congestion - Cardiovascular Cardiovascular: Dyspnea, Dyspnea on Exertion, Edema, Leg Edema - Respiratory Respiratory: Cough, Dyspnea. absent: Hemoptysis - Gastrointestinal Gastrointestinal: Cramping, Nausea. absent: Coffee Ground Emesis, Diarrhea, Vomiting - Genitourinary Genitourinary: Nocturia - Musculoskeletal Musculoskeletal: Abnormal Gait, Muscle Weakness, Myalgias - Integumentary Integumentary: As Per HPI - Neurological Neurological: Confusion. absent: Dizziness, Numbness, Focal Weakness - Psychiatric Psychiatric: Behavioral Changes - Endocrine Endocrine: Fatigue - Hematologic/Lymphatic Hematologic: absent: Easy Bleeding Past Patient History - Infectious Disease Hx of Infectious Diseases: None - Tetanus Immunizations Tetanus Immunization: Unknown - Past Medical History & Family History Past Medical History?: Yes - Past Social History Smoking Status: Never Smoked - CARDIAC Hx Congestive Heart Failure: Yes Hx Hypercholesterolemia: Yes Hx Hypertension: Yes - PULMONARY Hx Pneumonia: Yes - NEUROLOGICAL Hx Alzheimer's Disease: Yes Hx Dementia: Yes Hx Migraine: Yes - HEENT Hx HEENT Problems: No - RENAL Hx Chronic Kidney Disease: Yes Hx Kidney Stones: Yes - ENDOCRINE/METABOLIC Hx Endocrine Disorders: No - HEMATOLOGICAL/ONCOLOGICAL Hx Anemia: Yes - INTEGUMENTARY Hx Dermatological Problems: No - MUSCULOSKELETAL/RHEUMATOLOGICAL Hx Musculoskeletal Disorders: No Hx Falls: No - GASTROINTESTINAL Hx Diverticulitis: Yes - GENITOURINARY/GYNECOLOGICAL Hx Genitourinary Disorders: Yes - PSYCHIATRIC Hx Anxiety: Yes Hx Schizophrenia: No Hx Substance Use: No - SURGICAL HISTORY Hx Appendectomy: Yes Hx Tonsillectomy: Yes - ANESTHESIA Hx Anesthesia: Yes Hx Anesthesia Reactions: No Hx Malignant Hyperthermia: No Meds Allergies/Adverse Reactions: Allergies Allergy/AdvReac Type Severity Reaction Status Date / Time No Known Allergies Allergy Verified 10/16/17 10:20 - Medications Medications: Current Medications Acetaminophen (Tylenol 325mg Tab) 650 mg PO Q6 PRN PRN Reason: Pain, moderate (4-7) Amlodipine Besylate (Norvasc) 10 mg PO DAILY [facility] Last Admin: 10/17/17 09:25 Dose: Not Given Atorvastatin Calcium (Lipitor) 20 mg PO DAILY [facility] Last Admin: 10/17/17 09:25 Dose: 20 mg Calcium Carbonate (Oscal) 500 mg PO TID [facility] Last Admin: 10/17/17 09:26 Dose: 500 mg Docusate Sodium (Colace) 100 mg PO BID [facility] Last Admin: 10/17/17 09:26 Dose: 100 mg Hydralazine HCl (Apresoline) 50 mg PO Q12 [facility] Last Admin: 10/17/17 09:24 Dose: Not Given Labetalol HCl (Trandate) 100 mg PO BID [facility] [place] Last Admin: 10/17/17 09:26 Dose: Not Given Lisinopril (Zestril) 5 mg PO DAILY [facility] Last Admin: 10/17/17 09:27 Dose: Not Given Vitamin B Complex/Vit C/Folic Acid (Nephro-Valentino) 1 tab PO DAILY [facility] Last Admin: 10/17/17 09:25 Dose: 1 tab Physical Exam - Constitutional Appears: In Acute Distress - Eye Exam Eye Exam: Conjunctival injection - ENT Exam ENT Exam: Mucous Membranes Moist - Neck Exam Neck exam: Negative for: Lymphadenopathy - Respiratory Exam Respiratory Exam: Rales, Rhonchi. absent: Chest Wall Tenderness - Cardiovascular Exam Cardiovascular Exam: absent: Gallop, JVD, Rubs - GI/Abdominal Exam GI & Abdominal Exam: Normal Bowel Sounds. absent: Guarding - Extremities Exam Extremities exam: Negative for: calf tenderness - Back Exam Back exam: absent: CVA tenderness (L), CVA tenderness (R) - Neurological Exam Neurological exam: Altered - Psychiatric Exam Psychiatric exam: Anxious Results - Vital Signs Recent Vital Signs: Last Vital Signs Temp 98.1 F 10/17/17 11:50 Pulse 82 10/17/17 11:50 Resp 18 10/17/17 11:50 BP 162/80 H 10/17/17 11:50 Pulse Ox 98 10/17/17 11:50 - Labs Result Diagrams: 10/16/17 11:10 10/16/17 11:10 Labs: Laboratory Results - last 24 hr 10/16/17 11:10 Troponin I 0.0290 NT-Pro-B Natriuret Pep 40786 H Assessment & Plan (1) CHF exacerbation Status: Acute (2) CKD (chronic kidney disease) Assessment and Plan: ESRD missing HD for 3 weeks Patient came with shortness of breath and volume overloaded and emergency hemodialysis, Hypertension continue antihypertensive medication Hyperkalemia patient is receiving dialysis now Hyperphosphatemia continue phosphorus binder Secondary hyperparathyroidism to give calcitriol Status: Chronic (3) Accelerated hypertension Status: Acute
--- NOTE | 2017-10-17 13:26 | CP.PCM.PN ---
Subjective - Date & Time of Evaluation Date of Evaluation: 10/17/17 Time of Evaluation: 10:30 - Subjective Subjective: dialysis note She was seen on hemodialysis. Patient not cooperating and refusing to complete dialysis. discussed with black ash worker at bed side NA bath 2 meq K bath 2 meq bicarb. 34 UF 2000cc Complaining of Shortness of breath Objective - Vital Signs/Intake and Output Vital Signs (last 24 hours): Temp Pulse Resp BP Pulse Ox 98.1 F 82 18 162/80 H 98 10/17/17 11:50 10/17/17 11:50 10/17/17 11:50 10/17/17 11:50 10/17/17 11:50 - Medications Medications: Current Medications Acetaminophen (Tylenol 325mg Tab) 650 mg PO Q6 PRN PRN Reason: Pain, moderate (4-7) Last Admin: 10/17/17 12:22 Dose: 650 mg Amlodipine Besylate (Norvasc) 10 mg PO DAILY [facility] Last Admin: 10/17/17 09:25 Dose: Not Given Atorvastatin Calcium (Lipitor) 20 mg PO DAILY [facility] Last Admin: 10/17/17 09:25 Dose: 20 mg Calcium Carbonate (Oscal) 500 mg PO TID [facility] Last Admin: 10/17/17 09:26 Dose: 500 mg Docusate Sodium (Colace) 100 mg PO BID [facility] Last Admin: 10/17/17 09:26 Dose: 100 mg Hydralazine HCl (Apresoline) 50 mg PO Q12 [facility] Last Admin: 10/17/17 09:24 Dose: Not Given Labetalol HCl (Trandate) 100 mg PO BID [facility] Last Admin: 10/17/17 09:26 Dose: Not Given Lisinopril (Zestril) 5 mg PO DAILY [facility] Last Admin: 10/17/17 09:27 Dose: Not Given Vitamin B Complex/Vit C/Folic Acid (Nephro-Valentino) 1 tab PO DAILY [facility] Last Admin: 10/17/17 09:25 Dose: 1 tab - Labs Labs: 10/16/17 11:10 10/16/17 11:10 - Constitutional Appears: In Acute Distress - Eye Exam Eye Exam: Conjunctival injection - ENT Exam ENT Exam: Mucous Membranes Moist - Respiratory Exam Respiratory Exam: Rales, Rhonchi. absent: Chest Wall Tenderness - Cardiovascular Exam Cardiovascular Exam: absent: Gallop, JVD, Rubs - GI/Abdominal Exam GI & Abdominal Exam: Soft, Normal Bowel Sounds - Extremities Exam Extremities Exam: absent: Calf Tenderness - Back Exam Back Exam: absent: CVA tenderness (L), CVA tenderness (R) - Neurological Exam Neurological Exam: Alert, Altered - Psychiatric Exam Psychiatric exam: Agitated - Skin Skin Exam: absent: Cyanosis Assessment and Plan (1) CHF exacerbation Status: Acute (2) CKD (chronic kidney disease) Assessment & Plan: ESRD receiving HD now hyperkalemia CHF UF now 1999 cc Hypertension hyperphosphatemia Status: Chronic (3) Accelerated hypertension Status: Acute
--- NOTE | 2017-10-17 13:29 | CP.PCM.HP ---
History of Present Illness - History of Present Illness History of Present Illness: 77 y/o F brought to ER [facility], [place] by EMS, to be evaluated for SOB x 2 days, no cough, increased to moderate on DOA, also associated BARBA / SOB at rest, Pt with no relief. Worsening symptoms: Hx of ESRD on HD MWF, Dementia, Alzheimer's Disease. Aggravated factor: Non in compliance with HD, Pt refusing dialysis x the past 3 weeks. No: fever, chills, vomiting/ nausea, abdominal pain, CP, LOC, syncope, palpitation, sick contact. EKG shows: Normal sinus rhythm, LV hypertrophy, T wave abnormality, consider lateral ischemia. CXR: No pneumothorax, mild interstitial pulmonary edema. Present on Admission - Present on Admission Any Indicators Present on Admission: No Review of Systems - Review of Systems Systems not reviewed;Unavailable: Acuity of Condition, Dementia Past Patient History - Infectious Disease Hx of Infectious Diseases: None - Tetanus Immunizations Tetanus Immunization: Unknown - Past Medical History & Family History Past Medical History?: Yes Pertinent Family History: Unknown - Past Social History Smoking Status: Never Smoked Alcohol: None Drugs: Denies - CARDIAC Hx Cardiac Disorders: Yes Hx Congestive Heart Failure: Yes Hx Hypercholesterolemia: Yes Hx Hypertension: Yes - PULMONARY Hx Respiratory Disorders: Yes Hx Pneumonia: Yes - NEUROLOGICAL Hx Neurological Disorder: Yes Hx Alzheimer's Disease: Yes Hx Dementia: Yes Hx Migraine: Yes - HEENT Hx HEENT Problems: No - RENAL Hx Chronic Kidney Disease: Yes Hx Kidney Stones: Yes - ENDOCRINE/METABOLIC Hx Endocrine Disorders: No - HEMATOLOGICAL/ONCOLOGICAL Hx Blood Disorders: Yes Hx Anemia: Yes - INTEGUMENTARY Hx Dermatological Problems: No - MUSCULOSKELETAL/RHEUMATOLOGICAL Hx Musculoskeletal Disorders: No Hx Falls: No - GASTROINTESTINAL Hx Gastrointestinal Disorders: Yes Hx Diverticulitis: Yes - GENITOURINARY/GYNECOLOGICAL Hx Genitourinary Disorders: Yes - PSYCHIATRIC Hx Psychophysiologic Disorder: Yes Hx Anxiety: Yes Hx Schizophrenia: No Hx Substance Use: No - SURGICAL HISTORY Hx Surgeries: Yes Hx Appendectomy: Yes Hx Tonsillectomy: Yes - ANESTHESIA Hx Anesthesia: Yes Hx Anesthesia Reactions: No Hx Malignant Hyperthermia: No Meds Allergies/Adverse Reactions: Allergies Allergy/AdvReac Type Severity Reaction Status Date / Time No Known Allergies Allergy Verified 10/16/17 10:20 Physical Exam - Constitutional Appears: No Acute Distress, Chronically Ill - Head Exam Head Exam: NORMAL INSPECTION - Eye Exam Eye Exam: PERRL - ENT Exam ENT Exam: Normal Exam - Neck Exam Neck exam: Positive for: Normal Inspection - Respiratory Exam Respiratory Exam: NORMAL BREATHING PATTERN - Cardiovascular Exam Cardiovascular Exam: REGULAR RHYTHM - GI/Abdominal Exam GI & Abdominal Exam: Normal Bowel Sounds, Soft - Extremities Exam Extremities exam: Positive for: normal inspection - Back Exam Back exam: NORMAL INSPECTION - Neurological Exam Additional comments: Awake, Ox1, confused. - Skin Skin Exam: Normal Color, Warm Results - Vital Signs Recent Vital Signs: Last Vital Signs Temp 98.1 F 10/17/17 11:50 Pulse 82 10/17/17 11:50 Resp 18 10/17/17 11:50 BP 162/80 H 10/17/17 11:50 Pulse Ox 98 10/17/17 11:50 reviewed J.P. - Labs Result Diagrams: 10/18/17 05:30 10/18/17 05:30 Labs: reviewed J.P. - EKG Data EKG comments: reviewed J.P. - Imaging and Cardiology Chest x-ray Status: Report reviewed by me (Carole) Assessment & Plan (1) ESRD (end stage renal disease) Status: Chronic Priority: High (2) CHF exacerbation Status: Acute Priority: High (3) Accelerated hypertension Status: Acute (4) Dyslipidemia Status: Chronic Priority: Medium (5) Constipation Status: Chronic Priority: Medium - Assessment and Plan (Free Text) Plan: Continue NC 2 L/M, renal diet, Echo, continue Norvasc, Zestril, Lipitor, rst of Tx, continue HD, Renal consult appreciated. Cardiac consult. - Date & Time Date: 10/17/17 Time: 08:20
[2017-10-17 15:45] LABS: CALCIUM 9.1 mg/dL (8.4-10.2)
[2017-10-17] MEDS ORDERED: Potassium Chloride 20 mEq ER Tab PO ONE (18:45)
[2017-10-18 06:30] LABS: BASO # 0.1 K/uL (0.0-0.2); BASO % 1.4 % (0.0-2.0); EOS # 0.4 K/uL (0.0-0.7); EOS % 8.5 % (0.0-4.0); LYMPH # 1.2 K/uL (1.0-4.3); LYMPH % 25.3 % (20.0-40.0); MEAN CELL VOLUME 89.3 fl (81.0-99.0); MEAN CORPUSCULAR HEMOGLOBIN 30.3 pg (27.0-31.0); MEAN CORPUSCULAR HGB CONC 33.9 g/dL (33.0-37.0); MEAN PLATELET VOLUME 11.5 fl (7.2-11.7); MONO # 0.8 K/uL (0.0-0.8); MONO % 17.4 % (0.0-10.0); NEUT # 2.2 K/uL (1.8-7.0); NEUT % 47.4 % (50.0-75.0); RBC 3.32 Mil/uL (3.80-5.20); RED CELL DISTRIBUTION WIDTH 12.7 % (11.5-14.5); WHITE BLOOD COUNT 4.6 K/uL (4.8-10.8)
[2017-10-18 06:51] LABS: CALCIUM 8.9 mg/dL (8.4-10.2)
[2017-10-18] MEDS: Multivitamin Vitamin B Complex (Nephro-Vite) Tab PO SCH (08:03)
[2017-10-18] MEDS: Pantoprazole 40 mg EC Tab PO SCH (15:25)
--- NOTE | 2017-10-18 16:42 | CP.PCM.PN ---
Subjective - Date & Time of Evaluation Date of Evaluation: 10/18/17 Time of Evaluation: 16:39 - Subjective Subjective: Nephrology Consultation: Assessment: End stage renal disease on hemodialysis (MWF) via AVF with missed HD. fluid overload, non compliance Anemia, Hyperphosphatemia, Secondary hyperparathyroidism, HTN, dementia Plan: Will plan for dialysis tomorrow as MWF. Continue with Nephrovite 1 tab/day. PRBC as needed for anemia. last Hb 10.0 Continue with phos binders, check phos level BP control with meds as ordered. Patient on RAAS floresita as Lisinopril Glycemic control, Dialysis consistent diet Further work up/management as per primary team Dose meds/antibiotics (if needed) for ESRD status. Avoid fleets enema/magnesium based laxatives. Thanks for allowing me to participate in care of your patient. Will follow patient with you. Please call if any Qs Dr Sridhar Day Office: [phone] ROS: denies CP/SOB/nausea. rest all other neg Physical Examination: General Appearance: Comfortable, in no acute respiratory distress, co-operative . Vitals reviewed and noted as below Head; Atraumatic, normocephalic ENT: no ulcers no thrush. Tongue is midline. Oropharynx: no rash or ulcers. EYES: Pupils are equal, round and reactive to light accommodation. Eye muscles and extraocular movement intact. Sclera is anicteric. Neck; supple no lymphadenopathy, no thyromegaly or bruit Lungs: Normal respiratory rate/effort. Breath sounds bilateral equal and with few basal crackles Heart: Normal rate. s1s2 normal. No rub or gallop. Extremities: no edema. No varicose veins Neurological: Patient is alert, awake and has dementia. No focal deficit. Strength bilateral appropriate and equal Skin: Warm and dry. Normal turgor. No rash. Palpitation: Normal elasticity for age Abdomen: Abdomen is soft. Bowel sounds +. There is no abdominal tenderness, no guarding/rigidity or organomegaly Psych: lack insight and normal affect MSK: no joint tenderness or swelling. Digits and nails normal, no deformity : kidney or bladder not palpable Access: AVF Labs/imaging reviewed. Past medical history, past surgical history, family history, social history, allergy reviewed and noted as below Objective - Vital Signs/Intake and Output Vital Signs (last 24 hours): Temp Pulse Resp BP Pulse Ox 98.4 F 85 20 122/66 97 10/18/17 16:37 10/18/17 16:37 10/18/17 16:37 10/18/17 16:37 10/18/17 16:37 - Medications Medications: Current Medications Acetaminophen (Tylenol 325mg Tab) 650 mg PO Q6 PRN PRN Reason: Pain, moderate (4-7) Last Admin: 10/18/17 13:48 Dose: 650 mg Amlodipine Besylate (Norvasc) 10 mg PO DAILY [facility] Last Admin: 10/18/17 08:03 Dose: 10 mg Atorvastatin Calcium (Lipitor) 20 mg PO DAILY [facility] Last Admin: 10/18/17 08:03 Dose: 20 mg Calcium Carbonate (Oscal) 500 mg PO TID [facility] Last Admin: 10/18/17 13:49 Dose: 500 mg Docusate Sodium (Colace) 100 mg PO BID [facility] Last Admin: 10/18/17 08:02 Dose: 100 mg Hydralazine HCl (Apresoline) 50 mg PO Q12 [facility] Last Admin: 10/18/17 08:02 Dose: 50 mg Labetalol HCl (Trandate) 100 mg PO BID [facility] Last Admin: 10/18/17 08:03 Dose: 100 mg Lisinopril (Zestril) 5 mg PO DAILY [facility] Last Admin: 10/18/17 08:04 Dose: 5 mg Pantoprazole Sodium (Protonix Ec Tab) 40 mg PO DAILY [facility] Last Admin: 10/18/17 15:25 Dose: 40 mg Vitamin B Complex/Vit C/Folic Acid (Nephro-Valentino) 1 tab PO DAILY [facility] Last Admin: 10/18/17 08:03 Dose: 1 tab - Labs Labs: 10/18/17 05:30 10/18/17 05:30
--- NOTE | 2017-10-18 17:15 | CP.PCM.PN ---
Subjective - Date & Time of Evaluation Date of Evaluation: 10/18/17 Time of Evaluation: 13:00 - Subjective Subjective: F/U ESRD Breathing better , no C/P , c of back pain , heartburn with "gas" Objective - Vital Signs/Intake and Output Vital Signs (last 24 hours): Temp Pulse Resp BP Pulse Ox 98.4 F 85 20 122/66 97 10/18/17 16:37 10/18/17 16:37 10/18/17 16:37 10/18/17 16:37 10/18/17 16:37 - Medications Medications: Current Medications Acetaminophen (Tylenol 325mg Tab) 650 mg PO Q6 PRN PRN Reason: Pain, moderate (4-7) Last Admin: 10/18/17 13:48 Dose: 650 mg Amlodipine Besylate (Norvasc) 10 mg PO DAILY [facility] Last Admin: 10/18/17 08:03 Dose: 10 mg Atorvastatin Calcium (Lipitor) 20 mg PO DAILY [facility] Last Admin: 10/18/17 08:03 Dose: 20 mg Calcium Carbonate (Oscal) 500 mg PO TID [facility] Last Admin: 10/18/17 13:49 Dose: 500 mg Docusate Sodium (Colace) 100 mg PO BID [facility] Last Admin: 10/18/17 08:02 Dose: 100 mg Hydralazine HCl (Apresoline) 50 mg PO Q12 [facility] Last Admin: 10/18/17 08:02 Dose: 50 mg Labetalol HCl (Trandate) 100 mg PO BID [facility] Last Admin: 10/18/17 08:03 Dose: 100 mg Lisinopril (Zestril) 5 mg PO DAILY [facility] Last Admin: 10/18/17 08:04 Dose: 5 mg Pantoprazole Sodium (Protonix Ec Tab) 40 mg PO DAILY [facility] Last Admin: 10/18/17 15:25 Dose: 40 mg Vitamin B Complex/Vit C/Folic Acid (Nephro-Valentino) 1 tab PO DAILY [facility] Last Admin: 10/18/17 08:03 Dose: 1 tab - Labs Labs: 10/18/17 05:30 10/18/17 05:30 - Constitutional Appears: Chronically Ill - Head Exam Head Exam: NORMAL INSPECTION - Eye Exam Eye Exam: PERRL - ENT Exam ENT Exam: Normal Exam - Neck Exam Neck Exam: Normal Inspection - Respiratory Exam Respiratory Exam: NORMAL BREATHING PATTERN - Cardiovascular Exam Cardiovascular Exam: REGULAR RHYTHM - GI/Abdominal Exam GI & Abdominal Exam: Soft, Normal Bowel Sounds - Extremities Exam Extremities Exam: Normal Inspection - Back Exam Back Exam: NORMAL INSPECTION - Neurological Exam Neurological Exam: Awake Additional comments: O x2, confused. - Psychiatric Exam Psychiatric exam: Anxious - Skin Skin Exam: Normal Color, Warm Assessment and Plan (1) ESRD (end stage renal disease) Status: Chronic (2) CHF exacerbation Status: Acute (3) Accelerated hypertension Status: Acute (4) Dyslipidemia Status: Chronic (5) Constipation Status: Chronic - Assessment and Plan (Free Text) Plan: BP control , continue dialysis , f/u ECHO
--- NOTE | 2017-10-18 18:13 | CP.PCM.CON ---
History of Present Illness - History of Present Illness History of Present Illness: PT IS A 77 Y/O ADMITTED FOR DYSPNEA ON EXERTION. PT HAS ESRD AND REFUSES HD. PER PATIENT AND DAUGHTER SHE WENT 5 MONTHS WITHOUT HD. ABOUT 3 WEEKS AGO SHE BEGAN BECOMING DYSPNIC. SHE WAS ADMITTED AND DIURESED, AFTER D/C SHE CONTINUED SKIPPING HD AND NEEDED READMISSION. PT REFUSED ECHO TODAY. DENIES ANY DYSPNEA, ORTHOPNEA, PND, IRIS, CP OR PALP. PT STILL MAKES URINE. HAD HD SEVERAL DAYS AGO AND SYMPTOMS IMPROVED. Review of Systems - Constitutional Constitutional: As Per HPI. absent: Anorexia, Chills, Daytime Sleepiness, Excessive Sweating, Fatigue, Fever, Frequent Falls, Headache, Increased Appetite , Lethargy, Malaise, Night Sweats, Snoring, Sleep Apnea, Weight Gain, Weight Loss, Weakness, Other - EENT Eyes: As Per HPI. absent: Blind Spots, Blurred Vision, Change in Vision, Decreased Night Vision, Diplopia, Discharge, Dry Eye, Exophthalmos, Floaters, Irritation, Itchy Eyes, Loss of Peripheral Vision, Pain, Photophobia, Requires Corrective Lenses, Sees Flashes, Spots in Vision, Tunnel Vision, Other Visual Disturbances, Loss of Vision, Other Ears: As Per HPI. absent: Decreased Hearing, Ear Discharge, Ear Pain, Tinnitus , Abnormal Hearing, Disequilibrium, Dizziness, Other Nose/Mouth/Throat: As Per HPI. absent: Epistaxis, Nasal Congestion, Nasal Discharge, Nasal Obstruction, Nasal Trauma, Nose Pain, Post Nasal Drip, Sinus Pain, Sinus Pressure, Bleeding Gums, Change in Voice, Dental Pain, Dry Mouth, Dysphagia, Halitosis, Hoarsness, Lip Swelling, Mouth Lesions, Mouth Pain, Odynophagia, Sore Throat, Throat Swelling, Tongue Swelling, Facial Pain, Neck Pain, Neck Mass, Other - Breasts Breasts: As Per HPI. absent: Change in Shape, Mass, Pain, Nipple Discharge, Nipple Inversion, Skin Changes, Swelling, Other - Cardiovascular Cardiovascular: As Per HPI. absent: Acrocyanosis, Chest Pain, Chest Pain at Rest, Chest Pain with Activity, Claudication, Diaphoresis, Dyspnea, Dyspnea on Exertion, Edema, Irregular Heart Rhythm, Pain Radiating to Arm/Neck/Jaw, Leg Edema, Leg Ulcers, Lightheadedness, Orthopnea, Palpitations, Paroxysmal Nocturnal Dyspnea, Pedal Edema, Radiating Pain, Rapid Heart Rate, Slow Heart Rate, Syncope, Other - Respiratory Respiratory: As Per HPI, Dyspnea, Dyspnea on Exertion. absent: Cough, Hemoptysis, Wheezing, Snoring, Stridor, Pain on Inspiration, Chest Congestion, Excessive Mucous Production, Change in Mucous Color, Pain with Coughing, Other - Gastrointestinal Gastrointestinal: As Per HPI. absent: Abdominal Pain, Belching, Bloating, Change in Bowel Habits, Change in Stool Character, Coffee Ground Emesis, Constipation, Cramping, Diarrhea, Dyspepsia, Dysphagia, Early Satiety, Excessive Flatus, Fecal Incontinence, Heartburn, Hematemesis, Hematochezia, Loose Stools, Melena, Nausea, Odynophagia, Temesmus, Vomiting, Other - Genitourinary Genitourinary: As Per HPI. absent: Change in Urinary Stream, Difficulty Urinating, Dysuria, Flank Pain, Hematuria, Pyuria, Nocturia, Urinary Incontinence, Urinary Frequency, Urinary Hesitance, Urinary Urgency, Voiding Freq/Small Amts, Freq UTI, Hx Renal/Bladder Calculi, Hx /Renal Surgery, Bladder Distension, Other - Reproductive: Female Reproductive:Female: As Per HPI. absent: Amenorrhea, Amenorrhea/ Control, Currently Menstual, Cycle <21 Days, Cycle >35 Days, Cycle Variable, Menses 1-7 Days, Menses >/= 8 Days, Menses Variable, Cycle > 4 Weeks Between, No Menses for 6 Months, Heavy Menses, Light Menses, Normal Menses, Spotting Between Cycles , S/P Hysterectomy, Menopausal, Post Menopausal, Premenarche, Abnormal Vaginal Bleeding, Dysmenorrhea, Dyspareunia, Genital Lesions, Genital Pruritis, Pelvic Pain, Prolapse Symptoms, Sexual Dysfunction, Vaginal Discharge, Vaginal Dryness , Vaginal Odor, Vaginal Pruritis, Other - Menstruation Menstruation: As Per HPI. absent: Amenorrhea, Amenorrhea/ Control, Currently Menstual, Cycle <21 Days, Cycle >35 Days, Cycle Variable, Menses 1-7 Days, Menses >/= 8 Days, Menses Variable, Cycle > 4 Weeks Between, No Menses for 6 Months, Heavy Menses, Light Menses, Normal Menses, Spotting Between Cycles , S/P Hysterectomy, Menopausal, Post Menopausal, Premenarche, Abnormal Vaginal Bleeding, Dysmenorrhea, Other - Musculoskeletal Musculoskeletal: As Per HPI. absent: Abnormal Gait, Arthralgias, Atrophy, Back Pain, Deformity, Joint Swelling, Limited Range of Motion, Loss of Height, Muscle Cramps, Muscle Weakness, Myalgias, Neck Pain, Numbness, Radiating Pain into Limb, Stiffness, Tingling, Other - Integumentary Integumentary: As Per HPI. absent: Acne, Alopecia, Bleeding Lesions, Change in Hair, Change in Nails, Change in Pigmentation, Changing Lesions, Dry Skin, Erythema, Furuncle, Hirsutism, Lesions, New Lesions, Non-Healing Lesions, Photosensitivity, Pruritus, Rash, Skin Pain, Skin Ulcer, Sores, Striae, Swelling , Unusual Bruising, Wounds, Jaundice, Other - Neurological Neurological: As Per HPI. absent: Abnormal Gait, Abnormal Hearing, Abnormal Movements, Abnormal Speech, Behavioral Changes, Burning Sensations, Confusion, Convulsions, Disequilibrium, Dizziness, Numbness, Focal Weakness, Frequent Falls , Headaches, Lack of Coordination, Loss of Vision, Memory Loss, Paresthesias, Radicular Pain, Restless Legs, Sensory Deficit, Syncope, Tingling, Tremor, Vertigo, Weakness, Other Visual Disturbances, Other - Psychiatric Psychiatric: As Per HPI. absent: Abnormal Sleep Pattern, Anhedonia, Anxiety, Auditory Hallucinations, Behavioral Changes, Change in Appetite, Change in Libido, Confusion, Depression, Difficulty Concentrating, Hallucinations, Homicidal Ideation, Hopelessness, Irritability, Memory Loss, Mood Swings, Panic Attacks, Paranoia, Suicidal Ideation, Visual Hallucinations, Tactile Hallucinations, Other - Endocrine Endocrine: As Per HPI. absent: Change in Body Appearance, Change in Libido, Cold Intolorance, Deepening of Voice, Excessive Sweating, Fatigue, Flushing, Heat Intolorance, Increase in Ring/Shoe/Hat Size, Palpitations, Polydipsia, Polyphagia, Polyuria, Other - Hematologic/Lymphatic Hematologic: As Per HPI. absent: Easy Bleeding, Easy Bruising, Lymphadenopathy , Other Past Patient History - Infectious Disease Hx of Infectious Diseases: None - Tetanus Immunizations Tetanus Immunization: Unknown - Past Medical History & Family History Past Medical History?: Yes - Past Social History Smoking Status: Never Smoked Chewing Tobacco Use: No Cigar Use: No Alcohol: None Drugs: Denies Home Situation {Lives}: With Family Domestic Violence: Negative - CARDIAC Hx Cardiac Disorders: Yes Hx Congestive Heart Failure: Yes Hx Hypercholesterolemia: Yes Hx Hypertension: Yes - PULMONARY Hx Respiratory Disorders: Yes Hx Pneumonia: Yes - NEUROLOGICAL Hx Neurological Disorder: Yes Hx Alzheimer's Disease: Yes Hx Dementia: Yes Hx Migraine: Yes - HEENT Hx HEENT Problems: No - RENAL Hx Chronic Kidney Disease: Yes Hx Kidney Stones: Yes - ENDOCRINE/METABOLIC Hx Endocrine Disorders: No - HEMATOLOGICAL/ONCOLOGICAL Hx Blood Disorders: Yes Hx Anemia: Yes - INTEGUMENTARY Hx Dermatological Problems: No - MUSCULOSKELETAL/RHEUMATOLOGICAL Hx Musculoskeletal Disorders: No Hx Falls: No - GASTROINTESTINAL Hx Gastrointestinal Disorders: Yes Hx Diverticulitis: Yes - GENITOURINARY/GYNECOLOGICAL Hx Genitourinary Disorders: Yes - PSYCHIATRIC Hx Psychophysiologic Disorder: Yes Hx Anxiety: Yes Hx Schizophrenia: No Hx Substance Use: No - SURGICAL HISTORY Hx Surgeries: Yes Hx Appendectomy: Yes Hx Tonsillectomy: Yes - ANESTHESIA Hx Anesthesia: Yes Hx Anesthesia Reactions: No Hx Malignant Hyperthermia: No Meds Allergies/Adverse Reactions: Allergies Allergy/AdvReac Type Severity Reaction Status Date / Time No Known Allergies Allergy Verified 10/16/17 10:20 - Medications Medications: Current Medications Acetaminophen (Tylenol 325mg Tab) 650 mg PO Q6 PRN PRN Reason: Pain, moderate (4-7) Last Admin: 10/18/17 13:48 Dose: 650 mg Amlodipine Besylate (Norvasc) 10 mg PO DAILY [facility] Last Admin: 10/18/17 08:03 Dose: 10 mg Atorvastatin Calcium (Lipitor) 20 mg PO DAILY [facility] Last Admin: 10/18/17 08:03 Dose: 20 mg Calcium Carbonate (Oscal) 500 mg PO TID [facility] Last Admin: 10/18/17 17:33 Dose: 500 mg Docusate Sodium (Colace) 100 mg PO BID [facility] Last Admin: 10/18/17 17:33 Dose: 100 mg Hydralazine HCl (Apresoline) 50 mg PO Q12 [facility] Last Admin: 10/18/17 08:02 Dose: 50 mg Labetalol HCl (Trandate) 100 mg PO BID [facility] Last Admin: 10/18/17 17:34 Dose: 100 mg Lisinopril (Zestril) 5 mg PO DAILY [facility] Last Admin: 10/18/17 08:04 Dose: 5 mg Pantoprazole Sodium (Protonix Ec Tab) 40 mg PO DAILY [facility] Last Admin: 10/18/17 15:25 Dose: 40 mg Vitamin B Complex/Vit C/Folic Acid (Nephro-Valentino) 1 tab PO DAILY [facility] Last Admin: 10/18/17 08:03 Dose: 1 tab Physical Exam - Constitutional Appears: Well - Head Exam Head Exam: ATRAUMATIC, NORMAL INSPECTION, NORMOCEPHALIC - Eye Exam Eye Exam: EOMI, Normal appearance, PERRL. absent: Conjunctival injection, Nystagmus, Periorbital swelling, Periorbital tenderness, Scleral icterus Pupil Exam: NORMAL ACCOMODATION, PERRL. absent: Fixed, Irregular, Miosis, Mydriatic, Unequal - ENT Exam ENT Exam: Mucous Membranes Moist, Normal Exam. absent: Mucous Membranes Dry, Normal External Ear Exam, Normal Oropharynx, TM's Normal Bilaterally - Neck Exam Neck exam: Positive for: Normal Inspection. Negative for: Full Rom, Lymphadenopathy, Meningismus, Tenderness, Thyromegaly - Respiratory Exam Respiratory Exam: Clear to Auscultation Bilateral, NORMAL BREATHING PATTERN. absent: Accessory Muscle Use, Chest Wall Tenderness, Decreased Breath Sounds, Prolonged Expiratory Phase, Rales, Rhonchi, Wheezes, Respiratory Distress, Stridor - Cardiovascular Exam Cardiovascular Exam: REGULAR RHYTHM, +S1, +S2, Systolic Murmur. absent: Bradycardia, Tachycardia, Clicks, Diastolic murmur, Gallop, Irregular Rhythm, JVD, RRR, Rubs, +S4 Additional comments: [facility] 3/ - GI/Abdominal Exam GI & Abdominal Exam: Normal Bowel Sounds, Soft. absent: Bruit, Diminished Bowel Sounds, Distended, Firm, Guarding, Hernia, Hyperactive Bowel Sounds, Hypoactive Bowel Sounds, Mass, Organomegaly, Pulsatile Mass, Rebound, Rigid, Tenderness - Rectal Exam Rectal Exam: Deferred - Extremities Exam Extremities exam: Positive for: pedal edema, pedal pulses present. Negative for : calf tenderness, full ROM, joint swelling, normal capillary refill, normal inspection, tenderness - Back Exam Back exam: NORMAL INSPECTION. absent: CVA tenderness (L), CVA tenderness (R), FULL ROM, muscle spasm, paraspinal tenderness, rash noted, tenderness, vertebral tenderness - Neurological Exam Neurological exam: Alert, CN II-XII Intact, Normal Gait, Oriented x3, Reflexes Normal - Psychiatric Exam Psychiatric exam: Normal Affect, Normal Mood - Skin Skin Exam: Dry, Intact, Normal Color, Warm Results - Vital Signs Recent Vital Signs: Last Vital Signs Temp 98.4 F 10/18/17 16:37 Pulse 85 10/18/17 16:37 Resp 20 10/18/17 16:37 BP 122/66 10/18/17 16:37 Pulse Ox 97 10/18/17 16:37 - Labs Result Diagrams: 10/18/17 05:30 10/18/17 05:30 Labs: Laboratory Results - last 24 hr 10/18/17 10/18/17 05:30 05:30 WBC 4.6 L RBC 3.32 L Hgb 10.0 L Hct 29.6 L MCV 89.3 MCH 30.3 MCHC 33.9 RDW 12.7 Plt Count 99 L D MPV 11.5 Neut % (Auto) 47.4 L Lymph % (Auto) 25.3 [place] % (Auto) 17.4 H Eos % (Auto) 8.5 H Baso % (Auto) 1.4 Neut # (Auto) 2.2 Lymph # (Auto) 1.2 [place] # (Auto) 0.8 Eos # (Auto) 0.4 Baso # (Auto) 0.1 Sodium 133 Potassium 3.8 Chloride 93 L Carbon Dioxide 27 Anion Gap 17 BUN 30 H Creatinine 3.2 H Est GFR ( Amer) 17 Est GFR (Non-Af Amer) 14 Random Glucose 98 Calcium 8.9 - EKG Data EKG Interpreted by: Myself EKG shows normal: Sinus rhythm Rate: Normal Assessment & Plan (1) Acute on chronic renal failure Status: Acute (2) Volume overload Status: Acute (3) Noncompliance of patient with renal dialysis Status: Acute (4) Noncompliance with diagnostic test Status: Acute (5) CHF exacerbation Status: Acute Priority: High Comment: DUE TO VOLUME OVERLOAD (6) CKD (chronic kidney disease) Status: Chronic (7) Systolic murmur Status: Acute (8) HTN (hypertension) Status: Chronic Priority: High - Assessment and Plan (Free Text) Plan: PT REFUSED ECHO, HER MURMUR IS C/W (GRADE MILD TO MOD). PT SHOULD CONTINUE BP MEDS. i WILL DEFER TO NEPHROLOGY IF PT SHOULD BE D/C ON DIURETICS. CURRENTLY CHF IS COMPENSATED.
[2017-10-19] MEDS: Pantoprazole 40 mg EC Tab PO SCH (09:00)
[2017-10-19] MEDS: Multivitamin Vitamin B Complex (Nephro-Vite) Tab PO SCH (09:00)
--- NOTE | 2017-10-19 10:32 | CP.PCM.PN ---
Subjective - Date & Time of Evaluation Date of Evaluation: 10/19/17 Time of Evaluation: 10:30 - Subjective Subjective: Dialysis note She was seen on hemodialysis now. Patient is awake and conscious not in any acute distress. Vital signs reported to be stable No chest pain but complaining of shortness of breath Objective - Vital Signs/Intake and Output Vital Signs (last 24 hours): Temp Pulse Resp BP Pulse Ox 98.3 F 81 20 126/60 98 10/19/17 08:24 10/19/17 08:24 10/19/17 08:24 10/19/17 09:41 10/19/17 08:24 - Medications Medications: Current Medications Acetaminophen (Tylenol 325mg Tab) 650 mg PO Q6 PRN PRN Reason: Pain, moderate (4-7) Last Admin: 10/18/17 13:48 Dose: 650 mg Amlodipine Besylate (Norvasc) 10 mg PO DAILY [facility] Last Admin: 10/18/17 08:03 Dose: 10 mg Atorvastatin Calcium (Lipitor) 20 mg PO DAILY [facility] Last Admin: 10/18/17 08:03 Dose: 20 mg Calcium Carbonate (Oscal) 500 mg PO TID [facility] Last Admin: 10/18/17 17:33 Dose: 500 mg Docusate Sodium (Colace) 100 mg PO BID [facility] Last Admin: 10/18/17 17:33 Dose: 100 mg Hydralazine HCl (Apresoline) 50 mg PO Q12 [facility] Last Admin: 10/19/17 09:41 Dose: Not Given Labetalol HCl (Trandate) 100 mg PO BID [facility] Last Admin: 10/18/17 17:34 Dose: 100 mg Lisinopril (Zestril) 5 mg PO DAILY [facility] Last Admin: 10/18/17 08:04 Dose: 5 mg Pantoprazole Sodium (Protonix Ec Tab) 40 mg PO DAILY [facility] Last Admin: 10/18/17 15:25 Dose: 40 mg Vitamin B Complex/Vit C/Folic Acid (Nephro-Valentino) 1 tab PO DAILY [facility] Last Admin: 10/18/17 08:03 Dose: 1 tab - Labs Labs: 10/18/17 05:30 10/18/17 05:30 - Constitutional Appears: No Acute Distress - Eye Exam Eye Exam: Conjunctival injection - ENT Exam ENT Exam: Mucous Membranes Moist - Neck Exam Neck Exam: absent: Lymphadenopathy - Respiratory Exam Respiratory Exam: NORMAL BREATHING PATTERN. absent: Chest Wall Tenderness - Cardiovascular Exam Cardiovascular Exam: absent: JVD, Rubs - GI/Abdominal Exam GI & Abdominal Exam: Soft, Normal Bowel Sounds - Extremities Exam Extremities Exam: absent: Calf Tenderness - Back Exam Back Exam: absent: CVA tenderness (L), CVA tenderness (R) - Neurological Exam Neurological Exam: Alert - Psychiatric Exam Psychiatric exam: Anxious - Skin Skin Exam: absent: Cyanosis Assessment and Plan (1) CHF exacerbation Status: Acute (2) CKD (chronic kidney disease) Assessment & Plan: End stage renal disease receiving hemodialysis now discussed with the dialysis nurse at the bedside. Sodium bath 143 mEq K bath 3 meq bicarbo. bath 34 UF about 1500cc Patient has been noncompliance or congestive heart failure improved with dialysis. Follow-up serum phosphorus and PTH Status: Chronic (3) Accelerated hypertension Status: Acute
--- NOTE | 2017-10-19 16:35 | CP.PCM.PN ---
Subjective - Date & Time of Evaluation Date of Evaluation: 10/19/17 Time of Evaluation: 11:00 - Subjective Subjective: F/U CHF exacerbation/ ESRD Pt doing well, no c/o, no SOB, no CP. Objective - Vital Signs/Intake and Output Vital Signs (last 24 hours): Temp Pulse Resp BP Pulse Ox 98.2 F 82 20 117/46 L 97 10/19/17 16:05 10/19/17 16:05 10/19/17 16:05 10/19/17 16:05 10/19/17 16:05 - Medications Medications: Current Medications Acetaminophen (Tylenol 325mg Tab) 650 mg PO Q6 PRN PRN Reason: Pain, moderate (4-7) Last Admin: 10/19/17 11:26 Dose: 650 mg Amlodipine Besylate (Norvasc) 10 mg PO DAILY [facility] Last Admin: 10/19/17 16:30 Dose: Not Given Atorvastatin Calcium (Lipitor) 20 mg PO DAILY [facility] Last Admin: 10/19/17 09:00 Dose: 20 mg Calcium Carbonate (Oscal) 500 mg PO TID [facility] Last Admin: 10/19/17 16:31 Dose: 500 mg Docusate Sodium (Colace) 100 mg PO BID [facility] Last Admin: 10/19/17 16:28 Dose: 100 mg Hydralazine HCl (Apresoline) 50 mg PO Q12 [facility] Last Admin: 10/19/17 09:41 Dose: Not Given Labetalol HCl (Trandate) 100 mg PO BID [facility] Last Admin: 10/19/17 16:32 Dose: 100 mg Lisinopril (Zestril) 5 mg PO DAILY [facility] Last Admin: 10/19/17 16:33 Dose: Not Given Pantoprazole Sodium (Protonix Ec Tab) 40 mg PO DAILY [facility] Last Admin: 10/19/17 09:00 Dose: 40 mg Vitamin B Complex/Vit C/Folic Acid (Nephro-Valentino) 1 tab PO DAILY [facility] Last Admin: 10/19/17 09:00 Dose: 1 tab - Labs Labs: 10/18/17 05:30 10/18/17 05:30 - Head Exam Head Exam: NORMAL INSPECTION - Eye Exam Eye Exam: PERRL - ENT Exam ENT Exam: Normal Exam - Neck Exam Neck Exam: Normal Inspection - Respiratory Exam Respiratory Exam: Decreased Breath Sounds (at bases) - Cardiovascular Exam Cardiovascular Exam: REGULAR RHYTHM - GI/Abdominal Exam GI & Abdominal Exam: Soft, Normal Bowel Sounds - Back Exam Back Exam: tenderness - Neurological Exam Neurological Exam: Alert, CN II-XII Intact, Oriented x3 Additional comments: no focal motor/sensory deficit - Psychiatric Exam Psychiatric exam: Anxious - Skin Skin Exam: Warm Assessment and Plan (1) ESRD (end stage renal disease) Status: Chronic (2) CHF exacerbation Status: Acute (3) Accelerated hypertension Status: Acute (4) Dyslipidemia Status: Chronic (5) Constipation Status: Chronic - Assessment and Plan (Free Text) Plan: on 4 BP meds, BP control , continue dialysis , f/u ECHO
--- NOTE | 2017-10-19 16:52 | CP.PCM.PN ---
Subjective - Date & Time of Evaluation Date of Evaluation: 10/19/17 Time of Evaluation: 16:52 - Subjective Subjective: no complaints of sob or orthopnea. mild left basilar crackles Objective - Vital Signs/Intake and Output Vital Signs (last 24 hours): Temp Pulse Resp BP Pulse Ox 98.2 F 82 20 117/46 L 97 10/19/17 16:05 10/19/17 16:05 10/19/17 16:05 10/19/17 16:05 10/19/17 16:05 - Medications Medications: Current Medications Acetaminophen (Tylenol 325mg Tab) 650 mg PO Q6 PRN PRN Reason: Pain, moderate (4-7) Last Admin: 10/19/17 11:26 Dose: 650 mg Amlodipine Besylate (Norvasc) 10 mg PO DAILY [facility] Last Admin: 10/19/17 16:30 Dose: Not Given Atorvastatin Calcium (Lipitor) 20 mg PO DAILY [facility] Last Admin: 10/19/17 09:00 Dose: 20 mg Calcium Carbonate (Oscal) 500 mg PO TID [facility] Last Admin: 10/19/17 16:31 Dose: 500 mg Docusate Sodium (Colace) 100 mg PO BID [facility] Last Admin: 10/19/17 16:28 Dose: 100 mg Hydralazine HCl (Apresoline) 50 mg PO Q12 [facility] Last Admin: 10/19/17 09:41 Dose: Not Given Labetalol HCl (Trandate) 100 mg PO BID [facility] Last Admin: 10/19/17 16:32 Dose: 100 mg Lisinopril (Zestril) 5 mg PO DAILY [facility] Last Admin: 10/19/17 16:33 Dose: Not Given Pantoprazole Sodium (Protonix Ec Tab) 40 mg PO DAILY [facility] Last Admin: 10/19/17 09:00 Dose: 40 mg Vitamin B Complex/Vit C/Folic Acid (Nephro-Valentino) 1 tab PO DAILY [facility] Last Admin: 10/19/17 09:00 Dose: 1 tab - Labs Labs: 10/18/17 05:30 10/18/17 05:30 Assessment and Plan (1) Acute on chronic renal failure Status: Acute (2) Volume overload Status: Acute (3) Noncompliance of patient with renal dialysis Status: Acute (4) Noncompliance with diagnostic test Status: Acute (5) CHF exacerbation Status: Acute (6) CKD (chronic kidney disease) Status: Chronic (7) Systolic murmur Status: Acute (8) HTN (hypertension) Status: Chronic - Assessment and Plan (Free Text) Plan: pt stable from cardiac perspective.
--- NOTE | 2017-10-19 17:37 | CARD ---
APPROVED REPORT EXAM: Two-dimensional and M-mode echocardiogram with Doppler and color Doppler. Other Information Quality : GoodRhythm : NSR INDICATION Congestive Heart Failure 2D DIMENSIONS IVSd0.85 (0.7-1.1cm)LVDd5.89 (3.9-5.9cm) LVOT Diameter1.97 (1.8-2.4cm)PWd1.52 (0.7-1.1cm) IVSs1.57 (0.8-1.2cm)LVDs3.51 (2.5-4.0cm) FS (%) 40.4 %PWs2.09 (0.8-1.2cm) M-Mode DIMENSIONS Left Atrium (MM)4.71 (2.5-4.0cm)IVSd1.15 (0.7-1.1cm) Aortic Root2.62 (2.2-3.7cm)LVDd4.97 (4.0-5.6cm) Aortic Cusp Exc.1.09 (1.5-2.0cm)PWd1.53 (0.7-1.1cm) IVSs1.82 cmFS (%) 18 % LVDs4.06 (2.0-3.8cm)PWs1.68 cm Aortic Valve AoV Peak Rvlywyrm320.7cm/sAoV VTI63.0cmAO Peak GR.36mmHg LVOT Peak Izzawyjc988.8cm/sLVOT VTI29.94cmAO Mean GR.22mmHg EVAN (VMAX)0.94ws9PQC (VTI)0.88cm2 Mitral Valve MV E Ntsxxplc699.0cm/sMV DECEL [id number] A Qgjuedig375.3cm/s MV IZS50jtK/A ratio0.9MVA (PHT)3.78cm2 TDI Lateral E' Peak V5.05cm/sMedial E' Peak V3.42cm/sE/Lateral E'24.0 E/Medial E'35.4 Tricuspid Valve TR Peak Oyxooeod598bs/sRAP IWSXQYYE32ogUgIT Peak Gr.37mmHg ZRND37mhXt LEFT VENTRICLE The left ventricle is normal size. There is moderate concentric left ventricular hypertrophy. The left ventricular function is low normal. The left ventricular ejection fraction is 50% There is normal LV segmental wall motion. Tissue Doppler imaging reveals abnormal left ventricular diastolic dysfunction. Transmitral Doppler flow pattern is Grade I-abnormal relaxation pattern. No left ventricle thrombus noted on this study. There is no ventricular septal defect visualized. There is no left ventricular aneurysm. There is no mass noted in the left ventricle. RIGHT VENTRICLE The right ventricle is normal size. There is normal right ventricular wall thickness. The right ventricular systolic function is normal. ATRIA The left atrium is moderately dilated. The right atrium size is normal. The interatrial septum is intact with no evidence for an atrial septal defect. AORTIC VALVE The aortic valve is moderately to severely calcified. No aortic regurgitation is present. There is moderate valvular aortic stenosis. Calculated aortic valve area is 1.0 cm2 with maximum pressure gradient of 37 mmHg and mean pressure gradient of 21 mmHg. There is no aortic valvular vegetation. MITRAL VALVE Mitral annular calcification is severe. There is no evidence of mitral valve prolapse. There is no mitral valve stenosis. Mitral regurgitation is mild. TRICUSPID VALVE The tricuspid valve is normal in structure. There is moderate tricuspid regurgitation. Right ventricular systolic pressure is estimated at 40-50 mmHg. There is no tricuspid valve prolapse or vegetation. There is no tricuspid valve stenosis. PULMONIC VALVE The pulmonary valve is normal in structure. There is no pulmonic valvular regurgitation. GREAT VESSELS The aortic root is normal in size. The ascending aorta is normal in size. The IVC is normal in size and collapses >50% with inspiration. PERICARDIAL EFFUSION The pericardium appears normal. There is no pleural effusion. <Conclusion> Low Normal LV systolic function LVEF 50% Moderate Aortic Stenosis EVAN 1.0 cm2 Concentric LVH Left Atrial Enlargement Mild Mitral Regurgitation
[2017-10-20] MEDS: Multivitamin Vitamin B Complex (Nephro-Vite) Tab PO SCH (09:43)
[2017-10-20] MEDS: Pantoprazole 40 mg EC Tab PO SCH (09:43)
[2017-10-20 12:41] VITALS: RESP 16
[2017-10-20] MEDS ORDERED: Bacitracin OINT 15GM TOP SCH (16:00)
--- NOTE | 2017-10-20 16:03 | CP.PCM.DIS ---
Provider - Provider Date of Admission: 10/16/17 12:41 Attending physician: Cedric Dooley MD Diagnosis - Discharge Diagnosis (1) ESRD (end stage renal disease) Status: Chronic Priority: High (2) CHF exacerbation Status: Acute Priority: High (3) Accelerated hypertension Status: Acute (4) Dyslipidemia Status: Chronic Priority: Medium (5) Constipation Status: Chronic Priority: Medium Hospital Course - Lab Results Lab Results: Most Recent Lab Values WBC 4.6 K/uL (4.8-10.8) L 10/18/17 05:30 RBC 3.32 Mil/uL (3.80-5.20) L 10/18/17 05:30 Hgb 10.0 g/dL (12.0-16.0) L 10/18/17 05:30 Hct 29.6 % (34.0-47.0) L 10/18/17 05:30 MCV 89.3 fl (81.0-99.0) 10/18/17 05:30 MCH 30.3 pg (27.0-31.0) 10/18/17 05:30 MCHC 33.9 g/dL (33.0-37.0) 10/18/17 05:30 RDW 12.7 % (11.5-14.5) 10/18/17 05:30 Plt Count 99 K/uL (130-400) L D 10/18/17 05:30 MPV 11.5 fl (7.2-11.7) 10/18/17 05:30 Neut % (Auto) 47.4 % (50.0-75.0) L 10/18/17 05:30 Lymph % (Auto) 25.3 % (20.0-40.0) 10/18/17 05:30 [place] % (Auto) 17.4 % (0.0-10.0) H 10/18/17 05:30 Eos % (Auto) 8.5 % (0.0-4.0) H 10/18/17 05:30 Baso % (Auto) 1.4 % (0.0-2.0) 10/18/17 05:30 Neut # (Auto) 2.2 K/uL (1.8-7.0) 10/18/17 05:30 Lymph # (Auto) 1.2 K/uL (1.0-4.3) 10/18/17 05:30 [place] # (Auto) 0.8 K/uL (0.0-0.8) 10/18/17 05:30 Eos # (Auto) 0.4 K/uL (0.0-0.7) 10/18/17 05:30 Baso # (Auto) 0.1 K/uL (0.0-0.2) 10/18/17 05:30 Sodium 133 mmol/l (132-148) 10/18/17 05:30 Potassium 3.8 MMOL/L (3.6-5.0) 10/18/17 05:30 Chloride 93 mmol/L (98-107) L 10/18/17 05:30 Carbon Dioxide 27 mmol/L (22-30) 10/18/17 05:30 Anion Gap 17 (10-20) 10/18/17 05:30 BUN 30 mg/dl (7-17) H 10/18/17 05:30 Creatinine 3.2 mg/dl (0.7-1.2) H 10/18/17 05:30 Est GFR ( Amer) 17 10/18/17 05:30 Est GFR (Non-Af Amer) 14 10/18/17 05:30 Random Glucose 98 mg/dL (65-105) 10/18/17 05:30 Calcium 8.9 mg/dL (8.4-10.2) 10/18/17 05:30 Phosphorus 2.5 mg/dl (2.5-4.5) 10/19/17 15:48 Total Bilirubin 0.9 mg/dl (0.2-1.3) 10/16/17 11:10 AST 37 U/L (14-36) H D 10/16/17 11:10 ALT 40 U/L (9-52) 10/16/17 11:10 Alkaline Phosphatase 77 U/L (38-126) 10/16/17 11:10 Troponin I 0.0290 ng/mL (0.00-0.120) 10/16/17 11:10 NT-Pro-B Natriuret Pep 66731 pg/ml (0-900) H 10/16/17 11:10 Total Protein 7.5 G/DL (6.3-8.2) 10/16/17 11:10 Albumin 4.4 g/dL (3.5-5.0) 10/16/17 11:10 Globulin 3.1 gm/dL (2.2-3.9) 10/16/17 11:10 Albumin/Globulin Ratio 1.4 (1.0-2.1) 10/16/17 11:10 Hep Bs Antigen Negative (NEGATIVE) 10/17/17 12:20 Discharge Exam - Head Exam Head Exam: NORMAL INSPECTION Discharge Plan - Follow Up Plan Condition: FAIR Disposition: HOME/ ROUTINE Instructions: Heart Failure, Adult (DC), Chronic Kidney Disease (DC) Referrals: Fredis Benedict MD [Staff Provider] - Genaro Martínez MD [Family Provider] - Tati Robert MD [Staff Provider] -
[2017-10-20 16:47] VITALS: BP 122/58; PULSE 86; TEMP 97.1; O2SAT 100
--- NOTE | 2017-10-20 22:23 | CP.PCM.PN ---
Subjective - Date & Time of Evaluation Date of Evaluation: 10/20/17 Time of Evaluation: 11:00 - Subjective Subjective: no events overnight, wants to go home Assessment: End stage renal disease on hemodialysis (MWF) via AVF with missed HD. fluid overload, non compliance Anemia, Hyperphosphatemia, Secondary hyperparathyroidism, HTN, dementia Plan: hd continue MWF. Continue with Nephrovite 1 tab/day. PRBC as needed for anemia.monitor H&H Continue with phos binders, montior phos level BP control with meds as ordered. Glycemic control Physical Examination: General Appearance: Comfortable, in no acute respiratory distress, co-operative . Vitals reviewed and noted as below Head; Atraumatic, normocephalic ENT: no ulcers no thrush. Tongue is midline. Oropharynx: no rash or ulcers. EYES: Eye muscles and extraocular movement intact. Sclera is anicteric. Neck; supple no thyromegaly or bruit Lungs: Normal respiratory rate/effort. Breath sounds bilateral equal and with few basal crackles Heart: Normal rate. s1s2 normal. No rub or gallop. Extremities: no edema. No varicose veins Neurological: Patient is alert, awake and has dementia. No focal deficit. Strength bilateral appropriate and equal Skin: Warm and dry. Normal turgor. No rash. Palpitation: Normal elasticity for age Abdomen: Abdomen is soft. Bowel sounds +. There is no abdominal tenderness, no guarding/rigidity or organomegaly Psych: lack insight and normal affect MSK: no joint tenderness or swelling. Digits and nails normal, no deformity : kidney or bladder not palpable Access: AVF Objective - Vital Signs/Intake and Output Vital Signs (last 24 hours): Temp Pulse Resp BP Pulse Ox 97.1 F L 86 16 122/58 L 100 10/20/17 16:00 10/20/17 16:00 10/20/17 16:00 10/20/17 16:00 10/20/17 16:00 - Labs Labs: 10/18/17 05:30 10/18/17 05:30
[2017-10-21] MEDS ORDERED: Multivitamin Vitamin B Complex (Nephro-Vite) Tab PO SCH (09:00)
--- NOTE | 2017-10-22 15:19 | PQF CHF ---
This form is a permanent part of the medical record DR. EVETTE VILLANUEVA: COULD YOU PLEASE CLARIFY THE TYPE OF CHF IF KNOWN. Clarification of your documentation is requested to better reflect the severity of illness and intensity of treatment of your patient. Indicators present [X] Diagnosis of CHF and/or history of CHF [X] BNP > 200 [] Imaging Finding of Pulmonary Edema /Pleural Effusions [] Fluid/Volume Overload [] Pitting edema [] Ejection Fraction < 40% (Indicative of Systolic Heart Failure) [] Ejection Fraction > 40% (Indicative of Diastolic Heart Failure) [] Dyspnea / Orthopenea / Paroxysmal Nocturnal Dyspnea [] Other: Location in the medical record that reflects the above clinical findings: [] Treatment Provided: [] PHYSICIAN'S RESPONSE Based on your medical judgment of the clinical indicators outlined above, are you treating this patient for a known or suspected: [] Acute CHF [] Systolic [] Diastolic [] Combined [] Chronic CHF [] Systolic [] Diastolic [] Combined [] Acute on Chronic CHF []Systolic [] Diastolic [] Combined [] CHF due hypertension [] Acute systolic []Chronic systolic [] Acute/ chronic systolic [] Other, please indicate: [] [] If Unable to Determine, please check the box, sign and date. Present On Admission (POA) Indicator: [] Present at the time of admission [] Not present at the time of admission [] Clinically Undetermined In responding to this query, please exercise your independent professional judgment. The fact that a question is asked does not imply that any particular answer is desired or expected. Thank you for your clarification on this documentation. If you have any questions please call:[ ] * Thank you, * GEOVANNY CAT [ [phone]] [phone] behavioral health director THERESA
== END 2017-10-20 16:30 | disposition home or self-care (01) | DRG 291 ==
LOC: H.ER 10:09 → H.ERHOLD 12:41 → H.TEL 17:01
PROVIDERS: ADMIT Internal Medicine Pulmonary Disease; ATTEND Internal Medicine Pulmonary Disease
PROC: 5A1D70Z Performance of Urinary Filtration, Intermittent, Less than 6 Hours Per Day (ICD-10-PCS; principal; 2017-10-17)
PROC: 5A1D70Z Performance of Urinary Filtration, Intermittent, Less than 6 Hours Per Day (ICD-10-PCS; 2017-10-19)
DX: I13.2 Hypertensive heart and chronic kidney disease with heart failure and with stage 5 chronic kidney disease, or end stage renal disease (principal); N18.6 End stage renal disease; N17.9 Acute kidney failure, unspecified; N25.81 Secondary hyperparathyroidism of renal origin; D64.9 Anemia, unspecified; E78.00 Pure hypercholesterolemia, unspecified; E78.5 Hyperlipidemia, unspecified; E83.39 Other disorders of phosphorus metabolism; E87.5 Hyperkalemia; F02.80 Dementia in other diseases classified elsewhere, unspecified severity, without behavioral disturbance, psychotic disturbance, mood disturbance, and anxiety; G30.9 Alzheimer's disease, unspecified; I50.9 Heart failure, unspecified; J44.9 Chronic obstructive pulmonary disease, unspecified; K59.00 Constipation, unspecified; Z87.01 Personal history of pneumonia (recurrent); Z87.442 Personal history of urinary calculi; Z90.49 Acquired absence of other specified parts of digestive tract; Z91.15 Patient's noncompliance with renal dialysis; Z91.19 Patient's noncompliance with other medical treatment and regimen; Z99.2 Dependence on renal dialysis; F41.9 Anxiety disorder, unspecified; F45.9 Somatoform disorder, unspecified; G43.909 Migraine, unspecified, not intractable, without status migrainosus; Z79.899 Other long term (current) drug therapy

== ENCOUNTER 2017-11-08 08:28 | Inpatient (IN) | payer MEDICARE ==
[2017-11-08 08:47] VITALS: BMI 17.2
[2017-11-08] MEDS ORDERED: Albuterol-Ipratrop 3 mg / 0.5 (3 ml) UD INH STA (08:54)
[2017-11-08] MEDS ORDERED: Albuterol-Ipratrop 3 mg / 0.5 (3 ml) UD IH STA (08:54)
--- NOTE | 2017-11-08 08:58 | ED PDOC ---
HPI: SOB/CHF/COPD Time Seen by Provider: 11/08/17 08:49 Chief Complaint (Provider): Dyspnea History Per: Patient, Family History/Exam Limitations: no limitations Onset/Duration Of Symptoms: Days (yesterday) Additional Complaint(s): Pt. with dyspnea since yesterday. Missed dialysis Tues and today. Went on Sat. No chest pain, headaches, dizziness, weakness, leg pain, abd pain. No cough. Has had same multiple times. Last admitted 1.[address] Mauricio Schultz: Dr. Benedict Past Medical History Vital Signs: Last Vital Signs Temp 98 F 11/08/17 08:46 Pulse 77 11/08/17 11:31 Resp 14 11/08/17 10:39 BP 201/88 H 11/08/17 11:31 Pulse Ox 94 L 11/08/17 11:31 - Medical History PMH: Alzheimer's Disease, Anemia, Anxiety, CHF, Dementia, HTN, Hypercholesterolemia, Pneumonia, End Stage Renal Disease, Chronic Kidney Disease Denies: Schizophrenia - Surgical History Surgical History: Appendectomy, Tonsillectomy - Family History Family History: States: Unknown Family Hx, Hypertension - Living Arrangements Living Arrangements: With Family - Social History Current smoker - smoking cessation education provided: No Alcohol: None Drugs: Denies - Immunization History Hx Tetanus Toxoid Vaccination: No Hx Influenza Vaccination: No Hx Pneumococcal Vaccination: No - Home Medications Home Medications: Ambulatory Orders Medication Instructions Recorded Atorvastatin [Lipitor] 20 mg PO DAILY 08/16/16 Labetalol [Trandate] 100 mg PO BID 08/16/16 Lisinopril [Zestril] 5 mg PO DAILY 08/16/16 amLODIPine [Norvasc] 10 mg PO DAILY 08/16/16 hydrALAZINE [Apresoline] 50 mg PO BID 08/16/16 B Complex W-C No.20/Folic Acid 1 cap PO DAILY 11/04/16 [Renal Caps Softgel] Acetaminophen [Tylenol 325mg tab] 650 mg PO Q6 PRN tab 09/17/17 Calcium Carbonate [Oscal] 500 mg PO TID 10/16/17 Docusate [Colace LIQUID] 100 mg PO BID PRN 10/16/17 - Allergies Allergies/Adverse Reactions: Allergies Allergy/AdvReac Type Severity Reaction Status Date / Time No Known Allergies Allergy Verified 11/08/17 09:17 Review of Systems ROS Statement: Except As Marked, All Systems Reviewed And Found Negative Respiratory: Positive for: Shortness of Breath Physical Exam - Reviewed Nursing Documentation Reviewed: Yes Vital Signs Reviewed: Yes - Physical Exam Appears: Positive for: Uncomfortable Head Exam: Positive for: ATRAUMATIC, NORMAL INSPECTION, NORMOCEPHALIC Skin: Positive for: Normal Color, Warm, DRY Eye Exam: Positive for: EOMI, Normal appearance, PERRL ENT: Positive for: Normal ENT Inspection Neck: Positive for: Normal, Painless ROM, Supple Cardiovascular/Chest: Positive for: Regular Rate, Rhythm Respiratory: Positive for: Decreased Breath Sounds, Other (coarse sounds b/l bases). Negative for: Accessory Muscle Use Gastrointestinal/Abdominal: Positive for: Normal Exam, Soft. Negative for: Tenderness Back: Positive for: Normal Inspection. Negative for: L CVA Tenderness, R CVA Tenderness Extremity: Positive for: Normal ROM. Negative for: Tenderness, Pedal Edema Neurologic/Psych: Positive for: Alert, Oriented. Negative for: Motor/Sensory Deficits - Laboratory Results Result Diagrams: 11/08/17 09:16 11/08/17 09:16 Interpretation Of Abn Labs: 5.5 k, probnp and cr elevated - ECG ECG: Positive for: Interpreted By Me, Viewed By Me ECG Rhythm: Positive for: Normal QRS, Sinus Rhythm, Nonspecific Changes (same as old) O2 Sat by Pulse Oximetry: 94 Pulse Ox Interpretation: Abnormal Interpretation Of Abnormal: improved to 98% with nasal oxygen - Radiology X-Ray: Read By Radiologist X-Ray Interpretation: Cardiomegaly (vascular congestion) - Progress ED Course And Treament: 1102: Stable. Feeling much better in with bipap. BP remains high. Will give home meds for bp. Pt. did not take meds today. 1127: Stable. Spoke with Dr. Dooley. Will admit. Dr Benedict paged. 1132: Spoke with Dr. Benedict. Will give orders for dialysis when pt. reaches floor. Disposition - Clinical Impression Clinical Impression: CHF exacerbation, Renal failure, Hyperkalemia, Missed dialysis - Patient ED Disposition Is Patient to be Admitted: Yes Counseled Patient/Family Regarding: Studies Performed, Diagnosis - Disposition Disposition Time: 10:45 Condition: FAIR - Pt Status Changed To: Hospital Disposition Of: Inpatient - Admit Certification Admit to Inpatient:: After my assessment, the patient will require hospitalization for at least two midnights. This is because of the severity of symptoms shown, intensity of services needed, and/or the medical risk in this patient being treated as an outpatient. - POA Present On Arrival: None
[2017-11-08 09:27] LABS: BASO # 0.1 K/uL (0.0-0.2); BASO % 1.1 % (0.0-2.0); EOS # 0.2 K/uL (0.0-0.7); EOS % 4.1 % (0.0-4.0); HEMOGLOBIN 11.6 g/dL (12.0-16.0); LYMPH # 0.9 K/uL (1.0-4.3); LYMPH % 15.1 % (20.0-40.0); MEAN CELL VOLUME 90.7 fl (81.0-99.0); MEAN CORPUSCULAR HGB CONC 33.1 g/dL (33.0-37.0); MEAN PLATELET VOLUME 11.7 fl (7.2-11.7); MONO # 0.6 K/uL (0.0-0.8); MONO % 9.4 % (0.0-10.0); NEUT # 4.3 K/uL (1.8-7.0); NEUT % 70.3 % (50.0-75.0); NRBC % 0.2 % (0.0-0.0); RBC 3.87 Mil/uL (3.80-5.20); WHITE BLOOD COUNT 6.1 K/uL (4.8-10.8)
[2017-11-08 09:30] LABS: INR 0.9 (0.9-1.2)
[2017-11-08 09:37] LABS: ALB/GLOB RATIO 1.4 (1.0-2.1); ALBUMIN 4.5 g/dL (3.5-5.0); CALCIUM 9.9 mg/dL (8.4-10.2)
[2017-11-08 09:43] LABS: ABG ALLEN TEST YES; ARTERIAL BLOOD GAS HCO3 20.6 mmol/L (21-28); ARTERIAL BLOOD GAS O2 SAT 100.3 % (95-98); ARTERIAL BLOOD GAS PCO2 50 mm/Hg (35-45); ARTERIAL BLOOD GAS PH 7.25 (7.35-7.45); ARTERIAL BLOOD GAS PO2 432 mm/Hg (80-100); ARTERIAL BLOOD GAS TCO2 23.4 mmol/L (22-28)
[2017-11-08 09:46] LABS: TROPONIN I 0.024 ng/mL (0.00-0.120)
[2017-11-08] MEDS ORDERED: Sod Polystyrene Sulf 15 gm/60 ml Susp PO ONE (11:24)
[2017-11-08] MEDS ORDERED: Insulin Regular 100 units/ml IV STA (11:25)
[2017-11-08] MEDS ORDERED: Dextrose 50% SYRINGE Inj (50 ml) IVP ONE (11:26)
[2017-11-08] MEDS ORDERED: Sod Polystyrene Sulf 15 gm/60 ml Susp ONE ×2 (11:34→11:38)
[2017-11-08] MEDS ORDERED: Insulin Regular 100 units/ml ONE (11:35)
[2017-11-08] MEDS ORDERED: Dextrose 50% SYRINGE Inj (50 ml) ONE (11:35)
--- NOTE | 2017-11-08 11:42 | RAD ---
HISTORY: dyspnea COMPARISON: 10/16/2017 chest x-ray FINDINGS: LUNGS: Pulmonary venous congestion increased since prior exam PLEURA: Small right pleural effusion with or without pleural thickening here -overall appearance similar. No pneumothorax CARDIOVASCULAR: Cardiomegaly-similar. Tortuosity of the thoracic aorta-similar. Atherosclerotic vascular calcifications present. . OSSEOUS STRUCTURES: Thoracic spondylosis. Bilateral shoulder arthrosis VISUALIZED UPPER ABDOMEN: Normal. OTHER FINDINGS: None. IMPRESSION: Cardiomegaly with interval increased pulmonary venous congestion -compatible with CHF. Similar right small pleural effusion with or without pleural thickening
[2017-11-08] MEDS ORDERED: Enalaprilat 2.5 MG/2 ML IVP STA (12:54)
--- NOTE | 2017-11-08 14:45 | CP.PCM.CON ---
History of Present Illness - History of Present Illness History of Present Illness: Patient is a 77 years of age female known to me with end stage renal disease on maintenance hemodialysis however she did not show up for dialysis in the past 2 weeks. And presented to the emergency room with shortness of breath and hyperkalemia. Patient has been having the same problem she did not show up for dialysis and should come every 2 weeks or so position complaining abnormal electrolytes shortness of breath. Past medical history End stage renal disease is refusing dialysis all the time Hypertension Hyperlipidemia Secondary hyperparathyroidism Hyperphosphatemia Social history not contributory her family aware. pt. is not compliance and difficult. Review of Systems - Review of Systems Systems not reviewed;Unavailable: Respiratory Distress - Constitutional Constitutional: Anorexia. absent: Chills - EENT Eyes: As Per HPI Nose/Mouth/Throat: absent: Epistaxis, Nasal Trauma, Post Nasal Drip - Cardiovascular Cardiovascular: Dyspnea, Edema, Leg Edema, Orthopnea. absent: Acrocyanosis - Respiratory Respiratory: Cough, Dyspnea, Dyspnea on Exertion - Gastrointestinal Gastrointestinal: Bloating. absent: Abdominal Pain, Coffee Ground Emesis, Constipation, Diarrhea - Genitourinary Genitourinary: Nocturia - Musculoskeletal Musculoskeletal: Abnormal Gait, Muscle Weakness - Integumentary Integumentary: absent: Alopecia - Neurological Neurological: Abnormal Gait, Numbness - Psychiatric Psychiatric: Confusion, Difficulty Concentrating - Endocrine Endocrine: Fatigue - Hematologic/Lymphatic Hematologic: absent: Easy Bleeding Past Patient History - Infectious Disease Hx of Infectious Diseases: None - Tetanus Immunizations Tetanus Immunization: Unknown - Past Medical History & Family History Past Medical History?: Yes - Past Social History Alcohol: None Drugs: Denies - CARDIAC Hx Congestive Heart Failure: Yes Hx Hypercholesterolemia: Yes Hx Hypertension: Yes - PULMONARY Hx Pneumonia: Yes - NEUROLOGICAL Hx Alzheimer's Disease: Yes Hx Dementia: Yes - HEENT Hx HEENT Problems: No - RENAL Hx Chronic Kidney Disease: Yes - ENDOCRINE/METABOLIC Hx Endocrine Disorders: No - HEMATOLOGICAL/ONCOLOGICAL Hx Anemia: Yes - INTEGUMENTARY Hx Dermatological Problems: No - MUSCULOSKELETAL/RHEUMATOLOGICAL Hx Musculoskeletal Disorders: No Hx Falls: No - GASTROINTESTINAL Hx Gastrointestinal Disorders: Yes - GENITOURINARY/GYNECOLOGICAL Hx Genitourinary Disorders: Yes - PSYCHIATRIC Hx Anxiety: Yes Hx Schizophrenia: No - SURGICAL HISTORY Hx Appendectomy: Yes Hx Tonsillectomy: Yes - ANESTHESIA Hx Anesthesia: Yes Hx Anesthesia Reactions: No Hx Malignant Hyperthermia: No Meds Allergies/Adverse Reactions: Allergies Allergy/AdvReac Type Severity Reaction Status Date / Time No Known Allergies Allergy Verified 11/08/17 09:17 - Medications Medications: Current Medications Acetaminophen (Tylenol 325mg Tab) 650 mg PO Q6 PRN PRN Reason: Headache Amlodipine Besylate (Norvasc) 10 mg PO DAILY [facility] Atorvastatin Calcium (Lipitor) 20 mg PO DAILY [facility] Calcium Carbonate (Oscal) 500 mg PO TID ANKUR Docusate Sodium (Colace) 100 mg PO BID PRN PRN Reason: Constipation Hydralazine HCl (Apresoline) 50 mg PO BID ANK[facility] Labetalol HCl (Trandate) 100 mg PO BID ANKUR Lisinopril (Zestril) 5 mg PO DAILY ANKUR Vitamin B Complex/Vit C/Folic Acid (Nephro-Valentino) 1 tab PO DAILY ANKUR Physical Exam - Constitutional Appears: In Acute Distress - Eye Exam Eye Exam: Conjunctival injection - ENT Exam ENT Exam: Mucous Membranes Moist - Neck Exam Neck exam: Negative for: Lymphadenopathy - Respiratory Exam Respiratory Exam: Respiratory Distress - Cardiovascular Exam Cardiovascular Exam: REGULAR RHYTHM. absent: JVD - GI/Abdominal Exam GI & Abdominal Exam: Normal Bowel Sounds, Soft - Extremities Exam Extremities exam: Positive for: pedal edema. Negative for: calf tenderness - Back Exam Back exam: absent: CVA tenderness (L), CVA tenderness (R) Results - Vital Signs Recent Vital Signs: Last Vital Signs Temp 97.0 F L 11/08/17 12:50 Pulse 91 H 11/08/17 12:50 Resp 20 11/08/17 12:50 BP 188/72 H 11/08/17 13:30 Pulse Ox 98 11/08/17 13:30 - Labs Result Diagrams: 11/08/17 09:16 11/08/17 09:16 Labs: Laboratory Results - last 24 hr 11/08/17 11/08/17 11/08/17 09:16 09:16 09:16 WBC 6.1 RBC 3.87 Hgb 11.6 L Hct 35.1 MCV 90.7 MCH 30.0 MCHC 33.1 RDW 14.0 Plt Count 117 L MPV 11.7 Neut % (Auto) 70.3 Lymph % (Auto) 15.1 L [place] % (Auto) 9.4 Eos % (Auto) 4.1 H Baso % (Auto) 1.1 Neut # (Auto) 4.3 Lymph # (Auto) 0.9 L [place] # (Auto) 0.6 Eos # (Auto) 0.2 Baso # (Auto) 0.1 PT 10.0 INR 0.9 APTT 29.0 pCO2 pO2 HCO3 ABG pH ABG Total CO2 ABG O2 Saturation ABG Base Excess Nacho Test ABG Potassium A-a O2 Difference Glucose Lactate Vent Mode Mechanical Rate FiO2 Inspiratory BiPAP Expiratory BiPAP Sodium 141 Potassium 5.5 H Chloride 105 Carbon Dioxide 18 L Anion Gap 24 H BUN 70 H Creatinine 4.8 H Est GFR ( Amer) 11 Est GFR (Non-Af Amer) 9 Random Glucose 119 H Calcium 9.9 Total Bilirubin 0.9 AST 66 H D ALT 63 H D Alkaline Phosphatase 99 Troponin I 0.0240 NT-Pro-B Natriuret Pep 86851 H Total Protein 7.7 Albumin 4.5 Globulin 3.2 Albumin/Globulin Ratio 1.4 Arterial Blood Potassium 11/08/17 09:27 WBC RBC Hgb Hct MCV MCH MCHC RDW Plt Count MPV Neut % (Auto) Lymph % (Auto) [place] % (Auto) Eos % (Auto) Baso % (Auto) Neut # (Auto) Lymph # (Auto) [place] # (Auto) Eos # (Auto) Baso # (Auto) PT INR APTT pCO2 50 H pO2 432 H HCO3 20.6 L ABG pH 7.25 L ABG Total CO2 23.4 ABG O2 Saturation 100.3 H ABG Base Excess -5.6 L Nacho Test Yes ABG Potassium 5.5 H A-a O2 Difference 219.0 Glucose 168 H Lactate 0.8 Vent Mode Bipap Mechanical Rate 14 FiO2 100.0 Inspiratory BiPAP 10 Expiratory BiPAP 5 Sodium 136.0 Potassium Chloride 107.0 Carbon Dioxide Anion Gap BUN Creatinine Est GFR ( Amer) Est GFR (Non-Af Amer) Random Glucose Calcium Total Bilirubin AST ALT Alkaline Phosphatase Troponin I NT-Pro-B Natriuret Pep Total Protein Albumin Globulin Albumin/Globulin Ratio Arterial Blood Potassium 5.5 H Assessment & Plan (1) CHF exacerbation Status: Acute Priority: High (2) Hyperkalemia Status: Acute (3) Missed dialysis Status: Acute (4) Accelerated hypertension Status: Acute (5) ESRD (end stage renal disease) on dialysis Assessment and Plan: ESRD missing multiple dialysis. volume overloaded with CHF hyperlkalemia uncontrolled hypertention emergency HD NA bath 138 K bath 2meq bicarbonate bath 34 UF about 3000cc as tolereated Status: Acute
[2017-11-09 00:02] VITALS: RESP 18
[2017-11-09] MEDS ORDERED: Multivitamin Vitamin B Complex (Nephro-Vite) Tab PO SCH (09:00)
--- NOTE | 2017-11-09 09:56 | CP.PCM.PN ---
Subjective - Date & Time of Evaluation Date of Evaluation: 11/09/17 Time of Evaluation: 09:54 - Subjective Subjective: Patient awake and conscious in bed she is feeling much better no chest pain no shortness of breath after she completed dialysis. Patient not cooperating she would not go for dialysis unless very sick. Objective - Vital Signs/Intake and Output Vital Signs (last 24 hours): Temp Pulse Resp BP Pulse Ox 98.4 F 70 18 166/64 H 100 11/09/17 08:00 11/09/17 09:06 11/09/17 08:00 11/09/17 09:06 11/09/17 08:00 - Medications Medications: Current Medications Acetaminophen (Tylenol 325mg Tab) 650 mg PO Q6 PRN PRN Reason: Headache Amlodipine Besylate (Norvasc) 10 mg PO DAILY [facility] Last Admin: 11/09/17 09:05 Dose: 10 mg Atorvastatin Calcium (Lipitor) 20 mg PO DAILY [facility] Last Admin: 11/09/17 09:06 Dose: 20 mg Calcium Carbonate (Oscal) 500 mg PO TID [facility] Last Admin: 11/09/17 09:04 Dose: 500 mg Docusate Sodium (Colace) 100 mg PO BID PRN PRN Reason: Constipation Heparin Sodium (Porcine) (Heparin) 5,000 units SC Q12 ANKUR PRN Reason: Protocol Last Admin: 11/09/17 09:05 Dose: 5,000 units Hydralazine HCl (Apresoline) 50 mg PO BID [facility] Last Admin: 11/09/17 09:04 Dose: 50 mg Labetalol HCl (Trandate) 100 mg PO BID [facility] Last Admin: 11/09/17 09:05 Dose: 100 mg Lisinopril (Zestril) 5 mg PO DAILY [facility] Last Admin: 11/09/17 09:06 Dose: 5 mg Vitamin B Complex/Vit C/Folic Acid (Nephro-Valentino) 1 tab PO DAILY [facility] Last Admin: 11/09/17 09:06 Dose: 1 tab - Labs Labs: 11/08/17 09:16 11/08/17 09:16 PT 10.0 Seconds (9.8-13.1) 11/08/17 09:16 INR 0.9 (0.9-1.2) 11/08/17 09:16 APTT 29.0 Seconds (25.6-37.1) 11/08/17 09:16 - Constitutional Appears: No Acute Distress - Eye Exam Eye Exam: Conjunctival injection - ENT Exam ENT Exam: Mucous Membranes Moist - Neck Exam Neck Exam: absent: Lymphadenopathy - Respiratory Exam Respiratory Exam: NORMAL BREATHING PATTERN. absent: Chest Wall Tenderness - Cardiovascular Exam Cardiovascular Exam: absent: Gallop, JVD, Rubs - GI/Abdominal Exam GI & Abdominal Exam: Soft, Normal Bowel Sounds - Extremities Exam Extremities Exam: absent: Calf Tenderness - Back Exam Back Exam: absent: CVA tenderness (L), CVA tenderness (R) - Neurological Exam Neurological Exam: Alert - Psychiatric Exam Psychiatric exam: Normal Affect - Skin Skin Exam: absent: Cyanosis Assessment and Plan (1) CHF exacerbation Status: Acute (2) Hyperkalemia Status: Acute (3) Missed dialysis Status: Acute (4) Accelerated hypertension Status: Acute (5) ESRD (end stage renal disease) on dialysis Assessment & Plan: End stage renal disease patient completed hemodialysis yesterday. Patient is not cooperating. Blood pressure better controlled. Patient told me that she is going to go home . She was instructed to go outpatient for dialysis and she said no. Status: Acute
--- NOTE | 2017-11-09 10:41 | CARD ---
APPROVED REPORT EKG Measurement Heart [id number] <Conclusion> Sinus tachycardia Possible Left atrial enlargement Nonspecific ST and T wave abnormality Abnormal ECG
[2017-11-09 10:51] LABS: CALCIUM 8.8 mg/dL (8.4-10.2)
[2017-11-09 11:57] VITALS: BP 128/50; PULSE 72; TEMP 98.1; O2SAT 95
--- NOTE | 2017-11-09 14:06 | CP.PCM.HP ---
History of Present Illness - History of Present Illness History of Present Illness: 77 y/o F, multiple chronic medical conditions, including Hx of ESRD on HD MMS, Hx CHF, [facility] to be evaluated for moderate SOB, onset day [place], increased on DOA, no cough, associated to BARBA, SOB at rest, increased BP 209/118, HR: 102 while in the ER. Worsening symptoms: Tachypnea 2nd to acute anxiety, increasing respiratory insufficiency, Pt was placed in BIPAP mask with FIO2 40% Aggravated factor: Pt in non compliance with Tx, missed the last 2 HD. Off note: Pt with Hx of been admitted to [facility] on 10/16/17 to 10/20/17 for same complaints and same behavior of non contributory with Tx. Abnormal electrolytes. Denied: Fever, chills, n/v/d, abdominal pain, urinary symptoms, CP, LOC, syncope, sick contact, recent travel out of [facility]. EKG on 11/08/17 showed: Sinus tachycardia. CXR on 11/08/17: Increased pulmonary congestion compatible with CHF. Present on Admission - Present on Admission Any Indicators Present on Admission: No Review of Systems - Review of Systems All systems: reviewed and no additional remarkable complaints except (HPI) Past Patient History - Infectious Disease Hx of Infectious Diseases: None - Tetanus Immunizations Tetanus Immunization: Unknown - Past Medical History & Family History Past Medical History?: Yes Pertinent Family History: Unknown. - Past Social History Alcohol: None Drugs: Denies - CARDIAC Hx Cardiac Disorders: Yes Hx Congestive Heart Failure: Yes Hx Hypercholesterolemia: Yes Hx Hypertension: Yes - PULMONARY Hx Respiratory Disorders: Yes Hx Pneumonia: Yes - NEUROLOGICAL Hx Neurological Disorder: Yes Hx Alzheimer's Disease: Yes Hx Dementia: Yes - HEENT Hx HEENT Problems: No - RENAL Hx Chronic Kidney Disease: Yes - ENDOCRINE/METABOLIC Hx Endocrine Disorders: No - HEMATOLOGICAL/ONCOLOGICAL Hx Blood Disorders: Yes Hx Anemia: Yes - INTEGUMENTARY Hx Dermatological Problems: No - MUSCULOSKELETAL/RHEUMATOLOGICAL Hx Musculoskeletal Disorders: No Hx Falls: No - GASTROINTESTINAL Hx Gastrointestinal Disorders: Yes Hx Constipation: Yes - GENITOURINARY/GYNECOLOGICAL Hx Genitourinary Disorders: Yes - PSYCHIATRIC Hx Psychophysiologic Disorder: Yes Hx Anxiety: Yes Hx Schizophrenia: No - SURGICAL HISTORY Hx Surgeries: Yes Hx Appendectomy: Yes Hx Tonsillectomy: Yes - ANESTHESIA Hx Anesthesia: Yes Hx Anesthesia Reactions: No Hx Malignant Hyperthermia: No Meds Allergies/Adverse Reactions: Allergies Allergy/AdvReac Type Severity Reaction Status Date / Time No Known Allergies Allergy Verified 11/08/17 09:17 Physical Exam - Constitutional Appears: No Acute Distress - Head Exam Head Exam: NORMAL INSPECTION - Eye Exam Eye Exam: PERRL - ENT Exam ENT Exam: Normal Exam - Neck Exam Neck exam: Positive for: Normal Inspection - Respiratory Exam Respiratory Exam: Clear to Auscultation Bilateral - Cardiovascular Exam Cardiovascular Exam: REGULAR RHYTHM - GI/Abdominal Exam GI & Abdominal Exam: Normal Bowel Sounds, Soft - Extremities Exam Additional comments: Pedal edema - Back Exam Back exam: NORMAL INSPECTION - Neurological Exam Neurological exam: Alert, Oriented x3 Additional comments: At times confused. - Skin Skin Exam: Warm Results - Vital Signs Recent Vital Signs: Last Vital Signs Temp 98.1 F 11/09/17 11:56 Pulse 72 11/09/17 11:56 Resp 18 11/09/17 11:56 BP 128/50 L 11/09/17 11:56 Pulse Ox 95 11/09/17 11:56 reviewed J.P. - Labs Result Diagrams: 11/08/17 09:16 11/09/17 09:55 Labs: Laboratory Results - last 24 hr 11/09/17 09:55 Sodium 139 Potassium 3.2 L Chloride 95 L Carbon Dioxide 25 Anion Gap 22 H BUN 29 H Creatinine 3.1 H Est GFR ( Amer) 18 Est GFR (Non-Af Amer) 14 Random Glucose 170 H Calcium 8.8 reviewed J.P. - EKG Data EKG comments: reviewed J.P. - Imaging and Cardiology Chest x-ray Status: Report reviewed by me (JBernardP.) Assessment & Plan (1) CHF exacerbation Status: Acute Priority: High (2) ESRD (end stage renal disease) on dialysis Status: Chronic Priority: High (3) Accelerated hypertension Status: Acute Priority: High (4) Hyperkalemia Status: Acute Priority: High (5) Constipation Status: Chronic Priority: Medium (6) Dyslipidemia Status: Chronic Priority: Medium - Assessment and Plan (Free Text) Plan: ,Pt received dialysis yesterday, no SOB, NC was switched to NC 2 L/M, BP has been controlled, now 128/50. Pt is non-adherent with HD treatments, as per Neurologists, she was instructed to have HD as outpatient and she said NO. Pt improved and stable to be discharged, to f/u with PMD and Renal consult for continue outpatient HD. Nephrology consult appreciated. - Date & Time Date: 11/09/17 Time: 13:30
--- NOTE | 2017-11-12 08:51 | PQF CHF ---
Dr. Dooley History and Physical documented chf exacerbation. If known please clarify type. . This form is a permanent part of the medical record Clarification of your documentation is requested to better reflect the severity of illness and intensity of treatment of your patient. Indicators present [x] Diagnosis of CHF and/or history of CHF [x] BNP > 200 [] Imaging Finding of Pulmonary Edema /Pleural Effusions [x] Fluid/Volume Overload [] Pitting edema [] Ejection Fraction < 40% (Indicative of Systolic Heart Failure) [] Ejection Fraction > 40% (Indicative of Diastolic Heart Failure) [] Dyspnea / Orthopenea / Paroxysmal Nocturnal Dyspnea [] Other: Location in the medical record that reflects the above clinical findings: [] Treatment Provided: [] PHYSICIAN'S RESPONSE Based on your medical judgment of the clinical indicators outlined above, are you treating this patient for a known or suspected: [] Acute CHF [] Systolic [] Diastolic [] Combined [] Chronic CHF [] Systolic [] Diastolic [] Combined [] Acute on Chronic CHF []Systolic [] Diastolic [] Combined [] CHF due hypertension [] Acute systolic []Chronic systolic [] Acute/ chronic systolic [] Other, please indicate: [] [] If Unable to Determine, please check the box, sign and date. Present On Admission (POA) Indicator: [] Present at the time of admission [] Not present at the time of admission [] Clinically Undetermined In responding to this query, please exercise your independent professional judgment. The fact that a question is asked does not imply that any particular answer is desired or expected. Thank you for your clarification on this documentation. If you have any questions please call:[ ] * Thank you, [ ]Marcy Bro control panel operator THERESA
--- NOTE | 2017-11-14 09:58 | CP.PCM.DIS ---
Provider - Provider Date of Admission: 11/08/17 11:28 Attending physician: Cedric Dooley MD Consults: Nephrology. Time Spent in preparation of Discharge (in minutes): 35 Diagnosis - Discharge Diagnosis (1) CHF exacerbation Status: Acute Priority: High (2) ESRD (end stage renal disease) on dialysis Status: Chronic Priority: High (3) Accelerated hypertension Status: Acute Priority: High (4) Hyperkalemia Status: Acute Priority: High (5) Constipation Status: Chronic Priority: Medium (6) Dyslipidemia Status: Chronic Priority: Medium Hospital Course - Lab Results Lab Results: Most Recent Lab Values WBC 6.1 K/uL (4.8-10.8) 11/08/17 09:16 RBC 3.87 Mil/uL (3.80-5.20) 11/08/17 09:16 Hgb 11.6 g/dL (12.0-16.0) L 11/08/17 09:16 Hct 35.1 % (34.0-47.0) 11/08/17 09:16 MCV 90.7 fl (81.0-99.0) 11/08/17 09:16 MCH 30.0 pg (27.0-31.0) 11/08/17 09:16 MCHC 33.1 g/dL (33.0-37.0) 11/08/17 09:16 RDW 14.0 % (11.5-14.5) 11/08/17 09:16 Plt Count 117 K/uL (130-400) L 11/08/17 09:16 MPV 11.7 fl (7.2-11.7) 11/08/17 09:16 Neut % (Auto) 70.3 % (50.0-75.0) 11/08/17 09:16 Lymph % (Auto) 15.1 % (20.0-40.0) L 11/08/17 09:16 [facility] % (Auto) 9.4 % (0.0-10.0) 11/08/17 09:16 Eos % (Auto) 4.1 % (0.0-4.0) H 11/08/17 09:16 Baso % (Auto) 1.1 % (0.0-2.0) 11/08/17 09:16 Neut # (Auto) 4.3 K/uL (1.8-7.0) 11/08/17 09:16 Lymph # (Auto) 0.9 K/uL (1.0-4.3) L 11/08/17 09:16 [facility] # (Auto) 0.6 K/uL (0.0-0.8) 11/08/17 09:16 Eos # (Auto) 0.2 K/uL (0.0-0.7) 11/08/17 09:16 Baso # (Auto) 0.1 K/uL (0.0-0.2) 11/08/17 09:16 PT 10.0 Seconds (9.8-13.1) 11/08/17 09:16 INR 0.9 (0.9-1.2) 11/08/17 09:16 APTT 29.0 Seconds (25.6-37.1) 11/08/17 09:16 pCO2 50 mm/Hg (35-45) H 11/08/17 09:27 pO2 432 mm/Hg (80-100) H 11/08/17 09:27 HCO3 20.6 mmol/L (21-28) L 11/08/17 09:27 ABG pH 7.25 (7.35-7.45) L 11/08/17 09:27 ABG Total CO2 23.4 mmol/L (22-28) 11/08/17 09:27 ABG O2 Saturation 100.3 % (95-98) H 11/08/17 09:27 ABG Base Excess -5.6 mmol/L (-2.0-3.0) L 11/08/17 09:27 Nacho Test Yes 11/08/17 09:27 ABG Potassium 5.5 mmol/L (3.6-5.2) H 11/08/17 09:27 A-a O2 Difference 219.0 mm/Hg 11/08/17 09:27 Sodium 136.0 mmol/L (132-148) 11/08/17 09:27 Chloride 107.0 mmol/L (98-107) 11/08/17 09:27 Glucose 168 mg/dL (65-105) H 11/08/17 09:27 Lactate 0.8 mmol/L (0.7-2.1) 11/08/17 09:27 Vent Mode Bipap 04/26/18 09:27 Mechanical Rate 14 11/08/17 09:27 FiO2 100.0 % 11/08/17 09:27 Inspiratory BiPAP 10 11/08/17 09:27 Expiratory BiPAP 5 11/08/17 09:27 Sodium 139 mmol/l (132-148) 11/09/17 09:55 Potassium 3.2 MMOL/L (3.6-5.0) L 11/09/17 09:55 Chloride 95 mmol/L (98-107) L 11/09/17 09:55 Carbon Dioxide 25 mmol/L (22-30) 11/09/17 09:55 Anion Gap 22 (10-20) H 11/09/17 09:55 BUN 29 mg/dl (7-17) H 11/09/17 09:55 Creatinine 3.1 mg/dl (0.7-1.2) H 11/09/17 09:55 Est GFR ( Amer) 18 11/09/17 09:55 Est GFR (Non-Af Amer) 14 11/09/17 09:55 Random Glucose 170 mg/dL (65-105) H 11/09/17 09:55 Calcium 8.8 mg/dL (8.4-10.2) 11/09/17 09:55 Total Bilirubin 0.9 mg/dl (0.2-1.3) 11/08/17 09:16 AST 66 U/L (14-36) H D 11/08/17 09:16 ALT 63 U/L (9-52) H D 11/08/17 09:16 Alkaline Phosphatase 99 U/L (38-126) 11/08/17 09:16 Troponin I 0.0240 ng/mL (0.00-0.120) 11/08/17 09:16 NT-Pro-B Natriuret Pep 65153 pg/ml (0-900) H 11/08/17 09:16 Total Protein 7.7 G/DL (6.3-8.2) 11/08/17 09:16 Albumin 4.5 g/dL (3.5-5.0) 11/08/17 09:16 Globulin 3.2 gm/dL (2.2-3.9) 11/08/17 09:16 Albumin/Globulin Ratio 1.4 (1.0-2.1) 11/08/17 09:16 Arterial Blood Potassium 5.5 mmol/L (3.6-5.2) H 11/08/17 09:27 - Date & Time of H&P Date of H&P: 11/09/17 Time of H&P: 13:30 Discharge Exam - Head Exam Head Exam: NORMAL INSPECTION Discharge Plan - Follow Up Plan Condition: FAIR Disposition: HOME/ ROUTINE Patient education suggested?: Yes Instructions: Heart Failure, Adult (DC), Kidney Failure (DC) Additional Instructions: F/U with PMD in one week.
== END 2017-11-09 16:30 | disposition home or self-care (01) | DRG 291 ==
LOC: H.ER 08:28 → H.ERHOLD 11:28 → H.TEL 12:36
PROVIDERS: ADMIT Internal Medicine Pulmonary Disease; ATTEND Internal Medicine Pulmonary Disease
PROC: 5A09357 Assistance with Respiratory Ventilation, Less than 24 Consecutive Hours, Continuous Positive Airway Pressure (ICD-10-PCS; principal; 2017-11-08)
PROC: 5A1D70Z Performance of Urinary Filtration, Intermittent, Less than 6 Hours Per Day (ICD-10-PCS; 2017-11-08)
DX: I13.2 Hypertensive heart and chronic kidney disease with heart failure and with stage 5 chronic kidney disease, or end stage renal disease (principal); N18.6 End stage renal disease; I50.33 Acute on chronic diastolic (congestive) heart failure; N25.81 Secondary hyperparathyroidism of renal origin; F02.80 Dementia in other diseases classified elsewhere, unspecified severity, without behavioral disturbance, psychotic disturbance, mood disturbance, and anxiety; G30.9 Alzheimer's disease, unspecified; Z99.2 Dependence on renal dialysis; Z91.15 Patient's noncompliance with renal dialysis; E78.00 Pure hypercholesterolemia, unspecified; E87.5 Hyperkalemia; K59.00 Constipation, unspecified; E78.5 Hyperlipidemia, unspecified; I50.9 Heart failure, unspecified; F41.9 Anxiety disorder, unspecified

== ENCOUNTER 2018-01-02 15:36 | Inpatient (IN) | payer MEDICARE ==
[2018-01-02 15:36] VITALS: BMI 17.2
--- NOTE | 2018-01-02 17:31 | ED PDOC ---
HPI: SOB/CHF/COPD Time Seen by Provider: 01/02/18 17:05 Chief Complaint (Nursing): Back Pain Chief Complaint (Provider): shortness of breath History Per: Family History/Exam Limitations: other (alzheimer's disease) Onset/Duration Of Symptoms: Days (1 and 1/2 months), Gradual, Persistent Current Symptoms Are (Timing): Still Present Additional Complaint(s): hx obtained from the son due to patient's h/o alzheimer's increase shortness of breath for 1 and 1/2 months. pt ESRD but refuses to have outpatient dialysis. Last HD was 2 months ago during hospitalization. Had near syncopal episode today. Visiting [facility] for [place] evaluated pt yesterday and bloodwork demonstrated elevated potassium advised to go to ER. Pt conversive and reports LEFT flank pain, but son says that she has had that she has had it for a "long time". PMD Dr Genaro Martínez Past Medical History Reviewed: Historical Data, Nursing Documentation, Vital Signs Vital Signs: Last Vital Signs Temp 98.4 F 01/04/18 12:00 Pulse 66 01/04/18 12:00 Resp 20 01/04/18 12:00 BP 166/61 H 01/04/18 12:00 Pulse Ox 97 01/04/18 12:00 - Medical History PMH: Alzheimer's Disease, Anemia, Anxiety, CHF, Dementia, HTN, Hypercholesterolemia, Pneumonia, End Stage Renal Disease, Chronic Kidney Disease Denies: Kidney Stones, Schizophrenia - Surgical History Surgical History: Appendectomy, Tonsillectomy - Family History Family History: States: Unknown Family Hx, Hypertension - Immunization History Hx Tetanus Toxoid Vaccination: No Hx Influenza Vaccination: No Hx Pneumococcal Vaccination: No - Home Medications Home Medications: Ambulatory Orders Medication Instructions Recorded Atorvastatin [Lipitor] 20 mg PO DAILY 08/16/16 Labetalol [Trandate] 100 mg PO BID 08/16/16 amLODIPine [Norvasc] 10 mg PO DAILY 08/16/16 Calcium Carbonate [Oscal] 500 mg PO TID 10/16/17 B Complex W-C No.20/Folic Acid 1 cap PO DAILY 01/03/18 [Virt-Caps Softgel] Calcitriol [Calcitriol] 1 cap PO QOTHERDAY 01/03/18 Mirtazapine [Remeron] 1 tab PO HS 01/03/18 hydrOXYzine HCl [Atarax] 1 tab PO TID 01/03/18 - Allergies Allergies/Adverse Reactions: Allergies Allergy/AdvReac Type Severity Reaction Status Date / Time No Known Allergies Allergy Verified 01/02/18 16:12 Review of Systems ROS Statement: Except As Marked, All Systems Reviewed And Found Negative Cardiovascular: Positive for: Chest Pain (LEFT posterior) Respiratory: Positive for: Shortness of Breath Musculoskeletal: Positive for: Back Pain Physical Exam - Reviewed Nursing Documentation Reviewed: Yes Vital Signs Reviewed: Yes - Physical Exam Appears: Positive for: Non-toxic, No Acute Distress Head Exam: Positive for: ATRAUMATIC, NORMOCEPHALIC Skin: Positive for: Warm, Dry Eye Exam: Positive for: EOMI, PERRL ENT: Negative for: Pharyngeal Erythema, Tonsillar Exudate Neck: Positive for: Painless ROM, Supple Cardiovascular/Chest: Positive for: Regular Rate, Rhythm, Edema, Other ( tenderness to LEFT chest wall at lateral and posterior axillary line, no crepitus). Negative for: Murmur Respiratory: Positive for: Decreased Breath Sounds (at bases, LEFT more decreased than RIGHT) Gastrointestinal/Abdominal: Positive for: Soft. Negative for: Tenderness Back: Positive for: Normal Inspection. Negative for: Decreased ROM Extremity: Positive for: Pedal Edema. Negative for: Deformity Lymphatic: Negative for: Adenopathy Neurologic/Psych: Positive for: Alert. Negative for: Motor/Sensory Deficits - Laboratory Results Result Diagrams: 01/03/18 07:30 01/03/18 07:30 - ECG O2 Sat by Pulse Oximetry: 100 - Progress ED Course And Treament: Labs c/w hyperkalemia, renal failure, fluid retention, and anemia Ordered kayexylate, albuterol, insulin/d50. MARILYN Rosado [facility]. MARILYN Benedict Nephrology DW Surgery resident for shiley placement for eventual hemodialysis Accession No. : [id number] Patient Name / ID : SILAS HARRINGTON / [id number] Exam Date : 01/02/2018 17:22:58 ( Approved ) Study Comment : Sex / Age : F / 77Y Creator : adwoa rodriguez Dictator : Don Le MD Principal Archaeologist : Freezer Worker : Don Le MD Approver2 : Report Date : 01/02/2018 18:23:33 My Comment : PROCEDURE: Radiographs of the Chest and Left Ribs. HISTORY: LEFT rib pain COMPARISON: Chest radiograph dated 11/08/2017. TECHNIQUE: Frontal radiograph of the chest and multiple oblique radiographs of the left ribs were obtained. FINDINGS: LEFT RIBS: No fracture or focal lesion visualized. LUNGS: Clear. PLEURA: No pneumothorax or pleural fluid. CARDIOVASCULAR: Atherosclerotic aortic calcifications. Cardiomediastinal silhouette stably enlarged. OTHER FINDINGS: None. IMPRESSION: Unremarkable radiographs of the chest and left ribs. No left rib fracture. Disposition - Clinical Impression Clinical Impression: End stage renal disease, Hyperkalemia Counseled Patient/Family Regarding: Studies Performed, Diagnosis - Disposition Disposition Time: 18:45 Condition: GUARDED - Pt Status Changed To: Hospital Disposition Of: Inpatient - Admit Certification Admit to Inpatient:: After my assessment, the patient will require hospitalization for at least two midnights. This is because of the severity of symptoms shown, intensity of services needed, and/or the medical risk in this patient being treated as an outpatient. - POA Present On Arrival: None
[2018-01-02 18:08] LABS: EOS # 0.2 K/uL (0.0-0.7); EOS % 4.4 % (0.0-4.0); HEMOGLOBIN 10.5 g/dL (12.0-16.0); LYMPH % 22.1 % (20.0-40.0); MEAN CELL VOLUME 88.7 fl (81.0-99.0); MEAN CORPUSCULAR HEMOGLOBIN 29.1 pg (27.0-31.0); MEAN CORPUSCULAR HGB CONC 32.8 g/dL (33.0-37.0); MEAN PLATELET VOLUME 10.9 fl (7.2-11.7); MONO # 0.6 K/uL (0.0-0.8); MONO % 13.4 % (0.0-10.0); NEUT # 2.7 K/uL (1.8-7.0); NEUT % 59.1 % (50.0-75.0); NRBC % 0.1 % (0.0-0.0); RBC 3.61 Mil/uL (3.80-5.20); RED CELL DISTRIBUTION WIDTH 14.8 % (11.5-14.5); WHITE BLOOD COUNT 4.6 K/uL (4.8-10.8)
[2018-01-02 18:15] LABS: INR 0.9 (0.9-1.2); PARTIAL THROMBOPLASTIN TIME 35.2 Seconds (25.6-37.1); PROTHROMBIN TIME 10.1 Seconds (9.8-13.1)
[2018-01-02 18:18] LABS: ALB/GLOB RATIO 1.5 (1.0-2.1); ALBUMIN 4.4 g/dL (3.5-5.0); CALCIUM 8.9 mg/dL (8.4-10.2)
[2018-01-02 18:26] LABS: TROPONIN I 0.018 ng/mL (0.00-0.120)
--- NOTE | 2018-01-02 18:35 | RAD ---
PROCEDURE: Radiographs of the Chest and Left Ribs. HISTORY: LEFT rib pain COMPARISON: Chest radiograph dated 11/08/2017. TECHNIQUE: Frontal radiograph of the chest and multiple oblique radiographs of the left ribs were obtained. FINDINGS: LEFT RIBS: No fracture or focal lesion visualized. LUNGS: Clear. PLEURA: No pneumothorax or pleural fluid. CARDIOVASCULAR: Atherosclerotic aortic calcifications. Cardiomediastinal silhouette stably enlarged. OTHER FINDINGS: None. IMPRESSION: Unremarkable radiographs of the chest and left ribs. No left rib fracture.
[2018-01-02] MEDS ORDERED: Sod Polystyrene Sulf 15 gm/60 ml Susp PO STA (18:57)
[2018-01-02] MEDS ORDERED: Insulin Regular 100 units/ml IVP STA (18:57)
[2018-01-02] MEDS ORDERED: Albuterol 0.083% Inhal Sol (2.5 mg/3 mL) UD IH STA (18:57)
[2018-01-02] MEDS ORDERED: Dextrose 50% SYRINGE Inj (50 ml) IVP STA (18:57)
[2018-01-02] MEDS ORDERED: Dextrose 50% SYRINGE Inj (50 ml) ONE (19:22)
[2018-01-02] MEDS ORDERED: Albuterol 0.083% Inhal Sol (2.5 mg/3 mL) UD ONE (19:23)
[2018-01-02] MEDS ORDERED: Sod Polystyrene Sulf 15 gm/60 ml Susp ONE (19:24)
[2018-01-02] MEDS ORDERED: Insulin Regular 100 units/ml ONE (19:25)
--- NOTE | 2018-01-03 08:01 | CP.PCM.CON ---
History of Present Illness - History of Present Illness History of Present Illness: Surgery Consult note. Dr. Dial Consulted for possible temporary HD access History obtained from chart review and from the patient encounter due to hx of Alzheimer's 77yo F with PMHx of Alzheimer's, Anemia, Anxiety, CHF, Dementia, HTN, HLD, CKD here for gradually worsening SOB and need for dialysis. Patient states that she currently feels well. Denies any SOB. She states that she has never received HD in the past and does not want to receive HD currently. As per chart review, patient has been told that she would need dialysis in the past, however, she has been refusing to obtain any outpatient HD treatments at the moment. Patient denies any current complaints. In ED, patient is found to have hyperkalemia, renal insufficiency and hyperphosphatemia. 12-Point ROS unobtainable due to patient's h/o Alzheimer's dementia PMD: Dr. Genaro Martínez PMHx: Alzheimer's, Dementia, Anemia, Anxiety, CHF, HTN, HLD, CKD PSHx: Appendectomy, Tonsillectomy Social Hx: Lives alone in [place]. Denies Tobacco use. Denies ETOH use. Denies illicit drugs Family Hx: unobtainable NKDA Review of Systems - Review of Systems Systems not reviewed;Unavailable: Dementia Past Patient History - Infectious Disease Hx of Infectious Diseases: None - Tetanus Immunizations Tetanus Immunization: Unknown - Past Medical History & Family History Past Medical History?: Yes - Past Social History Smoking Status: Never Smoked - CARDIAC Hx Congestive Heart Failure: Yes Hx Hypercholesterolemia: Yes Hx Hypertension: Yes - PULMONARY Hx Pneumonia: Yes - NEUROLOGICAL Hx Alzheimer's Disease: Yes Hx Dementia: Yes - HEENT Hx HEENT Problems: No - RENAL Hx Chronic Kidney Disease: Yes Hx Dialysis: Yes Hx Kidney Stones: Yes (2 months ago) - ENDOCRINE/METABOLIC Hx Endocrine Disorders: No - HEMATOLOGICAL/ONCOLOGICAL Hx Anemia: Yes - INTEGUMENTARY Hx Dermatological Problems: No - MUSCULOSKELETAL/RHEUMATOLOGICAL Hx Falls: No - GASTROINTESTINAL Hx Gastrointestinal Disorders: Yes Hx Constipation: Yes - GENITOURINARY/GYNECOLOGICAL Hx Genitourinary Disorders: Yes - PSYCHIATRIC Hx Substance Use: No - SURGICAL HISTORY Hx Appendectomy: Yes Hx Tonsillectomy: Yes - ANESTHESIA Hx Anesthesia: Yes Hx Anesthesia Reactions: No Hx Malignant Hyperthermia: No Meds Allergies/Adverse Reactions: Allergies Allergy/AdvReac Type Severity Reaction Status Date / Time No Known Allergies Allergy Verified 01/02/18 16:12 - Medications Medications: Current Medications Amlodipine Besylate (Norvasc) 10 mg PO DAILY [facility] Atorvastatin Calcium (Lipitor) 20 mg PO DAILY [facility] Calcitriol (Rocaltrol) 0.5 mcg PO QOTHERDAY [facility] Calcium Carbonate (Oscal) 500 mg PO TID [facility] Clonidine HCl (Catapres) 0.1 mg PO Q6 PRN PRN Reason: bp >160/90 Last Admin: 01/03/18 02:34 Dose: 0.1 mg Heparin Sodium (Porcine) (Heparin) 5,000 units SC Q12 [facility] PRN Reason: Protocol Hydroxyzine HCl (Atarax) 25 mg PO TID [facility] Labetalol HCl (Trandate) 100 mg PO BID [facility] Mirtazapine (Remeron) 7.5 mg PO HS [facility] Vitamin B Complex/Vit C/Folic Acid (Nephro-Valentino) 1 tab PO DAILY [facility] Physical Exam - Constitutional Appears: Well, Non-toxic, No Acute Distress - Head Exam Head Exam: ATRAUMATIC, NORMAL INSPECTION, NORMOCEPHALIC - Eye Exam Eye Exam: EOMI. absent: Scleral icterus - ENT Exam ENT Exam: Mucous Membranes Moist - Respiratory Exam Respiratory Exam: NORMAL BREATHING PATTERN. absent: Accessory Muscle Use, Respiratory Distress - GI/Abdominal Exam GI & Abdominal Exam: Soft. absent: Distended, Firm, Guarding, Rigid, Tenderness Results - Vital Signs Recent Vital Signs: Last Vital Signs Temp 98.4 F 01/03/18 05:27 Pulse 82 01/03/18 05:27 Resp 18 01/03/18 05:27 BP 186/67 H 01/03/18 05:27 Pulse Ox 96 01/03/18 05:27 - Labs Result Diagrams: 01/03/18 07:30 01/03/18 07:30 Labs: Laboratory Results - last 24 hr 01/02/18 01/02/18 01/02/18 17:20 17:58 17:58 WBC 4.6 L RBC 3.61 L Hgb 10.5 L Hct 32.0 L MCV 88.7 D MCH 29.1 MCHC 32.8 L RDW 14.8 H Plt Count 112 L MPV 10.9 Neut % (Auto) 59.1 Lymph % (Auto) 22.1 [place] % (Auto) 13.4 H Eos % (Auto) 4.4 H Baso % (Auto) 1.0 Neut # (Auto) 2.7 Lymph # (Auto) 1.0 [place] # (Auto) 0.6 Eos # (Auto) 0.2 Baso # (Auto) 0.0 PT INR APTT Sodium 136 Potassium 6.0 H Chloride 101 Carbon Dioxide 24 Anion Gap 17 BUN 74 H Creatinine 4.9 H Est GFR ( Amer) 10 Est GFR (Non-Af Amer) 9 POC Glucose (mg/dL) 107 Random Glucose 89 Lactic Acid Calcium 8.9 Phosphorus 4.7 H Magnesium 2.1 Total Bilirubin 1.0 AST 40 H D ALT 27 Alkaline Phosphatase 82 Troponin I 0.0180 NT-Pro-B Natriuret Pep 96877 H Total Protein 7.3 Albumin 4.4 Globulin 2.9 Albumin/Globulin Ratio 1.5 01/02/18 01/02/18 17:58 17:58 WBC RBC Hgb Hct MCV MCH MCHC RDW Plt Count MPV Neut % (Auto) Lymph % (Auto) [place] % (Auto) Eos % (Auto) Baso % (Auto) Neut # (Auto) Lymph # (Auto) [place] # (Auto) Eos # (Auto) Baso # (Auto) PT 10.1 INR 0.9 APTT 35.2 Sodium Potassium Chloride Carbon Dioxide Anion Gap BUN Creatinine Est GFR ( Amer) Est GFR (Non-Af Amer) POC Glucose (mg/dL) Random Glucose Lactic Acid 1.0 Calcium Phosphorus Magnesium Total Bilirubin AST ALT Alkaline Phosphatase Troponin I NT-Pro-B Natriuret Pep Total Protein Albumin Globulin Albumin/Globulin Ratio Assessment & Plan - Assessment and Plan (Free Text) Assessment: 77yo F with CKD. Surgery consulted for possible temporary HD access Plan: - Patient currently refusing HD access placement - Please contact surgery team after family discussion and patient agrees to HD as planned per Nephrology - f/u Nephrology recs Further recs as per Dr. Jayro Milligan PGY1 surgery pager: [phone]
--- NOTE | 2018-01-03 08:08 | CARD ---
APPROVED REPORT EKG Measurement Heart [id number] ID [id number] <Conclusion> Normal sinus rhythm with sinus arrhythmia Possible Left atrial enlargement T wave abnormality, consider lateral ischemia Abnormal ECG
[2018-01-03 08:30] LABS: MEAN CELL VOLUME 87.7 fl (81.0-99.0); MEAN CORPUSCULAR HGB CONC 33.1 g/dL (33.0-37.0); RBC 3.46 Mil/uL (3.80-5.20); RED CELL DISTRIBUTION WIDTH 14.4 % (11.5-14.5); WHITE BLOOD COUNT 4.2 K/uL (4.8-10.8)
--- NOTE | 2018-01-03 08:34 | CP.PCM.HP ---
History of Present Illness - History of Present Illness History of Present Illness: 77 yr old F brought to ED by son for evaluation of hyperkalemia. Patient had labs done by her [facility] home visiting premium representative which revealed hyperkalemia. PMHx includes Alzheimers, ESRD (patient refuses outpatient HD), anemia, anxiety and hypercholesterolemia. PMD: Dr. Genaro Martínez Specialists: Dr. Benedict PMHx: Alzheimers, ESRD (patient refuses outpatient HD), anemia, anxiety and hypercholesterolemia SurgHx: appendectomy, tonsillectomy FMHx: HTN SocHx: denies tobacco, Etoh or drugs Medications: Atorvastatin 20mg PO QHS, Labetalol 100mg PO BID, Lisinopril 5mg PO QD, Amlodipine 10mg PO QD, Hydralazine 50mg PO BID, Renal caps softgel 1 cap PO QD, Oscal 500mg PO TID Allergies: NKDA ED course: BP 179/62 mmHg, HR 75 bpm, Resp 16, O2 sat 100% on room air, Temp 98.0 F -EKG: NSR with sinus arrhythmia at rate of 85 bpm -CBC: WBC 4.6, H/H 10.5/ 32, plts 112 -CMP: Na 136, K+ 6.0, Cl 101, HCO3 24, anion gap 17, BUN 74/ Cr 4.9, eGFR 9 -coags wnl -lactic acid 1.0, phosphorus 4.7 -AST 40, ALT 27, troponin 0.0180, proBNP 27,700 -ED treatment: Nephrology and Surgery consult, Albuterol 2.5mg INH once, D50 IVP once, Insulin 10 units IVP once, Kayexalate 30gm once -CXR and left Ribs xray: unremarkable Present on Admission - Present on Admission Any Indicators Present on Admission: No History of DVT/PE: No History of Uncontrolled Diabetes: No Urinary Catheter: No Decubitus Ulcer Present: No History Surgical Site Infection Following: None Review of Systems - Constitutional Constitutional: absent: Chills - EENT Eyes: absent: Change in Vision Nose/Mouth/Throat: absent: Sore Throat - Cardiovascular Cardiovascular: absent: Chest Pain, Dyspnea - Respiratory Respiratory: absent: Cough, Dyspnea, Hemoptysis - Gastrointestinal Gastrointestinal: absent: Abdominal Pain, Nausea, Vomiting - Genitourinary Genitourinary: absent: Difficulty Urinating, Dysuria - Musculoskeletal Musculoskeletal: absent: Arthralgias - Integumentary Integumentary: absent: Bleeding Lesions - Neurological Neurological: absent: Weakness - Psychiatric Psychiatric: absent: Anxiety - Endocrine Endocrine: absent: Polydipsia, Polyphagia, Polyuria - Hematologic/Lymphatic Hematologic: absent: Easy Bleeding, Easy Bruising Past Patient History - Infectious Disease Hx of Infectious Diseases: None - Tetanus Immunizations Tetanus Immunization: Unknown - Past Medical History & Family History Past Medical History?: Yes - Past Social History Smoking Status: Never Smoked - CARDIAC Hx Congestive Heart Failure: Yes Hx Hypercholesterolemia: Yes Hx Hypertension: Yes - PULMONARY Hx Pneumonia: Yes - NEUROLOGICAL Hx Alzheimer's Disease: Yes Hx Dementia: Yes - HEENT Hx HEENT Problems: No - RENAL Hx Chronic Kidney Disease: Yes Hx Dialysis: Yes Hx Kidney Stones: Yes (2 months ago) - ENDOCRINE/METABOLIC Hx Endocrine Disorders: No - HEMATOLOGICAL/ONCOLOGICAL Hx Anemia: Yes - INTEGUMENTARY Hx Dermatological Problems: No - MUSCULOSKELETAL/RHEUMATOLOGICAL Hx Falls: No - GASTROINTESTINAL Hx Gastrointestinal Disorders: Yes Hx Constipation: Yes - GENITOURINARY/GYNECOLOGICAL Hx Genitourinary Disorders: Yes - PSYCHIATRIC Hx Substance Use: No - SURGICAL HISTORY Hx Appendectomy: Yes Hx Tonsillectomy: Yes - ANESTHESIA Hx Anesthesia: Yes Hx Anesthesia Reactions: No Hx Malignant Hyperthermia: No Meds Allergies/Adverse Reactions: Allergies Allergy/AdvReac Type Severity Reaction Status Date / Time No Known Allergies Allergy Verified 01/02/18 16:12 Physical Exam - Constitutional Appears: No Acute Distress - Eye Exam Eye Exam: EOMI, PERRL - ENT Exam ENT Exam: Mucous Membranes Moist - Respiratory Exam Respiratory Exam: Clear to Auscultation Bilateral, NORMAL BREATHING PATTERN - Cardiovascular Exam Cardiovascular Exam: REGULAR RHYTHM, +S1, +S2 - GI/Abdominal Exam GI & Abdominal Exam: Normal Bowel Sounds, Soft. absent: Tenderness - Extremities Exam Extremities exam: Positive for: full ROM. Negative for: calf tenderness, pedal edema - Neurological Exam Neurological exam: Alert, CN II-XII Intact (grossly intact) - Psychiatric Exam Psychiatric exam: Normal Affect, Normal Mood - Skin Skin Exam: Dry, Normal Color, Warm Results - Vital Signs Recent Vital Signs: Last Vital Signs Temp 98.1 F 01/03/18 08:00 Pulse 73 01/03/18 08:00 Resp 20 01/03/18 08:00 BP 168/76 H 01/03/18 08:00 Pulse Ox 97 01/03/18 08:00 - Labs Result Diagrams: 01/03/18 07:30 01/03/18 07:30 Labs: Laboratory Results - last 24 hr 01/02/18 01/02/18 01/02/18 17:20 17:58 17:58 WBC 4.6 L RBC 3.61 L Hgb 10.5 L Hct 32.0 L MCV 88.7 D MCH 29.1 MCHC 32.8 L RDW 14.8 H Plt Count 112 L MPV 10.9 Neut % (Auto) 59.1 Lymph % (Auto) 22.1 [place] % (Auto) 13.4 H Eos % (Auto) 4.4 H Baso % (Auto) 1.0 Neut # (Auto) 2.7 Lymph # (Auto) 1.0 [place] # (Auto) 0.6 Eos # (Auto) 0.2 Baso # (Auto) 0.0 PT INR APTT Sodium 136 Potassium 6.0 H Chloride 101 Carbon Dioxide 24 Anion Gap 17 BUN 74 H Creatinine 4.9 H Est GFR ( Amer) 10 Est GFR (Non-Af Amer) 9 POC Glucose (mg/dL) 107 Random Glucose 89 Lactic Acid Calcium 8.9 Phosphorus 4.7 H Magnesium 2.1 Total Bilirubin 1.0 AST 40 H D ALT 27 Alkaline Phosphatase 82 Troponin I 0.0180 NT-Pro-B Natriuret Pep 44823 H Total Protein 7.3 Albumin 4.4 Globulin 2.9 Albumin/Globulin Ratio 1.5 01/02/18 01/02/18 17:58 17:58 WBC RBC Hgb Hct MCV MCH MCHC RDW Plt Count MPV Neut % (Auto) Lymph % (Auto) [place] % (Auto) Eos % (Auto) Baso % (Auto) Neut # (Auto) Lymph # (Auto) [place] # (Auto) Eos # (Auto) Baso # (Auto) PT 10.1 INR 0.9 APTT 35.2 Sodium Potassium Chloride Carbon Dioxide Anion Gap BUN Creatinine Est GFR ( Amer) Est GFR (Non-Af Amer) POC Glucose (mg/dL) Random Glucose Lactic Acid 1.0 Calcium Phosphorus Magnesium Total Bilirubin AST ALT Alkaline Phosphatase Troponin I NT-Pro-B Natriuret Pep Total Protein Albumin Globulin Albumin/Globulin Ratio Assessment & Plan - Assessment and Plan (Free Text) Assessment: 77 yr old F admitted for hyperkalemia and acute on chronic renal failure. PMHx Alzheimers, ESRD (patient refuses outpatient HD), anemia, anxiety and hypercholesterolemia, compensated CHF . Plan: -admit to telemetry -Nephrology consult appreciated: patient agrees to hemodialysis -general surgery consult appreciated: patient agrees for temporary hemodialysis catheter -continue home medications -cardiology consult appreciated -heart healthy diet - Date & Time Date: 01/03/18 Time: 08:00
[2018-01-03 08:57] LABS: ALB/GLOB RATIO 1.5 (1.0-2.1); ALBUMIN 3.8 g/dL (3.5-5.0)
[2018-01-03] MEDS: Multivitamin Vitamin B Complex (Nephro-Vite) Tab PO SCH (09:11)
--- NOTE | 2018-01-03 10:19 | CP.PCM.CON ---
History of Present Illness - History of Present Illness History of Present Illness: Patient is a 77 years of age female known to me with chronic kidney disease that to when she was on dialysis. And patient did not show up for outpatient dialysis as always she does and she came to the emergency room short of breath also hyperkalemic she was giving Kayexalate and treatment for hyperkalemia. Patient has been refusing to outpatient dialysis and every time she gets sick she come to the emergency room to have dialysis. Past medical history hypertension was numerous numerous of admission related to chronic kidney disease hyperkalemia hypertension and dialysis Review of Systems - Constitutional Constitutional: Anorexia, Weight Loss. absent: Chills - Cardiovascular Cardiovascular: Dyspnea, Dyspnea on Exertion, Edema, Leg Edema. absent: Acrocyanosis - Respiratory Respiratory: Cough, Dyspnea. absent: Hemoptysis - Gastrointestinal Gastrointestinal: Abdominal Pain, Nausea - Musculoskeletal Musculoskeletal: Muscle Weakness - Neurological Neurological: Abnormal Gait, Confusion, Weakness - Psychiatric Psychiatric: Anxiety - Endocrine Endocrine: Fatigue - Hematologic/Lymphatic Hematologic: absent: Easy Bleeding Past Patient History - Infectious Disease Hx of Infectious Diseases: None - Tetanus Immunizations Tetanus Immunization: Unknown - Past Medical History & Family History Past Medical History?: Yes - Past Social History Smoking Status: Never Smoked - CARDIAC Hx Congestive Heart Failure: Yes Hx Hypercholesterolemia: Yes Hx Hypertension: Yes - PULMONARY Hx Pneumonia: Yes - NEUROLOGICAL Hx Alzheimer's Disease: Yes Hx Dementia: Yes - HEENT Hx HEENT Problems: No - RENAL Hx Chronic Kidney Disease: Yes Hx Dialysis: Yes Hx Kidney Stones: Yes (2 months ago) - ENDOCRINE/METABOLIC Hx Endocrine Disorders: No - HEMATOLOGICAL/ONCOLOGICAL Hx Anemia: Yes - INTEGUMENTARY Hx Dermatological Problems: No - MUSCULOSKELETAL/RHEUMATOLOGICAL Hx Falls: No - GASTROINTESTINAL Hx Gastrointestinal Disorders: Yes Hx Constipation: Yes - GENITOURINARY/GYNECOLOGICAL Hx Genitourinary Disorders: Yes - PSYCHIATRIC Hx Substance Use: No - SURGICAL HISTORY Hx Appendectomy: Yes Hx Tonsillectomy: Yes - ANESTHESIA Hx Anesthesia: Yes Hx Anesthesia Reactions: No Hx Malignant Hyperthermia: No Meds Allergies/Adverse Reactions: Allergies Allergy/AdvReac Type Severity Reaction Status Date / Time No Known Allergies Allergy Verified 01/02/18 16:12 - Medications Medications: Current Medications Amlodipine Besylate (Norvasc) 10 mg PO DAILY [facility] Last Admin: 01/03/18 09:12 Dose: 10 mg Atorvastatin Calcium (Lipitor) 20 mg PO DAILY [facility] Last Admin: 01/03/18 09:12 Dose: 20 mg Calcitriol (Rocaltrol) 0.5 mcg PO QOTHERDAY [facility] Calcium Carbonate (Oscal) 500 mg PO TID [facility] Last Admin: 01/03/18 09:10 Dose: 500 mg Clonidine HCl (Catapres) 0.1 mg PO Q6 PRN PRN Reason: bp >160/90 Last Admin: 01/03/18 09:11 Dose: 0.1 mg Heparin Sodium (Porcine) (Heparin) 5,000 units SC Q12 [facility] PRN Reason: Protocol Last Admin: 01/03/18 09:10 Dose: 5,000 units Hydroxyzine HCl (Atarax) 25 mg PO TID [facility] Labetalol HCl (Trandate) 100 mg PO BID [facility] Last Admin: 01/03/18 09:11 Dose: 100 mg Mirtazapine (Remeron) 7.5 mg PO HS [facility] Vitamin B Complex/Vit C/Folic Acid (Nephro-Valentino) 1 tab PO DAILY [facility] Last Admin: 01/03/18 09:11 Dose: 1 tab Physical Exam - Constitutional Appears: No Acute Distress - ENT Exam ENT Exam: Mucous Membranes Moist - Neck Exam Neck exam: Negative for: Lymphadenopathy - Respiratory Exam Respiratory Exam: NORMAL BREATHING PATTERN. absent: Chest Wall Tenderness - Cardiovascular Exam Cardiovascular Exam: absent: Diastolic murmur, Gallop, Rubs - GI/Abdominal Exam GI & Abdominal Exam: Normal Bowel Sounds. absent: Guarding - Extremities Exam Extremities exam: Negative for: calf tenderness - Back Exam Back exam: absent: CVA tenderness (L), CVA tenderness (R) - Neurological Exam Neurological exam: Altered - Psychiatric Exam Psychiatric exam: Agitated, Depressed Results - Vital Signs Recent Vital Signs: Last Vital Signs Temp 98.1 F 01/03/18 08:00 Pulse 73 01/03/18 09:12 Resp 20 01/03/18 08:00 BP 168/76 H 01/03/18 09:12 Pulse Ox 97 01/03/18 08:00 - Labs Result Diagrams: 01/03/18 07:30 01/03/18 07:30 Labs: Laboratory Results - last 24 hr 01/02/18 01/02/18 01/02/18 17:20 17:58 17:58 WBC 4.6 L RBC 3.61 L Hgb 10.5 L Hct 32.0 L MCV 88.7 D MCH 29.1 MCHC 32.8 L RDW 14.8 H Plt Count 112 L MPV 10.9 Neut % (Auto) 59.1 Lymph % (Auto) 22.1 [place] % (Auto) 13.4 H Eos % (Auto) 4.4 H Baso % (Auto) 1.0 Neut # (Auto) 2.7 Lymph # (Auto) 1.0 [place] # (Auto) 0.6 Eos # (Auto) 0.2 Baso # (Auto) 0.0 PT INR APTT Sodium 136 Potassium 6.0 H Chloride 101 Carbon Dioxide 24 Anion Gap 17 BUN 74 H Creatinine 4.9 H Est GFR ( Amer) 10 Est GFR (Non-Af Amer) 9 POC Glucose (mg/dL) 107 Random Glucose 89 Lactic Acid Calcium 8.9 Phosphorus 4.7 H Magnesium 2.1 Total Bilirubin 1.0 AST 40 H D ALT 27 Alkaline Phosphatase 82 Troponin I 0.0180 NT-Pro-B Natriuret Pep 08447 H Total Protein 7.3 Albumin 4.4 Globulin 2.9 Albumin/Globulin Ratio 1.5 Triglycerides Cholesterol LDL Cholesterol Direct HDL Cholesterol Vitamin B12 TSH 3rd Generation 01/02/18 01/02/18 01/03/18 17:58 17:58 07:30 WBC 4.2 L RBC 3.46 L Hgb 10.0 L Hct 30.3 L MCV 87.7 MCH 29.0 MCHC 33.1 RDW 14.4 Plt Count 112 L MPV Neut % (Auto) Lymph % (Auto) [place] % (Auto) Eos % (Auto) Baso % (Auto) Neut # (Auto) Lymph # (Auto) [place] # (Auto) Eos # (Auto) Baso # (Auto) PT 10.1 INR 0.9 APTT 35.2 Sodium Potassium Chloride Carbon Dioxide Anion Gap BUN Creatinine Est GFR ( Amer) Est GFR (Non-Af Amer) POC Glucose (mg/dL) Random Glucose Lactic Acid 1.0 Calcium Phosphorus Magnesium Total Bilirubin AST ALT Alkaline Phosphatase Troponin I NT-Pro-B Natriuret Pep Total Protein Albumin Globulin Albumin/Globulin Ratio Triglycerides Cholesterol LDL Cholesterol Direct HDL Cholesterol Vitamin B12 TSH 3rd Generation 01/03/18 07:30 WBC RBC Hgb Hct MCV MCH MCHC RDW Plt Count MPV Neut % (Auto) Lymph % (Auto) [place] % (Auto) Eos % (Auto) Baso % (Auto) Neut # (Auto) Lymph # (Auto) [place] # (Auto) Eos # (Auto) Baso # (Auto) PT INR APTT Sodium 139 Potassium 4.2 Chloride 104 Carbon Dioxide 25 Anion Gap 14 BUN 65 H Creatinine 4.8 H Est GFR ( Amer) 11 Est GFR (Non-Af Amer) 9 POC Glucose (mg/dL) Random Glucose 87 Lactic Acid Calcium 9.0 Phosphorus Magnesium Total Bilirubin 1.1 AST 21 ALT 28 Alkaline Phosphatase 62 Troponin I NT-Pro-B Natriuret Pep Total Protein 6.4 Albumin 3.8 Globulin 2.6 Albumin/Globulin Ratio 1.5 Triglycerides 53 D Cholesterol 121 LDL Cholesterol Direct 44 HDL Cholesterol 52 Vitamin B12 639 TSH 3rd Generation 2.00 Assessment & Plan (1) Hyperkalemia Status: Acute Priority: High (2) ESRD (end stage renal disease) Assessment and Plan: Patient with end stage renal disease who has been refusing dialysis admitted with hyperkalemia shortness of breath patient requiring dialysis but she does not have access. Left upper arm AV fistula poor bruit. Also I heard about hospice with has not been decided yet and no decision has been made as of yet. Therefore we will proceed with the dialysis. Patient going to have permacath For axis to be dialyzed. Adjust antihypertensive medications Phosphorus binder for hyperphosphatemia Get serum PTH level And dialysis if she is agreeable. Status: Chronic Priority: High
--- NOTE | 2018-01-03 18:58 | CP.PCM.CON ---
History of Present Illness - History of Present Illness History of Present Illness: Consultation for evaluation of CHF HPI: Saba: Is a 77-year-old female with questionable history of Alzheimer's dementia end-stage renal disease refuses to have outpatient dialysis who initially presented with a questionable syncopal episode and hyperkalemia which was noticed by the visiting nurse provider from [facility] and demonstrated elevated levels of potassium. Patient at baseline claims to be independent with activities of daily living with minimal support but according to the review of records and son she is exhibiting some signs of dementia last echocardiogram showed moderate aortic stenosis with mild to moderate bloody hypertension and low normal ejection fraction she has chronic elevated BNP is. On presentation she was noted to be short of breath and we initiated on hemodialysis today while we are examining her. Past medical history as stated above significant for end-stage renal disease not on dialysis patient refuses outpatient hemodialysis is makes her feel sick history of anemia anxiety hyperlipidemia surgical history significant for appendectomy and tonsillectomy social history denies use smoking alcohol or illicit drug use medications at home include Lipitor 20 mg labetalol 100 p.o. twice daily lisinopril amlodipine hydralazine renal soft gels Os-Benjy no known drug allergies. On initial presentation to the ER patient was noted to be hypertensive with a blood pressure 170/62 EKG on initial presentation showed normal sinus rhythm with a heart rate of 85. Her troponin initially 1 is 0.0180 with a proBNP of 27,700. Review of Systems - Review of Systems Systems not reviewed;Unavailable: Acuity of Condition - Constitutional Constitutional: As Per HPI - EENT Eyes: As Per HPI Ears: As Per HPI Nose/Mouth/Throat: As Per HPI - Breasts Breasts: As Per HPI - Cardiovascular Cardiovascular: As Per HPI - Respiratory Respiratory: As Per HPI - Gastrointestinal Gastrointestinal: As Per HPI - Genitourinary Genitourinary: As Per HPI - Reproductive: Female Reproductive:Female: As Per HPI - Menstruation Menstruation: As Per HPI - Musculoskeletal Musculoskeletal: As Per HPI - Integumentary Integumentary: As Per HPI - Neurological Neurological: As Per HPI - Psychiatric Psychiatric: As Per HPI - Endocrine Endocrine: As Per HPI - Hematologic/Lymphatic Hematologic: As Per HPI Past Patient History - Infectious Disease Hx of Infectious Diseases: None - Tetanus Immunizations Tetanus Immunization: Unknown - Past Medical History & Family History Past Medical History?: Yes - Past Social History Smoking Status: Never Smoked - CARDIAC Hx Congestive Heart Failure: Yes Hx Hypercholesterolemia: Yes Hx Hypertension: Yes - PULMONARY Hx Pneumonia: Yes - NEUROLOGICAL Hx Alzheimer's Disease: Yes Hx Dementia: Yes - HEENT Hx HEENT Problems: No - RENAL Hx Chronic Kidney Disease: Yes Hx Dialysis: Yes Hx Kidney Stones: Yes (2 months ago) - ENDOCRINE/METABOLIC Hx Endocrine Disorders: No - HEMATOLOGICAL/ONCOLOGICAL Hx Anemia: Yes - INTEGUMENTARY Hx Dermatological Problems: No - MUSCULOSKELETAL/RHEUMATOLOGICAL Hx Falls: No - GASTROINTESTINAL Hx Gastrointestinal Disorders: Yes Hx Constipation: Yes - GENITOURINARY/GYNECOLOGICAL Hx Genitourinary Disorders: Yes - PSYCHIATRIC Hx Substance Use: No - SURGICAL HISTORY Hx Appendectomy: Yes Hx Tonsillectomy: Yes - ANESTHESIA Hx Anesthesia: Yes Hx Anesthesia Reactions: No Hx Malignant Hyperthermia: No Meds Allergies/Adverse Reactions: Allergies Allergy/AdvReac Type Severity Reaction Status Date / Time No Known Allergies Allergy Verified 01/02/18 16:12 - Medications Medications: Current Medications Amlodipine Besylate (Norvasc) 10 mg PO DAILY [facility] Last Admin: 01/03/18 09:12 Dose: 10 mg Atorvastatin Calcium (Lipitor) 20 mg PO DAILY [facility] Last Admin: 01/03/18 09:12 Dose: 20 mg Calcitriol (Rocaltrol) 0.5 mcg PO QOTHERDAY [facility] Last Admin: 01/03/18 12:57 Dose: 0.5 mcg Calcium Carbonate (Oscal) 500 mg PO TID [facility] Last Admin: 01/03/18 17:01 Dose: 500 mg Clonidine HCl (Catapres) 0.1 mg PO Q6 PRN PRN Reason: bp >160/90 Last Admin: 01/03/18 09:11 Dose: 0.1 mg Heparin Sodium (Porcine) (Heparin) 5,000 units SC Q12 [facility] PRN Reason: Protocol Last Admin: 01/03/18 09:10 Dose: 5,000 units Hydroxyzine HCl (Atarax) 25 mg PO TID [facility] Last Admin: 01/03/18 17:01 Dose: 25 mg Labetalol HCl (Trandate) 100 mg PO BID [facility] Last Admin: 01/03/18 17:02 Dose: Not Given Mirtazapine (Remeron) 7.5 mg PO HS [facility] Vitamin B Complex/Vit C/Folic Acid (Nephro-Valentino) 1 tab PO DAILY [facility] Last Admin: 01/03/18 09:11 Dose: 1 tab Physical Exam - Constitutional Appears: Well - Head Exam Head Exam: ATRAUMATIC, NORMAL INSPECTION, NORMOCEPHALIC - Eye Exam Eye Exam: EOMI, Normal appearance, PERRL Pupil Exam: NORMAL ACCOMODATION, PERRL - ENT Exam ENT Exam: Mucous Membranes Moist, Normal Exam - Neck Exam Neck exam: Positive for: Normal Inspection - Respiratory Exam Respiratory Exam: Clear to Auscultation Bilateral, NORMAL BREATHING PATTERN - Cardiovascular Exam Cardiovascular Exam: REGULAR RHYTHM, RRR, +S1, +S2, Systolic Murmur - GI/Abdominal Exam GI & Abdominal Exam: Normal Bowel Sounds, Soft. absent: Tenderness - Extremities Exam Extremities exam: Positive for: normal inspection - Back Exam Back exam: NORMAL INSPECTION - Neurological Exam Neurological exam: Alert, CN II-XII Intact, Normal Gait, Oriented x3, Reflexes Normal - Psychiatric Exam Psychiatric exam: Normal Affect, Normal Mood - Skin Skin Exam: Dry, Intact, Normal Color, Warm Results - Vital Signs Recent Vital Signs: Last Vital Signs Temp 98.1 F 01/03/18 16:30 Pulse 68 01/03/18 16:30 Resp 16 01/03/18 16:30 BP 155/56 H 01/03/18 16:30 Pulse Ox 96 01/03/18 16:30 - Labs Result Diagrams: 01/03/18 07:30 01/03/18 07:30 Labs: Laboratory Results - last 24 hr 01/03/18 01/03/18 07:30 07:30 WBC 4.2 L RBC 3.46 L Hgb 10.0 L Hct 30.3 L MCV 87.7 MCH 29.0 MCHC 33.1 RDW 14.4 Plt Count 112 L Sodium 139 Potassium 4.2 Chloride 104 Carbon Dioxide 25 Anion Gap 14 BUN 65 H Creatinine 4.8 H Est GFR ( Amer) 11 Est GFR (Non-Af Amer) 9 Random Glucose 87 Calcium 9.0 Total Bilirubin 1.1 AST 21 ALT 28 Alkaline Phosphatase 62 Total Protein 6.4 Albumin 3.8 Globulin 2.6 Albumin/Globulin Ratio 1.5 Triglycerides 53 D Cholesterol 121 LDL Cholesterol Direct 44 HDL Cholesterol 52 Vitamin B12 639 TSH 3rd Generation 2.00 Assessment & Plan (1) CHF exacerbation Assessment and Plan: diastolic with mixed VHD cont fluid removal with HD cont bb, vasodilators will need ischemic evaulation once euvolemic Status: Acute Priority: High (2) Aortic stenosis Assessment and Plan: moderate per Echo report from last admission Status: Acute (3) Pulmonary HTN Status: Acute (4) Chronic kidney disease, stage 5 Status: Acute (5) Hyperkalemia Status: Acute
[2018-01-03 21:36] LABS: HEPATITIS B SURFACE AG Negative (NEGATIVE)
[2018-01-03 21:41] LABS: HEPATITIS A IGM NEGATIVE (NEGATIVE); HEPATITIS B CORE AB NEGATIVE (NEGATIVE)
[2018-01-03 21:53] LABS: HEPATITIS C ANTIBODY NEGATIVE (NEGATIVE)
--- NOTE | 2018-01-03 22:59 | CP.PCM.PCO ---
Physician Communication Note - Physician Communication Note Physician Communication Note: Pt has LUE AVF access. OK for HD. Resconsult Surgery PRN
[2018-01-04] MEDS: Multivitamin Vitamin B Complex (Nephro-Vite) Tab PO SCH (08:50)
--- NOTE | 2018-01-04 09:02 | CP.PCM.PN ---
Subjective - Date & Time of Evaluation Date of Evaluation: 01/04/18 Time of Evaluation: 08:59 - Subjective Subjective: Patient conscious and alert not in acute distress. Vital sign appear to be stable with slightly elevated blood pressure. No nausea no vomiting Objective - Vital Signs/Intake and Output Vital Signs (last 24 hours): Temp Pulse Resp BP Pulse Ox 98.4 F 71 20 153/63 H 94 L 01/04/18 08:00 01/04/18 08:00 01/04/18 08:00 01/04/18 08:00 01/04/18 08:00 - Medications Medications: Current Medications Amlodipine Besylate (Norvasc) 10 mg PO DAILY [facility] Last Admin: 01/03/18 09:12 Dose: 10 mg Atorvastatin Calcium (Lipitor) 20 mg PO DAILY [facility] Last Admin: 01/04/18 08:51 Dose: 20 mg Calcitriol (Rocaltrol) 0.5 mcg PO QOTHERDAY [facility] Last Admin: 01/03/18 12:57 Dose: 0.5 mcg Calcium Carbonate (Oscal) 500 mg PO TID [facility] Last Admin: 01/04/18 08:51 Dose: 500 mg Clonidine HCl (Catapres) 0.1 mg PO Q6 PRN PRN Reason: bp >160/90 Last Admin: 01/04/18 00:50 Dose: 0.1 mg Epoetin Seth (Procrit) 2,000 unit IV TTS ONE Stop: 01/05/18 08:58 Heparin Sodium (Porcine) (Heparin) 5,000 units SC Q12 [facility] PRN Reason: Protocol Last Admin: 01/04/18 08:51 Dose: 5,000 units Hydroxyzine HCl (Atarax) 25 mg PO TID [facility] Last Admin: 01/04/18 08:51 Dose: 25 mg Labetalol HCl (Trandate) 100 mg PO BID [facility] Last Admin: 01/04/18 08:52 Dose: 100 mg Mirtazapine (Remeron) 7.5 mg PO HS [facility] Last Admin: 01/03/18 22:00 Dose: Not Given Vitamin B Complex/Vit C/Folic Acid (Nephro-Valentino) 1 tab PO DAILY [facility] Last Admin: 01/04/18 08:50 Dose: 1 tab - Labs Labs: 01/03/18 07:30 01/03/18 07:30 PT 10.1 Seconds (9.8-13.1) 01/02/18 17:58 INR 0.9 (0.9-1.2) 01/02/18 17:58 APTT 35.2 Seconds (25.6-37.1) 01/02/18 17:58 - Constitutional Appears: No Acute Distress - Eye Exam Eye Exam: Conjunctival injection - ENT Exam ENT Exam: Mucous Membranes Moist - Neck Exam Neck Exam: absent: Lymphadenopathy - Respiratory Exam Respiratory Exam: NORMAL BREATHING PATTERN. absent: Chest Wall Tenderness - Cardiovascular Exam Cardiovascular Exam: REGULAR RHYTHM. absent: Gallop, JVD, Rubs - GI/Abdominal Exam GI & Abdominal Exam: Soft, Normal Bowel Sounds - Extremities Exam Extremities Exam: absent: Calf Tenderness - Back Exam Back Exam: absent: CVA tenderness (L), CVA tenderness (R) - Neurological Exam Neurological Exam: Alert, Altered - Psychiatric Exam Psychiatric exam: Flat Affect - Skin Skin Exam: absent: Cyanosis Assessment and Plan (1) Hyperkalemia Status: Acute (2) ESRD (end stage renal disease) Assessment & Plan: And to stage renal disease patient completed hemodialysis yesterday through left upper arm AV shunt Patient has been refusing dialysis intermittently Hypertension on medications. Hyperphosphatemia stable phosphorus receiving medication. Secondary hyperparathyroidism PTH still pending. Anemia patient started on EPO. Hemodialysis tomorrow Status: Chronic
--- NOTE | 2018-01-04 13:39 | PN ---
DATE: 01/04/2018 SUBJECTIVE: The patient is seen and examined. Interim events noted. Consults noted and appreciated. Cardiology and Nephrology and Surgery followup and interventions noted and appreciated. The patient remains in progressive care unit, on telemetry monitoring dialysis at least for short term. Denies any chest pain or shortness of breath. No specific issues reported by the nursing staff. PHYSICAL EXAMINATION: GENERAL: The patient is in no acute distress. VITAL SIGNS: Stable. HEART: S1, S2, normal and regular. LUNGS: Good bilateral air exchange. ABDOMEN: Soft and nontender. EXTREMITIES: No edema. No calf swelling. No tenderness. No acute ischemia. 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 The patient has left upper extremity dialysis access, AV shunt, which seems to be functioning fine with . Telemetry monitoring does not reveal significant arrhythmias. ASSESSMENT AND PLAN: Overall, the patient's general medical condition is stable. Plan as ordered. Darnell Rosado MD
[2018-01-05] MEDS ORDERED: Epoetin Alfa 20000 UNIT/ML Inj IV ONE (08:57)
[2018-01-05] MEDS: Multivitamin Vitamin B Complex (Nephro-Vite) Tab PO SCH (09:06)
[2018-01-05] MEDS ORDERED: Lidocaine/Prilocaine CREAM 5GM TP ONE (10:34)
--- NOTE | 2018-01-05 12:51 | PN ---
DATE: 01/05/2018 SUBJECTIVE: The patient is seen and examined. Interim events noted. Consults noted and appreciated. Nephrology followup and intervention noted and appreciated. The patient remains in progressive care unit, on telemetry monitoring. The patient feels okay. Denies any chest pain or shortness of breath. PHYSICAL EXAMINATION: GENERAL: The patient is in no acute distress. VITAL SIGNS: Stable. HEART: S1 and S2, normal and regular. LUNGS: Good bilateral air exchange. ABDOMEN: Soft and nontender. EXTREMITIES: No calf swelling. No tenderness. No acute ischemia. Left upper extremity fistula is functioning fine with good . No sign of distal complication. FURNITURE MAKER: Exam is essentially unchanged. DIAGNOSTIC DATA: Available diagnostic data reviewed. Telemetry monitoring does not reveal significant arrhythmia. ASSESSMENT AND PLAN: Overall, the patient's general medical condition is stable. Plan as ordered. Darnell Rosado MD
--- NOTE | 2018-01-05 15:29 | CP.PCM.PN ---
Subjective - Date & Time of Evaluation Date of Evaluation: 01/05/18 Time of Evaluation: 09:45 - Subjective Subjective: RENAL FOLLOW UP S: Seen and examined dneies n/l o:vs as below gen: nad sclera: anicteric op: clear neck: supple no thyromegaly cv: +S1+s2 no rub lungs: cta b/l abd: soft nt/nd ext: no edema neuro: a+ox3 psych: nml affect skin no rash imp: ESRD/ Hypertensive kidney disease /Hyperkalemia / ANemia of renal disease/ secondary hyparpara plan: HD today can trial b-floresita for bp - would avoid conchita/arb given hx of hyperkalemia k improved hgb stable on calcitriol Objective - Vital Signs/Intake and Output Vital Signs (last 24 hours): Temp Pulse Resp BP Pulse Ox 98.0 F 67 20 176/70 H 96 01/05/18 12:35 01/05/18 12:35 01/05/18 12:35 01/05/18 12:35 01/05/18 12:35 - Medications Medications: Current Medications Acetaminophen (Tylenol 325mg Tab) 650 mg PO Q6 PRN PRN Reason: Pain, moderate (4-7) Last Admin: 01/05/18 14:30 Dose: 650 mg Amlodipine Besylate (Norvasc) 10 mg PO DAILY [facility] Last Admin: 01/05/18 09:07 Dose: Not Given Atorvastatin Calcium (Lipitor) 20 mg PO DAILY [facility] Last Admin: 01/05/18 09:06 Dose: 20 mg Calcitriol (Rocaltrol) 0.5 mcg PO QOTHERDAY [facility] Last Admin: 01/05/18 09:05 Dose: 0.5 mcg Calcium Carbonate (Oscal) 500 mg PO TID [facility] Last Admin: 01/05/18 12:03 Dose: 500 mg Clonidine HCl (Catapres) 0.1 mg PO Q6 PRN PRN Reason: bp >160/90 Last Admin: 01/04/18 00:50 Dose: 0.1 mg Heparin Sodium (Porcine) (Heparin) 5,000 units SC Q12 [facility] PRN Reason: Protocol Last Admin: 01/05/18 09:04 Dose: 5,000 units Hydroxyzine HCl (Atarax) 25 mg PO TID [facility] Last Admin: 01/05/18 12:03 Dose: 25 mg Labetalol HCl (Trandate) 100 mg PO BID [facility] Last Admin: 01/05/18 09:07 Dose: Not Given Mirtazapine (Remeron) 7.5 mg PO HS [facility] Last Admin: 01/04/18 22:30 Dose: Not Given Vitamin B Complex/Vit C/Folic Acid (Nephro-Valentino) 1 tab PO DAILY [facility] Last Admin: 01/05/18 09:06 Dose: 1 tab - Labs Labs: 01/03/18 07:30 01/03/18 07:30 PT 10.1 Seconds (9.8-13.1) 01/02/18 17:58 INR 0.9 (0.9-1.2) 01/02/18 17:58 APTT 35.2 Seconds (25.6-37.1) 01/02/18 17:58
[2018-01-06 07:22] LABS: HEMOGLOBIN 10.6 g/dL (12.0-16.0); MEAN CORPUSCULAR HEMOGLOBIN 29.6 pg (27.0-31.0); MEAN CORPUSCULAR HGB CONC 34.6 g/dL (33.0-37.0); RBC 3.59 Mil/uL (3.80-5.20); RED CELL DISTRIBUTION WIDTH 14.2 % (11.5-14.5); WHITE BLOOD COUNT 3.9 K/uL (4.8-10.8)
[2018-01-06 07:24] LABS: ALB/GLOB RATIO 1.4 (1.0-2.1); ALBUMIN 3.7 g/dL (3.5-5.0)
[2018-01-06 07:48] LABS: MEAN CELL VOLUME 85.6 fl (81.0-99.0)
[2018-01-06] MEDS: Multivitamin Vitamin B Complex (Nephro-Vite) Tab PO SCH (08:34)
--- NOTE | 2018-01-06 12:39 | PN ---
DATE: 01/06/2018 SUBJECTIVE: The patient is seen and examined. Interim events noted. Consults noted and appreciated. Nephrology followup and intervention noted and appreciated. The patient remains in progressive care unit on telemetry monitoring. The patient had dialysis done. The patient feels okay. Denies any chest pain, shortness of breath, palpitations, or dizziness.. PHYSICAL EXAMINATION: GENERAL: The patient is in no acute distress. VITAL SIGNS: Stable. HEART: S1 and S2 normal and regular. LUNGS: Good bilateral air exchange. ABDOMEN: Soft and nontender. EXTREMITIES: The patient has . No sign of distal complication. No edema. No calf swelling or tenderness. No acute ischemia. 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 DIAGNOSTIC DATA: Available diagnostic data reviewed. Telemetry monitoring does not show . ASSESSMENT AND PLAN: Overall, the patient is clinically stable. Plan as ordered. Darnell Rosado MD
[2018-01-07 05:56] LABS: HEMOGLOBIN 9.7 g/dL (12.0-16.0); MEAN CORPUSCULAR HEMOGLOBIN 29.8 pg (27.0-31.0); MEAN CORPUSCULAR HGB CONC 34.6 g/dL (33.0-37.0); RBC 3.25 Mil/uL (3.80-5.20); RED CELL DISTRIBUTION WIDTH 13.8 % (11.5-14.5); WHITE BLOOD COUNT 3.8 K/uL (4.8-10.8)
[2018-01-07 06:12] LABS: ALB/GLOB RATIO 1.3 (1.0-2.1); ALBUMIN 3.4 g/dL (3.5-5.0); CALCIUM 8.9 mg/dL (8.4-10.2)
[2018-01-07 08:06] VITALS: RESP 20
--- NOTE | 2018-01-07 09:39 | CP.PCM.PN ---
Subjective - Date & Time of Evaluation Date of Evaluation: 01/07/18 Time of Evaluation: 09:37 - Subjective Subjective: Patient doing much better No nausea no vomiting Eating well Objective - Vital Signs/Intake and Output Vital Signs (last 24 hours): Temp Pulse Resp BP Pulse Ox 97.6 F 61 20 161/55 H 99 01/07/18 08:06 01/07/18 08:06 01/07/18 08:06 01/07/18 08:06 01/07/18 08:06 - Medications Medications: Current Medications Acetaminophen (Tylenol 325mg Tab) 650 mg PO Q6 PRN PRN Reason: Pain, moderate (4-7) Last Admin: 01/06/18 13:51 Dose: 650 mg Amlodipine Besylate (Norvasc) 10 mg PO DAILY [facility] Last Admin: 01/06/18 08:33 Dose: 10 mg Atorvastatin Calcium (Lipitor) 20 mg PO DAILY [facility] Last Admin: 01/06/18 08:34 Dose: 20 mg Calcitriol (Rocaltrol) 0.5 mcg PO QOTHERDAY [facility] Last Admin: 01/05/18 09:05 Dose: 0.5 mcg Calcium Carbonate (Oscal) 500 mg PO TID [facility] Last Admin: 01/06/18 16:23 Dose: 500 mg Clonidine HCl (Catapres) 0.1 mg PO Q6 [facility] Last Admin: 01/07/18 04:40 Dose: 0.1 mg Heparin Sodium (Porcine) (Heparin) 5,000 units SC Q12 [facility] PRN Reason: Protocol Last Admin: 01/06/18 21:15 Dose: 5,000 units Hydroxyzine HCl (Atarax) 25 mg PO TID [facility] Last Admin: 01/06/18 16:24 Dose: 25 mg Labetalol HCl (Trandate) 100 mg PO TID [facility] Mirtazapine (Remeron) 7.5 mg PO HS [facility] Last Admin: 01/06/18 21:16 Dose: 7.5 mg Vitamin B Complex/Vit C/Folic Acid (Nephro-Valentino) 1 tab PO DAILY [facility] Last Admin: 01/06/18 08:34 Dose: 1 tab - Labs Labs: 01/07/18 05:20 01/07/18 05:20 PT 10.1 Seconds (9.8-13.1) 01/02/18 17:58 INR 0.9 (0.9-1.2) 01/02/18 17:58 APTT 35.2 Seconds (25.6-37.1) 01/02/18 17:58 - Constitutional Appears: No Acute Distress - ENT Exam ENT Exam: Mucous Membranes Moist - Neck Exam Neck Exam: absent: Lymphadenopathy - Respiratory Exam Respiratory Exam: NORMAL BREATHING PATTERN. absent: Chest Wall Tenderness - Cardiovascular Exam Cardiovascular Exam: absent: JVD, Rubs - GI/Abdominal Exam GI & Abdominal Exam: Soft, Normal Bowel Sounds - Extremities Exam Extremities Exam: absent: Calf Tenderness - Back Exam Back Exam: absent: CVA tenderness (L), CVA tenderness (R) - Neurological Exam Neurological Exam: Alert - Psychiatric Exam Psychiatric exam: Normal Affect - Skin Skin Exam: absent: Cyanosis Assessment and Plan (1) Hyperkalemia Status: Acute (2) ESRD (end stage renal disease) Assessment & Plan: End stage renal disease Patient for dialysis TTS scheduled for tomorrow Hypertension continue on antihypertensive medications Secondary hyperparathyroidism PTH pending Hyperphosphatemia continue binders Anemia continue EPO Status: Chronic
[2018-01-07] MEDS: Multivitamin Vitamin B Complex (Nephro-Vite) Tab PO SCH (10:11)
--- NOTE | 2018-01-07 12:37 | PN ---
DATE: 01/07/2018 SUBJECTIVE: The patient is seen and examined. Interim events noted. Consults noted and appreciated. The patient remains in progressive care unit. The patient is sleepy and arousable. Feels okay. Denies any chest pain, shortness of breath. PHYSICAL EXAMINATION: GENERAL: The patient is in no acute distress. VITAL SIGNS: Stable. HEART: S1, S2, normal and regular. LUNGS: Good bilateral air exchange. ABDOMEN: Soft and nontender. EXTREMITIES: No edema. No calf swelling. No tenderness. No acute ischemia. CENTRAL NERVOUS SYSTEM: Exam is essentially unchanged. DIAGNOSTIC DATA: Available diagnostic data reviewed. ASSESSMENT AND PLAN: Overall, the patient's general medical condition is stable. Plan as ordered. Darnell Rosado MD
[2018-01-07 16:10] VITALS: BP 139/59; TEMP 97.8; O2SAT 98
[2018-01-07 17:19] VITALS: PULSE 62
== END 2018-01-07 18:50 | disposition home or self-care (01) | DRG 640 ==
LOC: H.ER 15:36 → H.ERHOLD 19:21 → H.TEL 01-03 02:05
PROVIDERS: ADMIT Internal Medicine; ATTEND Internal Medicine
PROC: 5A1D70Z Performance of Urinary Filtration, Intermittent, Less than 6 Hours Per Day (ICD-10-PCS; principal; 2018-01-03)
PROC: 5A1D70Z Performance of Urinary Filtration, Intermittent, Less than 6 Hours Per Day (ICD-10-PCS; 2018-01-05)
DX: E87.5 Hyperkalemia (principal); N18.6 End stage renal disease; I13.2 Hypertensive heart and chronic kidney disease with heart failure and with stage 5 chronic kidney disease, or end stage renal disease; N17.9 Acute kidney failure, unspecified; F02.80 Dementia in other diseases classified elsewhere, unspecified severity, without behavioral disturbance, psychotic disturbance, mood disturbance, and anxiety; G30.9 Alzheimer's disease, unspecified; I50.9 Heart failure, unspecified; I27.20 Pulmonary hypertension, unspecified; I35.0 Nonrheumatic aortic (valve) stenosis; J44.9 Chronic obstructive pulmonary disease, unspecified; Z82.49 Family history of ischemic heart disease and other diseases of the circulatory system; Z87.01 Personal history of pneumonia (recurrent); Z87.442 Personal history of urinary calculi; Z90.49 Acquired absence of other specified parts of digestive tract; Z91.15 Patient's noncompliance with renal dialysis; F19.90 Other psychoactive substance use, unspecified, uncomplicated; F41.9 Anxiety disorder, unspecified; K59.00 Constipation, unspecified; Z79.899 Other long term (current) drug therapy; M54.9 Dorsalgia, unspecified; N18.9 Chronic kidney disease, unspecified; D63.1 Anemia in chronic kidney disease; E78.00 Pure hypercholesterolemia, unspecified; E78.5 Hyperlipidemia, unspecified

== ENCOUNTER 2018-01-19 20:06 | Inpatient (IN) | payer MEDICARE ==
[2018-01-19 20:07] VITALS: BMI 17.2
[2018-01-19] MEDS ORDERED: Nitroglycerin 50mg in D5W 50 MG/250 ML BOTTLE IV ONE ×2 (21:10→21:42)
[2018-01-19] MEDS ORDERED: Benzoin Compund Tincture 30 ML TP ONE (21:11)
[2018-01-19] MEDS ORDERED: Albuterol-Ipratrop 3 mg / 0.5 (3 ml) UD ONE (21:15)
[2018-01-19 21:33] LABS: ABG ALLEN TEST YES; ARTERIAL BLOOD GAS HCO3 22.9 mmol/L (21-28); ARTERIAL BLOOD GAS HEMOGLOBIN 11.2 g/dL (11.7-17.4); ARTERIAL BLOOD GAS O2 CAPACITY 15.1 mL/dL (16-24); ARTERIAL BLOOD GAS O2 CONTENT 15.1 ML/dL (15-23); ARTERIAL BLOOD GAS O2 SAT 100.3 % (95-98); ARTERIAL BLOOD GAS PCO2 35 mm/Hg (35-45); ARTERIAL BLOOD GAS PO2 87 mm/Hg (80-100); ARTERIAL BLOOD GAS TCO2 22.8 mmol/L (22-28)
[2018-01-19] MEDS ORDERED: Albuterol-Ipratrop 3 mg / 0.5 (3 ml) UD INH STA (21:43)
[2018-01-19 21:53] LABS: INR 0.9 (0.9-1.2); PARTIAL THROMBOPLASTIN TIME 20.9 Seconds (25.6-37.1); PROTHROMBIN TIME 10.4 Seconds (9.8-13.1)
[2018-01-19 23:03] LABS: BASO # 0.1 K/uL (0.0-0.2); BASO % 0.8 % (0.0-2.0); EOS # 0.3 K/uL (0.0-0.7); EOS % 3.1 % (0.0-4.0); HEMOGLOBIN 10.5 g/dL (12.0-16.0); LYMPH # 0.8 K/uL (1.0-4.3); LYMPH % 8.4 % (20.0-40.0); MEAN CELL VOLUME 86.7 fl (81.0-99.0); MEAN CORPUSCULAR HEMOGLOBIN 29.2 pg (27.0-31.0); MEAN CORPUSCULAR HGB CONC 33.6 g/dL (33.0-37.0); MONO # 0.6 K/uL (0.0-0.8); MONO % 6.1 % (0.0-10.0); NEUT # 7.5 K/uL (1.8-7.0); NEUT % 81.6 % (50.0-75.0); PLATELET COUNT 142 K/uL (130-400); RBC 3.62 Mil/uL (3.80-5.20); RED CELL DISTRIBUTION WIDTH 14.6 % (11.5-14.5); WHITE BLOOD COUNT 9.2 K/uL (4.8-10.8)
--- NOTE | 2018-01-19 23:21 | ED PDOC ---
HPI: SOB/CHF/COPD Time Seen by Provider: 01/19/18 21:20 Chief Complaint (Nursing): Shortness Of Breath Chief Complaint (Provider): shortness of breath History Per: Family History/Exam Limitations: clinical condition Additional Complaint(s): presented to ER initially for 3 days for increasing foot/lower leg swelling. while in triage, suddenly because severely short of breath and uncomfortable. unable to give any further history due to acute respiratory distress. Renal failure pt essentially noncompliant with outpatient hemodialysis. Last HD ws during last admission last month. PMD Dr Genaro Martínez. Past Medical History Reviewed: Historical Data, Nursing Documentation, Vital Signs Vital Signs: Last Vital Signs Temp 98.0 F 01/20/18 16:04 Pulse 75 01/20/18 16:04 Resp 16 01/20/18 16:04 BP 136/60 01/20/18 16:04 Pulse Ox 98 01/20/18 16:04 - Medical History PMH: Alzheimer's Disease, Anemia, Anxiety, CHF, Dementia, HTN, Hypercholesterolemia, Pneumonia, End Stage Renal Disease, Chronic Kidney Disease Denies: HIV, Kidney Stones, Schizophrenia - Surgical History Surgical History: Appendectomy, Tonsillectomy Other surgeries: LEFT upper arm AV shunt - Family History Family History: States: Unknown Family Hx, Hypertension - Social History Current smoker - smoking cessation education provided: No - Immunization History Hx Tetanus Toxoid Vaccination: No Hx Influenza Vaccination: No Hx Pneumococcal Vaccination: No - Home Medications Home Medications: Ambulatory Orders Medication Instructions Recorded Atorvastatin [Lipitor] 20 mg PO DAILY 08/16/16 Labetalol [Trandate] 100 mg PO BID 08/16/16 amLODIPine [Norvasc] 10 mg PO DAILY 08/16/16 Calcium Carbonate [Oscal] 500 mg PO TID 10/16/17 B Complex W-C No.20/Folic Acid 1 cap PO DAILY 01/03/18 [Virt-Caps Softgel] Calcitriol 1 cap PO QOTHERDAY 01/03/18 Mirtazapine [Remeron] 1 tab PO HS 01/03/18 hydrOXYzine HCl [Atarax] 1 tab PO TID 01/03/18 cloNIDine [Catapres] 0.1 mg PO Q8 #30 tab 01/07/18 - Allergies Allergies/Adverse Reactions: Allergies Allergy/AdvReac Type Severity Reaction Status Date / Time No Known Allergies Allergy Verified 01/02/18 16:12 Review of Systems Review Of Systems: ROS cannot be obtained secondary to pt's inabilty to answer questions. Physical Exam - Reviewed Nursing Documentation Reviewed: Yes Vital Signs Reviewed: Yes - Physical Exam Appears: Positive for: Uncomfortable, In Acute Distress Head Exam: Positive for: ATRAUMATIC, NORMOCEPHALIC Skin: Positive for: Warm, Dry Eye Exam: Positive for: EOMI, PERRL ENT: Positive for: Pharynx Is (clear) Neck: Positive for: Painless ROM, Supple Cardiovascular/Chest: Positive for: Regular Rate, Rhythm, Edema, JVD, Tachycardia Respiratory: Positive for: Decreased Breath Sounds, Accessory Muscle Use, Respiratory Distress (severe), Other (poor air movement) Gastrointestinal/Abdominal: Positive for: Soft. Negative for: Tenderness Back: Positive for: Normal Inspection. Negative for: Decreased ROM Extremity: Positive for: Normal ROM, Pedal Edema, Other (L upper arm: AV shunt with palpable thrill). Negative for: Deformity Lymphatic: Negative for: Adenopathy Neurologic/Psych: Positive for: Alert, Mood/Affect (anxious mood and affect). Negative for: Motor/Sensory Deficits - Laboratory Results Result Diagrams: 01/20/18 06:51 01/20/18 06:51 - ECG ECG Rhythm: Positive for: Normal QRS, Sinus Rhythm, Nonspecific Changes O2 Sat by Pulse Oximetry: 99 - Radiology X-Ray Interpretation: Cardiomegaly, Other (RIGHT pleural effusion, vascular congestoin) - Progress ED Course And Treament: Emergent treatment required on arrival to ER. Pt appeared to be in acute flash pulmonary edema, very elevated BP, poor air movement/faint rales diffusely, O2 83% Bipap, lasix, ntg, duonebs emergently initiated. 2200 Pt markedly improved. BP normalizing. Ntg drip dc'd 2300 Pt continues to demonstrate respiratory improvement. Labs drawn by me due to inability for RN to obtain labs. Bipap discontinued. 0000 Labs demonstrate renal failure. Trop negative. [facility]. Re-evaluation Time: 22:00 Condition: Improving,but remains with symptoms - Critical Care Total Time (In Min): 45 Documented Critical Care: Time excludes all time spent performint seperately billable procedures Disposition - Clinical Impression Clinical Impression: Acute pulmonary edema, Renal failure (ARF), acute on chronic Counseled Patient/Family Regarding: Studies Performed, Diagnosis - Disposition Disposition Time: 21:00 Condition: GUARDED - Pt Status Changed To: Hospital Disposition Of: Inpatient - Admit Certification Admit to Inpatient:: After my assessment, the patient will require hospitalization for at least two midnights. This is because of the severity of symptoms shown, intensity of services needed, and/or the medical risk in this patient being treated as an outpatient. - POA Present On Arrival: None
[2018-01-19 23:33] LABS: TROPONIN I 0.019 ng/mL (0.00-0.120)
[2018-01-19 23:39] LABS: ALB/GLOB RATIO 1.9 (1.0-2.1); ALBUMIN 4.2 g/dL (3.5-5.0); CALCIUM 9.4 mg/dL (8.4-10.2)
[2018-01-20] MEDS: Albuterol-Ipratrop 3 mg / 0.5 (3 ml) UD INH SCH ×4 (02:20→19:29)
[2018-01-20 03:30] LABS: BANDS 2 % (0-2); EOSINOPHIL 1 % (0-7); LYMPHOCYTE 9 % (20-50); MONOCYTE 6 % (0-10); NEUTROPHIL 82 % (42-75); PLATELET ESTIMATE NORMAL (NORMAL); TOTAL CELLS COUNTED 100
[2018-01-20 08:04] LABS: HEMOGLOBIN 9.5 g/dL (12.0-16.0); MEAN CELL VOLUME 87.5 fl (81.0-99.0); MEAN CORPUSCULAR HEMOGLOBIN 29.6 pg (27.0-31.0); MEAN CORPUSCULAR HGB CONC 33.8 g/dL (33.0-37.0); RBC 3.21 Mil/uL (3.80-5.20); RED CELL DISTRIBUTION WIDTH 14.4 % (11.5-14.5); WHITE BLOOD COUNT 5.2 K/uL (4.8-10.8)
[2018-01-20 08:27] LABS: TROPONIN I 0.063 ng/mL (0.00-0.120)
[2018-01-20 08:34] LABS: CALCIUM 9.4 mg/dL (8.4-10.2)
--- NOTE | 2018-01-20 09:27 | RAD ---
PROCEDURE: CHEST RADIOGRAPH, 1 VIEW HISTORY: Shortness of breath shortness of breath COMPARISON: 01/02/2018 FINDINGS: LUNGS: Multifocal infiltrates likely cardiogenic pulmonary edema. PLEURA: No pneumothorax or pleural fluid seen. CARDIOVASCULAR: Cardiomegaly OSSEOUS STRUCTURES: No significant abnormalities. VISUALIZED UPPER ABDOMEN: Normal. OTHER FINDINGS: None. IMPRESSION: Cardiomegaly/acute pulmonary edema.
[2018-01-20] MEDS ORDERED: Epoetin Alfa 4000 UNIT/ML Inj IV SCH (11:00)
[2018-01-20] MEDS: Multivitamin Vitamin B Complex (Nephro-Vite) Tab PO SCH (11:55)
--- NOTE | 2018-01-20 17:10 | CP.PCM.CON ---
History of Present Illness - History of Present Illness History of Present Illness: Initial Nephrology Consultation: Assessment: critical HTN emergency with pulmonary edema End stage renal disease on hemodialysis via AVF with missed HD> 1 week: Anemia, Hyperphosphatemia, Secondary hyperparathyroidism, HTN, dementia non compliance with HD aortic stenosis/sclerosis Plan: Will plan for HD today as ordered. Will plan for dialysis next as TTS. Continue with Nephrovite 1 tab/day. PRBC as needed for anemia. On STEWART as epogen 4000 unit with HD, last Hb 9.5 Continue with phos binders, check phos level last PTH 113 hence no need for calcitriol BP control with meds as ordered. Patient on RAAS floresita as Lisinopril Glycemic control, Dialysis consistent diet Further work up/management as per primary team Dose meds/antibiotics (if needed) for ESRD status. Avoid fleets enema/magnesium based laxatives. Thanks for allowing me to participate in care of your patient. Will follow patient with you. Please call if any Qs Dr Sridhar Day Office: [phone] Chief Complaint; missed HD HPI: Pt is a 77 F y/o with hx of ESRD on hemodialysis via AVF, last dialysis >1 week ago, chronic anemia, hyperphosphatemia, secondary hyperparathyroidism, hypertension, dementia came with missed HD and developed HTN emergency in ER with pulm edema. pt has dementia. She denied chest pain, palpitation, shortness of breath, leg swelling now and feels better ROS: unable much reliably due to her dementia. overall denies CP/SOB/nasuea/ vomittign. rest all other neg Physical Examination: General Appearance: Comfortable, in no acute respiratory distress, co-operative . Vitals reviewed and noted as below Head; Atraumatic, normocephalic ENT: no ulcers no thrush. Tongue is midline. Oropharynx: no rash or ulcers. EYES: Pupils are equal, round and reactive to light accommodation. Eye muscles and extraocular movement intact. Sclera is anicteric. Neck; supple no lymphadenopathy, no thyromegaly or bruit Lungs: Normal respiratory rate/effort. Breath sounds bilateral equal and with few basal crackles Heart: Normal rate. s1s2 normal. No rub or gallop. Extremities: no edema. No varicose veins Neurological: Patient is alert, awake and demented. No focal deficit. Strength bilateral appropriate and equal Skin: Warm and dry. Normal turgor. No rash. Palpitation: Normal elasticity for age Abdomen: Abdomen is soft. Bowel sounds +. There is no abdominal tenderness, no guarding/rigidity or organomegaly Psych: lack insight and has normal affect/mood MSK: no joint tenderness or swelling. Digits and nails normal, no deformity : kidney or bladder not palpable Access: AVF Labs/imaging reviewed. Past medical history, past surgical history, family history, social history, allergy reviewed and noted as below Past Patient History - Infectious Disease Hx of Infectious Diseases: None - Tetanus Immunizations Tetanus Immunization: Unknown - Past Medical History & Family History Past Medical History?: Yes - Past Social History Smoking Status: Never Smoked - CARDIAC Hx Congestive Heart Failure: Yes Hx Hypercholesterolemia: Yes Hx Hypertension: Yes - PULMONARY Hx Pneumonia: Yes - NEUROLOGICAL Hx Alzheimer's Disease: Yes Hx Dementia: Yes - HEENT Hx HEENT Problems: No - RENAL Hx Chronic Kidney Disease: Yes Hx Kidney Stones: No - ENDOCRINE/METABOLIC Hx Endocrine Disorders: No - HEMATOLOGICAL/ONCOLOGICAL Hx Anemia: Yes Hx Human Immunodeficiency Virus (HIV): No - INTEGUMENTARY Hx Dermatological Problems: No - MUSCULOSKELETAL/RHEUMATOLOGICAL Hx Falls: No - GASTROINTESTINAL Hx Gastrointestinal Disorders: Yes Hx Constipation: Yes - GENITOURINARY/GYNECOLOGICAL Hx Genitourinary Disorders: Yes - PSYCHIATRIC Hx Anxiety: Yes Hx Schizophrenia: No - SURGICAL HISTORY Hx Appendectomy: Yes Hx Tonsillectomy: Yes - ANESTHESIA Hx Anesthesia: Yes Hx Anesthesia Reactions: No Hx Malignant Hyperthermia: No Meds Allergies/Adverse Reactions: Allergies Allergy/AdvReac Type Severity Reaction Status Date / Time No Known Allergies Allergy Verified 01/02/18 16:12 - Medications Medications: Current Medications Albuterol/Ipratropium (Duoneb 3 Mg/0.5 Mg (3 Ml) Ud) 3 ml INH RQ6 [facility] Last Admin: 01/20/18 13:21 Dose: 3 ml Amlodipine Besylate (Norvasc) 10 mg PO DAILY [facility] Last Admin: 01/20/18 11:43 Dose: 10 mg Atorvastatin Calcium (Lipitor) 20 mg PO HS [facility] Calcitriol (Rocaltrol) 0.5 mcg PO QOTHERDAY [facility] Calcium Carbonate (Oscal) 500 mg PO TID [facility] Last Admin: 01/20/18 16:05 Dose: 500 mg Clonidine HCl (Catapres) 0.1 mg PO Q8 [facility] Epoetin Seth (Procrit) 4,000 unit IV TTS [facility] Last Admin: 01/20/18 15:42 Dose: 4,000 unit Heparin Sodium (Porcine) (Heparin) 5,000 units SC Q8 [facility] PRN Reason: Protocol Last Admin: 01/20/18 16:05 Dose: 5,000 units Hydroxyzine HCl (Atarax) 25 mg PO TID [facility] Last Admin: 01/20/18 16:06 Dose: 25 mg Labetalol HCl (Trandate) 100 mg PO BID [facility] Mirtazapine (Remeron) 7.5 mg PO HS [facility] Vitamin B Complex/Vit C/Folic Acid (Nephro-Valentino) 1 tab PO DAILY [facility] Last Admin: 01/20/18 11:55 Dose: 1 tab Results - Vital Signs Recent Vital Signs: Last Vital Signs Temp 98.0 F 01/20/18 16:04 Pulse 75 01/20/18 16:04 Resp 16 01/20/18 16:04 BP 136/60 01/20/18 16:04 Pulse Ox 99 01/20/18 16:58 - Labs Result Diagrams: 01/20/18 06:51 01/20/18 06:51 Labs: Laboratory Results - last 24 hr 01/19/18 01/19/18 01/19/18 21:12 21:31 22:59 WBC RBC Hgb Hct MCV MCH MCHC RDW Plt Count MPV Neut % (Auto) Lymph % (Auto) Thomas % (Auto) Eos % (Auto) Baso % (Auto) Neut # (Auto) Lymph # (Auto) Thomas # (Auto) Eos # (Auto) Baso # (Auto) Neutrophils % (Manual) Band Neutrophils % Lymphocytes % (Manual) Monocytes % (Manual) Eosinophils % (Manual) Platelet Estimate PT 10.4 INR 0.9 APTT 20.9 L pCO2 35 pO2 87 HCO3 22.9 ABG pH 7.40 ABG Total CO2 22.8 ABG O2 Saturation 100.3 H ABG O2 Content 15.1 ABG Base Excess -2.6 L ABG Hemoglobin 11.2 L ABG Carboxyhemoglobin 2.4 H POC ABG HHb (Measured) -0.3 L ABG Methemoglobin 2.5 ABG O2 Capacity 15.1 L Nacho Test Yes A-a O2 Difference 226.0 Hgb O2 Saturation 95.3 Vent Mode Bipap Mechanical Rate 16 FiO2 50.0 Inspiratory BiPAP 12 Expiratory BiPAP 6 Sodium 132 Potassium 5.0 Chloride 98 Carbon Dioxide 18 L Anion Gap 21 H BUN 58 H Creatinine 4.9 H Est GFR ( Amer) 10 Est GFR (Non-Af Amer) 9 POC Glucose (mg/dL) Random Glucose 130 H Calcium 9.4 Phosphorus 4.0 Magnesium 1.9 Total Bilirubin 0.9 AST 51 H D ALT 61 H D Alkaline Phosphatase 111 Troponin I 0.0190 NT-Pro-B Natriuret Pep 48912 H Total Protein 6.5 Albumin 4.2 Globulin 2.3 Albumin/Globulin Ratio 1.9 01/19/18 01/20/18 01/20/18 22:59 06:51 06:51 WBC 9.2 D 5.2 RBC 3.62 L 3.21 L Hgb 10.5 L 9.5 L Hct 31.4 L 28.1 L MCV 86.7 87.5 MCH 29.2 29.6 MCHC 33.6 33.8 RDW 14.6 H 14.4 Plt Count 142 122 L D MPV 11.0 Neut % (Auto) 81.6 H Lymph % (Auto) 8.4 L Thomas % (Auto) 6.1 Eos % (Auto) 3.1 Baso % (Auto) 0.8 Neut # (Auto) 7.5 H Lymph # (Auto) 0.8 L Thomas # (Auto) 0.6 Eos # (Auto) 0.3 Baso # (Auto) 0.1 Neutrophils % (Manual) 82 H Band Neutrophils % 2 Lymphocytes % (Manual) 9 L Monocytes % (Manual) 6 Eosinophils % (Manual) 1 Platelet Estimate Normal PT INR APTT pCO2 pO2 HCO3 ABG pH ABG Total CO2 ABG O2 Saturation ABG O2 Content ABG Base Excess ABG Hemoglobin ABG Carboxyhemoglobin POC ABG HHb (Measured) ABG Methemoglobin ABG O2 Capacity Nacho Test A-a O2 Difference Hgb O2 Saturation Vent Mode Mechanical Rate FiO2 Inspiratory BiPAP Expiratory BiPAP Sodium 133 Potassium 4.7 Chloride 98 Carbon Dioxide 23 Anion Gap 17 BUN 60 H Creatinine 4.8 H Est GFR ( Amer) 11 Est GFR (Non-Af Amer) 9 POC Glucose (mg/dL) Random Glucose 93 Calcium 9.4 Phosphorus Magnesium Total Bilirubin AST ALT Alkaline Phosphatase Troponin I 0.0630 NT-Pro-B Natriuret Pep Total Protein Albumin Globulin Albumin/Globulin Ratio 01/20/18 11:16 WBC RBC Hgb Hct MCV MCH MCHC RDW Plt Count MPV Neut % (Auto) Lymph % (Auto) Thomas % (Auto) Eos % (Auto) Baso % (Auto) Neut # (Auto) Lymph # (Auto) Thomas # (Auto) Eos # (Auto) Baso # (Auto) Neutrophils % (Manual) Band Neutrophils % Lymphocytes % (Manual) Monocytes % (Manual) Eosinophils % (Manual) Platelet Estimate PT INR APTT pCO2 pO2 HCO3 ABG pH ABG Total CO2 ABG O2 Saturation ABG O2 Content ABG Base Excess ABG Hemoglobin ABG Carboxyhemoglobin POC ABG HHb (Measured) ABG Methemoglobin ABG O2 Capacity Nacho Test A-a O2 Difference Hgb O2 Saturation Vent Mode Mechanical Rate FiO2 Inspiratory BiPAP Expiratory BiPAP Sodium Potassium Chloride Carbon Dioxide Anion Gap BUN Creatinine Est GFR ( Amer) Est GFR (Non-Af Amer) POC Glucose (mg/dL) 169 H Random Glucose Calcium Phosphorus Magnesium Total Bilirubin AST ALT Alkaline Phosphatase Troponin I NT-Pro-B Natriuret Pep Total Protein Albumin Globulin Albumin/Globulin Ratio
--- NOTE | 2018-01-20 18:06 | CARD ---
APPROVED REPORT EKG Measurement Heart [id number] MS [id number] <Conclusion> Normal sinus rhythm Nonspecific T wave abnormality Abnormal ECG
[2018-01-21] MEDS: Albuterol-Ipratrop 3 mg / 0.5 (3 ml) UD INH SCH ×3 (01:00→13:16)
[2018-01-21 04:46] VITALS: O2SAT 96
--- NOTE | 2018-01-21 07:12 | CP.PCM.HP ---
History of Present Illness - History of Present Illness History of Present Illness: CC: Shortness of Breath History of Present Illness: Patient is poor Historian. A 77yoF with H/O HTN, CHF, ESRD on HD and Noncompliant to HD/Medications presented to ER for SOB and increasing foot/lower leg swelling. While in triage suddenly developed severely short of breath and uncomfortable. unable to give any further history due to acute respiratory distress. Last HD was during last admission last month. In the ER, she was found to have Accelerated HTN SBP>200, and CXR showed ACute Pulmonary Edema. No Chest pain, cough or fever. Present on Admission - Present on Admission Any Indicators Present on Admission: Yes History of Uncontrolled Diabetes: Yes Review of Systems - Review of Systems All systems: reviewed and no additional remarkable complaints except Past Patient History - Infectious Disease Hx of Infectious Diseases: None - Tetanus Immunizations Tetanus Immunization: Unknown - Past Medical History & Family History Past Medical History?: Yes Past Family History: Reviewed and not pertinent - Past Social History Smoking Status: Never Smoked Alcohol: Social Drugs: Denies - CARDIAC Hx Congestive Heart Failure: Yes Hx Hypercholesterolemia: Yes Hx Hypertension: Yes - PULMONARY Hx Pneumonia: Yes - NEUROLOGICAL Hx Alzheimer's Disease: Yes Hx Dementia: Yes - HEENT Hx HEENT Problems: No - RENAL Hx Chronic Kidney Disease: Yes Hx Kidney Stones: No - ENDOCRINE/METABOLIC Hx Endocrine Disorders: No - HEMATOLOGICAL/ONCOLOGICAL Hx Anemia: Yes Hx Human Immunodeficiency Virus (HIV): No - INTEGUMENTARY Hx Dermatological Problems: No - MUSCULOSKELETAL/RHEUMATOLOGICAL Hx Falls: No - GASTROINTESTINAL Hx Gastrointestinal Disorders: Yes Hx Constipation: Yes - GENITOURINARY/GYNECOLOGICAL Hx Genitourinary Disorders: Yes - PSYCHIATRIC Hx Anxiety: Yes Hx Schizophrenia: No - SURGICAL HISTORY Hx Appendectomy: Yes Hx Tonsillectomy: Yes - ANESTHESIA Hx Anesthesia: Yes Hx Anesthesia Reactions: No Hx Malignant Hyperthermia: No Meds Allergies/Adverse Reactions: Allergies Allergy/AdvReac Type Severity Reaction Status Date / Time No Known Allergies Allergy Verified 01/02/18 16:12 Physical Exam - Constitutional Appears: In Acute Distress, Chronically Ill - Head Exam Head Exam: ATRAUMATIC, NORMAL INSPECTION, NORMOCEPHALIC - Eye Exam Eye Exam: EOMI, Normal appearance, PERRL Pupil Exam: NORMAL ACCOMODATION, PERRL - ENT Exam ENT Exam: Mucous Membranes Moist, Normal Exam - Neck Exam Neck exam: Positive for: Normal Inspection - Respiratory Exam Respiratory Exam: Accessory Muscle Use, Decreased Breath Sounds, Rales, Wheezes - Cardiovascular Exam Cardiovascular Exam: REGULAR RHYTHM, +S1, +S2, Systolic Murmur - GI/Abdominal Exam GI & Abdominal Exam: Normal Bowel Sounds, Soft. absent: Tenderness - Extremities Exam Extremities exam: Positive for: normal capillary refill, normal inspection Additional comments: Left Arm AV fistula Murmur - Back Exam Back exam: NORMAL INSPECTION - Neurological Exam Neurological exam: Alert, CN II-XII Intact, Normal Gait, Oriented x3, Reflexes Normal - Psychiatric Exam Psychiatric exam: Normal Affect, Normal Mood - Skin Skin Exam: Dry, Intact, Normal Color, Warm Results - Vital Signs Recent Vital Signs: Last Vital Signs Temp 98.5 F 01/21/18 04:46 Pulse 74 01/21/18 05:09 Resp 17 01/21/18 04:46 BP 160/68 H 01/21/18 05:09 Pulse Ox 96 01/21/18 04:46 - Labs Result Diagrams: 01/20/18 06:51 01/20/18 06:51 Labs: Laboratory Results - last 24 hr 01/20/18 01/20/18 01/20/18 06:51 06:51 11:16 WBC 5.2 RBC 3.21 L Hgb 9.5 L Hct 28.1 L MCV 87.5 MCH 29.6 MCHC 33.8 RDW 14.4 Plt Count 122 L D Sodium 133 Potassium 4.7 Chloride 98 Carbon Dioxide 23 Anion Gap 17 BUN 60 H Creatinine 4.8 H Est GFR ( Amer) 11 Est GFR (Non-Af Amer) 9 POC Glucose (mg/dL) 169 H Random Glucose 93 Calcium 9.4 Troponin I 0.0630 01/20/18 01/20/18 01/21/18 16:47 22:16 05:11 WBC RBC Hgb Hct MCV MCH MCHC RDW Plt Count Sodium Potassium Chloride Carbon Dioxide Anion Gap BUN Creatinine Est GFR ( Amer) Est GFR (Non-Af Amer) POC Glucose (mg/dL) 130 H 127 H 94 Random Glucose Calcium Troponin I - EKG Data EKG Interpreted by: Myself EKG shows normal: Sinus rhythm Rate: Normal - EKG Data EKG comments: Non specific ST-T changes - Imaging and Cardiology Chest x-ray Status: Report reviewed by me Additional comment: PROCEDURE: CHEST RADIOGRAPH, 1 VIEW HISTORY: Shortness of breath shortness of breath COMPARISON: 01/02/2018 FINDINGS: LUNGS: Multifocal infiltrates likely cardiogenic pulmonary edema. PLEURA: No pneumothorax or pleural fluid seen. CARDIOVASCULAR: Cardiomegaly OSSEOUS STRUCTURES: No significant abnormalities. VISUALIZED UPPER ABDOMEN: Normal. OTHER FINDINGS: None. IMPRESSION: Cardiomegaly/acute pulmonary edema. 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
[2018-01-21] MEDS ORDERED: [UNRECOGNIZED DRUG - REMARK] PO SCH (09:00)
[2018-01-21] MEDS: Multivitamin Vitamin B Complex (Nephro-Vite) Tab PO SCH (09:49)
[2018-01-21 12:45] VITALS: BP 143/53; PULSE 69; RESP 18; TEMP 98.9
--- NOTE | 2018-01-21 15:49 | CP.PCM.PN ---
Subjective - Date & Time of Evaluation Date of Evaluation: 01/21/18 Time of Evaluation: 08:55 - Subjective Subjective: RENAL FOLLOW UP Assessment: al HTN emergency with pulmonary edema End stage renal disease on hemodialysis via AVF with missed HD> 1 week: Anemia, Hyperphosphatemia, Secondary hyperparathyroidism, HTN, dementia non compliance with HD aortic stenosis/sclerosis Plan: s/p HD yesterday, next HD tomorrow Continue with Nephrovite 1 tab/day. On STEWART as epogen Continue with phos binders, check phos level last PTH 113 hence no need for calcitriol bp is improved consider psych eval S: seen and examined, denies n/v Physical Examination: General Appearance: Comfortable, in no acute respiratory distress, co-operative . Vitals reviewed and noted as below Head; Atraumatic, normocephalic ENT: no ulcers no thrush. Tongue is midline. Oropharynx: no rash or ulcers. EYES: Pupils are equal, round and reactive to light accommodation. Eye muscles and extraocular movement intact. Sclera is anicteric. Neck; supple no lymphadenopathy, no thyromegaly or bruit Lungs: Normal respiratory rate/effort. Breath sounds bilateralequal, slightly reduced at bases Heart: Normal rate. s1s2 normal. No rub or gallop. Extremities: no edema. No varicose veins Neurological: Patient is alert, awake and demented. No focal deficit. Strength bilateral appropriate and equal Skin: Warm and dry. Normal turgor. No rash. Palpitation: Normal elasticity for age Abdomen: Abdomen is soft. Bowel sounds +. There is no abdominal tenderness, no guarding/rigidity or organomegaly Psych: lack insight and has normal affect/mood MSK: no joint tenderness or swelling. Digits and nails normal, no deformity : kidney or bladder not palpable Access: AVF Objective - Vital Signs/Intake and Output Vital Signs (last 24 hours): Temp Pulse Resp BP Pulse Ox 98.9 F 69 18 143/53 L 96 01/21/18 12:44 01/21/18 12:44 01/21/18 12:44 01/21/18 12:44 01/21/18 12:44 - Medications Medications: Current Medications Albuterol/Ipratropium (Duoneb 3 Mg/0.5 Mg (3 Ml) Ud) 3 ml INH RQ6 [facility] Last Admin: 01/21/18 13:16 Dose: 3 ml Amlodipine Besylate (Norvasc) 10 mg PO DAILY [facility] Last Admin: 01/21/18 09:49 Dose: 10 mg Atorvastatin Calcium (Lipitor) 20 mg PO HS [facility] Calcium Carbonate (Oscal) 500 mg PO TID [facility] Last Admin: 01/21/18 09:49 Dose: 500 mg Clonidine HCl (Catapres) 0.1 mg PO Q8 [facility] Last Admin: 01/21/18 09:57 Dose: 0.1 mg Epoetin Seth (Procrit) 4,000 unit IV TTS [facility] Last Admin: 01/20/18 15:42 Dose: 4,000 unit Heparin Sodium (Porcine) (Heparin) 5,000 units SC Q8 [facility] PRN Reason: Protocol Last Admin: 01/21/18 09:48 Dose: 5,000 units Hydroxyzine HCl (Atarax) 25 mg PO TID [facility] Last Admin: 01/21/18 09:51 Dose: 25 mg Labetalol HCl (Trandate) 100 mg PO BID [facility] Last Admin: 01/21/18 09:57 Dose: 100 mg Mirtazapine (Remeron) 7.5 mg PO HS [facility] Last Admin: 01/20/18 21:19 Dose: 7.5 mg Vitamin B Complex/Vit C/Folic Acid (Nephro-Valentino) 1 tab PO DAILY [facility] Last Admin: 01/21/18 09:49 Dose: 1 tab - Labs Labs: 01/20/18 06:51 01/20/18 06:51 PT 10.4 Seconds (9.8-13.1) 01/19/18 21:31 INR 0.9 (0.9-1.2) 01/19/18 21:31 APTT 20.9 Seconds (25.6-37.1) L 01/19/18 21:31
--- NOTE | 2018-01-21 16:05 | CP.PCM.PCO ---
Assessment/Plan - Assessment and Plan (Free Text) Assessment: Patient seen and examined VSS Blood pressure better controlled Ambulated around the ivy, oxygen remains >96%. Cleared for dc with Nephro and Cardio for discharge, discussed with dr angela Avendano made aware to reinstate patient for her usual HD days.
--- NOTE | 2018-01-21 16:15 | CP.PCM.CON ---
History of Present Illness - History of Present Illness History of Present Illness: Consultation for evaluation of CHF HPI: Review of Systems - Review of Systems Systems not reviewed;Unavailable: Acuity of Condition - Constitutional Constitutional: As Per HPI - EENT Eyes: As Per HPI Ears: As Per HPI Nose/Mouth/Throat: As Per HPI - Breasts Breasts: As Per HPI - Cardiovascular Cardiovascular: As Per HPI - Respiratory Respiratory: As Per HPI - Gastrointestinal Gastrointestinal: As Per HPI - Genitourinary Genitourinary: As Per HPI - Reproductive: Female Reproductive:Female: As Per HPI - Menstruation Menstruation: As Per HPI - Musculoskeletal Musculoskeletal: As Per HPI - Integumentary Integumentary: As Per HPI - Neurological Neurological: As Per HPI - Psychiatric Psychiatric: As Per HPI - Endocrine Endocrine: As Per HPI - Hematologic/Lymphatic Hematologic: As Per HPI Past Patient History - Infectious Disease Hx of Infectious Diseases: None - Tetanus Immunizations Tetanus Immunization: Unknown - Past Medical History & Family History Past Medical History?: Yes Past Family History: Reviewed and not pertinent - Past Social History Smoking Status: Never Smoked Alcohol: Social Drugs: Denies - CARDIAC Hx Congestive Heart Failure: Yes Hx Hypercholesterolemia: Yes Hx Hypertension: Yes - PULMONARY Hx Pneumonia: Yes - NEUROLOGICAL Hx Alzheimer's Disease: Yes Hx Dementia: Yes - HEENT Hx HEENT Problems: No - RENAL Hx Chronic Kidney Disease: Yes Hx Kidney Stones: No - ENDOCRINE/METABOLIC Hx Endocrine Disorders: No - HEMATOLOGICAL/ONCOLOGICAL Hx Anemia: Yes Hx Human Immunodeficiency Virus (HIV): No - INTEGUMENTARY Hx Dermatological Problems: No - MUSCULOSKELETAL/RHEUMATOLOGICAL Hx Falls: No - GASTROINTESTINAL Hx Gastrointestinal Disorders: Yes Hx Constipation: Yes - GENITOURINARY/GYNECOLOGICAL Hx Genitourinary Disorders: Yes - PSYCHIATRIC Hx Anxiety: Yes Hx Schizophrenia: No - SURGICAL HISTORY Hx Appendectomy: Yes Hx Tonsillectomy: Yes - ANESTHESIA Hx Anesthesia: Yes Hx Anesthesia Reactions: No Hx Malignant Hyperthermia: No Meds Allergies/Adverse Reactions: Allergies Allergy/AdvReac Type Severity Reaction Status Date / Time No Known Allergies Allergy Verified 01/02/18 16:12 - Medications Medications: Current Medications Albuterol/Ipratropium (Duoneb 3 Mg/0.5 Mg (3 Ml) Ud) 3 ml INH RQ6 ANKUR Last Admin: 01/21/18 13:16 Dose: 3 ml Amlodipine Besylate (Norvasc) 10 mg PO DAILY [facility] Last Admin: 01/21/18 09:49 Dose: 10 mg Atorvastatin Calcium (Lipitor) 20 mg PO HS [facility] Calcium Carbonate (Oscal) 500 mg PO TID [facility] Last Admin: 01/21/18 09:49 Dose: 500 mg Clonidine HCl (Catapres) 0.1 mg PO Q8 [facility] Last Admin: 01/21/18 09:57 Dose: 0.1 mg Epoetin Seth (Procrit) 4,000 unit IV TTS [facility] Last Admin: 01/20/18 15:42 Dose: 4,000 unit Heparin Sodium (Porcine) (Heparin) 5,000 units SC Q8 [facility] PRN Reason: Protocol Last Admin: 01/21/18 09:48 Dose: 5,000 units Hydroxyzine HCl (Atarax) 25 mg PO TID [facility] Last Admin: 01/21/18 09:51 Dose: 25 mg Labetalol HCl (Trandate) 100 mg PO BID [facility] Last Admin: 01/21/18 09:57 Dose: 100 mg Mirtazapine (Remeron) 7.5 mg PO HS [facility] Last Admin: 01/20/18 21:19 Dose: 7.5 mg Vitamin B Complex/Vit C/Folic Acid (Nephro-Valentino) 1 tab PO DAILY [facility] Last Admin: 01/21/18 09:49 Dose: 1 tab Physical Exam - Constitutional Appears: Well - Head Exam Head Exam: ATRAUMATIC, NORMAL INSPECTION, NORMOCEPHALIC - Eye Exam Eye Exam: EOMI, Normal appearance, PERRL Pupil Exam: NORMAL ACCOMODATION, PERRL - ENT Exam ENT Exam: Mucous Membranes Moist, Normal Exam - Neck Exam Neck exam: Positive for: Normal Inspection - Respiratory Exam Respiratory Exam: Clear to Auscultation Bilateral, NORMAL BREATHING PATTERN - Cardiovascular Exam Cardiovascular Exam: REGULAR RHYTHM - GI/Abdominal Exam GI & Abdominal Exam: Normal Bowel Sounds, Soft. absent: Tenderness - Extremities Exam Extremities exam: Positive for: normal inspection - Back Exam Back exam: NORMAL INSPECTION - Neurological Exam Neurological exam: Alert, CN II-XII Intact, Normal Gait, Oriented x3, Reflexes Normal - Psychiatric Exam Psychiatric exam: Normal Affect, Normal Mood - Skin Skin Exam: Dry, Intact, Normal Color, Warm Results - Vital Signs Recent Vital Signs: Last Vital Signs Temp 98.9 F 01/21/18 12:44 Pulse 69 01/21/18 12:44 Resp 18 01/21/18 12:44 BP 143/53 L 01/21/18 12:44 Pulse Ox 96 01/21/18 12:44 - Labs Result Diagrams: 01/20/18 06:51 01/20/18 06:51 Labs: Laboratory Results - last 24 hr 01/20/18 01/20/18 01/21/18 16:47 22:16 05:11 POC Glucose (mg/dL) 130 H 127 H 94 01/21/18 11:05 POC Glucose (mg/dL) 107 Assessment & Plan (1) Acute pulmonary edema Assessment and Plan: ? CAD ( high risk ) asa, bb, statins consider plavix Status: Acute (2) Hypertensive emergency Status: Acute Priority: High (3) Accelerated hypertension Status: Acute Priority: High (4) Acute on chronic renal failure Status: Acute Priority: Medium
--- NOTE | 2018-01-22 07:25 | CP.PCM.DIS ---
Provider - Provider Date of Admission: 01/20/18 00:01 Attending physician: Tiny Martines MD Time Spent in preparation of Discharge (in minutes): 35 Diagnosis - Discharge Diagnosis (1) Hypertensive emergency Status: Acute Priority: High Comment: Acute Pulmonary [place] (2) Acute on chronic renal failure Status: Acute Priority: Medium (3) Hyperkalemia Status: Acute Priority: High (4) Dementia Status: Chronic Priority: Low (5) Dyslipidemia Status: Chronic Priority: Medium Hospital Course - Lab Results Lab Results: Most Recent Lab Values WBC 5.2 K/uL (4.8-10.8) 01/20/18 06:51 RBC 3.21 Mil/uL (3.80-5.20) L 01/20/18 06:51 Hgb 9.5 g/dL (12.0-16.0) L 01/20/18 06:51 Hct 28.1 % (34.0-47.0) L 01/20/18 06:51 MCV 87.5 fl (81.0-99.0) 01/20/18 06:51 MCH 29.6 pg (27.0-31.0) 01/20/18 06:51 MCHC 33.8 g/dL (33.0-37.0) 01/20/18 06:51 RDW 14.4 % (11.5-14.5) 01/20/18 06:51 Plt Count 122 K/uL (130-400) L D 01/20/18 06:51 MPV 11.0 fl (7.2-11.7) 01/19/18 22:59 Neut % (Auto) 81.6 % (50.0-75.0) H 01/19/18 22:59 Lymph % (Auto) 8.4 % (20.0-40.0) L 01/19/18 22:59 [place] % (Auto) 6.1 % (0.0-10.0) 01/19/18 22:59 Eos % (Auto) 3.1 % (0.0-4.0) 01/19/18 22:59 Baso % (Auto) 0.8 % (0.0-2.0) 01/19/18 22:59 Neut # (Auto) 7.5 K/uL (1.8-7.0) H 01/19/18 22:59 Lymph # (Auto) 0.8 K/uL (1.0-4.3) L 01/19/18 22:59 [place] # (Auto) 0.6 K/uL (0.0-0.8) 01/19/18 22:59 Eos # (Auto) 0.3 K/uL (0.0-0.7) 01/19/18 22:59 Baso # (Auto) 0.1 K/uL (0.0-0.2) 01/19/18 22:59 Neutrophils % (Manual) 82 % (42-75) H 01/19/18 22:59 Band Neutrophils % 2 % (0-2) 01/19/18 22:59 Lymphocytes % (Manual) 9 % (20-50) L 01/19/18 22:59 Monocytes % (Manual) 6 % (0-10) 01/19/18 22:59 Eosinophils % (Manual) 1 % (0-7) 01/19/18 22:59 Platelet Estimate Normal (NORMAL) 01/19/18 22:59 PT 10.4 Seconds (9.8-13.1) 01/19/18 21:31 INR 0.9 (0.9-1.2) 01/19/18 21:31 APTT 20.9 Seconds (25.6-37.1) L 01/19/18 21:31 pCO2 35 mm/Hg (35-45) 01/19/18 21:12 pO2 87 mm/Hg (80-100) 01/19/18 21:12 HCO3 22.9 mmol/L (21-28) 01/19/18 21:12 ABG pH 7.40 (7.35-7.45) 01/19/18 21:12 ABG Total CO2 22.8 mmol/L (22-28) 01/19/18 21:12 ABG O2 Saturation 100.3 % (95-98) H 01/19/18 21:12 ABG O2 Content 15.1 ML/dL (15-23) 01/19/18 21:12 ABG Base Excess -2.6 mmol/L (-2.0-3.0) L 01/19/18 21:12 ABG Hemoglobin 11.2 g/dL (11.7-17.4) L 01/19/18 21:12 ABG Carboxyhemoglobin 2.4 % (0.5-1.5) H 01/19/18 21:12 POC ABG HHb (Measured) -0.3 % (0.0-5.0) L 01/19/18 21:12 ABG Methemoglobin 2.5 % (0.0-3.0) 01/19/18 21:12 ABG O2 Capacity 15.1 mL/dL (16-24) L 01/19/18 21:12 Nacho Test Yes 01/19/18 21:12 A-a O2 Difference 226.0 mm/Hg 01/19/18 21:12 Hgb O2 Saturation 95.3 % (95.0-98.0) 01/19/18 21:12 Vent Mode Bipap 01/19/18 21:12 Mechanical Rate 16 01/19/18 21:12 FiO2 50.0 % 01/19/18 21:12 Inspiratory BiPAP 12 01/19/18 21:12 Expiratory BiPAP 6 01/19/18 21:12 Sodium 133 mmol/l (132-148) 01/20/18 06:51 Potassium 4.7 MMOL/L (3.6-5.0) 01/20/18 06:51 Chloride 98 mmol/L (98-107) 01/20/18 06:51 Carbon Dioxide 23 mmol/L (22-30) 01/20/18 06:51 Anion Gap 17 (10-20) 01/20/18 06:51 BUN 60 mg/dl (7-17) H 01/20/18 06:51 Creatinine 4.8 mg/dl (0.7-1.2) H 01/20/18 06:51 Est GFR ( Amer) 11 01/20/18 06:51 Est GFR (Non-Af Amer) 9 01/20/18 06:51 POC Glucose (mg/dL) 107 mg/dL (65-110) 01/21/18 11:05 Random Glucose 93 mg/dL (65-105) 01/20/18 06:51 Calcium 9.4 mg/dL (8.4-10.2) 01/20/18 06:51 Phosphorus 4.0 mg/dl (2.5-4.5) 01/19/18 22:59 Magnesium 1.9 MG/DL (1.6-2.3) 01/19/18 22:59 Total Bilirubin 0.9 mg/dl (0.2-1.3) 01/19/18 22:59 AST 51 U/L (14-36) H D 01/19/18 22:59 ALT 61 U/L (9-52) H D 01/19/18 22:59 Alkaline Phosphatase 111 U/L (38-126) 01/19/18 22:59 Troponin I 0.0630 ng/mL (0.00-0.120) 01/20/18 06:51 NT-Pro-B Natriuret Pep 30191 pg/ml (0-900) H 01/19/18 22:59 Total Protein 6.5 G/DL (6.3-8.2) 01/19/18 22:59 Albumin 4.2 g/dL (3.5-5.0) 01/19/18 22:59 Globulin 2.3 gm/dL (2.2-3.9) 01/19/18 22:59 Albumin/Globulin Ratio 1.9 (1.0-2.1) 01/19/18 22:59 Discharge Exam - Head Exam Head Exam: ATRAUMATIC, NORMAL INSPECTION, NORMOCEPHALIC Discharge Plan - Follow Up Plan Condition: GUARDED Disposition: HOME/ ROUTINE Instructions: Dialysis Diet , Heart Failure, Adult (DC), Hemodialysis (DC) Additional Instructions: follow up with your orthopedics teacher 1 week Referrals: Fredis Benedict MD [Staff Provider] - Tiny Martines MD [Staff Provider] -
== END 2018-01-21 15:50 | disposition home or self-care (01) | DRG 683 ==
LOC: H.ER 20:06 → H.ERHOLD 01-20 00:01 → H.TEL 01-20 01:04
PROVIDERS: ADMIT Internal Medicine; ATTEND Internal Medicine
PROC: 5A09357 Assistance with Respiratory Ventilation, Less than 24 Consecutive Hours, Continuous Positive Airway Pressure (ICD-10-PCS; principal; 2018-01-19)
PROC: 3E0F7GC Introduction of Other Therapeutic Substance into Respiratory Tract, Via Natural or Artificial Opening (ICD-10-PCS; 2018-01-20)
DX: N17.9 Acute kidney failure, unspecified (principal); I13.2 Hypertensive heart and chronic kidney disease with heart failure and with stage 5 chronic kidney disease, or end stage renal disease; I16.1 Hypertensive emergency; F02.80 Dementia in other diseases classified elsewhere, unspecified severity, without behavioral disturbance, psychotic disturbance, mood disturbance, and anxiety; G30.9 Alzheimer's disease, unspecified; E78.00 Pure hypercholesterolemia, unspecified; F41.9 Anxiety disorder, unspecified; N18.6 End stage renal disease; I50.9 Heart failure, unspecified; E87.5 Hyperkalemia; E78.5 Hyperlipidemia, unspecified; I35.0 Nonrheumatic aortic (valve) stenosis; N25.81 Secondary hyperparathyroidism of renal origin; E83.39 Other disorders of phosphorus metabolism; Z91.15 Patient's noncompliance with renal dialysis; Z99.2 Dependence on renal dialysis; Z87.01 Personal history of pneumonia (recurrent)

== ENCOUNTER 2018-01-24 17:17 | Inpatient (IN) | payer MEDICARE ==
[2018-01-24 17:17] VITALS: BMI 17.2
[2018-01-24] MEDS ORDERED: Nitroglycerin 50mg in D5W 50 MG/250 ML BOTTLE IV ONE ×3 (17:32→18:15)
[2018-01-24] MEDS ORDERED: Albuterol-Ipratrop 3 mg / 0.5 (3 ml) UD ONE (17:34)
[2018-01-24] MEDS ORDERED: Albuterol-Ipratrop 3 mg / 0.5 (3 ml) UD IH STA (17:43)
--- NOTE | 2018-01-24 17:47 | ED PDOC ---
HPI: SOB/CHF/COPD Time Seen by Provider: 01/24/18 17:21 Chief Complaint (Nursing): Respiratory Distress History Per: EMS Onset/Duration Of Symptoms: Days (1) Current Symptoms Are (Timing): Still Present Current Respiratory Medications: See Home Med List Severity: Severe Additional Complaint(s): Brought by EMS for worsening SOB since yesterday. Has not been to dialysis x 1 week. Denies cough or chest pain. Denies fever. Past Medical History Vital Signs: Last Vital Signs Temp 97.8 F 01/24/18 18:54 Pulse 70 01/24/18 18:54 Resp 20 01/24/18 18:54 BP 183/69 H 01/24/18 18:54 Pulse Ox 100 01/24/18 18:54 - Medical History PMH: Alzheimer's Disease, Anemia, Anxiety, CHF, Dementia, HTN, Hypercholesterolemia, Pneumonia, End Stage Renal Disease, Chronic Kidney Disease Denies: HIV, Kidney Stones, Schizophrenia - Surgical History Surgical History: Appendectomy, Tonsillectomy - Family History Family History: States: Unknown Family Hx, Hypertension - Immunization History Hx Tetanus Toxoid Vaccination: No Hx Influenza Vaccination: No Hx Pneumococcal Vaccination: No - Home Medications Home Medications: Ambulatory Orders Medication Instructions Recorded Atorvastatin [Lipitor] 20 mg PO DAILY 08/16/16 Labetalol [Trandate] 100 mg PO BID 08/16/16 amLODIPine [Norvasc] 5 mg PO DAILY 08/16/16 Calcium Carbonate [Oscal] 500 mg PO TID 10/16/17 cloNIDine [Catapres] 0.1 mg PO Q8 #30 tab 01/07/18 Alprazolam [Xanax] 0.5 mg PO DAILY PRN 01/24/18 Lisinopril [Zestril] 5 mg PO DAILY 01/24/18 - Allergies Allergies/Adverse Reactions: Allergies Allergy/AdvReac Type Severity Reaction Status Date / Time No Known Allergies Allergy Verified 01/24/18 17:21 Review of Systems ROS Statement: Except As Marked, All Systems Reviewed And Found Negative Respiratory: Positive for: Shortness of Breath Physical Exam - Reviewed Nursing Documentation Reviewed: Yes Vital Signs Reviewed: Yes - Physical Exam Appears: Positive for: Non-toxic, In Acute Distress Head Exam: Positive for: ATRAUMATIC, NORMAL INSPECTION, NORMOCEPHALIC Skin: Positive for: Normal Color, Warm, DRY Eye Exam: Positive for: EOMI, Normal appearance, PERRL ENT: Positive for: Normal ENT Inspection Neck: Positive for: Normal, Painless ROM Cardiovascular/Chest: Positive for: Regular Rate, Rhythm, Tachycardia Respiratory: Positive for: Rales, Wheezing, Respiratory Distress Gastrointestinal/Abdominal: Positive for: Normal Exam, Soft Back: Positive for: Normal Inspection Extremity: Positive for: Normal ROM Neurologic/Psych: Positive for: Alert. Negative for: Motor/Sensory Deficits - Laboratory Results Result Diagrams: 01/24/18 17:46 01/24/18 17:46 - ECG O2 Sat by Pulse Oximetry: 97 - Progress Re-evaluation Time: 19:08 Condition: Improved - Critical Care Total Time (In Min): 45 Disposition - Clinical Impression Clinical Impression: Respiratory distress, CHF (congestive heart failure), Volume overload, Acute on chronic renal failure - Patient ED Disposition Is Patient to be Admitted: Yes - Disposition Disposition Time: 19:09 Condition: GUARDED Forms: [employer] ([place]) - Pt Status Changed To: Hospital Disposition Of: Inpatient - Admit Certification Admit to Inpatient:: After my assessment, the patient will require hospitalization for at least two midnights. This is because of the severity of symptoms shown, intensity of services needed, and/or the medical risk in this patient being treated as an outpatient. - POA Present On Arrival: None
[2018-01-24 17:49] LABS: ABG ALLEN TEST YES; ARTERIAL BLOOD GAS HCO3 23.4 mmol/L (21-28); ARTERIAL BLOOD GAS HEMOGLOBIN 11.8 g/dL (11.7-17.4); ARTERIAL BLOOD GAS O2 CAPACITY 16.7 mL/dL (16-24); ARTERIAL BLOOD GAS O2 CONTENT 16.7 ML/dL (15-23); ARTERIAL BLOOD GAS O2 SAT 100.1 % (95-98); ARTERIAL BLOOD GAS PCO2 46 mm/Hg (35-45); ARTERIAL BLOOD GAS PH 7.33 (7.35-7.45); ARTERIAL BLOOD GAS PO2 294 mm/Hg (80-100); ARTERIAL BLOOD GAS TCO2 25.7 mmol/L (22-28)
[2018-01-24 17:58] LABS: BASO # 0.2 K/uL (0.0-0.2); BASO % 1.3 % (0.0-2.0); EOS # 0.5 K/uL (0.0-0.7); EOS % 4.5 % (0.0-4.0); HEMOGLOBIN 12.1 g/dL (12.0-16.0); LYMPH # 2.3 K/uL (1.0-4.3); LYMPH % 19.6 % (20.0-40.0); MEAN CELL VOLUME 87.8 fl (81.0-99.0); MEAN CORPUSCULAR HEMOGLOBIN 29.4 pg (27.0-31.0); MEAN CORPUSCULAR HGB CONC 33.5 g/dL (33.0-37.0); MEAN PLATELET VOLUME 10.9 fl (7.2-11.7); MONO # 1.1 K/uL (0.0-0.8); MONO % 9.2 % (0.0-10.0); NEUT # 7.8 K/uL (1.8-7.0); NEUT % 65.4 % (50.0-75.0); RBC 4.13 Mil/uL (3.80-5.20); RED CELL DISTRIBUTION WIDTH 14.7 % (11.5-14.5); WHITE BLOOD COUNT 11.9 K/uL (4.8-10.8)
--- NOTE | 2018-01-24 18:29 | RAD ---
Date of service: 01/24/2018 HISTORY: SOB COMPARISON: Chest radiograph dated 01/19/2018. FINDINGS: LUNGS: Pulmonary vascular congestion. PLEURA: Small bilateral pleural effusions. No pneumothorax apparent. CARDIOVASCULAR: Sclerotic aortic calcifications. Cardiomediastinal silhouette stably enlarged. OSSEOUS STRUCTURES: Unchanged. VISUALIZED UPPER ABDOMEN: Normal. OTHER FINDINGS: None. IMPRESSION: Pulmonary vascular congestion small bilateral pleural effusions.
[2018-01-24 19:02] LABS: ALB/GLOB RATIO 1.6 (1.0-2.1); ALBUMIN 4.9 g/dL (3.5-5.0)
[2018-01-24] MEDS ORDERED: Insulin Regular 100 units/ml IV STA (19:02)
[2018-01-24] MEDS ORDERED: Dextrose 50% SYRINGE Inj (50 ml) IVP ONE (19:03)
[2018-01-24] MEDS ORDERED: Insulin Regular 100 units/ml ONE (19:07)
[2018-01-24] MEDS ORDERED: Dextrose 50% SYRINGE Inj (50 ml) ONE (19:07)
[2018-01-24 19:25] LABS: TROPONIN I 0.077 ng/mL (0.00-0.120)
--- NOTE | 2018-01-24 19:44 | CP.PCM.CON ---
History of Present Illness - History of Present Illness History of Present Illness: CC: SOB, missed HD x 1 week. HPI: This is a 77-year-old female with MHx significant for Alzheimer's dementia , ESRD on HD MWF, and HTN who comes in today with SOB after not going to HD for 1 week. Per son, patient refuses to go often, possibly related to her dementia. Patient again has hyper-K in ER, but no significant EKG changes. Renal has been contacted for HD. Rail Bender: Jak ROS: 14 systems reviewed and negative other than HPI MHx: Alzheimer's dementia, ESRD with HD MWF, hypertension SHx: Appendectomy, tonsillectomy, LUE HD fistula Allergies: NKDA Medications: Per med rec FHx: no relevant findings Social Hx: Lives at home, no tobacco, no EtOH Surrogate Dec Mkr: Dung Meehan Past Patient History - Infectious Disease Hx of Infectious Diseases: None - Tetanus Immunizations Tetanus Immunization: Unknown - Past Medical History & Family History Past Medical History?: Yes - Past Social History Smoking Status: Never Smoked - CARDIAC Hx Congestive Heart Failure: Yes Hx Hypercholesterolemia: Yes Hx Hypertension: Yes - PULMONARY Hx Pneumonia: Yes - NEUROLOGICAL Hx Alzheimer's Disease: Yes Hx Dementia: Yes - HEENT Hx HEENT Problems: No - RENAL Hx Chronic Kidney Disease: Yes Hx Kidney Stones: No - ENDOCRINE/METABOLIC Hx Endocrine Disorders: No - HEMATOLOGICAL/ONCOLOGICAL Hx Anemia: Yes Hx Human Immunodeficiency Virus (HIV): No - INTEGUMENTARY Hx Dermatological Problems: No - MUSCULOSKELETAL/RHEUMATOLOGICAL Hx Falls: No - GASTROINTESTINAL Hx Gastrointestinal Disorders: Yes Hx Constipation: Yes - GENITOURINARY/GYNECOLOGICAL Hx Genitourinary Disorders: Yes - PSYCHIATRIC Hx Anxiety: Yes Hx Schizophrenia: No - SURGICAL HISTORY Hx Appendectomy: Yes Hx Tonsillectomy: Yes - ANESTHESIA Hx Anesthesia: Yes Hx Anesthesia Reactions: No Hx Malignant Hyperthermia: No Meds Allergies/Adverse Reactions: Allergies Allergy/AdvReac Type Severity Reaction Status Date / Time No Known Allergies Allergy Verified 01/24/18 17:21 - Medications Medications: Current Medications Nitroglycerin/Dextrose (Nitroglycerin 50 Mg/250 Ml D5w) 50 mg in 250 mls @ 1.5 mls/hr IV .Q24H ONE; 5 MCG/MIN PRN Reason: Protocol Stop: 01/25/18 18:14 Last Admin: 01/24/18 17:37 Dose: 1.5 mls/hr Physical Exam - Constitutional Appears: Chronically Ill Additional comments: On bipap, SOB with speech - Head Exam Head Exam: ATRAUMATIC, NORMOCEPHALIC - Eye Exam Eye Exam: EOMI - ENT Exam ENT Exam: Mucous Membranes Moist - Neck Exam Neck exam: Positive for: Full Rom - Respiratory Exam Additional comments: on bipap, coarse sounds, diminished sounds at bases - Cardiovascular Exam Cardiovascular Exam: REGULAR RHYTHM, +S1, +S2 - GI/Abdominal Exam GI & Abdominal Exam: Normal Bowel Sounds, Soft - Extremities Exam Extremities exam: Positive for: full ROM, pedal edema - Neurological Exam Neurological exam: Alert, CN II-XII Intact, Oriented x3 - Psychiatric Exam Psychiatric exam: Normal Affect, Normal Mood - Skin Skin Exam: Dry, Warm Results - Vital Signs Recent Vital Signs: Last Vital Signs Temp 97.8 F 01/24/18 18:54 Pulse 70 01/24/18 18:54 Resp 20 01/24/18 18:54 BP 174/71 H 01/24/18 19:13 Pulse Ox 97 01/24/18 19:10 - Labs Result Diagrams: 01/24/18 17:46 01/24/18 17:46 Labs: Laboratory Results - last 24 hr 01/24/18 01/24/18 01/24/18 17:46 17:46 17:46 WBC 11.9 H D RBC 4.13 Hgb 12.1 D Hct 36.2 MCV 87.8 MCH 29.4 MCHC 33.5 RDW 14.7 H Plt Count 209 MPV 10.9 Neut % (Auto) 65.4 Lymph % (Auto) 19.6 L [place] % (Auto) 9.2 Eos % (Auto) 4.5 H Baso % (Auto) 1.3 Neut # (Auto) 7.8 H Lymph # (Auto) 2.3 [place] # (Auto) 1.1 H Eos # (Auto) 0.5 Baso # (Auto) 0.2 pCO2 46 H pO2 294 H HCO3 23.4 ABG pH 7.33 L ABG Total CO2 25.7 ABG O2 Saturation 100.1 H ABG O2 Content 16.7 ABG Base Excess -1.9 ABG Hemoglobin 11.8 ABG Carboxyhemoglobin 1.0 POC ABG HHb (Measured) -0.1 L ABG Methemoglobin 2.8 ABG O2 Capacity 16.7 Nacho Test Yes A-a O2 Difference 362.0 Hgb O2 Saturation 96.2 Vent Mode Bipap Mechanical Rate 14 FiO2 100.0 Inspiratory BiPAP 12 Expiratory BiPAP 6 Crit Value Called To Dr ed castillo Crit Value Called By [id number] Crit Value Read Back Y Blood Gas Notified Time 1739 Sodium 134 Potassium 6.6 H* D Chloride 94 L Carbon Dioxide 24 Anion Gap 23 H BUN 66 H Creatinine 5.6 H Est GFR ( Amer) 9 Est GFR (Non-Af Amer) 7 Random Glucose 149 H Calcium 10.0 Total Bilirubin 0.8 AST 25 ALT 32 Alkaline Phosphatase 115 Troponin I 0.0770 Total Protein 8.1 Albumin 4.9 Globulin 3.2 Albumin/Globulin Ratio 1.6 - EKG Data EKG Interpreted by: Myself EKG shows normal: Sinus rhythm - EKG Data EKG comments: EKG without significantly peaked T waves - Imaging and Cardiology Chest x-ray Status: Image reviewed by me (pulmonary vascular congestion, effusions) Assessment & Plan (1) Acute pulmonary edema Assessment and Plan: 77 y/o female with ESRD on HD who comes in with vol overload and resp distress after missing HD for 7 days. -Admit to ICU -Plan for urgent HD, Benedict contacted by ER -Patient received cocktail for Hyper K, will recheck K if no HD in next 2 hours -Bipap, cont NPO -Titrate nitro gtt off as BP gets under better control -SCDs only for DVT PPx Status: Acute (2) Respiratory distress Status: Acute (3) Volume overload Status: Acute (4) ESRD (end stage renal disease) Status: Chronic Priority: High (5) Hyperkalemia Status: Resolved (6) Accelerated hypertension Status: Acute (7) DVT prophylaxis Status: Acute
[2018-01-24] MEDS ORDERED: Sod Polystyrene Sulf 15 gm/60 ml Susp PO ONE (20:22)
[2018-01-24 22:28] LABS: CALCIUM 9.9 mg/dL (8.4-10.2)
[2018-01-25 05:39] LABS: HEMOGLOBIN 10.6 g/dL (12.0-16.0); MEAN CELL VOLUME 87.9 fl (81.0-99.0); MEAN CORPUSCULAR HEMOGLOBIN 29.7 pg (27.0-31.0); MEAN CORPUSCULAR HGB CONC 33.8 g/dL (33.0-37.0); RBC 3.57 Mil/uL (3.80-5.20); RED CELL DISTRIBUTION WIDTH 14.4 % (11.5-14.5); WHITE BLOOD COUNT 6.2 K/uL (4.8-10.8)
[2018-01-25 06:13] LABS: ALB/GLOB RATIO 1.7 (1.0-2.1); ALBUMIN 4.3 g/dL (3.5-5.0); CALCIUM 9.8 mg/dL (8.4-10.2)
--- NOTE | 2018-01-25 07:37 | CP.PCM.CON ---
History of Present Illness - History of Present Illness History of Present Illness: This patient however is 77 years of age female known to me with end-stage renal disease on maintenance hemodialysis. Patient is not compliant as she does not show up for dialysis as outpatient and she always decided to come to the emergency room when she gets sick and she presented with shortness of breath difficulty breathing and sign of volume overloaded congestive heart failure hyperkalemia and patient was treated in the emergency room. She was treated for hyperkalemia and also given Lasix and she responded very well to Lasix MHx: Alzheimer's dementia, ESRD with HD MWF, hypertension SHx: Appendectomy, tonsillectomy, LUE HD fistula Allergies: NKDA Medications: Per med rec FHx: no relevant findings Social Hx: Lives at home, no tobacco, no EtOH Surrogate Dec Mkr: Dung Meehan Review of Systems - Review of Systems Systems not reviewed;Unavailable: Respiratory Distress - Constitutional Constitutional: Anorexia. absent: Chills - Cardiovascular Cardiovascular: Dyspnea, Dyspnea on Exertion, Edema. absent: Chest Pain - Respiratory Respiratory: Cough, Wheezing, Chest Congestion. absent: Hemoptysis - Gastrointestinal Gastrointestinal: absent: Abdominal Pain - Musculoskeletal Musculoskeletal: Muscle Weakness. absent: Numbness - Neurological Neurological: Abnormal Gait. absent: Numbness, Focal Weakness - Psychiatric Psychiatric: As Per HPI - Endocrine Endocrine: Fatigue - Hematologic/Lymphatic Hematologic: absent: Easy Bleeding Past Patient History - Infectious Disease Hx of Infectious Diseases: None - Tetanus Immunizations Tetanus Immunization: Unknown - Past Medical History & Family History Past Medical History?: Yes - Past Social History Smoking Status: Never Smoked - CARDIAC Hx Congestive Heart Failure: Yes Hx Hypercholesterolemia: Yes Hx Hypertension: Yes - PULMONARY Hx Pneumonia: Yes - NEUROLOGICAL Hx Alzheimer's Disease: Yes Hx Dementia: Yes - HEENT Hx HEENT Problems: No - RENAL Hx Dialysis: Yes Type of Dialysis Access: LEFT ARM SHUNT Hx Kidney Stones: No Hx Renal Failure: Yes - ENDOCRINE/METABOLIC Hx Endocrine Disorders: No - HEMATOLOGICAL/ONCOLOGICAL Hx Anemia: Yes Hx Human Immunodeficiency Virus (HIV): No - INTEGUMENTARY Hx Dermatological Problems: No - MUSCULOSKELETAL/RHEUMATOLOGICAL Hx Falls: No - GASTROINTESTINAL Hx Gastrointestinal Disorders: Yes Hx Constipation: Yes - GENITOURINARY/GYNECOLOGICAL Hx Genitourinary Disorders: Yes - PSYCHIATRIC Hx Anxiety: Yes Hx Substance Use: No - SURGICAL HISTORY Hx Appendectomy: Yes Hx Tonsillectomy: Yes - ANESTHESIA Hx Anesthesia: Yes Hx Anesthesia Reactions: No Hx Malignant Hyperthermia: No Meds Allergies/Adverse Reactions: Allergies Allergy/AdvReac Type Severity Reaction Status Date / Time No Known Allergies Allergy Verified 01/24/18 17:21 - Medications Medications: Current Medications Nitroglycerin/Dextrose (Nitroglycerin 50 Mg/250 Ml D5w) 50 mg in 250 mls @ 1.5 mls/hr IV .Q24H ONE; 5 MCG/MIN PRN Reason: Protocol Stop: 01/25/18 18:14 Last Admin: 01/24/18 17:37 Dose: 1.5 mls/hr Pantoprazole Sodium (Protonix Ec Tab) 40 mg PO DAILY ANKUR Stop: 01/26/18 09:01 Physical Exam - Constitutional Appears: No Acute Distress - Eye Exam Eye Exam: Conjunctival injection - ENT Exam ENT Exam: Mucous Membranes Moist - Respiratory Exam Respiratory Exam: Rales, Rhonchi. absent: Chest Wall Tenderness - Cardiovascular Exam Cardiovascular Exam: absent: Gallop, JVD, Rubs - GI/Abdominal Exam GI & Abdominal Exam: Normal Bowel Sounds. absent: Guarding - Extremities Exam Extremities exam: Negative for: calf tenderness - Back Exam Back exam: absent: CVA tenderness (L), CVA tenderness (R) - Neurological Exam Neurological exam: Alert - Psychiatric Exam Psychiatric exam: Normal Affect Results - Vital Signs Recent Vital Signs: Last Vital Signs Temp 98.4 F 01/25/18 04:00 Pulse 82 01/25/18 06:00 Resp 17 01/25/18 06:00 BP 159/63 H 01/25/18 06:00 Pulse Ox 98 01/25/18 06:00 - Labs Result Diagrams: 01/25/18 04:35 01/25/18 04:35 Labs: Laboratory Results - last 24 hr 01/24/18 01/24/18 01/24/18 17:46 17:46 17:46 WBC 11.9 H D RBC 4.13 Hgb 12.1 D Hct 36.2 MCV 87.8 MCH 29.4 MCHC 33.5 RDW 14.7 H Plt Count 209 MPV 10.9 Neut % (Auto) 65.4 Lymph % (Auto) 19.6 L [place] % (Auto) 9.2 Eos % (Auto) 4.5 H Baso % (Auto) 1.3 Neut # (Auto) 7.8 H Lymph # (Auto) 2.3 [place] # (Auto) 1.1 H Eos # (Auto) 0.5 Baso # (Auto) 0.2 pCO2 46 H pO2 294 H HCO3 23.4 ABG pH 7.33 L ABG Total CO2 25.7 ABG O2 Saturation 100.1 H ABG O2 Content 16.7 ABG Base Excess -1.9 ABG Hemoglobin 11.8 ABG Carboxyhemoglobin 1.0 POC ABG HHb (Measured) -0.1 L ABG Methemoglobin 2.8 ABG O2 Capacity 16.7 Nacho Test Yes A-a O2 Difference 362.0 Hgb O2 Saturation 96.2 Vent Mode Bipap Mechanical Rate 14 FiO2 100.0 Inspiratory BiPAP 12 Expiratory BiPAP 6 Crit Value Called To Dr ed castillo Crit Value Called By 6075 Crit Value Read Back Y Blood Gas Notified Time 1739 Sodium 134 Potassium 6.6 H* D Chloride 94 L Carbon Dioxide 24 Anion Gap 23 H BUN 66 H Creatinine 5.6 H Est GFR ( Amer) 9 Est GFR (Non-Af Amer) 7 Random Glucose 149 H Calcium 10.0 Total Bilirubin 0.8 AST 25 ALT 32 Alkaline Phosphatase 115 Troponin I 0.0770 NT-Pro-B Natriuret Pep 14020 H Total Protein 8.1 Albumin 4.9 Globulin 3.2 Albumin/Globulin Ratio 1.6 01/24/18 01/25/18 01/25/18 22:08 04:35 04:35 WBC 6.2 RBC 3.57 L Hgb 10.6 L Hct 31.4 L MCV 87.9 MCH 29.7 MCHC 33.8 RDW 14.4 Plt Count 163 MPV Neut % (Auto) Lymph % (Auto) [place] % (Auto) Eos % (Auto) Baso % (Auto) Neut # (Auto) Lymph # (Auto) [place] # (Auto) Eos # (Auto) Baso # (Auto) pCO2 pO2 HCO3 ABG pH ABG Total CO2 ABG O2 Saturation ABG O2 Content ABG Base Excess ABG Hemoglobin ABG Carboxyhemoglobin POC ABG HHb (Measured) ABG Methemoglobin ABG O2 Capacity Nacho Test A-a O2 Difference Hgb O2 Saturation Vent Mode Mechanical Rate FiO2 Inspiratory BiPAP Expiratory BiPAP Crit Value Called To Crit Value Called By Crit Value Read Back Blood Gas Notified Time Sodium 133 133 Potassium 5.8 H 5.8 H Chloride 95 L 95 L Carbon Dioxide 23 20 L Anion Gap 21 H 24 H BUN 71 H 72 H Creatinine 5.5 H 5.5 H Est GFR ( Amer) 9 9 Est GFR (Non-Af Amer) 7 7 Random Glucose 90 155 H Calcium 9.9 9.8 Total Bilirubin 0.8 AST 24 ALT 28 Alkaline Phosphatase 75 Troponin I NT-Pro-B Natriuret Pep Total Protein 7.0 Albumin 4.3 Globulin 2.6 Albumin/Globulin Ratio 1.7 Assessment & Plan (1) ESRD (end stage renal disease) on dialysis Assessment and Plan: Patient with end stage renal disease who is not compliance admitted was volume overload and congestive heart failure and hyperkalemia. Patient given Lasix and responded. Acute mobile dialysis where called last night for dialysis and as of now they did not show up, fortunately patient responded to Lasix. Patient treated with Kayexalate and bicarbonate and treated medically and waiting for dialysis . I will be calling servicenow administrator because of the lack of response from the acute mobile dialysis to come for dialysis. I spoke to the acute mobile last night this and they are busy and they cannot come and also I called this morning and waiting for response Status: Acute (2) Respiratory distress Status: Acute (3) Volume overload Status: Acute (4) CHF (congestive heart failure) Status: Chronic (5) Accelerated hypertension Status: Acute Priority: High
--- NOTE | 2018-01-25 09:08 | CP.PCM.PN ---
Subjective - Date & Time of Evaluation Date of Evaluation: 01/25/18 Time of Evaluation: 09:06 - Subjective Subjective: dialysis note she was seen on HD now pt. is sitting up in bed starting feeling better Objective - Vital Signs/Intake and Output Vital Signs (last 24 hours): Temp Pulse Resp BP Pulse Ox 98.3 F 84 16 157/60 H 100 01/25/18 08:00 01/25/18 08:00 01/25/18 08:00 01/25/18 08:00 01/25/18 08:00 Intake and Output: 01/25/18 01/25/18 06:59 18:59 Intake Total 34 Output Total 1100 Balance -1066 - Medications Medications: Current Medications Nitroglycerin/Dextrose (Nitroglycerin 50 Mg/250 Ml D5w) 50 mg in 250 mls @ 1.5 mls/hr IV .Q24H ONE; 5 MCG/MIN PRN Reason: Protocol Stop: 01/25/18 18:14 Last Admin: 01/24/18 17:37 Dose: 1.5 mls/hr Pantoprazole Sodium (Protonix Ec Tab) 40 mg PO DAILY ANKUR Stop: 01/26/18 09:01 - Labs Labs: 01/25/18 04:35 01/25/18 04:35 - Constitutional Appears: No Acute Distress - ENT Exam ENT Exam: Mucous Membranes Moist - Neck Exam Neck Exam: absent: Lymphadenopathy - Respiratory Exam Respiratory Exam: Rales, Rhonchi - GI/Abdominal Exam GI & Abdominal Exam: Soft, Normal Bowel Sounds - Extremities Exam Extremities Exam: absent: Calf Tenderness - Back Exam Back Exam: absent: CVA tenderness (L), CVA tenderness (R) - Neurological Exam Neurological Exam: Alert - Psychiatric Exam Psychiatric exam: Normal Affect - Skin Skin Exam: absent: Cyanosis Assessment and Plan (1) ESRD (end stage renal disease) on dialysis Assessment & Plan: ESRD on HD now,discussed with electoral officer at bed side UF about 1999 k bath 2 meq NA 138 bicarb bath 34 Volume overloaded UF HTN continu meds hyperphosphatemia,and SHPT Status: Acute (2) Respiratory distress Status: Acute (3) Volume overload Status: Acute (4) CHF (congestive heart failure) Status: Chronic (5) Accelerated hypertension Status: Acute
[2018-01-25] MEDS: Pantoprazole 40 mg EC Tab PO SCH (12:30)
--- NOTE | 2018-01-25 14:09 | CP.PCM.HP ---
<Mirna Johnson - Last Filed: 01/25/18 14:38> History of Present Illness - History of Present Illness History of Present Illness: 77 yo F with PMH ESRD (HD MWF), HTN, Alzheimer's, admitted due to fluid overload, hyperkalemia due to missing hemodialysis this week. As per pt's son, she refuses to go as scheduled and presented to ED with shortness of breath. EKG did not show significant T wave changes Kayexalate, lasix and insulin given in ED. Emergency dialysis called in ED. Pt seen this morning while getting HD. Present on Admission - Present on Admission Any Indicators Present on Admission: No Review of Systems - Review of Systems All systems: reviewed and no additional remarkable complaints except Past Patient History - Infectious Disease Hx of Infectious Diseases: None - Tetanus Immunizations Tetanus Immunization: Unknown - Past Medical History & Family History Past Medical History?: Yes - Past Social History Smoking Status: Never Smoked Alcohol: None Drugs: Denies - CARDIAC Hx Congestive Heart Failure: Yes Hx Hypercholesterolemia: Yes Hx Hypertension: Yes - PULMONARY Hx Pneumonia: Yes - NEUROLOGICAL Hx Alzheimer's Disease: Yes Hx Dementia: Yes - HEENT Hx HEENT Problems: No - RENAL Hx Dialysis: Yes Type of Dialysis Access: LEFT ARM SHUNT Hx Kidney Stones: No Hx Renal Failure: Yes - ENDOCRINE/METABOLIC Hx Endocrine Disorders: No - HEMATOLOGICAL/ONCOLOGICAL Hx Anemia: Yes Hx Human Immunodeficiency Virus (HIV): No - INTEGUMENTARY Hx Dermatological Problems: No - MUSCULOSKELETAL/RHEUMATOLOGICAL Hx Falls: No - GASTROINTESTINAL Hx Gastrointestinal Disorders: Yes Hx Constipation: Yes - GENITOURINARY/GYNECOLOGICAL Hx Genitourinary Disorders: Yes - PSYCHIATRIC Hx Anxiety: Yes Hx Substance Use: No - SURGICAL HISTORY Hx Appendectomy: Yes Hx Tonsillectomy: Yes - ANESTHESIA Hx Anesthesia: Yes Hx Anesthesia Reactions: No Hx Malignant Hyperthermia: No Meds Allergies/Adverse Reactions: Allergies Allergy/AdvReac Type Severity Reaction Status Date / Time No Known Allergies Allergy Verified 01/24/18 17:21 Physical Exam - Constitutional Appears: Chronically Ill - Respiratory Exam Additional comments: coarse lung sounds bilaterally - Cardiovascular Exam Cardiovascular Exam: REGULAR RHYTHM - GI/Abdominal Exam GI & Abdominal Exam: Soft - Extremities Exam Additional comments: LUE AV fistula with HD in progress - Neurological Exam Neurological exam: Alert - Skin Skin Exam: Normal Color, Warm Results - Vital Signs Recent Vital Signs: Last Vital Signs Temp 98.8 F 01/25/18 12:00 Pulse 90 01/25/18 14:00 Resp 17 01/25/18 14:00 BP 148/63 01/25/18 14:00 Pulse Ox 98 01/25/18 14:00 - Labs Result Diagrams: 01/25/18 04:35 01/25/18 04:35 Labs: Laboratory Results - last 24 hr 01/24/18 01/24/18 01/24/18 17:46 17:46 17:46 WBC 11.9 H D RBC 4.13 Hgb 12.1 D Hct 36.2 MCV 87.8 MCH 29.4 MCHC 33.5 RDW 14.7 H Plt Count 209 MPV 10.9 Neut % (Auto) 65.4 Lymph % (Auto) 19.6 L [place] % (Auto) 9.2 Eos % (Auto) 4.5 H Baso % (Auto) 1.3 Neut # (Auto) 7.8 H Lymph # (Auto) 2.3 [place] # (Auto) 1.1 H Eos # (Auto) 0.5 Baso # (Auto) 0.2 pCO2 46 H pO2 294 H HCO3 23.4 ABG pH 7.33 L ABG Total CO2 25.7 ABG O2 Saturation 100.1 H ABG O2 Content 16.7 ABG Base Excess -1.9 ABG Hemoglobin 11.8 ABG Carboxyhemoglobin 1.0 POC ABG HHb (Measured) -0.1 L ABG Methemoglobin 2.8 ABG O2 Capacity 16.7 Nacho Test Yes A-a O2 Difference 362.0 Hgb O2 Saturation 96.2 Vent Mode Bipap Mechanical Rate 14 FiO2 100.0 Inspiratory BiPAP 12 Expiratory BiPAP 6 Crit Value Called To Dr ed castillo Crit Value Called By 6089 Crit Value Read Back Y Blood Gas Notified Time 1739 Sodium 134 Potassium 6.6 H* D Chloride 94 L Carbon Dioxide 24 Anion Gap 23 H BUN 66 H Creatinine 5.6 H Est GFR ( Amer) 9 Est GFR (Non-Af Amer) 7 Random Glucose 149 H Calcium 10.0 Total Bilirubin 0.8 AST 25 ALT 32 Alkaline Phosphatase 115 Troponin I 0.0770 NT-Pro-B Natriuret Pep 37977 H Total Protein 8.1 Albumin 4.9 Globulin 3.2 Albumin/Globulin Ratio 1.6 01/24/18 01/25/18 01/25/18 22:08 04:35 04:35 WBC 6.2 RBC 3.57 L Hgb 10.6 L Hct 31.4 L MCV 87.9 MCH 29.7 MCHC 33.8 RDW 14.4 Plt Count 163 MPV Neut % (Auto) Lymph % (Auto) [place] % (Auto) Eos % (Auto) Baso % (Auto) Neut # (Auto) Lymph # (Auto) [place] # (Auto) Eos # (Auto) Baso # (Auto) pCO2 pO2 HCO3 ABG pH ABG Total CO2 ABG O2 Saturation ABG O2 Content ABG Base Excess ABG Hemoglobin ABG Carboxyhemoglobin POC ABG HHb (Measured) ABG Methemoglobin ABG O2 Capacity Nacho Test A-a O2 Difference Hgb O2 Saturation Vent Mode Mechanical Rate FiO2 Inspiratory BiPAP Expiratory BiPAP Crit Value Called To Crit Value Called By Crit Value Read Back Blood Gas Notified Time Sodium 133 133 Potassium 5.8 H 5.8 H Chloride 95 L 95 L Carbon Dioxide 23 20 L Anion Gap 21 H 24 H BUN 71 H 72 H Creatinine 5.5 H 5.5 H Est GFR ( Amer) 9 9 Est GFR (Non-Af Amer) 7 7 Random Glucose 90 155 H Calcium 9.9 9.8 Total Bilirubin 0.8 AST 24 ALT 28 Alkaline Phosphatase 75 Troponin I NT-Pro-B Natriuret Pep Total Protein 7.0 Albumin 4.3 Globulin 2.6 Albumin/Globulin Ratio 1.7 Assessment & Plan (1) Volume overload Status: Acute (2) ESRD (end stage renal disease) on dialysis Status: Chronic (3) CHF (congestive heart failure) Status: Chronic - Assessment and Plan (Free Text) Plan: - Admitted to ICU - Nephrology- Dr. Benedict - Resume home meds - F/u BMP - Renal diet <Juan Carlos Del Rio - Last Filed: 01/27/18 19:04> Results - Vital Signs Recent Vital Signs: Last Vital Signs Temp 98 F 01/27/18 17:00 Pulse 69 01/27/18 17:00 Resp 18 01/27/18 17:00 BP 124/53 L 01/27/18 17:00 Pulse Ox 99 01/27/18 17:00 - Labs Result Diagrams: 01/26/18 05:30 01/26/18 05:30 Assessment & Plan - Assessment and Plan (Free Text) Plan: I was present during evaluation and discussed with Dr Taylor re plans of care and tx. Juan Carlos Del Rio M.D.
[2018-01-26 06:45] LABS: ALB/GLOB RATIO 1.7 (1.0-2.1)
[2018-01-26 06:56] LABS: BASO % 0.1 % (0.0-2.0); EOS % 0.1 % (0.0-4.0); HEMOGLOBIN 10.2 g/dL (12.0-16.0); LYMPH # 0.7 K/uL (1.0-4.3); LYMPH % 9.2 % (20.0-40.0); MEAN CELL VOLUME 89.1 fl (81.0-99.0); MEAN CORPUSCULAR HEMOGLOBIN 29.7 pg (27.0-31.0); MEAN CORPUSCULAR HGB CONC 33.3 g/dL (33.0-37.0); MEAN PLATELET VOLUME 10.5 fl (7.2-11.7); MONO # 0.9 K/uL (0.0-0.8); MONO % 10.9 % (0.0-10.0); NEUT # 6.3 K/uL (1.8-7.0); NEUT % 79.7 % (50.0-75.0); PLATELET COUNT 147 K/uL (130-400); RBC 3.43 Mil/uL (3.80-5.20); RED CELL DISTRIBUTION WIDTH 14.4 % (11.5-14.5); WHITE BLOOD COUNT 7.9 K/uL (4.8-10.8)
--- NOTE | 2018-01-26 07:34 | CP.CCUPN ---
CCU Subjective - Physician Review Events Since Last Encounter (Free Text): Patient awake, no distress, no fever, on O2 supplement by nasal canula, events reviewed CCU Objective - Vital Signs / Intake & Output Vital Signs (Last 4 hours): Vital Signs Temp Pulse Resp BP Pulse Ox 01/26/18 06:00 98 F 74 23 146/59 L 99 01/26/18 04:00 74 23 134/68 98 Intake and Output (Last 8hrs): Intake & Output 01/25/18 01/26/18 01/26/18 22:59 06:59 14:59 Intake Total 420 35 Output Total 3000 350 Balance -2580 -315 Weight 133 lb 3.2 oz Intake: IV 10 10 Oral 410 25 Output: Urine 300 350 Urethral ([place]) 300 350 Other 2700 Other: # Bowel Movements 1 - Physical Exam Head: Positive for: Atraumatic, Normocephalic Pupils: Positive for: PERRL Conjunctiva: Positive for: Normal Mouth: Positive for: Moist Mucous Membranes Nose (External): Positive for: Atraumatic Neck: Positive for: Normal Range of Motion Respiratory/Chest: Positive for: Rales Cardiovascular: Positive for: Regular Rate and Rhythm, Normal S1, S2 Abdomen: Positive for: Normal Bowel Sounds Back: Positive for: Normal Inspection Upper Extremity: Positive for: Normal Inspection Lower Extremity: Positive for: Normal Inspection Neurological: Positive for: Speech Normal Psychiatric: Positive for: Alert - Medications Active Medications: Active Medications Generic Name Dose Route Start Last Admin Trade Name Freq PRN Reason Stop Dose Admin Acetaminophen 650 mg 01/25/18 17:25 01/25/18 17:51 Tylenol 325mg Tab PO 650 mg Q6 PRN Administration Pain, Mild (1-3) Alprazolam 0.5 mg 01/25/18 09:37 01/26/18 00:17 Xanax PO 0.5 mg DAILY PRN Administration Anxiety Amlodipine Besylate 5 mg 01/25/18 09:00 01/25/18 12:30 Norvasc PO 5 mg DAILY ANKUR Administration Atorvastatin Calcium 20 mg 01/25/18 22:00 01/25/18 21:37 Lipitor PO 20 mg HS ANKUR Administration Calcium Carbonate 500 mg 01/25/18 13:00 01/25/18 16:13 Oscal PO 500 mg TID ANKUR Administration Clonidine HCl 0.1 mg 01/25/18 17:00 01/26/18 00:17 Catapres PO 0.1 mg Q8 ANKUR Administration Labetalol HCl 100 mg 01/25/18 17:00 01/25/18 17:05 Trandate PO 100 mg BID ANKUR Administration Lisinopril 5 mg 01/26/18 09:00 Zestril PO DAILY ANKUR Pantoprazole Sodium 40 mg 01/25/18 09:00 01/25/18 12:30 Protonix Ec Tab PO 01/26/18 09:01 40 mg DAILY ANKUR Administration - Patient Studies Lab Studies: Lab Studies 01/26/18 01/26/18 Range/Units 05:30 05:30 WBC 7.9 (4.8-10.8) K/uL RBC 3.43 L (3.80-5.20) Mil/uL Hgb 10.2 L (12.0-16.0) g/dL Hct 30.6 L (34.0-47.0) % MCV 89.1 (81.0-99.0) fl MCH 29.7 (27.0-31.0) pg MCHC 33.3 (33.0-37.0) g/dL RDW 14.4 (11.5-14.5) % Plt Count 147 (130-400) K/uL MPV 10.5 (7.2-11.7) fl Neut % (Auto) 79.7 H (50.0-75.0) % Lymph % (Auto) 9.2 L (20.0-40.0) % [place] % (Auto) 10.9 H (0.0-10.0) % Eos % (Auto) 0.1 (0.0-4.0) % Baso % (Auto) 0.1 (0.0-2.0) % Neut # (Auto) 6.3 (1.8-7.0) K/uL Lymph # (Auto) 0.7 L (1.0-4.3) K/uL [place] # (Auto) 0.9 H (0.0-0.8) K/uL Eos # (Auto) 0.0 (0.0-0.7) K/uL Baso # (Auto) 0.0 (0.0-0.2) K/uL Sodium 129 L (132-148) mmol/l Potassium 5.4 H (3.6-5.0) MMOL/L Chloride 91 L (98-107) mmol/L Carbon Dioxide 27 (22-30) mmol/L Anion Gap 16 (10-20) BUN 53 H (7-17) mg/dl Creatinine 3.9 H (0.7-1.2) mg/dl Est GFR ( Amer) 13 Est GFR (Non-Af Amer) 11 Random Glucose 116 H (65-105) mg/dL Calcium 9.0 (8.4-10.2) mg/dL Total Bilirubin 0.7 (0.2-1.3) mg/dl AST 27 (14-36) U/L ALT 28 (9-52) U/L Alkaline Phosphatase 75 (38-126) U/L Total Protein 6.5 (6.3-8.2) G/DL Albumin 4.0 (3.5-5.0) g/dL Globulin 2.4 (2.2-3.9) gm/dL Albumin/Globulin Ratio 1.7 (1.0-2.1) Laboratory Results - last 24 hr 01/26/18 01/26/18 05:30 05:30 WBC 7.9 RBC 3.43 L Hgb 10.2 L Hct 30.6 L MCV 89.1 MCH 29.7 MCHC 33.3 RDW 14.4 Plt Count 147 MPV 10.5 Neut % (Auto) 79.7 H Lymph % (Auto) 9.2 L [place] % (Auto) 10.9 H Eos % (Auto) 0.1 Baso % (Auto) 0.1 Neut # (Auto) 6.3 Lymph # (Auto) 0.7 L [place] # (Auto) 0.9 H Eos # (Auto) 0.0 Baso # (Auto) 0.0 Sodium 129 L Potassium 5.4 H Chloride 91 L Carbon Dioxide 27 Anion Gap 16 BUN 53 H Creatinine 3.9 H Est GFR ( Amer) 13 Est GFR (Non-Af Amer) 11 Random Glucose 116 H Calcium 9.0 Total Bilirubin 0.7 AST 27 ALT 28 Alkaline Phosphatase 75 Total Protein 6.5 Albumin 4.0 Globulin 2.4 Albumin/Globulin Ratio 1.7 Fingerstick Blood Sugar Results: 144 Critical Care Progress Note - Nutrition Nutrition: Nutrition Category Date Time Status Renal Diet [DIET] Diets 01/25/18 Breakfast Active Assessment/Plan - Assessment and Plan (Free Text) Assessment: A/P Respiratory failure, CHF, fluid overload, ESRD, HTN, dementia - O2 supplement - Continue meds - Dialysis as per renal - Pulmonary toilets
--- NOTE | 2018-01-26 07:45 | CP.PCM.PN ---
Subjective - Date & Time of Evaluation Date of Evaluation: 01/26/18 Time of Evaluation: 07:43 - Subjective Subjective: Patient feels a lot better. Still with some SOB but less Has no chest pain recent labs are all normal. Objective - Vital Signs/Intake and Output Vital Signs (last 24 hours): Temp Pulse Resp BP Pulse Ox 98 F 74 23 146/59 L 99 01/26/18 06:00 01/26/18 06:00 01/26/18 06:00 01/26/18 06:00 01/26/18 06:00 Intake and Output: 01/26/18 01/26/18 06:59 18:59 Intake Total 95 Output Total 350 Balance -255 - Medications Medications: Current Medications Acetaminophen (Tylenol 325mg Tab) 650 mg PO Q6 PRN PRN Reason: Pain, Mild (1-3) Last Admin: 01/25/18 17:51 Dose: 650 mg Alprazolam (Xanax) 0.5 mg PO DAILY PRN PRN Reason: Anxiety Last Admin: 01/26/18 00:17 Dose: 0.5 mg Amlodipine Besylate (Norvasc) [address] [facility] Last Admin: 01/25/18 12:30 Dose: 5 mg Atorvastatin Calcium (Lipitor) [address] [facility] Last Admin: 01/25/18 21:37 Dose: 20 mg Calcium Carbonate (Oscal) [address] [facility] Last Admin: 01/25/18 16:13 Dose: 500 mg Clonidine HCl (Catapres) 0.[address] [facility] Last Admin: 01/26/18 00:17 Dose: 0.1 mg Labetalol HCl (Trandate) [address] [facility] Last Admin: 01/25/18 17:05 Dose: 100 mg Lisinopril (Zestril) [address] [facility] Pantoprazole Sodium (Protonix Ec Tab) [address] [facility] Stop: 01/26/18 09:01 Last Admin: 01/25/18 12:30 Dose: 40 mg - Labs Labs: 01/26/18 05:30 01/26/18 05:30 - Head Exam Head Exam: NORMAL INSPECTION - Eye Exam Eye Exam: Normal appearance - ENT Exam ENT Exam: Mucous Membranes Moist - Respiratory Exam Respiratory Exam: Decreased Breath Sounds, Rales - Cardiovascular Exam Cardiovascular Exam: REGULAR RHYTHM - GI/Abdominal Exam GI & Abdominal Exam: Normal Bowel Sounds - Neurological Exam Neurological Exam: Awake, Oriented x3 Assessment and Plan (1) Pulmonary edema Status: Acute (2) CHF (congestive heart failure) Status: Chronic (3) ESRD (end stage renal disease) on dialysis Status: Chronic (4) Accelerated hypertension Status: Acute (5) Anxiety Status: Acute (6) Hyperlipidemia Status: Acute - Assessment and Plan (Free Text) Plan: cont HD cont tx start Phys therapy cont meds
[2018-01-26] MEDS: Pantoprazole 40 mg EC Tab PO SCH (08:37)
[2018-01-26 09:26] LABS: LYMPHOCYTE 10 % (20-50); MONOCYTE 6 % (0-10); NEUTROPHIL 84 % (42-75); PLATELET ESTIMATE SLIGHTLY DECREASED (NORMAL); TOTAL CELLS COUNTED 100
[2018-01-26 09:27] LABS: ANISOCYTOSIS SLIGHT; BURR CELLS MODERATE; LARGE PLATELETS PRESENT; MICROCYTOSIS SLIGHT; OVALOCYTES MODERATE; POIKILOCYTOSIS SLIGHT; TEARDROP CELLS SLIGHT
--- NOTE | 2018-01-26 10:31 | CP.PCM.PN ---
Subjective - Date & Time of Evaluation Date of Evaluation: 01/26/18 Time of Evaluation: 10:30 - Subjective Subjective: RENAL FOLLOW UP seen on hd tolerating tx bp stable uf 2 kg esrd: tts htn: continue meds consider psych eval - very non compliant ? dementia ? capacity to make decisions Objective - Vital Signs/Intake and Output Vital Signs (last 24 hours): Temp Pulse Resp BP Pulse Ox 98.5 F 75 15 140/53 L 100 01/26/18 08:00 01/26/18 10:00 01/26/18 10:00 01/26/18 10:00 01/26/18 10:00 Intake and Output: 01/26/18 01/26/18 06:59 18:59 Intake Total 95 240 Output Total 350 200 Balance -255 40 - Medications Medications: Current Medications Acetaminophen (Tylenol 325mg Tab) 650 mg PO Q6 PRN PRN Reason: Pain, Mild (1-3) Last Admin: 01/25/18 17:51 Dose: 650 mg Alprazolam (Xanax) 0.5 mg PO DAILY PRN PRN Reason: Anxiety Last Admin: 01/26/18 00:17 Dose: 0.5 mg Amlodipine Besylate (Norvasc) 5 mg PO DAILY [facility] Last Admin: 01/25/18 12:30 Dose: 5 mg Atorvastatin Calcium (Lipitor) 20 mg PO HS [facility] Last Admin: 01/25/18 21:37 Dose: 20 mg Calcium Carbonate (Oscal) 500 mg PO TID [facility] Last Admin: 01/26/18 08:36 Dose: 500 mg Clonidine HCl (Catapres) 0.1 mg PO Q8 [facility] Last Admin: 01/26/18 00:17 Dose: 0.1 mg Labetalol HCl (Trandate) 100 mg PO BID [facility] Last Admin: 01/25/18 17:05 Dose: 100 mg Lisinopril (Zestril) 5 mg PO DAILY [facility] - Labs Labs: 01/26/18 05:30 01/26/18 05:30
--- NOTE | 2018-01-27 19:10 | CP.PCM.PN ---
Subjective - Date & Time of Evaluation Date of Evaluation: 01/27/18 Time of Evaluation: 10:15 - Subjective Subjective: patient remains stable Has slight cough Has no SOB No chest pain Had HD Objective - Vital Signs/Intake and Output Vital Signs (last 24 hours): Temp Pulse Resp BP Pulse Ox 98 F 69 18 124/53 L 99 01/27/18 17:00 01/27/18 17:00 01/27/18 17:00 01/27/18 17:00 01/27/18 17:00 - Medications Medications: Current Medications Acetaminophen (Tylenol 325mg Tab) 650 mg PO Q6 PRN PRN Reason: Pain, Mild (1-3) Last Admin: 01/27/18 12:43 Dose: 650 mg Alprazolam (Xanax) 0.5 mg PO DAILY PRN PRN Reason: Anxiety Last Admin: 01/26/18 00:17 Dose: 0.5 mg Amlodipine Besylate (Norvasc) 5 mg PO DAILY [facility] Last Admin: 01/27/18 09:22 Dose: 5 mg Atorvastatin Calcium (Lipitor) 20 mg PO HS [facility] Last Admin: 01/26/18 21:18 Dose: 20 mg Calcium Carbonate (Oscal) 500 mg PO TID [facility] Last Admin: 01/27/18 16:02 Dose: 500 mg Clonidine HCl (Catapres) 0.1 mg PO Q8 [facility] Last Admin: 01/27/18 16:01 Dose: 0.1 mg Labetalol HCl (Trandate) 100 mg PO BID [facility] Last Admin: 01/27/18 16:02 Dose: 100 mg Lisinopril (Zestril) 5 mg PO DAILY [facility] Last Admin: 01/27/18 09:20 Dose: 5 mg - Labs Labs: 01/26/18 05:30 01/26/18 05:30 - Head Exam Head Exam: NORMAL INSPECTION - Eye Exam Eye Exam: Normal appearance - Respiratory Exam Respiratory Exam: Decreased Breath Sounds - Cardiovascular Exam Cardiovascular Exam: REGULAR RHYTHM - GI/Abdominal Exam GI & Abdominal Exam: Normal Bowel Sounds - Neurological Exam Neurological Exam: Awake, Oriented x3 - Psychiatric Exam Psychiatric exam: Anxious - Skin Skin Exam: Normal Color Assessment and Plan (1) Pulmonary edema Status: Acute (2) CHF (congestive heart failure) Status: Chronic (3) ESRD (end stage renal disease) on dialysis Status: Chronic (4) Accelerated hypertension Status: Acute (5) Anxiety Status: Acute (6) Hyperlipidemia Status: Acute - Assessment and Plan (Free Text) Plan: Con tmeds Cont HD cont tx check labs in am DC plans phys therapy
[2018-01-28 00:17] VITALS: RESP 20
[2018-01-28 06:31] LABS: BASO # 0.1 K/uL (0.0-0.2); BASO % 1.2 % (0.0-2.0); EOS # 0.4 K/uL (0.0-0.7); EOS % 6.4 % (0.0-4.0); HEMOGLOBIN 10.5 g/dL (12.0-16.0); LYMPH # 1.7 K/uL (1.0-4.3); MEAN CELL VOLUME 86.9 fl (81.0-99.0); MEAN CORPUSCULAR HEMOGLOBIN 29.6 pg (27.0-31.0); MEAN CORPUSCULAR HGB CONC 34.1 g/dL (33.0-37.0); MEAN PLATELET VOLUME 10.4 fl (7.2-11.7); MONO # 0.8 K/uL (0.0-0.8); MONO % 12.4 % (0.0-10.0); NEUT # 3.2 K/uL (1.8-7.0); RBC 3.54 Mil/uL (3.80-5.20); RED CELL DISTRIBUTION WIDTH 14.2 % (11.5-14.5); WHITE BLOOD COUNT 6.1 K/uL (4.8-10.8)
[2018-01-28 07:03] LABS: ALB/GLOB RATIO 1.7 (1.0-2.1); ALBUMIN 3.8 g/dL (3.5-5.0); CALCIUM 8.5 mg/dL (8.4-10.2)
[2018-01-28 07:57] VITALS: TEMP 98.4; O2SAT 97
--- NOTE | 2018-01-28 10:07 | CP.PCM.DIS ---
Provider - Provider Date of Admission: 01/24/18 19:06 Attending physician: Juan Carlos Del Rio MD Time Spent in preparation of Discharge (in minutes): 30 Diagnosis - Discharge Diagnosis (1) Pulmonary edema Status: Acute (2) CHF (congestive heart failure) Status: Chronic (3) ESRD (end stage renal disease) on dialysis Status: Chronic (4) Accelerated hypertension Status: Acute Priority: High (5) Anxiety Status: Acute (6) Hyperlipidemia Status: Acute Hospital Course - Lab Results Lab Results: Micro Results 01/24/18 08:09 Naris MRSA Culture (Admit) - Final MRSA NOT DETECTED Most Recent Lab Values WBC 6.1 K/uL (4.8-10.8) 01/28/18 05:40 RBC 3.54 Mil/uL (3.80-5.20) L 01/28/18 05:40 Hgb 10.5 g/dL (12.0-16.0) L 01/28/18 05:40 Hct 30.8 % (34.0-47.0) L 01/28/18 05:40 MCV 86.9 fl (81.0-99.0) D 01/28/18 05:40 MCH 29.6 pg (27.0-31.0) 01/28/18 05:40 MCHC 34.1 g/dL (33.0-37.0) 01/28/18 05:40 RDW 14.2 % (11.5-14.5) 01/28/18 05:40 Plt Count 147 K/uL (130-400) 01/28/18 05:40 MPV 10.4 fl (7.2-11.7) 01/28/18 05:40 Neut % (Auto) 52.0 % (50.0-75.0) 01/28/18 05:40 Lymph % (Auto) 28.0 % (20.0-40.0) 01/28/18 05:40 [place] % (Auto) 12.4 % (0.0-10.0) H 01/28/18 05:40 Eos % (Auto) 6.4 % (0.0-4.0) H 01/28/18 05:40 Baso % (Auto) 1.2 % (0.0-2.0) 01/28/18 05:40 Neut # (Auto) 3.2 K/uL (1.8-7.0) 01/28/18 05:40 Lymph # (Auto) 1.7 K/uL (1.0-4.3) 01/28/18 05:40 [place] # (Auto) 0.8 K/uL (0.0-0.8) 01/28/18 05:40 Eos # (Auto) 0.4 K/uL (0.0-0.7) 01/28/18 05:40 Baso # (Auto) 0.1 K/uL (0.0-0.2) 01/28/18 05:40 Neutrophils % (Manual) 84 % (42-75) H 01/26/18 05:30 Lymphocytes % (Manual) 10 % (20-50) L 01/26/18 05:30 Monocytes % (Manual) 6 % (0-10) 01/26/18 05:30 Platelet Estimate Slightly decreased (NORMAL) L 01/26/18 05:30 Large Platelets Present 01/26/18 05:30 Poikilocytosis (manual Slight 01/26/18 05:30 Anisocytosis (manual) Slight 01/26/18 05:30 Microcytosis (manual) Slight 01/26/18 05:30 Macrocytosis (manual) Slight 01/26/18 05:30 Tear Drop Cells Slight 01/26/18 05:30 Ovalocytes Moderate 01/26/18 05:30 [place] Cells Moderate 01/26/18 05:30 pCO2 46 mm/Hg (35-45) H 01/24/18 17:46 pO2 294 mm/Hg (80-100) H 01/24/18 17:46 HCO3 23.4 mmol/L (21-28) 01/24/18 17:46 ABG pH 7.33 (7.35-7.45) L 01/24/18 17:46 ABG Total CO2 25.7 mmol/L (22-28) 01/24/18 17:46 ABG O2 Saturation 100.1 % (95-98) H 01/24/18 17:46 ABG O2 Content 16.7 ML/dL (15-23) 01/24/18 17:46 ABG Base Excess -1.9 mmol/L (-2.0-3.0) 01/24/18 17:46 ABG Hemoglobin 11.8 g/dL (11.7-17.4) 01/24/18 17:46 ABG Carboxyhemoglobin 1.0 % (0.5-1.5) 01/24/18 17:46 POC ABG HHb (Measured) -0.1 % (0.0-5.0) L 01/24/18 17:46 ABG Methemoglobin 2.8 % (0.0-3.0) 01/24/18 17:46 ABG O2 Capacity 16.7 mL/dL (16-24) 01/24/18 17:46 Nacho Test Yes 01/24/18 17:46 A-a O2 Difference 362.0 mm/Hg 01/24/18 17:46 Hgb O2 Saturation 96.2 % (95.0-98.0) 01/24/18 17:46 Vent Mode Bipap 01/24/18 17:46 Mechanical Rate 14 01/24/18 17:46 FiO2 100.0 % 01/24/18 17:46 Inspiratory BiPAP 12 01/24/18 17:46 Expiratory BiPAP 6 01/24/18 17:46 Crit Value Called To Dr ed castillo 01/24/18 17:46 Crit Value Called By [id number] 01/24/18 17:46 Crit Value Read Back Y 01/24/18 17:46 Blood Gas Notified Time 1739 01/24/18 17:46 Sodium 127 mmol/l (132-148) L 01/28/18 05:40 Potassium 4.6 MMOL/L (3.6-5.0) 01/28/18 05:40 Chloride 90 mmol/L (98-107) L 01/28/18 05:40 Carbon Dioxide 25 mmol/L (22-30) 01/28/18 05:40 Anion Gap 17 (10-20) 01/28/18 05:40 BUN 56 mg/dl (7-17) H 01/28/18 05:40 Creatinine 4.7 mg/dl (0.7-1.2) H 01/28/18 05:40 Est GFR ( Amer) 11 01/28/18 05:40 Est GFR (Non-Af Amer) 9 01/28/18 05:40 Random Glucose 97 mg/dL (65-105) 01/28/18 05:40 Calcium 8.5 mg/dL (8.4-10.2) 01/28/18 05:40 Total Bilirubin 0.8 mg/dl (0.2-1.3) 01/28/18 05:40 AST 17 U/L (14-36) 01/28/18 05:40 ALT 18 U/L (9-52) 01/28/18 05:40 Alkaline Phosphatase 63 U/L (38-126) 01/28/18 05:40 Troponin I 0.0770 ng/mL (0.00-0.120) 01/24/18 17:46 NT-Pro-B Natriuret Pep 73490 pg/ml (0-900) H 01/28/18 05:40 Total Protein 6.1 G/DL (6.3-8.2) L 01/28/18 05:40 Albumin 3.8 g/dL (3.5-5.0) 01/28/18 05:40 Globulin 2.3 gm/dL (2.2-3.9) 01/28/18 05:40 Albumin/Globulin Ratio 1.7 (1.0-2.1) 01/28/18 05:40 - Hospital Course Hospital Course: This is a 77 y/o female admitted for acute pulmonary edema/ CHF. She had missed a couple of her HD and started having SOB. He was given HD and imp[roved significantly. She was also given neb tx. She was started on po meds and phys therapy and was discharged in stable condition . 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 Discharge Exam - Head Exam Head Exam: NORMAL INSPECTION - Eye Exam Eye Exam: Normal appearance - Respiratory Exam Respiratory Exam: NORMAL BREATHING PATTERN - Cardiovascular Exam Cardiovascular Exam: REGULAR RHYTHM - GI/Abdominal Exam GI & Abdominal Exam: Normal Bowel Sounds - Neurological Exam Neurological exam: CN II-XII Intact, Oriented x3 - Psychiatric Exam Psychiatric exam: Normal Mood - Skin Skin Exam: Dry Discharge Plan - Follow Up Plan Condition: GUARDED Disposition: HOME/ ROUTINE Additional Instructions: advised follow up with PMD and HD.
--- NOTE | 2018-01-28 10:11 | CP.PCM.PN ---
Subjective - Date & Time of Evaluation Date of Evaluation: 01/28/18 Time of Evaluation: 10:08 - Subjective Subjective: Patient appeared to be stable vital signs stable no nausea no vomiting Objective - Vital Signs/Intake and Output Vital Signs (last 24 hours): Temp Pulse Resp BP Pulse Ox 98.4 F 68 20 150/63 97 01/28/18 07:56 01/28/18 09:44 01/28/18 07:56 01/28/18 09:44 01/28/18 07:56 - Medications Medications: Current Medications Acetaminophen (Tylenol 325mg Tab) 650 mg PO Q6 PRN PRN Reason: Pain, Mild (1-3) Last Admin: 01/27/18 12:43 Dose: 650 mg Amlodipine Besylate (Norvasc) 5 mg PO DAILY [facility] Last Admin: 01/28/18 09:44 Dose: 5 mg Atorvastatin Calcium (Lipitor) 20 mg PO HS [facility] Last Admin: 01/27/18 22:11 Dose: 20 mg Calcium Carbonate (Oscal) 500 mg PO TID [facility] Last Admin: 01/28/18 09:44 Dose: 500 mg Clonidine HCl (Catapres) 0.1 mg PO Q8 [facility] Last Admin: 01/28/18 01:02 Dose: 0.1 mg Labetalol HCl (Trandate) 100 mg PO BID [facility] Last Admin: 01/28/18 09:44 Dose: 100 mg Lisinopril (Zestril) 5 mg PO DAILY [facility] Last Admin: 01/28/18 09:44 Dose: 5 mg - Labs Labs: 01/28/18 05:40 01/28/18 05:40 - Constitutional Appears: No Acute Distress - ENT Exam ENT Exam: Mucous Membranes Dry - Neck Exam Neck Exam: absent: Lymphadenopathy - Respiratory Exam Respiratory Exam: NORMAL BREATHING PATTERN. absent: Rales - Cardiovascular Exam Cardiovascular Exam: REGULAR RHYTHM. absent: Gallop, JVD, Rubs - GI/Abdominal Exam GI & Abdominal Exam: Soft, Normal Bowel Sounds - Extremities Exam Extremities Exam: absent: Calf Tenderness - Back Exam Back Exam: absent: CVA tenderness (L), CVA tenderness (R) - Neurological Exam Neurological Exam: Alert - Psychiatric Exam Psychiatric exam: Normal Affect - Skin Skin Exam: absent: Cyanosis Assessment and Plan (1) ESRD (end stage renal disease) on dialysis Assessment & Plan: Patient with end stage renal disease who is known to be noncompliance lady she does not show up as outpatient all the time at the dialysis centers she isn't aware about that and instructed all over again show up and the dialysis. Although serum sodium somewhat low advised to cut down on the fluid and put fluid restriction until her dialysis time tomorrow morning Status: Chronic (2) Respiratory distress Status: Acute (3) Volume overload Status: Acute (4) CHF (congestive heart failure) Status: Chronic (5) Accelerated hypertension Status: Acute
[2018-01-28 11:02] VITALS: BP 142/62; PULSE 69
--- NOTE | 2018-01-28 11:52 | CARD ---
APPROVED REPORT Date of service: 01/24/2018 EKG Measurement Heart [id number] <Conclusion> Normal sinus rhythm Moderate voltage criteria for LVH, may be normal variant ST & T wave abnormality, consider lateral ischemia Abnormal ECG
--- NOTE | 2018-02-07 13:12 | PQF ---
PROVIDER RESPONSE TEXT: Acute CHF, CHFpEF REVIEWER QUERY TEXT: CHF Acuity and Type Congestive Heart Failure is documented in the Medical Record. Please document the type and acuity (in cludes probable or suspected) Such as: Type: -- Systolic -- Diastolic -- Combined -- Other, please specify Acuity: -- Acute -- Chronic -- Acute on chronic -- Other, please specify Also please document the underlying cause of the CHF (includes probable or suspected) The patient's Clinical Indicators include: BNP 37,000 Query created by: Marcy Bro on 01/29/2018 9:40 AM PROVIDER RESPONSE TEXT: ESRD on HD REVIEWER QUERY TEXT: Kidney Failure, Acute - Associated Conditions Acute Renal Failure is documented in the ER Physician Documentation Report. Please specify if you ag ree with this diagnosis. Such as: -- Acute Renal Failure -- Acute Tubular Necrosis -- Cortical Necrosis -- Papillary or Medullary Necrosis -- Traumatic Anuria -- None are likely contributors -- Other, please specify The patient's Clinical Indicators include: BUN 66 CREATININE 5.6 Query created by: Marcy Bro on 01/29/2018 9:45 AM Electronically signed by: Bibi Pruitt 02/07/2018 1:09 PM
== END 2018-01-28 13:40 | disposition home or self-care (01) | DRG 291 ==
LOC: H.ER 17:17 → H.ERHOLD 19:06 → H.ICU/CCU 20:51 → H.MEDSURG1 01-26 15:07
PROVIDERS: ADMIT Family Medicine; ATTEND Family Medicine
DX: I13.2 Hypertensive heart and chronic kidney disease with heart failure and with stage 5 chronic kidney disease, or end stage renal disease (principal); N18.6 End stage renal disease; I50.33 Acute on chronic diastolic (congestive) heart failure; I50.1 Left ventricular failure, unspecified; E87.5 Hyperkalemia; Z99.2 Dependence on renal dialysis; Z91.15 Patient's noncompliance with renal dialysis; F02.80 Dementia in other diseases classified elsewhere, unspecified severity, without behavioral disturbance, psychotic disturbance, mood disturbance, and anxiety; G30.9 Alzheimer's disease, unspecified; F41.9 Anxiety disorder, unspecified; E78.00 Pure hypercholesterolemia, unspecified; E78.5 Hyperlipidemia, unspecified; R06.03 Acute respiratory distress

== ENCOUNTER 2018-02-07 07:16 | Inpatient (IN) | payer MEDICARE ==
[2018-02-07 07:17] VITALS: BMI 17.2
[2018-02-07] MEDS ORDERED: EnalaprilAT 1.25 mg/ml Inj ONE (07:34)
[2018-02-07] MEDS ORDERED: Albuterol-Ipratrop 3 mg / 0.5 (3 ml) UD ONE (07:35)
[2018-02-07] MEDS ORDERED: Nitroglycerin 2% Ointment Foilpak UD TOP ONE ×2 (07:40→08:07)
[2018-02-07] MEDS ORDERED: EnalaprilAT 1.25 mg/ml Inj IVP STA (07:53)
[2018-02-07] MEDS ORDERED: Albuterol-Ipratrop 3 mg / 0.5 (3 ml) UD INH STA ×2 (07:53)
[2018-02-07] MEDS ORDERED: Nitroglycerin 2% 15 INCH/30 GM TUBE TOP STA (07:54)
--- NOTE | 2018-02-07 08:01 | ED PDOC ---
HPI: SOB/CHF/COPD Time Seen by Provider: 02/07/18 07:27 Chief Complaint (Nursing): Shortness Of Breath Chief Complaint (Provider): Shortness Of Breath History Per: EMS History/Exam Limitations: clinical condition Onset/Duration Of Symptoms: Days (x14) Current Symptoms Are (Timing): Still Present Additional Complaint(s): 77 y/o female presents to the ED for severe respiratory distress. Patient has not been to dialysis for two weeks. History obtained from EMS due to patient's inability to conduct full sentences. PMD: HILARY MOSLEY Past Medical History Reviewed: Historical Data, Nursing Documentation, Vital Signs Vital Signs: Last Vital Signs Temp 97.6 F 02/09/18 12:17 Pulse 64 02/09/18 12:17 Resp 18 02/09/18 12:17 BP 128/59 L 02/09/18 12:17 Pulse Ox 99 02/09/18 15:36 - Medical History PMH: Alzheimer's Disease, Anemia, Anxiety, CHF, Dementia, HTN, Hypercholesterolemia, Pneumonia, End Stage Renal Disease, Chronic Kidney Disease Denies: HIV, Kidney Stones, Schizophrenia - Surgical History Surgical History: Appendectomy, Tonsillectomy - Family History Family History: States: Hypertension - Immunization History Hx Tetanus Toxoid Vaccination: No Hx Influenza Vaccination: No Hx Pneumococcal Vaccination: No - Home Medications Home Medications: Ambulatory Orders Medication Instructions Recorded Atorvastatin [Lipitor] 20 mg PO DAILY 08/16/16 Labetalol [Trandate] 100 mg PO BID 08/16/16 amLODIPine [Norvasc] 5 mg PO DAILY 08/16/16 Calcium Carbonate [Oscal] 500 mg PO TID 10/16/17 cloNIDine [Catapres] 0.1 mg PO Q8 #30 tab 01/07/18 Alprazolam [Xanax] 0.5 mg PO DAILY PRN 01/24/18 Lisinopril [Zestril] 5 mg PO DAILY 01/24/18 - Allergies Allergies/Adverse Reactions: Allergies Allergy/AdvReac Type Severity Reaction Status Date / Time No Known Allergies Allergy Verified 01/24/18 17:21 Review of Systems ROS Statement: Except As Marked, All Systems Reviewed And Found Negative Respiratory: Positive for: Shortness of Breath Physical Exam - Physical Exam Appears: Positive for: In Acute Distress Head Exam: Positive for: ATRAUMATIC Skin: Positive for: Normal Color, Warm, Dry Eye Exam: Positive for: Normal appearance Neck: Positive for: Normal Cardiovascular/Chest: Positive for: Regular Rate, Rhythm, Tachycardia Respiratory: Positive for: Respiratory Distress (Severe), Other (Decreased air movement) Extremity: Positive for: Normal ROM. Negative for: Deformity Neurologic/Psych: Positive for: Alert (Awake,) - Laboratory Results Result Diagrams: 02/07/18 07:55 02/07/18 07:55 - ECG O2 Sat by Pulse Oximetry: 99 (RA) Pulse Ox Interpretation: Normal - Critical Care Total Time (In Min): 60 Medical Decision Making Medical Decision Making: Time: 075 Impression: Flash Pulmonary Edema Plan: -- Arterial Blood Gas -- EKG -- B-Type Natriuretic -- CMP -- Magnesium -- Troponin I -- ED Urine Dipstick -- CBC with differentials -- PTT -- Prothrombin Time -- CXR One View -- Vasotec 1.25 mg IVP -- Nitroglycerin 2% 1 inch Top -- Lasix 80 mg IVP -- Duoneb [3 mg/0.5 mg (3 ml) UD] 3 ml INH -- Duoneb [3 mg/0.5 mg (3 ml) UD] 3 ml INH -- Bipap Procedure -- Peak Flow Pre/Post Tx -- Peak Flow Pre/Post Tx Time: 935 -- Case discussed with Dr. Benedict for consultation Time: 1020 CXR RESULTS FINDINGS: LUNGS: No definitive airspace disease identified bilaterally once again. PLEURA: No definite pleural effusion bilaterally. No pneumothorax as well. CARDIOVASCULAR: Diminishing cardiac silhouette as well as pulmonary vascular pattern. Interstitial changes have improved but with significant residual noted bilaterally. OSSEOUS STRUCTURES: No significant abnormalities. VISUALIZED UPPER ABDOMEN: Normal. OTHER FINDINGS: None. IMPRESSION: Improving active CHF. No interval alveolitis bilaterally. No pleural effusions bilaterally. Scribe Attestation: Documented by Lonnie Rosen acting as a scribe for Dr. Laura Arnold MD. Provider Scribe Attestation: All medical record entries made by the Scribe were at my direction and personally dictated by me. I have reviewed the chart and agree that the record accurately reflects my personal performance of the history, physical exam, medical decision making, and the department course for this patient. I have also personally directed, reviewed, and agree with the discharge instructions and disposition. Disposition - Clinical Impression Clinical Impression: Fluid overload, Missed dialysis, Pulmonary edema - Patient ED Disposition Is Patient to be Admitted: Yes - Disposition Disposition Time: 09:36 Condition: GUARDED - Pt Status Changed To: Hospital Disposition Of: Inpatient - Admit Certification Admit to Inpatient:: After my assessment, the patient will require hospitalization for at least two midnights. This is because of the severity of symptoms shown, intensity of services needed, and/or the medical risk in this patient being treated as an outpatient. - POA Present On Arrival: None
[2018-02-07 08:20] LABS: BASO # 0.1 K/uL (0.0-0.2); BASO % 1.4 % (0.0-2.0); EOS # 0.3 K/uL (0.0-0.7); EOS % 2.6 % (0.0-4.0); HEMOGLOBIN 11.6 g/dL (12.0-16.0); LYMPH # 1.5 K/uL (1.0-4.3); LYMPH % 14.6 % (20.0-40.0); MEAN CELL VOLUME 89.3 fl (81.0-99.0); MEAN CORPUSCULAR HEMOGLOBIN 29.6 pg (27.0-31.0); MEAN CORPUSCULAR HGB CONC 33.1 g/dL (33.0-37.0); MEAN PLATELET VOLUME 10.9 fl (7.2-11.7); MONO # 0.8 K/uL (0.0-0.8); MONO % 7.9 % (0.0-10.0); NEUT # 7.5 K/uL (1.8-7.0); NEUT % 73.5 % (50.0-75.0); RBC 3.92 Mil/uL (3.80-5.20); RED CELL DISTRIBUTION WIDTH 14.4 % (11.5-14.5); WHITE BLOOD COUNT 10.2 K/uL (4.8-10.8)
[2018-02-07 08:29] LABS: ABG ALLEN TEST YES; ARTERIAL BLOOD GAS HCO3 22.1 mmol/L (21-28); ARTERIAL BLOOD GAS HEMOGLOBIN 10.8 g/dL (11.7-17.4); ARTERIAL BLOOD GAS O2 CAPACITY 14.4 mL/dL (16-24); ARTERIAL BLOOD GAS O2 CONTENT 11.2 ML/dL (15-23); ARTERIAL BLOOD GAS O2 SAT 77.9 % (95-98); ARTERIAL BLOOD GAS PCO2 53 mm/Hg (35-45); ARTERIAL BLOOD GAS PH 7.27 (7.35-7.45); ARTERIAL BLOOD GAS PO2 43 mm/Hg (80-100); ARTERIAL BLOOD GAS TCO2 25.9 mmol/L (22-28)
[2018-02-07 08:42] LABS: INR 0.9 (0.9-1.2); PARTIAL THROMBOPLASTIN TIME 20.6 Seconds (25.6-37.1); PROTHROMBIN TIME 9.7 Seconds (9.8-13.1)
[2018-02-07 08:43] LABS: TROPONIN I 0.024 ng/mL (0.00-0.120)
[2018-02-07 08:53] LABS: ALB/GLOB RATIO 1.7 (1.0-2.1); ALBUMIN 5.1 g/dL (3.5-5.0); CALCIUM 10.2 mg/dL (8.4-10.2)
--- NOTE | 2018-02-07 10:22 | RAD ---
Date of service: 02/07/2018 PROCEDURE: CHEST RADIOGRAPH, 1 VIEW HISTORY: SOB COMPARISON: Frontal chest radiograph 01/24/2018. FINDINGS: LUNGS: No definitive airspace disease identified bilaterally once again. PLEURA: No definite pleural effusion bilaterally. No pneumothorax as well. CARDIOVASCULAR: Diminishing cardiac silhouette as well as pulmonary vascular pattern. Interstitial changes have improved but with significant residual noted bilaterally. OSSEOUS STRUCTURES: No significant abnormalities. VISUALIZED UPPER ABDOMEN: Normal. OTHER FINDINGS: None. IMPRESSION: Improving active CHF. No interval alveolitis bilaterally. No pleural effusions bilaterally.
--- NOTE | 2018-02-07 10:51 | CP.PCM.CON ---
History of Present Illness - History of Present Illness History of Present Illness: this patient who is 77 years of age femalevery difficult patient that she has been refusing to go outpatient for dialysis and she comes to the emergency room every time missing dialysis,social Ms. dialysis for about 10 days to 2 weeks she did not show up as usual she always missed dialysis and preferred to come to the emergency room despite every counseling with the son and the patient and the family. Patient came with shortness of breath difficulty breathing with sign of volume overloaded and hyperkalemia patient known to be noncompliance as we mentioned above Asked medical history End stage renal disease on maintenance hemodialysis is not showing up for dialysis Hypertension history of hyperphosphatemia history of secondary hyperparathyroidism Review of Systems - Review of Systems Systems not reviewed;Unavailable: Respiratory Distress - Constitutional Constitutional: absent: Chills - Cardiovascular Cardiovascular: Dyspnea, Edema. absent: Chest Pain at Rest - Respiratory Respiratory: Cough. absent: Dyspnea, Hemoptysis - Genitourinary Genitourinary: Nocturia - Musculoskeletal Musculoskeletal: absent: Abnormal Gait - Neurological Neurological: absent: Abnormal Gait, Confusion - Endocrine Endocrine: Fatigue - Hematologic/Lymphatic Hematologic: absent: Easy Bleeding Past Patient History - Infectious Disease Hx of Infectious Diseases: None - Tetanus Immunizations Tetanus Immunization: Unknown - Past Medical History & Family History Past Medical History?: Yes - Past Social History Smoking Status: Never Smoked - CARDIAC Hx Congestive Heart Failure: Yes Hx Hypercholesterolemia: Yes Hx Hypertension: Yes - PULMONARY Hx Pneumonia: Yes - NEUROLOGICAL Hx Alzheimer's Disease: Yes Hx Dementia: Yes - HEENT Hx HEENT Problems: No - RENAL Hx Chronic Kidney Disease: Yes Hx Kidney Stones: No - ENDOCRINE/METABOLIC Hx Endocrine Disorders: No - HEMATOLOGICAL/ONCOLOGICAL Hx Anemia: Yes Hx Human Immunodeficiency Virus (HIV): No - INTEGUMENTARY Hx Dermatological Problems: No - MUSCULOSKELETAL/RHEUMATOLOGICAL Hx Falls: No - GASTROINTESTINAL Hx Gastrointestinal Disorders: Yes Hx Constipation: Yes - GENITOURINARY/GYNECOLOGICAL Hx Genitourinary Disorders: Yes - PSYCHIATRIC Hx Anxiety: Yes Hx Schizophrenia: No - SURGICAL HISTORY Hx Appendectomy: Yes Hx Tonsillectomy: Yes - ANESTHESIA Hx Anesthesia: Yes Hx Anesthesia Reactions: No Hx Malignant Hyperthermia: No Meds Allergies/Adverse Reactions: Allergies Allergy/AdvReac Type Severity Reaction Status Date / Time No Known Allergies Allergy Verified 01/24/18 17:21 - Medications Medications: Current Medications Alprazolam (Xanax) 0.5 mg PO DAILY PRN PRN Reason: Anxiety Amlodipine Besylate (Norvasc) 5 mg PO DAILY [facility] Atorvastatin Calcium (Lipitor) 20 mg PO DAILY [facility] Calcium Carbonate (Oscal) 500 mg PO TID [facility] Clonidine HCl (Catapres) 0.1 mg PO Q8 [facility] Furosemide (Lasix) 40 mg IVP DAILY [facility] Labetalol HCl (Trandate) 100 mg PO BID [facility] Lisinopril (Zestril) 5 mg PO DAILY [facility] Physical Exam - Eye Exam Eye Exam: Conjunctival injection - ENT Exam ENT Exam: Mucous Membranes Moist - Neck Exam Neck exam: Negative for: Lymphadenopathy - Respiratory Exam Respiratory Exam: Rales, Rhonchi. absent: Chest Wall Tenderness - Cardiovascular Exam Cardiovascular Exam: absent: Gallop, JVD, Rubs - GI/Abdominal Exam GI & Abdominal Exam: Normal Bowel Sounds. absent: Guarding - Extremities Exam Extremities exam: Negative for: calf tenderness - Back Exam Back exam: absent: CVA tenderness (L), CVA tenderness (R) - Neurological Exam Neurological exam: Alert Results - Vital Signs Recent Vital Signs: Last Vital Signs Temp 98.5 F 02/07/18 10:43 Pulse 85 02/07/18 10:43 Resp 20 02/07/18 10:43 BP 185/83 H 02/07/18 10:43 Pulse Ox 100 02/07/18 10:43 - Labs Result Diagrams: 02/07/18 07:55 02/07/18 07:55 Labs: Laboratory Results - last 24 hr 02/07/18 02/07/18 02/07/18 07:54 07:55 07:55 WBC 10.2 D RBC 3.92 Hgb 11.6 L Hct 35.0 MCV 89.3 D MCH 29.6 MCHC 33.1 RDW 14.4 Plt Count 152 MPV 10.9 Neut % (Auto) 73.5 Lymph % (Auto) 14.6 L [place] % (Auto) 7.9 Eos % (Auto) 2.6 Baso % (Auto) 1.4 Neut # (Auto) 7.5 H Lymph # (Auto) 1.5 [place] # (Auto) 0.8 Eos # (Auto) 0.3 Baso # (Auto) 0.1 PT INR APTT pCO2 53 H pO2 43 L* HCO3 22.1 ABG pH 7.27 L ABG Total CO2 25.9 ABG O2 Saturation 77.9 L ABG O2 Content 11.2 L ABG Base Excess -3.0 L ABG Hemoglobin 10.8 L ABG Carboxyhemoglobin 2.2 H POC ABG HHb (Measured) 20.9 H ABG Methemoglobin 3.4 H ABG O2 Capacity 14.4 L Nacho Test Yes A-a O2 Difference 604.0 Hgb O2 Saturation 73.5 L Mechanical Rate 16 FiO2 100.0 Inspiratory BiPAP 15 Expiratory BiPAP 10 Crit Value Called To Dr hdoges Crit Value Called By 15 Crit Value Read Back Y Blood Gas Notified Time 827 Sodium 139 Potassium 5.2 H Chloride 101 Carbon Dioxide 19 L Anion Gap 24 H BUN 64 H Creatinine 5.4 H Est GFR ( Amer) 9 Est GFR (Non-Af Amer) 8 Random Glucose 138 H Calcium 10.2 Magnesium 2.0 Total Bilirubin 1.1 AST 45 H D ALT 33 Alkaline Phosphatase 113 Troponin I 0.0240 NT-Pro-B Natriuret Pep 72610 H Total Protein 8.1 Albumin 5.1 H D Globulin 3.0 Albumin/Globulin Ratio 1.7 02/07/18 07:55 WBC RBC Hgb Hct MCV MCH MCHC RDW Plt Count MPV Neut % (Auto) Lymph % (Auto) [place] % (Auto) Eos % (Auto) Baso % (Auto) Neut # (Auto) Lymph # (Auto) [place] # (Auto) Eos # (Auto) Baso # (Auto) PT 9.7 L INR 0.9 APTT 20.6 L pCO2 pO2 HCO3 ABG pH ABG Total CO2 ABG O2 Saturation ABG O2 Content ABG Base Excess ABG Hemoglobin ABG Carboxyhemoglobin POC ABG HHb (Measured) ABG Methemoglobin ABG O2 Capacity Nacho Test A-a O2 Difference Hgb O2 Saturation Mechanical Rate FiO2 Inspiratory BiPAP Expiratory BiPAP Crit Value Called To Crit Value Called By Crit Value Read Back Blood Gas Notified Time Sodium Potassium Chloride Carbon Dioxide Anion Gap BUN Creatinine Est GFR ( Amer) Est GFR (Non-Af Amer) Random Glucose Calcium Magnesium Total Bilirubin AST ALT Alkaline Phosphatase Troponin I NT-Pro-B Natriuret Pep Total Protein Albumin Globulin Albumin/Globulin Ratio Assessment & Plan (1) CKD (chronic kidney disease) requiring chronic dialysis Assessment and Plan: patient with end stage renal disease admitted with volume overloaded and congestive heart failure because she missed dialysis for 2 weeks Arrangement for stat dialysis underway Hyperkalemia patient to be given some Kayexalate when she is waiting for dialysis Hypertension Hyperphosphatemia Secondary hyperparathyroidism To resume all the medications Status: Acute (2) Accelerated hypertension Status: Acute Priority: High (3) Anemia Status: Acute
--- NOTE | 2018-02-07 11:26 | CP.PCM.HP ---
History of Present Illness - History of Present Illness History of Present Illness: HPI: 77 YO female with PMHx of Alzheimers, ESRD on HD, anemia, anxiety and hypercholesterolemia presents to [facility] ED for dyspnea. Pt seen and examined by bedside in ED, two sons in room. States that pt refuses to go to dialysis and since d/c from the hospital has missed about 2 weeks of dialysis. Pt has been noted to be short of breath and symptoms worsened today. Denies chest pain, abdominal pain, n/v/d/c fever and chills. PMD: Dr. Genaro Martínez Zipper Slide Attacher: Dr. Benedict PMHx: Alzheimers, ESRD (on HD), anemia, anxiety and hypercholesterolemia SurgHx: appendectomy, tonsillectomy FMHx: HTN SocHx: denies tobacco, Etoh or drugs Allergies: NKDA Present on Admission - Present on Admission Any Indicators Present on Admission: No Review of Systems - Cardiovascular Cardiovascular: Dyspnea. absent: Chest Pain - Respiratory Respiratory: Dyspnea. absent: Cough - Gastrointestinal Gastrointestinal: absent: Abdominal Pain Past Patient History - Infectious Disease Hx of Infectious Diseases: None - Tetanus Immunizations Tetanus Immunization: Unknown - Past Medical History & Family History Past Medical History?: Yes - Past Social History Smoking Status: Never Smoked Alcohol: None Drugs: Denies - CARDIAC Hx Congestive Heart Failure: Yes Hx Hypercholesterolemia: Yes Hx Hypertension: Yes - PULMONARY Hx Pneumonia: Yes - NEUROLOGICAL Hx Alzheimer's Disease: Yes Hx Dementia: Yes - HEENT Hx HEENT Problems: No - RENAL Hx Chronic Kidney Disease: Yes Hx Kidney Stones: No - ENDOCRINE/METABOLIC Hx Endocrine Disorders: No - HEMATOLOGICAL/ONCOLOGICAL Hx Anemia: Yes Hx Human Immunodeficiency Virus (HIV): No - INTEGUMENTARY Hx Dermatological Problems: No - MUSCULOSKELETAL/RHEUMATOLOGICAL Hx Falls: No - GASTROINTESTINAL Hx Gastrointestinal Disorders: Yes Hx Constipation: Yes - GENITOURINARY/GYNECOLOGICAL Hx Genitourinary Disorders: Yes - PSYCHIATRIC Hx Anxiety: Yes Hx Schizophrenia: No - SURGICAL HISTORY Hx Appendectomy: Yes Hx Tonsillectomy: Yes - ANESTHESIA Hx Anesthesia: Yes Hx Anesthesia Reactions: No Hx Malignant Hyperthermia: No Meds Allergies/Adverse Reactions: Allergies Allergy/AdvReac Type Severity Reaction Status Date / Time No Known Allergies Allergy Verified 01/24/18 17:21 Physical Exam - Constitutional Appears: No Acute Distress - Respiratory Exam Respiratory Exam: Rales, Wheezes - Cardiovascular Exam Cardiovascular Exam: REGULAR RHYTHM, +S1, +S2, Systolic Murmur - GI/Abdominal Exam GI & Abdominal Exam: Normal Bowel Sounds, Soft. absent: Tenderness - Extremities Exam Additional comments: 1+ edema up to the mid islas b/l - Neurological Exam Additional comments: Awake, alert but not oriented Baseline dementia - Skin Skin Exam: Dry Results - Vital Signs Recent Vital Signs: Last Vital Signs Temp 98.5 F 02/07/18 10:43 Pulse 85 02/07/18 10:43 Resp 20 02/07/18 10:43 BP 185/83 H 02/07/18 10:43 Pulse Ox 100 02/07/18 10:43 - Labs Result Diagrams: 02/07/18 07:55 02/07/18 07:55 Labs: Laboratory Results - last 24 hr 02/07/18 02/07/18 02/07/18 07:54 07:55 07:55 WBC 10.2 D RBC 3.92 Hgb 11.6 L Hct 35.0 MCV 89.3 D MCH 29.6 MCHC 33.1 RDW 14.4 Plt Count 152 MPV 10.9 Neut % (Auto) 73.5 Lymph % (Auto) 14.6 L Zapata % (Auto) 7.9 Eos % (Auto) 2.6 Baso % (Auto) 1.4 Neut # (Auto) 7.5 H Lymph # (Auto) 1.5 Zapata # (Auto) 0.8 Eos # (Auto) 0.3 Baso # (Auto) 0.1 PT INR APTT pCO2 53 H pO2 43 L* HCO3 22.1 ABG pH 7.27 L ABG Total CO2 25.9 ABG O2 Saturation 77.9 L ABG O2 Content 11.2 L ABG Base Excess -3.0 L ABG Hemoglobin 10.8 L ABG Carboxyhemoglobin 2.2 H POC ABG HHb (Measured) 20.9 H ABG Methemoglobin 3.4 H ABG O2 Capacity 14.4 L Nacho Test Yes A-a O2 Difference 604.0 Hgb O2 Saturation 73.5 L Mechanical Rate 16 FiO2 100.0 Inspiratory BiPAP 15 Expiratory BiPAP 10 Crit Value Called To Dr hodges Crit Value Called By 15 Crit Value Read Back Y Blood Gas Notified Time 827 Sodium 139 Potassium 5.2 H Chloride 101 Carbon Dioxide 19 L Anion Gap 24 H BUN 64 H Creatinine 5.4 H Est GFR ( Amer) 9 Est GFR (Non-Af Amer) 8 Random Glucose 138 H Calcium 10.2 Magnesium 2.0 Total Bilirubin 1.1 AST 45 H D ALT 33 Alkaline Phosphatase 113 Troponin I 0.0240 NT-Pro-B Natriuret Pep 18147 H Total Protein 8.1 Albumin 5.1 H D Globulin 3.0 Albumin/Globulin Ratio 1.7 02/07/18 07:55 WBC RBC Hgb Hct MCV MCH MCHC RDW Plt Count MPV Neut % (Auto) Lymph % (Auto) Zapata % (Auto) Eos % (Auto) Baso % (Auto) Neut # (Auto) Lymph # (Auto) Zapata # (Auto) Eos # (Auto) Baso # (Auto) PT 9.7 L INR 0.9 APTT 20.6 L pCO2 pO2 HCO3 ABG pH ABG Total CO2 ABG O2 Saturation ABG O2 Content ABG Base Excess ABG Hemoglobin ABG Carboxyhemoglobin POC ABG HHb (Measured) ABG Methemoglobin ABG O2 Capacity Nacho Test A-a O2 Difference Hgb O2 Saturation Mechanical Rate FiO2 Inspiratory BiPAP Expiratory BiPAP Crit Value Called To Crit Value Called By Crit Value Read Back Blood Gas Notified Time Sodium Potassium Chloride Carbon Dioxide Anion Gap BUN Creatinine Est GFR ( Amer) Est GFR (Non-Af Amer) Random Glucose Calcium Magnesium Total Bilirubin AST ALT Alkaline Phosphatase Troponin I NT-Pro-B Natriuret Pep Total Protein Albumin Globulin Albumin/Globulin Ratio Assessment & Plan - Assessment and Plan (Free Text) Assessment: Assessment/Plan: 77 YO female with PMHx of Alzheimers, ESRD on HD, anemia, anxiety and hypercholesterolemia is admitted for acute CHF, Hyperkalemia. -acute CHF likely 2/2 to volume overload from missed dialysis -elevated Pro-BNP likely 2/2 to acute CHF and ESRD -echo 10/2017 EF 50% with LVH and moderate aortic stenosis -EKG no acute ST changes, trop neg x 1 -CXR sig for improving active CHF -nephrology consulted for HD -repeat trops -plan as ordered Pt seen and examined with Dr. Del Rio
--- NOTE | 2018-02-07 12:26 | CARD ---
APPROVED REPORT Date of service: 02/07/2018 EKG Measurement Heart [id number] <Conclusion> Sinus tachycardia Possible Left atrial enlargement Left ventricular hypertrophy Abnormal ECG
--- NOTE | 2018-02-08 09:04 | CP.PCM.PN ---
Subjective - Date & Time of Evaluation Date of Evaluation: 02/08/18 Time of Evaluation: 09:02 - Subjective Subjective: dialysis note patient was seen on hemodialysis now. Patient sitting up in bed with less shortness of breath. Ultrafiltration set to be about 1500 mL today Sodium bath 138 Serum bath 2 mEq Bicarbonate bath 34 No chest pain reported Objective - Vital Signs/Intake and Output Vital Signs (last 24 hours): Temp Pulse Resp BP Pulse Ox 98.7 F 74 18 159/56 H 100 02/08/18 08:03 02/08/18 08:03 02/08/18 08:03 02/08/18 08:03 02/08/18 08:03 - Medications Medications: Current Medications Alprazolam (Xanax) 0.5 mg PO DAILY PRN PRN Reason: Anxiety Last Admin: 02/07/18 17:17 Dose: 0.5 mg Atorvastatin Calcium (Lipitor) 20 mg PO DAILY [facility] Calcium Carbonate (Oscal) 500 mg PO TID [facility] Last Admin: 02/07/18 17:03 Dose: 500 mg Clonidine HCl (Catapres) 0.1 mg PO Q8 [facility] Last Admin: 02/07/18 19:57 Dose: Not Given Furosemide (Lasix) 40 mg IVP DAILY [facility] Labetalol HCl (Trandate) 100 mg PO BID [facility] Last Admin: 02/07/18 17:03 Dose: 100 mg Lisinopril (Zestril) 5 mg PO DAILY [facility] - Labs Labs: 02/07/18 07:55 02/07/18 07:55 PT 9.7 Seconds (9.8-13.1) L 02/07/18 07:55 INR 0.9 (0.9-1.2) 02/07/18 07:55 APTT 20.6 Seconds (25.6-37.1) L 02/07/18 07:55 - Constitutional Appears: No Acute Distress - Eye Exam Eye Exam: Conjunctival injection - ENT Exam ENT Exam: Mucous Membranes Moist - Neck Exam Neck Exam: absent: Lymphadenopathy - Respiratory Exam Respiratory Exam: Rhonchi, NORMAL BREATHING PATTERN. absent: Chest Wall Tenderness - Cardiovascular Exam Cardiovascular Exam: absent: Gallop, JVD, Rubs - GI/Abdominal Exam GI & Abdominal Exam: Soft, Normal Bowel Sounds - Extremities Exam Extremities Exam: absent: Calf Tenderness - Back Exam Back Exam: absent: CVA tenderness (L), CVA tenderness (R) - Neurological Exam Neurological Exam: Alert - Psychiatric Exam Psychiatric exam: Normal Affect - Skin Skin Exam: absent: Cyanosis Assessment and Plan (1) CKD (chronic kidney disease) requiring chronic dialysis Assessment & Plan: end stage renal disease Patient receiving dialysis Discussed with the dialysis nurse at the bedside Volume overloaded was congestive heart failure patient receiving ultrafiltration. Hypertension better controlled Hyperphosphatemia Secondary hyperparathyroidism Alzheimer Patient keep refusing to go as outpatient to dialysis however today she said she will go. Status: Acute (2) Accelerated hypertension Status: Acute (3) Anemia Status: Acute
--- NOTE | 2018-02-08 12:25 | CP.PCM.PN ---
Subjective - Date & Time of Evaluation Date of Evaluation: 02/08/18 Time of Evaluation: 08:35 - Subjective Subjective: During dialysis pt was tachycardic with Afib on telemetry strip. Pt was given labatalol and Cradizem. Pt seen and examined this AM. Currently getting dialysis. States that she feels well, breathing is "good." Denies chest pain, palpitations. Objective - Vital Signs/Intake and Output Vital Signs (last 24 hours): Temp Pulse Resp BP Pulse Ox 97.6 F 64 18 176/68 H 99 02/08/18 12:03 02/08/18 12:03 02/08/18 12:03 02/08/18 12:03 02/08/18 12:03 - Medications Medications: Current Medications Alprazolam (Xanax) 0.5 mg PO DAILY PRN PRN Reason: Anxiety Last Admin: 02/07/18 17:17 Dose: 0.5 mg Atorvastatin Calcium (Lipitor) 20 mg PO DAILY [facility] Calcium Carbonate (Oscal) 500 mg PO TID [facility] Last Admin: 02/07/18 17:03 Dose: 500 mg Clonidine HCl (Catapres) 0.1 mg PO Q8 [facility] Last Admin: 02/07/18 19:57 Dose: Not Given Furosemide (Lasix) 40 mg IVP DAILY [facility] Labetalol HCl (Trandate) 100 mg PO BID [facility] Last Admin: 02/07/18 17:03 Dose: 100 mg Lisinopril (Zestril) 5 mg PO DAILY [facility] - Labs Labs: 02/07/18 07:55 02/07/18 07:55 PT 9.7 Seconds (9.8-13.1) L 02/07/18 07:55 INR 0.9 (0.9-1.2) 02/07/18 07:55 APTT 20.6 Seconds (25.6-37.1) L 02/07/18 07:55 - Constitutional Appears: No Acute Distress - Head Exam Head Exam: NORMAL INSPECTION - Eye Exam Eye Exam: Normal appearance - Respiratory Exam Respiratory Exam: Clear to Ausculation Bilateral. absent: Wheezes - Cardiovascular Exam Cardiovascular Exam: REGULAR RHYTHM, +S2 - GI/Abdominal Exam GI & Abdominal Exam: Soft, Normal Bowel Sounds. absent: Tenderness - Extremities Exam Extremities Exam: Normal Inspection Additional comments: Fistula in L arm - Neurological Exam Neurological Exam: Alert, Awake Assessment and Plan (1) Missed dialysis Status: Acute (2) CHF (congestive heart failure) Status: Chronic (3) Dementia Status: Chronic (4) ESRD (end stage renal disease) on dialysis Status: Acute (5) Hyperkalemia Status: Acute (6) Hypertension Status: Chronic - Assessment and Plan (Free Text) Assessment: Assessment/Plan: 77 YO female with PMHx of HTN, Alzheimers, ESRD on HD, anemia, anxiety and hypercholesterolemia is admitted for acute CHF, Hyperkalemia. -acute CHF likely 2/2 to volume overload from missed dialysis -elevated Pro-BNP likely 2/2 to acute CHF and ESRD -echo 10/2017 EF 50% with LVH and moderate aortic stenosis -EKG no acute ST changes, trop neg x 2 -repeat blood work in AM -bp remains labile -nephrology consulted for HD -Cardiology on board -plan as ordered Pt seen and examined with Dr. Del Rio
--- NOTE | 2018-02-08 13:34 | CP.PCM.CON ---
Past Patient History - Infectious Disease Hx of Infectious Diseases: None - Tetanus Immunizations Tetanus Immunization: Unknown - Past Medical History & Family History Past Medical History?: Yes - Past Social History Smoking Status: Never Smoked - CARDIAC Hx Congestive Heart Failure: Yes Hx Hypercholesterolemia: Yes Hx Hypertension: Yes - PULMONARY Hx Pneumonia: Yes - NEUROLOGICAL Hx Alzheimer's Disease: Yes Hx Dementia: Yes - HEENT Hx HEENT Problems: No - RENAL Hx Chronic Kidney Disease: Yes Hx Kidney Stones: No - ENDOCRINE/METABOLIC Hx Endocrine Disorders: No - HEMATOLOGICAL/ONCOLOGICAL Hx AIDS: No Hx Anemia: Yes Hx Human Immunodeficiency Virus (HIV): No - INTEGUMENTARY Hx Dermatological Problems: No - MUSCULOSKELETAL/RHEUMATOLOGICAL Hx Falls: Yes - GASTROINTESTINAL Hx Gastrointestinal Disorders: Yes Hx Constipation: Yes - GENITOURINARY/GYNECOLOGICAL Hx Genitourinary Disorders: Yes - PSYCHIATRIC Hx Anxiety: Yes Hx Schizophrenia: No Hx Substance Use: No - SURGICAL HISTORY Hx Appendectomy: Yes Hx Tonsillectomy: Yes - ANESTHESIA Hx Anesthesia: Yes Hx Anesthesia Reactions: No Hx Malignant Hyperthermia: No Meds Allergies/Adverse Reactions: Allergies Allergy/AdvReac Type Severity Reaction Status Date / Time No Known Allergies Allergy Verified 01/24/18 17:21 - Medications Medications: Current Medications Alprazolam (Xanax) 0.5 mg PO DAILY PRN PRN Reason: Anxiety Last Admin: 02/07/18 17:17 Dose: 0.5 mg Atorvastatin Calcium (Lipitor) 20 mg PO DAILY [facility] Calcium Carbonate (Oscal) 500 mg PO TID [facility] Last Admin: 02/08/18 09:00 Dose: Not Given Clonidine HCl (Catapres) 0.1 mg PO Q8 [facility] Last Admin: 02/08/18 09:00 Dose: Not Given Furosemide (Lasix) 40 mg IVP DAILY [facility] Labetalol HCl (Trandate) 100 mg PO BID [facility] Last Admin: 02/08/18 09:00 Dose: Not Given Lisinopril (Zestril) 5 mg PO DAILY [facility] Results - Vital Signs Recent Vital Signs: Last Vital Signs Temp 97.6 F 02/08/18 12:03 Pulse 64 02/08/18 12:03 Resp 18 02/08/18 12:03 BP 176/68 H 02/08/18 12:03 Pulse Ox 99 02/08/18 12:03 - Labs Result Diagrams: 02/07/18 07:55 02/07/18 07:55 Labs: Laboratory Results - last 24 hr 02/07/18 02/07/18 02/07/18 15:40 16:38 21:07 POC Glucose (mg/dL) 161 H 155 H Troponin I 0.0390 02/08/18 11:03 POC Glucose (mg/dL) 123 H Troponin I
[2018-02-09] MEDS: Multivitamin Vitamin B Complex (Nephro-Vite) Tab PO SCH (10:55)
--- NOTE | 2018-02-09 13:37 | PN ---
DATE: 02/09/2018 SUBJECTIVE: The patient seen and examined. Interim events noted. Consults noted and appreciated. The patient remains in progressive care unit and telemetry monitoring. The patient seen for Dr. Del Rio while he is away. The patient is awake, responsive, feels okay, denies any chest pain or shortness of breath. PHYSICAL EXAMINATION: GENERAL: The patient is in no acute distress. VITAL SIGNS: Stable. HEART: S1 and S2, normal and regular. LUNGS: Good bilateral air exchange. Occasion basal crepitations. ABDOMEN: Soft and nontender. No organomegaly. No fluid. Bowel sounds are plus and normal. EXTREMITIES: No edema. No calf swelling. No tenderness. No acute ischemia. MEDICATION MANAGER: Exam is essentially unchanged. DIAGNOSTIC DATA: Available diagnostic data reviewed. Telemetry monitoring does not reveal significant arrhythmias. ASSESSMENT AND PLAN: Overall, the patient's general medical condition is hemodynamically stable. Plan as ordered . Darnell Rosado MD
--- NOTE | 2018-02-09 17:22 | CP.PCM.PN ---
Subjective - Date & Time of Evaluation Date of Evaluation: 02/09/18 Time of Evaluation: 17:20 - Subjective Subjective: Nephrology Consultation: Assessment: Stable missed hD with fluid overload/pulmonary edema End stage renal disease on hemodialysis via AVF with missed HD Anemia, Hyperphosphatemia, Secondary hyperparathyroidism, HTN, dementia non compliance with HD aortic stenosis/sclerosis Plan: Will plan for HD Sunday as ordered. Continue with Nephrovite 1 tab/day. PRBC as needed for anemia. last Hb 11.5 hence no STEWART last phos level 4 last PTH 113 hence no need for calcitriol. seum Ca on high side hence d/c Ca carbonate BP control with meds as ordered. Patient on RAAS floresita as Lisinopril but will d/c due to tendency for missed hD and hyperkalemia Glycemic control, Dialysis consistent diet Further work up/management as per primary team Dose meds/antibiotics (if needed) for ESRD status. Avoid fleets enema/magnesium based laxatives. Thanks for allowing me to participate in care of your patient. Will follow patient with you. Please call if any Qs Dr Sridhar Day Office: [phone] ROS: unable much reliably due to her dementia. overall denies CP/SOB/nasuea/ vomittign. rest all other neg Physical Examination: General Appearance: Comfortable, in no acute respiratory distress, co-operative . Vitals reviewed and noted as below Head; Atraumatic, normocephalic ENT: no ulcers no thrush. Tongue is midline. Oropharynx: no rash or ulcers. EYES: Pupils are equal, round and reactive to light accommodation. Eye muscles and extraocular movement intact. Sclera is anicteric. Neck; supple no lymphadenopathy, no thyromegaly or bruit Lungs: Normal respiratory rate/effort. Breath sounds bilateral equal and with few basal crackles Heart: Normal rate. s1s2 normal. No rub or gallop. Extremities: no edema. No varicose veins Neurological: Patient is alert, awake and demented. No focal deficit. Strength bilateral appropriate and equal Skin: Warm and dry. Normal turgor. No rash. Palpitation: Normal elasticity for age Abdomen: Abdomen is soft. Bowel sounds +. There is no abdominal tenderness, no guarding/rigidity or organomegaly Psych: lack insight and has normal affect/mood MSK: no joint tenderness or swelling. Digits and nails normal, no deformity : kidney or bladder not palpable Access: AVF Labs/imaging reviewed. Past medical history, past surgical history, family history, social history, allergy reviewed and noted as below Objective - Vital Signs/Intake and Output Vital Signs (last 24 hours): Temp Pulse Resp BP Pulse Ox 98.4 F 70 20 120/56 L 99 02/09/18 16:00 02/09/18 16:41 02/09/18 16:00 02/09/18 16:41 02/09/18 16:00 - Medications Medications: Current Medications Acetaminophen (Tylenol 325mg Tab) 650 mg PO Q6 PRN PRN Reason: Pain, moderate (4-7) Last Admin: 02/09/18 16:44 Dose: 650 mg Alprazolam (Xanax) 0.5 mg PO DAILY PRN PRN Reason: Anxiety Last Admin: 02/07/18 17:17 Dose: 0.5 mg Atorvastatin Calcium (Lipitor) 20 mg PO DAILY [facility] Last Admin: 02/09/18 10:48 Dose: 20 mg Clonidine HCl (Catapres) 0.1 mg PO Q8 [facility] Last Admin: 02/09/18 16:41 Dose: 0.1 mg Furosemide (Lasix) 40 mg IVP DAILY [facility] Last Admin: 02/09/18 10:49 Dose: 40 mg Labetalol HCl (Trandate) 100 mg PO BID [facility] Last Admin: 02/09/18 16:41 Dose: 100 mg Vitamin B Complex/Vit C/Folic Acid (Nephro-Valentino) 1 tab PO DAILY [facility] Last Admin: 02/09/18 10:55 Dose: 1 tab - Labs Labs: 02/07/18 07:55 02/07/18 07:55 PT 9.7 Seconds (9.8-13.1) L 02/07/18 07:55 INR 0.9 (0.9-1.2) 02/07/18 07:55 APTT 20.6 Seconds (25.6-37.1) L 02/07/18 07:55
[2018-02-10 07:22] LABS: HEMOGLOBIN 9.3 g/dL (12.0-16.0); MEAN CELL VOLUME 87.1 fl (81.0-99.0); MEAN CORPUSCULAR HEMOGLOBIN 30.1 pg (27.0-31.0); MEAN CORPUSCULAR HGB CONC 34.6 g/dL (33.0-37.0); RBC 3.08 Mil/uL (3.80-5.20)
[2018-02-10 07:41] LABS: ALB/GLOB RATIO 1.4 (1.0-2.1); ALBUMIN 3.4 g/dL (3.5-5.0); CALCIUM 8.7 mg/dL (8.4-10.2)
[2018-02-10] MEDS: Multivitamin Vitamin B Complex (Nephro-Vite) Tab PO SCH (09:24)
--- NOTE | 2018-02-10 11:25 | CP.PCM.PN ---
Subjective - Date & Time of Evaluation Date of Evaluation: 02/10/18 Time of Evaluation: 11:24 - Subjective Subjective: Nephrology Consultation: Assessment: Stable missed hD with fluid overload/pulmonary edema End stage renal disease on hemodialysis via AVF with missed HD Anemia, Hyperphosphatemia, Secondary hyperparathyroidism, HTN, dementia non compliance with HD aortic stenosis/sclerosis Plan: Will plan for HD Sunday as ordered. Continue with Nephrovite 1 tab/day. PRBC as needed for anemia. last Hb 9.3 hence ordered STEWART with HD last phos level 4 last PTH 113 hence no need for calcitriol. seum Ca on high side hence d/c Ca carbonate BP control with meds as ordered. Patient on RAAS floresita as Lisinopril but will d/c due to tendency for missed hD and hyperkalemia. incresaed labetalol Glycemic control, Dialysis consistent diet Further work up/management as per primary team Dose meds/antibiotics (if needed) for ESRD status. Avoid fleets enema/magnesium based laxatives. pt and son was counselled to be compliant to outpt HD Thanks for allowing me to participate in care of your patient. Will follow patient with you. Please call if any Qs. d/w son Dr Sridhar Day Office: [phone] ROS: unable much reliably due to her dementia. overall denies CP/SOB/nausea/ vomiting. rest all other neg Physical Examination: General Appearance: Comfortable, in no acute respiratory distress, co-operative . Vitals reviewed and noted as below Head; Atraumatic, normocephalic ENT: no ulcers no thrush. Tongue is midline. Oropharynx: no rash or ulcers. EYES: Pupils are equal, round and reactive to light accommodation. Eye muscles and extraocular movement intact. Sclera is anicteric. Neck; supple no lymphadenopathy, no thyromegaly or bruit Lungs: Normal respiratory rate/effort. Breath sounds bilateral equal and with few basal crackles Heart: Normal rate. s1s2 normal. No rub or gallop. Extremities: no edema. No varicose veins Neurological: Patient is alert, awake and demented. No focal deficit. Strength bilateral appropriate and equal Skin: Warm and dry. Normal turgor. No rash. Palpitation: Normal elasticity for age Abdomen: Abdomen is soft. Bowel sounds +. There is no abdominal tenderness, no guarding/rigidity or organomegaly Psych: lack insight and has normal affect/mood MSK: no joint tenderness or swelling. Digits and nails normal, no deformity : kidney or bladder not palpable Access: AVF Labs/imaging reviewed. Past medical history, past surgical history, family history, social history, allergy reviewed and noted as below Objective - Vital Signs/Intake and Output Vital Signs (last 24 hours): Temp Pulse Resp BP Pulse Ox 98.1 F 65 18 161/66 H 99 02/10/18 08:03 02/10/18 08:03 02/10/18 08:03 02/10/18 09:22 02/10/18 08:03 - Medications Medications: Current Medications Acetaminophen (Tylenol 325mg Tab) 650 mg PO Q6 PRN PRN Reason: Pain, moderate (4-7) Last Admin: 02/10/18 11:03 Dose: 650 mg Alprazolam (Xanax) 0.5 mg PO DAILY PRN PRN Reason: Anxiety Last Admin: 02/07/18 17:17 Dose: 0.5 mg Atorvastatin Calcium (Lipitor) 20 mg PO DAILY [facility] Last Admin: 02/10/18 09:23 Dose: 20 mg Clonidine HCl (Catapres) 0.1 mg PO Q8 [facility] Last Admin: 02/10/18 09:22 Dose: 0.1 mg Epoetin Seth (Procrit) 4,000 unit IV F [facility] Furosemide (Lasix) 40 mg IVP DAILY [facility] Last Admin: 02/10/18 09:23 Dose: Not Given Labetalol HCl (Trandate) 200 mg PO BID [facility] Last Admin: 02/10/18 10:51 Dose: Not Given Vitamin B Complex/Vit C/Folic Acid (Nephro-Valentino) 1 tab PO DAILY [facility] Last Admin: 02/10/18 09:24 Dose: 1 tab - Labs Labs: 02/10/18 05:30 02/10/18 05:30 PT 9.7 Seconds (9.8-13.1) L 02/07/18 07:55 INR 0.9 (0.9-1.2) 02/07/18 07:55 APTT 20.6 Seconds (25.6-37.1) L 02/07/18 07:55
[2018-02-11] MEDS: Multivitamin Vitamin B Complex (Nephro-Vite) Tab PO SCH (09:16)
--- NOTE | 2018-02-11 09:39 | CP.PCM.PN ---
Subjective - Date & Time of Evaluation Date of Evaluation: 02/11/18 Time of Evaluation: 09:38 - Subjective Subjective: patient awake and conscious she appeared to be comfortable Vital signs stable No new events reported Objective - Vital Signs/Intake and Output Vital Signs (last 24 hours): Temp Pulse Resp BP Pulse Ox 97.7 F 66 18 163/56 H 99 02/11/18 04:19 02/11/18 04:19 02/11/18 04:19 02/11/18 04:19 02/11/18 04:19 - Medications Medications: Current Medications Acetaminophen (Tylenol 325mg Tab) 650 mg PO Q6 PRN PRN Reason: Pain, moderate (4-7) Last Admin: 02/10/18 11:03 Dose: 650 mg Alprazolam (Xanax) 0.5 mg PO DAILY PRN PRN Reason: Anxiety Last Admin: 02/07/18 17:17 Dose: 0.5 mg Atorvastatin Calcium (Lipitor) 20 mg PO DAILY [facility] Last Admin: 02/11/18 09:16 Dose: 20 mg Clonidine HCl (Catapres) 0.1 mg PO Q8 [facility] Last Admin: 02/11/18 09:14 Dose: 0.1 mg Epoetin Seth (Procrit) 4,000 unit IV MWF [facility] Furosemide (Lasix) 40 mg IVP DAILY [facility] Last Admin: 02/11/18 09:16 Dose: Not Given Labetalol HCl (Trandate) 200 mg PO BID [facility] Last Admin: 02/11/18 09:17 Dose: 200 mg Vitamin B Complex/Vit C/Folic Acid (Nephro-Valentino) 1 tab PO DAILY [facility] Last Admin: 02/11/18 09:16 Dose: 1 tab - Labs Labs: 02/10/18 05:30 02/10/18 05:30 PT 9.7 Seconds (9.8-13.1) L 02/07/18 07:55 INR 0.9 (0.9-1.2) 02/07/18 07:55 APTT 20.6 Seconds (25.6-37.1) L 02/07/18 07:55 - Constitutional Appears: No Acute Distress - ENT Exam ENT Exam: Mucous Membranes Moist - Respiratory Exam Respiratory Exam: NORMAL BREATHING PATTERN - GI/Abdominal Exam GI & Abdominal Exam: Soft, Normal Bowel Sounds - Extremities Exam Extremities Exam: absent: Calf Tenderness - Back Exam Back Exam: absent: CVA tenderness (L), CVA tenderness (R) - Neurological Exam Neurological Exam: Alert - Psychiatric Exam Psychiatric exam: Normal Affect - Skin Skin Exam: absent: Cyanosis Assessment and Plan (1) CKD (chronic kidney disease) requiring chronic dialysis Assessment & Plan: missed hD with fluid overload/pulmonary edema End stage renal disease on hemodialysis via AVF with missed HD Anemia, Hyperphosphatemia, Secondary hyperparathyroidism, HTN, dementia non compliance with HD aortic stenosis/sclerosis Plan: Will plan for HD Sunday as ordered. Continue with Nephrovite 1 tab/day. PRBC as needed for anemia. last Hb 9.3 hence ordered STEWART with HD last phos level 4 last PTH 113 hence no need for calcitriol. seum Ca on high side hence d/c Ca carbonate BP control with meds as ordered. Patient on RAAS floresita as Lisinopril but will d/c due to tendency for missed hD and hyperkalemia. incresaed labetalol Glycemic control, Dialysis consistent diet Further work up/management as per primary team Dose meds/antibiotics (if needed) for ESRD status. Avoid fleets enema/magnesium based laxatives. pt and son was counselled to be compliant to outpt HD Status: Acute (2) Accelerated hypertension Status: Acute (3) Anemia Status: Acute
[2018-02-11] MEDS: Epoetin Alfa 4000 UNIT/ML Inj IV SCH (15:44)
[2018-02-11] MEDS ORDERED: Lidocaine/Prilocaine CREAM 5GM TP PRN (17:15)
[2018-02-12] MEDS ORDERED: Lidocaine 2.5% OINTMENT TOP ONE (08:47)
--- NOTE | 2018-02-12 11:55 | CP.PCM.PN ---
Subjective - Date & Time of Evaluation Date of Evaluation: 02/12/18 Time of Evaluation: 11:54 - Subjective Subjective: dialysis note she was seen on hemodialysis now Patient awake conscious not in any distress appears to be comfortable. More dialysis running through left upper arm AV fistula I discussed dialysis order with the dialysis nurse at the bedside Objective - Vital Signs/Intake and Output Vital Signs (last 24 hours): Temp Pulse Resp BP Pulse Ox 97.5 F L 62 18 151/68 H 98 02/12/18 08:31 02/12/18 08:31 02/12/18 08:31 02/12/18 08:31 02/12/18 08:31 - Medications Medications: Current Medications Acetaminophen (Tylenol 325mg Tab) 650 mg PO Q6 PRN PRN Reason: Pain, moderate (4-7) Last Admin: 02/12/18 09:04 Dose: 650 mg Atorvastatin Calcium (Lipitor) 20 mg PO DAILY [facility] Last Admin: 02/11/18 09:16 Dose: 20 mg Clonidine HCl (Catapres) 0.1 mg PO Q8 [facility] Last Admin: 02/12/18 01:47 Dose: 0.1 mg Epoetin Seth (Procrit) 4,000 unit IV MWF [facility] Last Admin: 02/11/18 15:44 Dose: Not Given Furosemide (Lasix) 40 mg IVP DAILY [facility] Last Admin: 02/11/18 09:16 Dose: Not Given Labetalol HCl (Trandate) 200 mg PO BID [facility] Last Admin: 02/11/18 16:32 Dose: 200 mg Lidocaine/Prilocaine (Lidocaine/Prilocaine 2.5%-2.5%) 1 applic TP ONCE PRN PRN Reason: pain Last Admin: 02/12/18 09:04 Dose: 1 applic Vitamin B Complex/Vit C/Folic Acid (Nephro-Valentino) 1 tab PO DAILY [facility] Last Admin: 02/11/18 09:16 Dose: 1 tab - Labs Labs: 02/10/18 05:30 02/10/18 05:30 PT 9.7 Seconds (9.8-13.1) L 02/07/18 07:55 INR 0.9 (0.9-1.2) 02/07/18 07:55 APTT 20.6 Seconds (25.6-37.1) L 02/07/18 07:55 - Constitutional Appears: No Acute Distress - Eye Exam Eye Exam: Conjunctival injection - ENT Exam ENT Exam: Mucous Membranes Moist - Neck Exam Neck Exam: absent: Lymphadenopathy - Respiratory Exam Respiratory Exam: NORMAL BREATHING PATTERN. absent: Chest Wall Tenderness - Cardiovascular Exam Cardiovascular Exam: absent: Gallop, JVD, Rubs - GI/Abdominal Exam GI & Abdominal Exam: Soft, Normal Bowel Sounds - Extremities Exam Extremities Exam: absent: Calf Tenderness - Back Exam Back Exam: absent: CVA tenderness (L), CVA tenderness (R) - Neurological Exam Neurological Exam: Alert - Skin Skin Exam: absent: Cyanosis Assessment and Plan (1) CKD (chronic kidney disease) requiring chronic dialysis Assessment & Plan: missed hD with fluid overload/pulmonary edema End stage renal disease on hemodialysis via AVF with missed HD Anemia, Hyperphosphatemia, Secondary hyperparathyroidism, HTN, dementia non compliance with HD aortic stenosis/sclerosis patient seen on hemodialysis now and tolerating well She may be leaving to subacute unit. The son at the bedside I discussed with him the plan as well Status: Acute (2) Accelerated hypertension Status: Acute (3) Anemia Status: Acute
--- NOTE | 2018-02-12 12:16 | CP.PCM.DIS ---
Provider - Provider Date of Admission: 02/07/18 09:36 Attending physician: Juan Carlos Del Rio MD Time Spent in preparation of Discharge (in minutes): 20 Diagnosis - Discharge Diagnosis (1) Missed dialysis Status: Acute (2) CHF (congestive heart failure) Status: Chronic (3) Dementia Status: Chronic Priority: Low (4) ESRD (end stage renal disease) on dialysis Status: Chronic Priority: High (5) Hyperkalemia Status: Resolved (6) Hypertension Status: Chronic Hospital Course - Lab Results Lab Results: Most Recent Lab Values WBC 5.0 K/uL (4.8-10.8) D 02/10/18 05:30 RBC 3.08 Mil/uL (3.80-5.20) L 02/10/18 05:30 Hgb 9.3 g/dL (12.0-16.0) L D 02/10/18 05:30 Hct 26.9 % (34.0-47.0) L 02/10/18 05:30 MCV 87.1 fl (81.0-99.0) D 02/10/18 05:30 MCH 30.1 pg (27.0-31.0) 02/10/18 05:30 MCHC 34.6 g/dL (33.0-37.0) 02/10/18 05:30 RDW 14.0 % (11.5-14.5) 02/10/18 05:30 Plt Count 116 K/uL (130-400) L D 02/10/18 05:30 MPV 10.9 fl (7.2-11.7) 02/07/18 07:55 Neut % (Auto) 73.5 % (50.0-75.0) 02/07/18 07:55 Lymph % (Auto) 14.6 % (20.0-40.0) L 02/07/18 07:55 Lee % (Auto) 7.9 % (0.0-10.0) 02/07/18 07:55 Eos % (Auto) 2.6 % (0.0-4.0) 02/07/18 07:55 Baso % (Auto) 1.4 % (0.0-2.0) 02/07/18 07:55 Neut # (Auto) 7.5 K/uL (1.8-7.0) H 02/07/18 07:55 Lymph # (Auto) 1.5 K/uL (1.0-4.3) 02/07/18 07:55 Lee # (Auto) 0.8 K/uL (0.0-0.8) 02/07/18 07:55 Eos # (Auto) 0.3 K/uL (0.0-0.7) 02/07/18 07:55 Baso # (Auto) 0.1 K/uL (0.0-0.2) 02/07/18 07:55 PT 9.7 Seconds (9.8-13.1) L 02/07/18 07:55 INR 0.9 (0.9-1.2) 02/07/18 07:55 APTT 20.6 Seconds (25.6-37.1) L 02/07/18 07:55 pCO2 53 mm/Hg (35-45) H 02/07/18 07:54 pO2 43 mm/Hg (80-100) L* 02/07/18 07:54 HCO3 22.1 mmol/L (21-28) 02/07/18 07:54 ABG pH 7.27 (7.35-7.45) L 02/07/18 07:54 ABG Total CO2 25.9 mmol/L (22-28) 02/07/18 07:54 ABG O2 Saturation 77.9 % (95-98) L 02/07/18 07:54 ABG O2 Content 11.2 ML/dL (15-23) L 02/07/18 07:54 ABG Base Excess -3.0 mmol/L (-2.0-3.0) L 02/07/18 07:54 ABG Hemoglobin 10.8 g/dL (11.7-17.4) L 02/07/18 07:54 ABG Carboxyhemoglobin 2.2 % (0.5-1.5) H 02/07/18 07:54 POC ABG HHb (Measured) 20.9 % (0.0-5.0) H 02/07/18 07:54 ABG Methemoglobin 3.4 % (0.0-3.0) H 02/07/18 07:54 ABG O2 Capacity 14.4 mL/dL (16-24) L 02/07/18 07:54 Nacho Test Yes 02/07/18 07:54 A-a O2 Difference 604.0 mm/Hg 02/07/18 07:54 Hgb O2 Saturation 73.5 % (95.0-98.0) L 02/07/18 07:54 Mechanical Rate 16 02/07/18 07:54 FiO2 100.0 % 02/07/18 07:54 Inspiratory BiPAP 15 02/07/18 07:54 Expiratory BiPAP 10 02/07/18 07:54 Crit Value Called To Dr hodges 02/07/18 07:54 Crit Value Called By 15 02/07/18 07:54 Crit Value Read Back Y 02/07/18 07:54 Blood Gas Notified Time 827 02/07/18 07:54 Sodium 127 mmol/l (132-148) L 02/10/18 05:30 Potassium 4.3 MMOL/L (3.6-5.0) 02/10/18 05:30 Chloride 90 mmol/L (98-107) L 02/10/18 05:30 Carbon Dioxide 28 mmol/L (22-30) 02/10/18 05:30 Anion Gap 13 (10-20) 02/10/18 05:30 BUN 34 mg/dl (7-17) H 02/10/18 05:30 Creatinine 4.0 mg/dl (0.7-1.2) H 02/10/18 05:30 Est GFR ( Amer) 13 02/10/18 05:30 Est GFR (Non-Af Amer) 11 02/10/18 05:30 POC Glucose (mg/dL) 126 mg/dL (65-110) H 02/12/18 11:21 Random Glucose 99 mg/dL (65-105) 02/10/18 05:30 Calcium 8.7 mg/dL (8.4-10.2) 02/10/18 05:30 Magnesium 2.0 MG/DL (1.6-2.3) 02/07/18 07:55 Total Bilirubin 0.7 mg/dl (0.2-1.3) 02/10/18 05:30 AST 22 U/L (14-36) 02/10/18 05:30 ALT 25 U/L (9-52) 02/10/18 05:30 Alkaline Phosphatase 60 U/L (38-126) 02/10/18 05:30 Troponin I 0.0390 ng/mL (0.00-0.120) 02/07/18 15:40 NT-Pro-B Natriuret Pep 66915 pg/ml (0-900) H 02/07/18 07:55 Total Protein 5.7 G/DL (6.3-8.2) L 02/10/18 05:30 Albumin 3.4 g/dL (3.5-5.0) L D 02/10/18 05:30 Globulin 2.4 gm/dL (2.2-3.9) 02/10/18 05:30 Albumin/Globulin Ratio 1.4 (1.0-2.1) 02/10/18 05:30 - Hospital Course Hospital Course: 77 YO female with PMHx of HTN, Alzheimers, ESRD on HD, anemia, anxiety and hypercholesterolemia is admitted for acute CHF, Hyperkalemia. Nephrology was consulted, pt underwent stat hemodialysis. Family meeting was held, pt poor compliance with dialysis, recommended to be d/c to [facility]. Pt is hemodynamically stable at this time, good PO intake. Will d/c patient home to [facility]. Discharge Exam - Head Exam Head Exam: ATRAUMATIC - Eye Exam Eye Exam: EOMI - ENT Exam ENT Exam: Mucous Membranes Moist - Respiratory Exam Respiratory Exam: Clear to PA & Lateral, NORMAL BREATHING PATTERN - Cardiovascular Exam Cardiovascular Exam: +S1, +S2, Systolic Murmur - GI/Abdominal Exam GI & Abdominal Exam: Normal Bowel Sounds, Soft. absent: Tenderness - Extremities Exam Extremities exam: normal inspection Additional comments: AV fistula L arm, palpable thrill - Neurological Exam Neurological exam: Alert Discharge Plan - Follow Up Plan Condition: GUARDED Disposition: HOME/ ROUTINE
--- NOTE | 2018-02-12 15:56 | CP.PCM.PN ---
Subjective - Date & Time of Evaluation Date of Evaluation: 02/12/18 Time of Evaluation: 10:10 - Subjective Subjective: No acute overnight events. Pt seen and examined this AM. Sates that she is feeling fine now and would like to go home. Denies chest pain, headache, dyspnea, n/v/d/c. Objective - Vital Signs/Intake and Output Vital Signs (last 24 hours): Temp Pulse Resp BP Pulse Ox 98.2 F 68 20 183/69 H 98 02/12/18 15:44 02/12/18 15:44 02/12/18 15:44 02/12/18 15:44 02/12/18 15:44 - Medications Medications: Current Medications Acetaminophen (Tylenol 325mg Tab) 650 mg PO Q6 PRN PRN Reason: Pain, moderate (4-7) Last Admin: 02/12/18 09:04 Dose: 650 mg Alprazolam (Xanax) 0.25 mg PO Q12 PRN PRN Reason: Anxiety Stop: 02/19/18 15:09 Atorvastatin Calcium (Lipitor) 20 mg PO DAILY [facility] Last Admin: 02/11/18 09:16 Dose: 20 mg Clonidine HCl (Catapres) 0.1 mg PO Q8 [facility] Last Admin: 02/12/18 14:53 Dose: Not Given Epoetin Seth (Procrit) 4,000 unit IV MWF [facility] Last Admin: 02/11/18 15:44 Dose: Not Given Furosemide (Lasix) 40 mg IVP DAILY [facility] Last Admin: 02/11/18 09:16 Dose: Not Given Labetalol HCl (Trandate) 200 mg PO BID [facility] Last Admin: 02/12/18 14:54 Dose: Not Given Lidocaine/Prilocaine (Lidocaine/Prilocaine 2.5%-2.5%) 1 applic TP ONCE PRN PRN Reason: pain Last Admin: 02/12/18 09:04 Dose: 1 applic Vitamin B Complex/Vit C/Folic Acid (Nephro-Valentino) 1 tab PO DAILY [facility] Last Admin: 02/11/18 09:16 Dose: 1 tab - Labs Labs: 02/10/18 05:30 02/10/18 05:30 PT 9.7 Seconds (9.8-13.1) L 02/07/18 07:55 INR 0.9 (0.9-1.2) 02/07/18 07:55 APTT 20.6 Seconds (25.6-37.1) L 02/07/18 07:55 - Constitutional Appears: No Acute Distress, Other - Head Exam Head Exam: NORMAL INSPECTION - Eye Exam Eye Exam: Normal appearance - Respiratory Exam Respiratory Exam: Clear to Ausculation Bilateral. absent: Wheezes - Cardiovascular Exam Cardiovascular Exam: REGULAR RHYTHM, +S1, +S2 - GI/Abdominal Exam GI & Abdominal Exam: Soft, Normal Bowel Sounds. absent: Tenderness - Extremities Exam Extremities Exam: Normal Inspection Additional comments: AV fistula L arm - Neurological Exam Neurological Exam: Alert, Awake - Psychiatric Exam Psychiatric exam: Normal Mood Assessment and Plan (1) Missed dialysis Status: Acute (2) CHF (congestive heart failure) Status: Chronic (3) Dementia Status: Chronic (4) ESRD (end stage renal disease) on dialysis Status: Chronic (5) Hyperkalemia Status: Resolved (6) Hypertension Status: Chronic - Assessment and Plan (Free Text) Assessment: Assessment/Plan: 77 YO female with PMHx of HTN, Alzheimers, ESRD on HD, anemia, anxiety and hypercholesterolemia is admitted for acute CHF, Hyperkalemia. -VS remains stable; bp labile -blood work reviewed, improving. -nephrology consulted for HD -Cardiology on board -pending placement to [facility] -plan as ordered Pt seen and examined with Dr. Del Rio
[2018-02-12] MEDS: Multivitamin Vitamin B Complex (Nephro-Vite) Tab PO SCH (16:21)
--- NOTE | 2018-02-12 23:58 | CP.PCM.PN ---
Subjective - Date & Time of Evaluation Date of Evaluation: 02/11/18 Time of Evaluation: 17:00 Objective - Vital Signs/Intake and Output Vital Signs (last 24 hours): Temp Pulse Resp BP Pulse Ox 97.7 F 70 20 169/60 H 99 02/12/18 19:43 02/12/18 19:43 02/12/18 19:43 02/12/18 19:43 02/12/18 19:43 - Medications Medications: Current Medications Acetaminophen (Tylenol 325mg Tab) 650 mg PO Q6 PRN PRN Reason: Pain, moderate (4-7) Last Admin: 02/12/18 09:04 Dose: 650 mg Alprazolam (Xanax) 0.25 mg PO Q12 PRN PRN Reason: Anxiety Stop: 02/19/18 15:09 Last Admin: 02/12/18 16:23 Dose: 0.25 mg Atorvastatin Calcium (Lipitor) 20 mg PO DAILY [facility] Last Admin: 02/12/18 16:21 Dose: 20 mg Clonidine HCl (Catapres) 0.1 mg PO Q8 [facility] Last Admin: 02/12/18 16:23 Dose: 0.1 mg Epoetin Seth (Procrit) 4,000 unit IV MWF [facility] Last Admin: 02/11/18 15:44 Dose: Not Given Furosemide (Lasix) 40 mg IVP DAILY [facility] Last Admin: 02/11/18 09:16 Dose: Not Given Labetalol HCl (Trandate) 200 mg PO BID [facility] Last Admin: 02/12/18 16:21 Dose: 200 mg Lidocaine/Prilocaine (Lidocaine/Prilocaine 2.5%-2.5%) 1 applic TP ONCE PRN PRN Reason: pain Last Admin: 02/12/18 09:04 Dose: 1 applic Vitamin B Complex/Vit C/Folic Acid (Nephro-Valentino) 1 tab PO DAILY [facility] Last Admin: 02/12/18 16:21 Dose: 1 tab - Labs Labs: 02/10/18 05:30 02/10/18 05:30 PT 9.7 Seconds (9.8-13.1) L 02/07/18 07:55 INR 0.9 (0.9-1.2) 02/07/18 07:55 APTT 20.6 Seconds (25.6-37.1) L 02/07/18 07:55 Assessment and Plan (1) CKD (chronic kidney disease) requiring chronic dialysis Status: Acute (2) Missed dialysis Status: Acute (3) Pulmonary edema Status: Acute (4) Volume overload Status: Acute (5) Hypertension Status: Chronic (6) Accelerated hypertension Status: Acute
--- NOTE | 2018-02-12 23:58 | CP.PCM.PN ---
Subjective - Date & Time of Evaluation Date of Evaluation: 02/12/18 Time of Evaluation: 23:00 Objective - Vital Signs/Intake and Output Vital Signs (last 24 hours): Temp Pulse Resp BP Pulse Ox 97.7 F 70 20 169/60 H 99 02/12/18 19:43 02/12/18 19:43 02/12/18 19:43 02/12/18 19:43 02/12/18 19:43 - Medications Medications: Current Medications Acetaminophen (Tylenol 325mg Tab) 650 mg PO Q6 PRN PRN Reason: Pain, moderate (4-7) Last Admin: 02/12/18 09:04 Dose: 650 mg Alprazolam (Xanax) 0.25 mg PO Q12 PRN PRN Reason: Anxiety Stop: 02/19/18 15:09 Last Admin: 02/12/18 16:23 Dose: 0.25 mg Atorvastatin Calcium (Lipitor) 20 mg PO DAILY [facility] Last Admin: 02/12/18 16:21 Dose: 20 mg Clonidine HCl (Catapres) 0.1 mg PO Q8 [facility] Last Admin: 02/12/18 16:23 Dose: 0.1 mg Epoetin Seth (Procrit) 4,000 unit IV MWF [facility] Last Admin: 02/11/18 15:44 Dose: Not Given Furosemide (Lasix) 40 mg IVP DAILY [facility] Last Admin: 02/11/18 09:16 Dose: Not Given Labetalol HCl (Trandate) 200 mg PO BID [facility] Last Admin: 02/12/18 16:21 Dose: 200 mg Lidocaine/Prilocaine (Lidocaine/Prilocaine 2.5%-2.5%) 1 applic TP ONCE PRN PRN Reason: pain Last Admin: 02/12/18 09:04 Dose: 1 applic Vitamin B Complex/Vit C/Folic Acid (Nephro-Valentino) 1 tab PO DAILY [facility] Last Admin: 02/12/18 16:21 Dose: 1 tab - Labs Labs: 02/10/18 05:30 02/10/18 05:30 PT 9.7 Seconds (9.8-13.1) L 02/07/18 07:55 INR 0.9 (0.9-1.2) 02/07/18 07:55 APTT 20.6 Seconds (25.6-37.1) L 02/07/18 07:55 Assessment and Plan (1) CKD (chronic kidney disease) requiring chronic dialysis Status: Acute (2) Missed dialysis Status: Acute (3) Pulmonary edema Status: Acute (4) Volume overload Status: Acute (5) Hypertension Status: Chronic (6) Accelerated hypertension Status: Acute
[2018-02-13 10:17] LABS: HEMOGLOBIN 8.9 g/dL (12.0-16.0); MEAN CELL VOLUME 86.2 fl (81.0-99.0); MEAN CORPUSCULAR HEMOGLOBIN 29.9 pg (27.0-31.0); MEAN CORPUSCULAR HGB CONC 34.7 g/dL (33.0-37.0); RBC 2.98 Mil/uL (3.80-5.20); WHITE BLOOD COUNT 4.3 K/uL (4.8-10.8)
[2018-02-13 10:40] LABS: CALCIUM 8.6 mg/dL (8.4-10.2)
[2018-02-13] MEDS: Multivitamin Vitamin B Complex (Nephro-Vite) Tab PO SCH (11:16)
[2018-02-13] MEDS: Epoetin Alfa 4000 UNIT/ML Inj IV SCH (11:16)
--- NOTE | 2018-02-13 12:56 | CP.PCM.PN ---
Subjective - Date & Time of Evaluation Date of Evaluation: 02/13/18 Time of Evaluation: 11:00 - Subjective Subjective: dialysis note she was seen on hemodialysis. Daughter at the bedside. Patient awake and conscious Nausea no vomiting Objective - Vital Signs/Intake and Output Vital Signs (last 24 hours): Temp Pulse Resp BP Pulse Ox 98.3 F 67 20 180/75 H 96 02/13/18 08:00 02/13/18 08:00 02/13/18 08:00 02/13/18 08:00 02/13/18 08:00 - Medications Medications: Current Medications Acetaminophen (Tylenol 325mg Tab) 650 mg PO Q6 PRN PRN Reason: Pain, moderate (4-7) Last Admin: 02/12/18 09:04 Dose: 650 mg Alprazolam (Xanax) 0.25 mg PO Q12 PRN PRN Reason: Anxiety Stop: 02/19/18 15:09 Last Admin: 02/12/18 16:23 Dose: 0.25 mg Atorvastatin Calcium (Lipitor) 20 mg PO DAILY [facility] Last Admin: 02/12/18 16:21 Dose: 20 mg Clonidine HCl (Catapres) 0.1 mg PO Q8 [facility] Last Admin: 02/13/18 10:08 Dose: Not Given Epoetin Seth (Procrit) 4,000 unit IV MWF [facility] Last Admin: 02/13/18 11:16 Dose: 4,000 unit Furosemide (Lasix) 40 mg IVP DAILY [facility] Last Admin: 02/11/18 09:16 Dose: Not Given Labetalol HCl (Trandate) 200 mg PO BID [facility] Last Admin: 02/13/18 10:08 Dose: Not Given Lidocaine/Prilocaine (Lidocaine/Prilocaine 2.5%-2.5%) 1 applic TP ONCE PRN PRN Reason: pain Last Admin: 02/12/18 09:04 Dose: 1 applic Vitamin B Complex/Vit C/Folic Acid (Nephro-Valentino) 1 tab PO DAILY [facility] Last Admin: 02/13/18 11:16 Dose: 1 tab - Labs Labs: 02/13/18 09:40 02/13/18 09:40 PT 9.7 Seconds (9.8-13.1) L 02/07/18 07:55 INR 0.9 (0.9-1.2) 02/07/18 07:55 APTT 20.6 Seconds (25.6-37.1) L 02/07/18 07:55 - Constitutional Appears: No Acute Distress - ENT Exam ENT Exam: Mucous Membranes Moist - Neck Exam Neck Exam: absent: Lymphadenopathy - Respiratory Exam Respiratory Exam: absent: Chest Wall Tenderness - GI/Abdominal Exam GI & Abdominal Exam: Soft, Normal Bowel Sounds - Extremities Exam Extremities Exam: Calf Tenderness - Back Exam Back Exam: CVA tenderness (L), CVA tenderness (R) - Neurological Exam Neurological Exam: Alert - Psychiatric Exam Psychiatric exam: Normal Affect - Skin Skin Exam: absent: Cyanosis Assessment and Plan (1) CKD (chronic kidney disease) requiring chronic dialysis Assessment & Plan: end stage renal disease She receiving dialysis with ultrafiltration about 1500 mL to be removed Palafox is tolerating well hemodialysis. Hyponatremia predialysis most likely dilutional expected to improve and corrected post dialysis Patient may be going to subacute nursing go home Discussed with the family the daughter at the bedside Status: Acute (2) Accelerated hypertension Status: Acute (3) Anemia Status: Acute
--- NOTE | 2018-02-13 13:54 | CP.PCM.PN ---
Subjective - Date & Time of Evaluation Date of Evaluation: 02/13/18 Time of Evaluation: 13:53 - Subjective Subjective: s/p HD Objective - Vital Signs/Intake and Output Vital Signs (last 24 hours): Temp Pulse Resp BP Pulse Ox 97.9 F 69 20 180/61 H 98 02/13/18 12:00 02/13/18 12:00 02/13/18 12:00 02/13/18 12:00 02/13/18 12:00 - Medications Medications: Current Medications Acetaminophen (Tylenol 325mg Tab) 650 mg PO Q6 PRN PRN Reason: Pain, moderate (4-7) Last Admin: 02/12/18 09:04 Dose: 650 mg Alprazolam (Xanax) 0.25 mg PO Q12 PRN PRN Reason: Anxiety Stop: 02/19/18 15:09 Last Admin: 02/12/18 16:23 Dose: 0.25 mg Atorvastatin Calcium (Lipitor) 20 mg PO DAILY [facility] Last Admin: 02/12/18 16:21 Dose: 20 mg Clonidine HCl (Catapres) 0.1 mg PO Q8 [facility] Last Admin: 02/13/18 10:08 Dose: Not Given Epoetin Seth (Procrit) 4,000 unit IV MWF [facility] Last Admin: 02/13/18 11:16 Dose: 4,000 unit Furosemide (Lasix) 40 mg IVP DAILY [facility] Last Admin: 02/11/18 09:16 Dose: Not Given Labetalol HCl (Trandate) 200 mg PO BID [facility] Last Admin: 02/13/18 10:08 Dose: Not Given Lidocaine/Prilocaine (Lidocaine/Prilocaine 2.5%-2.5%) 1 applic TP ONCE PRN PRN Reason: pain Last Admin: 02/12/18 09:04 Dose: 1 applic Vitamin B Complex/Vit C/Folic Acid (Nephro-Valentino) 1 tab PO DAILY [facility] Last Admin: 02/13/18 11:16 Dose: 1 tab - Labs Labs: 02/13/18 09:40 02/13/18 09:40 PT 9.7 Seconds (9.8-13.1) L 02/07/18 07:55 INR 0.9 (0.9-1.2) 02/07/18 07:55 APTT 20.6 Seconds (25.6-37.1) L 02/07/18 07:55 - Constitutional Appears: Well - Head Exam Head Exam: ATRAUMATIC, NORMAL INSPECTION, NORMOCEPHALIC - Eye Exam Eye Exam: EOMI, Normal appearance, PERRL Pupil Exam: NORMAL ACCOMODATION, PERRL - ENT Exam ENT Exam: Mucous Membranes Moist, Normal Exam - Neck Exam Neck Exam: Full ROM, Normal Inspection. absent: Lymphadenopathy - Respiratory Exam Respiratory Exam: Clear to Ausculation Bilateral, NORMAL BREATHING PATTERN - Cardiovascular Exam Cardiovascular Exam: REGULAR RHYTHM, +S1, +S2. absent: Murmur - GI/Abdominal Exam GI & Abdominal Exam: Soft, Normal Bowel Sounds. absent: Tenderness - Extremities Exam Extremities Exam: Full ROM, Normal Capillary Refill, Normal Inspection. absent : Joint Swelling, Pedal Edema - Back Exam Back Exam: NORMAL INSPECTION - Neurological Exam Neurological Exam: Alert, Awake, CN II-XII Intact, Normal Gait, Oriented x3 - Psychiatric Exam Psychiatric exam: Normal Affect, Normal Mood - Skin Skin Exam: Dry, Intact, Normal Color, Warm Assessment and Plan (1) CKD (chronic kidney disease) requiring chronic dialysis Status: Acute (2) Missed dialysis Status: Acute (3) Pulmonary edema Status: Acute (4) Volume overload Status: Acute (5) Hypertension Status: Chronic (6) Accelerated hypertension Status: Acute
[2018-02-13 15:57] VITALS: BP 157/61; PULSE 77; RESP 18; TEMP 99.3; O2SAT 97
--- NOTE | 2018-02-13 16:41 | CP.PCM.DIS ---
Provider - Provider Date of Admission: 02/07/18 09:36 Attending physician: Juan Carlos Del Rio MD Primary care physician: Genaro Martínez Consults: Nephrology Cardiology Time Spent in preparation of Discharge (in minutes): 30 Diagnosis - Discharge Diagnosis (1) ESRD (end stage renal disease) on dialysis Status: Chronic Priority: High (2) Pulmonary edema Status: Acute (3) Anxiety Status: Acute (4) Hyperlipidemia Status: Acute (5) CHF (congestive heart failure) Status: Chronic Hospital Course - Lab Results Lab Results: Most Recent Lab Values WBC 4.3 K/uL (4.8-10.8) L 02/13/18 09:40 RBC 2.98 Mil/uL (3.80-5.20) L 02/13/18 09:40 Hgb 8.9 g/dL (12.0-16.0) L 02/13/18 09:40 Hct 25.7 % (34.0-47.0) L 02/13/18 09:40 MCV 86.2 fl (81.0-99.0) 02/13/18 09:40 MCH 29.9 pg (27.0-31.0) 02/13/18 09:40 MCHC 34.7 g/dL (33.0-37.0) 02/13/18 09:40 RDW 14.0 % (11.5-14.5) 02/13/18 09:40 Plt Count 97 K/uL (130-400) L 02/13/18 09:40 MPV 10.9 fl (7.2-11.7) 02/07/18 07:55 Neut % (Auto) 73.5 % (50.0-75.0) 02/07/18 07:55 Lymph % (Auto) 14.6 % (20.0-40.0) L 02/07/18 07:55 [place] % (Auto) 7.9 % (0.0-10.0) 02/07/18 07:55 Eos % (Auto) 2.6 % (0.0-4.0) 02/07/18 07:55 Baso % (Auto) 1.4 % (0.0-2.0) 02/07/18 07:55 Neut # (Auto) 7.5 K/uL (1.8-7.0) H 02/07/18 07:55 Lymph # (Auto) 1.5 K/uL (1.0-4.3) 02/07/18 07:55 [place] # (Auto) 0.8 K/uL (0.0-0.8) 02/07/18 07:55 Eos # (Auto) 0.3 K/uL (0.0-0.7) 02/07/18 07:55 Baso # (Auto) 0.1 K/uL (0.0-0.2) 02/07/18 07:55 PT 9.7 Seconds (9.8-13.1) L 02/07/18 07:55 INR 0.9 (0.9-1.2) 02/07/18 07:55 APTT 20.6 Seconds (25.6-37.1) L 02/07/18 07:55 pCO2 53 mm/Hg (35-45) H 02/07/18 07:54 pO2 43 mm/Hg (80-100) L* 02/07/18 07:54 HCO3 22.1 mmol/L (21-28) 02/07/18 07:54 ABG pH 7.27 (7.35-7.45) L 02/07/18 07:54 ABG Total CO2 25.9 mmol/L (22-28) 02/07/18 07:54 ABG O2 Saturation 77.9 % (95-98) L 02/07/18 07:54 ABG O2 Content 11.2 ML/dL (15-23) L 02/07/18 07:54 ABG Base Excess -3.0 mmol/L (-2.0-3.0) L 02/07/18 07:54 ABG Hemoglobin 10.8 g/dL (11.7-17.4) L 02/07/18 07:54 ABG Carboxyhemoglobin 2.2 % (0.5-1.5) H 02/07/18 07:54 POC ABG HHb (Measured) 20.9 % (0.0-5.0) H 02/07/18 07:54 ABG Methemoglobin 3.4 % (0.0-3.0) H 02/07/18 07:54 ABG O2 Capacity 14.4 mL/dL (16-24) L 02/07/18 07:54 Nacho Test Yes 02/07/18 07:54 A-a O2 Difference 604.0 mm/Hg 02/07/18 07:54 Hgb O2 Saturation 73.5 % (95.0-98.0) L 02/07/18 07:54 Mechanical Rate 16 02/07/18 07:54 FiO2 100.0 % 02/07/18 07:54 Inspiratory BiPAP 15 02/07/18 07:54 Expiratory BiPAP 10 02/07/18 07:54 Crit Value Called To Dr hodges 02/07/18 07:54 Crit Value Called By 15 02/07/18 07:54 Crit Value Read Back Y 02/07/18 07:54 Blood Gas Notified Time 827 02/07/18 07:54 Sodium 133 mmol/l (132-148) 02/13/18 09:40 Potassium 4.2 MMOL/L (3.6-5.0) 02/13/18 09:40 Chloride 95 mmol/L (98-107) L 02/13/18 09:40 Carbon Dioxide 23 mmol/L (22-30) 02/13/18 09:40 Anion Gap 19 (10-20) 02/13/18 09:40 BUN 32 mg/dl (7-17) H 02/13/18 09:40 Creatinine 3.1 mg/dl (0.7-1.2) H 02/13/18 09:40 Est GFR ( Amer) 18 02/13/18 09:40 Est GFR (Non-Af Amer) 14 02/13/18 09:40 POC Glucose (mg/dL) 90 mg/dL (65-110) 02/13/18 11:43 Random Glucose 139 mg/dL (65-105) H 02/13/18 09:40 Calcium 8.6 mg/dL (8.4-10.2) 02/13/18 09:40 Magnesium 2.0 MG/DL (1.6-2.3) 02/07/18 07:55 Total Bilirubin 0.7 mg/dl (0.2-1.3) 02/10/18 05:30 AST 22 U/L (14-36) 02/10/18 05:30 ALT 25 U/L (9-52) 02/10/18 05:30 Alkaline Phosphatase 60 U/L (38-126) 02/10/18 05:30 Troponin I 0.0390 ng/mL (0.00-0.120) 02/07/18 15:40 NT-Pro-B Natriuret Pep 80119 pg/ml (0-900) H 02/13/18 14:01 Total Protein 5.7 G/DL (6.3-8.2) L 02/10/18 05:30 Albumin 3.4 g/dL (3.5-5.0) L D 02/10/18 05:30 Globulin 2.4 gm/dL (2.2-3.9) 02/10/18 05:30 Albumin/Globulin Ratio 1.4 (1.0-2.1) 02/10/18 05:30 - Hospital Course Hospital Course: 68 yo F pmhx of alzheimers, ESRD on HD, anemia, anxiety and hypercholesterolemia who was admitted for acute CHF, volume overload, and hyperkalemia due to missed dialysis. She received dialysis and symptoms improved. Nephrology and cardiology saw pt as well. Pt was supposed to be discharged to subacute rehab at [facility]; original d/ c order placed for transfer to rehab facility; pt and family were agreeable but when transport arrived pt was adamantly refusing to go. Resident, nursing staff , attenting, pts family tried to encourage patient to go to subacute rehab but to no avail. Pt to be d/c home. Alert, oriented, stable condition. Encouraged to f/u with PMD and dialysis appointments. Discharge Exam - Head Exam Head Exam: ATRAUMATIC, NORMAL INSPECTION, NORMOCEPHALIC - Eye Exam Eye Exam: Normal appearance - ENT Exam ENT Exam: Mucous Membranes Moist - Respiratory Exam Respiratory Exam: NORMAL BREATHING PATTERN, UNREMARKABLE - Cardiovascular Exam Cardiovascular Exam: REGULAR RHYTHM - GI/Abdominal Exam GI & Abdominal Exam: Normal Bowel Sounds, Soft - Extremities Exam Extremities exam: normal inspection - Neurological Exam Neurological exam: Alert - Psychiatric Exam Psychiatric exam: Agitated - Skin Skin Exam: Normal Color, Warm Discharge Plan - Follow Up Plan Condition: GUARDED Disposition: HOME/ ROUTINE Instructions: Hemodialysis (DC), Chronic Kidney Disease (DC) Additional Instructions: follow up with 02/20/18 at 2:00pm Referrals: Fredis Benedict MD [Staff Provider] - Juan Carlos Del Rio MD [Staff Provider] -
--- NOTE | 2018-02-19 22:28 | CP.PCM.PN ---
Subjective - Date & Time of Evaluation Date of Evaluation: 02/11/18 Time of Evaluation: 10:15 - Subjective Subjective: Patient remains stable On HD still not completely decided whether to go to subacute rehab or not Has no fever Has mild SOB. Objective - Vital Signs/Intake and Output Vital Signs (last 24 hours): Temp Pulse Resp BP Pulse Ox 99.3 F 77 18 157/61 H 97 02/13/18 15:57 02/13/18 15:57 02/13/18 15:57 02/13/18 15:57 02/13/18 15:57 - Labs Labs: 02/13/18 09:40 02/13/18 09:40 PT 9.7 Seconds (9.8-13.1) L 02/07/18 07:55 INR 0.9 (0.9-1.2) 02/07/18 07:55 APTT 20.6 Seconds (25.6-37.1) L 02/07/18 07:55 - Head Exam Head Exam: NORMAL INSPECTION - Eye Exam Eye Exam: Normal appearance - ENT Exam ENT Exam: Mucous Membranes Moist - Respiratory Exam Respiratory Exam: Clear to Ausculation Bilateral - Cardiovascular Exam Cardiovascular Exam: REGULAR RHYTHM - GI/Abdominal Exam GI & Abdominal Exam: Normal Bowel Sounds - Neurological Exam Neurological Exam: Alert, CN II-XII Intact, Oriented x3 - Psychiatric Exam Psychiatric exam: Anxious Assessment and Plan (1) CHF exacerbation Status: Acute (2) Acute pulmonary edema Status: Acute (3) CKD (chronic kidney disease) requiring chronic dialysis Status: Acute - Assessment and Plan (Free Text) Plan: Con tHD Monitor lytes cbc discussed with family and patient re benefits of going to subacute rehab with dialysis
--- NOTE | 2018-02-21 13:26 | PQF ---
PROVIDER RESPONSE TEXT: Acute on Chronic CHF, Diastolic probable 2nd ESRD REVIEWER QUERY TEXT: CHF Acuity and Type Congestive Heart Failure is documented in the Medical Record. Please document the type and acuity (in cludes probable or suspected) Such as: Type: -- Systolic -- Diastolic -- Combined -- Other, please specify Acuity: -- Acute -- Chronic -- Acute on chronic -- Other, please specify Also please document the underlying cause of the CHF (includes probable or suspected) The patient's Clinical Indicators include: BNP 46,600 Query created by: Marcy Bro on 02/14/2018 9:31 AM Electronically signed by: Juan Carlos Del Rio MD 02/21/2018 1:22 PM
--- NOTE | 2018-03-05 12:46 | PQF ---
PROVIDER RESPONSE TEXT: Anemia due to chronic ckd REVIEWER QUERY TEXT: Anemia Type Anemia is documented in the Medical Record. Please specify the cause (includes suspected or probable cause) Such as: -- Due to acute blood loss -- Due to chronic blood loss -- Due to iron deficiency -- Due to postoperative blood loss -- Due to chronic disease -- Other, please specify The patient's Clinical Indicators include: anemia Query created by: Marcy Bro on 03/04/2018 3:27 PM Electronically signed by: Juan Carlos Del Rio MD 03/05/2018 12:43 PM
== END 2018-02-13 17:09 | disposition home or self-care (01) | DRG 291 ==
LOC: H.ER 07:16 → H.ERHOLD 09:36 → H.TEL 11:13
PROVIDERS: ADMIT Family Medicine; ATTEND Family Medicine
PROC: 5A1D70Z Performance of Urinary Filtration, Intermittent, Less than 6 Hours Per Day (ICD-10-PCS; principal; 2018-02-07)
PROC: 5A0945Z Assistance with Respiratory Ventilation, 24-96 Consecutive Hours (ICD-10-PCS; 2018-02-07)
DX: I13.2 Hypertensive heart and chronic kidney disease with heart failure and with stage 5 chronic kidney disease, or end stage renal disease (principal); N18.6 End stage renal disease; I50.33 Acute on chronic diastolic (congestive) heart failure; N25.81 Secondary hyperparathyroidism of renal origin; E87.1 Hypo-osmolality and hyponatremia; E87.5 Hyperkalemia; G30.9 Alzheimer's disease, unspecified; F02.80 Dementia in other diseases classified elsewhere, unspecified severity, without behavioral disturbance, psychotic disturbance, mood disturbance, and anxiety; Z91.15 Patient's noncompliance with renal dialysis; Z99.2 Dependence on renal dialysis; F41.9 Anxiety disorder, unspecified; I35.0 Nonrheumatic aortic (valve) stenosis; E83.39 Other disorders of phosphorus metabolism; E78.00 Pure hypercholesterolemia, unspecified; E78.5 Hyperlipidemia, unspecified; D63.1 Anemia in chronic kidney disease

== ENCOUNTER 2018-02-19 07:53 | Inpatient (IN) | payer MEDICARE ==
[2018-02-19 08:02] VITALS: BMI 25.7
[2018-02-19] MEDS ORDERED: Albuterol-Ipratrop 3 mg / 0.5 (3 ml) UD ONE (08:04)
[2018-02-19] MEDS ORDERED: Albuterol-Ipratrop 3 mg / 0.5 (3 ml) UD INH STA (08:04)
[2018-02-19] MEDS ORDERED: Albuterol-Ipratrop 3 mg / 0.5 (3 ml) UD IH STA ×2 (08:04→08:05)
[2018-02-19] MEDS ORDERED: Sodium Chloride 0.9% 500 ML IV STA (08:04)
--- NOTE | 2018-02-19 08:08 | ED PDOC ---
HPI: SOB/CHF/COPD Time Seen by Provider: 02/19/18 08:02 Chief Complaint (Nursing): Shortness Of Breath Chief Complaint (Provider): Dyspnea History Per: Patient, Family History/Exam Limitations: no limitations Onset/Duration Of Symptoms: Days (today) Current Symptoms Are (Timing): Still Present Additional Complaint(s): Pt. with dyspnea today. Missed dialysis, with last one being Tue last week. Had chest yesterday, gone now. No weakness, headaches, dizziness, numbness, tingles, nausea, vomit, diarrhea. Son with pt. and states she frequently misses dialysis and is noncompliant with her treatment plan. Past Medical History Reviewed: Nursing Documentation, Vital Signs Vital Signs: Last Vital Signs Temp 97.5 F L 02/19/18 08:06 Pulse 130 H 02/19/18 08:06 Resp 30 H 02/19/18 08:06 BP 160/80 H 02/19/18 09:15 Pulse Ox 93 L 02/19/18 08:06 - Medical History PMH: Alzheimer's Disease, Anemia, Anxiety, CHF, Dementia, HTN, Hypercholesterolemia, Pneumonia, End Stage Renal Disease, Chronic Kidney Disease Denies: HIV, Kidney Stones, Schizophrenia - Surgical History Surgical History: Appendectomy, Tonsillectomy - Family History Family History: States: Unknown Family Hx, Hypertension - Living Arrangements Living Arrangements: With Family - Immunization History Hx Tetanus Toxoid Vaccination: No Hx Influenza Vaccination: No Hx Pneumococcal Vaccination: No - Home Medications Home Medications: Ambulatory Orders Medication Instructions Recorded Atorvastatin [Lipitor] 20 mg PO DAILY 08/16/16 Labetalol [Trandate] 100 mg PO BID 08/16/16 amLODIPine [Norvasc] 5 mg PO DAILY 08/16/16 Calcium Carbonate [Oscal] 500 mg PO TID 10/16/17 cloNIDine [Catapres] 0.1 mg PO Q8 #30 tab 01/07/18 Alprazolam [Xanax] 0.5 mg PO DAILY PRN 01/24/18 Lisinopril [Zestril] 5 mg PO DAILY 01/24/18 - Allergies Allergies/Adverse Reactions: Allergies Allergy/AdvReac Type Severity Reaction Status Date / Time No Known Allergies Allergy Verified 02/19/18 08:06 Review of Systems ROS Statement: Except As Marked, All Systems Reviewed And Found Negative Cardiovascular: Positive for: Chest Pain, Orthopnea Respiratory: Positive for: Shortness of Breath, SOB with Exertion Physical Exam - Reviewed Nursing Documentation Reviewed: Yes Vital Signs Reviewed: Yes - Physical Exam Appears: Positive for: Uncomfortable Head Exam: Positive for: ATRAUMATIC, NORMAL INSPECTION, NORMOCEPHALIC Skin: Positive for: Normal Color, Warm, DRY Eye Exam: Positive for: EOMI, Normal appearance, PERRL ENT: Positive for: Normal ENT Inspection. Negative for: Nasal Congestion Neck: Positive for: Normal, Painless ROM, Supple Cardiovascular/Chest: Positive for: Regular Rate, Rhythm Respiratory: Positive for: Decreased Breath Sounds (b/l), Wheezing (mild b/l), Other (coarse b/l). Negative for: Accessory Muscle Use Gastrointestinal/Abdominal: Positive for: Normal Exam, Soft. Negative for: Tenderness Back: Positive for: Normal Inspection. Negative for: L CVA Tenderness, R CVA Tenderness Extremity: Positive for: Normal ROM. Negative for: Tenderness, Pedal Edema Neurologic/Psych: Positive for: Alert, Oriented - Laboratory Results Result Diagrams: 02/19/18 08:20 02/19/18 08:20 Interpretation Of Abn Labs: 5.3 k - ECG ECG: Positive for: Interpreted By Me, Viewed By Me ECG Rhythm: Positive for: Sinus Tachycardia, Nonspecific Changes - Radiology X-Ray: Interpreted by Me, Viewed By Me X-Ray Interpretation: Cardiomegaly (and vascular congestion) - Progress ED Course And Treament: 1047: Pt. stable. Doing better. Lung sounds improving. Vitals maintained. Will need dialysis as pt. has missed multiple sessions. 1126: Spoke with Dr. Rosado and Dr. Torres. Will admit ICU. Spoke with Dr. lPaza. Will give dialysis orders when pt. reaches floor. - Critical Care Total Time (In Min): 30 Documented Critical Care: Time excludes all time spent performint seperately billable procedures Disposition - Clinical Impression Clinical Impression: CHF exacerbation, Renal failure (ARF), acute on chronic - Patient ED Disposition Is Patient to be Admitted: Yes Counseled Patient/Family Regarding: Studies Performed, Diagnosis - Disposition Disposition Time: 11:26 Condition: GUARDED
[2018-02-19 08:32] LABS: BASO # 0.1 K/uL (0.0-0.2); BASO % 1.3 % (0.0-2.0); EOS # 0.4 K/uL (0.0-0.7); EOS % 5.7 % (0.0-4.0); HEMOGLOBIN 11.2 g/dL (12.0-16.0); LYMPH # 1.8 K/uL (1.0-4.3); MEAN CELL VOLUME 88.6 fl (81.0-99.0); MEAN CORPUSCULAR HEMOGLOBIN 29.8 pg (27.0-31.0); MEAN CORPUSCULAR HGB CONC 33.7 g/dL (33.0-37.0); MEAN PLATELET VOLUME 10.5 fl (7.2-11.7); MONO # 1.1 K/uL (0.0-0.8); MONO % 14.6 % (0.0-10.0); NEUT # 4.3 K/uL (1.8-7.0); NEUT % 55.4 % (50.0-75.0); NRBC % 0.1 % (0.0-0.0); RBC 3.75 Mil/uL (3.80-5.20); RED CELL DISTRIBUTION WIDTH 14.6 % (11.5-14.5); WHITE BLOOD COUNT 7.7 K/uL (4.8-10.8)
[2018-02-19 08:38] LABS: ABG ALLEN TEST YES; ARTERIAL BLOOD GAS HCO3 20.9 mmol/L (21-28); ARTERIAL BLOOD GAS O2 SAT 98.3 % (95-98); ARTERIAL BLOOD GAS PCO2 78 mm/Hg (35-45); ARTERIAL BLOOD GAS PH 7.13 (7.35-7.45); ARTERIAL BLOOD GAS PO2 86 mm/Hg (80-100); ARTERIAL BLOOD GAS TCO2 28.3 mmol/L (22-28)
[2018-02-19 08:38] LABS: PROTHROMBIN TIME 10.6 Seconds (9.8-13.1)
[2018-02-19 08:41] LABS: PARTIAL THROMBOPLASTIN TIME 25.4 Seconds (25.6-37.1)
--- NOTE | 2018-02-19 09:07 | CARD ---
APPROVED REPORT Date of service: 02/19/2018 EKG Measurement Heart [id number] <Conclusion> Sinus tachycardia poor R wave progression NT wave abnormality Abnormal ECG
[2018-02-19 09:13] LABS: ALB/GLOB RATIO 1.8 (1.0-2.1); ALBUMIN 4.8 g/dL (3.5-5.0); CALCIUM 9.9 mg/dL (8.4-10.2)
[2018-02-19] MEDS ORDERED: Nitroglycerin 2% Ointment Foilpak UD TOP STA (09:13)
[2018-02-19 09:14] LABS: TROPONIN I 0.025 ng/mL (0.00-0.120)
[2018-02-19] MEDS ORDERED: Nitroglycerin 2% Ointment Foilpak UD TOP ONE (09:15)
--- NOTE | 2018-02-19 10:26 | RAD ---
Date of service: 02/19/2018 HISTORY: Sepsis Patient COMPARISON: 02/07/2018. FINDINGS: LUNGS: The lungs are hyperinflated. There are increased interstitial markings, worse in the left lung. PLEURA: No significant pleural effusion identified, no pneumothorax apparent. CARDIOVASCULAR: This persistent moderate cardiomegaly. OSSEOUS STRUCTURES: No significant abnormalities. VISUALIZED UPPER ABDOMEN: Normal. OTHER FINDINGS: None. IMPRESSION: Findings may represent interstitial pneumonitis, interstitial pulmonary edema or interstitial fibrosis. No lobar pneumonia. Persistent moderate cardiomegaly.
[2018-02-19 11:59] LABS: ABG ALLEN TEST YES; ARTERIAL BLOOD GAS HCO3 24.1 mmol/L (21-28); ARTERIAL BLOOD GAS O2 SAT 100.7 % (95-98); ARTERIAL BLOOD GAS PCO2 42 mm/Hg (35-45); ARTERIAL BLOOD GAS PH 7.37 (7.35-7.45); ARTERIAL BLOOD GAS PO2 356 mm/Hg (80-100); ARTERIAL BLOOD GAS TCO2 25.6 mmol/L (22-28)
--- NOTE | 2018-02-19 14:11 | CP.PCM.CON ---
History of Present Illness - History of Present Illness History of Present Illness: patient is a 77 years of age female known to me with end stage renal disease on maintenance hemodialysis. She has not been compliance. And she came to the emergency room complaining of shortness of breath difficulty breathing with sign of volume overloaded. Patient did not go for outpatient dialysis as usual family is aware and the son is aware the patient does not show up as outpatient for dialysis Past medical history In addition to end stage renal disease recurrent pulmonary edema because of the lack of dialysis and missing dialysis and history of hypertension and history of hyperphosphatemia and arrangement has been done to go for subacute unit last admission and she turned it down the last moment Review of Systems - Review of Systems Systems not reviewed;Unavailable: Respiratory Distress - Constitutional Constitutional: Anorexia. absent: Chills - EENT Nose/Mouth/Throat: As Per HPI - Cardiovascular Cardiovascular: Dyspnea, Edema. absent: Pedal Edema - Respiratory Respiratory: Cough, Dyspnea, Chest Congestion. absent: Hemoptysis - Gastrointestinal Gastrointestinal: Nausea. absent: Abdominal Pain - Genitourinary Genitourinary: Nocturia - Musculoskeletal Musculoskeletal: Muscle Weakness. absent: Arthralgias - Integumentary Integumentary: absent: Acne - Neurological Neurological: As Per HPI, Confusion. absent: Numbness - Endocrine Endocrine: Fatigue - Hematologic/Lymphatic Hematologic: absent: Easy Bleeding Past Patient History - Infectious Disease Hx of Infectious Diseases: None - Tetanus Immunizations Tetanus Immunization: Unknown - Past Medical History & Family History Past Medical History?: Yes - Past Social History Smoking Status: Never Smoked - CARDIAC Hx Cardiac Disorders: Yes - PULMONARY Hx Respiratory Disorders: Yes - NEUROLOGICAL Hx Neurological Disorder: Yes - HEENT Hx HEENT Problems: No - RENAL Hx Chronic Kidney Disease: Yes - ENDOCRINE/METABOLIC Hx Endocrine Disorders: No - HEMATOLOGICAL/ONCOLOGICAL Hx Anemia: Yes Hx Human Immunodeficiency Virus (HIV): No - INTEGUMENTARY Hx Dermatological Problems: No - MUSCULOSKELETAL/RHEUMATOLOGICAL Hx Falls: Yes - GASTROINTESTINAL Hx Gastrointestinal Disorders: Yes Hx Constipation: Yes - GENITOURINARY/GYNECOLOGICAL Hx Genitourinary Disorders: Yes - PSYCHIATRIC Hx Anxiety: Yes Hx Schizophrenia: No - SURGICAL HISTORY Hx Appendectomy: Yes Hx Tonsillectomy: Yes - ANESTHESIA Hx Anesthesia: Yes Hx Anesthesia Reactions: No Hx Malignant Hyperthermia: No Meds Allergies/Adverse Reactions: Allergies Allergy/AdvReac Type Severity Reaction Status Date / Time No Known Allergies Allergy Verified 02/19/18 08:06 Physical Exam - Constitutional Appears: No Acute Distress - Eye Exam Eye Exam: Conjunctival injection - ENT Exam ENT Exam: Mucous Membranes Moist - Neck Exam Neck exam: Negative for: Lymphadenopathy - Respiratory Exam Respiratory Exam: Rales, Rhonchi, NORMAL BREATHING PATTERN. absent: Chest Wall Tenderness - Cardiovascular Exam Cardiovascular Exam: absent: Gallop, JVD, Rubs - Extremities Exam Extremities exam: Negative for: calf tenderness - Back Exam Back exam: absent: CVA tenderness (L), CVA tenderness (R) - Neurological Exam Neurological exam: Alert, Altered - Psychiatric Exam Psychiatric exam: Normal Affect Results - Vital Signs Recent Vital Signs: Last Vital Signs Temp 97.8 F 02/19/18 13:20 Pulse 81 02/19/18 14:00 Resp 18 02/19/18 13:20 BP 172/72 H 02/19/18 13:20 Pulse Ox 99 02/19/18 13:31 - Labs Result Diagrams: 02/20/18 04:35 02/20/18 04:35 Labs: Laboratory Results - last 24 hr 02/19/18 02/19/18 02/19/18 08:20 08:20 08:20 WBC 7.7 D RBC 3.75 L Hgb 11.2 L D Hct 33.2 L MCV 88.6 D MCH 29.8 MCHC 33.7 RDW 14.6 H Plt Count 166 MPV 10.5 Neut % (Auto) 55.4 Lymph % (Auto) 23.0 [place] % (Auto) 14.6 H Eos % (Auto) 5.7 H Baso % (Auto) 1.3 Neut # (Auto) 4.3 Lymph # (Auto) 1.8 [place] # (Auto) 1.1 H Eos # (Auto) 0.4 Baso # (Auto) 0.1 PT 10.6 INR 1.0 APTT 25.4 L pCO2 pO2 HCO3 ABG pH ABG Total CO2 ABG O2 Saturation ABG Base Excess Nacho Test ABG Potassium A-a O2 Difference Glucose Lactate FiO2 Inspiratory BiPAP Expiratory BiPAP Crit Value Called To Crit Value Called By Crit Value Read Back Blood Gas Notified Time Sodium 136 Potassium 5.3 H Chloride 95 L Carbon Dioxide 22 Anion Gap 24 H BUN 51 H Creatinine 5.3 H Est GFR ( Amer) 9 Est GFR (Non-Af Amer) 8 Random Glucose 140 H Calcium 9.9 Phosphorus 4.1 Magnesium 1.9 Total Bilirubin 1.1 AST 30 ALT 28 Alkaline Phosphatase 95 Troponin I 0.0250 NT-Pro-B Natriuret Pep 09037 H Total Protein 7.5 Albumin 4.8 Globulin 2.7 Albumin/Globulin Ratio 1.8 Arterial Blood Potassium 02/19/18 02/19/18 08:30 11:30 WBC RBC Hgb Hct MCV MCH MCHC RDW Plt Count MPV Neut % (Auto) Lymph % (Auto) [place] % (Auto) Eos % (Auto) Baso % (Auto) Neut # (Auto) Lymph # (Auto) [place] # (Auto) Eos # (Auto) Baso # (Auto) PT INR APTT pCO2 78 H* 42 pO2 86 356 H HCO3 20.9 L 24.1 ABG pH 7.13 L* 7.37 ABG Total CO2 28.3 H 25.6 ABG O2 Saturation 98.3 H 100.7 H ABG Base Excess -5.0 L -1.1 Nacho Test Yes Yes ABG Potassium 5.2 5.4 H A-a O2 Difference 530.0 305.0 Glucose 212 H 146 H Lactate 0.9 0.5 L FiO2 100.0 100.0 Inspiratory BiPAP 12 12 Expiratory BiPAP 6 6 Crit Value Called To Dr albina matos Crit Value Called By Rt Crit Value Read Back Y Blood Gas Notified Time 838 Sodium 131.0 L 130.0 L Potassium Chloride 98.0 100.0 Carbon Dioxide Anion Gap BUN Creatinine Est GFR ( Amer) Est GFR (Non-Af Amer) Random Glucose Calcium Phosphorus Magnesium Total Bilirubin AST ALT Alkaline Phosphatase Troponin I NT-Pro-B Natriuret Pep Total Protein Albumin Globulin Albumin/Globulin Ratio Arterial Blood Potassium 5.2 5.4 H Assessment & Plan (1) Chronic kidney disease requiring chronic dialysis Assessment and Plan: end stage renal disease patient required urgent hemodialysis because of the pulmonary edema and the congestion and the patient has been missing dialysis she did not have any outpatient dialysis since she left last time hypertension Hyperphosphatemia Hyperkalemia Secondary hyperparathyroidism Noncompliance lady Resume all the medications Status: Acute (2) Acute pulmonary edema Status: Acute
[2018-02-19 15:46] LABS: SQUAMOUS EPITHIAL 1 /hpf (0-5); URINE BILIRUBIN NEGATIVE (NEGATIVE); URINE BLOOD NEGATIVE (NEGATIVE); URINE CLARITY SLIGHTY-CLOUDY (Clear); URINE COLOR YELLOW (YELLOW); URINE GLUCOSE (UA) NEG (Normal); URINE LEUKOCYTE ESTERASE NEG Leu/uL (Negative); URINE PROTEIN 100 mg/dL (NEGATIVE); URINE UROBILINOGEN 0.2-1.0 mg/dL (0.2-1.0)
[2018-02-19] MEDS ORDERED: Lidocaine/Prilocaine CREAM 5GM TP STA (18:51)
--- NOTE | 2018-02-20 01:34 | CON ---
Copied To: Mauricio Torres MD Attending MD: Mauricio Torres MD DATE: 02/19/2018 CRITICAL CARE CONSULTATION LOCATION: The patient in ICU, bed 423. TIME SPENT: 40 minutes. The patient is seen and evaluated at the bedside. Past medical, surgical, social history reviewed. HISTORY OF PRESENT ILLNESS: A 77-year-old female with Alzheimer's disease, anxiety, hypertension, end-stage renal disease, on hemodialysis, noncompliant with dialysis, recently admitted to [facility] in January with fluid overload secondary to missed dialysis; readmitted with shortness of breath, fluid overload, and noted to have CO2 retention. In ER, the patient, on BiPAP 12/6 with FiO2 of 100%, improved. Repeat pO2 of 356 and pCO2 of 42, admitted to ICU. Awaiting for hemodialysis to begin. REVIEW OF SYSTEMS No fever, chills, cough, mild to moderate shortness of breath. No chest pain, palpitation or cough. No abdominal discomfort, no diarrhea. ALLERGIES: NONE DOCUMENTED. FAMILY HISTORY: Not available. SOCIAL HISTORY: Nonsmoker, non-ETOH dependence. Lives with sons. Reportedly noncompliant with the dialysis. PHYSICAL EXAMINATION: VITAL SIGNS: Temperature 97.8, heart rate 85, respiratory rate 18, blood pressure 169/87, oxygen saturation 100%. EXAMINATION OF HEAD, EYES, EARS, NOSE, AND THROAT: Pupils are reactive. Conjunctivae pink. Sclerae are white. NECK: Supple. CHEST: Bilateral breath sounds. Clear to auscultation anteriorly and laterally. Fine crepitations at the bases. HEART: Rhythm regular. S1, S2 normal intensity. No S3, S4, gallop. No audible murmur. ABDOMEN: Bowel sounds present and soft. Liver and spleen not palpable. Bladder not distended. EXTREMITIES: With trace edema. DP palpable. NEUROLOGIC EXAMINATION: Oriented to name and place but not to time. No cranial nerve deficit. Moves all four extremities. Deep tendon reflexes 2+, plantar down flexor. CURRENT MEDICATIONS: Xanax 0.5 mg p.o. daily, Norvasc 5 mg p.o. daily, atorvastatin 20 mg daily, calcium carbonate 500 mg three times daily, clonidine 0.1 mg every 8 hours, labetalol 100 mg b.i.d., lisinopril 5 mg p.o. daily. LABORATORY DATA: WBC 7.7, hemoglobin 11.2, hematocrit 33.2, platelet count 166 with neutrophils 55.4, lymphocytes 23, monocytes 14.6. PT 10.6, INR 1, PTT 25.4. ABG, pH 7.537, pCO2 of 42, pO2 of 356. Oxygen saturation 100.7 on BiPAP 12/6, 100%, Lactate 0.5. SMA-7: Sodium 136, potassium 5.3, chloride 95, CO2 of 22, blood urea nitrogen 51, creatinine 5.3, random glucose 140, calcium 9.9, phosphorus 4.1, magnesium 1.9, total bilirubin 1.1, AST 30, ALT 28, alkaline phosphatase 95, total troponin 0.0250. ProBNP 70,700. Total protein 7.5, albumin 4.8. Repeat potassium 5.4. Chest x-ray, sinus tachycardia, poor R-wave progression in anterior leads. Chest x-ray, no lobar pneumonia, persistent moderate cardiomegaly, interstitial pulmonary edema or interstitial fibrosis. IMPRESSION: 1. Neurology: Forgetful, noncompliant with dialysis, suspect Alzheimer's disease, needs further workup and may need to help at home to be compliant with the dialysis. 2. Cardiac: Sinus tachycardia, pulmonary edema secondary to fluid overload from missed dialysis. Review of echocardiogram from before to assess the left ventricular systolic function. 3. Pulmonary: [id number] respiratory distress with CO2 retention, on BiPAP, improved, stable. 4. Renal: Chronic kidney disease. End-stage renal disease, on hemodialysis, noncompliant. Awaiting for hemodialysis. Resume her current antihypertensive medications and renal medications. 6. Gastrointestinal: Tolerating n.p.o. feeds. No acute gastrointestinal issues noted. 7. Endocrine: No history of hypothyroidism or diabetes. Maintain blood sugar less than 180. Renal diet to follow. Continue deep venous thrombosis, gastrointestinal prophylaxis. Mauricio Torres MD
[2018-02-20 06:04] LABS: ALB/GLOB RATIO 1.6 (1.0-2.1); ALBUMIN 4.2 g/dL (3.5-5.0); CALCIUM 9.2 mg/dL (8.4-10.2)
[2018-02-20 06:05] LABS: BASO % 0.1 % (0.0-2.0); HEMOGLOBIN 9.8 g/dL (12.0-16.0); LYMPH # 0.3 K/uL (1.0-4.3); MEAN CELL VOLUME 87.6 fl (81.0-99.0); MEAN CORPUSCULAR HEMOGLOBIN 29.8 pg (27.0-31.0); MEAN PLATELET VOLUME 10.7 fl (7.2-11.7); MONO # 0.5 K/uL (0.0-0.8); MONO % 11.8 % (0.0-10.0); NEUT # 3.2 K/uL (1.8-7.0); NEUT % 80.1 % (50.0-75.0); PLATELET COUNT 141 K/uL (130-400); RBC 3.27 Mil/uL (3.80-5.20); RED CELL DISTRIBUTION WIDTH 13.9 % (11.5-14.5)
--- NOTE | 2018-02-20 09:15 | CP.PCM.HP ---
<Mirna Johnson - Last Filed: 02/20/18 11:44> History of Present Illness - History of Present Illness History of Present Illness: 77 yo female with ESRD on HD, anemia, anxiety and hypercholesterolemia, hx of dementia presented to ED for dyspnea; missed dialysis and had fluid overload; was admitted to ICU. Pt seen and examined in ICU with son at bedside. Pt missed dialysis this past week; she could not give a reason why she missed session and shrugs. At that time pt was on bipap machine, so talking was difficult. Pt's son at bedside said they try to encourage her to go, but she does not want to. When seen this morning, pt doing much better, and was able to say "sometimes I don't want to go, and sometimes I forget." Denies chest pain, abdominal pain, n /v/d/c fever and chills. PMD: Dr. Genaro Martínez Application Development Director: Dr. Benedict PMHx: Alzheimers/dementia, ESRD (on HD), anemia, anxiety and hypercholesterolemia SurgHx: appendectomy, tonsillectomy FMHx: HTN SocHx: denies tobacco, Etoh or drugs Allergies: NKDA Present on Admission - Present on Admission Any Indicators Present on Admission: No Review of Systems - Review of Systems All systems: reviewed and no additional remarkable complaints except - Cardiovascular Cardiovascular: Dyspnea. absent: Chest Pain - Respiratory Respiratory: absent: Cough - Gastrointestinal Gastrointestinal: absent: Abdominal Pain Past Patient History - Infectious Disease Hx of Infectious Diseases: None - Tetanus Immunizations Tetanus Immunization: Unknown - Past Medical History & Family History Past Medical History?: Yes - Past Social History Smoking Status: Never Smoked - CARDIAC Hx Cardiac Disorders: Yes - PULMONARY Hx Respiratory Disorders: Yes - NEUROLOGICAL Hx Neurological Disorder: Yes - HEENT Hx HEENT Problems: No - RENAL Hx Chronic Kidney Disease: Yes - ENDOCRINE/METABOLIC Hx Endocrine Disorders: No - HEMATOLOGICAL/ONCOLOGICAL Hx Anemia: Yes Hx Human Immunodeficiency Virus (HIV): No - INTEGUMENTARY Hx Dermatological Problems: No - MUSCULOSKELETAL/RHEUMATOLOGICAL Hx Falls: Yes - GASTROINTESTINAL Hx Gastrointestinal Disorders: Yes Hx Constipation: Yes - GENITOURINARY/GYNECOLOGICAL Hx Genitourinary Disorders: Yes - PSYCHIATRIC Hx Anxiety: Yes Hx Schizophrenia: No - SURGICAL HISTORY Hx Appendectomy: Yes Hx Tonsillectomy: Yes - ANESTHESIA Hx Anesthesia: Yes Hx Anesthesia Reactions: No Hx Malignant Hyperthermia: No Meds Allergies/Adverse Reactions: Allergies Allergy/AdvReac Type Severity Reaction Status Date / Time No Known Allergies Allergy Verified 02/19/18 08:06 Physical Exam - Constitutional Appears: No Acute Distress, Chronically Ill - Eye Exam Eye Exam: Normal appearance - Respiratory Exam Respiratory Exam: NORMAL BREATHING PATTERN Additional comments: some crackles on initial exam; at this time none auscultated - Cardiovascular Exam Cardiovascular Exam: REGULAR RHYTHM - GI/Abdominal Exam GI & Abdominal Exam: Normal Bowel Sounds, Soft. absent: Tenderness - Extremities Exam Extremities exam: Positive for: normal inspection. Negative for: calf tenderness - Neurological Exam Neurological exam: Alert - Skin Skin Exam: Normal Color, Warm Results - Vital Signs Recent Vital Signs: Last Vital Signs Temp 97.6 F 02/20/18 08:00 Pulse 77 02/20/18 09:02 Resp 20 02/20/18 08:00 BP 141/56 L 02/20/18 09:02 Pulse Ox 99 02/20/18 08:00 - Labs Result Diagrams: 02/20/18 04:35 02/20/18 04:35 Labs: Laboratory Results - last 24 hr 02/19/18 02/19/18 02/19/18 08:20 11:30 14:20 WBC RBC Hgb Hct MCV MCH MCHC RDW Plt Count MPV Neut % (Auto) Lymph % (Auto) [place] % (Auto) Eos % (Auto) Baso % (Auto) Neut # (Auto) Lymph # (Auto) [place] # (Auto) Eos # (Auto) Baso # (Auto) pCO2 42 pO2 356 H HCO3 24.1 ABG pH 7.37 ABG Total CO2 25.6 ABG O2 Saturation 100.7 H ABG Base Excess -1.1 Nacho Test Yes ABG Potassium 5.4 H A-a O2 Difference 305.0 Glucose 146 H Lactate 0.5 L FiO2 100.0 Inspiratory BiPAP 12 Expiratory BiPAP 6 Sodium 136 130.0 L Potassium 5.3 H Chloride 95 L 100.0 Carbon Dioxide 22 Anion Gap 24 H BUN 51 H Creatinine 5.3 H Est GFR ( Amer) 9 Est GFR (Non-Af Amer) 8 Random Glucose 140 H Calcium 9.9 Phosphorus 4.1 Magnesium 1.9 Total Bilirubin 1.1 AST 30 ALT 28 Alkaline Phosphatase 95 Troponin I 0.0250 NT-Pro-B Natriuret Pep 73111 H Total Protein 7.5 Albumin 4.8 Globulin 2.7 Albumin/Globulin Ratio 1.8 Arterial Blood Potassium 5.4 H Urine Color Yellow Urine Clarity Slighty-cloudy Urine pH 7.0 Ur Specific [place] 1.009 Urine Protein 100 Urine Glucose (UA) Neg Urine Ketones Negative Urine Blood Negative Urine Nitrate Negative Urine Bilirubin Negative Urine Urobilinogen 0.2-1.0 Ur Leukocyte Esterase Neg Urine RBC (Auto) 1 Urine Microscopic WBC 2 Ur Squamous Epith Cells 1 02/20/18 02/20/18 04:35 04:35 WBC 4.0 L RBC 3.27 L Hgb 9.8 L Hct 28.7 L MCV 87.6 MCH 29.8 MCHC 34.0 RDW 13.9 Plt Count 141 MPV 10.7 Neut % (Auto) 80.1 H Lymph % (Auto) 8.0 L [place] % (Auto) 11.8 H Eos % (Auto) 0.0 Baso % (Auto) 0.1 Neut # (Auto) 3.2 Lymph # (Auto) 0.3 L [place] # (Auto) 0.5 Eos # (Auto) 0.0 Baso # (Auto) 0.0 pCO2 pO2 HCO3 ABG pH ABG Total CO2 ABG O2 Saturation ABG Base Excess Nacho Test ABG Potassium A-a O2 Difference Glucose Lactate FiO2 Inspiratory BiPAP Expiratory BiPAP Sodium 137 Potassium 4.2 Chloride 95 L Carbon Dioxide 26 Anion Gap 20 BUN 25 H Creatinine 3.0 H Est GFR ( Amer) 18 Est GFR (Non-Af Amer) 15 Random Glucose 119 H Calcium 9.2 Phosphorus 4.2 Magnesium 1.9 Total Bilirubin 0.8 AST 26 ALT 31 Alkaline Phosphatase 67 Troponin I NT-Pro-B Natriuret Pep Total Protein 6.8 Albumin 4.2 Globulin 2.6 Albumin/Globulin Ratio 1.6 Arterial Blood Potassium Urine Color Urine Clarity Urine pH Ur Specific [place] Urine Protein Urine Glucose (UA) Urine Ketones Urine Blood Urine Nitrate Urine Bilirubin Urine Urobilinogen Ur Leukocyte Esterase Urine RBC (Auto) Urine Microscopic WBC Ur Squamous Epith Cells Assessment & Plan - Assessment and Plan (Free Text) Assessment: 77 yo F with hx dementia, ESRD on HD, anxiety, hypercholesterolemia admitted for dyspnea due to missed dialysis and fluid overload. Plan: - admitted to ICU - nephrology consult- Dr. Benedict, had HD last night - elevated proBNP; last echo from 10/2017 EF 50%; cardio consult - renal diet - resume home meds - rest of plan as ordered <Darnell Rosado - Last Filed: 02/25/18 08:34> Results - Vital Signs Recent Vital Signs: Last Vital Signs Temp 98.2 F 02/22/18 08:37 Pulse 67 02/22/18 09:59 Resp 20 02/22/18 08:37 BP 157/61 H 02/22/18 09:59 Pulse Ox 96 02/22/18 08:37 - Labs Result Diagrams: 02/22/18 06:10 02/22/18 06:10 Assessment & Plan - Assessment and Plan (Free Text) Plan: Patient was personally seen and examined by me in rounds with residents. Available labs and diagnostic data reviewed. Case, Patient's condition and management plan discussed with residents in rounds. Agree with resident's progress note. Plan: As ordered.
[2018-02-20 09:32] LABS: LYMPHOCYTE 4 % (20-50); MONOCYTE 7 % (0-10); NEUTROPHIL 89 % (42-75); PLATELET ESTIMATE NORMAL (NORMAL); TOTAL CELLS COUNTED 100
[2018-02-20 09:33] LABS: HYPOCHROMIC SLIGHT; OVALOCYTES SLIGHT; SCHISTOCYTES SLIGHT
[2018-02-20 09:34] LABS: LARGE PLATELETS PRESENT
--- NOTE | 2018-02-20 10:16 | CP.PCM.CON ---
History of Present Illness - History of Present Illness History of Present Illness: Consultation for CHF HPI: 77-year-old female with past medical history significant for hypertension dyslipidemia anxiety disorder ESRD on hemodialysis has been reluctant in the past to undergo hemodialysis on an outpatient basis had recurrent multiple hospitalizations for pulmonary vascular congestion secondary to fluid overload. On this presentation patient was supposed to have outpatient hemodialysis but did not follow through patient was noted to be in severe pulmonary edema for which she was initiated on BiPAP treatment. She was having difficulty in formulation of sentences. Patient overnight improved after diet after initiation of BiPAP therapy. She has not had any kind of cardiac ischemic workup or evaluation in the past. Review of Systems - Review of Systems Systems not reviewed;Unavailable: Acuity of Condition - Constitutional Constitutional: As Per HPI - EENT Eyes: As Per HPI Ears: As Per HPI Nose/Mouth/Throat: As Per HPI - Breasts Breasts: As Per HPI - Cardiovascular Cardiovascular: As Per HPI - Respiratory Respiratory: As Per HPI - Gastrointestinal Gastrointestinal: As Per HPI - Genitourinary Genitourinary: As Per HPI - Reproductive: Female Reproductive:Female: As Per HPI - Menstruation Menstruation: As Per HPI - Musculoskeletal Musculoskeletal: As Per HPI - Integumentary Integumentary: As Per HPI - Neurological Neurological: As Per HPI - Psychiatric Psychiatric: As Per HPI - Endocrine Endocrine: As Per HPI - Hematologic/Lymphatic Hematologic: As Per HPI Past Patient History - Infectious Disease Hx of Infectious Diseases: None - Tetanus Immunizations Tetanus Immunization: Unknown - Past Medical History & Family History Past Medical History?: Yes - Past Social History Smoking Status: Never Smoked - CARDIAC Hx Cardiac Disorders: Yes - PULMONARY Hx Respiratory Disorders: Yes - NEUROLOGICAL Hx Neurological Disorder: Yes - HEENT Hx HEENT Problems: No - RENAL Hx Chronic Kidney Disease: Yes - ENDOCRINE/METABOLIC Hx Endocrine Disorders: No - HEMATOLOGICAL/ONCOLOGICAL Hx Anemia: Yes Hx Human Immunodeficiency Virus (HIV): No - INTEGUMENTARY Hx Dermatological Problems: No - MUSCULOSKELETAL/RHEUMATOLOGICAL Hx Falls: Yes - GASTROINTESTINAL Hx Gastrointestinal Disorders: Yes Hx Constipation: Yes - GENITOURINARY/GYNECOLOGICAL Hx Genitourinary Disorders: Yes - PSYCHIATRIC Hx Anxiety: Yes Hx Schizophrenia: No - SURGICAL HISTORY Hx Appendectomy: Yes Hx Tonsillectomy: Yes - ANESTHESIA Hx Anesthesia: Yes Hx Anesthesia Reactions: No Hx Malignant Hyperthermia: No Meds Allergies/Adverse Reactions: Allergies Allergy/AdvReac Type Severity Reaction Status Date / Time No Known Allergies Allergy Verified 02/19/18 08:06 - Medications Medications: Current Medications Acetaminophen (Tylenol 325mg Tab) 650 mg PO Q6 PRN PRN Reason: Pain, Mild (1-3) Last Admin: 02/19/18 17:48 Dose: 650 mg Alprazolam (Xanax) 0.5 mg PO DAILY PRN PRN Reason: Anxiety Amlodipine Besylate (Norvasc) 5 mg PO DAILY [facility] Last Admin: 02/20/18 09:02 Dose: 5 mg Atorvastatin Calcium (Lipitor) 20 mg PO DAILY [facility] Last Admin: 02/20/18 09:02 Dose: 20 mg Calcium Carbonate (Oscal) 500 mg PO TID [facility] Last Admin: 02/20/18 09:02 Dose: 500 mg Clonidine HCl (Catapres) 0.1 mg PO Q8 [facility] Last Admin: 02/20/18 09:02 Dose: 0.1 mg Piperacillin Sod/Tazobactam (Sod 2.25 gm/ Sodium Chloride) 100 mls @ 100 mls/ hr IVPB Q8 [facility] PRN Reason: Protocol Physical Exam - Constitutional Appears: Well - Head Exam Head Exam: ATRAUMATIC, NORMAL INSPECTION, NORMOCEPHALIC - Eye Exam Eye Exam: EOMI, Normal appearance, PERRL Pupil Exam: NORMAL ACCOMODATION, PERRL - ENT Exam ENT Exam: Mucous Membranes Moist, Normal Exam - Neck Exam Neck exam: Positive for: Normal Inspection - Respiratory Exam Respiratory Exam: Clear to Auscultation Bilateral, NORMAL BREATHING PATTERN - Cardiovascular Exam Cardiovascular Exam: REGULAR RHYTHM, RRR, +S1, +S2, Systolic Murmur - GI/Abdominal Exam GI & Abdominal Exam: Normal Bowel Sounds, Soft. absent: Tenderness - Extremities Exam Extremities exam: Positive for: normal inspection - Back Exam Back exam: NORMAL INSPECTION - Neurological Exam Neurological exam: Alert, CN II-XII Intact, Normal Gait, Oriented x3, Reflexes Normal - Psychiatric Exam Psychiatric exam: Normal Affect, Normal Mood - Skin Skin Exam: Dry, Intact, Normal Color, Warm Results - Vital Signs Recent Vital Signs: Last Vital Signs Temp 97.6 F 02/20/18 08:00 Pulse 76 02/20/18 10:00 Resp 16 02/20/18 10:00 BP 126/53 L 02/20/18 10:00 Pulse Ox 100 02/20/18 10:00 - Labs Result Diagrams: 02/20/18 04:35 02/20/18 04:35 Labs: Laboratory Results - last 24 hr 02/19/18 02/19/18 02/20/18 11:30 14:20 04:35 WBC 4.0 L RBC 3.27 L Hgb 9.8 L Hct 28.7 L MCV 87.6 MCH 29.8 MCHC 34.0 RDW 13.9 Plt Count 141 MPV 10.7 Neut % (Auto) 80.1 H Lymph % (Auto) 8.0 L [place] % (Auto) 11.8 H Eos % (Auto) 0.0 Baso % (Auto) 0.1 Neut # (Auto) 3.2 Lymph # (Auto) 0.3 L [place] # (Auto) 0.5 Eos # (Auto) 0.0 Baso # (Auto) 0.0 Neutrophils % (Manual) 89 H Lymphocytes % (Manual) 4 L Monocytes % (Manual) 7 Platelet Estimate Normal Large Platelets Present Hypochromasia (manual) Slight Ovalocytes Slight Schistocytes Slight pCO2 42 pO2 356 H HCO3 24.1 ABG pH 7.37 ABG Total CO2 25.6 ABG O2 Saturation 100.7 H ABG Base Excess -1.1 Nacho Test Yes ABG Potassium 5.4 H A-a O2 Difference 305.0 Sodium 130.0 L Chloride 100.0 Glucose 146 H Lactate 0.5 L FiO2 100.0 Inspiratory BiPAP 12 Expiratory BiPAP 6 Potassium Carbon Dioxide Anion Gap BUN Creatinine Est GFR ( Amer) Est GFR (Non-Af Amer) Random Glucose Calcium Phosphorus Magnesium Total Bilirubin AST ALT Alkaline Phosphatase Total Protein Albumin Globulin Albumin/Globulin Ratio Arterial Blood Potassium 5.4 H Urine Color Yellow Urine Clarity Slighty-cloudy Urine pH 7.0 Ur Specific [place] 1.009 Urine Protein 100 Urine Glucose (UA) Neg Urine Ketones Negative Urine Blood Negative Urine Nitrate Negative Urine Bilirubin Negative Urine Urobilinogen 0.2-1.0 Ur Leukocyte Esterase Neg Urine RBC (Auto) 1 Urine Microscopic WBC 2 Ur Squamous Epith Cells 1 02/20/18 04:35 WBC RBC Hgb Hct MCV MCH MCHC RDW Plt Count MPV Neut % (Auto) Lymph % (Auto) [place] % (Auto) Eos % (Auto) Baso % (Auto) Neut # (Auto) Lymph # (Auto) [place] # (Auto) Eos # (Auto) Baso # (Auto) Neutrophils % (Manual) Lymphocytes % (Manual) Monocytes % (Manual) Platelet Estimate Large Platelets Hypochromasia (manual) Ovalocytes Schistocytes pCO2 pO2 HCO3 ABG pH ABG Total CO2 ABG O2 Saturation ABG Base Excess Nacho Test ABG Potassium A-a O2 Difference Sodium 137 Chloride 95 L Glucose Lactate FiO2 Inspiratory BiPAP Expiratory BiPAP Potassium 4.2 Carbon Dioxide 26 Anion Gap 20 BUN 25 H Creatinine 3.0 H Est GFR ( Amer) 18 Est GFR (Non-Af Amer) 15 Random Glucose 119 H Calcium 9.2 Phosphorus 4.2 Magnesium 1.9 Total Bilirubin 0.8 AST 26 ALT 31 Alkaline Phosphatase 67 Total Protein 6.8 Albumin 4.2 Globulin 2.6 Albumin/Globulin Ratio 1.6 Arterial Blood Potassium Urine Color Urine Clarity Urine pH Ur Specific [place] Urine Protein Urine Glucose (UA) Urine Ketones Urine Blood Urine Nitrate Urine Bilirubin Urine Urobilinogen Ur Leukocyte Esterase Urine RBC (Auto) Urine Microscopic WBC Ur Squamous Epith Cells Assessment & Plan (1) Acute on chronic renal failure Status: Acute Priority: Medium (2) CHF exacerbation Assessment and Plan: [id number] Status: Acute Priority: High (3) Acute pulmonary edema Status: Acute (4) Altered mental status Status: Acute (5) Pulmonary edema Status: Acute (6) Respiratory distress Status: Acute
[2018-02-20 11:51] LABS: HEPATITIS B SURFACE AG Negative (NEGATIVE)
[2018-02-20 11:56] LABS: HEPATITIS A IGM NEGATIVE (NEGATIVE); HEPATITIS B CORE AB NEGATIVE (NEGATIVE)
[2018-02-20 12:08] LABS: HEPATITIS C ANTIBODY NEGATIVE (NEGATIVE)
--- NOTE | 2018-02-20 12:10 | CP.PCM.PN ---
Subjective - Date & Time of Evaluation Date of Evaluation: 02/20/18 Time of Evaluation: 12:08 - Subjective Subjective: patient is doing much better less shortness of breath After she completed hemodialysis yesterday Objective - Vital Signs/Intake and Output Vital Signs (last 24 hours): Temp Pulse Resp BP Pulse Ox 97.6 F 76 16 126/53 L 100 02/20/18 08:00 02/20/18 10:00 02/20/18 10:00 02/20/18 10:00 02/20/18 10:00 - Medications Medications: Current Medications Acetaminophen (Tylenol 325mg Tab) 650 mg PO Q6 PRN PRN Reason: Pain, Mild (1-3) Last Admin: 02/19/18 17:48 Dose: 650 mg Alprazolam (Xanax) 0.5 mg PO DAILY PRN PRN Reason: Anxiety Amlodipine Besylate (Norvasc) 5 mg PO DAILY [facility] Last Admin: 02/20/18 09:02 Dose: 5 mg Atorvastatin Calcium (Lipitor) 20 mg PO DAILY [facility] Last Admin: 02/20/18 09:02 Dose: 20 mg Clonidine HCl (Catapres) 0.1 mg PO Q8 [facility] Last Admin: 02/20/18 09:02 Dose: 0.1 mg Piperacillin Sod/Tazobactam (Sod 2.25 gm/ Sodium Chloride) 100 mls @ 100 mls/ hr IVPB Q8 [facility] PRN Reason: Protocol Last Admin: 02/20/18 10:00 Dose: 100 mls/hr - Labs Labs: 02/20/18 04:35 02/20/18 04:35 PT 10.6 Seconds (9.8-13.1) 02/19/18 08:20 INR 1.0 02/19/18 08:20 APTT 25.4 Seconds (25.6-37.1) L 02/19/18 08:20 - Constitutional Appears: No Acute Distress - Eye Exam Eye Exam: Conjunctival injection - ENT Exam ENT Exam: Mucous Membranes Moist - Neck Exam Neck Exam: absent: Lymphadenopathy - Respiratory Exam Respiratory Exam: NORMAL BREATHING PATTERN. absent: Chest Wall Tenderness - Cardiovascular Exam Cardiovascular Exam: absent: Gallop, JVD, Rubs - GI/Abdominal Exam GI & Abdominal Exam: Soft, Normal Bowel Sounds - Extremities Exam Extremities Exam: absent: Calf Tenderness - Back Exam Back Exam: absent: CVA tenderness (L), CVA tenderness (R) - Neurological Exam Neurological Exam: Alert - Psychiatric Exam Psychiatric exam: Normal Affect - Skin Skin Exam: absent: Cyanosis Assessment and Plan (1) Chronic kidney disease requiring chronic dialysis Assessment & Plan: end stage renal disease Palafox admitted with pulmonary edema because she missed dialysis for about 10 days Hypertension Continue the same medication I reviewed the medication with the son I spoke to the son again we went over the noncompliance issue Dementia Status: Acute (2) Acute pulmonary edema Status: Acute
[2018-02-20] MEDS: Calcium Acetate 667 MG Capsule PO SCH ×2 (13:01→16:21)
[2018-02-20] MEDS ORDERED: Sodium Chloride 3% for Inhalation 4 ML VIAL.NEB IH PRN (13:44)
--- NOTE | 2018-02-20 15:42 | CP.PCM.CON ---
History of Present Illness - History of Present Illness History of Present Illness: pt is a 77-year-old female , no previous formal psychiatric diagnosis or treatment pt with past medical history significant for hypertension dyslipidemia ESRD on hemodialysis has been reluctant in the past to undergo hemodialysis pt on evaluation, reported that she continues to be reluctant to go for dialysis , as it makes her very tired, reported that at times she feels down because of her medical illness, reported decreased sleep with early insomnia and decreased appetite, pt denied any current suicidal ideation or thoughts, denied perceptual disturbances. pt noted to be oriented to person and partially to place but not to time unable to recognize the season, month or year, reported that she has memory difficulties for the past few years, unable to remember dates and conversations , when asked the patient if she understands why she needs the dialysis she answered because my family needs sio, when asked if she understands the risks of not having the dialysis she was unable to name the risks, reported my life would be better I explained the risks for the pt and asked her again she was unable to retain the information Past Patient History - Infectious Disease Hx of Infectious Diseases: None - Tetanus Immunizations Tetanus Immunization: Unknown - Past Medical History & Family History Past Medical History?: Yes - Past Social History Smoking Status: Never Smoked - CARDIAC Hx Cardiac Disorders: Yes - PULMONARY Hx Respiratory Disorders: Yes - NEUROLOGICAL Hx Neurological Disorder: Yes - HEENT Hx HEENT Problems: No - RENAL Hx Chronic Kidney Disease: Yes - ENDOCRINE/METABOLIC Hx Endocrine Disorders: No - HEMATOLOGICAL/ONCOLOGICAL Hx Anemia: Yes Hx Human Immunodeficiency Virus (HIV): No - INTEGUMENTARY Hx Dermatological Problems: No - MUSCULOSKELETAL/RHEUMATOLOGICAL Hx Falls: Yes - GASTROINTESTINAL Hx Gastrointestinal Disorders: Yes Hx Constipation: Yes - GENITOURINARY/GYNECOLOGICAL Hx Genitourinary Disorders: Yes - PSYCHIATRIC Hx Anxiety: Yes Hx Schizophrenia: No - SURGICAL HISTORY Hx Appendectomy: Yes Hx Tonsillectomy: Yes - ANESTHESIA Hx Anesthesia: Yes Hx Anesthesia Reactions: No Hx Malignant Hyperthermia: No Meds Allergies/Adverse Reactions: Allergies Allergy/AdvReac Type Severity Reaction Status Date / Time No Known Allergies Allergy Verified 02/19/18 08:06 - Medications Medications: Current Medications Acetaminophen (Tylenol 325mg Tab) 650 mg PO Q6 PRN PRN Reason: Pain, Mild (1-3) Last Admin: 02/20/18 13:25 Dose: 650 mg Alprazolam (Xanax) 0.5 mg PO DAILY PRN PRN Reason: Anxiety Amlodipine Besylate (Norvasc) 5 mg PO DAILY [facility] Last Admin: 02/20/18 09:02 Dose: 5 mg Atorvastatin Calcium (Lipitor) 20 mg PO DAILY [facility] Last Admin: 02/20/18 09:02 Dose: 20 mg Calcium Acetate (Phoslo) 667 mg PO TID [facility] Last Admin: 02/20/18 13:01 Dose: 667 mg Clonidine HCl (Catapres) 0.1 mg PO Q8 [facility] Last Admin: 02/20/18 09:02 Dose: 0.1 mg Guaifenesin/Dextromethorphan (Robitussin Dm) 10 ml PO TID PRN PRN Reason: Cough Piperacillin Sod/Tazobactam (Sod 2.25 gm/ Sodium Chloride) 100 mls @ 100 mls/ hr IVPB Q8 [facility] PRN Reason: Protocol Last Admin: 02/20/18 10:00 Dose: 100 mls/hr Physical Exam - Psychiatric Exam Additional comments: pt seen in bed, cooperative good eye contact, mood reported fine constricted affect, thought form circumstantial, denied any current suicidal or homicidal ideation denied perceptual disturbances, alert awake oriented to person and place not to time Results - Vital Signs Recent Vital Signs: Last Vital Signs Temp 97.5 F L 02/20/18 12:00 Pulse 74 02/20/18 14:00 Resp 19 02/20/18 14:00 BP 142/60 02/20/18 14:00 Pulse Ox 100 02/20/18 14:00 - Labs Result Diagrams: 02/20/18 04:35 02/20/18 04:35 Labs: Laboratory Results - last 24 hr 02/19/18 02/19/18 02/20/18 14:20 21:10 04:35 WBC 4.0 L RBC 3.27 L Hgb 9.8 L Hct 28.7 L MCV 87.6 MCH 29.8 MCHC 34.0 RDW 13.9 Plt Count 141 MPV 10.7 Neut % (Auto) 80.1 H Lymph % (Auto) 8.0 L [place] % (Auto) 11.8 H Eos % (Auto) 0.0 Baso % (Auto) 0.1 Neut # (Auto) 3.2 Lymph # (Auto) 0.3 L [place] # (Auto) 0.5 Eos # (Auto) 0.0 Baso # (Auto) 0.0 Neutrophils % (Manual) 89 H Lymphocytes % (Manual) 4 L Monocytes % (Manual) 7 Platelet Estimate Normal Large Platelets Present Hypochromasia (manual) Slight Ovalocytes Slight Schistocytes Slight Sodium Potassium Chloride Carbon Dioxide Anion Gap BUN Creatinine Est GFR ( Amer) Est GFR (Non-Af Amer) Random Glucose Calcium Phosphorus Magnesium Total Bilirubin AST ALT Alkaline Phosphatase Total Protein Albumin Globulin Albumin/Globulin Ratio Urine Color Yellow Urine Clarity Slighty-cloudy Urine pH 7.0 Ur Specific [place] 1.009 Urine Protein 100 Urine Glucose (UA) Neg Urine Ketones Negative Urine Blood Negative Urine Nitrate Negative Urine Bilirubin Negative Urine Urobilinogen 0.2-1.0 Ur Leukocyte Esterase Neg Urine RBC (Auto) 1 Urine Microscopic WBC 2 Ur Squamous Epith Cells 1 Hepatitis A IgM Ab Negative Hep Bs Antigen Negative Hep B Core IgM Ab Negative Hepatitis C Antibody Negative 02/20/18 04:35 WBC RBC Hgb Hct MCV MCH MCHC RDW Plt Count MPV Neut % (Auto) Lymph % (Auto) [place] % (Auto) Eos % (Auto) Baso % (Auto) Neut # (Auto) Lymph # (Auto) [place] # (Auto) Eos # (Auto) Baso # (Auto) Neutrophils % (Manual) Lymphocytes % (Manual) Monocytes % (Manual) Platelet Estimate Large Platelets Hypochromasia (manual) Ovalocytes Schistocytes Sodium 137 Potassium 4.2 Chloride 95 L Carbon Dioxide 26 Anion Gap 20 BUN 25 H Creatinine 3.0 H Est GFR ( Amer) 18 Est GFR (Non-Af Amer) 15 Random Glucose 119 H Calcium 9.2 Phosphorus 4.2 Magnesium 1.9 Total Bilirubin 0.8 AST 26 ALT 31 Alkaline Phosphatase 67 Total Protein 6.8 Albumin 4.2 Globulin 2.6 Albumin/Globulin Ratio 1.6 Urine Color Urine Clarity Urine pH Ur Specific [place] Urine Protein Urine Glucose (UA) Urine Ketones Urine Blood Urine Nitrate Urine Bilirubin Urine Urobilinogen Ur Leukocyte Esterase Urine RBC (Auto) Urine Microscopic WBC Ur Squamous Epith Cells Hepatitis A IgM Ab Hep Bs Antigen Hep B Core IgM Ab Hepatitis C Antibody Assessment & Plan - Assessment and Plan (Free Text) Assessment: mood disorder due to medical condition major neurocognitive disorder moderate Plan: pt at current mental status unable to explain the nature of treatment, unable to verbalize risks versus benefits of having dialysis, unable also to retain information, pt does not have the capacity to make decision in reference to treatment pt would benefit from being started on remeron 7.5mg qhs
[2018-02-21] MEDS: guaiFENesin DM 200 mg-20 mg/10 ml UD PO PRN ×3 (00:50→16:31)
[2018-02-21 06:28] LABS: HEMOGLOBIN 9.5 g/dL (12.0-16.0); MEAN CORPUSCULAR HEMOGLOBIN 29.8 pg (27.0-31.0); MEAN CORPUSCULAR HGB CONC 33.8 g/dL (33.0-37.0); RBC 3.18 Mil/uL (3.80-5.20); RED CELL DISTRIBUTION WIDTH 14.1 % (11.5-14.5); WHITE BLOOD COUNT 5.3 K/uL (4.8-10.8)
[2018-02-21 06:59] LABS: ALB/GLOB RATIO 1.6 (1.0-2.1); ALBUMIN 3.7 g/dL (3.5-5.0); CALCIUM 8.5 mg/dL (8.4-10.2)
[2018-02-21] MEDS: Calcium Acetate 667 MG Capsule PO SCH ×3 (09:00→17:56)
--- NOTE | 2018-02-21 09:21 | CP.PCM.PN ---
Subjective - Date & Time of Evaluation Date of Evaluation: 02/21/18 Time of Evaluation: 09:17 - Subjective Subjective: patient and bed conscious not in acute distress. Not cooperating with the management and treatment Objective - Vital Signs/Intake and Output Vital Signs (last 24 hours): Temp Pulse Resp BP Pulse Ox 98.9 F 75 20 159/68 H 96 02/21/18 08:03 02/21/18 08:03 02/21/18 08:03 02/21/18 08:03 02/21/18 08:03 - Medications Medications: Current Medications Acetaminophen (Tylenol 325mg Tab) 650 mg PO Q6 PRN PRN Reason: Pain, Mild (1-3) Last Admin: 02/20/18 13:25 Dose: 650 mg Alprazolam (Xanax) 0.5 mg PO DAILY PRN PRN Reason: Anxiety Last Admin: 02/20/18 22:01 Dose: 0.5 mg Amlodipine Besylate (Norvasc) 5 mg PO DAILY [facility] Last Admin: 02/20/18 09:02 Dose: 5 mg Atorvastatin Calcium (Lipitor) 20 mg PO DAILY [facility] Last Admin: 02/20/18 09:02 Dose: 20 mg Calcium Acetate (Phoslo) 667 mg PO TID [facility] Last Admin: 02/20/18 16:21 Dose: 667 mg Clonidine HCl (Catapres) 0.1 mg PO Q8 [facility] Last Admin: 02/21/18 00:23 Dose: 0.1 mg Guaifenesin/Dextromethorphan (Robitussin Dm) 10 ml PO TID PRN PRN Reason: Cough Last Admin: 02/21/18 00:50 Dose: 10 ml Piperacillin Sod/Tazobactam (Sod 2.25 gm/ Sodium Chloride) 100 mls @ 100 mls/ hr IVPB Q8 [facility] PRN Reason: Protocol Last Admin: 02/21/18 00:24 Dose: 100 mls/hr Mirtazapine (Remeron) 7.5 mg PO HS [facility] - Labs Labs: 02/21/18 05:20 02/21/18 05:20 PT 10.6 Seconds (9.8-13.1) 02/19/18 08:20 INR 1.0 02/19/18 08:20 APTT 25.4 Seconds (25.6-37.1) L 02/19/18 08:20 - Constitutional Appears: No Acute Distress - ENT Exam ENT Exam: Mucous Membranes Moist - Neck Exam Neck Exam: absent: Lymphadenopathy - Respiratory Exam Respiratory Exam: absent: Chest Wall Tenderness - Cardiovascular Exam Cardiovascular Exam: absent: JVD, RRR, Rubs - GI/Abdominal Exam GI & Abdominal Exam: Soft, Normal Bowel Sounds - Extremities Exam Extremities Exam: absent: Calf Tenderness - Back Exam Back Exam: absent: CVA tenderness (L), CVA tenderness (R) - Neurological Exam Neurological Exam: Alert - Psychiatric Exam Psychiatric exam: Agitated - Skin Skin Exam: absent: Cyanosis Assessment and Plan (1) Chronic kidney disease requiring chronic dialysis Assessment & Plan: end stage renal disease patient receiving dialysis 3 times a week when she is inpatient however she does not show up to dialysis as outpatient and she keep coming back. Hypertension History of hyperphosphatemia Secondary hyperparathyroidism Anemia dementia The plan I discussed with the son again today and the plan and he said out of his hand because she is not cooperating . scheduled for hemodialysis Status: Acute (2) Acute pulmonary edema Status: Acute
[2018-02-21] MEDS ORDERED: Aminophylline 25 mg/ml Inj ONE (10:24)
--- NOTE | 2018-02-21 12:55 | PN ---
Copied To: Darnell Rosado MD Attending MD: Darnell Rosado MD DATE: 02/21/2018 SUBJECTIVE: The patient seen and examined. Interim events noted. Consults noted and appreciated. Cardiology and Nephrology followup and interventions noted and appreciated. The patient is now on regular medical floor. The patient feels okay. Complains of occasional cough. Also was not able to sleep well, but denies any chest pain or shortness of breath. PHYSICAL EXAMINATION: GENERAL: The patient is in no acute distress. VITAL SIGNS: Stable. HEART: S1, S2. Normal and regular. LUNGS: Good bilateral air exchange. ABDOMEN: Soft and nontender. EXTREMITIES: No edema. No calf swelling. No tenderness. No acute ischemia. 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 DIAGNOSTIC DATA: Available diagnostic data reviewed. ASSESSMENT AND PLAN: The patient is tentatively scheduled for stress test and dialysis today. Psychiatric followup and intervention noted and appreciated. Plan as ordered. Darnell Rosado MD
[2018-02-21] MEDS: Lidocaine/Prilocaine CREAM 5GM TP ONE ×2 (14:10→16:24)
[2018-02-21 16:15] VITALS: RESP 20
[2018-02-22 06:31] LABS: HEMOGLOBIN 10.5 g/dL (12.0-16.0); MEAN CELL VOLUME 88.7 fl (81.0-99.0); MEAN CORPUSCULAR HEMOGLOBIN 29.9 pg (27.0-31.0); MEAN CORPUSCULAR HGB CONC 33.7 g/dL (33.0-37.0); RBC 3.51 Mil/uL (3.80-5.20); RED CELL DISTRIBUTION WIDTH 14.2 % (11.5-14.5)
[2018-02-22 07:13] LABS: ALB/GLOB RATIO 1.5 (1.0-2.1); ALBUMIN 3.6 g/dL (3.5-5.0); CALCIUM 8.4 mg/dL (8.4-10.2)
[2018-02-22 08:37] VITALS: BP 157/61; PULSE 67; TEMP 98.2; O2SAT 96
--- NOTE | 2018-02-22 10:26 | CP.PCM.PN ---
<Mirna Johnson - Last Filed: 02/22/18 12:58> Subjective - Date & Time of Evaluation Date of Evaluation: 02/22/18 Time of Evaluation: 07:50 - Subjective Subjective: Pt seen with Dr. Rosado at bedside this morning. No acute events overnight, no new complains, no chest pain, breathing improved. Objective - Vital Signs/Intake and Output Vital Signs (last 24 hours): Temp Pulse Resp BP Pulse Ox 98.2 F 67 20 157/61 H 96 02/22/18 08:37 02/22/18 09:59 02/22/18 08:37 02/22/18 09:59 02/22/18 08:37 - Medications Medications: Current Medications Acetaminophen (Tylenol 325mg Tab) 650 mg PO Q6 PRN PRN Reason: Pain, Mild (1-3) Last Admin: 02/22/18 09:58 Dose: 650 mg Alprazolam (Xanax) 0.5 mg PO DAILY PRN PRN Reason: Anxiety Last Admin: 02/21/18 16:36 Dose: 0.5 mg Amlodipine Besylate (Norvasc) 5 mg PO DAILY [facility] BEDS AT [facility] Last Admin: 02/22/18 09:59 Dose: 5 mg Atorvastatin Calcium (Lipitor) 20 mg PO DAILY [facility] 234 BEDS AT [facility] Last Admin: 02/22/18 09:58 Dose: 20 mg Calcium Acetate (Phoslo) 667 mg PO TID [facility] 234 BEDS AT THE [facility] Last Admin: 02/22/18 10:04 Dose: 667 mg Clonidine HCl (Catapres) 0.1 mg PO Q8 [facility] 234 BEDS AT THE [facility] Last Admin: 02/22/18 09:58 Dose: 0.1 mg Guaifenesin/Dextromethorphan (Robitussin Dm) 10 ml PO TID PRN PRN Reason: Cough Last Admin: 02/21/18 16:31 Dose: 10 ml Piperacillin Sod/Tazobactam (Sod 2.25 gm/ Sodium Chloride) 100 mls @ 100 mls/ hr IVPB Q8 [facility] PRN Reason: Protocol Last Admin: 02/22/18 10:01 Dose: 100 mls/hr Mirtazapine (Remeron) 7.5 mg PO HS [facility] 234 BEDS AT [facility] Last Admin: 02/21/18 22:50 Dose: 7.5 mg - Labs Labs: 02/22/18 06:10 02/22/18 06:10 PT 10.6 Seconds (9.8-13.1) 02/19/18 08:20 INR 1.0 02/19/18 08:20 APTT 25.4 Seconds (25.6-37.1) L 02/19/18 08:20 - Constitutional Appears: No Acute Distress - Respiratory Exam Respiratory Exam: NORMAL BREATHING PATTERN. absent: Respiratory Distress Additional comments: good air movement bilaterally - Cardiovascular Exam Cardiovascular Exam: REGULAR RHYTHM, +S1, +S2 - GI/Abdominal Exam GI & Abdominal Exam: Soft, Normal Bowel Sounds - Extremities Exam Extremities Exam: Normal Inspection. absent: Calf Tenderness - Neurological Exam Neurological Exam: Alert, Awake - Skin Skin Exam: Dry, Normal Color, Warm Assessment and Plan - Assessment and Plan (Free Text) Assessment: 77 yo F with hx dementia, ESRD on HD, anxiety, hypercholesterolemia admitted for dyspnea due to missed dialysis and fluid overload. Now receiving HD TTS. Plan: - nephrology consult- Dr. Benedict, HD TTS - renal diet - continue with home meds - PT - recommendation for subacute rehab - rest of plan as ordered <Darnell Rosado K - Last Filed: 02/25/18 08:38> Objective - Vital Signs/Intake and Output Vital Signs (last 24 hours): Temp Pulse Resp BP Pulse Ox 98.2 F 67 20 157/61 H 96 02/22/18 08:37 02/22/18 09:59 02/22/18 08:37 02/22/18 09:59 02/22/18 08:37 - Labs Labs: 02/22/18 06:10 02/22/18 06:10 PT 10.6 Seconds (9.8-13.1) 02/19/18 08:20 INR 1.0 02/19/18 08:20 APTT 25.4 Seconds (25.6-37.1) L 02/19/18 08:20 Assessment and Plan - Assessment and Plan (Free Text) Plan: Patient was personally seen and examined by me in rounds with residents. Available labs and diagnostic data reviewed. Case, Patient's condition and management plan discussed with residents in rounds. Agree with resident's progress note. Plan: As ordered.
--- NOTE | 2018-02-22 12:15 | CP.PCM.PN ---
Subjective - Date & Time of Evaluation Date of Evaluation: 02/22/18 Time of Evaluation: 12:14 - Subjective Subjective: patient awake and conscious not in acute distress Objective - Vital Signs/Intake and Output Vital Signs (last 24 hours): Temp Pulse Resp BP Pulse Ox 98.2 F 67 20 157/61 H 96 02/22/18 08:37 02/22/18 09:59 02/22/18 08:37 02/22/18 09:59 02/22/18 08:37 - Medications Medications: Current Medications Acetaminophen (Tylenol 325mg Tab) 650 mg PO Q6 PRN PRN Reason: Pain, Mild (1-3) Last Admin: 02/22/18 09:58 Dose: 650 mg Alprazolam (Xanax) 0.5 mg PO DAILY PRN PRN Reason: Anxiety Last Admin: 02/21/18 16:36 Dose: 0.5 mg Amlodipine Besylate (Norvasc) 5 mg PO DAILY [facility] Last Admin: 02/22/18 09:59 Dose: 5 mg Atorvastatin Calcium (Lipitor) 20 mg PO DAILY [facility] Last Admin: 02/22/18 09:58 Dose: 20 mg Calcium Acetate (Phoslo) 667 mg PO TID [facility] Last Admin: 02/22/18 10:04 Dose: 667 mg Clonidine HCl (Catapres) 0.1 mg PO Q8 [facility] Last Admin: 02/22/18 09:58 Dose: 0.1 mg Guaifenesin/Dextromethorphan (Robitussin Dm) 10 ml PO TID PRN PRN Reason: Cough Last Admin: 02/21/18 16:31 Dose: 10 ml Piperacillin Sod/Tazobactam (Sod 2.25 gm/ Sodium Chloride) 100 mls @ 100 mls/ hr IVPB Q8 [facility] PRN Reason: Protocol Last Admin: 02/22/18 10:01 Dose: 100 mls/hr Mirtazapine (Remeron) 7.5 mg PO HS [facility] Last Admin: 02/21/18 22:50 Dose: 7.5 mg - Labs Labs: 02/22/18 06:10 02/22/18 06:10 PT 10.6 Seconds (9.8-13.1) 02/19/18 08:20 INR 1.0 02/19/18 08:20 APTT 25.4 Seconds (25.6-37.1) L 02/19/18 08:20 - Constitutional Appears: No Acute Distress - Eye Exam Eye Exam: Conjunctival injection - ENT Exam ENT Exam: Mucous Membranes Moist - Neck Exam Neck Exam: absent: Lymphadenopathy - Respiratory Exam Respiratory Exam: absent: Chest Wall Tenderness - Cardiovascular Exam Cardiovascular Exam: absent: Gallop, JVD, Rubs - GI/Abdominal Exam GI & Abdominal Exam: Soft, Normal Bowel Sounds - Extremities Exam Extremities Exam: absent: Calf Tenderness - Back Exam Back Exam: absent: CVA tenderness (L), CVA tenderness (R) - Neurological Exam Neurological Exam: Alert - Psychiatric Exam Psychiatric exam: Normal Affect - Skin Skin Exam: absent: Cyanosis Assessment and Plan (1) Chronic kidney disease requiring chronic dialysis Assessment & Plan: end stage renal disease patient receiving dialysis 3 times a week when she is inpatient however she does not show up to dialysis as outpatient and she keep coming back. Hypertension History of hyperphosphatemia Secondary hyperparathyroidism Anemia dementia The plan I discussed with the son again today and the plan and he said out of his hand because she is not cooperating . scheduled for hemodialysis TTS Status: Acute (2) Acute pulmonary edema Status: Acute
--- NOTE | 2018-02-22 13:42 | CARD ---
APPROVED REPORT Date of service: 02/21/2018 Protocol: LEXISCAN Test Type: LEXISCAN Medications: TYLENOL 325MG, ALPRAZOLAM 0.5MG, AMLODIPINE 5MG, ATORVASTATIN 20MG, CALCIUM 667MG CLONIDINE 0.1MG, GUAIFENESIN 10ML. PIPERACILLIN 100ML. Medical History: HD, ANEMIA, ANXIETY, HYPERCHOLESTEROLEMIA, DEMENTIA, PUL. EDEMA APPENDECTOMY, TONSILLECTOMY, ALZHEIMERS, Target HR: 141 bpm Resting ECG: left ventricular hypertrophy Resting Heart Rate: 78 bpm Resting Blood Pressure: 147/53mmHg submaximum (85%): 120 bpm TEST SUMMARY PREINJECTPRE-[id number]. [id number]. INJECTIONNS FLUSH00:[id number]/[id number]. INJECTIONNUC MED00:[id number]. [id number]. PROCEDURE Pharmacologic stress testing was performed using 0.4mg per 5ml of regadenoson given intravenously over 7-10 seconds. POST EXERCISE Reason for Termination: Patient unable to walk on treadmill Target HR: No Max HR: 75 bpm 68% of Maximum Predicted HR: 141 bpm Exercise duration: 01:00 min:sec, 0 Stage Exercise capacity: 1.0METs Max Blood Pressure: 171/73mmHg Blood Pressure response to exercise: resting hypertension - exaggerated response Heart Rate response to exercise: appropriate Chest Pain: No, none Angina index: 0 Arrhythmia: Yes, ventricular premature beats ST Change: Yes, Depression downsloping Deviation: 0 mm Clinical Indications Under Appropriate Use Criteria Patient has history of status post pulmonary edema and she is unable to walk. She has renal failure and severe hyperension for years. No chest pain Stress EKG Interpretation Sinus rhythm with severe left ventricular hypertrophy RESTING ECG Rhythm: Sinus Conduction: Normal Arrhythmias: None Repolarization: ST depression STRESS ECG Rhythm: Sinus Tachycardia Conduction: Normal Arrhythmias: None Repolarization: ST depression ST-Segment changes: Nondiagnostic resting ST abnormalities. ST-Segment Configuration: Downsloping Stress EKG shows no significant changes. EXAM: Myocardial Perfusion REST/STRESS Image QualityGood Imaging Protocol The imaging protocol used to acquire images was Rest Tc-99m/stress Tc-99m 1 day Rest Spect myocardial perfusion imaging was performed in supine position 45 minutes following the injection of 10 mCi of Tc-99 Myoview. Time of rest injection: 8:00 Time of rest imagin:45 At peak stress, the patient was injected intravenously with 30mCi of Tc-99 tetrofosmin after an infusion time of minutes and seconds. Time of stress injection: 10:46 Time of stress imagin:40 Gated Stress Spect was performed 100 minutes after intravenous Tc-99 Myoview injection. The images were gated to evaluate regional wall motion and calculate ventricular ejection fraction. NUCLEAR IMAGE INTERPRETATION LV Perfusion No evidence of perfusion defects. LV Perfusion 1 The rest and stress images show normal perfusion. Wall Motion Motion shows global hypokinesia of the left ventricle. CONCLUSION 1. 1- No evidence of perfusion defects (no evidence of stress indiuce myocardial ischemia( 2. 2- Global hypokiensia with reduction fo the left ventricular ejection fraction 25 to 30%
--- NOTE | 2018-02-22 15:28 | CP.PCM.PCO ---
Assessment/Plan - Assessment/Plan Assessment (Free Text): Pt stable, seen and cleared for d/c by all consultants. Pt refusing to go to [facility]. Per Dr. Lloyd, pt does not have capacity to make medical decisions. Explained this to son and daughter at bedside. They understand that pt not able to make own decisions but they state they cannot force the patient onto the stretcher to go to rehab when pt keeps refusing. Pt's daughter states she has gone through this several times and pt will not even go to HD when she offers to drive patient. Daughter and son state they will take patient home. Dr. Rosado made aware. Pt to be discharged home. Outpatient HD to be reinstated by [facility].
--- NOTE | 2018-02-26 07:01 | PQF ---
PROVIDER RESPONSE TEXT: Other, fluid overload from missing dialysis REVIEWER QUERY TEXT: CHF Acuity and Type Congestive Heart Failure is documented in the Medical Record. Please document the type and acuity (in cludes probable or suspected) Such as: Type: -- Systolic -- Diastolic -- Combined -- Other, please specify Acuity: -- Acute -- Chronic -- Acute on chronic -- Other, please specify Also please document the underlying cause of the CHF (includes probable or suspected) The patient's Clinical Indicators include: ED Physician Documentation Report documented chf exacerbation Query created by: Marcy Bro on 02/24/2018 3:38 PM Electronically signed by: Darnell Rosado 02/26/2018 6:57 AM
== END 2018-02-22 15:55 | disposition home or self-care (01) | DRG 640 ==
LOC: H.ER 07:53 → H.ERHOLD 11:27 → H.ICU/CCU 13:18 → H.MEDSURG1 02-20 16:05
PROVIDERS: ADMIT Internal Medicine; ATTEND Internal Medicine
PROC: 5A09457 Assistance with Respiratory Ventilation, 24-96 Consecutive Hours, Continuous Positive Airway Pressure (ICD-10-PCS; 2018-02-19)
PROC: 5A1D70Z Performance of Urinary Filtration, Intermittent, Less than 6 Hours Per Day (ICD-10-PCS; principal; 2018-02-21)
DX: E87.70 Fluid overload, unspecified (principal); N18.6 End stage renal disease; N25.81 Secondary hyperparathyroidism of renal origin; N17.9 Acute kidney failure, unspecified; I12.0 Hypertensive chronic kidney disease with stage 5 chronic kidney disease or end stage renal disease; Z91.15 Patient's noncompliance with renal dialysis; Z99.2 Dependence on renal dialysis; E78.00 Pure hypercholesterolemia, unspecified; E87.5 Hyperkalemia; R00.0 Tachycardia, unspecified; G30.9 Alzheimer's disease, unspecified; F02.80 Dementia in other diseases classified elsewhere, unspecified severity, without behavioral disturbance, psychotic disturbance, mood disturbance, and anxiety; E78.5 Hyperlipidemia, unspecified; F41.9 Anxiety disorder, unspecified; R06.03 Acute respiratory distress; G47.00 Insomnia, unspecified; F06.30 Mood disorder due to known physiological condition, unspecified; D64.9 Anemia, unspecified

== ENCOUNTER 2018-03-14 09:57 | Inpatient (IN) | payer MEDICARE ==
[2018-03-14 09:57] VITALS: BMI 25.7
--- NOTE | 2018-03-14 10:24 | ED PDOC ---
HPI: General Adult Time Seen by Provider: 03/14/18 10:10 Chief Complaint (Nursing): Abnormal Labs Chief Complaint (Provider): abnormal labs History Per: Patient History/Exam Limitations: no limitations Onset/Duration Of Symptoms: Hrs (today) Current Symptoms Are (Timing): Still Present Additional Complaint(s): Saba Cohen is a 77 year old female, with a past medical history of HTN, Alzheimers disease, anemia and end stage renal disease, who was sent to the emergency by PMD for elevated potassium. Patient is on dialysis but stopped x2 weeks ago. Patient currently has no medical complaints. PMD: [place] Past Medical History Reviewed: Historical Data, Nursing Documentation, Vital Signs Vital Signs: Last Vital Signs Temp 98.3 F 03/15/18 19:58 Pulse 83 03/15/18 19:58 Resp 18 03/15/18 19:58 BP 146/56 L 03/15/18 19:58 Pulse Ox 98 03/15/18 19:58 - Medical History PMH: Alzheimer's Disease, Anemia, Anxiety, CHF, Dementia, HTN, Hypercholesterolemia, Pneumonia, End Stage Renal Disease, Chronic Kidney Disease Denies: HIV, Kidney Stones, Schizophrenia - Surgical History Surgical History: Appendectomy, Tonsillectomy - Family History Family History: States: Unknown Family Hx, Hypertension - Social History Current smoker - smoking cessation education provided: No Alcohol: None Drugs: Denies - Immunization History Hx Tetanus Toxoid Vaccination: No Hx Influenza Vaccination: No Hx Pneumococcal Vaccination: No - Home Medications Home Medications: Ambulatory Orders Medication Instructions Recorded Atorvastatin [Lipitor] 20 mg PO DAILY 08/16/16 Labetalol [Trandate] 100 mg PO BID 08/16/16 amLODIPine [Norvasc] 5 mg PO DAILY 08/16/16 Calcium Carbonate [Oscal] 500 mg PO TID 10/16/17 Alprazolam [Xanax] 0.5 mg PO DAILY PRN 01/24/18 Lisinopril [Zestril] 5 mg PO DAILY 01/24/18 Mirtazapine [Remeron] 7.5 mg PO HS tab 02/22/18 - Allergies Allergies/Adverse Reactions: Allergies Allergy/AdvReac Type Severity Reaction Status Date / Time No Known Allergies Allergy Verified 02/19/18 08:06 Review of Systems ROS Statement: Except As Marked, All Systems Reviewed And Found Negative Physical Exam - Reviewed Nursing Documentation Reviewed: Yes Vital Signs Reviewed: Yes - Physical Exam Appears: Positive for: No Acute Distress Head Exam: Positive for: ATRAUMATIC, NORMAL INSPECTION, NORMOCEPHALIC Skin: Positive for: Normal Color, Warm, Dry Eye Exam: Positive for: Normal appearance, EOMI, PERRL Neck: Positive for: Painless ROM Cardiovascular/Chest: Positive for: Regular Rate, Rhythm. Negative for: Murmur Respiratory: Positive for: Normal Breath Sounds. Negative for: Respiratory Distress Gastrointestinal/Abdominal: Positive for: Normal Exam, Soft. Negative for: Tenderness Back: Positive for: Normal Inspection. Negative for: L CVA Tenderness, R CVA Tenderness, Vertebral Tenderness Extremity: Positive for: Normal ROM (upper and lower extremities). Negative for : Tenderness, Deformity, Swelling Neurologic/Psych: Positive for: Alert, Oriented. Negative for: Motor/Sensory Deficits - Laboratory Results Result Diagrams: 03/14/18 10:43 03/15/18 05:20 - ECG ECG Rhythm: Positive for: Sinus Rhythm (no ectopy no acute changes; qrs wnl) - Progress ED Course And Treament: CXR: cardiomegaly Noted Potassium 5.8 Insulin 10 units iv 1 am d50 iv d/w Dr. Dooley d/w Dr. Benedict Medical Decision Making Medical Decision Making: Initial Impression: Elevated potassium Initial Plan: --EKG --BMP --Magnesium --Phosphorus --CBC w/ differential --Chest one view [RAD] --Reevaluation ----- Scribe Attestation: Documented by Pedro Estrada, acting as a scribe for Shavon Desai PA-C. Provider Scribe Attestation: All medical record entries made by the Scribe were at my direction and personally dictated by me. I have reviewed the chart and agree that the record accurately reflects my personal performance of the history, physical exam, medical decision making, and the department course for this patient. I have also personally directed, reviewed, and agree with the discharge instructions and disposition. Disposition - Clinical Impression Clinical Impression: Renal failure, Missed dialysis, Hyperkalemia - Patient ED Disposition Is Patient to be Admitted: Yes - Disposition Disposition Time: 12:30 Condition: FAIR - Pt Status Changed To: Hospital Disposition Of: Inpatient - Admit Certification Admit to Inpatient:: After my assessment, the patient will require hospitalization for at least two midnights. This is because of the severity of symptoms shown, intensity of services needed, and/or the medical risk in this patient being treated as an outpatient.
[2018-03-14 10:50] LABS: BASO # 0.1 K/uL (0.0-0.2); BASO % 1.8 % (0.0-2.0); EOS # 0.4 K/uL (0.0-0.7); EOS % 8.5 % (0.0-4.0); HEMOGLOBIN 9.5 g/dL (12.0-16.0); LYMPH % 23.4 % (20.0-40.0); MEAN CELL VOLUME 89.7 fl (81.0-99.0); MEAN CORPUSCULAR HEMOGLOBIN 29.6 pg (27.0-31.0); MEAN PLATELET VOLUME 10.5 fl (7.2-11.7); MONO # 0.5 K/uL (0.0-0.8); MONO % 12.5 % (0.0-10.0); NEUT # 2.3 K/uL (1.8-7.0); NEUT % 53.8 % (50.0-75.0); NRBC % 0.1 % (0.0-0.0); RBC 3.21 Mil/uL (3.80-5.20); RED CELL DISTRIBUTION WIDTH 14.8 % (11.5-14.5); WHITE BLOOD COUNT 4.3 K/uL (4.8-10.8)
[2018-03-14 11:13] LABS: CALCIUM 9.1 mg/dL (8.4-10.2)
[2018-03-14] MEDS ORDERED: Sod Polystyrene Sulf 15 gm/60 ml Susp PO ONE (11:16)
[2018-03-14] MEDS ORDERED: Dextrose 50% SYRINGE Inj (50 ml) IVP ONE (11:16)
--- NOTE | 2018-03-14 11:18 | RAD ---
Date of service: 03/14/2018 PROCEDURE: CHEST RADIOGRAPH, 1 VIEW HISTORY: missed dialysis COMPARISON: None available. FINDINGS: LUNGS: The lungs are well inflated and clear. There is a calcified nodule in the left mid lung. PLEURA: No pneumothorax. Small effusions. CARDIOVASCULAR: There is moderate cardiomegaly. OSSEOUS STRUCTURES: No significant abnormalities. VISUALIZED UPPER ABDOMEN: Normal. OTHER FINDINGS: None. IMPRESSION: Moderate cardiomegaly and small effusions. No active pulmonary disease.
[2018-03-14] MEDS ORDERED: Insulin Regular 100 units/ml IV STA (11:19)
[2018-03-14] MEDS ORDERED: Dextrose 50% SYRINGE Inj (50 ml) ONE (11:46)
[2018-03-14] MEDS ORDERED: Insulin Regular 100 units/ml ONE (11:46)
[2018-03-14] MEDS ORDERED: Sod Polystyrene Sulf 15 gm/60 ml Susp ONE (11:47)
--- NOTE | 2018-03-14 19:06 | CARD ---
APPROVED REPORT Date of service: 03/14/2018 <Conclusion> Sinus rhythm with 1st degree AV block Possible Left atrial enlargement T wave abnormality, consider lateral ischemia Abnormal ECG
[2018-03-15 06:14] LABS: CALCIUM 8.6 mg/dL (8.4-10.2)
[2018-03-15] MEDS: Lidocaine 5% Patch TD SCH (12:01)
--- NOTE | 2018-03-15 12:46 | CP.PCM.HP ---
History of Present Illness - History of Present Illness History of Present Illness: CC: Hyperkalemia. 77 y/o F, Pt with multiple chronic medical conditions, including ESRD on HD, CHF , Alzheimer. Pt was referred by her PMD in AM DOA to [facility], to be evaluated for abnormal lab result that were done as outside PT, revealing increased level of Potassium. Worsening symptoms: Missed last 2 weeks of HD. While on evaluation in the ED, found wit sinus rhythm with 1st AV block on EKG. Aggravated factor: Hx of refusing HD Tx several times. Pt denied: Fever, chills n/v/d, abdominal pain, CP, palpitations, numbness, syncope, SOB, cough, sick contact, recent travel out of [place]. CXR: Small effusion, calcified nodule left mid lung, moderate Cardiomegaly. Present on Admission - Present on Admission Any Indicators Present on Admission: No Past Patient History - Infectious Disease Hx of Infectious Diseases: None - Tetanus Immunizations Tetanus Immunization: Unknown - Past Medical History & Family History Past Medical History?: Yes - Past Social History Smoking Status: Never Smoked - CARDIAC Hx Congestive Heart Failure: Yes Hx Hypercholesterolemia: Yes Hx Hypertension: Yes - PULMONARY Hx Pneumonia: Yes - NEUROLOGICAL Hx Alzheimer's Disease: Yes Hx Dementia: Yes - HEENT Hx HEENT Problems: No - RENAL Hx Chronic Kidney Disease: Yes - ENDOCRINE/METABOLIC Hx Endocrine Disorders: No - HEMATOLOGICAL/ONCOLOGICAL Hx Anemia: Yes Hx Human Immunodeficiency Virus (HIV): No - INTEGUMENTARY Hx Dermatological Problems: No - MUSCULOSKELETAL/RHEUMATOLOGICAL Hx Falls: Yes - GASTROINTESTINAL Hx Gastrointestinal Disorders: Yes Hx Constipation: Yes - GENITOURINARY/GYNECOLOGICAL Hx Genitourinary Disorders: Yes - PSYCHIATRIC Hx Anxiety: Yes Hx Schizophrenia: No Hx Substance Use: No - SURGICAL HISTORY Hx Appendectomy: Yes Hx Tonsillectomy: Yes - ANESTHESIA Hx Anesthesia: Yes Hx Anesthesia Reactions: No Hx Malignant Hyperthermia: No Meds Allergies/Adverse Reactions: Allergies Allergy/AdvReac Type Severity Reaction Status Date / Time No Known Allergies Allergy Verified 02/19/18 08:06 Results - Vital Signs Recent Vital Signs: Last Vital Signs Temp 98 F 03/15/18 12:29 Pulse 64 03/15/18 12:29 Resp 18 03/15/18 12:29 BP 147/56 L 03/15/18 12:29 Pulse Ox 98 03/15/18 12:29 - Labs Result Diagrams: 03/14/18 10:43 03/15/18 05:20 Labs: Laboratory Results - last 24 hr 03/15/18 05:20 Sodium 137 Potassium 3.9 Chloride 99 Carbon Dioxide 30 Anion Gap 12 BUN 33 H Creatinine 2.8 H Est GFR ( Amer) 20 Est GFR (Non-Af Amer) 16 Random Glucose 84 Calcium 8.6
--- NOTE | 2018-03-15 14:10 | CP.PCM.HP ---
History of Present Illness - History of Present Illness History of Present Illness: CC: Hyperkalemia. This H&P was done on 03-15. 77 y/o F, Hx of Alzheimer/Dementia, ESRD on HD, CHF, referred by her PMD on DOA (03-14-18)to [facility] to be evaluated for increased Potassium level in a lab test that was done as out Pt. Pt came accompany by her son and was admitted. Worsening symptoms: Missed last 2 HD Tx. Found with Sinus rhythm with 1st degree AV block on EKG. Aggravated factor: Extended Hx of refuse HD Tx. No: Fever, chills, n/v/d, abdominal pain, dysuria, CP, palpitations, syncope, numbness, SOB, cough, sick contact, recent travel out of [place]. CXR shows: Small effusion, calcified nodule left mid lung, moderate Cardiomegaly. MPScan 02-22-18: no perfusion defects, global hypokynesia, LVEF 25- 30% Present on Admission - Present on Admission Any Indicators Present on Admission: No Review of Systems - Constitutional Constitutional: Weakness - EENT Eyes: Requires Corrective Lenses Ears: Other (negative) Nose/Mouth/Throat: Other (negative) - Cardiovascular Cardiovascular: Other (negative) - Respiratory Respiratory: Other (negative) - Gastrointestinal Gastrointestinal: Other (negative) - Genitourinary Genitourinary: Other (negative) - Musculoskeletal Musculoskeletal: Abnormal Gait - Integumentary Integumentary: Other (negative) - Neurological Neurological: Confusion - Psychiatric Psychiatric: Anxiety - Endocrine Endocrine: Other (egative) - Hematologic/Lymphatic Hematologic: Other (negative) Past Patient History - Infectious Disease Hx of Infectious Diseases: None - Tetanus Immunizations Tetanus Immunization: Unknown - Past Medical History & Family History Past Medical History?: Yes Pertinent Family History: HTN - Past Social History Smoking Status: Never Smoked Alcohol: None Drugs: Denies Home Situation {Lives}: Alone - CARDIAC Hx Cardiac Disorders: Yes Hx Congestive Heart Failure: Yes Hx Hypercholesterolemia: Yes Hx Hypertension: Yes - PULMONARY Hx Respiratory Disorders: Yes Hx Pneumonia: Yes - NEUROLOGICAL Hx Neurological Disorder: Yes Hx Alzheimer's Disease: Yes Hx Dementia: Yes - HEENT Hx HEENT Problems: No - RENAL Hx Chronic Kidney Disease: Yes - ENDOCRINE/METABOLIC Hx Endocrine Disorders: No - HEMATOLOGICAL/ONCOLOGICAL Hx Blood Disorders: Yes Hx Anemia: Yes Hx Human Immunodeficiency Virus (HIV): No - INTEGUMENTARY Hx Dermatological Problems: No - MUSCULOSKELETAL/RHEUMATOLOGICAL Hx Musculoskeletal Disorders: No Hx Falls: No - GASTROINTESTINAL Hx Gastrointestinal Disorders: Yes Hx Constipation: Yes - GENITOURINARY/GYNECOLOGICAL Hx Genitourinary Disorders: Yes - PSYCHIATRIC Hx Psychophysiologic Disorder: Yes Hx Anxiety: Yes Hx Schizophrenia: No Hx Substance Use: No - SURGICAL HISTORY Hx Surgeries: Yes Hx Appendectomy: Yes Hx Tonsillectomy: Yes - ANESTHESIA Hx Anesthesia: Yes Hx Anesthesia Reactions: No Hx Malignant Hyperthermia: No Meds Allergies/Adverse Reactions: Allergies Allergy/AdvReac Type Severity Reaction Status Date / Time No Known Allergies Allergy Verified 02/19/18 08:06 Physical Exam - Constitutional Appears: No Acute Distress - Head Exam Head Exam: NORMAL INSPECTION - Eye Exam Eye Exam: PERRL - ENT Exam ENT Exam: Normal Oropharynx - Neck Exam Neck exam: Positive for: Normal Inspection - Respiratory Exam Respiratory Exam: NORMAL BREATHING PATTERN - Cardiovascular Exam Cardiovascular Exam: REGULAR RHYTHM, Systolic Murmur - GI/Abdominal Exam GI & Abdominal Exam: Normal Bowel Sounds, Soft - Extremities Exam Extremities exam: Positive for: normal inspection - Back Exam Back exam: NORMAL INSPECTION - Neurological Exam Neurological exam: Alert Additional comments: Ox2, follows commands. - Psychiatric Exam Psychiatric exam: Anxious - Skin Skin Exam: Normal Color, Warm Results - Vital Signs Recent Vital Signs: Last Vital Signs Temp 98 F 03/15/18 12:29 Pulse 64 03/15/18 12:29 Resp 18 03/15/18 12:29 BP 147/56 L 03/15/18 12:29 Pulse Ox 98 03/15/18 12:29 reviewed J.P. - Labs Result Diagrams: 03/21/18 11:26 03/22/18 11:18 Labs: Laboratory Results - last 24 hr 03/15/18 05:20 Sodium 137 Potassium 3.9 Chloride 99 Carbon Dioxide 30 Anion Gap 12 BUN 33 H Creatinine 2.8 H Est GFR ( Amer) 20 Est GFR (Non-Af Amer) 16 Random Glucose 84 Calcium 8.6 reviewed J.P. - EKG Data EKG comments: reviewed J.P. - Imaging and Cardiology Chest x-ray Status: Report reviewed by me (Carole) Assessment & Plan (1) Hyperkalemia Status: Resolved Priority: High (2) ESRD (end stage renal disease) on dialysis Status: Chronic Priority: High (3) Noncompliance of patient with renal dialysis Status: Acute Priority: High (4) Hypertension Status: Chronic Priority: High (5) CHF (congestive heart failure) Assessment and Plan: Acute on Chronic systolic, LVEF 25 o 30% Status: Chronic Priority: Medium (6) Dyslipidemia Status: Chronic (7) Dementia Status: Chronic Priority: Medium - Assessment and Plan (Free Text) Plan: F/U U C-S, continue Norvasc, Heparin, Lipitor, [place], Renal consult, HD, PT eval. - Date & Time Date: 03/15/18 Time: 11:30
--- NOTE | 2018-03-15 15:14 | CP.PCM.CON ---
History of Present Illness - History of Present Illness History of Present Illness: patient is a 77 years of age female that to has not been showing up for outpatient dialysis and that and she keep coming to the emergency room for stat dialysis. Patient came with shortness of breath and difficulty breathing because she has not been receiving dialysis and she has been doing that repeatedly and does not show up outpatient for dialysis. Patient has a of hypertension hyperphosphatemia secondary hyperparathyroidism and numerous of admission because she comes here to the hospital every 10 days or so for acute dialysis Review of Systems - Review of Systems Systems not reviewed;Unavailable: Respiratory Distress - Constitutional Constitutional: Anorexia. absent: Chills - Cardiovascular Cardiovascular: Dyspnea, Dyspnea on Exertion. absent: Chest Pain - Respiratory Respiratory: Cough, Dyspnea - Gastrointestinal Gastrointestinal: absent: Abdominal Pain, Coffee Ground Emesis - Genitourinary Genitourinary: Nocturia - Musculoskeletal Musculoskeletal: absent: Back Pain, Numbness - Integumentary Integumentary: absent: Acne - Neurological Neurological: absent: Confusion, Dizziness, Focal Weakness - Endocrine Endocrine: Fatigue - Hematologic/Lymphatic Hematologic: absent: Easy Bleeding Past Patient History - Infectious Disease Hx of Infectious Diseases: None - Tetanus Immunizations Tetanus Immunization: Unknown - Past Medical History & Family History Past Medical History?: Yes - Past Social History Smoking Status: Never Smoked Alcohol: None Drugs: Denies Home Situation {Lives}: Alone - CARDIAC Hx Cardiac Disorders: Yes Hx Congestive Heart Failure: Yes Hx Hypercholesterolemia: Yes Hx Hypertension: Yes - PULMONARY Hx Respiratory Disorders: Yes Hx Pneumonia: Yes - NEUROLOGICAL Hx Neurological Disorder: Yes Hx Alzheimer's Disease: Yes Hx Dementia: Yes - HEENT Hx HEENT Problems: No - RENAL Hx Chronic Kidney Disease: Yes - ENDOCRINE/METABOLIC Hx Endocrine Disorders: No - HEMATOLOGICAL/ONCOLOGICAL Hx Blood Disorders: Yes Hx Anemia: Yes Hx Human Immunodeficiency Virus (HIV): No - INTEGUMENTARY Hx Dermatological Problems: No - MUSCULOSKELETAL/RHEUMATOLOGICAL Hx Musculoskeletal Disorders: No Hx Falls: No - GASTROINTESTINAL Hx Gastrointestinal Disorders: Yes Hx Constipation: Yes - GENITOURINARY/GYNECOLOGICAL Hx Genitourinary Disorders: Yes - PSYCHIATRIC Hx Psychophysiologic Disorder: Yes Hx Anxiety: Yes Hx Schizophrenia: No Hx Substance Use: No - SURGICAL HISTORY Hx Surgeries: Yes Hx Appendectomy: Yes Hx Tonsillectomy: Yes - ANESTHESIA Hx Anesthesia: Yes Hx Anesthesia Reactions: No Hx Malignant Hyperthermia: No Meds Allergies/Adverse Reactions: Allergies Allergy/AdvReac Type Severity Reaction Status Date / Time No Known Allergies Allergy Verified 02/19/18 08:06 - Medications Medications: Current Medications Alprazolam (Xanax) 0.5 mg PO DAILY PRN PRN Reason: Anxiety Last Admin: 03/14/18 20:59 Dose: 0.5 mg Amlodipine Besylate (Norvasc) 5 mg PO DAILY [facility] Last Admin: 03/15/18 08:26 Dose: 5 mg Atorvastatin Calcium (Lipitor) 20 mg PO DAILY [facility] Last Admin: 03/15/18 08:27 Dose: 20 mg Calcium Carbonate (Oscal) 500 mg PO TID [facility] Last Admin: 03/15/18 08:26 Dose: 500 mg Diphenhydramine HCl (Benadryl) 50 mg PO 08 PRN PRN Reason: Itching / Pruritus Last Admin: 03/15/18 08:26 Dose: 50 mg Heparin Sodium (Porcine) (Heparin) 5,000 units SC Q12 [facility] PRN Reason: Protocol Last Admin: 03/15/18 08:27 Dose: 5,000 units Labetalol HCl (Trandate) 100 mg PO BID [facility] Last Admin: 03/15/18 08:26 Dose: 100 mg Lidocaine (Lidoderm) 1 ea TD DAILY [facility] Last Admin: 03/15/18 12:01 Dose: 1 ea Mirtazapine (Remeron) 7.5 mg PO HS [facility] Last Admin: 03/14/18 21:01 Dose: 7.5 mg Physical Exam - Constitutional Appears: No Acute Distress - ENT Exam ENT Exam: Mucous Membranes Moist - Neck Exam Neck exam: Negative for: Lymphadenopathy - Respiratory Exam Respiratory Exam: NORMAL BREATHING PATTERN. absent: Chest Wall Tenderness - Cardiovascular Exam Cardiovascular Exam: REGULAR RHYTHM. absent: JVD, Rubs - GI/Abdominal Exam GI & Abdominal Exam: absent: Guarding - Extremities Exam Extremities exam: Negative for: calf tenderness, pedal edema - Back Exam Back exam: absent: CVA tenderness (L), CVA tenderness (R) - Neurological Exam Neurological exam: Alert - Psychiatric Exam Psychiatric exam: Normal Affect Results - Vital Signs Recent Vital Signs: Last Vital Signs Temp 98 F 03/15/18 12:29 Pulse 64 03/15/18 12:29 Resp 18 03/15/18 12:29 BP 147/56 L 03/15/18 12:29 Pulse Ox 98 03/15/18 12:29 - Labs Result Diagrams: 03/14/18 10:43 03/15/18 05:20 Labs: Laboratory Results - last 24 hr 03/15/18 05:20 Sodium 137 Potassium 3.9 Chloride 99 Carbon Dioxide 30 Anion Gap 12 BUN 33 H Creatinine 2.8 H Est GFR ( Amer) 20 Est GFR (Non-Af Amer) 16 Random Glucose 84 Calcium 8.6 Assessment & Plan - Assessment and Plan (Free Text) Assessment: end stage renal disease on maintenance hemodialysis twice a week but the patient does not show up for outpatient dialysis and she always come to the emergency room when she feels sick and short of breath for acute hemodialysis and this cycle has been going on for in the past more than 6 months Patient completed acute urgent dialysis yesterday and she tolerated very well Continue phosphorus binder and antihypertensive medication multivitamin
[2018-03-16] MEDS: Lidocaine 5% Patch TD SCH (09:19)
--- NOTE | 2018-03-16 10:52 | CP.PCM.PN ---
Subjective - Date & Time of Evaluation Date of Evaluation: 03/16/18 Time of Evaluation: 10:00 - Subjective Subjective: F/U ESRD confused , cooperative Objective - Vital Signs/Intake and Output Vital Signs (last 24 hours): Temp Pulse Resp BP Pulse Ox 98.5 F 89 20 176/81 H 95 03/16/18 08:23 03/16/18 08:23 03/16/18 08:23 03/16/18 08:23 03/16/18 08:23 - Medications Medications: Current Medications Alprazolam (Xanax) 0.5 mg PO DAILY PRN PRN Reason: Anxiety Last Admin: 03/14/18 20:59 Dose: 0.5 mg Amlodipine Besylate (Norvasc) 5 mg PO DAILY [facility] Last Admin: 03/16/18 09:23 Dose: Not Given Atorvastatin Calcium (Lipitor) 20 mg PO DAILY [facility] Last Admin: 03/16/18 09:20 Dose: 20 mg Calcium Carbonate (Oscal) 500 mg PO TID [facility] Last Admin: 03/16/18 09:20 Dose: 500 mg Diphenhydramine HCl (Benadryl) 50 mg PO 08 PRN PRN Reason: Itching / Pruritus Last Admin: 03/15/18 08:26 Dose: 50 mg Heparin Sodium (Porcine) (Heparin) 5,000 units SC Q12 [facility] PRN Reason: Protocol Last Admin: 03/16/18 09:20 Dose: 5,000 units Labetalol HCl (Trandate) 100 mg PO BID [facility] Last Admin: 03/16/18 09:23 Dose: Not Given Lidocaine (Lidoderm) 1 ea TD DAILY [facility] Last Admin: 03/16/18 09:19 Dose: 1 ea Mirtazapine (Remeron) 7.5 mg PO HS [facility] Last Admin: 03/15/18 21:52 Dose: 7.5 mg - Labs Labs: 03/14/18 10:43 03/15/18 05:20 - Constitutional Appears: No Acute Distress - Head Exam Head Exam: NORMAL INSPECTION - Eye Exam Eye Exam: PERRL - ENT Exam ENT Exam: Normal Exam - Neck Exam Neck Exam: Normal Inspection - Respiratory Exam Respiratory Exam: NORMAL BREATHING PATTERN - Cardiovascular Exam Cardiovascular Exam: REGULAR RHYTHM - GI/Abdominal Exam GI & Abdominal Exam: Soft, Normal Bowel Sounds - Extremities Exam Extremities Exam: Normal Inspection - Back Exam Back Exam: NORMAL INSPECTION - Neurological Exam Neurological Exam: Alert Additional comments: Ox2, follows commands, no focal motor/sensory deficit. - Psychiatric Exam Psychiatric exam: Anxious - Skin Skin Exam: Normal Color, Warm Assessment and Plan (1) Hyperkalemia Status: Acute (2) ESRD (end stage renal disease) on dialysis Status: Chronic (3) Noncompliance of patient with renal dialysis Status: Acute (4) Hypertension Status: Chronic (5) CHF (congestive heart failure) Status: Chronic (6) Dyslipidemia Status: Chronic (7) Dementia Status: Chronic - Assessment and Plan (Free Text) Plan: Hyperkalemia resolved , repeat CMP after diaysis in am
--- NOTE | 2018-03-16 20:37 | CP.PCM.PN ---
Subjective - Date & Time of Evaluation Date of Evaluation: 03/16/18 Time of Evaluation: 13:00 - Subjective Subjective: renal follow up note no events overnight vitals reviewed heent normal no jvd op moist s1s2 present no resp distress abd soft no edema ao times 3 no fnd no rash A&P; esrd/htn/sec hyperpth/sob hd tts today per schedule lytes reviewed anemia stable sob is improved bp improved continue calcium carbonate, monitor phos levels Objective - Vital Signs/Intake and Output Vital Signs (last 24 hours): Temp Pulse Resp BP Pulse Ox 97.6 F 84 18 172/83 H 98 03/16/18 19:58 03/16/18 19:58 03/16/18 19:58 03/16/18 19:58 03/16/18 19:58 Intake and Output: 03/16/18 03/17/18 18:59 06:59 Intake Total 860 Balance 860 - Medications Medications: Current Medications Acetaminophen (Tylenol 325mg Tab) 325 mg PO Q4 PRN PRN Reason: Pain, moderate (4-7) Last Admin: 03/16/18 18:54 Dose: 325 mg Alprazolam (Xanax) 0.5 mg PO DAILY PRN PRN Reason: Anxiety Last Admin: 03/14/18 20:59 Dose: 0.5 mg Amlodipine Besylate (Norvasc) 5 mg PO DAILY [facility] Last Admin: 03/16/18 09:23 Dose: Not Given Atorvastatin Calcium (Lipitor) 20 mg PO DAILY [facility] Last Admin: 03/16/18 09:20 Dose: 20 mg Calcium Carbonate (Oscal) 500 mg PO TID [facility] Last Admin: 03/16/18 16:25 Dose: 500 mg Diphenhydramine HCl (Benadryl) 50 mg PO 08 PRN PRN Reason: Itching / Pruritus Last Admin: 03/15/18 08:26 Dose: 50 mg Heparin Sodium (Porcine) (Heparin) 5,000 units SC Q12 [facility] PRN Reason: Protocol Last Admin: 03/16/18 09:20 Dose: 5,000 units Labetalol HCl (Trandate) 100 mg PO BID [facility] Last Admin: 03/16/18 16:25 Dose: Not Given Lidocaine (Lidoderm) 1 ea TD DAILY [facility] Last Admin: 03/16/18 09:19 Dose: 1 ea Mirtazapine (Remeron) 7.5 mg PO HS [facility] Last Admin: 03/15/18 21:52 Dose: 7.5 mg - Labs Labs: 03/14/18 10:43 03/15/18 05:20
[2018-03-17] MEDS: Lidocaine 5% Patch TD SCH (08:49)
[2018-03-17] MEDS ORDERED: Lidocaine/Prilocaine CREAM 5GM TP PRN (10:08)
--- NOTE | 2018-03-17 12:32 | CP.PCM.PN ---
Subjective - Subjective Subjective: restless, agitated previously, refusing dialysis, required Ativan IV, smiling and cooperative now , having dialysis now , Patient'son at bedside Objective - Vital Signs/Intake and Output Vital Signs (last 24 hours): Temp Pulse Resp BP Pulse Ox 98.3 F 69 20 129/90 96 03/17/18 12:30 03/17/18 12:30 03/17/18 12:30 03/17/18 12:30 03/17/18 12:30 - Medications Medications: Current Medications Acetaminophen (Tylenol 325mg Tab) 325 mg PO Q4 PRN PRN Reason: Pain, moderate (4-7) Last Admin: 03/16/18 18:54 Dose: 325 mg Alprazolam (Xanax) 0.5 mg PO DAILY PRN PRN Reason: Anxiety Last Admin: 03/17/18 08:48 Dose: 0.5 mg Amlodipine Besylate (Norvasc) 5 mg PO DAILY [facility] Last Admin: 03/17/18 08:51 Dose: Not Given Atorvastatin Calcium (Lipitor) 20 mg PO DAILY [facility] Last Admin: 03/17/18 08:49 Dose: 20 mg Calcium Carbonate (Oscal) 500 mg PO TID [facility] Last Admin: 03/17/18 08:48 Dose: 500 mg Diphenhydramine HCl (Benadryl) 50 mg PO 08 PRN PRN Reason: Itching / Pruritus Last Admin: 03/16/18 20:35 Dose: 50 mg Heparin Sodium (Porcine) (Heparin) 5,000 units SC Q12 [facility] PRN Reason: Protocol Last Admin: 03/17/18 08:51 Dose: Not Given Labetalol HCl (Trandate) 100 mg PO BID [facility] Last Admin: 03/17/18 08:50 Dose: Not Given Lidocaine (Lidoderm) 1 ea TD DAILY [facility] Last Admin: 03/17/18 08:49 Dose: 1 ea Lidocaine/Prilocaine (Lidocaine/Prilocaine 2.5%-2.5%) 1 applic TP ONCE PRN PRN Reason: only on dialysis days Stop: 03/24/18 10:09 Mirtazapine (Remeron) 7.5 mg PO HS [facility] Last Admin: 03/16/18 21:08 Dose: 7.5 mg - Labs Labs: 03/14/18 10:43 03/15/18 05:20 - Constitutional Appears: No Acute Distress - Eye Exam Eye Exam: PERRL - ENT Exam ENT Exam: Normal Exam - Neck Exam Neck Exam: Normal Inspection - Respiratory Exam Respiratory Exam: Clear to Ausculation Bilateral - Cardiovascular Exam Cardiovascular Exam: REGULAR RHYTHM - GI/Abdominal Exam GI & Abdominal Exam: Soft, Normal Bowel Sounds - Extremities Exam Additional comments: L arm AV fistula - Back Exam Back Exam: NORMAL INSPECTION - Neurological Exam Neurological Exam: Alert, CN II-XII Intact Additional comments: oriented x2, no focal motor/sensory deficit - Psychiatric Exam Psychiatric exam: Normal Affect - Skin Skin Exam: Warm Assessment and Plan (1) Hyperkalemia Status: Resolved (2) ESRD (end stage renal disease) on dialysis Status: Chronic (3) Noncompliance of patient with renal dialysis Status: Acute (4) Hypertension Status: Chronic (5) CHF (congestive heart failure) Status: Chronic (6) Dyslipidemia Status: Chronic (7) Dementia Status: Chronic - Assessment and Plan (Free Text) Plan: continue HD, Trandate, Norvasc, f/u Cardiology consult
[2018-03-17 15:11] LABS: HEMOGLOBIN 10.1 g/dL (12.0-16.0); MEAN CELL VOLUME 86.9 fl (81.0-99.0); MEAN CORPUSCULAR HEMOGLOBIN 29.5 pg (27.0-31.0); MEAN CORPUSCULAR HGB CONC 33.9 g/dL (33.0-37.0); RBC 3.41 Mil/uL (3.80-5.20); RED CELL DISTRIBUTION WIDTH 14.5 % (11.5-14.5); WHITE BLOOD COUNT 2.6 K/uL (4.8-10.8)
[2018-03-17 15:41] LABS: ALB/GLOB RATIO 1.8 (1.0-2.1); ALBUMIN 4.2 g/dL (3.5-5.0); CALCIUM 8.7 mg/dL (8.4-10.2)
--- NOTE | 2018-03-17 16:18 | RAD ---
Date of service: 03/17/2018 HISTORY: sob COMPARISON: No prior. FINDINGS: LUNGS: No active pulmonary disease. PLEURA: Small left pleural effusion. CARDIOVASCULAR: Normal. OSSEOUS STRUCTURES: No significant abnormalities. VISUALIZED UPPER ABDOMEN: Normal. OTHER FINDINGS: None. IMPRESSION: Small left pleural effusion.
--- NOTE | 2018-03-17 21:07 | CP.PCM.CON ---
History of Present Illness - History of Present Illness History of Present Illness: consultation for cp , elevated BNP, chf , sob HPI: 77 yo female with hx of ESRD on HD , noncompliant with dialysis as outpt with multiple recurrent hospitalizations for heart failure secondary to fluid overload from dialysis non-compliance presenting on this admission with CHF exacerbation accompanied with CP. In the past had lengthy discussions with patient regarding evaluation of CAD and CHF but she refuses for any workup. Review of Systems - Review of Systems Systems not reviewed;Unavailable: Acuity of Condition - Constitutional Constitutional: As Per HPI - EENT Eyes: As Per HPI Ears: As Per HPI Nose/Mouth/Throat: As Per HPI - Breasts Breasts: As Per HPI - Cardiovascular Cardiovascular: As Per HPI - Respiratory Respiratory: As Per HPI - Gastrointestinal Gastrointestinal: As Per HPI - Genitourinary Genitourinary: As Per HPI - Reproductive: Female Reproductive:Female: As Per HPI - Menstruation Menstruation: As Per HPI - Musculoskeletal Musculoskeletal: As Per HPI - Integumentary Integumentary: As Per HPI - Neurological Neurological: As Per HPI - Psychiatric Psychiatric: As Per HPI - Endocrine Endocrine: As Per HPI - Hematologic/Lymphatic Hematologic: As Per HPI Past Patient History - Infectious Disease Hx of Infectious Diseases: None - Tetanus Immunizations Tetanus Immunization: Unknown - Past Medical History & Family History Past Medical History?: Yes - Past Social History Alcohol: None Drugs: Denies - CARDIAC Hx Congestive Heart Failure: Yes Hx Hypercholesterolemia: Yes Hx Hypertension: Yes - PULMONARY Hx Pneumonia: Yes - NEUROLOGICAL Hx Alzheimer's Disease: Yes Hx Dementia: Yes - HEENT Hx HEENT Problems: No - RENAL Hx Chronic Kidney Disease: Yes Hx Kidney Stones: No - ENDOCRINE/METABOLIC Hx Endocrine Disorders: No - HEMATOLOGICAL/ONCOLOGICAL Hx Anemia: Yes Hx Human Immunodeficiency Virus (HIV): No - INTEGUMENTARY Hx Dermatological Problems: No - MUSCULOSKELETAL/RHEUMATOLOGICAL Hx Musculoskeletal Disorders: No Hx Falls: No - GASTROINTESTINAL Hx Gastrointestinal Disorders: Yes Hx Constipation: Yes - GENITOURINARY/GYNECOLOGICAL Hx Genitourinary Disorders: Yes - PSYCHIATRIC Hx Anxiety: Yes Hx Schizophrenia: No - SURGICAL HISTORY Hx Appendectomy: Yes Hx Tonsillectomy: Yes - ANESTHESIA Hx Anesthesia: Yes Hx Anesthesia Reactions: No Hx Malignant Hyperthermia: No Meds Allergies/Adverse Reactions: Allergies Allergy/AdvReac Type Severity Reaction Status Date / Time No Known Allergies Allergy Verified 02/19/18 08:06 - Medications Medications: Current Medications Acetaminophen (Tylenol 325mg Tab) 325 mg PO Q4 PRN PRN Reason: Pain, moderate (4-7) Last Admin: 03/17/18 12:33 Dose: 325 mg Alprazolam (Xanax) 0.5 mg PO DAILY PRN PRN Reason: Anxiety Last Admin: 03/17/18 08:48 Dose: 0.5 mg Amlodipine Besylate (Norvasc) 5 mg PO DAILY [facility] Last Admin: 03/17/18 08:51 Dose: Not Given Atorvastatin Calcium (Lipitor) 20 mg PO DAILY [facility] Last Admin: 03/17/18 08:49 Dose: 20 mg Calcium Carbonate (Oscal) 500 mg PO TID [facility] Last Admin: 03/17/18 16:47 Dose: 500 mg Diphenhydramine HCl (Benadryl) 50 mg PO 08 PRN PRN Reason: Itching / Pruritus Last Admin: 03/17/18 16:47 Dose: 50 mg Heparin Sodium (Porcine) (Heparin) 5,000 units SC Q12 [facility] PRN Reason: Protocol Last Admin: 03/17/18 21:02 Dose: 5,000 units Labetalol HCl (Trandate) 100 mg PO BID [facility] Last Admin: 03/17/18 16:47 Dose: 100 mg Lidocaine (Lidoderm) 1 ea TD DAILY [facility] Last Admin: 03/17/18 08:49 Dose: 1 ea Lidocaine/Prilocaine (Lidocaine/Prilocaine 2.5%-2.5%) 1 applic TP ONCE PRN PRN Reason: only on dialysis days Stop: 03/24/18 10:09 Last Admin: 03/17/18 11:00 Dose: 1 applic Mirtazapine (Remeron) 7.5 mg PO HS [facility] Last Admin: 03/17/18 21:01 Dose: 7.5 mg Ondansetron HCl (Zofran Inj) 4 mg IVP Q4 PRN PRN Reason: Nausea/Vomiting Last Admin: 03/17/18 13:39 Dose: 4 mg Physical Exam - Constitutional Appears: Well - Head Exam Head Exam: ATRAUMATIC, NORMAL INSPECTION, NORMOCEPHALIC - Eye Exam Eye Exam: EOMI, Normal appearance, PERRL Pupil Exam: NORMAL ACCOMODATION, PERRL - ENT Exam ENT Exam: Mucous Membranes Moist, Normal Exam - Neck Exam Neck exam: Positive for: Normal Inspection - Respiratory Exam Respiratory Exam: Rales, Rhonchi - Cardiovascular Exam Cardiovascular Exam: REGULAR RHYTHM, +S1, +S2, +S4, Systolic Murmur - GI/Abdominal Exam GI & Abdominal Exam: Normal Bowel Sounds, Soft. absent: Tenderness - Extremities Exam Extremities exam: Positive for: normal inspection - Back Exam Back exam: NORMAL INSPECTION - Neurological Exam Neurological exam: Alert, CN II-XII Intact, Normal Gait, Oriented x3, Reflexes Normal - Psychiatric Exam Psychiatric exam: Normal Affect, Normal Mood - Skin Skin Exam: Dry, Intact, Normal Color, Warm Results - Vital Signs Recent Vital Signs: Last Vital Signs Temp 97.9 F 03/17/18 20:00 Pulse 86 03/17/18 20:00 Resp 20 03/17/18 20:00 BP 166/67 H 03/17/18 20:00 Pulse Ox 97 03/17/18 20:00 - Labs Result Diagrams: 03/17/18 14:39 03/17/18 14:39 Labs: Laboratory Results - last 24 hr 03/17/18 03/17/18 14:39 14:39 WBC 2.6 L RBC 3.41 L Hgb 10.1 L Hct 29.7 L MCV 86.9 D MCH 29.5 MCHC 33.9 RDW 14.5 Plt Count 126 L Sodium 136 Potassium 3.2 L Chloride 98 Carbon Dioxide 29 Anion Gap 12 BUN 12 Creatinine 1.1 Est GFR ( Amer) 58 Est GFR (Non-Af Amer) 48 Random Glucose 113 H Calcium 8.7 Total Bilirubin 0.6 AST 27 ALT 14 Alkaline Phosphatase 76 NT-Pro-B Natriuret Pep 15461 H Total Protein 6.5 Albumin 4.2 Globulin 2.4 Albumin/Globulin Ratio 1.8 Assessment & Plan (1) CHF (congestive heart failure) Assessment and Plan: consider workup if pt agreeable GDMT for diastolic CHF HD to remove fluid add hydralazine + nitrates for CHF Status: Chronic Priority: Medium (2) Hyperkalemia Status: Acute Priority: High (3) Missed dialysis Status: Acute (4) Renal failure Status: Acute (5) Accelerated hypertension Status: Acute (6) Aortic stenosis Status: Acute
[2018-03-18] MEDS: Lidocaine 5% Patch TD SCH (13:36)
--- NOTE | 2018-03-18 14:31 | CP.PCM.PN ---
Subjective - Date & Time of Evaluation Date of Evaluation: 03/18/18 Time of Evaluation: 11:20 - Subjective Subjective: no AD, smiling , N/C, assisted to bathroom, Patient's family at bedside Objective - Vital Signs/Intake and Output Vital Signs (last 24 hours): Temp Pulse Resp BP Pulse Ox 98.6 F 79 20 169/71 H 98 03/18/18 12:36 03/18/18 12:36 03/18/18 12:36 03/18/18 12:36 03/18/18 12:36 - Medications Medications: Current Medications Acetaminophen (Tylenol 325mg Tab) 325 mg PO Q4 PRN PRN Reason: Pain, moderate (4-7) Last Admin: 03/17/18 12:33 Dose: 325 mg Alprazolam (Xanax) 0.5 mg PO DAILY PRN PRN Reason: Anxiety Last Admin: 03/17/18 08:48 Dose: 0.5 mg Amlodipine Besylate (Norvasc) 5 mg PO DAILY [facility] Last Admin: 03/18/18 09:00 Dose: 5 mg Atorvastatin Calcium (Lipitor) 20 mg PO DAILY [facility] Last Admin: 03/18/18 09:00 Dose: 20 mg Calcium Carbonate (Oscal) 500 mg PO TID [facility] Last Admin: 03/18/18 13:35 Dose: 500 mg Diphenhydramine HCl (Benadryl) 50 mg PO 08 PRN PRN Reason: Itching / Pruritus Last Admin: 03/17/18 16:47 Dose: 50 mg Heparin Sodium (Porcine) (Heparin) 5,000 units SC Q12 [facility] PRN Reason: Protocol Last Admin: 03/18/18 13:33 Dose: 5,000 units Labetalol HCl (Trandate) 100 mg PO BID [facility] Last Admin: 03/18/18 09:00 Dose: 100 mg Lidocaine (Lidoderm) 1 ea TD DAILY [facility] Last Admin: 03/18/18 13:36 Dose: Not Given Lidocaine/Prilocaine (Lidocaine/Prilocaine 2.5%-2.5%) 1 applic TP ONCE PRN PRN Reason: only on dialysis days Stop: 03/24/18 10:09 Last Admin: 03/17/18 11:00 Dose: 1 applic Mirtazapine (Remeron) 7.5 mg PO HS [facility] Last Admin: 03/17/18 21:01 Dose: 7.5 mg Ondansetron HCl (Zofran Inj) 4 mg IVP Q4 PRN PRN Reason: Nausea/Vomiting Last Admin: 03/17/18 13:39 Dose: 4 mg - Labs Labs: 03/17/18 14:39 03/17/18 14:39 - Constitutional Appears: Chronically Ill - Head Exam Head Exam: NORMAL INSPECTION - Eye Exam Eye Exam: PERRL Pupil Exam: NORMAL ACCOMODATION - ENT Exam ENT Exam: Normal Exam - Neck Exam Neck Exam: Normal Inspection - Respiratory Exam Respiratory Exam: Decreased Breath Sounds (at bases) - Cardiovascular Exam Cardiovascular Exam: REGULAR RHYTHM - GI/Abdominal Exam GI & Abdominal Exam: Soft, Normal Bowel Sounds - Extremities Exam Additional comments: L arm AV Fistula with bruit and thrill - Neurological Exam Neurological Exam: Alert Additional comments: confused at times, unsteady gait, moves all extremities, sensory grossly normal - Psychiatric Exam Psychiatric exam: Normal Mood - Skin Skin Exam: Warm Assessment and Plan (1) Hyperkalemia Status: Resolved (2) ESRD (end stage renal disease) on dialysis Status: Chronic (3) Noncompliance of patient with renal dialysis Status: Acute (4) Hypertension Status: Chronic (5) CHF (congestive heart failure) Status: Chronic (6) Dyslipidemia Status: Chronic (7) Dementia Status: Chronic - Assessment and Plan (Free Text) Plan: Patient with unsteady gait, need assistance, refusing PT, confused at times, f/u ECHO, continue HD, continue Norvasc, Trandate, Xanax and rest of treatment
--- NOTE | 2018-03-18 16:28 | CP.PCM.PN ---
Subjective - Date & Time of Evaluation Date of Evaluation: 03/18/18 Time of Evaluation: 16:28 - Subjective Subjective: renal follow up note no events overnight vitals reviewed heent normal no jvd op moist s1s2 present no resp distress abd soft no edema ao times 3 no fnd no rash A&P; esrd/htn/sec hyperpth/sob hd tts continue per schedule lytes reviewed anemia stable sob is improved bp improved continue calcium carbonate, monitor phos levels Objective - Vital Signs/Intake and Output Vital Signs (last 24 hours): Temp Pulse Resp BP Pulse Ox 98.1 F 83 20 150/67 98 03/18/18 16:03 03/18/18 16:03 03/18/18 16:03 03/18/18 16:03 03/18/18 16:03 - Medications Medications: Current Medications Acetaminophen (Tylenol 325mg Tab) 325 mg PO Q4 PRN PRN Reason: Pain, moderate (4-7) Last Admin: 03/17/18 12:33 Dose: 325 mg Alprazolam (Xanax) 0.5 mg PO DAILY PRN PRN Reason: Anxiety Last Admin: 03/17/18 08:48 Dose: 0.5 mg Amlodipine Besylate (Norvasc) 5 mg PO DAILY [facility] Last Admin: 03/18/18 09:00 Dose: 5 mg Atorvastatin Calcium (Lipitor) 20 mg PO DAILY [facility] Last Admin: 03/18/18 09:00 Dose: 20 mg Calcium Carbonate (Oscal) 500 mg PO TID [facility] Last Admin: 03/18/18 13:35 Dose: 500 mg Diphenhydramine HCl (Benadryl) 50 mg PO 08 PRN PRN Reason: Itching / Pruritus Last Admin: 03/17/18 16:47 Dose: 50 mg Heparin Sodium (Porcine) (Heparin) 5,000 units SC Q12 [facility] PRN Reason: Protocol Last Admin: 03/18/18 13:33 Dose: 5,000 units Labetalol HCl (Trandate) 100 mg PO BID [facility] Last Admin: 03/18/18 09:00 Dose: 100 mg Lidocaine (Lidoderm) 1 ea TD DAILY [facility] Last Admin: 03/18/18 13:36 Dose: Not Given Lidocaine/Prilocaine (Lidocaine/Prilocaine 2.5%-2.5%) 1 applic TP ONCE PRN PRN Reason: only on dialysis days Stop: 03/24/18 10:09 Last Admin: 03/17/18 11:00 Dose: 1 applic Mirtazapine (Remeron) 7.5 mg PO HS [facility] Last Admin: 03/17/18 21:01 Dose: 7.5 mg Ondansetron HCl (Zofran Inj) 4 mg IVP Q4 PRN PRN Reason: Nausea/Vomiting Last Admin: 03/17/18 13:39 Dose: 4 mg - Labs Labs: 03/17/18 14:39 03/17/18 14:39
[2018-03-18] MEDS ORDERED: Alum-Mag Hydrox-Simethicone Susp (30 mL) PO PRN (18:47)
[2018-03-19] MEDS ORDERED: Albuterol-Ipratrop 3 mg / 0.5 (3 ml) UD INH STA (03:43)
--- NOTE | 2018-03-19 03:45 | CP.PCM.PN ---
Subjective - Date & Time of Evaluation Date of Evaluation: 03/19/18 Time of Evaluation: 03:45 - Subjective Subjective: Called to evaluate this patient with SOB , SpO2 of 88% on 3Liters Oxygen The patient is seen sitting upright in bed with severe SOB using accessory muscles of respiration EXAM: Resp: Bilateral inspiratory crackles with expiratory wheezes CVS: S1 S2 Tachycardic. No S3 S4 Abdomen: Flat, Soft, Non-tender Ext>:No edema Neuro: awake and alert, Nonfocal CXR: Bilateral interstitial infiltrate A&P #. Acute CHF due to Fluid overload - Lasix 160mg IV - Albuterol nebulizer - Ventimask at 50% - Call for stat Hemodialysis #. ESRD on HD - For Dialysis Critical care time 35 Minutes Horace Okeefe Objective - Vital Signs/Intake and Output Vital Signs (last 24 hours): Temp Pulse Resp BP Pulse Ox 97.9 F 89 18 173/77 H 97 03/19/18 00:02 03/19/18 00:02 03/19/18 00:02 03/19/18 00:02 03/19/18 00:02 - Medications Medications: Current Medications Acetaminophen (Tylenol 325mg Tab) 325 mg PO Q4 PRN PRN Reason: Pain, moderate (4-7) Last Admin: 03/19/18 01:51 Dose: 325 mg Al Hydrox/Mg Hydrox/Simethicone (Maalox Plus 30 Ml) 30 ml PO Q4 PRN PRN Reason: Indigestion / Heartburn Albuterol/Ipratropium (Duoneb 3 Mg/0.5 Mg (3 Ml) Ud) 3 ml INH STAT [facility] Stop: 03/19/18 03:44 Alprazolam (Xanax) 0.5 mg PO DAILY PRN PRN Reason: Anxiety Last Admin: 03/19/18 01:29 Dose: 0.5 mg Amlodipine Besylate (Norvasc) 5 mg PO DAILY [facility] Last Admin: 03/18/18 09:00 Dose: 5 mg Atorvastatin Calcium (Lipitor) 20 mg PO DAILY [facility] Last Admin: 03/18/18 09:00 Dose: 20 mg Calcium Carbonate (Oscal) 500 mg PO TID [facility] Last Admin: 03/18/18 17:58 Dose: 500 mg Diphenhydramine HCl (Benadryl) 50 mg PO 08 PRN PRN Reason: Itching / Pruritus Last Admin: 03/17/18 16:47 Dose: 50 mg Furosemide (Lasix) 160 mg IVP STAT [facility] Stop: 03/19/18 03:44 Heparin Sodium (Porcine) (Heparin) 5,000 units SC Q12 [facility] PRN Reason: Protocol Last Admin: 03/18/18 21:30 Dose: 5,000 units Labetalol HCl (Trandate) 100 mg PO BID [facility] Last Admin: 03/18/18 17:58 Dose: 100 mg Lidocaine (Lidoderm) 1 ea TD DAILY [facility] Last Admin: 03/18/18 13:36 Dose: Not Given Lidocaine/Prilocaine (Lidocaine/Prilocaine 2.5%-2.5%) 1 applic TP ONCE PRN PRN Reason: only on dialysis days Stop: 03/24/18 10:09 Last Admin: 03/17/18 11:00 Dose: 1 applic Mirtazapine (Remeron) 7.5 mg PO HS [facility] Last Admin: 03/18/18 23:00 Dose: 7.5 mg Ondansetron HCl (Zofran Inj) 4 mg IVP Q4 PRN PRN Reason: Nausea/Vomiting Last Admin: 03/17/18 13:39 Dose: 4 mg - Labs Labs: 03/17/18 14:39 03/17/18 14:39
[2018-03-19] MEDS: Lidocaine 5% Patch TD SCH (09:02)
--- NOTE | 2018-03-19 09:54 | CP.PCM.PN ---
Subjective - Date & Time of Evaluation Date of Evaluation: 03/19/18 Time of Evaluation: 09:53 - Subjective Subjective: patient sitting in bed awake and conscious not in acute distress. Vital sign blood pressure elevated she was not given antihypertensive medication yet Objective - Vital Signs/Intake and Output Vital Signs (last 24 hours): Temp Pulse Resp BP Pulse Ox 97.8 F 88 20 181/64 H 95 03/19/18 08:12 03/19/18 08:12 03/19/18 08:12 03/19/18 08:12 03/19/18 08:12 - Medications Medications: Current Medications Acetaminophen (Tylenol 325mg Tab) 325 mg PO Q4 PRN PRN Reason: Pain, moderate (4-7) Last Admin: 03/19/18 01:51 Dose: 325 mg Al Hydrox/Mg Hydrox/Simethicone (Maalox Plus 30 Ml) 30 ml PO Q4 PRN PRN Reason: Indigestion / Heartburn Alprazolam (Xanax) 0.5 mg PO DAILY PRN PRN Reason: Anxiety Last Admin: 03/19/18 01:29 Dose: 0.5 mg Amlodipine Besylate (Norvasc) 5 mg PO DAILY [facility] Last Admin: 03/18/18 09:00 Dose: 5 mg Atorvastatin Calcium (Lipitor) 20 mg PO DAILY [facility] Last Admin: 03/18/18 09:00 Dose: 20 mg Calcium Carbonate (Oscal) 500 mg PO TID [facility] Last Admin: 03/18/18 17:58 Dose: 500 mg Diphenhydramine HCl (Benadryl) 50 mg PO 08 PRN PRN Reason: Itching / Pruritus Last Admin: 03/17/18 16:47 Dose: 50 mg Heparin Sodium (Porcine) (Heparin) 5,000 units SC Q12 [facility] PRN Reason: Protocol Last Admin: 03/18/18 21:30 Dose: 5,000 units Labetalol HCl (Trandate) 100 mg PO BID [facility] Last Admin: 03/18/18 17:58 Dose: 100 mg Lidocaine (Lidoderm) 1 ea TD DAILY [facility] Last Admin: 03/18/18 13:36 Dose: Not Given Lidocaine/Prilocaine (Lidocaine/Prilocaine 2.5%-2.5%) 1 applic TP ONCE PRN PRN Reason: only on dialysis days Stop: 03/24/18 10:09 Last Admin: 03/17/18 11:00 Dose: 1 applic Mirtazapine (Remeron) 7.5 mg PO HS [facility] Last Admin: 03/18/18 23:00 Dose: 7.5 mg Ondansetron HCl (Zofran Inj) 4 mg IVP Q4 PRN PRN Reason: Nausea/Vomiting Last Admin: 03/17/18 13:39 Dose: 4 mg - Labs Labs: 03/17/18 14:39 03/17/18 14:39 - Constitutional Appears: No Acute Distress - Eye Exam Eye Exam: Conjunctival injection - Neck Exam Neck Exam: absent: Lymphadenopathy - Respiratory Exam Respiratory Exam: absent: Chest Wall Tenderness - Cardiovascular Exam Cardiovascular Exam: REGULAR RHYTHM. absent: Gallop, JVD, Rubs - GI/Abdominal Exam GI & Abdominal Exam: Soft, Normal Bowel Sounds - Extremities Exam Extremities Exam: absent: Calf Tenderness - Back Exam Back Exam: absent: CVA tenderness (L), CVA tenderness (R) - Neurological Exam Neurological Exam: Alert - Psychiatric Exam Psychiatric exam: Normal Affect - Skin Skin Exam: absent: Cyanosis Assessment and Plan (1) Hyperkalemia Status: Acute (2) CHF (congestive heart failure) Assessment & Plan: patient with end stage renal disease Admitted with volume overloaded Patient keep missing dialysis and no show up as outpatient Hypertension Secondary hyperparathyroidism Hyperphosphatemia The plan Continue hemodialysis as scheduled for today Continue the rest of the medication more counseling with the patient with no avail Status: Chronic
--- NOTE | 2018-03-19 14:06 | RAD ---
Date of service: 03/19/2018 HISTORY: Congestion COMPARISON: No prior. FINDINGS: LUNGS: Diffuse bilateral infiltrates likely representing pulmonary venous congestive changes localized areas of bibasilar atelectasis and or developing alveolar-type infiltrates. Probable small left-sided effusion. PLEURA: As above. No pneumothorax apparent. CARDIOVASCULAR: Cardiomegaly. OSSEOUS STRUCTURES: No significant abnormalities. VISUALIZED UPPER ABDOMEN: Normal. OTHER FINDINGS: None. IMPRESSION: Diffuse bilateral infiltrates likely representing pulmonary venous congestive changes localized areas of bibasilar atelectasis and or developing alveolar-type infiltrates. Probable small left-sided effusion.
--- NOTE | 2018-03-19 15:45 | CP.PCM.PN ---
Subjective - Date & Time of Evaluation Date of Evaluation: 03/19/18 - Subjective Subjective: F/U Hyperkalemia Calm now , reported agitated previously Objective - Vital Signs/Intake and Output Vital Signs (last 24 hours): Temp Pulse Resp BP Pulse Ox 98.7 F 84 18 158/61 H 97 03/19/18 15:29 03/19/18 15:29 03/19/18 15:29 03/19/18 15:29 03/19/18 15:29 - Medications Medications: Current Medications Acetaminophen (Tylenol 325mg Tab) 325 mg PO Q4 PRN PRN Reason: Pain, moderate (4-7) Last Admin: 03/19/18 01:51 Dose: 325 mg Al Hydrox/Mg Hydrox/Simethicone (Maalox Plus 30 Ml) 30 ml PO Q4 PRN PRN Reason: Indigestion / Heartburn Alprazolam (Xanax) 0.5 mg PO DAILY PRN PRN Reason: Anxiety Last Admin: 03/19/18 01:29 Dose: 0.5 mg Amlodipine Besylate (Norvasc) 5 mg PO DAILY [facility] Last Admin: 03/18/18 09:00 Dose: 5 mg Atorvastatin Calcium (Lipitor) 20 mg PO DAILY [facility] Last Admin: 03/18/18 09:00 Dose: 20 mg Calcium Carbonate (Oscal) 500 mg PO TID [facility] Last Admin: 03/18/18 17:58 Dose: 500 mg Diphenhydramine HCl (Benadryl) 50 mg PO 08 PRN PRN Reason: Itching / Pruritus Last Admin: 03/17/18 16:47 Dose: 50 mg Heparin Sodium (Porcine) (Heparin) 5,000 units SC Q12 [facility] PRN Reason: Protocol Last Admin: 03/18/18 21:30 Dose: 5,000 units Labetalol HCl (Trandate) 100 mg PO BID [facility] Last Admin: 03/18/18 17:58 Dose: 100 mg Lidocaine (Lidoderm) 1 ea TD DAILY [facility] Last Admin: 03/18/18 13:36 Dose: Not Given Lidocaine/Prilocaine (Lidocaine/Prilocaine 2.5%-2.5%) 1 applic TP ONCE PRN PRN Reason: only on dialysis days Stop: 03/24/18 10:09 Last Admin: 03/17/18 11:00 Dose: 1 applic Mirtazapine (Remeron) 7.5 mg PO HS [facility] Last Admin: 03/18/18 23:00 Dose: 7.5 mg Ondansetron HCl (Zofran Inj) 4 mg IVP Q4 PRN PRN Reason: Nausea/Vomiting Last Admin: 03/17/18 13:39 Dose: 4 mg - Labs Labs: 03/17/18 14:39 03/17/18 14:39 - Constitutional Appears: Chronically Ill - Head Exam Head Exam: NORMAL INSPECTION - Eye Exam Eye Exam: PERRL - ENT Exam ENT Exam: Normal Exam - Neck Exam Neck Exam: Normal Inspection - Respiratory Exam Respiratory Exam: Decreased Breath Sounds (at bases) - Cardiovascular Exam Cardiovascular Exam: REGULAR RHYTHM - GI/Abdominal Exam GI & Abdominal Exam: Soft, Normal Bowel Sounds - Extremities Exam Additional comments: L arm AV fistula with bruit and thrill - Neurological Exam Neurological Exam: Alert Additional comments: Confused at times, unsteady gait, moves all extremities, sensory normal - Psychiatric Exam Psychiatric exam: Normal Mood - Skin Skin Exam: Warm Assessment and Plan (1) Hyperkalemia Status: Resolved (2) ESRD (end stage renal disease) on dialysis Status: Chronic (3) Noncompliance of patient with renal dialysis Status: Acute (4) Hypertension Status: Chronic (5) CHF (congestive heart failure) Status: Chronic (6) Dyslipidemia Status: Chronic (7) Dementia Status: Chronic - Assessment and Plan (Free Text) Plan: BP elevated, continue HD, BP meds, O2, Renal f/u appreciated, CMP
[2018-03-20] MEDS: Lidocaine 5% Patch TD SCH (09:23)
--- NOTE | 2018-03-20 11:37 | CP.PCM.PN ---
Subjective - Date & Time of Evaluation Date of Evaluation: 03/20/18 Time of Evaluation: 11:35 - Subjective Subjective: Patient awake and conscious not in acute distress appeared to be comfortable. Vital signs stable Objective - Vital Signs/Intake and Output Vital Signs (last 24 hours): Temp Pulse Resp BP Pulse Ox 98.5 F 88 18 164/71 H 96 03/20/18 08:11 03/20/18 09:22 03/20/18 08:11 03/20/18 09:22 03/20/18 08:11 - Medications Medications: Current Medications Acetaminophen (Tylenol 325mg Tab) 325 mg PO Q4 PRN PRN Reason: Pain, moderate (4-7) Last Admin: 03/19/18 19:05 Dose: 325 mg Al Hydrox/Mg Hydrox/Simethicone (Maalox Plus 30 Ml) 30 ml PO Q4 PRN PRN Reason: Indigestion / Heartburn Alprazolam (Xanax) 0.5 mg PO DAILY PRN PRN Reason: Anxiety Last Admin: 03/19/18 01:29 Dose: 0.5 mg Amlodipine Besylate (Norvasc) 5 mg PO DAILY [facility] Last Admin: 03/20/18 09:22 Dose: 5 mg Atorvastatin Calcium (Lipitor) 20 mg PO DAILY [facility] Last Admin: 03/19/18 09:00 Dose: 20 mg Calcium Carbonate (Oscal) 500 mg PO TID [facility] Last Admin: 03/20/18 09:24 Dose: 500 mg Diphenhydramine HCl (Benadryl) 50 mg PO 08 PRN PRN Reason: Itching / Pruritus Last Admin: 03/17/18 16:47 Dose: 50 mg Heparin Sodium (Porcine) (Heparin) 5,000 units SC Q12 [facility] PRN Reason: Protocol Last Admin: 03/20/18 09:23 Dose: 5,000 units Labetalol HCl (Trandate) 100 mg PO BID [facility] Last Admin: 03/20/18 09:24 Dose: 100 mg Lidocaine (Lidoderm) 1 ea TD DAILY [facility] Last Admin: 03/20/18 09:23 Dose: 1 ea Lidocaine/Prilocaine (Lidocaine/Prilocaine 2.5%-2.5%) 1 applic TP ONCE PRN PRN Reason: only on dialysis days Stop: 03/24/18 10:09 Last Admin: 03/17/18 11:00 Dose: 1 applic Mirtazapine (Remeron) 7.5 mg PO HS [facility] Last Admin: 03/19/18 21:19 Dose: 7.5 mg Ondansetron HCl (Zofran Inj) 4 mg IVP Q4 PRN PRN Reason: Nausea/Vomiting Last Admin: 03/17/18 13:39 Dose: 4 mg - Labs Labs: 03/17/18 14:39 03/17/18 14:39 - Constitutional Appears: No Acute Distress - Eye Exam Eye Exam: absent: Conjunctival injection - ENT Exam ENT Exam: Mucous Membranes Moist - Neck Exam Neck Exam: absent: Lymphadenopathy - Respiratory Exam Respiratory Exam: absent: Chest Wall Tenderness - Cardiovascular Exam Cardiovascular Exam: absent: Gallop, JVD - GI/Abdominal Exam GI & Abdominal Exam: Soft, Normal Bowel Sounds - Extremities Exam Extremities Exam: absent: Calf Tenderness - Back Exam Back Exam: absent: CVA tenderness (L), CVA tenderness (R) - Neurological Exam Neurological Exam: Alert - Psychiatric Exam Psychiatric exam: Normal Affect - Skin Skin Exam: absent: Cyanosis Assessment and Plan (1) Hyperkalemia Status: Acute (2) CHF (congestive heart failure) Status: Chronic (3) CKD (chronic kidney disease) stage V requiring chronic dialysis Assessment & Plan: patient with end stage renal disease Admitted with volume overloaded Patient keep missing dialysis and no show up as outpatient Hypertension Secondary hyperparathyroidism Hyperphosphatemia The plan Patient will need only twice a week hemodialysis next dialysis will be Sunday no dialysis tomorrow or Sunday Status: Chronic
--- NOTE | 2018-03-20 15:03 | CP.PCM.PN ---
Subjective - Date & Time of Evaluation Date of Evaluation: 03/20/18 Time of Evaluation: 11:40 - Subjective Subjective: F/U Hyperkalemia no AD, N/C , Patient,s family at bedside Objective - Vital Signs/Intake and Output Vital Signs (last 24 hours): Temp Pulse Resp BP Pulse Ox 98.2 F 79 20 107/52 L 99 03/20/18 12:37 03/20/18 12:37 03/20/18 12:37 03/20/18 12:37 03/20/18 12:37 - Medications Medications: Current Medications Acetaminophen (Tylenol 325mg Tab) 325 mg PO Q4 PRN PRN Reason: Pain, moderate (4-7) Last Admin: 03/19/18 19:05 Dose: 325 mg Al Hydrox/Mg Hydrox/Simethicone (Maalox Plus 30 Ml) 30 ml PO Q4 PRN PRN Reason: Indigestion / Heartburn Alprazolam (Xanax) 0.5 mg PO DAILY PRN PRN Reason: Anxiety Last Admin: 03/19/18 01:29 Dose: 0.5 mg Amlodipine Besylate (Norvasc) 5 mg PO DAILY [facility] Last Admin: 03/20/18 09:22 Dose: 5 mg Atorvastatin Calcium (Lipitor) 20 mg PO DAILY [facility] Last Admin: 03/19/18 09:00 Dose: 20 mg Calcium Carbonate (Oscal) 500 mg PO TID [facility] Last Admin: 03/20/18 14:31 Dose: 500 mg Diphenhydramine HCl (Benadryl) 50 mg PO 08 PRN PRN Reason: Itching / Pruritus Last Admin: 03/17/18 16:47 Dose: 50 mg Heparin Sodium (Porcine) (Heparin) 5,000 units SC Q12 [facility] PRN Reason: Protocol Last Admin: 03/20/18 09:23 Dose: 5,000 units Labetalol HCl (Trandate) 100 mg PO BID [facility] Last Admin: 03/20/18 09:24 Dose: 100 mg Lidocaine (Lidoderm) 1 ea TD DAILY [facility] Last Admin: 03/20/18 09:23 Dose: 1 ea Lidocaine/Prilocaine (Lidocaine/Prilocaine 2.5%-2.5%) 1 applic TP ONCE PRN PRN Reason: only on dialysis days Stop: 03/24/18 10:09 Last Admin: 03/17/18 11:00 Dose: 1 applic Mirtazapine (Remeron) 7.5 mg PO HS [facility] Last Admin: 03/19/18 21:19 Dose: 7.5 mg Ondansetron HCl (Zofran Inj) 4 mg IVP Q4 PRN PRN Reason: Nausea/Vomiting Last Admin: 03/17/18 13:39 Dose: 4 mg - Labs Labs: 03/17/18 14:39 03/17/18 14:39 - Constitutional Appears: Chronically Ill - Head Exam Head Exam: NORMAL INSPECTION - Eye Exam Eye Exam: PERRL - ENT Exam ENT Exam: Normal Exam - Neck Exam Neck Exam: Normal Inspection - Respiratory Exam Respiratory Exam: Decreased Breath Sounds (at bases) - Cardiovascular Exam Cardiovascular Exam: REGULAR RHYTHM - GI/Abdominal Exam GI & Abdominal Exam: Soft, Normal Bowel Sounds - Extremities Exam Additional comments: L arm AV fistula with bruit and thrill - Neurological Exam Neurological Exam: Alert Additional comments: Confused at times, unsteady gait, moves all extremities, sensory normal. - Psychiatric Exam Psychiatric exam: Normal Mood - Skin Skin Exam: Warm Assessment and Plan (1) Hyperkalemia Status: Resolved (2) ESRD (end stage renal disease) on dialysis Status: Chronic (3) Noncompliance of patient with renal dialysis Status: Acute (4) Hypertension Status: Chronic (5) CHF (congestive heart failure) Assessment & Plan: continue dialysis and current treatment, Patient was missing dialysis as out patient and lost her previous dialysis place, , Social Service looking for a new dialysis place as out patient, She will need dialysis twice a week, Renal f/u apreciated Status: Chronic (6) Dyslipidemia Status: Chronic (7) Dementia Status: Chronic
[2018-03-21] MEDS: Lidocaine 5% Patch TD SCH (08:24)
--- NOTE | 2018-03-21 10:59 | CP.PCM.PN ---
Subjective - Date & Time of Evaluation Date of Evaluation: 03/21/18 Time of Evaluation: 10:58 - Subjective Subjective: patient is up and around no complain Objective - Vital Signs/Intake and Output Vital Signs (last 24 hours): Temp Pulse Resp BP Pulse Ox 98.3 F 84 18 172/67 H 97 03/21/18 07:54 03/21/18 07:54 03/21/18 07:54 03/21/18 08:26 03/21/18 07:54 - Medications Medications: Current Medications Acetaminophen (Tylenol 325mg Tab) 325 mg PO Q4 PRN PRN Reason: Pain, moderate (4-7) Last Admin: 03/20/18 15:05 Dose: 325 mg Al Hydrox/Mg Hydrox/Simethicone (Maalox Plus 30 Ml) 30 ml PO Q4 PRN PRN Reason: Indigestion / Heartburn Amlodipine Besylate (Norvasc) 5 mg PO DAILY [facility] Last Admin: 03/21/18 08:26 Dose: 5 mg Atorvastatin Calcium (Lipitor) 20 mg PO DAILY@2200 [facility] Last Admin: 03/20/18 21:09 Dose: 20 mg Calcium Carbonate (Oscal) 500 mg PO TID [facility] Last Admin: 03/21/18 08:26 Dose: 500 mg Diphenhydramine HCl (Benadryl) 50 mg PO 08 PRN PRN Reason: Itching / Pruritus Last Admin: 03/17/18 16:47 Dose: 50 mg Heparin Sodium (Porcine) (Heparin) 5,000 units SC Q12 [facility] PRN Reason: Protocol Last Admin: 03/21/18 08:24 Dose: 5,000 units Labetalol HCl (Trandate) 100 mg PO BID [facility] Last Admin: 03/21/18 08:27 Dose: 100 mg Lidocaine (Lidoderm) 1 ea TD DAILY [facility] Last Admin: 03/21/18 08:24 Dose: 1 ea Lidocaine/Prilocaine (Lidocaine/Prilocaine 2.5%-2.5%) 1 applic TP ONCE PRN PRN Reason: only on dialysis days Stop: 03/24/18 10:09 Last Admin: 03/17/18 11:00 Dose: 1 applic Mirtazapine (Remeron) 7.5 mg PO HS [facility] Last Admin: 03/20/18 21:09 Dose: 7.5 mg Ondansetron HCl (Zofran Inj) 4 mg IVP Q4 PRN PRN Reason: Nausea/Vomiting Last Admin: 03/17/18 13:39 Dose: 4 mg - Labs Labs: 03/17/18 14:39 03/17/18 14:39 - Constitutional Appears: No Acute Distress - ENT Exam ENT Exam: Mucous Membranes Moist - Neck Exam Neck Exam: absent: Lymphadenopathy - Respiratory Exam Respiratory Exam: NORMAL BREATHING PATTERN. absent: Chest Wall Tenderness - Cardiovascular Exam Cardiovascular Exam: absent: JVD, Rubs - GI/Abdominal Exam GI & Abdominal Exam: Soft, Normal Bowel Sounds - Extremities Exam Extremities Exam: absent: Calf Tenderness - Back Exam Back Exam: absent: CVA tenderness (L), CVA tenderness (R) - Neurological Exam Neurological Exam: Alert - Skin Skin Exam: absent: Cyanosis Assessment and Plan (1) Hyperkalemia Status: Acute (2) CHF (congestive heart failure) Status: Chronic (3) CKD (chronic kidney disease) stage V requiring chronic dialysis Assessment & Plan: Assessment & Plan: patient with end stage renal disease Admitted with volume overloaded Patient keep missing dialysis and no show up as outpatient Hypertension Secondary hyperparathyroidism Hyperphosphatemia The plan Patient will need only twice a week hemodialysis next dialysis will be Sunday no dialysis tomorrow Status: Chronic
[2018-03-21 11:38] LABS: HEMOGLOBIN 10.2 g/dL (12.0-16.0); MEAN CELL VOLUME 87.2 fl (81.0-99.0); MEAN CORPUSCULAR HEMOGLOBIN 30.4 pg (27.0-31.0); MEAN CORPUSCULAR HGB CONC 34.9 g/dL (33.0-37.0); RBC 3.34 Mil/uL (3.80-5.20); RED CELL DISTRIBUTION WIDTH 14.2 % (11.5-14.5); WHITE BLOOD COUNT 5.4 K/uL (4.8-10.8)
[2018-03-21 11:53] LABS: CALCIUM 9.6 mg/dL (8.4-10.2)
--- NOTE | 2018-03-21 13:52 | CT ---
Date of service: 03/21/2018 PROCEDURE: CT Chest without contrast HISTORY: congestion COMPARISON: Noncontrast chest CT 01/18/2017. TECHNIQUE: Contiguous axial images were obtained through the chest without intravenous contrast enhancement. Sagittal and coronal reconstructions were performed. Radiation dose (DLP): 189.68 mGy-cm. This CT exam was performed using one or more of the following dose reduction techniques: Automated exposure control, adjustment of the mA and/or kV according to patient size, and/or use of iterative reconstruction technique. FINDINGS: LUNGS: There is a 5.3 mm noncalcified nodule identified in image 43 series 3 right upper lobe which is stable. Central airways are clear with no additional nodule or mass seen in aerated lung. Limited bilateral basilar dependent atelectasis seen affecting the bilateral lower lobes predominantly but and minimally affecting the lingula. MEDIASTINUM: Atherosclerotic but nonaneurysmal thoracic aorta is identified. Cardiomegaly is present with prominent mitral annular calcification. Coronary artery atherosclerosis identified. Main pulmonary artery is dilated to 3.6 cm without definite interstitial changes or interlobular septal thickening to suggest definite pulmonary vascular congestion at this time. Consider potential pulmonary artery hypertension. No significant lymphadenopathy. PLEURA: Mild bilateral pleural effusions identified. . No pneumothorax. BONES: No fracture. No destructive lesion. UPPER ABDOMEN: A large left renal cysts is reiterated. OTHER FINDINGS: None. IMPRESSION: The prior pattern of interlobular septal thickening is not identified although dilatation of the main pulmonary artery is appreciated and may reflect pulmonary artery hypertension. No definite CHF pattern appreciated at this time. Mild bilateral pleural effusions are identified. Bilateral basilar dependent atelectasis affects the lower lobes. Stable 5.3 mm noncalcified nodule right upper lobe for which follow-up chest is advised in 12 months demonstrate stability. Lung RAD 2
--- NOTE | 2018-03-21 15:54 | CP.PCM.PN ---
Subjective - Date & Time of Evaluation Date of Evaluation: 03/21/18 Time of Evaluation: 13:00 - Subjective Subjective: F/U ESRD no AD, smiling, N/C, Patient's family at bedside Objective - Vital Signs/Intake and Output Vital Signs (last 24 hours): Temp Pulse Resp BP Pulse Ox 98.7 F 76 18 144/75 98 03/21/18 12:11 03/21/18 12:11 03/21/18 12:11 03/21/18 12:11 03/21/18 12:11 - Medications Medications: Current Medications Acetaminophen (Tylenol 325mg Tab) 325 mg PO Q4 PRN PRN Reason: Pain, moderate (4-7) Last Admin: 03/20/18 15:05 Dose: 325 mg Al Hydrox/Mg Hydrox/Simethicone (Maalox Plus 30 Ml) 30 ml PO Q4 PRN PRN Reason: Indigestion / Heartburn Amlodipine Besylate (Norvasc) 5 mg PO DAILY [facility] Last Admin: 03/21/18 08:26 Dose: 5 mg Atorvastatin Calcium (Lipitor) 20 mg PO DAILY@2200 [facility] Last Admin: 03/20/18 21:09 Dose: 20 mg Calcium Carbonate (Oscal) 500 mg PO TID [facility] Last Admin: 03/21/18 08:26 Dose: 500 mg Diphenhydramine HCl (Benadryl) 50 mg PO 08 PRN PRN Reason: Itching / Pruritus Last Admin: 03/17/18 16:47 Dose: 50 mg Heparin Sodium (Porcine) (Heparin) 5,000 units SC Q12 [facility] PRN Reason: Protocol Last Admin: 03/21/18 08:24 Dose: 5,000 units Labetalol HCl (Trandate) 100 mg PO BID [facility] Last Admin: 03/21/18 08:27 Dose: 100 mg Lidocaine (Lidoderm) 1 ea TD DAILY [facility] Last Admin: 03/21/18 08:24 Dose: 1 ea Lidocaine/Prilocaine (Lidocaine/Prilocaine 2.5%-2.5%) 1 applic TP ONCE PRN PRN Reason: only on dialysis days Stop: 03/24/18 10:09 Last Admin: 03/17/18 11:00 Dose: 1 applic Mirtazapine (Remeron) 7.5 mg PO HS [facility] Last Admin: 03/20/18 21:09 Dose: 7.5 mg Ondansetron HCl (Zofran Inj) 4 mg IVP Q4 PRN PRN Reason: Nausea/Vomiting Last Admin: 03/17/18 13:39 Dose: 4 mg - Labs Labs: 03/21/18 11:26 03/21/18 11:26 - Constitutional Appears: No Acute Distress - Head Exam Head Exam: NORMAL INSPECTION - Eye Exam Eye Exam: PERRL - ENT Exam ENT Exam: Normal Exam - Neck Exam Neck Exam: Normal Inspection - Respiratory Exam Respiratory Exam: Decreased Breath Sounds (at bases) - Cardiovascular Exam Cardiovascular Exam: REGULAR RHYTHM, Murmur - GI/Abdominal Exam GI & Abdominal Exam: Soft, Normal Bowel Sounds - Extremities Exam Extremities Exam: Normal Inspection - Back Exam Back Exam: NORMAL INSPECTION - Neurological Exam Neurological Exam: Awake Additional comments: forgetful, no focal motor/sensory deficit - Psychiatric Exam Psychiatric exam: Normal Affect - Skin Skin Exam: Warm Assessment and Plan (1) ESRD (end stage renal disease) on dialysis Status: Chronic (2) Noncompliance of patient with renal dialysis Status: Acute (3) Hypertension Status: Chronic (4) CHF (congestive heart failure) Status: Chronic (5) Dyslipidemia Status: Chronic (6) Dementia Status: Chronic - Assessment and Plan (Free Text) Plan: CT chest no CHF, Pulmonary Hypertension, CHF improved, continue HD, Norvasc, Trandate, BP fluctuating, monitor BP, Social Service working for Dialysis center as out patient
[2018-03-22] MEDS ORDERED: Oxycodone/Acetaminophen 5/325 mg Tab PO PRN (02:12)
[2018-03-22] MEDS: Lidocaine 5% Patch TD SCH (08:13)
[2018-03-22 11:54] LABS: CALCIUM 9.2 mg/dL (8.4-10.2)
--- NOTE | 2018-03-22 12:13 | CP.PCM.PN ---
Subjective - Date & Time of Evaluation Date of Evaluation: 03/22/18 Time of Evaluation: 12:10 - Subjective Subjective: patient awake and conscious not in acute distress no significant changes except patient developing severe and rapidly hyponatremia the last serum sodium 124 For not clear reason except dilutional patient may not been taken so much fluid Objective - Vital Signs/Intake and Output Vital Signs (last 24 hours): Temp Pulse Resp BP Pulse Ox 97.6 F 78 18 174/71 H 95 03/22/18 08:11 03/22/18 08:14 03/22/18 08:11 03/22/18 08:14 03/22/18 08:11 - Medications Medications: Current Medications Acetaminophen (Tylenol 325mg Tab) 325 mg PO Q4 PRN PRN Reason: Pain, moderate (4-7) Last Admin: 03/22/18 00:30 Dose: 325 mg Al Hydrox/Mg Hydrox/Simethicone (Maalox Plus 30 Ml) 30 ml PO Q4 PRN PRN Reason: Indigestion / Heartburn Amlodipine Besylate (Norvasc) 5 mg PO DAILY [facility] Last Admin: 03/22/18 08:14 Dose: 5 mg Atorvastatin Calcium (Lipitor) 20 mg PO DAILY@2200 [facility] Last Admin: 03/21/18 22:03 Dose: 20 mg Calcium Carbonate (Oscal) 500 mg PO TID [facility] Last Admin: 03/22/18 08:14 Dose: 500 mg Diphenhydramine HCl (Benadryl) 50 mg PO 08 PRN PRN Reason: Itching / Pruritus Last Admin: 03/17/18 16:47 Dose: 50 mg Heparin Sodium (Porcine) (Heparin) 5,000 units SC Q12 [facility] PRN Reason: Protocol Last Admin: 03/22/18 08:13 Dose: 5,000 units Labetalol HCl (Trandate) 100 mg PO BID [facility] Last Admin: 03/22/18 08:15 Dose: 100 mg Lidocaine (Lidoderm) 1 ea TD DAILY [facility] Last Admin: 03/22/18 08:13 Dose: 1 ea Lidocaine/Prilocaine (Lidocaine/Prilocaine 2.5%-2.5%) 1 applic TP ONCE PRN PRN Reason: only on dialysis days Stop: 03/24/18 10:09 Last Admin: 03/17/18 11:00 Dose: 1 applic Mirtazapine (Remeron) 7.5 mg PO HS [facility] Last Admin: 03/21/18 22:03 Dose: 7.5 mg Ondansetron HCl (Zofran Inj) 4 mg IVP Q4 PRN PRN Reason: Nausea/Vomiting Last Admin: 03/17/18 13:39 Dose: 4 mg Oxycodone/Acetaminophen (Percocet 5/325 Mg Tab) 1 tab PO Q4 PRN PRN Reason: Pain, moderate (4-7) Stop: 03/25/18 02:13 Last Admin: 03/22/18 02:19 Dose: 1 tab - Labs Labs: 03/21/18 11:26 03/22/18 11:18 - Constitutional Appears: No Acute Distress - Eye Exam Eye Exam: Conjunctival injection - ENT Exam ENT Exam: Mucous Membranes Moist - Neck Exam Neck Exam: absent: Lymphadenopathy - Respiratory Exam Respiratory Exam: absent: Chest Wall Tenderness - Cardiovascular Exam Cardiovascular Exam: absent: Gallop, JVD, Rubs - GI/Abdominal Exam GI & Abdominal Exam: Soft, Normal Bowel Sounds - Extremities Exam Extremities Exam: absent: Calf Tenderness - Back Exam Back Exam: absent: CVA tenderness (L), CVA tenderness (R) - Neurological Exam Neurological Exam: Alert - Psychiatric Exam Psychiatric exam: Normal Affect - Skin Skin Exam: absent: Cyanosis Assessment and Plan (1) Hyperkalemia Status: Acute (2) CHF (congestive heart failure) Status: Chronic (3) CKD (chronic kidney disease) stage V requiring chronic dialysis Assessment & Plan: end stage renal disease on maintenance dialysis twice a week we change the dialysis today and stated of tomorrow because of the severe hyponatremia 124 today and patient started to develop some cracker in the lung and congestion hypertension continue on antihypertensive medication History of hyperphosphatemia and secondary hyperparathyroidism continue medications and binders I discussed with the daughter at the bedside patient is going to [facility] with her daughter Status: Chronic
--- NOTE | 2018-03-22 12:56 | CT ---
Date of service: 03/22/2018 PROCEDURE: CT Abdomen and Pelvis with contrast HISTORY: abdominal pain COMPARISON: No prior abdomen CT available for comparison. Upper abdomen sections from chest CT 03/21/2018 have been reviewed. TECHNIQUE: Helical CT of the abdomen was performed from the domes the diaphragm to the iliac crests without oral or intravenous contrast administered. Radiation dose: Total exam DLP = 191.18 mGy-cm. This CT exam was performed using one or more of the following dose reduction techniques: Automated exposure control, adjustment of the mA and/or kV according to patient size, and/or use of iterative reconstruction technique. FINDINGS: The lack of oral and intravenous contrast agents limits the interpretation of this examination significantly. Further, limited intra peritoneal fat diminishes definition of interfaces between organs. LOWER THORAX: Mild bilateral pleural effusions are reiterated exerting compression atelectasis at the bilateral lower lobes. Cardiomegaly is stable. No pericardial effusion. LIVER: A 2.2 x 1.5 cm cyst is seen at the inferior margins of the right lobe liver with the liver appearing borderline enlarged but otherwise nonfocal. No intrahepatic biliary dilatation identified. GALLBLADDER AND BILE DUCTS: Mildly distended and otherwise unremarkable appearing grossly. PANCREAS: The region of the pancreas appears grossly nonfocal. SPLEEN: Unremarkable. ADRENALS: Unremarkable. No mass. KIDNEYS AND URETERS: No definitive obstructive uropathy bilaterally. A large cyst is exophytic off the mid to lower pole left kidney measuring 6.1 x 5.1 cm. Vascular calcifications are identified at the renal hilar regions bilaterally. A punctate intrarenal calculus is not excluded at the midpole right kidney. This may also be vascular nevertheless. VASCULATURE: An atherosclerotic nonaneurysmal abdominal aorta is identified as well as the iliac arteries with moderate dilatation of the left common iliac artery up to 1.5 cm. BOWEL: Evaluation of the gastrointestinal tract is limited due the lack of oral contrast administration. No definite bowel obstruction. Moderate retained fecal material seen throughout various large-bowel loops. PERITONEUM: Unremarkable. No free fluid. No free air. LYMPH NODES: Unremarkable. No enlarged lymph nodes. BONES: No acute fracture identified. Advanced multilevel degenerative disc disease throughout the thoracolumbar spine, particularly at L1-2, the worst affected intervertebral disc level. OTHER FINDINGS: None. IMPRESSION: Limited exam due to lack of contrast agents. No definite bowel or urinary tract obstruction as imaged, free intra peritoneal gas or suspicious fluid collection identified. 0.2 cm right lobe hepatic cyst with liver upper limits normal size. A large cyst is exophytic off the mid to lower pole left kidney 6.1 cm greatest dimension. Punctate intrarenal calculus is questioned at the midpole right kidney versus arterial calcification.
--- NOTE | 2018-03-22 13:28 | CP.PCM.PN ---
Subjective - Date & Time of Evaluation Date of Evaluation: 03/22/18 Time of Evaluation: 11:40 - Subjective Subjective: no AD, smiling , N/C, Patient's family at bedside Objective - Vital Signs/Intake and Output Vital Signs (last 24 hours): Temp Pulse Resp BP Pulse Ox 98 F 79 16 146/62 93 L 03/22/18 12:39 03/22/18 12:39 03/22/18 12:39 03/22/18 12:39 03/22/18 12:39 - Medications Medications: Current Medications Acetaminophen (Tylenol 325mg Tab) 325 mg PO Q4 PRN PRN Reason: Pain, moderate (4-7) Last Admin: 03/22/18 00:30 Dose: 325 mg Al Hydrox/Mg Hydrox/Simethicone (Maalox Plus 30 Ml) 30 ml PO Q4 PRN PRN Reason: Indigestion / Heartburn Amlodipine Besylate (Norvasc) 5 mg PO DAILY [facility] Last Admin: 03/22/18 08:14 Dose: 5 mg Atorvastatin Calcium (Lipitor) 20 mg PO DAILY@2200 [facility] Last Admin: 03/21/18 22:03 Dose: 20 mg Calcium Carbonate (Oscal) 500 mg PO TID [facility] Last Admin: 03/22/18 12:46 Dose: 500 mg Diphenhydramine HCl (Benadryl) 50 mg PO 08 PRN PRN Reason: Itching / Pruritus Last Admin: 03/17/18 16:47 Dose: 50 mg Heparin Sodium (Porcine) (Heparin) 5,000 units SC Q12 [facility] PRN Reason: Protocol Last Admin: 03/22/18 08:13 Dose: 5,000 units Labetalol HCl (Trandate) 100 mg PO BID [facility] Last Admin: 03/22/18 08:15 Dose: 100 mg Lidocaine (Lidoderm) 1 ea TD DAILY [facility] Last Admin: 03/22/18 08:13 Dose: 1 ea Lidocaine/Prilocaine (Lidocaine/Prilocaine 2.5%-2.5%) 1 applic TP ONCE PRN PRN Reason: only on dialysis days Stop: 03/24/18 10:09 Last Admin: 03/17/18 11:00 Dose: 1 applic Mirtazapine (Remeron) 7.5 mg PO HS [facility] Last Admin: 03/21/18 22:03 Dose: 7.5 mg Ondansetron HCl (Zofran Inj) 4 mg IVP Q4 PRN PRN Reason: Nausea/Vomiting Last Admin: 03/17/18 13:39 Dose: 4 mg Oxycodone/Acetaminophen (Percocet 5/325 Mg Tab) 1 tab PO Q4 PRN PRN Reason: Pain, moderate (4-7) Stop: 03/25/18 02:13 Last Admin: 03/22/18 02:19 Dose: 1 tab - Labs Labs: 03/21/18 11:26 03/22/18 11:18 - Constitutional Appears: No Acute Distress - Head Exam Head Exam: NORMAL INSPECTION - Eye Exam Eye Exam: PERRL - ENT Exam ENT Exam: Normal Exam - Neck Exam Neck Exam: Normal Inspection - Respiratory Exam Respiratory Exam: Decreased Breath Sounds (at bases) - Cardiovascular Exam Cardiovascular Exam: REGULAR RHYTHM - GI/Abdominal Exam GI & Abdominal Exam: Soft, Normal Bowel Sounds - Extremities Exam Extremities Exam: Normal Inspection - Back Exam Back Exam: NORMAL INSPECTION - Neurological Exam Neurological Exam: Awake Additional comments: Forgetful, no focal motor/sensory deficit. - Psychiatric Exam Psychiatric exam: Normal Affect - Skin Skin Exam: Warm Assessment and Plan (1) ESRD (end stage renal disease) on dialysis Status: Chronic (2) Noncompliance of patient with renal dialysis Status: Acute (3) Hypertension Status: Chronic (4) CHF (congestive heart failure) Status: Chronic (5) Dyslipidemia Status: Chronic (6) Dementia Status: Chronic
[2018-03-22 21:58] LABS: HEPATITIS B SURFACE AG Negative (NEGATIVE)
[2018-03-22 22:04] LABS: HEPATITIS A IGM NEGATIVE (NEGATIVE); HEPATITIS B CORE AB NEGATIVE (NEGATIVE)
[2018-03-22 22:16] LABS: HEPATITIS C ANTIBODY NEGATIVE (NEGATIVE)
[2018-03-23] MEDS: Lidocaine 5% Patch TD SCH (09:02)
[2018-03-23] MEDS: Multivitamin Vitamin B Complex (Nephro-Vite) Tab PO SCH (12:44)
--- NOTE | 2018-03-23 16:42 | CP.PCM.PN ---
Subjective - Date & Time of Evaluation Date of Evaluation: 03/23/18 Time of Evaluation: 14:20 - Subjective Subjective: No AD, NC, Patient's family at bedside Objective - Vital Signs/Intake and Output Vital Signs (last 24 hours): Temp Pulse Resp BP Pulse Ox 98.2 F 86 20 160/67 H 96 03/23/18 15:57 03/23/18 15:57 03/23/18 15:57 03/23/18 15:57 03/23/18 15:57 - Medications Medications: Current Medications Acetaminophen (Tylenol 325mg Tab) 325 mg PO Q4 PRN PRN Reason: Pain, moderate (4-7) Last Admin: 03/22/18 14:19 Dose: 325 mg Albuterol/Ipratropium (Duoneb 3 Mg/0.5 Mg (3 Ml) Ud) 3 ml INH RQ6 PRN PRN Reason: Shortness of Breath Amlodipine Besylate (Norvasc) 5 mg PO DAILY [facility] Last Admin: 03/23/18 09:01 Dose: 5 mg Atorvastatin Calcium (Lipitor) 20 mg PO DAILY@2200 [facility] Last Admin: 03/22/18 21:31 Dose: 20 mg Calcium Carbonate (Oscal) 500 mg PO TID [facility] Last Admin: 03/23/18 16:34 Dose: 500 mg Diphenhydramine HCl (Benadryl) 50 mg PO 08 PRN PRN Reason: Itching / Pruritus Last Admin: 03/17/18 16:47 Dose: 50 mg Heparin Sodium (Porcine) (Heparin) 5,000 units SC Q12 [facility] PRN Reason: Protocol Last Admin: 03/23/18 12:55 Dose: 5,000 units Labetalol HCl (Trandate) 100 mg PO BID [facility] Last Admin: 03/23/18 09:02 Dose: 100 mg Lactic Acid (Lac-Hydrin 12% Lotion (225 G)) 1 applic TOP TID PRN PRN Reason: Itching / Pruritus Last Admin: 03/23/18 16:25 Dose: 1 applic Lidocaine (Lidoderm) 1 ea TD DAILY [facility] Last Admin: 03/23/18 09:02 Dose: 1 ea Lidocaine/Prilocaine (Lidocaine/Prilocaine 2.5%-2.5%) 1 applic TP ONCE PRN PRN Reason: only on dialysis days Stop: 03/24/18 10:09 Last Admin: 03/17/18 11:00 Dose: 1 applic Mirtazapine (Remeron) 7.5 mg PO HS [facility] Last Admin: 03/22/18 21:31 Dose: 7.5 mg Ondansetron HCl (Zofran Inj) 4 mg IVP Q4 PRN PRN Reason: Nausea/Vomiting Last Admin: 03/17/18 13:39 Dose: 4 mg Oxycodone/Acetaminophen (Percocet 5/325 Mg Tab) 1 tab PO Q4 PRN PRN Reason: Pain, moderate (4-7) Stop: 03/25/18 02:13 Last Admin: 03/22/18 02:19 Dose: 1 tab Vitamin B Complex/Vit C/Folic Acid (Nephro-Valentino) 1 tab PO DAILY [facility] Last Admin: 03/23/18 12:44 Dose: 1 tab - Labs Labs: 03/21/18 11:26 03/22/18 11:18 - Constitutional Appears: No Acute Distress - Head Exam Head Exam: NORMAL INSPECTION - Eye Exam Eye Exam: PERRL - ENT Exam ENT Exam: Normal Exam - Neck Exam Neck Exam: Normal Inspection - Respiratory Exam Respiratory Exam: Decreased Breath Sounds (at bases) - Cardiovascular Exam Cardiovascular Exam: REGULAR RHYTHM, Murmur - GI/Abdominal Exam GI & Abdominal Exam: Soft, Normal Bowel Sounds - Extremities Exam Extremities Exam: Normal Inspection - Back Exam Back Exam: NORMAL INSPECTION - Neurological Exam Neurological Exam: Awake Additional comments: forgetful, no focal motor/sensory deficit. - Psychiatric Exam Psychiatric exam: Normal Affect - Skin Skin Exam: Warm Assessment and Plan (1) ESRD (end stage renal disease) on dialysis Status: Chronic (2) Noncompliance of patient with renal dialysis Status: Acute (3) Hypertension Status: Chronic (4) CHF (congestive heart failure) Status: Chronic (5) Dyslipidemia Status: Chronic (6) Dementia Status: Chronic
--- NOTE | 2018-03-23 18:04 | CP.PCM.PN ---
Subjective - Date & Time of Evaluation Date of Evaluation: 03/23/18 Time of Evaluation: 18:02 - Subjective Subjective: Nephrology Consultation: Assessment: Stable missed HD with fluid overload/pulmonary edema End stage renal disease on hemodialysis via AVF with missed HD Anemia, Hyperphosphatemia, Secondary hyperparathyroidism, HTN, dementia non compliance with HD aortic stenosis/sclerosis Plan: Will plan per schedule. Continue with Nephrovite 1 tab/day. PRBC as needed for anemia. last Hb 10.2 last phos level 4, on oscal BP control with meds as ordered. Glycemic control, Dialysis consistent diet Further work up/management as per primary team d/c tyrese Thanks for allowing me to participate in care of your patient. Will follow patient with you. Please call if any Qs. n Dr Sridhar Day Office: [phone] ROS: unable much reliably due to her dementia. overall denies CP/SOB/nausea/ vomiting. rest all other neg Physical Examination: General Appearance: Comfortable, in no acute respiratory distress, co-operative . Vitals reviewed and noted as below Head; Atraumatic, normocephalic ENT: no ulcers no thrush. Tongue is midline. Oropharynx: no rash or ulcers. EYES: Pupils are equal, round and reactive to light accommodation. Eye muscles and extraocular movement intact. Sclera is anicteric. Neck; supple no lymphadenopathy, no thyromegaly or bruit Lungs: Normal respiratory rate/effort. Breath sounds bilateral equal and with few basal crackles Heart: Normal rate. s1s2 normal. No rub or gallop. Extremities: no edema. No varicose veins Neurological: Patient is alert, awake and demented. No focal deficit. Strength bilateral appropriate and equal Skin: Warm and dry. Normal turgor. No rash. Palpitation: Normal elasticity for age Abdomen: Abdomen is soft. Bowel sounds +. There is no abdominal tenderness, no guarding/rigidity or organomegaly Psych: lack insight and has normal affect/mood MSK: no joint tenderness or swelling. Digits and nails normal, no deformity : kidney or bladder not palpable Access: AVF Labs/imaging reviewed. Past medical history, past surgical history, family history, social history, allergy reviewed and noted as below Objective - Vital Signs/Intake and Output Vital Signs (last 24 hours): Temp Pulse Resp BP Pulse Ox 98.2 F 86 20 160/67 H 96 03/23/18 15:57 03/23/18 15:57 03/23/18 15:57 03/23/18 15:57 03/23/18 15:57 - Medications Medications: Current Medications Acetaminophen (Tylenol 325mg Tab) 325 mg PO Q4 PRN PRN Reason: Pain, moderate (4-7) Last Admin: 03/22/18 14:19 Dose: 325 mg Albuterol/Ipratropium (Duoneb 3 Mg/0.5 Mg (3 Ml) Ud) 3 ml INH RQ6 PRN PRN Reason: Shortness of Breath Amlodipine Besylate (Norvasc) 5 mg PO DAILY [facility] Last Admin: 03/23/18 09:01 Dose: 5 mg Atorvastatin Calcium (Lipitor) 20 mg PO DAILY@2200 [facility] Last Admin: 03/22/18 21:31 Dose: 20 mg Calcium Carbonate (Oscal) 500 mg PO TID [facility] Last Admin: 03/23/18 16:34 Dose: 500 mg Diphenhydramine HCl (Benadryl) 50 mg PO 08 PRN PRN Reason: Itching / Pruritus Last Admin: 03/17/18 16:47 Dose: 50 mg Heparin Sodium (Porcine) (Heparin) 5,000 units SC Q12 [facility] PRN Reason: Protocol Last Admin: 03/23/18 12:55 Dose: 5,000 units Labetalol HCl (Trandate) 100 mg PO BID [facility] Last Admin: 03/23/18 17:00 Dose: 100 mg Lactic Acid (Lac-Hydrin 12% Lotion (225 G)) 1 applic TOP TID PRN PRN Reason: Itching / Pruritus Last Admin: 03/23/18 16:25 Dose: 1 applic Lidocaine (Lidoderm) 1 ea TD DAILY [facility] Last Admin: 03/23/18 09:02 Dose: 1 ea Lidocaine/Prilocaine (Lidocaine/Prilocaine 2.5%-2.5%) 1 applic TP ONCE PRN PRN Reason: only on dialysis days Stop: 03/24/18 10:09 Last Admin: 03/17/18 11:00 Dose: 1 applic Mirtazapine (Remeron) 7.5 mg PO HS [facility] Last Admin: 03/22/18 21:31 Dose: 7.5 mg Ondansetron HCl (Zofran Inj) 4 mg IVP Q4 PRN PRN Reason: Nausea/Vomiting Last Admin: 03/17/18 13:39 Dose: 4 mg Oxycodone/Acetaminophen (Percocet 5/325 Mg Tab) 1 tab PO Q4 PRN PRN Reason: Pain, moderate (4-7) Stop: 03/25/18 02:13 Last Admin: 03/22/18 02:19 Dose: 1 tab Vitamin B Complex/Vit C/Folic Acid (Nephro-Valentino) 1 tab PO DAILY [facility] Last Admin: 03/23/18 12:44 Dose: 1 tab - Labs Labs: 03/21/18 11:26 03/22/18 11:18
[2018-03-24] MEDS: Lidocaine 5% Patch TD SCH (09:44)
[2018-03-24] MEDS: Multivitamin Vitamin B Complex (Nephro-Vite) Tab PO SCH (09:45)
--- NOTE | 2018-03-24 12:45 | CP.PCM.PN ---
Subjective - Date & Time of Evaluation Date of Evaluation: 03/24/18 Time of Evaluation: 12:44 - Subjective Subjective: Nephrology Consultation Note: Assessment: Stable missed HD with fluid overload/pulmonary edema End stage renal disease on hemodialysis via AVF with missed HD Anemia, Hyperphosphatemia, Secondary hyperparathyroidism, HTN, dementia non compliance with HD aortic stenosis/sclerosis Plan: Will plan HD per schedule. Continue with Nephrovite 1 tab/day. PRBC as needed for anemia. last Hb 10.2 last phos level 4, on oscal BP control with meds as adjusted, increased norvasc and labetalol. Glycemic control, Dialysis consistent diet Further work up/management as per primary team d/c tyrese Thanks for allowing me to participate in care of your patient. Will follow patient with you. Please call if any Qs. had d/w daughter Sridhar Day Office: [phone] ROS: unable much reliably due to her dementia. overall denies CP/SOB/nausea/ vomiting. rest all other neg Physical Examination: General Appearance: Comfortable, in no acute respiratory distress, co-operative . Vitals reviewed and noted as below Head; Atraumatic, normocephalic ENT: no ulcers no thrush. Tongue is midline. Oropharynx: no rash or ulcers. EYES: Pupils are equal, round and reactive to light accommodation. Eye muscles and extraocular movement intact. Sclera is anicteric. Neck; supple no lymphadenopathy, no thyromegaly or bruit Lungs: Normal respiratory rate/effort. Breath sounds bilateral equal and with few basal crackles Heart: Normal rate. s1s2 normal. No rub or gallop. Extremities: no edema. No varicose veins Neurological: Patient is alert, awake and demented. No focal deficit. Strength bilateral appropriate and equal Skin: Warm and dry. Normal turgor. No rash. Palpitation: Normal elasticity for age Abdomen: Abdomen is soft. Bowel sounds +. There is no abdominal tenderness, no guarding/rigidity or organomegaly Psych: lack insight and has normal affect/mood MSK: no joint tenderness or swelling. Digits and nails normal, no deformity : kidney or bladder not palpable Access: AVF Labs/imaging reviewed. Past medical history, past surgical history, family history, social history, allergy reviewed and noted as below Objective - Vital Signs/Intake and Output Vital Signs (last 24 hours): Temp Pulse Resp BP Pulse Ox 98 F 87 20 177/74 H 94 L 03/24/18 08:04 03/24/18 09:47 03/24/18 08:04 03/24/18 09:47 03/24/18 08:04 - Medications Medications: Current Medications Acetaminophen (Tylenol 325mg Tab) 325 mg PO Q4 PRN PRN Reason: Pain, moderate (4-7) Last Admin: 03/22/18 14:19 Dose: 325 mg Albuterol/Ipratropium (Duoneb 3 Mg/0.5 Mg (3 Ml) Ud) 3 ml INH RQ6 PRN PRN Reason: Shortness of Breath Amlodipine Besylate (Norvasc) 10 mg PO DAILY [facility] Atorvastatin Calcium (Lipitor) 20 mg PO DAILY@2200 [facility] Last Admin: 03/23/18 21:03 Dose: 20 mg Calcium Carbonate (Oscal) 500 mg PO TID [facility] Last Admin: 03/24/18 09:46 Dose: 500 mg Diphenhydramine HCl (Benadryl) 50 mg PO 08 PRN PRN Reason: Itching / Pruritus Last Admin: 03/17/18 16:47 Dose: 50 mg Heparin Sodium (Porcine) (Heparin) 5,000 units SC Q12 [facility] PRN Reason: Protocol Last Admin: 03/24/18 09:43 Dose: 5,000 units Labetalol HCl (Trandate) 200 mg PO BID [facility] Lactic Acid (Lac-Hydrin 12% Lotion (225 G)) 1 applic TOP TID PRN PRN Reason: Itching / Pruritus Last Admin: 03/23/18 16:25 Dose: 1 applic Lidocaine (Lidoderm) 1 ea TD DAILY [facility] Last Admin: 03/24/18 09:44 Dose: 1 ea Mirtazapine (Remeron) 7.5 mg PO HS [facility] Last Admin: 03/23/18 21:02 Dose: 7.5 mg Ondansetron HCl (Zofran Inj) 4 mg IVP Q4 PRN PRN Reason: Nausea/Vomiting Last Admin: 03/17/18 13:39 Dose: 4 mg Oxycodone/Acetaminophen (Percocet 5/325 Mg Tab) 1 tab PO Q4 PRN PRN Reason: Pain, moderate (4-7) Stop: 03/25/18 02:13 Last Admin: 03/22/18 02:19 Dose: 1 tab Vitamin B Complex/Vit C/Folic Acid (Nephro-Valentino) 1 tab PO DAILY [facility] Last Admin: 03/24/18 09:45 Dose: 1 tab - Labs Labs: 03/21/18 11:26 03/22/18 11:18
--- NOTE | 2018-03-24 18:58 | CP.PCM.PN ---
Subjective - Date & Time of Evaluation Date of Evaluation: 03/24/18 Time of Evaluation: 14:30 - Subjective Subjective: F/U ESRD Objective - Vital Signs/Intake and Output Vital Signs (last 24 hours): Temp Pulse Resp BP Pulse Ox 98.3 F 87 20 130/62 96 03/24/18 16:17 03/24/18 16:17 03/24/18 16:17 03/24/18 16:17 03/24/18 16:17 - Medications Medications: Current Medications Acetaminophen (Tylenol 325mg Tab) 325 mg PO Q4 PRN PRN Reason: Pain, moderate (4-7) Last Admin: 03/22/18 14:19 Dose: 325 mg Albuterol/Ipratropium (Duoneb 3 Mg/0.5 Mg (3 Ml) Ud) 3 ml INH RQ6 PRN PRN Reason: Shortness of Breath Amlodipine Besylate (Norvasc) 10 mg PO DAILY [facility] Last Admin: 03/24/18 11:00 Dose: Not Given Atorvastatin Calcium (Lipitor) 20 mg PO DAILY@2200 [facility] Last Admin: 03/23/18 21:03 Dose: 20 mg Calcium Carbonate (Oscal) 500 mg PO TID [facility] Last Admin: 03/24/18 17:00 Dose: 500 mg Diphenhydramine HCl (Benadryl) 50 mg PO 08 PRN PRN Reason: Itching / Pruritus Last Admin: 03/17/18 16:47 Dose: 50 mg Heparin Sodium (Porcine) (Heparin) 5,000 units SC Q12 [facility] PRN Reason: Protocol Last Admin: 03/24/18 09:43 Dose: 5,000 units Labetalol HCl (Trandate) 200 mg PO BID [facility] Last Admin: 03/24/18 17:01 Dose: 200 mg Lactic Acid (Lac-Hydrin 12% Lotion (225 G)) 1 applic TOP TID PRN PRN Reason: Itching / Pruritus Last Admin: 03/23/18 16:25 Dose: 1 applic Lidocaine (Lidoderm) 1 ea TD DAILY [facility] Last Admin: 03/24/18 09:44 Dose: 1 ea Mirtazapine (Remeron) 7.5 mg PO HS [facility] Last Admin: 03/23/18 21:02 Dose: 7.5 mg Ondansetron HCl (Zofran Inj) 4 mg IVP Q4 PRN PRN Reason: Nausea/Vomiting Last Admin: 03/17/18 13:39 Dose: 4 mg Oxycodone/Acetaminophen (Percocet 5/325 Mg Tab) 1 tab PO Q4 PRN PRN Reason: Pain, moderate (4-7) Stop: 03/25/18 02:13 Last Admin: 03/22/18 02:19 Dose: 1 tab Vitamin B Complex/Vit C/Folic Acid (Nephro-Valentino) 1 tab PO DAILY [facility] Last Admin: 03/24/18 09:45 Dose: 1 tab - Labs Labs: 03/21/18 11:26 03/22/18 11:18 - Constitutional Appears: No Acute Distress - Head Exam Head Exam: NORMAL INSPECTION - Eye Exam Eye Exam: PERRL - ENT Exam ENT Exam: Normal Exam - Neck Exam Neck Exam: Normal Inspection - Respiratory Exam Respiratory Exam: Decreased Breath Sounds (at bases) - Cardiovascular Exam Cardiovascular Exam: REGULAR RHYTHM, Murmur - GI/Abdominal Exam GI & Abdominal Exam: Soft, Normal Bowel Sounds - Extremities Exam Extremities Exam: Normal Inspection - Back Exam Back Exam: NORMAL INSPECTION - Neurological Exam Neurological Exam: Awake Additional comments: Forgetful, no focal motor/sensory deficit. - Psychiatric Exam Psychiatric exam: Normal Mood - Skin Skin Exam: Warm Assessment and Plan (1) ESRD (end stage renal disease) on dialysis Status: Chronic (2) Noncompliance of patient with renal dialysis Status: Acute (3) Hypertension Status: Chronic (4) CHF (congestive heart failure) Status: Chronic (5) Dyslipidemia Status: Chronic (6) Dementia Status: Chronic
[2018-03-25] MEDS: Lidocaine 5% Patch TD SCH (09:05)
[2018-03-25] MEDS: Multivitamin Vitamin B Complex (Nephro-Vite) Tab PO SCH (09:06)
--- NOTE | 2018-03-25 10:33 | CP.PCM.PN ---
Subjective - Date & Time of Evaluation Date of Evaluation: 03/25/18 Time of Evaluation: 10:31 - Subjective Subjective: patient conscious and alert not in acute distress comfortable Objective - Vital Signs/Intake and Output Vital Signs (last 24 hours): Temp Pulse Resp BP Pulse Ox 98.1 F 90 19 177/85 H 94 L 03/25/18 07:45 03/25/18 09:07 03/25/18 07:45 03/25/18 09:07 03/25/18 07:45 - Medications Medications: Current Medications Acetaminophen (Tylenol 325mg Tab) 325 mg PO Q4 PRN PRN Reason: Pain, moderate (4-7) Last Admin: 03/22/18 14:19 Dose: 325 mg Albuterol/Ipratropium (Duoneb 3 Mg/0.5 Mg (3 Ml) Ud) 3 ml INH RQ6 PRN PRN Reason: Shortness of Breath Amlodipine Besylate (Norvasc) 10 mg PO DAILY [facility] Last Admin: 03/25/18 09:07 Dose: 10 mg Atorvastatin Calcium (Lipitor) 20 mg PO DAILY@2200 [facility] Last Admin: 03/24/18 21:19 Dose: 20 mg Calcium Carbonate (Oscal) 500 mg PO TID [facility] Last Admin: 03/25/18 09:07 Dose: 500 mg Diphenhydramine HCl (Benadryl) 50 mg PO 08 PRN PRN Reason: Itching / Pruritus Last Admin: 03/17/18 16:47 Dose: 50 mg Heparin Sodium (Porcine) (Heparin) 5,000 units SC Q12 [facility] PRN Reason: Protocol Last Admin: 03/25/18 09:05 Dose: 5,000 units Labetalol HCl (Trandate) 200 mg PO BID [facility] Last Admin: 03/25/18 09:08 Dose: 200 mg Lactic Acid (Lac-Hydrin 12% Lotion (225 G)) 1 applic TOP TID PRN PRN Reason: Itching / Pruritus Last Admin: 03/23/18 16:25 Dose: 1 applic Lidocaine (Lidoderm) 1 ea TD DAILY [facility] Last Admin: 03/25/18 09:05 Dose: 1 ea Mirtazapine (Remeron) 7.5 mg PO HS [facility] Last Admin: 03/24/18 21:19 Dose: 7.5 mg Ondansetron HCl (Zofran Inj) 4 mg IVP Q4 PRN PRN Reason: Nausea/Vomiting Last Admin: 03/17/18 13:39 Dose: 4 mg Vitamin B Complex/Vit C/Folic Acid (Nephro-Valentino) 1 tab PO DAILY [facility] Last Admin: 03/25/18 09:06 Dose: 1 tab - Labs Labs: 03/21/18 11:26 03/22/18 11:18 - Constitutional Appears: No Acute Distress - Eye Exam Eye Exam: Conjunctival injection - ENT Exam ENT Exam: Mucous Membranes Moist - Respiratory Exam Respiratory Exam: absent: Chest Wall Tenderness - Cardiovascular Exam Cardiovascular Exam: absent: Gallop, JVD, Rubs - GI/Abdominal Exam GI & Abdominal Exam: Soft, Normal Bowel Sounds - Extremities Exam Extremities Exam: absent: Calf Tenderness - Back Exam Back Exam: absent: CVA tenderness (L), CVA tenderness (R) - Neurological Exam Neurological Exam: Alert - Psychiatric Exam Psychiatric exam: Normal Affect - Skin Skin Exam: absent: Cyanosis Assessment and Plan (1) Hyperkalemia Status: Acute (2) CHF (congestive heart failure) Status: Chronic (3) CKD (chronic kidney disease) stage V requiring chronic dialysis Assessment & Plan: end stage renal disease on maintenance hemodialysis twice a week Sunday and Sunday Patient admitted with volume overloaded because she is missing dialysis Hyponatremia to repeat serum sodium today and the last serum sodium was before dialysis on Sunday Hypertension Anemia Noncompliance history The plan Repeat serum sodium now and hemodialysis for tomorrow and patient waiting for placement for outpatient Status: Chronic
[2018-03-25 11:32] LABS: MEAN CELL VOLUME 86.8 fl (81.0-99.0); MEAN CORPUSCULAR HEMOGLOBIN 30.5 pg (27.0-31.0); MEAN CORPUSCULAR HGB CONC 35.1 g/dL (33.0-37.0); RBC 2.95 Mil/uL (3.80-5.20); RED CELL DISTRIBUTION WIDTH 14.1 % (11.5-14.5); WHITE BLOOD COUNT 5.3 K/uL (4.8-10.8)
[2018-03-25 11:44] LABS: CALCIUM 9.2 mg/dL (8.4-10.2)
--- NOTE | 2018-03-25 16:05 | CP.PCM.PN ---
Subjective - Date & Time of Evaluation Date of Evaluation: 03/25/18 Time of Evaluation: 11:20 - Subjective Subjective: F/U ESRD no AD, N/C Objective - Vital Signs/Intake and Output Vital Signs (last 24 hours): Temp Pulse Resp BP Pulse Ox 98.1 F 90 19 177/85 H 94 L 03/25/18 07:45 03/25/18 09:07 03/25/18 07:45 03/25/18 09:07 03/25/18 07:45 - Medications Medications: Current Medications Acetaminophen (Tylenol 325mg Tab) 325 mg PO Q4 PRN PRN Reason: Pain, moderate (4-7) Last Admin: 03/22/18 14:19 Dose: 325 mg Albuterol/Ipratropium (Duoneb 3 Mg/0.5 Mg (3 Ml) Ud) 3 ml INH RQ6 PRN PRN Reason: Shortness of Breath Amlodipine Besylate (Norvasc) 10 mg PO DAILY [facility] Last Admin: 03/25/18 09:07 Dose: 10 mg Atorvastatin Calcium (Lipitor) 20 mg PO DAILY@2200 [facility] Last Admin: 03/24/18 21:19 Dose: 20 mg Calcium Carbonate (Oscal) 500 mg PO TID [facility] Last Admin: 03/25/18 09:07 Dose: 500 mg Diphenhydramine HCl (Benadryl) 50 mg PO 08 PRN PRN Reason: Itching / Pruritus Last Admin: 03/17/18 16:47 Dose: 50 mg Heparin Sodium (Porcine) (Heparin) 5,000 units SC Q12 [facility] PRN Reason: Protocol Last Admin: 03/25/18 09:05 Dose: 5,000 units Labetalol HCl (Trandate) 200 mg PO BID [facility] Last Admin: 03/25/18 09:08 Dose: 200 mg Lactic Acid (Lac-Hydrin 12% Lotion (225 G)) 1 applic TOP TID PRN PRN Reason: Itching / Pruritus Last Admin: 03/23/18 16:25 Dose: 1 applic Lidocaine (Lidoderm) 1 ea TD DAILY [facility] Last Admin: 03/25/18 09:05 Dose: 1 ea Mirtazapine (Remeron) 7.5 mg PO HS [facility] Last Admin: 03/24/18 21:19 Dose: 7.5 mg Ondansetron HCl (Zofran Inj) 4 mg IVP Q4 PRN PRN Reason: Nausea/Vomiting Last Admin: 03/17/18 13:39 Dose: 4 mg Vitamin B Complex/Vit C/Folic Acid (Nephro-Valentino) 1 tab PO DAILY [facility] Last Admin: 03/25/18 09:06 Dose: 1 tab - Labs Labs: 03/25/18 11:21 03/25/18 11:21 - Constitutional Appears: No Acute Distress - Head Exam Head Exam: NORMAL INSPECTION - Eye Exam Eye Exam: PERRL - ENT Exam ENT Exam: Normal Exam - Neck Exam Neck Exam: Normal Inspection - Respiratory Exam Respiratory Exam: Decreased Breath Sounds (at bases) - Cardiovascular Exam Cardiovascular Exam: REGULAR RHYTHM, Murmur - GI/Abdominal Exam GI & Abdominal Exam: Soft, Normal Bowel Sounds - Extremities Exam Additional comments: AV fistula - Back Exam Back Exam: NORMAL INSPECTION - Neurological Exam Neurological Exam: Awake Additional comments: Forgetful, no focal motor/sensory deficit. - Psychiatric Exam Psychiatric exam: Normal Affect - Skin Skin Exam: Warm Assessment and Plan (1) ESRD (end stage renal disease) on dialysis Status: Chronic (2) Noncompliance of patient with renal dialysis Status: Acute (3) Hypertension Status: Chronic (4) CHF (congestive heart failure) Status: Chronic (5) Dyslipidemia Assessment & Plan: continue HD, Norvasc, Labetalol, DuoNeb , Social Service working to get Dialysis place out patient Status: Chronic (6) Dementia Status: Chronic
--- NOTE | 2018-03-26 05:17 | CP.PCM.PCO ---
Physician Communication Note - Physician Communication Note Physician Communication Note: paged by nurse, patient fell in room Assessment/Plan - Assessment and Plan (Free Text) Assessment: Patient seen and examined at bedside, reports she was getting up yo go to the bathroom-slipped and hit the back of her head on the floor. Denies syncope, weakness, dizziness, visual changes. Physical Exam: in no acute distress, alert, awake, oriented to self and place, verbal, follows commands, normal gait, EOMI, moving all extremities, no bleeding /bruising Plan: Stat Head CT ordered, fall precautions placed, bed alarm - Date & Time Date: 03/26/18 Time: 05:17
--- NOTE | 2018-03-26 10:48 | CT ---
Date of service: 03/26/2018 PROCEDURE: CT HEAD WITHOUT CONTRAST. HISTORY: head trauma s/p mechanical fall COMPARISON: Noncontrast head CT 10/07/2017. TECHNIQUE: Axial computed tomography images were obtained through the head/brain without intravenous contrast. Radiation dose: Total exam DLP = 992.63 mGy-cm. This CT exam was performed using one or more of the following dose reduction techniques: Automated exposure control, adjustment of the mA and/or kV according to patient size, and/or use of iterative reconstruction technique. FINDINGS: HEMORRHAGE: No intracranial hemorrhage. BRAIN: Good corticomedullary differentiation is seen. Proportional, diffuse expansion of the ventriculosulcal and cisternal spaces is appreciated with relatively prominent white matter lucency compatible with diffuse cerebral atrophy and chronic microangiopathy once again. No suspicious extra-axial fluid collection is identified and the midline brain anatomy appears grossly nonfocal as imaged. There is no mass effect throughout. VENTRICLES: Unremarkable. No hydrocephalus. CALVARIUM: No destructive bony lesion or displaced fracture identified including through the skullbase. PARANASAL SINUSES: Unremarkable as visualized. No significant inflammatory changes. MASTOID AIR CELLS: Unremarkable as visualized. No inflammatory changes. OTHER FINDINGS: None. IMPRESSION: Stable appearing age related neuro degenerative findings as discussed above without definite acute findings by standard CT criteria. No fracture identified. Concordant preliminary report from [facility], 03/26/2018.
[2018-03-26] MEDS: Lidocaine 5% Patch TD SCH (11:24)
--- NOTE | 2018-03-26 11:24 | CP.PCM.PN ---
Subjective - Date & Time of Evaluation Date of Evaluation: 03/26/18 Time of Evaluation: 11:23 - Subjective Subjective: patient feeling good no significant changes Patient waiting for placement Objective - Vital Signs/Intake and Output Vital Signs (last 24 hours): Temp Pulse Resp BP Pulse Ox 97.7 F 80 19 149/72 96 03/26/18 05:00 03/26/18 05:00 03/26/18 05:00 03/26/18 05:00 03/26/18 05:00 - Medications Medications: Current Medications Acetaminophen (Tylenol 325mg Tab) 325 mg PO Q4 PRN PRN Reason: Pain, moderate (4-7) Last Admin: 03/22/18 14:19 Dose: 325 mg Albuterol/Ipratropium (Duoneb 3 Mg/0.5 Mg (3 Ml) Ud) 3 ml INH RQ6 PRN PRN Reason: Shortness of Breath Amlodipine Besylate (Norvasc) 10 mg PO DAILY [facility] Last Admin: 03/25/18 09:07 Dose: 10 mg Atorvastatin Calcium (Lipitor) 20 mg PO DAILY@2200 [facility] Last Admin: 03/25/18 21:01 Dose: 20 mg Calcium Carbonate (Oscal) 500 mg PO TID [facility] Last Admin: 03/25/18 17:08 Dose: 500 mg Diphenhydramine HCl (Benadryl) 50 mg PO 08 PRN PRN Reason: Itching / Pruritus Last Admin: 03/17/18 16:47 Dose: 50 mg Heparin Sodium (Porcine) (Heparin) 5,000 units SC Q12 [facility] PRN Reason: Protocol Last Admin: 03/25/18 21:06 Dose: Not Given Labetalol HCl (Trandate) 200 mg PO BID [facility] Last Admin: 03/25/18 17:09 Dose: 200 mg Lactic Acid (Lac-Hydrin 12% Lotion (225 G)) 1 applic TOP TID PRN PRN Reason: Itching / Pruritus Last Admin: 03/23/18 16:25 Dose: 1 applic Lidocaine (Lidoderm) 1 ea TD DAILY [facility] Last Admin: 03/25/18 09:05 Dose: 1 ea Mirtazapine (Remeron) 7.5 mg PO HS [facility] Last Admin: 03/25/18 21:01 Dose: 7.5 mg Ondansetron HCl (Zofran Inj) 4 mg IVP Q4 PRN PRN Reason: Nausea/Vomiting Last Admin: 03/17/18 13:39 Dose: 4 mg Vitamin B Complex/Vit C/Folic Acid (Nephro-Valentino) 1 tab PO DAILY [facility] Last Admin: 03/25/18 09:06 Dose: 1 tab - Labs Labs: 03/25/18 11:21 03/25/18 11:21 - Constitutional Appears: No Acute Distress - ENT Exam ENT Exam: Mucous Membranes Moist - Neck Exam Neck Exam: absent: Lymphadenopathy - Respiratory Exam Respiratory Exam: NORMAL BREATHING PATTERN. absent: Chest Wall Tenderness, Wheezes - Cardiovascular Exam Cardiovascular Exam: absent: Gallop, JVD, Rubs - GI/Abdominal Exam GI & Abdominal Exam: Soft, Normal Bowel Sounds - Extremities Exam Extremities Exam: absent: Calf Tenderness - Back Exam Back Exam: absent: CVA tenderness (L), CVA tenderness (R) - Neurological Exam Neurological Exam: Alert - Skin Skin Exam: absent: Cyanosis Assessment and Plan (1) Hyperkalemia Status: Acute (2) CHF (congestive heart failure) Status: Chronic (3) CKD (chronic kidney disease) stage V requiring chronic dialysis Assessment & Plan: Assessment & Plan: end stage renal disease on maintenance hemodialysis twice a week Sunday and Sunday Patient admitted with volume overloaded because she is missing dialysis Hyponatremia Hypertension Anemia Noncompliance history the plan [facility] is scheduled to have dialysis shortly Sodium bath 138 Potassium bath 2 mEq Ultrafiltration 2500 mL Serum sodium expected to be improving post hemodialysis Status: Chronic
[2018-03-26] MEDS: Multivitamin Vitamin B Complex (Nephro-Vite) Tab PO SCH (11:25)
--- NOTE | 2018-03-26 15:08 | CP.PCM.PN ---
Subjective - Date & Time of Evaluation Date of Evaluation: 03/26/18 Time of Evaluation: 10:00 - Subjective Subjective: F/U ESRD no AD, N/C Objective - Vital Signs/Intake and Output Vital Signs (last 24 hours): Temp Pulse Resp BP Pulse Ox 97.7 F 80 19 149/72 96 03/26/18 05:00 03/26/18 11:25 03/26/18 05:00 03/26/18 11:25 03/26/18 05:00 - Medications Medications: Current Medications Acetaminophen (Tylenol 325mg Tab) 325 mg PO Q4 PRN PRN Reason: Pain, moderate (4-7) Last Admin: 03/22/18 14:19 Dose: 325 mg Albuterol/Ipratropium (Duoneb 3 Mg/0.5 Mg (3 Ml) Ud) 3 ml INH RQ6 PRN PRN Reason: Shortness of Breath Amlodipine Besylate (Norvasc) 10 mg PO DAILY [facility] Last Admin: 03/26/18 11:25 Dose: 10 mg Atorvastatin Calcium (Lipitor) 20 mg PO DAILY@2200 [facility] Last Admin: 03/25/18 21:01 Dose: 20 mg Calcium Carbonate (Oscal) 500 mg PO TID [facility] Last Admin: 03/26/18 14:31 Dose: 500 mg Diphenhydramine HCl (Benadryl) 50 mg PO 08 PRN PRN Reason: Itching / Pruritus Last Admin: 03/17/18 16:47 Dose: 50 mg Heparin Sodium (Porcine) (Heparin) 5,000 units SC Q12 [facility] PRN Reason: Protocol Last Admin: 03/26/18 11:23 Dose: 5,000 units Labetalol HCl (Trandate) 200 mg PO BID [facility] Last Admin: 03/26/18 09:30 Dose: 200 mg Lactic Acid (Lac-Hydrin 12% Lotion (225 G)) 1 applic TOP TID PRN PRN Reason: Itching / Pruritus Last Admin: 03/23/18 16:25 Dose: 1 applic Lidocaine (Lidoderm) 1 ea TD DAILY [facility] Last Admin: 03/26/18 11:24 Dose: 1 ea Mirtazapine (Remeron) 7.5 mg PO HS [facility] Last Admin: 03/25/18 21:01 Dose: 7.5 mg Ondansetron HCl (Zofran Inj) 4 mg IVP Q4 PRN PRN Reason: Nausea/Vomiting Last Admin: 03/17/18 13:39 Dose: 4 mg Vitamin B Complex/Vit C/Folic Acid (Nephro-Valentino) 1 tab PO DAILY [facility] Last Admin: 03/26/18 11:25 Dose: 1 tab - Labs Labs: 03/25/18 11:21 03/25/18 11:21 - Constitutional Appears: No Acute Distress - Head Exam Head Exam: NORMAL INSPECTION - Eye Exam Eye Exam: PERRL - ENT Exam ENT Exam: Normal Exam - Neck Exam Neck Exam: Normal Inspection - Respiratory Exam Respiratory Exam: Decreased Breath Sounds (at bases) - Cardiovascular Exam Cardiovascular Exam: REGULAR RHYTHM, Murmur - GI/Abdominal Exam GI & Abdominal Exam: Soft, Normal Bowel Sounds - Rectal Exam Additional comments: AV fistula - Extremities Exam Extremities Exam: Normal Inspection - Back Exam Back Exam: NORMAL INSPECTION - Neurological Exam Neurological Exam: Awake Additional comments: Forgetful, no focal motor/sensory deficit. - Psychiatric Exam Psychiatric exam: Normal Affect - Skin Skin Exam: Warm Assessment and Plan (1) ESRD (end stage renal disease) on dialysis Status: Chronic (2) Noncompliance of patient with renal dialysis Status: Acute (3) Hypertension Status: Chronic (4) CHF (congestive heart failure) Status: Chronic (5) Dyslipidemia Status: Chronic (6) Dementia Status: Chronic - Assessment and Plan (Free Text) Plan: continue HD, Norvasc , Labetalol, Social Service working for out patient dialysis place
[2018-03-26] MEDS ORDERED: Lidocaine/Prilocaine CREAM 5GM TP ONE ×2 (15:32→15:35)
[2018-03-27] MEDS: Albuterol-Ipratrop 3 mg / 0.5 (3 ml) UD INH PRN (06:48)
[2018-03-27] MEDS: Multivitamin Vitamin B Complex (Nephro-Vite) Tab PO SCH (09:00)
[2018-03-27] MEDS: Lidocaine 5% Patch TD SCH (09:06)
--- NOTE | 2018-03-27 13:11 | CP.PCM.PN ---
Subjective - Date & Time of Evaluation Date of Evaluation: 03/27/18 Time of Evaluation: 13:10 - Subjective Subjective: no changes patient in bed No chest pain no shortness of breath. Objective - Vital Signs/Intake and Output Vital Signs (last 24 hours): Temp Pulse Resp BP Pulse Ox 98.7 F 65 20 160/61 H 100 03/27/18 08:25 03/27/18 09:00 03/27/18 08:25 03/27/18 09:00 03/27/18 08:25 - Medications Medications: Current Medications Acetaminophen (Tylenol 325mg Tab) 325 mg PO Q4 PRN PRN Reason: Pain, moderate (4-7) Last Admin: 03/22/18 14:19 Dose: 325 mg Albuterol/Ipratropium (Duoneb 3 Mg/0.5 Mg (3 Ml) Ud) 3 ml INH RQ6 PRN PRN Reason: Shortness of Breath Last Admin: 03/27/18 06:48 Dose: 3 ml Amlodipine Besylate (Norvasc) 10 mg PO DAILY [facility] Last Admin: 03/27/18 09:00 Dose: 10 mg Atorvastatin Calcium (Lipitor) 20 mg PO DAILY@2200 [facility] Last Admin: 03/26/18 21:11 Dose: 20 mg Calcium Carbonate (Oscal) 500 mg PO TID [facility] Last Admin: 03/27/18 12:13 Dose: 500 mg Diphenhydramine HCl (Benadryl) 50 mg PO 08 PRN PRN Reason: Itching / Pruritus Last Admin: 03/17/18 16:47 Dose: 50 mg Heparin Sodium (Porcine) (Heparin) 5,000 units SC Q12 [facility] PRN Reason: Protocol Last Admin: 03/27/18 08:59 Dose: 5,000 units Labetalol HCl (Trandate) 200 mg PO BID [facility] Last Admin: 03/27/18 09:01 Dose: 200 mg Lactic Acid (Lac-Hydrin 12% Lotion (225 G)) 1 applic TOP TID PRN PRN Reason: Itching / Pruritus Last Admin: 03/23/18 16:25 Dose: 1 applic Lidocaine (Lidoderm) 1 ea TD DAILY [facility] Last Admin: 03/27/18 09:06 Dose: Not Given Mirtazapine (Remeron) 7.5 mg PO HS [facility] Last Admin: 03/26/18 21:11 Dose: 7.5 mg Ondansetron HCl (Zofran Inj) 4 mg IVP Q4 PRN PRN Reason: Nausea/Vomiting Last Admin: 03/17/18 13:39 Dose: 4 mg Vitamin B Complex/Vit C/Folic Acid (Nephro-Valentino) 1 tab PO DAILY [facility] Last Admin: 03/27/18 09:00 Dose: 1 tab - Labs Labs: 03/25/18 11:21 03/25/18 11:21 - Constitutional Appears: No Acute Distress - Eye Exam Eye Exam: Conjunctival injection - ENT Exam ENT Exam: Mucous Membranes Moist - Neck Exam Neck Exam: absent: Lymphadenopathy - Respiratory Exam Respiratory Exam: NORMAL BREATHING PATTERN. absent: Chest Wall Tenderness - GI/Abdominal Exam GI & Abdominal Exam: Soft, Normal Bowel Sounds - Extremities Exam Extremities Exam: absent: Calf Tenderness - Back Exam Back Exam: absent: CVA tenderness (L), CVA tenderness (R) - Neurological Exam Neurological Exam: Alert - Psychiatric Exam Psychiatric exam: Normal Affect - Skin Skin Exam: absent: Cyanosis Assessment and Plan (1) Hyperkalemia Status: Acute (2) CHF (congestive heart failure) Status: Chronic (3) CKD (chronic kidney disease) stage V requiring chronic dialysis Assessment & Plan: end stage renal disease on maintenance hemodialysis twice a week Sunday and Sunday Patient admitted with volume overloaded because she is missing dialysis Hyponatremia Hypertension Anemia Noncompliance history the plan hemodialysis Sunday as plan Patient waiting for placement by the social service Continue with the rest of the medication Status: Chronic
--- NOTE | 2018-03-27 16:02 | CP.PCM.PN ---
Subjective - Date & Time of Evaluation Date of Evaluation: 03/27/18 Time of Evaluation: 14:20 - Subjective Subjective: F/U ESRD Awake, forgetful, no A/D. Objective - Vital Signs/Intake and Output Vital Signs (last 24 hours): Temp Pulse Resp BP Pulse Ox 98.7 F 65 20 160/61 H 100 03/27/18 08:25 03/27/18 09:00 03/27/18 08:25 03/27/18 09:00 03/27/18 08:25 - Medications Medications: Current Medications Acetaminophen (Tylenol 325mg Tab) 325 mg PO Q4 PRN PRN Reason: Pain, moderate (4-7) Last Admin: 03/22/18 14:19 Dose: 325 mg Albuterol/Ipratropium (Duoneb 3 Mg/0.5 Mg (3 Ml) Ud) 3 ml INH RQ6 PRN PRN Reason: Shortness of Breath Last Admin: 03/27/18 06:48 Dose: 3 ml Amlodipine Besylate (Norvasc) 10 mg PO DAILY [facility] Last Admin: 03/27/18 09:00 Dose: 10 mg Atorvastatin Calcium (Lipitor) 20 mg PO DAILY@2200 [facility] Last Admin: 03/26/18 21:11 Dose: 20 mg Calcium Carbonate (Oscal) 500 mg PO TID [facility] Last Admin: 03/27/18 12:13 Dose: 500 mg Diphenhydramine HCl (Benadryl) 50 mg PO 08 PRN PRN Reason: Itching / Pruritus Last Admin: 03/17/18 16:47 Dose: 50 mg Heparin Sodium (Porcine) (Heparin) 5,000 units SC Q12 [facility] PRN Reason: Protocol Last Admin: 03/27/18 08:59 Dose: 5,000 units Labetalol HCl (Trandate) 200 mg PO BID [facility] Last Admin: 03/27/18 09:01 Dose: 200 mg Lactic Acid (Lac-Hydrin 12% Lotion (225 G)) 1 applic TOP TID PRN PRN Reason: Itching / Pruritus Last Admin: 03/23/18 16:25 Dose: 1 applic Lidocaine (Lidoderm) 1 ea TD DAILY [facility] Last Admin: 03/27/18 09:06 Dose: Not Given Mirtazapine (Remeron) 7.5 mg PO HS [facility] Last Admin: 03/26/18 21:11 Dose: 7.5 mg Ondansetron HCl (Zofran Inj) 4 mg IVP Q4 PRN PRN Reason: Nausea/Vomiting Last Admin: 03/17/18 13:39 Dose: 4 mg Vitamin B Complex/Vit C/Folic Acid (Nephro-Valentino) 1 tab PO DAILY [facility] Last Admin: 03/27/18 09:00 Dose: 1 tab - Labs Labs: 03/25/18 11:21 03/25/18 11:21 - Constitutional Appears: No Acute Distress - Head Exam Head Exam: NORMAL INSPECTION - Eye Exam Eye Exam: PERRL - ENT Exam ENT Exam: Normal Exam - Neck Exam Neck Exam: Normal Inspection - Respiratory Exam Respiratory Exam: Decreased Breath Sounds (at bases) - Cardiovascular Exam Cardiovascular Exam: REGULAR RHYTHM, Murmur - GI/Abdominal Exam GI & Abdominal Exam: Soft, Normal Bowel Sounds - Extremities Exam Extremities Exam: Normal Inspection - Back Exam Back Exam: NORMAL INSPECTION - Neurological Exam Neurological Exam: Awake Additional comments: Forgetful, no focal motor/sensory deficit. - Psychiatric Exam Psychiatric exam: Normal Affect - Skin Skin Exam: Warm Assessment and Plan (1) ESRD (end stage renal disease) on dialysis Status: Chronic (2) Noncompliance of patient with renal dialysis Status: Acute (3) Hypertension Status: Chronic (4) CHF (congestive heart failure) Status: Chronic (5) Dyslipidemia Status: Chronic (6) Dementia Status: Chronic - Assessment and Plan (Free Text) Plan: Continue HD and current Tx.
--- NOTE | 2018-03-27 18:17 | CP.PCM.PN ---
<Jazmine Venegas - Last Filed: 03/27/18 18:22> Subjective - Date & Time of Evaluation Date of Evaluation: 03/27/18 Time of Evaluation: 18:17 - Subjective Subjective: CARDIOLOGY PROGRESS NOTE FOR DR. MASON PorterO. PGY-1 Pt seen and examined at bedside this am. No acute complaints or nursing events overnight. Denies fevers, chills, chest pain, palpitations, shortness of breath , nausea, vomiting, constipation, diarrhea. Objective - Vital Signs/Intake and Output Vital Signs (last 24 hours): Temp Pulse Resp BP Pulse Ox 98.6 F 75 20 155/64 H 96 03/27/18 16:27 03/27/18 16:27 03/27/18 16:27 03/27/18 16:27 03/27/18 16:27 - Medications Medications: Current Medications Acetaminophen (Tylenol 325mg Tab) 325 mg PO Q4 PRN PRN Reason: Pain, moderate (4-7) Last Admin: 03/22/18 14:19 Dose: 325 mg Albuterol/Ipratropium (Duoneb 3 Mg/0.5 Mg (3 Ml) Ud) 3 ml INH RQ6 PRN PRN Reason: Shortness of Breath Last Admin: 03/27/18 06:48 Dose: 3 ml Amlodipine Besylate (Norvasc) 10 mg PO DAILY [facility] Last Admin: 03/27/18 09:00 Dose: 10 mg Atorvastatin Calcium (Lipitor) 20 mg PO DAILY@2200 [facility] Last Admin: 03/26/18 21:11 Dose: 20 mg Calcium Carbonate (Oscal) 500 mg PO TID [facility] Last Admin: 03/27/18 16:35 Dose: 500 mg Diphenhydramine HCl (Benadryl) 50 mg PO 08 PRN PRN Reason: Itching / Pruritus Last Admin: 03/17/18 16:47 Dose: 50 mg Heparin Sodium (Porcine) (Heparin) 5,000 units SC Q12 [facility] PRN Reason: Protocol Last Admin: 03/27/18 08:59 Dose: 5,000 units Labetalol HCl (Trandate) 200 mg PO BID [facility] Last Admin: 03/27/18 16:35 Dose: 200 mg Lactic Acid (Lac-Hydrin 12% Lotion (225 G)) 1 applic TOP TID PRN PRN Reason: Itching / Pruritus Last Admin: 03/23/18 16:25 Dose: 1 applic Lidocaine (Lidoderm) 1 ea TD DAILY [facility] Last Admin: 03/27/18 09:06 Dose: Not Given Mirtazapine (Remeron) 7.5 mg PO HS [facility] Last Admin: 03/26/18 21:11 Dose: 7.5 mg Ondansetron HCl (Zofran Inj) 4 mg IVP Q4 PRN PRN Reason: Nausea/Vomiting Last Admin: 03/17/18 13:39 Dose: 4 mg Vitamin B Complex/Vit C/Folic Acid (Nephro-Valentino) 1 tab PO DAILY [facility] Last Admin: 03/27/18 09:00 Dose: 1 tab - Labs Labs: 03/25/18 11:21 03/25/18 11:21 - Constitutional Appears: Well, Non-toxic, No Acute Distress - Head Exam Head Exam: NORMAL INSPECTION, NORMOCEPHALIC - Eye Exam Eye Exam: EOMI, Normal appearance - ENT Exam ENT Exam: Mucous Membranes Moist, Normal Exam - Respiratory Exam Respiratory Exam: Clear to Ausculation Bilateral, NORMAL BREATHING PATTERN - Cardiovascular Exam Cardiovascular Exam: REGULAR RHYTHM, +S1, +S2 - GI/Abdominal Exam GI & Abdominal Exam: Soft, Normal Bowel Sounds - Extremities Exam Extremities Exam: Normal Capillary Refill, Normal Inspection - Back Exam Back Exam: NORMAL INSPECTION - Neurological Exam Neurological Exam: Awake, Oriented x3 - Psychiatric Exam Psychiatric exam: Normal Affect, Normal Mood - Skin Skin Exam: Dry, Warm Assessment and Plan - Assessment and Plan (Free Text) Assessment: 77 y/o F ESRD on HD, CHF, , HTN admitted for hyperkalemia Plan: (1) CHF (congestive heart failure) Assessment and Plan: Continue HD to remove fluid add hydralazine + nitrates for CHF Status: Chronic Priority: Medium (2) Hyperkalemia Status: Acute Priority: High continue HD. f/u nephro recs (3) Missed dialysis Status: Acute (4) Renal failure Status: Acute (5) Accelerated hypertension Status: Acute Continue amlodipine, labetalol. Increase dose prn continue atorvastatin (6) Aortic stenosis Status: Acute <Anthony Agarwal - Last Filed: 03/29/18 17:23> Objective - Vital Signs/Intake and Output Vital Signs (last 24 hours): Temp Pulse Resp BP Pulse Ox 97.7 F 59 L 15 117/45 L 100 03/29/18 16:21 03/29/18 16:00 03/29/18 16:00 03/29/18 16:00 03/29/18 16:00 Intake and Output: 03/29/18 03/29/18 06:59 18:59 Intake Total 200 Balance 200 - Medications Medications: Current Medications Acetaminophen (Tylenol 325mg Tab) 325 mg PO Q4 PRN PRN Reason: Pain, moderate (4-7) Last Admin: 03/29/18 16:21 Dose: 325 mg Albuterol/Ipratropium (Duoneb 3 Mg/0.5 Mg (3 Ml) Ud) 3 ml INH RQ6 PRN PRN Reason: Shortness of Breath Amlodipine Besylate (Norvasc) 10 mg PO DAILY [facility] Atorvastatin Calcium (Lipitor) 20 mg PO DAILY@2200 [facility] Calcium Carbonate (Oscal) 500 mg PO TID [facility] Last Admin: 03/29/18 16:21 Dose: 500 mg Diphenhydramine HCl (Benadryl) 50 mg PO 08 PRN PRN Reason: Itching / Pruritus Heparin Sodium (Porcine) (Heparin) 5,000 units SC Q12 [facility] PRN Reason: Protocol Labetalol HCl (Trandate) 200 mg PO BID [facility] Last Admin: 03/29/18 16:14 Dose: Not Given Lactic Acid (Lac-Hydrin 12% Lotion (225 G)) 1 applic TOP TID PRN PRN Reason: Itching / Pruritus Lidocaine (Lidoderm) 1 ea TD DAILY [facility] Lidocaine/Prilocaine (Lidocaine/Prilocaine 2.5%-2.5%) 1 applic TP DAILY PRN PRN Reason: Pain, Mild (1-3) Mirtazapine (Remeron) 7.5 mg PO HS [facility] Ondansetron HCl (Zofran Inj) 4 mg IVP Q4 PRN PRN Reason: Nausea/Vomiting Vitamin B Complex/Vit C/Folic Acid (Nephro-Valentino) 1 tab PO DAILY [facility] - Labs Labs: 03/29/18 14:38 03/29/18 14:38 Assessment and Plan (1) CHF (congestive heart failure) Status: Chronic (2) Hyperkalemia Status: Acute (3) Missed dialysis Status: Acute (4) Renal failure Status: Acute (5) Accelerated hypertension Status: Acute (6) Aortic stenosis Status: Acute Attending/Attestation - Attestation I have personally seen and examined this patient.: Yes I have fully participated in the care of the patient.: Yes I have reviewed all pertinent clinical information, including history, physical exam and plan: Yes
[2018-03-28] MEDS: Albuterol-Ipratrop 3 mg / 0.5 (3 ml) UD INH PRN (09:09)
[2018-03-28] MEDS: Lidocaine 5% Patch TD SCH (09:17)
[2018-03-28] MEDS: Multivitamin Vitamin B Complex (Nephro-Vite) Tab PO SCH (09:18)
--- NOTE | 2018-03-28 10:05 | CP.PCM.PN ---
Subjective - Date & Time of Evaluation Date of Evaluation: 03/28/18 Time of Evaluation: 10:03 - Subjective Subjective: patient conscious and alert not in acute distress Objective - Vital Signs/Intake and Output Vital Signs (last 24 hours): Temp Pulse Resp BP Pulse Ox 98.1 F 76 18 156/69 H 99 03/28/18 08:49 03/28/18 09:48 03/28/18 08:49 03/28/18 09:48 03/28/18 08:49 - Medications Medications: Current Medications Acetaminophen (Tylenol 325mg Tab) 325 mg PO Q4 PRN PRN Reason: Pain, moderate (4-7) Last Admin: 03/22/18 14:19 Dose: 325 mg Albuterol/Ipratropium (Duoneb 3 Mg/0.5 Mg (3 Ml) Ud) 3 ml INH RQ6 PRN PRN Reason: Shortness of Breath Last Admin: 03/28/18 09:09 Dose: 3 ml Amlodipine Besylate (Norvasc) 10 mg PO DAILY [facility] Last Admin: 03/28/18 09:50 Dose: 10 mg Atorvastatin Calcium (Lipitor) 20 mg PO DAILY@2200 [facility] Last Admin: 03/27/18 21:02 Dose: 20 mg Calcium Carbonate (Oscal) 500 mg PO TID [facility] Last Admin: 03/28/18 09:18 Dose: 500 mg Diphenhydramine HCl (Benadryl) 50 mg PO 08 PRN PRN Reason: Itching / Pruritus Last Admin: 03/17/18 16:47 Dose: 50 mg Heparin Sodium (Porcine) (Heparin) 5,000 units SC Q12 [facility] PRN Reason: Protocol Last Admin: 03/28/18 09:17 Dose: 5,000 units Labetalol HCl (Trandate) 200 mg PO BID [facility] Last Admin: 03/28/18 09:50 Dose: 200 mg Lactic Acid (Lac-Hydrin 12% Lotion (225 G)) 1 applic TOP TID PRN PRN Reason: Itching / Pruritus Last Admin: 03/23/18 16:25 Dose: 1 applic Lidocaine (Lidoderm) 1 ea TD DAILY [facility] Last Admin: 03/28/18 09:17 Dose: Not Given Mirtazapine (Remeron) 7.5 mg PO HS [facility] Last Admin: 03/27/18 21:02 Dose: 7.5 mg Ondansetron HCl (Zofran Inj) 4 mg IVP Q4 PRN PRN Reason: Nausea/Vomiting Last Admin: 03/17/18 13:39 Dose: 4 mg Vitamin B Complex/Vit C/Folic Acid (Nephro-Valentino) 1 tab PO DAILY [facility] Last Admin: 03/28/18 09:18 Dose: 1 tab - Labs Labs: 03/25/18 11:21 03/25/18 11:21 - Constitutional Appears: No Acute Distress - Eye Exam Eye Exam: Conjunctival injection - ENT Exam ENT Exam: Mucous Membranes Moist - Neck Exam Neck Exam: absent: Lymphadenopathy - Respiratory Exam Respiratory Exam: NORMAL BREATHING PATTERN - Cardiovascular Exam Cardiovascular Exam: absent: JVD, Rubs - GI/Abdominal Exam GI & Abdominal Exam: Normal Bowel Sounds - Extremities Exam Extremities Exam: absent: Calf Tenderness - Back Exam Back Exam: absent: CVA tenderness (L), CVA tenderness (R) - Neurological Exam Neurological Exam: Alert - Psychiatric Exam Psychiatric exam: Normal Affect - Skin Skin Exam: absent: Cyanosis Assessment and Plan (1) Hyperkalemia Status: Acute (2) CHF (congestive heart failure) Status: Chronic (3) CKD (chronic kidney disease) stage V requiring chronic dialysis Assessment & Plan: end stage renal disease on maintenance hemodialysis twice a week Sunday and Sunday Patient admitted with volume overloaded because she is missing dialysis Hyponatremia Hypertension Anemia Noncompliance history the plan Patient scheduled for hemodialysis for tomorrow Repeat BMP and follow-up bone serum sodium Patient has a chronic hyponatremia usually improved post dialysis Status: Chronic
--- NOTE | 2018-03-28 15:33 | CP.PCM.PN ---
Subjective - Date & Time of Evaluation Date of Evaluation: 03/28/18 Time of Evaluation: 09:00 - Subjective Subjective: F/U ESRD Pt awake, no A/D Objective - Vital Signs/Intake and Output Vital Signs (last 24 hours): Temp Pulse Resp BP Pulse Ox 98.1 F 76 18 156/69 H 99 03/28/18 08:49 03/28/18 09:48 03/28/18 08:49 03/28/18 09:48 03/28/18 08:49 - Medications Medications: Current Medications Acetaminophen (Tylenol 325mg Tab) 325 mg PO Q4 PRN PRN Reason: Pain, moderate (4-7) Last Admin: 03/22/18 14:19 Dose: 325 mg Albuterol/Ipratropium (Duoneb 3 Mg/0.5 Mg (3 Ml) Ud) 3 ml INH RQ6 PRN PRN Reason: Shortness of Breath Last Admin: 03/28/18 09:09 Dose: 3 ml Amlodipine Besylate (Norvasc) 10 mg PO DAILY [facility] Last Admin: 03/28/18 09:50 Dose: 10 mg Atorvastatin Calcium (Lipitor) 20 mg PO DAILY@2200 [facility] Last Admin: 03/27/18 21:02 Dose: 20 mg Calcium Carbonate (Oscal) 500 mg PO TID [facility] Last Admin: 03/28/18 12:52 Dose: 500 mg Diphenhydramine HCl (Benadryl) 50 mg PO 08 PRN PRN Reason: Itching / Pruritus Last Admin: 03/17/18 16:47 Dose: 50 mg Heparin Sodium (Porcine) (Heparin) 5,000 units SC Q12 [facility] PRN Reason: Protocol Last Admin: 03/28/18 09:17 Dose: 5,000 units Labetalol HCl (Trandate) 200 mg PO BID [facility] Last Admin: 03/28/18 09:50 Dose: 200 mg Lactic Acid (Lac-Hydrin 12% Lotion (225 G)) 1 applic TOP TID PRN PRN Reason: Itching / Pruritus Last Admin: 03/23/18 16:25 Dose: 1 applic Lidocaine (Lidoderm) 1 ea TD DAILY [facility] Last Admin: 03/28/18 09:17 Dose: Not Given Mirtazapine (Remeron) 7.5 mg PO HS [facility] Last Admin: 03/27/18 21:02 Dose: 7.5 mg Ondansetron HCl (Zofran Inj) 4 mg IVP Q4 PRN PRN Reason: Nausea/Vomiting Last Admin: 03/17/18 13:39 Dose: 4 mg Vitamin B Complex/Vit C/Folic Acid (Nephro-Valentino) 1 tab PO DAILY [facility] Last Admin: 03/28/18 09:18 Dose: 1 tab - Labs Labs: 03/25/18 11:21 03/25/18 11:21 - Constitutional Appears: No Acute Distress - Head Exam Head Exam: NORMAL INSPECTION - Eye Exam Eye Exam: PERRL - ENT Exam ENT Exam: Normal Exam - Neck Exam Neck Exam: Normal Inspection - Respiratory Exam Respiratory Exam: Decreased Breath Sounds - Cardiovascular Exam Cardiovascular Exam: REGULAR RHYTHM, Murmur - GI/Abdominal Exam GI & Abdominal Exam: Soft, Normal Bowel Sounds - Extremities Exam Extremities Exam: Normal Inspection - Back Exam Back Exam: NORMAL INSPECTION - Neurological Exam Neurological Exam: Awake Additional comments: Forgetful, no focal motor/sensory deficit - Psychiatric Exam Psychiatric exam: Normal Affect - Skin Skin Exam: Warm Assessment and Plan (1) ESRD (end stage renal disease) on dialysis Status: Chronic (2) Noncompliance of patient with renal dialysis Status: Acute (3) Hypertension Status: Chronic (4) CHF (congestive heart failure) Status: Chronic (5) Dyslipidemia Status: Chronic (6) Dementia Status: Chronic - Assessment and Plan (Free Text) Plan: HD cancelled today, will have HD tomorrow, Social Service working for HD place as out Pt.
[2018-03-29] MEDS: Albuterol-Ipratrop 3 mg / 0.5 (3 ml) UD INH PRN ×2 (08:02→13:48)
[2018-03-29] MEDS: Lidocaine 5% Patch TD SCH (08:43)
[2018-03-29] MEDS: Multivitamin Vitamin B Complex (Nephro-Vite) Tab PO SCH (08:43)
--- NOTE | 2018-03-29 09:36 | CP.PCM.PN ---
Subjective - Date & Time of Evaluation Date of Evaluation: 03/29/18 Time of Evaluation: 09:34 - Subjective Subjective: no significant changes Patient in bed appears to be stable no nausea no vomiting Objective - Vital Signs/Intake and Output Vital Signs (last 24 hours): Temp Pulse Resp BP Pulse Ox 97.8 F 60 20 135/80 97 03/29/18 08:33 03/29/18 08:33 03/29/18 08:33 03/29/18 08:33 03/29/18 08:33 - Medications Medications: Current Medications Acetaminophen (Tylenol 325mg Tab) 325 mg PO Q4 PRN PRN Reason: Pain, moderate (4-7) Last Admin: 03/22/18 14:19 Dose: 325 mg Albuterol/Ipratropium (Duoneb 3 Mg/0.5 Mg (3 Ml) Ud) 3 ml INH RQ6 PRN PRN Reason: Shortness of Breath Last Admin: 03/29/18 08:02 Dose: 3 ml Amlodipine Besylate (Norvasc) 10 mg PO DAILY [facility] Last Admin: 03/28/18 09:50 Dose: 10 mg Atorvastatin Calcium (Lipitor) 20 mg PO DAILY@2200 [facility] Last Admin: 03/28/18 21:11 Dose: 20 mg Calcium Carbonate (Oscal) 500 mg PO TID [facility] Last Admin: 03/29/18 08:43 Dose: 500 mg Diphenhydramine HCl (Benadryl) 50 mg PO 08 PRN PRN Reason: Itching / Pruritus Last Admin: 03/17/18 16:47 Dose: 50 mg Heparin Sodium (Porcine) (Heparin) 5,000 units SC Q12 [facility] PRN Reason: Protocol Last Admin: 03/29/18 08:44 Dose: 5,000 units Labetalol HCl (Trandate) 200 mg PO BID [facility] Last Admin: 03/28/18 16:43 Dose: 200 mg Lactic Acid (Lac-Hydrin 12% Lotion (225 G)) 1 applic TOP TID PRN PRN Reason: Itching / Pruritus Last Admin: 03/28/18 21:10 Dose: 1 applic Lidocaine (Lidoderm) 1 ea TD DAILY [facility] Last Admin: 03/29/18 08:43 Dose: Not Given Mirtazapine (Remeron) 7.5 mg PO HS [facility] Last Admin: 03/28/18 21:11 Dose: 7.5 mg Ondansetron HCl (Zofran Inj) 4 mg IVP Q4 PRN PRN Reason: Nausea/Vomiting Last Admin: 03/17/18 13:39 Dose: 4 mg Vitamin B Complex/Vit C/Folic Acid (Nephro-Valentino) 1 tab PO DAILY [facility] Last Admin: 03/29/18 08:43 Dose: 1 tab - Labs Labs: 03/25/18 11:21 03/25/18 11:21 - Constitutional Appears: No Acute Distress - Eye Exam Eye Exam: Conjunctival injection - ENT Exam ENT Exam: Mucous Membranes Moist - Neck Exam Neck Exam: absent: Lymphadenopathy - Respiratory Exam Respiratory Exam: NORMAL BREATHING PATTERN. absent: Chest Wall Tenderness - GI/Abdominal Exam GI & Abdominal Exam: Soft, Normal Bowel Sounds - Extremities Exam Extremities Exam: absent: Calf Tenderness - Back Exam Back Exam: absent: CVA tenderness (L), CVA tenderness (R) - Neurological Exam Neurological Exam: Alert - Psychiatric Exam Psychiatric exam: Normal Affect - Skin Skin Exam: absent: Cyanosis Assessment and Plan (1) Hyperkalemia Status: Acute (2) CHF (congestive heart failure) Status: Chronic (3) CKD (chronic kidney disease) stage V requiring chronic dialysis Assessment & Plan: end stage renal disease on maintenance hemodialysis twice a week Sunday and Sunday Patient admitted with volume overloaded because she is missing dialysis Hyponatremia Hypertension Anemia Noncompliance history the plan Patient scheduled for hemodialysis shortly as scheduled Repeat BMP and follow-up bone serum sodium Patient has a chronic hyponatremia usually improved post dialysis BMP post dialysis to see what happens to the serum sodium Status: Chronic
[2018-03-29] MEDS ORDERED: Albuterol-Ipratrop 3 mg / 0.5 (3 ml) UD INH PRN ×2 (14:05→19:33)
[2018-03-29] MEDS ORDERED: Nitroglycerin 2% 15 INCH/30 GM TUBE TOP STA (14:08)
[2018-03-29 14:23] LABS: ABG ALLEN TEST YES; ARTERIAL BLOOD GAS HCO3 24.9 mmol/L (21-28); ARTERIAL BLOOD GAS O2 SAT 96.9 % (95-98); ARTERIAL BLOOD GAS PCO2 56 mm/Hg (35-45); ARTERIAL BLOOD GAS PO2 78 mm/Hg (80-100); ARTERIAL BLOOD GAS TCO2 29.3 mmol/L (22-28)
--- NOTE | 2018-03-29 14:30 | PCM.RRT ---
I.Reason for ETL TESTER - A) Acute Change in Patient: Subjective: ETL TESTER Time: 1:44PM ETL TESTER Arrival Time: 1:45PM ETL TESTER Location: [facility] ETL TESTER VS on arrival: BP224/94, HR 104, RR 24 O2 Sat 97% O2 NC 4L on facemask. S: ETL TESTER called by RN after patient was found with elevated BP and SOB. The patient is a 77 y/o F, PMHx of Alzheimer/Dementia, ESRD on Hemodialysis QOD, CHF , admitted to [facility] for hyperkalemia. Upon arriving of the ETL TESTER the patient is having SOB, denies CP at this time, patient has difficulties verbalizing symptoms due to the SOB. as per bedside RN report and MR the patient was scheduled to received dialysis yesterday and she refused it. O: Patient is noted anxious and in acute distress at this time. HEENT: Normocephalic, face mask for Ox supplied applied RESP: Rales to b/l bases and scattered wheezing b/l lung christianson CV: Tachycardic rhythm Abd: Soft, nontender. Neuro: anxious. A/P 77 y/o F, PMHx of Alzheimer/Dementia, ESRD on Hemodialysis QOD, CHF, admitted to [facility] for hyperkalemia, with acute onset of SOB likely secondary to volume overload 2/2 ESRD. ETL TESTER plan and interventions -Stat Lasix, total 100 mg IV given -Nitro paste 2% 1 inch applied to chest wall -stat EKG, CXR, ABG, BMP -Nonrebreather mask applied. -Trasnferred to ICU ETL TESTER End Time: 2:20 Patient was tranferred to ICU with Monitor and BIPAP was applied at this time VS 2:20: BP 203/96 HR 103, RR 24, O2 98% on BIPAP ETL TESTER Leader: Dr Jj ETL TESTER Residents: Dr Domingo PGY3, Dr Valerio PGY2, Dr Story PGY1
--- NOTE | 2018-03-29 14:41 | RAD ---
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 FINDINGS: LUNGS: Persistent interstitial marking pattern bilaterally suggests persistent or recurrent pulmonary vascular congestion though the hilar vascular markings do not appear dramatically increased. Clinically correlate nevertheless. Underlying airspace disease question in the bilateral bases, potentially increased in the interval. PLEURA: No pneumothorax bilaterally or right pleural fluid. Minimal left pleural effusion remains in question. CARDIOVASCULAR: Cardiac size remains enlarged. Pulmonary vascular pattern questionably congested. OSSEOUS STRUCTURES: No significant abnormalities. VISUALIZED UPPER ABDOMEN: Normal. OTHER FINDINGS: None. IMPRESSION: Persistent or recurrent CHF though not as prominent as previously shown. Limited bibasilar airspace disease is questioned with small pleural effusion unchanged.
[2018-03-29 14:50] LABS: HEMOGLOBIN 10.1 g/dL (12.0-16.0); MEAN CELL VOLUME 87.6 fl (81.0-99.0); MEAN CORPUSCULAR HEMOGLOBIN 29.8 pg (27.0-31.0); RBC 3.4 Mil/uL (3.80-5.20); RED CELL DISTRIBUTION WIDTH 14.3 % (11.5-14.5); WHITE BLOOD COUNT 5.6 K/uL (4.8-10.8)
[2018-03-29 15:00] LABS: ALB/GLOB RATIO 1.8 (1.0-2.1); ALBUMIN 4.1 g/dL (3.5-5.0); CALCIUM 9.7 mg/dL (8.4-10.2)
[2018-03-29 15:10] LABS: TROPONIN I 0.023 ng/mL (0.00-0.120)
--- NOTE | 2018-03-29 15:14 | CP.CCUPN ---
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 Today, transferred to ICU after COMMUNITY SERVICES MANAGER for acute onset SOB and hypoxemia. She is awake and alert, mildly agitated, and denies any CP, no diaphoresis. Urgent HD requested and pending, Placed on BiPAP support in the interim. Advance Directives discussed with daughter and son at the bedside and deemed a full Code for now. She had refused regularly scheduled HD yesterday, refused peripheral IV line placement and todays AM meds. Prior to transport to ICU, SPO2 99% on 100% NRBM, and transitioned to BiPAP 12/5m 100% with TV averaging 435 to 700 ml. ABG showed acute resp acidosis with hypercarbia. During the COMMUNITY SERVICES MANAGER , given IVP Lasix 100mg, 2 inches Top NTP as well. Daughter reports patient fell to the floor yesterday. 236/85, 101 sinus, afebrile, RR 30, 98% SPO2 on 100% NRBM Other vitals and I/O s reviewed: afebrile, no fever spikes since admission. Allergies: NKDA Meds: at home included Xanax, Lipitor, Norvasc, Lipitor,Zestril, Trandate, Remeron, Oscal. ROS: No other pertinent negs or positives on 10+ system review obtainable due to mild agitation. PMSFH: All other Nursing and physician documentation reviewed to date; no new pertinent info noted relevant to current medical problems. EXAM- HEENT: no icterus, no gaze preference, pupils equal and reactive NECK: No JVD visible, supple, carotids equal upstroke bilat/no bruits CHEST: decreased BS bases, no wheezes audible HEART: regular, distant, Tachy S1S2, no rubs ABD: soft, no increased distention, no tympany, no focal tenderness, BS hypoactive, no rebound. EXT: warm, no edema bilaterally; no peripheral/ digital cyanosis, no calf tenderness or palpable cords, distal pulses intact and symmetrical. NEURO: no gross focal motor deficits. SKIN: no rashes, warm and dry LABS: last set from 03/25: WBC= 5.3 HGB= 9.0 PLTs= 100K Na= 129 K= 4.2 HCO3=30 CL= 92 BUN/Cr= 47/4.4 BS= 134 EKG: post COMMUNITY SERVICES MANAGER- sinus 62/min, nl axis, poor R progression anteriorly CXR: (my interp) bilat congestive changes, increased left sided interstitial changes. IMPRESSION / MAJOR PROBLEMS NOW: 1. Acute Resp Insufficiency 2 Fluid overload / Pulm Edema, r/o AMI-NSTEMI 2. Accelerated HTN 2 non-compliancy with meds and HD 3. Chronic Hyponatremia 4. r/o left Lung Pneumonitis 5. Dementia / Delirium with Psycho-motor agitation PLAN: 1. BiPAP interim support. Lasix trial given. 2. Urgent HD ordered. Serial Trops and EKGs. 3. IV NTG titrated to keep MAP 90-100 for now. 4. Resume Norvasc, add Hydralazine to Nitrates. 5. Check repeat CXR post HD. On no empiric abx coverage, check PCT level. 6. Full Code status as discussed with patients children. 7. Repeat set of bloodwork now. CCU Objective - Vital Signs / Intake & Output Vital Signs (Last 4 hours): Vital Signs Pulse Resp BP Pulse Ox 03/29/18 15:00 66 22 138/57 L 100 03/29/18 14:30 77 17 197/89 H 100 03/29/18 13:48 101 H 236/85 H
[2018-03-29] MEDS ORDERED: Lidocaine/Prilocaine CREAM 5GM TP PRN ×2 (15:53→19:33)
--- NOTE | 2018-03-29 16:25 | CP.PCM.PN ---
Subjective - Date & Time of Evaluation Date of Evaluation: 03/29/18 Time of Evaluation: 11:00 - Subjective Subjective: F/U ESRD Pt awake, smiling, no c/o, no SOB, occasional cough, daughter at bed side. Objective - Vital Signs/Intake and Output Vital Signs (last 24 hours): Temp Pulse Resp BP Pulse Ox 97.7 F 59 L 15 117/45 L 100 03/29/18 16:21 03/29/18 16:00 03/29/18 16:00 03/29/18 16:00 03/29/18 16:00 Intake and Output: 03/29/18 03/29/18 06:59 18:59 Intake Total 200 Balance 200 - Medications Medications: Current Medications Acetaminophen (Tylenol 325mg Tab) 325 mg PO Q4 PRN PRN Reason: Pain, moderate (4-7) Last Admin: 03/29/18 16:21 Dose: 325 mg Albuterol/Ipratropium (Duoneb 3 Mg/0.5 Mg (3 Ml) Ud) 3 ml INH RQ6 PRN PRN Reason: Shortness of Breath Amlodipine Besylate (Norvasc) 10 mg PO DAILY [facility] Atorvastatin Calcium (Lipitor) 20 mg PO DAILY@2200 [facility] Calcium Carbonate (Oscal) 500 mg PO TID [facility] Last Admin: 03/29/18 16:21 Dose: 500 mg Diphenhydramine HCl (Benadryl) 50 mg PO 08 PRN PRN Reason: Itching / Pruritus Heparin Sodium (Porcine) (Heparin) 5,000 units SC Q12 [facility] PRN Reason: Protocol Labetalol HCl (Trandate) 200 mg PO BID [facility] Last Admin: 03/29/18 16:14 Dose: Not Given Lactic Acid (Lac-Hydrin 12% Lotion (225 G)) 1 applic TOP TID PRN PRN Reason: Itching / Pruritus Lidocaine (Lidoderm) 1 ea TD DAILY [facility] Lidocaine/Prilocaine (Lidocaine/Prilocaine 2.5%-2.5%) 1 applic TP DAILY PRN PRN Reason: Pain, Mild (1-3) Mirtazapine (Remeron) 7.5 mg PO HS [facility] Ondansetron HCl (Zofran Inj) 4 mg IVP Q4 PRN PRN Reason: Nausea/Vomiting Vitamin B Complex/Vit C/Folic Acid (Nephro-Valentino) 1 tab PO DAILY [facility] - Labs Labs: 03/29/18 14:38 03/29/18 14:38 - Constitutional Appears: No Acute Distress - Head Exam Head Exam: NORMAL INSPECTION - Eye Exam Eye Exam: PERRL - ENT Exam ENT Exam: Normal Exam - Neck Exam Neck Exam: Normal Inspection - Respiratory Exam Respiratory Exam: Decreased Breath Sounds (at bases) - Cardiovascular Exam Cardiovascular Exam: REGULAR RHYTHM, Murmur - GI/Abdominal Exam GI & Abdominal Exam: Soft, Normal Bowel Sounds - Extremities Exam Additional comments: L arm AV shunt, + thrill and bruit. - Back Exam Back Exam: NORMAL INSPECTION - Neurological Exam Neurological Exam: Awake Additional comments: Forgetful, no focal motor/sensory deficit - Psychiatric Exam Psychiatric exam: Normal Affect - Skin Skin Exam: Warm Assessment and Plan (1) ESRD (end stage renal disease) on dialysis Status: Chronic (2) Noncompliance of patient with renal dialysis Status: Acute (3) Hypertension Status: Chronic (4) CHF (congestive heart failure) Status: Chronic (5) Dyslipidemia Status: Chronic (6) Dementia Status: Chronic - Assessment and Plan (Free Text) Plan: Occasional non productive cough, no SOB, Pt for family meeting with Nephrology, Dr. Benedict, as per family, was found a dialysis place closed to their house for continue Tx.
--- NOTE | 2018-03-29 17:32 | CP.PCM.PN ---
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 Objective - Vital Signs/Intake and Output Vital Signs (last 24 hours): Temp Pulse Resp BP Pulse Ox 97.7 F 59 L 15 117/45 L 100 03/29/18 16:21 03/29/18 16:00 03/29/18 16:00 03/29/18 16:00 03/29/18 16:00 Intake and Output: 03/29/18 03/29/18 06:59 18:59 Intake Total 200 Balance 200 - Medications Medications: Current Medications Acetaminophen (Tylenol 325mg Tab) 325 mg PO Q4 PRN PRN Reason: Pain, moderate (4-7) Last Admin: 03/29/18 16:21 Dose: 325 mg Albuterol/Ipratropium (Duoneb 3 Mg/0.5 Mg (3 Ml) Ud) 3 ml INH RQ6 PRN PRN Reason: Shortness of Breath Amlodipine Besylate (Norvasc) 10 mg PO DAILY [facility] Atorvastatin Calcium (Lipitor) 20 mg PO DAILY@2200 [facility] Calcium Carbonate (Oscal) 500 mg PO TID [facility] Last Admin: 03/29/18 16:21 Dose: 500 mg Diphenhydramine HCl (Benadryl) 50 mg PO 08 PRN PRN Reason: Itching / Pruritus Heparin Sodium (Porcine) (Heparin) 5,000 units SC Q12 [facility] PRN Reason: Protocol Labetalol HCl (Trandate) 200 mg PO BID [facility] Last Admin: 03/29/18 16:14 Dose: Not Given Lactic Acid (Lac-Hydrin 12% Lotion (225 G)) 1 applic TOP TID PRN PRN Reason: Itching / Pruritus Lidocaine (Lidoderm) 1 ea TD DAILY [facility] Lidocaine/Prilocaine (Lidocaine/Prilocaine 2.5%-2.5%) 1 applic TP DAILY PRN PRN Reason: Pain, Mild (1-3) Mirtazapine (Remeron) 7.5 mg PO HS [facility] Ondansetron HCl (Zofran Inj) 4 mg IVP Q4 PRN PRN Reason: Nausea/Vomiting Vitamin B Complex/Vit C/Folic Acid (Nephro-Valentino) 1 tab PO DAILY [facility] - Labs Labs: 03/29/18 14:38 03/29/18 14:38 - Constitutional Appears: Well - Head Exam Head Exam: ATRAUMATIC, NORMAL INSPECTION, NORMOCEPHALIC - Eye Exam Eye Exam: EOMI, Normal appearance, PERRL Pupil Exam: NORMAL ACCOMODATION, PERRL - ENT Exam ENT Exam: Mucous Membranes Moist, Normal Exam - Neck Exam Neck Exam: Full ROM, Normal Inspection. absent: Lymphadenopathy - Respiratory Exam Respiratory Exam: Clear to Ausculation Bilateral, NORMAL BREATHING PATTERN - Cardiovascular Exam Cardiovascular Exam: REGULAR RHYTHM, +S1, +S2, Murmur - GI/Abdominal Exam GI & Abdominal Exam: Soft, Normal Bowel Sounds. absent: Tenderness - Extremities Exam Extremities Exam: Full ROM, Normal Capillary Refill, Normal Inspection. absent : Joint Swelling, Pedal Edema - Back Exam Back Exam: NORMAL INSPECTION - Neurological Exam Neurological Exam: Alert, Awake, CN II-XII Intact, Oriented x3 - Psychiatric Exam Psychiatric exam: Normal Affect, Normal Mood - Skin Skin Exam: Dry, Intact, Normal Color, Warm Assessment and Plan (1) CHF (congestive heart failure) Status: Chronic (2) Hyperkalemia Status: Acute (3) Missed dialysis Status: Acute (4) Renal failure Status: Acute (5) Accelerated hypertension Status: Acute (6) Aortic stenosis Status: Acute
[2018-03-30 06:29] LABS: HEMOGLOBIN 8.9 g/dL (12.0-16.0); MEAN CELL VOLUME 88.6 fl (81.0-99.0); MEAN CORPUSCULAR HEMOGLOBIN 29.7 pg (27.0-31.0); MEAN CORPUSCULAR HGB CONC 33.5 g/dL (33.0-37.0); RED CELL DISTRIBUTION WIDTH 14.3 % (11.5-14.5); WHITE BLOOD COUNT 4.1 K/uL (4.8-10.8)
[2018-03-30 06:42] LABS: CALCIUM 9.2 mg/dL (8.4-10.2)
[2018-03-30] MEDS: Multivitamin Vitamin B Complex (Nephro-Vite) Tab PO SCH (08:08)
[2018-03-30] MEDS: Lidocaine 5% Patch TD SCH (08:11)
[2018-03-30] MEDS ORDERED: Lidocaine 5% Patch TD SCH (09:00)
[2018-03-30] MEDS ORDERED: Multivitamin Vitamin B Complex (Nephro-Vite) Tab PO SCH (09:00)
--- NOTE | 2018-03-30 10:34 | CP.CCUPN ---
CCU Subjective - Physician Review Events Since Last Encounter (Free Text): 03/30/18 10:31 awake, alert oriented, no sob, no pain, looks completely asymptomatic, reviewed , her rhythm strip, has been in RSR, electrolytes WNL, including K and NEVA is stable, will transfer to [facility], no need for tele bed. CCU Objective - Vital Signs / Intake & Output Vital Signs (Last 4 hours): Vital Signs Temp Pulse Resp BP Pulse Ox 03/30/18 10:00 78 15 120/61 03/30/18 08:08 75 124/99 H 03/30/18 07:47 97.7 F 77 18 124/99 H 97 Intake and Output (Last 8hrs): Intake & Output 03/29/18 03/30/18 03/30/18 22:59 06:59 14:59 Intake Total 395 135 230 Output Total 1999 Balance -1605 135 230 Weight 128 lb Intake: IV 10 Oral 395 125 230 Output: Ultrafiltrate 1999 Other: # Voids Urine, Voided 1 - Physical Exam Narrative Physical Exam (Free Text): 03/30/18 10:34 O/E Neck: No JVD Lungs: No ronchi, crackles abdomen: soft, Ext; no edema Heart: no gallop 03/30/18 10:36 - Medications Active Medications: Active Medications Generic Name Dose Route Start Last Admin Trade Name Freq PRN Reason Stop Dose Admin Acetaminophen 325 mg 03/29/18 19:33 Tylenol 325mg Tab PO Q4 PRN Pain, moderate (4-7) Albuterol/Ipratropium 3 ml 03/29/18 19:33 Duoneb 3 Mg/0.5 Mg (3 Ml) Ud INH RQ6 PRN Shortness of Breath Amlodipine Besylate 10 mg 03/30/18 09:00 03/30/18 08:08 Norvasc PO 10 mg DAILY [facility] Administration Atorvastatin Calcium 20 mg 03/29/18 22:00 03/29/18 21:34 Lipitor PO 20 mg DAILY@2200 [facility] Administration Calcium Carbonate 500 mg 03/30/18 09:00 03/30/18 08:07 Oscal PO 500 mg TID [facility] Administration Diphenhydramine HCl 50 mg 03/29/18 19:33 03/30/18 08:09 Benadryl PO 50 mg 08 PRN Administration Itching / Pruritus Heparin Sodium (Porcine) 5,000 units 03/29/18 21:00 03/30/18 08:53 Heparin SC Not Given Q12 [facility] Protocol Labetalol HCl 200 mg 03/30/18 09:00 03/30/18 09:24 Trandate PO 200 mg BID [facility] Administration Lactic Acid 1 applic 03/29/18 19:33 Lac-Hydrin 12% Lotion (225 G) TOP TID PRN Itching / Pruritus Lidocaine 1 ea 03/30/18 09:00 03/30/18 08:11 Lidoderm TD Not Given DAILY [facility] Lidocaine/Prilocaine 1 applic 03/29/18 19:33 Lidocaine/Prilocaine 2.5%-2.5% TP DAILY PRN Pain, Mild (1-3) Mirtazapine 7.5 mg 03/29/18 22:00 03/29/18 21:34 Remeron PO 7.5 mg HS [facility] Administration Ondansetron HCl 4 mg 03/29/18 19:33 Zofran Inj IVP Q4 PRN Nausea/Vomiting Vitamin B Complex/Vit C/Folic Acid 1 tab 03/30/18 09:00 03/30/18 08:08 Nephro-Valentino PO 1 tab DAILY [facility] Administration - Patient Studies Lab Studies: Lab Studies 03/30/18 03/30/18 03/29/18 Range/Units 05:50 05:50 14:38 WBC 4.1 L 5.6 (4.8-10.8) K/uL RBC 3.00 L 3.40 L (3.80-5.20) Mil/uL Hgb 8.9 L 10.1 L (12.0-16.0) g/dL Hct 26.6 L 29.7 L (34.0-47.0) % MCV 88.6 87.6 (81.0-99.0) fl MCH 29.7 29.8 (27.0-31.0) pg MCHC 33.5 34.0 (33.0-37.0) g/dL RDW 14.3 14.3 (11.5-14.5) % Plt Count 46 L D 158 (130-400) K/uL pCO2 (35-45) mm/Hg pO2 (80-100) mm/Hg HCO3 (21-28) mmol/L ABG pH (7.35-7.45) ABG Total CO2 (22-28) mmol/L ABG O2 Saturation (95-98) % ABG Base Excess (-2.0-3.0) mmol/L Nacho Test ABG Potassium (3.6-5.2) mmol/L A-a O2 Difference mm/Hg Sodium 133 (132-148) mmol/L Chloride 98 (98-107) mmol/L Glucose (65-105) mg/dL Lactate (0.7-2.1) mmol/L Vent Mode FiO2 % Potassium 4.4 (3.6-5.0) MMOL/L Carbon Dioxide 29 (22-30) mmol/L Anion Gap 10 (10-20) BUN 27 H (7-17) mg/dl Creatinine 2.8 H (0.7-1.2) mg/dl Est GFR ( Amer) 20 Est GFR (Non-Af Amer) 16 POC Glucose (mg/dL) (65-110) mg/dL Random Glucose 100 (65-105) mg/dL Calcium 9.2 (8.4-10.2) mg/dL Phosphorus (2.5-4.5) mg/dl Magnesium (1.6-2.3) MG/DL Total Bilirubin (0.2-1.3) mg/dl AST (14-36) U/L ALT (9-52) U/L Alkaline Phosphatase (38-126) U/L Troponin I (0.00-0.120) ng/mL Total Protein (6.3-8.2) G/DL Albumin (3.5-5.0) g/dL Globulin (2.2-3.9) gm/dL Albumin/Globulin Ratio (1.0-2.1) Arterial Blood Potassium (3.6-5.2) mmol/L 03/29/18 03/29/18 03/29/18 Range/Units 14:38 14:14 13:50 WBC (4.8-10.8) K/uL RBC (3.80-5.20) Mil/uL Hgb (12.0-16.0) g/dL Hct (34.0-47.0) % MCV (81.0-99.0) fl MCH (27.0-31.0) pg MCHC (33.0-37.0) g/dL RDW (11.5-14.5) % Plt Count (130-400) K/uL pCO2 56 H (35-45) mm/Hg pO2 78 L (80-100) mm/Hg HCO3 24.9 (21-28) mmol/L ABG pH 7.30 L (7.35-7.45) ABG Total CO2 29.3 H (22-28) mmol/L ABG O2 Saturation 96.9 (95-98) % ABG Base Excess 0.1 (-2.0-3.0) mmol/L Nacho Test Yes ABG Potassium 5.1 (3.6-5.2) mmol/L A-a O2 Difference 565.0 mm/Hg Sodium 130 L 125.0 L (132-148) mmol/L Chloride 91 L 94.0 L (98-107) mmol/L Glucose 178 H (65-105) mg/dL Lactate 0.9 (0.7-2.1) mmol/L Vent Mode Nrb FiO2 100.0 % Potassium 5.4 H (3.6-5.0) MMOL/L Carbon Dioxide 29 (22-30) mmol/L Anion Gap 15 (10-20) BUN 59 H (7-17) mg/dl Creatinine 5.2 H (0.7-1.2) mg/dl Est GFR ( Amer) 10 Est GFR (Non-Af Amer) 8 POC Glucose (mg/dL) 163 H (65-110) mg/dL Random Glucose 158 H (65-105) mg/dL Calcium 9.7 (8.4-10.2) mg/dL Phosphorus 4.4 (2.5-4.5) mg/dl Magnesium 1.9 (1.6-2.3) MG/DL Total Bilirubin 0.6 (0.2-1.3) mg/dl AST 99 H D (14-36) U/L ALT 132 H D (9-52) U/L Alkaline Phosphatase 149 H D (38-126) U/L Troponin I 0.0230 (0.00-0.120) ng/mL Total Protein 6.5 (6.3-8.2) G/DL Albumin 4.1 (3.5-5.0) g/dL Globulin 2.3 (2.2-3.9) gm/dL Albumin/Globulin Ratio 1.8 (1.0-2.1) Arterial Blood Potassium 5.1 (3.6-5.2) mmol/L Laboratory Results - last 24 hr 03/29/18 03/29/18 03/29/18 13:50 14:14 14:38 WBC RBC Hgb Hct MCV MCH MCHC RDW Plt Count pCO2 56 H pO2 78 L HCO3 24.9 ABG pH 7.30 L ABG Total CO2 29.3 H ABG O2 Saturation 96.9 ABG Base Excess 0.1 Nacho Test Yes ABG Potassium 5.1 A-a O2 Difference 565.0 Sodium 125.0 L 130 L Chloride 94.0 L 91 L Glucose 178 H Lactate 0.9 Vent Mode Nrb FiO2 100.0 Potassium 5.4 H Carbon Dioxide 29 Anion Gap 15 BUN 59 H Creatinine 5.2 H Est GFR ( Amer) 10 Est GFR (Non-Af Amer) 8 POC Glucose (mg/dL) 163 H Random Glucose 158 H Calcium 9.7 Phosphorus 4.4 Magnesium 1.9 Total Bilirubin 0.6 AST 99 H D ALT 132 H D Alkaline Phosphatase 149 H D Troponin I 0.0230 Total Protein 6.5 Albumin 4.1 Globulin 2.3 Albumin/Globulin Ratio 1.8 Arterial Blood Potassium 5.1 03/29/18 03/30/18 03/30/18 14:38 05:50 05:50 WBC 5.6 4.1 L RBC 3.40 L 3.00 L Hgb 10.1 L 8.9 L Hct 29.7 L 26.6 L MCV 87.6 88.6 MCH 29.8 29.7 MCHC 34.0 33.5 RDW 14.3 14.3 Plt Count 158 46 L D pCO2 pO2 HCO3 ABG pH ABG Total CO2 ABG O2 Saturation ABG Base Excess Nacho Test ABG Potassium A-a O2 Difference Sodium 133 Chloride 98 Glucose Lactate Vent Mode FiO2 Potassium 4.4 Carbon Dioxide 29 Anion Gap 10 BUN 27 H Creatinine 2.8 H Est GFR ( Amer) 20 Est GFR (Non-Af Amer) 16 POC Glucose (mg/dL) Random Glucose 100 Calcium 9.2 Phosphorus Magnesium Total Bilirubin AST ALT Alkaline Phosphatase Troponin I Total Protein Albumin Globulin Albumin/Globulin Ratio Arterial Blood Potassium Critical Care Progress Note - Nutrition Nutrition: Nutrition Category Date Time Status Renal Diet [DIET] Diets 03/14/18 Lunch Active Assessment/Plan - Assessment and Plan (Free Text) Assessment: IMPRESSION / MAJOR PROBLEMS NOW: 1. Acute Resp Insufficiency 2 Fluid overload / Pulm Edema: improved after a dialysis session 2- HTN: well controlled now 3 Hyperkalemia : Improved with dialysis . Dementia / Delirium with Psycho-motor agitation PLAN: Labs, CXR and rhythm reviewed, d/w Production Operations Inspector, Transferred to [facility]
--- NOTE | 2018-03-30 13:41 | CP.PCM.PN ---
Subjective - Date & Time of Evaluation Date of Evaluation: 03/30/18 Time of Evaluation: 13:39 - Subjective Subjective: S: seen and examiend no sob o: vs as below gen: nad sclera: anciteric op clear neck: supple cv: +s1+s2 lungs cta abd soft ext: no edema neuro: follows commands no asterixis psych: flat skin no rash Objective - Vital Signs/Intake and Output Vital Signs (last 24 hours): Temp Pulse Resp BP Pulse Ox 97.7 F 78 15 120/61 97 03/30/18 07:47 03/30/18 10:00 03/30/18 10:00 03/30/18 10:00 03/30/18 07:47 Intake and Output: 03/30/18 03/30/18 06:59 18:59 Intake Total 330 380 Output Total 2000 Balance -1670 380 - Medications Medications: Current Medications Acetaminophen (Tylenol 325mg Tab) 325 mg PO Q4 PRN PRN Reason: Pain, moderate (4-7) Albuterol/Ipratropium (Duoneb 3 Mg/0.5 Mg (3 Ml) Ud) 3 ml INH RQ6 PRN PRN Reason: Shortness of Breath Amlodipine Besylate (Norvasc) 10 mg PO DAILY [facility] Last Admin: 03/30/18 08:08 Dose: 10 mg Atorvastatin Calcium (Lipitor) 20 mg PO DAILY@2200 [facility] Last Admin: 03/29/18 21:34 Dose: 20 mg Calcium Carbonate (Oscal) 500 mg PO TID [facility] Last Admin: 03/30/18 12:01 Dose: 500 mg Diphenhydramine HCl (Benadryl) 50 mg PO 08 PRN PRN Reason: Itching / Pruritus Last Admin: 03/30/18 08:09 Dose: 50 mg Heparin Sodium (Porcine) (Heparin) 5,000 units SC Q12 [facility] PRN Reason: Protocol Last Admin: 03/30/18 08:53 Dose: Not Given Labetalol HCl (Trandate) 200 mg PO BID [facility] Last Admin: 03/30/18 09:24 Dose: 200 mg Lactic Acid (Lac-Hydrin 12% Lotion (225 G)) 1 applic TOP TID PRN PRN Reason: Itching / Pruritus Lidocaine (Lidoderm) 1 ea TD DAILY [facility] Last Admin: 03/30/18 08:11 Dose: Not Given Lidocaine/Prilocaine (Lidocaine/Prilocaine 2.5%-2.5%) 1 applic TP DAILY PRN PRN Reason: Pain, Mild (1-3) Mirtazapine (Remeron) 7.5 mg PO HS [facility] Last Admin: 03/29/18 21:34 Dose: 7.5 mg Ondansetron HCl (Zofran Inj) 4 mg IVP Q4 PRN PRN Reason: Nausea/Vomiting Vitamin B Complex/Vit C/Folic Acid (Nephro-Valentino) 1 tab PO DAILY [facility] Last Admin: 03/30/18 08:08 Dose: 1 tab - Labs Labs: 03/30/18 05:50 03/30/18 05:50 Assessment and Plan (1) Hyperkalemia Status: Acute (2) Missed dialysis Status: Acute (3) Renal failure Status: Acute (4) CHF (congestive heart failure) Status: Chronic (5) Dyslipidemia Status: Chronic (6) Accelerated hypertension Status: Acute - Assessment and Plan (Free Text) Plan: next HD sunday continue antihypertensive k improve
--- NOTE | 2018-03-30 15:21 | CP.PCM.PN ---
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 Pt doing well today, confused, as per nurse, going to the bathroom, no c/o Objective - Vital Signs/Intake and Output Vital Signs (last 24 hours): Temp Pulse Resp BP Pulse Ox 97.7 F 78 15 120/61 97 03/30/18 07:47 03/30/18 10:00 03/30/18 10:00 03/30/18 10:00 03/30/18 07:47 Intake and Output: 03/30/18 03/30/18 06:59 18:59 Intake Total 330 380 Output Total 2000 Balance -1670 380 - Medications Medications: Current Medications Acetaminophen (Tylenol 325mg Tab) 325 mg PO Q4 PRN PRN Reason: Pain, moderate (4-7) Albuterol/Ipratropium (Duoneb 3 Mg/0.5 Mg (3 Ml) Ud) 3 ml INH RQ6 PRN PRN Reason: Shortness of Breath Amlodipine Besylate (Norvasc) 10 mg PO DAILY [facility] Last Admin: 03/30/18 08:08 Dose: 10 mg Atorvastatin Calcium (Lipitor) 20 mg PO DAILY@2200 [facility] Last Admin: 03/29/18 21:34 Dose: 20 mg Calcium Carbonate (Oscal) 500 mg PO TID [facility] Last Admin: 03/30/18 12:01 Dose: 500 mg Diphenhydramine HCl (Benadryl) 50 mg PO 08 PRN PRN Reason: Itching / Pruritus Last Admin: 03/30/18 08:09 Dose: 50 mg Heparin Sodium (Porcine) (Heparin) 5,000 units SC Q12 [facility] PRN Reason: Protocol Last Admin: 03/30/18 08:53 Dose: Not Given Labetalol HCl (Trandate) 200 mg PO BID [facility] Last Admin: 03/30/18 09:24 Dose: 200 mg Lactic Acid (Lac-Hydrin 12% Lotion (225 G)) 1 applic TOP TID PRN PRN Reason: Itching / Pruritus Lidocaine (Lidoderm) 1 ea TD DAILY [facility] Last Admin: 03/30/18 08:11 Dose: Not Given Lidocaine/Prilocaine (Lidocaine/Prilocaine 2.5%-2.5%) 1 applic TP DAILY PRN PRN Reason: Pain, Mild (1-3) Mirtazapine (Remeron) 7.5 mg PO HS [facility] Last Admin: 03/29/18 21:34 Dose: 7.5 mg Ondansetron HCl (Zofran Inj) 4 mg IVP Q4 PRN PRN Reason: Nausea/Vomiting Vitamin B Complex/Vit C/Folic Acid (Nephro-Valentino) 1 tab PO DAILY [facility] Last Admin: 03/30/18 08:08 Dose: 1 tab - Labs Labs: 03/30/18 05:50 03/30/18 05:50 Assessment and Plan (1) Respiratory failure Status: Acute (2) CHF (congestive heart failure) Status: Acute (3) ESRD (end stage renal disease) on dialysis Status: Chronic (4) Noncompliance of patient with renal dialysis Status: Acute (5) Hypertension Status: Chronic (6) Hyperkalemia Status: Acute (7) Dementia Status: Chronic (8) Dyslipidemia Status: Chronic - Assessment and Plan (Free Text) Plan: Pt had HD yesterday, continue Norvasc, Heparin, Lipitor, Trandarte and est of Tx. Pt improved to be transferred to Med-Surg floor. Intensive care unit: 40 minutes.
--- NOTE | 2018-03-30 17:40 | CARD ---
APPROVED REPORT Date of service: 03/29/2018 <Conclusion> Normal sinus rhythm Possible Left atrial enlargement Nonspecific T wave abnormality Abnormal ECG
[2018-03-31] MEDS: Multivitamin Vitamin B Complex (Nephro-Vite) Tab PO SCH (08:27)
[2018-03-31] MEDS: Lidocaine 5% Patch TD SCH (08:28)
[2018-03-31] MEDS ORDERED: Influenza Vaccine 18yr & older 0.5 ML/45 MCG SYR (Inactive don't use) IM ONE (09:00)
--- NOTE | 2018-03-31 15:42 | CP.PCM.PN ---
Subjective - Date & Time of Evaluation Date of Evaluation: 03/31/18 Time of Evaluation: 13:00 - Subjective Subjective: F/U Respiratory failure. Pt transferred to Med-Surg from ICU, no A/D, alert, confused at times. Objective - Vital Signs/Intake and Output Vital Signs (last 24 hours): Temp Pulse Resp BP Pulse Ox 98.7 F 70 18 162/66 H 95 03/31/18 07:49 03/31/18 07:49 03/31/18 07:49 03/31/18 08:27 03/31/18 07:49 Intake and Output: 03/31/18 03/31/18 06:59 18:59 Intake Total 10 Balance 10 - Medications Medications: Current Medications Acetaminophen (Tylenol 325mg Tab) 325 mg PO Q4 PRN PRN Reason: Pain, moderate (4-7) Albuterol/Ipratropium (Duoneb 3 Mg/0.5 Mg (3 Ml) Ud) 3 ml INH RQ6 PRN PRN Reason: Shortness of Breath Amlodipine Besylate (Norvasc) 10 mg PO DAILY [facility] Last Admin: 03/31/18 08:27 Dose: 10 mg Atorvastatin Calcium (Lipitor) 20 mg PO DAILY@2200 [facility] Last Admin: 03/30/18 22:00 Dose: 20 mg Calcium Carbonate (Oscal) 500 mg PO TID [facility] Last Admin: 03/31/18 12:38 Dose: 500 mg Diphenhydramine HCl (Benadryl) 50 mg PO 08 PRN PRN Reason: Itching / Pruritus Last Admin: 03/30/18 20:57 Dose: 50 mg Heparin Sodium (Porcine) (Heparin) 5,000 units SC Q12 [facility] PRN Reason: Protocol Last Admin: 03/31/18 08:26 Dose: 5,000 units Labetalol HCl (Trandate) 200 mg PO BID [facility] Last Admin: 03/31/18 08:28 Dose: 200 mg Lactic Acid (Lac-Hydrin 12% Lotion (225 G)) 1 applic TOP TID PRN PRN Reason: Itching / Pruritus Lidocaine (Lidoderm) 1 ea TD DAILY [facility] Last Admin: 03/31/18 08:28 Dose: 1 ea Lidocaine/Prilocaine (Lidocaine/Prilocaine 2.5%-2.5%) 1 applic TP DAILY PRN PRN Reason: Pain, Mild (1-3) Mirtazapine (Remeron) 7.5 mg PO HS [facility] Last Admin: 03/30/18 22:00 Dose: 7.5 mg Ondansetron HCl (Zofran Inj) 4 mg IVP Q4 PRN PRN Reason: Nausea/Vomiting Vitamin B Complex/Vit C/Folic Acid (Nephro-Valentino) 1 tab PO DAILY [facility] Last Admin: 03/31/18 08:27 Dose: 1 tab - Labs Labs: 03/30/18 05:50 03/30/18 05:50 - Constitutional Appears: No Acute Distress - Head Exam Head Exam: NORMAL INSPECTION - Eye Exam Eye Exam: PERRL - ENT Exam ENT Exam: Normal Exam - Neck Exam Neck Exam: Normal Inspection - Respiratory Exam Respiratory Exam: Decreased Breath Sounds (at bases) - Cardiovascular Exam Cardiovascular Exam: REGULAR RHYTHM, Murmur - GI/Abdominal Exam GI & Abdominal Exam: Soft, Normal Bowel Sounds - Extremities Exam Additional comments: L arm AV shunt, + thrill and bruit. - Back Exam Back Exam: NORMAL INSPECTION - Neurological Exam Neurological Exam: Awake Additional comments: Forgetful, no focal motor/sensory deficit. - Psychiatric Exam Psychiatric exam: Normal Affect - Skin Skin Exam: Warm Assessment and Plan (1) ESRD (end stage renal disease) on dialysis Status: Chronic (2) Noncompliance of patient with renal dialysis Status: Acute (3) Hypertension Status: Chronic (4) CHF (congestive heart failure) Status: Acute (5) Dyslipidemia Status: Chronic (6) Dementia Status: Chronic - Assessment and Plan (Free Text) Plan: Continue Heparin, Lipitor and rest of Tx, for HD tomorrow.
[2018-04-01 01:09] VITALS: TEMP 97.9
[2018-04-01 09:37] VITALS: RESP 18; O2SAT 93
[2018-04-01] MEDS: Lidocaine 5% Patch TD SCH (09:58)
[2018-04-01] MEDS: Multivitamin Vitamin B Complex (Nephro-Vite) Tab PO SCH (09:58)
--- NOTE | 2018-04-01 10:09 | CP.PCM.PN ---
Subjective - Date & Time of Evaluation Date of Evaluation: 04/01/18 Time of Evaluation: 10:07 - Subjective Subjective: dialysis note she was seen on hemodialysis now Vital signs stable Sodium bath 138 Potassium bath 3 mEq Patient is leaving home today and she is scheduled as outpatient twice a week Sunday and Objective - Vital Signs/Intake and Output Vital Signs (last 24 hours): Temp Pulse Resp BP Pulse Ox 97.9 F 68 18 159/65 H 93 L 04/01/18 09:00 04/01/18 09:00 04/01/18 09:00 04/01/18 09:00 04/01/18 09:00 Intake and Output: 04/01/18 04/01/18 06:59 18:59 Intake Total 30 Balance 30 - Medications Medications: Current Medications Acetaminophen (Tylenol 325mg Tab) 325 mg PO Q4 PRN PRN Reason: Pain, moderate (4-7) Albuterol/Ipratropium (Duoneb 3 Mg/0.5 Mg (3 Ml) Ud) 3 ml INH RQ6 PRN PRN Reason: Shortness of Breath Amlodipine Besylate (Norvasc) 10 mg PO DAILY [facility] Last Admin: 04/01/18 09:58 Dose: Not Given Atorvastatin Calcium (Lipitor) 20 mg PO DAILY@2200 [facility] Last Admin: 03/31/18 21:13 Dose: 20 mg Calcium Carbonate (Oscal) 500 mg PO TID [facility] Last Admin: 04/01/18 09:59 Dose: 500 mg Diphenhydramine HCl (Benadryl) 50 mg PO 08 PRN PRN Reason: Itching / Pruritus Last Admin: 03/30/18 20:57 Dose: 50 mg Heparin Sodium (Porcine) (Heparin) 5,000 units SC Q12 [facility] PRN Reason: Protocol Last Admin: 04/01/18 09:57 Dose: 5,000 units Labetalol HCl (Trandate) 200 mg PO BID [facility] Last Admin: 04/01/18 09:58 Dose: Not Given Lactic Acid (Lac-Hydrin 12% Lotion (225 G)) 1 applic TOP TID PRN PRN Reason: Itching / Pruritus Lidocaine (Lidoderm) 1 ea TD DAILY [facility] Last Admin: 04/01/18 09:58 Dose: Not Given Lidocaine/Prilocaine (Lidocaine/Prilocaine 2.5%-2.5%) 1 applic TP DAILY PRN PRN Reason: Pain, Mild (1-3) Mirtazapine (Remeron) 7.5 mg PO HS [facility] Last Admin: 03/31/18 21:12 Dose: 7.5 mg Ondansetron HCl (Zofran Inj) 4 mg IVP Q4 PRN PRN Reason: Nausea/Vomiting Vitamin B Complex/Vit C/Folic Acid (Nephro-Valentino) 1 tab PO DAILY [facility] Last Admin: 04/01/18 09:58 Dose: 1 tab - Labs Labs: 03/30/18 05:50 03/30/18 05:50 - Constitutional Appears: No Acute Distress - Eye Exam Eye Exam: Conjunctival injection - ENT Exam ENT Exam: Mucous Membranes Moist - Neck Exam Neck Exam: absent: Lymphadenopathy - Cardiovascular Exam Cardiovascular Exam: absent: Gallop, JVD, Rubs - GI/Abdominal Exam GI & Abdominal Exam: Soft, Normal Bowel Sounds - Extremities Exam Extremities Exam: absent: Calf Tenderness - Back Exam Back Exam: absent: CVA tenderness (L), CVA tenderness (R) - Neurological Exam Neurological Exam: Alert - Psychiatric Exam Psychiatric exam: Normal Affect - Skin Skin Exam: absent: Cyanosis Assessment and Plan (1) Hyperkalemia Status: Acute (2) CHF (congestive heart failure) Status: Acute (3) CKD (chronic kidney disease) stage V requiring chronic dialysis Assessment & Plan: end stage renal disease on maintenance hemodialysis twice a week Sunday and Sunday Patient admitted with volume overloaded because she is missing dialysis Hyponatremia Hypertension Anemia Noncompliance history the plan he was seen on hemodialysis now patient leaving home today post hemodialysis and going to her daughter . Ultrafiltration about 2000 mL as tolerated Serum sodium improving the last serum sodium 133 and next bed to improved post hemodialysis today. continue EPO Status: Chronic
[2018-04-01] MEDS ORDERED: Epoetin Alfa 4000 UNIT/ML Inj IV ONE (10:30)
[2018-04-01 13:20] VITALS: BP 164/61; PULSE 72
--- NOTE | 2018-04-01 20:24 | CP.PCM.DIS ---
Provider - Provider Date of Admission: 03/14/18 12:31 Attending physician: Cedric Dooley MD Diagnosis - Discharge Diagnosis (1) ESRD (end stage renal disease) on dialysis Status: Chronic Priority: High (2) Noncompliance of patient with renal dialysis Status: Acute Priority: High (3) Hypertension Status: Chronic Priority: High (4) CHF (congestive heart failure) Status: Acute Priority: Medium (5) Dyslipidemia Status: Chronic (6) Dementia Status: Chronic Priority: Medium Hospital Course - Lab Results Lab Results: Micro Results 03/29/18 23:48 Naris MRSA Culture (Admit) - Final MRSA NOT DETECTED Most Recent Lab Values WBC 4.1 K/uL (4.8-10.8) L 03/30/18 05:50 RBC 3.00 Mil/uL (3.80-5.20) L 03/30/18 05:50 Hgb 8.9 g/dL (12.0-16.0) L 03/30/18 05:50 Hct 26.6 % (34.0-47.0) L 03/30/18 05:50 MCV 88.6 fl (81.0-99.0) 03/30/18 05:50 MCH 29.7 pg (27.0-31.0) 03/30/18 05:50 MCHC 33.5 g/dL (33.0-37.0) 03/30/18 05:50 RDW 14.3 % (11.5-14.5) 03/30/18 05:50 Plt Count 46 K/uL (130-400) L D 03/30/18 05:50 MPV 10.5 fl (7.2-11.7) 03/14/18 10:43 Neut % (Auto) 53.8 % (50.0-75.0) 03/14/18 10:43 Lymph % (Auto) 23.4 % (20.0-40.0) 03/14/18 10:43 Craig % (Auto) 12.5 % (0.0-10.0) H 03/14/18 10:43 Eos % (Auto) 8.5 % (0.0-4.0) H 03/14/18 10:43 Baso % (Auto) 1.8 % (0.0-2.0) 03/14/18 10:43 Neut # (Auto) 2.3 K/uL (1.8-7.0) 03/14/18 10:43 Lymph # (Auto) 1.0 K/uL (1.0-4.3) 03/14/18 10:43 Craig # (Auto) 0.5 K/uL (0.0-0.8) 03/14/18 10:43 Eos # (Auto) 0.4 K/uL (0.0-0.7) 03/14/18 10:43 Baso # (Auto) 0.1 K/uL (0.0-0.2) 03/14/18 10:43 pCO2 56 mm/Hg (35-45) H 03/29/18 14:14 pO2 78 mm/Hg (80-100) L 03/29/18 14:14 HCO3 24.9 mmol/L (21-28) 03/29/18 14:14 ABG pH 7.30 (7.35-7.45) L 03/29/18 14:14 ABG Total CO2 29.3 mmol/L (22-28) H 03/29/18 14:14 ABG O2 Saturation 96.9 % (95-98) 03/29/18 14:14 ABG Base Excess 0.1 mmol/L (-2.0-3.0) 03/29/18 14:14 Nacho Test Yes 03/29/18 14:14 ABG Potassium 5.1 mmol/L (3.6-5.2) 03/29/18 14:14 A-a O2 Difference 565.0 mm/Hg 03/29/18 14:14 Sodium 125.0 mmol/L (132-148) L 03/29/18 14:14 Chloride 94.0 mmol/L (98-107) L 03/29/18 14:14 Glucose 178 mg/dL (65-105) H 03/29/18 14:14 Lactate 0.9 mmol/L (0.7-2.1) 03/29/18 14:14 Vent Mode Nrb 03/29/18 14:14 FiO2 100.0 % 03/29/18 14:14 Sodium 133 mmol/l (132-148) 03/30/18 05:50 Potassium 4.4 MMOL/L (3.6-5.0) 03/30/18 05:50 Chloride 98 mmol/L (98-107) 03/30/18 05:50 Carbon Dioxide 29 mmol/L (22-30) 03/30/18 05:50 Anion Gap 10 (10-20) 03/30/18 05:50 BUN 27 mg/dl (7-17) H 03/30/18 05:50 Creatinine 2.8 mg/dl (0.7-1.2) H 03/30/18 05:50 Est GFR ( Amer) 20 03/30/18 05:50 Est GFR (Non-Af Amer) 16 03/30/18 05:50 POC Glucose (mg/dL) 163 mg/dL (65-110) H 03/29/18 13:50 Random Glucose 100 mg/dL (65-105) 03/30/18 05:50 Calcium 9.2 mg/dL (8.4-10.2) 03/30/18 05:50 Phosphorus 4.4 mg/dl (2.5-4.5) 03/29/18 14:38 Magnesium 1.9 MG/DL (1.6-2.3) 03/29/18 14:38 Total Bilirubin 0.6 mg/dl (0.2-1.3) 03/29/18 14:38 AST 99 U/L (14-36) H D 03/29/18 14:38 ALT 132 U/L (9-52) H D 03/29/18 14:38 Alkaline Phosphatase 149 U/L (38-126) H D 03/29/18 14:38 Troponin I 0.0230 ng/mL (0.00-0.120) 03/29/18 14:38 NT-Pro-B Natriuret Pep 47249 pg/ml (0-900) H 03/28/18 08:54 Total Protein 6.5 G/DL (6.3-8.2) 03/29/18 14:38 Albumin 4.1 g/dL (3.5-5.0) 03/29/18 14:38 Globulin 2.3 gm/dL (2.2-3.9) 03/29/18 14:38 Albumin/Globulin Ratio 1.8 (1.0-2.1) 03/29/18 14:38 Arterial Blood Potassium 5.1 mmol/L (3.6-5.2) 03/29/18 14:14 Hepatitis A IgM Ab Negative (NEGATIVE) 03/22/18 11:18 Hep Bs Antigen Negative (NEGATIVE) 03/22/18 11:18 Hep B Core IgM Ab Negative (NEGATIVE) 03/22/18 11:18 Hepatitis C Antibody Negative (NEGATIVE) 03/22/18 11:18 Discharge Exam - Head Exam Head Exam: NORMAL INSPECTION Discharge Plan - Follow Up Plan Condition: FAIR Disposition: HOME/ ROUTINE Instructions: Hyperkalemia (DC), Chronic Kidney Disease (DC) Additional Instructions: hemodialysis sunday and at [facility] dialysis [facility] follow up with your primary MD 1 week Referrals: Anthony Agarwal MD [Staff Provider] - Fredis Benedict MD [Staff Provider] - Juan Carlos Del Rio MD [Staff Provider] -
== END 2018-04-01 15:18 | disposition home or self-care (01) | DRG 640 ==
LOC: H.ER 09:57 → H.ERHOLD 12:31 → H.TEL 15:07 → H.MEDSURG1 03-23 18:20 → H.ICU/CCU 03-29 14:31 → H.MEDSURG1 03-30 20:17
PROVIDERS: ADMIT Internal Medicine Pulmonary Disease; ATTEND Internal Medicine Pulmonary Disease
PROC: 5A1D70Z Performance of Urinary Filtration, Intermittent, Less than 6 Hours Per Day (ICD-10-PCS; 2018-03-22)
PROC: 3E0F7GC Introduction of Other Therapeutic Substance into Respiratory Tract, Via Natural or Artificial Opening (ICD-10-PCS; 2018-03-27)
PROC: 5A09457 Assistance with Respiratory Ventilation, 24-96 Consecutive Hours, Continuous Positive Airway Pressure (ICD-10-PCS; 2018-03-29)
PROC: 5A1D70Z Performance of Urinary Filtration, Intermittent, Less than 6 Hours Per Day (ICD-10-PCS; 2018-03-29)
PROC: 3E0234Z Introduction of Serum, Toxoid and Vaccine into Muscle, Percutaneous Approach (ICD-10-PCS; principal; 2018-03-31)
PROC: 5A1D70Z Performance of Urinary Filtration, Intermittent, Less than 6 Hours Per Day (ICD-10-PCS; 2018-04-01)
DX: E87.5 Hyperkalemia (principal); J96.01 Acute respiratory failure with hypoxia; N18.6 End stage renal disease; I50.33 Acute on chronic diastolic (congestive) heart failure; I13.2 Hypertensive heart and chronic kidney disease with heart failure and with stage 5 chronic kidney disease, or end stage renal disease; N25.81 Secondary hyperparathyroidism of renal origin; F02.80 Dementia in other diseases classified elsewhere, unspecified severity, without behavioral disturbance, psychotic disturbance, mood disturbance, and anxiety; G30.9 Alzheimer's disease, unspecified; I35.0 Nonrheumatic aortic (valve) stenosis; I44.0 Atrioventricular block, first degree; E83.39 Other disorders of phosphorus metabolism; Z87.01 Personal history of pneumonia (recurrent); Z90.49 Acquired absence of other specified parts of digestive tract; Z91.15 Patient's noncompliance with renal dialysis; Z91.19 Patient's noncompliance with other medical treatment and regimen; Z99.2 Dependence on renal dialysis; F41.9 Anxiety disorder, unspecified; K59.00 Constipation, unspecified; Z79.899 Other long term (current) drug therapy; R79.89 Other specified abnormal findings of blood chemistry; D63.1 Anemia in chronic kidney disease; E78.00 Pure hypercholesterolemia, unspecified; E78.5 Hyperlipidemia, unspecified; E87.1 Hypo-osmolality and hyponatremia; E87.2 Acidosis; Z23 Encounter for immunization

== ENCOUNTER 2018-04-17 09:08 | Inpatient (IN) | payer MEDICARE ==
[2018-04-17 09:08] VITALS: BMI 25.7
[2018-04-17] MEDS ORDERED: Albuterol-Ipratrop 3 mg / 0.5 (3 ml) UD INH STA (09:27)
[2018-04-17] MEDS ORDERED: Albuterol-Ipratrop 3 mg / 0.5 (3 ml) UD IH STA (09:27)
--- NOTE | 2018-04-17 09:35 | ED PDOC ---
HPI: SOB/CHF/COPD Time Seen by Provider: 04/17/18 09:26 Chief Complaint (Nursing): Shortness Of Breath Chief Complaint (Provider): Shortness Of Breath History Per: Patient, Family History/Exam Limitations: no limitations Onset/Duration Of Symptoms: Days () Additional Complaint(s): Patient is a 77 y/o female with history of ESRD, CHF, HTN, and pneumonia who presents to the ED for cough and shortness of breath that has been gradually worsening. Per family patient has dialysis treatments x2 a week on Sunday and and patient missed her last treatment on Sunday (04/15/18.) Her last dialysis was last week (04/11/18.) Patient recently left [place] after being admitted for shortness of breath after missing dialysis treatment. Denies chest pain, headaches, dizziness, leg pain, nausea, and vomiting. PMD: Dr. Dumont in [place] Past Medical History Reviewed: Historical Data, Nursing Documentation, Vital Signs Vital Signs: Last Vital Signs Temp 97 F L 04/17/18 09:26 Pulse 90 04/17/18 09:26 Resp 22 04/17/18 09:26 BP 167/92 H 04/17/18 09:26 Pulse Ox 92 L 04/17/18 09:26 - Medical History PMH: Alzheimer's Disease, Anemia, Anxiety, CHF, Dementia, HTN, Hypercholesterolemia, Pneumonia, End Stage Renal Disease, Chronic Kidney Disease Denies: HIV, Kidney Stones, Schizophrenia - Surgical History Surgical History: Appendectomy, Tonsillectomy - Family History Family History: States: Unknown Family Hx, Hypertension - Living Arrangements Living Arrangements: With Family - Immunization History Hx Tetanus Toxoid Vaccination: No Hx Influenza Vaccination: No Hx Pneumococcal Vaccination: No - Home Medications Home Medications: Ambulatory Orders Medication Instructions Recorded Atorvastatin [Lipitor] 20 mg PO DAILY 08/16/16 Labetalol [Trandate] 100 mg PO BID 08/16/16 amLODIPine [Norvasc] 5 mg PO DAILY 08/16/16 Calcium Carbonate [Oscal] 500 mg PO TID 10/16/17 Lisinopril [Zestril] 5 mg PO DAILY 01/24/18 Mirtazapine [Remeron] 7.5 mg PO HS tab 02/22/18 Vitamin B Complex/Vit C/Folic 1 tab PO DAILY tab 04/01/18 [Nephro-Valentino] - Allergies Allergies/Adverse Reactions: Allergies Allergy/AdvReac Type Severity Reaction Status Date / Time No Known Allergies Allergy Verified 04/17/18 09:25 Review of Systems ROS Statement: Except As Marked, All Systems Reviewed And Found Negative Cardiovascular: Negative for: Chest Pain Respiratory: Positive for: Cough, Shortness of Breath Gastrointestinal: Negative for: Nausea, Vomiting Musculoskeletal: Negative for: Leg Pain Neurological: Negative for: Headache, Dizziness Physical Exam - Reviewed Nursing Documentation Reviewed: Yes Vital Signs Reviewed: Yes - Physical Exam Appears: Positive for: Uncomfortable Head Exam: Positive for: ATRAUMATIC, NORMOCEPHALIC Skin: Positive for: Normal Color, Warm Eye Exam: Positive for: EOMI, Normal appearance, PERRL ENT: Positive for: Nasal Congestion Neck: Positive for: Normal, Painless ROM, Supple Cardiovascular/Chest: Positive for: Regular Rate, Rhythm. Negative for: Murmur Respiratory: Positive for: Decreased Breath Sounds (Moderate decreased breath sounds bilaterally and coarse). Negative for: Normal Breath Sounds (mildly coarse), Accessory Muscle Use Gastrointestinal/Abdominal: Positive for: Normal Exam, Soft. Negative for: Tenderness Back: Positive for: Normal Inspection. Negative for: L CVA Tenderness, R CVA Tenderness Extremity: Positive for: Normal ROM. Negative for: Tenderness, Pedal Edema (pitting edema), Deformity Neurologic/Psych: Positive for: Alert, Oriented. Negative for: Motor/Sensory Deficits - Laboratory Results Result Diagrams: 04/17/18 10:06 04/17/18 10:06 Interpretation Of Abn Labs: elevated probnp, 5.5 k, bun/cr elevation - ECG ECG: Positive for: Interpreted By Me, Viewed By Me ECG Rhythm: Positive for: Nonspecific Changes (same as old) O2 Sat by Pulse Oximetry: 92 (RA) Pulse Ox Interpretation: Abnormal - Radiology X-Ray: Read By Radiologist X-Ray Interpretation: Other (pulm edema) - Progress ED Course And Treament: 1115: Noncompliant with dialysis. Multiple ER visits for the same. Pt. in increased respiratory distress. Pulsox dropping to 60%. Pt. and son made aware verbally need for intubation and management for which they agreed. 1130: Spoke with Dr. Niño who will admit. 1145: Spoke with Dr. Benedict who will give orders for dialysis. Stable on ventilator. Ntg drip started to help with chf and bp. - Critical Care Total Time (In Min): 60 Documented Critical Care: Time excludes all time spent performint seperately billable procedures Medical Decision Making Medical Decision Making: Time: 09:26 Initial Impression: Cough and shortness of breath Initial Plan: --ABG --EKG --BNP --CMP --Magnesium --Phosphorous --Troponin --CBC w/ diff --PTT --Prothrombin tme --CXR --Albuterol 3 ml INH --Solu medrol 125 mg IVP --Blood culture --Influenza A B Time: : Patient O2 sat improved with oxygen nasally Scribe Attestation: Documented by Zeke Nelson acting as a scribe for Sam Guerrero MD Provider Scribe Attestation: All medical record entries made by the Scribe were at my direction and personally dictated by me. I have reviewed the chart and agree that the record accurately reflects my personal performance of the history, physical exam, medical decision making, and the department course for this patient. I have also personally directed, reviewed, and agree with the discharge instructions and disposition. Disposition - Clinical Impression Clinical Impression: Acute on chronic renal failure, CHF exacerbation, Hyperkalemia - Patient ED Disposition Is Patient to be Admitted: Yes Counseled Patient/Family Regarding: Studies Performed, Diagnosis - Disposition Disposition Time: 11:54 Condition: CRITICAL - Pt Status Changed To: Hospital Disposition Of: Inpatient - Admit Certification Admit to Inpatient:: After my assessment, the patient will require hospitalization for at least two midnights. This is because of the severity of symptoms shown, intensity of services needed, and/or the medical risk in this patient being treated as an outpatient. - POA Present On Arrival: None Procedure: Intubation - Time Performed Time Performed: 11:15 - Time Out Time Out: Patient ID confirmed - Procedure Intubation: Glidescope - Consent Obtained Consent obtained: Verbal - Performed By Performed by: Attending Physician - Indications Indication(s):: Respiratory failure, Hypoxia - Method Method:: Oral-Laryngoscopy - Rapid Sequence Intubation Anesthetic:: Etomidate - Tube type Tube type:: Endotracheal tube Tube size:: Cuffed (7.5) Number of attempts:: 1 Depth measured at lip: cm: 22 - Confirmation Confirmation: Direct visual.of intubate, End-tidal CO2 positive, Bilat. breath sounds - Post-intubation CXR Tube adjustment:: Requires adjustment (3 cm pull back) - Post-intubation O2 sat % Post-intubation O2 sat%:: 96
[2018-04-17] MEDS ORDERED: Albuterol-Ipratrop 3 mg / 0.5 (3 ml) UD ONE (10:05)
[2018-04-17 10:20] LABS: ABG ALLEN TEST YES; ARTERIAL BLOOD GAS HCO3 24.2 mmol/L (21-28); ARTERIAL BLOOD GAS O2 SAT 97.8 % (95-98); ARTERIAL BLOOD GAS PCO2 36 mm/Hg (35-45); ARTERIAL BLOOD GAS PH 7.42 (7.35-7.45); ARTERIAL BLOOD GAS PO2 65 mm/Hg (80-100); ARTERIAL BLOOD GAS TCO2 24.5 mmol/L (22-28)
--- NOTE | 2018-04-17 10:21 | RAD ---
Date of service: 04/17/2018 HISTORY: Sepsis Patient COMPARISON: 03/29/2018 FINDINGS: LUNGS: There is asymmetrical coalescing airspace opacities throughout the right hemithorax-these have progressed since the prior exam. Infiltrates with or without causing areas of pulmonary edema asymmetric are some considerations. PLEURA: No significant pleural effusion identified, no pneumothorax apparent. CARDIOVASCULAR: Cardiomegaly-similar.. Pulmonary venous congestion likely asymmetrically prominent on the right side. OSSEOUS STRUCTURES: Thoracic spondylosis. No lytic lesions or fractures appreciated VISUALIZED UPPER ABDOMEN: Normal. OTHER FINDINGS: None. IMPRESSION: Interval progressive and diffuse airspace opacities throughout the right hemithorax. Worsening coalescent infiltrates and/or worsening asymmetrical areas of pulmonary edema are considerations. Cardiomegaly and pulmonary venous congestion
[2018-04-17 10:26] LABS: BASO # 0.1 K/uL (0.0-0.2); BASO % 1.1 % (0.0-2.0); EOS # 0.3 K/uL (0.0-0.7); EOS % 4.4 % (0.0-4.0); HEMOGLOBIN 10.8 g/dL (12.0-16.0); LYMPH # 0.8 K/uL (1.0-4.3); LYMPH % 11.8 % (20.0-40.0); MEAN CELL VOLUME 89.4 fl (81.0-99.0); MEAN CORPUSCULAR HEMOGLOBIN 29.9 pg (27.0-31.0); MEAN CORPUSCULAR HGB CONC 33.4 g/dL (33.0-37.0); MEAN PLATELET VOLUME 11.1 fl (7.2-11.7); MONO # 0.8 K/uL (0.0-0.8); MONO % 10.9 % (0.0-10.0); NEUT % 71.8 % (50.0-75.0); NRBC % 0.1 % (0.0-0.0); RBC 3.61 Mil/uL (3.80-5.20); RED CELL DISTRIBUTION WIDTH 14.9 % (11.5-14.5); WHITE BLOOD COUNT 6.9 K/uL (4.8-10.8)
[2018-04-17 10:27] LABS: INR 0.9
[2018-04-17 10:37] LABS: PARTIAL THROMBOPLASTIN TIME 31.3 Seconds (25.6-37.1); PROTHROMBIN TIME 9.9 Seconds (9.8-13.1)
[2018-04-17 10:43] LABS: ALB/GLOB RATIO 1.5 (1.0-2.1); ALBUMIN 4.3 g/dL (3.5-5.0); CALCIUM 10.2 mg/dL (8.4-10.2)
[2018-04-17 10:46] LABS: TROPONIN I 0.023 ng/mL (0.00-0.120)
[2018-04-17] MEDS ORDERED: Etomidate 20 mg/10ml Inj IV ONE (10:59)
[2018-04-17] MEDS ORDERED: Succinylcholine 200 mg/10 ml Inj IV ONE (11:00)
[2018-04-17] MEDS ORDERED: Rocuronium 10 mg/ml (5 ml) ONE (11:02)
[2018-04-17] MEDS ORDERED: Nitroglycerin 50mg in D5W 50 MG/250 ML BOTTLE IV ONE ×3 (11:05→12:15)
[2018-04-17] MEDS ORDERED: PROPOFOL ONE (11:05)
[2018-04-17] MEDS ORDERED: Insulin Regular 100 units/ml IV STA (11:08)
[2018-04-17] MEDS: Propofol 10 mg/ml 1,000 MG/100 ML VIAL IV SCH ×3 (11:09→22:28)
[2018-04-17] MEDS ORDERED: Dextrose 50% SYRINGE Inj (50 ml) IVP STA (11:09)
[2018-04-17] MEDS ORDERED: Propofol 10 mg/ml Inj (20 ML) ONE (11:21)
--- NOTE | 2018-04-17 11:24 | RAD ---
Date of service: 04/17/2018 HISTORY: POST INTUBATION COMPARISON: 04/17/2018 at 926 hr FINDINGS: LUNGS: The prior asymmetrical coalescing airspace opacities throughout the right hemithorax further increased density especially at the right lung base. Endotracheal tube tip a few mm from the efrain. Recommend retraction 2 to 3 cm. PLEURA: No significant pleural effusion identified, no pneumothorax apparent. CARDIOVASCULAR: Cardiomegaly and increased pulmonary venous congestion. A pulmonary venous congestion has increased since the left exam OSSEOUS STRUCTURES: Thoracic spondylosis. VISUALIZED UPPER ABDOMEN: Normal. OTHER FINDINGS: None. IMPRESSION: Interval worsening pulmonary venous congestion. Interval worsening coalescent airspace opacity especially at the right lung base worsening infiltrates with or without worsening prominent coalescing pulmonary edema here Low lying endotracheal tube tip recommend retraction 2 to 3 cm. Prior to this dictation this findings were directly discussed with Jovon Dejesus in the ER
[2018-04-17] MEDS ORDERED: Propofol 10 mg/ml Inj (20 ML) IV STA (11:30)
[2018-04-17] MEDS ORDERED: Insulin Regular 100 units/ml ONE (11:50)
[2018-04-17] MEDS ORDERED: Dextrose 50% SYRINGE Inj (50 ml) ONE (11:51)
[2018-04-17 12:23] LABS: ABG ALLEN TEST YES; ARTERIAL BLOOD GAS HCO3 20.9 mmol/L (21-28); ARTERIAL BLOOD GAS O2 SAT 98.4 % (95-98); ARTERIAL BLOOD GAS PCO2 51 mm/Hg (35-45); ARTERIAL BLOOD GAS PH 7.25 (7.35-7.45); ARTERIAL BLOOD GAS PO2 81 mm/Hg (80-100)
--- NOTE | 2018-04-17 13:10 | CP.PCM.CON ---
History of Present Illness - History of Present Illness History of Present Illness: reason for consultation renal and dialysis the son and daughter at the bedside patient is a 77 years of age known to me with end stage renal disease on maintenance hemodialysis. Recently she moved with her daughter to another county and different dialysis unit. However she missed dialysis and she came to the emergency room complaining of shortness of breath difficulty breathing patient required to be intubated in the emergency room because of volume overload and respiratory failure. Patient known to be noncompliance she does at all the time she does not go to dialysis as outpatient on regular basis and she keep coming to the emergency room was numerous of problem including hyperkalemia congestive heart failure hypertension among other things. Past medical history Noncompliance lady with dialysis with chronic end stage renal disease Hyperphosphatemia Again Walker hyperparathyroidism Anemia Hypertension Review of Systems - Review of Systems Systems not reviewed;Unavailable: Respiratory Distress - Constitutional Constitutional: absent: Chills - EENT Eyes: As Per HPI, Irritation - Cardiovascular Cardiovascular: Dyspnea, Edema, Leg Edema - Respiratory Respiratory: Cough, Dyspnea, Chest Congestion. absent: Hemoptysis - Gastrointestinal Gastrointestinal: absent: Abdominal Pain, Coffee Ground Emesis, Vomiting - Genitourinary Genitourinary: Nocturia - Musculoskeletal Musculoskeletal: Muscle Weakness. absent: Joint Swelling - Neurological Neurological: As Per HPI, Confusion. absent: Focal Weakness - Psychiatric Psychiatric: Anxiety - Endocrine Endocrine: Fatigue - Hematologic/Lymphatic Hematologic: absent: Easy Bleeding Past Patient History - Infectious Disease Hx of Infectious Diseases: None - Tetanus Immunizations Tetanus Immunization: Unknown - Past Medical History & Family History Past Medical History?: Yes - Past Social History Smoking Status: Never Smoked - CARDIAC Hx Congestive Heart Failure: Yes Hx Hypercholesterolemia: Yes Hx Hypertension: Yes - PULMONARY Hx Pneumonia: Yes - NEUROLOGICAL Hx Alzheimer's Disease: Yes Hx Dementia: Yes - HEENT Hx HEENT Problems: No - RENAL Hx Chronic Kidney Disease: Yes Hx Kidney Stones: No - ENDOCRINE/METABOLIC Hx Endocrine Disorders: No - HEMATOLOGICAL/ONCOLOGICAL Hx Anemia: Yes Hx Human Immunodeficiency Virus (HIV): No - INTEGUMENTARY Hx Dermatological Problems: No - MUSCULOSKELETAL/RHEUMATOLOGICAL Hx Musculoskeletal Disorders: No Hx Falls: No - GASTROINTESTINAL Hx Gastrointestinal Disorders: Yes Hx Constipation: Yes - GENITOURINARY/GYNECOLOGICAL Hx Genitourinary Disorders: Yes - PSYCHIATRIC Hx Anxiety: Yes Hx Schizophrenia: No - SURGICAL HISTORY Hx Appendectomy: Yes Hx Tonsillectomy: Yes - ANESTHESIA Hx Anesthesia: Yes Hx Anesthesia Reactions: No Hx Malignant Hyperthermia: No Meds Allergies/Adverse Reactions: Allergies Allergy/AdvReac Type Severity Reaction Status Date / Time No Known Allergies Allergy Verified 04/17/18 09:25 - Medications Medications: Current Medications Propofol (Diprivan) 1,000 mg in 100 mls @ 1.701 mls/hr IV .Q24H ANKUR; Protocol Stop: 04/18/18 11:07 Last Admin: 04/17/18 11:09 Dose: 5 mcg/kg/min, 1.701 mls/hr Nitroglycerin/Dextrose (Nitroglycerin 50 Mg/250 Ml D5w) 50 mg in 250 mls @ 1.5 mls/hr IV .Q24H ONE; Protocol Stop: 04/18/18 12:14 Physical Exam - Constitutional Appears: In Acute Distress - Eye Exam Eye Exam: Conjunctival injection - ENT Exam ENT Exam: Mucous Membranes Moist - Neck Exam Neck exam: Negative for: Lymphadenopathy - Respiratory Exam Respiratory Exam: Rales, Rhonchi, Wheezes. absent: Chest Wall Tenderness - Cardiovascular Exam Cardiovascular Exam: REGULAR RHYTHM. absent: Gallop, Rubs - GI/Abdominal Exam GI & Abdominal Exam: Firm, Normal Bowel Sounds - Extremities Exam Extremities exam: Negative for: calf tenderness - Back Exam Back exam: absent: CVA tenderness (L), CVA tenderness (R) - Neurological Exam Neurological exam: Altered - Psychiatric Exam Psychiatric exam: Flat Affect Results - Vital Signs Recent Vital Signs: Last Vital Signs Temp 97 F L 04/17/18 09:26 Pulse 107 H 04/17/18 11:09 Resp 19 04/17/18 11:09 BP 198/124 H 04/17/18 11:09 Pulse Ox 92 L 04/17/18 11:59 - Labs Result Diagrams: 04/17/18 10:06 04/17/18 10:06 Labs: Laboratory Results - last 24 hr 04/17/18 04/17/18 04/17/18 09:29 10:06 10:06 WBC 6.9 D RBC 3.61 L Hgb 10.8 L Hct 32.3 L MCV 89.4 MCH 29.9 MCHC 33.4 RDW 14.9 H Plt Count 145 MPV 11.1 Neut % (Auto) 71.8 Lymph % (Auto) 11.8 L [place] % (Auto) 10.9 H Eos % (Auto) 4.4 H Baso % (Auto) 1.1 Neut # (Auto) 5.0 Lymph # (Auto) 0.8 L [place] # (Auto) 0.8 Eos # (Auto) 0.3 Baso # (Auto) 0.1 PT INR APTT pCO2 36 pO2 65 L HCO3 24.2 ABG pH 7.42 ABG Total CO2 24.5 ABG O2 Saturation 97.8 ABG Base Excess -0.8 Nacho Test Yes ABG Potassium 5.4 H A-a O2 Difference 104.0 Sodium 133.0 136 Chloride 102.0 101 Glucose 116 H Lactate 0.5 L Vent Mode Mechanical Rate FiO2 30.0 Tidal Volume PEEP Potassium 5.5 H Carbon Dioxide 23 Anion Gap 18 BUN 78 H Creatinine 5.8 H Est GFR ( Amer) 9 Est GFR (Non-Af Amer) 7 Random Glucose 122 H Calcium 10.2 Phosphorus 4.7 H Magnesium 2.0 Total Bilirubin 0.6 AST 26 ALT 21 Alkaline Phosphatase 104 Troponin I 0.0230 NT-Pro-B Natriuret Pep 60280 H Total Protein 7.2 Albumin 4.3 Globulin 3.0 Albumin/Globulin Ratio 1.5 Arterial Blood Potassium 5.4 H Influenza Typ A,B (EIA) 04/17/18 04/17/18 04/17/18 10:06 10:06 12:05 WBC RBC Hgb Hct MCV MCH MCHC RDW Plt Count MPV Neut % (Auto) Lymph % (Auto) [place] % (Auto) Eos % (Auto) Baso % (Auto) Neut # (Auto) Lymph # (Auto) [place] # (Auto) Eos # (Auto) Baso # (Auto) PT 9.9 INR 0.9 APTT 31.3 pCO2 51 H pO2 81 HCO3 20.9 L ABG pH 7.25 L ABG Total CO2 24.0 ABG O2 Saturation 98.4 H ABG Base Excess -5.1 L Nacho Test Yes ABG Potassium 5.8 H A-a O2 Difference 568.0 Sodium 134.0 Chloride 100.0 Glucose 249 H Lactate 1.6 Vent Mode Prvc/ac Mechanical Rate 14 FiO2 100.0 Tidal Volume 500 PEEP 5 Potassium Carbon Dioxide Anion Gap BUN Creatinine Est GFR ( Amer) Est GFR (Non-Af Amer) Random Glucose Calcium Phosphorus Magnesium Total Bilirubin AST ALT Alkaline Phosphatase Troponin I NT-Pro-B Natriuret Pep Total Protein Albumin Globulin Albumin/Globulin Ratio Arterial Blood Potassium 5.8 H Influenza Typ A,B (EIA) Negative for flu a/b Assessment & Plan (1) Hyperkalemia Status: Acute (2) Acute pulmonary edema Assessment and Plan: end stage renal disease patient on chronic maintenance hemodialysis who has been missing dialysis and presented with diagnosis of acute pulmonary edema respiratory failure required intubation Hypertension history of hyperphosphatemia History of secondary hyperparathyroidism History of anemia the plan Urgent hemodialysis I spoke to the family the daughter and the son at the bedside Order was given Consent was taken Discussed with the dialysis nurse as well. Continue with the medication including phosphorus binders antihypertensive medication and EPO Thank you for referring this patient Status: Acute
--- NOTE | 2018-04-17 14:04 | CP.PCM.HP ---
History of Present Illness - History of Present Illness History of Present Illness: History obtained from review of patients medical record and pts son. 77 yo female with PMHX of ESRD on HD (Mondays and ), anemia, anxiety and hypercholesterolemia, dementia presented to [facility] ED for cough and worsening dyspnea since last night. Patient is not compliant with outpatient HD. Missed dialysis last Sunday (last HD was 04/11/18). In the ED, patient was in respiratory distress and was intubated. ROS: unable to obtain due to patient in intubation. PMD: Dr. Genaro Martínez [facility] [facility] [employer]: Dr. Benedict PMHx: Alzheimers/dementia, ESRD (on HD), anemia, anxiety and hypercholesterolemia SurgHx: appendectomy, tonsillectomy FMHx: HTN SocHx: denies tobacco, Etoh or drugs Allergies: NKDA Medications: at home included Xanax, Lipitor, Norvasc, Lipitor, Zestril, Trandate, Remeron, Oscal. Present on Admission - Present on Admission Any Indicators Present on Admission: No Past Patient History - Infectious Disease Hx of Infectious Diseases: None - Tetanus Immunizations Tetanus Immunization: Unknown - Past Medical History & Family History Past Medical History?: Yes - Past Social History Smoking Status: Never Smoked - CARDIAC Hx Congestive Heart Failure: Yes Hx Hypercholesterolemia: Yes Hx Hypertension: Yes - PULMONARY Hx Pneumonia: Yes - NEUROLOGICAL Hx Alzheimer's Disease: Yes Hx Dementia: Yes - HEENT Hx HEENT Problems: No - RENAL Hx Chronic Kidney Disease: Yes Hx Kidney Stones: No - ENDOCRINE/METABOLIC Hx Endocrine Disorders: No - HEMATOLOGICAL/ONCOLOGICAL Hx Anemia: Yes Hx Human Immunodeficiency Virus (HIV): No - INTEGUMENTARY Hx Dermatological Problems: No - MUSCULOSKELETAL/RHEUMATOLOGICAL Hx Musculoskeletal Disorders: No Hx Falls: No - GASTROINTESTINAL Hx Gastrointestinal Disorders: Yes Hx Constipation: Yes - GENITOURINARY/GYNECOLOGICAL Hx Genitourinary Disorders: Yes - PSYCHIATRIC Hx Anxiety: Yes Hx Schizophrenia: No - SURGICAL HISTORY Hx Appendectomy: Yes Hx Tonsillectomy: Yes - ANESTHESIA Hx Anesthesia: Yes Hx Anesthesia Reactions: No Hx Malignant Hyperthermia: No Meds Allergies/Adverse Reactions: Allergies Allergy/AdvReac Type Severity Reaction Status Date / Time No Known Allergies Allergy Verified 04/17/18 09:25 Physical Exam - Constitutional Appears: Confused, Other (s/p intubated) - Head Exam Head Exam: ATRAUMATIC - Eye Exam Eye Exam: absent: Scleral icterus - ENT Exam ENT Exam: Mucous Membranes Moist - Respiratory Exam Respiratory Exam: Decreased Breath Sounds. absent: Wheezes - Cardiovascular Exam Cardiovascular Exam: REGULAR RHYTHM, +S1, +S2 - GI/Abdominal Exam GI & Abdominal Exam: Normal Bowel Sounds, Soft. absent: Tenderness - Extremities Exam Extremities exam: Positive for: normal inspection, pedal pulses present. Negative for: calf tenderness, pedal edema - Neurological Exam Neurological exam: Altered - Skin Skin Exam: Normal Color, Warm Results - Vital Signs Recent Vital Signs: Last Vital Signs Temp 98 F 04/17/18 13:26 Pulse 83 04/17/18 13:26 Resp 22 04/17/18 13:26 BP 138/70 04/17/18 13:26 Pulse Ox 100 04/17/18 13:26 - Labs Result Diagrams: 04/17/18 10:06 04/17/18 10:06 Labs: Laboratory Results - last 24 hr 04/17/18 04/17/18 04/17/18 09:29 10:06 10:06 WBC 6.9 D RBC 3.61 L Hgb 10.8 L Hct 32.3 L MCV 89.4 MCH 29.9 MCHC 33.4 RDW 14.9 H Plt Count 145 MPV 11.1 Neut % (Auto) 71.8 Lymph % (Auto) 11.8 L [place] % (Auto) 10.9 H Eos % (Auto) 4.4 H Baso % (Auto) 1.1 Neut # (Auto) 5.0 Lymph # (Auto) 0.8 L [place] # (Auto) 0.8 Eos # (Auto) 0.3 Baso # (Auto) 0.1 PT INR APTT pCO2 36 pO2 65 L HCO3 24.2 ABG pH 7.42 ABG Total CO2 24.5 ABG O2 Saturation 97.8 ABG Base Excess -0.8 Nacho Test Yes ABG Potassium 5.4 H A-a O2 Difference 104.0 Sodium 133.0 136 Chloride 102.0 101 Glucose 116 H Lactate 0.5 L Vent Mode Mechanical Rate FiO2 30.0 Tidal Volume PEEP Potassium 5.5 H Carbon Dioxide 23 Anion Gap 18 BUN 78 H Creatinine 5.8 H Est GFR ( Amer) 9 Est GFR (Non-Af Amer) 7 Random Glucose 122 H Calcium 10.2 Phosphorus 4.7 H Magnesium 2.0 Total Bilirubin 0.6 AST 26 ALT 21 Alkaline Phosphatase 104 Troponin I 0.0230 NT-Pro-B Natriuret Pep 54107 H Total Protein 7.2 Albumin 4.3 Globulin 3.0 Albumin/Globulin Ratio 1.5 Arterial Blood Potassium 5.4 H Influenza Typ A,B (EIA) 04/17/18 04/17/18 04/17/18 10:06 10:06 12:05 WBC RBC Hgb Hct MCV MCH MCHC RDW Plt Count MPV Neut % (Auto) Lymph % (Auto) [place] % (Auto) Eos % (Auto) Baso % (Auto) Neut # (Auto) Lymph # (Auto) [place] # (Auto) Eos # (Auto) Baso # (Auto) PT 9.9 INR 0.9 APTT 31.3 pCO2 51 H pO2 81 HCO3 20.9 L ABG pH 7.25 L ABG Total CO2 24.0 ABG O2 Saturation 98.4 H ABG Base Excess -5.1 L Nacho Test Yes ABG Potassium 5.8 H A-a O2 Difference 568.0 Sodium 134.0 Chloride 100.0 Glucose 249 H Lactate 1.6 Vent Mode Prvc/ac Mechanical Rate 14 FiO2 100.0 Tidal Volume 500 PEEP 5 Potassium Carbon Dioxide Anion Gap BUN Creatinine Est GFR ( Amer) Est GFR (Non-Af Amer) Random Glucose Calcium Phosphorus Magnesium Total Bilirubin AST ALT Alkaline Phosphatase Troponin I NT-Pro-B Natriuret Pep Total Protein Albumin Globulin Albumin/Globulin Ratio Arterial Blood Potassium 5.8 H Influenza Typ A,B (EIA) Negative for flu a/b Assessment & Plan - Assessment and Plan (Free Text) Assessment: Assessment: 77 yo female with pmhx of dementia, ESRD on HD, anxiety, hypercholesterolemia admitted for acute respiratory failure due to fluid overload and missed HD. Plan: - admitted to ICU - Nephrology consult appreciated- Dr. Benedict -Will get urgent hemodialysis -Rest of the plan as ordered Patient seen and examined with Dr. Quang Valerio, pgy-2
[2018-04-17] MEDS ORDERED: Pneumococcal 23-Valent Vaccine IM ONE (14:12)
--- NOTE | 2018-04-17 15:09 | CP.CCUPN ---
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 Later became agitated, does have a h/o Anxiety disorder and Dementia, then sedated with Propofol. Other vitals and I/O s reviewed: afebrile, no fever spikes on admission. BP 130-150 systolic on NTG drip. HR 74,, RR 16 on AC 16, TV 500, 100% PEEP5, with SPO2 100%. Allergies: NKDA Meds: at home included Xanax, Lipitor, Norvasc, Lipitor, Zestril, Trandate, Remeron, Oscal. ROS: No other pertinent negs or positives on 10+ system review unobtainable due to sedation. PMSFH: All other Nursing and physician documentation reviewed to date; no new pertinent info noted relevant to current medical problems. EXAM- HEENT: no icterus, no gaze preference, pupils equal and reactive NECK: No JVD visible, supple, carotids equal upstroke bilat/no bruits CHEST: decreased BS bases, no wheezes audible HEART: regular, distant, Tachy S1S2, no rubs ABD: soft, no increased distention, no tympany, no focal tenderness, BS hypoactive, no rebound. EXT: warm, no edema bilaterally; no peripheral/ digital cyanosis, no calf ten derness or palpable cords, distal pulses intact and symmetrical. NEURO: no gross focal motor deficits. SKIN: no rashes, warm and dry LABS: WBC= 6.9 HGB= 10.8 PLTs= 145K 7.25/51/81 Na= 136 K= 5.5 CL= 101 HCO3= 23 BUN/Cr= 78/5.8 BS= 122 Trop #1 negtaive BNP= 47846 EKG: - sinus 99/min, Inverted T V5-6, different from last study 03/29 with slower rate and in verted Ts 1, L and V6. CXR: (my interp) ETT position OK above efrain, bilat R worse tna L sided congestive changes (my interp). IMPRESSION / MAJOR PROBLEMS NOW: 1. Acute Hypoxemic Resp Insufficiency 2 Fluid overload / Pulm Edema, r/o AMI- NSTEMI 2. Hyperkalemia 2 ESRD 3. Accelerated HTN 2 non-compliancy with meds and HD PLAN: 1. Interim MV support. check repeat ABG, expect good tolerance for extubation in AM. Undergoing STAT HD. Check repeat K levels 2. Serial Trops and EKGs. 3. IV NTG titrated to keep MAP 90-100 for now. 4. Resume Norvasc, IV Nitrates. 5. Check repeat CXR post HD. No signs of any infection. 6. Full Code status, no Advance Directives noted.
--- NOTE | 2018-04-17 16:38 | CARD ---
APPROVED REPORT Date of service: 04/17/2018 EKG Measurement Heart [id number] <Conclusion> Normal sinus rhythm Possible Left atrial enlargement Left ventricular hypertrophy ST & T wave abnormality, consider lateral ischemia Abnormal ECG
[2018-04-18] MEDS: Propofol 10 mg/ml 1,000 MG/100 ML VIAL IV SCH (04:22)
[2018-04-18 05:19] LABS: ABG ALLEN TEST YES; ARTERIAL BLOOD GAS HCO3 26.4 mmol/L (21-28); ARTERIAL BLOOD GAS HEMOGLOBIN 10.6 g/dL (11.7-17.4); ARTERIAL BLOOD GAS O2 CAPACITY 14.9 mL/dL (16-24); ARTERIAL BLOOD GAS O2 CONTENT 14.9 ML/dL (15-23); ARTERIAL BLOOD GAS PCO2 41 mm/Hg (35-45); ARTERIAL BLOOD GAS PH 7.42 (7.35-7.45); ARTERIAL BLOOD GAS PO2 215 mm/Hg (80-100); ARTERIAL BLOOD GAS TCO2 27.9 mmol/L (22-28)
[2018-04-18 05:37] LABS: HEMOGLOBIN 10.9 g/dL (12.0-16.0); MEAN CELL VOLUME 89.2 fl (81.0-99.0); MEAN CORPUSCULAR HEMOGLOBIN 29.8 pg (27.0-31.0); MEAN CORPUSCULAR HGB CONC 33.4 g/dL (33.0-37.0); RBC 3.68 Mil/uL (3.80-5.20); RED CELL DISTRIBUTION WIDTH 15.2 % (11.5-14.5); WHITE BLOOD COUNT 8.2 K/uL (4.8-10.8)
[2018-04-18 05:59] LABS: CALCIUM 9.9 mg/dL (8.4-10.2)
--- NOTE | 2018-04-18 09:58 | CP.PCM.PN ---
Subjective - Date & Time of Evaluation Date of Evaluation: 04/18/18 Time of Evaluation: 09:59 - Subjective Subjective: patient awake and consciousness although she appeared to have shortness of breath and difficulty breathing she extubated herself no vomiting reported Objective - Vital Signs/Intake and Output Vital Signs (last 24 hours): Temp Pulse Resp BP Pulse Ox 98.3 F 83 16 170/61 H 100 04/18/18 08:00 04/18/18 09:00 04/18/18 09:00 04/18/18 09:00 04/18/18 09:00 Intake and Output: 04/18/18 04/18/18 06:59 18:59 Intake Total 200 Balance 200 - Medications Medications: Current Medications Propofol (Diprivan) 1,000 mg in 100 mls @ 1.701 mls/hr IV .Q24H [facility]; Protocol Stop: 04/18/18 11:07 Last Admin: 04/18/18 04:22 Dose: 50 mcg/kg/min, 17.01 mls/hr Nitroglycerin/Dextrose (Nitroglycerin 50 Mg/250 Ml D5w) 50 mg in 250 mls @ 1.5 mls/hr IV .Q24H [facility]; Protocol Stop: 04/18/18 12:14 Morphine Sulfate (Morphine) 4 mg IVP Q4 PRN PRN Reason: Agitation Last Admin: 04/18/18 03:51 Dose: 4 mg Pantoprazole Sodium (Protonix Inj) 40 mg IVP DAILY [facility] Last Admin: 04/18/18 08:24 Dose: 40 mg - Labs Labs: 04/18/18 04:20 04/18/18 04:20 PT 9.9 Seconds (9.8-13.1) 04/17/18 10:06 INR 0.9 04/17/18 10:06 APTT 31.3 Seconds (25.6-37.1) 04/17/18 10:06 - Constitutional Appears: No Acute Distress - Eye Exam Eye Exam: Conjunctival injection - ENT Exam ENT Exam: Mucous Membranes Moist - Neck Exam Neck Exam: absent: Lymphadenopathy - Respiratory Exam Respiratory Exam: Rhonchi - GI/Abdominal Exam GI & Abdominal Exam: Soft, Normal Bowel Sounds - Extremities Exam Extremities Exam: absent: Calf Tenderness - Back Exam Back Exam: absent: CVA tenderness (L), CVA tenderness (R) - Neurological Exam Neurological Exam: Awake - Psychiatric Exam Psychiatric exam: Agitated - Skin Skin Exam: absent: Cyanosis Assessment and Plan (1) Hyperkalemia Status: Acute (2) Acute pulmonary edema Status: Acute (3) Chronic kidney disease requiring chronic dialysis Assessment & Plan: end stage renal disease patient on chronic maintenance hemodialysis who has been missing dialysis and presented with diagnosis of acute pulmonary edema respiratory failure required intubation Hypertension history of hyperphosphatemia History of secondary hyperparathyroidism History of anemia the plan patient extubated but still congested Patient need more hemodialysis mainly for ultrafiltration to remove additional 2000 mL of fluid. Order was given\ Hypertension continue on antihypertensive medication Serum phosphorus and PTH pending hyperkalemia corrected Status: Acute
--- NOTE | 2018-04-18 10:04 | RAD ---
Date of service: 04/18/2018 HISTORY: ETT placement COMPARISON: 04/17/2018 FINDINGS: LUNGS: Minimal patchy opacity at right base. Almost complete resolution of right basilar infiltrate. Resolved left basilar infiltrate. No new opacity elsewhere. PLEURA: No significant pleural effusion identified, no pneumothorax apparent. CARDIOVASCULAR: Normal heart size. ET tube unchanged. OSSEOUS STRUCTURES: No significant abnormalities. VISUALIZED UPPER ABDOMEN: Normal. OTHER FINDINGS: None. IMPRESSION: Almost complete resolution of bibasilar infiltrates. No pleural effusion. ET tube noted. Likely resolving pulmonary edema.
--- NOTE | 2018-04-18 10:38 | CP.CCUPN ---
CCU Subjective - Physician Review Subjective (Free Text): Self-extubated this Am after placement on low level CPAP PS in an effort to wean from MV and extubate. No apparent complications noted for self-extubation, awake and verbalizing with a hoarse voice, denies any OSB at bed rest, underwent HD yesterday evening. Other vitals and I/O s reviewed: afebrile, no fever spikes on admission. BP 170 systolic off NTG drip. HR 88, RR 21 post extubation with SPO2 100% on 40% VM. ROS: No other pertinent negs or positives on 10+ system review. PMSFH: All other Nursing and physician documentation reviewed to date; no new pertinent info noted relevant to current medical problems. EXAM- HEENT: no icterus, no gaze preference, pupils equal and reactive NECK: No JVD visible, supple, carotids equal upstroke bilat/no bruits CHEST: decreased BS bases, no wheezes audible HEART: regular, distant, Tachy S1S2, no rubs ABD: soft, no increased distention, no tympany, no focal tenderness, BS hypoactive, no rebound. EXT: warm, no edema bilaterally; no peripheral/ digital cyanosis, no calf tenderness or palpable cords, distal pulses intact and symmetrical. NEURO: no gross focal motor deficits. SKIN: no rashes, warm and dry LABS: WBC= 8.2 HGB= 10.9 PLTs= 150K 7.42/41/215 Na= 138 K= 5.0 CL= 100 HCO3= 23 BUN/Cr= 39/3.1 BS= 141 CXR: (my interp) ETT position OK above efrain, minor bilateral basilar congestive changes(my interp). IMPRESSION / MAJOR PROBLEMS NOW: 1. Acute Hypoxemic Resp Insufficiency 2 Fluid overload / Pulm Edema, r/o AMI- NSTEMI 2. Hyperkalemia 2 ESRD 3. Accelerated HTN 2 non-compliancy with meds and HD PLAN: 1. Repeat HD today as per Nephro, perhaps only for UF. Watch K levels. 2. Resume PO Norvasc, consider adding PO / topical nitrates. 3. Check with family, re-discuss and clarify any Advance Directives. 4. Stable for Telemetry bed.
[2018-04-18] MEDS: Acetaminophen 650mg/20.3ml solution UD PO PRN (11:03)
--- NOTE | 2018-04-18 12:04 | CP.PCM.PN ---
Subjective - Date & Time of Evaluation Date of Evaluation: 04/18/18 Time of Evaluation: 12:03 - Subjective Subjective: Patient seen and examined this afternoon. Patient self extubated this morning. She is awake, alert and conversing with her son and daughter. Reports shortness breath has improved. Denies any other complaints. Objective - Vital Signs/Intake and Output Vital Signs (last 24 hours): Temp Pulse Resp BP Pulse Ox 98.3 F 75 22 140/55 L 100 04/18/18 08:00 04/18/18 12:01 04/18/18 10:00 04/18/18 12:01 04/18/18 10:00 Intake and Output: 04/18/18 04/18/18 06:59 18:59 Intake Total 200 Balance 200 - Medications Medications: Current Medications Acetaminophen (Tylenol 650mg/20.3ml Solution Ud) 650 mg PO Q6 PRN PRN Reason: Pain, Mild (1-3) Last Admin: 04/18/18 11:03 Dose: 650 mg Amlodipine Besylate (Norvasc) 5 mg PO DAILY [facility] Last Admin: 04/18/18 12:01 Dose: 5 mg Labetalol HCl (Trandate) 100 mg PO BID [facility] Lisinopril (Zestril) 5 mg PO DAILY [facility] Morphine Sulfate (Morphine) 4 mg IVP Q4 PRN PRN Reason: Agitation Last Admin: 04/18/18 03:51 Dose: 4 mg - Labs Labs: 04/18/18 04:20 04/18/18 04:20 PT 9.9 Seconds (9.8-13.1) 04/17/18 10:06 INR 0.9 04/17/18 10:06 APTT 31.3 Seconds (25.6-37.1) 04/17/18 10:06 - Constitutional Appears: Non-toxic, No Acute Distress - Head Exam Head Exam: NORMAL INSPECTION - Eye Exam Eye Exam: Normal appearance - ENT Exam ENT Exam: Mucous Membranes Moist - Respiratory Exam Respiratory Exam: absent: Wheezes, Respiratory Distress Additional comments: B/L crackles - Cardiovascular Exam Cardiovascular Exam: REGULAR RHYTHM, +S1, +S2 - GI/Abdominal Exam GI & Abdominal Exam: Soft, Normal Bowel Sounds. absent: Tenderness - Extremities Exam Extremities Exam: Normal Inspection. absent: Calf Tenderness, Pedal Edema - Neurological Exam Neurological Exam: Alert, Awake - Psychiatric Exam Psychiatric exam: Normal Affect - Skin Skin Exam: Normal Color, Warm Assessment and Plan - Assessment and Plan (Free Text) Assessment: Assessment: 77 yo female with pmhx of dementia, ESRD on HD, anxiety, hypercholesterolemia admitted for acute respiratory failure due to fluid overload and missed HD, s/p intubated yesterday and self-extubation this morning. Plan: - Nephrology consult appreciated- Dr. Benedict -received urgent hemodialysis last night and will receive more dialysis today. -resume home medications -rest of the plan as ordered. Patient seen and examined with Dr. Quang Valerio, pgy-2
[2018-04-18] MEDS: Multivitamin Vitamin B Complex (Nephro-Vite) Tab PO SCH (14:16)
[2018-04-19 05:50] LABS: HEMOGLOBIN 10.8 g/dL (12.0-16.0); MEAN CELL VOLUME 89.6 fl (81.0-99.0); MEAN CORPUSCULAR HEMOGLOBIN 29.7 pg (27.0-31.0); MEAN CORPUSCULAR HGB CONC 33.1 g/dL (33.0-37.0); RBC 3.63 Mil/uL (3.80-5.20); WHITE BLOOD COUNT 6.7 K/uL (4.8-10.8)
[2018-04-19 06:28] LABS: ALB/GLOB RATIO 1.3 (1.0-2.1); CALCIUM 9.3 mg/dL (8.4-10.2)
[2018-04-19] MEDS: Multivitamin Vitamin B Complex (Nephro-Vite) Tab PO SCH (08:57)
--- NOTE | 2018-04-19 11:32 | CP.PCM.PN ---
Subjective - Date & Time of Evaluation Date of Evaluation: 04/19/18 Time of Evaluation: 11:32 - Subjective Subjective: patient sitting gotten awake and consciousness although complaining of sore throat perhaps From Intubation Objective - Vital Signs/Intake and Output Vital Signs (last 24 hours): Temp Pulse Resp BP Pulse Ox 98.1 F 73 24 158/79 H 98 04/19/18 09:00 04/19/18 09:00 04/19/18 09:00 04/19/18 09:00 04/19/18 09:00 Intake and Output: 04/19/18 04/19/18 06:59 18:59 Intake Total 40 Output Total 50 Balance -10 - Medications Medications: Current Medications Acetaminophen (Tylenol 650mg/20.3ml Solution Ud) 650 mg PO Q6 PRN PRN Reason: Pain, Mild (1-3) Last Admin: 04/18/18 11:03 Dose: 650 mg Amlodipine Besylate (Norvasc) 5 mg PO DAILY [facility] Last Admin: 04/19/18 08:58 Dose: 5 mg Atorvastatin Calcium (Lipitor) 20 mg PO DAILY [facility] Last Admin: 04/19/18 08:58 Dose: 20 mg Calcium Carbonate (Oscal) 500 mg PO TID [facility] Last Admin: 04/19/18 08:57 Dose: 500 mg Labetalol HCl (Trandate) 100 mg PO BID [facility] Last Admin: 04/19/18 08:57 Dose: 100 mg Lisinopril (Zestril) 5 mg PO DAILY [facility] Last Admin: 04/19/18 08:58 Dose: 5 mg Mirtazapine (Remeron) 7.5 mg PO HS [facility] Last Admin: 04/18/18 22:45 Dose: 7.5 mg Morphine Sulfate (Morphine) 4 mg IVP Q4 PRN PRN Reason: Agitation Last Admin: 04/18/18 03:51 Dose: 4 mg Vitamin B Complex/Vit C/Folic Acid (Nephro-Valentino) 1 tab PO DAILY [facility] Last Admin: 04/19/18 08:57 Dose: 1 tab - Labs Labs: 04/19/18 04:20 04/19/18 04:20 PT 9.9 Seconds (9.8-13.1) 04/17/18 10:06 INR 0.9 04/17/18 10:06 APTT 31.3 Seconds (25.6-37.1) 04/17/18 10:06 - Constitutional Appears: No Acute Distress - Eye Exam Eye Exam: Conjunctival injection - ENT Exam ENT Exam: Mucous Membranes Moist - Neck Exam Neck Exam: absent: Lymphadenopathy - Respiratory Exam Respiratory Exam: NORMAL BREATHING PATTERN. absent: Chest Wall Tenderness - Cardiovascular Exam Cardiovascular Exam: absent: Gallop, JVD, Rubs - GI/Abdominal Exam GI & Abdominal Exam: Soft, Normal Bowel Sounds - Extremities Exam Extremities Exam: absent: Calf Tenderness - Back Exam Back Exam: absent: CVA tenderness (L), CVA tenderness (R) - Neurological Exam Neurological Exam: Alert - Psychiatric Exam Psychiatric exam: Normal Affect - Skin Skin Exam: absent: Cyanosis Assessment and Plan (1) Hyperkalemia Status: Acute (2) Acute pulmonary edema Status: Acute (3) Chronic kidney disease requiring chronic dialysis Assessment & Plan: end stage renal disease patient on chronic maintenance hemodialysis who has been missing dialysis and presented with diagnosis of acute pulmonary edema respiratory failure required intubation Hypertension history of hyperphosphatemia History of secondary hyperparathyroidism History of anemia the plan Patient extubated no longer on respirator and doing much better Pulmonary edema resolved Hemodialysis scheduled shortly and he will be twice a week Sunday and Sunday Blood pressure better controlled add EPO Status: Acute
[2018-04-19] MEDS ORDERED: Epoetin Alfa 20000 UNIT/ML Inj IV ONE (11:35)
--- NOTE | 2018-04-19 15:11 | CP.PCM.PN ---
Subjective - Date & Time of Evaluation Date of Evaluation: 04/19/18 Time of Evaluation: 11:50 - Subjective Subjective: Patient seen and examined this morning with Dr. Leon. Pt reports some throat pain but denies any shortness of breath or cough. Tolerating PO. Denies any other complaints. Objective - Vital Signs/Intake and Output Vital Signs (last 24 hours): Temp Pulse Resp BP Pulse Ox 98.4 F 68 16 119/48 L 96 04/19/18 12:19 04/19/18 12:19 04/19/18 12:19 04/19/18 12:19 04/19/18 12:19 Intake and Output: 04/19/18 04/19/18 06:59 18:59 Intake Total 40 Output Total 50 Balance -10 - Medications Medications: Current Medications Acetaminophen (Tylenol 650mg/20.3ml Solution Ud) 650 mg PO Q6 PRN PRN Reason: Pain, Mild (1-3) Last Admin: 04/18/18 11:03 Dose: 650 mg Amlodipine Besylate (Norvasc) 5 mg PO DAILY [facility] Last Admin: 04/19/18 08:58 Dose: 5 mg Atorvastatin Calcium (Lipitor) 20 mg PO DAILY [facility] Last Admin: 04/19/18 08:58 Dose: 20 mg Labetalol HCl (Trandate) 100 mg PO BID [facility] Last Admin: 04/19/18 08:57 Dose: 100 mg Lisinopril (Zestril) 5 mg PO DAILY [facility] Last Admin: 04/19/18 08:58 Dose: 5 mg Mirtazapine (Remeron) 7.5 mg PO HS [facility] Last Admin: 04/18/18 22:45 Dose: 7.5 mg Morphine Sulfate (Morphine) 4 mg IVP Q4 PRN PRN Reason: Agitation Last Admin: 04/18/18 03:51 Dose: 4 mg Sevelamer HCl (Renagel) 800 mg PO TID [facility] Last Admin: 04/19/18 13:23 Dose: 800 mg Vitamin B Complex/Vit C/Folic Acid (Nephro-Valentino) 1 tab PO DAILY [facility] Last Admin: 04/19/18 08:57 Dose: 1 tab - Labs Labs: 04/19/18 04:20 04/19/18 04:20 PT 9.9 Seconds (9.8-13.1) 04/17/18 10:06 INR 0.9 04/17/18 10:06 APTT 31.3 Seconds (25.6-37.1) 04/17/18 10:06 - Additional Findings Additional findings: - Constitutional Appears: Non-toxic, No Acute Distress - Head Exam Head Exam: NORMAL INSPECTION - Eye Exam Eye Exam: Normal appearance - ENT Exam ENT Exam: Mucous Membranes Moist - Respiratory Exam Respiratory Exam: absent: Wheezes, Respiratory Distress, rales or rhonchi - Cardiovascular Exam Cardiovascular Exam: REGULAR RHYTHM, +S1, +S2 - GI/Abdominal Exam GI & Abdominal Exam: Soft, Normal Bowel Sounds. absent: Tenderness - Extremities Exam Extremities Exam: Normal Inspection. absent: Calf Tenderness, Pedal Edema - Neurological Exam Neurological Exam: Alert, Awake - Psychiatric Exam Psychiatric exam: Normal Affect - Skin Skin Exam: Normal Color, Warm Assessment and Plan - Assessment and Plan (Free Text) Assessment: 77 yo female with pmhx of dementia, ESRD on HD, anxiety, hypercholesterolemia ad mitted for acute respiratory failure due to fluid overload and missed HD. Recovering well after HD. Plan: - Nephrology consult appreciated- Dr. Benedict -Cardiology consult for hx CHF and elevated proBNP. -resume home medications -rest of the plan as ordered. Patient seen and examined with Dr. Edward Valerio, pgy-2
[2018-04-19] MEDS: Benzocaine/Menthol (Cepacol) Lozenge PO PRN ×2 (18:12→22:09)
[2018-04-19] MEDS: Acetaminophen 650mg/20.3ml solution UD PO PRN (19:04)
[2018-04-20] MEDS: Benzocaine/Menthol (Cepacol) Lozenge PO PRN ×2 (01:38→18:59)
[2018-04-20 08:32] LABS: HEMOGLOBIN 10.8 g/dL (12.0-16.0); MEAN CELL VOLUME 88.8 fl (81.0-99.0); MEAN CORPUSCULAR HEMOGLOBIN 29.4 pg (27.0-31.0); MEAN CORPUSCULAR HGB CONC 33.1 g/dL (33.0-37.0); RBC 3.67 Mil/uL (3.80-5.20); RED CELL DISTRIBUTION WIDTH 14.6 % (11.5-14.5); WHITE BLOOD COUNT 5.9 K/uL (4.8-10.8)
[2018-04-20] MEDS: Multivitamin Vitamin B Complex (Nephro-Vite) Tab PO SCH (08:32)
[2018-04-20 08:55] LABS: CALCIUM 9.1 mg/dL (8.4-10.2)
--- NOTE | 2018-04-20 09:48 | CP.PCM.CON ---
History of Present Illness - History of Present Illness History of Present Illness: This 77-year-old female, a hypertensive with end-stage renal disease requiring hemodialysis who has had a shunt constructed in the left upper extremity has had numerous hospita lizations for noncompliance with hemodialysis which results in volume overload requiring her to arrive in the emergency room volume overloaded with severe congestive cardiac failure and at times requiring ventilatory support as she did during this hospitalization. Following hemodialysis she has self extubated herself and has been tolerating nasal oxygen supplement. She was seen on the regular floor. She could carry on a conversation. She has never complained of chest pain or myocardial infarction and denies any history of smoking or diabetes. I have reviewed her chart and the patient has consistently declined to have coronary angiography to evaluate her coronary circulation. The patient has had a nuclear stress test in February of this year and no evidence of potentially ischemic myocardium was detected. An echocardiogram done 5 months back was reviewed. It does show significant left ventricular dysfunction with a left ventricular ejection fraction in the range of 35-40% with a stenotic aortic valve with a peak aortic valve gradient of approximately 36 mmHg. There was mitral annular calcification and severe left atrial enlargement. Physical examination shows a thin built elderly female who is alert awake coherent and can answer simple questions readily. Her respiratory rate was 18 breaths per minute and her heart rate was 74 bpm and regular there was AV shunt in the left upper extremity. Her blood pressure in the right upper extremity was 136/70 mmHg. Her jugular venous pressure was not elevated and there was no edema over her lower ex images. The apex was vaguely felt in the left sixth space slightly heaving in character. The first heart sound was muffled there was an ejection systolic murmur of aortic sclerosis in the left second space conducted to the base of the neck. The second heart sound was muffled but distinct of present. There was no S3 gallop. There were no rales. Her abdomen was soft and liver and spleen are not palpable. Her electrocardiogram shows sinus rhythm with diffuse ST-T abnormalities but no Q waves were detected. Her lab data was noted. Review off her nuclear stress test and echocardiogram was as noted above. Impression: Congestive cardiac failure secondary to noncompliance with hemodialysis and volume overload. Her heart failure is left ventricular, acute on chronic and systolic. End-stage renal disease secondary to hypertension. I have explained to the patient the importance of keeping her dialysis appointments. I have also stressed the fact that a coronary angiogram would settle the issue of whether coronary artery disease was responsible for part of her medical problems. Past Patient History - Infectious Disease Hx of Infectious Diseases: None - Tetanus Immunizations Tetanus Immunization: Unknown - Past Medical History & Family History Past Medical History?: Yes - Past Social History Smoking Status: Never Smoked - CARDIAC Hx Congestive Heart Failure: Yes Hx Hypercholesterolemia: Yes Hx Hypertension: Yes - PULMONARY Hx Pneumonia: Yes - NEUROLOGICAL Hx Alzheimer's Disease: Yes Hx Dementia: Yes - HEENT Hx HEENT Problems: No - RENAL Hx Chronic Kidney Disease: Yes Hx Kidney Stones: No - ENDOCRINE/METABOLIC Hx Endocrine Disorders: No - HEMATOLOGICAL/ONCOLOGICAL Hx Anemia: Yes Hx Human Immunodeficiency Virus (HIV): No - INTEGUMENTARY Hx Dermatological Problems: No - MUSCULOSKELETAL/RHEUMATOLOGICAL Hx Musculoskeletal Disorders: No Hx Falls: No - GASTROINTESTINAL Hx Gastrointestinal Disorders: Yes Hx Constipation: Yes - GENITOURINARY/GYNECOLOGICAL Hx Genitourinary Disorders: Yes - PSYCHIATRIC Hx Anxiety: Yes Hx Schizophrenia: No - SURGICAL HISTORY Hx Appendectomy: Yes Hx Tonsillectomy: Yes - ANESTHESIA Hx Anesthesia: Yes Hx Anesthesia Reactions: No Hx Malignant Hyperthermia: No Meds Allergies/Adverse Reactions: Allergies Allergy/AdvReac Type Severity Reaction Status Date / Time No Known Allergies Allergy Verified 04/17/18 09:25 - Medications Medications: Current Medications Acetaminophen (Tylenol 650mg/20.3ml Solution Ud) 650 mg PO Q6 PRN PRN Reason: Pain, Mild (1-3) Last Admin: 04/19/18 19:04 Dose: 650 mg Amlodipine Besylate (Norvasc) 5 mg PO DAILY [facility] Last Admin: 04/20/18 08:33 Dose: 5 mg Atorvastatin Calcium (Lipitor) 20 mg PO DAILY [facility] Last Admin: 04/20/18 08:32 Dose: 20 mg Benzocaine/Menthol (Cepacol Sore Throat) 1 gregory PO Q4 PRN PRN Reason: Sore Throat Last Admin: 04/20/18 01:38 Dose: 1 gregory Labetalol HCl (Trandate) 100 mg PO BID [facility] Last Admin: 04/20/18 08:32 Dose: 100 mg Lisinopril (Zestril) 5 mg PO DAILY [facility] Last Admin: 04/20/18 08:32 Dose: 5 mg Mirtazapine (Remeron) 7.5 mg PO [facility] Last Admin: 04/19/18 22:12 Dose: 7.5 mg Morphine Sulfate (Morphine) 4 mg IVP Q4 PRN PRN Reason: Agitation Last Admin: 04/18/18 03:51 Dose: 4 mg Sevelamer HCl (Renagel) 800 mg PO TID [facility] Last Admin: 04/20/18 08:32 Dose: 800 mg Vitamin B Complex/Vit C/Folic Acid (Nephro-Valentino) 1 tab PO DAILY [facility] Last Admin: 04/20/18 08:32 Dose: 1 tab Results - Vital Signs Recent Vital Signs: Last Vital Signs Temp 97.5 F L 04/20/18 08:28 Pulse 67 04/20/18 08:32 Resp 20 04/20/18 08:28 BP 126/83 04/20/18 08:32 Pulse Ox 99 04/20/18 08:28 - Labs Result Diagrams: 04/20/18 07:00 04/20/18 07:00 Labs: Laboratory Results - last 24 hr 04/20/18 04/20/18 07:00 07:00 WBC 5.9 RBC 3.67 L Hgb 10.8 L Hct 32.6 L MCV 88.8 MCH 29.4 MCHC 33.1 RDW 14.6 H Plt Count 152 Sodium 137 Potassium 4.1 Chloride 100 Carbon Dioxide 25 Anion Gap 16 BUN 46 H Creatinine 4.9 H Est GFR ( Amer) 10 Est GFR (Non-Af Amer) 9 Random Glucose 103 Calcium 9.1
--- NOTE | 2018-04-20 10:42 | CP.PCM.PN ---
Subjective - Date & Time of Evaluation Date of Evaluation: 04/20/18 Time of Evaluation: 10:41 - Subjective Subjective: renal s: seen and examined denies n/v o: vs as below gen: nad sclera: anicteric op Clear neck supple cv: +S1+s2 no rub abd: soft no organomegaly lungs cta ext no edema neuro: a+ox3 psych: nml affect skin no rash imp: esrd / hypertensive kidney disease/ hyperkalemia/ anemia of renal disease plan: HD done yesterday continue bp meds k stable hgb at goal Objective - Vital Signs/Intake and Output Vital Signs (last 24 hours): Temp Pulse Resp BP Pulse Ox 97.5 F L 67 20 126/83 99 04/20/18 08:28 04/20/18 08:32 04/20/18 08:28 04/20/18 08:32 04/20/18 08:28 - Medications Medications: Current Medications Acetaminophen (Tylenol 650mg/20.3ml Solution Ud) 650 mg PO Q6 PRN PRN Reason: Pain, Mild (1-3) Last Admin: 04/19/18 19:04 Dose: 650 mg Amlodipine Besylate (Norvasc) 5 mg PO DAILY [facility] Last Admin: 04/20/18 08:33 Dose: 5 mg Atorvastatin Calcium (Lipitor) 20 mg PO DAILY [facility] Last Admin: 04/20/18 08:32 Dose: 20 mg Benzocaine/Menthol (Cepacol Sore Throat) 1 gregory PO Q4 PRN PRN Reason: Sore Throat Last Admin: 04/20/18 01:38 Dose: 1 gregory Labetalol HCl (Trandate) 100 mg PO BID [facility] Last Admin: 04/20/18 08:32 Dose: 100 mg Lisinopril (Zestril) 5 mg PO DAILY [facility] Last Admin: 04/20/18 08:32 Dose: 5 mg Mirtazapine (Remeron) 7.5 mg PO HS [facility] Last Admin: 04/19/18 22:12 Dose: 7.5 mg Morphine Sulfate (Morphine) 4 mg IVP Q4 PRN PRN Reason: Agitation Last Admin: 04/18/18 03:51 Dose: 4 mg Sevelamer HCl (Renagel) 800 mg PO TID [facility] Last Admin: 04/20/18 08:32 Dose: 800 mg Vitamin B Complex/Vit C/Folic Acid (Nephro-Valentino) 1 tab PO DAILY [facility] Last Admin: 04/20/18 08:32 Dose: 1 tab - Labs Labs: 04/20/18 07:00 04/20/18 07:00 PT 9.9 Seconds (9.8-13.1) 04/17/18 10:06 INR 0.9 04/17/18 10:06 APTT 31.3 Seconds (25.6-37.1) 04/17/18 10:06
[2018-04-20] MEDS: Acetaminophen 650mg/20.3ml solution UD PO PRN ×2 (11:14→20:10)
[2018-04-21] MEDS: Benzocaine/Menthol (Cepacol) Lozenge PO PRN ×2 (01:18→14:19)
[2018-04-21] MEDS: Acetaminophen 650mg/20.3ml solution UD PO PRN (02:54)
[2018-04-21 08:10] VITALS: BP 157/68; PULSE 79; RESP 19; TEMP 98; O2SAT 97
[2018-04-21] MEDS: Multivitamin Vitamin B Complex (Nephro-Vite) Tab PO SCH (09:05)
--- NOTE | 2018-04-21 16:01 | CP.PCM.PN ---
Subjective - Date & Time of Evaluation Date of Evaluation: 04/20/18 Time of Evaluation: 11:00 - Subjective Subjective: patient seen and examined at bedside. no acute events overnight. states she feels better than yesterday. denies sob, cough, abdominal pain, chest pain. tolerating po well. Objective - Vital Signs/Intake and Output Vital Signs (last 24 hours): Temp Pulse Resp BP Pulse Ox 98.0 F 79 19 157/68 H 97 04/21/18 08:09 04/21/18 09:06 04/21/18 08:09 04/21/18 09:06 04/21/18 08:09 - Labs Labs: 04/20/18 07:00 04/20/18 07:00 PT 9.9 Seconds (9.8-13.1) 04/17/18 10:06 INR 0.9 04/17/18 10:06 APTT 31.3 Seconds (25.6-37.1) 04/17/18 10:06 - Additional Findings Additional findings: - Constitutional Appears: Non-toxic, No Acute Distress - Head Exam Head Exam: NORMAL INSPECTION - Eye Exam Eye Exam: Normal appearance - Respiratory Exam Respiratory Exam: absent: Wheezes, Respiratory Distress, rales or rhonchi - Cardiovascular Exam Cardiovascular Exam: REGULAR RHYTHM, +S1, +S2 - GI/Abdominal Exam GI & Abdominal Exam: Soft, Normal Bowel Sounds. absent: Tenderness - Extremities Exam Extremities Exam: Normal Inspection. absent: Calf Tenderness, Pedal Edema - Neurological Exam Neurological Exam: Alert, Awake - Psychiatric Exam Psychiatric exam: Normal Affect - Skin Skin Exam: Normal Color, Warm Assessment and Plan - Assessment and Plan (Free Text) Assessment: 77 yo female with pmhx of dementia, ESRD on HD, anxiety, hypercholesterolemia admitted for acute respiratory failure due to fluid overload and missed HD. Recovering well after HD. Plan: -Nephrology consult appreciated- Dr. Benedict -Cardiology consult for hx CHF and elevated proBNP, appreciate recommendations -c/w meds as ordered dispo planning
--- NOTE | 2018-04-21 16:01 | CP.PCM.DIS ---
Provider - Provider Date of Admission: 04/17/18 11:12 Attending physician: Juan Carlos Del Rio MD Time Spent in preparation of Discharge (in minutes): 30 Diagnosis - Discharge Diagnosis (1) Acute pulmonary edema Status: Acute (2) Acute on chronic renal failure Status: Acute Priority: Medium Hospital Course - Lab Results Lab Results: Micro Results 04/19/18 08:29 Naris MRSA Culture (Admit) - Final MRSA NOT DETECTED 04/17/18 10:20 Blood Blood Culture - Preliminary NO GROWTH AFTER 4 DAYS 04/17/18 09:50 Blood Blood Culture - Preliminary NO GROWTH AFTER 4 DAYS 04/17/18 16:43 Nose MRSA Culture (Admit) - Final MRSA NOT DETECTED Most Recent Lab Values WBC 5.9 K/uL (4.8-10.8) 04/20/18 07:00 RBC 3.67 Mil/uL (3.80-5.20) L 04/20/18 07:00 Hgb 10.8 g/dL (12.0-16.0) L 04/20/18 07:00 Hct 32.6 % (34.0-47.0) L 04/20/18 07:00 MCV 88.8 fl (81.0-99.0) 04/20/18 07:00 MCH 29.4 pg (27.0-31.0) 04/20/18 07:00 MCHC 33.1 g/dL (33.0-37.0) 04/20/18 07:00 RDW 14.6 % (11.5-14.5) H 04/20/18 07:00 Plt Count 152 K/uL (130-400) 04/20/18 07:00 MPV 11.1 fl (7.2-11.7) 04/17/18 10:06 Neut % (Auto) 71.8 % (50.0-75.0) 04/17/18 10:06 Lymph % (Auto) 11.8 % (20.0-40.0) L 04/17/18 10:06 [place] % (Auto) 10.9 % (0.0-10.0) H 04/17/18 10:06 Eos % (Auto) 4.4 % (0.0-4.0) H 04/17/18 10:06 Baso % (Auto) 1.1 % (0.0-2.0) 04/17/18 10:06 Neut # (Auto) 5.0 K/uL (1.8-7.0) 04/17/18 10:06 Lymph # (Auto) 0.8 K/uL (1.0-4.3) L 04/17/18 10:06 [place] # (Auto) 0.8 K/uL (0.0-0.8) 04/17/18 10:06 Eos # (Auto) 0.3 K/uL (0.0-0.7) 04/17/18 10:06 Baso # (Auto) 0.1 K/uL (0.0-0.2) 04/17/18 10:06 PT 9.9 Seconds (9.8-13.1) 04/17/18 10:06 INR 0.9 04/17/18 10:06 APTT 31.3 Seconds (25.6-37.1) 04/17/18 10:06 pCO2 41 mm/Hg (35-45) 04/18/18 05:15 pO2 215 mm/Hg (80-100) H 04/18/18 05:15 HCO3 26.4 mmol/L (21-28) 04/18/18 05:15 ABG pH 7.42 (7.35-7.45) 04/18/18 05:15 ABG Total CO2 27.9 mmol/L (22-28) 04/18/18 05:15 ABG O2 Saturation 100.0 % (95-98) H 04/18/18 05:15 ABG O2 Content 14.9 ML/dL (15-23) L 04/18/18 05:15 ABG Base Excess 1.9 mmol/L (-2.0-3.0) 04/18/18 05:15 ABG Hemoglobin 10.6 g/dL (11.7-17.4) L 04/18/18 05:15 ABG Carboxyhemoglobin 1.6 % (0.5-1.5) H 04/18/18 05:15 POC ABG HHb (Measured) 0.0 % (0.0-5.0) 04/18/18 05:15 ABG Methemoglobin 1.6 % (0.0-3.0) 04/18/18 05:15 ABG O2 Capacity 14.9 mL/dL (16-24) L 04/18/18 05:15 Nacho Test Yes 04/18/18 05:15 ABG Potassium 5.8 mmol/L (3.6-5.2) H 04/17/18 12:05 A-a O2 Difference 90.0 mm/Hg 04/18/18 05:15 Hgb O2 Saturation 96.8 % (95.0-98.0) 04/18/18 05:15 Sodium 134.0 mmol/L (132-148) 04/17/18 12:05 Chloride 100.0 mmol/L (98-107) 04/17/18 12:05 Glucose 249 mg/dL (65-105) H 04/17/18 12:05 Lactate 1.6 mmol/L (0.7-2.1) 04/17/18 12:05 Vent Mode A/c 04/18/18 05:15 Mechanical Rate 10 04/18/18 05:15 FiO2 50.0 % 04/18/18 05:15 Tidal Volume 400 04/18/18 05:15 PEEP 5 04/18/18 05:15 Sodium 137 mmol/l (132-148) 04/20/18 07:00 Potassium 4.1 MMOL/L (3.6-5.0) 04/20/18 07:00 Chloride 100 mmol/L (98-107) 04/20/18 07:00 Carbon Dioxide 25 mmol/L (22-30) 04/20/18 07:00 Anion Gap 16 (10-20) 04/20/18 07:00 BUN 46 mg/dl (7-17) H 04/20/18 07:00 Creatinine 4.9 mg/dl (0.7-1.2) H 04/20/18 07:00 Est GFR ( Amer) 10 04/20/18 07:00 Est GFR (Non-Af Amer) 9 04/20/18 07:00 Random Glucose 103 mg/dL (65-105) 04/20/18 07:00 Calcium 9.1 mg/dL (8.4-10.2) 04/20/18 07:00 Phosphorus 4.7 mg/dl (2.5-4.5) H 04/17/18 10:06 Magnesium 2.0 MG/DL (1.6-2.3) 04/17/18 10:06 Total Bilirubin 0.6 mg/dl (0.2-1.3) 04/19/18 04:20 AST 32 U/L (14-36) 04/19/18 04:20 ALT 25 U/L (9-52) 04/19/18 04:20 Alkaline Phosphatase 60 U/L (38-126) 04/19/18 04:20 Troponin I 0.0230 ng/mL (0.00-0.120) 04/17/18 10:06 NT-Pro-B Natriuret Pep 78413 pg/ml (0-900) H 04/17/18 10:06 Total Protein 7.0 G/DL (6.3-8.2) 04/19/18 04:20 Albumin 4.0 g/dL (3.5-5.0) 04/19/18 04:20 Globulin 3.0 gm/dL (2.2-3.9) 04/19/18 04:20 Albumin/Globulin Ratio 1.3 (1.0-2.1) 04/19/18 04:20 Arterial Blood Potassium 5.8 mmol/L (3.6-5.2) H 04/17/18 12:05 Influenza Typ A,B (EIA) Negative for flu a/b (NEGATIVE) 04/17/18 10:06 - Hospital Course Hospital Course: 77 yo female with pmhx of dementia, ESRD on HD, anxiety, hypercholesterolemia admitted 04/17/18 for acute respiratory failure due to fluid overload/acute pulmonary edema due to missed HD. Patient has history of noncompliance. Patient was intubated for airway protection and pulse ox of 60. Patient self extubated next day, without apparent complications. Patient was seen by nephrology and cardiology. HD was given as scheduled. Patient improved throughout admission and was discharged in stable condition. Discharge Exam - Head Exam Head Exam: NORMAL INSPECTION - Eye Exam Eye Exam: Normal appearance - Respiratory Exam Respiratory Exam: UNREMARKABLE - Cardiovascular Exam Cardiovascular Exam: REGULAR RHYTHM, +S1, +S2 - GI/Abdominal Exam GI & Abdominal Exam: Unremarkable - Extremities Exam Extremities exam: normal inspection - Neurological Exam Neurological exam: Alert, Oriented x3 - Psychiatric Exam Psychiatric exam: Normal Affect, Normal Mood - Skin Skin Exam: Normal Color, Warm Discharge Plan - Follow Up Plan Condition: STABLE Disposition: HOME/ ROUTINE Instructions: Heart Failure, Adult (DC), Hyperkalemia (DC), Chronic Kidney Disease (DC) Additional Instructions: Hemodialysis schedule Sunday and . Monitor weight daily. patient to follow up with PCP this week. patient to follow up with cardiology this week. Referrals: Deniz Shah MD [Staff Provider] - Fredis Benedict MD [Staff Provider] - Luke Leon MD [Medical Doctor] -
[2018-04-22 08:24] LABS: HEPATITIS B SURFACE AG Negative (NEGATIVE)
[2018-04-22 08:29] LABS: HEPATITIS B CORE AB NEGATIVE (NEGATIVE)
== END 2018-04-21 14:30 | disposition home or self-care (01) | DRG 208 ==
LOC: H.ER 09:08 → H.ERHOLD 11:12 → H.ICU/CCU 12:54 → H.MEDSURG1 04-19 16:50
PROVIDERS: ADMIT Family Medicine; ATTEND Family Medicine
PROC: 0BH17EZ Insertion of Endotracheal Airway into Trachea, Via Natural or Artificial Opening (ICD-10-PCS; principal; 2018-04-17)
PROC: 5A1945Z Respiratory Ventilation, 24-96 Consecutive Hours (ICD-10-PCS; 2018-04-17)
PROC: 5A1D70Z Performance of Urinary Filtration, Intermittent, Less than 6 Hours Per Day (ICD-10-PCS; 2018-04-17)
PROC: 5A1D70Z Performance of Urinary Filtration, Intermittent, Less than 6 Hours Per Day (ICD-10-PCS; 2018-04-18)
DX: J96.01 Acute respiratory failure with hypoxia (principal); N18.6 End stage renal disease; I50.23 Acute on chronic systolic (congestive) heart failure; I13.2 Hypertensive heart and chronic kidney disease with heart failure and with stage 5 chronic kidney disease, or end stage renal disease; N17.9 Acute kidney failure, unspecified; N25.81 Secondary hyperparathyroidism of renal origin; D63.1 Anemia in chronic kidney disease; Z99.2 Dependence on renal dialysis; Z91.15 Patient's noncompliance with renal dialysis; E78.00 Pure hypercholesterolemia, unspecified; E87.5 Hyperkalemia; F02.80 Dementia in other diseases classified elsewhere, unspecified severity, without behavioral disturbance, psychotic disturbance, mood disturbance, and anxiety; G30.9 Alzheimer's disease, unspecified; I25.10 Atherosclerotic heart disease of native coronary artery without angina pectoris; I35.0 Nonrheumatic aortic (valve) stenosis; J44.9 Chronic obstructive pulmonary disease, unspecified; Z82.49 Family history of ischemic heart disease and other diseases of the circulatory system; Z87.01 Personal history of pneumonia (recurrent); Z91.19 Patient's noncompliance with other medical treatment and regimen; E21.3 Hyperparathyroidism, unspecified; F41.9 Anxiety disorder, unspecified; K59.00 Constipation, unspecified; Z79.899 Other long term (current) drug therapy; J02.9 Acute pharyngitis, unspecified

== ENCOUNTER 2018-04-22 10:28 | Inpatient (IN) | payer MEDICARE ==
[2018-04-22 10:34] VITALS: BMI 19.5
--- NOTE | 2018-04-22 12:17 | CT ---
Date of service: 04/22/2018 PROCEDURE: CT Abdomen and Pelvis without intravenous contrast HISTORY: Left-sided abdominal pain. COMPARISON: 03/22/2018 CT abdomen and pelvis 09/10/2012 CT abdomen and pelvis TECHNIQUE: Unenhanced. Neither IV nor oral contrast administered Radiation dose: Total exam DLP = 358.96 mGy-cm. This CT exam was performed using one or more of the following dose reduction techniques: Automated exposure control, adjustment of the mA and/or kV according to patient size, and/or use of iterative reconstruction technique. FINDINGS: LOWER THORAX: Resolution of small pleural effusions and compressive atelectasis lower/visualized lung christianson. Stable aneurysmal dilatation distal thoracic aorta 4 x 4.4 cm. LIVER: Unremarkable. No gross lesion or ductal dilatation. Incidental finding(s): Simple cyst right hepatic lobe 1.4 x 2.2 cm unchanged. GALLBLADDER AND BILE DUCTS: Distended gallbladder without gallstones or other significant findings. PANCREAS: Unremarkable. No gross lesion or ductal dilatation. SPLEEN: Unremarkable. ADRENALS: Unremarkable. No mass. KIDNEYS AND URETERS: Unremarkable. No hydronephrosis. No solid mass. Left kidney: Stable exophytic cyst lower pole 4.8 x 5.9 cm. VASCULATURE: Unremarkable. No aortic aneurysm. BOWEL: Markedly distended stomach with large air-fluid level. APPENDIX: No abnormalities to suggest acute appendicitis. No right lower quadrant inflammatory processes identified. PERITONEUM: Unremarkable. No free fluid. No free air. LYMPH NODES: Unremarkable. No enlarged lymph nodes. BLADDER: Unremarkable. REPRODUCTIVE: Prior hysterectomy. BONES: No acute fracture. OTHER FINDINGS: None. IMPRESSION: No acute findings related to/accounting for the clinical presentation. Additional benign and/or incidental findings described above. No significant interval change compared to the prior examination(s).
--- NOTE | 2018-04-22 12:31 | CT ---
Date of service: 04/22/2018 PROCEDURE: CT NECK WITHOUT CONTRAST HISTORY: Throat pain s/p intubation COMPARISON: 04/18/2018 single-view chest demonstrating would or tracheal tube in satisfactory position. TECHNIQUE: CT of the neck without intravenous contrast. Coronal and sagittal reformats generated. Radiation dose: DLP mGy-cm This CT exam was performed using one or more of the following dose reduction techniques: Automated exposure control, adjustment of the mA and/or kV according to patient size, and/or use of iterative reconstruction technique. FINDINGS: NASOPHARYNX: Unremarkable. SUPRAHYOID NECK: Unremarkable oropharynx, oral cavity, parapharyngeal space and retropharyngeal space. INFRAHYOID NECK: There appears to be a component of laryngeal edema to clearly the right vocal cord compared to the left. This be categorized as moderate. MASS: None. GLANDS: Parotid and submandibular glands unremarkable. Normal size thyroid gland, without nodule. LYMPH NODES: Normal. No lymphadenopathy. CERVICAL SPINE: Multilevel cervical spondylotic changes C5-6, C6-7 and cervicothoracic junction. OTHER FINDINGS: Dilated esophagus with air-fluid level incompletely visualized. IMPRESSION: Laryngeal/vocal cord edema right greater than left. No abnormal masses identified. Dilated cervical esophagus more distal extent is not seen.
[2018-04-22 13:06] LABS: BASO % 0.5 % (0.0-2.0); EOS # 0.3 K/uL (0.0-0.7); LYMPH % 11.4 % (20.0-40.0); MEAN CORPUSCULAR HEMOGLOBIN 29.1 pg (27.0-31.0); MEAN CORPUSCULAR HGB CONC 32.7 g/dL (33.0-37.0); MEAN PLATELET VOLUME 10.5 fl (7.2-11.7); MONO # 1.1 K/uL (0.0-0.8); MONO % 13.3 % (0.0-10.0); NEUT % 70.8 % (50.0-75.0); RBC 4.11 Mil/uL (3.80-5.20); RED CELL DISTRIBUTION WIDTH 15.2 % (11.5-14.5); WHITE BLOOD COUNT 8.5 K/uL (4.8-10.8)
[2018-04-22 13:23] LABS: ALB/GLOB RATIO 1.4 (1.0-2.1); ALBUMIN 4.4 g/dL (3.5-5.0); CALCIUM 9.7 mg/dL (8.4-10.2)
[2018-04-22 13:33] LABS: TROPONIN I 0.015 ng/mL (0.00-0.120)
[2018-04-22 13:57] LABS: INR 0.9
[2018-04-22 14:00] LABS: PARTIAL THROMBOPLASTIN TIME 27.8 Seconds (25.6-37.1)
--- NOTE | 2018-04-22 14:07 | ED PDOC ---
HPI: Abdomen Time Seen by Provider: 04/22/18 11:16 Chief Complaint (Nursing): GI Problem Chief Complaint (Provider): Abdominal Pain History Per: Patient History/Exam Limitations: no limitations Onset/Duration Of Symptoms: Days (3) Location Of Pain/Discomfort: LLQ Additional Complaint(s): 77 years old female presents to ER for evaluation of throat pain and hoarse voice since discharge from the hospital yesterday. Patient was discharged yesterday after being admitted for fluid overload. Patient was intubated secondary to fluid overload and self-extubated the next day. Pt due for dialysis today. PMD: Dr. Dmuont from [place] Past Medical History Reviewed: Historical Data, Nursing Documentation, Vital Signs Vital Signs: Last Vital Signs Temp 97.7 F 04/22/18 10:35 Pulse 72 04/22/18 10:35 Resp 17 04/22/18 10:35 BP 136/61 04/22/18 10:35 Pulse Ox 96 04/22/18 10:35 - Medical History PMH: Alzheimer's Disease, Anemia, Anxiety, CHF, Dementia, HTN, Hypercholesterolemia, Pneumonia, End Stage Renal Disease, Chronic Kidney Disease Denies: Arthritis, Asthma, Atrial Fibrillation, Bipolar Disorder, Bronchitis, CAD, Cardia Arrhythmia, COPD, Crohn's Disease, Depression, Diverticulitis, Emphysema, Fractures, Gastritis, Gall Bladder Disease, HIV, Hyperthyroidism, Hypothyroidism, Kidney Stones, Migraine, Mitral Valve Prolapse, Multiple Sclerosis, Osteoporosis, Pancreatitis, Paranoia, Parkinson's Disease, Peripheral Edema, Post Traumatic Stress Disorder, Pulmonary Embolism, Rheumatoid Arthritis, Schizophrenia, Seizures, Sickle Cell Disease, Sexually Transmitted Disease, Sleep Apnea, TIA - Surgical History Surgical History: Appendectomy, Tonsillectomy Denies: CABG, Carotid Endarterectomy, Cholecystectomy, Coronary Stent, Pacemaker - Family History Family History: States: Unknown Family Hx, Hypertension - Social History Current smoker - smoking cessation education provided: No Alcohol: None Drugs: Denies - Immunization History Hx Tetanus Toxoid Vaccination: No Hx Influenza Vaccination: No Hx Pneumococcal Vaccination: No - Home Medications Home Medications: Ambulatory Orders Medication Instructions Recorded Atorvastatin [Lipitor] 20 mg PO DAILY 08/16/16 Labetalol [Trandate] 100 mg PO BID 08/16/16 amLODIPine [Norvasc] 5 mg PO DAILY 08/16/16 Calcium Carbonate [Oscal] 500 mg PO TID 10/16/17 Lisinopril [Zestril] 5 mg PO DAILY 01/24/18 Mirtazapine [Remeron] 7.5 mg PO HS tab 02/22/18 Vitamin B Complex/Vit C/Folic 1 tab PO DAILY tab 04/01/18 [Nephro-Valentino] - Allergies Allergies/Adverse Reactions: Allergies Allergy/AdvReac Type Severity Reaction Status Date / Time No Known Allergies Allergy Verified 04/22/18 12:04 Review of Systems ROS Statement: Except As Marked, All Systems Reviewed And Found Negative ENT: Positive for: Throat Pain Gastrointestinal: Positive for: Vomiting, Abdominal Pain Physical Exam - Reviewed Nursing Documentation Reviewed: Yes Vital Signs Reviewed: Yes - Physical Exam Appears: Positive for: Non-toxic, No Acute Distress Head Exam: Positive for: ATRAUMATIC Skin: Positive for: Normal Color, Warm, Dry ENT: Positive for: Pharynx Is (Clear, no drooling). Negative for: Pharyngeal Erythema, Tonsillar Exudate, Tonsillar Swelling, Other (Drooling) Neck: Positive for: Normal, Painless ROM, Supple Cardiovascular/Chest: Positive for: Regular Rate, Rhythm. Negative for: Murmur Respiratory: Positive for: Normal Breath Sounds. Negative for: Wheezing Gastrointestinal/Abdominal: Positive for: Bowel Sounds, Soft, Tenderness (LLQ). Negative for: Guarding, Rebound Back: Positive for: Normal Inspection. Negative for: L CVA Tenderness Extremity: Positive for: Normal ROM. Negative for: Pedal Edema, Swelling Neurologic/Psych: Positive for: Alert, Oriented (x3). Negative for: Facial Droop - Laboratory Results Result Diagrams: 04/22/18 12:50 04/22/18 16:00 - ECG O2 Sat by Pulse Oximetry: 96 (RA) Pulse Ox Interpretation: Normal Medical Decision Making Medical Decision Making: Time: 1129 Initial Impression: abdominal pain and throat pain after intubation. Initial Plan: --Labs --CT Abd/Pelvis --Neck soft tissue CT --EKG --Zofran [address] Abd/Pelvis FINDINGS: LOWER THORAX: Resolution of small pleural effusions and compressive atelectasis lower/visualized lung christianson. Stable aneurysmal dilatation distal thoracic aorta 4 x 4.4 cm. LIVER: Unremarkable. No gross lesion or ductal dilatation. Incidental finding(s): Simple cyst right hepatic lobe 1.4 x 2.2 cm unchanged. GALLBLADDER AND BILE DUCTS: Distended gallbladder without gallstones or other significant findings. PANCREAS: Unremarkable. No gross lesion or ductal dilatation. SPLEEN: Unremarkable. ADRENALS: Unremarkable. No mass. KIDNEYS AND URETERS: Unremarkable. No hydronephrosis. No solid mass. Left kidney: Stable exophytic cyst lower pole 4.8 x 5.9 cm. VASCULATURE: Unremarkable. No aortic aneurysm. BOWEL: Markedly distended stomach with large air-fluid level. APPENDIX: No abnormalities to suggest acute appendicitis. No right lower quadrant inflammatory processes identified. PERITONEUM: Unremarkable. No free fluid. No free air. LYMPH NODES: Unremarkable. No enlarged lymph nodes. BLADDER: Unremarkable. REPRODUCTIVE: Prior hysterectomy. BONES: No acute fracture. OTHER FINDINGS: None. IMPRESSION: No acute findings related to/accounting for the clinical presentation. Additional benign and/or incidental findings described above. No significant interval change compared to the prior examination(s). [address] FINDINGS: NASOPHARYNX: Unremarkable. SUPRAHYOID NECK: Unremarkable oropharynx, oral cavity, parapharyngeal space and retropharyngeal space. INFRAHYOID NECK: There appears to be a component of laryngeal edema to clearly the right vocal cord compared to the left. This be categorized as moderate. MASS: None. GLANDS: Parotid and submandibular glands unremarkable. Normal size thyroid gland, without nodule. LYMPH NODES: Normal. No lymphadenopathy. CERVICAL SPINE: Multilevel cervical spondylotic changes C5-6, C6-7 and cervicothoracic junction. OTHER FINDINGS: Dilated esophagus with air-fluid level incompletely visualized. IMPRESSION: Laryngeal/vocal cord edema right greater than left. No abnormal masses identified. Dilated cervical esophagus more distal extent is not seen. 14:[address] Lyle, recommends Decadron 10 mg IV q8h X 3 doses and Clindamycin, admit to monitored floor. 16:[address] Benedict, will dialyze tomorrow. Scribe Attestation: Documented by Cari Henderson, acting as a scribe for Laura Arnold MD. Provider Scribe Attestation: All medical record entries made by the Scribe were at my direction and pe rsonally dictated by me. I have reviewed the chart and agree that the record accurately reflects my personal performance of the history, physical exam, medical decision making, and the department course for this patient. I have also personally directed, reviewed, and agree with the discharge instructions and disposition. Disposition - Clinical Impression Clinical Impression: Laryngeal edema, Vocal cord edema - Patient ED Disposition Is Patient to be Admitted: Yes - Disposition Disposition Time: 15:15 Condition: GUARDED - Pt Status Changed To: Hospital Disposition Of: Inpatient - Admit Certification Admit to Inpatient:: After my assessment, the patient will require hospitalization for at least two midnights. This is because of the severity of symptoms shown, intensity of services needed, and/or the medical risk in this patient being treated as an outpatient. - POA Present On Arrival: None
[2018-04-22] MEDS ORDERED: Dexamethasone 10 MG in Sodium Chloride 0.9% 50 ML IVPB STA (14:46)
[2018-04-22] MEDS ORDERED: Clindamycin 600mg/50ml NS 600 MG/50 ML BAG IVPB STA (14:47)
[2018-04-22] MEDS ORDERED: Clindamycin 600mg/50ml D5W 600 MG/50 ML VIAL IVPB STA (14:59)
--- NOTE | 2018-04-22 18:29 | RAD ---
Date of service: 04/22/2018 HISTORY: Throat pain COMPARISON: 04/18/2018. Single view chest. FINDINGS: LUNGS: No active pulmonary disease. PLEURA: No significant pleural effusion identified, no pneumothorax apparent. CARDIOVASCULAR: No radiographic findings to suggest acute or significant cardiovascular disease. Incidental calcification within the mitral valve annulus common normal variant. OSSEOUS STRUCTURES: No significant abnormalities. VISUALIZED UPPER ABDOMEN: Normal. OTHER FINDINGS: Removal of support apparatus since the prior study: Patient has been extubated in the interim. IMPRESSION: No active disease. No significant interval change compared to the prior examination(s). Concordant results with the preliminary interpretation rendered by the emergency department physician procedure.
[2018-04-22] MEDS ORDERED: Dexamethasone 10 MG in Sodium Chloride 0.9% 50 ML IVPB SCH (23:00)
[2018-04-23 05:32] LABS: BASO % 0.2 % (0.0-2.0); LYMPH # 0.3 K/uL (1.0-4.3); LYMPH % 11.1 % (20.0-40.0); MEAN CELL VOLUME 88.3 fl (81.0-99.0); MEAN CORPUSCULAR HGB CONC 32.9 g/dL (33.0-37.0); MEAN PLATELET VOLUME 10.7 fl (7.2-11.7); MONO % 1.6 % (0.0-10.0); NEUT # 2.6 K/uL (1.8-7.0); NEUT % 87.1 % (50.0-75.0); RBC 3.44 Mil/uL (3.80-5.20); RED CELL DISTRIBUTION WIDTH 14.7 % (11.5-14.5)
[2018-04-23 06:32] LABS: ALB/GLOB RATIO 1.4 (1.0-2.1)
[2018-04-23 08:30] VITALS: RESP 20
[2018-04-23] MEDS: Multivitamin Vitamin B Complex (Nephro-Vite) Tab PO SCH (08:49)
--- NOTE | 2018-04-23 10:06 | CP.PCM.HP ---
History of Present Illness - History of Present Illness History of Present Illness: 77 yo female with pmhx of dementia, ESRD on HD, anxiety, hypercholesterolemia presents to [facility] ED yesterday with c/o throat pain and hoarse voice. Patient had CT of soft tissue of the neck which showed laryngeal and vocal cord edema (R>L) and admitted for medical management. Of note, patient was admitted on 04/17/18 for acute respiratory failure due to fluid overload/acute pulmonary edema due to missed HD. Patient has history of noncompliance. Patient was intubated on 04/17/18 for airway protection. Patient self extubated next day, without apparent complications. She was discharged home on 04/21/18. ROS: all 12 systems reviewed and negative except as mentioned in HPI PMD: Dr. Genaro Martínez [employer] Operator: Dr. Benedict PMHx: Alzheimers/dementia, ESRD (on HD), anemia, anxiety and hypercholesterolemia SurgHx: appendectomy, tonsillectomy FMHx: HTN SocHx: denies tobacco, Etoh or drugs Allergies: NKDA Medications: at home included Xanax, Lipitor, Norvasc, Lipitor, Zestril, Trandate, Remeron, Oscal. ED course: CT A/P: unremarkable CT of sof tissue of neck: IMPRESSION: Laryngeal/vocal cord edema right greater than left. No abnormal masses identified. Dilated cervical esophagus more distal extent is not seen. ENT Dr. Lyle was consulted and recommened Decadron 10 mg IV q8h X 3 doses and Clindamycin. Patient received one dose of decadron and clindamycin 600 mg IV. Present on Admission - Present on Admission Any Indicators Present on Admission: No Review of Systems - Review of Systems All systems: reviewed and no additional remarkable complaints except Past Patient History - Infectious Disease Hx of Infectious Diseases: None - Tetanus Immunizations Tetanus Immunization: Unknown - Past Medical History & Family History Past Medical History?: Yes - Past Social History Smoking Status: Never Smoked - CARDIAC Hx Cardiac Disorders: Yes - PULMONARY Hx Respiratory Disorders: Yes - NEUROLOGICAL Hx Neurological Disorder: Yes - HEENT Hx HEENT Problems: No - RENAL Hx Chronic Kidney Disease: Yes - ENDOCRINE/METABOLIC Hx Endocrine Disorders: No - HEMATOLOGICAL/ONCOLOGICAL Hx Blood Disorders: Yes - INTEGUMENTARY Hx Dermatological Problems: No - MUSCULOSKELETAL/RHEUMATOLOGICAL Hx Musculoskeletal Disorders: No Hx Falls: Yes - GASTROINTESTINAL Hx Crohn's Disease: No Hx Diverticulitis: No Hx Gall Bladder Disease: No Hx Gastritis: No Hx Pancreatitis: No - GENITOURINARY/GYNECOLOGICAL Hx Genitourinary Disorders: Yes - PSYCHIATRIC Hx Psychophysiologic Disorder: Yes Hx Substance Use: No - SURGICAL HISTORY Hx Appendectomy: Yes Hx Carotid Endarterectomy: No Hx Cholecystectomy: No Hx Coronary Artery Bypass Graft: No Hx Coronary Stent: No Hx Tonsillectomy: Yes - ANESTHESIA Hx Anesthesia: Yes Hx Anesthesia Reactions: No Hx Malignant Hyperthermia: No Meds Allergies/Adverse Reactions: Allergies Allergy/AdvReac Type Severity Reaction Status Date / Time No Known Allergies Allergy Verified 04/22/18 12:04 Physical Exam - Constitutional Appears: Non-toxic, No Acute Distress - Head Exam Head Exam: ATRAUMATIC, NORMAL INSPECTION - Eye Exam Eye Exam: EOMI, Normal appearance - ENT Exam ENT Exam: Mucous Membranes Moist - Respiratory Exam Respiratory Exam: Clear to Auscultation Bilateral, NORMAL BREATHING PATTERN. absent: Rhonchi, Wheezes, Respiratory Distress - Cardiovascular Exam Cardiovascular Exam: REGULAR RHYTHM, +S1, +S2 - GI/Abdominal Exam GI & Abdominal Exam: Normal Bowel Sounds, Soft. absent: Tenderness - Neurological Exam Neurological exam: Alert, Oriented x3 - Psychiatric Exam Psychiatric exam: Normal Affect, Normal Mood - Skin Skin Exam: Normal Color, Warm Results - Vital Signs Recent Vital Signs: Last Vital Signs Temp 98.1 F 04/23/18 08:29 Pulse 74 04/23/18 08:29 Resp 20 04/23/18 08:29 BP 150/66 04/23/18 08:29 Pulse Ox 97 04/23/18 08:29 - Labs Result Diagrams: 04/23/18 04:15 04/23/18 04:15 Labs: Laboratory Results - last 24 hr 04/22/18 04/22/18 04/22/18 12:50 12:50 12:50 WBC 8.5 RBC 4.11 Hgb 12.0 Hct 36.6 MCV 89.0 MCH 29.1 MCHC 32.7 L RDW 15.2 H Plt Count 177 MPV 10.5 Neut % (Auto) 70.8 Lymph % (Auto) 11.4 L [place] % (Auto) 13.3 H Eos % (Auto) 4.0 Baso % (Auto) 0.5 Neut # (Auto) 6.0 Lymph # (Auto) 1.0 [place] # (Auto) 1.1 H Eos # (Auto) 0.3 Baso # (Auto) 0.0 PT 10.0 INR 0.9 APTT 27.8 Sodium 134 Potassium 5.4 H Chloride 93 L Carbon Dioxide 24 Anion Gap 22 H BUN 70 H Creatinine 5.8 H Est GFR ( Amer) 9 Est GFR (Non-Af Amer) 7 POC Glucose (mg/dL) Random Glucose 117 H Calcium 9.7 Total Bilirubin 0.8 AST 35 ALT 18 Alkaline Phosphatase 66 Troponin I 0.0150 Total Protein 7.6 Albumin 4.4 Globulin 3.2 Albumin/Globulin Ratio 1.4 Lipase 210 04/22/18 04/22/18 04/23/18 15:09 16:00 04:15 WBC 3.0 L D RBC 3.44 L Hgb 10.0 L D Hct 30.3 L MCV 88.3 MCH 29.0 MCHC 32.9 L RDW 14.7 H Plt Count 185 MPV 10.7 Neut % (Auto) 87.1 H Lymph % (Auto) 11.1 L [place] % (Auto) 1.6 Eos % (Auto) 0.0 Baso % (Auto) 0.2 Neut # (Auto) 2.6 Lymph # (Auto) 0.3 L [place] # (Auto) 0.0 Eos # (Auto) 0.0 Baso # (Auto) 0.0 PT INR APTT Sodium Potassium 4.6 Chloride Carbon Dioxide Anion Gap BUN Creatinine Est GFR ( Amer) Est GFR (Non-Af Amer) POC Glucose (mg/dL) 125 H Random Glucose Calcium Total Bilirubin AST ALT Alkaline Phosphatase Troponin I Total Protein Albumin Globulin Albumin/Globulin Ratio Lipase 04/23/18 04:15 WBC RBC Hgb Hct MCV MCH MCHC RDW Plt Count MPV Neut % (Auto) Lymph % (Auto) [place] % (Auto) Eos % (Auto) Baso % (Auto) Neut # (Auto) Lymph # (Auto) [place] # (Auto) Eos # (Auto) Baso # (Auto) PT INR APTT Sodium 131 L Potassium 6.1 H Chloride 93 L Carbon Dioxide 20 L Anion Gap 24 H BUN 78 H Creatinine 6.2 H Est GFR ( Amer) 8 Est GFR (Non-Af Amer) 7 POC Glucose (mg/dL) Random Glucose 138 H Calcium 9.0 Total Bilirubin 0.5 AST 21 ALT 20 Alkaline Phosphatase 63 Troponin I Total Protein 6.9 Albumin 4.0 Globulin 2.9 Albumin/Globulin Ratio 1.4 Lipase Assessment & Plan - Assessment and Plan (Free Text) Assessment: 77 yo female with pmhx of dementia, ESRD on HD, anxiety, hypercholesterolemia admitted for laryngeal and vocal cord edema s/p intubation on 04/17/18 and self extubation on 04/18/18. Plan: ENT consult: Dr. Lyle, consult appreciated. Continue with decadron and clindamycin Nephrology consult: Dr. Benedict, consult appreciated. HD today. Rest of the plan as ordered. Patient seen, examined and plan discussed with Dr. Edward Valerio, pgy-2
--- NOTE | 2018-04-23 11:22 | CP.PCM.CON ---
History of Present Illness - History of Present Illness History of Present Illness: patient is a 77 years of age female reported to the emergency room with sore throat with hoarseness of the voice patient was just discharged 2 days ago with a status post intubation for respiratory failure and volume overloaded hyperka lemia. Patient readmitted again. Because she did not go for regular dialysis and she keep coming back to the emergency room was volume overloaded hyperkalemia and not going to dialysis as outpatient Past medical history Recurrent admission just about weekly because she is missing dialysis as outpati ent patient has dementia Patient does not remember the time or the day or the month Hypertension End stage renal disease on maintenance hemodialysis that she is not going as outpatient social history not contributory as noted on so many previous admission Review of Systems - Review of Systems Systems not reviewed;Unavailable: Respiratory Distress - Constitutional Constitutional: Anorexia. absent: Chills - EENT Eyes: Dry Eye. absent: Exophthalmos Nose/Mouth/Throat: absent: Epistaxis - Cardiovascular Cardiovascular: Dyspnea on Exertion, Pedal Edema. absent: Chest Pain, Dyspnea, Edema - Respiratory Respiratory: Cough, Dyspnea on Exertion, Chest Congestion. absent: Hemoptysis - Gastrointestinal Gastrointestinal: Abdominal Pain. absent: Vomiting - Genitourinary Genitourinary: Nocturia - Musculoskeletal Musculoskeletal: Muscle Weakness. absent: Abnormal Gait - Neurological Neurological: Abnormal Gait - Endocrine Endocrine: Fatigue - Hematologic/Lymphatic Hematologic: absent: Easy Bleeding Past Patient History - Infectious Disease Hx of Infectious Diseases: None - Tetanus Immunizations Tetanus Immunization: Unknown - Past Medical History & Family History Past Medical History?: Yes - Past Social History Smoking Status: Never Smoked - CARDIAC Hx Cardiac Disorders: Yes - PULMONARY Hx Respiratory Disorders: Yes - NEUROLOGICAL Hx Neurological Disorder: Yes - HEENT Hx HEENT Problems: No - RENAL Hx Chronic Kidney Disease: Yes - ENDOCRINE/METABOLIC Hx Endocrine Disorders: No - HEMATOLOGICAL/ONCOLOGICAL Hx Blood Disorders: Yes - INTEGUMENTARY Hx Dermatological Problems: No - MUSCULOSKELETAL/RHEUMATOLOGICAL Hx Musculoskeletal Disorders: No Hx Falls: Yes - GASTROINTESTINAL Hx Crohn's Disease: No Hx Diverticulitis: No Hx Gall Bladder Disease: No Hx Gastritis: No Hx Pancreatitis: No - GENITOURINARY/GYNECOLOGICAL Hx Genitourinary Disorders: Yes - PSYCHIATRIC Hx Psychophysiologic Disorder: Yes Hx Substance Use: No - SURGICAL HISTORY Hx Appendectomy: Yes Hx Carotid Endarterectomy: No Hx Cholecystectomy: No Hx Coronary Artery Bypass Graft: No Hx Coronary Stent: No Hx Tonsillectomy: Yes - ANESTHESIA Hx Anesthesia: Yes Hx Anesthesia Reactions: No Hx Malignant Hyperthermia: No Meds Allergies/Adverse Reactions: Allergies Allergy/AdvReac Type Severity Reaction Status Date / Time No Known Allergies Allergy Verified 04/22/18 12:04 - Medications Medications: Current Medications Amlodipine Besylate (Norvasc) 5 mg PO DAILY [facility] Last Admin: 04/23/18 10:06 Dose: Not Given Atorvastatin Calcium (Lipitor) 20 mg PO DAILY [facility] Last Admin: 04/23/18 08:48 Dose: 20 mg Calcium Carbonate (Oscal) 500 mg PO TID [facility] Last Admin: 04/23/18 08:49 Dose: 500 mg Dexamethasone (Decadron Inj) 10 mg IV Q12@0700,2300 [facility] Stop: 04/23/20 23:01 Clindamycin Phosphate (Cleocin 600mg/50ml Ns) 600 mg in 50 mls @ 100 mls/hr IVPB Q8 [facility]; Protocol Labetalol HCl (Trandate) 100 mg PO BID [facility] Last Admin: 04/23/18 10:06 Dose: Not Given Lisinopril (Zestril) 5 mg PO DAILY [facility] Last Admin: 04/23/18 10:06 Dose: Not Given Mirtazapine (Remeron) 7.5 mg PO [facility] Saccharomyces Boulardii (Florastor) 250 mg PO BID [facility] Vitamin B Complex/Vit C/Folic Acid (Nephro-Valentino) 1 tab PO DAILY [facility] Last Admin: 04/23/18 08:49 Dose: 1 tab Physical Exam - Constitutional Appears: No Acute Distress - Eye Exam Eye Exam: Conjunctival injection - ENT Exam ENT Exam: Mucous Membranes Moist - Neck Exam Neck exam: Negative for: Lymphadenopathy - Respiratory Exam Respiratory Exam: Rales, Rhonchi, Wheezes - Cardiovascular Exam Cardiovascular Exam: JVD. absent: Gallop, Rubs - GI/Abdominal Exam GI & Abdominal Exam: Normal Bowel Sounds. absent: Guarding - Extremities Exam Extremities exam: Negative for: calf tenderness - Back Exam Back exam: absent: CVA tenderness (L), CVA tenderness (R) - Neurological Exam Neurological exam: Altered - Psychiatric Exam Psychiatric exam: Anxious Results - Vital Signs Recent Vital Signs: Last Vital Signs Temp 98.1 F 04/23/18 09:00 Pulse 74 04/23/18 10:06 Resp 20 04/23/18 09:00 BP 150/66 04/23/18 10:06 Pulse Ox 97 04/23/18 09:00 - Labs Result Diagrams: 04/23/18 04:15 04/23/18 04:15 Labs: Laboratory Results - last 24 hr 04/22/18 04/22/18 04/22/18 12:50 12:50 12:50 WBC 8.5 RBC 4.11 Hgb 12.0 Hct 36.6 MCV 89.0 MCH 29.1 MCHC 32.7 L RDW 15.2 H Plt Count 177 MPV 10.5 Neut % (Auto) 70.8 Lymph % (Auto) 11.4 L [place] % (Auto) 13.3 H Eos % (Auto) 4.0 Baso % (Auto) 0.5 Neut # (Auto) 6.0 Lymph # (Auto) 1.0 [place] # (Auto) 1.1 H Eos # (Auto) 0.3 Baso # (Auto) 0.0 PT 10.0 INR 0.9 APTT 27.8 Sodium 134 Potassium 5.4 H Chloride 93 L Carbon Dioxide 24 Anion Gap 22 H BUN 70 H Creatinine 5.8 H Est GFR ( Amer) 9 Est GFR (Non-Af Amer) 7 POC Glucose (mg/dL) Random Glucose 117 H Calcium 9.7 Total Bilirubin 0.8 AST 35 ALT 18 Alkaline Phosphatase 66 Troponin I 0.0150 Total Protein 7.6 Albumin 4.4 Globulin 3.2 Albumin/Globulin Ratio 1.4 Lipase 210 04/22/18 04/22/18 04/23/18 15:09 16:00 04:15 WBC 3.0 L D RBC 3.44 L Hgb 10.0 L D Hct 30.3 L MCV 88.3 MCH 29.0 MCHC 32.9 L RDW 14.7 H Plt Count 185 MPV 10.7 Neut % (Auto) 87.1 H Lymph % (Auto) 11.1 L [place] % (Auto) 1.6 Eos % (Auto) 0.0 Baso % (Auto) 0.2 Neut # (Auto) 2.6 Lymph # (Auto) 0.3 L [place] # (Auto) 0.0 Eos # (Auto) 0.0 Baso # (Auto) 0.0 PT INR APTT Sodium Potassium 4.6 Chloride Carbon Dioxide Anion Gap BUN Creatinine Est GFR ( Amer) Est GFR (Non-Af Amer) POC Glucose (mg/dL) 125 H Random Glucose Calcium Total Bilirubin AST ALT Alkaline Phosphatase Troponin I Total Protein Albumin Globulin Albumin/Globulin Ratio Lipase 04/23/18 04:15 WBC RBC Hgb Hct MCV MCH MCHC RDW Plt Count MPV Neut % (Auto) Lymph % (Auto) [place] % (Auto) Eos % (Auto) Baso % (Auto) Neut # (Auto) Lymph # (Auto) [place] # (Auto) Eos # (Auto) Baso # (Auto) PT INR APTT Sodium 131 L Potassium 6.1 H Chloride 93 L Carbon Dioxide 20 L Anion Gap 24 H BUN 78 H Creatinine 6.2 H Est GFR ( Amer) 8 Est GFR (Non-Af Amer) 7 POC Glucose (mg/dL) Random Glucose 138 H Calcium 9.0 Total Bilirubin 0.5 AST 21 ALT 20 Alkaline Phosphatase 63 Troponin I Total Protein 6.9 Albumin 4.0 Globulin 2.9 Albumin/Globulin Ratio 1.4 Lipase Assessment & Plan (1) Chronic kidney disease with end stage renal failure on dialysis Assessment and Plan: end stage renal disease Patient need dialysis as soon as possible because of the hyperkalemia Hyperkalemia patient scheduled to have dialysis shortly Volume overloaded Hypertension history Hyperphosphatemia history Secondary hyperparathyroidism history Anemia history Plan Hemodialysis as soon as possible Order was given consent was taken Continue with the medication that she has been taken including phosphorus binder Status: Acute (2) Vocal cord edema Status: Acute
[2018-04-23] MEDS: Clindamycin 600mg/50ml NS 600 MG/50 ML BAG IVPB SCH ×2 (11:32→17:18)
[2018-04-23] MEDS: Saccharomyces Boulardi 250 mg Cap PO SCH ×2 (11:36→17:13)
--- NOTE | 2018-04-23 12:48 | CP.PCM.PN ---
Subjective - Date & Time of Evaluation Date of Evaluation: 04/23/18 Time of Evaluation: 12:45 - Subjective Subjective: dialysis note she was seen on hemodialysis now Patient awake and conscious with some shortness of breath. Vital sign noted to be stable Objective - Vital Signs/Intake and Output Vital Signs (last 24 hours): Temp Pulse Resp BP Pulse Ox 97.7 F 80 20 141/54 L 100 04/23/18 12:42 04/23/18 12:42 04/23/18 12:42 04/23/18 12:42 04/23/18 12:42 - Medications Medications: Current Medications Amlodipine Besylate (Norvasc) 5 mg PO DAILY [facility] Last Admin: 04/23/18 10:06 Dose: Not Given Atorvastatin Calcium (Lipitor) 20 mg PO DAILY [facility] Last Admin: 04/23/18 08:48 Dose: 20 mg Calcium Carbonate (Oscal) 500 mg PO TID [facility] Last Admin: 04/23/18 08:49 Dose: 500 mg Dexamethasone (Decadron Inj) 10 mg IV Q12@0700,2300 [facility] Stop: 04/23/20 23:01 Clindamycin Phosphate (Cleocin 600mg/50ml Ns) 600 mg in 50 mls @ 100 mls/hr IVPB Q8 [facility]; Protocol Last Admin: 04/23/18 11:32 Dose: Not Given Labetalol HCl (Trandate) 100 mg PO BID [facility] Last Admin: 04/23/18 10:06 Dose: Not Given Lisinopril (Zestril) 5 mg PO DAILY [facility] Last Admin: 04/23/18 10:06 Dose: Not Given Mirtazapine (Remeron) 7.5 mg PO [facility] Saccharomyces Boulardii (Florastor) 250 mg PO BID [facility] Last Admin: 04/23/18 11:36 Dose: 250 mg Vitamin B Complex/Vit C/Folic Acid (Nephro-Valentino) 1 tab PO DAILY [facility] Last Admin: 04/23/18 08:49 Dose: 1 tab - Labs Labs: 04/23/18 04:15 04/23/18 04:15 PT 10.0 Seconds (9.8-13.1) 04/22/18 12:50 INR 0.9 04/22/18 12:50 APTT 27.8 Seconds (25.6-37.1) 04/22/18 12:50 - Constitutional Appears: No Acute Distress - Eye Exam Eye Exam: Conjunctival injection - ENT Exam ENT Exam: Mucous Membranes Moist - Cardiovascular Exam Cardiovascular Exam: JVD. absent: Gallop, Rubs - GI/Abdominal Exam GI & Abdominal Exam: Soft, Normal Bowel Sounds - Extremities Exam Extremities Exam: absent: Calf Tenderness - Back Exam Back Exam: absent: CVA tenderness (L), CVA tenderness (R) - Neurological Exam Neurological Exam: Alert - Skin Skin Exam: absent: Cyanosis Assessment and Plan (1) Chronic kidney disease with end stage renal failure on dialysis Assessment & Plan: end stage renal disease hyperkalemia Volume overloaded Hypertension The plan Receiving hemodialysis now from left AV fistula. Ultrafiltration 2500 mL Potassium bath 2 mEq Sodium bath 138 Bicarbonate bath 34 Discussed with the dialysis nurse at the bedside patient known to be noncompliance does not show up outpatient for dialysis Status: Acute (2) Vocal cord edema Status: Acute
--- NOTE | 2018-04-23 13:44 | CARD ---
APPROVED REPORT Date of service: 04/22/2018 EKG Measurement Heart [id number] MI [id number] <Conclusion> Normal sinus rhythm Possible Left atrial enlargement T wave abnormality, consider lateral ischemia Abnormal ECG
[2018-04-24] MEDS: Clindamycin 600mg/50ml NS 600 MG/50 ML BAG IVPB SCH ×2 (00:43→09:12)
--- NOTE | 2018-04-24 04:31 | CON ---
DATE: 04/23/2018 I was called to see this patient due to the patient's hoarseness. The patient herself extubated two days ago and has been hoarse ever since. The patient has never had shortness of breath or stridor. CAT scan was done which shows possible edema of the vocal cord. This was done in the emergency room yesterday. She also had difficulty swallowing, which was moderate in intensity. At this point, the patient's voice is still hoarse. There is no change as per her daughter; however, the patient is taking adequate p.o. and has no trouble swallowing. There is no shortness of breath, no stridor. The patient is uncooperative with the exam and will not let me to do a flexible laryngoscopy on her. At this point, my recommendation is that the patient be sent home on p.o. antibiotics and steroids. The patient can follow up in my office as an outpatient. I will attempt to do a flexible laryngoscopy again. Umang Lyle MD
[2018-04-24] MEDS: Saccharomyces Boulardi 250 mg Cap PO SCH (09:13)
[2018-04-24] MEDS: Multivitamin Vitamin B Complex (Nephro-Vite) Tab PO SCH (09:14)
--- NOTE | 2018-04-24 09:53 | CP.PCM.PN ---
Subjective - Date & Time of Evaluation Date of Evaluation: 04/24/18 Time of Evaluation: 07:25 - Subjective Subjective: Patient seen and examined with Dr. Del Rio this morning. Overnight events reviewed, patient was placed in 1:1 for patient's safety. This morning, patient agrees to go to [facility]. Denies any chest pain, dypsnea or throat pain. Tolerating PO. Objective - Vital Signs/Intake and Output Vital Signs (last 24 hours): Temp Pulse Resp BP Pulse Ox 98.1 F 71 20 143/64 96 04/24/18 09:27 04/24/18 09:27 04/24/18 09:27 04/24/18 09:27 04/24/18 09:27 - Medications Medications: Current Medications Amlodipine Besylate (Norvasc) 5 mg PO DAILY [facility] Last Admin: 04/24/18 09:14 Dose: 5 mg Atorvastatin Calcium (Lipitor) 20 mg PO DAILY [facility] Last Admin: 04/24/18 09:13 Dose: 20 mg Calcium Carbonate (Oscal) 500 mg PO TID [facility] Last Admin: 04/24/18 09:13 Dose: 500 mg Dexamethasone (Decadron Inj) 10 mg IV Q12@0700,2300 [facility] Stop: 04/23/20 23:01 Clindamycin Phosphate (Cleocin 600mg/50ml Ns) 600 mg in 50 mls @ 100 mls/hr IVPB Q8 [facility]; Protocol Last Admin: 04/24/18 09:12 Dose: 100 mls/hr Labetalol HCl (Trandate) 100 mg PO BID [facility] Last Admin: 04/24/18 09:14 Dose: 100 mg Lisinopril (Zestril) 5 mg PO DAILY [facility] Last Admin: 04/24/18 09:13 Dose: 5 mg Mirtazapine (Remeron) 7.5 mg PO HS [facility] Last Admin: 04/23/18 21:13 Dose: 7.5 mg Saccharomyces Boulardii (Florastor) 250 mg PO BID [facility] Last Admin: 04/24/18 09:13 Dose: 250 mg Vitamin B Complex/Vit C/Folic Acid (Nephro-Valentino) 1 tab PO DAILY [facility] Last Admin: 04/24/18 09:14 Dose: 1 tab - Labs Labs: 04/23/18 04:15 10/09/18 04:15 PT 10.0 Seconds (9.8-13.1) 04/22/18 12:50 INR 0.9 04/22/18 12:50 APTT 27.8 Seconds (25.6-37.1) 04/22/18 12:50 - Constitutional Appears: Non-toxic, No Acute Distress - Head Exam Head Exam: NORMAL INSPECTION - Eye Exam Eye Exam: EOMI, Normal appearance - ENT Exam ENT Exam: Mucous Membranes Moist - Respiratory Exam Respiratory Exam: Clear to Ausculation Bilateral, NORMAL BREATHING PATTERN. absent: Rhonchi, Wheezes - Cardiovascular Exam Cardiovascular Exam: REGULAR RHYTHM, +S1, +S2 - GI/Abdominal Exam GI & Abdominal Exam: Soft, Normal Bowel Sounds. absent: Tenderness - Extremities Exam Extremities Exam: absent: Calf Tenderness - Neurological Exam Neurological Exam: Alert, Awake - Skin Skin Exam: Normal Color, Warm Assessment and Plan - Assessment and Plan (Free Text) Assessment: 77 yo female with pmhx of dementia, ESRD on HD, anxiety, hypercholesterolemia admitted for laryngeal and vocal cord edema s/p intubation on 04/17/18 and self extubation on 04/18/18. Now placed in 1:1 for patients safety. Plan: ENT consult: Dr. Lyle, consult appreciated. Continue with decadron and clindamycin ( will discharge patient with po abx and po steroids) Nephrology consult: Dr. Benedict, consult appreciated. HD yesterday Psychiatry consult Rest of the plan as ordered. Patient seen, examined and plan discussed with Dr. Edward Valerio, pgy-2
[2018-04-24 11:00] LABS: HEMOGLOBIN 10.4 g/dL (12.0-16.0); MEAN CELL VOLUME 88.5 fl (81.0-99.0); MEAN CORPUSCULAR HEMOGLOBIN 29.9 pg (27.0-31.0); MEAN CORPUSCULAR HGB CONC 33.8 g/dL (33.0-37.0); RBC 3.49 Mil/uL (3.80-5.20); RED CELL DISTRIBUTION WIDTH 14.9 % (11.5-14.5); WHITE BLOOD COUNT 6.5 K/uL (4.8-10.8)
[2018-04-24 11:17] LABS: CALCIUM 9.1 mg/dL (8.4-10.2)
--- NOTE | 2018-04-24 11:56 | CP.PCM.PN ---
Subjective - Date & Time of Evaluation Date of Evaluation: 04/24/18 Time of Evaluation: 11:55 - Subjective Subjective: patient sitting up in the chair Not in distress but confused to place and time Objective - Vital Signs/Intake and Output Vital Signs (last 24 hours): Temp Pulse Resp BP Pulse Ox 98.1 F 71 20 143/64 96 04/24/18 09:27 04/24/18 09:27 04/24/18 09:27 04/24/18 09:27 04/24/18 09:27 - Medications Medications: Current Medications Amlodipine Besylate (Norvasc) 5 mg PO DAILY [facility] Last Admin: 04/24/18 09:14 Dose: 5 mg Atorvastatin Calcium (Lipitor) 20 mg PO DAILY [facility] Last Admin: 04/24/18 09:13 Dose: 20 mg Calcium Carbonate (Oscal) 500 mg PO TID [facility] Last Admin: 04/24/18 09:13 Dose: 500 mg Dexamethasone (Decadron Inj) 10 mg IV Q12@0700,2300 [facility] Stop: 04/23/20 23:01 Clindamycin Phosphate (Cleocin 600mg/50ml Ns) 600 mg in 50 mls @ 100 mls/hr IVPB Q8 [facility]; Protocol Last Admin: 04/24/18 09:12 Dose: 100 mls/hr Labetalol HCl (Trandate) 100 mg PO BID [facility] Last Admin: 04/24/18 09:14 Dose: 100 mg Lisinopril (Zestril) 5 mg PO DAILY [facility] Last Admin: 04/24/18 09:13 Dose: 5 mg Mirtazapine (Remeron) 7.5 mg PO HS [facility] Last Admin: 04/23/18 21:13 Dose: 7.5 mg Saccharomyces Boulardii (Florastor) 250 mg PO BID [facility] Last Admin: 04/24/18 09:13 Dose: 250 mg Vitamin B Complex/Vit C/Folic Acid (Nephro-Valentino) 1 tab PO DAILY [facility] Last Admin: 04/24/18 09:14 Dose: 1 tab - Labs Labs: 04/24/18 10:55 04/24/18 10:55 PT 10.0 Seconds (9.8-13.1) 04/22/18 12:50 INR 0.9 04/22/18 12:50 APTT 27.8 Seconds (25.6-37.1) 04/22/18 12:50 - Constitutional Appears: No Acute Distress - ENT Exam ENT Exam: Mucous Membranes Dry - Neck Exam Neck Exam: absent: Lymphadenopathy - Respiratory Exam Respiratory Exam: absent: NORMAL BREATHING PATTERN - Extremities Exam Extremities Exam: absent: Calf Tenderness - Back Exam Back Exam: absent: CVA tenderness (L), CVA tenderness (R) - Neurological Exam Neurological Exam: Alert - Psychiatric Exam Psychiatric exam: Normal Affect - Skin Skin Exam: absent: Cyanosis Assessment and Plan (1) Chronic kidney disease with end stage renal failure on dialysis Assessment & Plan: end stage renal disease on maintenance hemodialysis twice a week we may have to give extra hemodialysis and this week. Volume overloaded improved after dialysis Hyperkalemia corrected after dialysis Dementia Hypertension history History of hyperphosphatemia and secondary hyperparathyroidism Anemia The plan Continue hemodialysis as schedule EPO for the anemia Continue the medication for hyperphosphatemia ,hypertension Status: Acute (2) Vocal cord edema Status: Acute
[2018-04-24 13:22] VITALS: BP 135/74; PULSE 78; TEMP 98.4; O2SAT 97
--- NOTE | 2018-04-24 16:23 | CP.PCM.CON ---
History of Present Illness - History of Present Illness History of Present Illness: 77 yo female with pmhx of dementia, ESRD on HD, anxiety, hypercholesterolemia presents to [facility] ED yesterday with c/o throat pain and hoarse voice. pt on evaluation presenting with depressed mood and tearful affect, reporting feeling lonely and missing her family around also feeling down due to current medical condition and gowing through dialysis, pt denied changes in sleep or appetite, denied any current suicidal thoughts or intent denied perceptual disturbances alert awake oriented to person and partially to place Past Patient History - Infectious Disease Hx of Infectious Diseases: None - Tetanus Immunizations Tetanus Immunization: Unknown - Past Medical History & Family History Past Medical History?: Yes - Past Social History Smoking Status: Never Smoked - CARDIAC Hx Cardiac Disorders: Yes - PULMONARY Hx Respiratory Disorders: Yes - NEUROLOGICAL Hx Neurological Disorder: Yes - HEENT Hx HEENT Problems: No - RENAL Hx Chronic Kidney Disease: Yes - ENDOCRINE/METABOLIC Hx Endocrine Disorders: No - HEMATOLOGICAL/ONCOLOGICAL Hx Blood Disorders: Yes - INTEGUMENTARY Hx Dermatological Problems: No - MUSCULOSKELETAL/RHEUMATOLOGICAL Hx Musculoskeletal Disorders: No Hx Falls: Yes - GASTROINTESTINAL Hx Crohn's Disease: No Hx Diverticulitis: No Hx Gall Bladder Disease: No Hx Gastritis: No Hx Pancreatitis: No - GENITOURINARY/GYNECOLOGICAL Hx Genitourinary Disorders: Yes - PSYCHIATRIC Hx Psychophysiologic Disorder: Yes Hx Substance Use: No - SURGICAL HISTORY Hx Appendectomy: Yes Hx Carotid Endarterectomy: No Hx Cholecystectomy: No Hx Coronary Artery Bypass Graft: No Hx Coronary Stent: No Hx Tonsillectomy: Yes - ANESTHESIA Hx Anesthesia: Yes Hx Anesthesia Reactions: No Hx Malignant Hyperthermia: No Meds Home Medications: Home Medication List Medication Instructions Recorded Confirmed Type Clindamycin [Cleocin] 600 mg PO Q8 #15 cap 04/24/18 Rx Dexamethasone [Decadron] 6 mg PO Q8 #8 tablet 04/24/18 Rx Memantine [Namenda] 5 mg PO DAILY #30 tab 04/24/18 Rx Mirtazapine [Remeron] 15 mg PO HS #30 tab 04/24/18 Rx Saccharomyces Boulardi [Florastor] 250 mg PO BID #30 cap 04/24/18 Rx Allergies/Adverse Reactions: Allergies Allergy/AdvReac Type Severity Reaction Status Date / Time No Known Allergies Allergy Verified 04/22/18 12:04 Results - Vital Signs Recent Vital Signs: Last Vital Signs Temp 98.4 F 04/24/18 13:00 Pulse 78 04/24/18 13:00 Resp 20 04/24/18 13:00 BP 135/74 04/24/18 13:00 Pulse Ox 97 04/24/18 13:00 - Labs Result Diagrams: 04/24/18 10:55 04/24/18 10:55 Labs: Laboratory Results - last 24 hr 04/24/18 04/24/18 10:55 10:55 WBC 6.5 D RBC 3.49 L Hgb 10.4 L Hct 30.9 L MCV 88.5 MCH 29.9 MCHC 33.8 RDW 14.9 H Plt Count 179 Sodium 136 Potassium 4.5 Chloride 92 L Carbon Dioxide 27 Anion Gap 22 H BUN 55 H Creatinine 5.0 H Est GFR ( Amer) 10 Est GFR (Non-Af Amer) 8 Random Glucose 140 H Calcium 9.1 Assessment & Plan - Assessment and Plan (Free Text) Assessment: 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
--- NOTE | 2018-04-24 17:31 | CP.PCM.DIS ---
Provider - Provider Date of Admission: 04/22/18 15:16 Attending physician: Juan Carlos Del Rio MD Time Spent in preparation of Discharge (in minutes): 30 Diagnosis - Discharge Diagnosis (1) Laryngeal edema Status: Acute (2) CKD (chronic kidney disease) requiring chronic dialysis Status: Chronic (3) Noncompliance of patient with renal dialysis Status: Chronic Priority: High (4) Vocal cord edema Status: Acute Hospital Course - Lab Results Lab Results: Micro Results 04/22/18 13:40 Blood Blood Culture - Preliminary NO GROWTH AFTER 48 HOURS 04/22/18 15:00 Blood Blood Culture - Preliminary NO GROWTH AFTER 48 HOURS Most Recent Lab Values WBC 6.5 K/uL (4.8-10.8) D 04/24/18 10:55 RBC 3.49 Mil/uL (3.80-5.20) L 04/24/18 10:55 Hgb 10.4 g/dL (12.0-16.0) L 04/24/18 10:55 Hct 30.9 % (34.0-47.0) L 04/24/18 10:55 MCV 88.5 fl (81.0-99.0) 04/24/18 10:55 MCH 29.9 pg (27.0-31.0) 04/24/18 10:55 MCHC 33.8 g/dL (33.0-37.0) 04/24/18 10:55 RDW 14.9 % (11.5-14.5) H 04/24/18 10:55 Plt Count 179 K/uL (130-400) 04/24/18 10:55 MPV 10.7 fl (7.2-11.7) 04/23/18 04:15 Neut % (Auto) 87.1 % (50.0-75.0) H 04/23/18 04:15 Lymph % (Auto) 11.1 % (20.0-40.0) L 04/23/18 04:15 Rains % (Auto) 1.6 % (0.0-10.0) 04/23/18 04:15 Eos % (Auto) 0.0 % (0.0-4.0) 04/23/18 04:15 Baso % (Auto) 0.2 % (0.0-2.0) 04/23/18 04:15 Neut # (Auto) 2.6 K/uL (1.8-7.0) 04/23/18 04:15 Lymph # (Auto) 0.3 K/uL (1.0-4.3) L 04/23/18 04:15 Rains # (Auto) 0.0 K/uL (0.0-0.8) 04/23/18 04:15 Eos # (Auto) 0.0 K/uL (0.0-0.7) 04/23/18 04:15 Baso # (Auto) 0.0 K/uL (0.0-0.2) 04/23/18 04:15 PT 10.0 Seconds (9.8-13.1) 04/22/18 12:50 INR 0.9 04/22/18 12:50 APTT 27.8 Seconds (25.6-37.1) 04/22/18 12:50 Sodium 136 mmol/l (132-148) 04/24/18 10:55 Potassium 4.5 MMOL/L (3.6-5.0) 04/24/18 10:55 Chloride 92 mmol/L (98-107) L 04/24/18 10:55 Carbon Dioxide 27 mmol/L (22-30) 04/24/18 10:55 Anion Gap 22 (10-20) H 04/24/18 10:55 BUN 55 mg/dl (7-17) H 04/24/18 10:55 Creatinine 5.0 mg/dl (0.7-1.2) H 04/24/18 10:55 Est GFR ( Amer) 10 04/24/18 10:55 Est GFR (Non-Af Amer) 8 04/24/18 10:55 POC Glucose (mg/dL) 125 mg/dL (65-110) H 04/22/18 15:09 Random Glucose 140 mg/dL (65-105) H 04/24/18 10:55 Calcium 9.1 mg/dL (8.4-10.2) 04/24/18 10:55 Total Bilirubin 0.5 mg/dl (0.2-1.3) 04/23/18 04:15 AST 21 U/L (14-36) 04/23/18 04:15 ALT 20 U/L (9-52) 04/23/18 04:15 Alkaline Phosphatase 63 U/L (38-126) 04/23/18 04:15 Troponin I 0.0150 ng/mL (0.00-0.120) 04/22/18 12:50 Total Protein 6.9 G/DL (6.3-8.2) 04/23/18 04:15 Albumin 4.0 g/dL (3.5-5.0) 04/23/18 04:15 Globulin 2.9 gm/dL (2.2-3.9) 04/23/18 04:15 Albumin/Globulin Ratio 1.4 (1.0-2.1) 04/23/18 04:15 Lipase 210 U/L (23-300) 04/22/18 12:50 - Hospital Course Hospital Course: 77 yo female with pmhx of dementia, ESRD on HD, anxiety, hypercholesterolemia presents to [facility] ED 04/22/18 with c/o throat pain and hoarse voice. Patient had CT of soft tissue of the neck which showed laryngeal and vocal cord edema (R>L) and admitted for medical management. Of note, patient was admitted on 04/17/18 for acute respiratory failure due to fluid overload/acute pulmonary edema due to missed HD. Patient was intubated on 04/17/18 for airway protection. Patient self extubated next day, without apparent complications. She was discharged home on 04/21/18. ENT Dr. Lyle was consulted and recommended to administer her decadron and clindamycin. Patient received those medications and HD while in the hospital. Patient was placed on 1:1 observation last night due to her safety. Psychiatrist Dr. Lloyd recommended Remeron 15 mg po qhs and stable to discharge home. Patient is hemodynamically stable to discharge home. Advised to continue with HD. Discharge Exam - Head Exam Head Exam: NORMAL INSPECTION - Eye Exam Eye Exam: Normal appearance - ENT Exam ENT Exam: Mucous Membranes Moist - Respiratory Exam Respiratory Exam: Clear to PA & Lateral, NORMAL BREATHING PATTERN. absent: Wheezes, Respiratory Distress - Cardiovascular Exam Cardiovascular Exam: REGULAR RHYTHM, +S1, +S2 - GI/Abdominal Exam GI & Abdominal Exam: Normal Bowel Sounds, Soft. absent: Tenderness - Neurological Exam Neurological exam: Alert, Oriented x3 - Psychiatric Exam Psychiatric exam: Normal Affect, Normal Mood - Skin Skin Exam: Normal Color, Warm Discharge Plan - Discharge Medications Prescriptions: Clindamycin [Cleocin] 600 mg PO Q8 #15 cap Dexamethasone [Decadron] 6 mg PO Q8 #8 tablet Memantine [Namenda] 5 mg PO DAILY #30 tab Mirtazapine [Remeron] 15 mg PO HS #30 tab Saccharomyces Boulardi [Florastor] 250 mg PO BID #30 cap - Follow Up Plan Condition: GUARDED Disposition: HOME/ ROUTINE Instructions: Vocal Cord Dysfunction, End Stage Kidney Disease (DC) Additional Instructions: follow up with pmd in 1 week Referrals: Umang Lyle MD [Staff Provider] - Fredis Benedict MD [Staff Provider] - Juan Carlos Del Rio MD [Staff Provider] -
== END 2018-04-24 15:01 | disposition home or self-care (01) | DRG 154 ==
LOC: H.ER 10:28 → H.ERHOLD 15:16 → H.TEL 18:46
PROVIDERS: ADMIT Family Medicine; ATTEND Family Medicine
PROC: 5A1D70Z Performance of Urinary Filtration, Intermittent, Less than 6 Hours Per Day (ICD-10-PCS; principal; 2018-04-23)
DX: J38.4 Edema of larynx (principal); N18.6 End stage renal disease; N25.81 Secondary hyperparathyroidism of renal origin; I13.2 Hypertensive heart and chronic kidney disease with heart failure and with stage 5 chronic kidney disease, or end stage renal disease; F06.31 Mood disorder due to known physiological condition with depressive features; F01.50 Vascular dementia, unspecified severity, without behavioral disturbance, psychotic disturbance, mood disturbance, and anxiety; E87.5 Hyperkalemia; E78.00 Pure hypercholesterolemia, unspecified; F41.9 Anxiety disorder, unspecified; G30.9 Alzheimer's disease, unspecified; F02.80 Dementia in other diseases classified elsewhere, unspecified severity, without behavioral disturbance, psychotic disturbance, mood disturbance, and anxiety; D64.9 Anemia, unspecified; Z91.15 Patient's noncompliance with renal dialysis; Z99.2 Dependence on renal dialysis; I50.9 Heart failure, unspecified; E87.70 Fluid overload, unspecified

== ENCOUNTER 2018-05-13 12:32 | Inpatient (IN) | payer MEDICARE ==
[2018-05-13 13:12] VITALS: BMI 26.5
[2018-05-13 14:29] LABS: BASO # 0.1 K/uL (0.0-0.2); BASO % 0.5 % (0.0-2.0); EOS # 0.1 K/uL (0.0-0.7); EOS % 0.9 % (0.0-4.0); HEMOGLOBIN 11.2 g/dL (12.0-16.0); LYMPH # 0.8 K/uL (1.0-4.3); LYMPH % 6.7 % (20.0-40.0); MEAN CELL VOLUME 87.2 fl (81.0-99.0); MEAN CORPUSCULAR HEMOGLOBIN 28.6 pg (27.0-31.0); MEAN CORPUSCULAR HGB CONC 32.8 g/dL (33.0-37.0); MEAN PLATELET VOLUME 10.1 fl (7.2-11.7); MONO # 1.2 K/uL (0.0-0.8); MONO % 10.4 % (0.0-10.0); NEUT # 9.1 K/uL (1.8-7.0); NEUT % 81.5 % (50.0-75.0); PLATELET COUNT 207 K/uL (130-400); RBC 3.93 Mil/uL (3.80-5.20); RED CELL DISTRIBUTION WIDTH 16.1 % (11.5-14.5); WHITE BLOOD COUNT 11.2 K/uL (4.8-10.8)
[2018-05-13] MEDS: Vancomycin 500 mg (Oral/Rectal USE) PO STA ×2 (14:30→15:00)
[2018-05-13 14:52] LABS: ALB/GLOB RATIO 1.1 (1.0-2.1); ALBUMIN 3.2 g/dL (3.5-5.0); CALCIUM 8.4 mg/dL (8.4-10.2)
[2018-05-13 15:33] LABS: ANISOCYTOSIS SLIGHT; BANDS 2 % (0-2); BASOPHIL 1 % (0-2); HYPOCHROMIC SLIGHT; LYMPHOCYTE 7 % (20-50); MONOCYTE 16 % (0-10); MYELOCYTE 1 % (0-0); NEUTROPHIL 73 % (42-75); PLATELET ESTIMATE NORMAL (NORMAL); TOTAL CELLS COUNTED 100
[2018-05-13 15:34] LABS: OVALOCYTES SLIGHT; SCHISTOCYTES SLIGHT; TOXIC GRANULATION PRESENT
[2018-05-13] MEDS ORDERED: Sodium Chloride 0.9% 500 ML IV STA ×2 (15:45→17:28)
[2018-05-13] MEDS ORDERED: Vancomycin 1 g Inj ONE (15:57)
--- NOTE | 2018-05-13 15:58 | ED PDOC ---
HPI: General Adult Time Seen by Provider: 05/13/18 13:45 Chief Complaint (Nursing): GI Problem Chief Complaint (Provider): GI Problem History Per: Patient, Family History/Exam Limitations: no limitations Current Symptoms Are (Timing): Still Present Additional Complaint(s): 77 year old female with a history of end stage renal disease, multiple recent hospitalizations, and recent intubation for pulmonary edema presents to the ED for diarrhea. Patient was discharged yesterday from [place] for C diff colitis and she is taking oral vancomycin. Family states persistent, profuse watery diarrhea that is making her generally weak, with worsening confusion. Patient denies blood per rectum, fever, chest pain or syncope. She was supposed to have dialysis but was too weak to attend. PMD: Dr. Dumont Past Medical History Reviewed: Historical Data, Nursing Documentation, Vital Signs Vital Signs: Last Vital Signs Temp 98 F 05/13/18 13:07 Pulse 96 H 05/13/18 13:07 Resp BP 113/64 05/13/18 13:07 Pulse Ox 97 05/13/18 13:07 - Medical History PMH: Alzheimer's Disease, Anemia, Anxiety, CHF, Dementia, HTN, Hypercholesterolemia, Pneumonia, End Stage Renal Disease, Chronic Kidney Disease Denies: Arthritis, Asthma, Atrial Fibrillation, Bipolar Disorder, Bronchitis, CAD, Cardia Arrhythmia, COPD, Crohn's Disease, Depression, Diverticulitis, Emphysema, Fractures, Gastritis, Gall Bladder Disease, HIV, Hyperthyroidism, Hypothyroidism, Kidney Stones, Migraine, Mitral Valve Prolapse, Multiple Sclerosis, Osteoporosis, Pancreatitis, Paranoia, Parkinson's Disease, Peripheral Edema, Post Traumatic Stress Disorder, Pulmonary Embolism, Rheumatoid Arthritis, Schizophrenia, Seizures, Sickle Cell Disease, Sexually Transmitted Disease, Sleep Apnea, TIA - Surgical History Surgical History: Appendectomy, Tonsillectomy Denies: CABG, Carotid Endarterectomy, Cholecystectomy, Coronary Stent, Pacemaker - Family History Family History: States: Unknown Family Hx, Hypertension - Immunization History Hx Tetanus Toxoid Vaccination: No Hx Influenza Vaccination: No Hx Pneumococcal Vaccination: No - Home Medications Home Medications: Ambulatory Orders Medication Instructions Recorded Atorvastatin [Lipitor] 20 mg PO DAILY 08/16/16 Labetalol [Trandate] 100 mg PO BID 08/16/16 amLODIPine [Norvasc] 5 mg PO DAILY 08/16/16 Calcium Carbonate [Oscal] 500 mg PO TID 10/16/17 Lisinopril [Zestril] 5 mg PO DAILY 01/24/18 Vitamin B Complex/Vit C/Folic 1 tab PO DAILY tab 04/01/18 [Nephro-Valentino] Memantine [Namenda] 5 mg PO DAILY #30 tab 04/24/18 Mirtazapine [Remeron] 15 mg PO HS #30 tab 04/24/18 Saccharomyces Boulardi [Florastor] 250 mg PO BID #30 cap 04/24/18 Calcium Acetate [Phoslo] 667 mg PO TID 05/13/18 clonazePAM [Klonopin] 0.5 mg PO Q8 PRN 05/13/18 - Allergies Allergies/Adverse Reactions: Allergies Allergy/AdvReac Type Severity Reaction Status Date / Time No Known Allergies Allergy Verified 04/22/18 12:04 Review of Systems ROS Statement: Except As Marked, All Systems Reviewed And Found Negative Constitutional: Positive for: Other (dehydration ) Gastrointestinal: Positive for: Abdominal Pain, Diarrhea Neurological: Positive for: Weakness, Confusion Physical Exam - Reviewed Nursing Documentation Reviewed: Yes Vital Signs Reviewed: Yes - Physical Exam ENT: Positive for: Other (dry mucous membranes) Gastrointestinal/Abdominal: Positive for: Distended (softly) Extremity: Positive for: Other (no distal edema) Neurologic/Psych: Positive for: Alert, Oriented (x2-3) Comments: Patient appears mildly confused and dehydrated - Laboratory Results Result Diagrams: 05/13/18 14:17 05/13/18 14:17 - ECG ECG Rhythm: Positive for: Sinus Rhythm, ST/T Changes (laterally) Rate: 87 O2 Sat by Pulse Oximetry: 97 (RA) Pulse Ox Interpretation: Normal Medical Decision Making Medical Decision Making: Time: 135 Initial Plan: --EKG --CMP --Magnesium --Phosphorus --CBC with differentials --Vancomycin Time: 1553 --Blood work reviewed which revealed hyponatremia and hypokalemia. Gentle IV fluids initiated. Dr. Del Rio was contacted and will consult renal for missed dialysis and electrolyte deficiency. PO vancomycin continued. Time: 155 --Dr. Day nephrology agrees with fluid management and will reassess in the morning for need of dialysis. Patient placed on contact isolation. Scribe Attestation: Documented by Vianey Muñoz, acting as a scribe for Hoang Sam III, DO Provider Scribe Attestation: All medical record entries made by the Scribe were at my direction and personally dictated by me. I have reviewed the chart and agree that the record accurately reflects my personal performance of the history, physical exam, medical decision making, and the department course for this patient. I have also personally directed, reviewed, and agree with the discharge instructions and disposition. Disposition - Clinical Impression Clinical Impression: C. difficile diarrhea, Dehydration, Hypokalemia, Weakness - Patient ED Disposition Is Patient to be Admitted: Yes Counseled Patient/Family Regarding: Studies Performed, Diagnosis - Disposition Disposition Time: 15:30 Condition: FAIR - Pt Status Changed To: Hospital Disposition Of: Observation - POA Present On Arrival: None
[2018-05-13] MEDS ORDERED: Sodium Chloride 0.9% 1,000 ML IV SCH (23:00)
[2018-05-14] MEDS: Saccharomyces Boulardi 250 mg Cap PO SCH ×3 (00:28→17:28)
[2018-05-14] MEDS: metroNIDAZOLE 500mg/100ml NS 100 ML IVPB SCH ×3 (01:38→17:30)
[2018-05-14 05:37] LABS: HEMOGLOBIN 10.9 g/dL (12.0-16.0); MEAN CELL VOLUME 87.4 fl (81.0-99.0); MEAN CORPUSCULAR HEMOGLOBIN 28.7 pg (27.0-31.0); MEAN CORPUSCULAR HGB CONC 32.8 g/dL (33.0-37.0); RBC 3.8 Mil/uL (3.80-5.20); RED CELL DISTRIBUTION WIDTH 16.1 % (11.5-14.5); WHITE BLOOD COUNT 11.5 K/uL (4.8-10.8)
[2018-05-14 06:06] LABS: ALB/GLOB RATIO 1.1 (1.0-2.1); ALBUMIN 2.9 g/dL (3.5-5.0); CALCIUM 8.1 mg/dL (8.4-10.2)
[2018-05-14] MEDS: Potassium CL 10 MEQ/50 ML 50 ML IVPB SCH ×4 (06:25→12:55)
[2018-05-14] MEDS ORDERED: Calcium Acetate 667 MG Capsule PO SCH (09:00)
[2018-05-14] MEDS: Multivitamin Vitamin B Complex (Nephro-Vite) Tab PO SCH (10:07)
[2018-05-14] MEDS: Nystatin 100,000 Units/ml Oral Susp 5 ml UD PO SCH ×4 (10:08→22:21)
--- NOTE | 2018-05-14 10:55 | CP.PCM.CON ---
History of Present Illness - History of Present Illness History of Present Illness: 77 year old female with a history of end stage renal disease presents to the ED for diarrhea. Patient was discharged yesterday from [facility] for C diff colitis and she is taking oral vancomycin. Family states persistent, profuse watery diarrhea with worsening confusion. ID consulted for this - Medical History PMH: Alzheimer's Disease, Anemia, Anxiety, CHF, Dementia, HTN, Hyper cholesterolemia, Pneumonia, End Stage Renal Disease, Chronic Kidney Disease Denies: Arthritis, Asthma, Atrial Fibrillation, Bipolar Disorder, Bronchitis, CAD, Cardia Arrhythmia, COPD, Crohn's Disease, Depression, Diverticulitis, Emphysema, Fractures, Gastritis, Gall Bladder Disease, HIV, Hyperthyroidism, Hypothyroidism, Kidney Stones, Migraine, Mitral Valve Prolapse, Multiple Sclerosis, Osteoporosis, Pancreatitis, Paranoia, Parkinson's Disease, Peripheral Edema, Post Traumatic Stress Disorder, Pulmonary Embolism, Rheumatoid Arthritis, Schizophrenia, Seizures, Sickle Cell Disease, Sexually Transmitted Disease, Sleep Apnea, TIA - Surgical History Surgical History: Appendectomy, Tonsillectomy Denies: CABG, Carotid Endarterectomy, Cholecystectomy, Coronary Stent, Pacemaker Review of Systems - Review of Systems Systems not reviewed;Unavailable: Altered Mental Status All systems: reviewed and no additional remarkable complaints except - Constitutional Constitutional: As Per HPI - EENT Eyes: absent: As Per HPI, Blind Spots, Blurred Vision, Change in Vision, Decreased Night Vision, Diplopia, Discharge, Dry Eye, Exophthalmos, Floaters, Irritation, Itchy Eyes, Loss of Peripheral Vision, Pain, Photophobia, Requires Corrective Lenses, Sees Flashes, Spots in Vision, Tunnel Vision, Other Visual Disturbances, Loss of Vision, Other Ears: absent: As Per HPI, Decreased Hearing, Ear Discharge, Ear Pain, Tinnitus, Abnormal Hearing, Disequilibrium, Dizziness, Other Nose/Mouth/Throat: absent: As Per HPI, Epistaxis, Nasal Congestion, Nasal Discharge, Nasal Obstruction, Nasal Trauma, Nose Pain, Post Nasal Drip, Sinus Pain, Sinus Pressure, Bleeding Gums, Change in Voice, Dental Pain, Dry Mouth, Dysphagia, Halitosis, Hoarsness, Lip Swelling, Mouth Lesions, Mouth Pain, Odynophagia, Sore Throat, Throat Swelling, Tongue Swelling, Facial Pain, Neck Pain, Neck Mass, Other - Breasts Breasts: absent: As Per HPI, Change in Shape, Mass, Pain, Nipple Discharge, Nipple Inversion, Skin Changes, Swelling, Other - Cardiovascular Cardiovascular: absent: As Per HPI, Acrocyanosis, Chest Pain, Chest Pain at Rest, Chest Pain with Activity, Claudication, Diaphoresis, Dyspnea, Dyspnea on Exertion, Edema, Irregular Heart Rhythm, Pain Radiating to Arm/Neck/Jaw, Leg Edema, Leg Ulcers, Lightheadedness, Orthopnea, Palpitations, Paroxysmal Nocturnal Dyspnea, Pedal Edema, Radiating Pain, Rapid Heart Rate, Slow Heart Rate, Syncope, Other - Respiratory Respiratory: absent: As Per HPI, Cough, Dyspnea, Hemoptysis, Dyspnea on Exertion, Wheezing, Snoring, Stridor, Pain on Inspiration, Chest Congestion, Excessive Mucous Production, Change in Mucous Color, Pain with Coughing, Other - Gastrointestinal Gastrointestinal: As Per HPI - Genitourinary Genitourinary: absent: As Per HPI, Change in Urinary Stream, Difficulty Urinating, Dysuria, Flank Pain, Hematuria, Pyuria, Nocturia, Urinary Incontinence, Urinary Frequency, Urinary Hesitance, Urinary Urgency, Voiding Freq/Small Amts, Freq UTI, Hx Renal/Bladder Calculi, Hx /Renal Surgery, Bladder Distension, Other - Reproductive: Female Reproductive:Female: absent: As Per HPI, Amenorrhea, Amenorrhea/ Control, Currently Menstual, Cycle <21 Days, Cycle >35 Days, Cycle Variable, Menses 1-7 Days, Menses >/= 8 Days, Menses Variable, Cycle > 4 Weeks Between, No Menses for 6 Months, Heavy Menses, Light Menses, Normal Menses, Spotting Between Cycles, S/P Hysterectomy, Menopausal, Post Menopausal, Premenarche, Abnormal Vaginal Bleeding, Dysmenorrhea, Dyspareunia, Genital Lesions, Genital Pruritis, Pelvic Pain, Prolapse Symptoms, Sexual Dysfunction, Vaginal Discharge, Vaginal Dryness, Vaginal Odor, Vaginal Pruritis, Other - Menstruation Menstruation: absent: As Per HPI, Amenorrhea, Amenorrhea/ Control, Currently Menstual, Cycle <21 Days, Cycle >35 Days, Cycle Variable, Menses 1-7 Days, Menses >/= 8 Days, Menses Variable, Cycle > 4 Weeks Between, No Menses for 6 Months, Heavy Menses, Light Menses, Normal Menses, Spotting Between Cycles, S/P Hysterectomy, Menopausal, Post Menopausal, Premenarche, Abnormal Vaginal Bleeding, Dysmenorrhea, Other - Musculoskeletal Musculoskeletal: absent: As Per HPI, Abnormal Gait, Arthralgias, Atrophy, Back Pain, Deformity, Joint Swelling, Limited Range of Motion, Loss of Height, Muscle Cramps, Muscle Weakness, Myalgias, Neck Pain, Numbness, Radiating Pain into Limb, Stiffness, Tingling, Other - Integumentary Integumentary: absent: As Per HPI, Acne, Alopecia, Bleeding Lesions, Change in Hair, Change in Nails, Change in Pigmentation, Changing Lesions, Dry Skin, Erythema, Furuncle, Hirsutism, Lesions, New Lesions, Non-Healing Lesions, Photosensitivity, Pruritus, Rash, Skin Pain, Skin Ulcer, Sores, Striae, Swelling, Unusual Bruising, Wounds, Jaundice, Other - Neurological Neurological: As Per HPI - Psychiatric Psychiatric: absent: As Per HPI, Abnormal Sleep Pattern, Anhedonia, Anxiety, Auditory Hallucinations, Behavioral Changes, Change in Appetite, Change in Libido, Confusion, Depression, Difficulty Concentrating, Hallucinations, Homicidal Ideation, Hopelessness, Irritability, Memory Loss, Mood Swings, Panic Attacks, Paranoia, Suicidal Ideation, Visual Hallucinations, Tactile Hallucinations, Other - Endocrine Endocrine: absent: As Per HPI, Change in Body Appearance, Change in Libido, Cold Intolorance, Deepening of Voice, Excessive Sweating, Fatigue, Flushing, Heat Intolorance, Increase in Ring/Shoe/Hat Size, Palpitations, Polydipsia, Polyphagia, Polyuria, Other - Hematologic/Lymphatic Hematologic: absent: As Per HPI, Easy Bleeding, Easy Bruising, Lymphadenopathy, Other Past Patient History - Infectious Disease Hx of Infectious Diseases: C.diff - Tetanus Immunizations Tetanus Immunization: Unknown - Past Medical History & Family History Past Medical History?: Yes - Past Social History Smoking Status: Never Smoked - CARDIAC Hx Cardiac Disorders: Yes Hx Congestive Heart Failure: Yes Hx Hypercholesterolemia: Yes Hx Hypertension: Yes - PULMONARY Hx Respiratory Disorders: Yes Hx Pneumonia: Yes - NEUROLOGICAL Hx Neurological Disorder: Yes Hx Alzheimer's Disease: Yes Hx Dementia: Yes - HEENT Hx HEENT Problems: No - RENAL Hx Chronic Kidney Disease: Yes (ESRD) Hx Dialysis: Yes Type of Dialysis Access: AV shunt Date of Last Dialysis Treatment: 05/09/18 - ENDOCRINE/METABOLIC Hx Endocrine Disorders: No Hx Hyperthyroidism: No Hx Hypothyroidism: No - HEMATOLOGICAL/ONCOLOGICAL Hx Blood Disorders: Yes Hx Anemia: Yes - INTEGUMENTARY Hx Dermatological Problems: No - MUSCULOSKELETAL/RHEUMATOLOGICAL Hx Musculoskeletal Disorders: No Hx Arthritis: No Hx Falls: Yes Hx Fractures: No Hx Osteoporosis: No Hx Rheumatoid Arthritis: No - GASTROINTESTINAL Hx Gastrointestinal Disorders: Yes Hx Bowel Surgery: No Hx Colitis: Yes Hx Crohn's Disease: No Hx Diverticulitis: No Hx Gall Bladder Disease: No Hx Gastritis: No Hx Pancreatitis: No - GENITOURINARY/GYNECOLOGICAL Hx Genitourinary Disorders: No Hx Sexually Transmitted Disorders: No - PSYCHIATRIC Hx Psychophysiologic Disorder: Yes Hx Anxiety: Yes Hx Bipolar Disorder: No Hx Depression: No Hx Paranoia: No Hx Post Traumatic Stress Disorder: No Hx Schizophrenia: No Hx Substance Use: No - SURGICAL HISTORY Hx Surgeries: Yes Hx Appendectomy: Yes Hx Carotid Endarterectomy: No Hx Cholecystectomy: Yes Hx Coronary Artery Bypass Graft: No Hx Coronary Stent: No Hx Hysterectomy: Yes Hx Tonsillectomy: Yes - ANESTHESIA Hx Anesthesia: Yes Hx Anesthesia Reactions: No Hx Malignant Hyperthermia: No Meds Allergies/Adverse Reactions: Allergies Allergy/AdvReac Type Severity Reaction Status Date / Time No Known Allergies Allergy Verified 04/22/18 12:04 - Medications Medications: Current Medications Amlodipine Besylate (Norvasc) 5 mg PO DAILY [facility] Last Admin: 05/14/18 10:08 Dose: 5 mg Atorvastatin Calcium (Lipitor) 20 mg PO DAILY [facility] Last Admin: 05/14/18 10:07 Dose: 20 mg Calcium Acetate (Phoslo) 667 mg PO TID [facility] Calcium Carbonate (Oscal) 500 mg PO TID [facility] Last Admin: 05/14/18 10:09 Dose: 500 mg Clonazepam (Klonopin) 0.5 mg PO Q8 PRN PRN Reason: Anxiety Metronidazole (Flagyl 500mg/100ml Ns) 100 mls @ 100 mls/hr IVPB Q8 [facility]; Protocol Last Admin: 05/14/18 10:05 Dose: 100 mls/hr Sodium Chloride (Sodium Chloride 0.9%) 1,000 mls @ 100 mls/hr IV .Q10H [facility] Stop: 05/14/18 23:00 Last Admin: 05/14/18 01:39 Dose: 100 mls/hr Potassium Chloride (Potassium Cl 10meq/50ml Sterile Water) 50 mls @ 50 mls/hr IVPB Q1 [facility] Stop: 05/14/18 10:59 Last Admin: 05/14/18 10:17 Dose: 50 mls/hr Labetalol HCl (Trandate) 100 mg PO BID [facility] Last Admin: 05/14/18 10:10 Dose: 100 mg Lisinopril (Zestril) 5 mg PO DAILY [facility] Lorazepam (Ativan) 1 mg IV Q6 PRN PRN Reason: Agitation Memantine (Namenda) 5 mg PO DAILY [facility] Last Admin: 05/14/18 10:07 Dose: 5 mg Mirtazapine (Remeron) 15 mg PO HS [facility] Last Admin: 05/14/18 00:28 Dose: Not Given Nystatin (Nystatin Oral Susp) 5 ml PO QID [facility] Last Admin: 05/14/18 10:08 Dose: 5 ml Ondansetron HCl (Zofran Inj) 4 mg IVP Q6 PRN PRN Reason: Nausea/Vomiting Last Admin: 05/14/18 06:25 Dose: 4 mg Saccharomyces Boulardii (Florastor) 250 mg PO BID [facility] Last Admin: 05/14/18 10:07 Dose: 250 mg Vitamin B Complex/Vit C/Folic Acid (Nephro-Valentino) 1 tab PO DAILY [facility] Last Admin: 05/14/18 10:07 Dose: 1 tab Physical Exam - Constitutional Appears: Non-toxic, No Acute Distress, Confused, Chronically Ill - Head Exam Head Exam: ATRAUMATIC, NORMAL INSPECTION, NORMOCEPHALIC - Eye Exam Eye Exam: PERRL Pupil Exam: NORMAL ACCOMODATION - ENT Exam ENT Exam: Normal Exam - Neck Exam Neck exam: Positive for: Full Rom - Respiratory Exam Respiratory Exam: Decreased Breath Sounds, Rhonchi - Cardiovascular Exam Cardiovascular Exam: REGULAR RHYTHM, +S1, +S2 - GI/Abdominal Exam GI & Abdominal Exam: Diminished Bowel Sounds - Rectal Exam Rectal Exam: Deferred - Exam Exam: NORMAL INSPECTION - Extremities Exam Extremities exam: Positive for: normal inspection - Back Exam Back exam: FULL ROM, NORMAL INSPECTION. absent: CVA tenderness (L), CVA tenderness (R), muscle spasm, paraspinal tenderness, rash noted, tenderness, vertebral tenderness - Neurological Exam Neurological exam: Alert, CN II-XII Intact - Psychiatric Exam Psychiatric exam: Depressed - Skin Skin Exam: Intact Results - Vital Signs Recent Vital Signs: Last Vital Signs Temp 97.8 F 05/14/18 08:32 Pulse 96 H 05/14/18 10:08 Resp 20 05/14/18 08:32 BP 142/66 05/14/18 10:08 Pulse Ox 100 05/14/18 08:32 - Labs Result Diagrams: 05/14/18 05:10 05/14/18 14:32 Labs: Laboratory Results - last 24 hr 05/13/18 05/13/18 05/14/18 14:17 14:17 05:10 WBC 11.2 H D 11.5 H RBC 3.93 3.80 Hgb 11.2 L 10.9 L Hct 34.2 33.2 L MCV 87.2 87.4 MCH 28.6 28.7 MCHC 32.8 L 32.8 L RDW 16.1 H 16.1 H Plt Count 207 198 MPV 10.1 Neut % (Auto) 81.5 H Lymph % (Auto) 6.7 L [place] % (Auto) 10.4 H Eos % (Auto) 0.9 Baso % (Auto) 0.5 Neut # (Auto) 9.1 H Lymph # (Auto) 0.8 L [place] # (Auto) 1.2 H Eos # (Auto) 0.1 Baso # (Auto) 0.1 Neutrophils % (Manual) 73 Band Neutrophils % 2 Lymphocytes % (Manual) 7 L Monocytes % (Manual) 16 H Basophils % (Manual) 1 Myelocytes % 1 H Toxic Granulation Present Platelet Estimate Normal Hypochromasia (manual) Slight Anisocytosis (manual) Slight Ovalocytes Slight Schistocytes Slight Sodium 131 L Potassium 3.3 L Chloride 94 L Carbon Dioxide 19 L Anion Gap 21 H BUN 69 H Creatinine 6.5 H Est GFR ( Amer) 7 Est GFR (Non-Af Amer) 6 Random Glucose 115 H Calcium 8.4 Phosphorus 5.3 H Magnesium 2.2 Total Bilirubin 0.8 AST 71 H D ALT 36 Alkaline Phosphatase 62 Total Protein 6.1 L Albumin 3.2 L Globulin 2.8 Albumin/Globulin Ratio 1.1 C. difficile Ag & Toxin 05/14/18 05/14/18 05:10 08:18 WBC RBC Hgb Hct MCV MCH MCHC RDW Plt Count MPV Neut % (Auto) Lymph % (Auto) [place] % (Auto) Eos % (Auto) Baso % (Auto) Neut # (Auto) Lymph # (Auto) [place] # (Auto) Eos # (Auto) Baso # (Auto) Neutrophils % (Manual) Band Neutrophils % Lymphocytes % (Manual) Monocytes % (Manual) Basophils % (Manual) Myelocytes % Toxic Granulation Platelet Estimate Hypochromasia (manual) Anisocytosis (manual) Ovalocytes Schistocytes Sodium 132 Potassium 2.5 L* D Chloride 98 Carbon Dioxide 20 L Anion Gap 17 BUN 66 H Creatinine 7.2 H Est GFR ( Amer) 7 Est GFR (Non-Af Amer) 5 Random Glucose 100 Calcium 8.1 L Phosphorus Magnesium Total Bilirubin 0.5 AST 54 H D ALT 37 Alkaline Phosphatase 64 Total Protein 5.6 L Albumin 2.9 L Globulin 2.7 Albumin/Globulin Ratio 1.1 C. difficile Ag & Toxin Negative Assessment & Plan (1) C. difficile diarrhea Status: Acute (2) Dehydration Status: Acute (3) Hypokalemia Status: Acute (4) Chronic kidney disease requiring chronic dialysis Status: Acute - Assessment and Plan (Free Text) Assessment: 77 yo female with ESRD on HD was recently hosp at [place] with CHF / resp failure and C diff + Brought in by family for persistent diarrhea Has elevated Procalcitonin level but C Diff is negative Started on Flagyl Vanco IV added pending blood cultures , stool cultures and CXR
--- NOTE | 2018-05-14 11:33 | CP.PCM.HP ---
History of Present Illness - History of Present Illness History of Present Illness: 77 year old female with a history of end stage renal disease on HD, multiple recent hospitalizations presents to the ED for diarrhea. Patient was discharged 2 days ago from [place] for C diff colitis and she is taking oral vancomycin. Family states persistent, profuse watery diarrhea that is making her generally weak, with worsening confusion. Patient denies blood per rectum, fever, chest pain or syncope. PMD: Dr. Dumont PMH: Alzheimer's Disease, Anemia, Anxiety, CHF, HTN, Hypercholesterolemia, Pneumonia, End Stage Renal Disease. PSH: Appendectomy, Tonsillectomy Meds: as bellow NKDA FMH: noncontributory SH: denies tobacco, etoh or drugs Present on Admission - Present on Admission Any Indicators Present on Admission: No Review of Systems - Review of Systems All systems: reviewed and no additional remarkable complaints except (HPI) Past Patient History - Infectious Disease Hx of Infectious Diseases: C.diff - Tetanus Immunizations Tetanus Immunization: Unknown - Past Medical History & Family History Past Medical History?: Yes - Past Social History Smoking Status: Never Smoked - CARDIAC Hx Cardiac Disorders: Yes Hx Congestive Heart Failure: Yes Hx Hypercholesterolemia: Yes Hx Hypertension: Yes - PULMONARY Hx Respiratory Disorders: Yes Hx Pneumonia: Yes - NEUROLOGICAL Hx Neurological Disorder: Yes Hx Alzheimer's Disease: Yes Hx Dementia: Yes - HEENT Hx HEENT Problems: No - RENAL Hx Chronic Kidney Disease: Yes (ESRD) Hx Dialysis: Yes Type of Dialysis Access: AV shunt Date of Last Dialysis Treatment: 05/09/18 - ENDOCRINE/METABOLIC Hx Endocrine Disorders: No Hx Hyperthyroidism: No Hx Hypothyroidism: No - HEMATOLOGICAL/ONCOLOGICAL Hx Blood Disorders: Yes Hx Anemia: Yes - INTEGUMENTARY Hx Dermatological Problems: No - MUSCULOSKELETAL/RHEUMATOLOGICAL Hx Musculoskeletal Disorders: No Hx Arthritis: No Hx Falls: Yes Hx Fractures: No Hx Osteoporosis: No Hx Rheumatoid Arthritis: No - GASTROINTESTINAL Hx Gastrointestinal Disorders: Yes Hx Bowel Surgery: No Hx Colitis: Yes Hx Crohn's Disease: No Hx Diverticulitis: No Hx Gall Bladder Disease: No Hx Gastritis: No Hx Pancreatitis: No - GENITOURINARY/GYNECOLOGICAL Hx Genitourinary Disorders: No Hx Sexually Transmitted Disorders: No - PSYCHIATRIC Hx Psychophysiologic Disorder: Yes Hx Anxiety: Yes Hx Bipolar Disorder: No Hx Depression: No Hx Paranoia: No Hx Post Traumatic Stress Disorder: No Hx Schizophrenia: No Hx Substance Use: No - SURGICAL HISTORY Hx Surgeries: Yes Hx Appendectomy: Yes Hx Carotid Endarterectomy: No Hx Cholecystectomy: Yes Hx Coronary Artery Bypass Graft: No Hx Coronary Stent: No Hx Hysterectomy: Yes Hx Tonsillectomy: Yes - ANESTHESIA Hx Anesthesia: Yes Hx Anesthesia Reactions: No Hx Malignant Hyperthermia: No Meds Allergies/Adverse Reactions: Allergies Allergy/AdvReac Type Severity Reaction Status Date / Time No Known Allergies Allergy Verified 04/22/18 12:04 Physical Exam - Constitutional Appears: No Acute Distress - Head Exam Head Exam: NORMAL INSPECTION - Respiratory Exam Respiratory Exam: Clear to Auscultation Bilateral - Cardiovascular Exam Cardiovascular Exam: REGULAR RHYTHM, +S1, +S2 - GI/Abdominal Exam GI & Abdominal Exam: Soft. absent: Distended, Tenderness - Extremities Exam Extremities exam: Negative for: pedal edema - Neurological Exam Neurological exam: Alert, CN II-XII Intact, Oriented x3 - Skin Skin Exam: Dry, Warm Results - Vital Signs Recent Vital Signs: Last Vital Signs Temp 97.8 F 05/14/18 08:32 Pulse 96 H 05/14/18 10:08 Resp 20 05/14/18 08:32 BP 142/66 05/14/18 10:08 Pulse Ox 100 05/14/18 08:32 - Labs Result Diagrams: 05/14/18 05:10 05/14/18 05:10 Labs: Laboratory Results - last 24 hr 05/13/18 05/13/18 05/14/18 14:17 14:17 05:10 WBC 11.2 H D 11.5 H RBC 3.93 3.80 Hgb 11.2 L 10.9 L Hct 34.2 33.2 L MCV 87.2 87.4 MCH 28.6 28.7 MCHC 32.8 L 32.8 L RDW 16.1 H 16.1 H Plt Count 207 198 MPV 10.1 Neut % (Auto) 81.5 H Lymph % (Auto) 6.7 L [place] % (Auto) 10.4 H Eos % (Auto) 0.9 Baso % (Auto) 0.5 Neut # (Auto) 9.1 H Lymph # (Auto) 0.8 L [place] # (Auto) 1.2 H Eos # (Auto) 0.1 Baso # (Auto) 0.1 Neutrophils % (Manual) 73 Band Neutrophils % 2 Lymphocytes % (Manual) 7 L Monocytes % (Manual) 16 H Basophils % (Manual) 1 Myelocytes % 1 H Toxic Granulation Present Platelet Estimate Normal Hypochromasia (manual) Slight Anisocytosis (manual) Slight Ovalocytes Slight Schistocytes Slight Sodium 131 L Potassium 3.3 L Chloride 94 L Carbon Dioxide 19 L Anion Gap 21 H BUN 69 H Creatinine 6.5 H Est GFR ( Amer) 7 Est GFR (Non-Af Amer) 6 Random Glucose 115 H Calcium 8.4 Phosphorus 5.3 H Magnesium 2.2 Total Bilirubin 0.8 AST 71 H D ALT 36 Alkaline Phosphatase 62 Total Protein 6.1 L Albumin 3.2 L Globulin 2.8 Albumin/Globulin Ratio 1.1 C. difficile Ag & Toxin 05/14/18 05/14/18 05:10 08:18 WBC RBC Hgb Hct MCV MCH MCHC RDW Plt Count MPV Neut % (Auto) Lymph % (Auto) [place] % (Auto) Eos % (Auto) Baso % (Auto) Neut # (Auto) Lymph # (Auto) [place] # (Auto) Eos # (Auto) Baso # (Auto) Neutrophils % (Manual) Band Neutrophils % Lymphocytes % (Manual) Monocytes % (Manual) Basophils % (Manual) Myelocytes % Toxic Granulation Platelet Estimate Hypochromasia (manual) Anisocytosis (manual) Ovalocytes Schistocytes Sodium 132 Potassium 2.5 L* D Chloride 98 Carbon Dioxide 20 L Anion Gap 17 BUN 66 H Creatinine 7.2 H Est GFR ( Amer) 7 Est GFR (Non-Af Amer) 5 Random Glucose 100 Calcium 8.1 L Phosphorus Magnesium Total Bilirubin 0.5 AST 54 H D ALT 37 Alkaline Phosphatase 64 Total Protein 5.6 L Albumin 2.9 L Globulin 2.7 Albumin/Globulin Ratio 1.1 C. difficile Ag & Toxin Negative Assessment & Plan - Assessment and Plan (Free Text) Assessment: 77 yo female with PMH of HTN, ESRD, dementia and CHF admitted due to profuse watery diarrhea and hypokalemia. h/o C diff diarrhea. Plan: - stable, no abd pain - s/p vanco po - labs reviewed - hypokalemia: replaced - ID consulted, recommendations appreciated - nephro consulted, pt due for HD - f\u labs in am - continue home meds - rest of plan as ordered Case seen and examined with Dr Leon.
[2018-05-14 16:00] LABS: CALCIUM 8.4 mg/dL (8.4-10.2)
--- NOTE | 2018-05-14 16:19 | CARD ---
APPROVED REPORT Date of service: 05/13/2018 EKG Measurement Heart [id number] ID [id number] <Conclusion> Sinus rhythm with 1st degree AV block Possible Left atrial enlargement T wave abnormality, consider lateral ischemia Abnormal ECG
--- NOTE | 2018-05-14 17:52 | CP.PCM.CON ---
History of Present Illness - History of Present Illness History of Present Illness: renal consult note 77 year old female with a history of end stage renal disease, multiple recent hospitalizations, and recent intubation for pulmonary edema presents to the ED for diarrhea. she missed hd yesterday and does not want to do today - Medical History PMH: Alzheimer's Disease, Anemia, Anxiety, CHF, Dementia, HTN, Hypercholesterolemia, Pneumonia, End Stage Renal Disease, Chronic Kidney Disease Denies: Arthritis, Asthma, Atrial Fibrillation, Bipolar Disorder, Bronchitis, CAD, Cardia Arrhythmia, COPD, Crohn's Disease, Depression, Diverticulitis, Emphysema, Fractures, Gastritis, Gall Bladder Disease, HIV, Hyperthyroidism, Hypothyroidism, Kidney Stones, Migraine, Mitral Valve Prolapse, Multiple Sclerosis, Osteoporosis, Pancreatitis, Paranoia, Parkinson's Disease, Peripheral Edema, Post Traumatic Stress Disorder, Pulmonary Embolism, Rheumatoid Arthritis, Schizophrenia, Seizures, Sickle Cell Disease, Sexually Transmitted Disease, Sleep Apnea, TIA - Surgical History Surgical History: Appendectomy, Tonsillectomy Denies: CABG, Carotid Endarterectomy, Cholecystectomy, Coronary Stent, Pacemaker allergies reviewed complete ros is negative meds reviewed pe: vitals reviewed heent normal thin lady nad heent normal op moist no jjvd s12 preesnt no resp distress abd soft nt nd no edema alert,, oriented to self A&P: esrd/diarrhea/hypokalemia/htn/acidosis hd sun and hwoever refusing today will attempt to do tomorrow hypokalemia replace and recheck can check mag levels anemia monitor epo as needed monitor phos levels Past Patient History - Infectious Disease Hx of Infectious Diseases: C.diff - Tetanus Immunizations Tetanus Immunization: Unknown - Past Medical History & Family History Past Medical History?: Yes - Past Social History Smoking Status: Never Smoked - CARDIAC Hx Cardiac Disorders: Yes Hx Congestive Heart Failure: Yes Hx Hypercholesterolemia: Yes Hx Hypertension: Yes - PULMONARY Hx Respiratory Disorders: Yes Hx Pneumonia: Yes - NEUROLOGICAL Hx Neurological Disorder: Yes Hx Alzheimer's Disease: Yes Hx Dementia: Yes - HEENT Hx HEENT Problems: No - RENAL Hx Chronic Kidney Disease: Yes (ESRD) Hx Dialysis: Yes Type of Dialysis Access: AV shunt Date of Last Dialysis Treatment: 05/09/18 - ENDOCRINE/METABOLIC Hx Endocrine Disorders: No Hx Hyperthyroidism: No Hx Hypothyroidism: No - HEMATOLOGICAL/ONCOLOGICAL Hx Blood Disorders: Yes Hx Anemia: Yes - INTEGUMENTARY Hx Dermatological Problems: No - MUSCULOSKELETAL/RHEUMATOLOGICAL Hx Musculoskeletal Disorders: No Hx Arthritis: No Hx Falls: Yes Hx Fractures: No Hx Osteoporosis: No Hx Rheumatoid Arthritis: No - GASTROINTESTINAL Hx Gastrointestinal Disorders: Yes Hx Bowel Surgery: No Hx Colitis: Yes Hx Crohn's Disease: No Hx Diverticulitis: No Hx Gall Bladder Disease: No Hx Gastritis: No Hx Pancreatitis: No - GENITOURINARY/GYNECOLOGICAL Hx Genitourinary Disorders: No Hx Sexually Transmitted Disorders: No - PSYCHIATRIC Hx Psychophysiologic Disorder: Yes Hx Anxiety: Yes Hx Bipolar Disorder: No Hx Depression: No Hx Paranoia: No Hx Post Traumatic Stress Disorder: No Hx Schizophrenia: No Hx Substance Use: No - SURGICAL HISTORY Hx Surgeries: Yes Hx Appendectomy: Yes Hx Carotid Endarterectomy: No Hx Cholecystectomy: Yes Hx Coronary Artery Bypass Graft: No Hx Coronary Stent: No Hx Hysterectomy: Yes Hx Tonsillectomy: Yes - ANESTHESIA Hx Anesthesia: Yes Hx Anesthesia Reactions: No Hx Malignant Hyperthermia: No Meds Allergies/Adverse Reactions: Allergies Allergy/AdvReac Type Severity Reaction Status Date / Time No Known Allergies Allergy Verified 04/22/18 12:04 - Medications Medications: Current Medications Amlodipine Besylate (Norvasc) 5 mg PO DAILY [facility] Last Admin: 05/14/18 10:08 Dose: 5 mg Atorvastatin Calcium (Lipitor) 20 mg PO DAILY [facility] Last Admin: 05/14/18 10:07 Dose: 20 mg Calcium Acetate (Phoslo) 667 mg PO TID [facility] Last Admin: 05/14/18 17:27 Dose: 667 mg Calcium Carbonate (Oscal) 500 mg PO TID [facility] Last Admin: 05/14/18 17:28 Dose: 500 mg Clonazepam (Klonopin) 0.5 mg PO Q8 PRN PRN Reason: Anxiety Metronidazole (Flagyl 500mg/100ml Ns) 100 mls @ 100 mls/hr IVPB Q8 [facility]; Protocol Last Admin: 05/14/18 17:30 Dose: 100 mls/hr Sodium Chloride (Sodium Chloride 0.9%) 1,000 mls @ 100 mls/hr IV .Q10H [facility] Stop: 05/14/18 23:00 Last Admin: 05/14/18 01:39 Dose: 100 mls/hr Labetalol HCl (Trandate) 100 mg PO BID [facility] Last Admin: 05/14/18 17:28 Dose: Not Given Lisinopril (Zestril) 5 mg PO DAILY [facility] Lorazepam (Ativan) 1 mg IV Q6 PRN PRN Reason: Agitation Memantine (Namenda) 5 mg PO DAILY [facility] Last Admin: 05/14/18 10:07 Dose: 5 mg Mirtazapine (Remeron) 15 mg PO HS [facility] Last Admin: 05/14/18 00:28 Dose: Not Given Nystatin (Nystatin Oral Susp) 5 ml PO QID [facility] Last Admin: 05/14/18 17:28 Dose: 5 ml Ondansetron HCl (Zofran Inj) 4 mg IVP Q6 PRN PRN Reason: Nausea/Vomiting Last Admin: 05/14/18 06:25 Dose: 4 mg Saccharomyces Boulardii (Florastor) 250 mg PO BID [facility] Last Admin: 05/14/18 17:28 Dose: 250 mg Vitamin B Complex/Vit C/Folic Acid (Nephro-Valentino) 1 tab PO DAILY [facility] Last Admin: 05/14/18 10:07 Dose: 1 tab Results - Vital Signs Recent Vital Signs: Last Vital Signs Temp 97.4 F L 05/14/18 16:01 Pulse 50 L 05/14/18 16:01 Resp 17 05/14/18 16:01 BP 98/54 L 05/14/18 16:01 Pulse Ox 99 05/14/18 16:01 - Labs Result Diagrams: 05/14/18 05:10 05/14/18 14:32 Labs: Laboratory Results - last 24 hr 05/14/18 05/14/18 05/14/18 05:10 05:10 08:18 WBC 11.5 H RBC 3.80 Hgb 10.9 L Hct 33.2 L MCV 87.4 MCH 28.7 MCHC 32.8 L RDW 16.1 H Plt Count 198 Sodium 132 Potassium 2.5 L* D Chloride 98 Carbon Dioxide 20 L Anion Gap 17 BUN 66 H Creatinine 7.2 H Est GFR ( Amer) 7 Est GFR (Non-Af Amer) 5 Random Glucose 100 Calcium 8.1 L Total Bilirubin 0.5 AST 54 H D ALT 37 Alkaline Phosphatase 64 Total Protein 5.6 L Albumin 2.9 L Globulin 2.7 Albumin/Globulin Ratio 1.1 C. difficile Ag & Toxin Negative 10/30/18 14:32 WBC RBC Hgb Hct MCV MCH MCHC RDW Plt Count Sodium 132 Potassium 3.1 L Chloride 99 Carbon Dioxide 20 L Anion Gap 16 BUN 67 H Creatinine 6.8 H Est GFR ( Amer) 7 Est GFR (Non-Af Amer) 6 Random Glucose 134 H Calcium 8.4 Total Bilirubin AST ALT Alkaline Phosphatase Total Protein Albumin Globulin Albumin/Globulin Ratio C. difficile Ag & Toxin
[2018-05-15] MEDS: metroNIDAZOLE 500mg/100ml NS 100 ML IVPB SCH ×4 (00:31→19:34)
[2018-05-15 07:13] LABS: BASO # 0.1 K/uL (0.0-0.2); BASO % 0.4 % (0.0-2.0); EOS # 0.2 K/uL (0.0-0.7); EOS % 1.4 % (0.0-4.0); HEMOGLOBIN 10.3 g/dL (12.0-16.0); LYMPH % 7.3 % (20.0-40.0); MEAN CELL VOLUME 86.9 fl (81.0-99.0); MEAN CORPUSCULAR HGB CONC 33.3 g/dL (33.0-37.0); MEAN PLATELET VOLUME 9.8 fl (7.2-11.7); MONO # 1.4 K/uL (0.0-0.8); MONO % 9.5 % (0.0-10.0); NEUT # 11.7 K/uL (1.8-7.0); NEUT % 81.4 % (50.0-75.0); RBC 3.56 Mil/uL (3.80-5.20); RED CELL DISTRIBUTION WIDTH 16.2 % (11.5-14.5); WHITE BLOOD COUNT 14.4 K/uL (4.8-10.8)
[2018-05-15 07:25] LABS: ALB/GLOB RATIO 1.1 (1.0-2.1); ALBUMIN 2.7 g/dL (3.5-5.0); CALCIUM 8.2 mg/dL (8.4-10.2)
[2018-05-15] MEDS ORDERED: Potassium Chloride 20 mEq ER Tab PO ONE (08:28)
[2018-05-15] MEDS: Saccharomyces Boulardi 250 mg Cap PO SCH ×2 (09:40→17:54)
[2018-05-15] MEDS: Nystatin 100,000 Units/ml Oral Susp 5 ml UD PO SCH ×4 (09:40→21:55)
[2018-05-15] MEDS: Multivitamin Vitamin B Complex (Nephro-Vite) Tab PO SCH (09:43)
--- NOTE | 2018-05-15 10:56 | RAD ---
Date of service: 05/15/2018 HISTORY: r/o pneumonia hx chf COMPARISON: Chest radiograph dated 04/22/2018. FINDINGS: LUNGS: Basilar atelectasis versus consolidation. PLEURA: Small left effusion not excluded. No pneumothorax. CARDIOVASCULAR: Aortic atherosclerotic calcifications. Cardiomediastinal silhouette stably enlarged. OSSEOUS STRUCTURES: Unchanged. VISUALIZED UPPER ABDOMEN: Normal. OTHER FINDINGS: None. IMPRESSION: Left basilar atelectasis, infiltrate and/or small effusion.
--- NOTE | 2018-05-15 13:50 | CP.PCM.PN ---
Subjective - Date & Time of Evaluation Date of Evaluation: 05/15/18 Time of Evaluation: 08:00 - Subjective Subjective: c/o diarrhea and abd pain no fever appears weak and bedridden confused family at bedside c diff neg cultures of blood sent consider CT abd / GI eval Objective - Vital Signs/Intake and Output Vital Signs (last 24 hours): Temp Pulse Resp BP Pulse Ox 98.0 F 88 20 150/67 97 05/15/18 12:32 05/15/18 12:32 05/15/18 12:32 05/15/18 12:32 05/15/18 12:32 - Medications Medications: Current Medications Amlodipine Besylate (Norvasc) 5 mg PO DAILY [facility] Last Admin: 05/15/18 09:43 Dose: Not Given Atorvastatin Calcium (Lipitor) 20 mg PO DAILY [facility] Last Admin: 05/15/18 09:43 Dose: 20 mg Calcium Acetate (Phoslo) 667 mg PO TID [facility] Last Admin: 05/15/18 13:20 Dose: 667 mg Calcium Carbonate (Oscal) 500 mg PO TID [facility] Last Admin: 05/15/18 13:20 Dose: 500 mg Clonazepam (Klonopin) 0.5 mg PO Q8 PRN PRN Reason: Anxiety Last Admin: 05/15/18 13:27 Dose: 0.5 mg Metronidazole (Flagyl 500mg/100ml Ns) 100 mls @ 100 mls/hr IVPB Q8 [facility]; Protocol Last Admin: 05/15/18 09:39 Dose: 100 mls/hr Vancomycin HCl 1 gm/ Sodium (Chloride) 250 mls @ 166.667 mls/hr IVPB MWF [facility]; Protocol Last Admin: 05/15/18 09:40 Dose: 166.667 mls/hr Labetalol HCl (Trandate) 100 mg PO BID [facility] Last Admin: 05/15/18 09:43 Dose: 100 mg Lisinopril (Zestril) 5 mg PO DAILY [facility] Last Admin: 05/15/18 09:43 Dose: Not Given Lorazepam (Ativan) 1 mg IV Q6 PRN PRN Reason: Agitation Memantine (Namenda) 5 mg PO DAILY [facility] Last Admin: 05/15/18 09:43 Dose: 5 mg Mirtazapine (Remeron) 15 mg PO HS [facility] Last Admin: 05/14/18 22:22 Dose: 15 mg Nystatin (Nystatin Oral Susp) 5 ml PO QID [facility] Last Admin: 05/15/18 13:19 Dose: 5 ml Ondansetron HCl (Zofran Inj) 4 mg IVP Q6 PRN PRN Reason: Nausea/Vomiting Last Admin: 05/14/18 06:25 Dose: 4 mg Saccharomyces Boulardii (Florastor) 250 mg PO BID [facility] Last Admin: 05/15/18 09:40 Dose: 250 mg Vitamin B Complex/Vit C/Folic Acid (Nephro-Valentino) 1 tab PO DAILY [facility] Last Admin: 05/15/18 09:43 Dose: 1 tab - Labs Labs: 05/15/18 05:45 05/15/18 05:45 - Constitutional Appears: Non-toxic, Confused, Cachectic, Chronically Ill - Head Exam Head Exam: NORMOCEPHALIC - Eye Exam Eye Exam: PERRL. absent: Scleral icterus - ENT Exam ENT Exam: Mucous Membranes Dry - Neck Exam Neck Exam: absent: Lymphadenopathy - Respiratory Exam Respiratory Exam: Decreased Breath Sounds - Cardiovascular Exam Cardiovascular Exam: REGULAR RHYTHM - GI/Abdominal Exam GI & Abdominal Exam: Distended, Soft - Rectal Exam Rectal Exam: Deferred - Exam Exam: NORMAL INSPECTION - Extremities Exam Extremities Exam: absent: Pedal Edema - Back Exam Back Exam: absent: CVA tenderness (L), CVA tenderness (R) - Neurological Exam Neurological Exam: Altered - Psychiatric Exam Psychiatric exam: Depressed - Skin Skin Exam: Dry Assessment and Plan (1) C. difficile diarrhea Status: Acute (2) Dehydration Status: Acute (3) Hypokalemia Status: Acute (4) Chronic kidney disease requiring chronic dialysis Status: Acute - Assessment and Plan (Free Text) Assessment: c/o diarrhea and abd pain no fever appears weak and bedridden confused family at bedside c diff neg cultures of blood sent consider CT abd / GI eval
[2018-05-15] MEDS ORDERED: Sodium Chloride 3% for Inhalation 4 ML VIAL.NEB IH PRN (13:51)
--- NOTE | 2018-05-15 16:13 | CP.PCM.PN ---
Subjective - Date & Time of Evaluation Date of Evaluation: 05/15/18 Time of Evaluation: 16:12 - Subjective Subjective: renal follow up note complains of abdominal pain vitals reviewed heent normal thin lady nad heent normal op moist no jvd s12 preesnt no resp distress abd soft nt nd no edema alert,, oriented to self A&P: esrd/diarrhea/hypokalemia/htn/acidosis hd mon and thurs hwoever she is agreeable today will do hd today minimal UF hypokalemia better today anemia monitor epo as needed monitor phos levels Objective - Vital Signs/Intake and Output Vital Signs (last 24 hours): Temp Pulse Resp BP Pulse Ox 98.5 F 91 H 20 128/67 96 05/15/18 15:51 05/15/18 15:51 05/15/18 15:51 05/15/18 15:51 05/15/18 15:51 - Medications Medications: Current Medications Amlodipine Besylate (Norvasc) 5 mg PO DAILY [facility] Last Admin: 05/15/18 09:43 Dose: Not Given Atorvastatin Calcium (Lipitor) 20 mg PO DAILY [facility] Last Admin: 05/15/18 09:43 Dose: 20 mg Calcium Acetate (Phoslo) 667 mg PO TID [facility] Last Admin: 05/15/18 13:20 Dose: 667 mg Calcium Carbonate (Oscal) 500 mg PO TID [facility] Last Admin: 05/15/18 13:20 Dose: 500 mg Clonazepam (Klonopin) 0.5 mg PO Q8 PRN PRN Reason: Anxiety Last Admin: 05/15/18 13:27 Dose: 0.5 mg Metronidazole (Flagyl 500mg/100ml Ns) 100 mls @ 100 mls/hr IVPB Q8 [facility]; Protocol Last Admin: 05/15/18 09:39 Dose: 100 mls/hr Vancomycin HCl 1 gm/ Sodium (Chloride) 250 mls @ 166.667 mls/hr IVPB MWF [facility]; Protocol Last Admin: 05/15/18 09:40 Dose: 166.667 mls/hr Labetalol HCl (Trandate) 100 mg PO BID [facility] Last Admin: 05/15/18 09:43 Dose: 100 mg Lisinopril (Zestril) 5 mg PO DAILY [facility] Last Admin: 05/15/18 09:43 Dose: Not Given Lorazepam (Ativan) 1 mg IV Q6 PRN PRN Reason: Agitation Memantine (Namenda) 5 mg PO DAILY [facility] Last Admin: 05/15/18 09:43 Dose: 5 mg Mirtazapine (Remeron) 15 mg PO HS [facility] Last Admin: 05/14/18 22:22 Dose: 15 mg Nystatin (Nystatin Oral Susp) 5 ml PO QID [facility] Last Admin: 05/15/18 13:19 Dose: 5 ml Ondansetron HCl (Zofran Inj) 4 mg IVP Q6 PRN PRN Reason: Nausea/Vomiting Last Admin: 05/14/18 06:25 Dose: 4 mg Saccharomyces Boulardii (Florastor) 250 mg PO BID [facility] Last Admin: 05/15/18 09:40 Dose: 250 mg Vitamin B Complex/Vit C/Folic Acid (Nephro-Valentino) 1 tab PO DAILY [facility] Last Admin: 05/15/18 09:43 Dose: 1 tab - Labs Labs: 05/15/18 05:45 05/15/18 05:45
[2018-05-16 05:41] LABS: HEMOGLOBIN 10.6 g/dL (12.0-16.0); MEAN CELL VOLUME 87.4 fl (81.0-99.0); MEAN CORPUSCULAR HEMOGLOBIN 28.5 pg (27.0-31.0); MEAN CORPUSCULAR HGB CONC 32.6 g/dL (33.0-37.0); RBC 3.73 Mil/uL (3.80-5.20); RED CELL DISTRIBUTION WIDTH 16.1 % (11.5-14.5); WHITE BLOOD COUNT 14.8 K/uL (4.8-10.8)
[2018-05-16 05:54] LABS: ALB/GLOB RATIO 1.1 (1.0-2.1); ALBUMIN 2.9 g/dL (3.5-5.0)
[2018-05-16] MEDS ORDERED: Iohexol 240 (50 ml) PO ONE ×2 (08:53→17:02)
[2018-05-16] MEDS: Nystatin 100,000 Units/ml Oral Susp 5 ml UD PO SCH ×4 (09:57→21:50)
[2018-05-16] MEDS: Multivitamin Vitamin B Complex (Nephro-Vite) Tab PO SCH (09:58)
[2018-05-16] MEDS: Saccharomyces Boulardi 250 mg Cap PO SCH ×2 (09:59→17:57)
[2018-05-16] MEDS: metroNIDAZOLE 500mg/100ml NS 100 ML IVPB SCH ×3 (10:00→17:53)
[2018-05-16] MEDS: Oxycodone/Acetaminophen 5/325 mg Tab PO PRN ×2 (13:19→19:19)
--- NOTE | 2018-05-16 14:32 | CP.PCM.PN ---
Subjective - Date & Time of Evaluation Date of Evaluation: 05/16/18 Time of Evaluation: 14:31 - Subjective Subjective: renal follow up note complains of abdominal pain. had loose stool. no CP/SOB vitals reviewed heent normal thin lady nad heent normal op moist no jvd s12 preesnt no resp distress abd soft with marked tenderness and guarding, prominent on lower areas no edema alert,, oriented to self. hx of dementia A&P: esrd/diarrhea/hypokalemia/htn/acidosis hd mon and thurs however last HD yesterday. will next HD tomorrow anemia monitor epo as needed monitor phos levels agree with CT abdomen Objective - Vital Signs/Intake and Output Vital Signs (last 24 hours): Temp Pulse Resp BP Pulse Ox 98.2 F 61 20 114/54 L 96 05/16/18 12:26 05/16/18 12:26 05/16/18 12:26 05/16/18 12:26 05/16/18 12:26 - Medications Medications: Current Medications Acetaminophen (Tylenol 325mg Tab) 650 mg PO Q4 PRN PRN Reason: Pain, moderate (4-7) Last Admin: 05/16/18 10:08 Dose: 650 mg Amlodipine Besylate (Norvasc) 5 mg PO DAILY [facility] Last Admin: 05/16/18 09:58 Dose: 5 mg Atorvastatin Calcium (Lipitor) 20 mg PO DAILY [facility] Last Admin: 05/16/18 09:59 Dose: 20 mg Calcium Acetate (Phoslo) 667 mg PO TID [facility] Last Admin: 05/16/18 13:21 Dose: Not Given Clonazepam (Klonopin) 0.5 mg PO Q8 PRN PRN Reason: Anxiety Last Admin: 05/15/18 22:02 Dose: 0.5 mg Heparin Sodium (Porcine) (Heparin) 5,000 units SC Q8 [facility]; Protocol Last Admin: 05/16/18 13:20 Dose: 5,000 units Metronidazole (Flagyl 500mg/100ml Ns) 100 mls @ 100 mls/hr IVPB Q8 [facility]; Protocol Last Admin: 05/16/18 10:00 Dose: Not Given Vancomycin HCl 1 gm/ Sodium (Chloride) 250 mls @ 166.667 mls/hr IVPB MWF [facility]; Protocol Last Admin: 05/15/18 09:40 Dose: 166.667 mls/hr Labetalol HCl (Trandate) 100 mg PO BID [facility] Last Admin: 05/16/18 09:59 Dose: 100 mg Lisinopril (Zestril) 5 mg PO DAILY [facility] Last Admin: 05/16/18 09:58 Dose: 5 mg Lorazepam (Ativan) 1 mg IV Q6 PRN PRN Reason: Agitation Memantine (Namenda) 5 mg PO DAILY [facility] Last Admin: 05/16/18 09:58 Dose: 5 mg Metronidazole (Flagyl) 500 mg PO Q8 [facility]; Protocol Last Admin: 05/16/18 09:57 Dose: 500 mg Mirtazapine (Remeron) 15 mg PO HS [facility] Last Admin: 05/15/18 23:36 Dose: 15 mg Nystatin (Nystatin Oral Susp) 5 ml PO QID [facility] Last Admin: 05/16/18 13:21 Dose: 5 ml Ondansetron HCl (Zofran Inj) 4 mg IVP Q6 PRN PRN Reason: Nausea/Vomiting Last Admin: 05/14/18 06:25 Dose: 4 mg Oxycodone/Acetaminophen (Percocet 5/325 Mg Tab) 1 tab PO Q6 PRN PRN Reason: Pain, severe (8-10) Stop: 05/19/18 13:02 Last Admin: 05/16/18 13:19 Dose: 1 tab Saccharomyces Boulardii (Florastor) 250 mg PO BID [facility] Last Admin: 05/16/18 09:59 Dose: 250 mg Vitamin B Complex/Vit C/Folic Acid (Nephro-Valentino) 1 tab PO DAILY [facility] Last Admin: 05/16/18 09:58 Dose: 1 tab - Labs Labs: 05/16/18 05:25 05/16/18 05:25
--- NOTE | 2018-05-16 15:30 | CT ---
Date of service: 05/16/2018 PROCEDURE: CT Abdomen and Pelvis without intravenous contrast HISTORY: abd pain COMPARISON: CT scan of the abdomen pelvis dated 04/22/2018. TECHNIQUE: Contiguous images were obtained from the domes of the diaphragms to the upper thighs without the administration of intravenous contrast. Oral contrast was administered. Radiation dose: Total exam DLP = 451.23 mGy-cm. This CT exam was performed using one or more of the following dose reduction techniques: Automated exposure control, adjustment of the mA and/or kV according to patient size, and/or use of iterative reconstruction technique. FINDINGS: LOWER THORAX: Cardiomegaly. Coronary arterial and valvular calcifications. Left lower lobe consolidation. Small left pleural effusion. LIVER: Stable 2.0 cm inferior right hepatic lobe cyst. No gross lesion or ductal dilatation. GALLBLADDER AND BILE DUCTS: Unremarkable. PANCREAS: Unremarkable. No gross lesion or ductal dilatation. SPLEEN: Unremarkable. ADRENALS: Unremarkable. No mass. KIDNEYS AND URETERS: Stable left lower pole exophytic 5.9 cm cyst. No hydronephrosis. No solid mass. VASCULATURE: Descending thoracic aortic aneurysm measuring 3.5 cm just above the aortic hiatus. Extensive aortic and arterial atherosclerotic calcification and mural plaque present. BOWEL: Markedly limited evaluation due to artifact. Colonic distension with apparent thickening at the splenic flexure. Prominent small bowel loops measuring up to 3.0 cm. APPENDIX: Limited assessment. PERITONEUM: Small amount of fluid throughout the abdomen pelvis. No free air. LYMPH NODES: Unremarkable. No enlarged lymph nodes. BLADDER: Unremarkable. REPRODUCTIVE: Prior hysterectomy. BONES: No acute fracture. Spinal degenerative changes. OTHER FINDINGS: None. IMPRESSION: Markedly limited examination that is very difficult to interpret due to extensive artifact as well as absence of intravenous contrast. Nonspecific colonic distention measuring up to 5.5 cm with apparent severe thickening at the splenic flexure. Findings may be infectious/inflammatory, but ischemic etiology cannot be excluded. Distention of the colon proximal to the splenic flexure as well as of the small bowel which measures up to 3.0 cm. Left lower lobe consolidation. Small left pleural effusion. Small amount of ascites throughout the abdomen pelvis. Additional stable findings as above. Findings given to [facility] Merino by Dr. Blanton at 03:22 p.m. on 05/16/2018.
[2018-05-17] MEDS: metroNIDAZOLE 500mg/100ml NS 100 ML IVPB SCH ×3 (01:33→16:36)
[2018-05-17] MEDS: Oxycodone/Acetaminophen 5/325 mg Tab PO PRN (03:08)
[2018-05-17] MEDS ORDERED: Metoprolol 1 mg/ml Inj IVP STA (03:57)
--- NOTE | 2018-05-17 05:20 | CP.PCM.PCO ---
Assessment/Plan - Assessment and Plan (Free Text) Assessment: I was called by RN due to A.Fib and Tachycardia for 77 y/o F. Patient was seen by me in room, comfortable, NAD. Patient was given labetalol 100mg around 5pm as per nurse. O: VS: HRs in 130s with BP of 120 systolic A/P: 77 y/o F with A.fib with RVR, tachycardia, (A.flutter) - Lopressor 25mg PO x2 failed to bring down HR, EKG was ordered - Hospitalist was called, patient was given Lopressor 5mg IV which did not help much, after 40 mins HR still in 130s - Cardizem 10mg IV was ordered at 5 am, HR came down to 90s and in and out A.flutter - Will monitor patient - Continue care as per primary team --- Joaquim Desai, PGY-II
[2018-05-17] MEDS: Saccharomyces Boulardi 250 mg Cap PO SCH ×2 (08:32→16:36)
[2018-05-17] MEDS: Multivitamin Vitamin B Complex (Nephro-Vite) Tab PO SCH (08:34)
[2018-05-17] MEDS: Nystatin 100,000 Units/ml Oral Susp 5 ml UD PO SCH ×5 (08:35→23:16)
--- NOTE | 2018-05-17 09:49 | CP.PCM.PCO ---
Assessment/Plan - Assessment and Plan (Free Text) Assessment: Patient seen and examined this morning. VSS, HR 88 post PO cardizem this morning. Abdominal pain has subsided, patient for repeat CT scan with IV contrast. Patient comfortable in bed. Discussed with aubrey Gavin with ct scan with IV contrast and IR for midline. For HD after ct scan completed. WIll cont to monitor.
[2018-05-17] MEDS ORDERED: Lidocaine 1% Inj (20ml) ONE (12:48)
--- NOTE | 2018-05-17 13:12 | CP.PCM.PN ---
Subjective - Date & Time of Evaluation Date of Evaluation: 05/17/18 Time of Evaluation: 13:11 - Subjective Subjective: still with pain Objective - Vital Signs/Intake and Output Vital Signs (last 24 hours): Temp Pulse Resp BP Pulse Ox 98.4 F 65 18 92/50 L 99 05/17/18 12:00 05/17/18 12:00 05/17/18 12:00 05/17/18 12:32 05/17/18 12:00 - Medications Medications: Current Medications Acetaminophen (Tylenol 325mg Tab) 650 mg PO Q4 PRN PRN Reason: Pain, moderate (4-7) Last Admin: 05/16/18 10:08 Dose: 650 mg Amlodipine Besylate (Norvasc) 5 mg PO DAILY [facility] Last Admin: 05/17/18 08:34 Dose: 5 mg Atorvastatin Calcium (Lipitor) 20 mg PO DAILY [facility] Last Admin: 05/17/18 08:33 Dose: 20 mg Calcium Acetate (Phoslo) 667 mg PO TID [facility] Last Admin: 05/17/18 12:20 Dose: 667 mg Clonazepam (Klonopin) 0.5 mg PO Q8 PRN PRN Reason: Anxiety Last Admin: 05/16/18 22:29 Dose: 0.5 mg Diltiazem HCl (Cardizem) 60 mg PO Q6 [facility] Last Admin: 05/17/18 09:02 Dose: Not Given Heparin Sodium (Porcine) (Heparin) 5,000 units SC Q8 [facility]; Protocol Last Admin: 05/17/18 08:33 Dose: 5,000 units Metronidazole (Flagyl 500mg/100ml Ns) 100 mls @ 100 mls/hr IVPB Q8 [facility]; Protocol Last Admin: 05/17/18 08:41 Dose: 100 mls/hr Vancomycin HCl 1 gm/ Sodium (Chloride) 250 mls @ 166.667 mls/hr IVPB MWF [facility]; Protocol Last Admin: 05/17/18 08:42 Dose: 166.667 mls/hr Lisinopril (Zestril) 5 mg PO DAILY [facility] Last Admin: 05/17/18 08:35 Dose: 5 mg Lorazepam (Ativan) 1 mg IV Q6 PRN PRN Reason: Agitation Memantine (Namenda) 5 mg PO DAILY [facility] Last Admin: 05/17/18 08:34 Dose: 5 mg Metronidazole (Flagyl) 500 mg PO Q8 [facility]; Protocol Last Admin: 05/17/18 08:31 Dose: 500 mg Mirtazapine (Remeron) 15 mg PO HS [facility] Last Admin: 05/16/18 21:50 Dose: 15 mg Nystatin (Nystatin Oral Susp) 5 ml PO QID [facility] Last Admin: 05/17/18 12:24 Dose: Not Given Ondansetron HCl (Zofran Inj) 4 mg IVP Q6 PRN PRN Reason: Nausea/Vomiting Last Admin: 05/14/18 06:25 Dose: 4 mg Oxycodone/Acetaminophen (Percocet 5/325 Mg Tab) 1 tab PO Q6 PRN PRN Reason: Pain, severe (8-10) Stop: 05/19/18 13:02 Last Admin: 05/17/18 03:08 Dose: 1 tab Saccharomyces Boulardii (Florastor) 250 mg PO BID [facility] Last Admin: 05/17/18 08:32 Dose: 250 mg Vitamin B Complex/Vit C/Folic Acid (Nephro-Valentino) 1 tab PO DAILY [facility] Last Admin: 05/17/18 08:34 Dose: 1 tab - Labs Labs: 05/16/18 05:25 05/16/18 05:25 - Respiratory Exam Respiratory Exam: Clear to Ausculation Bilateral, NORMAL BREATHING PATTERN - Cardiovascular Exam Cardiovascular Exam: REGULAR RHYTHM - GI/Abdominal Exam GI & Abdominal Exam: Guarding, Soft, Tenderness, Normal Bowel Sounds Assessment and Plan - Assessment and Plan (Free Text) Assessment: 77 yo female with colitis concern for ongoing colonic ischemia rec: ct with iv contrast
--- NOTE | 2018-05-17 13:31 | CARD ---
APPROVED REPORT Date of service: 05/17/2018 EKG Measurement Heart [id number] <Conclusion> Atrial flutter with variable AV block with premature ventricular or aberrantly conducted complexes Nonspecific ST changes Abnormal ECG
--- NOTE | 2018-05-17 13:39 | PCM.SURG1 ---
Surgeon's Initial Post Op Note - Surgeon's Notes Surgeon: Emery Reyna MD Clinical Sciences Professor: NONE Type of Anesthesia: Local Pre-Operative Diagnosis: Poor venous access Operative Findings: US showed a patent right brachial vein Post-Operative Diagnosis: Poor venous access Operation Performed: Midline picc placement right arm. Tip in axillary vein, 20 cm. Specimen/Specimens Removed: None Estimated Blood Loss: EBL {In ML}: 2 Blood Products Given: N/A Drains Used: No Drains Post-Op Condition: Fair Date of Surgery/Procedure: 05/17/18 Time of Surgery/Procedure: 13:30
--- NOTE | 2018-05-17 14:03 | CP.PCM.PN ---
Subjective - Date & Time of Evaluation Date of Evaluation: 05/17/18 Time of Evaluation: 08:00 - Subjective Subjective: EVENTS NOTED + PAIN AWAIT CT CONT RX Objective - Vital Signs/Intake and Output Vital Signs (last 24 hours): Temp Pulse Resp BP Pulse Ox 97.8 F 70 18 105/57 L 98 05/17/18 13:18 05/17/18 13:37 05/17/18 13:37 05/17/18 13:52 05/17/18 13:18 - Medications Medications: Current Medications Acetaminophen (Tylenol 325mg Tab) 650 mg PO Q4 PRN PRN Reason: Pain, moderate (4-7) Last Admin: 05/16/18 10:08 Dose: 650 mg Amlodipine Besylate (Norvasc) 5 mg PO DAILY [facility] Last Admin: 05/17/18 08:34 Dose: 5 mg Atorvastatin Calcium (Lipitor) 20 mg PO DAILY [facility] Last Admin: 05/17/18 08:33 Dose: 20 mg Calcium Acetate (Phoslo) 667 mg PO TID [facility] Last Admin: 05/17/18 12:20 Dose: 667 mg Clonazepam (Klonopin) 0.5 mg PO Q8 PRN PRN Reason: Anxiety Last Admin: 05/16/18 22:29 Dose: 0.5 mg Diltiazem HCl (Cardizem) 60 mg PO Q6 [facility] Last Admin: 05/17/18 09:02 Dose: Not Given Heparin Sodium (Porcine) (Heparin) 5,000 units SC Q8 [facility]; Protocol Last Admin: 05/17/18 08:33 Dose: 5,000 units Metronidazole (Flagyl 500mg/100ml Ns) 100 mls @ 100 mls/hr IVPB Q8 [facility]; Protocol Last Admin: 05/17/18 08:41 Dose: 100 mls/hr Vancomycin HCl 1 gm/ Sodium (Chloride) 250 mls @ 166.667 mls/hr IVPB MWF [facility]; Protocol Last Admin: 05/17/18 08:42 Dose: 166.667 mls/hr Lisinopril (Zestril) 5 mg PO DAILY [facility] Last Admin: 05/17/18 08:35 Dose: 5 mg Lorazepam (Ativan) 1 mg IV Q6 PRN PRN Reason: Agitation Memantine (Namenda) 5 mg PO DAILY [facility] Last Admin: 05/17/18 08:34 Dose: 5 mg Metronidazole (Flagyl) 500 mg PO Q8 [facility]; Protocol Last Admin: 05/17/18 08:31 Dose: 500 mg Mirtazapine (Remeron) 15 mg PO HS [facility] Last Admin: 05/16/18 21:50 Dose: 15 mg Nystatin (Nystatin Oral Susp) 5 ml PO QID [facility] Last Admin: 05/17/18 12:24 Dose: Not Given Ondansetron HCl (Zofran Inj) 4 mg IVP Q6 PRN PRN Reason: Nausea/Vomiting Last Admin: 05/14/18 06:25 Dose: 4 mg Oxycodone/Acetaminophen (Percocet 5/325 Mg Tab) 1 tab PO Q6 PRN PRN Reason: Pain, severe (8-10) Stop: 05/19/18 13:02 Last Admin: 05/17/18 03:08 Dose: 1 tab Saccharomyces Boulardii (Florastor) 250 mg PO BID [facility] Last Admin: 05/17/18 08:32 Dose: 250 mg Vitamin B Complex/Vit C/Folic Acid (Nephro-Valentino) 1 tab PO DAILY [facility] Last Admin: 05/17/18 08:34 Dose: 1 tab - Labs Labs: 05/16/18 05:25 05/16/18 05:25 - Constitutional Appears: Non-toxic, Cachectic, Chronically Ill - Head Exam Head Exam: NORMOCEPHALIC - Eye Exam Eye Exam: PERRL - ENT Exam ENT Exam: Mucous Membranes Dry - Neck Exam Neck Exam: absent: Lymphadenopathy - Respiratory Exam Respiratory Exam: Decreased Breath Sounds - Cardiovascular Exam Cardiovascular Exam: REGULAR RHYTHM - GI/Abdominal Exam GI & Abdominal Exam: Distended Assessment and Plan (1) C. difficile diarrhea Status: Acute (2) Dehydration Status: Acute (3) Hypokalemia Status: Acute (4) Chronic kidney disease requiring chronic dialysis Status: Acute
[2018-05-17] MEDS ORDERED: Sodium Chloride 0.9% 50 ML IV ONE (14:58)
[2018-05-17] MEDS ORDERED: Iohexol 300 100 ML IJ ONE (14:58)
--- NOTE | 2018-05-17 16:04 | CT ---
Date of service: 05/17/2018 PROCEDURE: CT Abdomen and Pelvis with contrast HISTORY: Abdominal pain/distension COMPARISON: Comparison is made to the previous study dated 05/16/2018 TECHNIQUE: Contrast dose: 95 mL of Omnipaque 300 intravenously. Axial and reformatted coronal and sagittal CT images of the abdomen and pelvis were obtained after IV and oral contrast administration. Radiation dose: Total exam DLP = 415.72 mGy-cm. This CT exam was performed using one or more of the following dose reduction techniques: Automated exposure control, adjustment of the mA and/or kV according to patient size, and/or use of iterative reconstruction technique. FINDINGS: LOWER THORAX: Small left pleural effusion and left lower lobe airspace consolidation are again noted. The heart is enlarged. No evidence of significant right pleural effusion. LIVER: Heterogeneous liver demonstrate coarse heterogeneous enhancement. Low-attenuation lesion noted at the inferior aspect of the right liver lobe may represents is cyst measures 1.5 x 2.5 centimeter. GALLBLADDER AND BILE DUCTS: The gallbladder is distended. No CT evidence of acute cholecystitis. No evidence of biliary obstruction. PANCREAS: Unremarkable. No gross lesion or ductal dilatation. SPLEEN: Heterogeneous enhancement of liver is noted. There are at least 2 wedge enhancement defects noted in the spleen may represent splenic infarction. The spleen is otherwise normal in size. ADRENALS: Unremarkable. No mass. KIDNEYS AND URETERS: The kidneys are small in size. There is a large cyst in the left kidney measures 6.2 centimeter in the transverse diameter. Punctate calcification in both kidneys are noted likely vascular calcification. VASCULATURE: Diffuse atherosclerotic calcification and atherosclerotic disease is noted in the abdominal aorta and iliac arteries. No aortic aneurysm. Foci of aortic atherosclerotic calcification or mural plaque present. BOWEL: There are segmental large bowel market wall thickening involving the cecum ascending and portion of the transverse colon. There is also market wall thickening of the sigmoid and rectum. Dilatation of the ascending colon is also noted associated with diffuse wall thickening. Findings likely represent pancolitis. The possibility of ischemic colitis versus infectious colitis should be considered. Mildly dilated small bowel loops without evidence of high-grade bowel obstruction. APPENDIX: There is no evidence of appendicitis. PERITONEUM: Small amount of free fluid in the abdomen and pelvis is noted. No definite evidence of pneumatosis or free air LYMPH NODES: Mildly enlarged lymph nodes are seen. BLADDER: Mild urinary bladder wall thickening. REPRODUCTIVE: The uterus and adnexa are not visualized. BONES: No acute fracture. OTHER FINDINGS: None. IMPRESSION: Segmental large bowel wall thickening as discussed above. Segmental mild dilatation of descending colon associated with wall thickening. Findings suggestive of colitis. Differential consideration include ischemic or infectious colitis. Mildly dilated small bowel loops without evidence of high-grade bowel obstruction. The possibility of mild bowel ileus is not totally excluded. Abnormal enhancement of the spleen suspicious for splenic infarction.
--- NOTE | 2018-05-17 16:23 | CP.PCM.PN ---
Subjective - Date & Time of Evaluation Date of Evaluation: 05/17/18 Time of Evaluation: 16:21 - Subjective Subjective: renal follow up note complains of abdominal pain but better. improved loose stool. no CP/SOB vitals reviewed heent normal thin lady nad heent normal op moist no jvd s12 preesnt no resp distress abd soft with minimal tenderness and no guarding, or rebound no edema alert,, oriented to self. hx of dementia A&P: esrd/diarrhea/hypokalemia/htn/acidosis /colitis/ AFib with RVR hd mon and thurs usually. will plan for next HD today anemia monitor epo as needed monitor phos levels seen by cardiology, started cardizem for rate control. other BP meds on hold as BP on low side ID following Objective - Vital Signs/Intake and Output Vital Signs (last 24 hours): Temp Pulse Resp BP Pulse Ox 99.1 F 75 20 136/67 98 05/17/18 16:08 05/17/18 16:08 05/17/18 16:08 05/17/18 16:08 05/17/18 16:08 - Medications Medications: Current Medications Acetaminophen (Tylenol 325mg Tab) 650 mg PO Q4 PRN PRN Reason: Pain, moderate (4-7) Last Admin: 05/16/18 10:08 Dose: 650 mg Amlodipine Besylate (Norvasc) 5 mg PO DAILY [facility] Last Admin: 05/17/18 08:34 Dose: 5 mg Atorvastatin Calcium (Lipitor) 20 mg PO DAILY [facility] Last Admin: 05/17/18 08:33 Dose: 20 mg Calcium Acetate (Phoslo) 667 mg PO TID [facility] Last Admin: 05/17/18 12:20 Dose: 667 mg Clonazepam (Klonopin) 0.5 mg PO Q8 PRN PRN Reason: Anxiety Last Admin: 05/16/18 22:29 Dose: 0.5 mg Diltiazem HCl (Cardizem) 60 mg PO Q6 [facility] Last Admin: 05/17/18 09:02 Dose: Not Given Heparin Sodium (Porcine) (Heparin) 5,000 units SC Q8 [facility]; Protocol Last Admin: 05/17/18 08:33 Dose: 5,000 units Metronidazole (Flagyl 500mg/100ml Ns) 100 mls @ 100 mls/hr IVPB Q8 [facility]; Protocol Last Admin: 05/17/18 08:41 Dose: 100 mls/hr Vancomycin HCl 1 gm/ Sodium (Chloride) 250 mls @ 166.667 mls/hr IVPB MWF [facility]; Protocol Last Admin: 05/17/18 08:42 Dose: 166.667 mls/hr Lisinopril (Zestril) 5 mg PO DAILY [facility] Last Admin: 05/17/18 08:35 Dose: 5 mg Lorazepam (Ativan) 1 mg IV Q6 PRN PRN Reason: Agitation Memantine (Namenda) 5 mg PO DAILY [facility] Last Admin: 05/17/18 08:34 Dose: 5 mg Metronidazole (Flagyl) 500 mg PO Q8 [facility]; Protocol Last Admin: 05/17/18 08:31 Dose: 500 mg Mirtazapine (Remeron) 15 mg PO HS [facility] Last Admin: 05/16/18 21:50 Dose: 15 mg Nystatin (Nystatin Oral Susp) 5 ml PO QID [facility] Last Admin: 05/17/18 12:24 Dose: Not Given Ondansetron HCl (Zofran Inj) 4 mg IVP Q6 PRN PRN Reason: Nausea/Vomiting Last Admin: 05/14/18 06:25 Dose: 4 mg Oxycodone/Acetaminophen (Percocet 5/325 Mg Tab) 1 tab PO Q6 PRN PRN Reason: Pain, severe (8-10) Stop: 05/19/18 13:02 Last Admin: 05/17/18 03:08 Dose: 1 tab Saccharomyces Boulardii (Florastor) 250 mg PO BID [facility] Last Admin: 05/17/18 08:32 Dose: 250 mg Vitamin B Complex/Vit C/Folic Acid (Nephro-Valentino) 1 tab PO DAILY [facility] Last Admin: 05/17/18 08:34 Dose: 1 tab - Labs Labs: 05/16/18 05:25 05/16/18 05:25
--- NOTE | 2018-05-17 18:02 | CP.PCM.CON ---
<Yady Brwon - Last Filed: 05/17/18 19:45> History of Present Illness - History of Present Illness History of Present Illness: General Surgery consult for Dr. 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 Upon interview the patient is resting comfortably in bed. Patient states that she has had 1 BM today of diarrhea and denies blood or tarry appearance. She indicates that the pain is somewhat improved from yesterday. She denies any prior episodes of cdiff in the past. She states that she has had a colonoscopy in the past but cannot remember when it was. She believes the results were normal. She otherwise denies ROBERTO, f/c, SOB, CP, n/v, blood in stool, melena, and extremity pain or weakness. PMD: Dr. Dumont PMH: Alzheimer's Disease, Anemia, Anxiety, CHF, HTN, Hypercholesterolemia, Pneumonia, End Stage Renal Disease. PSH: Appendectomy, Tonsillectomy Meds: as bellow NKDA FMH: noncontributory SH: denies tobacco, etoh or drugs Review of Systems - Review of Systems All systems: reviewed and no additional remarkable complaints except (as per HPI) Past Patient History - Infectious Disease Hx of Infectious Diseases: C.diff - Tetanus Immunizations Tetanus Immunization: Unknown - Past Medical History & Family History Past Medical History?: Yes - Past Social History Smoking Status: Never Smoked - CARDIAC Hx Cardiac Disorders: Yes Hx Congestive Heart Failure: Yes Hx Hypercholesterolemia: Yes Hx Hypertension: Yes - PULMONARY Hx Respiratory Disorders: Yes Hx Pneumonia: Yes - NEUROLOGICAL Hx Neurological Disorder: Yes Hx Alzheimer's Disease: Yes Hx Dementia: Yes - HEENT Hx HEENT Problems: No - RENAL Hx Chronic Kidney Disease: Yes (ESRD) Hx Dialysis: Yes Type of Dialysis Access: AV shunt Date of Last Dialysis Treatment: 05/09/18 - ENDOCRINE/METABOLIC Hx Endocrine Disorders: No Hx Hyperthyroidism: No Hx Hypothyroidism: No - HEMATOLOGICAL/ONCOLOGICAL Hx Blood Disorders: Yes Hx Anemia: Yes - INTEGUMENTARY Hx Dermatological Problems: No - MUSCULOSKELETAL/RHEUMATOLOGICAL Hx Musculoskeletal Disorders: No Hx Arthritis: No Hx Falls: Yes Hx Fractures: No Hx Osteoporosis: No Hx Rheumatoid Arthritis: No - GASTROINTESTINAL Hx Gastrointestinal Disorders: Yes Hx Bowel Surgery: No Hx Colitis: Yes Hx Crohn's Disease: No Hx Diverticulitis: No Hx Gall Bladder Disease: No Hx Gastritis: No Hx Pancreatitis: No - GENITOURINARY/GYNECOLOGICAL Hx Genitourinary Disorders: No Hx Sexually Transmitted Disorders: No - PSYCHIATRIC Hx Psychophysiologic Disorder: Yes Hx Anxiety: Yes Hx Bipolar Disorder: No Hx Depression: No Hx Paranoia: No Hx Post Traumatic Stress Disorder: No Hx Schizophrenia: No Hx Substance Use: No - SURGICAL HISTORY Hx Surgeries: Yes Hx Appendectomy: Yes Hx Carotid Endarterectomy: No Hx Cholecystectomy: Yes Hx Coronary Artery Bypass Graft: No Hx Coronary Stent: No Hx Hysterectomy: Yes Hx Tonsillectomy: Yes - ANESTHESIA Hx Anesthesia: Yes Hx Anesthesia Reactions: No Hx Malignant Hyperthermia: No Meds Allergies/Adverse Reactions: Allergies Allergy/AdvReac Type Severity Reaction Status Date / Time No Known Allergies Allergy Verified 04/22/18 12:04 - Medications Medications: Current Medications Acetaminophen (Tylenol 325mg Tab) 650 mg PO Q4 PRN PRN Reason: Pain, moderate (4-7) Last Admin: 05/16/18 10:08 Dose: 650 mg Amlodipine Besylate (Norvasc) 5 mg PO DAILY [facility] Last Admin: 05/17/18 08:34 Dose: 5 mg Atorvastatin Calcium (Lipitor) 20 mg PO DAILY [facility] Last Admin: 05/17/18 08:33 Dose: 20 mg Calcium Acetate (Phoslo) 667 mg PO TID [facility] Last Admin: 05/17/18 16:37 Dose: 667 mg Clonazepam (Klonopin) 0.5 mg PO Q8 PRN PRN Reason: Anxiety Last Admin: 05/16/18 22:29 Dose: 0.5 mg Diltiazem HCl (Cardizem) 60 mg PO Q6 [facility] Last Admin: 05/17/18 16:51 Dose: Not Given Heparin Sodium (Porcine) (Heparin) 5,000 units SC Q8 [facility]; Protocol Last Admin: 05/17/18 16:37 Dose: 5,000 units Metronidazole (Flagyl 500mg/100ml Ns) 100 mls @ 100 mls/hr IVPB Q8 [facility]; Protocol Last Admin: 05/17/18 16:36 Dose: 100 mls/hr Vancomycin HCl 1 gm/ Sodium (Chloride) 250 mls @ 166.667 mls/hr IVPB MWF [facility]; Protocol Last Admin: 05/17/18 08:42 Dose: 166.667 mls/hr Lisinopril (Zestril) 5 mg PO DAILY [facility] Last Admin: 05/17/18 08:35 Dose: 5 mg Lorazepam (Ativan) 1 mg IV Q6 PRN PRN Reason: Agitation Memantine (Namenda) 5 mg PO DAILY [facility] Last Admin: 05/17/18 08:34 Dose: 5 mg Metronidazole (Flagyl) 500 mg PO Q8 [facility]; Protocol Last Admin: 05/17/18 16:36 Dose: 500 mg Mirtazapine (Remeron) 15 mg PO HS [facility] Last Admin: 05/16/18 21:50 Dose: 15 mg Nystatin (Nystatin Oral Susp) 5 ml PO QID [facility] Last Admin: 05/17/18 16:33 Dose: Not Given Ondansetron HCl (Zofran Inj) 4 mg IVP Q6 PRN PRN Reason: Nausea/Vomiting Last Admin: 05/14/18 06:25 Dose: 4 mg Oxycodone/Acetaminophen (Percocet 5/325 Mg Tab) 1 tab PO Q6 PRN PRN Reason: Pain, severe (8-10) Stop: 05/19/18 13:02 Last Admin: 05/17/18 03:08 Dose: 1 tab Saccharomyces Boulardii (Florastor) 250 mg PO BID [facility] Last Admin: 05/17/18 16:36 Dose: 250 mg Vitamin B Complex/Vit C/Folic Acid (Nephro-Valentino) 1 tab PO DAILY [facility] Last Admin: 05/17/18 08:34 Dose: 1 tab Physical Exam - Constitutional Appears: Well, Non-toxic, No Acute Distress, Chronically Ill - Head Exam Head Exam: ATRAUMATIC, NORMOCEPHALIC - Eye Exam Eye Exam: EOMI - ENT Exam ENT Exam: Mucous Membranes Moist - Respiratory Exam Respiratory Exam: NORMAL BREATHING PATTERN - Cardiovascular Exam Cardiovascular Exam: REGULAR RHYTHM - GI/Abdominal Exam GI & Abdominal Exam: Guarding, Soft, Tenderness. absent: Distended, Firm, Rebound, Rigid - Rectal Exam Rectal Exam: NORMAL INSPECTION. absent: Black Stool, Bloody Stool Additional comments: good rectal tone no masses palpated no BRBPR, no bloody stool or melena - Extremities Exam Extremities exam: Positive for: pedal pulses present. Negative for: calf tender ness, pedal edema - Neurological Exam Neurological exam: Alert Additional comments: oriented to person and place, is unsure of date and incorrect on current president, history of alzheimers dementia - Psychiatric Exam Psychiatric exam: Normal Affect, Normal Mood - Skin Skin Exam: Dry, Intact, Normal Color, Warm Results - Vital Signs Recent Vital Signs: Last Vital Signs Temp 99.1 F 05/17/18 16:08 Pulse 75 05/17/18 16:08 Resp 20 05/17/18 16:08 BP 136/67 05/17/18 16:08 Pulse Ox 98 05/17/18 16:08 - Labs Result Diagrams: 05/16/18 05:25 05/16/18 05:25 Labs: Laboratory Results - last 24 hr 05/17/18 14:56 Lactic Acid 1.0 Assessment & Plan - Assessment and Plan (Free Text) Assessment: 77 yr old female with C. difficile colitis Plan: no surgical intervention at this time continue management with abx per ID recommendations continue IVF replete electrolytes as needed repeat labs in AM we will continue to follow with you Discussed with Dr. Magallanes, all further recs per him Yady Brown, PGY 1 - Date & Time Date: 05/17/18 Time: 14:55 <Luigi Magallanes - Last Filed: 05/18/18 16:37> History of Present Illness - History of Present Illness History of Present Illness: Patient was seen and examined at the bedside. Agree with resident's note above. Meds - Medications Medications: Current Medications Acetaminophen (Tylenol 325mg Tab) 650 mg PO Q4 PRN PRN Reason: Pain, moderate (4-7) Last Admin: 05/16/18 10:08 Dose: 650 mg Amlodipine Besylate (Norvasc) 5 mg PO DAILY [facility] Last Admin: 05/17/18 08:34 Dose: 5 mg Atorvastatin Calcium (Lipitor) 20 mg PO DAILY [facility] Last Admin: 05/18/18 08:54 Dose: 20 mg Calcium Acetate (Phoslo) 667 mg PO TID [facility] Last Admin: 05/18/18 13:09 Dose: 667 mg Clonazepam (Klonopin) 0.5 mg PO Q8 PRN PRN Reason: Anxiety Last Admin: 05/18/18 00:21 Dose: 0.5 mg Diltiazem HCl (Cardizem) 60 mg PO Q6 [facility] Last Admin: 05/18/18 09:00 Dose: 60 mg Heparin Sodium (Porcine) (Heparin) 5,000 units SC Q8 [facility]; Protocol Last Admin: 05/18/18 08:53 Dose: 5,000 units Metronidazole (Flagyl 500mg/100ml Ns) 100 mls @ 100 mls/hr IVPB Q8 [facility]; Protocol Last Admin: 05/18/18 08:52 Dose: 100 mls/hr Vancomycin HCl 1 gm/ Sodium (Chloride) 250 mls @ 166.667 mls/hr IVPB MWF [facility]; Protocol Last Admin: 05/17/18 08:42 Dose: 166.667 mls/hr Lisinopril (Zestril) 5 mg PO DAILY [facility] Last Admin: 05/17/18 08:35 Dose: 5 mg Lorazepam (Ativan) 1 mg IV Q6 PRN PRN Reason: Agitation Memantine (Namenda) 5 mg PO DAILY [facility] Last Admin: 05/17/18 08:34 Dose: 5 mg Mirtazapine (Remeron) 15 mg PO HS [facility] Last Admin: 05/17/18 23:17 Dose: 15 mg Nystatin (Nystatin Oral Susp) 5 ml PO QID [facility] Last Admin: 05/18/18 13:09 Dose: 5 ml Ondansetron HCl (Zofran Inj) 4 mg IVP Q6 PRN PRN Reason: Nausea/Vomiting Last Admin: 05/14/18 06:25 Dose: 4 mg Oxycodone/Acetaminophen (Percocet 5/325 Mg Tab) 1 tab PO Q6 PRN PRN Reason: Pain, severe (8-10) Stop: 05/19/18 13:02 Last Admin: 05/18/18 10:29 Dose: 1 tab Saccharomyces Boulardii (Florastor) 250 mg PO BID [facility] Last Admin: 05/18/18 08:54 Dose: 250 mg Vitamin B Complex/Vit C/Folic Acid (Nephro-Valentino) 1 tab PO DAILY [facility] Last Admin: 05/18/18 08:53 Dose: 1 tab Physical Exam - GI/Abdominal Exam Additional comments: soft, NT, ND, BS+, no rebound, no guarding, well healed lower abdomen scar from prior surgery Results - Vital Signs Recent Vital Signs: Last Vital Signs Temp 98.5 F 05/18/18 15:50 Pulse 77 05/18/18 15:50 Resp 20 05/18/18 15:50 BP 107/56 L 05/18/18 15:50 Pulse Ox 100 05/18/18 15:50 - Labs Result Diagrams: 05/18/18 06:14 05/18/18 06:14 Labs: Laboratory Results - last 24 hr 05/18/18 05/18/18 06:14 06:14 WBC 13.3 H RBC 3.37 L Hgb 9.6 L Hct 29.3 L MCV 87.1 MCH 28.6 MCHC 32.8 L RDW 15.9 H Plt Count 255 MPV 9.0 Neut % (Auto) 80.6 H Lymph % (Auto) 6.5 L Dixie % (Auto) 10.9 H Eos % (Auto) 1.6 Baso % (Auto) 0.4 Neut # (Auto) 10.7 H Lymph # (Auto) 0.9 L Dixie # (Auto) 1.4 H Eos # (Auto) 0.2 Baso # (Auto) 0.1 Neutrophils % (Manual) 83 H Lymphocytes % (Manual) 7 L Monocytes % (Manual) 9 Eosinophils % (Manual) 1 Platelet Estimate Normal Large Platelets Present Hypochromasia (manual) Slight Poikilocytosis (manual Slight Anisocytosis (manual) Slight Microcytosis (manual) Slight Tear Drop Cells Slight Ovalocytes Moderate Sodium 137 Potassium 3.6 Chloride 101 Carbon Dioxide 26 Anion Gap 14 BUN 16 Creatinine 2.8 H Est GFR ( Amer) 20 Est GFR (Non-Af Amer) 16 Random Glucose 104 Calcium 8.0 L Phosphorus 2.9 Magnesium 1.8 Total Bilirubin 0.4 AST 35 ALT 30 Alkaline Phosphatase 56 Total Protein 5.2 L Albumin 2.7 L Globulin 2.5 Albumin/Globulin Ratio 1.1 - Imaging and Cardiology CT scan - abdomen Status: Image reviewed by me, Report reviewed by me Assessment & Plan - Assessment and Plan (Free Text) Plan: - Continue regular diet - Antibiotics as per ID - Repeat labs - Will follow
--- NOTE | 2018-05-17 18:32 | CP.PCM.CON ---
History of Present Illness - History of Present Illness History of Present Illness: I was asked to see patient by Dr Leon. Patient was evaluated 05/17/18 0552 Patient is a 77 year old female with ESRD on HD, moderate who presents with abdominal pain and watery diarrhea. The patient was previously on oral van comycin due to persistent diarrhea and C.Diff. The patient was admitted for further management. She was found to be tachycardic, and in atrial flutter. Previous rhythm was NSR. The patient has no chest pain or palpitiatons. She has responded to IV cardizem and has been converted to PO cardizem. Review of Systems - Constitutional Constitutional: Weakness - EENT Eyes: absent: As Per HPI, Blind Spots, Blurred Vision, Change in Vision, Decreased Night Vision, Diplopia, Discharge, Dry Eye, Exophthalmos, Floaters, Irritation, Itchy Eyes, Loss of Peripheral Vision, Pain, Photophobia, Requires Corrective Lenses, Sees Flashes, Spots in Vision, Tunnel Vision, Other Visual Disturbances, Loss of Vision, Other Ears: absent: As Per HPI, Decreased Hearing, Ear Discharge, Ear Pain, Tinnitus, Abnormal Hearing, Disequilibrium, Dizziness, Other Nose/Mouth/Throat: absent: As Per HPI, Epistaxis, Nasal Congestion, Nasal Discharge, Nasal Obstruction, Nasal Trauma, Nose Pain, Post Nasal Drip, Sinus Pain, Sinus Pressure, Bleeding Gums, Change in Voice, Dental Pain, Dry Mouth, Dysphagia, Halitosis, Hoarsness, Lip Swelling, Mouth Lesions, Mouth Pain, Odynophagia, Sore Throat, Throat Swelling, Tongue Swelling, Facial Pain, Neck Pain, Neck Mass, Other - Cardiovascular Cardiovascular: Rapid Heart Rate - Respiratory Respiratory: absent: As Per HPI, Cough, Dyspnea, Hemoptysis, Dyspnea on Exertion, Wheezing, Snoring, Stridor, Pain on Inspiration, Chest Congestion, Excessive Mucous Production, Change in Mucous Color, Pain with Coughing, Other - Gastrointestinal Gastrointestinal: Abdominal Pain, Diarrhea, Loose Stools - Genitourinary Genitourinary: absent: As Per HPI, Change in Urinary Stream, Difficulty Urinating, Dysuria, Flank Pain, Hematuria, Pyuria, Nocturia, Urinary Incontinence, Urinary Frequency, Urinary Hesitance, Urinary Urgency, Voiding Freq/Small Amts, Freq UTI, Hx Renal/Bladder Calculi, Hx /Renal Surgery, Bladder Distension, Other - Musculoskeletal Musculoskeletal: absent: As Per HPI, Abnormal Gait, Arthralgias, Atrophy, Back P ain, Deformity, Joint Swelling, Limited Range of Motion, Loss of Height, Muscle Cramps, Muscle Weakness, Myalgias, Neck Pain, Numbness, Radiating Pain into Limb, Stiffness, Tingling, Other - Integumentary Integumentary: absent: As Per HPI, Acne, Alopecia, Bleeding Lesions, Change in Hair, Change in Nails, Change in Pigmentation, Changing Lesions, Dry Skin, Er ythema, Furuncle, Hirsutism, Lesions, New Lesions, Non-Healing Lesions, Photosensitivity, Pruritus, Rash, Skin Pain, Skin Ulcer, Sores, Striae, Swelling, Unusual Bruising, Wounds, Jaundice, Other - Neurological Neurological: absent: As Per HPI, Abnormal Gait, Abnormal Hearing, Abnormal Movements, Abnormal Speech, Behavioral Changes, Burning Sensations, Confusion, Convulsions, Disequilibrium, Dizziness, Numbness, Focal Weakness, Frequent Falls, Headaches, Lack of Coordination, Loss of Vision, Memory Loss, Paresthesias, Radicular Pain, Restless Legs, Sensory Deficit, Syncope, Tingling, Tremor, Vertigo, Weakness, Other Visual Disturbances, Other - Psychiatric Psychiatric: absent: As Per HPI, Abnormal Sleep Pattern, Anhedonia, Anxiety, Auditory Hallucinations, Behavioral Changes, Change in Appetite, Change in Libid o, Confusion, Depression, Difficulty Concentrating, Hallucinations, Homicidal Ideation, Hopelessness, Irritability, Memory Loss, Mood Swings, Panic Attacks, Paranoia, Suicidal Ideation, Visual Hallucinations, Tactile Hallucinations, Other - Endocrine Endocrine: absent: As Per HPI, Change in Body Appearance, Change in Libido, Cold Intolorance, Deepening of Voice, Excessive Sweating, Fatigue, Flushing, Heat Intolorance, Increase in Ring/Shoe/Hat Size, Palpitations, Polydipsia, Polyphagia, Polyuria, Other - Hematologic/Lymphatic Hematologic: absent: As Per HPI, Easy Bleeding, Easy Bruising, Lymphadenopathy, Other Past Patient History - Infectious Disease Hx of Infectious Diseases: C.diff - Tetanus Immunizations Tetanus Immunization: Unknown - Past Medical History & Family History Past Medical History?: Yes - Past Social History Smoking Status: Never Smoked - CARDIAC Hx Cardiac Disorders: Yes Hx Congestive Heart Failure: Yes Hx Hypercholesterolemia: Yes Hx Hypertension: Yes - PULMONARY Hx Respiratory Disorders: Yes Hx Pneumonia: Yes - NEUROLOGICAL Hx Neurological Disorder: Yes Hx Alzheimer's Disease: Yes Hx Dementia: Yes - HEENT Hx HEENT Problems: No - RENAL Hx Chronic Kidney Disease: Yes (ESRD) Hx Dialysis: Yes Type of Dialysis Access: AV shunt Date of Last Dialysis Treatment: 05/09/18 - ENDOCRINE/METABOLIC Hx Endocrine Disorders: No Hx Hyperthyroidism: No Hx Hypothyroidism: No - HEMATOLOGICAL/ONCOLOGICAL Hx Blood Disorders: Yes Hx Anemia: Yes - INTEGUMENTARY Hx Dermatological Problems: No - MUSCULOSKELETAL/RHEUMATOLOGICAL Hx Musculoskeletal Disorders: No Hx Arthritis: No Hx Falls: Yes Hx Fractures: No Hx Osteoporosis: No Hx Rheumatoid Arthritis: No - GASTROINTESTINAL Hx Gastrointestinal Disorders: Yes Hx Bowel Surgery: No Hx Colitis: Yes Hx Crohn's Disease: No Hx Diverticulitis: No Hx Gall Bladder Disease: No Hx Gastritis: No Hx Pancreatitis: No - GENITOURINARY/GYNECOLOGICAL Hx Genitourinary Disorders: No Hx Sexually Transmitted Disorders: No - PSYCHIATRIC Hx Psychophysiologic Disorder: Yes Hx Anxiety: Yes Hx Bipolar Disorder: No Hx Depression: No Hx Paranoia: No Hx Post Traumatic Stress Disorder: No Hx Schizophrenia: No Hx Substance Use: No - SURGICAL HISTORY Hx Surgeries: Yes Hx Appendectomy: Yes Hx Carotid Endarterectomy: No Hx Cholecystectomy: Yes Hx Coronary Artery Bypass Graft: No Hx Coronary Stent: No Hx Hysterectomy: Yes Hx Tonsillectomy: Yes - ANESTHESIA Hx Anesthesia: Yes Hx Anesthesia Reactions: No Hx Malignant Hyperthermia: No Meds Allergies/Adverse Reactions: Allergies Allergy/AdvReac Type Severity Reaction Status Date / Time No Known Allergies Allergy Verified 04/22/18 12:04 - Medications Medications: Current Medications Acetaminophen (Tylenol 325mg Tab) 650 mg PO Q4 PRN PRN Reason: Pain, moderate (4-7) Last Admin: 05/16/18 10:08 Dose: 650 mg Amlodipine Besylate (Norvasc) 5 mg PO DAILY [facility] Last Admin: 05/17/18 08:34 Dose: 5 mg Atorvastatin Calcium (Lipitor) 20 mg PO DAILY [facility] Last Admin: 05/17/18 08:33 Dose: 20 mg Calcium Acetate (Phoslo) 667 mg PO TID [facility] Last Admin: 05/17/18 16:37 Dose: 667 mg Clonazepam (Klonopin) 0.5 mg PO Q8 PRN PRN Reason: Anxiety Last Admin: 05/16/18 22:29 Dose: 0.5 mg Diltiazem HCl (Cardizem) 60 mg PO Q6 [facility] Last Admin: 05/17/18 16:51 Dose: Not Given Heparin Sodium (Porcine) (Heparin) 5,000 units SC Q8 [facility]; Protocol Last Admin: 05/17/18 16:37 Dose: 5,000 units Metronidazole (Flagyl 500mg/100ml Ns) 100 mls @ 100 mls/hr IVPB Q8 [facility]; Protocol Last Admin: 05/17/18 16:36 Dose: 100 mls/hr Vancomycin HCl 1 gm/ Sodium (Chloride) 250 mls @ 166.667 mls/hr IVPB MWF [facility]; Protocol Last Admin: 05/17/18 08:42 Dose: 166.667 mls/hr Lisinopril (Zestril) 5 mg PO DAILY [facility] Last Admin: 05/17/18 08:35 Dose: 5 mg Lorazepam (Ativan) 1 mg IV Q6 PRN PRN Reason: Agitation Memantine (Namenda) 5 mg PO DAILY [facility] Last Admin: 05/17/18 08:34 Dose: 5 mg Metronidazole (Flagyl) 500 mg PO Q8 [facility]; Protocol Last Admin: 05/17/18 16:36 Dose: 500 mg Mirtazapine (Remeron) 15 mg PO HS [facility] Last Admin: 05/16/18 21:50 Dose: 15 mg Nystatin (Nystatin Oral Susp) 5 ml PO QID [facility] Last Admin: 05/17/18 16:33 Dose: Not Given Ondansetron HCl (Zofran Inj) 4 mg IVP Q6 PRN PRN Reason: Nausea/Vomiting Last Admin: 05/14/18 06:25 Dose: 4 mg Oxycodone/Acetaminophen (Percocet 5/325 Mg Tab) 1 tab PO Q6 PRN PRN Reason: Pain, severe (8-10) Stop: 05/19/18 13:02 Last Admin: 05/17/18 03:08 Dose: 1 tab Saccharomyces Boulardii (Florastor) 250 mg PO BID [facility] Last Admin: 05/17/18 16:36 Dose: 250 mg Vitamin B Complex/Vit C/Folic Acid (Nephro-Valentino) 1 tab PO DAILY [facility] Last Admin: 05/17/18 08:34 Dose: 1 tab Physical Exam - Constitutional Appears: Non-toxic, Chronically Ill - Head Exam Head Exam: NORMAL INSPECTION - Eye Exam Eye Exam: Normal appearance. absent: Conjunctival injection, Periorbital tenderness, Scleral icterus - ENT Exam ENT Exam: Mucous Membranes Dry, Normal Exam, Normal Oropharynx - Neck Exam Neck exam: Positive for: Full Rom, Normal Inspection. Negative for: Lymphadenopathy, Tenderness, Thyromegaly - Respiratory Exam Respiratory Exam: NORMAL BREATHING PATTERN - Cardiovascular Exam Cardiovascular Exam: Tachycardia, REGULAR RHYTHM, RRR, Systolic Murmur. absent: JVD - GI/Abdominal Exam GI & Abdominal Exam: Normal Bowel Sounds - Rectal Exam Rectal Exam: Deferred - Extremities Exam Extremities exam: Positive for: normal inspection, pedal pulses present. Negative for: pedal edema, tenderness - Back Exam Back exam: NORMAL INSPECTION - Neurological Exam Neurological exam: Alert, Oriented x3 - Psychiatric Exam Psychiatric exam: Normal Affect, Normal Mood - Skin Skin Exam: Dry, Intact, Normal Color Results - Vital Signs Recent Vital Signs: Last Vital Signs Temp 99.1 F 05/17/18 16:08 Pulse 75 05/17/18 16:08 Resp 20 05/17/18 16:08 BP 136/67 05/17/18 16:08 Pulse Ox 98 05/17/18 16:08 - Labs Result Diagrams: 05/16/18 05:25 05/16/18 05:25 Labs: Laboratory Results - last 24 hr 05/17/18 14:56 Lactic Acid 1.0 - EKG Data EKG Interpreted by: Myself Assessment & Plan (1) Atrial flutter Assessment and Plan: currently rate controlled. continue cardizem po. will hold anticoagulation. Status: Acute (2) Aortic stenosis Assessment and Plan: moderate by previous echocardiogram. no evidence of heart failure. medical therapy Status: Acute (3) Hypertension Assessment and Plan: blood pressure control Status: Chronic Priority: High
[2018-05-18] MEDS: metroNIDAZOLE 500mg/100ml NS 100 ML IVPB SCH ×3 (01:18→17:19)
[2018-05-18 06:56] LABS: BASO # 0.1 K/uL (0.0-0.2); BASO % 0.4 % (0.0-2.0); EOS # 0.2 K/uL (0.0-0.7); EOS % 1.6 % (0.0-4.0); HEMOGLOBIN 9.6 g/dL (12.0-16.0); LYMPH # 0.9 K/uL (1.0-4.3); LYMPH % 6.5 % (20.0-40.0); MEAN CELL VOLUME 87.1 fl (81.0-99.0); MEAN CORPUSCULAR HEMOGLOBIN 28.6 pg (27.0-31.0); MEAN CORPUSCULAR HGB CONC 32.8 g/dL (33.0-37.0); MONO # 1.4 K/uL (0.0-0.8); MONO % 10.9 % (0.0-10.0); NEUT # 10.7 K/uL (1.8-7.0); NEUT % 80.6 % (50.0-75.0); PLATELET COUNT 255 K/uL (130-400); RBC 3.37 Mil/uL (3.80-5.20); RED CELL DISTRIBUTION WIDTH 15.9 % (11.5-14.5); WHITE BLOOD COUNT 13.3 K/uL (4.8-10.8)
[2018-05-18 07:29] LABS: ALB/GLOB RATIO 1.1 (1.0-2.1); ALBUMIN 2.7 g/dL (3.5-5.0)
--- NOTE | 2018-05-18 08:03 | CP.PCM.PN ---
<Yady Brown - Last Filed: 05/18/18 08:13> Subjective - Date & Time of Evaluation Date of Evaluation: 05/18/18 Time of Evaluation: 07:20 - Subjective Subjective: General surgery progress note for Dr. Magallanes Patient seen and examined this am at bedside. NAEO per nursing. Patient is resting comfortably and says that her pain is much improved. She endorses 2 normal BM overnight and passing flatus. She otherwise denies ROBERTO, f/c, n/v, CP, SOB, and extremity pain. Objective - Vital Signs/Intake and Output Vital Signs (last 24 hours): Temp Pulse Resp BP Pulse Ox 98.6 F 76 18 135/61 95 05/18/18 06:03 05/18/18 06:03 05/18/18 06:03 05/18/18 06:03 05/18/18 06:03 - Medications Medications: Current Medications Acetaminophen (Tylenol 325mg Tab) 650 mg PO Q4 PRN PRN Reason: Pain, moderate (4-7) Last Admin: 05/16/18 10:08 Dose: 650 mg Amlodipine Besylate (Norvasc) 5 mg PO DAILY [facility] Last Admin: 05/17/18 08:34 Dose: 5 mg Atorvastatin Calcium (Lipitor) 20 mg PO DAILY [facility] Last Admin: 05/17/18 08:33 Dose: 20 mg Calcium Acetate (Phoslo) 667 mg PO TID [facility] Last Admin: 05/17/18 16:37 Dose: 667 mg Clonazepam (Klonopin) 0.5 mg PO Q8 PRN PRN Reason: Anxiety Last Admin: 05/18/18 00:21 Dose: 0.5 mg Diltiazem HCl (Cardizem) 60 mg PO Q6 [facility] Last Admin: 05/18/18 03:48 Dose: 60 mg Heparin Sodium (Porcine) (Heparin) 5,000 units SC Q8 [facility]; Protocol Last Admin: 05/18/18 01:19 Dose: 5,000 units Metronidazole (Flagyl 500mg/100ml Ns) 100 mls @ 100 mls/hr IVPB Q8 [facility]; Protocol Last Admin: 05/18/18 01:18 Dose: 100 mls/hr Vancomycin HCl 1 gm/ Sodium (Chloride) 250 mls @ 166.667 mls/hr IVPB MWF [facility]; Protocol Last Admin: 05/17/18 08:42 Dose: 166.667 mls/hr Lisinopril (Zestril) 5 mg PO DAILY [facility] Last Admin: 05/17/18 08:35 Dose: 5 mg Lorazepam (Ativan) 1 mg IV Q6 PRN PRN Reason: Agitation Memantine (Namenda) 5 mg PO DAILY [facility] Last Admin: 05/17/18 08:34 Dose: 5 mg Metronidazole (Flagyl) 500 mg PO Q8 [facility]; Protocol Last Admin: 05/18/18 01:18 Dose: 500 mg Mirtazapine (Remeron) 15 mg PO HS [facility] Last Admin: 05/17/18 23:17 Dose: 15 mg Nystatin (Nystatin Oral Susp) 5 ml PO QID [facility] Last Admin: 05/17/18 23:16 Dose: 5 ml Ondansetron HCl (Zofran Inj) 4 mg IVP Q6 PRN PRN Reason: Nausea/Vomiting Last Admin: 05/14/18 06:25 Dose: 4 mg Oxycodone/Acetaminophen (Percocet 5/325 Mg Tab) 1 tab PO Q6 PRN PRN Reason: Pain, severe (8-10) Stop: 05/19/18 13:02 Last Admin: 05/17/18 03:08 Dose: 1 tab Saccharomyces Boulardii (Florastor) 250 mg PO BID [facility] Last Admin: 05/17/18 16:36 Dose: 250 mg Vitamin B Complex/Vit C/Folic Acid (Nephro-Valentino) 1 tab PO DAILY [facility] Last Admin: 05/17/18 08:34 Dose: 1 tab - Labs Labs: 05/18/18 06:14 05/18/18 06:14 - Constitutional Appears: Well, Non-toxic, No Acute Distress - Head Exam Head Exam: ATRAUMATIC, NORMOCEPHALIC - Eye Exam Eye Exam: EOMI - ENT Exam ENT Exam: Mucous Membranes Moist - Respiratory Exam Respiratory Exam: NORMAL BREATHING PATTERN - Cardiovascular Exam Cardiovascular Exam: REGULAR RHYTHM - GI/Abdominal Exam GI & Abdominal Exam: Soft. absent: Distended, Guarding, Tenderness - Extremities Exam Extremities Exam: absent: Calf Tenderness, Pedal Edema - Neurological Exam Neurological Exam: Alert, Awake, Oriented x3 (oriented to self and place only) - Psychiatric Exam Psychiatric exam: Normal Affect, Normal Mood - Skin Skin Exam: Dry, Intact, Normal Color, Warm Assessment and Plan - Assessment and Plan (Free Text) Assessment: 77 yr old female with colitis on CT and recent Cdiff colitis Plan: no surgical intervention at this time continue management with abx per ID recommendations continue IVF replete electrolytes as needed repeat labs in AM we will continue to follow with you Discussed with Dr. Magallanes, all further recs per him Yady Brown, PGY 1 <Luigi Magallanes - Last Filed: 05/18/18 16:31> Subjective - Date & Time of Evaluation Time of Evaluation: 15:30 - Subjective Subjective: Patient was seen and examined at the bedside. Agree with resident's note above. Objective - Vital Signs/Intake and Output Vital Signs (last 24 hours): Temp Pulse Resp BP Pulse Ox 98.5 F 77 20 107/56 L 100 05/18/18 15:50 05/18/18 15:50 05/18/18 15:50 05/18/18 15:50 05/18/18 15:50 - Medications Medications: Current Medications Acetaminophen (Tylenol 325mg Tab) 650 mg PO Q4 PRN PRN Reason: Pain, moderate (4-7) Last Admin: 05/16/18 10:08 Dose: 650 mg Amlodipine Besylate (Norvasc) 5 mg PO DAILY [facility] Last Admin: 05/17/18 08:34 Dose: 5 mg Atorvastatin Calcium (Lipitor) 20 mg PO DAILY [facility] Last Admin: 05/18/18 08:54 Dose: 20 mg Calcium Acetate (Phoslo) 667 mg PO TID [facility] Last Admin: 05/18/18 13:09 Dose: 667 mg Clonazepam (Klonopin) 0.5 mg PO Q8 PRN PRN Reason: Anxiety Last Admin: 05/18/18 00:21 Dose: 0.5 mg Diltiazem HCl (Cardizem) 60 mg PO Q6 [facility] Last Admin: 05/18/18 09:00 Dose: 60 mg Heparin Sodium (Porcine) (Heparin) 5,000 units SC Q8 [facility]; Protocol Last Admin: 05/18/18 08:53 Dose: 5,000 units Metronidazole (Flagyl 500mg/100ml Ns) 100 mls @ 100 mls/hr IVPB Q8 [facility]; Protocol Last Admin: 05/18/18 08:52 Dose: 100 mls/hr Vancomycin HCl 1 gm/ Sodium (Chloride) 250 mls @ 166.667 mls/hr IVPB MWF [facility]; Protocol Last Admin: 05/17/18 08:42 Dose: 166.667 mls/hr Lisinopril (Zestril) 5 mg PO DAILY [facility] Last Admin: 05/17/18 08:35 Dose: 5 mg Lorazepam (Ativan) 1 mg IV Q6 PRN PRN Reason: Agitation Memantine (Namenda) 5 mg PO DAILY [facility] Last Admin: 05/17/18 08:34 Dose: 5 mg Mirtazapine (Remeron) 15 mg PO HS [facility] Last Admin: 05/17/18 23:17 Dose: 15 mg Nystatin (Nystatin Oral Susp) 5 ml PO QID [facility] Last Admin: 05/18/18 13:09 Dose: 5 ml Ondansetron HCl (Zofran Inj) 4 mg IVP Q6 PRN PRN Reason: Nausea/Vomiting Last Admin: 05/14/18 06:25 Dose: 4 mg Oxycodone/Acetaminophen (Percocet 5/325 Mg Tab) 1 tab PO Q6 PRN PRN Reason: Pain, severe (8-10) Stop: 05/19/18 13:02 Last Admin: 05/18/18 10:29 Dose: 1 tab Saccharomyces Boulardii (Florastor) 250 mg PO BID [facility] Last Admin: 05/18/18 08:54 Dose: 250 mg Vitamin B Complex/Vit C/Folic Acid (Nephro-Valentino) 1 tab PO DAILY [facility] Last Admin: 05/18/18 08:53 Dose: 1 tab - Labs Labs: 05/18/18 06:14 05/18/18 06:14
[2018-05-18] MEDS: Multivitamin Vitamin B Complex (Nephro-Vite) Tab PO SCH (08:53)
[2018-05-18] MEDS: Nystatin 100,000 Units/ml Oral Susp 5 ml UD PO SCH ×4 (08:53→21:05)
[2018-05-18] MEDS: Saccharomyces Boulardi 250 mg Cap PO SCH ×2 (08:54→17:20)
[2018-05-18 09:25] LABS: EOSINOPHIL 1 % (0-7); LYMPHOCYTE 7 % (20-50); MONOCYTE 9 % (0-10); NEUTROPHIL 83 % (42-75); PLATELET ESTIMATE NORMAL (NORMAL); TOTAL CELLS COUNTED 100
[2018-05-18 09:26] LABS: ANISOCYTOSIS SLIGHT; HYPOCHROMIC SLIGHT; LARGE PLATELETS PRESENT; MICROCYTOSIS SLIGHT; OVALOCYTES MODERATE; POIKILOCYTOSIS SLIGHT; TEARDROP CELLS SLIGHT
[2018-05-18] MEDS: Oxycodone/Acetaminophen 5/325 mg Tab PO PRN (10:29)
--- NOTE | 2018-05-18 11:51 | CP.PCM.PN ---
Subjective - Date & Time of Evaluation Date of Evaluation: 05/18/18 Time of Evaluation: 11:48 - Subjective Subjective: patient staes she feels much better this morning as compared to yesterday denies n/v or diarrhea and abd pain much less tolerating diet as per nursing staff PE: vss afebrile abd - soft with +BS minimal tenderness without distension labs - noted with WBC's decreased today imp/plan : colitis with colonic distension and inflammation on CT scan but clinically she does not appear toxic surgical consult reviewed continue present care Objective - Vital Signs/Intake and Output Vital Signs (last 24 hours): Temp Pulse Resp BP Pulse Ox 98.2 F 94 H 18 139/59 L 97 05/18/18 08:22 05/18/18 09:00 05/18/18 08:22 05/18/18 09:00 05/18/18 08:22 - Medications Medications: Current Medications Acetaminophen (Tylenol 325mg Tab) 650 mg PO Q4 PRN PRN Reason: Pain, moderate (4-7) Last Admin: 05/16/18 10:08 Dose: 650 mg Amlodipine Besylate (Norvasc) 5 mg PO DAILY [facility] Last Admin: 05/17/18 08:34 Dose: 5 mg Atorvastatin Calcium (Lipitor) 20 mg PO DAILY [facility] Last Admin: 05/18/18 08:54 Dose: 20 mg Calcium Acetate (Phoslo) 667 mg PO TID [facility] Last Admin: 05/18/18 08:53 Dose: 667 mg Clonazepam (Klonopin) 0.5 mg PO Q8 PRN PRN Reason: Anxiety Last Admin: 05/18/18 00:21 Dose: 0.5 mg Diltiazem HCl (Cardizem) 60 mg PO Q6 [facility] Last Admin: 05/18/18 09:00 Dose: 60 mg Heparin Sodium (Porcine) (Heparin) 5,000 units SC Q8 [facility]; Protocol Last Admin: 05/18/18 08:53 Dose: 5,000 units Metronidazole (Flagyl 500mg/100ml Ns) 100 mls @ 100 mls/hr IVPB Q8 [facility]; Protocol Last Admin: 05/18/18 08:52 Dose: 100 mls/hr Vancomycin HCl 1 gm/ Sodium (Chloride) 250 mls @ 166.667 mls/hr IVPB MWF [facility]; Protocol Last Admin: 05/17/18 08:42 Dose: 166.667 mls/hr Lisinopril (Zestril) 5 mg PO DAILY [facility] Last Admin: 05/17/18 08:35 Dose: 5 mg Lorazepam (Ativan) 1 mg IV Q6 PRN PRN Reason: Agitation Memantine (Namenda) 5 mg PO DAILY [facility] Last Admin: 05/17/18 08:34 Dose: 5 mg Metronidazole (Flagyl) 500 mg PO Q8 [facility]; Protocol Last Admin: 05/18/18 08:53 Dose: 500 mg Mirtazapine (Remeron) 15 mg PO HS [facility] Last Admin: 05/17/18 23:17 Dose: 15 mg Nystatin (Nystatin Oral Susp) 5 ml PO QID [facility] Last Admin: 05/18/18 08:53 Dose: 5 ml Ondansetron HCl (Zofran Inj) 4 mg IVP Q6 PRN PRN Reason: Nausea/Vomiting Last Admin: 05/14/18 06:25 Dose: 4 mg Oxycodone/Acetaminophen (Percocet 5/325 Mg Tab) 1 tab PO Q6 PRN PRN Reason: Pain, severe (8-10) Stop: 05/19/18 13:02 Last Admin: 05/18/18 10:29 Dose: 1 tab Saccharomyces Boulardii (Florastor) 250 mg PO BID [facility] Last Admin: 05/18/18 08:54 Dose: 250 mg Vitamin B Complex/Vit C/Folic Acid (Nephro-Valentino) 1 tab PO DAILY [facility] Last Admin: 05/18/18 08:53 Dose: 1 tab - Labs Labs: 05/18/18 06:14 05/18/18 06:14
--- NOTE | 2018-05-18 21:43 | CP.PCM.PN ---
Subjective - Date & Time of Evaluation Date of Evaluation: 05/18/18 Time of Evaluation: 13:00 - Subjective Subjective: renal follow up note complains of abdominal pain but better. improved loose stool. no CP/SOB vitals reviewed heent normal thin lady nad heent normal op moist no jvd s12 preesnt no resp distress abd soft with minimal tenderness and no guarding, or rebound no edema alert,, oriented to self. hx of dementia A&P: esrd/diarrhea/hypokalemia/htn/acidosis /colitis/ AFib with RVR hd sun and usually. done on sunday anemia monitor epo as needed monitor phos levels seen by cardiology, on [facility] ID on board Objective - Vital Signs/Intake and Output Vital Signs (last 24 hours): Temp Pulse Resp BP Pulse Ox 98.1 F 75 18 122/61 94 L 05/18/18 20:36 05/18/18 21:04 05/18/18 20:36 05/18/18 21:04 05/18/18 20:36 - Medications Medications: Current Medications Acetaminophen (Tylenol 325mg Tab) 650 mg PO Q4 PRN PRN Reason: Pain, moderate (4-7) Last Admin: 05/16/18 10:08 Dose: 650 mg Amlodipine Besylate (Norvasc) 5 mg PO DAILY [facility] Last Admin: 05/17/18 08:34 Dose: 5 mg Atorvastatin Calcium (Lipitor) 20 mg PO DAILY [facility] Last Admin: 05/18/18 08:54 Dose: 20 mg Calcium Acetate (Phoslo) 667 mg PO TID [facility] Last Admin: 05/18/18 17:19 Dose: 667 mg Clonazepam (Klonopin) 0.5 mg PO Q8 PRN PRN Reason: Anxiety Last Admin: 05/18/18 00:21 Dose: 0.5 mg Diltiazem HCl (Cardizem) 60 mg PO Q6 [facility] Last Admin: 05/18/18 21:04 Dose: 60 mg Heparin Sodium (Porcine) (Heparin) 5,000 units SC Q8 [facility]; Protocol Last Admin: 05/18/18 17:20 Dose: 5,000 units Metronidazole (Flagyl 500mg/100ml Ns) 100 mls @ 100 mls/hr IVPB Q8 [facility]; Protocol Last Admin: 05/18/18 17:19 Dose: 100 mls/hr Vancomycin HCl 1 gm/ Sodium (Chloride) 250 mls @ 166.667 mls/hr IVPB MWF [facility]; Protocol Last Admin: 05/17/18 08:42 Dose: 166.667 mls/hr Lisinopril (Zestril) 5 mg PO DAILY [facility] Last Admin: 05/17/18 08:35 Dose: 5 mg Lorazepam (Ativan) 1 mg IV Q6 PRN PRN Reason: Agitation Memantine (Namenda) 5 mg PO DAILY [facility] Last Admin: 05/18/18 17:20 Dose: Not Given Mirtazapine (Remeron) 15 mg PO HS [facility] Last Admin: 05/18/18 21:05 Dose: 15 mg Nystatin (Nystatin Oral Susp) 5 ml PO QID [facility] Last Admin: 05/18/18 21:05 Dose: 5 ml Ondansetron HCl (Zofran Inj) 4 mg IVP Q6 PRN PRN Reason: Nausea/Vomiting Last Admin: 05/14/18 06:25 Dose: 4 mg Oxycodone/Acetaminophen (Percocet 5/325 Mg Tab) 1 tab PO Q6 PRN PRN Reason: Pain, severe (8-10) Stop: 05/19/18 13:02 Last Admin: 05/18/18 10:29 Dose: 1 tab Saccharomyces Boulardii (Florastor) 250 mg PO BID [facility] Last Admin: 05/18/18 17:20 Dose: 250 mg Vitamin B Complex/Vit C/Folic Acid (Nephro-Valentino) 1 tab PO DAILY [facility] Last Admin: 05/18/18 08:53 Dose: 1 tab - Labs Labs: 05/18/18 06:14 05/18/18 06:14
[2018-05-19] MEDS: Oxycodone/Acetaminophen 5/325 mg Tab PO PRN (01:17)
[2018-05-19] MEDS: metroNIDAZOLE 500mg/100ml NS 100 ML IVPB SCH (01:37)
[2018-05-19 08:07] LABS: BASO # 0.1 K/uL (0.0-0.2); BASO % 0.5 % (0.0-2.0); EOS # 0.2 K/uL (0.0-0.7); EOS % 1.7 % (0.0-4.0); HEMOGLOBIN 9.5 g/dL (12.0-16.0); LYMPH # 1.1 K/uL (1.0-4.3); LYMPH % 9.6 % (20.0-40.0); MEAN CELL VOLUME 89.9 fl (81.0-99.0); MEAN CORPUSCULAR HEMOGLOBIN 28.1 pg (27.0-31.0); MEAN CORPUSCULAR HGB CONC 31.2 g/dL (33.0-37.0); MEAN PLATELET VOLUME 8.8 fl (7.2-11.7); MONO # 1.3 K/uL (0.0-0.8); MONO % 11.3 % (0.0-10.0); NEUT # 8.5 K/uL (1.8-7.0); NEUT % 76.9 % (50.0-75.0); RBC 3.38 Mil/uL (3.80-5.20); RED CELL DISTRIBUTION WIDTH 16.6 % (11.5-14.5); WHITE BLOOD COUNT 11.1 K/uL (4.8-10.8)
--- NOTE | 2018-05-19 08:27 | CP.PCM.PN ---
<Hector Olguin - Last Filed: 05/19/18 08:25> Subjective - Date & Time of Evaluation Date of Evaluation: 05/19/18 Time of Evaluation: 06:45 - Subjective Subjective: Surgery Progress Note- Dr. Magallanes Patient seen and examined at bedside. No acute complaints. Patient feeling significantly better that yesterday. had BM x2 normal. Denies Diarrhea/loose stool. admits to ambulating, voiding freely. Denies fevers, chills, chest pain, shortness of breath, nausea, vomiting, diarrhea Objective - Vital Signs/Intake and Output Vital Signs (last 24 hours): Temp Pulse Resp BP Pulse Ox 99.5 F 97 H 20 103/65 95 05/19/18 05:15 05/19/18 05:15 05/19/18 05:15 05/19/18 05:15 05/19/18 05:15 - Medications Medications: Current Medications Acetaminophen (Tylenol 325mg Tab) 650 mg PO Q4 PRN PRN Reason: Pain, moderate (4-7) Last Admin: 05/16/18 10:08 Dose: 650 mg Amlodipine Besylate (Norvasc) 5 mg PO DAILY [facility] Last Admin: 05/17/18 08:34 Dose: 5 mg Atorvastatin Calcium (Lipitor) 20 mg PO DAILY [facility] Last Admin: 05/18/18 08:54 Dose: 20 mg Calcium Acetate (Phoslo) 667 mg PO TID [facility] Last Admin: 05/18/18 17:19 Dose: 667 mg Clonazepam (Klonopin) 0.5 mg PO Q8 PRN PRN Reason: Anxiety Last Admin: 05/18/18 00:21 Dose: 0.5 mg Diltiazem HCl (Cardizem) 60 mg PO Q6 [facility] Last Admin: 05/19/18 03:57 Dose: 60 mg Heparin Sodium (Porcine) (Heparin) 5,000 units SC Q8 [facility]; Protocol Last Admin: 05/19/18 01:38 EDT Dose: 5,000 units Vancomycin HCl 1 gm/ Sodium (Chloride) 250 mls @ 166.667 mls/hr IVPB MWF [facility]; Protocol Last Admin: 05/17/18 08:42 Dose: 166.667 mls/hr Lisinopril (Zestril) 5 mg PO DAILY [facility] Last Admin: 05/17/18 08:35 Dose: 5 mg Lorazepam (Ativan) 1 mg IV Q6 PRN PRN Reason: Agitation Memantine (Namenda) 5 mg PO DAILY [facility] Last Admin: 05/18/18 17:20 Dose: Not Given Mirtazapine (Remeron) 15 mg PO HS [facility] Last Admin: 05/18/18 21:05 Dose: 15 mg Nystatin (Nystatin Oral Susp) 5 ml PO QID [facility] Last Admin: 05/18/18 21:05 Dose: 5 ml Ondansetron HCl (Zofran Inj) 4 mg IVP Q6 PRN PRN Reason: Nausea/Vomiting Last Admin: 05/14/18 06:25 Dose: 4 mg Oxycodone/Acetaminophen (Percocet 5/325 Mg Tab) 1 tab PO Q6 PRN PRN Reason: Pain, severe (8-10) Stop: 05/19/18 13:02 Last Admin: 05/19/18 01:17 EST Dose: 1 tab Saccharomyces Boulardii (Florastor) 250 mg PO BID [facility] Last Admin: 05/18/18 17:20 Dose: 250 mg Vitamin B Complex/Vit C/Folic Acid (Nephro-Valentino) 1 tab PO DAILY [facility] Last Admin: 05/18/18 08:53 Dose: 1 tab - Labs Labs: 05/19/18 06:00 05/18/18 06:14 - Constitutional Appears: Non-toxic, No Acute Distress - Head Exam Head Exam: ATRAUMATIC - Eye Exam Eye Exam: EOMI. absent: Scleral icterus - ENT Exam ENT Exam: Mucous Membranes Moist - Respiratory Exam Respiratory Exam: NORMAL BREATHING PATTERN. absent: Accessory Muscle Use, Respiratory Distress - Cardiovascular Exam Cardiovascular Exam: REGULAR RHYTHM, +S1, +S2. absent: Bradycardia, Tachycardia - GI/Abdominal Exam GI & Abdominal Exam: Soft, Normal Bowel Sounds. absent: Distended, Firm, Guarding, Rigid, Tenderness, Hernia, Mass, Rebound - Extremities Exam Extremities Exam: absent: Calf Tenderness - Neurological Exam Neurological Exam: Alert, Awake, Oriented x3 - Psychiatric Exam Psychiatric exam: Normal Affect - Skin Skin Exam: Intact, Warm Assessment and Plan - Assessment and Plan (Free Text) Assessment: 77F w/ hx of C.Diff, current results shows no active C.Diff, negative for toxic megacolon Plan: - Abx per ID - monitor BM - regular diet as tolerated - No acute surgical intervention at this time - medical management per primary team - discussed w/ Surgical attending Merchant THOMPSONY2 <Luigi Magallanes - Last Filed: 05/19/18 12:31> Subjective - Date & Time of Evaluation Time of Evaluation: 12:15 - Subjective Subjective: Patient was seen and examined at the bedside. Agree with resident's note above. Objective - Vital Signs/Intake and Output Vital Signs (last 24 hours): Temp Pulse Resp BP Pulse Ox 98.7 F 94 H 18 112/56 L 98 05/19/18 12:14 05/19/18 12:14 05/19/18 12:14 05/19/18 12:14 05/19/18 12:14 - Medications Medications: Current Medications Acetaminophen (Tylenol 325mg Tab) 650 mg PO Q4 PRN PRN Reason: Pain, moderate (4-7) Last Admin: 05/16/18 10:08 Dose: 650 mg Amlodipine Besylate (Norvasc) 5 mg PO DAILY [facility] Last Admin: 05/17/18 08:34 Dose: 5 mg Atorvastatin Calcium (Lipitor) 20 mg PO DAILY [facility] Last Admin: 05/19/18 08:58 Dose: 20 mg Calcium Acetate (Phoslo) 667 mg PO TID [facility] Last Admin: 05/19/18 12:05 Dose: 667 mg Clonazepam (Klonopin) 0.5 mg PO Q8 PRN PRN Reason: Anxiety Last Admin: 05/18/18 00:21 Dose: 0.5 mg Diltiazem HCl (Cardizem) 60 mg PO Q6 [facility] Last Admin: 05/19/18 10:41 Dose: 60 mg Heparin Sodium (Porcine) (Heparin) 5,000 units SC Q8 [facility]; Protocol Last Admin: 05/19/18 08:54 Dose: 5,000 units Vancomycin HCl 1 gm/ Sodium (Chloride) 250 mls @ 166.667 mls/hr IVPB [facility] [place] [place]; Protocol Last Admin: 05/17/18 08:42 Dose: 166.667 mls/hr Lisinopril (Zestril) 5 mg PO DAILY [facility] Last Admin: 05/17/18 08:35 Dose: 5 mg Lorazepam (Ativan) 1 mg IV Q6 PRN PRN Reason: Agitation Memantine (Namenda) 5 mg PO DAILY [facility] Last Admin: 05/19/18 08:58 Dose: 5 mg Metronidazole (Flagyl) 500 mg PO Q8 [facility]; Protocol Last Admin: 05/19/18 11:59 Dose: 500 mg Mirtazapine (Remeron) 15 mg PO HS [facility] Last Admin: 05/18/18 21:05 Dose: 15 mg Nystatin (Nystatin Oral Susp) 5 ml PO QID [facility] Last Admin: 05/19/18 12:05 Dose: 5 ml Ondansetron HCl (Zofran Inj) 4 mg IVP Q6 PRN PRN Reason: Nausea/Vomiting Last Admin: 05/14/18 06:25 Dose: 4 mg Oxycodone/Acetaminophen (Percocet 5/325 Mg Tab) 1 tab PO Q6 PRN PRN Reason: Pain, severe (8-10) Stop: 05/19/18 13:02 Last Admin: 05/19/18 01:17 EST Dose: 1 tab Saccharomyces Boulardii (Florastor) 250 mg PO BID [facility] Last Admin: 05/19/18 08:52 Dose: 250 mg Vitamin B Complex/Vit C/Folic Acid (Nephro-Valentino) 1 tab PO DAILY [facility] Last Admin: 05/19/18 08:59 Dose: 1 tab - Labs Labs: 05/19/18 06:00 05/19/18 06:00 - GI/Abdominal Exam Additional comments: soft, very mildly tender in the left abdomen, ND, BS+, no rebound, no guarding Assessment and Plan - Assessment and Plan (Free Text) Plan: - No general surgery intervention at present time - General surgery will sign off - Please re-consult as needed
[2018-05-19 08:38] LABS: ALB/GLOB RATIO 1.1 (1.0-2.1); ALBUMIN 2.7 g/dL (3.5-5.0)
[2018-05-19] MEDS: Saccharomyces Boulardi 250 mg Cap PO SCH ×2 (08:52→16:21)
[2018-05-19] MEDS: Multivitamin Vitamin B Complex (Nephro-Vite) Tab PO SCH (08:59)
[2018-05-19] MEDS: Nystatin 100,000 Units/ml Oral Susp 5 ml UD PO SCH ×4 (09:00→23:20)
--- NOTE | 2018-05-19 13:22 | CP.PCM.PN ---
Subjective - Date & Time of Evaluation Date of Evaluation: 05/19/18 Time of Evaluation: 07:00 - Subjective Subjective: belly opain less seen by surgery- no toxic megacolon Objective - Vital Signs/Intake and Output Vital Signs (last 24 hours): Temp Pulse Resp BP Pulse Ox 98.7 F 94 H 18 112/56 L 98 05/19/18 12:14 05/19/18 12:14 05/19/18 12:14 05/19/18 12:14 05/19/18 12:14 - Medications Medications: Current Medications Acetaminophen (Tylenol 325mg Tab) 650 mg PO Q4 PRN PRN Reason: Pain, moderate (4-7) Last Admin: 05/16/18 10:08 Dose: 650 mg Amlodipine Besylate (Norvasc) 5 mg PO DAILY [facility] Last Admin: 05/17/18 08:34 Dose: 5 mg Atorvastatin Calcium (Lipitor) 20 mg PO DAILY [facility] Last Admin: 05/19/18 08:58 Dose: 20 mg Calcium Acetate (Phoslo) 667 mg PO TID [facility] Last Admin: 05/19/18 12:05 Dose: 667 mg Clonazepam (Klonopin) 0.5 mg PO Q8 PRN PRN Reason: Anxiety Last Admin: 05/18/18 00:21 Dose: 0.5 mg Diltiazem HCl (Cardizem) 60 mg PO Q6 [facility] Last Admin: 05/19/18 10:41 Dose: 60 mg Heparin Sodium (Porcine) (Heparin) 5,000 units SC Q8 [facility]; Protocol Last Admin: 05/19/18 08:54 Dose: 5,000 units Vancomycin HCl 1 gm/ Sodium (Chloride) 250 mls @ 166.667 mls/hr IVPB MWF [facility]; Protocol Last Admin: 05/17/18 08:42 Dose: 166.667 mls/hr Lisinopril (Zestril) 5 mg PO DAILY [facility] Last Admin: 05/17/18 08:35 Dose: 5 mg Lorazepam (Ativan) 1 mg IV Q6 PRN PRN Reason: Agitation Memantine (Namenda) 5 mg PO DAILY [facility] Last Admin: 05/19/18 08:58 Dose: 5 mg Metronidazole (Flagyl) 500 mg PO Q8 [facility]; Protocol Last Admin: 05/19/18 11:59 Dose: 500 mg Mirtazapine (Remeron) 15 mg PO HS [facility] Last Admin: 05/18/18 21:05 Dose: 15 mg Nystatin (Nystatin Oral Susp) 5 ml PO QID [facility] Last Admin: 05/19/18 12:05 Dose: 5 ml Ondansetron HCl (Zofran Inj) 4 mg IVP Q6 PRN PRN Reason: Nausea/Vomiting Last Admin: 05/14/18 06:25 Dose: 4 mg Saccharomyces Boulardii (Florastor) 250 mg PO BID [facility] Last Admin: 05/19/18 08:52 Dose: 250 mg Vitamin B Complex/Vit C/Folic Acid (Nephro-Valentino) 1 tab PO DAILY [facility] Last Admin: 05/19/18 08:59 Dose: 1 tab - Labs Labs: 05/19/18 06:00 05/19/18 06:00 - Constitutional Appears: Non-toxic, Chronically Ill - Head Exam Head Exam: NORMOCEPHALIC - Eye Exam Eye Exam: absent: Scleral icterus - ENT Exam ENT Exam: Mucous Membranes Dry - Neck Exam Neck Exam: absent: Lymphadenopathy - Respiratory Exam Respiratory Exam: Decreased Breath Sounds - Cardiovascular Exam Cardiovascular Exam: REGULAR RHYTHM, +S1, +S2 - GI/Abdominal Exam GI & Abdominal Exam: Distended, Guarding, Tenderness - Exam Exam: NORMAL INSPECTION - Extremities Exam Extremities Exam: absent: Pedal Edema - Back Exam Back Exam: absent: CVA tenderness (L), CVA tenderness (R) Assessment and Plan (1) C. difficile diarrhea Status: Acute (2) Dehydration Status: Acute (3) Hypokalemia Status: Acute (4) Chronic kidney disease requiring chronic dialysis Status: Acute - Assessment and Plan (Free Text) Assessment: cont iv and po rx for now
--- NOTE | 2018-05-19 18:43 | CP.PCM.PN ---
Subjective - Date & Time of Evaluation Date of Evaluation: 05/19/18 Time of Evaluation: 11:00 - Subjective Subjective: patient seen and examined at bedside. no acute events overnight. abdominal pain improving though still present. Objective - Vital Signs/Intake and Output Vital Signs (last 24 hours): Temp Pulse Resp BP Pulse Ox 98.6 F 80 18 112/58 L 100 05/19/18 15:56 05/19/18 15:56 05/19/18 15:56 05/19/18 15:56 05/19/18 15:56 - Medications Medications: Current Medications Acetaminophen (Tylenol 325mg Tab) 650 mg PO Q4 PRN PRN Reason: Pain, moderate (4-7) Last Admin: 05/16/18 10:08 Dose: 650 mg Amlodipine Besylate (Norvasc) 5 mg PO DAILY [facility] Last Admin: 05/17/18 08:34 Dose: 5 mg Atorvastatin Calcium (Lipitor) 20 mg PO DAILY [facility] Last Admin: 05/19/18 08:58 Dose: 20 mg Calcium Acetate (Phoslo) 667 mg PO TID [facility] Last Admin: 05/19/18 16:22 Dose: 667 mg Clonazepam (Klonopin) 0.5 mg PO Q8 PRN PRN Reason: Anxiety Last Admin: 05/18/18 00:21 Dose: 0.5 mg Diltiazem HCl (Cardizem) 60 mg PO Q6 [facility] Last Admin: 05/19/18 15:45 Dose: 60 mg Heparin Sodium (Porcine) (Heparin) 5,000 units SC Q8 [facility]; Protocol Last Admin: 05/19/18 16:22 Dose: 5,000 units Vancomycin HCl 1 gm/ Sodium (Chloride) 250 mls @ 166.667 mls/hr IVPB [facility] [place]; Protocol Last Admin: 05/17/18 08:42 Dose: 166.667 mls/hr Lisinopril (Zestril) 5 mg PO DAILY [facility] Last Admin: 05/17/18 08:35 Dose: 5 mg Lorazepam (Ativan) 1 mg IV Q6 PRN PRN Reason: Agitation Memantine (Namenda) 5 mg PO DAILY [facility] Last Admin: 05/19/18 08:58 Dose: 5 mg Metronidazole (Flagyl) 500 mg PO Q8 [facility]; Protocol Last Admin: 05/19/18 16:20 Dose: 500 mg Mirtazapine (Remeron) 15 mg PO HS [facility] Last Admin: 05/18/18 21:05 Dose: 15 mg Nystatin (Nystatin Oral Susp) 5 ml PO QID [facility] Last Admin: 05/19/18 16:22 Dose: 5 ml Ondansetron HCl (Zofran Inj) 4 mg IVP Q6 PRN PRN Reason: Nausea/Vomiting Last Admin: 05/14/18 06:25 Dose: 4 mg Saccharomyces Boulardii (Florastor) 250 mg PO BID [facility] Last Admin: 05/19/18 16:21 Dose: 250 mg Vitamin B Complex/Vit C/Folic Acid (Nephro-Valentino) 1 tab PO DAILY [facility] Last Admin: 05/19/18 08:59 Dose: 1 tab - Labs Labs: 05/19/18 06:00 05/19/18 06:00 - Additional Findings Additional findings: - Constitutional Appears: No Acute Distress - Head Exam Head Exam: NORMAL INSPECTION - Respiratory Exam Respiratory Exam: Clear to Auscultation Bilateral - Cardiovascular Exam Cardiovascular Exam: REGULAR RHYTHM, +S1, +S2 - GI/Abdominal Exam GI & Abdominal Exam: Soft. absent: Distended, Tenderness - Extremities Exam Extremities exam: Negative for: pedal edema - Neurological Exam Neurological exam: Alert, CN II-XII Intact, Oriented x3 - Skin Skin Exam: Dry, Warm Assessment and Plan - Assessment and Plan (Free Text) Assessment: 77 yo female with PMH of HTN, ESRD, dementia and CHF admitted due to profuse watery diarrhea and hypokalemia. h/o C diff diarrhea. Plan: - labs reviewed - ID following, recommendations appreciated - nephro following - surgery following - GI following - continue home meds - rest of plan as ordered
[2018-05-20 06:19] VITALS: RESP 18; O2SAT 98
[2018-05-20] MEDS: Saccharomyces Boulardi 250 mg Cap PO SCH (08:22)
[2018-05-20] MEDS: Nystatin 100,000 Units/ml Oral Susp 5 ml UD PO SCH ×2 (08:22→13:24)
[2018-05-20] MEDS: Multivitamin Vitamin B Complex (Nephro-Vite) Tab PO SCH (08:23)
--- NOTE | 2018-05-20 08:43 | CON ---
DATE: 05/16/2018 CONSULTATION REQUESTED BY: Dr. Juan Carlos Del Rio. REASON FOR CONSULTATION: Abdominal pain. HISTORY OF PRESENT ILLNESS: This is a 77-year-old female with history of end-stage renal disease, on dialysis, multiple hospitalizations, found to have recent history of Clostridium difficile watery diarrhea and pain as well. The patient confusion, has discomfort in the left lower quadrant. Diarrhea is multiple times a day, watery, nonbloody; otherwise, lying in bed, in mild abdominal distress. PAST MEDICAL HISTORY: Includes Alzheimer's, anxiety, anemia, C. diff, hypertension, hypercholesterolemia, and . PAST SURGICAL HISTORY: As Above. MEDICATIONS: Have been reviewed. REVIEW OF SYSTEMS: All other systems have been reviewed and negative apart from the HPI. PHYSICAL EXAMINATION: VITAL SIGNS: In the hospital are grossly unremarkable. GENERAL: A pleasant elderly-appearing female, lying in bed comfortably, in no apparent distress. HEENT: Normocephalic and atraumatic. Eyes: Pupils are equally reactive to light bilaterally. No conjunctival pallor or icterus. NECK: Supple. Normal range of motion. No lymphadenopathy appreciated. LUNGS: Coarse breath sounds bilaterally. HEART: S1, S2. Regular rate and rhythm. No murmurs appreciated. ABDOMEN: Soft. Discomfort in left upper and left lower quadrant. Some distention and bowel sounds are present. Some guarding and rebound. RECTAL: Deferred. EXTREMITIES: Pulses felt bilaterally. SKIN: Warm, dry, and intact. NEUROLOGIC: A and O x3. LABORATORY DATA: Labs and radiology have been reviewed. WBC of 14.8, hemoglobin of 10.6, hematocrit 32.6. Lactic acid is normal. LFTs are minimally elevated. ASSESSMENT AND PLAN: This is a 77-year-old female with persistent recurrent Clostridium difficile. Recommend PCR for Clostridium difficile toxin. IV enhanced CT scan for ongoing ischemia and for the abdominal pain. Antibiotics per Infectious Disease, and dialysis as per Renal. Thank you for the consult. Hoang Villeda MD/ PhD cc: Juan Carlos Del Rio MD
[2018-05-20] MEDS ORDERED: Epoetin Alfa 4000 UNIT/ML Inj IV ONE (12:09)
[2018-05-20 12:22] VITALS: BP 160/75; TEMP 97.5
[2018-05-20 13:25] VITALS: PULSE 90
--- NOTE | 2018-05-20 14:11 | CP.PCM.DIS ---
Provider - Provider Date of Admission: 05/16/18 08:35 Attending physician: Juan Carlos Del Rio MD Time Spent in preparation of Discharge (in minutes): 30 Diagnosis - Discharge Diagnosis (1) C. difficile diarrhea Status: Acute (2) Chronic kidney disease, stage V requiring chronic dialysis Status: Chronic Hospital Course - Lab Results Lab Results: Micro Results 05/14/18 Unknown Blood-Venous Blood Culture - Final NO GROWTH AFTER 5 DAYS 05/14/18 Unknown Blood-Venous Gram Stain - Final TEST NOT PERFORMED 05/15/18 06:01 Blood-Venous Blood Culture - Final NO GROWTH AFTER 5 DAYS 05/15/18 06:01 Blood-Venous Gram Stain - Final TEST NOT PERFORMED 05/15/18 13:16 Stool Ova and Parasite Concentrate Exam - Final 05/15/18 13:16 Stool Stool Culture - Final NO SALMONELLA, SHIGELLA OR CAMPYLOBACTER ISOLATED. Most Recent Lab Values WBC 11.1 K/uL (4.8-10.8) H 05/19/18 06:00 RBC 3.38 Mil/uL (3.80-5.20) L 05/19/18 06:00 Hgb 9.5 g/dL (12.0-16.0) L 05/19/18 06:00 Hct 30.4 % (34.0-47.0) L 05/19/18 06:00 MCV 89.9 fl (81.0-99.0) D 05/19/18 06:00 MCH 28.1 pg (27.0-31.0) 05/19/18 06:00 MCHC 31.2 g/dL (33.0-37.0) L 05/19/18 06:00 RDW 16.6 % (11.5-14.5) H 05/19/18 06:00 Plt Count 306 K/uL (130-400) 05/19/18 06:00 MPV 8.8 fl (7.2-11.7) 05/19/18 06:00 Neut % (Auto) 76.9 % (50.0-75.0) H 05/19/18 06:00 Lymph % (Auto) 9.6 % (20.0-40.0) L 05/19/18 06:00 [place] % (Auto) 11.3 % (0.0-10.0) H 05/19/18 06:00 Eos % (Auto) 1.7 % (0.0-4.0) 05/19/18 06:00 Baso % (Auto) 0.5 % (0.0-2.0) 05/19/18 06:00 Neut # (Auto) 8.5 K/uL (1.8-7.0) H 05/19/18 06:00 Lymph # (Auto) 1.1 K/uL (1.0-4.3) 05/19/18 06:00 [place] # (Auto) 1.3 K/uL (0.0-0.8) H 05/19/18 06:00 Eos # (Auto) 0.2 K/uL (0.0-0.7) 05/19/18 06:00 Baso # (Auto) 0.1 K/uL (0.0-0.2) 05/19/18 06:00 Neutrophils % (Manual) 83 % (42-75) H 05/18/18 06:14 Band Neutrophils % 2 % (0-2) 05/13/18 14:17 Lymphocytes % (Manual) 7 % (20-50) L 05/18/18 06:14 Monocytes % (Manual) 9 % (0-10) 05/18/18 06:14 Eosinophils % (Manual) 1 % (0-7) 05/18/18 06:14 Basophils % (Manual) 1 % (0-2) 05/13/18 14:17 Myelocytes % 1 % (0-0) H 05/13/18 14:17 Toxic Granulation Present 05/13/18 14:17 Platelet Estimate Normal (NORMAL) 05/18/18 06:14 Large Platelets Present 05/18/18 06:14 Hypochromasia (manual) Slight 05/18/18 06:14 Poikilocytosis (manual Slight 05/18/18 06:14 Anisocytosis (manual) Slight 05/18/18 06:14 Microcytosis (manual) Slight 05/18/18 06:14 Tear Drop Cells Slight 05/18/18 06:14 Ovalocytes Moderate 05/18/18 06:14 Schistocytes Slight 05/13/18 14:17 Sodium 136 mmol/l (132-148) 05/19/18 06:00 Potassium 3.8 MMOL/L (3.6-5.0) 05/19/18 06:00 Chloride 100 mmol/L (98-107) 05/19/18 06:00 Carbon Dioxide 26 mmol/L (22-30) 05/19/18 06:00 Anion Gap 14 (10-20) 05/19/18 06:00 BUN 24 mg/dl (7-17) H 05/19/18 06:00 Creatinine 4.2 mg/dl (0.7-1.2) H 05/19/18 06:00 Est GFR ( Amer) 12 05/19/18 06:00 Est GFR (Non-Af Amer) 10 05/19/18 06:00 Random Glucose 103 mg/dL (65-105) 05/19/18 06:00 Lactic Acid 1.0 MMOL/L (0.7-2.1) 05/17/18 14:56 Calcium 8.0 mg/dL (8.4-10.2) L 05/19/18 06:00 Phosphorus 2.9 mg/dl (2.5-4.5) 05/18/18 06:14 Magnesium 1.8 MG/DL (1.6-2.3) 05/18/18 06:14 Total Bilirubin 0.5 mg/dl (0.2-1.3) 05/19/18 06:00 AST 42 U/L (14-36) H 05/19/18 06:00 ALT 36 U/L (9-52) 05/19/18 06:00 Alkaline Phosphatase 55 U/L (38-126) 05/19/18 06:00 Total Protein 5.2 G/DL (6.3-8.2) L 05/19/18 06:00 Albumin 2.7 g/dL (3.5-5.0) L 05/19/18 06:00 Globulin 2.5 gm/dL (2.2-3.9) 05/19/18 06:00 Albumin/Globulin Ratio 1.1 (1.0-2.1) 05/19/18 06:00 Procalcitonin 5.58 NG/ML (0.19-0.49) H 05/14/18 05:10 Stool Occult Blood Negative (NEGATIVE) 05/15/18 21:17 C. difficile Tox B Gene Not detected (Not Detected) 05/16/18 10:18 C. difficile Ag & Toxin Negative (NEGATIVE) 05/14/18 08:18 - Hospital Course Hospital Course: 77 year old female with a history of end stage renal disease on HD, multiple recent hospitalizations presented to the ED for diarrhea. Patient was discharged recently from [facility] for C diff colitis. Patient had failure of treatment. Patient was treated during admission, intially refusing HD, then cooperated. Patient was seen by GI, Surgery, and ID. Patient was discharged in stable condition to continue abx orally and IV during dialysis. Discharge Exam - Head Exam Head Exam: NORMOCEPHALIC - Eye Exam Eye Exam: Normal appearance - Respiratory Exam Respiratory Exam: UNREMARKABLE - Cardiovascular Exam Cardiovascular Exam: +S1, +S2 - GI/Abdominal Exam GI & Abdominal Exam: Soft - Neurological Exam Neurological exam: Alert, Oriented x3 - Skin Skin Exam: Normal Color, Warm Discharge Plan - Discharge Medications Prescriptions: diltiaZEM [Cardizem] 60 mg PO Q6 #90 tab metroNIDAZOLE [Flagyl] 500 mg PO Q8 #15 tab Nystatin [Nystatin Oral Susp] 5 ml PO QID #20 [facility] Vancomycin [Vancocin 25 mg/ml (Oral Use)] 125 mg PO QID #24 ml Vancomycin 1gm in NS 250ml [Vancomycin 1gm] 1 gm IVPB MWF #6 bag - Follow Up Plan Condition: STABLE Disposition: HOME/ ROUTINE Instructions: Dehydration, Adult (DC), Clostridium difficile (DC) Additional Instructions: continue dialysis sunday and follow up with and in 1 week Referrals: Fredis Benedict MD [Staff Provider] - Juan Carlos Del Rio MD [Staff Provider] -
--- NOTE | 2018-05-20 16:16 | CP.PCM.PN ---
Subjective - Date & Time of Evaluation Date of Evaluation: 05/20/18 Time of Evaluation: 16:16 - Subjective Subjective: renal follow up note no complains of abdominal pain now. no CP/SOB feels better vitals reviewed heent normal thin lady nad heent normal op moist no jvd s12 preesnt no resp distress abd soft without tenderness and no guarding, or rebound no edema alert,, oriented to self. hx of dementia A&P: esrd/diarrhea/hypokalemia/htn/acidosis /colitis/ AFib with RVR hd mon and thurs usually. will plan for next HD today anemia monitor epo as needed monitor phos levels seen by cardiology, started cardizem for rate control. other BP meds on hold as BP on low side ID following Objective - Vital Signs/Intake and Output Vital Signs (last 24 hours): Temp Pulse Resp BP Pulse Ox 97.5 F L 90 18 160/75 H 98 05/20/18 12:21 05/20/18 13:24 05/20/18 12:21 05/20/18 13:24 05/20/18 12:21 - Labs Labs: 05/19/18 06:00 05/19/18 06:00
--- NOTE | 2018-05-20 19:31 | CP.PCM.PN ---
Subjective - Date & Time of Evaluation Date of Evaluation: 05/18/18 Time of Evaluation: 11:00 - Subjective Subjective: patient seen and examined at bedside. no acute events overnight. abdominal pain improving though still present. Objective - Vital Signs/Intake and Output Vital Signs (last 24 hours): Temp Pulse Resp BP Pulse Ox 97.5 F L 90 18 160/75 H 98 05/20/18 12:21 05/20/18 13:24 05/20/18 12:21 05/20/18 13:24 05/20/18 12:21 - Labs Labs: 05/19/18 06:00 05/19/18 06:00 - Additional Findings Additional findings: - Constitutional Appears: No Acute Distress - Head Exam Head Exam: NORMAL INSPECTION - Respiratory Exam Respiratory Exam: Clear to Auscultation Bilateral - Cardiovascular Exam Cardiovascular Exam: REGULAR RHYTHM, +S1, +S2 - GI/Abdominal Exam GI & Abdominal Exam: Soft. absent: Distended, Tenderness - Extremities Exam Extremities exam: Negative for: pedal edema - Neurological Exam Neurological exam: Alert, CN II-XII Intact, Oriented x3 - Skin Skin Exam: Dry, Warm Assessment and Plan - Assessment and Plan (Free Text) Assessment: 77 yo female with PMH of HTN, ESRD, dementia and CHF admitted due to profuse watery diarrhea h/o C diff diarrhea. Plan: - labs reviewed - ID following, recommendations appreciated - nephro following - surgery following - GI following - continue home meds - rest of plan as ordered
== END 2018-05-20 15:45 | disposition home or self-care (01) | DRG 371 ==
LOC: H.ER 12:32 → H.ERHOLD 15:46 → H.TEL 21:46 → OBSVTOIN 05-16 08:35
PROVIDERS: ADMIT Family Medicine; ATTEND Family Medicine
PROC: 5A1D70Z Performance of Urinary Filtration, Intermittent, Less than 6 Hours Per Day (ICD-10-PCS; 2018-05-15)
PROC: 05HY33Z Insertion of Infusion Device into Upper Vein, Percutaneous Approach (ICD-10-PCS; principal; 2018-05-17)
DX: A04.71 Enterocolitis due to Clostridium difficile, recurrent (principal); N18.6 End stage renal disease; I13.2 Hypertensive heart and chronic kidney disease with heart failure and with stage 5 chronic kidney disease, or end stage renal disease; I48.92 Unspecified atrial flutter; E87.2 Acidosis; E87.1 Hypo-osmolality and hyponatremia; E86.0 Dehydration; G30.9 Alzheimer's disease, unspecified; F02.80 Dementia in other diseases classified elsewhere, unspecified severity, without behavioral disturbance, psychotic disturbance, mood disturbance, and anxiety; I35.0 Nonrheumatic aortic (valve) stenosis; I50.9 Heart failure, unspecified; Z99.2 Dependence on renal dialysis; Z74.01 Bed confinement status; E87.6 Hypokalemia; F41.9 Anxiety disorder, unspecified; R41.0 Disorientation, unspecified; E78.00 Pure hypercholesterolemia, unspecified; D64.9 Anemia, unspecified; I48.91 Unspecified atrial fibrillation

== ENCOUNTER 2018-05-26 08:22 | Inpatient (IN) | payer MEDICARE ==
[2018-05-26 08:27] VITALS: BMI 22.3
[2018-05-26] MEDS ORDERED: Sodium Chloride 0.9% 1,000 ML IV STA (09:02)
--- NOTE | 2018-05-26 09:07 | ED PDOC ---
HPI:Nausea, Vomiting, Diarrhea Time Seen by Provider: 05/26/18 08:44 Chief Complaint (Nursing): GI Problem Chief Complaint (Provider): GI Problem History Per: Patient, Family (daughter) Current Symptoms Are (Timing): Still Present Associated Symptoms: Diarrhea Additional Complaint(s): 77 year old female presents to the ED with daughter for evaluation of x5 episodes a day of worsening diarrhea and left sided abdominal pain. Daughter reports patient was discharged from this hospital on Sunday on antibiotics after being seen for c diff. During visit, patient was intubated because she was s hort of breath since she missed her dialysis appointment. She states patient is weak, not eating or drinking, and missed dialysis on . Patient takes vancomycin and flagyl for c diff. Daughter states patient is coughing with some sputum and is compliant with medications. Denies fever, vomiting, and blood in stool. Warp Yarn Sorter: Dr. Benedict PMD: non provided Past Medical History Reviewed: Historical Data, Nursing Documentation, Vital Signs Vital Signs: Last Vital Signs Temp 97.5 F L 05/26/18 08:28 Pulse 97 H 05/26/18 08:28 Resp 18 05/26/18 08:28 BP 163/67 H 05/26/18 08:28 Pulse Ox 97 05/26/18 08:28 - Medical History PMH: Alzheimer's Disease, Anemia, Anxiety, CHF, Dementia, HTN, Hypercholesterolemia, Pneumonia, End Stage Renal Disease, Chronic Kidney Disease Denies: Arthritis, Asthma, Atrial Fibrillation, Bipolar Disorder, Bronchitis, CAD, Cardia Arrhythmia, COPD, Crohn's Disease, Depression, Diverticulitis, Emphysema, Fractures, Gastritis, Gall Bladder Disease, HIV, Hyperthyroidism, Hypothyroidism, Kidney Stones, Migraine, Mitral Valve Prolapse, Multiple Sclerosis, Osteoporosis, Pancreatitis, Paranoia, Parkinson's Disease, Peripheral Edema, Post Traumatic Stress Disorder, Pulmonary Embolism, Rheumatoid Arthritis, Schizophrenia, Seizures, Sickle Cell Disease, Sexually Transmitted Disease, Sleep Apnea, TIA - Surgical History Surgical History: Appendectomy, Cholecystectomy, Tonsillectomy Denies: CABG, Carotid Endarterectomy, Coronary Stent, Pacemaker - Family History Family History: States: Unknown Family Hx, Hypertension - Immunization History Hx Tetanus Toxoid Vaccination: No Hx Influenza Vaccination: No Hx Pneumococcal Vaccination: No - Home Medications Home Medications: Ambulatory Orders Medication Instructions Recorded Atorvastatin [Lipitor] 20 mg PO DAILY 08/16/16 Labetalol [Trandate] 100 mg PO BID 08/16/16 amLODIPine [Norvasc] 5 mg PO DAILY 08/16/16 Calcium Carbonate [Oscal] 500 mg PO TID 10/16/17 Lisinopril [Zestril] 5 mg PO DAILY 01/24/18 Vitamin B Complex/Vit C/Folic 1 tab PO DAILY tab 04/01/18 [Nephro-Valentino] Memantine [Namenda] 5 mg PO DAILY #30 tab 04/24/18 Mirtazapine [Remeron] 15 mg PO HS #30 tab 04/24/18 Saccharomyces Boulardi [Florastor] 250 mg PO BID #30 cap 04/24/18 Calcium Acetate [Phoslo] 667 mg PO TID 05/13/18 clonazePAM [Klonopin] 0.5 mg PO Q8 PRN 05/13/18 Nystatin [Nystatin Oral Susp] 5 ml PO QID #20 udc 05/20/18 Vancomycin [Vancocin 25 mg/ml 125 mg PO QID #24 ml 05/20/18 (Oral Use)] diltiaZEM [Cardizem] 60 mg PO Q6 #90 tab 05/20/18 metroNIDAZOLE [Flagyl] 500 mg PO Q8 #15 tab 05/20/18 Meloxicam [Mobic] 7.5 mg PO DAILY 05/26/18 - Allergies Allergies/Adverse Reactions: Allergies Allergy/AdvReac Type Severity Reaction Status Date / Time No Known Allergies Allergy Verified 04/22/18 12:04 Review of Systems ROS Statement: Except As Marked, All Systems Reviewed And Found Negative Constitutional: Negative for: Fever, Chills Respiratory: Positive for: Cough Gastrointestinal: Positive for: Abdominal Pain (left sided), Diarrhea (x5 episodes per day). Negative for: Vomiting, Hematochezia Neurological: Positive for: Weakness Physical Exam - Reviewed Nursing Documentation Reviewed: Yes Vital Signs Reviewed: Yes - Physical Exam Appears: Positive for: Non-toxic, No Acute Distress Head Exam: Positive for: ATRAUMATIC, NORMOCEPHALIC Skin: Positive for: Normal Color, Warm, Dry Eye Exam: Positive for: Normal appearance. Negative for: Scleral icterus ENT: Positive for: Other (Tongue dry and beefy red) Neck: Positive for: Normal, Painless ROM Cardiovascular/Chest: Positive for: Regular Rate, Rhythm. Negative for: Murmur Respiratory: Positive for: Decreased Breath Sounds (at left base), Wheezing (scattered) Gastrointestinal/Abdominal: Positive for: Tenderness (Left side mildly tender), Distended (mildly) Extremity: Negative for: Swelling Neurologic/Psych: Positive for: Alert, Oriented, Other (Easily arousable and responsive). Negative for: Motor/Sensory Deficits - Laboratory Results Result Diagrams: 05/26/18 10:05 05/26/18 10:05 - ECG O2 Sat by Pulse Oximetry: 97 (RA) Pulse Ox Interpretation: Normal Medical Decision Making Medical Decision Making: Initial Impression: Dehydration, pneumonia; r/o sepsis Initial Plan: --VBG shock panel --ECG --CMP --Lipase stat --CBC --Chest X-ray --Obstructive series --Sodium chloride 1000mL IV --Blood culture Scribe Attestation: Documented by Atilio Muñoz acting as a scribe for Dione Burks MD. Provider Scribe Attestation: All medical record entries made by the Scribe were at my direction and personally dictated by me. I have reviewed the chart and agree that the record accurately reflects my personal performance of the history, physical exam, medical decision making, and the department course for this patient. I have also personally directed, reviewed, and agree with the discharge instructions and disposition. Disposition - Clinical Impression Clinical Impression: Diarrhea - Patient ED Disposition Is Patient to be Admitted: Yes Doctor Will See Patient In The: Hospital - Disposition Disposition: Transfer of Care Disposition Time: 11:00 Condition: FAIR Forms: [facility] (Guyanese) - POA Present On Arrival: None
--- NOTE | 2018-05-26 09:41 | RAD ---
Date of service: 05/26/2018 PROCEDURE: Radiographs of the chest and abdomen (obstructive series) HISTORY: h/o diarrhea, C-diff COMPARISON: CT scan May 17, 2018, chest x-ray 05/15/2018 TECHNIQUE: AP radiograph of the chest, with upright and supine radiographs of the abdomen. FINDINGS: CHEST: Lungs: There is mild increase in small left pleural effusion with associated compressive atelectasis at the left lung base. Minor right pleural fluid and subsegmental atelectasis are noted. No new upper lobe infiltrates are seen. Cardiovascular: Normal size heart. No pulmonary vascular congestion. Moderate aortic calcification. Pleura: Left pleural effusion. No pneumothorax. Other findings: None. ABDOMEN AND PELVIS: Bowel: There is a nonspecific bowel gas pattern appreciated with some mildly dilated loops of colon identified and some lesser degree minor small-bowel dilatation noted. Findings may be related to the patient's reported colitis. A few scattered air-fluid levels are not excluded. Free air: None. Bones: Degenerative changes of the spine. Other findings: None. IMPRESSION: Nonspecific bowel gas pattern, which may reflect ileus. No gross bowel obstruction is seen. Mild increase in left pleural fluid and atelectasis at the left lung base.
[2018-05-26 10:02] LABS: VENOUS BLOOD GAS PCO2 44 mmHg (40-60); VENOUS BLOOD GAS PO2 37 mm/Hg (30-55)
[2018-05-26 10:20] LABS: BASO # 0.1 K/uL (0.0-0.2); BASO % 1.3 % (0.0-2.0); EOS # 0.1 K/uL (0.0-0.7); EOS % 1.6 % (0.0-4.0); LYMPH % 14.5 % (20.0-40.0); MEAN CELL VOLUME 89.3 fl (81.0-99.0); MEAN CORPUSCULAR HEMOGLOBIN 28.4 pg (27.0-31.0); MEAN CORPUSCULAR HGB CONC 31.8 g/dL (33.0-37.0); MEAN PLATELET VOLUME 8.5 fl (7.2-11.7); MONO # 1.3 K/uL (0.0-0.8); MONO % 18.4 % (0.0-10.0); NEUT # 4.5 K/uL (1.8-7.0); NEUT % 64.2 % (50.0-75.0); NRBC % 0.2 % (0.0-0.0); RBC 3.86 Mil/uL (3.80-5.20)
[2018-05-26 10:50] LABS: ALBUMIN 3.5 g/dL (3.5-5.0); CALCIUM 8.8 mg/dL (8.4-10.2)
[2018-05-26 10:51] LABS: ALB/GLOB RATIO 1.2 (1.0-2.1)
[2018-05-26] MEDS: Nystatin 100,000 Units/ml Oral Susp 5 ml UD PO SCH (22:53)
[2018-05-26] MEDS: Vancomycin 500 mg (Oral/Rectal USE) PO SCH (23:36)
--- NOTE | 2018-05-27 10:13 | CP.PCM.CON ---
History of Present Illness - History of Present Illness History of Present Illness: This patient however is 77 years of age female admitted because of diarrhea and abdominal pain. She is known to me with end-stage renal disease on maintenance hemodialysis as outpatient and she goes to [facility]. Patient known to be noncompliance and she come to the emergency room because she keep missing hemodialysis and she does not go all the time. No vomiting no chest pain reported. Past medical history Recurrent admission just about weekly because she is missing dialysis as outpatient patient has dementia Patient does not remember the time or the day or the month Hypertension End stage renal disease on maintenance hemodialysis that she is not going as outpatient social history not contributory as noted on so many previous admission Review of Systems - Constitutional Constitutional: Anorexia. absent: Chills - EENT Ears: absent: Dizziness Nose/Mouth/Throat: absent: Epistaxis, Sore Throat - Cardiovascular Cardiovascular: Dyspnea on Exertion, Leg Edema. absent: Acrocyanosis, Chest Pain - Respiratory Respiratory: Cough, Chest Congestion. absent: Hemoptysis - Gastrointestinal Gastrointestinal: Abdominal Pain. absent: Coffee Ground Emesis, Melena, Nausea - Genitourinary Genitourinary: Nocturia - Musculoskeletal Musculoskeletal: Muscle Weakness. absent: Numbness - Neurological Neurological: Confusion. absent: Dizziness, Numbness, Focal Weakness - Psychiatric Psychiatric: As Per HPI - Endocrine Endocrine: Fatigue - Hematologic/Lymphatic Hematologic: absent: Easy Bleeding Past Patient History - Infectious Disease Hx of Infectious Diseases: C.diff - Tetanus Immunizations Tetanus Immunization: Unknown - Past Medical History & Family History Past Medical History?: Yes - Past Social History Smoking Status: Never Smoked - CARDIAC Hx Cardiac Disorders: Yes Hx Congestive Heart Failure: Yes Hx Hypercholesterolemia: Yes Hx Hypertension: Yes - PULMONARY Hx Respiratory Disorders: Yes Hx Pneumonia: Yes - NEUROLOGICAL Hx Neurological Disorder: Yes Hx Alzheimer's Disease: Yes Hx Dementia: Yes Hx Dizziness: Yes - HEENT Hx HEENT Problems: No - RENAL Hx Chronic Kidney Disease: Yes Hx Dialysis: Yes Type of Dialysis Access: av FISTULA on the left - ENDOCRINE/METABOLIC Hx Endocrine Disorders: No - HEMATOLOGICAL/ONCOLOGICAL Hx Blood Disorders: No - INTEGUMENTARY Hx Dermatological Problems: No - MUSCULOSKELETAL/RHEUMATOLOGICAL Hx Musculoskeletal Disorders: No Hx Falls: No - GASTROINTESTINAL Hx Gastrointestinal Disorders: Yes Hx Colitis: Yes - GENITOURINARY/GYNECOLOGICAL Hx Genitourinary Disorders: No - PSYCHIATRIC Hx Psychophysiologic Disorder: Yes Hx Anxiety: Yes Hx Substance Use: No - SURGICAL HISTORY Hx Surgeries: Yes Hx Appendectomy: Yes Hx Cholecystectomy: Yes Hx Hysterectomy: Yes Hx Tonsillectomy: Yes Other/Comment: AV FISTULA LEFT ARM - ANESTHESIA Hx Anesthesia: Yes Hx Anesthesia Reactions: No Hx Malignant Hyperthermia: No Has any member of the family had a problem w/ anesthesia?: No Meds Allergies/Adverse Reactions: Allergies Allergy/AdvReac Type Severity Reaction Status Date / Time No Known Allergies Allergy Verified 04/22/18 12:04 - Medications Medications: Current Medications Amlodipine Besylate (Norvasc) 5 mg PO DAILY [facility] Atorvastatin Calcium (Lipitor) 20 mg PO DAILY [facility] Calcium Acetate (Phoslo) 667 mg PO TID [facility] Calcium Carbonate (Oscal) 500 mg PO TID [facility] Clonazepam (Klonopin) 0.5 mg PO Q8 PRN PRN Reason: Anxiety Last Admin: 05/26/18 22:53 Dose: 0.5 mg Diltiazem HCl (Cardizem) 60 mg PO Q6 [facility] Last Admin: 05/27/18 04:17 Dose: 60 mg Labetalol HCl (Trandate) 100 mg PO BID [facility] Lisinopril (Zestril) 5 mg PO DAILY [facility] Memantine (Namenda) 5 mg PO DAILY [facility] Metronidazole (Flagyl) 500 mg PO Q8 [facility]; Protocol Last Admin: 05/27/18 01:00 Dose: 500 mg Mirtazapine (Remeron) 15 mg PO HS [facility] Last Admin: 05/26/18 23:36 Dose: 15 mg Naproxen (Naprosyn Tab) 250 mg PO BID [facility] Nystatin (Nystatin Oral Susp) 5 ml PO QID [facility] Last Admin: 05/26/18 22:53 Dose: 5 ml Saccharomyces Boulardii (Florastor) 250 mg PO BID [facility] Vancomycin HCl (Vancocin (Oral/Rectal Use)) 125 mg PO QID [facility]; Protocol Last Admin: 05/26/18 23:36 Dose: 125 mg Vitamin B Complex/Vit C/Folic Acid (Nephro-Valentino) 1 tab PO DAILY [facility] Physical Exam - Constitutional Appears: No Acute Distress - Eye Exam Eye Exam: Conjunctival injection - ENT Exam ENT Exam: Mucous Membranes Moist - Neck Exam Neck exam: Negative for: Lymphadenopathy - Respiratory Exam Respiratory Exam: NORMAL BREATHING PATTERN. absent: Chest Wall Tenderness - Cardiovascular Exam Cardiovascular Exam: absent: Gallop, JVD, Rubs - GI/Abdominal Exam GI & Abdominal Exam: Normal Bowel Sounds. absent: Guarding - Extremities Exam Extremities exam: Negative for: calf tenderness - Back Exam Back exam: absent: CVA tenderness (L), CVA tenderness (R) - Neurological Exam Neurological exam: Alert, Altered - Psychiatric Exam Psychiatric exam: Anxious Results - Vital Signs Recent Vital Signs: Last Vital Signs Temp 98 F 05/27/18 09:12 Pulse 97 H 05/27/18 09:12 Resp 20 05/27/18 09:12 BP 157/59 H 05/27/18 09:12 Pulse Ox 97 05/27/18 09:12 - Labs Result Diagrams: 05/26/18 10:05 05/26/18 10:05 Labs: Laboratory Results - last 24 hr 05/26/18 05/26/18 05/26/18 10:05 10:05 23:59 WBC 7.0 RBC 3.86 Hgb 11.0 L Hct 34.4 MCV 89.3 MCH 28.4 MCHC 31.8 L RDW 17.0 H Plt Count 405 H MPV 8.5 Neut % (Auto) 64.2 Lymph % (Auto) 14.5 L [place] % (Auto) 18.4 H Eos % (Auto) 1.6 Baso % (Auto) 1.3 Neut # (Auto) 4.5 Lymph # (Auto) 1.0 [place] # (Auto) 1.3 H Eos # (Auto) 0.1 Baso # (Auto) 0.1 Sodium 135 Potassium 4.3 Chloride 99 Carbon Dioxide 24 Anion Gap 16 BUN 44 H Creatinine 7.0 H Est GFR ( Amer) 7 Est GFR (Non-Af Amer) 6 Random Glucose 102 Calcium 8.8 Total Bilirubin 0.7 AST 23 ALT 26 Alkaline Phosphatase 83 Total Protein 6.5 Albumin 3.5 D Globulin 2.9 Albumin/Globulin Ratio 1.2 Lipase 488 H C. difficile Ag & Toxin Negative Assessment & Plan (1) Diarrhea Status: Acute (2) Abdominal pain Status: Acute (3) Accelerated hypertension Status: Acute Priority: High (4) Acute on chronic renal failure Status: Acute Priority: Medium (5) Chronic kidney disease requiring chronic dialysis Assessment and Plan: end stage renal disease [place] admitted with diarrhea and abdominal pain which seems to be subsided completely now Hypertension History of hyperphosphatemia History of secondary hyperparathyroidism History of for anemia Recommendation Plan for hemodialysis shortly Order was given consent was taking. As per primary team patient has ultrasound of the abdomen Continue phosphorus binder and antihypertensive medication. Status: Acute
--- NOTE | 2018-05-27 10:15 | CARD ---
APPROVED REPORT Date of service: 05/26/2018 EKG Measurement Heart [id number] ID [id number] <Conclusion> Sinus rhythm with 1st degree AV block Possible Left atrial enlargement ST & T wave abnormality, consider lateral ischemia Abnormal ECG
[2018-05-27] MEDS: Nystatin 100,000 Units/ml Oral Susp 5 ml UD PO SCH ×4 (10:22→22:51)
[2018-05-27] MEDS: Multivitamin Vitamin B Complex (Nephro-Vite) Tab PO SCH (10:23)
[2018-05-27] MEDS: Calcium Acetate 667 MG Capsule PO SCH ×3 (10:23→18:11)
[2018-05-27] MEDS: Saccharomyces Boulardi 250 mg Cap PO SCH ×2 (10:23→18:08)
[2018-05-27] MEDS: Vancomycin 500 mg (Oral/Rectal USE) PO SCH ×4 (10:30→22:49)
--- NOTE | 2018-05-27 12:29 | US ---
Date of service: 05/27/2018 HISTORY: abd pain elevated lipase COMPARISON: 05/17/2018 CT abdomen and pelvis TECHNIQUE: Sonographic evaluation of the abdomen. FINDINGS: LIVER: Measures 18.5 cm. Normal echogenicity of the liver parenchyma. No mass. No intrahepatic bile duct dilatation.Incidental finding(s): Septated thick walled cyst right hepatic lobe 2 x 2.1 cm. GALLBLADDER: Gallbladder wall edema identified. Pericholecystic fluid identified. COMMON BILE DUCT: Measures 2.9 mm. No stones. No dilatation. PANCREAS: Unremarkable as visualized. No mass. No ductal dilatation. RIGHT KIDNEY: Atrophic right kidney measures 3.4 x 9cm. Normal echogenicity. No calculus, mass, or hydronephrosis. LEFT KIDNEY: Atrophic left kidney measures 3.5 x 9cm. Normal echogenicity. No calculus, mass, or hydronephrosis. Simple cyst 5.1 x 6.1 cm SPLEEN: Normal in size and contour. No mass. AORTA: No aneurysmal dilatation. IVC: Unremarkable. OTHER FINDINGS: None. IMPRESSION: Gallbladder wall edema and trace pericholecystic fluid. Gallstones are not identified nor is there evidence of sonographic Holder's sign. Additional benign and/or incidental findings described above. These were better seen on the recent CT scan.
--- NOTE | 2018-05-27 13:35 | CP.PCM.CON ---
History of Present Illness - History of Present Illness History of Present Illness: 77 year old female with a history of end stage renal disease presents to the ED for diarrhea. Patient was discharged yesterday last week after extensive work up c diff and cultures were all negative - Medical History PMH: Alzheimer's Disease, Anemia, Anxiety, CHF, Dementia, HTN, Hyperch olesterolemia, Pneumonia, End Stage Renal Disease, Chronic Kidney Disease Denies: Arthritis, Asthma, Atrial Fibrillation, Bipolar Disorder, Bronchitis, CAD, Cardia Arrhythmia, COPD, Crohn's Disease, Depression, Diverticulitis, Emphysema, Fractures, Gastritis, Gall Bladder Disease, HIV, Hyperthyroidism, Hypothyroidism, Kidney Stones, Migraine, Mitral Valve Prolapse, Multiple Sclerosis, Osteoporosis, Pancreatitis, Paranoia, Parkinson's Disease, Peripheral Edema, Post Traumatic Stress Disorder, Pulmonary Embolism, Rheumatoid Arthritis, Schizophrenia, Seizures, Sickle Cell Disease, Sexually Transmitted Disease, Sleep Apnea, TIA - Surgical History Surgical History: Appendectomy, Tonsillectomy Denies: CABG, Carotid Endarterectomy, Cholecystectomy, Coronary Stent, Pacemaker Review of Systems - Review of Systems Systems not reviewed;Unavailable: Altered Mental Status All systems: reviewed and no additional remarkable complaints except - Constitutional Constitutional: As Per HPI - EENT Eyes: absent: As Per HPI, Blind Spots, Blurred Vision, Change in Vision, Decreased Night Vision, Diplopia, Discharge, Dry Eye, Exophthalmos, Floaters, Irritation, Itchy Eyes, Loss of Peripheral Vision, Pain, Photophobia, Requires Corrective Lenses, Sees Flashes, Spots in Vision, Tunnel Vision, Other Visual Disturbances, Loss of Vision, Other Ears: absent: As Per HPI, Decreased Hearing, Ear Discharge, Ear Pain, Tinnitus, Abnormal Hearing, Disequilibrium, Dizziness, Other Nose/Mouth/Throat: absent: As Per HPI, Epistaxis, Nasal Congestion, Nasal Discharge, Nasal Obstruction, Nasal Trauma, Nose Pain, Post Nasal Drip, Sinus Pain, Sinus Pressure, Bleeding Gums, Change in Voice, Dental Pain, Dry Mouth, Dysphagia, Halitosis, Hoarsness, Lip Swelling, Mouth Lesions, Mouth Pain, Odynophagia, Sore Throat, Throat Swelling, Tongue Swelling, Facial Pain, Neck Pain, Neck Mass, Other - Breasts Breasts: absent: As Per HPI, Change in Shape, Mass, Pain, Nipple Discharge, Nipple Inversion, Skin Changes, Swelling, Other - Cardiovascular Cardiovascular: absent: As Per HPI, Acrocyanosis, Chest Pain, Chest Pain at Rest, Chest Pain with Activity, Claudication, Diaphoresis, Dyspnea, Dyspnea on Exertion, Edema, Irregular Heart Rhythm, Pain Radiating to Arm/Neck/Jaw, Leg Edema, Leg Ulcers, Lightheadedness, Orthopnea, Palpitations, Paroxysmal Nocturnal Dyspnea, Pedal Edema, Radiating Pain, Rapid Heart Rate, Slow Heart Rate, Syncope, Other - Respiratory Respiratory: absent: As Per HPI, Cough, Dyspnea, Hemoptysis, Dyspnea on Exertion, Wheezing, Snoring, Stridor, Pain on Inspiration, Chest Congestion, Excessive Mucous Production, Change in Mucous Color, Pain with Coughing, Other - Gastrointestinal Gastrointestinal: As Per HPI - Genitourinary Genitourinary: absent: As Per HPI, Change in Urinary Stream, Difficulty Urinating, Dysuria, Flank Pain, Hematuria, Pyuria, Nocturia, Urinary Incontinence, Urinary Frequency, Urinary Hesitance, Urinary Urgency, Voiding Freq/Small Amts, Freq UTI, Hx Renal/Bladder Calculi, Hx /Renal Surgery, Bladder Distension, Other - Reproductive: Female Reproductive:Female: absent: As Per HPI, Amenorrhea, Amenorrhea/ Control, Currently Menstual, Cycle <21 Days, Cycle >35 Days, Cycle Variable, Menses 1-7 Days, Menses >/= 8 Days, Menses Variable, Cycle > 4 Weeks Between, No Menses for 6 Months, Heavy Menses, Light Menses, Normal Menses, Spotting Between Cycles, S/P Hysterectomy, Menopausal, Post Menopausal, Premenarche, Abnormal Vaginal Bleeding, Dysmenorrhea, Dyspareunia, Genital Lesions, Genital Pruritis, Pelvic Pain, Prolapse Symptoms, Sexual Dysfunction, Vaginal Discharge, Vaginal Dryness, Vaginal Odor, Vaginal Pruritis, Other - Menstruation Menstruation: absent: As Per HPI, Amenorrhea, Amenorrhea/ Control, Currently Menstual, Cycle <21 Days, Cycle >35 Days, Cycle Variable, Menses 1-7 Days, Menses >/= 8 Days, Menses Variable, Cycle > 4 Weeks Between, No Menses for 6 Months, Heavy Menses, Light Menses, Normal Menses, Spotting Between Cycles, S/P Hysterectomy, Menopausal, Post Menopausal, Premenarche, Abnormal Vaginal Bleeding, Dysmenorrhea, Other - Musculoskeletal Musculoskeletal: absent: As Per HPI, Abnormal Gait, Arthralgias, Atrophy, Back Pain, Deformity, Joint Swelling, Limited Range of Motion, Loss of Height, Muscle Cramps, Muscle Weakness, Myalgias, Neck Pain, Numbness, Radiating Pain into Limb, Stiffness, Tingling, Other - Integumentary Integumentary: absent: As Per HPI, Acne, Alopecia, Bleeding Lesions, Change in Hair, Change in Nails, Change in Pigmentation, Changing Lesions, Dry Skin, Erythema, Furuncle, Hirsutism, Lesions, New Lesions, Non-Healing Lesions, Photosensitivity, Pruritus, Rash, Skin Pain, Skin Ulcer, Sores, Striae, Swelling, Unusual Bruising, Wounds, Jaundice, Other - Neurological Neurological: As Per HPI - Psychiatric Psychiatric: absent: As Per HPI, Abnormal Sleep Pattern, Anhedonia, Anxiety, Auditory Hallucinations, Behavioral Changes, Change in Appetite, Change in Libido, Confusion, Depression, Difficulty Concentrating, Hallucinations, Homicidal Ideation, Hopelessness, Irritability, Memory Loss, Mood Swings, Panic Attacks, Paranoia, Suicidal Ideation, Visual Hallucinations, Tactile Hallucinations, Other - Endocrine Endocrine: absent: As Per HPI, Change in Body Appearance, Change in Libido, Cold Intolorance, Deepening of Voice, Excessive Sweating, Fatigue, Flushing, Heat Intolorance, Increase in Ring/Shoe/Hat Size, Palpitations, Polydipsia, Polyphagia, Polyuria, Other - Hematologic/Lymphatic Hematologic: absent: As Per HPI, Easy Bleeding, Easy Bruising, Lymphadenopathy, Other Past Patient History - Infectious Disease Hx of Infectious Diseases: C.diff - Tetanus Immunizations Tetanus Immunization: Unknown - Past Medical History & Family History Past Medical History?: Yes - Past Social History Smoking Status: Never Smoked - CARDIAC Hx Cardiac Disorders: Yes Hx Congestive Heart Failure: Yes Hx Hypercholesterolemia: Yes Hx Hypertension: Yes - PULMONARY Hx Respiratory Disorders: Yes Hx Pneumonia: Yes - NEUROLOGICAL Hx Neurological Disorder: Yes Hx Alzheimer's Disease: Yes Hx Dementia: Yes Hx Dizziness: Yes - HEENT Hx HEENT Problems: No - RENAL Hx Chronic Kidney Disease: Yes Hx Dialysis: Yes Type of Dialysis Access: av FISTULA on the left - ENDOCRINE/METABOLIC Hx Endocrine Disorders: No - HEMATOLOGICAL/ONCOLOGICAL Hx Blood Disorders: No - INTEGUMENTARY Hx Dermatological Problems: No - MUSCULOSKELETAL/RHEUMATOLOGICAL Hx Musculoskeletal Disorders: No Hx Falls: No - GASTROINTESTINAL Hx Gastrointestinal Disorders: Yes Hx Colitis: Yes - GENITOURINARY/GYNECOLOGICAL Hx Genitourinary Disorders: No - PSYCHIATRIC Hx Psychophysiologic Disorder: Yes Hx Anxiety: Yes Hx Substance Use: No - SURGICAL HISTORY Hx Surgeries: Yes Hx Appendectomy: Yes Hx Cholecystectomy: Yes Hx Hysterectomy: Yes Hx Tonsillectomy: Yes Other/Comment: AV FISTULA LEFT ARM - ANESTHESIA Hx Anesthesia: Yes Hx Anesthesia Reactions: No Hx Malignant Hyperthermia: No Has any member of the family had a problem w/ anesthesia?: No Meds Allergies/Adverse Reactions: Allergies Allergy/AdvReac Type Severity Reaction Status Date / Time No Known Allergies Allergy Verified 04/22/18 12:04 - Medications Medications: Current Medications Amlodipine Besylate (Norvasc) 5 mg PO DAILY [facility] Last Admin: 05/27/18 10:27 Dose: Not Given Atorvastatin Calcium (Lipitor) 20 mg PO DAILY [facility] Last Admin: 05/27/18 10:28 Dose: 20 mg Calcium Acetate (Phoslo) 667 mg PO TID [facility] Last Admin: 05/27/18 10:23 Dose: 667 mg Calcium Carbonate (Oscal) 500 mg PO TID [facility] Last Admin: 05/27/18 10:29 Dose: 500 mg Clonazepam (Klonopin) 0.5 mg PO Q8 PRN PRN Reason: Anxiety Last Admin: 05/26/18 22:53 Dose: 0.5 mg Diltiazem HCl (Cardizem) 60 mg PO Q6 [facility] Last Admin: 05/27/18 10:26 Dose: Not Given Labetalol HCl (Trandate) 100 mg PO BID [facility] Last Admin: 05/27/18 10:29 Dose: Not Given Lisinopril (Zestril) 5 mg PO DAILY [facility] Last Admin: 05/27/18 10:28 Dose: Not Given Memantine (Namenda) 5 mg PO DAILY [facility] Last Admin: 05/27/18 10:29 Dose: 5 mg Metronidazole (Flagyl) 500 mg PO Q8 [facility]; Protocol Last Admin: 05/27/18 10:24 Dose: 500 mg Mirtazapine (Remeron) 15 mg PO HS [facility] Last Admin: 05/26/18 23:36 Dose: 15 mg Naproxen (Naprosyn Tab) 250 mg PO BID [facility] Last Admin: 05/27/18 10:24 Dose: 250 mg Nystatin (Nystatin Oral Susp) 5 ml PO QID [facility] Last Admin: 05/27/18 10:22 Dose: 5 ml Saccharomyces Boulardii (Florastor) 250 mg PO BID [facility] Last Admin: 05/27/18 10:23 Dose: 250 mg Vancomycin HCl (Vancocin (Oral/Rectal Use)) 125 mg PO QID [facility]; Protocol Last Admin: 05/27/18 10:30 Dose: 125 mg Vitamin B Complex/Vit C/Folic Acid (Nephro-Valentino) 1 tab PO DAILY [facility] Last Admin: 05/27/18 10:23 Dose: 1 tab Physical Exam - Constitutional Appears: Confused, Chronically Ill - Head Exam Head Exam: ATRAUMATIC, NORMOCEPHALIC - Eye Exam Eye Exam: absent: Scleral icterus - ENT Exam ENT Exam: Mucous Membranes Dry - Neck Exam Neck exam: Negative for: Lymphadenopathy - Respiratory Exam Respiratory Exam: Decreased Breath Sounds, Clear to Auscultation Bilateral - Cardiovascular Exam Cardiovascular Exam: REGULAR RHYTHM, +S1, +S2 - GI/Abdominal Exam GI & Abdominal Exam: Diminished Bowel Sounds, Distended, Guarding, Soft. absent: Rebound, Rigid, Tenderness - Rectal Exam Rectal Exam: Deferred - Exam Exam: NORMAL INSPECTION - Extremities Exam Extremities exam: Negative for: pedal edema - Back Exam Back exam: absent: CVA tenderness (L), CVA tenderness (R) - Neurological Exam Neurological exam: Alert, Altered, CN II-XII Intact - Psychiatric Exam Psychiatric exam: Depressed - Skin Skin Exam: Dry, Intact Results - Vital Signs Recent Vital Signs: Last Vital Signs Temp 98 F 05/27/18 09:12 Pulse 97 H 05/27/18 09:12 Resp 20 05/27/18 09:12 BP 157/59 H 05/27/18 09:12 Pulse Ox 97 05/27/18 09:12 - Labs Result Diagrams: 05/26/18 10:05 05/26/18 10:05 Labs: Laboratory Results - last 24 hr 05/26/18 23:59 C. difficile Ag & Toxin Negative Assessment & Plan (1) Diarrhea Status: Acute (2) Abdominal pain Status: Acute (3) Altered mental status Status: Acute (4) CHF (congestive heart failure) Status: Acute Priority: Medium (5) Chronic kidney disease requiring chronic dialysis Status: Acute - Assessment and Plan (Free Text) Assessment: will repeat cultures/ serologies start empiric rx
--- NOTE | 2018-05-28 08:08 | CP.PCM.HP ---
History of Present Illness - History of Present Illness History of Present Illness: This is 77 y/o female with hx of ESRD, HTN admitted for persistent diarrhea despite being on antibiotics for Clostridium colitis. Has been feeling very weak due to persistent diarrhea She has been non compliant with her hemodialysis. Present on Admission - Present on Admission Any Indicators Present on Admission: No History of DVT/PE: No History of Uncontrolled Diabetes: No Urinary Catheter: No Decubitus Ulcer Present: No Review of Systems - Gastrointestinal Gastrointestinal: Diarrhea Past Patient History - Infectious Disease Hx of Infectious Diseases: C.diff - Tetanus Immunizations Tetanus Immunization: Unknown - Past Medical History & Family History Past Medical History?: Yes - Past Social History Smoking Status: Never Smoked - CARDIAC Hx Cardiac Disorders: Yes Hx Congestive Heart Failure: Yes Hx Hypercholesterolemia: Yes Hx Hypertension: Yes - PULMONARY Hx Respiratory Disorders: Yes Hx Pneumonia: Yes - NEUROLOGICAL Hx Neurological Disorder: Yes Hx Alzheimer's Disease: Yes Hx Dementia: Yes Hx Dizziness: Yes - HEENT Hx HEENT Problems: No - RENAL Hx Chronic Kidney Disease: Yes Hx Dialysis: Yes Type of Dialysis Access: av FISTULA on the left - ENDOCRINE/METABOLIC Hx Endocrine Disorders: No - HEMATOLOGICAL/ONCOLOGICAL Hx Blood Disorders: No - INTEGUMENTARY Hx Dermatological Problems: No - MUSCULOSKELETAL/RHEUMATOLOGICAL Hx Musculoskeletal Disorders: No Hx Falls: No - GASTROINTESTINAL Hx Gastrointestinal Disorders: Yes Hx Colitis: Yes - GENITOURINARY/GYNECOLOGICAL Hx Genitourinary Disorders: No - PSYCHIATRIC Hx Psychophysiologic Disorder: Yes Hx Anxiety: Yes Hx Substance Use: No - SURGICAL HISTORY Hx Surgeries: Yes Hx Appendectomy: Yes Hx Cholecystectomy: Yes Hx Hysterectomy: Yes Hx Tonsillectomy: Yes Other/Comment: AV FISTULA LEFT ARM - ANESTHESIA Hx Anesthesia: Yes Hx Anesthesia Reactions: No Hx Malignant Hyperthermia: No Has any member of the family had a problem w/ anesthesia?: No Meds Allergies/Adverse Reactions: Allergies Allergy/AdvReac Type Severity Reaction Status Date / Time No Known Allergies Allergy Verified 04/22/18 12:04 Physical Exam - Eye Exam Eye Exam: Normal appearance - Respiratory Exam Respiratory Exam: Clear to Auscultation Bilateral - Cardiovascular Exam Cardiovascular Exam: REGULAR RHYTHM - GI/Abdominal Exam GI & Abdominal Exam: Normal Bowel Sounds - Neurological Exam Neurological exam: CN II-XII Intact - Psychiatric Exam Psychiatric exam: Normal Mood Results - Vital Signs Recent Vital Signs: Last Vital Signs Temp 98 F 11/13/18 01:44 Pulse 93 H 05/28/18 04:07 Resp 20 05/28/18 01:44 BP 133/63 05/28/18 04:07 Pulse Ox 96 05/28/18 01:44 - Labs Result Diagrams: 05/26/18 10:05 05/26/18 10:05 Assessment & Plan (1) Diarrhea Status: Acute (2) Altered mental status Status: Acute (3) C. difficile diarrhea Status: Acute (4) Chronic kidney disease, stage 5 Status: Acute (5) Hyperlipidemia Status: Acute - Assessment and Plan (Free Text) Plan: Cont meds Hydrate repeat stool for C diff Cont tx renal consult ID consult
--- NOTE | 2018-05-28 08:22 | CP.PCM.PN ---
Subjective - Date & Time of Evaluation Date of Evaluation: 05/27/18 Time of Evaluation: 11:00 - Subjective Subjective: Patient is doing better Still with loose stools Has no fever Has poor appetite Objective - Vital Signs/Intake and Output Vital Signs (last 24 hours): Temp Pulse Resp BP Pulse Ox 98 F 93 H 20 133/63 96 05/28/18 01:44 05/28/18 04:07 05/28/18 01:44 05/28/18 04:07 05/28/18 01:44 - Medications Medications: Current Medications Amlodipine Besylate (Norvasc) 5 mg PO DAILY [facility] Last Admin: 05/27/18 10:27 Dose: Not Given Atorvastatin Calcium (Lipitor) 20 mg PO DAILY [facility] Last Admin: 05/27/18 10:28 Dose: 20 mg Calcium Acetate (Phoslo) 667 mg PO TID [facility] Last Admin: 05/27/18 18:11 Dose: 667 mg Calcium Carbonate (Oscal) 500 mg PO TID [facility] Last Admin: 05/27/18 18:07 Dose: 500 mg Clonazepam (Klonopin) 0.5 mg PO Q8 PRN PRN Reason: Anxiety Last Admin: 05/26/18 22:53 Dose: 0.5 mg Diltiazem HCl (Cardizem) 60 mg PO Q6 [facility] Last Admin: 05/28/18 04:07 Dose: 60 mg Labetalol HCl (Trandate) 100 mg PO BID [facility] Last Admin: 05/27/18 18:11 Dose: Not Given Lisinopril (Zestril) 5 mg PO DAILY [facility] Last Admin: 05/27/18 10:28 Dose: Not Given Memantine (Namenda) 5 mg PO DAILY [facility] Last Admin: 05/27/18 10:29 Dose: 5 mg Mirtazapine (Remeron) 15 mg PO HS [facility] Last Admin: 05/27/18 22:51 Dose: 15 mg Naproxen (Naprosyn Tab) 250 mg PO BID [facility] Last Admin: 05/27/18 18:09 Dose: 250 mg Nystatin (Nystatin Oral Susp) 5 ml PO QID [facility] Last Admin: 05/27/18 22:51 Dose: 5 ml Saccharomyces Boulardii (Florastor) 250 mg PO BID [facility] Last Admin: 05/27/18 18:08 Dose: 250 mg Vancomycin HCl (Vancocin (Oral/Rectal Use)) 125 mg PO QID [facility]; Protocol Last Admin: 05/27/18 22:49 Dose: 125 mg Vitamin B Complex/Vit C/Folic Acid (Nephro-Valentino) 1 tab PO DAILY [facility] Last Admin: 05/27/18 10:23 Dose: 1 tab - Labs Labs: 05/26/18 10:05 05/26/18 10:05 - Head Exam Head Exam: NORMAL INSPECTION - Eye Exam Eye Exam: Normal appearance - ENT Exam ENT Exam: Mucous Membranes Moist - Respiratory Exam Respiratory Exam: Clear to Ausculation Bilateral - Cardiovascular Exam Cardiovascular Exam: REGULAR RHYTHM - GI/Abdominal Exam GI & Abdominal Exam: Normal Bowel Sounds Assessment and Plan (1) Diarrhea Status: Acute (2) Altered mental status Status: Acute (3) C. difficile diarrhea Status: Acute (4) Chronic kidney disease, stage 5 Status: Acute (5) Hyperlipidemia Status: Acute - Assessment and Plan (Free Text) Plan: Cont meds Cont tx Cont HD follow up with ID suggest subacute rehab with HD
[2018-05-28] MEDS: Saccharomyces Boulardi 250 mg Cap PO SCH ×2 (09:19→17:00)
[2018-05-28] MEDS: Nystatin 100,000 Units/ml Oral Susp 5 ml UD PO SCH ×4 (09:21→21:25)
[2018-05-28] MEDS: Multivitamin Vitamin B Complex (Nephro-Vite) Tab PO SCH (09:21)
[2018-05-28] MEDS: Calcium Acetate 667 MG Capsule PO SCH ×3 (09:22→17:01)
[2018-05-28] MEDS: Vancomycin 500 mg (Oral/Rectal USE) PO SCH ×4 (09:23→21:26)
--- NOTE | 2018-05-28 11:18 | CP.PCM.PN ---
Subjective - Date & Time of Evaluation Date of Evaluation: 05/28/18 Time of Evaluation: :18 - Subjective Subjective: patient awake and conscious No diarrhea reported today Vital sign noted to be stable Completed hemodialysis yesterday Objective - Vital Signs/Intake and Output Vital Signs (last 24 hours): Temp Pulse Resp BP Pulse Ox 97.8 F 77 20 168/69 H 98 05/28/18 08:40 05/28/18 09:23 05/28/18 08:40 05/28/18 09:23 05/28/18 08:40 - Medications Medications: Current Medications Amlodipine Besylate (Norvasc) 5 mg PO DAILY [facility] Last Admin: 05/28/18 09:18 Dose: 5 mg Atorvastatin Calcium (Lipitor) 20 mg PO DAILY [facility] Last Admin: 05/28/18 09:20 Dose: 20 mg Calcium Acetate (Phoslo) 667 mg PO TID [facility] Last Admin: 05/28/18 09:22 Dose: 667 mg Calcium Carbonate (Oscal) 500 mg PO TID [facility] Last Admin: 05/28/18 09:16 Dose: 500 mg Clonazepam (Klonopin) 0.5 mg PO Q8 PRN PRN Reason: Anxiety Last Admin: 05/26/18 22:53 Dose: 0.5 mg Diltiazem HCl (Cardizem) 60 mg PO Q6 [facility] Last Admin: 05/28/18 09:22 Dose: 60 mg Labetalol HCl (Trandate) 100 mg PO BID [facility] Last Admin: 05/28/18 09:18 Dose: 100 mg Lisinopril (Zestril) 5 mg PO DAILY [facility] Last Admin: 05/28/18 09:23 Dose: 5 mg Memantine (Namenda) 5 mg PO DAILY [facility] Last Admin: 05/28/18 09:17 Dose: 5 mg Metronidazole (Flagyl) 500 mg PO Q8 [facility]; Protocol Mirtazapine (Remeron) 15 mg PO HS [facility] Last Admin: 05/27/18 22:51 Dose: 15 mg Naproxen (Naprosyn Tab) 250 mg PO BID [facility] Last Admin: 05/28/18 09:17 Dose: 250 mg Nystatin (Nystatin Oral Susp) 5 ml PO QID [facility] Last Admin: 05/28/18 09:21 Dose: 5 ml Saccharomyces Boulardii (Florastor) 250 mg PO BID [facility] Last Admin: 05/28/18 09:19 Dose: 250 mg Vancomycin HCl (Vancocin (Oral/Rectal Use)) 125 mg PO QID [facility]; Protocol Last Admin: 05/28/18 09:23 Dose: 125 mg Vitamin B Complex/Vit C/Folic Acid (Nephro-Valentino) 1 tab PO DAILY [facility] Last Admin: 05/28/18 09:21 Dose: 1 tab - Labs Labs: 05/26/18 10:05 05/26/18 10:05 - Constitutional Appears: No Acute Distress - Eye Exam Eye Exam: Conjunctival injection - ENT Exam ENT Exam: Mucous Membranes Moist - Neck Exam Neck Exam: absent: Lymphadenopathy - Respiratory Exam Respiratory Exam: NORMAL BREATHING PATTERN. absent: Chest Wall Tenderness - Cardiovascular Exam Cardiovascular Exam: absent: Gallop, REGULAR RHYTHM, Rubs - GI/Abdominal Exam GI & Abdominal Exam: Soft, Normal Bowel Sounds - Extremities Exam Extremities Exam: absent: Calf Tenderness - Back Exam Back Exam: absent: CVA tenderness (L), CVA tenderness (R) - Neurological Exam Neurological Exam: Alert, Altered - Psychiatric Exam Psychiatric exam: Normal Affect - Skin Skin Exam: absent: Cyanosis Assessment and Plan (1) Diarrhea Status: Acute (2) Abdominal pain Status: Acute (3) Accelerated hypertension Status: Acute (4) Acute on chronic renal failure Status: Acute (5) Chronic kidney disease requiring chronic dialysis Assessment & Plan: end stage renal disease admitted with diarrhea and abdominal pain which seems to be subsided completely now Hypertension History of hyperphosphatemia History of secondary hyperparathyroidism History of for anemia patient keep missing hemodialysis . Noncompliance patient admitted with diarrhea the plan Continue hemodialysis during this hospital admission Continue phosphorus binders Antihypertensive medication EPO if hemoglobin drop below 11 Status: Acute
[2018-05-29] MEDS: Saccharomyces Boulardi 250 mg Cap PO SCH ×2 (10:10→18:46)
[2018-05-29] MEDS: Multivitamin Vitamin B Complex (Nephro-Vite) Tab PO SCH (10:12)
[2018-05-29] MEDS: Nystatin 100,000 Units/ml Oral Susp 5 ml UD PO SCH ×4 (10:12→22:09)
[2018-05-29] MEDS: Vancomycin 500 mg (Oral/Rectal USE) PO SCH ×4 (10:13→22:08)
--- NOTE | 2018-05-29 12:35 | CP.PCM.PN ---
Subjective - Date & Time of Evaluation Date of Evaluation: 05/29/18 Time of Evaluation: 12:34 - Subjective Subjective: dialysis note she was seen on hemodialysis. Vital signs stable Patient tolerating hemodialysis No chest pain no shortness of breath Objective - Vital Signs/Intake and Output Vital Signs (last 24 hours): Temp Pulse Resp BP Pulse Ox 97.7 F 77 21 141/64 96 05/29/18 08:57 05/29/18 10:10 05/29/18 08:57 05/29/18 10:10 05/29/18 08:57 - Medications Medications: Current Medications Amlodipine Besylate (Norvasc) 5 mg PO DAILY [facility] Last Admin: 05/29/18 10:14 Dose: Not Given Atorvastatin Calcium (Lipitor) 20 mg PO DAILY [facility] Last Admin: 05/29/18 10:11 Dose: 20 mg Calcium Acetate (Phoslo) 667 mg PO TID [facility] Last Admin: 05/29/18 10:20 Dose: 667 mg Calcium Carbonate (Oscal) 500 mg PO TID [facility] Last Admin: 05/29/18 10:12 Dose: 500 mg Clonazepam (Klonopin) 0.5 mg PO Q8 PRN PRN Reason: Anxiety Last Admin: 05/26/18 22:53 Dose: 0.5 mg Diltiazem HCl (Cardizem) 60 mg PO Q6 [facility] Last Admin: 05/29/18 10:10 Dose: 60 mg Labetalol HCl (Trandate) 100 mg PO BID [facility] Last Admin: 05/29/18 10:13 Dose: Not Given Lisinopril (Zestril) 5 mg PO DAILY [facility] Last Admin: 05/29/18 10:14 Dose: Not Given Memantine (Namenda) 5 mg PO DAILY [facility] Last Admin: 05/29/18 10:11 Dose: 5 mg Metronidazole (Flagyl) 500 mg PO Q8 [facility]; Protocol Last Admin: 05/29/18 10:10 Dose: 500 mg Mirtazapine (Remeron) 15 mg PO HS [facility] Last Admin: 05/28/18 21:25 Dose: 15 mg Naproxen (Naprosyn Tab) 250 mg PO BID [facility] Last Admin: 05/29/18 10:11 Dose: 250 mg Nystatin (Nystatin Oral Susp) 5 ml PO QID [facility] Last Admin: 05/29/18 10:12 Dose: 5 ml Saccharomyces Boulardii (Florastor) 250 mg PO BID [facility] Last Admin: 05/29/18 10:10 Dose: 250 mg Vancomycin HCl (Vancocin (Oral/Rectal Use)) 125 mg PO QID [facility]; Protocol Vitamin B Complex/Vit C/Folic Acid (Nephro-Valentino) 1 tab PO DAILY [facility] Last Admin: 05/29/18 10:12 Dose: 1 tab - Labs Labs: 05/26/18 10:05 05/26/18 10:05 - Constitutional Appears: No Acute Distress - Eye Exam Eye Exam: Conjunctival injection - ENT Exam ENT Exam: Mucous Membranes Moist - Neck Exam Neck Exam: absent: Lymphadenopathy - Respiratory Exam Respiratory Exam: NORMAL BREATHING PATTERN - Cardiovascular Exam Cardiovascular Exam: absent: Gallop, REGULAR RHYTHM, Rubs - Extremities Exam Extremities Exam: absent: Calf Tenderness - Back Exam Back Exam: absent: CVA tenderness (L), CVA tenderness (R) - Neurological Exam Neurological Exam: Alert, Altered - Skin Skin Exam: absent: Cyanosis Assessment and Plan (1) Diarrhea Status: Acute (2) Abdominal pain Status: Acute (3) Accelerated hypertension Status: Acute (4) Acute on chronic renal failure Status: Acute (5) Chronic kidney disease requiring chronic dialysis Assessment & Plan: end stage renal disease patient receiving hemodialysis now. Discussed with the dialysis nurse at the bedside. Patient tolerating okay. admitted with diarrhea and abdominal pain which seems to be subsided completely now Hypertension History of hyperphosphatemia History of secondary hyperparathyroidism History of for anemia patient keep missing hemodialysis . Noncompliance patient admitted with diarrhea the plan Continue hemodialysis during this hospital admission Continue phosphorus binders Antihypertensive medication EPO if hemoglobin drop below 11 Status: Acute
--- NOTE | 2018-05-29 13:11 | CP.PCM.PN ---
Subjective - Date & Time of Evaluation Date of Evaluation: 05/29/18 Time of Evaluation: 08:00 - Subjective Subjective: confused nad afeb Objective - Vital Signs/Intake and Output Vital Signs (last 24 hours): Temp Pulse Resp BP Pulse Ox 97.7 F 77 21 141/64 96 05/29/18 08:57 05/29/18 10:10 05/29/18 08:57 05/29/18 10:10 05/29/18 08:57 - Medications Medications: Current Medications Amlodipine Besylate (Norvasc) 5 mg PO DAILY [facility] Last Admin: 05/29/18 10:14 Dose: Not Given Atorvastatin Calcium (Lipitor) 20 mg PO DAILY [facility] Last Admin: 05/29/18 10:11 Dose: 20 mg Calcium Acetate (Phoslo) 667 mg PO TID [facility] Last Admin: 05/29/18 10:20 Dose: 667 mg Calcium Carbonate (Oscal) 500 mg PO TID [facility] Last Admin: 05/29/18 10:12 Dose: 500 mg Clonazepam (Klonopin) 0.5 mg PO Q8 PRN PRN Reason: Anxiety Last Admin: 05/26/18 22:53 Dose: 0.5 mg Diltiazem HCl (Cardizem) 60 mg PO Q6 [facility] Last Admin: 05/29/18 10:10 Dose: 60 mg Labetalol HCl (Trandate) 100 mg PO BID [facility] Last Admin: 05/29/18 10:13 Dose: Not Given Lisinopril (Zestril) 5 mg PO DAILY [facility] Last Admin: 05/29/18 10:14 Dose: Not Given Memantine (Namenda) 5 mg PO DAILY [facility] Last Admin: 05/29/18 10:11 Dose: 5 mg Metronidazole (Flagyl) 500 mg PO Q8 [facility]; Protocol Last Admin: 05/29/18 10:10 Dose: 500 mg Mirtazapine (Remeron) 15 mg PO HS [facility] Last Admin: 05/28/18 21:25 Dose: 15 mg Naproxen (Naprosyn Tab) 250 mg PO BID [facility] Last Admin: 05/29/18 10:11 Dose: 250 mg Nystatin (Nystatin Oral Susp) 5 ml PO QID [facility] Last Admin: 05/29/18 10:12 Dose: 5 ml Saccharomyces Boulardii (Florastor) 250 mg PO BID [facility] Last Admin: 05/29/18 10:10 Dose: 250 mg Vancomycin HCl (Vancocin (Oral/Rectal Use)) 125 mg PO QID [facility]; Protocol Vitamin B Complex/Vit C/Folic Acid (Nephro-Valentino) 1 tab PO DAILY [facility] Last Admin: 05/29/18 10:12 Dose: 1 tab - Labs Labs: 05/26/18 10:05 05/26/18 10:05 - Constitutional Appears: Non-toxic, Chronically Ill - Head Exam Head Exam: NORMOCEPHALIC - Eye Exam Eye Exam: absent: Scleral icterus - ENT Exam ENT Exam: Mucous Membranes Dry - Neck Exam Neck Exam: absent: Lymphadenopathy - Respiratory Exam Respiratory Exam: Decreased Breath Sounds - Cardiovascular Exam Cardiovascular Exam: REGULAR RHYTHM - GI/Abdominal Exam GI & Abdominal Exam: Soft - Rectal Exam Rectal Exam: Deferred - Extremities Exam Extremities Exam: absent: Pedal Edema - Back Exam Back Exam: absent: CVA tenderness (L), CVA tenderness (R) Assessment and Plan (1) Diarrhea Status: Acute (2) Abdominal pain Status: Acute (3) Altered mental status Status: Acute (4) CHF (congestive heart failure) Status: Acute (5) Chronic kidney disease requiring chronic dialysis Status: Acute
[2018-05-30 08:03] VITALS: BP 152/71; PULSE 81; RESP 19; TEMP 98.4; O2SAT 95
[2018-05-30] MEDS: Saccharomyces Boulardi 250 mg Cap PO SCH (09:22)
[2018-05-30] MEDS: Nystatin 100,000 Units/ml Oral Susp 5 ml UD PO SCH (09:23)
[2018-05-30] MEDS: Multivitamin Vitamin B Complex (Nephro-Vite) Tab PO SCH (09:23)
[2018-05-30] MEDS: Vancomycin 500 mg (Oral/Rectal USE) PO SCH (09:25)
--- NOTE | 2018-05-30 10:44 | CP.PCM.PN ---
Subjective - Date & Time of Evaluation Date of Evaluation: 05/30/18 Time of Evaluation: 10:42 - Subjective Subjective: patient feeling good no changes vital signs stable no nausea or vomiting Objective - Vital Signs/Intake and Output Vital Signs (last 24 hours): Temp Pulse Resp BP Pulse Ox 98.4 F 81 19 152/71 H 95 05/30/18 08:03 05/30/18 09:25 05/30/18 08:03 05/30/18 09:25 05/30/18 08:03 - Medications Medications: Current Medications Acetaminophen (Tylenol 325mg Tab) 650 mg PO Q6 PRN PRN Reason: Pain, moderate (4-7) Last Admin: 05/30/18 06:39 Dose: 650 mg Amlodipine Besylate (Norvasc) 5 mg PO DAILY [facility] Last Admin: 05/30/18 09:23 Dose: 5 mg Atorvastatin Calcium (Lipitor) 20 mg PO DAILY [facility] Last Admin: 05/30/18 09:22 Dose: 20 mg Calcium Acetate (Phoslo) 667 mg PO TID [facility] Last Admin: 05/29/18 17:16 Dose: 667 mg Calcium Carbonate (Oscal) 500 mg PO TID [facility] Last Admin: 05/30/18 09:23 Dose: 500 mg Clonazepam (Klonopin) 0.5 mg PO Q8 PRN PRN Reason: Anxiety Last Admin: 05/26/18 22:53 Dose: 0.5 mg Diltiazem HCl (Cardizem) 60 mg PO Q6 [facility] Last Admin: 05/30/18 09:21 Dose: 60 mg Labetalol HCl (Trandate) 100 mg PO BID [facility] Last Admin: 05/30/18 09:24 Dose: 100 mg Lisinopril (Zestril) 5 mg PO DAILY [facility] Last Admin: 05/30/18 09:25 Dose: 5 mg Memantine (Namenda) 5 mg PO DAILY [facility] Last Admin: 05/30/18 09:22 Dose: 5 mg Metronidazole (Flagyl) 500 mg PO Q8 [facility]; Protocol Last Admin: 05/30/18 09:22 Dose: 500 mg Mirtazapine (Remeron) 15 mg PO HS [facility] Last Admin: 05/29/18 22:09 Dose: 15 mg Naproxen (Naprosyn Tab) 250 mg PO BID [facility] Last Admin: 05/30/18 09:22 Dose: 250 mg Nystatin (Nystatin Oral Susp) 5 ml PO QID [facility] Last Admin: 05/30/18 09:23 Dose: 5 ml Saccharomyces Boulardii (Florastor) 250 mg PO BID [facility] Last Admin: 05/30/18 09:22 Dose: 250 mg Vancomycin HCl (Vancocin (Oral/Rectal Use)) 125 mg PO QID [facility]; Protocol Last Admin: 05/30/18 09:25 Dose: 125 mg Vitamin B Complex/Vit C/Folic Acid (Nephro-Valentino) 1 tab PO DAILY [facility] Last Admin: 05/30/18 09:23 Dose: 1 tab - Labs Labs: 05/26/18 10:05 05/26/18 10:05 - Constitutional Appears: No Acute Distress - Eye Exam Eye Exam: Conjunctival injection - ENT Exam ENT Exam: Mucous Membranes Moist - Neck Exam Neck Exam: absent: Lymphadenopathy - Respiratory Exam Respiratory Exam: NORMAL BREATHING PATTERN. absent: Chest Wall Tenderness - GI/Abdominal Exam GI & Abdominal Exam: Soft, Normal Bowel Sounds - Extremities Exam Extremities Exam: absent: Calf Tenderness - Back Exam Back Exam: absent: CVA tenderness (L), CVA tenderness (R) - Neurological Exam Neurological Exam: Alert - Psychiatric Exam Psychiatric exam: Normal Affect - Skin Skin Exam: absent: Cyanosis Assessment and Plan (1) Diarrhea Status: Acute (2) Abdominal pain Status: Acute (3) Accelerated hypertension Status: Acute (4) Acute on chronic renal failure Status: Acute (5) Chronic kidney disease requiring chronic dialysis Assessment & Plan: end stage renal disease admitted with diarrhea and abdominal pain which seems to be subsided completely now Hypertension History of hyperphosphatemia History of secondary hyperparathyroidism History of for anemia patient keep missing hemodialysis . Noncompliance patient admitted with diarrhea the plan Continue hemodialysis Continue phosphorus binders Antihypertensive medication EPO if hemoglobin drop below 11 Status: Acute
== END 2018-05-30 12:22 | disposition home or self-care (01) | DRG 371 ==
LOC: H.ER 08:22 → H.ERHOLD 11:29 → H.MEDSURG1 17:00
PROVIDERS: ADMIT Family Medicine; ATTEND Family Medicine
PROC: 5A1D70Z Performance of Urinary Filtration, Intermittent, Less than 6 Hours Per Day (ICD-10-PCS; principal; 2018-05-28)
PROC: 5A1D70Z Performance of Urinary Filtration, Intermittent, Less than 6 Hours Per Day (ICD-10-PCS; 2018-05-29)
DX: A04.72 Enterocolitis due to Clostridium difficile, not specified as recurrent (principal); N18.6 End stage renal disease; I13.2 Hypertensive heart and chronic kidney disease with heart failure and with stage 5 chronic kidney disease, or end stage renal disease; N17.9 Acute kidney failure, unspecified; N25.81 Secondary hyperparathyroidism of renal origin; I50.9 Heart failure, unspecified; E86.0 Dehydration; G30.9 Alzheimer's disease, unspecified; F02.80 Dementia in other diseases classified elsewhere, unspecified severity, without behavioral disturbance, psychotic disturbance, mood disturbance, and anxiety; E78.00 Pure hypercholesterolemia, unspecified; D64.9 Anemia, unspecified; E78.5 Hyperlipidemia, unspecified; Z91.15 Patient's noncompliance with renal dialysis; Z99.2 Dependence on renal dialysis; Z91.19 Patient's noncompliance with other medical treatment and regimen; Z87.01 Personal history of pneumonia (recurrent)

== ENCOUNTER 2018-07-10 10:54 | Inpatient (IN) | payer MEDICARE ==
[2018-07-10 11:04] VITALS: BMI 17.2
[2018-07-10] MEDS ORDERED: Piperacillin/Tazobact 3.375 GM in Sodium Chloride 0.9% 100 ML IVPB STA (12:16)
--- NOTE | 2018-07-10 12:20 | ED PDOC ---
HPI: Abdomen Time Seen by Provider: 07/10/18 11:58 Chief Complaint (Nursing): GI Problem Chief Complaint (Provider): GI Problem History Per: Patient History/Exam Limitations: no limitations Onset/Duration Of Symptoms: Days (x2 weeks) Associated Symptoms: denies: Fever Additional Complaint(s): Saba Cohen is a 77 year old female with a past medical history of HTN, ankita ntia, CHF, and PNA, who presents to the emergency department with family for rectal pain that has been chronic over past x2 weeks. 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 Admission and surgery was recommended but patient opted to leave. She denies having any fever. PMD: Dr. Dumont Past Medical History Reviewed: Historical Data, Nursing Documentation, Vital Signs Vital Signs: Last Vital Signs Temp 96 F L 07/10/18 11:03 Pulse 112 H 07/10/18 11:03 Resp 22 07/10/18 11:03 BP 123/66 07/10/18 11:03 Pulse Ox 99 07/10/18 11:03 - Medical History PMH: Alzheimer's Disease, Anemia, Anxiety, CHF, Dementia, HTN, Hypercholesterolemia, Pneumonia, End Stage Renal Disease, Chronic Kidney Disease Denies: Arthritis, Asthma, Atrial Fibrillation, Bipolar Disorder, Bronchitis, CAD, Cardia Arrhythmia, COPD, Crohn's Disease, Depression, Diverticulitis, Emphysema, Fractures, Gastritis, Gall Bladder Disease, HIV, Hyperthyroidism, Hypothyroidism, Kidney Stones, Migraine, Mitral Valve Prolapse, Multiple Sclerosis, Osteoporosis, Pancreatitis, Paranoia, Parkinson's Disease, Peripheral Edema, Post Traumatic Stress Disorder, Pulmonary Embolism, Rheumatoid Arthritis, Schizophrenia, Seizures, Sickle Cell Disease, Sexually Transmitted Disease, Sleep Apnea, TIA - Surgical History Surgical History: Appendectomy, Cholecystectomy, Tonsillectomy Denies: CABG, Carotid Endarterectomy, Coronary Stent, Pacemaker - Family History Family History: States: Unknown Family Hx, Hypertension - Immunization History Hx Tetanus Toxoid Vaccination: No Hx Influenza Vaccination: No Hx Pneumococcal Vaccination: No - Home Medications Home Medications: Ambulatory Orders Medication Instructions Recorded Atorvastatin [Lipitor] 20 mg PO DAILY 08/16/16 Labetalol [Trandate] 100 mg PO BID 08/16/16 amLODIPine [Norvasc] 5 mg PO DAILY 08/16/16 Calcium Carbonate [Oscal] 500 mg PO TID 10/16/17 Lisinopril [Zestril] 5 mg PO DAILY 01/24/18 Vitamin B Complex/Vit C/Folic 1 tab PO DAILY tab 04/01/18 [Nephro-Valentino] Memantine [Namenda] 5 mg PO DAILY #30 tab 04/24/18 Mirtazapine [Remeron] 15 mg PO HS #30 tab 04/24/18 Saccharomyces Boulardi [Florastor] 250 mg PO BID #30 cap 04/24/18 Calcium Acetate [Phoslo] 667 mg PO TID 05/13/18 clonazePAM [Klonopin] 0.5 mg PO Q8 PRN 05/13/18 Nystatin [Nystatin Oral Susp] 5 ml PO QID #20 [facility] 05/20/18 Vancomycin [Vancocin 25 mg/ml 125 mg PO QID #24 ml 05/20/18 (Oral Use)] diltiaZEM [Cardizem] 60 mg PO Q6 #90 tab 05/20/18 metroNIDAZOLE [Flagyl] 500 mg PO Q8 #15 tab 05/20/18 Meloxicam [Mobic] 7.5 mg PO DAILY 05/26/18 - Allergies Allergies/Adverse Reactions: Allergies Allergy/AdvReac Type Severity Reaction Status Date / Time vancomycin AdvReac REDNESS Verified 07/10/18 13:51 Review of Systems ROS Statement: Except As Marked, All Systems Reviewed And Found Negative Constitutional: Negative for: Fever Gastrointestinal: Positive for: Abdominal Pain, Melena (small amounts of blood) Genitourinary Female: Positive for: Other (rectal pain) Physical Exam - Reviewed Nursing Documentation Reviewed: Yes Vital Signs Reviewed: Yes - Physical Exam Appears: Positive for: No Acute Distress Head Exam: Positive for: ATRAUMATIC, NORMOCEPHALIC Skin: Positive for: Normal Color Cardiovascular/Chest: Positive for: Regular Rate, Rhythm. Negative for: Murmur Respiratory: Positive for: Normal Breath Sounds. Negative for: Respiratory Distress Gastrointestinal/Abdominal: Positive for: Normal Exam, Soft. Negative for: Tenderness Rectal: Positive for: Tenderness (at 9'o'clock; no abscess palpated ) Neurologic/Psych: Positive for: Alert, Oriented - Laboratory Results Result Diagrams: 07/10/18 12:40 07/10/18 12:40 - ECG O2 Sat by Pulse Oximetry: 99 (RA) Pulse Ox Interpretation: Normal Medical Decision Making Medical Decision Making: Time: 1207 Plan: Based on CT done at outside hospital, rectosigmoid fistula, no CT available here. Patient will speak to Dr. Del Rio to see if a repeat CT is needed in the hospital --VBG --CMP --Cbc with differential --Blood culture Scribe Attestation: Documented by James Lara, acting as a scribe for Arie Penaloza MD. Provider Scribe Attestation: All medical record entries made by the Scribe were at my direction and personally dictated by me. I have reviewed the chart and agree that the record accurately reflects my personal performance of the history, physical exam, medical decision making, and the department course for this patient. I have also personally directed, reviewed, and agree with the discharge instructions and disposition. Disposition - Clinical Impression Clinical Impression: Chronic kidney disease, stage IV (severe), Sepsis, Rectal fistula - Patient ED Disposition Is Patient to be Admitted: Yes - Disposition Disposition Time: 14:35 Condition: FAIR Forms: [employer] (Mauritanian) - Pt Status Changed To: Hospital Disposition Of: Inpatient - Admit Certification Admit to Inpatient:: After my assessment, the patient will require hospitalizati on for at least two midnights. This is because of the severity of symptoms shown, intensity of services needed, and/or the medical risk in this patient being treated as an outpatient. - POA Present On Arrival: None
[2018-07-10] MEDS ORDERED: Piperacillin/Tazobact 3.375 gm Inj IVPB ONE (12:24)
[2018-07-10] MEDS ORDERED: Vancomycin 1 g Inj ONE (12:24)
[2018-07-10 13:04] LABS: VENOUS BLOOD GAS BASE EXCESS 5.8 mmol/L (0.0-2.0); VENOUS BLOOD GAS PCO2 60 mmHg (40-60); VENOUS BLOOD GAS PO2 24 mm/Hg (30-55); VENOUS BLOOD PH 7.35 (7.32-7.43)
[2018-07-10 13:21] LABS: ALB/GLOB RATIO 1.3 (1.0-2.1); ALBUMIN 3.3 g/dL (3.5-5.0); CALCIUM 8.6 mg/dL (8.4-10.2)
[2018-07-10 13:34] LABS: BASO # 0.1 K/uL (0.0-0.2); BASO % 1.4 % (0.0-2.0); EOS # 0.2 K/uL (0.0-0.7); EOS % 2.6 % (0.0-4.0); HEMOGLOBIN 11.7 g/dL (12.0-16.0); LYMPH # 1.4 K/uL (1.0-4.3); LYMPH % 20.2 % (20.0-40.0); MEAN CELL VOLUME 92.3 fl (81.0-99.0); MEAN CORPUSCULAR HEMOGLOBIN 28.8 pg (27.0-31.0); MEAN CORPUSCULAR HGB CONC 31.2 g/dL (33.0-37.0); MEAN PLATELET VOLUME 10.6 fl (7.2-11.7); MONO % 14.3 % (0.0-10.0); NEUT # 4.2 K/uL (1.8-7.0); NEUT % 61.5 % (50.0-75.0); NRBC % 0.2 % (0.0-0.0); RBC 4.07 Mil/uL (3.80-5.20); RED CELL DISTRIBUTION WIDTH 17.2 % (11.5-14.5); WHITE BLOOD COUNT 6.7 K/uL (4.8-10.8)
--- NOTE | 2018-07-10 16:30 | CT ---
Date of service: 07/10/2018 PROCEDURE: CT Abdomen and Pelvis without intravenous contrast HISTORY: r/o kidney stone COMPARISON: 06/16/2018 CT abdomen and pelvis contrast enhanced study TECHNIQUE: Technique. Contrast dose: None Radiation dose: Total exam DLP = 443 mGy-cm. This CT exam was performed using one or more of the following dose reduction techniques: Automated exposure control, adjustment of the mA and/or kV according to patient size, and/or use of iterative reconstruction technique. FINDINGS: LOWER THORAX: Bilateral pleural effusions with bordering left posteromedial probable concomitant subsegmental compressive atelectasis. Cardiomegaly no pericardial effusion noted. LIVER: Previously referenced probable right hepatic lobe cyst better appreciated on the prior contrast enhanced study is similar measuring 1.8 cm on this exam. GALLBLADDER AND BILE DUCTS: Gallbladder appears moderately distended. A large amount of fluid surrounding it and around the liver-large amount of ascites is also present in the left pericolic gutter. PANCREAS: Unremarkable. No gross lesion or ductal dilatation. SPLEEN: The prior study contrast enhanced better depicted the marked heterogeneity/abnormal appearance to the spleen-interpreted previously as infarcts. Lack of contrast enhancement here limits optimal evaluation on this exam. ADRENALS: Unremarkable. No mass. KIDNEYS AND URETERS: The large left renal cyst an exophytic off the left lower renal pole measuring approximately 6 cm is re-noted. Both kidneys appear somewhat small in size with tiny punctate nonobstructing renal calculi noted these were findings noted previously and/or are similar in appearance. No hydronephrosis. VASCULATURE: Mild aneurysmal dilatation is probable at the aortic hiatus-however the marked tortuosity here limits optimal evaluation. There is presence of aortic atherosclerotic calcification and mural plaque on cross sectional studies. This heavy calcification and likely mild aneurysmal dilatation of each common iliac artery-proximally left common iliac arteries approximate 1.6 cm in maximum dimension BOWEL: There is little contrast throughout the small and large bowel. There is un even contrast opacification of the bowel. Findings markedly limits optimal evaluation. Previously mural thickening involving the cecum and ascending core: A portion of the transverse colon were noted on the better more evenly opacified contrast enhanced study. Assessing these areas is markedly limited without more even oral contrast administration these sections and/or without any similar IV contrast enhancement. The anterior abdominal wall surgical changes appear similar There are multiple rectosigmoid diverticuli present and some colonic redundancy. APPENDIX: The appendix is not clearly visualized. Presence or absence of any appendicitis cannot be assessed on this limited exam without significant oral or IV contrast based on the prior known findings in the cecum. PERITONEUM: There is a large amount of free fluid throughout the abdomen. No free air seen. Previously more of a concentric submucosal edema thickening of the anorectal junction here was suggested. This is likely also still present LYMPH NODES: Unremarkable. No enlarged lymph nodes. BLADDER: Unremarkable. REPRODUCTIVE: Unremarkable. BONES: No acute fracture. OTHER FINDINGS: IMPRESSION: Likely posterior to the vagina and anterior to the partially redundant rectosigmoid colon there is a 4.6 x 2.8 cm fluid like collection-an interloop abscess here or developing abscess here is a collect is a consideration. Again the colonic loops appear grossly abnormal better better assessed and visualized in terms of mural thickening on the prior contrast enhanced study. Please note the prior report from 05/17/2018. Extensive ascites present. The amount of fluid appears increased since the prior exam. A discrete fistulous track is difficult to identify with certainty on this exam. This some clinical history fistulous tract her outside studies. No prior reports or images are available to me for correlation with any fissures track an outside facility. Correlation with physical exam also advised. Other findings as above.
--- NOTE | 2018-07-10 16:50 | CP.PCM.CON ---
History of Present Illness - History of Present Illness History of Present Illness: SURGERY CONSULT FOR DR. ALMENDAREZ Reason: CT scan of rectal fistula on outside facility 77F presents to hospital for pain in anal region. Patient is accompanied by son. He states she was recently in the hospital at [place] and was diagnosed with "rectal fistula" as per the DC summary. Patient denies any abdominal pain, denies nausea, or vomiting, denies any fevers or chills. Patient has been tolerating diet and having normal bowel function. PMH: CKD, CHF, HTN, HLD, Alzheimer's PSH: Appendectomy, Tonsillectomy, AV fistula Past Patient History - Infectious Disease Hx of Infectious Diseases: C.diff - Tetanus Immunizations Tetanus Immunization: Unknown - Past Medical History & Family History Past Medical History?: Yes - Past Social History Smoking Status: Never Smoked - CARDIAC Hx Atrial Fibrillation: No Hx Cardia Arrhythmia: No Hx Congestive Heart Failure: Yes Hx Hypercholesterolemia: Yes Hx Hypertension: Yes Hx Mitral Valve Prolapse: No Hx Pacemaker: No Hx Peripheral Edema: No - PULMONARY Hx Asthma: No Hx Bronchitis: No Hx Chronic Obstructive Pulmonary Disease (COPD): No Hx Emphysema: No Hx Pneumonia: Yes Hx Pulmonary Embolism: No Hx Sleep Apnea: No - NEUROLOGICAL Hx Alzheimer's Disease: Yes Hx Dementia: Yes Hx Migraine: No Hx Multiple Sclerosis: No Hx Parkinson's Disease: No Hx Seizures: No Hx Transient Ischemic Attacks (TIA): No - HEENT Hx HEENT Problems: No - RENAL Hx Chronic Kidney Disease: Yes Hx Kidney Stones: No - ENDOCRINE/METABOLIC Hx Hyperthyroidism: No Hx Hypothyroidism: No - HEMATOLOGICAL/ONCOLOGICAL Hx Anemia: Yes Hx Human Immunodeficiency Virus (HIV): No Hx Sickle Cell Disease: No - INTEGUMENTARY Hx Dermatological Problems: No - MUSCULOSKELETAL/RHEUMATOLOGICAL Hx Arthritis: No Hx Fractures: No Hx Osteoporosis: No Hx Rheumatoid Arthritis: No - GASTROINTESTINAL Hx Crohn's Disease: No Hx Diverticulitis: No Hx Gall Bladder Disease: No Hx Gastritis: No Hx Pancreatitis: No - GENITOURINARY/GYNECOLOGICAL Hx Sexually Transmitted Disorders: No - PSYCHIATRIC Hx Anxiety: Yes Hx Bipolar Disorder: No Hx Depression: No Hx Paranoia: No Hx Post Traumatic Stress Disorder: No Hx Schizophrenia: No - SURGICAL HISTORY Hx Appendectomy: Yes Hx Carotid Endarterectomy: No Hx Cholecystectomy: Yes Hx Coronary Artery Bypass Graft: No Hx Coronary Stent: No Hx Tonsillectomy: Yes - ANESTHESIA Hx Anesthesia: Yes Hx Anesthesia Reactions: No Hx Malignant Hyperthermia: No Meds Allergies/Adverse Reactions: Allergies Allergy/AdvReac Type Severity Reaction Status Date / Time vancomycin AdvReac REDNESS Verified 07/10/18 13:51 Physical Exam - Constitutional Appears: Non-toxic, No Acute Distress - Respiratory Exam Respiratory Exam: Clear to Auscultation Bilateral, NORMAL BREATHING PATTERN - Cardiovascular Exam Cardiovascular Exam: REGULAR RHYTHM, +S1, +S2 - GI/Abdominal Exam GI & Abdominal Exam: Soft. absent: Distended, Firm, Guarding, Rebound, Rigid, Tenderness - Rectal Exam Additional comments: pain on digital rectal exam, no blood, no abscess noted, no fistula tract noted - Neurological Exam Neurological exam: Alert - Skin Skin Exam: Dry, Intact, Normal Color, Warm Results - Vital Signs Recent Vital Signs: Last Vital Signs Temp 97.2 F L 07/10/18 12:27 Pulse 109 H 07/10/18 12:27 Resp 16 07/10/18 12:27 BP 123/66 07/10/18 11:03 Pulse Ox 99 07/10/18 14:35 - Labs Result Diagrams: 07/10/18 12:40 07/10/18 12:40 Labs: Laboratory Results - last 24 hr 07/10/18 07/10/18 07/10/18 12:07 12:40 12:40 WBC 6.7 RBC 4.07 Hgb 11.7 L Hct 37.6 MCV 92.3 D MCH 28.8 MCHC 31.2 L RDW 17.2 H Plt Count 135 D MPV 10.6 Neut % (Auto) 61.5 Lymph % (Auto) 20.2 [place] % (Auto) 14.3 H Eos % (Auto) 2.6 Baso % (Auto) 1.4 Neut # (Auto) 4.2 Lymph # (Auto) 1.4 [place] # (Auto) 1.0 H Eos # (Auto) 0.2 Baso # (Auto) 0.1 pO2 24 L VBG pH 7.35 VBG pCO2 60 VBG HCO3 27.9 VBG Total CO2 34.9 H VBG O2 Sat (Calc) 36.6 L VBG Base Excess 5.8 H VBG Potassium 4.2 Sodium 127.0 L 131 L Chloride 90.0 L 90 L Glucose 118 H Lactate 1.6 FiO2 21.0 Potassium 4.9 Carbon Dioxide 25 Anion Gap 21 H BUN 72 H Creatinine 4.6 H Est GFR ( Amer) 11 Est GFR (Non-Af Amer) 9 Random Glucose 117 H Calcium 8.6 Total Bilirubin 1.0 AST 105 H D ALT 88 H D Alkaline Phosphatase 143 H D Total Protein 5.7 L Albumin 3.3 L Globulin 2.5 Albumin/Globulin Ratio 1.3 Venous Blood Potassium 4.2 Assessment & Plan - Assessment and Plan (Free Text) Assessment: 77F with pelvic abscess seen on CT scan 4.6cm*2.3cm between vagina and rectum Plan: NPO after midnight IVF Recommend IR for possible drainage of fluid collection Monitor vitals Discussed with Dr. Meghann Major, PGY3
[2018-07-10] MEDS ORDERED: Sodium Chloride 0.9% 1,000 ML IV SCH (17:15)
[2018-07-10] MEDS ORDERED: Dextrose 5%/Lactated Ringer's 1,000 ML IV SCH ×2 (21:00→21:45)
[2018-07-10] MEDS: Piperacillin/Tazobact 3.375 GM in Sodium Chloride 0.9% 100 ML IVPB SCH (21:53)
[2018-07-10] MEDS: diltiaZEM 180 mg/24 Hours CD Cap PO SCH (22:55)
[2018-07-11] MEDS: Piperacillin/Tazobact 3.375 GM in Sodium Chloride 0.9% 100 ML IVPB SCH ×5 (03:52→22:00)
--- NOTE | 2018-07-11 07:29 | CP.PCM.PN ---
Subjective - Date & Time of Evaluation Date of Evaluation: 07/11/18 Time of Evaluation: 07:27 - Subjective Subjective: SURGERY NOTE FOR DR. ALMENDAREZ 77F seen and examined at bedside. No acute events overnight. Patient denies abdominal pain, continues to have pain in the anal region. Having normal bowel function, denies fevers. Objective - Vital Signs/Intake and Output Vital Signs (last 24 hours): Temp Pulse Resp BP Pulse Ox 97.4 F L 105 H 18 121/74 96 07/11/18 04:59 07/11/18 04:59 07/11/18 04:59 07/11/18 04:59 07/11/18 04:59 - Medications Medications: Current Medications Diltiazem HCl (Cardizem Cd) 180 mg PO DAILY [facility] Last Admin: 07/10/18 22:55 Dose: Not Given Hydromorphone HCl (Dilaudid) 1 mg IVP Q6 PRN PRN Reason: Pain, moderate (4-7) Last Admin: 07/11/18 00:01 Dose: 1 mg Piperacillin Sod/Tazobactam (Sod 3.375 gm/ Sodium Chloride) 100 mls @ 100 mls/hr IVPB Q6 [facility]; Protocol Last Admin: 07/11/18 03:52 Dose: 100 mls/hr Dextrose/Lactated Ringer's (Dextrose 5%/Lactated Ringer's) 1,000 mls @ 25 mls/h r IV .Q24H [facility] Stop: 07/11/18 21:43 Last Admin: 07/10/18 21:51 Dose: 25 mls/hr Labetalol HCl (Trandate) 100 mg PO BID PRN PRN Reason: Systolic Blood Pressure Lisinopril (Zestril) 5 mg PO DAILY [facility] Last Admin: 07/10/18 21:44 Dose: 5 mg Pantoprazole Sodium (Protonix Inj) 40 mg IVP DAILY [facility] - Labs Labs: 07/10/18 12:40 07/10/18 12:40 - Constitutional Appears: Non-toxic, No Acute Distress - ENT Exam ENT Exam: Mucous Membranes Moist - Respiratory Exam Respiratory Exam: Clear to Ausculation Bilateral, NORMAL BREATHING PATTERN - Cardiovascular Exam Cardiovascular Exam: REGULAR RHYTHM, +S1, +S2 - GI/Abdominal Exam GI & Abdominal Exam: Soft. absent: Distended, Firm, Guarding, Rigid, Tend erness, Rebound - Rectal Exam Additional comments: skin abrasion around the anal region - Extremities Exam Extremities Exam: absent: Pedal Edema - Neurological Exam Neurological Exam: Alert, Awake - Psychiatric Exam Psychiatric exam: Normal Affect, Normal Mood Assessment and Plan - Assessment and Plan (Free Text) Assessment: 77F with pelvic fluid collection as seen on CT scan Plan: - NPO - IVF - Pain control - Pre-op - Will contact IR for fluid drainage Further recs discuss with Dr. Meghann Major, PGY3
[2018-07-11 08:22] LABS: BASO # 0.1 K/uL (0.0-0.2); BASO % 2.6 % (0.0-2.0); EOS # 0.1 K/uL (0.0-0.7); EOS % 1.5 % (0.0-4.0); HEMOGLOBIN 11.5 g/dL (12.0-16.0); LYMPH % 18.5 % (20.0-40.0); MEAN CELL VOLUME 90.6 fl (81.0-99.0); MEAN CORPUSCULAR HEMOGLOBIN 28.7 pg (27.0-31.0); MEAN CORPUSCULAR HGB CONC 31.6 g/dL (33.0-37.0); MEAN PLATELET VOLUME 10.1 fl (7.2-11.7); MONO # 0.8 K/uL (0.0-0.8); MONO % 15.2 % (0.0-10.0); NEUT # 3.4 K/uL (1.8-7.0); NEUT % 62.2 % (50.0-75.0); NRBC % 0.1 % (0.0-0.0); RBC 4.02 Mil/uL (3.80-5.20); WHITE BLOOD COUNT 5.5 K/uL (4.8-10.8)
[2018-07-11 08:34] LABS: INR 1.3; PROTHROMBIN TIME 14.2 Seconds (9.8-13.1)
[2018-07-11 08:36] LABS: ALB/GLOB RATIO 1.4 (1.0-2.1); ALBUMIN 3.4 g/dL (3.5-5.0); CALCIUM 9.1 mg/dL (8.4-10.2); PARTIAL THROMBOPLASTIN TIME 29.1 Seconds (25.6-37.1)
[2018-07-11] MEDS: diltiaZEM 180 mg/24 Hours CD Cap PO SCH (09:15)
[2018-07-11] MEDS ORDERED: Dextrose 5%/Lactated Ringer's 1,000 ML IV SCH (09:18)
--- NOTE | 2018-07-11 09:22 | CP.PCM.CON ---
History of Present Illness - History of Present Illness History of Present Illness: This patient is 77 years of age female known to me with end-stage renal disease on maintenance hemodialysis twice a week. Patient admitted with rectal pain and apparently she has recent surgery for rectal abscess?. Patient has numerous and numerous of admission in this hospital and at that hospital for noncompliance because she was missing dialysis and was uremia and requiring dialysis. Patient has history of hypertension and Alzheimer. Patient goes for dialysis as outpatient in [facility]. PMH: CKD, CHF, HTN, HLD, Alzheimer's PSH: Appendectomy, Tonsillectomy, AV fistula Review of Systems - Constitutional Constitutional: Anorexia. absent: Chills - EENT Eyes: absent: Exophthalmos - Cardiovascular Cardiovascular: absent: Chest Pain, Dyspnea, Edema, Leg Ulcers - Respiratory Respiratory: absent: Cough, Hemoptysis, Chest Congestion - Gastrointestinal Gastrointestinal: As Per HPI. absent: Abdominal Pain, Nausea - Musculoskeletal Musculoskeletal: absent: Back Pain, Numbness - Neurological Neurological: Weakness. absent: Confusion, Focal Weakness - Psychiatric Psychiatric: Memory Loss - Endocrine Endocrine: Fatigue - Hematologic/Lymphatic Hematologic: absent: Easy Bleeding Past Patient History - Infectious Disease Hx of Infectious Diseases: C.diff - Tetanus Immunizations Tetanus Immunization: Unknown - Past Medical History & Family History Past Medical History?: Yes - Past Social History Smoking Status: Never Smoked - CARDIAC Hx Atrial Fibrillation: No Hx Cardia Arrhythmia: No Hx Congestive Heart Failure: Yes Hx Hypercholesterolemia: Yes Hx Hypertension: Yes Hx Mitral Valve Prolapse: No Hx Pacemaker: No Hx Peripheral Edema: No - PULMONARY Hx Asthma: No Hx Bronchitis: No Hx Chronic Obstructive Pulmonary Disease (COPD): No Hx Emphysema: No Hx Pneumonia: Yes Hx Pulmonary Embolism: No Hx Sleep Apnea: No - NEUROLOGICAL Hx Alzheimer's Disease: Yes Hx Dementia: Yes Hx Migraine: No Hx Multiple Sclerosis: No Hx Parkinson's Disease: No Hx Seizures: No Hx Transient Ischemic Attacks (TIA): No - HEENT Hx HEENT Problems: No - RENAL Hx Chronic Kidney Disease: Yes Hx Kidney Stones: No - ENDOCRINE/METABOLIC Hx Hyperthyroidism: No Hx Hypothyroidism: No - HEMATOLOGICAL/ONCOLOGICAL Hx Anemia: Yes Hx Human Immunodeficiency Virus (HIV): No Hx Sickle Cell Disease: No - INTEGUMENTARY Hx Dermatological Problems: No - MUSCULOSKELETAL/RHEUMATOLOGICAL Hx Arthritis: No Hx Falls: No Hx Fractures: No Hx Osteoporosis: No Hx Rheumatoid Arthritis: No - GASTROINTESTINAL Hx Crohn's Disease: No Hx Diverticulitis: No Hx Gall Bladder Disease: No Hx Gastritis: No Hx Pancreatitis: No - GENITOURINARY/GYNECOLOGICAL Hx Sexually Transmitted Disorders: No - PSYCHIATRIC Hx Anxiety: Yes Hx Bipolar Disorder: No Hx Depression: No Hx Paranoia: No Hx Post Traumatic Stress Disorder: No Hx Schizophrenia: No Hx Substance Use: No - SURGICAL HISTORY Hx Appendectomy: Yes Hx Carotid Endarterectomy: No Hx Cholecystectomy: Yes Hx Coronary Artery Bypass Graft: No Hx Coronary Stent: No Hx Tonsillectomy: Yes - ANESTHESIA Hx Anesthesia: Yes Hx Anesthesia Reactions: No Hx Malignant Hyperthermia: No Meds Allergies/Adverse Reactions: Allergies Allergy/AdvReac Type Severity Reaction Status Date / Time vancomycin AdvReac REDNESS Verified 07/10/18 13:51 - Medications Medications: Current Medications Diltiazem HCl (Cardizem Cd) 180 mg PO DAILY [facility] Last Admin: 07/11/18 09:15 Dose: Not Given Hydromorphone HCl (Dilaudid) 1 mg IVP Q6 PRN PRN Reason: Pain, moderate (4-7) Last Admin: 07/11/18 00:01 Dose: 1 mg Piperacillin Sod/Tazobactam (Sod 3.375 gm/ Sodium Chloride) 100 mls @ 100 mls/hr IVPB Q6 [facility]; Protocol Last Admin: 07/11/18 03:52 Dose: 100 mls/hr Dextrose/Lactated Ringer's (Dextrose 5%/Lactated Ringer's) 1,000 mls @ 60 mls/hr IV .[id number] Stop: 07/11/18 21:43 Labetalol HCl (Trandate) 100 mg PO BID PRN PRN Reason: Systolic Blood Pressure Lisinopril (Zestril) 5 mg PO DAILY [facility] Last Admin: 07/11/18 09:16 Dose: Not Given Pantoprazole Sodium (Protonix Inj) 40 mg IVP DAILY [facility] Last Admin: 07/11/18 09:15 Dose: Not Given Physical Exam - Constitutional Appears: Non-toxic - Eye Exam Eye Exam: Conjunctival injection - ENT Exam ENT Exam: Mucous Membranes Moist - Neck Exam Neck exam: Negative for: Lymphadenopathy - Respiratory Exam Respiratory Exam: NORMAL BREATHING PATTERN. absent: Chest Wall Tenderness - Cardiovascular Exam Cardiovascular Exam: absent: Gallop, JVD, Rubs - GI/Abdominal Exam GI & Abdominal Exam: absent: Guarding - Extremities Exam Extremities exam: Negative for: calf tenderness - Back Exam Back exam: absent: CVA tenderness (L), CVA tenderness (R) - Neurological Exam Neurological exam: Alert Results - Vital Signs Recent Vital Signs: Last Vital Signs Temp 97.4 F L 07/11/18 04:59 Pulse 105 H 07/11/18 04:59 Resp 18 07/11/18 04:59 BP 121/74 07/11/18 04:59 Pulse Ox 96 07/11/18 04:59 - Labs Result Diagrams: 07/11/18 08:06 07/11/18 08:06 Labs: Laboratory Results - last 24 hr 07/10/18 07/10/18 07/10/18 12:07 12:40 12:40 WBC 6.7 RBC 4.07 Hgb 11.7 L Hct 37.6 MCV 92.3 D MCH 28.8 MCHC 31.2 L RDW 17.2 H Plt Count 135 D MPV 10.6 Neut % (Auto) 61.5 Lymph % (Auto) 20.2 [place] % (Auto) 14.3 H Eos % (Auto) 2.6 Baso % (Auto) 1.4 Neut # (Auto) 4.2 Lymph # (Auto) 1.4 [place] # (Auto) 1.0 H Eos # (Auto) 0.2 Baso # (Auto) 0.1 PT INR APTT pO2 24 L VBG pH 7.35 VBG pCO2 60 VBG HCO3 27.9 VBG Total CO2 34.9 H VBG O2 Sat (Calc) 36.6 L VBG Base Excess 5.8 H VBG Potassium 4.2 Sodium 127.0 L 131 L Chloride 90.0 L 90 L Glucose 118 H Lactate 1.6 FiO2 21.0 Potassium 4.9 Carbon Dioxide 25 Anion Gap 21 H BUN 72 H Creatinine 4.6 H Est GFR ( Amer) 11 Est GFR (Non-Af Amer) 9 Random Glucose 117 H Calcium 8.6 Total Bilirubin 1.0 AST 105 H D ALT 88 H D Alkaline Phosphatase 143 H D Total Protein 5.7 L Albumin 3.3 L Globulin 2.5 Albumin/Globulin Ratio 1.3 Venous Blood Potassium 4.2 07/11/18 07/11/18 07/11/18 08:06 08:06 08:06 WBC 5.5 RBC 4.02 Hgb 11.5 L Hct 36.4 MCV 90.6 MCH 28.7 MCHC 31.6 L RDW 18.0 H Plt Count 142 MPV 10.1 Neut % (Auto) 62.2 Lymph % (Auto) 18.5 L [place] % (Auto) 15.2 H Eos % (Auto) 1.5 Baso % (Auto) 2.6 H Neut # (Auto) 3.4 Lymph # (Auto) 1.0 [place] # (Auto) 0.8 Eos # (Auto) 0.1 Baso # (Auto) 0.1 PT 14.2 H INR 1.3 APTT 29.1 pO2 VBG pH VBG pCO2 VBG HCO3 VBG Total CO2 VBG O2 Sat (Calc) VBG Base Excess VBG Potassium Sodium 132 Chloride 90 L Glucose Lactate FiO2 Potassium 4.9 Carbon Dioxide 26 Anion Gap 21 H BUN 78 H Creatinine 5.5 H Est GFR ( Amer) 9 Est GFR (Non-Af Amer) 7 Random Glucose 98 Calcium 9.1 Total Bilirubin 1.0 AST 206 H D ALT 162 H D Alkaline Phosphatase 137 H Total Protein 5.8 L Albumin 3.4 L Globulin 2.4 Albumin/Globulin Ratio 1.4 Venous Blood Potassium Assessment & Plan (1) ESRD (end stage renal disease) on dialysis Assessment and Plan: Patient with end-stage renal disease on maintenance hemodialysis twice a week Admitted with a rectal abscess and rectal pain History of secondary hyperparathyroidism History of hyperphosphatemia Hypertension Plan Hemodialysis scheduled shortly. Consent was taken order was given. Antibiotics as per renal dose Patient is going for surgery regarding rectal abscess Status: Acute
--- NOTE | 2018-07-11 10:10 | CP.PCM.HP ---
<Mirna Johnson - Last Filed: 07/11/18 15:20> History of Present Illness - History of Present Illness History of Present Illness: 77 yo F with med hx HTN, A-fib, dementia, CHF, and pneumonia, C. diff colitis, who presents to the emergency department with family for rectal pain that has been chronic over past x2 weeks. 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 Admission and surgery was recommended but patient opted to leave at that time. No fevers, no chest pain, no shortness of breath. Rectal pain as per HPI. Chronic weakness. PMD: Dr. Dumont Service Dismantler: Dr. Benedict PMHx: Alzheimers/dementia, ESRD (on HD), anemia, anxiety and hypercholesterolemia SurgHx: appendectomy, tonsillectomy FMHx: HTN SocHx: denies tobacco, Etoh or drugs Allergies: NKDA In ED: Vitals: HR 96, Pulse 112, Resp 22, BP 123/66, Pulse ox 99 Labs: WBC 6.7, Hgb 11.7, BUN 72, Cr 4.6 CT; part of impression: Likely posterior to vaginal and anterior to partially redundant rectosigmoid colon there is 4.6 x 2.8 cm fluid like collection. Extensive ascites. Discrete fustulous track is difficult to identify with certainty. Pt seen today; discussed w/ Dr. Del Rio. Reports feeling ok, improvement of pain. Reports she is able to have BMs. Present on Admission - Present on Admission Any Indicators Present on Admission: Yes - Notes: Notes:: superficial linear skin opening on the right inner buttock Review of Systems - Review of Systems All systems: reviewed and no additional remarkable complaints except Review of Systems: as per hpi Past Patient History - Infectious Disease Hx of Infectious Diseases: C.diff - Tetanus Immunizations Tetanus Immunization: Unknown - Past Medical History & Family History Past Medical History?: Yes - Past Social History Smoking Status: Never Smoked - CARDIAC Hx Atrial Fibrillation: No Hx Cardia Arrhythmia: No Hx Congestive Heart Failure: Yes Hx Hypercholesterolemia: Yes Hx Hypertension: Yes Hx Mitral Valve Prolapse: No Hx Pacemaker: No Hx Peripheral Edema: No - PULMONARY Hx Asthma: No Hx Bronchitis: No Hx Chronic Obstructive Pulmonary Disease (COPD): No Hx Emphysema: No Hx Pneumonia: Yes Hx Pulmonary Embolism: No Hx Sleep Apnea: No - NEUROLOGICAL Hx Alzheimer's Disease: Yes Hx Dementia: Yes Hx Migraine: No Hx Multiple Sclerosis: No Hx Parkinson's Disease: No Hx Seizures: No Hx Transient Ischemic Attacks (TIA): No - HEENT Hx HEENT Problems: No - RENAL Hx Chronic Kidney Disease: Yes Hx Kidney Stones: No - ENDOCRINE/METABOLIC Hx Hyperthyroidism: No Hx Hypothyroidism: No - HEMATOLOGICAL/ONCOLOGICAL Hx Anemia: Yes Hx Human Immunodeficiency Virus (HIV): No Hx Sickle Cell Disease: No - INTEGUMENTARY Hx Dermatological Problems: No - MUSCULOSKELETAL/RHEUMATOLOGICAL Hx Arthritis: No Hx Falls: No Hx Fractures: No Hx Osteoporosis: No Hx Rheumatoid Arthritis: No - GASTROINTESTINAL Hx Crohn's Disease: No Hx Diverticulitis: No Hx Gall Bladder Disease: No Hx Gastritis: No Hx Pancreatitis: No - GENITOURINARY/GYNECOLOGICAL Hx Sexually Transmitted Disorders: No - PSYCHIATRIC Hx Anxiety: Yes Hx Bipolar Disorder: No Hx Depression: No Hx Paranoia: No Hx Post Traumatic Stress Disorder: No Hx Schizophrenia: No Hx Substance Use: No - SURGICAL HISTORY Hx Appendectomy: Yes Hx Carotid Endarterectomy: No Hx Cholecystectomy: Yes Hx Coronary Artery Bypass Graft: No Hx Coronary Stent: No Hx Tonsillectomy: Yes - ANESTHESIA Hx Anesthesia: Yes Hx Anesthesia Reactions: No Hx Malignant Hyperthermia: No Meds Allergies/Adverse Reactions: Allergies Allergy/AdvReac Type Severity Reaction Status Date / Time vancomycin AdvReac REDNESS Verified 07/10/18 13:51 Physical Exam - Constitutional Appears: No Acute Distress - Head Exam Head Exam: NORMAL INSPECTION - Eye Exam Eye Exam: Normal appearance - ENT Exam ENT Exam: Mucous Membranes Moist - Respiratory Exam Respiratory Exam: NORMAL BREATHING PATTERN. absent: Wheezes - Cardiovascular Exam Cardiovascular Exam: REGULAR RHYTHM - GI/Abdominal Exam GI & Abdominal Exam: Soft. absent: Tenderness - Extremities Exam Extremities exam: Positive for: normal inspection, pedal edema (1+). Negative for: calf tenderness - Back Exam Back exam: NORMAL INSPECTION - Neurological Exam Neurological exam: Alert - Psychiatric Exam Psychiatric exam: Normal Mood - Skin Skin Exam: Warm Results - Vital Signs Recent Vital Signs: Last Vital Signs Temp 97.8 F 07/11/18 09:24 Pulse 105 H 07/11/18 09:24 Resp 20 07/11/18 09:24 BP 119/75 07/11/18 09:24 Pulse Ox 98 07/11/18 09:24 - Labs Result Diagrams: 07/11/18 08:06 07/11/18 08:06 Labs: Laboratory Results - last 24 hr 07/10/18 07/10/18 07/10/18 12:07 12:40 12:40 WBC 6.7 RBC 4.07 Hgb 11.7 L Hct 37.6 MCV 92.3 D MCH 28.8 MCHC 31.2 L RDW 17.2 H Plt Count 135 D MPV 10.6 Neut % (Auto) 61.5 Lymph % (Auto) 20.2 [place] % (Auto) 14.3 H Eos % (Auto) 2.6 Baso % (Auto) 1.4 Neut # (Auto) 4.2 Lymph # (Auto) 1.4 [place] # (Auto) 1.0 H Eos # (Auto) 0.2 Baso # (Auto) 0.1 PT INR APTT pO2 24 L VBG pH 7.35 VBG pCO2 60 VBG HCO3 27.9 VBG Total CO2 34.9 H VBG O2 Sat (Calc) 36.6 L VBG Base Excess 5.8 H VBG Potassium 4.2 Sodium 127.0 L 131 L Chloride 90.0 L 90 L Glucose 118 H Lactate 1.6 FiO2 21.0 Potassium 4.9 Carbon Dioxide 25 Anion Gap 21 H BUN 72 H Creatinine 4.6 H Est GFR ( Amer) 11 Est GFR (Non-Af Amer) 9 Random Glucose 117 H Calcium 8.6 Total Bilirubin 1.0 AST 105 H D ALT 88 H D Alkaline Phosphatase 143 H D Total Protein 5.7 L Albumin 3.3 L Globulin 2.5 Albumin/Globulin Ratio 1.3 Venous Blood Potassium 4.2 07/11/18 07/11/18 07/11/18 08:06 08:06 08:06 WBC 5.5 RBC 4.02 Hgb 11.5 L Hct 36.4 MCV 90.6 MCH 28.7 MCHC 31.6 L RDW 18.0 H Plt Count 142 MPV 10.1 Neut % (Auto) 62.2 Lymph % (Auto) 18.5 L [place] % (Auto) 15.2 H Eos % (Auto) 1.5 Baso % (Auto) 2.6 H Neut # (Auto) 3.4 Lymph # (Auto) 1.0 [place] # (Auto) 0.8 Eos # (Auto) 0.1 Baso # (Auto) 0.1 PT 14.2 H INR 1.3 APTT 29.1 pO2 VBG pH VBG pCO2 VBG HCO3 VBG Total CO2 VBG O2 Sat (Calc) VBG Base Excess VBG Potassium Sodium 132 Chloride 90 L Glucose Lactate FiO2 Potassium 4.9 Carbon Dioxide 26 Anion Gap 21 H BUN 78 H Creatinine 5.5 H Est GFR ( Amer) 9 Est GFR (Non-Af Amer) 7 Random Glucose 98 Calcium 9.1 Total Bilirubin 1.0 AST 206 H D ALT 162 H D Alkaline Phosphatase 137 H Total Protein 5.8 L Albumin 3.4 L Globulin 2.4 Albumin/Globulin Ratio 1.4 Venous Blood Potassium Assessment & Plan - Assessment and Plan (Free Text) Assessment: 77 yo F with hx htn, ESRD on HD (MWF?), c. diff colitis; admitted for rectosigmoid fistula. Plan: - Admitted to tele - Nephro consult- Dr. Benedict, for HD - Surg Dr. Maldonado and IR - consulted for recs regarding pelvic abscess - Continue antibiotics - zosyn day 2 - F/u blood cultures - Pain control, zofran for nausea control - BP control - home med lisinopril, PRN labetalol; c/w diltiazem for hx a-fib - NPO for now - SCD <Juan Carlos Del Rio - Last Filed: 07/15/18 06:25> Results - Vital Signs Recent Vital Signs: Last Vital Signs Temp 97.9 F 07/15/18 04:35 Pulse 103 H 07/15/18 04:35 Resp 18 07/15/18 04:35 BP 109/58 L 07/15/18 04:35 Pulse Ox 97 07/15/18 04:35 - Labs Result Diagrams: 07/13/18 05:30 07/13/18 05:30 Assessment & Plan - Assessment and Plan (Free Text) Plan: I was present during evaluation and discussed with Dr Johnson re plans of care and tx. Juan Carlos Del Rio M.D.
[2018-07-11] MEDS ORDERED: Lidocaine/Prilocaine CREAM 5GM TP ONE (10:40)
--- NOTE | 2018-07-11 11:23 | PCM.IRP ---
History of Present Illness - History of Present Illness History of Present Illness: IR requested to evaluate for abscess drainage. CT reviewed. Pt with ascites. Interloop fluid collection described on CT scan is not amenable to percutaneous drainage. Recommend contrast enhanced CT scan ( both PO and IV) to evaluate for abscess. Unable to characterize abdominal fluid in the setting of ascites as abscess. Objective - Vital Signs/Intake and Output Vital Signs (last 24 hours): Vital Signs - 24 hr 07/10/18 07/10/18 07/10/18 12:27 14:35 16:30 Temperature 97.2 F L 97.2 F L Pulse Rate 109 H 106 H Respiratory 16 18 Rate Blood Pressure 120/84 O2 Sat by Pulse 98 99 98 Oximetry 07/10/18 07/10/18 07/10/18 17:15 20:02 21:00 Temperature 97.3 F L 97.2 F L Pulse Rate 103 H 111 H 110 H Respiratory 16 16 Rate Blood Pressure 176/61 H 153/77 H O2 Sat by Pulse 100 98 Oximetry 07/10/18 07/11/18 07/11/18 21:44 00:27 04:59 Temperature 97.2 F L 97.4 F L Pulse Rate 112 H 110 H 105 H Respiratory 18 18 Rate Blood Pressure 153/77 H 120/70 121/74 O2 Sat by Pulse 99 96 Oximetry 07/11/18 09:24 Temperature 97.8 F Pulse Rate 105 H Respiratory 20 Rate Blood Pressure 119/75 O2 Sat by Pulse 98 Oximetry Intake and Output (last 12 hours): Intake & Output 07/10/18 07/11/18 07/11/18 18:59 06:59 18:59 Weight 110 lb - Medications Medications: Current Medications Diltiazem HCl (Cardizem Cd) 180 mg PO DAILY [facility] Last Admin: 07/11/18 09:15 Dose: Not Given Hydromorphone HCl (Dilaudid) 1 mg IVP Q6 PRN PRN Reason: Pain, moderate (4-7) Last Admin: 07/11/18 00:01 Dose: 1 mg Piperacillin Sod/Tazobactam (Sod 3.375 gm/ Sodium Chloride) 100 mls @ 100 mls/hr IVPB Q6 [facility]; Protocol Last Admin: 07/11/18 10:24 Dose: Not Given Dextrose/Lactated Ringer's (Dextrose 5%/Lactated Ringer's) 1,000 mls @ 60 mls/hr IV .[id number] [facility] Stop: 07/11/18 21:43 Last Admin: 07/11/18 10:24 Dose: 60 mls/hr Labetalol HCl (Trandate) 100 mg PO BID PRN PRN Reason: Systolic Blood Pressure Lisinopril (Zestril) 5 mg PO DAILY [facility] Last Admin: 07/11/18 09:16 Dose: Not Given Ondansetron HCl (Zofran Inj) 4 mg IVP Q6 PRN PRN Reason: Nausea/Vomiting Last Admin: 07/11/18 09:30 Dose: 4 mg Pantoprazole Sodium (Protonix Inj) 40 mg IVP DAILY [facility] Last Admin: 07/11/18 09:15 Dose: Not Given - Labs Labs (last 24 hours): Laboratory Results - last 24 hr 07/10/18 07/10/18 07/10/18 12:07 12:40 12:40 WBC 6.7 RBC 4.07 Hgb 11.7 L Hct 37.6 MCV 92.3 D MCH 28.8 MCHC 31.2 L RDW 17.2 H Plt Count 135 D MPV 10.6 Neut % (Auto) 61.5 Lymph % (Auto) 20.2 [place] % (Auto) 14.3 H Eos % (Auto) 2.6 Baso % (Auto) 1.4 Neut # (Auto) 4.2 Lymph # (Auto) 1.4 [place] # (Auto) 1.0 H Eos # (Auto) 0.2 Baso # (Auto) 0.1 PT INR APTT pO2 24 L VBG pH 7.35 VBG pCO2 60 VBG HCO3 27.9 VBG Total CO2 34.9 H VBG O2 Sat (Calc) 36.6 L VBG Base Excess 5.8 H VBG Potassium 4.2 Sodium 127.0 L 131 L Chloride 90.0 L 90 L Glucose 118 H Lactate 1.6 FiO2 21.0 Potassium 4.9 Carbon Dioxide 25 Anion Gap 21 H BUN 72 H Creatinine 4.6 H Est GFR ( Amer) 11 Est GFR (Non-Af Amer) 9 Random Glucose 117 H Calcium 8.6 Total Bilirubin 1.0 AST 105 H D ALT 88 H D Alkaline Phosphatase 143 H D Total Protein 5.7 L Albumin 3.3 L Globulin 2.5 Albumin/Globulin Ratio 1.3 Venous Blood Potassium 4.2 07/11/18 07/11/18 07/11/18 08:06 08:06 08:06 WBC 5.5 RBC 4.02 Hgb 11.5 L Hct 36.4 MCV 90.6 MCH 28.7 MCHC 31.6 L RDW 18.0 H Plt Count 142 MPV 10.1 Neut % (Auto) 62.2 Lymph % (Auto) 18.5 L [place] % (Auto) 15.2 H Eos % (Auto) 1.5 Baso % (Auto) 2.6 H Neut # (Auto) 3.4 Lymph # (Auto) 1.0 [place] # (Auto) 0.8 Eos # (Auto) 0.1 Baso # (Auto) 0.1 PT 14.2 H INR 1.3 APTT 29.1 pO2 VBG pH VBG pCO2 VBG HCO3 VBG Total CO2 VBG O2 Sat (Calc) VBG Base Excess VBG Potassium Sodium 132 Chloride 90 L Glucose Lactate FiO2 Potassium 4.9 Carbon Dioxide 26 Anion Gap 21 H BUN 78 H Creatinine 5.5 H Est GFR ( Amer) 9 Est GFR (Non-Af Amer) 7 Random Glucose 98 Calcium 9.1 Total Bilirubin 1.0 AST 206 H D ALT 162 H D Alkaline Phosphatase 137 H Total Protein 5.8 L Albumin 3.4 L Globulin 2.4 Albumin/Globulin Ratio 1.4 Venous Blood Potassium
[2018-07-11] MEDS: Acetaminophen-Codeine 300/30 mg Tab PO PRN (17:52)
--- NOTE | 2018-07-11 20:01 | CARD ---
APPROVED REPORT Date of service: 07/11/2018 EKG Measurement Heart [id number] <Conclusion> Atrial fibrillation with rapid ventricular response ST & T wave abnormality, consider lateral ischemia Abnormal ECG
[2018-07-12] MEDS: Piperacillin/Tazobact 3.375 GM in Sodium Chloride 0.9% 100 ML IVPB SCH ×4 (04:33→21:26)
[2018-07-12] MEDS: Acetaminophen-Codeine 300/30 mg Tab PO PRN (04:40)
--- NOTE | 2018-07-12 07:45 | CP.PCM.PN ---
Subjective - Date & Time of Evaluation Date of Evaluation: 07/12/18 Time of Evaluation: 07:43 - Subjective Subjective: SURGERY NOTE FOR DR. ALMENDAREZ 77F seen at bedside. No acute events overnight. Per IR fluid seen on CT not amendable for IR drainage and also note fluid may not be a collection and may be part of ascites. Recommend IV contrast CT. Objective - Vital Signs/Intake and Output Vital Signs (last 24 hours): Temp Pulse Resp BP Pulse Ox 97.5 F L 100 H 18 140/78 97 07/12/18 05:00 07/12/18 05:00 07/12/18 05:00 07/12/18 05:00 07/12/18 05:00 - Medications Medications: Current Medications Acetaminophen/Codeine Phosphate (Tylenol/Codeine 300 Mg/30 Mg) 1 tab PO TID PRN PRN Reason: Pain, moderate (4-7) Last Admin: 07/12/18 04:40 Dose: 1 tab Diltiazem HCl (Cardizem Cd) 180 mg PO DAILY [facility] Last Admin: 07/11/18 09:15 Dose: Not Given Hydromorphone HCl (Dilaudid) 1 mg IVP Q6 PRN PRN Reason: Pain, moderate (4-7) Last Admin: 07/11/18 00:01 Dose: 1 mg Piperacillin Sod/Tazobactam (Sod 3.375 gm/ Sodium Chloride) 100 mls @ 100 mls/hr IVPB Q6 [facility]; Protocol Last Admin: 07/12/18 04:33 Dose: Not Given Labetalol HCl (Trandate) 100 mg PO BID PRN PRN Reason: Systolic Blood Pressure Lisinopril (Zestril) 5 mg PO DAILY [facility] Last Admin: 07/11/18 09:16 Dose: Not Given Lorazepam (Ativan) 0.5 mg IVP BID PRN PRN Reason: Agitation Last Admin: 07/11/18 16:12 Dose: 0.5 mg Ondansetron HCl (Zofran Inj) 4 mg IVP Q6 PRN PRN Reason: Nausea/Vomiting Last Admin: 07/11/18 09:30 Dose: 4 mg Pantoprazole Sodium (Protonix Inj) 40 mg IVP DAILY [facility] Last Admin: 07/11/18 09:15 Dose: Not Given - Labs Labs: 07/11/18 08:06 12/27/18 08:06 PT 14.2 Seconds (9.8-13.1) H 07/11/18 08:06 INR 1.3 07/11/18 08:06 APTT 29.1 Seconds (25.6-37.1) 07/11/18 08:06 - Constitutional Appears: Non-toxic, No Acute Distress - Respiratory Exam Respiratory Exam: Clear to Ausculation Bilateral, NORMAL BREATHING PATTERN - Cardiovascular Exam Cardiovascular Exam: REGULAR RHYTHM, +S1, +S2 - GI/Abdominal Exam GI & Abdominal Exam: Soft. absent: Distended, Firm, Guarding, Rigid, Tenderness, Rebound - Neurological Exam Neurological Exam: Alert, Awake Assessment and Plan - Assessment and Plan (Free Text) Assessment: 77F with poss pelvic fluid collection and ascites Plan: - continue regular diet - Patient will need CT abd with IV/PO contrast - Will speak to Modeling Director about coordination with dialysis Discussed with Dr. Meghann Major, PGY3
[2018-07-12] MEDS ORDERED: Iohexol 240 (50 ml) PO ONE ×2 (08:18)
[2018-07-12] MEDS ORDERED: Lidocaine 2% Jelly (5 ml) TOP ONE (08:32)
[2018-07-12] MEDS ORDERED: Lidocaine 2% GEL TOP ONE (09:15)
[2018-07-12] MEDS: diltiaZEM 180 mg/24 Hours CD Cap PO SCH (09:34)
--- NOTE | 2018-07-12 10:41 | CP.PCM.PCO ---
Assessment/Plan - Assessment and Plan (Free Text) Assessment: Pt seen today, awake alert in no distress. family at bedside. Plan for PICC line in am for iv abx and CT scan with contrast Then CT scan this afternoon HD will be scheduled for tomorrow morning. All this discussed with Dr Benedict who agrees.
[2018-07-12] MEDS ORDERED: Lidocaine 1% Inj (20ml) ONE (11:40)
--- NOTE | 2018-07-12 12:03 | PCM.SURG1 ---
Surgeon's Initial Post Op Note - Surgeon's Notes Surgeon: Emery Latif MD Director Of Category Management: NONE Type of Anesthesia: Local Pre-Operative Diagnosis: Infection Operative Findings: US showed patent brachial vein. Unable to advance guidewire into SVC. Possible subclavian vein stenosis. Post-Operative Diagnosis: Infection Operation Performed: Midline PICC placement, 20 cm. Specimen/Specimens Removed: NONE Estimated Blood Loss: EBL {In ML}: 2 Blood Products Given: N/A Drains Used: No Drains Post-Op Condition: Fair Date of Surgery/Procedure: 07/12/18 Time of Surgery/Procedure: 12:00
--- NOTE | 2018-07-12 12:34 | CP.PCM.PN ---
Subjective - Date & Time of Evaluation Date of Evaluation: 07/12/18 Time of Evaluation: 12:34 - Subjective Subjective: Patient awake and conscious not in acute distress Vital signs stable No chest pain no shortness of breath Objective - Vital Signs/Intake and Output Vital Signs (last 24 hours): Temp Pulse Resp BP Pulse Ox 97.3 F L 101 H 19 138/79 97 07/12/18 12:05 07/12/18 12:05 07/12/18 12:05 07/12/18 12:05 07/12/18 12:05 - Medications Medications: Current Medications Acetaminophen/Codeine Phosphate (Tylenol/Codeine 300 Mg/30 Mg) 1 tab PO TID PRN PRN Reason: Pain, moderate (4-7) Last Admin: 07/12/18 04:40 Dose: 1 tab Diltiazem HCl (Cardizem Cd) 180 mg PO DAILY [facility] Last Admin: 07/12/18 09:34 Dose: 180 mg Hydromorphone HCl (Dilaudid) 1 mg IVP Q6 PRN PRN Reason: Pain, moderate (4-7) Last Admin: 07/11/18 00:01 Dose: 1 mg Piperacillin Sod/Tazobactam (Sod 3.375 gm/ Sodium Chloride) 100 mls @ 100 mls/hr IVPB Q6 [facility]; Protocol Last Admin: 07/12/18 04:33 Dose: Not Given Iohexol (Omnipaque 240 (50 Ml)) 100 ml PO ONCE ONE Stop: 07/12/18 08:19 Labetalol HCl (Trandate) 100 mg PO BID PRN PRN Reason: Systolic Blood Pressure Last Admin: 07/12/18 09:34 Dose: 100 mg Lisinopril (Zestril) 5 mg PO DAILY [facility] Last Admin: 07/12/18 09:34 Dose: 5 mg Lorazepam (Ativan) 0.5 mg IVP BID PRN PRN Reason: Agitation Last Admin: 07/11/18 16:12 Dose: 0.5 mg Ondansetron HCl (Zofran Inj) 4 mg IVP Q6 PRN PRN Reason: Nausea/Vomiting Last Admin: 07/11/18 09:30 Dose: 4 mg Pantoprazole Sodium (Protonix Inj) 40 mg IVP DAILY [facility] Last Admin: 07/11/18 09:15 Dose: Not Given - Labs Labs: 07/11/18 08:06 07/11/18 08:06 PT 14.2 Seconds (9.8-13.1) H 07/11/18 08:06 INR 1.3 07/11/18 08:06 APTT 29.1 Seconds (25.6-37.1) 07/11/18 08:06 - Constitutional Appears: No Acute Distress - Eye Exam Eye Exam: Conjunctival injection - ENT Exam ENT Exam: Mucous Membranes Moist - Neck Exam Neck Exam: absent: Lymphadenopathy - Respiratory Exam Respiratory Exam: NORMAL BREATHING PATTERN. absent: Chest Wall Tenderness - Cardiovascular Exam Cardiovascular Exam: absent: Gallop, JVD, Rubs - GI/Abdominal Exam GI & Abdominal Exam: Soft, Normal Bowel Sounds - Extremities Exam Extremities Exam: absent: Calf Tenderness - Back Exam Back Exam: absent: CVA tenderness (L), CVA tenderness (R) - Neurological Exam Neurological Exam: Altered - Skin Skin Exam: absent: Cyanosis Assessment and Plan (1) ESRD (end stage renal disease) on dialysis Assessment & Plan: Patient with end-stage renal disease on maintenance hemodialysis twice a week Admitted with pelvic collection on CAT scan and rectal pain History of secondary hyperparathyroidism History of hyperphosphatemia Hypertension Plan Patient scheduled to have PICC line which is just completed because of the antibiotics Patient scheduled to have CT scan with IV and oral contrast later Patient scheduled to have hemodialysis early tomorrow morning post intravenous contrast of CAT scan Antibiotics with a renal dose adjustment Status: Acute
--- NOTE | 2018-07-12 12:43 | VASCULAR ---
PROCEDURE: Date of procedure: 07/12/2018 Procedure: 1. Placement of a right arm PICC with ultrasound and fluoroscopic guidance, CPT 72208 2. PICC tip confirmation with spot radiograph and is in the superior vena cava Medications: 1 percent lidocaine Total Fluoro time: 18.9 Seconds Radiation: 1.34 MGy EBL: 2 cc HISTORY: Infection requiring long-term IV antibiotics TECHNIQUE: Following informed consent and procedure time-out, the patient was placed supine on the interventional table and the right arm prepped and draped in the usual sterile fashion. Ultrasound showed a patent and compressible right brachial vein. After the skin was anesthetized with lidocaine, the brachial vein was accessed with micro micropuncture technique using ultrasound guidance. A guidewire was then advanced under fluoroscopic guidance into the subclavian vein. The guidewire could not be advanced into the superior vena cava. An image documenting ultrasound guidance for vascular access was permanently saved. The length of the single-lumen 4 [place] PICC was trimmed to 20 centimeters and advanced through a peel-away sheath. The PICC was position with tip of PICC confirm a spot radiograph the proximal subclavian vein. The PICC was secured to the patient's skin. The PICC was flushed. A biopatch and sterile dressing was applied. IMPRESSION: Placement of a single-lumen 4 [place] PICC trimmed to 20 centimeters via right brachial vein. The tip of the PICC is confirmed with spot radiograph and is in the proximal subclavian vein.
[2018-07-12] MEDS ORDERED: Iohexol 300 100 ML IJ ONE (17:14)
[2018-07-12] MEDS ORDERED: Sodium Chloride 0.9% 50 ML IV ONE (17:15)
--- NOTE | 2018-07-12 19:08 | CT ---
Date of service: 07/12/2018 PROCEDURE: CT Abdomen and Pelvis with contrast HISTORY: eval poss pelvic collection, r/o anal abscess COMPARISON: 07/10/2018 TECHNIQUE: Contrast dose: 90 mL Omnipaque 300 Radiation dose: Total exam DLP = 826.24 mGy-cm. This CT exam was performed using one or more of the following dose reduction techniques: Automated exposure control, adjustment of the mA and/or kV according to patient size, and/or use of iterative reconstruction technique. FINDINGS: LOWER THORAX: Small right pleural effusion. Trace left pleural effusion. Bilateral minimal lower lobe subsegmental atelectasis. Cardiomegaly. LIVER: Normal size and contour. Diminished attenuation diffusely consistent with fatty infiltration. Nonspecific rounded low-attenuation mass in the inferior right hepatic lobe, 1.9 cm. No other mass. No biliary ductal dilatation. GALLBLADDER AND BILE DUCTS: Unremarkable. PANCREAS: Unremarkable. No gross lesion or ductal dilatation. SPLEEN: Band-like defect region nonenhancement through the spleen likely reflecting infarct of indeterminate age. This is likely unchanged from prior CT examination, performed without intravenous contrast administration. This is likely present on noncontrast CT of 05/16/2018 as well. No mass. Normal size. ADRENALS: Unremarkable. No mass. KIDNEYS AND URETERS: Atrophic right kidney. Atrophic left kidney with large lower pole cortical cyst, 6.2 cm. Unchanged. VASCULATURE: No aneurysm. Extensive atherosclerotic calcification of the abdominal aorta and iliac vessels. BOWEL: Sigmoid diverticulosis. No evidence of diverticulitis. No bowel obstruction. There is circumferential mural thickening of the ascending, transverse and descending colon consistent with nonspecific colitis. Possible infectious or inflammatory etiology. No evidence of perianal abscess. APPENDIX: Not identified. PERITONEUM: Ascites. Mild anasarca. LYMPH NODES: Unremarkable. No enlarged lymph nodes. BLADDER: Unremarkable. REPRODUCTIVE: Postmenopausal uterus. Please note that there is marked thickening of the vaginal kearney representing interval change from the prior CT of 07/10/2018. Concerning for infectious etiology. Correlate with direct visual inspection. Status post hysterectomy. BONES: No acute fracture. OTHER FINDINGS: None. IMPRESSION: Nonspecific colitis involving the ascending, transverse and descending colon. Marked thickening of the vaginal kearney common nonspecific. Please correlate with direct visual inspection to rule out infectious etiology. Small bilateral pleural effusion. Cardiomegaly. Ascites. Anasarca. No evidence of perianal abscess.
[2018-07-12] MEDS: Ammonium Lactate 12% Cream (140 g) TOP SCH (21:43)
[2018-07-13] MEDS: Piperacillin/Tazobact 3.375 GM in Sodium Chloride 0.9% 100 ML IVPB SCH ×4 (04:45→22:07)
--- NOTE | 2018-07-13 06:12 | CP.PCM.PN ---
Subjective - Date & Time of Evaluation Date of Evaluation: 07/13/18 Time of Evaluation: 06:10 - Subjective Subjective: SURGERY NOTE FOR DR. ALMENDAREZ 77F seen and examined at bedside. No acute events overnight. Patient tolerating diet, complains of mild abdominal pain and pain in perineal region. Has flatus and BMs. No N/V. Objective - Vital Signs/Intake and Output Vital Signs (last 24 hours): Temp Pulse Resp BP Pulse Ox 97.4 F L 105 H 18 127/74 96 07/13/18 05:00 07/13/18 05:00 07/13/18 05:00 07/13/18 05:00 07/13/18 05:00 - Medications Medications: Current Medications Acetaminophen/Codeine Phosphate (Tylenol/Codeine 300 Mg/30 Mg) 1 tab PO TID PRN PRN Reason: Pain, moderate (4-7) Last Admin: 07/12/18 04:40 Dose: 1 tab Diltiazem HCl (Cardizem Cd) 180 mg PO DAILY [facility] Last Admin: 07/12/18 09:34 Dose: 180 mg Hydromorphone HCl (Dilaudid) 1 mg IVP Q6 PRN PRN Reason: Pain, moderate (4-7) Last Admin: 07/12/18 14:19 Dose: 1 mg Piperacillin Sod/Tazobactam (Sod 3.375 gm/ Sodium Chloride) 100 mls @ 100 mls/hr IVPB Q6 [facility]; Protocol Last Admin: 07/13/18 04:45 Dose: 100 mls/hr Labetalol HCl (Trandate) 100 mg PO BID PRN PRN Reason: Systolic Blood Pressure Last Admin: 07/12/18 09:34 Dose: 100 mg Lactic Acid (Lac-Hydrin 12% Cream (140 G)) 1 ea TOP BID [facility] Last Admin: 07/12/18 21:43 Dose: 1 applic Lisinopril (Zestril) 5 mg PO DAILY [facility] Last Admin: 07/12/18 09:34 Dose: 5 mg Lorazepam (Ativan) 0.5 mg IVP BID PRN PRN Reason: Agitation Last Admin: 07/11/18 16:12 Dose: 0.5 mg Ondansetron HCl (Zofran Inj) 4 mg IVP Q6 PRN PRN Reason: Nausea/Vomiting Last Admin: 07/11/18 09:30 Dose: 4 mg Pantoprazole Sodium (Protonix Inj) 40 mg IVP DAILY [facility] Last Admin: 07/12/18 14:20 Dose: 40 mg - Labs Labs: 07/11/18 08:06 07/11/18 08:06 PT 14.2 Seconds (9.8-13.1) H 07/11/18 08:06 INR 1.3 07/11/18 08:06 APTT 29.1 Seconds (25.6-37.1) 07/11/18 08:06 - Constitutional Appears: Non-toxic, No Acute Distress - Respiratory Exam Respiratory Exam: Clear to Ausculation Bilateral, NORMAL BREATHING PATTERN - Cardiovascular Exam Cardiovascular Exam: REGULAR RHYTHM, +S1, +S2 - GI/Abdominal Exam GI & Abdominal Exam: Soft, Tenderness (very mild). absent: Distended, Firm, Guarding, Rigid, Rebound - Neurological Exam Neurological Exam: Alert, Awake - Skin Skin Exam: Dry, Intact, Normal Color, Warm Assessment and Plan - Assessment and Plan (Free Text) Assessment: 77F with non specific colitis as seen on CT scan, and also vaginal wall thickening on CT scan. No evidence of abscess. Plan: - Recommending OBGYN consult, CT scan findings - Continue diet as tolerated - Pain control - IV Fluids - Continue with IV antibiotics - Monitor labs Further recs discuss with Dr. Meghann Major, PGY3
[2018-07-13 07:02] LABS: BASO # 0.1 K/uL (0.0-0.2); BASO % 1.4 % (0.0-2.0); EOS # 0.2 K/uL (0.0-0.7); EOS % 2.6 % (0.0-4.0); HEMOGLOBIN 11.8 g/dL (12.0-16.0); LYMPH # 1.1 K/uL (1.0-4.3); LYMPH % 17.6 % (20.0-40.0); MEAN CELL VOLUME 92.5 fl (81.0-99.0); MEAN CORPUSCULAR HEMOGLOBIN 29.2 pg (27.0-31.0); MEAN CORPUSCULAR HGB CONC 31.6 g/dL (33.0-37.0); MONO % 15.3 % (0.0-10.0); NEUT % 63.1 % (50.0-75.0); NRBC % 0.1 % (0.0-0.0); RBC 4.03 Mil/uL (3.80-5.20); RED CELL DISTRIBUTION WIDTH 18.3 % (11.5-14.5); WHITE BLOOD COUNT 6.3 K/uL (4.8-10.8)
[2018-07-13 07:36] LABS: ALB/GLOB RATIO 1.4 (1.0-2.1); ALBUMIN 3.5 g/dL (3.5-5.0); CALCIUM 9.1 mg/dL (8.4-10.2)
[2018-07-13] MEDS: diltiaZEM 180 mg/24 Hours CD Cap PO SCH (10:24)
[2018-07-13] MEDS: Ammonium Lactate 12% Cream (140 g) TOP SCH ×2 (11:19→18:27)
--- NOTE | 2018-07-13 13:54 | CP.PCM.PN ---
Subjective - Date & Time of Evaluation Date of Evaluation: 07/13/18 Time of Evaluation: 13:52 - Subjective Subjective: RENAL s: seen and examined no acute events o/n o: vs as below gen: nad sclear: anicteric op: clear neck: supple no thyromegaly cv: +S1+s2 no rub lungs: CTA b/l abd: soft nt/nd no organomegaly ext: no edema neuro: a+Ox3 no focal defecit psych: flat skin No rash labs reviewed imp: ESRD/ Hypertensive kidney disease/ Anemia of renal disease/ Secondary hyperparathyroidism plan: HD TTS bp stable hgb stable will check phos to see if needs to be on binder will order ipth Objective - Vital Signs/Intake and Output Vital Signs (last 24 hours): Temp Pulse Resp BP Pulse Ox 98 F 100 H 20 157/90 H 97 07/13/18 12:40 07/13/18 12:40 07/13/18 12:40 07/13/18 12:40 07/13/18 12:40 - Medications Medications: Current Medications Acetaminophen (Tylenol 325mg Tab) 650 mg PO Q6 PRN PRN Reason: Pain, Mild (1-3) Acetaminophen/Codeine Phosphate (Tylenol/Codeine 300 Mg/30 Mg) 1 tab PO TID PRN PRN Reason: Pain, moderate (4-7) Last Admin: 07/12/18 04:40 Dose: 1 tab Diltiazem HCl (Cardizem Cd) 180 mg PO DAILY [facility] Last Admin: 07/12/18 09:34 Dose: 180 mg Hydromorphone HCl (Dilaudid) 1 mg IVP Q6 PRN PRN Reason: Pain, moderate (4-7) Last Admin: 07/12/18 14:19 Dose: 1 mg Piperacillin Sod/Tazobactam (Sod 3.375 gm/ Sodium Chloride) 100 mls @ 100 mls/hr IVPB Q6 [facility]; Protocol Last Admin: 07/13/18 10:18 Dose: 100 mls/hr Labetalol HCl (Trandate) 100 mg PO BID PRN PRN Reason: Systolic Blood Pressure Last Admin: 07/12/18 09:34 Dose: 100 mg Lactic Acid (Lac-Hydrin 12% Cream (140 G)) 1 ea TOP BID [facility] Last Admin: 07/13/18 11:19 Dose: 1 applic Lisinopril (Zestril) 5 mg PO DAILY [facility] Last Admin: 07/12/18 09:34 Dose: 5 mg Lorazepam (Ativan) 0.5 mg IVP BID PRN PRN Reason: Agitation Last Admin: 07/11/18 16:12 Dose: 0.5 mg Ondansetron HCl (Zofran Inj) 4 mg IVP Q6 PRN PRN Reason: Nausea/Vomiting Last Admin: 07/11/18 09:30 Dose: 4 mg Pantoprazole Sodium (Protonix Inj) 40 mg IVP DAILY [facility] Last Admin: 07/13/18 11:20 Dose: 40 mg - Labs Labs: 07/13/18 05:30 07/13/18 05:30 PT 14.2 Seconds (9.8-13.1) H 07/11/18 08:06 INR 1.3 07/11/18 08:06 APTT 29.1 Seconds (25.6-37.1) 07/11/18 08:06
[2018-07-14] MEDS: Piperacillin/Tazobact 3.375 GM in Sodium Chloride 0.9% 100 ML IVPB SCH (04:46)
[2018-07-14] MEDS: Ammonium Lactate 12% Cream (140 g) TOP SCH ×2 (08:54→18:15)
[2018-07-14] MEDS: diltiaZEM 180 mg/24 Hours CD Cap PO SCH (08:55)
--- NOTE | 2018-07-14 09:21 | CP.PCM.PN ---
Subjective - Date & Time of Evaluation Date of Evaluation: 07/14/18 Time of Evaluation: 09:19 - Subjective Subjective: General Surgery: Dr Zavaleta Pt S&E. COLIN. Reports no abdominal pain at this time. Tolerating diet. Denies N/V. Repeat imaging showed no pelvic collection. OBGYN evaluation recommended. Objective - Vital Signs/Intake and Output Vital Signs (last 24 hours): Temp Pulse Resp BP Pulse Ox 98.2 F 118 H 20 145/86 96 07/14/18 08:36 07/14/18 08:55 07/14/18 08:36 07/14/18 08:55 07/14/18 08:36 - Medications Medications: Current Medications Acetaminophen (Tylenol 325mg Tab) 650 mg PO Q6 PRN PRN Reason: Pain, Mild (1-3) Last Admin: 07/14/18 02:18 Dose: 650 mg Acetaminophen/Codeine Phosphate (Tylenol/Codeine 300 Mg/30 Mg) 1 tab PO TID PRN PRN Reason: Pain, moderate (4-7) Last Admin: 07/12/18 04:40 Dose: 1 tab Diltiazem HCl (Cardizem Cd) 180 mg PO DAILY [facility] Last Admin: 07/14/18 08:55 Dose: 180 mg Piperacillin Sod/Tazobactam (Sod 3.375 gm/ Sodium Chloride) 100 mls @ 100 mls/hr IVPB Q6 [facility]; Protocol Last Admin: 07/14/18 04:46 Dose: Not Given Labetalol HCl (Trandate) 100 mg PO BID PRN PRN Reason: Systolic Blood Pressure Last Admin: 07/14/18 08:55 Dose: 100 mg Lactic Acid (Lac-Hydrin 12% Cream (140 G)) 1 ea TOP BID [facility] Last Admin: 07/14/18 08:54 Dose: 1 applic Lisinopril (Zestril) 5 mg PO DAILY [facility] Last Admin: 07/14/18 08:55 Dose: 5 mg Lorazepam (Ativan) 0.5 mg IVP BID PRN PRN Reason: Agitation Last Admin: 07/11/18 16:12 Dose: 0.5 mg Ondansetron HCl (Zofran Inj) 4 mg IVP Q6 PRN PRN Reason: Nausea/Vomiting Last Admin: 07/11/18 09:30 Dose: 4 mg Pantoprazole Sodium (Protonix Inj) 40 mg IVP DAILY [facility] Last Admin: 07/14/18 08:58 Dose: Not Given - Labs Labs: 07/13/18 05:30 07/13/18 05:30 PT 14.2 Seconds (9.8-13.1) H 07/11/18 08:06 INR 1.3 07/11/18 08:06 APTT 29.1 Seconds (25.6-37.1) 07/11/18 08:06 - Constitutional Appears: Non-toxic, No Acute Distress - ENT Exam ENT Exam: Mucous Membranes Moist - Respiratory Exam Respiratory Exam: absent: Respiratory Distress - Cardiovascular Exam Cardiovascular Exam: absent: Tachycardia - GI/Abdominal Exam GI & Abdominal Exam: Soft. absent: Distended, Firm, Tenderness Assessment and Plan - Assessment and Plan (Free Text) Assessment: 77F with colitis and vaginal wall thickening on exam; symptoms resolving Plan: abx and HD as per primary/renal no surgical intervention required cont to recommend OBGYN evaluation will sign off, please reconsult if necessary d/w Dr Meghann Blandon, PGY4
--- NOTE | 2018-07-15 06:26 | CP.PCM.PN ---
Subjective - Date & Time of Evaluation Date of Evaluation: 07/12/18 Time of Evaluation: 11:00 - Subjective Subjective: Patient has very poor appetite Noted persistently elevated liver enzymes Has no fever Has no vomiting Has some diarrhea. Very poor appetite. Objective - Vital Signs/Intake and Output Vital Signs (last 24 hours): Temp Pulse Resp BP Pulse Ox 97.9 F 103 H 18 109/58 L 97 07/15/18 04:35 07/15/18 04:35 07/15/18 04:35 07/15/18 04:35 07/15/18 04:35 - Medications Medications: Current Medications Acetaminophen (Tylenol 325mg Tab) 650 mg PO Q6 PRN PRN Reason: Pain, Mild (1-3) Last Admin: 07/14/18 09:34 Dose: 650 mg Acetaminophen/Codeine Phosphate (Tylenol/Codeine 300 Mg/30 Mg) 1 tab PO TID PRN PRN Reason: Pain, moderate (4-7) Last Admin: 07/12/18 04:40 Dose: 1 tab Ciprofloxacin (Cipro) 500 mg PO DAILY [facility]; Protocol Last Admin: 07/14/18 13:55 Dose: 500 mg Diltiazem HCl (Cardizem Cd) 180 mg PO DAILY [facility] Last Admin: 07/14/18 08:55 Dose: 180 mg Labetalol HCl (Trandate) 100 mg PO BID PRN PRN Reason: Systolic Blood Pressure Last Admin: 07/14/18 08:55 Dose: 100 mg Lactic Acid (Lac-Hydrin 12% Cream (140 G)) 1 ea TOP BID [facility] Last Admin: 07/14/18 18:15 Dose: 1 applic Lisinopril (Zestril) 5 mg PO DAILY [facility] Last Admin: 07/14/18 08:55 Dose: 5 mg Lorazepam (Ativan) 0.5 mg PO Q12 PRN PRN Reason: Agitation Last Admin: 07/14/18 13:54 Dose: 0.5 mg Metronidazole (Flagyl) 250 mg PO Q8 [facility]; Protocol Last Admin: 07/15/18 01:42 Dose: 250 mg Ondansetron HCl (Zofran Inj) 4 mg IVP Q6 PRN PRN Reason: Nausea/Vomiting Last Admin: 07/11/18 09:30 Dose: 4 mg Pantoprazole Sodium (Protonix Inj) 40 mg IVP DAILY [facility] Last Admin: 07/14/18 08:58 Dose: Not Given - Labs Labs: 07/13/18 05:30 07/13/18 05:30 PT 14.2 Seconds (9.8-13.1) H 07/11/18 08:06 INR 1.3 07/11/18 08:06 APTT 29.1 Seconds (25.6-37.1) 07/11/18 08:06 - Head Exam Head Exam: NORMAL INSPECTION - Eye Exam Eye Exam: Normal appearance - ENT Exam ENT Exam: Mucous Membranes Moist - Respiratory Exam Respiratory Exam: Clear to Ausculation Bilateral - Cardiovascular Exam Cardiovascular Exam: REGULAR RHYTHM - GI/Abdominal Exam GI & Abdominal Exam: Soft, Tenderness Assessment and Plan (1) Colitis Status: Acute (2) Abnormal liver enzymes Status: Acute (3) Hypodense mass of liver Status: Acute (4) Ascites Status: Acute (5) ESRD (end stage renal disease) on dialysis Status: Acute (6) Aortic stenosis Status: Acute - Assessment and Plan (Free Text) Assessment: Cont meds Cont tx Gi and infectious consult for repeat CT scan.abdomen
--- NOTE | 2018-07-15 06:33 | CP.PCM.PN ---
Subjective - Date & Time of Evaluation Date of Evaluation: 07/13/18 Time of Evaluation: 11:00 - Subjective Subjective: Has very poor appetite Has no fever Repeat Ct scan of the abdomen showed aguilar colitis. and showed no vaginal abscess. There is a significant ascites. Noted increase in liver enzymes. Objective - Vital Signs/Intake and Output Vital Signs (last 24 hours): Temp Pulse Resp BP Pulse Ox 97.9 F 103 H 18 109/58 L 97 07/15/18 04:35 07/15/18 04:35 07/15/18 04:35 07/15/18 04:35 07/15/18 04:35 - Medications Medications: Current Medications Acetaminophen (Tylenol 325mg Tab) 650 mg PO Q6 PRN PRN Reason: Pain, Mild (1-3) Last Admin: 07/14/18 09:34 Dose: 650 mg Acetaminophen/Codeine Phosphate (Tylenol/Codeine 300 Mg/30 Mg) 1 tab PO TID PRN PRN Reason: Pain, moderate (4-7) Last Admin: 07/12/18 04:40 Dose: 1 tab Ciprofloxacin (Cipro) 500 mg PO DAILY [facility]; Protocol Last Admin: 07/14/18 13:55 Dose: 500 mg Diltiazem HCl (Cardizem Cd) 180 mg PO DAILY [facility] Last Admin: 07/14/18 08:55 Dose: 180 mg Labetalol HCl (Trandate) 100 mg PO BID PRN PRN Reason: Systolic Blood Pressure Last Admin: 07/14/18 08:55 Dose: 100 mg Lactic Acid (Lac-Hydrin 12% Cream (140 G)) 1 ea TOP BID [facility] Last Admin: 07/14/18 18:15 Dose: 1 applic Lisinopril (Zestril) 5 mg PO DAILY [facility] Last Admin: 07/14/18 08:55 Dose: 5 mg Lorazepam (Ativan) 0.5 mg PO Q12 PRN PRN Reason: Agitation Last Admin: 07/14/18 13:54 Dose: 0.5 mg Metronidazole (Flagyl) 250 mg PO Q8 [facility]; Protocol Last Admin: 07/15/18 01:42 Dose: 250 mg Ondansetron HCl (Zofran Inj) 4 mg IVP Q6 PRN PRN Reason: Nausea/Vomiting Last Admin: 07/11/18 09:30 Dose: 4 mg Pantoprazole Sodium (Protonix Inj) 40 mg IVP DAILY [facility] Last Admin: 07/14/18 08:58 Dose: Not Given - Labs Labs: 07/13/18 05:30 07/13/18 05:30 PT 14.2 Seconds (9.8-13.1) H 07/11/18 08:06 INR 1.3 07/11/18 08:06 APTT 29.1 Seconds (25.6-37.1) 07/11/18 08:06 - Head Exam Head Exam: NORMAL INSPECTION - Eye Exam Eye Exam: Normal appearance - ENT Exam ENT Exam: Mucous Membranes Moist - Respiratory Exam Respiratory Exam: Clear to Ausculation Bilateral - Cardiovascular Exam Cardiovascular Exam: REGULAR RHYTHM - GI/Abdominal Exam GI & Abdominal Exam: Normal Bowel Sounds - Neurological Exam Neurological Exam: Awake Assessment and Plan (1) Colitis Status: Acute (2) Abnormal liver enzymes Status: Acute (3) Hypodense mass of liver Status: Acute (4) Ascites Status: Acute (5) ESRD (end stage renal disease) on dialysis Status: Acute (6) Aortic stenosis Status: Acute - Assessment and Plan (Free Text) Plan: Cont meds Folow up with GI check labs encouraged increase intake cont hemodialysis
--- NOTE | 2018-07-15 06:35 | CP.PCM.PN ---
Subjective - Date & Time of Evaluation Date of Evaluation: 07/14/18 Time of Evaluation: 14:00 - Subjective Subjective: Patient remains stable Very poor appetite Continues to have elevation of liver enzymes. Objective - Vital Signs/Intake and Output Vital Signs (last 24 hours): Temp Pulse Resp BP Pulse Ox 97.9 F 103 H 18 109/58 L 97 07/15/18 04:35 07/15/18 04:35 07/15/18 04:35 07/15/18 04:35 07/15/18 04:35 - Medications Medications: Current Medications Acetaminophen (Tylenol 325mg Tab) 650 mg PO Q6 PRN PRN Reason: Pain, Mild (1-3) Last Admin: 07/14/18 09:34 Dose: 650 mg Acetaminophen/Codeine Phosphate (Tylenol/Codeine 300 Mg/30 Mg) 1 tab PO TID PRN PRN Reason: Pain, moderate (4-7) Last Admin: 07/12/18 04:40 Dose: 1 tab Ciprofloxacin (Cipro) 500 mg PO DAILY [facility]; Protocol Last Admin: 07/14/18 13:55 Dose: 500 mg Diltiazem HCl (Cardizem Cd) 180 mg PO DAILY [facility] Last Admin: 07/14/18 08:55 Dose: 180 mg Labetalol HCl (Trandate) 100 mg PO BID PRN PRN Reason: Systolic Blood Pressure Last Admin: 07/14/18 08:55 Dose: 100 mg Lactic Acid (Lac-Hydrin 12% Cream (140 G)) 1 ea TOP BID [facility] Last Admin: 07/14/18 18:15 Dose: 1 applic Lisinopril (Zestril) 5 mg PO DAILY [facility] Last Admin: 07/14/18 08:55 Dose: 5 mg Lorazepam (Ativan) 0.5 mg PO Q12 PRN PRN Reason: Agitation Last Admin: 07/14/18 13:54 Dose: 0.5 mg Metronidazole (Flagyl) 250 mg PO Q8 [facility]; Protocol Last Admin: 07/15/18 01:42 Dose: 250 mg Ondansetron HCl (Zofran Inj) 4 mg IVP Q6 PRN PRN Reason: Nausea/Vomiting Last Admin: 07/11/18 09:30 Dose: 4 mg Pantoprazole Sodium (Protonix Inj) 40 mg IVP DAILY [facility] Last Admin: 07/14/18 08:58 Dose: Not Given - Labs Labs: 07/13/18 05:30 07/13/18 05:30 PT 14.2 Seconds (9.8-13.1) H 07/11/18 08:06 INR 1.3 07/11/18 08:06 APTT 29.1 Seconds (25.6-37.1) 07/11/18 08:06 - Head Exam Head Exam: NORMAL INSPECTION - Eye Exam Eye Exam: Normal appearance - ENT Exam ENT Exam: Mucous Membranes Moist - Respiratory Exam Respiratory Exam: Decreased Breath Sounds - Cardiovascular Exam Cardiovascular Exam: Tachycardia - GI/Abdominal Exam GI & Abdominal Exam: Tenderness, Normal Bowel Sounds Assessment and Plan (1) Colitis Status: Acute (2) Abnormal liver enzymes Status: Acute (3) Hypodense mass of liver Status: Acute (4) Ascites Status: Acute (5) ESRD (end stage renal disease) on dialysis Status: Acute (6) Aortic stenosis Status: Acute - Assessment and Plan (Free Text) Plan: Cont meds repeat labs on am Gi eval check cancer markers
[2018-07-15] MEDS: diltiaZEM 180 mg/24 Hours CD Cap PO SCH (10:33)
[2018-07-15] MEDS: Ammonium Lactate 12% Cream (140 g) TOP SCH ×2 (10:52→18:32)
--- NOTE | 2018-07-15 12:51 | CP.PCM.PN ---
Subjective - Date & Time of Evaluation Date of Evaluation: 07/15/18 Time of Evaluation: 12:50 - Subjective Subjective: RENAL s: seen and examined no acute events o/n o: vs as below gen: nad sclear: anicteric op: clear neck: supple no thyromegaly cv: +S1+s2 no rub lungs: CTA b/l abd: soft nt/nd no organomegaly ext: no edema neuro: a+Ox3 no focal deficit psych: flat skin No rash labs reviewed imp: ESRD/ Hypertensive kidney disease/ Anemia of renal disease/ Secondary hyperparathyroidism plan: HD TTS bp stable hgb stable phos mildly elevated will start binder f/u ipth Objective - Vital Signs/Intake and Output Vital Signs (last 24 hours): Temp Pulse Resp BP Pulse Ox 98.1 F 106 H 18 127/75 99 07/15/18 11:55 07/15/18 11:55 07/15/18 11:55 07/15/18 11:55 07/15/18 11:55 - Medications Medications: Current Medications Acetaminophen (Tylenol 325mg Tab) 650 mg PO Q6 PRN PRN Reason: Pain, Mild (1-3) Last Admin: 07/15/18 10:55 Dose: 650 mg Acetaminophen/Codeine Phosphate (Tylenol/Codeine 300 Mg/30 Mg) 1 tab PO TID PRN PRN Reason: Pain, moderate (4-7) Last Admin: 07/12/18 04:40 Dose: 1 tab Ciprofloxacin (Cipro) 500 mg PO DAILY [facility]; Protocol Last Admin: 07/15/18 10:53 Dose: 500 mg Diltiazem HCl (Cardizem Cd) 180 mg PO DAILY [facility] Last Admin: 07/14/18 08:55 Dose: 180 mg Labetalol HCl (Trandate) 100 mg PO BID PRN PRN Reason: Systolic Blood Pressure Last Admin: 07/14/18 08:55 Dose: 100 mg Lactic Acid (Lac-Hydrin 12% Cream (140 G)) 1 ea TOP BID [facility] Last Admin: 07/15/18 10:52 Dose: 1 applic Lisinopril (Zestril) 5 mg PO DAILY [facility] Last Admin: 07/14/18 08:55 Dose: 5 mg Lorazepam (Ativan) 0.5 mg PO Q12 PRN PRN Reason: Agitation Last Admin: 07/14/18 13:54 Dose: 0.5 mg Metronidazole (Flagyl) 250 mg PO Q8 [facility]; Protocol Last Admin: 07/15/18 10:53 Dose: 250 mg Ondansetron HCl (Zofran Inj) 4 mg IVP Q6 PRN PRN Reason: Nausea/Vomiting Last Admin: 07/11/18 09:30 Dose: 4 mg Pantoprazole Sodium (Protonix Inj) 40 mg IVP DAILY [facility] Last Admin: 07/15/18 10:53 Dose: Not Given - Labs Labs: 07/13/18 05:30 07/13/18 05:30 PT 14.2 Seconds (9.8-13.1) H 07/11/18 08:06 INR 1.3 07/11/18 08:06 APTT 29.1 Seconds (25.6-37.1) 07/11/18 08:06
[2018-07-15 13:20] LABS: ALB/GLOB RATIO 1.3 (1.0-2.1); ALBUMIN 3.2 g/dL (3.5-5.0); BILIRUBIN,DIRECT 0.7 mg/ml (0.0-0.4)
--- NOTE | 2018-07-15 15:10 | CP.PCM.PCO ---
Assessment/Plan - Assessment and Plan (Free Text) Assessment: Patient seen and examined today. Diarrhea has stopped. Denies nausea or vomiting. Labs reviewed, lfts trending down. GI evaluated patient, recommends PO cipro and flagyl outpatient. Patient needs CT Liver and liver biopsy outpatient. Patient refusing to have Transvaginal us done inpatient, will follow up with her PCP for follow up. Discussed with Dr Del Rio who agrees. Discharge pending HD today.
[2018-07-15] MEDS ORDERED: Sevelamer Carb 0.8 gm/Packet PO SCH (17:00)
[2018-07-15 19:16] VITALS: BP 159/75; PULSE 109; RESP 17; TEMP 97.4; O2SAT 100
--- NOTE | 2018-07-17 08:35 | CON ---
DATE: 07/15/2018 REFERRING DOCTOR: Dr. Juan Carlos Del Rio. REASON FOR CONSULTATION: Lab findings and CAT scan findings. HISTORY OF PRESENT ILLNESS: This is a 77-year-old woman with history of , C. diff in the past, but reports no diarrhea, has rectal pain and constipation for the past couple of days. GI was called for elevation in LFTs. The patient currently is following diet, has no pain. No nausea. No vomiting. No weight loss. . Lying in bed comfortably, in no apparent distress. PAST MEDICAL HISTORY: As above. PAST SURGICAL HISTORY: As above. MEDICATIONS: Have been reviewed. REVIEW OF SYSTEMS: All other systems have been reviewed and negative apart from the HPI. PHYSICAL EXAMINATION: VITAL SIGNS: Here in the hospital, grossly unremarkable. GENERAL: A pleasant elderly female, lying in bed comfortably, in no apparent distress. HEENT: Head: Normocephalic and atraumatic. Eyes: Pupils are equally reactive to light bilaterally. No conjunctival pallor or icterus. NECK: Supple. Normal range of motion. No lymphadenopathy appreciated. LUNGS: Coarse breath sounds bilaterally. HEART: S1 and S2, regular rate and rhythm. No murmurs appreciated. ABDOMEN: Soft and nontender. Bowel sounds present. No rebound. No guarding. RECTAL: Deferred. EXTREMITIES: Pulses present bilaterally. SKIN: Warm, dry, and intact. NEUROLOGIC: A and O x3. LABORATORY DATA: Labs and radiology have been reviewed. WBC is 6.3, hemoglobin and platelets are stable. INR 1.3. Total bilirubin is normal. AST is 86, ALT 127, alk phos 151. CA 19-9 is 50 and CA-125 is 62. CAT scan of abdomen and pelvis done with IV contrast, n.p.o., shows questionable vaginal thickening, nonspecific colitis of the ascending, transverse, and descending colon, thickened vaginal vault, some bilateral effusion, anasarca and ascites as well as in the liver, there is a nonspecific mass in the hepatic dome of 0.9 cm. ASSESSMENT AND PLAN: This is a 77-year-old female with abdominal pain and distention and elevated LFT. LFT are are improving. The tumor markers are elevated. In this setting, recommend that the liver mass be biopsied, CT guided,and the vaginal vault thickening may require transvaginal ultrasound. All risks and benefits of operation as indicated. From a GI standpoint, no acute issues. Thank you for the consult. Hoang Villeda MD/ PhD cc: Juan Carlos Del Rio MD MTDD
== END 2018-07-15 20:30 | disposition home or self-care (01) | DRG 393 ==
LOC: H.ER 10:54 → H.ERHOLD 14:29 → H.TEL 16:56
PROVIDERS: ADMIT Family Medicine; ATTEND Family Medicine
PROC: 02HV33Z Insertion of Infusion Device into Superior Vena Cava, Percutaneous Approach (ICD-10-PCS; principal; 2018-07-11)
PROC: B518ZZA Fluoroscopy of Superior Vena Cava, Guidance (ICD-10-PCS; 2018-07-11)
PROC: B548ZZA Ultrasonography of Superior Vena Cava, Guidance (ICD-10-PCS; 2018-07-11)
PROC: 3E04329 Introduction of Other Anti-infective into Central Vein, Percutaneous Approach (ICD-10-PCS; 2018-07-11)
PROC: 5A1D70Z Performance of Urinary Filtration, Intermittent, Less than 6 Hours Per Day (ICD-10-PCS; 2018-07-11)
PROC: 5A1D70Z Performance of Urinary Filtration, Intermittent, Less than 6 Hours Per Day (ICD-10-PCS; 2018-07-13)
PROC: 5A1D70Z Performance of Urinary Filtration, Intermittent, Less than 6 Hours Per Day (ICD-10-PCS; 2018-07-15)
DX: K61.1 Rectal abscess (principal); N18.6 End stage renal disease; I13.2 Hypertensive heart and chronic kidney disease with heart failure and with stage 5 chronic kidney disease, or end stage renal disease; R18.8 Other ascites; N25.81 Secondary hyperparathyroidism of renal origin; N73.8 Other specified female pelvic inflammatory diseases; G30.9 Alzheimer's disease, unspecified; F02.80 Dementia in other diseases classified elsewhere, unspecified severity, without behavioral disturbance, psychotic disturbance, mood disturbance, and anxiety; K52.9 Noninfective gastroenteritis and colitis, unspecified; D63.1 Anemia in chronic kidney disease; Z91.15 Patient's noncompliance with renal dialysis; I35.0 Nonrheumatic aortic (valve) stenosis; I48.91 Unspecified atrial fibrillation; I50.9 Heart failure, unspecified; E78.5 Hyperlipidemia, unspecified; E78.00 Pure hypercholesterolemia, unspecified; R16.0 Hepatomegaly, not elsewhere classified; R74.8 Abnormal levels of other serum enzymes; F41.9 Anxiety disorder, unspecified; Z91.19 Patient's noncompliance with other medical treatment and regimen; Z99.2 Dependence on renal dialysis; Z87.01 Personal history of pneumonia (recurrent); Z88.1 Allergy status to other antibiotic agents

== ENCOUNTER 2018-07-28 17:57 | Emergency (ER) | payer MEDICARE ==
[2018-07-28 17:57] VITALS: BMI 17.2
[2018-07-28 18:15] VITALS: PULSE 78; RESP 18; TEMP 98.4; O2SAT 99
[2018-07-28] MEDS ORDERED: Albuterol-Ipratrop 3 mg / 0.5 (3 ml) UD INH STA ×2 (19:50→19:51)
[2018-07-28] MEDS ORDERED: Albuterol-Ipratrop 3 mg / 0.5 (3 ml) UD ONE (20:28)
[2018-07-28 20:34] LABS: VENOUS BLOOD GAS BASE EXCESS 1.5 mmol/L (0.0-2.0); VENOUS BLOOD GAS PCO2 46 mmHg (40-60); VENOUS BLOOD GAS PO2 31 mm/Hg (30-55); VENOUS BLOOD PH 7.38 (7.32-7.43)
[2018-07-28 20:38] LABS: BASO # 0.1 K/uL (0.0-0.2); BASO % 2.1 % (0.0-2.0); EOS # 0.1 K/uL (0.0-0.7); EOS % 2.6 % (0.0-4.0); HEMOGLOBIN 12.7 g/dL (12.0-16.0); LYMPH # 0.7 K/uL (1.0-4.3); LYMPH % 13.6 % (20.0-40.0); MEAN CORPUSCULAR HEMOGLOBIN 29.4 pg (27.0-31.0); MEAN CORPUSCULAR HGB CONC 32.4 g/dL (33.0-37.0); MEAN PLATELET VOLUME 10.3 fl (7.2-11.7); MONO # 0.7 K/uL (0.0-0.8); MONO % 13.3 % (0.0-10.0); NEUT # 3.5 K/uL (1.8-7.0); NEUT % 68.4 % (50.0-75.0); RBC 4.31 Mil/uL (3.80-5.20); RED CELL DISTRIBUTION WIDTH 18.3 % (11.5-14.5)
[2018-07-28 20:46] LABS: INR 1.2; PROTHROMBIN TIME 13.4 Seconds (9.8-13.1)
[2018-07-28 20:48] LABS: PARTIAL THROMBOPLASTIN TIME 29.8 Seconds (25.6-37.1)
[2018-07-28 21:13] LABS: CALCIUM 8.8 mg/dL (8.4-10.2)
--- NOTE | 2018-07-28 21:13 | ED PDOC ---
HPI: General Adult Time Seen by Provider: 07/28/18 18:56 Chief Complaint (Nursing): Cough, Cold, Congestion Chief Complaint (Provider): Facial and leg swelling History Per: Patient, Family (son) History/Exam Limitations: no limitations Onset/Duration Of Symptoms: Days (x 2 weeks) Additional Complaint(s): 78 year old female with a history of ESRD (dialysis Sunday and ), COPD, CHF and recently diagnosed colitis presents to the ED for evaluation of weakness and swelling to the face and legs. Son states that patient is feeling weak recently due to colitis and she missed her last dialysis treatment on . He states that she gained 30 pounds in the last two weeks and is complaining of upper back pain as well. Son reports that she experiences this pain when she retains fluids. Denies chest pain and shortness of breath. PMD: [place] home visits Past Medical History Reviewed: Historical Data, Nursing Documentation, Vital Signs Vital Signs: Last Vital Signs Temp 98.4 F 07/28/18 18:11 Pulse 78 07/28/18 18:11 Resp 18 07/28/18 18:11 BP 136/81 07/28/18 18:11 Pulse Ox 99 07/28/18 18:11 - Medical History PMH: Alzheimer's Disease, Anemia, Anxiety, CHF, Dementia, HTN, Hypercholesterolemia, Pneumonia, End Stage Renal Disease, Chronic Kidney Disease Denies: Arthritis, Asthma, Atrial Fibrillation, Bipolar Disorder, Bronchitis, CAD, Cardia Arrhythmia, COPD, Crohn's Disease, Depression, Diverticulitis, Emphysema, Fractures, Gastritis, Gall Bladder Disease, HIV, Hyperthyroidism, Hypothyroidism, Kidney Stones, Migraine, Mitral Valve Prolapse, Multiple Sclerosis, Osteoporosis, Pancreatitis, Paranoia, Parkinson's Disease, Peripheral Edema, Post Traumatic Stress Disorder, Pulmonary Embolism, Rheumatoid Arthritis, Schizophrenia, Seizures, Sickle Cell Disease, Sexually Transmitted Disease, Sl eep Apnea, TIA - Surgical History Surgical History: Appendectomy, Cholecystectomy, Tonsillectomy Denies: CABG, Carotid Endarterectomy, Coronary Stent, Pacemaker - Family History Family History: States: Unknown Family Hx, Hypertension - Immunization History Hx Tetanus Toxoid Vaccination: No Hx Influenza Vaccination: No Hx Pneumococcal Vaccination: No - Home Medications Home Medications: Ambulatory Orders Medication Instructions Recorded Atorvastatin [Lipitor] 20 mg PO DAILY 08/16/16 Labetalol [Trandate] 100 mg PO BID 08/16/16 amLODIPine [Norvasc] 5 mg PO DAILY 08/16/16 Calcium Carbonate [Oscal] 500 mg PO TID 10/16/17 Lisinopril [Zestril] 5 mg PO DAILY 01/24/18 Vitamin B Complex/Vit C/Folic 1 tab PO DAILY tab 04/01/18 [Nephro-Valentino] Memantine [Namenda] 5 mg PO DAILY #30 tab 04/24/18 Mirtazapine [Remeron] 15 mg PO HS #30 tab 04/24/18 Calcium Acetate [Phoslo] 667 mg PO TID 05/13/18 clonazePAM [Klonopin] 0.5 mg PO Q8 PRN 05/13/18 Meloxicam [Mobic] 7.5 mg PO DAILY 05/26/18 Ciprofloxacin [Cipro] 500 mg PO DAILY #14 tab 07/15/18 metroNIDAZOLE [Flagyl] 250 mg PO Q8 #20 tab 07/15/18 - Allergies Allergies/Adverse Reactions: Allergies Allergy/AdvReac Type Severity Reaction Status Date / Time vancomycin AdvReac REDNESS Verified 07/10/18 13:51 Review of Systems ROS Statement: Except As Marked, All Systems Reviewed And Found Negative Constitutional: Positive for: Weakness Cardiovascular: Negative for: Chest Pain, Palpitations Respiratory: Negative for: Shortness of Breath Musculoskeletal: Positive for: Other (swelling to the face and legs) Physical Exam - Reviewed Nursing Documentation Reviewed: Yes Vital Signs Reviewed: Yes - Physical Exam Appears: Positive for: Non-toxic, No Acute Distress (comfortable) Head Exam: Positive for: ATRAUMATIC, NORMAL INSPECTION, NORMOCEPHALIC Skin: Positive for: Warm, Dry. Negative for: Normal Color ((+) mild facial plethora) Eye Exam: Positive for: EOMI, Normal appearance, PERRL Neck: Positive for: Normal, Painless ROM, Supple Cardiovascular/Chest: Positive for: Regular Rate, Rhythm. Negative for: Murmur Respiratory: Positive for: Crackles (bilaterally to mid lungs). Negative for: Respiratory Distress Gastrointestinal/Abdominal: Positive for: Normal Exam, Soft. Negative for: Tenderness, Distended, Guarding Back: Positive for: Normal Inspection Extremity: Positive for: Normal ROM, Pedal Edema (2+ pitting edema bilaterally) Neurologic/Psych: Positive for: Alert, Oriented (x 3). Negative for: Motor/Sensory Deficits - Laboratory Results Result Diagrams: 07/28/18 20:33 07/28/18 20:33 Lab Results: pO2 31 mm/Hg (30-55) 07/28/18 20:28 VBG pH 7.38 (7.32-7.43) 07/28/18 20:28 VBG pCO2 46 mmHg (40-60) 07/28/18 20:28 VBG HCO3 25.0 mmol/L 07/28/18 20:28 VBG Total CO2 28.6 mmol/L (22-28) H 07/28/18 20:28 VBG O2 Sat (Calc) 59.7 % (40-65) 07/28/18 20:28 VBG Base Excess 1.5 mmol/L (0.0-2.0) 07/28/18 20: VBG Potassium 5.7 mmol/L (3.6-5.2) H 07/28/18 20:28 Sodium 106.0 mmol/L (132-148) L* 07/28/18 20:28 Chloride 76.0 mmol/L (98-107) L 07/28/18 20:28 Glucose 98 mg/dL (65-105) 07/28/18 20:28 Lactate 1.0 mmol/L (0.7-2.1) 07/28/18 20:28 FiO2 21.0 % 07/28/18 20:28 PT 13.4 Seconds (9.8-13.1) H 07/28/18 20:33 INR 1.2 07/28/18 20:33 APTT 29.8 Seconds (25.6-37.1) 07/28/18 20:33 - ECG O2 Sat by Pulse Oximetry: 99 (RA) Pulse Ox Interpretation: Normal Medical Decision Making Medical Decision Makin:07 MDM: History of CHF, COPD and ESRD presenting with missed dialysis and fluid overload Currently, her vitals are stable Patient is not in acute pulmonary edema Will check blood work to evaluate severity of fluid overload and current renal status 21:48 VBG sodium is an error (VBG syringe cap fell off in ice cup) Patient's labs are consistent with prior Spoke with Dr. Del Rio who recommends outpatient dialysis tomorrow PAtient and family informed of results, patient is happy to go home STRONGLY encouraged dialysis tomorrow Scribe Attestation: Documented by China Mejias acting as a scribe for Hans Giordano MD Provider Scribe Attestation: All medical record entries made by the Scribe were at my direction and personally dictated by me. I have reviewed the chart and agree that the record accurately reflects my personal performance of the history, physical exam, medical decision making, and the department course for this patient. I have also personally directed, reviewed, and agree with the discharge instructions and disposition. Disposition - Clinical Impression Clinical Impression: ESRD (end stage renal disease) - Patient ED Disposition Is Patient to be Admitted: No - Disposition Referrals: Juan Carlos Del Rio MD [Staff Provider] - Fredis Benedict MD [Staff Provider] - Disposition: Routine/Home Disposition Time: 21:49 Condition: STABLE Instructions: Kidney Failure, Dialysis and Diet Forms: [employer] (Mongolian)
[2018-07-28 21:18] LABS: TROPONIN I 0.026 ng/mL (0.00-0.120)
[2018-07-28 22:40] VITALS: BP 132/79
--- NOTE | 2018-07-29 07:26 | CARD ---
APPROVED REPORT Date of service: 07/28/2018 EKG Measurement Heart [id number] <Conclusion> Atrial flutter with variable AV block T wave abnormality, consider lateral ischemia Abnormal ECG
--- NOTE | 2018-07-29 12:11 | RAD ---
Date of service: 07/28/2018 PROCEDURE: CHEST RADIOGRAPH, 1 VIEW HISTORY: CHF, fluid overload COMPARISON: 05/26/2018. FINDINGS: LUNGS: There is bibasilar atelectasis. No focal consolidation. There is linear atelectasis/scarring in the left upper pole. PLEURA: Question of small pleural effusions. No pneumothorax CARDIOVASCULAR: Moderate cardiomegaly. There are aortic atherosclerotic calcifications present. OSSEOUS STRUCTURES: Within normal limits for the patient's age. VISUALIZED UPPER ABDOMEN: Normal. OTHER FINDINGS: None. IMPRESSION: Moderate cardiomegaly and question of small pleural effusions.
== END 2018-07-28 21:59 | disposition home or self-care (01) ==
LOC: H.ER 17:57
DX: N18.6 End stage renal disease (principal); Z99.2 Dependence on renal dialysis; Z88.1 Allergy status to other antibiotic agents; E78.00 Pure hypercholesterolemia, unspecified; G30.9 Alzheimer's disease, unspecified; I13.2 Hypertensive heart and chronic kidney disease with heart failure and with stage 5 chronic kidney disease, or end stage renal disease; F02.80 Dementia in other diseases classified elsewhere, unspecified severity, without behavioral disturbance, psychotic disturbance, mood disturbance, and anxiety

== ENCOUNTER 2018-08-04 17:09 | Inpatient (IN) | payer MEDICARE ==
[2018-08-04 17:09] VITALS: BMI 17.2
[2018-08-04] MEDS ORDERED: Sodium Chloride 0.9% 250 ML IV STA (17:56)
[2018-08-04] MEDS ORDERED: Lidocaine 5% Patch TD STA (17:56)
[2018-08-04] MEDS ORDERED: Morphine 4 MG/ML VIAL IV ONE ×2 (17:56→20:40)
--- NOTE | 2018-08-04 17:58 | ED PDOC ---
HPI: Back Time Seen by Provider: 08/04/18 17:31 Chief Complaint (Nursing): Back Pain Chief Complaint (Provider): Back pain History Per: Patient, Family History/Exam Limitations: no limitations Onset/Duration Of Symptoms: Days (2 weeks) Current Symptoms Are (Timing): Still Present Additional Complaint(s): Pt. with back pain R flank. On going for 2 weeks. Seen at [facility] for the same and dc. Here as she had pain today again in the same area. No abd pain, weakness, dizziness, headache, numbness, tingles. Pt. did not take any meds for it. Got her dialysis as scheduled. No injury. Past Medical History Reviewed: Nursing Documentation, Vital Signs Vital Signs: Last Vital Signs Temp 97.2 F L 08/04/18 17:44 Pulse 109 H 08/04/18 17:44 Resp 18 08/04/18 17:44 BP 117/83 08/04/18 17:44 Pulse Ox 98 08/04/18 17:44 - Medical History PMH: Alzheimer's Disease, Anemia, Anxiety, CHF, Dementia, HTN, Hypercholesterolemia, Pneumonia, End Stage Renal Disease, Chronic Kidney Disease Denies: Arthritis, Asthma, Atrial Fibrillation, Bipolar Disorder, Bronchitis, CAD, Cardia Arrhythmia, COPD, Crohn's Disease, Depression, Diverticulitis, Emphysema, Fractures, Gastritis, Gall Bladder Disease, HIV, Hyperthyroidism, Hypothyroidism, Kidney Stones, Migraine, Mitral Valve Prolapse, Multiple Sclerosis, Osteoporosis, Pancreatitis, Paranoia, Parkinson's Disease, Peripheral Edema, Post Traumatic Stress Disorder, Pulmonary Embolism, Rheumatoid Arthritis, Schizophrenia, Seizures, Sickle Cell Disease, Sexually Transmitted Disease, Sleep Apnea, TIA - Surgical History Surgical History: Appendectomy, Cholecystectomy, Tonsillectomy Denies: CABG, Carotid Endarterectomy, Coronary Stent, Pacemaker - Family History Family History: States: Unknown Family Hx, Hypertension - Living Arrangements Living Arrangements: With Family - Immunization History Hx Tetanus Toxoid Vaccination: No Hx Influenza Vaccination: No Hx Pneumococcal Vaccination: No - Home Medications Home Medications: Ambulatory Orders Medication Instructions Recorded Atorvastatin [Lipitor] 20 mg PO DAILY 08/16/16 Labetalol [Trandate] 100 mg PO BID 08/16/16 amLODIPine [Norvasc] 5 mg PO DAILY 08/16/16 Lisinopril [Zestril] 5 mg PO DAILY 01/24/18 Vitamin B Complex/Vit C/Folic 1 tab PO DAILY tab 04/01/18 [Nephro-Valentino] Memantine [Namenda] 5 mg PO DAILY #30 tab 04/24/18 Mirtazapine [Remeron] 15 mg PO HS #30 tab 04/24/18 Calcium Acetate [Phoslo] 667 mg PO TID 05/13/18 clonazePAM [Klonopin] 0.5 mg PO Q8 PRN 05/13/18 Meloxicam [Mobic] 7.5 mg PO DAILY 05/26/18 - Allergies Allergies/Adverse Reactions: Allergies Allergy/AdvReac Type Severity Reaction Status Date / Time vancomycin AdvReac REDNESS Verified 08/04/18 17:48 Review of Systems ROS Statement: Except As Marked, All Systems Reviewed And Found Negative Musculoskeletal: Positive for: Back Pain. Negative for: Neck Pain, Shoulder Pain, Arm Pain, Leg Pain Skin: Negative for: Rash Neurological: Negative for: Weakness, Numbness, Headache, Dizziness Physical Exam - Reviewed Nursing Documentation Reviewed: Yes Vital Signs Reviewed: Yes - Physical Exam Appears: Positive for: Non-toxic, No Acute Distress Head Exam: Positive for: ATRAUMATIC, NORMAL INSPECTION, NORMOCEPHALIC Skin: Positive for: Normal Color, Warm, DRY Eye Exam: Positive for: EOMI, Normal appearance, PERRL ENT: Positive for: Normal ENT Inspection Neck: Positive for: Normal, Painless ROM Cardiovascular/Chest: Positive for: Regular Rate, Rhythm Respiratory: Positive for: CNT, Normal Breath Sounds Gastrointestinal/Abdominal: Positive for: Normal Exam, Soft Back: Positive for: Normal Inspection Extremity: Positive for: Normal ROM Neurologic/Psych: Positive for: Alert, Oriented - Laboratory Results Result Diagrams: 08/04/18 18:17 08/04/18 19:10 Lab Results: no acute - ECG ECG: Positive for: Interpreted By Me, Viewed By Me ECG Rhythm: Positive for: Atrial Flutter (similar to old) O2 Sat by Pulse Oximetry: 98 Pulse Ox Interpretation: Normal - Radiology X-Ray: Interpreted by Me, Viewed By Me X-Ray Interpretation: No Acute Disease - Progress ED Course And Treament: 1821: Stable. She has not been sleeping much at night. Son states she takes random naps and then wakes up again. She is drousy, but arousable. Son states this is how she naps. Will give duonebs and steroids. Will hold off on morphine. Is 100% on RA. 2052: Pt. stable. With colitis. BP held well. Awake. Will give morphine. Spoke with Dr. Martines who will admit and give further orders when pt. reaches floor. Disposition - Clinical Impression Clinical Impression: Sepsis, Colitis - Patient ED Disposition Is Patient to be Admitted: Yes - Disposition Disposition Time: 20:00 Condition: FAIR - Pt Status Changed To: Hospital Disposition Of: Inpatient - Admit Certification Admit to Inpatient:: After my assessment, the patient will require hospitalization for at least two midnights. This is because of the severity of symptoms shown, intensity of services needed, and/or the medical risk in this patient being treated as an outpatient. - POA Present On Arrival: None
[2018-08-04] MEDS ORDERED: Albuterol-Ipratrop 3 mg / 0.5 (3 ml) UD IH STA (18:19)
[2018-08-04] MEDS ORDERED: Albuterol-Ipratrop 3 mg / 0.5 (3 ml) UD INH STA (18:19)
[2018-08-04] MEDS ORDERED: Albuterol-Ipratrop 3 mg / 0.5 (3 ml) UD ONE (18:23)
[2018-08-04] MEDS ORDERED: Lidocaine 5% Patch TD ONE (18:23)
[2018-08-04 18:30] LABS: BASO # 0.1 K/uL (0.0-0.2); EOS # 0.1 K/uL (0.0-0.7); EOS % 2.2 % (0.0-4.0); INR 1.2; LYMPH # 1.2 K/uL (1.0-4.3); LYMPH % 28.9 % (20.0-40.0); MEAN CELL VOLUME 93.4 fl (81.0-99.0); MEAN CORPUSCULAR HEMOGLOBIN 29.4 pg (27.0-31.0); MEAN CORPUSCULAR HGB CONC 31.5 g/dL (33.0-37.0); MEAN PLATELET VOLUME 11.1 fl (7.2-11.7); MONO # 0.6 K/uL (0.0-0.8); MONO % 15.5 % (0.0-10.0); NEUT % 50.4 % (50.0-75.0); NRBC % 0.1 % (0.0-0.0); RBC 4.42 Mil/uL (3.80-5.20); RED CELL DISTRIBUTION WIDTH 18.6 % (11.5-14.5)
[2018-08-04 18:32] LABS: PARTIAL THROMBOPLASTIN TIME 31.5 Seconds (25.6-37.1)
[2018-08-04 18:40] LABS: ABG ALLEN TEST YES; ARTERIAL BLOOD GAS HCO3 30.2 mmol/L (21-28); ARTERIAL BLOOD GAS O2 SAT 99.2 % (95-98); ARTERIAL BLOOD GAS PCO2 43 mm/Hg (35-45); ARTERIAL BLOOD GAS PH 7.47 (7.35-7.45); ARTERIAL BLOOD GAS PO2 75 mm/Hg (80-100); ARTERIAL BLOOD GAS TCO2 32.6 mmol/L (22-28)
[2018-08-04 19:34] LABS: ALB/GLOB RATIO 1.4 (1.0-2.1); ALBUMIN 3.7 g/dL (3.5-5.0)
[2018-08-04] MEDS ORDERED: Piperacillin/Tazobact 3.375 GM in Sodium Chloride 0.9% 100 ML IV STA (20:35)
[2018-08-04] MEDS ORDERED: Piperacillin/Tazobact 3.375 gm Inj IVPB ONE (20:58)
[2018-08-04] MEDS ORDERED: DiphenhydrAMINE 50 mg/ml Inj IV STA (21:19)
[2018-08-04] MEDS ORDERED: DiphenhydrAMINE 50 mg/ml Inj ONE (21:24)
[2018-08-04] MEDS ORDERED: Morphine 4 MG/ML VIAL IVP PRN (23:00)
[2018-08-05] MEDS: Ciprofloxacin 400mg/200ml D5W 400 MG/200 ML BAG IVPB SCH ×2 (00:08→08:43)
[2018-08-05] MEDS: metroNIDAZOLE 500mg/100ml NS 100 ML IVPB SCH ×3 (00:12→17:02)
[2018-08-05 05:57] LABS: HEMOGLOBIN 13.8 g/dL (12.0-16.0); MEAN CORPUSCULAR HEMOGLOBIN 29.5 pg (27.0-31.0); MEAN CORPUSCULAR HGB CONC 32.4 g/dL (33.0-37.0); RBC 4.67 Mil/uL (3.80-5.20); RED CELL DISTRIBUTION WIDTH 17.5 % (11.5-14.5); WHITE BLOOD COUNT 2.1 K/uL (4.8-10.8)
[2018-08-05 06:31] LABS: ALB/GLOB RATIO 1.3 (1.0-2.1); ALBUMIN 3.6 g/dL (3.5-5.0); CALCIUM 9.1 mg/dL (8.4-10.2)
[2018-08-05] MEDS: Multivitamin Vitamin B Complex (Nephro-Vite) Tab PO SCH (08:43)
[2018-08-05] MEDS: Lactobacillus Acidophilus 500 MU Cap PO SCH ×2 (08:50→17:01)
[2018-08-05] MEDS ORDERED: Ciprofloxacin 400mg/200ml D5W 400 MG/200 ML BAG IVPB SCH (09:00)
[2018-08-05] MEDS ORDERED: Patient's Own Med (Meloxicam [Mobic] 7.5 MG) PO SCH (09:00)
[2018-08-05] MEDS ORDERED: Calcium Acetate 667 MG Capsule PO SCH (09:00)
--- NOTE | 2018-08-05 09:20 | CARD ---
APPROVED REPORT Date of service: 08/04/2018 EKG Measurement Heart [id number] P85 [id number] <Conclusion> Atrial flutter with 2:1 AV conduction Nonspecific T wave abnormality, consider lateral ischemia Abnormal ECG
--- NOTE | 2018-08-05 10:08 | CP.PCM.CON ---
History of Present Illness - History of Present Illness History of Present Illness: This patient who is 78 years old known to me with end-stage renal disease on maintenance hemodialysis twice a week as outpatient she reported to the emergency room complaining of low back pain also reported to have loose bowel but no abdominal pain according to the son no vomiting. Patient known to have noncompliance she missed dialysis intermittently. And she has multitude of admissions in this hospital related to multiple medical problem including missing dialysis. PMH: Alzheimer's Disease, Anemia, Anxiety, CHF, Dementia, HTN, Hypercholesterolemia, Pneumonia, End Stage Renal Disease, Chronic Kidney Disease - Surgical History Surgical History: Appendectomy, Cholecystectomy, Tonsillectomy Review of Systems - Review of Systems Systems not reviewed;Unavailable: Respiratory Distress - Constitutional Constitutional: Anorexia - EENT Eyes: absent: Exophthalmos Ears: absent: Dizziness Nose/Mouth/Throat: absent: Epistaxis - Cardiovascular Cardiovascular: Edema, Leg Edema. absent: Chest Pain, Dyspnea on Exertion - Respiratory Respiratory: Dyspnea on Exertion, Chest Congestion. absent: Hemoptysis - Gastrointestinal Gastrointestinal: Cramping, Diarrhea. absent: Abdominal Pain, Coffee Ground Emesis, Hematemesis, Hematochezia - Genitourinary Genitourinary: absent: Nocturia - Musculoskeletal Musculoskeletal: Arthralgias, Back Pain, Muscle Weakness. absent: Numbness - Neurological Neurological: Abnormal Gait, Memory Loss. absent: Confusion, Focal Weakness, Paresthesias - Psychiatric Psychiatric: As Per HPI - Endocrine Endocrine: Fatigue - Hematologic/Lymphatic Hematologic: absent: Easy Bleeding Past Patient History - Infectious Disease Hx of Infectious Diseases: C.diff - Tetanus Immunizations Tetanus Immunization: Unknown - Past Medical History & Family History Past Medical History?: Yes - Past Social History Smoking Status: Never Smoked - CARDIAC Hx Cardiac Disorders: Yes Hx Congestive Heart Failure: Yes Hx Hypercholesterolemia: Yes Hx Hypertension: Yes - PULMONARY Hx Respiratory Disorders: Yes Hx Pneumonia: Yes - NEUROLOGICAL Hx Neurological Disorder: Yes Hx Alzheimer's Disease: Yes Hx Dementia: Yes - HEENT Hx HEENT Problems: No - RENAL Hx Chronic Kidney Disease: Yes Hx Dialysis: Yes Type of Dialysis Access: Left AV Fistula Date of Last Dialysis Treatment: 08/01/18 - ENDOCRINE/METABOLIC Hx Endocrine Disorders: No - HEMATOLOGICAL/ONCOLOGICAL Hx Blood Disorders: Yes Hx Anemia: Yes - INTEGUMENTARY Hx Dermatological Problems: No - MUSCULOSKELETAL/RHEUMATOLOGICAL Hx Musculoskeletal Disorders: No Hx Falls: No - GASTROINTESTINAL Hx Gastrointestinal Disorders: Yes Hx Colitis: Yes - GENITOURINARY/GYNECOLOGICAL Hx Genitourinary Disorders: No - PSYCHIATRIC Hx Psychophysiologic Disorder: Yes Hx Anxiety: Yes Hx Substance Use: No - SURGICAL HISTORY Hx Surgeries: Yes Hx Appendectomy: Yes Hx Cholecystectomy: Yes Hx Tonsillectomy: Yes - ANESTHESIA Hx Anesthesia: Yes Hx Anesthesia Reactions: No Hx Malignant Hyperthermia: No Meds Allergies/Adverse Reactions: Allergies Allergy/AdvReac Type Severity Reaction Status Date / Time vancomycin AdvReac REDNESS Verified 08/04/18 17:48 - Medications Medications: Current Medications Acetaminophen (Tylenol 325mg Tab) 650 mg PO Q6 PRN PRN Reason: Pain, Mild (1-3) Amlodipine Besylate (Norvasc) 5 mg PO DAILY [facility] Last Admin: 08/05/18 08:44 Dose: 5 mg Atorvastatin Calcium (Lipitor) 20 mg PO DAILY [facility] Last Admin: 08/05/18 08:48 Dose: 20 mg Calcium Acetate (Phoslo) 667 mg PO TID [facility] Last Admin: 08/05/18 08:47 Dose: 667 mg Clonazepam (Klonopin) 0.5 mg PO Q8 PRN PRN Reason: Anxiety Heparin Sodium (Porcine) (Heparin) 5,000 units SC Q12 [facility]; Protocol Metronidazole (Flagyl 500mg/100ml Ns) 100 mls @ 100 mls/hr IVPB Q8 [facility]; Protocol Last Admin: 08/05/18 08:42 Dose: 100 mls/hr Ciprofloxacin (Cipro 400mg/200ml Dsw) 400 mg in 200 mls @ 200 mls/hr IVPB DAILY [facility]; Protocol Last Admin: 08/05/18 08:43 Dose: 200 mls/hr Labetalol HCl (Trandate) 100 mg PO BID [facility] Last Admin: 08/05/18 08:44 Dose: 100 mg Lactobacillus Acidophilus (Bacid Acidophilus) 1 cap PO BID [facility] Last Admin: 08/05/18 08:50 Dose: 1 cap Lisinopril (Zestril) 5 mg PO DAILY [facility] Last Admin: 08/05/18 08:43 Dose: 5 mg Memantine (Namenda) 5 mg PO DAILY [facility] Last Admin: 08/05/18 08:44 Dose: 5 mg Mirtazapine (Remeron) 15 mg PO HS [facility] Last Admin: 08/05/18 00:07 Dose: 15 mg Morphine Sulfate (Morphine) 1 mg IVP Q4 PRN PRN Reason: Pain, severe (8-10) Naproxen (Naprosyn Tab) 250 mg PO BID [facility] Last Admin: 08/05/18 08:44 Dose: 250 mg Tramadol HCl (Ultram) 50 mg PO Q6 PRN PRN Reason: Pain, moderate (4-7) Vitamin B Complex/Vit C/Folic Acid (Nephro-Valentino) 1 tab PO DAILY [facility] Last Admin: 08/05/18 08:43 Dose: 1 tab Physical Exam - Constitutional Appears: Non-toxic, No Acute Distress - Eye Exam Eye Exam: Conjunctival injection - ENT Exam ENT Exam: Mucous Membranes Moist - Neck Exam Neck exam: Negative for: Lymphadenopathy - Respiratory Exam Respiratory Exam: Rhonchi, NORMAL BREATHING PATTERN. absent: Chest Wall Tenderness - Cardiovascular Exam Cardiovascular Exam: REGULAR RHYTHM. absent: Gallop, JVD, Rubs - GI/Abdominal Exam GI & Abdominal Exam: Normal Bowel Sounds. absent: Guarding - Extremities Exam Extremities exam: Negative for: calf tenderness - Back Exam Back exam: absent: CVA tenderness (L), CVA tenderness (R) - Neurological Exam Neurological exam: Alert - Psychiatric Exam Psychiatric exam: Normal Affect Results - Vital Signs Recent Vital Signs: Last Vital Signs Temp 98.4 F 08/05/18 08:24 Pulse 105 H 08/05/18 08:44 Resp 20 08/05/18 08:24 BP 138/79 08/05/18 08:44 Pulse Ox 98 08/05/18 08:24 - Labs Result Diagrams: 08/05/18 05:25 08/05/18 05:25 Labs: Laboratory Results - last 24 hr 08/04/18 08/04/18 08/04/18 18:17 18:17 18:35 WBC 4.0 L RBC 4.42 Hgb 13.0 Hct 41.3 MCV 93.4 D MCH 29.4 MCHC 31.5 L RDW 18.6 H Plt Count 104 L MPV 11.1 Neut % (Auto) 50.4 Lymph % (Auto) 28.9 Shoshone % (Auto) 15.5 H Eos % (Auto) 2.2 Baso % (Auto) 3.0 H Neut # (Auto) 2.0 Lymph # (Auto) 1.2 [place]oshone # (Auto) 0.6 Eos # (Auto) 0.1 Baso # (Auto) 0.1 PT 14.0 H INR 1.2 APTT 31.5 pCO2 43 pO2 75 L HCO3 30.2 H ABG pH 7.47 H ABG Total CO2 32.6 H ABG O2 Saturation 99.2 H ABG Base Excess 6.8 H Nacho Test Yes ABG Potassium 3.9 A-a O2 Difference 21.0 Sodium 133.0 Chloride 96.0 L Glucose 132 H Lactate 1.5 FiO2 21.0 Potassium Carbon Dioxide Anion Gap BUN Creatinine Est GFR ( Amer) Est GFR (Non-Af Amer) Random Glucose Calcium Total Bilirubin AST ALT Alkaline Phosphatase Total Protein Albumin Globulin Albumin/Globulin Ratio Arterial Blood Potassium 3.9 Influenza Typ A,B (EIA) 08/04/18 08/04/18 08/05/18 18:40 19:10 05:25 WBC 2.1 L RBC 4.67 Hgb 13.8 Hct 42.5 MCV 91.0 D MCH 29.5 MCHC 32.4 L RDW 17.5 H Plt Count 100 L MPV Neut % (Auto) Lymph % (Auto) [place]oshone % (Auto) Eos % (Auto) Baso % (Auto) Neut # (Auto) Lymph # (Auto) [place]oshone # (Auto) Eos # (Auto) Baso # (Auto) PT INR APTT pCO2 pO2 HCO3 ABG pH ABG Total CO2 ABG O2 Saturation ABG Base Excess Nacho Test ABG Potassium A-a O2 Difference Sodium 135 Chloride 90 L Glucose Lactate FiO2 Potassium 4.0 Carbon Dioxide 29 Anion Gap 20 BUN 84 H Creatinine 5.2 H Est GFR ( Amer) 10 Est GFR (Non-Af Amer) 8 Random Glucose 116 H Calcium 9.0 Total Bilirubin 0.9 AST 31 ALT 31 Alkaline Phosphatase 194 H D Total Protein 6.3 Albumin 3.7 Globulin 2.6 Albumin/Globulin Ratio 1.4 Arterial Blood Potassium Influenza Typ A,B (EIA) Negative for flu a/b 08/05/18 05:25 WBC RBC Hgb Hct MCV MCH MCHC RDW Plt Count MPV Neut % (Auto) Lymph % (Auto) [place]oshone % (Auto) Eos % (Auto) Baso % (Auto) Neut # (Auto) Lymph # (Auto) [place]oshone # (Auto) Eos # (Auto) Baso # (Auto) PT INR APTT pCO2 pO2 HCO3 ABG pH ABG Total CO2 ABG O2 Saturation ABG Base Excess Nacho Test ABG Potassium A-a O2 Difference Sodium 133 Chloride 90 L Glucose Lactate FiO2 Potassium 4.4 Carbon Dioxide 24 Anion Gap 23 H BUN 91 H Creatinine 5.1 H Est GFR ( Amer) 10 Est GFR (Non-Af Amer) 8 Random Glucose 142 H Calcium 9.1 Total Bilirubin 1.3 AST 34 ALT 30 Alkaline Phosphatase 154 H D Total Protein 6.4 Albumin 3.6 Globulin 2.8 Albumin/Globulin Ratio 1.3 Arterial Blood Potassium Influenza Typ A,B (EIA) Assessment & Plan (1) Chronic kidney disease with end stage renal failure on dialysis Assessment and Plan: End-stage renal disease admitted with low back pain and possible diarrhea. Lower extremity edema Hypertension Hyperphosphatemia Secondary hyperparathyroidism Recommendation She is scheduled to have hemodialysis shortly. Consent was taken. Order was given. Discussed with the son and the patient at the bedside Status: Acute (2) Colitis Status: Acute
--- NOTE | 2018-08-05 10:59 | RAD ---
Date of service: 08/04/2018 HISTORY: back pain COMPARISON: Chest radiograph dated 07/28/2018. FINDINGS: LUNGS: No active pulmonary disease. PLEURA: Right basilar pleural thickening. No significant pleural effusion identified, no pneumothorax apparent. CARDIOVASCULAR: Aortic atherosclerotic calcifications. Cardiomediastinal silhouette stably enlarged OSSEOUS STRUCTURES: Unchanged. VISUALIZED UPPER ABDOMEN: Normal. OTHER FINDINGS: None. IMPRESSION: No active disease.
--- NOTE | 2018-08-05 11:10 | CT ---
Date of service: 08/04/2018 PROCEDURE: CT Abdomen and Pelvis without intravenous contrast HISTORY: R/O stone COMPARISON: CT scan of the abdomen and pelvis dated 07/12/2018. TECHNIQUE: Contiguous images were obtained from the domes of the diaphragms to the upper thighs without the administration of intravenous contrast. Oral contrast was not administered. Radiation dose: Total exam DLP = 465.73 mGy-cm. This CT exam was performed using one or more of the following dose reduction techniques: Automated exposure control, adjustment of the mA and/or kV according to patient size, and/or use of iterative reconstruction technique. FINDINGS: LOWER THORAX: Cardiomegaly. Coronary arterial and valvular calcifications. Small right pleural effusion. LIVER: 2.1 cm right hepatic lobe cyst. No gross lesion or ductal dilatation. GALLBLADDER AND BILE DUCTS: Gallbladder wall thickening/edema. PANCREAS: Unremarkable. No gross lesion or ductal dilatation. SPLEEN: Stable area of low attenuation in the spleen. ADRENALS: Unremarkable. No mass. KIDNEYS AND URETERS: Left renal 5.8 cm cyst. Nonobstructive bilateral renal calculi. No hydronephrosis. No solid mass. VASCULATURE: Unremarkable. No aortic aneurysm. No aortic atherosclerotic calcification or mural plaque present. BOWEL: Colonic diverticulosis. No obstruction. No gross mural thickening. APPENDIX: No findings to suggest acute appendicitis. PERITONEUM: Abdominal wall surgical clips. No free fluid. No free air. LYMPH NODES: Unremarkable. No enlarged lymph nodes. BLADDER: Unremarkable. REPRODUCTIVE: Uterus not seen. Vaginal region soft tissue thickening with soft tissue density seen in the adjacent fat, nonspecific BONES: No acute fracture. OTHER FINDINGS: None. IMPRESSION: Bilateral nonobstructive renal calculi. No obstructive uropathy or evidence of recently passed genitourinary calculus. Vaginal region soft tissue thickening with soft tissues in seen in the adjacent fat bilaterally. This is nonspecific and is increased in comparison to the prior study. This finding was not mentioned on the preliminary interpretation provided by [facility]. ER notification submitted electronically. Small right pleural effusion. Colonic diverticulosis without acute diverticulitis. Anasarca. Small volume ascites. Gallbladder wall thickening/edema. Gallbladder wall thickening is a nonspecific finding which can be seen with ascites, hepatitis, cholecystitis, CHF or hypoproteinemic states. Clinical correlation is recommended. If clinical concern for gallbladder pathology exists, a HIDA scan may be performed. Additional stable findings as above.
[2018-08-05 16:24] LABS: TROPONIN I 0.03 ng/mL (0.00-0.120)
--- NOTE | 2018-08-06 01:23 | CP.PCM.HP ---
Past Patient History - Infectious Disease Hx of Infectious Diseases: C.diff - Tetanus Immunizations Tetanus Immunization: Unknown - Past Medical History & Family History Past Medical History?: Yes - Past Social History Smoking Status: Never Smoked - CARDIAC Hx Cardiac Disorders: Yes Hx Congestive Heart Failure: Yes Hx Hypercholesterolemia: Yes Hx Hypertension: Yes - PULMONARY Hx Respiratory Disorders: Yes Hx Pneumonia: Yes - NEUROLOGICAL Hx Neurological Disorder: Yes Hx Alzheimer's Disease: Yes Hx Dementia: Yes - HEENT Hx HEENT Problems: No - RENAL Hx Chronic Kidney Disease: Yes Hx Dialysis: Yes Type of Dialysis Access: Left AV Fistula Date of Last Dialysis Treatment: 08/01/18 - ENDOCRINE/METABOLIC Hx Endocrine Disorders: No - HEMATOLOGICAL/ONCOLOGICAL Hx Blood Disorders: Yes Hx Anemia: Yes - INTEGUMENTARY Hx Dermatological Problems: No - MUSCULOSKELETAL/RHEUMATOLOGICAL Hx Musculoskeletal Disorders: No Hx Falls: No - GASTROINTESTINAL Hx Gastrointestinal Disorders: Yes Hx Colitis: Yes - GENITOURINARY/GYNECOLOGICAL Hx Genitourinary Disorders: No - PSYCHIATRIC Hx Psychophysiologic Disorder: Yes Hx Anxiety: Yes Hx Substance Use: No - SURGICAL HISTORY Hx Surgeries: Yes Hx Appendectomy: Yes Hx Cholecystectomy: Yes Hx Tonsillectomy: Yes - ANESTHESIA Hx Anesthesia: Yes Hx Anesthesia Reactions: No Hx Malignant Hyperthermia: No Meds Allergies/Adverse Reactions: Allergies Allergy/AdvReac Type Severity Reaction Status Date / Time vancomycin AdvReac REDNESS Verified 08/04/18 17:48 Results - Vital Signs Recent Vital Signs: Last Vital Signs Temp 97.7 F 08/05/18 23:55 Pulse 107 H 08/05/18 23:55 Resp 18 08/05/18 23:55 BP 105/65 08/05/18 23:55 Pulse Ox 99 08/05/18 23:55 - Labs Result Diagrams: 08/05/18 05:25 08/05/18 05:25 Labs: Laboratory Results - last 24 hr 08/05/18 08/05/18 08/05/18 05:25 05:25 15:48 WBC 2.1 L RBC 4.67 Hgb 13.8 Hct 42.5 MCV 91.0 D MCH 29.5 MCHC 32.4 L RDW 17.5 H Plt Count 100 L Sodium 133 Potassium 4.4 Chloride 90 L Carbon Dioxide 24 Anion Gap 23 H BUN 91 H Creatinine 5.1 H Est GFR ( Amer) 10 Est GFR (Non-Af Amer) 8 Random Glucose 142 H Calcium 9.1 Total Bilirubin 1.3 AST 34 ALT 30 Alkaline Phosphatase 154 H D Troponin I 0.0300 Total Protein 6.4 Albumin 3.6 Globulin 2.8 Albumin/Globulin Ratio 1.3 Vitamin B12 847 TSH 3rd Generation 3.24
[2018-08-06] MEDS ORDERED: Sodium Chloride 3% for Inhalation 4 ML VIAL.NEB IH PRN (10:01)
[2018-08-06] MEDS: Ciprofloxacin 400mg/200ml D5W 400 MG/200 ML BAG IVPB SCH (10:12)
[2018-08-06] MEDS: Lactobacillus Acidophilus 500 MU Cap PO SCH ×2 (10:16→17:53)
[2018-08-06] MEDS: metroNIDAZOLE 500mg/100ml NS 100 ML IVPB SCH ×3 (10:17→18:06)
[2018-08-06] MEDS: Multivitamin Vitamin B Complex (Nephro-Vite) Tab PO SCH (10:21)
--- NOTE | 2018-08-06 11:50 | CP.PCM.PN ---
Subjective - Date & Time of Evaluation Date of Evaluation: 08/06/18 Time of Evaluation: 11:49 - Subjective Subjective: Patient awake and conscious the daughter at the bedside however she appeared to be somewhat confused Vital signs noted to be stable Chest pain or shortness of breath Objective - Vital Signs/Intake and Output Vital Signs (last 24 hours): Temp Pulse Resp BP Pulse Ox 97.5 F L 89 18 148/79 98 08/06/18 08:02 08/06/18 10:24 08/06/18 08:02 08/06/18 10:24 08/06/18 08:02 - Medications Medications: Current Medications Acetaminophen (Tylenol 325mg Tab) 650 mg PO Q6 PRN PRN Reason: Pain, Mild (1-3) Amlodipine Besylate (Norvasc) 5 mg PO DAILY [facility] Last Admin: 08/06/18 10:22 Dose: 5 mg Atorvastatin Calcium (Lipitor) 20 mg PO DAILY [facility] Last Admin: 08/06/18 10:19 Dose: 20 mg Calcium Acetate (Phoslo) 667 mg PO TID [facility] Last Admin: 08/06/18 10:23 Dose: 667 mg Clonazepam (Klonopin) 0.5 mg PO Q8 PRN PRN Reason: Anxiety Heparin Sodium (Porcine) (Heparin) 5,000 units SC Q12 [facility]; Protocol Last Admin: 08/06/18 10:18 Dose: 5,000 units Metronidazole (Flagyl 500mg/100ml Ns) 100 mls @ 100 mls/hr IVPB Q8 [facility]; Protocol Last Admin: 08/06/18 10:17 Dose: 100 mls/hr Ciprofloxacin (Cipro 400mg/200ml Dsw) 400 mg in 200 mls @ 200 mls/hr IVPB DAILY [facility]; Protocol Last Admin: 08/06/18 10:12 Dose: 200 mls/hr Labetalol HCl (Trandate) 100 mg PO BID [facility] Last Admin: 08/06/18 10:23 Dose: 100 mg Lactobacillus Acidophilus (Bacid Acidophilus) 1 cap PO BID [facility] Last Admin: 08/06/18 10:16 Dose: 1 cap Lisinopril (Zestril) 5 mg PO DAILY [facility] Last Admin: 08/06/18 10:24 Dose: 5 mg Memantine (Namenda) 5 mg PO DAILY [facility] Last Admin: 08/06/18 10:19 Dose: 5 mg Mirtazapine (Remeron) 15 mg PO HS [facility] Last Admin: 08/05/18 23:08 Dose: 15 mg Morphine Sulfate (Morphine) 1 mg IVP Q4 PRN PRN Reason: Pain, severe (8-10) Naproxen (Naprosyn Tab) 250 mg PO BID [facility] Last Admin: 08/06/18 10:20 Dose: 250 mg Tramadol HCl (Ultram) 50 mg PO Q6 PRN PRN Reason: Pain, moderate (4-7) Vitamin B Complex/Vit C/Folic Acid (Nephro-Valentino) 1 tab PO DAILY [facility] Last Admin: 08/06/18 10:21 Dose: 1 tab - Labs Labs: 08/05/18 05:25 08/05/18 05:25 PT 14.0 Seconds (9.8-13.1) H 08/04/18 18:17 INR 1.2 08/04/18 18:17 APTT 31.5 Seconds (25.6-37.1) 08/04/18 18:17 - Constitutional Appears: No Acute Distress - Eye Exam Eye Exam: absent: Conjunctival injection - ENT Exam ENT Exam: absent: Mucous Membranes Moist - Neck Exam Neck Exam: absent: Lymphadenopathy - Respiratory Exam Respiratory Exam: NORMAL BREATHING PATTERN. absent: Chest Wall Tenderness - Cardiovascular Exam Cardiovascular Exam: REGULAR RHYTHM. absent: Gallop, JVD, Rubs - GI/Abdominal Exam GI & Abdominal Exam: Soft, Normal Bowel Sounds - Extremities Exam Extremities Exam: absent: Calf Tenderness - Back Exam Back Exam: absent: CVA tenderness (L), CVA tenderness (R) - Neurological Exam Neurological Exam: Altered, Awake - Skin Skin Exam: absent: Cyanosis Assessment and Plan (1) Chronic kidney disease with end stage renal failure on dialysis Assessment & Plan: End-stage renal disease admitted with low back pain and possible diarrhea. Lower extremity edema Hypertension Hyperphosphatemia Secondary hyperparathyroidism PMH: Alzheimer's Disease, Anemia, Anxiety, CHF, Dementia, HTN, Hypercholesterolemia, Pneumonia, End Stage Renal Disease, Chronic Kidney Disease Recommendation Lower extremity edema appears to be subsided after dialysis Patient remain somewhat confused to place and time Daughter at the bedside Diarrhea appears to be subsided Hemodialysis tomorrow Status: Acute (2) Colitis Status: Acute
--- NOTE | 2018-08-06 17:49 | CP.PCM.CON ---
History of Present Illness - History of Present Illness History of Present Illness: Consult Note for OBGYN Patient seen at bedside at around 1 PM w/ daughter. Was having lunch. Patient seen again at around 5 pm. She denied vaginal bleeding/discharge/pain. She refused any physical exam/interventions. Review of Systems - Reproductive: Female Reproductive:Female: As Per HPI Past Patient History - Infectious Disease Hx of Infectious Diseases: C.diff - Tetanus Immunizations Tetanus Immunization: Unknown - Past Medical History & Family History Past Medical History?: Yes - Past Social History Smoking Status: Never Smoked - CARDIAC Hx Cardiac Disorders: Yes Hx Congestive Heart Failure: Yes Hx Hypercholesterolemia: Yes Hx Hypertension: Yes - PULMONARY Hx Respiratory Disorders: Yes Hx Pneumonia: Yes - NEUROLOGICAL Hx Neurological Disorder: Yes Hx Alzheimer's Disease: Yes Hx Dementia: Yes - HEENT Hx HEENT Problems: No - RENAL Hx Chronic Kidney Disease: Yes Hx Dialysis: Yes Type of Dialysis Access: Left AV Fistula Date of Last Dialysis Treatment: 08/01/18 - ENDOCRINE/METABOLIC Hx Endocrine Disorders: No - HEMATOLOGICAL/ONCOLOGICAL Hx Blood Disorders: Yes Hx Anemia: Yes - INTEGUMENTARY Hx Dermatological Problems: No - MUSCULOSKELETAL/RHEUMATOLOGICAL Hx Musculoskeletal Disorders: No Hx Falls: No - GASTROINTESTINAL Hx Gastrointestinal Disorders: Yes Hx Colitis: Yes - GENITOURINARY/GYNECOLOGICAL Hx Genitourinary Disorders: No - PSYCHIATRIC Hx Psychophysiologic Disorder: Yes Hx Anxiety: Yes Hx Substance Use: No - SURGICAL HISTORY Hx Surgeries: Yes Hx Appendectomy: Yes Hx Cholecystectomy: Yes Hx Tonsillectomy: Yes - ANESTHESIA Hx Anesthesia: Yes Hx Anesthesia Reactions: No Hx Malignant Hyperthermia: No Meds Allergies/Adverse Reactions: Allergies Allergy/AdvReac Type Severity Reaction Status Date / Time vancomycin AdvReac REDNESS Verified 08/04/18 17:48 - Medications Medications: Current Medications Acetaminophen (Tylenol 325mg Tab) 650 mg PO Q6 PRN PRN Reason: Pain, Mild (1-3) Amlodipine Besylate (Norvasc) 5 mg PO DAILY [facility] Last Admin: 08/06/18 10:22 Dose: 5 mg Atorvastatin Calcium (Lipitor) 20 mg PO DAILY [facility] Last Admin: 08/06/18 10:19 Dose: 20 mg Calcium Acetate (Phoslo) 667 mg PO TID [facility] Last Admin: 08/06/18 14:37 Dose: Not Given Clonazepam (Klonopin) 0.5 mg PO Q8 PRN PRN Reason: Anxiety Heparin Sodium (Porcine) (Heparin) 5,000 units SC Q12 [facility]; Protocol Last Admin: 08/06/18 10:18 Dose: 5,000 units Metronidazole (Flagyl 500mg/100ml Ns) 100 mls @ 100 mls/hr IVPB Q8 [facility]; Protocol Last Admin: 08/06/18 10:17 Dose: 100 mls/hr Ciprofloxacin (Cipro 400mg/200ml Dsw) 400 mg in 200 mls @ 200 mls/hr IVPB DAILY [facility]; Protocol Last Admin: 08/06/18 10:12 Dose: 200 mls/hr Labetalol HCl (Trandate) 100 mg PO BID [facility] Last Admin: 08/06/18 10:23 Dose: 100 mg Lactobacillus Acidophilus (Bacid Acidophilus) 1 cap PO BID [facility] Last Admin: 08/06/18 10:16 Dose: 1 cap Lisinopril (Zestril) 5 mg PO DAILY [facility] Last Admin: 08/06/18 10:24 Dose: 5 mg Memantine (Namenda) 5 mg PO DAILY [facility] Last Admin: 08/06/18 10:19 Dose: 5 mg Mirtazapine (Remeron) 15 mg PO HS [facility] Last Admin: 08/05/18 23:08 Dose: 15 mg Morphine Sulfate (Morphine) 1 mg IVP Q4 PRN PRN Reason: Pain, severe (8-10) Naproxen (Naprosyn Tab) 250 mg PO BID [facility] Last Admin: 08/06/18 10:20 Dose: 250 mg Tramadol HCl (Ultram) 50 mg PO Q6 PRN PRN Reason: Pain, moderate (4-7) Vitamin B Complex/Vit C/Folic Acid (Nephro-Valentino) 1 tab PO DAILY [facility] Last Admin: 08/06/18 10:21 Dose: 1 tab Results - Vital Signs Recent Vital Signs: Last Vital Signs Temp 97.4 F L 08/06/18 16:26 Pulse 119 H 08/06/18 16:26 Resp 18 08/06/18 16:26 BP 107/64 08/06/18 16:26 Pulse Ox 98 08/06/18 16:26 - Labs Result Diagrams: 08/05/18 05:25 08/05/18 05:25 Assessment & Plan - Assessment and Plan (Free Text) Assessment: 78 y/o female w/ multiple co-morbidities found to have "vaginal region soft tissue thickening w/ soft tissue seen in adjacent fat bilaterally, increased from prior study" on abd/pelvis CT on 08/04/2018. Plan: Patient refused physical exam. Daughter advised of need for outpatient follow up w/ OBGYN. Case discussed w/ attending, Dr. Whitten. -Emily Hummel pgyi - Date & Time Date: 08/06/18 Time: 17:00
--- NOTE | 2018-08-06 17:57 | CP.PCM.PN ---
Subjective - Date & Time of Evaluation Date of Evaluation: 08/06/18 Time of Evaluation: 15:35 Objective - Vital Signs/Intake and Output Vital Signs (last 24 hours): Temp Pulse Resp BP Pulse Ox 97.4 F L 119 H 18 107/64 98 08/06/18 16:26 08/06/18 16:26 08/06/18 16:26 08/06/18 16:26 08/06/18 16:26 - Medications Medications: Current Medications Acetaminophen (Tylenol 325mg Tab) 650 mg PO Q6 PRN PRN Reason: Pain, Mild (1-3) Amlodipine Besylate (Norvasc) 5 mg PO DAILY [facility] Last Admin: 08/06/18 10:22 Dose: 5 mg Atorvastatin Calcium (Lipitor) 20 mg PO DAILY [facility] Last Admin: 08/06/18 10:19 Dose: 20 mg Calcium Acetate (Phoslo) 667 mg PO TID [facility] Last Admin: 08/06/18 17:51 Dose: 667 mg Clonazepam (Klonopin) 0.5 mg PO Q8 PRN PRN Reason: Anxiety Heparin Sodium (Porcine) (Heparin) 5,000 units SC Q12 [facility]; Protocol Last Admin: 08/06/18 10:18 Dose: 5,000 units Metronidazole (Flagyl 500mg/100ml Ns) 100 mls @ 100 mls/hr IVPB Q8 [facility]; Protocol Last Admin: 08/06/18 17:50 Dose: 100 mls/hr Ciprofloxacin (Cipro 400mg/200ml Dsw) 400 mg in 200 mls @ 200 mls/hr IVPB DAILY [facility]; Protocol Last Admin: 08/06/18 10:12 Dose: 200 mls/hr Labetalol HCl (Trandate) 100 mg PO BID [facility] Last Admin: 08/06/18 10:23 Dose: 100 mg Lactobacillus Acidophilus (Bacid Acidophilus) 1 cap PO BID [facility] Last Admin: 08/06/18 17:53 Dose: 1 cap Lisinopril (Zestril) 5 mg PO DAILY [facility] Last Admin: 08/06/18 10:24 Dose: 5 mg Memantine (Namenda) 5 mg PO DAILY [facility] Last Admin: 08/06/18 10:19 Dose: 5 mg Mirtazapine (Remeron) 15 mg PO HS [facility] Last Admin: 08/05/18 23:08 Dose: 15 mg Morphine Sulfate (Morphine) 1 mg IVP Q4 PRN PRN Reason: Pain, severe (8-10) Naproxen (Naprosyn Tab) 250 mg PO BID [facility] Last Admin: 08/06/18 10:20 Dose: 250 mg Tramadol HCl (Ultram) 50 mg PO Q6 PRN PRN Reason: Pain, moderate (4-7) Vitamin B Complex/Vit C/Folic Acid (Nephro-Valentino) 1 tab PO DAILY [facility] Last Admin: 08/06/18 10:21 Dose: 1 tab - Labs Labs: 08/05/18 05:25 08/05/18 05:25 PT 14.0 Seconds (9.8-13.1) H 08/04/18 18:17 INR 1.2 08/04/18 18:17 APTT 31.5 Seconds (25.6-37.1) 08/04/18 18:17
[2018-08-06 20:53] LABS: BASO % 0.3 % (0.0-2.0); EOS % 0.4 % (0.0-4.0); HEMOGLOBIN 12.6 g/dL (12.0-16.0); LYMPH # 0.7 K/uL (1.0-4.3); MEAN CELL VOLUME 92.1 fl (81.0-99.0); MEAN CORPUSCULAR HEMOGLOBIN 29.4 pg (27.0-31.0); MEAN CORPUSCULAR HGB CONC 31.9 g/dL (33.0-37.0); MONO # 0.7 K/uL (0.0-0.8); NEUT # 3.4 K/uL (1.8-7.0); NEUT % 70.3 % (50.0-75.0); NRBC % 0.1 % (0.0-0.0); RBC 4.28 Mil/uL (3.80-5.20); RED CELL DISTRIBUTION WIDTH 18.5 % (11.5-14.5); WHITE BLOOD COUNT 4.9 K/uL (4.8-10.8)
[2018-08-06 21:09] LABS: ALB/GLOB RATIO 1.3 (1.0-2.1)
[2018-08-06 21:20] LABS: TROPONIN I 0.04 ng/mL (0.00-0.120)
[2018-08-07] MEDS: metroNIDAZOLE 500mg/100ml NS 100 ML IVPB SCH ×3 (09:38→18:09)
[2018-08-07] MEDS: Multivitamin Vitamin B Complex (Nephro-Vite) Tab PO SCH (09:40)
[2018-08-07] MEDS: Lactobacillus Acidophilus 500 MU Cap PO SCH ×2 (10:00→18:12)
--- NOTE | 2018-08-07 10:53 | CP.PCM.PN ---
Subjective - Date & Time of Evaluation Date of Evaluation: 08/07/18 Time of Evaluation: 10:50 - Subjective Subjective: Patient awake and conscious not in acute distress She appears to be comfortable no shortness of breath No chest pain no diarrhea reported Vital signs stable Objective - Vital Signs/Intake and Output Vital Signs (last 24 hours): Temp Pulse Resp BP Pulse Ox 97.4 F L 120 H 20 123/86 98 08/07/18 08:14 08/07/18 09:40 08/07/18 08:14 08/07/18 09:40 08/07/18 08:14 - Medications Medications: Current Medications Acetaminophen (Tylenol 325mg Tab) 650 mg PO Q6 PRN PRN Reason: Pain, Mild (1-3) Amlodipine Besylate (Norvasc) 5 mg PO DAILY [facility] Last Admin: 08/07/18 09:41 Dose: 5 mg Atorvastatin Calcium (Lipitor) 20 mg PO DAILY [facility] Last Admin: 08/07/18 09:39 Dose: 20 mg Calcium Acetate (Phoslo) 667 mg PO TID [facility] Last Admin: 08/07/18 09:39 Dose: 667 mg Clonazepam (Klonopin) 0.5 mg PO Q8 PRN PRN Reason: Anxiety Heparin Sodium (Porcine) (Heparin) 5,000 units SC Q12 [facility]; Protocol Last Admin: 08/07/18 09:38 Dose: Not Given Metronidazole (Flagyl 500mg/100ml Ns) 100 mls @ 100 mls/hr IVPB Q8 [facility]; Protocol Last Admin: 08/07/18 09:38 Dose: 100 mls/hr Ciprofloxacin (Cipro 400mg/200ml Dsw) 400 mg in 200 mls @ 200 mls/hr IVPB DAILY [facility]; Protocol Last Admin: 08/06/18 10:12 Dose: 200 mls/hr Labetalol HCl (Trandate) 100 mg PO BID [facility] Last Admin: 08/07/18 09:41 Dose: 100 mg Lactobacillus Acidophilus (Bacid Acidophilus) 1 cap PO BID [facility] Last Admin: 08/06/18 17:53 Dose: 1 cap Lisinopril (Zestril) 5 mg PO DAILY [facility] Last Admin: 08/07/18 09:40 Dose: 5 mg Memantine (Namenda) 5 mg PO DAILY [facility] Last Admin: 08/07/18 09:41 Dose: 5 mg Mirtazapine (Remeron) 15 mg PO HS [facility] Last Admin: 08/06/18 22:48 Dose: 15 mg Morphine Sulfate (Morphine) 1 mg IVP Q4 PRN PRN Reason: Pain, severe (8-10) Naproxen (Naprosyn Tab) 250 mg PO BID [facility] Last Admin: 08/07/18 09:39 Dose: 250 mg Ondansetron HCl (Zofran Inj) 4 mg IVP Q6 PRN PRN Reason: Nausea/Vomiting Last Admin: 08/06/18 20:18 Dose: 4 mg Pantoprazole Sodium (Protonix Inj) 40 mg IVP DAILY [facility] Last Admin: 08/07/18 09:39 Dose: 40 mg Tramadol HCl (Ultram) 50 mg PO Q6 PRN PRN Reason: Pain, moderate (4-7) Vitamin B Complex/Vit C/Folic Acid (Nephro-Valentino) 1 tab PO DAILY [facility] Last Admin: 08/07/18 09:40 Dose: 1 tab - Labs Labs: 08/06/18 20:15 08/06/18 20:15 PT 14.0 Seconds (9.8-13.1) H 08/04/18 18:17 INR 1.2 08/04/18 18:17 APTT 31.5 Seconds (25.6-37.1) 08/04/18 18:17 - Constitutional Appears: No Acute Distress - Eye Exam Eye Exam: Conjunctival injection - ENT Exam ENT Exam: Mucous Membranes Moist - Neck Exam Neck Exam: absent: Lymphadenopathy - Respiratory Exam Respiratory Exam: NORMAL BREATHING PATTERN. absent: Chest Wall Tenderness - Cardiovascular Exam Cardiovascular Exam: absent: Gallop, JVD, Rubs - GI/Abdominal Exam GI & Abdominal Exam: Soft, Normal Bowel Sounds - Extremities Exam Extremities Exam: absent: Calf Tenderness - Back Exam Back Exam: absent: CVA tenderness (L), CVA tenderness (R) - Neurological Exam Neurological Exam: Altered, Awake - Skin Skin Exam: absent: Cyanosis Assessment and Plan (1) Chronic kidney disease with end stage renal failure on dialysis Assessment & Plan: Assessment & Plan: End-stage renal disease admitted with low back pain and possible diarrhea. Lower extremity edema Hypertension Hyperphosphatemia Secondary hyperparathyroidism PMH: Alzheimer's Disease, Anemia, Anxiety, CHF, Dementia, HTN, Hypercholesterolemia, Pneumonia, End Stage Renal Disease, Chronic Kidney Disease Recommendation Lower extremity edema appears to be subsided after dialysis Patient remain somewhat confused Diarrhea appears to be subsided Hemodialysis tomorrow Status: Acute (2) Colitis Status: Acute
[2018-08-07] MEDS: Ciprofloxacin 400mg/200ml D5W 400 MG/200 ML BAG IVPB SCH (11:22)
[2018-08-07 11:34] LABS: CALCIUM 8.3 mg/dL (8.4-10.2)
--- NOTE | 2018-08-07 21:34 | CP.PCM.PN ---
Subjective - Date & Time of Evaluation Date of Evaluation: 08/07/18 Objective - Vital Signs/Intake and Output Vital Signs (last 24 hours): Temp Pulse Resp BP Pulse Ox 97.9 F 116 H 18 114/72 99 08/07/18 20:01 08/07/18 20:01 08/07/18 20:01 08/07/18 20:01 08/07/18 20:01 - Medications Medications: Current Medications Acetaminophen (Tylenol 325mg Tab) 650 mg PO Q6 PRN PRN Reason: Pain, Mild (1-3) Last Admin: 08/07/18 21:22 Dose: 650 mg Amlodipine Besylate (Norvasc) 5 mg PO DAILY [facility] Last Admin: 08/07/18 09:41 Dose: 5 mg Atorvastatin Calcium (Lipitor) 20 mg PO DAILY [facility] Last Admin: 08/07/18 09:39 Dose: 20 mg Calcium Acetate (Phoslo) 667 mg PO TID [facility] Last Admin: 08/07/18 18:10 Dose: 667 mg Clonazepam (Klonopin) 0.5 mg PO Q8 PRN PRN Reason: Anxiety Heparin Sodium (Porcine) (Heparin) 5,000 units SC Q12 [facility]; Protocol Last Admin: 08/07/18 21:20 Dose: 5,000 units Metronidazole (Flagyl 500mg/100ml Ns) 100 mls @ 100 mls/hr IVPB Q8 [facility]; Protocol Last Admin: 08/07/18 18:09 Dose: 100 mls/hr Ciprofloxacin (Cipro 400mg/200ml Dsw) 400 mg in 200 mls @ 200 mls/hr IVPB DAILY [facility]; Protocol Last Admin: 08/07/18 11:22 Dose: 200 mls/hr Labetalol HCl (Trandate) 100 mg PO BID [facility] Last Admin: 08/07/18 18:10 Dose: 100 mg Lactobacillus Acidophilus (Bacid Acidophilus) 1 cap PO BID [facility] Last Admin: 08/07/18 18:12 Dose: 1 cap Lisinopril (Zestril) 5 mg PO DAILY [facility] Last Admin: 08/07/18 09:40 Dose: 5 mg Memantine (Namenda) 5 mg PO DAILY [facility] Last Admin: 08/07/18 09:41 Dose: 5 mg Mirtazapine (Remeron) 15 mg PO HS [facility] Last Admin: 08/07/18 21:20 Dose: 15 mg Morphine Sulfate (Morphine) 1 mg IVP Q4 PRN PRN Reason: Pain, severe (8-10) Ondansetron HCl (Zofran Inj) 4 mg IVP Q6 PRN PRN Reason: Nausea/Vomiting Last Admin: 08/06/18 20:18 Dose: 4 mg Pantoprazole Sodium (Protonix Inj) 40 mg IVP DAILY [facility] Last Admin: 08/07/18 09:39 Dose: 40 mg Vitamin B Complex/Vit C/Folic Acid (Nephro-Valentino) 1 tab PO DAILY [facility] Last Admin: 08/07/18 09:40 Dose: 1 tab - Labs Labs: 08/06/18 20:15 08/07/18 11:15 PT 14.0 Seconds (9.8-13.1) H 08/04/18 18:17 INR 1.2 08/04/18 18:17 APTT 31.5 Seconds (25.6-37.1) 08/04/18 18:17
[2018-08-08] MEDS: metroNIDAZOLE 500mg/100ml NS 100 ML IVPB SCH ×4 (01:20→18:04)
[2018-08-08 06:23] LABS: HEMOGLOBIN 12.6 g/dL (12.0-16.0); MEAN CELL VOLUME 92.4 fl (81.0-99.0); MEAN CORPUSCULAR HEMOGLOBIN 29.3 pg (27.0-31.0); MEAN CORPUSCULAR HGB CONC 31.8 g/dL (33.0-37.0); RBC 4.28 Mil/uL (3.80-5.20); RED CELL DISTRIBUTION WIDTH 18.5 % (11.5-14.5); WHITE BLOOD COUNT 4.3 K/uL (4.8-10.8)
[2018-08-08 06:31] LABS: CALCIUM 8.1 mg/dL (8.4-10.2)
--- NOTE | 2018-08-08 08:02 | CP.PCM.CON ---
History of Present Illness - History of Present Illness History of Present Illness: Psychiatry consult note CC: "I don't need a psychiatrist." HPI: 78 yo F w/ h/o HTN, A-fib, HLD, dementia, CHF, ERSD, admitted w/ abdominal pain. Patient states that she does not need to be seen by a psychiatrist. She denied acute depression/anxiety/AH/VH/SI/HI/paranoia. She denies sleep/appetite disturbances. She did not recall that she was on Remeron or why she is taking it. A + O x self, location, but not date. PPHx: Patient unable to provide psychiatric history PMHx: Dementia, ESRD, anemia, HTN, HLD, A-fib, CHF SurgHx: Appendectomy, Tonsillectomy FMHx: HTN SocHx: From [place], lives alone, has 6 children, denies drugs/etoh/cig use, retired. Allergies: Vancomycin Impression: 78 yo female w/ h/o depressive disorder and major neurocognitive impairment; denies acute depression or sleep/appetite disturbances. -Can continue Remeron 15 mg PO HS; would recommend outpatient psychiatric follow-up -Recommend primary team to speak with family regarding how much direct care the patient requires at home as she currently lives alone and has cognitive deficits -No acute psychiatric admission indicated at this time Past Patient History - Infectious Disease Hx of Infectious Diseases: C.diff - Tetanus Immunizations Tetanus Immunization: Unknown - Past Medical History & Family History Past Medical History?: Yes - Past Social History Smoking Status: Never Smoked - CARDIAC Hx Cardiac Disorders: Yes Hx Congestive Heart Failure: Yes Hx Hypercholesterolemia: Yes Hx Hypertension: Yes - PULMONARY Hx Respiratory Disorders: Yes Hx Pneumonia: Yes - NEUROLOGICAL Hx Neurological Disorder: Yes Hx Alzheimer's Disease: Yes Hx Dementia: Yes - HEENT Hx HEENT Problems: No - RENAL Hx Chronic Kidney Disease: Yes Hx Dialysis: Yes Type of Dialysis Access: Left AV Fistula Date of Last Dialysis Treatment: 08/01/18 - ENDOCRINE/METABOLIC Hx Endocrine Disorders: No - HEMATOLOGICAL/ONCOLOGICAL Hx Blood Disorders: Yes Hx Anemia: Yes - INTEGUMENTARY Hx Dermatological Problems: No - MUSCULOSKELETAL/RHEUMATOLOGICAL Hx Musculoskeletal Disorders: No Hx Falls: No - GASTROINTESTINAL Hx Gastrointestinal Disorders: Yes Hx Colitis: Yes - GENITOURINARY/GYNECOLOGICAL Hx Genitourinary Disorders: No - PSYCHIATRIC Hx Psychophysiologic Disorder: Yes Hx Anxiety: Yes Hx Substance Use: No - SURGICAL HISTORY Hx Surgeries: Yes Hx Appendectomy: Yes Hx Cholecystectomy: Yes Hx Tonsillectomy: Yes - ANESTHESIA Hx Anesthesia: Yes Hx Anesthesia Reactions: No Hx Malignant Hyperthermia: No Meds Allergies/Adverse Reactions: Allergies Allergy/AdvReac Type Severity Reaction Status Date / Time vancomycin AdvReac REDNESS Verified 08/04/18 17:48 - Medications Medications: Current Medications Acetaminophen (Tylenol 325mg Tab) 650 mg PO Q6 PRN PRN Reason: Pain, Mild (1-3) Last Admin: 08/07/18 21:22 Dose: 650 mg Amlodipine Besylate (Norvasc) 5 mg PO DAILY [facility] Last Admin: 08/07/18 09:41 Dose: 5 mg Atorvastatin Calcium (Lipitor) 20 mg PO DAILY [facility] Last Admin: 08/07/18 09:39 Dose: 20 mg Calcium Acetate (Phoslo) 667 mg PO TID [facility] Last Admin: 08/07/18 18:10 Dose: 667 mg Clonazepam (Klonopin) 0.5 mg PO Q8 PRN PRN Reason: Anxiety Last Admin: 08/07/18 22:08 Dose: 0.5 mg Heparin Sodium (Porcine) (Heparin) 5,000 units SC Q12 [facility]; Protocol Last Admin: 08/07/18 21:20 Dose: 5,000 units Metronidazole (Flagyl 500mg/100ml Ns) 100 mls @ 100 mls/hr IVPB Q8 [facility]; Protocol Last Admin: 08/08/18 01:20 Dose: 100 mls/hr Ciprofloxacin (Cipro 400mg/200ml Dsw) 400 mg in 200 mls @ 200 mls/hr IVPB DAILY [facility]; Protocol Last Admin: 08/07/18 11:22 Dose: 200 mls/hr Labetalol HCl (Trandate) 100 mg PO BID [facility] Last Admin: 08/07/18 18:10 Dose: 100 mg Lactobacillus Acidophilus (Bacid Acidophilus) 1 cap PO BID [facility] Last Admin: 08/07/18 18:12 Dose: 1 cap Lisinopril (Zestril) 5 mg PO DAILY [facility] Last Admin: 08/07/18 09:40 Dose: 5 mg Memantine (Namenda) 5 mg PO DAILY [facility] Last Admin: 08/07/18 09:41 Dose: 5 mg Mirtazapine (Remeron) 15 mg PO HS [facility] Last Admin: 08/07/18 21:20 Dose: 15 mg Morphine Sulfate (Morphine) 1 mg IVP Q4 PRN PRN Reason: Pain, severe (8-10) Ondansetron HCl (Zofran Inj) 4 mg IVP Q6 PRN PRN Reason: Nausea/Vomiting Last Admin: 08/06/18 20:18 Dose: 4 mg Pantoprazole Sodium (Protonix Inj) 40 mg IVP DAILY [facility] Last Admin: 08/07/18 09:39 Dose: 40 mg Vitamin B Complex/Vit C/Folic Acid (Nephro-Valentino) 1 tab PO DAILY [facility] Last Admin: 08/07/18 09:40 Dose: 1 tab Results - Vital Signs Recent Vital Signs: Last Vital Signs Temp 97.3 F L 08/08/18 05:00 Pulse 116 H 08/08/18 05:00 Resp 18 08/08/18 05:00 BP 107/66 08/08/18 05:00 Pulse Ox 99 08/08/18 05:00 - Labs Result Diagrams: 08/08/18 05:17 08/08/18 05:17 Labs: Laboratory Results - last 24 hr 08/07/18 08/08/18 08/08/18 11:15 05:17 05:17 WBC 4.3 L RBC 4.28 Hgb 12.6 Hct 39.6 MCV 92.4 MCH 29.3 MCHC 31.8 L RDW 18.5 H Plt Count 90 L Sodium 133 130 L Potassium 3.9 4.1 Chloride 96 L 94 L Carbon Dioxide 24 23 Anion Gap 17 17 BUN 65 H 73 H Creatinine 4.4 H 5.2 H Est GFR ( Amer) 12 10 Est GFR (Non-Af Amer) 10 8 Random Glucose 121 H 88 Calcium 8.3 L 8.1 L
--- NOTE | 2018-08-08 08:52 | CP.PCM.PN ---
Subjective - Date & Time of Evaluation Date of Evaluation: 08/08/18 Time of Evaluation: 08:52 - Subjective Subjective: Patient awake and conscious not in acute distress. No chest pain no shortness of breath Objective - Vital Signs/Intake and Output Vital Signs (last 24 hours): Temp Pulse Resp BP Pulse Ox 97.4 F L 116 H 20 109/72 99 08/08/18 08:43 08/08/18 08:43 08/08/18 08:43 08/08/18 08:43 08/08/18 08:43 - Medications Medications: Current Medications Acetaminophen (Tylenol 325mg Tab) 650 mg PO Q6 PRN PRN Reason: Pain, Mild (1-3) Last Admin: 08/07/18 21:22 Dose: 650 mg Amlodipine Besylate (Norvasc) 5 mg PO DAILY [facility] Last Admin: 08/07/18 09:41 Dose: 5 mg Atorvastatin Calcium (Lipitor) 20 mg PO DAILY [facility] Last Admin: 08/07/18 09:39 Dose: 20 mg Calcium Acetate (Phoslo) 667 mg PO TID [facility] Last Admin: 08/07/18 18:10 Dose: 667 mg Clonazepam (Klonopin) 0.5 mg PO Q8 PRN PRN Reason: Anxiety Last Admin: 08/07/18 22:08 Dose: 0.5 mg Heparin Sodium (Porcine) (Heparin) 5,000 units SC Q12 [facility]; Protocol Last Admin: 08/07/18 21:20 Dose: 5,000 units Metronidazole (Flagyl 500mg/100ml Ns) 100 mls @ 100 mls/hr IVPB Q8 [facility]; Protocol Last Admin: 08/08/18 01:20 Dose: 100 mls/hr Ciprofloxacin (Cipro 400mg/200ml Dsw) 400 mg in 200 mls @ 200 mls/hr IVPB DAILY [facility]; Protocol Last Admin: 08/07/18 11:22 Dose: 200 mls/hr Labetalol HCl (Trandate) 100 mg PO BID [facility] Last Admin: 08/07/18 18:10 Dose: 100 mg Lactobacillus Acidophilus (Bacid Acidophilus) 1 cap PO BID [facility] Last Admin: 08/07/18 18:12 Dose: 1 cap Lisinopril (Zestril) 5 mg PO DAILY [facility] Last Admin: 08/07/18 09:40 Dose: 5 mg Memantine (Namenda) 5 mg PO DAILY [facility] Last Admin: 08/07/18 09:41 Dose: 5 mg Mirtazapine (Remeron) 15 mg PO HS [facility] Last Admin: 08/07/18 21:20 Dose: 15 mg Morphine Sulfate (Morphine) 1 mg IVP Q4 PRN PRN Reason: Pain, severe (8-10) Ondansetron HCl (Zofran Inj) 4 mg IVP Q6 PRN PRN Reason: Nausea/Vomiting Last Admin: 08/06/18 20:18 Dose: 4 mg Pantoprazole Sodium (Protonix Inj) 40 mg IVP DAILY [facility] Last Admin: 08/07/18 09:39 Dose: 40 mg Vitamin B Complex/Vit C/Folic Acid (Nephro-Valentino) 1 tab PO DAILY [facility] Last Admin: 08/07/18 09:40 Dose: 1 tab - Labs Labs: 08/08/18 05:17 08/08/18 05:17 PT 14.0 Seconds (9.8-13.1) H 08/04/18 18:17 INR 1.2 08/04/18 18:17 APTT 31.5 Seconds (25.6-37.1) 08/04/18 18:17 - Constitutional Appears: No Acute Distress - Eye Exam Eye Exam: Conjunctival injection - ENT Exam ENT Exam: Mucous Membranes Moist - Neck Exam Neck Exam: absent: Lymphadenopathy - Respiratory Exam Respiratory Exam: NORMAL BREATHING PATTERN. absent: Chest Wall Tenderness, Rales, Wheezes - Cardiovascular Exam Cardiovascular Exam: absent: Gallop, JVD, Rubs - GI/Abdominal Exam GI & Abdominal Exam: Soft, Normal Bowel Sounds - Extremities Exam Extremities Exam: absent: Calf Tenderness - Back Exam Back Exam: absent: CVA tenderness (L), CVA tenderness (R) - Neurological Exam Neurological Exam: Alert - Skin Skin Exam: absent: Cyanosis Assessment and Plan (1) Chronic kidney disease with end stage renal failure on dialysis Assessment & Plan: Assessment & Plan: End-stage renal disease admitted with low back pain and diarrhea. Lower extremity edema Hypertension Hyperphosphatemia Secondary hyperparathyroidism PMH: Alzheimer's Disease, Anemia, Anxiety, CHF, Dementia, HTN, Hypercholesterolemia, Pneumonia, End Stage Renal Disease, Chronic Kidney Disease Recommendation Hemodialysis scheduled shortly Lower extremity edema subsided From phosphorus PTH is still pending Patient doing much better and improving Diarrhea has subsided Status: Acute (2) Colitis Status: Acute
[2018-08-08] MEDS: Ciprofloxacin 400mg/200ml D5W 400 MG/200 ML BAG IVPB SCH ×2 (10:01→15:16)
[2018-08-08] MEDS: Multivitamin Vitamin B Complex (Nephro-Vite) Tab PO SCH (10:07)
[2018-08-08] MEDS: Lactobacillus Acidophilus 500 MU Cap PO SCH ×2 (10:12→18:01)
[2018-08-08 16:32] VITALS: RESP 16; O2SAT 98
[2018-08-08 19:57] VITALS: BP 110/71; PULSE 115; TEMP 98
--- NOTE | 2018-08-08 22:54 | CP.PCM.DIS ---
Provider - Provider Date of Admission: 08/04/18 20:46 Attending physician: Tiny Martines MD Consults: 08/04/18 22:59 Nephrology Consult Routine Comment: Consulting Provider: Fredis 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ing Physician: Fredis Benedict Reason for Consult: ESRD on dialysis 08/04/18 23:55 Social Work Referral Routine Comment: ON DIALYSIS Physician Instructions: Reason For Exam: LIVES ALONE 08/06/18 10:05 Gynocology [TECHNOLOGY RISK INTERN Consult] Routine Comment: Consulting Provider: Fausto Whitten Consulting Physician: Fausto Whitten Reason for Consult: Vaginal thickening and mass 08/07/18 13:45 Psychiatry Consult Routine Comment: Consulting Provider: Chelsy Pena Consulting Physician: Chelsy Pena Reason for Consult: depression anxiety, on remeron; ?adjust meds Time Spent in preparation of Discharge (in minutes): 25 Diagnosis - Discharge Diagnosis (1) Chronic kidney disease with end stage renal failure on dialysis Status: Acute (2) Colitis Status: Acute (3) Dehydration Status: Acute (4) Hypertension Status: Chronic Priority: High (5) Abdominal pain Status: Acute Hospital Course - Lab Results Lab Results: Micro Results 08/04/18 21:10 Blood Blood Culture - Preliminary NO GROWTH AFTER 4 DAYS 08/04/18 21:10 Blood Blood Culture - Preliminary NO GROWTH AFTER 4 DAYS 08/06/18 14:30 Sputum Gram Stain - Final 08/06/18 14:30 Sputum Sputum Culture - Final Yeast Species Most Recent Lab Values WBC 4.3 K/uL (4.8-10.8) L 08/08/18 05:17 RBC 4.28 Mil/uL (3.80-5.20) 08/08/18 05:17 Hgb 12.6 g/dL (12.0-16.0) 08/08/18 05:17 Hct 39.6 % (34.0-47.0) 08/08/18 05:17 MCV 92.4 fl (81.0-99.0) 08/08/18 05:17 MCH 29.3 pg (27.0-31.0) 08/08/18 05:17 MCHC 31.8 g/dL (33.0-37.0) L 08/08/18 05:17 RDW 18.5 % (11.5-14.5) H 08/08/18 05:17 Plt Count 90 K/uL (130-400) L 08/08/18 05:17 MPV 10.0 fl (7.2-11.7) 08/06/18 20:15 Neut % (Auto) 70.3 % (50.0-75.0) 08/06/18 20:15 Lymph % (Auto) 14.0 % (20.0-40.0) L 08/06/18 20:15 [place] % (Auto) 15.0 % (0.0-10.0) H 08/06/18 20:15 Eos % (Auto) 0.4 % (0.0-4.0) 08/06/18 20:15 Baso % (Auto) 0.3 % (0.0-2.0) 08/06/18 20:15 Neut # (Auto) 3.4 K/uL (1.8-7.0) 08/06/18 20:15 Lymph # (Auto) 0.7 K/uL (1.0-4.3) L 08/06/18 20:15 [place] # (Auto) 0.7 K/uL (0.0-0.8) 08/06/18 20:15 Eos # (Auto) 0.0 K/uL (0.0-0.7) 08/06/18 20:15 Baso # (Auto) 0.0 K/uL (0.0-0.2) 08/06/18 20:15 PT 14.0 Seconds (9.8-13.1) H 08/04/18 18:17 INR 1.2 08/04/18 18:17 APTT 31.5 Seconds (25.6-37.1) 08/04/18 18:17 pCO2 43 mm/Hg (35-45) 08/04/18 18:35 pO2 75 mm/Hg (80-100) L 08/04/18 18:35 HCO3 30.2 mmol/L (21-28) H 08/04/18 18:35 ABG pH 7.47 (7.35-7.45) H 08/04/18 18:35 ABG Total CO2 32.6 mmol/L (22-28) H 08/04/18 18:35 ABG O2 Saturation 99.2 % (95-98) H 08/04/18 18:35 ABG Base Excess 6.8 mmol/L (-2.0-3.0) H 08/04/18 18:35 Nacho Test Yes 08/04/18 18:35 ABG Potassium 3.9 mmol/L (3.6-5.2) 08/04/18 18:35 A-a O2 Difference 21.0 mm/Hg 08/04/18 18:35 Sodium 133.0 mmol/L (132-148) 08/04/18 18:35 Chloride 96.0 mmol/L (98-107) L 08/04/18 18:35 Glucose 132 mg/dL (65-105) H 08/04/18 18:35 Lactate 1.5 mmol/L (0.7-2.1) 08/04/18 18:35 FiO2 21.0 % 08/04/18 18:35 Sodium 130 mmol/l (132-148) L 08/08/18 05:17 Potassium 4.1 MMOL/L (3.6-5.0) 08/08/18 05:17 Chloride 94 mmol/L (98-107) L 08/08/18 05:17 Carbon Dioxide 23 mmol/L (22-30) 08/08/18 05:17 Anion Gap 17 (10-20) 08/08/18 05:17 BUN 73 mg/dl (7-17) H 08/08/18 05:17 Creatinine 5.2 mg/dl (0.7-1.2) H 08/08/18 05:17 Est GFR ( Amer) 10 08/08/18 05:17 Est GFR (Non-Af Amer) 8 08/08/18 05:17 Random Glucose 88 mg/dL (65-105) 08/08/18 05:17 Calcium 8.1 mg/dL (8.4-10.2) L 08/08/18 05:17 Phosphorus 5.4 mg/dl (2.5-4.5) H 08/08/18 15:55 Magnesium 1.8 MG/DL (1.6-2.3) 08/06/18 20:15 Total Bilirubin 0.6 mg/dl (0.2-1.3) 08/06/18 20:15 AST 30 U/L (14-36) 08/06/18 20:15 ALT 33 U/L (9-52) 08/06/18 20:15 Alkaline Phosphatase 120 U/L (38-126) 08/06/18 20:15 Troponin I 0.0400 ng/mL (0.00-0.120) 08/06/18 20:15 Total Protein 5.3 G/DL (6.3-8.2) L 08/06/18 20:15 Albumin 3.0 g/dL (3.5-5.0) L 08/06/18 20:15 Globulin 2.3 gm/dL (2.2-3.9) 08/06/18 20:15 Albumin/Globulin Ratio 1.3 (1.0-2.1) 08/06/18 20:15 Vitamin B12 847 pg/mL (239-931) 08/05/18 15:48 TSH 3rd Generation 3.24 mIU/ML (0.46-4.68) 08/05/18 15:48 Arterial Blood Potassium 3.9 mmol/L (3.6-5.2) 08/04/18 18:35 Hep B Core IgM Ab Negative (NEGATIVE) 08/08/18 15:55 Influenza Typ A,B (EIA) Negative for flu a/b (NEGATIVE) 08/04/18 18:40 Discharge Exam - Head Exam Head Exam: ATRAUMATIC, NORMAL INSPECTION, NORMOCEPHALIC Discharge Plan - Discharge Medications Prescriptions: Lactobacillus Acidophilus [Bacid Acidophilus] 1 cap PO BID #14 cap Pantoprazole [Protonix] 40 mg PO DAILY #14 ect - Follow Up Plan Condition: FAIR Disposition: HOME/ ROUTINE Instructions: Chronic Kidney Disease (DC), Colitis (DC), Acute Abdominal Pain (DC), Acute Abdominal Pain (GEN) Additional Instructions: continue dialysis m- follow up with primary doctor in 1 week Referrals: Fredis Benedict MD [Staff Provider] -
[2018-08-09 20:48] LABS: HEPATITIS B SURFACE AG Negative (NEGATIVE)
== END 2018-08-08 19:55 | disposition home or self-care (01) | DRG 391 ==
LOC: H.ER 17:09 → H.ERHOLD 20:46 → H.TEL 22:19
PROVIDERS: ADMIT Internal Medicine; ATTEND Internal Medicine
PROC: 5A1D70Z Performance of Urinary Filtration, Intermittent, Less than 6 Hours Per Day (ICD-10-PCS; principal; 2018-08-05)
PROC: 5A1D70Z Performance of Urinary Filtration, Intermittent, Less than 6 Hours Per Day (ICD-10-PCS; 2018-08-08)
DX: K52.9 Noninfective gastroenteritis and colitis, unspecified (principal); N18.6 End stage renal disease; I13.2 Hypertensive heart and chronic kidney disease with heart failure and with stage 5 chronic kidney disease, or end stage renal disease; N25.81 Secondary hyperparathyroidism of renal origin; I50.9 Heart failure, unspecified; G30.9 Alzheimer's disease, unspecified; F02.80 Dementia in other diseases classified elsewhere, unspecified severity, without behavioral disturbance, psychotic disturbance, mood disturbance, and anxiety; E86.0 Dehydration; E83.39 Other disorders of phosphorus metabolism; I48.91 Unspecified atrial fibrillation; E78.5 Hyperlipidemia, unspecified; E78.00 Pure hypercholesterolemia, unspecified; M54.5 Low back pain; D64.9 Anemia, unspecified; F32.9 Major depressive disorder, single episode, unspecified; F41.9 Anxiety disorder, unspecified; Z91.15 Patient's noncompliance with renal dialysis; Z99.2 Dependence on renal dialysis; Z88.1 Allergy status to other antibiotic agents; Z87.01 Personal history of pneumonia (recurrent)

== ENCOUNTER 2018-09-18 23:28 | Emergency (ER) | payer MEDICARE ==
[2018-09-18 23:28] VITALS: BMI 17.2
--- NOTE | 2018-09-18 23:58 | ED PDOC ---
HPI: Head Injury Time Seen by Provider: 09/18/18 23:37 Chief Complaint (Nursing): Trauma Chief Complaint (Provider): head injury Injury Occurred (Timing): Just Before Arrival Patient States: Fell Striking Head Additional Complaint(s): 78 y/o female history of dementia, end stage renal disease brought in by EMS from [facility] for evaluation of fall. As per MD, patient gets confused at night and tries to get out of bed and fell tonight doing so. Patient awake upon arrival, reports discomfort to right ankle. Denies headache, dizziness, vomiting, neck/back pain, weakness of lower extremities. Past Medical History Reviewed: Historical Data, Nursing Documentation, Vital Signs Vital Signs: Last Vital Signs Temp 98.9 F 09/18/18 23:33 Pulse 114 H 09/18/18 23:33 Resp 16 09/18/18 23:33 BP 113/73 09/18/18 23:33 Pulse Ox 98 09/18/18 23:33 - Medical History PMH: Alzheimer's Disease, Anemia, Anxiety, CHF, Dementia, HTN, Hypercholesterolemia, Pneumonia, End Stage Renal Disease, Chronic Kidney Disease (HD M-W-F) Denies: Arthritis, Asthma, Atrial Fibrillation, Bipolar Disorder, Bronchitis, CAD, Cardia Arrhythmia, COPD, Crohn's Disease, Depression, Diverticulitis, Emphysema, Fractures, Gastritis, Gall Bladder Disease, HIV, Hyperthyroidism, Hyp othyroidism, Kidney Stones, Migraine, Mitral Valve Prolapse, Multiple Sclerosis, Osteoporosis, Pancreatitis, Paranoia, Parkinson's Disease, Peripheral Edema, Post Traumatic Stress Disorder, Pulmonary Embolism, Rheumatoid Arthritis, Schizophrenia, Seizures, Sickle Cell Disease, Sexually Transmitted Disease, Sleep Apnea, TIA - Surgical History Surgical History: Appendectomy, Cholecystectomy, Tonsillectomy Denies: CABG, Carotid Endarterectomy, Coronary Stent, Pacemaker - Family History Family History: States: Unknown Family Hx, Hypertension - Immunization History Hx Tetanus Toxoid Vaccination: No Hx Influenza Vaccination: No Hx Pneumococcal Vaccination: No - Home Medications Home Medications: Ambulatory Orders Medication Instructions Recorded Atorvastatin [Lipitor] 20 mg PO DAILY 08/16/16 Labetalol [Trandate] 100 mg PO BID 08/16/16 Vitamin B Complex/Vit C/Folic 1 tab PO DAILY tab 04/01/18 [Nephro-Valentino] Memantine [Namenda] 5 mg PO DAILY #30 tab 04/24/18 Mirtazapine [Remeron] 15 mg PO HS #30 tab 04/24/18 Calcium Acetate [Phoslo] 667 mg PO TID 05/13/18 clonazePAM [Klonopin] 0.5 mg PO DAILY PRN 05/13/18 Lactobacillus Acidophilus [Bacid 1 cap PO BID #14 cap 08/08/18 Acidophilus] Pantoprazole [Protonix EC Tab] 40 mg PO DAILY #14 ect 08/08/18 Calcitriol [Rocaltrol] 0.25 mcg PO DAILY sgl 08/28/18 Sevelamer Carbonate [Renvela] 800 mg PO TID tab 08/28/18 - Allergies Allergies/Adverse Reactions: Allergies Allergy/AdvReac Type Severity Reaction Status Date / Time vancomycin AdvReac REDNESS Verified 09/18/18 23:33 Review of Systems ROS Statement: Except As Marked, All Systems Reviewed And Found Negative Neurological: Positive for: Other (head injury) Physical Exam - Reviewed Nursing Documentation Reviewed: Yes Vital Signs Reviewed: Yes - Physical Exam Appears: Positive for: Well, Non-toxic, No Acute Distress Head Exam: Positive for: NORMAL INSPECTION, NORMOCEPHALIC. Negative for: ATRAUMATIC (0.3cm superficial laceration frontal scalp with surrounding contusion; no tenderness, bony deformity noted) Skin: Positive for: Normal Color Eye Exam: Positive for: Normal appearance, EOMI, PERRL ENT: Positive for: Normal ENT Inspection Cardiovascular/Chest: Positive for: Regular Rate, Rhythm Respiratory: Positive for: Normal Breath Sounds Gastrointestinal/Abdominal: Positive for: Normal Exam Back: Positive for: Normal Inspection Extremity: Positive for: Normal ROM Neurologic/Psych: Positive for: Alert, Oriented (x2) - ECG ECG: Positive for: Viewed By Me (reviewed by ED attending) ECG Rhythm: Positive for: Atrial Flutter (no changes from previous) O2 Sat by Pulse Oximetry: 98 - Other Rad xray right ankle X-Ray: Viewed By Me X-Ray Interpretation: no acute findings - Progress ED Course And Treament: CT head CT cspine xray right ankle tylenol PO EXAM: CT Head without Intravenous Contrast. CLINICAL HISTORY: Fall TECHNIQUE: Axial computed tomography images of the head/brain without intravenous contrast. 999.02 mGy-cm COMPARISON: None provided. FINDINGS: BRAIN There is moderate periventricular, deep and subcortical white matter hypodensity bilaterally, compatible with moderate microangiopathy. There is bilateral basal ganglia calcification. No evidence for acute intracranial hemorrhage. VENTRICLES: There is mild prominence of ventricles and sulci compatible with mild atrophy. ORBITS: The orbits are unremarkable. SINUSES AND MASTOIDS: The paranasal sinuses and mastoid air cells are clear. BONES: No displaced calvarial fracture. SOFT TISSUES: There is mild extracranial soft tissue swelling at the high frontal region. MISCELLANEOUS: No evidence for acute territorial infarction. IMPRESSION: 1. There is mild atrophy. 2. There is moderate microangiopathy. 3. There is bilateral basal ganglia calcification. 4. There is mild extracranial soft tissue swelling at the high frontal region. 5. No CT evidence for acute intracranial abnormality CT scan of the cervical spine without contrast. Indication: Trauma. Pain. Technique: Axial CT scan images without contrast. Reformatted coronal and sagittal images. Findings: There are diffuse spondylotic changes. Findings are demonstrated by disc space narrowing, osteophyte formation and degenerative endplate changes. Facet joint arthropathy is noted. No fracture or dislocation is seen. No aggressive bone lesion is noted. Moderate multilevel degenerative disc disease most prominent from C3-C7. Impression: Spondylosis. Multilevel facet joint arthropathy. No acute bone pathology- Scalp laceration irrigated with 150mL normal saline. Wound edges held together using dermabond Patient ambulating to bathroom with assistance, without complaints of pain Patient requires no further intervention in the ED and is stable for discharge at this time Disposition - Clinical Impression Clinical Impression: Laceration of head, Head injury, Right ankle injury - Patient ED Disposition Is Patient to be Admitted: No Counseled Patient/Family Regarding: Studies Performed, Diagnosis, Need For Followup - Disposition Disposition: Routine/Home Disposition Time: 02:57 Condition: IMPROVED Instructions: Laceration Repair With Glue (DC), Minor Head Injury, Ankle Sprain Print Language: CITIZEN OF [place]
[2018-09-19 03:55] VITALS: BP 121/67; PULSE 97; RESP 15; TEMP 98.6; O2SAT 97
--- NOTE | 2018-09-19 09:50 | CT ---
Date of service: 09/19/2018 PROCEDURE: CT HEAD WITHOUT CONTRAST. HISTORY: fall COMPARISON: 03/26/2018 TECHNIQUE: Axial computed tomography images were obtained through the head/brain without intravenous contrast. Radiation dose: Total exam DLP = 999.02 mGy-cm. This CT exam was performed using one or more of the following dose reduction techniques: Automated exposure control, adjustment of the mA and/or kV according to patient size, and/or use of iterative reconstruction technique. FINDINGS: HEMORRHAGE: No intracranial hemorrhage. BRAIN: No mass effect or edema. Mild diffuse age-appropriate cerebral atrophy. Moderate to severe patchy and confluent periventricular and deep/subcortical white matter lucency consistent with microvascular white matter ischemic change. 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 VENTRICLES: Unremarkable. No hydrocephalus. CALVARIUM: Unremarkable. PARANASAL SINUSES: Unremarkable as visualized. No significant inflammatory changes. MASTOID AIR CELLS: Unremarkable as visualized. No inflammatory changes. OTHER FINDINGS: None. IMPRESSION: No intracranial mass, hemorrhage or evidence of acute infarct. Age related atrophy and moderate to severe chronic white matter ischemic change. Old lacunar infarct right caudate nucleus. The preliminary findings for this examination were reported by [facility] at 1:15 a.m. on 09/19/2018.. There is concurrence of this report with the preliminary findings.
--- NOTE | 2018-09-19 10:08 | CT ---
Date of service: 09/19/2018 PROCEDURE: CT Cervical Spine without contrast HISTORY: fall COMPARISON: None available. TECHNIQUE: Axial computed tomography images were obtained of the cervical spine without the use of intravenous contrast. Coronal and sagittal reformatted images were created and reviewed. Radiation dose: Total exam DLP = 224.35 mGy-cm. This CT exam was performed using one or more of the following dose reduction techniques: Automated exposure control, adjustment of the mA and/or kV according to patient size, and/or use of iterative reconstruction technique. FINDINGS: VERTEBRAE: The vertebral bodies are maintained in height. Normal alignment is maintained aside from grade 1 anterolisthesis at C4-5, most likely degenerative in origin. The atlantoaxial articulation and odontoid process are intact. DISCS/SPINAL CANAL/NEURAL FORAMINA: No significant central canal or neural foraminal stenosis. Narrowing of the C5-6 and C6-7 intervertebral disc spaces associated with large osteophytes, consistent with degenerative disc disease. PARASPINAL SOFT TISSUES: Bilateral thyroid nodules. Correlate with thyroid ultrasound examination. OTHER FINDINGS: None. IMPRESSION: No evidence of fracture. Grade 1 anterolisthesis at C4-5, likely degenerative. Degenerative disc disease C5-6 and C6-7. Probable multiple thyroid nodules. Correlate with thyroid ultrasound examination. The preliminary findings for this examination were reported by [facility] at 1:20 a.m. on 09/19/2018. There is discordance of this report with the preliminary findings. Bilateral thyroid nodules were not described in the preliminary report of this examination.
--- NOTE | 2018-09-19 11:38 | RAD ---
Date of service: 09/19/2018 PROCEDURE: Right Ankle Radiographs. HISTORY: fall, lateral pain COMPARISON: 09/10/2012. FINDINGS: BONES: There is diffuse bone demineralization. There is no acute displaced fracture or bone destruction. Bone alignment is normal. There is a stable well corticated ossific density inferior to the medial malleolus likely related to accessory ossifications centers. There is a large plantar calcaneal spur and small dorsal calcaneal enthesophyte. JOINTS: Normal. No osteoarthritis. Ankle mortise maintained. Talar dome intact SOFT TISSUES: There is mild lateral soft tissue swelling. There is severe dorsal soft tissue swelling. OTHER FINDINGS: There are atherosclerotic vascular calcifications. IMPRESSION: No acute displaced fracture or dislocation. Mild lateral soft tissue swelling.
--- NOTE | 2018-09-19 18:26 | CARD ---
APPROVED REPORT Date of service: 09/19/2018 EKG Measurement Heart [id number] <Conclusion> Atrial flutter with variable AV block Septal infarct, age undetermined ST & T wave abnormality, consider lateral ischemia Prolonged QT Abnormal ECG
--- NOTE | 2018-09-21 19:39 | ED PDOC ---
ED Additional Note - Date & Time of Evaluation Date of Evaluation: 09/21/18 Time of Evaluation: 19:30 - Physician Additional Note Physician Additional Note: PA Performing Radiology call backs. Cervical spine CT w/o contrast on 09/19/18: FINDINGS: VERTEBRAE: The vertebral bodies are maintained in height. Normal alignment is maintained aside from grade 1 anterolisthesis at C4-5, most likely degenerative in origin. The atlantoaxial articulation and odontoid process are intact. DISCS/SPINAL CANAL/NEURAL FORAMINA: No significant central canal or neural foraminal stenosis. Narrowing of the C5-6 and C6-7 intervertebral disc spaces associated with large osteophytes, consistent with degenerative disc disease. PARASPINAL SOFT TISSUES: Bilateral thyroid nodules. Correlate with thyroid ultrasound examination. OTHER FINDINGS: None. IMPRESSION: No evidence of fracture. Grade 1 anterolisthesis at C4-5, likely degenerative. Degenerative disc disease C5-6 and C6-7. Probable multiple thyroid nodules. Correlate with thyroid ultrasound examination. The preliminary findings for this examination were reported by [facility] at 1:20 a.m. on 09/19/2018. There is discordance of this report with the preliminary findings. Bilateral thyroid nodules were not described in the preliminary report of this examination. Patient called but no answer and unable to leave message. Message left with son (emergency contact). Second attempt to be made.
== END 2018-09-19 03:57 ==
LOC: H.ER 23:28
DX: S01.01XA Laceration without foreign body of scalp, initial encounter (principal); S09.90XA Unspecified injury of head, initial encounter; S99.911A Unspecified injury of right ankle, initial encounter; W19.XXXA Unspecified fall, initial encounter; Y92.89 Other specified places as the place of occurrence of the external cause; E04.2 Nontoxic multinodular goiter; E78.00 Pure hypercholesterolemia, unspecified; F02.80 Dementia in other diseases classified elsewhere, unspecified severity, without behavioral disturbance, psychotic disturbance, mood disturbance, and anxiety; G30.9 Alzheimer's disease, unspecified; I13.2 Hypertensive heart and chronic kidney disease with heart failure and with stage 5 chronic kidney disease, or end stage renal disease; I50.9 Heart failure, unspecified; I73.9 Peripheral vascular disease, unspecified; I48.92 Unspecified atrial flutter; M50.322 Other cervical disc degeneration at C5-C6 level; Z88.1 Allergy status to other antibiotic agents

== ENCOUNTER 2018-09-25 16:16 | Inpatient (IN) | payer MEDICARE ==
--- NOTE | 2018-09-25 17:45 | RAD ---
Date of service: 09/25/2018 HISTORY: ESRD COMPARISON: 08/16/2018 FINDINGS: LUNGS: There is compressive atelectasis of the right lower lobe. The left lung is clear. PLEURA: Little interval change in moderate right pleural effusion. No large left pleural effusion. No pneumothorax. CARDIOVASCULAR: Persistent moderate cardiomegaly. There are aortic atherosclerotic calcifications present. OSSEOUS STRUCTURES: Within normal limits for the patient's age. VISUALIZED UPPER ABDOMEN: Normal. OTHER FINDINGS: None. IMPRESSION: No significant interval change in moderate right pleural effusion.
[2018-09-25 18:07] LABS: BASO # 0.1 K/uL (0.0-0.2); BASO % 1.1 % (0.0-2.0); EOS # 0.1 K/uL (0.0-0.7); EOS % 1.6 % (0.0-4.0); HEMOGLOBIN 13.9 g/dL (12.0-16.0); LYMPH % 17.8 % (20.0-40.0); MEAN CELL VOLUME 94.6 fl (81.0-99.0); MEAN CORPUSCULAR HEMOGLOBIN 30.4 pg (27.0-31.0); MEAN CORPUSCULAR HGB CONC 32.2 g/dL (33.0-37.0); MEAN PLATELET VOLUME 11.5 fl (7.2-11.7); MONO % 17.9 % (0.0-10.0); NEUT # 3.3 K/uL (1.8-7.0); NEUT % 61.6 % (50.0-75.0); NRBC % 0.1 % (0.0-0.0); RBC 4.57 Mil/uL (3.80-5.20); RED CELL DISTRIBUTION WIDTH 20.4 % (11.5-14.5); WHITE BLOOD COUNT 5.4 K/uL (4.8-10.8)
[2018-09-25 18:18] LABS: ALB/GLOB RATIO 1.3 (1.0-2.1); ALBUMIN 3.5 g/dL (3.5-5.0)
[2018-09-25 18:29] LABS: TROPONIN I 0.041 ng/mL (0.00-0.120)
--- NOTE | 2018-09-25 19:09 | ED PDOC ---
HPI: General Adult Time Seen by Provider: 09/25/18 17:03 Chief Complaint (Nursing): Palpitations Chief Complaint (Provider): elevated HR History Per: Patient, EMS History/Exam Limitations: clinical condition, physical impairment Onset/Duration Of Symptoms: Intermittent Episodes Current Symptoms Are (Timing): Still Present Severity: Moderate Recently: Seen In ED, Treated By A Physician, Hospitalized Additional Complaint(s): 78yo female multiple medical problems presents from dialysis center where found to have elevated HR hence dialysis cancelled and sent to ED. In ED patient notes mild dyspnea, but overall poor historian. 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 Past Medical History Reviewed: Historical Data, Nursing Documentation, Vital Signs Vital Signs: Last Vital Signs Temp 98 F 09/25/18 16:21 Pulse 122 H 09/25/18 17:30 Resp 18 09/25/18 17:20 BP 110/72 09/25/18 17:20 Pulse Ox 97 09/25/18 17:20 - Medical History PMH: Alzheimer's Disease, Anemia, Anxiety, CHF, Dementia, HTN, Hypercholesterolemia, Pneumonia, End Stage Renal Disease, Chronic Kidney Disease (HD M-W-F) Denies: Arthritis, Asthma, Atrial Fibrillation, Bipolar Disorder, Bronchitis, CAD, Cardia Arrhythmia, COPD, Crohn's Disease, Depression, Diverticulitis, Emphysema, Fractures, Gastritis, Gall Bladder Disease, HIV, Hyperthyroidism, Hypothyroidism, Kidney Stones, Migraine, Mitral Valve Prolapse, Multiple Sclerosis, Osteoporosis, Pancreatitis, Paranoia, Parkinson's Disease, Peripheral Edema, Post Traumatic Stress Disorder, Pulmonary Embolism, Rheumatoid Arthritis, Schizophrenia, Seizures, Sickle Cell Disease, Sexually Transmitted Disease, Sleep Apnea, TIA - Surgical History Surgical History: Appendectomy, Cholecystectomy, Tonsillectomy Denies: CABG, Carotid Endarterectomy, Coronary Stent, Pacemaker - Family History Family History: States: Unknown Family Hx, Hypertension - Living Arrangements Living Arrangements: Shelter/Assist Lvng - Social History Current smoker - smoking cessation education provided: No - Immunization History Hx Tetanus Toxoid Vaccination: No Hx Influenza Vaccination: No Hx Pneumococcal Vaccination: No - Home Medications Home Medications: Ambulatory Orders Medication Instructions Recorded Atorvastatin [Lipitor] 20 mg PO DAILY 08/16/16 Labetalol [Trandate] 100 mg PO BID 08/16/16 Vitamin B Complex/Vit C/Folic 1 tab PO DAILY tab 09/17/18 [Nephro-Valentino] Memantine [Namenda] 5 mg PO DAILY #30 tab 04/24/18 Mirtazapine [Remeron] 15 mg PO HS #30 tab 04/24/18 Calcium Acetate [Phoslo] 667 mg PO TID 05/13/18 clonazePAM [Klonopin] 0.5 mg PO DAILY PRN 05/13/18 Lactobacillus Acidophilus [Bacid 1 cap PO BID #14 cap 08/08/18 Acidophilus] Pantoprazole [Protonix EC Tab] 40 mg PO DAILY #14 ect 08/08/18 Calcitriol [Rocaltrol] 0.25 mcg PO DAILY sgl 08/28/18 Sevelamer Carbonate [Renvela] 800 mg PO TID tab 08/28/18 - Allergies Allergies/Adverse Reactions: Allergies Allergy/AdvReac Type Severity Reaction Status Date / Time vancomycin AdvReac REDNESS Verified 09/25/18 16:20 Review of Systems Review Of Systems: ROS cannot be obtained secondary to pt's inabilty to answer questions. Physical Exam - Reviewed Nursing Documentation Reviewed: Yes Vital Signs Reviewed: Yes - Physical Exam Appears: Positive for: Non-toxic (chronically ill) Head Exam: Positive for: ATRAUMATIC, NORMAL INSPECTION, NORMOCEPHALIC Skin: Positive for: Normal Color, Warm, DRY Eye Exam: Positive for: EOMI, Normal appearance, PERRL ENT: Positive for: Normal ENT Inspection Neck: Positive for: Normal, Painless ROM Cardiovascular/Chest: Positive for: Tachycardia Respiratory: Positive for: Decreased Breath Sounds Pulses-Radial (L): 3+/4+ Pulses-Radial (R): 3+/4+ Gastrointestinal/Abdominal: Positive for: Soft. Negative for: Tenderness Back: Positive for: Normal Inspection Extremity: Positive for: Normal ROM Neurological/Psych: Positive for: Awake, Alert, Normal Tone, Other (mild confusion baseline) - Laboratory Results Result Diagrams: 09/25/18 17:34 09/25/18 17:34 Lab Results: Troponin I 0.0410 ng/mL (0.00-0.120) 09/25/18 17:34 Total Bilirubin 1.5 mg/dl (0.2-1.3) H 09/25/18 17:34 AST 47 U/L (14-36) H 09/25/18 17:34 ALT 35 U/L (9-52) 09/25/18 17:34 Alkaline Phosphatase 297 U/L (38-126) H D 09/25/18 17:34 Total Protein 6.0 G/DL (6.3-8.2) L 09/25/18 17:34 Albumin 3.5 g/dL (3.5-5.0) 09/25/18 17:34 Globulin 2.6 gm/dL (2.2-3.9) 09/25/18 17:34 Albumin/Globulin Ratio 1.3 (1.0-2.1) 09/25/18 17:34 - ECG ECG: Positive for: Interpreted By Me ECG Rhythm: Positive for: Atrial Flutter, ST/T Changes, Nonspecific Changes Interpretation Of EC:1 block Rate: 119 O2 Sat by Pulse Oximetry: 97 Pulse Ox Interpretation: Normal Medical Decision Making Medical Decision Making: cardizem 10mg ordered for aflutter w 2:1 block BP adequate labs reviewed, mild hyperkalemia no peak T waves d/w Dr Martines admit Obs for rate control and HD in am, care transferred 6pm Consult placed Dr Benedict Possible palliative care consult recommended as multiple hospitalizations with poor quality of life. Disposition - Clinical Impression Clinical Impression: Atrial flutter, Hyperkalemia, Dialysis complication - Patient ED Disposition Is Patient to be Admitted: No Counseled Patient/Family Regarding: Studies Performed, Diagnosis, Need For Followup, Rx Given - Disposition Disposition Time: 17:45 Condition: FAIR - Pt Status Changed To: Hospital Disposition Of: Observation - POA Present On Arrival: None
[2018-09-25] MEDS ORDERED: Albuterol-Ipratrop 3 mg / 0.5 (3 ml) UD ONE (21:41)
[2018-09-25] MEDS ORDERED: Albuterol-Ipratrop 3 mg / 0.5 (3 ml) UD INH STA (22:05)
[2018-09-26] MEDS ORDERED: Haloperidol Lactate 2 mg/ml Liquid PO ONE (03:54)
[2018-09-26] MEDS ORDERED: Albuterol-Ipratrop 3 mg / 0.5 (3 ml) UD INH PRN (05:50)
[2018-09-26 06:48] LABS: BASO % 0.4 % (0.0-2.0); EOS # 0.1 K/uL (0.0-0.7); EOS % 1.4 % (0.0-4.0); HEMOGLOBIN 14.8 g/dL (12.0-16.0); LYMPH # 1.3 K/uL (1.0-4.3); LYMPH % 20.8 % (20.0-40.0); MEAN CELL VOLUME 94.3 fl (81.0-99.0); MEAN CORPUSCULAR HEMOGLOBIN 30.2 pg (27.0-31.0); MONO # 1.2 K/uL (0.0-0.8); MONO % 19.6 % (0.0-10.0); NEUT # 3.6 K/uL (1.8-7.0); NEUT % 57.8 % (50.0-75.0); NRBC % 0.1 % (0.0-0.0); RBC 4.92 Mil/uL (3.80-5.20); RED CELL DISTRIBUTION WIDTH 20.4 % (11.5-14.5); WHITE BLOOD COUNT 6.2 K/uL (4.8-10.8)
[2018-09-26 07:00] LABS: ALB/GLOB RATIO 1.4 (1.0-2.1); ALBUMIN 3.7 g/dL (3.5-5.0); CALCIUM 9.3 mg/dL (8.4-10.2)
[2018-09-26 07:05] LABS: TROPONIN I 0.044 ng/mL (0.00-0.120)
[2018-09-26] MEDS: Lactobacillus Acidophilus 500 MU Cap PO SCH ×2 (08:43→17:11)
[2018-09-26] MEDS: Pantoprazole 40 mg EC Tab PO SCH (08:45)
--- NOTE | 2018-09-26 09:06 | CARD ---
APPROVED REPORT Date of service: 09/25/2018 EKG Measurement Heart [id number] <Conclusion> Atrial flutter with 2:[address] & T wave abnormality, consider lateral ischemia Prolonged QT Abnormal ECG
--- NOTE | 2018-09-26 10:16 | CP.PCM.CON ---
History of Present Illness - History of Present Illness History of Present Illness: This patient who is 78 years of age female known to me with end-stage renal disease on maintenance hemodialysis 3 times a week but she has not been compliance with the dialysis keep missing here and they are and she was sent from intermediate yesterday because her heart rate was elevated having tachycardia in the range of 115 and the patient complaining of some shortness of breath this morning and did some difficulty breathing. She missed dialysis yesterday. Patient has long history with numerous of admission in this hospital and other hospital for noncompliance dialysis related complicated problem. Including but not limited pulmonary edema congestive heart failure hypertension hyperphosphatemia secondary hyperparathyroidism and Alzheimer among other things. Social history not contributory Review of Systems - Review of Systems Systems not reviewed;Unavailable: Respiratory Distress - Constitutional Constitutional: Anorexia. absent: Chills - EENT Nose/Mouth/Throat: absent: Epistaxis - Cardiovascular Cardiovascular: absent: Acrocyanosis - Respiratory Respiratory: Cough, Dyspnea, Chest Congestion - Gastrointestinal Gastrointestinal: Nausea. absent: Coffee Ground Emesis - Genitourinary Genitourinary: Nocturia - Musculoskeletal Musculoskeletal: absent: Arthralgias - Neurological Neurological: Abnormal Gait - Psychiatric Psychiatric: As Per HPI - Endocrine Endocrine: Fatigue - Hematologic/Lymphatic Hematologic: absent: Easy Bleeding Past Patient History - Infectious Disease Hx of Infectious Diseases: None - Tetanus Immunizations Tetanus Immunization: Unknown - Past Medical History & Family History Past Medical History?: Yes - Past Social History Smoking Status: Never Smoked - CARDIAC Hx Cardiac Disorders: Yes - PULMONARY Hx Respiratory Disorders: Yes - NEUROLOGICAL Hx Neurological Disorder: Yes Hx Alzheimer's Disease: Yes Hx Dementia: Yes Hx Migraine: No Hx Multiple Sclerosis: No Hx Parkinson's Disease: No Hx Seizures: No Hx Transient Ischemic Attacks (TIA): No - HEENT Hx HEENT Problems: No - RENAL Hx Chronic Kidney Disease: Yes (HD M-W-F) Hx Dialysis: Yes - ENDOCRINE/METABOLIC Hx Endocrine Disorders: No Hx Hyperthyroidism: No Hx Hypothyroidism: No - HEMATOLOGICAL/ONCOLOGICAL Hx Blood Disorders: Yes Hx Anemia: Yes Hx Human Immunodeficiency Virus (HIV): No Hx Sickle Cell Disease: No - INTEGUMENTARY Hx Dermatological Problems: No - MUSCULOSKELETAL/RHEUMATOLOGICAL Hx Musculoskeletal Disorders: No Hx Arthritis: No Hx Falls: Yes Hx Fractures: No Hx Osteoporosis: No Hx Rheumatoid Arthritis: No - GASTROINTESTINAL Hx Gastrointestinal Disorders: No Hx Crohn's Disease: No Hx Diverticulitis: No Hx Gall Bladder Disease: No Hx Gastritis: No Hx Pancreatitis: No - GENITOURINARY/GYNECOLOGICAL Hx Genitourinary Disorders: No Hx Sexually Transmitted Disorders: No - PSYCHIATRIC Hx Psychophysiologic Disorder: Yes Hx Anxiety: Yes Hx Bipolar Disorder: No Hx Depression: No Hx Paranoia: No Hx Post Traumatic Stress Disorder: No Hx Schizophrenia: No - SURGICAL HISTORY Hx Surgeries: Yes Hx Appendectomy: Yes Hx Carotid Endarterectomy: No Hx Cholecystectomy: Yes Hx Coronary Artery Bypass Graft: No Hx Coronary Stent: No Hx Tonsillectomy: Yes - ANESTHESIA Hx Anesthesia: Yes Hx Anesthesia Reactions: No Hx Malignant Hyperthermia: No Meds Allergies/Adverse Reactions: Allergies Allergy/AdvReac Type Severity Reaction Status Date / Time vancomycin AdvReac REDNESS Verified 09/25/18 16:20 - Medications Medications: Current Medications Acetaminophen (Tylenol 325mg Tab) 650 mg PO Q4 PRN PRN Reason: Pain, Mild (1-3) Acetaminophen (Tylenol 325mg Tab) 650 mg PO Q4 PRN PRN Reason: Fever >100.4 F Albuterol/Ipratropium (Duoneb 3 Mg/0.5 Mg (3 Ml) Ud) 3 ml INH RQ6 PRN PRN Reason: Wheezing Atorvastatin Calcium (Lipitor) 20 mg PO DAILY [facility] Last Admin: 09/26/18 08:45 Dose: 20 mg Haloperidol Lactate (Haldol) 1 mg IM Q6 PRN PRN Reason: Agitation Heparin Sodium (Porcine) (Heparin) 5,000 units SC Q12 [facility]; Protocol Labetalol HCl (Trandate) 100 mg PO BID [facility] Last Admin: 09/26/18 08:45 Dose: Not Given Lactobacillus Acidophilus (Bacid Acidophilus) 1 cap PO BID [facility] Last Admin: 09/26/18 08:43 Dose: 1 cap Loperamide HCl (Imodium) 2 mg PO Q6 PRN PRN Reason: Loose stools Memantine (Namenda) 5 mg PO DAILY [facility] Last Admin: 09/26/18 08:43 Dose: 5 mg Mirtazapine (Remeron) 15 mg PO HS [facility] Pantoprazole Sodium (Protonix Ec Tab) 40 mg PO DAILY [facility] Last Admin: 09/26/18 08:45 Dose: 40 mg Sevelamer Carbonate (Renvela) 800 mg PO TID [facility] Last Admin: 09/26/18 08:43 Dose: 800 mg Physical Exam - Constitutional Appears: In Acute Distress - Eye Exam Eye Exam: Conjunctival injection - ENT Exam ENT Exam: Mucous Membranes Moist - Neck Exam Neck exam: Negative for: Lymphadenopathy - Respiratory Exam Respiratory Exam: Rhonchi, NORMAL BREATHING PATTERN. absent: Chest Wall Tenderness - Cardiovascular Exam Cardiovascular Exam: JVD. absent: Gallop, Rubs - GI/Abdominal Exam GI & Abdominal Exam: absent: Diminished Bowel Sounds, Guarding - Extremities Exam Extremities exam: Negative for: calf tenderness - Back Exam Back exam: absent: CVA tenderness (L), CVA tenderness (R) - Neurological Exam Neurological exam: Altered - Psychiatric Exam Psychiatric exam: Anxious Results - Vital Signs Recent Vital Signs: Last Vital Signs Temp 97.4 F L 09/26/18 08:15 Pulse 112 H 09/26/18 08:15 Resp 20 09/26/18 08:15 BP 120/81 09/26/18 08:15 Pulse Ox 99 09/26/18 08:15 - Labs Result Diagrams: 09/26/18 06:15 09/26/18 06:15 Labs: Laboratory Results - last 24 hr 09/25/18 09/25/18 09/26/18 17:34 17:34 06:15 WBC 5.4 RBC 4.57 Hgb 13.9 Hct 43.3 MCV 94.6 D MCH 30.4 MCHC 32.2 L RDW 20.4 H Plt Count 93 L D MPV 11.5 Neut % (Auto) 61.6 Lymph % (Auto) 17.8 L [place] % (Auto) 17.9 H Eos % (Auto) 1.6 Baso % (Auto) 1.1 Neut # (Auto) 3.3 Lymph # (Auto) 1.0 [place] # (Auto) 1.0 H Eos # (Auto) 0.1 Baso # (Auto) 0.1 Sodium 137 138 Potassium 5.2 H 5.8 H Chloride 97 L 96 L Carbon Dioxide 26 26 Anion Gap 19 22 H BUN 60 H 70 H Creatinine 5.6 H 6.2 H Est GFR ( Amer) 9 8 Est GFR (Non-Af Amer) 7 6 Random Glucose 113 H 84 Calcium 9.0 9.3 Total Bilirubin 1.5 H 2.0 H AST 47 H 60 H D ALT 35 44 Alkaline Phosphatase 297 H D 338 H Troponin I 0.0410 0.0440 Total Protein 6.0 L 6.4 Albumin 3.5 3.7 Globulin 2.6 2.7 Albumin/Globulin Ratio 1.3 1.4 TSH 3rd Generation 4.81 H 09/26/18 06:15 WBC 6.2 RBC 4.92 Hgb 14.8 Hct 46.4 MCV 94.3 MCH 30.2 MCHC 32.0 L RDW 20.4 H Plt Count 79 L MPV 11.0 Neut % (Auto) 57.8 Lymph % (Auto) 20.8 [place] % (Auto) 19.6 H Eos % (Auto) 1.4 Baso % (Auto) 0.4 Neut # (Auto) 3.6 Lymph # (Auto) 1.3 [place] # (Auto) 1.2 H Eos # (Auto) 0.1 Baso # (Auto) 0.0 Sodium Potassium Chloride Carbon Dioxide Anion Gap BUN Creatinine Est GFR ( Amer) Est GFR (Non-Af Amer) Random Glucose Calcium Total Bilirubin AST ALT Alkaline Phosphatase Troponin I Total Protein Albumin Globulin Albumin/Globulin Ratio TSH 3rd Generation Assessment & Plan (1) Chronic kidney disease with end stage renal failure on dialysis Assessment and Plan: End-stage renal disease Volume overloaded Missing dialysis Bilateral leg edema Pleural effusion as noted on the x-ray Hypertension Hyperphosphatemia Secondary hyperparathyroidism Recommendation Urgent dialysis Spoke to the nurse at the bedside to call for immediate dialysis and as soon as possible Consent was taken Order was given Continue phosphorus binder Continue antihypertensive medication Status: Acute (2) Hyperkalemia Status: Acute (3) Abnormal liver enzymes Status: Acute
[2018-09-26 13:17] VITALS: BMI 23.3
[2018-09-26] MEDS ORDERED: Metoprolol 1 mg/ml Inj IVP ONE (14:16)
[2018-09-27] MEDS: Pantoprazole 40 mg EC Tab PO SCH (09:19)
[2018-09-27] MEDS: Lactobacillus Acidophilus 500 MU Cap PO SCH ×2 (09:23→18:15)
[2018-09-27 10:58] LABS: HEMOGLOBIN 13.9 g/dL (12.0-16.0); MEAN CELL VOLUME 94.4 fl (81.0-99.0); MEAN CORPUSCULAR HGB CONC 31.7 g/dL (33.0-37.0); RBC 4.64 Mil/uL (3.80-5.20); RED CELL DISTRIBUTION WIDTH 20.2 % (11.5-14.5); WHITE BLOOD COUNT 4.7 K/uL (4.8-10.8)
[2018-09-27 11:53] LABS: CALCIUM 8.5 mg/dL (8.4-10.2)
--- NOTE | 2018-09-27 13:13 | CP.PCM.PN ---
Subjective - Date & Time of Evaluation Date of Evaluation: 09/27/18 Time of Evaluation: 09:05 - Subjective Subjective: Patient in bed complaining of shortness of breath and difficulty breathing although she completed hemodialysis yesterday with ultrafiltration but she is still edematous all over. Vital signs noted to be stable. No chills or vomiting reported. Objective - Vital Signs/Intake and Output Vital Signs (last 24 hours): Temp Pulse Resp BP Pulse Ox 97.3 F L 117 H 20 111/72 96 09/27/18 09:37 09/27/18 09:37 09/27/18 09:37 09/27/18 09:37 09/27/18 09:37 - Medications Medications: Current Medications Acetaminophen (Tylenol 325mg Tab) 650 mg PO Q4 PRN PRN Reason: Pain, Mild (1-3) Acetaminophen (Tylenol 325mg Tab) 650 mg PO Q4 PRN PRN Reason: Fever >100.4 F Albuterol/Ipratropium (Duoneb 3 Mg/0.5 Mg (3 Ml) Ud) 3 ml INH RQ6 PRN PRN Reason: Wheezing Atorvastatin Calcium (Lipitor) 20 mg PO DAILY [facility] Last Admin: 09/27/18 09:18 Dose: 20 mg Haloperidol Lactate (Haldol) 1 mg IM Q6 PRN PRN Reason: Agitation Last Admin: 09/27/18 12:36 Dose: 1 mg Labetalol HCl (Trandate) 100 mg PO BID [facility] Last Admin: 09/27/18 09:21 Dose: Not Given Lactobacillus Acidophilus (Bacid Acidophilus) 1 cap PO BID [facility] Last Admin: 09/27/18 09:23 Dose: 1 cap Loperamide HCl (Imodium) 2 mg PO Q6 PRN PRN Reason: Loose stools Memantine (Namenda) 5 mg PO DAILY [facility] Last Admin: 09/27/18 09:18 Dose: 5 mg Mirtazapine (Remeron) 15 mg PO HS [facility] Last Admin: 09/26/18 22:51 Dose: 15 mg Pantoprazole Sodium (Protonix Ec Tab) 40 mg PO DAILY [facility] Last Admin: 09/27/18 09:19 Dose: 40 mg Sevelamer Carbonate (Renvela) 800 mg PO TID [facility] Last Admin: 09/27/18 12:40 Dose: 800 mg - Labs Labs: 09/27/18 10:30 09/27/18 10:30 - Constitutional Appears: No Acute Distress - Eye Exam Eye Exam: Conjunctival injection - ENT Exam ENT Exam: Mucous Membranes Moist - Neck Exam Neck Exam: absent: Lymphadenopathy - Respiratory Exam Respiratory Exam: Rhonchi, Wheezes, NORMAL BREATHING PATTERN - Cardiovascular Exam Cardiovascular Exam: absent: Gallop, JVD ( ), Rubs - GI/Abdominal Exam GI & Abdominal Exam: Soft, Normal Bowel Sounds. absent: Guarding - Extremities Exam Extremities Exam: absent: Calf Tenderness - Back Exam Back Exam: absent: CVA tenderness (L), CVA tenderness (R) - Neurological Exam Neurological Exam: Altered, Awake - Psychiatric Exam Psychiatric exam: Agitated - Skin Skin Exam: absent: Cyanosis Assessment and Plan (1) Chronic kidney disease with end stage renal failure on dialysis Assessment & Plan: End-stage renal disease Volume overloaded Missing dialysis Bilateral leg edema Pleural effusion as noted on the x-ray Hypertension Hyperphosphatemia Secondary hyperparathyroidism Plan Hemodialysis right now with additional ultrafiltration the patient need more dialysis tomorrow short hemodialysis with more ultrafiltration because of this massive edema in the lower extremity and all the way up. Continue phosphorus binder and treatment of antihypertensive. Oxygen and antibiotics as per primary team considering GFR. as per primary team Status: Acute (2) Hyperkalemia Status: Acute (3) Abnormal liver enzymes Status: Acute
--- NOTE | 2018-09-28 00:41 | CP.PCM.HP ---
History of Present Illness - History of Present Illness History of Present Illness: CC: Shortness of Breath History of Present Illness: An 78yo female multiple medical problems presents from dialysis center where found to have elevated HR hence dialysis cancelled and sent to ED. In ED patient notes ++dyspnea, but overall poor historian. In the ER, patient was found to have A. Fib with RVR. Present on Admission - Present on Admission Any Indicators Present on Admission: No Review of Systems - Review of Systems All systems: reviewed and no additional remarkable complaints except Review of Systems: as per HPI Past Patient History - Infectious Disease Hx of Infectious Diseases: None - Tetanus Immunizations Tetanus Immunization: Unknown - Past Medical History & Family History Past Medical History?: Yes Past Family History: Reviewed and not pertinent - Past Social History Smoking Status: Never Smoked Alcohol: None Drugs: Denies - CARDIAC Hx Atrial Fibrillation: No Hx Cardia Arrhythmia: No Hx Congestive Heart Failure: Yes Hx Hypercholesterolemia: Yes Hx Hypertension: Yes Hx Mitral Valve Prolapse: No Hx Pacemaker: No Hx Peripheral Edema: No - PULMONARY Hx Asthma: No Hx Bronchitis: No Hx Chronic Obstructive Pulmonary Disease (COPD): No Hx Emphysema: No Hx Pneumonia: Yes Hx Pulmonary Embolism: No Hx Sleep Apnea: No - NEUROLOGICAL Hx Alzheimer's Disease: Yes Hx Dementia: Yes Hx Migraine: No Hx Multiple Sclerosis: No Hx Parkinson's Disease: No Hx Seizures: No Hx Transient Ischemic Attacks (TIA): No - HEENT Hx HEENT Problems: No - RENAL Hx Chronic Kidney Disease: Yes (HD -W-) Hx Kidney Stones: No - ENDOCRINE/METABOLIC Hx Hyperthyroidism: No Hx Hypothyroidism: No - HEMATOLOGICAL/ONCOLOGICAL Hx Anemia: Yes Hx Human Immunodeficiency Virus (HIV): No Hx Sickle Cell Disease: No - INTEGUMENTARY Hx Dermatological Problems: No - MUSCULOSKELETAL/RHEUMATOLOGICAL Hx Arthritis: No Hx Fractures: No Hx Osteoporosis: No Hx Rheumatoid Arthritis: No - GASTROINTESTINAL Hx Crohn's Disease: No Hx Diverticulitis: No Hx Gall Bladder Disease: No Hx Gastritis: No Hx Pancreatitis: No - GENITOURINARY/GYNECOLOGICAL Hx Sexually Transmitted Disorders: No - PSYCHIATRIC Hx Anxiety: Yes Hx Bipolar Disorder: No Hx Depression: No Hx Paranoia: No Hx Post Traumatic Stress Disorder: No Hx Schizophrenia: No - SURGICAL HISTORY Hx Appendectomy: Yes Hx Carotid Endarterectomy: No Hx Cholecystectomy: Yes Hx Coronary Artery Bypass Graft: No Hx Coronary Stent: No Hx Tonsillectomy: Yes - ANESTHESIA Hx Anesthesia: Yes Hx Anesthesia Reactions: No Hx Malignant Hyperthermia: No Meds Home Medications: Home Medication List Medication Instructions Recorded Confirmed Type Haloperidol [Haldol] 1 mg PO Q6 #30 tab 10/02/18 Rx Allergies/Adverse Reactions: Allergies Allergy/AdvReac Type Severity Reaction Status Date / Time vancomycin AdvReac REDNESS Verified 09/25/18 16:20 Physical Exam - Constitutional Appears: In Acute Distress, Cachectic, Chronically Ill - Head Exam Head Exam: ATRAUMATIC, NORMAL INSPECTION, NORMOCEPHALIC - Eye Exam Eye Exam: EOMI, Normal appearance, PERRL Pupil Exam: NORMAL ACCOMODATION, PERRL - ENT Exam ENT Exam: Mucous Membranes Moist, Normal Exam - Neck Exam Neck exam: Positive for: Normal Inspection - Respiratory Exam Respiratory Exam: Clear to Auscultation Bilateral, NORMAL BREATHING PATTERN - Cardiovascular Exam Cardiovascular Exam: Tachycardia, Irregular Rhythm, +S1, +S2 - GI/Abdominal Exam GI & Abdominal Exam: Normal Bowel Sounds, Soft. absent: Tenderness - Extremities Exam Extremities exam: Positive for: pedal edema - Back Exam Back exam: NORMAL INSPECTION - Neurological Exam Neurological exam: Abnormal Gait, Altered, Motor Sensory Deficit Additional comments: Drowsy but arousable - Psychiatric Exam Psychiatric exam: Depressed, Flat Affect - Skin Skin Exam: Dry, Intact, Normal Color, Rash, Warm Results - Vital Signs Recent Vital Signs: Last Vital Signs Temp 97.6 F 09/27/18 20:05 Pulse 120 H 09/27/18 20:05 Resp 18 09/27/18 20:05 BP 143/89 09/27/18 20:05 Pulse Ox 95 09/27/18 20:05 - Labs Result Diagrams: 09/27/18 10:30 09/27/18 10:30 Labs: Laboratory Results - last 24 hr 09/27/18 09/27/18 10:30 10:30 WBC 4.7 L RBC 4.64 Hgb 13.9 Hct 43.8 MCV 94.4 MCH 30.0 MCHC 31.7 L RDW 20.2 H Plt Count 75 L Sodium 136 Potassium 4.5 Chloride 96 L Carbon Dioxide 25 Anion Gap 20 BUN 48 H Creatinine 4.8 H Est GFR ( Amer) 11 Est GFR (Non-Af Amer) 9 Random Glucose 155 H Calcium 8.5 Assessment & Plan (1) Altered mental status Status: Acute Priority: High (2) Chronic kidney disease requiring chronic dialysis Status: Acute (3) Dialysis complication Status: Acute (4) Hyperlipidemia Status: Acute (5) Pulmonary HTN Status: Acute Priority: High (6) Pulmonary edema Status: Acute (7) Tachycardia Status: Acute (8) Dementia Status: Chronic Priority: Medium (9) Hypertension Status: Chronic Priority: High - Assessment and Plan (Free Text) Plan: O2 Via NC Continue current care as MAR Serial trop and EKG TSH Nephrology Consult T Head w/o Contrast. TTE Palliative Care Consult
--- NOTE | 2018-09-28 00:42 | CP.PCM.PN ---
Subjective - Date & Time of Evaluation Date of Evaluation: 09/27/18 Objective - Vital Signs/Intake and Output Vital Signs (last 24 hours): Temp Pulse Resp BP Pulse Ox 97.6 F 120 H 18 143/89 95 09/27/18 20:05 09/27/18 20:05 09/27/18 20:05 09/27/18 20:05 09/27/18 20:05 Intake and Output: 09/27/18 09/28/18 18:59 06:59 Intake Total 860 Balance 860 - Medications Medications: Current Medications Acetaminophen (Tylenol 325mg Tab) 650 mg PO Q4 PRN PRN Reason: Pain, Mild (1-3) Acetaminophen (Tylenol 325mg Tab) 650 mg PO Q4 PRN PRN Reason: Fever >100.4 F Albuterol/Ipratropium (Duoneb 3 Mg/0.5 Mg (3 Ml) Ud) 3 ml INH RQ6 PRN PRN Reason: Wheezing Atorvastatin Calcium (Lipitor) 20 mg PO DAILY [facility] Last Admin: 09/27/18 09:18 Dose: 20 mg Haloperidol Lactate (Haldol) 1 mg IM Q6 PRN PRN Reason: Agitation Last Admin: 09/27/18 20:12 Dose: 1 mg Labetalol HCl (Trandate) 100 mg PO BID [facility] Last Admin: 09/27/18 18:16 Dose: 100 mg Lactobacillus Acidophilus (Bacid Acidophilus) 1 cap PO BID [facility] Last Admin: 09/27/18 18:15 Dose: 1 cap Loperamide HCl (Imodium) 2 mg PO Q6 PRN PRN Reason: Loose stools Memantine (Namenda) 5 mg PO DAILY [facility] Last Admin: 09/27/18 09:18 Dose: 5 mg Mirtazapine (Remeron) 15 mg PO HS [facility] Last Admin: 09/27/18 19:52 Dose: 15 mg Pantoprazole Sodium (Protonix Ec Tab) 40 mg PO DAILY [facility] Last Admin: 09/27/18 09:19 Dose: 40 mg Sevelamer Carbonate (Renvela) 800 mg PO TID [facility] Last Admin: 09/27/18 18:16 Dose: 800 mg - Labs Labs: 09/27/18 10:30 09/27/18 10:30
[2018-09-28] MEDS: Pantoprazole 40 mg EC Tab PO SCH (09:53)
[2018-09-28] MEDS: Lactobacillus Acidophilus 500 MU Cap PO SCH ×2 (09:57→16:54)
--- NOTE | 2018-09-28 10:36 | CP.PCM.CON ---
History of Present Illness - History of Present Illness History of Present Illness: This 78-year-old female was hospitalized after she missed her dialysis appointment and arrived in the hospital hyperkalemic. Review of her chart reveals that there have been multiple instances of this happening in the past. In fact she has had an urgent hospitalization virtually at least once a month for the last couple of years. I had examined her in April 2018. The patient has had chronic atrial flutter fibrillation and this consultation was requested because of a rapid heart rate. The patient has been on hemodialysis for more than 2 years. She has steadfastly declined to undergo coronary angiography to fully evaluate her coronaries. An echocardiogram done in November of last year showed depressed left ventricular systolic function with sclerotic aortic valve and a mild gradient. Physical examination shows an elderly lady who is lying slightly propped up in bed and breathes comfortably at 16 breaths/min. Her telemetry shows atrial flutter with 2-1 conduction and a ventricular rate mostly around 120 bpm. Her jugular venous pressure was mildly elevated and there was no edema over the lower extremities. The pedal pulses were extremely feeble. The extremities were warm and nailbeds were pink. There was no central or peripheral cyanosis. There was a dialysis shunt in the left upper extremity and her blood pressure in the right upper extremity was 140/74 mmHg. The apex was vaguely felt. The first heart sound was distant. There was an ejection systolic murmur in the aortic area with an extremely muffled second heart sound. There was no gallop rhythm and there were no rales. Her electrocardiogram showed atrial flutter with 2-1 conduction with an inverted T wave in V4 V5 and V6. Her labs were noted. Impression: Atrial flutter with 2-1 conduction. End-stage renal disease with c hronic hemodialysis. 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 Poor compliance with hemodialysis. I have increased her dose of beta-blockade so as to slow her heart rate down. Given her poor compliance her long-term prognosis does not appear to be good. Past Patient History - Infectious Disease Hx of Infectious Diseases: None - Tetanus Immunizations Tetanus Immunization: Unknown - Past Medical History & Family History Past Medical History?: Yes - Past Social History Smoking Status: Never Smoked - CARDIAC Hx Atrial Fibrillation: No Hx Cardia Arrhythmia: No Hx Congestive Heart Failure: Yes Hx Hypercholesterolemia: Yes Hx Hypertension: Yes Hx Mitral Valve Prolapse: No Hx Pacemaker: No Hx Peripheral Edema: No - PULMONARY Hx Asthma: No Hx Bronchitis: No Hx Chronic Obstructive Pulmonary Disease (COPD): No Hx Emphysema: No Hx Pneumonia: Yes Hx Pulmonary Embolism: No Hx Sleep Apnea: No - NEUROLOGICAL Hx Alzheimer's Disease: Yes Hx Dementia: Yes Hx Migraine: No Hx Multiple Sclerosis: No Hx Parkinson's Disease: No Hx Seizures: No Hx Transient Ischemic Attacks (TIA): No - HEENT Hx HEENT Problems: No - RENAL Hx Chronic Kidney Disease: Yes (HD --) Hx Kidney Stones: No - ENDOCRINE/METABOLIC Hx Hyperthyroidism: No Hx Hypothyroidism: No - HEMATOLOGICAL/ONCOLOGICAL Hx Anemia: Yes Hx Human Immunodeficiency Virus (HIV): No Hx Sickle Cell Disease: No - INTEGUMENTARY Hx Dermatological Problems: No - MUSCULOSKELETAL/RHEUMATOLOGICAL Hx Arthritis: No Hx Fractures: No Hx Osteoporosis: No Hx Rheumatoid Arthritis: No - GASTROINTESTINAL Hx Crohn's Disease: No Hx Diverticulitis: No Hx Gall Bladder Disease: No Hx Gastritis: No Hx Pancreatitis: No - GENITOURINARY/GYNECOLOGICAL Hx Sexually Transmitted Disorders: No - PSYCHIATRIC Hx Anxiety: Yes Hx Bipolar Disorder: No Hx Depression: No Hx Paranoia: No Hx Post Traumatic Stress Disorder: No Hx Schizophrenia: No - SURGICAL HISTORY Hx Appendectomy: Yes Hx Carotid Endarterectomy: No Hx Cholecystectomy: Yes Hx Coronary Artery Bypass Graft: No Hx Coronary Stent: No Hx Tonsillectomy: Yes - ANESTHESIA Hx Anesthesia: Yes Hx Anesthesia Reactions: No Hx Malignant Hyperthermia: No Meds Allergies/Adverse Reactions: Allergies Allergy/AdvReac Type Severity Reaction Status Date / Time vancomycin AdvReac REDNESS Verified 09/25/18 16:20 - Medications Medications: Current Medications Acetaminophen (Tylenol 325mg Tab) 650 mg PO Q4 PRN PRN Reason: Pain, Mild (1-3) Acetaminophen (Tylenol 325mg Tab) 650 mg PO Q4 PRN PRN Reason: Fever >100.4 F Albuterol/Ipratropium (Duoneb 3 Mg/0.5 Mg (3 Ml) Ud) 3 ml INH RQ6 PRN PRN Reason: Wheezing Atorvastatin Calcium (Lipitor) 20 mg PO DAILY [facility] Last Admin: 09/28/18 09:52 Dose: 20 mg Haloperidol Lactate (Haldol) 1 mg IM Q6 PRN PRN Reason: Agitation Last Admin: 09/27/18 20:12 Dose: 1 mg Labetalol HCl (Trandate) 200 mg PO BID [facility] Lactobacillus Acidophilus (Bacid Acidophilus) 1 cap PO BID [facility] Last Admin: 09/28/18 09:57 Dose: 1 cap Loperamide HCl (Imodium) 2 mg PO Q6 PRN PRN Reason: Loose stools Memantine (Namenda) 5 mg PO DAILY [facility] Last Admin: 09/28/18 09:53 Dose: 5 mg Mirtazapine (Remeron) 15 mg PO HS [facility] Last Admin: 09/27/18 19:52 Dose: 15 mg Pantoprazole Sodium (Protonix Ec Tab) 40 mg PO DAILY [facility] Last Admin: 09/28/18 09:53 Dose: 40 mg Sevelamer Carbonate (Renvela) 800 mg PO TID [facility] Last Admin: 09/28/18 09:53 Dose: 800 mg Results - Vital Signs Recent Vital Signs: Last Vital Signs Temp 97.6 F 09/28/18 07:48 Pulse 122 H 09/28/18 07:48 Resp 18 09/28/18 07:48 BP 116/75 09/28/18 07:48 Pulse Ox 96 09/28/18 07:48 - Labs Result Diagrams: 09/27/18 10:30 09/27/18 10:30 Labs: Laboratory Results - last 24 hr 09/27/18 09/27/18 10:30 10:30 WBC 4.7 L RBC 4.64 Hgb 13.9 Hct 43.8 MCV 94.4 MCH 30.0 MCHC 31.7 L RDW 20.2 H Plt Count 75 L Sodium 136 Potassium 4.5 Chloride 96 L Carbon Dioxide 25 Anion Gap 20 BUN 48 H Creatinine 4.8 H Est GFR ( Amer) 11 Est GFR (Non-Af Amer) 9 Random Glucose 155 H Calcium 8.5
--- NOTE | 2018-09-28 16:07 | CP.PCM.PN ---
Subjective - Date & Time of Evaluation Date of Evaluation: 09/28/18 Time of Evaluation: 16:03 - Subjective Subjective: Nephrology Consultation Note: Assessment: stable A flutte with RVR fluid overload Altered mental status End stage renal disease on hemodialysis via AVF MWF Anemia, Hyperphosphatemia, Secondary hyperparathyroidism, HTN, dementia non compliance with HD aortic stenosis/sclerosis Hyperkalemia Plan: had HD today extra session as ordered. Will plan for dialysis next as MWF. Continue with Nephrovite 1 tab/day. PRBC as needed for anemia. not on STEWART last Hb 13.9 Continue with phos binders BP control with meds as ordered. Glycemic control, Dialysis consistent diet Further work up/management as per primary team Dose meds/antibiotics (if needed) for ESRD status. Avoid fleets enema/magnesium based laxatives. cardiology following consider further work up for AMS Thanks for allowing me to participate in care of your patient. Will follow patient with you. Please call if any Qs Dr Sridhar Day Office: [phone] ROS: unable to obtain. pt is sleepy and mostly non communicative Physical Examination: General Appearance: Comfortable, in no acute respiratory distress, ill appearing Vitals reviewed and noted as below Head; Atraumatic, normocephalic ENT: no ulcers no thrush. Tongue is midline. Oropharynx: no rash or ulcers. Neck; supple no lymphadenopathy, no thyromegaly or bruit Lungs: Normal respiratory rate/effort. Breath sounds bilateral equal and with few basal crackles Heart: Increasedl rate. s1s2 normal. No rub or gallop. Extremities: trace edema. No varicose veins Neurological: Patient is AMS status Skin: Warm and dry. Normal turgor. No rash. Palpitation: Normal elasticity for age Abdomen: Abdomen is soft. Bowel sounds +. There is no abdominal tenderness, no guarding/rigidity or organomegaly Psych: deferred MSK: no joint tenderness or swelling. Digits and nails normal, no deformity : kidney or bladder not palpable Access: AVF Labs/imaging reviewed. Past medical history, past surgical history, family history, social history, allergy reviewed and noted as below Objective - Vital Signs/Intake and Output Vital Signs (last 24 hours): Temp Pulse Resp BP Pulse Ox 98.4 F 126 H 18 127/84 94 L 09/28/18 15:54 09/28/18 15:54 09/28/18 15:54 09/28/18 15:54 09/28/18 15:54 Intake and Output: 09/28/18 09/28/18 06:59 18:59 Intake Total 860 Balance 860 - Medications Medications: Current Medications Acetaminophen (Tylenol 325mg Tab) 650 mg PO Q4 PRN PRN Reason: Pain, Mild (1-3) Acetaminophen (Tylenol 325mg Tab) 650 mg PO Q4 PRN PRN Reason: Fever >100.4 F Albuterol/Ipratropium (Duoneb 3 Mg/0.5 Mg (3 Ml) Ud) 3 ml INH RQ6 PRN PRN Reason: Wheezing Atorvastatin Calcium (Lipitor) 20 mg PO DAILY [facility] Last Admin: 09/28/18 09:52 Dose: 20 mg Haloperidol Lactate (Haldol) 1 mg IM Q6 PRN PRN Reason: Agitation Last Admin: 09/27/18 20:12 Dose: 1 mg Labetalol HCl (Trandate) 200 mg PO BID [facility] Lactobacillus Acidophilus (Bacid Acidophilus) 1 cap PO BID [facility] Last Admin: 09/28/18 09:57 Dose: 1 cap Loperamide HCl (Imodium) 2 mg PO Q6 PRN PRN Reason: Loose stools Memantine (Namenda) 5 mg PO DAILY [facility] Last Admin: 09/28/18 09:53 Dose: 5 mg Mirtazapine (Remeron) 15 mg PO HS [facility] Last Admin: 09/27/18 19:52 Dose: 15 mg Pantoprazole Sodium (Protonix Ec Tab) 40 mg PO DAILY [facility] Last Admin: 09/28/18 09:53 Dose: 40 mg Sevelamer Carbonate (Renvela) 800 mg PO TID [facility] Last Admin: 09/28/18 13:14 Dose: 800 mg - Labs Labs: 09/27/18 10:30 09/27/18 10:30
[2018-09-29] MEDS: Pantoprazole 40 mg EC Tab PO SCH (10:01)
[2018-09-29] MEDS: Multivitamin Vitamin B Complex (Nephro-Vite) Tab PO SCH (10:01)
[2018-09-29] MEDS: Lactobacillus Acidophilus 500 MU Cap PO SCH ×2 (10:03→17:23)
--- NOTE | 2018-09-29 14:01 | CP.PCM.PN ---
Subjective - Date & Time of Evaluation Date of Evaluation: 09/29/18 Time of Evaluation: 14:00 - Subjective Subjective: Nephrology Consultation Note: Assessment: stable A flutte with RVR fluid overload Altered mental status End stage renal disease on hemodialysis via AVF MWF Anemia, Hyperphosphatemia, Secondary hyperparathyroidism, HTN, dementia non compliance with HD aortic stenosis/sclerosis Hyperkalemia Plan: Will plan for dialysis next as MWF. Continue with Nephrovite 1 tab/day. PRBC as needed for anemia. not on STEWART last Hb 13.9 Continue with phos binders BP control with meds as ordered. Glycemic control, Dialysis consistent diet Further work up/management as per primary team Dose meds/antibiotics (if needed) for ESRD status. Avoid fleets enema/magnesium based laxatives. cardiology following consider further work up for AMS A flutter rate control Thanks for allowing me to participate in care of your patient. Will follow patient with you. Please call if any Qs Dr Sridhar Day Office: [phone] ROS: unable to obtain much. pt is more communicative. denies Cp/sob Physical Examination: General Appearance: Comfortable, in no acute respiratory distress, ill appearing Vitals reviewed and noted as below Head; Atraumatic, normocephalic ENT: no ulcers no thrush. Tongue is midline. Oropharynx: no rash or ulcers. Neck; supple no lymphadenopathy, no thyromegaly or bruit Lungs: Normal respiratory rate/effort. Breath sounds bilateral equal and with few basal crackles Heart: Increased rate. s1s2 normal. No rub or gallop. Extremities: trace edema. No varicose veins Neurological: Patient is still AMS status but more awake and follow commands Skin: Warm and dry. Normal turgor. No rash. Palpitation: Normal elasticity for age Abdomen: Abdomen is soft. Bowel sounds +. There is no abdominal tenderness, no guarding/rigidity or organomegaly Psych: deferred MSK: no joint tenderness or swelling. Digits and nails normal, no deformity : kidney or bladder not palpable Access: AVF Labs/imaging reviewed. Past medical history, past surgical history, family history, social history, allergy reviewed and noted as below Objective - Vital Signs/Intake and Output Vital Signs (last 24 hours): Temp Pulse Resp BP Pulse Ox 97.5 F L 123 H 18 145/87 100 09/29/18 11:51 09/29/18 11:51 09/29/18 11:51 09/29/18 11:51 09/29/18 11:51 - Medications Medications: Current Medications Acetaminophen (Tylenol 325mg Tab) 650 mg PO Q4 PRN PRN Reason: Pain, Mild (1-3) Acetaminophen (Tylenol 325mg Tab) 650 mg PO Q4 PRN PRN Reason: Fever >100.4 F Albuterol/Ipratropium (Duoneb 3 Mg/0.5 Mg (3 Ml) Ud) 3 ml INH RQ6 PRN PRN Reason: Wheezing Atorvastatin Calcium (Lipitor) 20 mg PO DAILY [facility] Last Admin: 09/29/18 10:00 Dose: 20 mg Haloperidol Lactate (Haldol) 1 mg IM Q6 PRN PRN Reason: Agitation Last Admin: 09/28/18 22:01 Dose: 1 mg Labetalol HCl (Trandate) 200 mg PO BID [facility] Last Admin: 09/29/18 10:02 Dose: 200 mg Lactobacillus Acidophilus (Bacid Acidophilus) 1 cap PO BID [facility] Last Admin: 09/29/18 10:03 Dose: 1 cap Loperamide HCl (Imodium) 2 mg PO Q6 PRN PRN Reason: Loose stools Memantine (Namenda) 5 mg PO DAILY [facility] Last Admin: 09/29/18 10:00 Dose: 5 mg Mirtazapine (Remeron) 15 mg PO HS [facility] Last Admin: 09/28/18 21:28 Dose: 15 mg Pantoprazole Sodium (Protonix Ec Tab) 40 mg PO DAILY [facility] Last Admin: 09/29/18 10:01 Dose: 40 mg Sevelamer Carbonate (Renvela) 800 mg PO TID [facility] Last Admin: 09/29/18 13:57 Dose: 800 mg Vitamin B Complex/Vit C/Folic Acid (Nephro-Valentino) 1 tab PO DAILY [facility] Last Admin: 09/29/18 10:01 Dose: 1 tab - Labs Labs: 09/27/18 10:30 09/27/18 10:30
--- NOTE | 2018-09-29 14:16 | CT ---
Date of service: 09/29/2018 PROCEDURE: CT Chest without contrast HISTORY: pleural effusion COMPARISON: Chest x-ray 09/25/2018, CT chest 03/21/2018 TECHNIQUE: Contiguous axial images were obtained through the chest without intravenous contrast enhancement. Sagittal and coronal reconstructions were performed. Radiation dose: Total exam DLP = 429.97 mGy-cm. This CT exam was performed using one or more of the following dose reduction techniques: Automated exposure control, adjustment of the mA and/or kV according to patient size, and/or use of iterative reconstruction technique. FINDINGS: LUNGS: There is evidence of compressive atelectasis involving large portions of the right lung secondary to a moderate size right pleural effusion. Mild subsegmental atelectasis is seen in the left lung base as well as some mild curvilinear probable chronic rounded atelectasis. Decreased left effusion is seen. Mild linear scarring is seen in the inferior lingula, slightly more prominent than on prior study. Pleural fluid may be obscuring previously identified right lung pulmonary nodule although a small nodule is seen on images 43 and 44 series 3. This may reflect previously noted nodule and is unchanged. No new nodules are seen elsewhere. MEDIASTINUM: Limited by the lack of contrast. Small shotty mediastinal lymph nodes are suspected. Heart is moderately enlarged without pericardial effusion. Pulmonary arteries are moderately prominent suggesting pulmonary artery hypertension. Visualized esophagus is limited but probably unchanged. There is moderate atherosclerotic change of the aorta without significant aneurysmal dilatation. PLEURA: Large right pleural effusion with compressive atelectasis is noted. Mild decrease in left pleural effusion from prior exam. BONES: Moderate degenerative changes are seen in the spine without compression fracture. UPPER ABDOMEN: Images of the upper abdomen are limited. There appears to be some probable moderate chronic debris within the stomach. OTHER FINDINGS: None. IMPRESSION: Large right pleural effusion with compressive atelectasis. Mild decrease in left pleural effusion. Pulmonary arterial hypertension. Chronic moderate cardiomegaly. Mild interstitial prominence which may suggest a mild amount of vascular congestion. Probable stable right lung nodule.
[2018-09-30 09:47] LABS: ABG ALLEN TEST YES; ARTERIAL BLOOD GAS HCO3 25.3 mmol/L (21-28); ARTERIAL BLOOD GAS HEMOGLOBIN 15.5 g/dL (11.7-17.4); ARTERIAL BLOOD GAS O2 CAPACITY 21.2 mL/dL (16-24); ARTERIAL BLOOD GAS O2 CONTENT 20.2 ML/dL (15-23); ARTERIAL BLOOD GAS O2 SAT 95.5 % (95-98); ARTERIAL BLOOD GAS PCO2 46 mm/Hg (35-45); ARTERIAL BLOOD GAS PH 7.37 (7.35-7.45); ARTERIAL BLOOD GAS PO2 75 mm/Hg (80-100)
--- NOTE | 2018-09-30 10:10 | CP.PCM.PN ---
Subjective - Date & Time of Evaluation Date of Evaluation: 09/30/18 Time of Evaluation: 10:05 - Subjective Subjective: The patient was found resting comfortably in bed. The patient indicates again that she is reluctant to have her dialysis today, because she does not feel well. The telemetry continues to display atrial flutter with 2-1 AV conduction and a heart rate of 120 bpm. Her blood pressure was 110/70 mmHg. I have further increased her dose of labetalol in order to create a higher AV block. Objective - Vital Signs/Intake and Output Vital Signs (last 24 hours): Temp Pulse Resp BP Pulse Ox 97 F L 116 H 20 107/75 99 09/30/18 08:51 09/30/18 08:51 09/30/18 08:51 09/30/18 08:51 09/30/18 08:51 - Medications Medications: Current Medications Acetaminophen (Tylenol 325mg Tab) 650 mg PO Q4 PRN PRN Reason: Pain, Mild (1-3) Acetaminophen (Tylenol 325mg Tab) 650 mg PO Q4 PRN PRN Reason: Fever >100.4 F Albuterol/Ipratropium (Duoneb 3 Mg/0.5 Mg (3 Ml) Ud) 3 ml INH RQ6 PRN PRN Reason: Wheezing Atorvastatin Calcium (Lipitor) 20 mg PO DAILY [facility] Last Admin: 09/29/18 10:00 Dose: 20 mg Haloperidol Lactate (Haldol) 1 mg IM Q6 PRN PRN Reason: Agitation Last Admin: 09/28/18 22:01 Dose: 1 mg Labetalol HCl (Trandate) 200 mg PO BID [facility] Last Admin: 09/29/18 17:20 Dose: 200 mg Lactobacillus Acidophilus (Bacid Acidophilus) 1 cap PO BID [facility] Last Admin: 09/29/18 17:23 Dose: 1 cap Loperamide HCl (Imodium) 2 mg PO Q6 PRN PRN Reason: Loose stools Memantine (Namenda) 5 mg PO DAILY [facility] Last Admin: 09/29/18 10:00 Dose: 5 mg Mirtazapine (Remeron) 15 mg PO HS [facility] Last Admin: 09/29/18 21:17 Dose: Not Given Pantoprazole Sodium (Protonix Ec Tab) 40 mg PO DAILY [facility] Last Admin: 09/29/18 10:01 Dose: 40 mg Sevelamer Carbonate (Renvela) 800 mg PO TID [facility] Last Admin: 09/29/18 17:21 Dose: 800 mg Vitamin B Complex/Vit C/Folic Acid (Nephro-Valentino) 1 tab PO DAILY [facility] Last Admin: 09/29/18 10:01 Dose: 1 tab - Labs Labs: 09/27/18 10:30 09/27/18 10:30
--- NOTE | 2018-09-30 11:12 | CP.PCM.PN ---
Subjective - Date & Time of Evaluation Date of Evaluation: 09/30/18 Time of Evaluation: 11:12 - Subjective Subjective: Dialysis note She was seen on hemodialysis I discussed the order with the dialysis nurse at the bedside Ultrafiltration only 1000 cc today due to decrease bilateral edema significantly Patient seems to tolerate Vital signs stable Objective - Vital Signs/Intake and Output Vital Signs (last 24 hours): Temp Pulse Resp BP Pulse Ox 97 F L 116 H 20 107/75 99 09/30/18 08:51 09/30/18 08:51 09/30/18 08:51 09/30/18 08:51 09/30/18 08:51 - Medications Medications: Current Medications Acetaminophen (Tylenol 325mg Tab) 650 mg PO Q4 PRN PRN Reason: Pain, Mild (1-3) Acetaminophen (Tylenol 325mg Tab) 650 mg PO Q4 PRN PRN Reason: Fever >100.4 F Albuterol/Ipratropium (Duoneb 3 Mg/0.5 Mg (3 Ml) Ud) 3 ml INH RQ6 PRN PRN Reason: Wheezing Atorvastatin Calcium (Lipitor) 20 mg PO DAILY [facility] Last Admin: 09/29/18 10:00 Dose: 20 mg Haloperidol Lactate (Haldol) 1 mg IM Q6 PRN PRN Reason: Agitation Last Admin: 09/28/18 22:01 Dose: 1 mg Labetalol HCl (Trandate) 300 mg PO BID [facility] Lactobacillus Acidophilus (Bacid Acidophilus) 1 cap PO BID [facility] Last Admin: 09/29/18 17:23 Dose: 1 cap Loperamide HCl (Imodium) 2 mg PO Q6 PRN PRN Reason: Loose stools Memantine (Namenda) 5 mg PO DAILY [facility] Last Admin: 09/29/18 10:00 Dose: 5 mg Mirtazapine (Remeron) 15 mg PO HS [facility] Last Admin: 09/29/18 21:17 Dose: Not Given Pantoprazole Sodium (Protonix Ec Tab) 40 mg PO DAILY [facility] Last Admin: 09/29/18 10:01 Dose: 40 mg Sevelamer Carbonate (Renvela) 800 mg PO TID [facility] Last Admin: 09/29/18 17:21 Dose: 800 mg Vitamin B Complex/Vit C/Folic Acid (Nephro-Valentino) 1 tab PO DAILY [facility] Last Admin: 03/17/19 10:01 Dose: 1 tab - Labs Labs: 09/27/18 10:30 09/27/18 10:30 - Constitutional Appears: No Acute Distress - Eye Exam Eye Exam: Conjunctival injection - ENT Exam ENT Exam: Mucous Membranes Moist - Neck Exam Neck Exam: absent: Lymphadenopathy - Respiratory Exam Respiratory Exam: NORMAL BREATHING PATTERN. absent: Chest Wall Tenderness - GI/Abdominal Exam GI & Abdominal Exam: Soft - Extremities Exam Extremities Exam: absent: Calf Tenderness - Back Exam Back Exam: absent: CVA tenderness (L), CVA tenderness (R) - Neurological Exam Neurological Exam: Altered - Psychiatric Exam Psychiatric exam: Agitated - Skin Skin Exam: absent: Cyanosis Assessment and Plan (1) Chronic kidney disease with end stage renal failure on dialysis Assessment & Plan: End stage renal disease on hemodialysis via AVF MWF A flutte with RVR fluid overload Altered mental status Anemia, Hyperphosphatemia, Secondary hyperparathyroidism, HTN, dementia non compliance with HD aortic stenosis/sclerosis Hyperkalemia Bilateral leg edema with pleural effusion on x-ray Plan: She was seen on hemodialysis and tolerating well. Bilateral leg edema almost resolved And vital sign appears to be stable. I discussed the dialysis order with the dialysis nurse at the bedside. Will plan for dialysis next as MWF. Continue with Nephrovite 1 tab/day. PRBC as needed for anemia. not on STEWART last Hb 13.9 Continue with phos binders BP control with meds as ordered. Glycemic control, Dialysis consistent diet Further work up/management as per primary team Dose meds/antibiotics (if needed) for ESRD status. Avoid fleets enema/magnesium based laxatives. Status: Acute (2) Hyperkalemia Status: Acute (3) Abnormal liver enzymes Status: Acute
--- NOTE | 2018-09-30 11:29 | CT ---
Date of service: 09/30/2018 PROCEDURE: CT HEAD WITHOUT CONTRAST. HISTORY: ams ;lethargy COMPARISON: 09/19/2018. TECHNIQUE: Axial computed tomography images were obtained through the head/brain without intravenous contrast. Radiation dose: Total exam DLP = 0.0 mGy-cm. This CT exam was performed using one or more of the following dose reduction techniques: Automated exposure control, adjustment of the mA and/or kV according to patient size, and/or use of iterative reconstruction technique. FINDINGS: HEMORRHAGE: No intracranial hemorrhage. BRAIN: There are moderate chronic microangiopathic changes. There is no mass, mass effect or abnormal extra-axial fluid collection. There is no territorial infarction. The midline sagittal structures are normal. VENTRICLES: There is mild age-related global parenchymal volume loss and proportionate enlargement of the ventricles and cortical sulci. CALVARIUM: There is no calvarial fracture or extracranial soft tissue swelling. PARANASAL SINUSES: Predominantly clear. MASTOID AIR CELLS: Predominantly clear. OTHER FINDINGS: None. IMPRESSION: No acute intracranial abnormality. Moderate chronic microangiopathic changes and mild age-related global parenchymal volume loss.
--- NOTE | 2018-09-30 12:05 | CP.PCM.PCO ---
Assessment and Plan - Assessment and Plan (Free Text) Assessment: Patient seen and examined this morning, still remains with Altered Mental status through the weekend. Vital signs remain stable, Patient with no shortness of breath, chest pain, nausea or vomiting. Plan discussed with Dr. Martines Patient's family discussed code status with Dr Martines. Patient is now DNR/ DNI Palliative care consult placed for goals of care. CT scan head ordered for today to r/o acute changes. Patient for HD today Will continue to monitor patient.
--- NOTE | 2018-09-30 14:03 | CP.PCM.CON ---
History of Present Illness - History of Present Illness History of Present Illness: Palliative care consult requested by Dr. Martines for Goals of Care Discussion Patient is a 78 year old female from home. She came to the ED , sent by the Dialysis center for Elevated HR. In ED patient had mild dyspnea. She has a his tory of multiple hospitalizations at least one admission per month. Patient is non compliant with dialysis treatment. Patient has dementia and is not a good historian. Patient admitted for rate control and Dialysis treatment. PMH: Alzheimers, Anemia, Anxiety, CHF, Dementia, HTN, ESRD, CKD, Afib Soc Hx: Denies smoking or alcohol abuse Fam hx: HTN Chest CT- Large R pleural effusion with compressive atelectasis Head CT- No acute intracranial abnormality Review of Systems - Review of Systems Review of Systems: ROS, unable to obtain from patient due to altered mental status Past Patient History - Infectious Disease Hx of Infectious Diseases: None - Tetanus Immunizations Tetanus Immunization: Unknown - Past Medical History & Family History Past Medical History?: Yes - Past Social History Smoking Status: Never Smoked - CARDIAC Hx Atrial Fibrillation: No Hx Cardia Arrhythmia: No Hx Congestive Heart Failure: Yes Hx Hypercholesterolemia: Yes Hx Hypertension: Yes Hx Mitral Valve Prolapse: No Hx Pacemaker: No Hx Peripheral Edema: No - PULMONARY Hx Asthma: No Hx Bronchitis: No Hx Chronic Obstructive Pulmonary Disease (COPD): No Hx Emphysema: No Hx Pneumonia: Yes Hx Pulmonary Embolism: No Hx Sleep Apnea: No - NEUROLOGICAL Hx Alzheimer's Disease: Yes Hx Dementia: Yes Hx Migraine: No Hx Multiple Sclerosis: No Hx Parkinson's Disease: No Hx Seizures: No Hx Transient Ischemic Attacks (TIA): No - HEENT Hx HEENT Problems: No - RENAL Hx Chronic Kidney Disease: Yes (HD -W-) Hx Kidney Stones: No - ENDOCRINE/METABOLIC Hx Hyperthyroidism: No Hx Hypothyroidism: No - HEMATOLOGICAL/ONCOLOGICAL Hx Anemia: Yes Hx Human Immunodeficiency Virus (HIV): No Hx Sickle Cell Disease: No - INTEGUMENTARY Hx Dermatological Problems: No - MUSCULOSKELETAL/RHEUMATOLOGICAL Hx Arthritis: No Hx Fractures: No Hx Osteoporosis: No Hx Rheumatoid Arthritis: No - GASTROINTESTINAL Hx Crohn's Disease: No Hx Diverticulitis: No Hx Gall Bladder Disease: No Hx Gastritis: No Hx Pancreatitis: No - GENITOURINARY/GYNECOLOGICAL Hx Sexually Transmitted Disorders: No - PSYCHIATRIC Hx Anxiety: Yes Hx Bipolar Disorder: No Hx Depression: No Hx Paranoia: No Hx Post Traumatic Stress Disorder: No Hx Schizophrenia: No - SURGICAL HISTORY Hx Appendectomy: Yes Hx Carotid Endarterectomy: No Hx Cholecystectomy: Yes Hx Coronary Artery Bypass Graft: No Hx Coronary Stent: No Hx Tonsillectomy: Yes - ANESTHESIA Hx Anesthesia: Yes Hx Anesthesia Reactions: No Hx Malignant Hyperthermia: No Meds Allergies/Adverse Reactions: Allergies Allergy/AdvReac Type Severity Reaction Status Date / Time vancomycin AdvReac REDNESS Verified 09/25/18 16:20 - Medications Medications: Current Medications Acetaminophen (Tylenol 325mg Tab) 650 mg PO Q4 PRN PRN Reason: Pain, Mild (1-3) Acetaminophen (Tylenol 325mg Tab) 650 mg PO Q4 PRN PRN Reason: Fever >100.4 F Albuterol/Ipratropium (Duoneb 3 Mg/0.5 Mg (3 Ml) Ud) 3 ml INH RQ6 PRN PRN Reason: Wheezing Atorvastatin Calcium (Lipitor) 20 mg PO DAILY ON [facility] OF [facility] Last Admin: 09/29/18 10:00 Dose: 20 mg Haloperidol Lactate (Haldol) 1 mg IM Q6 PRN PRN Reason: Agitation Last Admin: 09/28/18 22:01 Dose: 1 mg Labetalol HCl (Trandate) 300 mg PO BID ON [facility] Lactobacillus Acidophilus (Bacid Acidophilus) 1 cap PO BID ON [facility] OF [facility] Last Admin: 09/29/18 17:23 Dose: 1 cap Loperamide HCl (Imodium) 2 mg PO Q6 PRN PRN Reason: Loose stools Memantine (Namenda) 5 mg PO DAILY ON [facility] OF [facility] Last Admin: 09/29/18 10:00 Dose: 5 mg Mirtazapine (Remeron) 15 mg PO [facility] Last Admin: 09/29/18 21:17 Dose: Not Given Pantoprazole Sodium (Protonix Ec Tab) 40 mg PO DAILY ON [facility] OF [facility] Last Admin: 09/29/18 10:01 Dose: 40 mg Sevelamer Carbonate (Renvela) 800 mg PO TID ON LICENSE OF [facility] Last Admin: 09/29/18 17:21 Dose: 800 mg Vitamin B Complex/Vit C/Folic Acid (Nephro-Valentino) 1 tab PO DAILY ON LICENSE OF [facility] Last Admin: 09/29/18 10:01 Dose: 1 tab Physical Exam - Constitutional Appears: No Acute Distress, Chronically Ill - Head Exam Head Exam: ATRAUMATIC, NORMAL INSPECTION, NORMOCEPHALIC - Eye Exam Eye Exam: Normal appearance, PERRL - ENT Exam ENT Exam: Mucous Membranes Moist - Respiratory Exam Respiratory Exam: Decreased Breath Sounds - Cardiovascular Exam Cardiovascular Exam: Tachycardia - GI/Abdominal Exam GI & Abdominal Exam: Normal Bowel Sounds - Rectal Exam Rectal Exam: Deferred - Extremities Exam Extremities exam: Positive for: pedal pulses present - Neurological Exam Neurological exam: Alert, Altered - Psychiatric Exam Psychiatric exam: Flat Affect - Skin Skin Exam: Dry, Pallor, Warm Results - Vital Signs Recent Vital Signs: Last Vital Signs Temp 97.0 F L 09/30/18 12:41 Pulse 118 H 09/30/18 12:41 Resp 20 09/30/18 12:41 BP 110/67 09/30/18 12:41 Pulse Ox 93 L 09/30/18 12:41 - Labs Result Diagrams: 09/27/18 10:30 09/27/18 10:30 Labs: Laboratory Results - last 24 hr 09/30/18 09/30/18 09:42 12:20 pCO2 46 H pO2 75 L HCO3 25.3 ABG pH 7.37 ABG Total CO2 28.0 ABG O2 Saturation 95.5 ABG O2 Content 20.2 ABG Base Excess 0.7 ABG Hemoglobin 15.5 ABG Carboxyhemoglobin 1.9 H POC ABG HHb (Measured) 4.4 ABG Methemoglobin 1.2 ABG O2 Capacity 21.2 Nacho Test Yes A-a O2 Difference 17.0 Hgb O2 Saturation 92.5 L FiO2 21.0 Ammonia 55 H Assessment & Plan - Assessment and Plan (Free Text) Assessment: DNR/DNI, there is no advanced directive in the cart. Palliative Performance Scale 30% I reviewed medical records, diagnostic studies, examined patient in bed, and interviewed patients daughter via telephone. Patient states that she currently has no pain and is just feeling a bit weak. When asked about why she is non compliant with dialysis patient states " because I've been stupid, I didn't know it was important". Patient overall is a poor his jackie and is confused. Goals of Care: Discussed with daughter Dionna. She states that she and her brother Dung are the decision makers for their mom. She expressed that she wants limited treatment for her mom. She does not want any major interventions such as surgeries from this point on. She is ok with the use of iv fluids, antibiotics, and other medications. She stated that she feels like her mom no longer wants dialysis and is frustrated with the process of going to dialysis during the week. Patients daughter also inquired about possibly terminating dialysis in the future if her mom no longer wants to go. As of now patient should continue with dialysis. The risks associated with terminating dialysis were discussed at length and daughter Dionna verbalized understanding. She will sign POLST form this afternoon when she visits the patient. Code status: Patient is currently DNR/DNI. The meaning of both were discussed with daughter Dionna. She verbalized understanding and confirmed that those are her and her brothers wishes for their mom. Patient has DNR/DNI order and bracelet on arm. This information will also be reflected in POLST form that daughter Dionna will sign. Impression * Alzheimers * Cognitive Decline * Non compliant with treatment plan * Decreased mobility Suggestion * Use supportive communication, ask short questions and allow for additional response time * Redirect and reorient as needed * Assist with ADLs and help with repositioning * Agree with DNR/DNI Palliative Care will remain on board as needed and can be reached at ext [phone] or [phone] Advanced Care Planning 1hour
[2018-09-30] MEDS: Lactobacillus Acidophilus 500 MU Cap PO SCH ×2 (16:55)
[2018-09-30] MEDS: Multivitamin Vitamin B Complex (Nephro-Vite) Tab PO SCH (16:59)
[2018-09-30] MEDS: Pantoprazole 40 mg EC Tab PO SCH (16:59)
--- NOTE | 2018-10-01 09:42 | CP.PCM.PN ---
Subjective - Date & Time of Evaluation Date of Evaluation: 10/01/18 Time of Evaluation: 09:33 - Subjective Subjective: Nephrology Consultation Note: Assessment: stable A flutter with RVR fluid overload Altered mental status End stage renal disease on hemodialysis via AVF MWF Anemia, Hyperphosphatemia, Secondary hyperparathyroidism, HTN, dementia non compliance with HD aortic stenosis/sclerosis Hyperkalemia Plan: HD MWF. Continue with Nephrovite 1 tab/day. no need for STEWART Continue with phos binders BP control with meds as ordered. Glycemic control, Dialysis consistent diet Further work up/management as per primary team Dose meds/antibiotics (if needed) for ESRD status. Avoid fleets enema/magnesium based laxatives. cardiology following s: seen and examined Physical Examination: General Appearance: Comfortable, in no acute respiratory distress, ill appearing Vitals reviewed and noted as below Head; Atraumatic, normocephalic ENT: no ulcers no thrush. Tongue is midline. Oropharynx: no rash or ulcers. Neck; supple no lymphadenopathy, no thyromegaly or bruit Lungs: Normal respiratory rate/effort. Breath sounds bilateral equal Heart: Increased rate. s1s2 normal. No rub or gallop. Extremities: trace edema. No varicose veins Neurological: Patient is still AMS status but more awake and follow commands Skin: Warm and dry. Normal turgor. No rash. Palpitation: Normal elasticity for age Abdomen: Abdomen is soft. Bowel sounds +. There is no abdominal tenderness, no guarding/rigidity or organomegaly Psych: deferred MSK: no joint tenderness or swelling. Digits and nails normal, no deformity : kidney or bladder not palpable Access: AVF Labs/imaging reviewed. Past medical history, past surgical history, family history, social history, allergy reviewed and noted as below Objective - Vital Signs/Intake and Output Vital Signs (last 24 hours): Temp Pulse Resp BP Pulse Ox 97.5 F L 117 H 20 101/63 96 10/01/18 08:58 10/01/18 08:58 10/01/18 08:58 10/01/18 08:58 10/01/18 08:58 - Medications Medications: Current Medications Acetaminophen (Tylenol 325mg Tab) 650 mg PO Q4 PRN PRN Reason: Pain, Mild (1-3) Last Admin: 10/01/18 04:28 Dose: 650 mg Acetaminophen (Tylenol 325mg Tab) 650 mg PO Q4 PRN PRN Reason: Fever >100.4 F Albuterol/Ipratropium (Duoneb 3 Mg/0.5 Mg (3 Ml) Ud) 3 ml INH RQ6 PRN PRN Reason: Wheezing Atorvastatin Calcium (Lipitor) 20 mg PO DAILY [facility] Last Admin: 09/30/18 09:56 Dose: 20 mg Haloperidol Lactate (Haldol) 1 mg IM Q6 PRN PRN Reason: Agitation Last Admin: 09/28/18 22:01 Dose: 1 mg Labetalol HCl (Trandate) 300 mg PO BID [facility] Last Admin: 09/30/18 17:02 Dose: Not Given Lactobacillus Acidophilus (Bacid Acidophilus) 1 cap PO BID [facility] Last Admin: 09/30/18 16:55 Dose: 1 cap Loperamide HCl (Imodium) 2 mg PO Q6 PRN PRN Reason: Loose stools Memantine (Namenda) 5 mg PO DAILY [facility] Last Admin: 09/30/18 16:57 Dose: 5 mg Mirtazapine (Remeron) 15 mg PO HS [facility] Last Admin: 09/30/18 22:44 Dose: 15 mg Pantoprazole Sodium (Protonix Ec Tab) 40 mg PO DAILY [facility] Last Admin: 09/30/18 16:59 Dose: 40 mg Sevelamer Carbonate (Renvela) 800 mg PO TID [facility] Last Admin: 09/30/18 17:01 Dose: 800 mg Vitamin B Complex/Vit C/Folic Acid (Nephro-Valentino) 1 tab PO DAILY [facility] Last Admin: 09/30/18 16:59 Dose: 1 tab - Labs Labs: 09/27/18 10:30 09/27/18 10:30
[2018-10-01] MEDS: Pantoprazole 40 mg EC Tab PO SCH (11:07)
[2018-10-01] MEDS: Multivitamin Vitamin B Complex (Nephro-Vite) Tab PO SCH (11:07)
[2018-10-01] MEDS: Lactobacillus Acidophilus 500 MU Cap PO SCH ×2 (11:09→17:04)
--- NOTE | 2018-10-01 11:38 | CP.PCM.PN ---
Subjective - Date & Time of Evaluation Date of Evaluation: 09/28/18 Objective - Vital Signs/Intake and Output Vital Signs (last 24 hours): Temp Pulse Resp BP Pulse Ox 97.5 F L 117 H 20 101/63 96 10/01/18 08:58 10/01/18 08:58 10/01/18 08:58 10/01/18 08:58 10/01/18 08:58 - Medications Medications: Current Medications Acetaminophen (Tylenol 325mg Tab) 650 mg PO Q4 PRN PRN Reason: Pain, Mild (1-3) Last Admin: 10/01/18 04:28 Dose: 650 mg Acetaminophen (Tylenol 325mg Tab) 650 mg PO Q4 PRN PRN Reason: Fever >100.4 F Albuterol/Ipratropium (Duoneb 3 Mg/0.5 Mg (3 Ml) Ud) 3 ml INH RQ6 PRN PRN Reason: Wheezing Atorvastatin Calcium (Lipitor) 20 mg PO DAILY [facility] Last Admin: 10/01/18 11:06 Dose: 20 mg Haloperidol Lactate (Haldol) 1 mg IM Q6 PRN PRN Reason: Agitation Last Admin: 09/28/18 22:01 Dose: 1 mg Labetalol HCl (Trandate) 300 mg PO BID [facility] Last Admin: 10/01/18 11:09 Dose: 300 mg Lactobacillus Acidophilus (Bacid Acidophilus) 1 cap PO BID [facility] Last Admin: 10/01/18 11:09 Dose: 1 cap Loperamide HCl (Imodium) 2 mg PO Q6 PRN PRN Reason: Loose stools Memantine (Namenda) 5 mg PO DAILY [facility] Last Admin: 10/01/18 11:06 Dose: 5 mg Mirtazapine (Remeron) 15 mg PO HS [facility] Last Admin: 09/30/18 22:44 Dose: 15 mg Pantoprazole Sodium (Protonix Ec Tab) 40 mg PO DAILY [facility] Last Admin: 10/01/18 11:07 Dose: 40 mg Sevelamer Carbonate (Renvela) 800 mg PO TID [facility] Last Admin: 10/01/18 11:08 Dose: 800 mg Vitamin B Complex/Vit C/Folic Acid (Nephro-Valentino) 1 tab PO DAILY [facility] Last Admin: 10/01/18 11:07 Dose: 1 tab - Labs Labs: 09/27/18 10:30 09/27/18 10:30
--- NOTE | 2018-10-01 11:39 | CP.PCM.PN ---
Subjective - Date & Time of Evaluation Date of Evaluation: 09/30/18 Objective - Vital Signs/Intake and Output Vital Signs (last 24 hours): Temp Pulse Resp BP Pulse Ox 97.5 F L 117 H 20 101/63 96 10/01/18 08:58 10/01/18 08:58 10/01/18 08:58 10/01/18 08:58 10/01/18 08:58 - Medications Medications: Current Medications Acetaminophen (Tylenol 325mg Tab) 650 mg PO Q4 PRN PRN Reason: Pain, Mild (1-3) Last Admin: 10/01/18 04:28 Dose: 650 mg Acetaminophen (Tylenol 325mg Tab) 650 mg PO Q4 PRN PRN Reason: Fever >100.4 F Albuterol/Ipratropium (Duoneb 3 Mg/0.5 Mg (3 Ml) Ud) 3 ml INH RQ6 PRN PRN Reason: Wheezing Atorvastatin Calcium (Lipitor) 20 mg PO DAILY [facility] Last Admin: 10/01/18 11:06 Dose: 20 mg Haloperidol Lactate (Haldol) 1 mg IM Q6 PRN PRN Reason: Agitation Last Admin: 09/28/18 22:01 Dose: 1 mg Labetalol HCl (Trandate) 300 mg PO BID [facility] Last Admin: 10/01/18 11:09 Dose: 300 mg Lactobacillus Acidophilus (Bacid Acidophilus) 1 cap PO BID [facility] Last Admin: 10/01/18 11:09 Dose: 1 cap Loperamide HCl (Imodium) 2 mg PO Q6 PRN PRN Reason: Loose stools Memantine (Namenda) 5 mg PO DAILY [facility] Last Admin: 10/01/18 11:06 Dose: 5 mg Mirtazapine (Remeron) 15 mg PO HS [facility] Last Admin: 09/30/18 22:44 Dose: 15 mg Pantoprazole Sodium (Protonix Ec Tab) 40 mg PO DAILY [facility] Last Admin: 10/01/18 11:07 Dose: 40 mg Sevelamer Carbonate (Renvela) 800 mg PO TID [facility] Last Admin: 10/01/18 11:08 Dose: 800 mg Vitamin B Complex/Vit C/Folic Acid (Nephro-Valentino) 1 tab PO DAILY [facility] Last Admin: 10/01/18 11:07 Dose: 1 tab - Labs Labs: 09/27/18 10:30 09/27/18 10:30
--- NOTE | 2018-10-01 11:49 | CP.PCM.PN ---
Subjective - Date & Time of Evaluation Date of Evaluation: 09/30/18 Objective - Vital Signs/Intake and Output Vital Signs (last 24 hours): Temp Pulse Resp BP Pulse Ox 97.5 F L 117 H 20 101/63 96 10/01/18 08:58 10/01/18 08:58 10/01/18 08:58 10/01/18 08:58 10/01/18 08:58 - Medications Medications: Current Medications Acetaminophen (Tylenol 325mg Tab) 650 mg PO Q4 PRN PRN Reason: Pain, Mild (1-3) Last Admin: 10/01/18 04:28 Dose: 650 mg Acetaminophen (Tylenol 325mg Tab) 650 mg PO Q4 PRN PRN Reason: Fever >100.4 F Albuterol/Ipratropium (Duoneb 3 Mg/0.5 Mg (3 Ml) Ud) 3 ml INH RQ6 PRN PRN Reason: Wheezing Atorvastatin Calcium (Lipitor) 20 mg PO DAILY [facility] Last Admin: 10/01/18 11:06 Dose: 20 mg Haloperidol Lactate (Haldol) 1 mg IM Q6 PRN PRN Reason: Agitation Last Admin: 09/28/18 22:01 Dose: 1 mg Labetalol HCl (Trandate) 300 mg PO BID [facility] Last Admin: 10/01/18 11:09 Dose: 300 mg Lactobacillus Acidophilus (Bacid Acidophilus) 1 cap PO BID [facility] Last Admin: 10/01/18 11:09 Dose: 1 cap Loperamide HCl (Imodium) 2 mg PO Q6 PRN PRN Reason: Loose stools Memantine (Namenda) 5 mg PO DAILY [facility] Last Admin: 10/01/18 11:06 Dose: 5 mg Mirtazapine (Remeron) 15 mg PO HS [facility] Last Admin: 09/30/18 22:44 Dose: 15 mg Pantoprazole Sodium (Protonix Ec Tab) 40 mg PO DAILY [facility] Last Admin: 10/01/18 11:07 Dose: 40 mg Sevelamer Carbonate (Renvela) 800 mg PO TID [facility] Last Admin: 10/01/18 11:08 Dose: 800 mg Vitamin B Complex/Vit C/Folic Acid (Nephro-Valentino) 1 tab PO DAILY [facility] Last Admin: 10/01/18 11:07 Dose: 1 tab - Labs Labs: 09/27/18 10:30 09/27/18 10:30
--- NOTE | 2018-10-02 00:03 | CP.PCM.PN ---
Subjective - Date & Time of Evaluation Date of Evaluation: 10/01/18 Time of Evaluation: 21:45 - Subjective Subjective: Seen and examined at the bed side. Her son and daughter in law at the bed side. Family requesting Hospice care, and Hospice care Consulted. Objective - Vital Signs/Intake and Output Vital Signs (last 24 hours): Temp Pulse Resp BP Pulse Ox 97.2 F L 116 H 18 98/64 L 94 L 10/01/18 20:38 10/01/18 20:38 10/01/18 20:38 10/01/18 20:38 10/01/18 20:38 Intake and Output: 10/01/18 10/02/18 18:59 06:59 Intake Total 700 Balance 700 - Medications Medications: Current Medications Acetaminophen (Tylenol 325mg Tab) 650 mg PO Q4 PRN PRN Reason: Pain, Mild (1-3) Last Admin: 10/01/18 12:53 Dose: 650 mg Acetaminophen (Tylenol 325mg Tab) 650 mg PO Q4 PRN PRN Reason: Fever >100.4 F Albuterol/Ipratropium (Duoneb 3 Mg/0.5 Mg (3 Ml) Ud) 3 ml INH RQ6 PRN PRN Reason: Wheezing Atorvastatin Calcium (Lipitor) 20 mg PO DAILY [facility] Last Admin: 10/01/18 11:06 Dose: 20 mg Haloperidol Lactate (Haldol) 1 mg IM Q6 PRN PRN Reason: Agitation Last Admin: 09/28/18 22:01 Dose: 1 mg Labetalol HCl (Trandate) 300 mg PO BID [facility] Last Admin: 10/01/18 17:04 Dose: Not Given Lactobacillus Acidophilus (Bacid Acidophilus) 1 cap PO BID [facility] Last Admin: 10/01/18 17:04 Dose: Not Given Loperamide HCl (Imodium) 2 mg PO Q6 PRN PRN Reason: Loose stools Memantine (Namenda) 5 mg PO DAILY [facility] Last Admin: 10/01/18 11:06 Dose: 5 mg Mirtazapine (Remeron) 15 mg PO HS [facility] Last Admin: 10/01/18 21:49 Dose: 15 mg Pantoprazole Sodium (Protonix Ec Tab) 40 mg PO DAILY [facility] Last Admin: 10/01/18 11:07 Dose: 40 mg Sevelamer Carbonate (Renvela) 800 mg PO TID [facility] Last Admin: 10/01/18 17:04 Dose: Not Given Vitamin B Complex/Vit C/Folic Acid (Nephro-Valentino) 1 tab PO DAILY [facility] Last Admin: 10/01/18 11:07 Dose: 1 tab - Labs Labs: 09/27/18 10:30 09/27/18 10:30 Assessment and Plan (1) Chronic kidney disease with end stage renal failure on dialysis Status: Acute (2) Altered mental status Status: Acute (3) Pulmonary HTN Status: Acute (4) Rectal fistula Status: Acute (5) CHF (congestive heart failure) Status: Chronic (6) Dyslipidemia Status: Chronic - Assessment and Plan (Free Text) Plan: Hospice Care Consult Continue Current Care
[2018-10-02] MEDS: Lactobacillus Acidophilus 500 MU Cap PO SCH ×2 (09:27→16:37)
[2018-10-02] MEDS: Multivitamin Vitamin B Complex (Nephro-Vite) Tab PO SCH (09:29)
[2018-10-02] MEDS: Pantoprazole 40 mg EC Tab PO SCH (09:30)
--- NOTE | 2018-10-02 10:23 | CP.PCM.PN ---
Subjective - Date & Time of Evaluation Date of Evaluation: 10/02/18 Time of Evaluation: 10:22 - Subjective Subjective: Nephrology Consultation Note: Assessment: stable A flutter with RVR fluid overload Altered mental status End stage renal disease on hemodialysis via AVF MWF Anemia, Hyperphosphatemia, Secondary hyperparathyroidism, HTN, dementia non compliance with HD aortic stenosis/sclerosis Plan: HD MWF. Continue with Nephrovite 1 tab/day. no need for STEWART Continue with phos binders BP control with meds as ordered. Dose meds/antibiotics (if needed) for ESRD status. Avoid fleets enema/magnesium based laxatives. cardiology following s: seen and examined , wants to wait for hospice evaluation before beign dialysed today Physical Examination: General Appearance: Comfortable, in no acute respiratory distress, ill appearing Vitals reviewed and noted Head; Atraumatic, normocephalic ENT: no ulcers no thrush. Tongue is midline. Oropharynx: no rash or ulcers. Neck; supple no lymphadenopathy, no thyromegaly or bruit Lungs: Normal respiratory rate/effort. Breath sounds bilateral equal Heart: Increased rate. s1s2 normal. No rub or gallop. Extremities: trace edema. No varicose veins Neurological: Patient is still AMS status but more awake and follow commands Skin: Warm and dry. Normal turgor. Abdomen: Abdomen is soft. Bowel sounds +. There is no abdominal tenderness, no guarding/rigidity or organomegaly Psych: deferred MSK: no joint tenderness or swelling. Digits and nails normal, no deformity : kidney or bladder not palpable Access: AVF Objective - Vital Signs/Intake and Output Vital Signs (last 24 hours): Temp Pulse Resp BP Pulse Ox 97.4 F L 115 H 20 109/56 L 95 10/02/18 08:38 10/02/18 08:38 10/02/18 08:38 10/02/18 08:38 10/02/18 08:38 - Medications Medications: Current Medications Acetaminophen (Tylenol 325mg Tab) 650 mg PO Q4 PRN PRN Reason: Pain, Mild (1-3) Last Admin: 10/01/18 12:53 Dose: 650 mg Acetaminophen (Tylenol 325mg Tab) 650 mg PO Q4 PRN PRN Reason: Fever >100.4 F Albuterol/Ipratropium (Duoneb 3 Mg/0.5 Mg (3 Ml) Ud) 3 ml INH RQ6 PRN PRN Reason: Wheezing Atorvastatin Calcium (Lipitor) 20 mg PO DAILY [facility] Last Admin: 10/02/18 09:28 Dose: 20 mg Haloperidol Lactate (Haldol) 1 mg IM Q6 PRN PRN Reason: Agitation Last Admin: 09/28/18 22:01 Dose: 1 mg Labetalol HCl (Trandate) 300 mg PO BID [facility] Last Admin: 10/02/18 09:30 Dose: 300 mg Lactobacillus Acidophilus (Bacid Acidophilus) 1 cap PO BID [facility] Last Admin: 10/02/18 09:27 Dose: 1 cap Loperamide HCl (Imodium) 2 mg PO Q6 PRN PRN Reason: Loose stools Memantine (Namenda) 5 mg PO DAILY [facility] Last Admin: 10/02/18 09:28 Dose: 5 mg Mirtazapine (Remeron) 15 mg PO HS [facility] Last Admin: 10/01/18 21:49 Dose: 15 mg Pantoprazole Sodium (Protonix Ec Tab) 40 mg PO DAILY [facility] Last Admin: 10/02/18 09:30 Dose: 40 mg Sevelamer Carbonate (Renvela) 800 mg PO TID [facility] Last Admin: 10/02/18 09:30 Dose: 800 mg Vitamin B Complex/Vit C/Folic Acid (Nephro-Valentino) 1 tab PO DAILY [facility] Last Admin: 10/02/18 09:29 Dose: 1 tab - Labs Labs: 09/27/18 10:30 09/27/18 10:30
--- NOTE | 2018-10-02 11:25 | CP.PCM.PN ---
Subjective - Date & Time of Evaluation Date of Evaluation: 10/02/18 Time of Evaluation: 09:30 - Subjective Subjective: examined patient in bed. Objective - Vital Signs/Intake and Output Vital Signs (last 24 hours): Temp Pulse Resp BP Pulse Ox 97.4 F L 115 H 20 109/56 L 95 10/02/18 08:38 10/02/18 08:38 10/02/18 08:38 10/02/18 08:38 10/02/18 08:38 - Medications Medications: Current Medications Acetaminophen (Tylenol 325mg Tab) 650 mg PO Q4 PRN PRN Reason: Pain, Mild (1-3) Last Admin: 10/01/18 12:53 Dose: 650 mg Acetaminophen (Tylenol 325mg Tab) 650 mg PO Q4 PRN PRN Reason: Fever >100.4 F Albuterol/Ipratropium (Duoneb 3 Mg/0.5 Mg (3 Ml) Ud) 3 ml INH RQ6 PRN PRN Reason: Wheezing Atorvastatin Calcium (Lipitor) 20 mg PO DAILY [facility] Last Admin: 10/02/18 09:28 Dose: 20 mg Haloperidol Lactate (Haldol) 1 mg IM Q6 PRN PRN Reason: Agitation Last Admin: 09/28/18 22:01 Dose: 1 mg Labetalol HCl (Trandate) 300 mg PO BID [facility] Last Admin: 10/02/18 09:30 Dose: 300 mg Lactobacillus Acidophilus (Bacid Acidophilus) 1 cap PO BID [facility] Last Admin: 10/02/18 09:27 Dose: 1 cap Loperamide HCl (Imodium) 2 mg PO Q6 PRN PRN Reason: Loose stools Memantine (Namenda) 5 mg PO DAILY [facility] Last Admin: 10/02/18 09:28 Dose: 5 mg Mirtazapine (Remeron) 15 mg PO HS [facility] Last Admin: 10/01/18 21:49 Dose: 15 mg Pantoprazole Sodium (Protonix Ec Tab) 40 mg PO DAILY [facility] Last Admin: 10/02/18 09:30 Dose: 40 mg Sevelamer Carbonate (Renvela) 800 mg PO TID [facility] Last Admin: 10/02/18 09:30 Dose: 800 mg Vitamin B Complex/Vit C/Folic Acid (Nephro-Valentino) 1 tab PO DAILY [facility] Last Admin: 10/02/18 09:29 Dose: 1 tab - Labs Labs: 09/27/18 10:30 09/27/18 10:30 - Constitutional Appears: Confused, Chronically Ill - Head Exam Head Exam: ATRAUMATIC, NORMAL INSPECTION, NORMOCEPHALIC - Eye Exam Eye Exam: Normal appearance - ENT Exam ENT Exam: Mucous Membranes Moist - Neck Exam Neck Exam: Normal Inspection - Respiratory Exam Respiratory Exam: Decreased Breath Sounds - Cardiovascular Exam Cardiovascular Exam: Tachycardia - GI/Abdominal Exam GI & Abdominal Exam: Soft - Extremities Exam Extremities Exam: Normal Inspection - Neurological Exam Neurological Exam: Altered - Psychiatric Exam Psychiatric exam: Flat Affect - Skin Skin Exam: Dry, Warm Additional comments: areas of discoloration Assessment and Plan - Assessment and Plan (Free Text) Assessment: Palliative Care Examined patient in bed. Patient confused, receiving O2 via NC. Goals of Care: Patient family has decided on Hospice and will have Hospice eval today. As per Primary RN patient son requesting that dialysis be held at this time pending hospice eval. CODE STATUS: Patient DNR/DNI. family verbalized understanding of code status. Impression * altered mental status * ESRD * non Compliance with HD Suggestion * reorient and redirect as needed * Assist with repositioning and ADLs * Hospice Eval * Agree with DNR/DNI Palliative Care will remain onboard as needed Time Spent with patient 30min
[2018-10-02 12:45] VITALS: PULSE 113
[2018-10-02 15:47] VITALS: BP 110/71; RESP 18; TEMP 97.3; O2SAT 99
--- NOTE | 2018-10-04 00:21 | CP.PCM.DIS ---
Provider - Provider Date of Admission: 09/27/18 08:44 Attending physician: Tiny Martines MD Consults: 09/25/18 18:42 Nephrology Consult Stat Comment: Consulting Provider: Fredis 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ing Physician: Fredis Benedict Reason for Consult: missed HD w mild hyperkalemia 09/27/18 15:36 Cardiology Consult Routine Comment: Consulting Provider: Jose L Barksdale Consulting Physician: Jose L Barksdale Reason for Consult: afib sob tachycardia 09/30/18 09:06 Palliative Care Consult Routine Comment: Consulting Provider: Vianey Washington Physician Instructions: Reason For Exam: esrd Time Spent in preparation of Discharge (in minutes): 25 Diagnosis - Discharge Diagnosis (1) Chronic kidney disease with end stage renal failure on dialysis Status: Acute Priority: High (2) Altered mental status Status: Acute Priority: High (3) Pulmonary HTN Status: Acute Priority: High (4) CHF (congestive heart failure) Status: Chronic (5) Dyslipidemia Status: Chronic Priority: Medium (6) Tachycardia Status: Acute (7) Dementia Status: Chronic Hospital Course - Lab Results Lab Results: Most Recent Lab Values WBC 4.7 K/uL (4.8-10.8) L 09/27/18 10:30 RBC 4.64 Mil/uL (3.80-5.20) 09/27/18 10:30 Hgb 13.9 g/dL (12.0-16.0) 09/27/18 10:30 Hct 43.8 % (34.0-47.0) 09/27/18 10:30 MCV 94.4 fl (81.0-99.0) 09/27/18 10:30 MCH 30.0 pg (27.0-31.0) 09/27/18 10:30 MCHC 31.7 g/dL (33.0-37.0) L 09/27/18 10:30 RDW 20.2 % (11.5-14.5) H 09/27/18 10:30 Plt Count 75 K/uL (130-400) L 09/27/18 10:30 MPV 11.0 fl (7.2-11.7) 09/26/18 06:15 Neut % (Auto) 57.8 % (50.0-75.0) 09/26/18 06:15 Lymph % (Auto) 20.8 % (20.0-40.0) 09/26/18 06:15 [place] % (Auto) 19.6 % (0.0-10.0) H 09/26/18 06:15 Eos % (Auto) 1.4 % (0.0-4.0) 09/26/18 06:15 Baso % (Auto) 0.4 % (0.0-2.0) 09/26/18 06:15 Neut # (Auto) 3.6 K/uL (1.8-7.0) 09/26/18 06:15 Lymph # (Auto) 1.3 K/uL (1.0-4.3) 09/26/18 06:15 [place] # (Auto) 1.2 K/uL (0.0-0.8) H 09/26/18 06:15 Eos # (Auto) 0.1 K/uL (0.0-0.7) 09/26/18 06:15 Baso # (Auto) 0.0 K/uL (0.0-0.2) 09/26/18 06:15 pCO2 46 mm/Hg (35-45) H 09/30/18 09:42 pO2 75 mm/Hg (80-100) L 09/30/18 09:42 HCO3 25.3 mmol/L (21-28) 09/30/18 09:42 ABG pH 7.37 (7.35-7.45) 09/30/18 09:42 ABG Total CO2 28.0 mmol/L (22-28) 09/30/18 09:42 ABG O2 Saturation 95.5 % (95-98) 09/30/18 09:42 ABG O2 Content 20.2 ML/dL (15-23) 09/30/18 09:42 ABG Base Excess 0.7 mmol/L (-2.0-3.0) 09/30/18 09:42 ABG Hemoglobin 15.5 g/dL (11.7-17.4) 09/30/18 09:42 ABG Carboxyhemoglobin 1.9 % (0.5-1.5) H 09/30/18 09:42 POC ABG HHb (Measured) 4.4 % (0.0-5.0) 09/30/18 09:42 ABG Methemoglobin 1.2 % (0.0-3.0) 09/30/18 09:42 ABG O2 Capacity 21.2 mL/dL (16-24) 09/30/18 09:42 Nacho Test Yes 09/30/18 09:42 A-a O2 Difference 17.0 mm/Hg 09/30/18 09:42 Hgb O2 Saturation 92.5 % (95.0-98.0) L 09/30/18 09:42 FiO2 21.0 % 09/30/18 09:42 Sodium 136 mmol/l (132-148) 09/27/18 10:30 Potassium 4.5 MMOL/L (3.6-5.0) 09/27/18 10:30 Chloride 96 mmol/L (98-107) L 09/27/18 10:30 Carbon Dioxide 25 mmol/L (22-30) 09/27/18 10:30 Anion Gap 20 (10-20) 09/27/18 10:30 BUN 48 mg/dl (7-17) H 09/27/18 10:30 Creatinine 4.8 mg/dl (0.7-1.2) H 09/27/18 10:30 Est GFR ( Amer) 11 09/27/18 10:30 Est GFR (Non-Af Amer) 9 09/27/18 10:30 Random Glucose 155 mg/dL (65-105) H 09/27/18 10:30 Calcium 8.5 mg/dL (8.4-10.2) 09/27/18 10:30 Total Bilirubin 2.0 mg/dl (0.2-1.3) H 09/26/18 06:15 AST 60 U/L (14-36) H D 09/26/18 06:15 ALT 44 U/L (9-52) 09/26/18 06:15 Alkaline Phosphatase 338 U/L (38-126) H 09/26/18 06:15 Ammonia 55 umol/L (9-33) H 09/30/18 12:20 Troponin I 0.0490 ng/mL (0.00-0.120) 09/26/18 14:10 Total Protein 6.4 G/DL (6.3-8.2) 09/26/18 06:15 Albumin 3.7 g/dL (3.5-5.0) 09/26/18 06:15 Globulin 2.7 gm/dL (2.2-3.9) 09/26/18 06:15 Albumin/Globulin Ratio 1.4 (1.0-2.1) 09/26/18 06:15 TSH 3rd Generation 4.81 mIU/ML (0.46-4.68) H 09/26/18 06:15 Discharge Exam - Head Exam Head Exam: ATRAUMATIC, NORMAL INSPECTION, NORMOCEPHALIC Discharge Plan - Discharge Medications Prescriptions: Haloperidol [Haldol] 1 mg PO Q6 #30 tab - Follow Up Plan Condition: FAIR Disposition: HOSPICE - HOME Instructions: Altered Mental Status (DC), Atrial Flutter (DC), End Stage Kidney Disease (DC) Additional Instructions: discharge to home hospice Referrals: Fredis Benedict MD [Staff Provider] -
== END 2018-10-02 16:50 | disposition hospice, home (50) | DRG 308 ==
LOC: H.ER 16:16 → H.ERHOLD 18:41 → H.TEL 22:41 → OBSVTOIN 09-27 08:44
PROVIDERS: ADMIT Internal Medicine; ATTEND Internal Medicine
PROC: 5A1D70Z Performance of Urinary Filtration, Intermittent, Less than 6 Hours Per Day (ICD-10-PCS; principal; 2018-09-26)
DX: I48.92 Unspecified atrial flutter (principal); N18.6 End stage renal disease; I13.2 Hypertensive heart and chronic kidney disease with heart failure and with stage 5 chronic kidney disease, or end stage renal disease; N25.81 Secondary hyperparathyroidism of renal origin; I50.22 Chronic systolic (congestive) heart failure; E78.5 Hyperlipidemia, unspecified; I27.20 Pulmonary hypertension, unspecified; G30.9 Alzheimer's disease, unspecified; F02.80 Dementia in other diseases classified elsewhere, unspecified severity, without behavioral disturbance, psychotic disturbance, mood disturbance, and anxiety; Z99.2 Dependence on renal dialysis; Z91.15 Patient's noncompliance with renal dialysis; E87.70 Fluid overload, unspecified; E83.39 Other disorders of phosphorus metabolism; E87.5 Hyperkalemia; R74.8 Abnormal levels of other serum enzymes; F41.9 Anxiety disorder, unspecified; Z66 Do not resuscitate; I35.0 Nonrheumatic aortic (valve) stenosis; D64.9 Anemia, unspecified; E78.00 Pure hypercholesterolemia, unspecified; Z88.1 Allergy status to other antibiotic agents